=== PATIENT | male | born 1945 | race Caucasian/White ===

== ENCOUNTER 2020-07-15 09:54 | Outpatient (REF) | payer OTHER, MEDICARE, SELFPAY ==
[2020-07-15 11:20] LABS: Anion Gap 14 (12-20); Blood Urea Nitrogen 50 mg/dL (9-16); Calcium 8.8 mg/dL (8.4-10.2); Carbon Dioxide 20 mmol/L (22-29); Chloride 110 mmol/L (96-108); Estimated Glomerular Filt Rate 18; Sodium 139 mmol/L (135-145)
== END 2020-07-15 09:55 | disposition home or self-care (01) ==
LOC: HO.10HDL 09:54
PROVIDERS: Visit Provider Internal Medicine Hypertension Specialist
DX: N18.9 Chronic kidney disease, unspecified (principal); D63.1 Anemia in chronic kidney disease
CPT/HCPCS: 36415; 80051; 82310; 82565; 84520

== ENCOUNTER 2020-08-11 10:26 | Outpatient (REF) | payer OTHER, MEDICARE, SELFPAY ==
[2020-08-11 14:11] LABS: Anion Gap 16 (12-20); Blood Urea Nitrogen 45 mg/dL (9-16); Chloride 110 mmol/L (96-108); Estimated Glomerular Filt Rate 18; Potassium 5.5 mmol/l (3.3-5.1); Sodium 141 mmol/L (135-145)
[2020-08-11 14:21] LABS: Carbon Dioxide 21 mmol/L (22-29)
[2020-08-11 14:30] LABS: Prostate Specific Antigen < 0.05 ng/mL (<0.05-4.0)
== END 2020-08-11 10:27 | disposition home or self-care (01) ==
LOC: HO.10HDL 10:26
PROVIDERS: Visit Provider Internal Medicine Hypertension Specialist
DX: I12.9 Hypertensive chronic kidney disease with stage 1 through stage 4 chronic kidney disease, or unspecified chronic kidney disease (principal); D63.1 Anemia in chronic kidney disease; N18.4 Chronic kidney disease, stage 4 (severe); C61 Malignant neoplasm of prostate
CPT/HCPCS: 80051; 82565; 84153; 84520

== ENCOUNTER 2020-08-14 13:27 | Outpatient (REF) | payer OTHER, MEDICARE, SELFPAY ==
[2020-08-14 14:33] LABS: MANUAL DIFF FLAG NO
[2020-08-14 14:39] LABS: Basophils Percent Auto 0.5 % (0-2); Eosinophils Absolute Auto 0.5 X10*3/uL (0.0-0.4); Eosinophils Percent Auto 6.6 % (0-4); Hematocrit 32.6 % (42-52); Hemoglobin 10.3 g/dl (14.0-18.0); Imm Gran Abs Auto 0.01 X10*3/uL (0.00-0.03); Imm Gran Pct Auto 0.1 % (0.0-0.4); Lymphocytes Absolute Auto 1.7 X10*3/uL (1.2-4.9); Lymphocytes Percent Auto 22.8 % (20-40); Mean Corpuscular HGB Conc 31.6 g/dl (31.0-36.0); Mean Corpuscular Hemoglobin 29.2 pg (27.0-33.0); Mean Corpuscular Volume 92.4 fL (80-98); Mean Platelet Volume 10.3 fL (9.4-12.4); Monocytes Absolute Auto 0.6 X10*3/uL (0.1-1.2); Monocytes Percent Auto 7.9 % (2-11); Neutrophils Absolute Auto 4.6 X10*3/uL (2.0-8.3); Neutrophils Percent Auto 62.1 % (45-73); Platelet Count 322 X10*3/uL (160-400); Red Blood Count 3.53 X10*6/uL (4.60-5.80); Red Cell Distribution Width 15.2 % (11.0-16.0); White Blood Count 7.4 X10*3/uL (4.8-10.8)
[2020-08-14 14:57] LABS: Albumin Level 3.9 g/dL (3.5-5.0); Anion Gap 16 (12-20); Blood Urea Nitrogen 51 mg/dL (9-16); Calcium 8.2 mg/dL (8.4-10.2); Carbon Dioxide 19 mmol/L (22-29); Chloride 109 mmol/L (96-108); Estimated Glomerular Filt Rate 17; Iron 62 mcg/dL (45-160); Percent Iron Saturation 22 % (15-50); Phosphorus 4.5 mg/dL (2.7-4.5); Potassium 5.2 mmol/l (3.3-5.1); Sodium 139 mmol/L (135-145); Total Iron Binding Capacity 280 mcg/dL (228-428); Unsaturated Iron Binding 218 ug/dL
[2020-08-14 15:17] LABS: Ferritin 53 ng/mL (20-250)
== END 2020-08-14 13:28 | disposition home or self-care (01) ==
LOC: HO.LAB 13:27
PROVIDERS: PCP Internal Medicine; Visit Provider Internal Medicine Hypertension Specialist
DX: N18.9 Chronic kidney disease, unspecified (principal); D63.1 Anemia in chronic kidney disease
CPT/HCPCS: 36415; 80051; 82040; 82310; 82565; 82728; 83540; 83735; 84100; 84520; 85025

== ENCOUNTER 2020-09-12 15:22 | Emergency (ER) | payer OTHER, SELFPAY ==
--- NOTE | 2020-09-12 | XR_ITS ---
EXAMINATION: XR SHOULDER, RIGHT CLINICAL INFORMATION: Fall. Pain. COMPARISON: None TECHNIQUE: Four views of the right shoulder. FINDINGS: There is a transverse fracture through the surgical neck of the humerus with anterior displacement of the distal fracture fragment. There is a comminuted fracture through the base of the greater tuberosity of the humeral head. Humeral head remains normally articulated with the glenoid. Acromioclavicular joint is maintained. XR/XR shoulder RT min 2V IMPRESSION: Comminuted fracture of the proximal humeral neck and head.
[2020-09-12 15:32] VITALS: BP 139/69; PULSE 90; RESP 18; TEMP 36.7; O2SAT 99; BMI 22.9
--- NOTE | 2020-09-12 16:50 | ED.UPPEXIN ---
HPI - Extremity Injury (Upper) General Chief Complaint: Fall Stated Complaint: FALL Time Seen by Provider: 09/12/20 16:49 Source: patient Mode of arrival: ambulatory Limitations: no limitations History of Present Illness HPI narrative: pleasant 75-year-old male who is very active and independent presents ambulatory via triage with complaint of right shoulder pain status post fall that occurred yesterday. States he stepped on a step stool to put a star on the [place] tree and lost his footing fell onto the right shoulder has been having pain in the shoulder since. He denies any other injury. Denies any head neck or torso injury/pain. Denies taking blood thinners. Denies any lower extremity pain. MD complaint: injury to: right and shoulder Onset (ago): day(s) Other injuries: none Handedness: right Place: home Relieving factors: cold therapy and immobilization Exacerbating factors: movement of extremity Context: fall Associated symptoms: denies other symptoms Related Data Home Medications Medication Instructions Recorded Confirmed insulin glargine 100 unit/mL (3 10 unit SUBCUT BEDTIME ml 09/02/20 mL) subcutaneous pen Previous Rx's Medication Instructions Recorded blood sugar diagnostic #100 ea 07/25/20 allopurinol 100 mg tablet 100 mg PO DAILY #90 tab 09/03/20 insulin glargine 100 unit/mL (3 10 unit SUBCUT BEDTIME #3 ml 09/03/20 mL) subcutaneous pen amlodipine 10 mg tablet 10 mg PO DAILY #90 tab 09/08/20 sitagliptin 100 mg tablet 100 mg PO DAILY #90 tab 09/08/20 oxycodone 2.5 mg PO BID PRN #14 tab 09/12/20 Allergies Allergy/AdvReac Type Severity Reaction Status Date / Time No Known Allergies Allergy Unverified 06/26/20 16:27 [No Known Allergies*] Pt states no known allergy Allergy Unknown Uncoded 02/21/20 00:00 Review of Systems Review of Systems: Constitutional: No Weight loss, No Fever, No Chills, No Night Sweats, No Fatigue, No Malaise ENT/Mouth: No Hearing loss, No Ear Pain, No Nasal Congestion, No Sinus Pain, No Hoarseness, No sore throat, No Rhinorrhea, No Swallowing Difficulty Eyes: No Eye Pain, No Swelling, No Redness, No Foreign Body, No Discharge, No Vision Changes Cardiovascular: No Chest Pain, No SOB, No Dyspnea on Exertion, No Orthopnea, No Edema, No Palpitations Respiratory: No Cough, No Sputum, No Wheezing, No Smoke Exposure, No Dyspnea Gastrointestinal: No Nausea, No Vomiting, No Diarrhea, No Constipation, No abdominal Pain, No Hematochezia, No Melena Genitourinary: no irregular bleeding, No Dysuria, No Urinary Frequency, No Hematuria, No Urinary Incontinence, No Urgency, No Flank Pain, No Urinary Flow Changes, No Hesitancy Musculoskeletal: As noted in HPI Skin: No Skin Lesions, No rash Neuro: No Weakness, No Numbness, No Paresthesias, No Loss of Consciousness, No Dizziness, No Headache Psych: No Social Issues Heme/Lymph: No Bruising, No Bleeding,No Lymphadenopathy Endocrine: No Polyuria, No Polydipsia, No Temperature Intolerance Yes all other systems are reviewed and are negative [facility] Past Medical History Medical History (Updated 09/12/20 @ 19:06 by Tera Smith NP) Diabetes Social History Social History Alcohol intake: never Smoking Status: Never smoker Use of substances other than those prescribed or required for medical reasons: No Advance Directives: No Advance Directives Information Provided: Yes Physical Exam Vital Signs: Vital Signs: Last Vital Signs Temp 97.7 F 09/12/20 18:00 Pulse 81 09/12/20 18:00 Resp 16 09/12/20 18:00 BP 131/70 09/12/20 18:00 Pulse Ox 96 09/12/20 18:00 Body Mass Index 22.9 Reviewed Const: General: cooperative and healthy appearing; No acute distress or intoxicated appearing Nutritional Appearance: average body habitus Orientation/consciousness: patient oriented x3 HENMT: Head: Yes normal to inspection Ears: hearing grossly normal bilaterally Eyes: General: appearance normal, both eyes and all related structures Visual Rudolph: normal visual rudolph by confrontation Neck: Neck: Yes normal visual inspection and No tender Thyroid: Thyroid normal Chest: Chest palpation & inspection: normal inspection of the chest Resp: Effort & Inspection: normal respiratory effort Cardio: Jugular venous distension: no JVD GI: Inspection: Yes normal to inspection Percussion: Yes normal to percussion Auscultation: normal bowel sounds : General: Yes no CVA tenderness Back/Spine/Pelvis: Back: no CVA tenderness Skin: General skin exam: no rashes or lesions noted Neuro: General: patient oriented x3 Extrem: General: Yes normal to inspection Shoulder/upper arm images: 1. with diffuse slight swelling and tender palpation. Has arm and semi flexed position. Distally neurovascularly intact. Able to move fully at the elbow without pain. Cap refill less than 2 seconds. MDM - Extremity Injury (Upper) MDM Narrative Medical decision making narrative: Case discussed with orthopedic on-call Soledad SPAULDING/ attending Carmen. Recommendation for arm sling and CT for procedural planning can be discharged home with pain management and outpatient follow-up for intervention. Patient comfortable given 5 mg oxycodone here states this helped significantly. He is requesting a script for home will advise him to take this very cautiously given that this can increase the sedative risk/ fall for further injury. he will take half a tablet for pain. Supplement for Tylenol. Shoulder mobilizer given. Will follow up with orthopedics on Tuesday. Imaging Data Right shoulder CT: Radiologist's impression: [place] [id number] CT Scan Report Signed Patient: Jorge Wilder JMR#: [id number] : 4Acct:[id number] Age/Sex: 75 / MADM Date: 09/12/20 Loc: HO.ED Attending Dr: Ordering Physician: Tera Smith NP Date of Service: 09/12/20 Procedure(s): CT shoulder RT wo con Accession Number(s): [id number] cc: Tera Smith NP~ EXAMINATION: CT SHOULDER WITHOUT CONTRAST, RIGHT CLINICAL INFORMATION: Fall. Humeral fracture. COMPARISON: Prior plain film exam of the right shoulder today TECHNIQUE: Axial images obtained through the shoulder. Coronal and sagittal reformatted images are performed at CT scanner This CT examination was performed using dose optimization techniques as appropriate, variously including the following: *Automated exposure control *Adjustment of mA and/or kV according to patient size (this includes techniques or standardized protocols for targeted exams where dose is matched to indication/reason for exam; i.e. extremities or head) *Use of iterative reconstruction technique DLP: 300 mGy-cm FINDINGS: There is a comminuted fracture of the proximal humerus. Fracture extends to the surgical neck and through the humerus to the base of the greater and lesser tuberosities. The articular surface of the humerus remains intact. There is normal articulation between the humerus and the glenoid. No fracture of the scapula or of the distal clavicle. CT/CT shoulder RT wo con IMPRESSION: Comminuted fracture of the proximal right humerus. Dictated By:HARSH WASSERMAN MD Signed By:<Electronically signed by HARSH WASSERMAN MD in OV>09/12/20 1825 DD/ 1717 TD/TT: Malware Analyst: SUKUMAR Discharge Plan Discharge Clinical Impression: Closed fracture of shoulder Qualifiers: Encounter type: initial encounter Laterality: right Qualified Code(s): S42.91XA - Fracture of right shoulder girdle, part unspecified, initial encounter for closed fracture Patient Disposition: Home, Self-Care Instructions: Arm Fracture in Adults (ED), Shoulder Immobilizer (ED) Prescriptions: New oxycodone 5 mg tablet 2.5 mg PO BID PRN (Reason: pain) Qty: 14 RF: 0 No Action (DME) FreeStyle Test Strip See Rx Instructions .ROUTE .MEDSUPPLY Qty: 100 RF: 1 insulin glargine 100 unit/mL (3 mL) insulin pen 10 unit subcut BEDTIME RF: 0 insulin glargine [Lantus Solostar U-100 Insulin] 100 unit/mL (3 mL) insulin pen 10 unit subcut BEDTIME Qty: 3 RF: 2 allopurinol 100 mg tablet 100 mg PO DAILY Qty: 90 RF: 1 sitagliptin [Januvia] 100 mg tablet 100 mg PO DAILY Qty: 90 RF: 1 amlodipine 10 mg tablet 10 mg PO DAILY Qty: 90 RF: 1 Referrals: Luiz Morales MD [Physician] - 3 days Interventions: ED Discharge Assessment Last Done: 09/12/20 19:39 Discharge Date/Time: 09/12/20 19:40
--- NOTE | 2020-09-12 17:17 | CT_ITS ---
EXAMINATION: CT SHOULDER WITHOUT CONTRAST, RIGHT CLINICAL INFORMATION: Fall. Humeral fracture. COMPARISON: Prior plain film exam of the right shoulder today TECHNIQUE: Axial images obtained through the shoulder. Coronal and sagittal reformatted images are performed at CT scanner This CT examination was performed using dose optimization techniques as appropriate, variously including the following: *Automated exposure control *Adjustment of mA and/or kV according to patient size (this includes techniques or standardized protocols for targeted exams where dose is matched to indication/reason for exam; i.e. extremities or head) *Use of iterative reconstruction technique DLP: 300 mGy-cm FINDINGS: There is a comminuted fracture of the proximal humerus. Fracture extends to the surgical neck and through the humerus to the base of the greater and lesser tuberosities. The articular surface of the humerus remains intact. There is normal articulation between the humerus and the glenoid. No fracture of the scapula or of the distal clavicle. CT/CT shoulder RT wo con IMPRESSION: Comminuted fracture of the proximal right humerus.
[2020-09-12] MEDS: oxyCODONE HCl Immed Release 5 MG TABLET PO (17:56)
[2020-09-12 18:00] VITALS: BP 131/70; PULSE 81; RESP 16; TEMP 36.5; O2SAT 96
== END 2020-09-12 19:40 | disposition home or self-care (01) ==
PROVIDERS: Emergency Provider Emergency Medicine; PCP Internal Medicine
DX: S42.91XA Fracture of right shoulder girdle, part unspecified, initial encounter for closed fracture (principal); M25.511 Pain in right shoulder; W01.0XXA Fall on same level from slipping, tripping and stumbling without subsequent striking against object, initial encounter; Y93.9 Activity, unspecified; Y92.009 Unspecified place in unspecified non-institutional (private) residence as the place of occurrence of the external cause; Y99.9 Unspecified external cause status; Z79.899 Other long term (current) drug therapy
CPT/HCPCS: 73030; 73200; 99284

== ENCOUNTER → 2020-09-16 12:06 | Outpatient (BNVA) | payer OTHER, SELFPAY | PROVIDERS: PCP Internal Medicine; Visit Provider Physician Assistant | DX: Z76.89 Persons encountering health services in other specified circumstances (principal) ==

== ENCOUNTER → 2020-09-30 10:14 | Outpatient (BNVA) | payer OTHER, SELFPAY | PROVIDERS: PCP Internal Medicine; Referring Provider Internal Medicine; Visit Provider Urology | DX: Z76.89 Persons encountering health services in other specified circumstances (principal) ==

== ENCOUNTER 2020-10-16 08:14 | Outpatient (REF) | payer OTHER, SELFPAY ==
--- NOTE | 2020-10-16 13:23 | XR_ITS ---
EXAMINATION: XR SHOULDER, RIGHT CLINICAL INFORMATION: Fracture of upper and off right humerus. COMPARISON: Radiographs of the right shoulder done on 09/12/2020. TECHNIQUE: Two views of the right shoulder. FINDINGS: Comminuted fracture is noted within the proximal right humerus. The glenoid humeral alignment is intact. No significant callus formation since the prior study dated 09/12/2020. The acromioclavicular alignment is intact. Small subacromial spur is present. XR/XR shoulder RT min 2V IMPRESSION: 1. Comminuted of right proximal humeral fracture showing no significant callus formation since the prior study dated 09/12/2020. 2. No new abnormalities.
== END 2020-10-16 08:15 | disposition home or self-care (01) ==
LOC: HO.HOSX 08:14
PROVIDERS: Visit Provider Physician Assistant
DX: S42.201D Unspecified fracture of upper end of right humerus, subsequent encounter for fracture with routine healing (principal)
CPT/HCPCS: 73030

== ENCOUNTER 2020-10-23 11:34 | Outpatient (REF) | payer OTHER, SELFPAY ==
[2020-10-23 13:40] LABS: MANUAL DIFF FLAG NO
[2020-10-23 13:47] LABS: Basophils Percent Auto 0.4 % (0-2); Eosinophils Absolute Auto 0.7 X10*3/uL (0.0-0.4); Eosinophils Percent Auto 9.5 % (0-4); Imm Gran Abs Auto 0.02 X10*3/uL (0.00-0.03); Imm Gran Pct Auto 0.3 % (0.0-0.4); Lymphocytes Absolute Auto 1.5 X10*3/uL (1.2-4.9); Lymphocytes Percent Auto 21.9 % (20-40); Mean Corpuscular Hemoglobin 29.5 pg (27.0-33.0); Mean Corpuscular Volume 92.3 fL (80-98); Mean Platelet Volume 10.3 fL (9.4-12.4); Monocytes Absolute Auto 0.6 X10*3/uL (0.1-1.2); Monocytes Percent Auto 9.2 % (2-11); Neutrophils Absolute Auto 4.1 X10*3/uL (2.0-8.3); Neutrophils Percent Auto 58.7 % (45-73); Platelet Count 262 X10*3/uL (160-400); Red Blood Count 2.71 X10*6/uL (4.60-5.80); Red Cell Distribution Width 15.3 % (11.0-16.0)
[2020-10-23 14:15] LABS: Anion Gap 15 (12-20); Blood Urea Nitrogen 38 mg/dL (9-16); Carbon Dioxide 21 mmol/L (22-29); Chloride 109 mmol/L (96-108); Estimated Glomerular Filt Rate 18; Iron 41 mcg/dL (45-160); Percent Iron Saturation 16 % (15-50); Potassium 4.9 mmol/l (3.3-5.1); Sodium 140 mmol/L (135-145); Total Iron Binding Capacity 256 mcg/dL (228-428); Unsaturated Iron Binding 215 ug/dL; Uric Acid 5.8 mg/dL (3.4-7.0)
[2020-10-23 15:33] LABS: Prostate Specific Antigen < 0.05 ng/mL (<0.05-4.0)
== END 2020-10-23 11:35 | disposition home or self-care (01) ==
LOC: HO.10HDL 11:34
PROVIDERS: Visit Provider Urology
DX: I12.9 Hypertensive chronic kidney disease with stage 1 through stage 4 chronic kidney disease, or unspecified chronic kidney disease (principal); N18.9 Chronic kidney disease, unspecified; D63.1 Anemia in chronic kidney disease; C61 Malignant neoplasm of prostate; Z12.5 Encounter for screening for malignant neoplasm of prostate
CPT/HCPCS: 36415; 80051; 82565; 83540; 84153; 84520; 84550; 85025

== ENCOUNTER 2020-11-24 12:05 | Outpatient (REF) | payer OTHER, SELFPAY ==
[2020-11-24 12:33] LABS: MANUAL DIFF FLAG NO
[2020-11-24 12:36] LABS: Basophils Absolute Auto 0.1 X10*3/uL (0.0-0.2); Basophils Percent Auto 0.7 % (0-2); Eosinophils Absolute Auto 0.6 X10*3/uL (0.0-0.4); Eosinophils Percent Auto 7.9 % (0-4); Hematocrit 30.7 % (42-52); Hemoglobin 9.6 g/dl (14.0-18.0); Imm Gran Abs Auto 0.02 X10*3/uL (0.00-0.03); Imm Gran Pct Auto 0.3 % (0.0-0.4); Lymphocytes Absolute Auto 1.5 X10*3/uL (1.2-4.9); Lymphocytes Percent Auto 20.6 % (20-40); Mean Corpuscular HGB Conc 31.3 g/dl (31.0-36.0); Mean Corpuscular Hemoglobin 29.9 pg (27.0-33.0); Mean Corpuscular Volume 95.6 fL (80-98); Mean Platelet Volume 9.8 fL (9.4-12.4); Monocytes Absolute Auto 0.5 X10*3/uL (0.1-1.2); Monocytes Percent Auto 7.5 % (2-11); Neutrophils Absolute Auto 4.6 X10*3/uL (2.0-8.3); Platelet Count 306 X10*3/uL (160-400); Red Blood Count 3.21 X10*6/uL (4.60-5.80); Red Cell Distribution Width 16.3 % (11.0-16.0); White Blood Count 7.2 X10*3/uL (4.8-10.8)
[2020-11-24 13:20] LABS: Anion Gap 13 (12-20); Blood Urea Nitrogen 35 mg/dL (9-16); Calcium 8.8 mg/dL (8.4-10.2); Carbon Dioxide 24 mmol/L (22-29); Chloride 110 mmol/L (96-108); Estimated Glomerular Filt Rate 18; Iron 45 mcg/dL (45-160); Percent Iron Saturation 16 % (15-50); Potassium 4.9 mmol/L (3.3-5.1); Sodium 142 mmol/L (135-145); Total Iron Binding Capacity 280 mcg/dL (228-428); Unsaturated Iron Binding 235 ug/dL
== END 2020-11-24 12:06 | disposition home or self-care (01) ==
LOC: HO.LAB 12:05
PROVIDERS: PCP Internal Medicine; Visit Provider Internal Medicine Hypertension Specialist
DX: Z13.89 Encounter for screening for other disorder (principal)
CPT/HCPCS: 36415; 80051; 82310; 82565; 83540; 84520; 85025

== ENCOUNTER 2020-11-27 12:26 | Outpatient (REF) | payer OTHER, SELFPAY ==
--- NOTE | ~2020-11-27 | XR_ITS ---
EXAMINATION: XR SHOULDER, RIGHT CLINICAL INFORMATION: Comminuted fracture proximal right humerus. Follow-up. COMPARISON: Radiographs right shoulder 10/16/2020, 09/12/2020 TECHNIQUE: Right shoulder is imaged in 2 views. FINDINGS: Comminuted fracture right humeral head and neck is stable in alignment from prior study. The fracture lines are still visible although slightly less distinct. There is no destructive process. The acromioclavicular alignment is normal. XR/XR shoulder RT min 2V IMPRESSION: No change in alignment comminuted fracture right humeral head and neck.
== END 2020-11-27 12:27 | disposition home or self-care (01) ==
LOC: HO.HOSX 12:26
PROVIDERS: Visit Provider Physician Assistant
DX: S42.201D Unspecified fracture of upper end of right humerus, subsequent encounter for fracture with routine healing (principal); X58.XXXD Exposure to other specified factors, subsequent encounter; E11.9 Type 2 diabetes mellitus without complications; E78.5 Hyperlipidemia, unspecified; C61 Malignant neoplasm of prostate
CPT/HCPCS: 73030

== ENCOUNTER 2020-12-18 11:39 | Outpatient (REF) | payer OTHER, SELFPAY ==
[2020-12-18 14:24] LABS: Anion Gap 11 (12-20); Blood Urea Nitrogen 47 mg/dL (9-16); Calcium 8.6 mg/dL (8.4-10.2); Carbon Dioxide 24 mmol/L (22-29); Chloride 109 mmol/L (96-108); Estimated Glomerular Filt Rate 18; Potassium 5.2 mmol/L (3.3-5.1); Sodium 139 mmol/L (135-145)
[2020-12-18 14:47] LABS: Prostate Specific Antigen < 0.05 ng/mL (<0.05-4.0)
== END 2020-12-18 11:40 | disposition home or self-care (01) ==
LOC: HO.10HDL 11:39
PROVIDERS: Absent Provider Internal Medicine Hypertension Specialist; Visit Provider Urology
DX: C61 Malignant neoplasm of prostate (principal)
CPT/HCPCS: 36415; 80051; 82310; 82565; 84153; 84520

== ENCOUNTER → 2020-12-30 13:12 | Outpatient (BNVA) | payer OTHER, SELFPAY | PROVIDERS: PCP Internal Medicine; Visit Provider Urology | DX: C61 Malignant neoplasm of prostate (principal); M85.80 Other specified disorders of bone density and structure, unspecified site; E11.9 Type 2 diabetes mellitus without complications; I10 Essential (primary) hypertension; Z79.899 Other long term (current) drug therapy | CPT/HCPCS: 96372; J9217 ==

== ENCOUNTER 2021-01-08 09:21 | Outpatient (REF) | payer OTHER, SELFPAY ==
--- NOTE | ~2021-01-08 | XR_ITS ---
EXAMINATION: XR SHOULDER, RIGHT CLINICAL INFORMATION: Fracture of the upper humerus COMPARISON: 11/27/2020 TECHNIQUE: Two views of the right shoulder. FINDINGS: Redemonstration of the right humeral neck fracture. Alignment is unchanged from prior. Callus formation is seen, increased from the prior study. The fracture line remains evident. The glenohumeral joint remains aligned. The acromioclavicular joint is intact with subacromial spurring noted. The visualized lung is clear. The visualized ribs are intact. XR/XR shoulder RT min 2V IMPRESSION: Unchanged alignment of the right humeral neck fracture with continued healing.
== END 2021-01-08 09:22 | disposition home or self-care (01) ==
LOC: HO.HOSX 09:21
PROVIDERS: Visit Provider Physician Assistant
DX: S42.201D Unspecified fracture of upper end of right humerus, subsequent encounter for fracture with routine healing (principal); X58.XXXD Exposure to other specified factors, subsequent encounter
CPT/HCPCS: 73030

== ENCOUNTER 2021-01-08 11:58 | Outpatient (REF) | payer OTHER, SELFPAY ==
[2021-01-08 13:26] LABS: Hematocrit 30.4 % (42-52); Hemoglobin 9.6 g/dl (14.0-18.0); Mean Corpuscular HGB Conc 31.6 g/dl (31.0-36.0); Mean Corpuscular Hemoglobin 29.1 pg (27.0-33.0); Mean Corpuscular Volume 92.1 fL (80-98); Platelet Count 276 X10*3/uL (160-400); Red Cell Distribution Width 14.6 % (11.0-16.0); White Blood Count 9.5 X10*3/uL (4.8-10.8)
[2021-01-08 13:50] LABS: Anion Gap 14 (12-20); Blood Urea Nitrogen 47 mg/dL (9-16); Calcium 8.9 mg/dL (8.4-10.2); Carbon Dioxide 22 mmol/L (22-29); Chloride 109 mmol/L (96-108); Estimated Glomerular Filt Rate 16; Potassium 5.3 mmol/L (3.3-5.1); Sodium 140 mmol/L (135-145)
== END 2021-01-08 11:59 | disposition home or self-care (01) ==
LOC: HO.LAB 11:58
PROVIDERS: PCP Internal Medicine; Visit Provider Internal Medicine Hypertension Specialist
DX: S42.201D Unspecified fracture of upper end of right humerus, subsequent encounter for fracture with routine healing (principal); N18.4 Chronic kidney disease, stage 4 (severe)
CPT/HCPCS: 36415; 80051; 82310; 82565; 84520; 85027

== ENCOUNTER 2021-01-27 11:37 | Outpatient (REF) | payer OTHER, SELFPAY ==
[2021-01-27 13:50] LABS: MANUAL DIFF FLAG NO
[2021-01-27 13:56] LABS: Basophils Percent Auto 0.6 % (0-2); Eosinophils Absolute Auto 0.5 X10*3/uL (0.0-0.4); Eosinophils Percent Auto 7.4 % (0-4); Hematocrit 31.3 % (42-52); Hemoglobin 9.8 g/dl (14.0-18.0); Imm Gran Abs Auto 0.02 X10*3/uL (0.00-0.03); Imm Gran Pct Auto 0.3 % (0.0-0.4); Lymphocytes Absolute Auto 1.3 X10*3/uL (1.2-4.9); Lymphocytes Percent Auto 19.5 % (20-40); Mean Corpuscular HGB Conc 31.3 g/dl (31.0-36.0); Mean Corpuscular Hemoglobin 29.3 pg (27.0-33.0); Mean Corpuscular Volume 93.7 fL (80-98); Mean Platelet Volume 10.2 fL (9.4-12.4); Monocytes Absolute Auto 0.5 X10*3/uL (0.1-1.2); Monocytes Percent Auto 7.6 % (2-11); Neutrophils Absolute Auto 4.2 X10*3/uL (2.0-8.3); Neutrophils Percent Auto 64.6 % (45-73); Platelet Count 278 X10*3/uL (160-400); Red Blood Count 3.34 X10*6/uL (4.60-5.80); Red Cell Distribution Width 15.9 % (11.0-16.0); White Blood Count 6.5 X10*3/uL (4.8-10.8)
[2021-01-27 14:30] LABS: Anion Gap 14 (12-20); Blood Urea Nitrogen 51 mg/dL (9-16); Calcium 8.6 mg/dL (8.4-10.2); Carbon Dioxide 23 mmol/L (22-29); Chloride 108 mmol/L (96-108); Estimated Glomerular Filt Rate 15; Iron 66 mcg/dL (45-160); Percent Iron Saturation 30 % (15-50); Potassium 4.8 mmol/L (3.3-5.1); Sodium 140 mmol/L (135-145); Total Iron Binding Capacity 219 mcg/dL (228-428); Unsaturated Iron Binding 153 ug/dL
[2021-01-27 14:41] LABS: Ferritin 244 ng/mL (20-250)
[2021-01-28 12:56] LABS: Calcium (PTHI) 8.9 mg/dL (8.6-10.3); PTHI 86 pg/mL (14-64)
== END 2021-01-27 11:38 | disposition home or self-care (01) ==
LOC: HO.10HDL 11:37
PROVIDERS: Visit Provider Internal Medicine Hypertension Specialist
DX: N18.5 Chronic kidney disease, stage 5 (principal); D63.1 Anemia in chronic kidney disease
CPT/HCPCS: 36415; 80051; 82310; 82565; 82728; 83540; 83970; 84520; 85025; 88184; 88185

== ENCOUNTER 2021-03-17 11:49 | Outpatient (REF) | payer OTHER, SELFPAY ==
[2021-03-17 12:33] LABS: MANUAL DIFF FLAG NO
[2021-03-17 12:38] LABS: Basophils Percent Auto 0.5 % (0-2); Eosinophils Absolute Auto 0.2 X10*3/uL (0.0-0.4); Eosinophils Percent Auto 3.2 % (0-4); Hematocrit 25.7 % (42-52); Hemoglobin 8.4 g/dl (14.0-18.0); Imm Gran Abs Auto 0.02 X10*3/uL (0.00-0.03); Imm Gran Pct Auto 0.3 % (0.0-0.4); Lymphocytes Absolute Auto 1.2 X10*3/uL (1.2-4.9); Mean Corpuscular HGB Conc 32.7 g/dl (31.0-36.0); Mean Corpuscular Hemoglobin 30.3 pg (27.0-33.0); Mean Corpuscular Volume 92.8 fL (80-98); Mean Platelet Volume 10.2 fL (9.4-12.4); Monocytes Absolute Auto 0.6 X10*3/uL (0.1-1.2); Monocytes Percent Auto 8.7 % (2-11); Neutrophils Absolute Auto 4.4 X10*3/uL (2.0-8.3); Neutrophils Percent Auto 68.3 % (45-73); Platelet Count 239 X10*3/uL (160-400); Red Blood Count 2.77 X10*6/uL (4.60-5.80); Red Cell Distribution Width 15.4 % (11.0-16.0); White Blood Count 6.5 X10*3/uL (4.8-10.8)
[2021-03-17 13:13] LABS: Anion Gap 14 (12-20); Blood Urea Nitrogen 54 mg/dL (9-16); Calcium 9.3 mg/dL (8.4-10.2); Carbon Dioxide 21 mmol/L (22-29); Chloride 111 mmol/L (96-108); Estimated Glomerular Filt Rate 13; Iron 49 mcg/dL (45-160); Percent Iron Saturation 23 % (15-50); Potassium 4.5 mmol/L (3.3-5.1); Sodium 141 mmol/L (135-145); Total Iron Binding Capacity 209 mcg/dL (228-428); Unsaturated Iron Binding 160 ug/dL
[2021-03-17 13:17] LABS: Prostate Specific Antigen < 0.05 ng/mL (<0.05-4.0)
[2021-03-17 13:26] LABS: Ferritin 472 ng/mL (20-250)
[2021-03-21 12:31] LABS: Testosterone, Total 4 ng/dL (250-1100)
== END 2021-03-17 11:50 | disposition home or self-care (01) ==
LOC: HO.LAB 11:49
PROVIDERS: Urology; PCP Internal Medicine; Visit Provider Internal Medicine Hypertension Specialist
DX: D50.8 Other iron deficiency anemias (principal); N18.5 Chronic kidney disease, stage 5; D63.1 Anemia in chronic kidney disease; C61 Malignant neoplasm of prostate; N40.1 Benign prostatic hyperplasia with lower urinary tract symptoms; N13.8 Other obstructive and reflux uropathy; Z12.5 Encounter for screening for malignant neoplasm of prostate
CPT/HCPCS: 36415; 80051; 82310; 82565; 82728; 83540; 84153; 84403; 84520; 85025

== ENCOUNTER → 2021-03-31 11:05 | Outpatient (BNVA) | payer OTHER, MEDICARE, SELFPAY | PROVIDERS: PCP Internal Medicine; Visit Provider Urology ==

== ENCOUNTER → 2021-04-02 12:40 | Outpatient (BNVA) | payer OTHER, MEDICARE, SELFPAY | PROVIDERS: Visit Provider Physician Assistant ==

== ENCOUNTER → 2021-04-15 14:09 | Outpatient (BNVA) | payer OTHER, MEDICARE, SELFPAY | PROVIDERS: PCP Internal Medicine; Referring Provider Internal Medicine; Visit Provider Internal Medicine | DX: E11.22 Type 2 diabetes mellitus with diabetic chronic kidney disease (principal); I12.9 Hypertensive chronic kidney disease with stage 1 through stage 4 chronic kidney disease, or unspecified chronic kidney disease; N18.5 Chronic kidney disease, stage 5; E78.5 Hyperlipidemia, unspecified; R94.39 Abnormal result of other cardiovascular function study | CPT/HCPCS: 93005 ==

== ENCOUNTER 2021-06-30 13:15 | Outpatient (REF) | payer OTHER, MEDICARE, SELFPAY ==
--- NOTE | ~2021-06-30 | MM_ITS ---
EXAMINATION: BONE DENSITOMETRY CLINICAL INDICATION: Other specified disorders of bone density and structure. COMPARISON: This is the patient's baseline examination. TECHNIQUE: Using a [employer] DXA System (software version: 13.1) manufactured by [employer], dual-energy x-ray absorptiometry was performed of the lumbar spine and left hip. The images are of good technical quality. Summary results are attached. FINDINGS: AP SPINE L1-L4 (excluding L3): The data of L1-L4 has been changed to exclude the L3 vertebral body, because degenerative sclerosis at this level may cause overestimation of lumbar spine density. BMD 1.121 g/cm2, Z-score 0.1, T-score -0.7, normal. LEFT FEMUR, NECK: BMD 0.635 g/cm2, Z-score -1.8, T-score -3.3, osteoporosis. LEFT FEMUR, TOTAL: BMD 1.220 g/cm2, Z-score 1.9, T-score 0.8, normal. IDENTIFIED RISK FACTORS: Kidney disease, history of fracture (adult). HISTORY OF FRACTURE: Humerus/shoulder. MEDICATIONS: Vitamin D. MM/XR DEXA axial skeleton IMPRESSION: 1. DIAGNOSIS: Severe osteoporosis based on the lowest T-score value of -3.3 in the femoral neck and fracture history applying World Health Organization criteria. 2. 10-YEAR FRACTURE RISK PREDICTION, FRAX: Major osteoporotic fracture (clinical spine, forearm, hip or shoulder) 20.9%. Hip fracture 10.2%. 3. Treatment Recommendations: NOF guidelines recommend consideration for treatment in postmenopausal women and men age 50 and older presenting with the following: -A hip or vertebral (clinical or morphometric) fracture. -T-score less than or equal to -2.5 at the femoral neck or spine after appropriate evaluation to exclude secondary causes. -Low bone mass at the hip or spine and a 10-year fracture probability by FRAX of greater than or equal to 3% for hip fracture or greater than or equal to 20% for major osteoporotic fracture based on the [place] adapted WHO algorithm. 4. Other Recommendations: All treatment decisions require clinical judgment and consideration of individual patient factors, including patient preferences, comorbidities, previous drug use, risk factors not captured in the FRAX model (e.g. frailty, falls, vitamin D deficiency, increased bone turnover, interval significant decline in bone density) and possible under or overestimation of fracture risk by FRAX. Additional medical evaluation for secondary cause of low bone mineral density may be appropriate. FUTURE SCAN RECOMMENDATION: People with diagnosed cases of osteoporosis or at high risk for fracture should have regular bone mineral density tests. For patients eligible for Medicare, routine testing is allowed once every 2 years. The testing frequency can be increased to one year for patients who have rapidly progressing disease, those who are receiving or discontinuing medical therapy to restore bone mass, or have additional risk factors.
== END 2021-06-30 13:16 | disposition home or self-care (01) ==
LOC: HO.MAMMO 13:15
PROVIDERS: Visit Provider Urology
DX: Z13.820 Encounter for screening for osteoporosis (principal); M85.80 Other specified disorders of bone density and structure, unspecified site; M81.0 Age-related osteoporosis without current pathological fracture; N18.9 Chronic kidney disease, unspecified; Z87.81 Personal history of (healed) traumatic fracture; Z79.899 Other long term (current) drug therapy
CPT/HCPCS: 77080

== ENCOUNTER 2021-07-02 13:41 | Outpatient (REF) | payer OTHER, MEDICARE, SELFPAY ==
--- NOTE | ~2021-07-02 | XR_ITS ---
EXAMINATION: XR SHOULDER, RIGHT CLINICAL INFORMATION: Pain right shoulder COMPARISON: Right shoulder radiograph from 01/08/2021 TECHNIQUE: Two views of the right shoulder. FINDINGS: Redemonstration of a chronic fracture involving the right humeral neck with post fracture deformity. No acute visible fracture or dislocation. Joint spaces and alignment are otherwise maintained. Soft tissues are unremarkable. Visualized portions of the right chest are unremarkable. XR/XR shoulder RT min 2V IMPRESSION: 1. Redemonstration of a chronic fracture involving the right humeral neck with post fracture deformity. 2. No acute visible fracture or dislocation.
== END 2021-07-02 13:42 | disposition home or self-care (01) ==
LOC: HO.HOSX 13:41
PROVIDERS: Visit Provider Physician Assistant
DX: S42.401D Unspecified fracture of lower end of right humerus, subsequent encounter for fracture with routine healing (principal)
CPT/HCPCS: 73030

== ENCOUNTER 2021-07-07 12:00 | Outpatient (RCR) | payer OTHER, SELFPAY ==
--- NOTE | 2020-09-23 13:28 | MHC.PT.EP ---
[facility] [place] Office [place] Office [place] Office [address] Geraldine Sheth [address] [phone] F: [phone] F: [phone] F: [phone] F: [phone] Physical Therapy Plan of Care Date of Evaluation: 09/23/20 Date of Surgery: N/A Diagnosis: fracture of humerus Assessment: pt presents to PT 11 days post-fx. He has poor tolerance of passive ROM and requires assistance from his for all tasks. He does present w/ significant swelling and bruising of R UE and it is unclear if this is improving or worsening since initial injury. pt presents to physical therapy with pain, decreased range of motion, decreased strength, impaired functional mobility, impaired postural awareness, and gait deviations. pt is a fair candidate for skilled PT due to age, potential remediation of impairments, typical disease/condition progression and prognosis, comorbidities, and motivation. pt would benefit from tailored strengthening and stretching exercise program, functional training, postural re-training, neuromuscular re-education, modalities as needed for pain, and equipment safety demonstration. Frequency and Duration: The patient will be seen 2x/wk for 4 wks Short Term Goals: pt will be min A w/ HEP to promote supervised and assisted maintenance of his post-fracture status. pt's will don/doff sling I to assist pt in maintaining protected R UE status to promote bony healing. Reporting Process Consultant Goals: pt will improve R shoulder flexion PROM to 90 deg to progress protocol. pt will improve R shoulder ER PROM to neutral to progress protocol. Treatment Plan: Modalities to reduce pain, spasms and effusion. Manual therapy to restore motion and function. Therapeutic exercise to improve strength and flexibility. Neuromuscular re-education for posture and balance. Therapeutic activities to return to functional activities of daily living. Electronically signed by: Vickie Knott PT, DPT Please sign and return to therapist. Thank you for your referral.
--- NOTE | 2021-07-07 14:05 | MHC.PT.DC ---
[facility] [place] Office [place] Office [place] Office [address] Geraldine Sheth [address] [phone] F: [phone] F: [phone] F: [phone] F: [phone] Physical Therapy Discharge Report Diagnosis: fracture of humerus Date of Surgery: N/A Date of Evaluation: 09/23/20 Date of Discharge: 07/07/21 Treatments to Date: 63 Cancellations to Date: 13 No Shows to Date: 0 Discharge Status: Improved Function Independent with HEP Discharge Summary: The patient is independent with his home exercise program. He has been consistently reporting 1-2/10 soreness prior to his sessions. He has not made any further progress regarding his strength or range of motion. He had a follow up with the orthopedic last week where his xrays demonstrated good bony healing. He is discharged from this physical therapy plan of care to his home exercise program. Electronically signed by: Vickie Knott PT, DPT Please sign and return to therapist. Thank you for your referral.
== END 2021-07-07 14:05 | disposition home or self-care (01) ==
LOC: HO.PT 12:00
PROVIDERS: Visit Provider Physician Assistant
DX: S42.201D Unspecified fracture of upper end of right humerus, subsequent encounter for fracture with routine healing (principal)
CPT/HCPCS: 97110; 97116; 97140; 97150; 97162; J9217

== ENCOUNTER 2021-07-15 11:07 | Outpatient (REF) | payer OTHER, MEDICARE, SELFPAY ==
[2021-07-15 14:35] LABS: Prostate Specific Antigen < 0.05 ng/mL (<0.05-4.0)
[2021-07-20 11:07] LABS: Testosterone, Total 4 ng/dL (250-1100)
== END 2021-07-15 11:08 | disposition home or self-care (01) ==
LOC: HO.10HDL 11:07
PROVIDERS: Visit Provider Urology
DX: Z12.5 Encounter for screening for malignant neoplasm of prostate (principal); C61 Malignant neoplasm of prostate
CPT/HCPCS: 36415; 84153; 84403

== ENCOUNTER → 2021-07-30 10:42 | Outpatient (BNVA) | payer OTHER, MEDICARE, SELFPAY | PROVIDERS: Visit Provider Urology ==

== ENCOUNTER 2021-10-13 11:36 | Outpatient (REF) | payer OTHER, SELFPAY ==
[2021-10-13 13:57] LABS: Anion Gap 16 (12-20); Blood Urea Nitrogen 56 mg/dL (9-16); Calcium 9.7 mg/dL (8.4-10.2); Carbon Dioxide 19 mmol/L (22-29); Chloride 114 mmol/L (96-108); Estimated Glomerular Filt Rate 13; Sodium 144 mmol/L (135-145)
== END 2021-10-13 11:37 | disposition home or self-care (01) ==
LOC: HO.10HDL 11:36
PROVIDERS: Visit Provider Internal Medicine Hypertension Specialist
DX: I12.0 Hypertensive chronic kidney disease with stage 5 chronic kidney disease or end stage renal disease (principal); N18.4 Chronic kidney disease, stage 4 (severe); D63.1 Anemia in chronic kidney disease; D50.8 Other iron deficiency anemias
CPT/HCPCS: 36415; 80051; 82310; 82565; 84520

== ENCOUNTER 2021-11-10 11:11 | Outpatient (REF) | payer OTHER, SELFPAY ==
[2021-11-10 14:54] LABS: Prostate Specific Antigen < 0.05 ng/mL (<0.05-4.0)
[2021-11-14 08:22] LABS: Testosterone, Total 42 ng/dL (250-1100)
== END 2021-11-10 11:12 | disposition home or self-care (01) ==
LOC: HO.10HDL 11:11
PROVIDERS: Visit Provider Urology
DX: Z12.5 Encounter for screening for malignant neoplasm of prostate (principal); C61 Malignant neoplasm of prostate
CPT/HCPCS: 36415; 84153; 84403

== ENCOUNTER → 2021-12-01 12:51 | Outpatient (BNVA) | payer OTHER, SELFPAY | PROVIDERS: PCP Internal Medicine; Visit Provider Urology | DX: N40.1 Benign prostatic hyperplasia with lower urinary tract symptoms (principal); M81.8 Other osteoporosis without current pathological fracture; C61 Malignant neoplasm of prostate; T38.7X5A Adverse effect of androgens and anabolic congeners, initial encounter | CPT/HCPCS: 96372; J0897 ==

== ENCOUNTER → 2022-03-25 10:23 | Outpatient (REF) | payer OTHER, SELFPAY ==
--- NOTE | 2022-03-25 10:26 | CA_ITS ---
Transthoracic Echocardiogram Patient (Last, First, Middle): Jorge Wilder J Gender: Male Date of : 1945 Age: 76 Procedure Date: 03/25/2022 Procedure Type: Transthoracic Echocardiogram Location: OP Height: 170.18 cm Weight: 72.58 kg BSA: 1.84 m2 Heart Rate: 71 bpm BP: 136 / 74 mmHg District Recruiter: SB Referring MD: Vasquez Chang MD Primer Charging Tool Setter: Huey Llanes MD Symptoms: R94.39 - Abnormal result of other cardiovascular function... Study Quality: Adequate ECG Rhythm: Sinus Conclusions: - 1. Normal LV systolic function with LVEF of 55-60% with pseudonormal filling pattern 2. Mildly dilated left atrium 3. Normal cardiac valvular Doppler 4. Normal RV systolic pressure 5. No pericardial effusion Findings Left Ventricle Normal left ventricular size, thickness, and systolic function. The visually estimated ejection fraction is between 55-60%. Spectral Doppler is indicative of a pseudonormal filling pattern. Peak GLS is -16.6%, mildly reduced. Right Ventricle Normal right ventricular cavity size and systolic function. Atria The left atrium is mildly dilated. Interatrial shunt cannot be excluded. The right atrium is normal in size. Aortic Valve Normal aortic valve structure and function. There is no aortic valve stenosis. There is no aortic valve regurgitation. Mitral Valve Normal mitral valve structure and function. There is trace mitral valve regurgitation. There is no mitral valve stenosis. Pulmonic Valve The pulmonic valve is likely normal. There is trace pulmonic valve regurgitation. Tricuspid Valve Normal tricuspid valve structure. There is trace tricuspid valve regurgitation. The right ventricular systolic pressure is normal. The right ventricular systolic pressure is 32 mmHg. Normal right atrial pressure. There is no evidence of pulmonary hypertension. Great Vessels All visible segments of the aorta are normal in size. The pulmonary artery was not well visualized. Venous The inferior vena cava is normal in size and collapses greater than 50% with inspiration. Pericardium/Pleural There is no evidence of pericardial effusion. Measurements 2D Linear Measurements IVSd: 1.18 0.6-0.9/0.6-1.0 cm LVIDd: 5.50 3.9-5.3/4.2-5.9 cm LVIDd Index: 2.99 2.4-3.2/2.2-3.1 cm/m2 LVIDs: 3.78 2.0-3.6 cm LVPWd: 0.92 0.7-1.1 cm LA Diam: 4.20 2.7-3.8/3.0-4.0 cm LAIDs Index: 2.28 1.5-2.3 cm/m2 LV Mass: 283.14 67-162/88-224 g LV Mass Index: 153.88 43-95/49-115 g/m2 LVOT Diam: 2.40 3.0+(-)1.3 cm 2D Systolic Function EF 4C: 57.50 >55% EF 2C: 42.20 >55% Mitral Valve MV Pk E: 0.85 MV PK A: 0.69 MV Decel Time: 199.00 E/A: 1.20 E'Lateral: 5.87 E'Medial: 5.44 E/E' Med: 15.50 E/E' Lat: 14.40 PHT: 58.00 MVA PHT: 3.79 Decel [place]: 4.25 Aortic Valve AoV Pk Jl: 2.16 AoV Mn Jl: 1.50 AoV VTI: 0.49 AoV Pk Grad: 19.00 Aov Mn Grad: 10.00 MARY BETH Cont.VTI: 2.21 LVOT LVOT Pk Jl: 0.99 LVOT Mn Jl: 0.70 LVOT VTI: 0.24 LVOT Pk Grad: 4.00 LVOT Mn Grad: 2.00 LVOT Diam: 2.40 LVOT Area: 4.52 Diastolic Function MV Pk E: 0.85 MV Pk A: 0.69 E/A: 1.20 E'Medial: 5.44 E/E' Med: 15.50 E' Laterial: 5.87 E/E' Lat: 14.40 Right Ventricle TAPSE (mm): 26.20 TVS' Jl: 14.30 Tricuspid Valve TR Pk Jl: 2.69 TR Pk Grad: 29.00 RA Press: 3.00 RVSP: 32.00 Great Vessels Aorta Sinus of Valsalva: 2.93 2.0-3.5 cm Ao Asc: 3.20 2.1-3.4 cm Pulmonary Veins Pulm Vein S/D 1.10 Pulmonary Valve PV Pk Jl: 1.30 Peak PV Grad: 7.00 Updated in Other Vendor System with Status of Final Huey Llanes MD electronically signed on 03/25/2022 11:57:09 AM with status of Final
== END ==
LOC: HO.CARD 10:23
PROVIDERS: Visit Provider Internal Medicine
DX: R94.39 Abnormal result of other cardiovascular function study (principal)
CPT/HCPCS: 93306; 93356

== ENCOUNTER 2022-04-14 10:47 | Outpatient (REF) | payer OTHER, SELFPAY ==
[2022-04-14 11:55] LABS: Hematocrit 27.9 % (42.0-52.0); Hemoglobin 9.1 g/dl (14.0-18.0); Mean Corpuscular HGB Conc 32.6 g/dl (31.0-36.0); Mean Corpuscular Hemoglobin 29.6 pg (27.0-33.0); Mean Corpuscular Volume 90.9 fL (80.0-98.0); Mean Platelet Volume 10.7 fL (9.4-12.4); Platelet Count 246 X10*3/uL (160-400); Red Blood Count 3.07 X10*6/uL (4.60-5.80); Red Cell Distribution Width 15.3 % (11.0-16.0); White Blood Count 8.7 X10*3/uL (4.8-10.8)
[2022-04-14 12:05] LABS: Estimated Average Glucose 180 mg/dL; Hemoglobin A1c % 7.9 %
[2022-04-14 12:37] LABS: Thyroid Stimulating Hormone 3.39 uIU/mL (0.32-4.0)
[2022-04-14 13:42] LABS: Alanine Aminotransferase 10 U/L (0-40); Albumin Level 4.2 g/dL (3.5-5.0); Alkaline Phosphatase 82 U/L (39-117); Anion Gap 14 (12-20); Aspartate Amino Transferase 11 U/L (5-37); Bilirubin Direct 0.2 mg/dL (0.0-0.5); Bilirubin Total 0.5 mg/dL (0.0-1.0); Blood Urea Nitrogen 49 mg/dL (9-16); Calcium 9.5 mg/dL (8.4-10.2); Carbon Dioxide 20 mmol/L (22-29); Chloride 112 mmol/L (96-108); Estimated Glomerular Filt Rate 14; Glucose Random 220 mg/dL (60-115); Potassium 5.2 mmol/L (3.3-5.1); Sodium 141 mmol/L (135-145); Total Protein 7.2 g/dL (6.5-8.0)
== END 2022-04-14 10:48 | disposition home or self-care (01) ==
LOC: HO.LAB 10:47
PROVIDERS: PCP Internal Medicine; Visit Provider Internal Medicine
DX: I10 Essential (primary) hypertension (principal); E11.8 Type 2 diabetes mellitus with unspecified complications
CPT/HCPCS: 36415; 80048; 80076; 83036; 84443; 85027

== ENCOUNTER 2022-05-25 10:21 | Outpatient (REF) | payer OTHER, SELFPAY ==
[2022-05-25 13:57] LABS: Prostate Specific Antigen 0.41 ng/mL (<0.05-4.0)
[2022-05-30 10:17] LABS: Testosterone, Total 56 ng/dL (250-1100)
== END 2022-05-25 10:22 | disposition home or self-care (01) ==
LOC: HO.10HDL 10:21
PROVIDERS: Visit Provider Urology
DX: C61 Malignant neoplasm of prostate (principal); E29.1 Testicular hypofunction; Z12.5 Encounter for screening for malignant neoplasm of prostate
CPT/HCPCS: 36415; 84153; 84403

== ENCOUNTER → 2022-06-15 10:54 | Outpatient (BNVA) | payer OTHER, SELFPAY | PROVIDERS: PCP Internal Medicine; Visit Provider Urology | DX: E29.1 Testicular hypofunction (principal); C61 Malignant neoplasm of prostate; M81.8 Other osteoporosis without current pathological fracture; T38.7X5A Adverse effect of androgens and anabolic congeners, initial encounter | CPT/HCPCS: 96372; J0897 ==

== ENCOUNTER 2022-07-12 11:19 | Outpatient (REF) | payer OTHER, SELFPAY ==
[2022-07-12 13:46] LABS: Hematocrit 23.6 % (42.0-52.0); Hemoglobin 7.8 g/dl (14.0-18.0); Mean Corpuscular HGB Conc 33.1 g/dl (31.0-36.0); Mean Corpuscular Hemoglobin 31.2 pg (27.0-33.0); Mean Corpuscular Volume 94.4 fL (80.0-98.0); Mean Platelet Volume 10.5 fL (9.4-12.4); Platelet Count 250 X10*3/uL (160-400); Red Cell Distribution Width 14.6 % (11.0-16.0); White Blood Count 7.9 X10*3/uL (4.8-10.8)
[2022-07-12 14:08] LABS: Iron 60 mcg/dL (45-160); Percent Iron Saturation 25 % (15-50); Total Iron Binding Capacity 244 mcg/dL (228-428); Unsaturated Iron Binding 184 ug/dL
[2022-07-12 14:28] LABS: Ferritin 297 ng/mL (20-250)
== END 2022-07-12 11:20 | disposition home or self-care (01) ==
LOC: HO.10HDL 11:19
PROVIDERS: Visit Provider Internal Medicine Hypertension Specialist
DX: N18.5 Chronic kidney disease, stage 5 (principal); D63.1 Anemia in chronic kidney disease
CPT/HCPCS: 36415; 82728; 83540; 85027

== ENCOUNTER 2022-08-03 11:25 | Outpatient (REF) | payer OTHER, SELFPAY ==
[2022-08-03 13:52] LABS: Hematocrit 24.1 % (42.0-52.0); Hemoglobin 7.8 g/dl (14.0-18.0); Mean Corpuscular HGB Conc 32.4 g/dl (31.0-36.0); Mean Corpuscular Hemoglobin 30.6 pg (27.0-33.0); Mean Corpuscular Volume 94.5 fL (80.0-98.0); Mean Platelet Volume 10.7 fL (9.4-12.4); Platelet Count 237 X10*3/uL (160-400); Red Blood Count 2.55 X10*6/uL (4.60-5.80); Red Cell Distribution Width 14.1 % (11.0-16.0)
[2022-08-03 14:07] LABS: Anion Gap 17 (12-20); Blood Urea Nitrogen 45 mg/dL (9-16); Calcium 8.4 mg/dL (8.4-10.2); Carbon Dioxide 19 mmol/L (22-29); Chloride 113 mmol/L (96-108); Estimated Glomerular Filt Rate 12; Glucose Random 185 mg/dL (60-115); Iron 54 mcg/dL (45-160); Percent Iron Saturation 23 % (15-50); Potassium 5.1 mmol/L (3.3-5.1); Sodium 144 mmol/L (135-145); Total Iron Binding Capacity 230 mcg/dL (228-428); Unsaturated Iron Binding 176 ug/dL
== END 2022-08-03 11:26 | disposition home or self-care (01) ==
LOC: HO.10HDL 11:25
PROVIDERS: Visit Provider Internal Medicine Hypertension Specialist
DX: N18.5 Chronic kidney disease, stage 5 (principal)
CPT/HCPCS: 36415; 80048; 83540; 85027

== ENCOUNTER 2022-10-20 11:29 | Outpatient (REF) | payer OTHER, SELFPAY ==
[2022-10-20 13:36] LABS: MANUAL DIFF FLAG NO
[2022-10-20 13:49] LABS: Basophils Absolute Auto 0.1 X10*3/uL (0.0-0.2); Basophils Percent Auto 0.6 % (0-2); Eosinophils Absolute Auto 0.5 X10*3/uL (0.0-0.4); Eosinophils Percent Auto 6.6 % (0-4); Hematocrit 32.1 % (42.0-52.0); Hemoglobin 10.3 g/dl (14.0-18.0); Imm Gran Abs Auto 0.03 X10*3/uL (0.00-0.03); Imm Gran Pct Auto 0.4 % (0.0-0.4); Lymphocytes Absolute Auto 1.7 X10*3/uL (1.2-4.9); Lymphocytes Percent Auto 22.1 % (20-40); Mean Corpuscular HGB Conc 32.1 g/dl (31.0-36.0); Mean Corpuscular Hemoglobin 29.7 pg (27.0-33.0); Mean Corpuscular Volume 92.5 fL (80.0-98.0); Mean Platelet Volume 10.8 fL (9.4-12.4); Monocytes Absolute Auto 0.6 X10*3/uL (0.1-1.2); Monocytes Percent Auto 8.2 % (2-11); Neutrophils Absolute Auto 4.9 x10*3/uL (2.0-8.3); Neutrophils Percent Auto 62.1 % (45-73); Platelet Count 278 X10*3/uL (160-400); Red Blood Count 3.47 X10*6/uL (4.60-5.80); Red Cell Distribution Width 14.7 % (11.0-16.0); White Blood Count 7.8 X10*3/uL (4.8-10.8)
[2022-10-20 14:39] LABS: Anion Gap 15 (12-20); Blood Urea Nitrogen 62 mg/dL (9-16); Calcium 9.4 mg/dL (8.4-10.2); Carbon Dioxide 22 mmol/L (22-29); Chloride 110 mmol/L (96-108); Estimated Glomerular Filt Rate 11; Glucose Random 125 mg/dL (60-115); Potassium 4.6 mmol/L (3.3-5.1); Sodium 142 mmol/L (135-145)
== END 2022-10-20 11:30 | disposition home or self-care (01) ==
LOC: HO.10HDL 11:29
PROVIDERS: Visit Provider Internal Medicine Hypertension Specialist
DX: N18.5 Chronic kidney disease, stage 5 (principal)
CPT/HCPCS: 36415; 80048; 85025

== ENCOUNTER 2022-11-15 10:18 | Outpatient (REF) | payer OTHER, SELFPAY ==
[2022-11-15 12:05] LABS: Alanine Aminotransferase 10 U/L (0-40); Albumin Level 4.1 g/dL (3.5-5.0); Alkaline Phosphatase 83 U/L (39-117); Aspartate Amino Transferase 13 U/L (5-37); Bilirubin Direct 0.2 mg/dL (0.0-0.5); Bilirubin Total 0.6 mg/dL (0.0-1.0)
[2022-11-15 12:27] LABS: Prostate Specific Antigen 1.37 ng/mL (<0.05-4.0); Thyroid Stimulating Hormone 5.21 uIU/mL (0.32-4.0)
[2022-11-21 12:39] LABS: Testosterone, Total 88 ng/dL (250-1100)
== END 2022-11-15 10:19 | disposition home or self-care (01) ==
LOC: HO.LAB 10:18
PROVIDERS: Absent Provider Internal Medicine; PCP Internal Medicine; Visit Provider Urology
DX: Z12.5 Encounter for screening for malignant neoplasm of prostate (principal); C61 Malignant neoplasm of prostate; E29.1 Testicular hypofunction; E11.8 Type 2 diabetes mellitus with unspecified complications
CPT/HCPCS: 36415; 80076; 84153; 84403; 84443

== ENCOUNTER 2022-11-19 10:19 | Outpatient (REF) | payer OTHER, SELFPAY ==
[2022-11-19 14:38] LABS: Thyroid Stimulating Hormone 4.21 uIU/mL (0.32-4.0)
== END 2022-11-19 10:20 | disposition home or self-care (01) ==
LOC: HO.10HDL 10:19
PROVIDERS: Visit Provider Internal Medicine
DX: E03.9 Hypothyroidism, unspecified (principal)
CPT/HCPCS: 36415; 84443

== ENCOUNTER → 2022-12-15 13:54 | Outpatient (BNVA) | payer OTHER, SELFPAY | PROVIDERS: PCP Internal Medicine; Visit Provider Urology | DX: M81.8 Other osteoporosis without current pathological fracture (principal); C61 Malignant neoplasm of prostate; T38.7X5A Adverse effect of androgens and anabolic congeners, initial encounter | CPT/HCPCS: 96372; J0897 ==

== ENCOUNTER 2022-12-22 11:42 | Outpatient (REF) | payer OTHER, SELFPAY ==
[2022-12-22 13:32] LABS: MANUAL DIFF FLAG NO
[2022-12-22 13:47] LABS: Basophils Absolute Auto 0.1 X10*3/uL (0.0-0.2); Basophils Percent Auto 0.5 % (0-2); Eosinophils Absolute Auto 0.6 X10*3/uL (0.0-0.4); Eosinophils Percent Auto 6.1 % (0-4); Hematocrit 29.5 % (42.0-52.0); Hemoglobin 9.4 g/dl (14.0-18.0); Imm Gran Abs Auto 0.04 X10*3/uL (0.00-0.03); Imm Gran Pct Auto 0.4 % (0.0-0.4); Lymphocytes Absolute Auto 1.5 X10*3/uL (1.2-4.9); Mean Corpuscular HGB Conc 31.9 g/dl (31.0-36.0); Mean Corpuscular Hemoglobin 29.7 pg (27.0-33.0); Mean Corpuscular Volume 93.1 fL (80.0-98.0); Mean Platelet Volume 9.7 fL (9.4-12.4); Monocytes Absolute Auto 0.7 X10*3/uL (0.1-1.2); Monocytes Percent Auto 7.1 % (2-11); Neutrophils Absolute Auto 6.4 x10*3/uL (2.0-8.3); Neutrophils Percent Auto 69.9 % (45-73); Platelet Count 282 X10*3/uL (160-400); Red Blood Count 3.17 X10*6/uL (4.60-5.80); Red Cell Distribution Width 17.1 % (11.0-16.0); White Blood Count 9.2 X10*3/uL (4.8-10.8)
[2022-12-22 13:57] LABS: Anion Gap 15 (12-20); Blood Urea Nitrogen 42 mg/dL (9-16); Calcium 9.1 mg/dL (8.4-10.2); Carbon Dioxide 24 mmol/L (22-29); Chloride 109 mmol/L (96-108); Estimated Glomerular Filt Rate 11; Glucose Random 153 mg/dL (60-115); Potassium 5.1 mmol/L (3.3-5.1); Sodium 143 mmol/L (135-145)
== END 2022-12-22 11:43 | disposition home or self-care (01) ==
LOC: HO.10HDL 11:42
PROVIDERS: Visit Provider Internal Medicine Hypertension Specialist
DX: E11.22 Type 2 diabetes mellitus with diabetic chronic kidney disease (principal); N18.5 Chronic kidney disease, stage 5
CPT/HCPCS: 36415; 80048; 85025

== ENCOUNTER 2023-02-21 11:57 | Outpatient (REF) | payer OTHER, SELFPAY ==
[2023-02-21 13:37] LABS: MANUAL DIFF FLAG NO
[2023-02-21 13:41] LABS: Basophils Percent Auto 0.5 % (0-2); Eosinophils Absolute Auto 0.7 X10*3/uL (0.0-0.4); Eosinophils Percent Auto 9.3 % (0-4); Hematocrit 30.1 % (42.0-52.0); Hemoglobin 9.8 g/dl (14.0-18.0); Imm Gran Abs Auto 0.03 X10*3/uL (0.00-0.03); Imm Gran Pct Auto 0.4 % (0.0-0.4); Lymphocytes Absolute Auto 1.4 X10*3/uL (1.2-4.9); Lymphocytes Percent Auto 18.1 % (20-40); Mean Corpuscular HGB Conc 32.6 g/dl (31.0-36.0); Mean Corpuscular Hemoglobin 29.5 pg (27.0-33.0); Mean Corpuscular Volume 90.7 fL (80.0-98.0); Mean Platelet Volume 11.3 fL (9.4-12.4); Monocytes Absolute Auto 0.6 X10*3/uL (0.1-1.2); Monocytes Percent Auto 7.7 % (2-11); Platelet Count 258 X10*3/uL (160-400); Red Blood Count 3.32 X10*6/uL (4.60-5.80); Red Cell Distribution Width 14.5 % (11.0-16.0); White Blood Count 7.8 X10*3/uL (4.8-10.8)
[2023-02-21 13:59] LABS: Iron 77 mcg/dL (45-160); Percent Iron Saturation 41 % (15-50); Total Iron Binding Capacity 186 mcg/dL (228-428); Unsaturated Iron Binding 109 ug/dL
[2023-02-21 14:15] LABS: Ferritin 475 ng/mL (20-250)
== END 2023-02-21 11:58 | disposition home or self-care (01) ==
LOC: HO.10HDL 11:57
PROVIDERS: Visit Provider Internal Medicine Nephrology
DX: N18.5 Chronic kidney disease, stage 5 (principal); D63.1 Anemia in chronic kidney disease
CPT/HCPCS: 36415; 82728; 83540; 85025

== ENCOUNTER 2023-06-30 10:31 | Outpatient (AMB) | payer OTHER, SELFPAY ==
--- NOTE | 2023-06-30 10:34 | MHC.OFFVIS ---
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 Accompanied by: Self / Same As Patient Allergies No Known Allergies [No Known Allergies*] Allergy (Verified 06/30/23 10:36) Medication List - Last Reconciled 06/30/23 by Vasquez Chang MD allopurinol 100 mg PO DAILY amlodipine 10 mg PO DAILY betamethasone dipropionate 0.05% 1 appl topical BID PRN blood sugar diagnostic (FreeStyle Test strips) As directed twice a day blood-glucose meter As directed calcium citrate-vitamin D3 315 mg-5 mcg (200 unit) (Calcium Citrate + D) 2 tabs PO DAILY 90 days ferrous fumarate (Ferretts) 325 mg PO BID glipizide 5 mg PO BID insulin glargine (Lantus Solostar U-100 Insulin) 10 units (0.1 mL) subcut QPM lancets As directed levothyroxine (Synthroid) 25 mcg PO DAILY pen needle, diabetic As directed 1x daily pravastatin 20 mg PO DAILY sitagliptin phosphate (Januvia) 100 mg PO DAILY sodium bicarbonate 650 mg PO BID terazosin 5 mg PO BEDTIME 90 days trazodone 100 mg PO BEDTIME 30 days HPI HPI Comments History of Present Illness Details Jorge returns for follow-up regarding possible coronary artery disease. Multiple cardiovascular risk factors including diabetes, hypertension, dyslipidemia, chronic kidney disease. In the past, he was getting heartburn episodes and myocardial perfusion imaging had shown equivocal findings of mild ischemia at the anterior apex. However, due to significant renal dysfunction we did not pursue any invasive options. Since last seen, he states he actually doing quite good. No complaints like angina or shortness of breath or in fact anything cardiac sounding. He no longer has a heartburn issues either. COUNT INCLUDES THE [facility] Medical History Diabetes Edema of both feet Essential hypertension Gout Hyperlipidemia Other and unspecified hyperlipidemia Prostate cancer Surgical History History of hernia surgery Family History Mother No problems noted. Father No problems noted. Social History Alcohol intake: never Patient Tobacco Use Status: Never used Tobacco e-Cigarette/Vaping Use: Never Used Second Hand Smoke Exposure: No service: No Current occupational status: retired Current occupation: rt handed Cognitive needs: No Hearing needs: No Vision needs: No Review of Systems Const Denies weakness ENT Denies dizziness Card Denies chest pain, Denies chest pain with activity, Denies syncope, Denies rapid heart rate, Denies pedal edema, Denies edema, Denies leg edema, Denies lightheadedness, Denies palpitations, Denies dyspnea, Denies dyspnea on exertion and Denies orthopnea Resp Denies cough, Denies dyspnea and Denies dyspnea on exertion GI Denies hematochezia and Denies change in stool character Musc Denies abnormal gait, Denies muscle cramps, Denies muscle weakness, Denies numbness, Denies radiating pain into limb and Denies tingling Neuro Denies abnormal gait, Denies dizziness, Denies syncope, Denies numbness, Denies tingling and Denies weakness Endo Denies palpitations Physical Exam Vital Signs: Last Vital Signs Pulse 60 06/30/23 10:36 BP 140/52 H 06/30/23 10:36 BMI result Body Mass Index 24.0 Const General: comfortable and no acute distress Orientation/consciousness: patient oriented x3 HEENT Other: Unremarkable Head: Yes normal to inspection Neck Neck: Yes normal visual inspection Chest Chest palpation & inspection: normal inspection of the chest Resp Auscultation: clear to auscultation bilaterally Cardio Palpation: normal PMI Heart sounds: S1 normal heart sound present, S2 normal heart sound present, no gallops, Murmur heart sound present systolic II/ and at the right sternal border and no rubs GI Palpation (GI): Soft to palpation Back/Spine/Pelvis Other: unremarkable Skin General skin exam: no rashes or lesions noted Neuro General: patient oriented x3 Extrem General: Yes normal to inspection Psych Mental Status: mental status grossly normal Office Procedures EKG Details: EKG with sinus rhythm at 60/Min; no significant ST-T changes and otherwise unremarkable. [place]. [address]-[id number], Complete Assessment & Plan Assessment & Plan (1) Abnormal myocardial perfusion study: Code(s): R94.39 - Abnormal result of other cardiovascular function study (2) Type 2 diabetes mellitus with unspecified complications: Code(s): E11.8 - Type 2 diabetes mellitus with unspecified complications (3) Essential hypertension: Code(s): I10 - Essential (primary) hypertension (4) Other and unspecified hyperlipidemia: Code(s): E78.5 - Hyperlipidemia, unspecified (5) CKD (chronic kidney disease) stage 5, GFR less than 15 ml/min: Comment: Follow-up with the telehealth coordinator. Code(s): N18.5 - Chronic kidney disease, stage 5 Plan Cardiac studies reviewed. Echocardiogram from 2021 with normal LVEF, 55-60%; moderate diastolic dysfunction and reduced strain. No significant valvular issues. Myocardial perfusion imaging study 2019 with equivocal findings of mild ischemia at the anterior apex. Overall, numerous cardiovascular risk factors including diabetes, hypertension, dyslipidemia, CKD but no overt symptoms like angina. Inconclusive stress test as above. Recommend mainly aggressive risk factor modification only. With regard to diabetes, hemoglobin A1c is 6.9%. He is on insulin and Januvia. Borderline blood pressure today and he is on amlodipine. Remains on statins. His creatinine is quite high at 5 but stable. If able, take aspirin but he has had significant heartburn before. Discussed. Will follow in 1 year. In the interim, he will call with any concerns. Orders: Orders CA echo transthoracic complete 51 Weeks I25.10 - Atherosclerotic heart disease of [place] coronary artery without angina pectoris Coding Level of Care Code Est Pt Level 4 (78629) Diagnoses Abnormal myocardial perfusion study R94.39 Type 2 diabetes mellitus with unspecified complications E11.8 Essential hypertension I10 Other and unspecified hyperlipidemia E78.5 CKD (chronic kidney disease) stage 5, GFR less than 15 ml/min N18.5 CPT Codes EKG - CPT: 75601-[id number], Complete ([id number])
[2023-06-30 10:36] VITALS: BP 140/52; PULSE 60; BMI 24.0
== END 2023-06-30 10:57 | disposition home or self-care (01) ==
PROVIDERS: PCP Internal Medicine; Visit Provider Internal Medicine
DX: R94.39 Abnormal result of other cardiovascular function study (principal); E11.8 Type 2 diabetes mellitus with unspecified complications; I12.0 Hypertensive chronic kidney disease with stage 5 chronic kidney disease or end stage renal disease; E78.5 Hyperlipidemia, unspecified; N18.5 Chronic kidney disease, stage 5
CPT/HCPCS: 93010; 99214

== ENCOUNTER → 2023-06-30 10:31 | Outpatient (BNVA) | payer OTHER, SELFPAY | PROVIDERS: PCP Internal Medicine; Visit Provider Internal Medicine | DX: R94.39 Abnormal result of other cardiovascular function study (principal); I10 Essential (primary) hypertension | CPT/HCPCS: 93005 ==

== ENCOUNTER 2023-07-07 10:49 | Outpatient (REF) | payer OTHER, SELFPAY ==
--- NOTE | ~2023-07-07 | MM_ITS ---
EXAMINATION: BONE DENSITOMETRY CLINICAL INDICATION: Osteopenia. COMPARISON: Baseline BD dated 06/30/2021. TECHNIQUE: Using a SoloPower DXA System (software version: 13.1) manufactured by [employer], dual-energy x-ray absorptiometry was performed of the lumbar spine and left hip. The images are of good technical quality. Summary results are attached. FINDINGS: LEFT FEMUR, NECK: Current: BMD 0.639 g/cm2, Z-score -1.6, T-score -3.3, osteoporosis. Baseline: BMD 0.635 g/cm2. LEFT FEMUR, TOTAL: Current: BMD 1.284 g/cm2, Z-score 2.5, T-score 1.3, normal, 5.2% decrease from baseline (<5% change is not significant). Baseline: BMD 1.220 g/cm2. AP SPINE L1-L4 (excluding L3): The data of L1-L4 has been changed to exclude the L3 vertebral body, because significant degenerative change at this level may cause overestimation of lumbar spine density. Current: BMD 1.211 g/cm2, Z-score 0.9, T-score 0.0, normal, 8.0% increase from baseline (<5% change is not significant). Baseline: BMD 1.121 g/cm2. IDENTIFIED RISK FACTORS: Renal, history of fracture (adult). HISTORY OF FRACTURE: Shoulder. MEDICATIONS: None listed. MM/XR DEXA axial skeleton IMPRESSION: 1. DIAGNOSIS: Severe osteoporosis based on the lowest T-score value of -3.3 in the femoral neck and history of fracture of shoulder applying World Health Organization criteria. 2. 10-YEAR FRACTURE RISK PREDICTION, FRAX: According to the guidelines, FRAX calculation should only be performed on patients in the osteopenia bone density category. Therefore, FRAX was not performed on this patient. 3. Treatment Recommendations: NOF guidelines recommend consideration for treatment in postmenopausal women and men age 50 and older presenting with the following: -A hip or vertebral (clinical or morphometric) fracture. -T-score less than or equal to -2.5 at the femoral neck or spine after appropriate evaluation to exclude secondary causes. -Low bone mass at the hip or spine and a 10-year fracture probability by FRAX of greater than or equal to 3% for hip fracture or greater than or equal to 20% for major osteoporotic fracture based on the [place] adapted WHO algorithm. 4. Other Recommendations: All treatment decisions require clinical judgment and consideration of individual patient factors, including patient preferences, comorbidities, previous drug use, risk factors not captured in the FRAX model (e.g. frailty, falls, vitamin D deficiency, increased bone turnover, interval significant decline in bone density) and possible under or overestimation of fracture risk by FRAX. Additional medical evaluation for secondary cause of low bone mineral density may be appropriate. FUTURE SCAN RECOMMENDATION: People with diagnosed cases of osteoporosis or at high risk for fracture should have regular bone mineral density tests. For patients eligible for Medicare, routine testing is allowed once every 2 years. The testing frequency can be increased to one year for patients who have rapidly progressing disease, those who are receiving or discontinuing medical therapy to restore bone mass, or have additional risk factors.
== END 2023-07-07 10:50 | disposition home or self-care (01) ==
LOC: HO.MAMMO 10:49
PROVIDERS: PCP Internal Medicine; Visit Provider Urology
DX: Z13.820 Encounter for screening for osteoporosis (principal); M85.80 Other specified disorders of bone density and structure, unspecified site; M81.0 Age-related osteoporosis without current pathological fracture
CPT/HCPCS: 77080

== ENCOUNTER 2023-07-11 11:26 | Outpatient (REF) | payer OTHER, SELFPAY ==
[2023-07-11 13:33] LABS: MANUAL DIFF FLAG NO
[2023-07-11 13:41] LABS: Basophils Absolute Auto 0.1 X10*3/uL (0.0-0.2); Basophils Percent Auto 0.6 % (0-2); Eosinophils Absolute Auto 0.5 X10*3/uL (0.0-0.4); Eosinophils Percent Auto 6.3 % (0-4); Hematocrit 29.9 % (42.0-52.0); Hemoglobin 9.7 g/dl (14.0-18.0); Imm Gran Abs Auto 0.03 X10*3/uL (0.00-0.03); Imm Gran Pct Auto 0.4 % (0.0-0.4); Lymphocytes Absolute Auto 1.8 X10*3/uL (1.2-4.9); Lymphocytes Percent Auto 21.2 % (20-40); Mean Corpuscular HGB Conc 32.4 g/dl (31.0-36.0); Mean Corpuscular Hemoglobin 30.2 pg (27.0-33.0); Mean Corpuscular Volume 93.1 fL (80.0-98.0); Mean Platelet Volume 10.4 fL (9.4-12.4); Monocytes Absolute Auto 0.6 X10*3/uL (0.1-1.2); Monocytes Percent Auto 7.2 % (2-11); Neutrophils Absolute Auto 5.4 x10*3/uL (2.0-8.3); Neutrophils Percent Auto 64.3 % (45-73); Platelet Count 276 X10*3/uL (160-400); Red Blood Count 3.21 X10*6/uL (4.60-5.80); Red Cell Distribution Width 14.8 % (11.0-16.0); White Blood Count 8.3 X10*3/uL (4.8-10.8)
[2023-07-11 14:21] LABS: Prostate Specific Antigen 1.65 ng/mL (<0.05-4.0)
[2023-07-15 13:33] LABS: Testosterone, Total 84 ng/dL (250-1100)
== END 2023-07-11 11:27 | disposition home or self-care (01) ==
LOC: HO.10HDL 11:26
PROVIDERS: Absent Provider Internal Medicine Hypertension Specialist; Visit Provider Urology
DX: C61 Malignant neoplasm of prostate (principal); N18.5 Chronic kidney disease, stage 5; Z12.5 Encounter for screening for malignant neoplasm of prostate
CPT/HCPCS: 36415; 84153; 84403; 85025

== ENCOUNTER 2023-07-19 13:47 | Outpatient (AMB) | payer OTHER, SELFPAY ==
--- NOTE | 2023-07-19 13:48 | MHC.OFFVIS ---
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 Accompanied by: Self / Same As Patient Allergies No Known Allergies [No Known Allergies*] Allergy (Verified 07/19/23 14:13) Medication List - Last Reconciled 07/19/23 by Fuad Card MD allopurinol 100 mg PO DAILY amlodipine 10 mg PO DAILY betamethasone dipropionate 0.05% 1 appl topical BID PRN blood sugar diagnostic (FreeStyle Test strips) As directed twice a day blood-glucose meter As directed calcium citrate-vitamin D3 315 mg-5 mcg (200 unit) (Calcium Citrate + D) 2 tabs PO DAILY 90 days ferrous fumarate (Ferretts) 325 mg PO BID glipizide 5 mg PO BID insulin glargine (Lantus Solostar U-100 Insulin) 10 units (0.1 mL) subcut QPM lancets As directed levothyroxine (Synthroid) 25 mcg PO DAILY pen needle, diabetic As directed 1x daily pravastatin 20 mg PO DAILY sitagliptin phosphate (Januvia) 100 mg PO DAILY sodium bicarbonate 650 mg PO BID terazosin 5 mg PO BEDTIME 90 days trazodone 100 mg PO BEDTIME 30 days HPI HPI Comments History of Present Illness Details Jorge is a pleasant male. He is a patient of . 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 He seen for the following urologic conditions - prostate cancer - lower urinary tract symptoms - osteoporosis - secondary to long-term GnRH use 6m f/u Minimal change to lab work Prolia every 6 months recent diagnosis of Parkinson's Prostate cancer - initial therapy GnRH extended. Initial diagnosis with Dr. Chakraborty Initial therapy active surveillance Prior therapies - was on GnRH for extended period Laboratories - 03/30 PSA < 0.1, T 4, 07/30 <0.1, 12/01 <0.1 T 42, 05/31 0.4 T 56, 12/02 1.4 T 88, 08/01 1.6 84 Current therapy includes Prolia every 6 months with Citracal Associated conditions - diabetes Imaging - 06/30 DEXA scan with osteoporosis secondary to hormone usage - 07/02 DEXA severe osteoporosis secondary to hormone therapy Did have broken right arm 2020 Lower urinary tract symptoms Urinary urgency Urinary frequency Responds well to tamsulosin PFSH Medical History Diabetes Edema of both feet Essential hypertension Gout Hyperlipidemia Other and unspecified hyperlipidemia Prostate cancer Surgical History History of hernia surgery Family History Mother No problems noted. Father No problems noted. Social History Alcohol intake: never Patient Tobacco Use Status: Never used Tobacco e-Cigarette/Vaping Use: Never Used Second Hand Smoke Exposure: No service: No Current occupational status: retired Current occupation: rt handed Cognitive needs: No Hearing needs: No Vision needs: No Female Reproductive History Date of last Bone Density Screenin07/07/23 Review of Systems Const Denies chills and Denies fever(s) Card Reports no additional complaints and Denies syncope Resp Denies cough GI Denies abdominal pain and Denies heartburn Reports as per HPI and Denies change in libido Neuro Denies syncope Psych Denies change in libido Endo Denies change in libido Physical Exam Const General: cooperative, healthy appearing, comfortable and no acute distress Orientation/consciousness: patient oriented x3 HEENT Face and sinus: Yes normal facial exam Mouth: moist mucous membranes Neck Neck: Yes normal visual inspection, Yes full ROM and Yes trachea midline Chest Chest palpation & inspection: normal inspection of the chest Resp Effort & Inspection: normal respiratory effort, able to speak in complete sentences and no respiratory distress GI Inspection: Yes normal to inspection Back/Spine/Pelvis Cervical Spine: normal cervical lordosis Thoracic/Lumbar Spine: thoracic and lumbar spine normal to inspection Skin General skin exam: no rashes or lesions noted Neuro General: patient oriented x3, gait normal, tone normal and moves all extremities Extrem General: Yes normal to inspection and Yes capillary refill normal Office Procedures Post Void Residual Post Residual Void Post Void Residual (PVR): 10 [id number] Void Residual by ultrasound Results AMB Urinalysis, Automated UA Leukoctes 0 Trip/uL Last Edit by ARTIE Galloway on 07/19/23 14:12 UA Nitrite Negative Last Edit by ARTIE Galloway on 07/19/23 14:12 UA Urobilinogen 0.2 mg/dL Last Edit by Jeff Marquis Rafaela on 07/19/23 14:12 UA Protein 100 mg/dL Last Edit by Jeff Marquis, A on 07/19/23 14:12 UA pH 5.5 Last Edit by Jeff Marquis, [facility] on 07/19/23 14:12 UA Blood 25 Kem/uL Last Edit by Jeff Marquis A on 07/19/23 14:12 UA Specific Lutz 1.015 Last Edit by Jeff Marquis, [facility] on 07/19/23 14:12 UA Ketone Negative Last Edit by Jeff Marquis [facility] on 07/19/23 14:12 UA Bilirubin 0 mg/dL Last Edit by Jeff Marquis Rafaela on 07/19/23 14:12 UA Glucose 1000 mg/dL Last Edit by Jeff Lockhartlashae [facility] on 07/19/23 14:12 Assessment & Plan Assessment & Plan (1) Prostate cancer: Comment: Long-term GnRH therapy Code(s): C61 - Malignant neoplasm of prostate (2) Osteoporosis due to androgen therapy: Code(s): M81.8 - Other osteoporosis without current pathological fracture; T38.7X5A - Adverse effect of androgens and anabolic congeners, initial encounter Plan Prolia in now and six-month follow-up Prolia with lab Orders: Orders AMB Post Void Residual by ultrasound Today N39.8 - Other specified disorders of urinary system AMB Urinalysis Automated Today Z13.9 - Encounter for screening, unspecified Prostate Specific Antigen 6 Months C61 - Malignant neoplasm of prostate Testosterone, Total 6 Months C61 - Malignant neoplasm of prostate Patient Instructions: Imaging studies, laboratory and physical exam results were discussed and reviewed in detail. No major barriers to patient understanding were identified. An opportunity to ask questions regarding the treatment plan was provided. All questions were answered. The patient expressed understanding and agreement with the above treatment plan. The patient is aware they should contact our office by phone for worsening of their current condition or the appearance of new urologic symptoms. Compliance is encouraged with any medications and followup testing that is ordered. It is a privilege to participate in the urologic care of your patient. If you have any questions or concerns regarding treatment for the above conditions, or other urologic issues, please do not hesitate to contact me. The office telephone contact is [phone]. This note is constructed using voice recognition software. While every effort has been made to ensure accuracy hide washer errors may have been included. Yours sincerely, Dr Fuad Card MD, [facility] - Urology Providers of Expert, Compassionate Care for the Genitourinary System Coding Level of Care Code Est Pt Level 3 (02365) Diagnoses Prostate cancer C61 Osteoporosis due to androgen therapy M81.8; T38.7X5A CPT Codes Post Residual Void - PVR CPT Code: 79245-Voya Void Residual by ultrasound ([id number])
== END 2023-07-19 14:33 | disposition home or self-care (01) ==
PROVIDERS: PCP Internal Medicine; Visit Provider Urology
DX: C61 Malignant neoplasm of prostate (principal); M81.8 Other osteoporosis without current pathological fracture; T38.7X5A Adverse effect of androgens and anabolic congeners, initial encounter; Z13.9 Encounter for screening, unspecified
CPT/HCPCS: 99213

== ENCOUNTER → 2023-07-19 13:47 | Outpatient (BNVA) | payer OTHER, SELFPAY | PROVIDERS: Visit Provider Urology | DX: C61 Malignant neoplasm of prostate (principal); M81.8 Other osteoporosis without current pathological fracture; T38.7X5A Adverse effect of androgens and anabolic congeners, initial encounter; N39.8 Other specified disorders of urinary system | CPT/HCPCS: 51798; 81003 ==

== ENCOUNTER 2023-08-05 11:00 | Outpatient (AMB) | payer OTHER, SELFPAY ==
--- NOTE | 2023-08-05 11:12 | AM.OFFVISNUR ---
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
== END 2023-08-05 11:20 | disposition home or self-care (01) ==
PROVIDERS: PCP Internal Medicine; Visit Provider Urology
DX: M81.8 Other osteoporosis without current pathological fracture (principal); T38.7X5A Adverse effect of androgens and anabolic congeners, initial encounter

== ENCOUNTER → 2023-08-05 11:00 | Outpatient (BNVA) | payer OTHER, SELFPAY | PROVIDERS: PCP Internal Medicine; Visit Provider Urology | DX: M81.8 Other osteoporosis without current pathological fracture (principal); T38.7X5A Adverse effect of androgens and anabolic congeners, initial encounter | CPT/HCPCS: 96372; J0897 ==

== ENCOUNTER 2023-08-12 13:57 | Outpatient (AMB) | payer OTHER, SELFPAY ==
--- NOTE | 2023-08-12 14:02 | HO.NEPHOV ---
HPI HPI Comments History of Present Illness Details Elderly man with a history of longstanding diabetes mellitus hypertension with CKD. History of for further follow-up regarding CKD. Today has no new complaints. Overall is doing well from a renal standpoint [facility] Medical History Other and unspecified hyperlipidemia Essential hypertension Edema of both feet Prostate cancer Gout Hyperlipidemia Diabetes Surgical History History of hernia surgery Family History Mother No problems noted. Father No problems noted. Social History Alcohol intake: never Patient Tobacco Use Status: Never used Tobacco e-Cigarette/Vaping Use: Never Used Second Hand Smoke Exposure: No service: No Current occupational status: retired Current occupation: rt handed Cognitive needs: No Hearing needs: No Vision needs: No Vital Signs 08/12/23 14:03 Height 5 ft 7.5 in Weight 155 lb 6 oz BMI 24.0 BP 144/60 H Blood Pressure Location Lt brachial Position Sitting Pulse 97 Pulse Source Pulse Oximeter Oxygen Delivery Method Room Air Physical Exam Vital Signs: Last Vital Signs Pulse 97 08/12/23 14:03 BP 144/60 H 08/12/23 14:03 Oxygen Delivery Method Room Air 08/12/23 14:03 BMI result Body Mass Index 24.0 Const General: comfortable Nutritional Appearance: well nourished Orientation/consciousness: patient oriented x3 HEENT Head: No normal to inspection Mouth: moist mucous membranes Neck Neck: Yes supple and Yes no JVD Resp Auscultation: clear to auscultation bilaterally, no rales and rub present Cardio Jugular venous distension: no JVD Palpation: no palpable S3 and no palpable S4 Heart sounds: no rubs GI Palpation (GI): Soft to palpation and nontender Percussion: No Fluid wave present General: Yes no CVA tenderness Back/Spine/Pelvis Back: no CVA tenderness Skin General skin exam: no rashes or lesions noted Neuro General: patient oriented x3 Extrem General: Yes no pedal edema and No clubbing Results Reviewed Results Reviewed: 11 review Assessment & Plan Assessment & Plan (1) CKD (chronic kidney disease) stage 5, GFR less than 15 ml/min: Code(s): N18.5 - Chronic kidney disease, stage 5 (2) Essential hypertension: Code(s): I10 - Essential (primary) hypertension (3) Anemia due to chronic kidney disease: Code(s): N18.9 - Chronic kidney disease, unspecified; D63.1 - Anemia in chronic kidney disease Qualifiers: Chronic kidney disease stage: stage 5, not on chronic dialysis Qualified Code(s): N18.5 - Chronic kidney disease, stage 5; D63.1 - Anemia in chronic kidney disease Plan Advanced CKD approaching end stage renal disease. No signs or symptoms of uremia. Fluid status seems acceptable. No absolute indication for dialysis Hypertension Blood pressure is well controlled Stay on low-sodium diet. 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 Mild metabolic acidosis in the setting of advanced CKD. Since the bicarb is normal range I will hold off on sodium bicarbonate. Orders: Orders Complete Blood Count no Diff 08/12/23 N18.9 - Chronic kidney disease, unspecified, D63.1 - Anemia in chronic kidney disease, N18.5 - Chronic kidney disease, stage 5 Creatinine 08/12/23 N18.9 - Chronic kidney disease, unspecified, D63.1 - Anemia in chronic kidney disease, N18.5 - Chronic kidney disease, stage 5 Calcium 08/12/23 N18.9 - Chronic kidney disease, unspecified, D63.1 - Anemia in chronic kidney disease, N18.5 - Chronic kidney disease, stage 5 IRON PROFILE 08/12/23 N18.5 - Chronic kidney disease, stage 5, N18.9 - Chronic kidney disease, unspecified, D63.1 - Anemia in chronic kidney disease Electrolytes 08/12/23 N18.9 - Chronic kidney disease, unspecified, D63.1 - Anemia in chronic kidney disease, N18.5 - Chronic kidney disease, stage 5 Blood Urea Nitrogen 08/12/23 N18.9 - Chronic kidney disease, unspecified, D63.1 - Anemia in chronic kidney disease, N18.5 - Chronic kidney disease, stage 5 PTHI 08/12/23 N18.9 - Chronic kidney disease, unspecified, D63.1 - Anemia in chronic kidney disease, N18.5 - Chronic kidney disease, stage 5 Medications: New diclofenac sodium 1% (Arthritis Pain (diclofenac)) apply to single knee, ankle, foot; for foot includes sole/toes/top of foot 4 grams topical QID 100 grams 0RF sodium bicarbonate 650 mg PO DAILY PRN 30 tabs 0RF acidosis Coding Level of Care Code Est Pt Level 4 (21616) Diagnoses CKD (chronic kidney disease) stage 5, GFR less than 15 ml/min N18.5 Essential hypertension I10 Anemia due to stage 5 chronic kidney disease, not on chronic dialysis N18.5; D63.1 Chronic kidney disease stage: stage 5, not on chronic dialysis
[2023-08-12 14:03] VITALS: BP 144/60; PULSE 97; BMI 24.0
== END 2023-08-12 14:35 | disposition home or self-care (01) ==
LOC: HO.HKA 13:57
PROVIDERS: PCP Internal Medicine; Visit Provider Internal Medicine Hypertension Specialist
DX: N18.5 Chronic kidney disease, stage 5 (principal); I12.0 Hypertensive chronic kidney disease with stage 5 chronic kidney disease or end stage renal disease; D63.1 Anemia in chronic kidney disease
CPT/HCPCS: 99214

== ENCOUNTER 2023-08-12 13:57 | Outpatient (REF) | payer OTHER, SELFPAY ==
[2023-08-12 15:38] LABS: Hemoglobin 10.3 g/dl (14.0-18.0); Mean Corpuscular HGB Conc 33.2 g/dl (31.0-36.0); Mean Corpuscular Hemoglobin 30.7 pg (27.0-33.0); Mean Corpuscular Volume 92.3 fL (80.0-98.0); Mean Platelet Volume 10.3 fL (9.4-12.4); Platelet Count 263 X10*3/uL (160-400); Red Blood Count 3.36 X10*6/uL (4.60-5.80); Red Cell Distribution Width 16.3 % (11.0-16.0); White Blood Count 7.6 X10*3/uL (4.8-10.8)
[2023-08-12 16:21] LABS: Anion Gap 14 (12-20); Blood Urea Nitrogen 43 mg/dL (9-16); Calcium 8.1 mg/dL (8.4-10.2); Carbon Dioxide 20 mmol/L (22-29); Chloride 110 mmol/L (96-108); Iron 66 mcg/dL (45-160); Percent Iron Saturation 32 % (15-50); Potassium 4.8 mmol/L (3.3-5.1); Sodium 139 mmol/L (135-145); Total Iron Binding Capacity 205 mcg/dL (228-428); Unsaturated Iron Binding 139 ug/dL
[2023-08-12 18:13] LABS: Estimated Glomerular Filt Rate 14
[2023-08-15 12:52] LABS: PTHI 266 pg/mL (16-77)
== END 2023-08-12 13:58 | disposition home or self-care (01) ==
LOC: HO.LAB 13:57
PROVIDERS: PCP Internal Medicine; Visit Provider Internal Medicine Hypertension Specialist
DX: I12.0 Hypertensive chronic kidney disease with stage 5 chronic kidney disease or end stage renal disease (principal); N18.5 Chronic kidney disease, stage 5; D63.1 Anemia in chronic kidney disease
CPT/HCPCS: 36415; 80051; 82310; 82565; 83540; 83970; 84520; 85027

== ENCOUNTER 2023-08-22 11:11 | Outpatient (AMB) | payer OTHER, SELFPAY ==
[2023-08-22 11:12] VITALS: BP 150/80; PULSE 67; O2SAT 100; BMI 25.1
--- NOTE | 2023-08-22 11:12 | HO.NEPHOV ---
HPI HPI Comments History of Present Illness Details 78-year-old man history of CKD findings setting of longstanding hypertension diabetes mellitus. He is here for his Procrit injection. Today he has no new complaints. [facility] Medical History Other and unspecified hyperlipidemia Essential hypertension Edema of both feet Prostate cancer Gout Hyperlipidemia Diabetes Surgical History History of hernia surgery Family History Mother No problems noted. Father No problems noted. Social History Alcohol intake: never Patient Tobacco Use Status: Never used Tobacco e-Cigarette/Vaping Use: Never Used Second Hand Smoke Exposure: No service: No Current occupational status: retired Current occupation: rt handed Cognitive needs: No Hearing needs: No Vision needs: No Vital Signs 08/22/23 11:12 Height 5 ft 7 in Weight 160 lb 8 oz BMI 25.1 BP 150/80 H Blood Pressure Location Lt brachial Position Sitting Pulse 67 Pulse Oximetry (%) 100 Oxygen Delivery Method Room Air Physical Exam Vital Signs: Last Vital Signs Pulse 67 08/22/23 11:12 BP 150/80 H 08/22/23 11:12 Pulse Ox 100 08/22/23 11:12 Oxygen Delivery Method Room Air 08/22/23 11:12 BMI result Body Mass Index 25.1 Assessment & Plan Assessment & Plan (1) Anemia due to chronic kidney disease: Code(s): N18.9 - Chronic kidney disease, unspecified; D63.1 - Anemia in chronic kidney disease Qualifiers: Chronic kidney disease stage: stage 5, not on chronic dialysis Qualified Code(s): N18.5 - Chronic kidney disease, stage 5; D63.1 - Anemia in chronic kidney disease Plan: Anemia due to CKD. Hemoglobin is low. Administered the Retacrit 76530 units subcutaneously and tolerated well. (2) CKD (chronic kidney disease) stage 5, GFR less than 15 ml/min: Code(s): N18.5 - Chronic kidney disease, stage 5 Plan: CKD 5. No signs or symptoms of uremia. He is approaching end stage renal disease. No indication for dialysis yet (3) Essential hypertension: Code(s): I10 - Essential (primary) hypertension Plan: Hypertension blood pressure is suboptimal today. Blood pressure has been well controlled until recently. I asked him to recheck his blood pressure at home if start blood pressure stays above 140 mmHg I will readjust his medications. Stay on low-sodium diet (4) Metabolic acidosis: Code(s): E87.20 - Acidosis, unspecified Plan: Bicarbonate is decreased to 20 millimoles. Sodium bicarbonate 650 mg p.o. once a day as been prescribed Orders: Orders PTHI 8 Weeks D63.1 - Anemia in chronic kidney disease, N18.5 - Chronic kidney disease, stage 5, N18.9 - Chronic kidney disease, unspecified Complete Blood Count no Diff 8 Weeks D63.1 - Anemia in chronic kidney disease, N18.5 - Chronic kidney disease, stage 5, N18.9 - Chronic kidney disease, unspecified Electrolytes 8 Weeks D63.1 - Anemia in chronic kidney disease, N18.5 - Chronic kidney disease, stage 5, N18.9 - Chronic kidney disease, unspecified Blood Urea Nitrogen 8 Weeks D63.1 - Anemia in chronic kidney disease, N18.5 - Chronic kidney disease, stage 5, N18.9 - Chronic kidney disease, unspecified Creatinine 8 Weeks D63.1 - Anemia in chronic kidney disease, N18.5 - Chronic kidney disease, stage 5, N18.9 - Chronic kidney disease, unspecified Calcium 8 Weeks D63.1 - Anemia in chronic kidney disease, N18.5 - Chronic kidney disease, stage 5, N18.9 - Chronic kidney disease, unspecified Medications: Changed From sodium bicarbonate 650 mg PO BID To sodium bicarbonate 650 mg PO DAILY 90 tabs 3RF Coding Level of Care Code Est Pt Level 4 (82320) Diagnoses Anemia due to stage 5 chronic kidney disease, not on chronic dialysis N18.5; D63.1 Chronic kidney disease stage: stage 5, not on chronic dialysis CKD (chronic kidney disease) stage 5, GFR less than 15 ml/min N18.5 Essential hypertension I10 Metabolic acidosis E87.20
== END 2023-08-22 11:32 | disposition home or self-care (01) ==
PROVIDERS: PCP Internal Medicine; Visit Provider Internal Medicine Hypertension Specialist
DX: I12.0 Hypertensive chronic kidney disease with stage 5 chronic kidney disease or end stage renal disease (principal); N18.5 Chronic kidney disease, stage 5; D63.1 Anemia in chronic kidney disease; E87.20 Acidosis, unspecified
CPT/HCPCS: 99214

== ENCOUNTER → 2023-08-22 11:11 | Outpatient (BNVA) | payer OTHER, SELFPAY | PROVIDERS: PCP Internal Medicine; Visit Provider Internal Medicine Hypertension Specialist | DX: N18.5 Chronic kidney disease, stage 5 (principal); D63.1 Anemia in chronic kidney disease; E11.22 Type 2 diabetes mellitus with diabetic chronic kidney disease; I12.0 Hypertensive chronic kidney disease with stage 5 chronic kidney disease or end stage renal disease; E87.20 Acidosis, unspecified | CPT/HCPCS: 96372; Q5106 ==

== ENCOUNTER 2023-10-13 11:25 | Outpatient (REF) | payer OTHER, SELFPAY ==
[2023-10-13 14:07] LABS: Hematocrit 27.3 % (42.0-52.0); Hemoglobin 9.1 g/dl (14.0-18.0); Mean Corpuscular HGB Conc 33.3 g/dl (31.0-36.0); Mean Corpuscular Hemoglobin 29.3 pg (27.0-33.0); Mean Corpuscular Volume 87.8 fL (80.0-98.0); Mean Platelet Volume 10.3 fL (9.4-12.4); Platelet Count 296 X10*3/uL (160-400); Red Blood Count 3.11 X10*6/uL (4.60-5.80); Red Cell Distribution Width 14.9 % (11.0-16.0); White Blood Count 11.2 X10*3/uL (4.8-10.8)
== END 2023-10-13 11:26 | disposition home or self-care (01) ==
LOC: HO.10HDL 11:25
PROVIDERS: Visit Provider Internal Medicine Hypertension Specialist
DX: N18.5 Chronic kidney disease, stage 5 (principal); D63.1 Anemia in chronic kidney disease
CPT/HCPCS: 36415; 80051; 82310; 82565; 84520; 85027

== ENCOUNTER 2023-10-13 12:09 | Outpatient (AMB) | payer OTHER, SELFPAY ==
[2023-10-13 12:32] VITALS: BP 136/70; PULSE 62; O2SAT 98; BMI 24.2
--- NOTE | 2023-10-13 12:32 | MHC.PC.OV ---
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 Accompanied by: Self / Same As Patient Allergies No Known Allergies [No Known Allergies*] Allergy (Verified 10/13/23 12:32) Tobacco use date assessed: 10/13/23 Fall risk assessment: No Falls in past year Last assessed Fall Risk: 10/13/23 Dental Screening Dental Screen Date: 10/13/23 Did you have a dental visit in the last 12 months?: Yes Did you have a dental problem in the last 6 months where you did not have access to dental care?: No Was dental information given to patient?: Patient has dentist HPI follow up HPI Details Unfortunately, on his suffered from an intracerebral bleed and is under comfort measures at [facility]. Patient is dealing with the stress. He had a routine appointment today to discuss his baseline health. He is compliant with all medications. Continues to see the audiometric technician. Able to function and do activities of daily living. Able to drive. [facility] Medical History Other and unspecified hyperlipidemia Essential hypertension Edema of both feet Prostate cancer Gout Hyperlipidemia Diabetes Surgical History History of hernia surgery Family History Mother No problems noted. Father No problems noted. Social History Alcohol intake: never Patient Tobacco Use Status: Never used Tobacco e-Cigarette/Vaping Use: Never Used Second Hand Smoke Exposure: No service: No Current occupational status: retired Current occupation: rt handed Cognitive needs: No Hearing needs: No Vision needs: No Questionnaire PHQ-9 Over the last 2 weeks, how often have you been bothered by any of the following problems? 1. Little interest or pleasure in doing things: not at all 2. Feeling down, depressed, or hopeless: not at all 3. Trouble falling or staying asleep, or sleeping too much: not at all 4. Feeling tired or having little energy: not at all 5. Poor appetite or overeating: not at all 6. Feeling bad about yourself - or that you are a failure or have let yourself or your family down: not at all 7. Trouble concentrating on things, such as reading the newspaper or watching television: not at all 8. Moving or speaking so slowly that other people could have noticed. Or the opposite - being so fidgety or restless that you have been moving around a lot more than usual: not at all 9. Thoughts that you would be better off or of hurting yourself in some way: not at all Total score: 0 Depression Screening Interpretation: Negative Depression Screening Done: Yes Source: Developed by Drs. Jorge Correa, Dominique Johnson, Andre Torres and colleagues, with an educational john from [employer]. Thrive Questionnaire Date Thrive assessed: 10/13/23 I am a: Patient What is your living situation today?: I have a steady place to live Within the past 12 months, did the food you bought not last and you didn't have the money to get more?: Never true Within the past 12 months, did you worry whether your food would run out before you got money to buy more?: Never true Do you have trouble paying for medicines?: No Do you have trouble getting transportation to medical appointments?: No Do you have trouble paying your heating and electricity bill?: No Do you have trouble taking care of your child, family member or friend?: No Do you have trouble with day-to-day activities such as bathing, preparing meals, shopping, managing finances, etc.?: No Are you currently unemployed and looking for a job?: No Are you interested in more education?: No Please select the resources that you would like help with: None Currently or been in a relationship where the following occur: no concerns reported AUDIT C Alcohol Use Questionnaire (AUDIT-C) 1. How often do you have a drink containing alcohol?: Never Total Score: 0 ALISA-7 AMB Questionnaire ALISA-7 Date ALISA - 7 assessed: 10/13/23 Feeling nervous, anxious, or on edge: 0 = Not at all Not being able to stop or control worryin = Not at all Worrying too much about different things: 0 = Not at all Trouble relaxin = Not at all Being so restless that it is hard to sit still: 0 = Not at all Becoming easily annoyed or irritable: 0 = Not at all Feeling afraid as if something awful might happen: 0 = Not at all Total ALISA-7 score (0-4 normal; 5-9 mild; 10-14 moderate; 15-21 severe): 0 Source: Developed by Drs. Jorge Correa, Dominique Johnson, Andre Torres and colleagues, with an educational john from [employer]. Physical exam (Primary Care) Vital Signs: Last Vital Signs Pulse 62 10/13/23 12:32 BP 136/70 10/13/23 12:32 Pulse Ox 98 10/13/23 12:32 Oxygen Delivery Method Room Air 10/13/23 12:32 BMI result Body Mass Index 24.2 Tobacco/Smoking Status: Tobacco use Status Tobacco use date assessed 10/13/23 10/13/23 12:33 Patient Tobacco Use Status Never used Tobacco 10/13/23 12:33 e-Cigarette/Vaping Use Never Used 10/13/23 12:33 PHQ-9: PHQ-9 Score PHQ-9: Total score 0 10/13/23 12:33 Depression Screening Interpretation: Negative Thrive Assessment: Date of Thrive Assessment Date Thrive assessed 10/13/23 10/13/23 12:33 Currently or been in a relationship where the following occur: no concerns reported Const General: cooperative and healthy appearing Nutritional Appearance: well nourished Orientation/consciousness: patient oriented x3 Limitations: no limitations HENMT Head: Yes normal to inspection Eyes General: appearance normal, both eyes and all related structures Neck Neck: Yes normal visual inspection Chest Chest palpation & inspection: normal palpation of entire chest wall Resp Effort & Inspection: normal respiratory effort Neuro General: patient oriented x3 Assessment and Plan Assessment & Plan (1) CKD (chronic kidney disease) stage 5, GFR less than 15 ml/min: Code(s): N18.5 - Chronic kidney disease, stage 5 Plan: Condition is stable. Continue current medications. Coding Level of Care Code Est Pt Level 3 (57851) Diagnoses CKD (chronic kidney disease) stage 5, GFR less than 15 ml/min N18.5
== END 2023-10-13 12:58 | disposition home or self-care (01) ==
PROVIDERS: PCP Internal Medicine; Visit Provider Internal Medicine
DX: N18.5 Chronic kidney disease, stage 5 (principal)
CPT/HCPCS: 99213

== ENCOUNTER 2023-10-17 11:46 | Outpatient (AMB) | payer OTHER, SELFPAY ==
--- NOTE | 2023-10-17 11:46 | HO.NEPHOV ---
[facility] Medical History Other and unspecified hyperlipidemia Essential hypertension Edema of both feet Prostate cancer Gout Hyperlipidemia Diabetes Surgical History History of hernia surgery Family History Mother No problems noted. Father No problems noted. Social History Alcohol intake: never Patient Tobacco Use Status: Never used Tobacco e-Cigarette/Vaping Use: Never Used Second Hand Smoke Exposure: No service: No Current occupational status: retired Current occupation: rt handed Cognitive needs: No Hearing needs: No Vision needs: No Vital Signs 10/17/23 11:47 Height 5 ft 7 in Weight 156 lb 3 oz BMI 24.5 BP 154/52 H Blood Pressure Location Rt brachial Position Sitting Pulse 71 Pulse Source Pulse Oximeter Pulse Oximetry (%) 99 Oxygen Delivery Method Room Air Physical Exam Vital Signs: Last Vital Signs Pulse 71 10/17/23 11:47 BP 154/52 H 10/17/23 11:47 Pulse Ox 99 10/17/23 11:47 Oxygen Delivery Method Room Air 10/17/23 11:47 BMI result Body Mass Index 24.5 Assessment & Plan Assessment & Plan (1) Anemia due to chronic kidney disease: Code(s): N18.9 - Chronic kidney disease, unspecified; D63.1 - Anemia in chronic kidney disease Qualifiers: Chronic kidney disease stage: stage 5, not on chronic dialysis Qualified Code(s): N18.5 - Chronic kidney disease, stage 5; D63.1 - Anemia in chronic kidney disease Plan: Anemia due to CKD. Hemoglobin is low. Administered the Retacrit 25101 units subcutaneously and tolerated well. (2) CKD (chronic kidney disease) stage 5, GFR less than 15 ml/min: Code(s): N18.5 - Chronic kidney disease, stage 5 Plan: CKD 5. No signs or symptoms of uremia. He is approaching end stage renal disease. No indication for dialysis yet (3) Essential hypertension: Code(s): I10 - Essential (primary) hypertension Plan: Hypertension blood pressure is suboptimal today. Blood pressure has been well controlled until recently. I asked him to recheck his blood pressure at home if start blood pressure stays above 140 mmHg I will readjust his medications. Stay on low-sodium diet (4) Metabolic acidosis: Code(s): E87.20 - Acidosis, unspecified Plan: Bicarbonate is decreased to 20 millimoles. Sodium bicarbonate 650 mg p.o. once a day as been prescribed Orders: Orders AMB Epoetin Injection Patient Supplied (NC) 10/17/23 D63.1 - Anemia in chronic kidney disease, N18.9 - Chronic kidney disease, unspecified Medications: New epoetin kelley 10,000 units subcut ONCE 1 mL 0RF D63.1 - Anemia in chronic kidney disease, N18.9 - Chronic kidney disease, unspecified Coding Level of Care Code Est Pt Level 4 (29267) Diagnoses Anemia due to stage 5 chronic kidney disease, not on chronic dialysis N18.5; D63.1 Chronic kidney disease stage: stage 5, not on chronic dialysis CKD (chronic kidney disease) stage 5, GFR less than 15 ml/min N18.5 Essential hypertension I10 Metabolic acidosis E87.20 Results Reviewed Nephrology Results: Hgb 9.1 g/dl (14.0-18.0) L 10/13/23 WBC 11.2 X10*3/uL (4.8-10.8) H 10/13/23 Plt Count 296 X10*3/uL (160-400) 10/13/23 Sodium 139 mmol/L (135-145) 10/13/23 Potassium 4.3 mmol/L (3.3-5.1) 10/13/23 Chloride 108 mmol/L (96-108) 10/13/23 Carbon Dioxide 21 mmol/L (22-29) L 10/13/23 BUN 51 mg/dL (9-16) H 10/13/23 Creatinine 4.55 mg/dL (0.5-1.4) H* 10/13/23 Calcium 9.3 mg/dL (8.4-10.2) 10/13/23 PTH Intact 266 pg/mL (16-77) H 08/12/23
--- NOTE | 2023-10-17 11:46 | HO.NEPHOV ---
HPI HPI Comments History of Present Illness Details 78-year-old man history of CKD findings setting of longstanding hypertension diabetes mellitus. He is here for his Procrit injection. Today he has no new complaints. His had a stroke and currently at [facility] Medical History Other and unspecified hyperlipidemia Essential hypertension Edema of both feet Prostate cancer Gout Hyperlipidemia Diabetes Surgical History History of hernia surgery Family History Mother No problems noted. Father No problems noted. Social History Alcohol intake: never Patient Tobacco Use Status: Never used Tobacco e-Cigarette/Vaping Use: Never Used Second Hand Smoke Exposure: No service: No Current occupational status: retired Current occupation: rt handed Cognitive needs: No Hearing needs: No Vision needs: No Vital Signs 10/17/23 11:47 Height 5 ft 7 in Weight 156 lb 3 oz BMI 24.5 BP 154/52 H Blood Pressure Location Rt brachial Position Sitting Pulse 71 Pulse Source Pulse Oximeter Pulse Oximetry (%) 99 Oxygen Delivery Method Room Air Physical Exam Vital Signs: Last Vital Signs Pulse 71 10/17/23 11:47 BP 154/52 H 10/17/23 11:47 Pulse Ox 99 10/17/23 11:47 Oxygen Delivery Method Room Air 10/17/23 11:47 BMI result Body Mass Index 24.5 Const General: comfortable Nutritional Appearance: well nourished Orientation/consciousness: patient oriented x3 HEENT Head: No normal to inspection Mouth: moist mucous membranes Neck Neck: Yes supple and Yes no JVD Resp Auscultation: clear to auscultation bilaterally, no rales and rub present Cardio Jugular venous distension: no JVD Palpation: no palpable S3 and no palpable S4 Heart sounds: no rubs GI Palpation (GI): Soft to palpation and nontender Percussion: No Fluid wave present General: Yes no CVA tenderness Back/Spine/Pelvis Back: no CVA tenderness Skin General skin exam: no rashes or lesions noted Neuro General: patient oriented x3 Extrem General: Yes no pedal edema and No clubbing Assessment & Plan Assessment & Plan (1) Anemia due to chronic kidney disease: Code(s): N18.9 - Chronic kidney disease, unspecified; D63.1 - Anemia in chronic kidney disease Qualifiers: Chronic kidney disease stage: stage 5, not on chronic dialysis Qualified Code(s): N18.5 - Chronic kidney disease, stage 5; D63.1 - Anemia in chronic kidney disease Plan: Anemia due to CKD. Hemoglobin is low. Administered the Retacrit 98383 units subcutaneously and tolerated well. (2) CKD (chronic kidney disease) stage 5, GFR less than 15 ml/min: Code(s): N18.5 - Chronic kidney disease, stage 5 Plan: CKD 5. No signs or symptoms of uremia. He is approaching end stage renal disease. No indication for dialysis yet (3) Essential hypertension: Code(s): I10 - Essential (primary) hypertension Plan: Hypertension blood pressure is suboptimal today. Blood pressure has been well controlled until recently. I asked him to recheck his blood pressure at home if start blood pressure stays above 140 mmHg I will readjust his medications. Stay on low-sodium diet (4) Metabolic acidosis: Code(s): E87.20 - Acidosis, unspecified Plan: Bicarbonate is decreased to 20 millimoles. Sodium bicarbonate 650 mg p.o. once a day as been prescribed Orders: Orders AMB Epoetin Injection Patient Supplied (NC) Today D63.1 - Anemia in chronic kidney disease, N18.9 - Chronic kidney disease, unspecified Medications: New epoetin kelley 10,000 units subcut ONCE 1 mL 0RF D63.1 - Anemia in chronic kidney disease, N18.9 - Chronic kidney disease, unspecified Coding Level of Care Code Est Pt Level 4 (82302) Diagnoses Anemia due to stage 5 chronic kidney disease, not on chronic dialysis N18.5; D63.1 Chronic kidney disease stage: stage 5, not on chronic dialysis CKD (chronic kidney disease) stage 5, GFR less than 15 ml/min N18.5 Essential hypertension I10 Metabolic acidosis E87.20 Results Reviewed Nephrology Results: Hgb 9.1 g/dl (14.0-18.0) L 10/13/23 WBC 11.2 X10*3/uL (4.8-10.8) H 10/13/23 Plt Count 296 X10*3/uL (160-400) 10/13/23 Sodium 139 mmol/L (135-145) 10/13/23 Potassium 4.3 mmol/L (3.3-5.1) 10/13/23 Chloride 108 mmol/L (96-108) 10/13/23 Carbon Dioxide 21 mmol/L (22-29) L 10/13/23 BUN 51 mg/dL (9-16) H 10/13/23 Creatinine 4.55 mg/dL (0.5-1.4) H* 10/13/23 Calcium 9.3 mg/dL (8.4-10.2) 10/13/23 PTH Intact 266 pg/mL (16-77) H 08/12/23
[2023-10-17 11:47] VITALS: BP 154/52; PULSE 71; O2SAT 99; BMI 24.5
== END 2023-10-17 12:12 | disposition home or self-care (01) ==
PROVIDERS: PCP Internal Medicine; Visit Provider Internal Medicine Hypertension Specialist
DX: N18.5 Chronic kidney disease, stage 5 (principal); D63.1 Anemia in chronic kidney disease; I12.0 Hypertensive chronic kidney disease with stage 5 chronic kidney disease or end stage renal disease; E87.20 Acidosis, unspecified
CPT/HCPCS: 99214

== ENCOUNTER → 2023-10-17 11:46 | Outpatient (BNVA) | payer OTHER, SELFPAY | PROVIDERS: PCP Internal Medicine; Visit Provider Internal Medicine Hypertension Specialist | DX: I12.0 Hypertensive chronic kidney disease with stage 5 chronic kidney disease or end stage renal disease (principal); E11.22 Type 2 diabetes mellitus with diabetic chronic kidney disease; N18.5 Chronic kidney disease, stage 5; D63.1 Anemia in chronic kidney disease; E87.20 Acidosis, unspecified | CPT/HCPCS: 96372; Q5106 ==

== ENCOUNTER 2023-12-12 12:30 | Outpatient (REF) | payer OTHER, SELFPAY ==
[2023-12-13 05:38] LABS: Parathyroid Hormone Intact 21.7 pg/mL (8.7-77.1)
== END 2023-12-12 12:31 | disposition home or self-care (01) ==
LOC: HO.10HDL 12:30
PROVIDERS: Visit Provider Internal Medicine Hypertension Specialist
DX: N18.9 Chronic kidney disease, unspecified (principal); D63.1 Anemia in chronic kidney disease
CPT/HCPCS: 36415; 83970

== ENCOUNTER 2023-12-15 13:25 | Outpatient (REF) | payer OTHER, SELFPAY ==
[2023-12-15 14:50] LABS: Hematocrit 27.8 % (42.0-52.0); Hemoglobin 9.2 g/dl (14.0-18.0); Mean Corpuscular HGB Conc 33.1 g/dl (31.0-36.0); Mean Corpuscular Hemoglobin 29.1 pg (27.0-33.0); Mean Platelet Volume 10.4 fL (9.4-12.4); Platelet Count 291 X10*3/uL (160-400); Red Blood Count 3.16 X10*6/uL (4.60-5.80); Red Cell Distribution Width 14.5 % (11.0-16.0); White Blood Count 9.7 X10*3/uL (4.8-10.8)
[2023-12-15 16:01] LABS: Anion Gap 11 (12-20); Blood Urea Nitrogen 44 mg/dL (9-16); Calcium 10.9 mg/dL (8.4-10.2); Carbon Dioxide 27 mmol/L (22-29); Chloride 101 mmol/L (96-108); Estimated Glomerular Filt Rate 12; Glucose Random 493 mg/dL (60-115); Iron 24 mcg/dL (45-160); Percent Iron Saturation 13 % (15-50); Potassium 4.3 mmol/L (3.3-5.1); Sodium 135 mmol/L (135-145); Total Iron Binding Capacity 181 mcg/dL (228-428); Unsaturated Iron Binding 157 ug/dL
== END 2023-12-15 13:26 | disposition home or self-care (01) ==
LOC: HO.LAB 13:25
PROVIDERS: PCP Internal Medicine; Visit Provider Internal Medicine Hypertension Specialist
DX: N18.5 Chronic kidney disease, stage 5 (principal); D63.1 Anemia in chronic kidney disease
CPT/HCPCS: 36415; 80048; 83540; 83970; 85027

== ENCOUNTER 2023-12-15 13:25 | Outpatient (AMB) | payer OTHER, SELFPAY ==
[2023-12-15 13:28] VITALS: BP 138/58; PULSE 71; O2SAT 97; BMI 22.3
--- NOTE | 2023-12-15 13:28 | HO.NEPHOV ---
HPI HPI Comments History of Present Illness Details 78-year-old man history of CKD findings setting of longstanding hypertension diabetes mellitus. in Oct 2023 Did not have lab work No specific complaints besides fatigue Says he feels good Lost about 8 lbs [facility] Medical History Other and unspecified hyperlipidemia Essential hypertension Edema of both feet Prostate cancer Gout Hyperlipidemia Diabetes Surgical History History of hernia surgery Family History Mother No problems noted. Father No problems noted. Social History Alcohol intake: never Patient Tobacco Use Status: Never used Tobacco e-Cigarette/Vaping Use: Never Used Second Hand Smoke Exposure: No service: No Current occupational status: retired Current occupation: rt handed Cognitive needs: No Hearing needs: No Vision needs: No Vital Signs 12/15/23 13:28 Height 5 ft 7 in Weight 142 lb 6 oz BMI 22.3 BP 138/58 L Blood Pressure Location Lt brachial Position Sitting Pulse 71 Pulse Source Pulse Oximeter Pulse Oximetry (%) 97 Oxygen Delivery Method Room Air Physical Exam Vital Signs: Last Vital Signs Pulse 71 12/15/23 13:28 BP 138/58 L 12/15/23 13:28 Pulse Ox 97 12/15/23 13:28 Oxygen Delivery Method Room Air 12/15/23 13:28 BMI result Body Mass Index 22.3 Const General: comfortable Nutritional Appearance: well nourished Orientation/consciousness: patient oriented x3 HEENT Head: No normal to inspection Mouth: moist mucous membranes Neck Neck: Yes supple and Yes no JVD Resp Auscultation: clear to auscultation bilaterally, no rales and rub present Cardio Jugular venous distension: no JVD Palpation: no palpable S3 and no palpable S4 Heart sounds: no rubs GI Palpation (GI): Soft to palpation and nontender Percussion: No Fluid wave present General: Yes no CVA tenderness Back/Spine/Pelvis Back: no CVA tenderness Skin General skin exam: no rashes or lesions noted Neuro General: patient oriented x3 Extrem General: Yes no pedal edema and No clubbing Assessment & Plan Assessment & Plan (1) Anemia due to chronic kidney disease: Code(s): N18.9 - Chronic kidney disease, unspecified; D63.1 - Anemia in chronic kidney disease Qualifiers: Chronic kidney disease stage: stage 5, not on chronic dialysis Qualified Code(s): N18.5 - Chronic kidney disease, stage 5; D63.1 - Anemia in chronic kidney disease Plan: Anemia due to CKD. Hemoglobin is low. Needs Retacrit Will obtain PA and restart (2) CKD (chronic kidney disease) stage 5, GFR less than 15 ml/min: Code(s): N18.5 - Chronic kidney disease, stage 5 Plan: CKD 5. No signs or symptoms of uremia. He is approaching end stage renal disease. No indication for dialysis yet (3) Essential hypertension: Code(s): I10 - Essential (primary) hypertension Plan: Hypertension blood pressure is acceptable Stay on low-sodium diet (4) Metabolic acidosis: Code(s): E87.20 - Acidosis, unspecified Plan: Bicarbonate is decreased to 20 millimoles. Sodium bicarbonate 650 mg p.o. once a day as been prescribed Orders: Orders IRON PROFILE Today D63.1 - Anemia in chronic kidney disease, N18.5 - Chronic kidney disease, stage 5, N18.9 - Chronic kidney disease, unspecified Complete Blood Count no Diff Today D63.1 - Anemia in chronic kidney disease, N18.5 - Chronic kidney disease, stage 5, N18.9 - Chronic kidney disease, unspecified Parathyroid Hormone Intact Today D63.1 - Anemia in chronic kidney disease, N18.5 - Chronic kidney disease, stage 5, N18.9 - Chronic kidney disease, unspecified Basic Metabolic Panel Today D63.1 - Anemia in chronic kidney disease, N18.5 - Chronic kidney disease, stage 5, N18.9 - Chronic kidney disease, unspecified Coding Level of Care Code Est Pt Level 4 (80849) Diagnoses Anemia due to stage 5 chronic kidney disease, not on chronic dialysis N18.5; D63.1 Chronic kidney disease stage: stage 5, not on chronic dialysis CKD (chronic kidney disease) stage 5, GFR less than 15 ml/min N18.5 Essential hypertension I10 Metabolic acidosis E87.20 Results Reviewed Nephrology Results: Hgb 9.1 g/dl (14.0-18.0) L 10/13/23 WBC 11.2 X10*3/uL (4.8-10.8) H 10/13/23 Plt Count 296 X10*3/uL (160-400) 10/13/23 Sodium 139 mmol/L (135-145) 10/13/23 Potassium 4.3 mmol/L (3.3-5.1) 10/13/23 Chloride 108 mmol/L (96-108) 10/13/23 Carbon Dioxide 21 mmol/L (22-29) L 10/13/23 BUN 51 mg/dL (9-16) H 10/13/23 Creatinine 4.55 mg/dL (0.5-1.4) H* 10/13/23 Calcium 9.3 mg/dL (8.4-10.2) 10/13/23 PTH Intact 21.7 pg/mL (8.7-77.1) 12/12/23
== END 2023-12-15 13:43 | disposition home or self-care (01) ==
PROVIDERS: PCP Internal Medicine; Visit Provider Internal Medicine Hypertension Specialist
DX: N18.5 Chronic kidney disease, stage 5 (principal); D63.1 Anemia in chronic kidney disease; I12.0 Hypertensive chronic kidney disease with stage 5 chronic kidney disease or end stage renal disease; E87.20 Acidosis, unspecified
CPT/HCPCS: 99214

== ENCOUNTER 2024-01-16 12:18 | Outpatient (REF) | payer OTHER, SELFPAY ==
[2024-01-16 13:51] LABS: Prostate Specific Antigen 3.16 ng/mL (<0.05-4.0)
[2024-01-16 14:07] LABS: Parathyroid Hormone Intact 84.2 pg/mL (8.7-77.1)
[2024-01-20 15:13] LABS: Testosterone, Total 134 ng/dL (250-1100)
== END 2024-01-16 12:19 | disposition home or self-care (01) ==
LOC: HO.10HDL 12:18
PROVIDERS: Internal Medicine Hypertension Specialist; Visit Provider Urology
DX: Z12.5 Encounter for screening for malignant neoplasm of prostate (principal); C61 Malignant neoplasm of prostate
CPT/HCPCS: 36415; 83970; 84153; 84403

== ENCOUNTER 2024-01-19 13:44 | Outpatient (AMB) | payer OTHER, SELFPAY ==
--- NOTE | 2024-01-19 13:30 | HO.NEPHOV ---
HPI HPI Comments History of Present Illness Details 78-year-old man history of CKD findings setting of longstanding hypertension diabetes mellitus. in Oct 2023 No specific complaints besides fatigue Overal doing OK No issues PFSH Medical History Other and unspecified hyperlipidemia Essential hypertension Edema of both feet Prostate cancer Gout Hyperlipidemia Diabetes Surgical History History of hernia surgery Family History Mother No problems noted. Father No problems noted. Social History Housing: House Alcohol intake: never Patient Tobacco Use Status: Never used Tobacco e-Cigarette/Vaping Use: Never Used Second Hand Smoke Exposure: No service: No Current occupational status: retired Current occupation: rt handed Cognitive needs: No Hearing needs: No Vision needs: No Vital Signs 01/19/24 13:45 Height 5 ft 7 in Weight 149 lb BMI 23.3 BP 140/46 H Blood Pressure Location Lt brachial Position Sitting Pulse 66 Pulse Source Pulse Oximeter Pulse Oximetry (%) 98 Oxygen Delivery Method Room Air Physical Exam Const General: comfortable Nutritional Appearance: well nourished Orientation/consciousness: patient oriented x3 HEENT Head: No normal to inspection Mouth: moist mucous membranes Neck Neck: Yes supple and Yes no JVD Resp Auscultation: clear to auscultation bilaterally, no rales and rub present Cardio Jugular venous distension: no JVD Palpation: no palpable S3 and no palpable S4 Heart sounds: no rubs GI Palpation (GI): Soft to palpation and nontender Percussion: No Fluid wave present General: Yes no CVA tenderness Back/Spine/Pelvis Back: no CVA tenderness Skin General skin exam: no rashes or lesions noted Neuro General: patient oriented x3 Extrem General: Yes no pedal edema and No clubbing Assessment & Plan Assessment & Plan (1) Anemia due to chronic kidney disease: Code(s): N18.9 - Chronic kidney disease, unspecified; D63.1 - Anemia in chronic kidney disease Qualifiers: Chronic kidney disease stage: stage 5, not on chronic dialysis Qualified Code(s): N18.5 - Chronic kidney disease, stage 5; D63.1 - Anemia in chronic kidney disease Plan: Anemia due to CKD. Hemoglobin is low. Administered Retacrit 94903 units subcutaneously left arm no immediate complications (2) CKD (chronic kidney disease) stage 5, GFR less than 15 ml/min: Code(s): N18.5 - Chronic kidney disease, stage 5 Plan: CKD 5. No signs or symptoms of uremia. He is approaching end stage renal disease. No indication for dialysis yet (3) Essential hypertension: Code(s): I10 - Essential (primary) hypertension Plan: Hypertension blood pressure is acceptable Stay on low-sodium diet (4) Metabolic acidosis: Code(s): E87.20 - Acidosis, unspecified Plan: Sodium bicarbonate 650 mg p.o. once a day as been prescribed Plan Mild hypercalcemia Decrease calcium supplementation to 1 tablet today insert of 2 Of note blood sugar seems suboptimal recent blood sugar was 460 with a A1c of 11.5% I have discussed importance of tight control blood sugar to slow the progression of renal disease. Coding Level of Care Code Est Pt Level 4 (51693) Diagnoses Anemia due to stage 5 chronic kidney disease, not on chronic dialysis N18.5; D63.1 Chronic kidney disease stage: stage 5, not on chronic dialysis CKD (chronic kidney disease) stage 5, GFR less than 15 ml/min N18.5 Essential hypertension I10 Metabolic acidosis E87.20 Results Reviewed Nephrology Results: Hgb 9.2 g/dl (14.0-18.0) L 12/15/23 WBC 9.7 X10*3/uL (4.8-10.8) 12/15/23 Plt Count 291 X10*3/uL (160-400) 12/15/23 Sodium 135 mmol/L (135-145) 12/15/23 Potassium 4.3 mmol/L (3.3-5.1) 12/15/23 Chloride 101 mmol/L (96-108) 12/15/23 Carbon Dioxide 27 mmol/L (22-29) 12/15/23 BUN 44 mg/dL (9-16) H 12/15/23 Creatinine 4.64 mg/dL (0.5-1.4) H* 12/15/23 Calcium 10.9 mg/dL (8.4-10.2) H 12/15/23 PTH Intact 84.2 pg/mL (8.7-77.1) H 01/16/24
[2024-01-19 13:45] VITALS: BP 140/46; PULSE 66; O2SAT 98; BMI 23.3
== END 2024-01-19 14:00 | disposition home or self-care (01) ==
LOC: HO.HKA 13:44
PROVIDERS: PCP Internal Medicine; Visit Provider Internal Medicine Hypertension Specialist
DX: N18.5 Chronic kidney disease, stage 5 (principal); D63.1 Anemia in chronic kidney disease; I12.0 Hypertensive chronic kidney disease with stage 5 chronic kidney disease or end stage renal disease; E87.20 Acidosis, unspecified
CPT/HCPCS: 99214

== ENCOUNTER → 2024-01-19 13:44 | Outpatient (BNVA) | payer OTHER, SELFPAY | PROVIDERS: PCP Internal Medicine; Visit Provider Internal Medicine Hypertension Specialist | DX: I12.0 Hypertensive chronic kidney disease with stage 5 chronic kidney disease or end stage renal disease (principal); E11.22 Type 2 diabetes mellitus with diabetic chronic kidney disease; N18.5 Chronic kidney disease, stage 5; D63.1 Anemia in chronic kidney disease; E87.20 Acidosis, unspecified | CPT/HCPCS: 99212; Q5106 ==

== ENCOUNTER 2024-02-01 10:57 | Outpatient (AMB) | payer OTHER, SELFPAY ==
--- NOTE | 2024-02-01 11:02 | A.OFFVIS_ITS ---
Intake Visit Reasons: 6M LABS/Prolia(set) Intake Note: Patient is Present for Follow Up Urology Medication: Terazosin, Prolia Antibiotic Allergies: None Blood Thinners:None Allergies No Known Allergies [No Known Allergies*] Allergy (Verified 01/19/24 13:47) HPI Comments Details: Jorge is a pleasant male. He is a patient of . 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 Initial diagnosis with Dr. Chakraborty Initial therapy active surveillance Prior therapies - was on GnRH for extended period Laboratories - 03/30 PSA < 0.1, T 4, 07/30 <0.1, 12/01 <0.1 T 42, 05/31 0.4 T 56, 12/02 1.4 T 88, 08/01 1.6 84, 01/31 3.2 134 Current therapy includes Prolia every 6 months with Citracal Associated conditions - diabetes Imaging - 06/30 DEXA scan with osteoporosis secondary to hormone usage - 07/02 DEXA severe osteoporosis secondary to hormone therapy Did have broken right arm 2020 Lower urinary tract symptoms Urinary urgency Urinary frequency Responds well to tamsulosin PFSH Medical History Other and unspecified hyperlipidemia Essential hypertension Edema of both feet Prostate cancer Gout Hyperlipidemia Diabetes Surgical History History of hernia surgery Family History Mother No problems noted. Father No problems noted. Social History Housing: House Alcohol intake: never Patient Tobacco Use Status: Never used Tobacco e-Cigarette/Vaping Use: Never Used Second Hand Smoke Exposure: No service: No Current occupational status: retired Current occupation: rt handed Cognitive needs: No Hearing needs: No Vision needs: No Review of Systems Const Denies chills and Denies fever(s) Card Reports no additional complaints and Denies syncope Resp Denies cough GI Denies abdominal pain and Denies heartburn Reports as per HPI and Denies change in libido Neuro Denies syncope Psych Denies change in libido Endo Denies change in libido Physical Exam Const General: cooperative, healthy appearing, comfortable and no acute distress Orientation/consciousness: patient oriented x3 HEENT Face and sinus: Yes normal facial exam Mouth: moist mucous membranes Neck Neck: Yes normal visual inspection, Yes full ROM and Yes trachea midline Chest Chest palpation & inspection: normal inspection of the chest Resp Effort & Inspection: normal respiratory effort, able to speak in complete sentences and no respiratory distress GI Inspection: Yes normal to inspection Back/Spine/Pelvis Cervical Spine: normal cervical lordosis Thoracic/Lumbar Spine: thoracic and lumbar spine normal to inspection Skin General skin exam: no rashes or lesions noted Neuro General: patient oriented x3, gait normal, tone normal and moves all extremities Extrem General: Yes normal to inspection and Yes capillary refill normal Office Meds Prolia 60 mg/mL subcutaneous syringe Performing Provider: Fuad Card MD 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 60 mg subcut right arm 1 mL [id number] 12/07/25 21754-127-22 [facility]GEN Assessment & Plan Assessment & Plan (1) Osteoporosis due to androgen therapy: Code(s): M81.8 - Other osteoporosis without current pathological fracture; T38.7X5A - Adverse effect of androgens and anabolic congeners, initial encounter Category: Medical (2) Prostate cancer: Comment: Long-term GnRH therapy Code(s): C61 - Malignant neoplasm of prostate Category: Medical Plan Polaris injection today Six-month follow-up lab work and polaris Orders: Orders AMB Denosumab Injection Practice Supplied Today M81.8 - Other osteoporosis without current pathological fracture, M85.80 - Other specified disorders of bone density and structure, unspecified site, T38.7X5A - Adverse effect of androgens and anabolic congeners, initial encounter Prostate Specific Antigen 6 Months C61 - Malignant neoplasm of prostate Testosterone, Total 6 Months C61 - Malignant neoplasm of prostate Patient Instructions: Imaging studies, laboratory and physical exam results were discussed and reviewed in detail. No major barriers to patient understanding were identified. An opportunity to ask questions regarding the treatment plan was provided. All questions were answered. The patient expressed understanding and agreement with the above treatment plan. The patient is aware they should contact our office by phone for worsening of their current condition or the appearance of new urologic symptoms. Compliance is encouraged with any medications and followup testing that is ordered. It is a privilege to participate in the urologic care of your patient. If you have any questions or concerns regarding treatment for the above conditions, or other urologic issues, please do not hesitate to contact me. The office telephone contact is [phone]. This note is constructed using voice recognition software. While every effort has been made to ensure accuracy plastics spreading machine operator errors may have been included. Yours sincerely, Dr Fuad Card MD, [facility] - Urology Providers of Expert, Compassionate Care for the Genitourinary System Coding Level of Care Code Est Pt Level 3 (31508) Diagnoses Osteoporosis due to androgen therapy M81.8; T38.7X5A Prostate cancer C61
== END 2024-02-01 12:01 | disposition home or self-care (01) ==
PROVIDERS: PCP Internal Medicine; Visit Provider Urology
DX: M81.8 Other osteoporosis without current pathological fracture (principal); T38.7X5A Adverse effect of androgens and anabolic congeners, initial encounter; M85.80 Other specified disorders of bone density and structure, unspecified site; C61 Malignant neoplasm of prostate
CPT/HCPCS: 99213

== ENCOUNTER → 2024-02-01 10:57 | Outpatient (BNVA) | payer OTHER, SELFPAY | PROVIDERS: PCP Internal Medicine; Visit Provider Urology | DX: C61 Malignant neoplasm of prostate (principal); M81.8 Other osteoporosis without current pathological fracture; T38.7X5A Adverse effect of androgens and anabolic congeners, initial encounter | CPT/HCPCS: 96372; J0897 ==

== ENCOUNTER 2024-02-10 11:41 | Outpatient (REF) | payer OTHER, SELFPAY ==
[2024-02-10 13:08] LABS: Hematocrit 25.7 % (42.0-52.0); Hemoglobin 8.4 g/dl (14.0-18.0); Mean Corpuscular HGB Conc 32.7 g/dl (31.0-36.0); Mean Corpuscular Hemoglobin 30.4 pg (27.0-33.0); Mean Corpuscular Volume 93.1 fL (80.0-98.0); Mean Platelet Volume 10.2 fL (9.4-12.4); Platelet Count 242 X10*3/uL (160-400); Red Blood Count 2.76 X10*6/uL (4.60-5.80); Red Cell Distribution Width 15.4 % (11.0-16.0); White Blood Count 7.5 X10*3/uL (4.8-10.8)
[2024-02-10 13:31] LABS: Iron 36 mcg/dL (45-160); Percent Iron Saturation 19 % (15-50); Total Iron Binding Capacity 186 mcg/dL (228-428); Unsaturated Iron Binding 150 ug/dL
== END 2024-02-10 11:42 | disposition home or self-care (01) ==
LOC: HO.10HDL 11:41
PROVIDERS: Visit Provider Internal Medicine Hypertension Specialist
DX: N18.5 Chronic kidney disease, stage 5 (principal); D63.1 Anemia in chronic kidney disease
CPT/HCPCS: 36415; 83540; 85027

== ENCOUNTER 2024-02-21 09:57 | Emergency (ER) | payer OTHER, SELFPAY ==
[2024-02-21] VITALS (9 sets, daily range): BP systolic 130–137; BP diastolic 59–65; PULSE 68–92; RESP 21–34; TEMP 36.4–37.6; O2SAT 84–97; BMI 27.1
--- NOTE | 2024-02-21 | ECG_ITS ---
Test Reason : cp Blood Pressure : / mmHG Vent. Rate : 095 BPM Atrial Rate : 095 BPM P-R Int : 160 ms QRS Dur : 090 ms QT Int : 350 ms P-R-T Axes : 055 053 200 degrees QTc Int : 439 ms Normal sinus rhythm Possible Anterior infarct , age undetermined ST & T wave abnormality, consider lateral ischemia Abnormal ECG No previous ECGs available Referred By: Generic ED Physician Electronically Signed By:SLICK ORDONEZ MD
--- NOTE | ~2024-02-21 | XR_ITS ---
EXAMINATION: XR CHEST CLINICAL INFORMATION: Dyspnea with left-sided pain COMPARISON: Chest radiograph 06/20/2015 -report only Right shoulder 07/02/2021 TECHNIQUE: Frontal view of the chest was obtained. FINDINGS: Heart size upper limits of normal. There is pulmonary vascular congestion with bronchial thickening and increased interstitial markings and some airspace disease. Trace left pleural effusion may be present. There is an old healed fracture of the right humeral head. XR/XR chest 1V IMPRESSION: Findings most consistent with CHF.
--- NOTE | 2024-02-21 07:00 | CA_ITS ---
Transthoracic Echocardiogram Patient (Last, First, Middle): Jorge Wilder J Gender: Male Date of : 1945 Age: 78 Procedure Date: 02/21/2024 Procedure Type: Transthoracic Echocardiogram Location: ER Height: 162.56 cm Weight: 71.22 kg BSA: 1.76 m2 Heart Rate: bpm BP: 122 / 59 mmHg Admissions Officer: Referring MD: Huey Llanes MD Hvac Installer: Huey Llanes MD Symptoms: Acute pulmonary edema Study Quality: Adequate w Contrast ECG Rhythm: Sinus Conclusions: - 1. Mildly dilated left ventricle with severe LV systolic dysfunction with LVEF of 20-25% with regional wall motion abnormality which could represent LAD territory wall motion abnormality worse is stress-induced cardiomyopathy with pseudonormal filling pattern 2. Mildly dilated left atrium 3. Cardiac valvular Dopplers within normal limits 4. Normal measured RV systolic pressure with mildly elevated right atrial pressures 5. No gross pericardial effusion Findings Procedure Information Contrast agent, definity, is being given per protocol without apparent complications. Left Ventricle Mildly increased left ventricular cavity size. There is normal left ventricular wall thickness. The left ventricular systolic function is severely decreased. The visually estimated ejection fraction is between 20 25%. Spectral Doppler is indicative of a pseudonormal filling pattern. E/E prime ratio is between 8 and 15 consistent with indeterminate filling pressures. Wall Motion Rest Echo Findings The basal anterior, mid anterior, basal inferoseptal, mid anterolateral, and basal anteroseptal segments are hypokinetic. The apex, apical anterior, apical lateral, apical septum, mid inferoseptal, and mid anteroseptal segments are akinetic. All other scored wall segments showed normal motion. Right Ventricle Normal right ventricular cavity size and systolic function. Atria The left atrium is mildly dilated. There is no evidence of interatrial shunt by color Doppler and contrast. The right atrium is normal in size. Aortic Valve There is mild calcification of the aortic valve. There is no aortic valve stenosis. There is no aortic valve regurgitation. Mitral Valve There is mild anterior and posterior mitral leaflet thickening. There is mild mitral valve regurgitation. There is no mitral valve stenosis. Pulmonic Valve The pulmonic valve was not well visualized. Tricuspid Valve Likely normal tricuspid valve structure and function. There is mild tricuspid valve regurgitation. Normal right atrial pressure. There is no evidence of pulmonary hypertension. Great Vessels The aorta was not well visualized. The pulmonary artery was not well visualized. Venous The inferior vena cava is mildly dilated and collapses less than 50% with inspiration. Pericardium/Pleural There is no evidence of pericardial effusion. Prior Study Comparison Significant changes compared to prior study dated: 03/25/2022. LV systolic function has significantly reduced with new regional wall motion abnormalities Measurements 2D Linear Measurements IVSd: 0.79 0.6-0.9/0.6-1.0 cm LVIDd: 6.26 3.9-5.3/4.2-5.9 cm LVIDd Index: 3.56 2.4-3.2/2.2-3.1 cm/m2 LVIDs: 5.12 2.0-3.6 cm LVPWd: 1.14 0.7-1.1 cm Ao Root: 2.60 2.1-3.5 cm LA Diam: 3.90 2.7-3.8/3.0-4.0 cm LAIDs Index: 2.22 1.5-2.3 cm/m2 LV Mass: 316.83 67-162/88-224 g LV Mass Index: 180.02 43-95/49-115 g/m2 LVOT Diam: 1.90 3.0+(-)1.3 cm 2D Systolic Function EF 4C: 22.30 >55% EF 2C: 27.10 >55% EF BiP: 22.20 >55% Mitral Valve MV Pk E: 0.91 MV PK A: 0.50 MV Decel Time: 162.00 E/A: 1.80 E'Lateral: 9.25 E'Medial: 6.42 E/E' Med: 14.10 E/E' Lat: 9.80 PHT: 47.00 MVA PHT: 4.68 Decel Scott: 5.60 Aortic Valve AoV Pk Jl: 1.92 AoV Mn Jl: 1.35 AoV VTI: 0.47 AoV Pk Grad: 15.00 Aov Mn Grad: 8.00 MARY BETH Cont.VTI: 1.13 LVOT LVOT Pk Jl: 0.80 LVOT Mn Jl: 0.52 LVOT VTI: 0.19 LVOT Pk Grad: 3.00 LVOT Mn Grad: 1.00 LVOT Diam: 1.90 LVOT Area: 2.84 Diastolic Function MV Pk E: 0.91 MV Pk A: 0.50 E/A: 1.80 E'Medial: 6.42 E/E' Med: 14.10 E' Laterial: 9.25 E/E' Lat: 9.80 Right Ventricle TAPSE (mm): 22.00 TVS' Jl: 16.00 Tricuspid Valve TR Pk Jl: 2.55 TR Pk Grad: 26.00 RA Press: 8.00 RVSP: 34.00 Great Vessels Aorta Ao Root-2D: 2.60 2.0-3.7 cm Updated in Other Vendor System with Status of Final Huey Llanes MD electronically signed on 02/21/2024 2:26:14 PM with status of Final
--- NOTE | 2024-02-21 10:14 | ED_ITS ---
HPI - Chest Pain General Chief Complaint: Chest Pain Stated Complaint: Chest Pain Time Seen by Provider: 02/21/24 10:14 History of Present Illness HPI narrative: The patient is a 78-year-old male who says he has not felt well since yesterday afternoon at around 16:00. At that time he was putting out the trash and became fatigued and short of breath. Apparently the shortness of breath persisted throughout the night. He also had diarrhea. This morning his family felt that he was obviously short of breath and brought him to the hospital. EN route to the hospital he started complaining of some left sided pectoral discomfort. No fever, sweats, chills. He has never had shortness of breath or chest discomfort like this before. Related Data Home Medications ?Medication ?Instructions ?Recorded ?Confirmed lancets 28 gauge #100 ea 09/30/20 07/19/23 blood-glucose meter #1 ea 11/17/20 07/19/23 ferrous fumarate 325 mg (106 mg 325 mg PO BID 12/15/22 07/19/23 iron) tablet (Alexandra) Previous Rx's ?Medication ?Instructions ?Recorded blood sugar diagnostic (FreeStyle #100 ea 07/25/20 Test strips) betamethasone dipropionate 0.05 % 1 appl topical BID PRN skin 11/17/20 topical cream irritation #15 grams trazodone 100 mg tablet 100 mg PO BEDTIME sleep 30 days 01/06/21 #30 tabs calcium citrate 315 mg-vitamin D3 2 tab PO DAILY 90 days #180 tabs 07/30/21 5 mcg (200 unit) tablet (Calcium Citrate + D) diclofenac sodium 1 % topical gel 4 g topical QID #100 grams 08/12/23 (Arthritis Pain (diclofenac)) sodium bicarbonate 650 mg tablet 650 mg PO DAILY #90 tabs 08/22/23 terazosin 5 mg capsule 5 mg PO BEDTIME 90 days #90 caps 09/08/23 amlodipine 10 mg tablet 10 mg PO DAILY #90 tabs 09/09/23 pen needle, diabetic 29 gauge x #100 ea 09/09/2310/11 pravastatin 20 mg tablet 20 mg PO DAILY #90 tabs 09/09/23 levothyroxine 25 mcg tablet 25 mcg PO DAILY #90 tabs 11/24/23 (Synthroid) sodium bicarbonate 650 mg tablet 650 mg PO DAILY #30 tabs 12/08/23 insulin glargine 100 unit/mL (3 15 unit (0.15 mL) subcut QPM 90 12/26/23 mL) subcutaneous pen (Lantus days #13.5 mL Solostar U-100 Insulin) mupirocin 2 % topical ointment 1 appl topical BID #15 grams 12/26/23 allopurinol 100 mg tablet 100 mg PO DAILY #90 tabs 01/16/24 sitagliptin phosphate 100 mg 100 mg PO DAILY #90 tabs 01/24/24 tablet (Januvia) Allergies Allergy/AdvReac Type Severity Reaction Status Date / Time No Known Allergies Allergy Verified 02/21/24 10:14 [No Known Allergies*] Review of Systems 2 Review of Systems: Yes all other systems are reviewed and are negative [facility] Past Medical History Medical History Other and unspecified hyperlipidemia Essential hypertension Edema of both feet Prostate cancer Gout Hyperlipidemia Diabetes Surgical History History of hernia surgery Family History Family History Mother No problems noted. Father No problems noted. Social History Social History Housing: House Alcohol intake: never Patient Tobacco Use Status: Never used Tobacco Smoked in Last 30 Days: No e-Cigarette/Vaping Use: Never Used Second Hand Smoke Exposure: No Use of substances other than those prescribed or required for medical reasons: No Advance Directives: No Advance Directives Information Provided: Yes Do you have a plan to hurt others: No Plan service: No Current occupational status: retired Current occupation: rt handed Cognitive needs: No Hearing needs: No Vision needs: No Physical Exam 2 Vital Signs: Vital Signs: Last Vital Signs Temp 97.6 F 02/21/24 10:08 Pulse 76 02/21/24 11:28 Resp 26 H 02/21/24 11:28 BP 135/63 02/21/24 11:28 Pulse Ox 96 02/21/24 11:28 O2 Del Method Ambu-Bag 02/21/24 11:28 FiO2 50 02/21/24 11:28 BMI result Body Mass Index 27.1 Const: Other: The patient is a 78-year-old male who was awake and alert and looked short of breath with increased work of breathing. HEENT: Other: Face is symmetrical. Mucous membranes moist. Eyes: Other: Pupils are round equal, conjunctivae clear Neck: Other: Suggestion of possible elevated JVD Resp: Other: The patient was tachypneic. There was increased work of breathing. There were crackles throughout. Cardio: Rate: regular rate Rhythm: regular rhythm Heart sounds: S1 normal heart sound present and S2 normal heart sound present GI: Other: Abdomen is soft and nontender Skin: Other: The skin was pale and dry. The skin of the lower legs was edematous. Neuro: Other: The patient is awake and alert. Mental status was clear. Face was symmetrical. Moving extremities symmetrically. Extrem: Other: One to 2+ pitting edema of the lower legs Medications Administered Generic Name Dose Route Start Last Admin Trade Name Freq PRN Reason Stop Dose Admin Heparin Sodium/Sodium Chloride 25,000 unit in 250 mls @ 0 mls/hr 02/21/24 12:00 02/21/24 12:56 Heparin Sodium,Porcine/1/2ns IVCONT 12 units/kg/hr .Q0M CHERYL 8.59 mls/hr Administration Protocol Per Protocol Nitroglycerin 0.4 mg 02/21/24 10:22 02/21/24 10:30 Nitroglycerin 0.4 Mg Tab.Subl SUBLINGUAL 0.4 mg Q5MX3 PRN Administration Chest Pain Discontinued Medications Generic Name Dose Route Start Last Admin Trade Name Freq PRN Reason Stop Dose Admin Aspirin 324 mg 02/21/24 10:30 02/21/24 10:35 Aspirin 81 Mg Tab.Chew PO 02/21/24 10:31 324 mg ONCE ONE Administration Furosemide 80 mg 02/21/24 11:54 02/21/24 12:22 Furosemide 100 Mg/10 Ml Vial IVPUSH 02/21/24 11:55 80 mg ONCE ONE Administration Protocol Heparin Sodium (Porcine) 4,000 unit 02/21/24 11:55 02/21/24 12:52 Heparin Sodium,Porcine 5,000 Unit/Ml Vial IVPUSH 02/21/24 11:56 4,000 unit ONCE ONE Administration Nitroglycerin 1 inch 02/21/24 10:45 05/14/24 10:51 Nitroglycerin 2 % Oint 1 Gm Packet TRANSDERMA 02/21/24 10:46 1 inch ONCE ONE Administration Medical Decision Making Medical Decision Making [facility] Narrative: The patient is a 78-year-old male with a history of chronic kidney disease and type 2 diabetes who presents with shortness of breath that started at 4PM yesterday afternoon. He was apparently short of breath throughout the night and still this morning. His family ultimately decided he would come to the hospital. He developed some left-sided chest pain in route to the hospital. Here he looked unwell with increased work of breathing. His EKG shows a new elevation of the ST segments in the anterior leads but without significant reciprocal changes. My overall impression was that this was probably not a true acute STEMI. He was given nitroglycerin. He was given oxygen and ultimately placed on BiPAP. He was given nitro glycerin paste and aspirin. Labs were done that show an elevated troponin. The patient's creatinine is 5 which is close to his baseline. His BNP is also elevated. Chest x-ray shows CHF. I consulted Dr. Llanes of Cardiology who came to see the patient and also recommended furosemide. The patient was given 80 mg of IV furosemide. A bedside echo was done that shows a wall motion abnormality in the region of the LAD. With this information Dr. Llanes recommended transfer to [facility]. The patient has been accepted in transfer. I have also ordered 80 mg of atorvastatin. The patient's chest pain resolved during his treatment in the emergency room. The accepting physician at [facility]'s Dr. Curran. Lab Data 02/21/24 12:35 02/21/24 10:28 Labs: Lab Results 02/21/24 02/21/24 02/21/24 Range/Units 03:00 10:27 10:28 WBC 17.3 H (4.8-10.8) X10*3/uL RBC 2.94 L (4.60-5.80) X10*6/uL Hgb 9.1 L (14.0-18.0) g/dl Hct 27.9 L (42.0-52.0) % MCV 94.9 (80.0-98.0) fL MCH 31.0 (27.0-33.0) pg MCHC 32.6 (31.0-36.0) g/dl RDW 15.4 (11.0-16.0) % Plt Count 282 (160-400) X10*3/uL MPV 10.4 (9.4-12.4) fL Immature Gran % (Auto) 0.6 H (0.0-0.4) % Neut % (Auto) 92.0 H (45-73) % Lymph % (Auto) 3.7 L (20-40) % [place] % (Auto) 3.3 (2-11) % Eos % (Auto) 0.1 (0-4) % Baso % (Auto) 0.3 (0-2) % Lymph # (Auto) 0.6 L (1.2-4.9) X10*3/uL [place] # (Auto) 0.6 (0.1-1.2) X10*3/uL Eos # (Auto) 0.0 (0.0-0.4) X10*3/uL Baso # (Auto) 0.1 (0.0-0.2) X10*3/uL Abs Immat Gran (auto) 0.10 H (0.00-0.03) X10*3/uL Absolute Neuts (auto) 15.9 H (2.0-8.3) x10*3/uL Absolute Nucleated RBC 0.000 (0.0-0.012) X10*3/uL Nucleated RBC % (auto) 0.0 (0.0-0.2) /100WBC Smear Tech's Comments VERIFIED PT 13.9 H (11.1-13.3) SEC INR 1.1 (0.9-1.1) APTT 24.9 L (26.0-36.8) SEC aPTT Heparin Protocol (53-77.9) SEC VBG pH (7.32-7.43) VBG pCO2 mmHg VBG pO2 mmHg VBG HCO3 (22-26) mmol/L VBG O2 Saturation % VBG Base Excess mmol/L Sodium 138 (135-145) mmol/L Potassium 5.7 H D (3.3-5.1) mmol/L Chloride 110 H (96-108) mmol/L Carbon Dioxide 12 L (22-29) mmol/L Anion Gap 22 H (12-20) BUN 57 H (9-16) mg/dL Creatinine 5.07 H* (0.5-1.4) mg/dL Estim Creat Clear Calc 10.7 Estimated GFR 11 Random Glucose 466 H* (60-115) mg/dL Calcium 7.7 L D (8.4-10.2) mg/dL Magnesium 2.1 (1.6-2.6) mg/dL Total Bilirubin 0.6 (0.0-1.0) mg/dL Direct Bilirubin 0.2 (0.0-0.5) mg/dL AST 19 (5-37) U/L ALT 11 (0-40) U/L Alkaline Phosphatase 73 (39-117) U/L Troponin I High Sens 1165.9 H* (<3.5-35.0) ng/L C-Reactive Protein 8.04 H (< or = 0.50) mg/dL B-Natriuretic Peptide 1546 H (<100) pg/mL Total Protein 7.5 (6.5-8.0) g/dL Albumin 3.7 (3.5-5.0) g/dL Procalcitonin 0.19 ng/mL Stool H. pylori Ag Cancelled Influenza Type A (PCR) NEGATIVE (Negative) Influenza Type B (PCR) NEGATIVE (Negative) RSV RNA Qual (PCR) NEGATIVE (Negative) SARS-CoV-2 RNA (RT-PCR) NEGATIVE (Negative) 02/21/24 02/21/24 Range/Units 10:30 12:35 WBC 14.1 H (4.8-10.8) X10*3/uL RBC 2.76 L (4.60-5.80) X10*6/uL Hgb 8.5 L (14.0-18.0) g/dl Hct 25.7 L (42.0-52.0) % MCV 93.1 (80.0-98.0) fL MCH 30.8 (27.0-33.0) pg MCHC 33.1 (31.0-36.0) g/dl RDW 15.3 (11.0-16.0) % Plt Count 263 (160-400) X10*3/uL MPV 10.6 (9.4-12.4) fL Immature Gran % (Auto) (0.0-0.4) % Neut % (Auto) (45-73) % Lymph % (Auto) (20-40) % [place] % (Auto) (2-11) % Eos % (Auto) (0-4) % Baso % (Auto) (0-2) % Lymph # (Auto) (1.2-4.9) X10*3/uL [place] # (Auto) (0.1-1.2) X10*3/uL Eos # (Auto) (0.0-0.4) X10*3/uL Baso # (Auto) (0.0-0.2) X10*3/uL Abs Immat Gran (auto) (0.00-0.03) X10*3/uL Absolute Neuts (auto) (2.0-8.3) x10*3/uL Absolute Nucleated RBC 0.000 (0.0-0.012) X10*3/uL Nucleated RBC % (auto) 0.0 (0.0-0.2) /100WBC Smear Tech's Comments PT 13.5 H (11.1-13.3) SEC INR 1.1 (0.9-1.1) APTT (26.0-36.8) SEC aPTT Heparin Protocol 27.3 L (53-77.9) SEC VBG pH 7.31 L (7.32-7.43) VBG pCO2 27 mmHg VBG pO2 67 mmHg VBG HCO3 13 L (22-26) mmol/L VBG O2 Saturation 93.0 % VBG Base Excess -11.0 mmol/L Sodium (135-145) mmol/L Potassium (3.3-5.1) mmol/L Chloride (96-108) mmol/L Carbon Dioxide (22-29) mmol/L Anion Gap (12-20) BUN (9-16) mg/dL Creatinine (0.5-1.4) mg/dL Estim Creat Clear Calc Estimated GFR Random Glucose (60-115) mg/dL Calcium (8.4-10.2) mg/dL Magnesium (1.6-2.6) mg/dL Total Bilirubin (0.0-1.0) mg/dL Direct Bilirubin (0.0-0.5) mg/dL AST (5-37) U/L ALT (0-40) U/L Alkaline Phosphatase (39-117) U/L Troponin I High Sens (<3.5-35.0) ng/L C-Reactive Protein (< or = 0.50) mg/dL B-Natriuretic Peptide (<100) pg/mL Total Protein (6.5-8.0) g/dL Albumin (3.5-5.0) g/dL Procalcitonin ng/mL Stool H. pylori Ag Influenza Type A (PCR) (Negative) Influenza Type B (PCR) (Negative) RSV RNA Qual (PCR) (Negative) SARS-CoV-2 RNA (RT-PCR) (Negative) Independent Interpretation I performed an independent interpretation of an: EKG Interpretation: EKG at 09:57 shows normal sinus rhythm at 95 beats per minute. There is mild ST segment elevation V1 through V3 that is new from previous EKGs. No significant reciprocal changes. Critical Care Time Critical Care Time Critical Care Time: Yes Total Critical Care Time: 70 Attestation: The patient was critically ill with a high probability of imminent or life- threatening deterioration. ?I spent greater than 30 minutes of discontinuous time evaluating the patient, delivering critical care at the bedside, discussing evaluating data with consultants. ?Critical care time does not include time spent performing separately billable procedures or teaching. ?Time spent performing critical care with 70 minutes. Discharge Plan Discharge Clinical Impression: Acute congestive heart failure, Respiratory failure with hypoxia, Acute coronary syndrome Patient Disposition: [facility] Transfer Details: [facility] Prescriptions: No Action (DME) FreeStyle Test Strip See Rx Instructions .ROUTE .MEDSUPPLY Qty: 100 1RF Rx Instructions: As directed twice a day trazodone 100 mg tablet 100 mg PO BEDTIME 30 Days Qty: 30 0RF terazosin 5 mg capsule 5 mg PO BEDTIME 90 Days Qty: 90 1RF pravastatin 20 mg tablet 20 mg PO DAILY Qty: 90 1RF (DME) pen needle, diabetic 29 gauge x 1/2 needle See Rx Instructions subcut DAILY Qty: 100 1RF Rx Instructions: As directed 1x daily amlodipine 10 mg tablet 10 mg PO DAILY Qty: 90 1RF levothyroxine [Synthroid] 25 mcg tablet 25 mcg PO DAILY Qty: 90 0RF sodium bicarbonate 650 mg tablet 650 mg PO DAILY Qty: 30 3RF allopurinol 100 mg tablet 100 mg PO DAILY Qty: 90 1RF Rx Instructions: please schedule a visit for refills Januvia 100 mg tablet 100 mg PO DAILY Qty: 90 1RF (DME) blood-glucose meter Kit See Rx Instructions .ROUTE BID Qty: 1 Rx Instructions: As directed betamethasone dipropionate 0.05 % cream 1 appl topical BID PRN (Reason: skin irritation) Qty: 15 0RF mupirocin 2 % ointment 1 appl topical BID Qty: 15 0RF insulin glargine [Lantus Solostar U-100 Insulin] 100 unit/mL (3 mL) insulin pen 15 unit subcut QPM 90 Days Qty: 13.5 3RF (DME) lancets 28 gauge misc See Rx Instructions topical BID Qty: 100 Rx Instructions: As directed calcium citrate-vitamin D3 [Calcium Citrate + D] 315 mg-5 mcg (200 unit) tablet 2 tab PO DAILY 90 Days Qty: 180 1RF Ferretts 325 mg (106 mg iron) tablet 325 mg PO BID epoetin kelley 10,000 unit/mL solution 10,000 unit subcut ONCE Qty: 1 0RF diclofenac sodium [Arthritis Pain (diclofenac)] 1 % gel 4 g topical QID Qty: 100 0RF Rx Instructions: apply to single knee, ankle, foot; for foot includes sole/toes/top of foot sodium bicarbonate 650 mg tablet 650 mg PO DAILY Qty: 90 3RF Print Language: Cymraes
--- NOTE | 2024-02-21 10:14 | ECG_ITS ---
Test Reason : chest pain Blood Pressure : / mmHG Vent. Rate : 074 BPM Atrial Rate : 074 BPM P-R Int : 152 ms QRS Dur : 086 ms QT Int : 420 ms P-R-T Axes : 064 047 110 degrees QTc Int : 466 ms Normal sinus rhythm Cannot rule out Anterior infarct (cited on or before 21-FEB-2024) Abnormal ECG When compared with ECG of 21-FEB-2024 09:57, Nonspecific T wave abnormality no longer evident in Inferior leads Referred By: Gopi Hood Electronically Signed By:SLICK ORDONEZ MD
[2024-02-21] MEDS: Nitroglycerin 0.4 MG TAB.SUBL SUBLINGUAL (10:30)
[2024-02-21 10:34] LABS: Basophils Absolute Auto 0.1 X10*3/uL (0.0-0.2); Basophils Percent Auto 0.3 % (0-2); Eosinophils Percent Auto 0.1 % (0-4); Hematocrit 27.9 % (42.0-52.0); Hemoglobin 9.1 g/dl (14.0-18.0); Imm Gran Pct Auto 0.6 % (0.0-0.4); Lymphocytes Absolute Auto 0.6 X10*3/uL (1.2-4.9); Lymphocytes Percent Auto 3.7 % (20-40); MANUAL DIFF FLAG SCAN; Mean Corpuscular HGB Conc 32.6 g/dl (31.0-36.0); Mean Corpuscular Volume 94.9 fL (80.0-98.0); Mean Platelet Volume 10.4 fL (9.4-12.4); Monocytes Absolute Auto 0.6 X10*3/uL (0.1-1.2); Monocytes Percent Auto 3.3 % (2-11); Neutrophils Absolute Auto 15.9 x10*3/uL (2.0-8.3); Platelet Count 282 X10*3/uL (160-400); Red Blood Count 2.94 X10*6/uL (4.60-5.80); Red Cell Distribution Width 15.4 % (11.0-16.0); SCAN SMEAR FLAG 1; White Blood Count 17.3 X10*3/uL (4.8-10.8)
[2024-02-21] MEDS: Aspirin 81 MG TAB.CHEW 324 MG PO (10:35)
[2024-02-21 10:36] LABS: Venous Blood Gas Refer to POC result
[2024-02-21 10:37] LABS: VBG HCO3 13 mmol/L (22-26); VBG pCO2 27 mmHg; VBG pH 7.31 (7.32-7.43); VBG pO2 67 mmHg
[2024-02-21 10:40] LABS: INTERNATIONAL NORM RATIO 1.1 (0.9-1.1); Prothrombin Time 13.9 SEC (11.1-13.3)
--- NOTE | 2024-02-21 10:44 | PC.RT ---
RT called to bedside for pt in visible respiratory distress. Pt noted to have pitting edema bilateral on legs. Pt lungs coarse crackles bilateral. RT placed pt on V60 bipap 18/10 50%, pt haris well.
[2024-02-21 10:51] LABS: SLIDE REVIEW VERIFIED
[2024-02-21] MEDS: Nitroglycerin 2 % Oint 1 GM Packet 1 INCH TRANSDERMA (10:51)
[2024-02-21 11:07] LABS: B Type Natriuretic Peptide 1546 pg/mL (<100)
[2024-02-21 11:15] LABS: Troponin-I High Sensitivity 1165.9 ng/L (<3.5-35.0)
[2024-02-21 11:15] LABS: Alanine Aminotransferase 11 U/L (0-40); Albumin Level 3.7 g/dL (3.5-5.0); Alkaline Phosphatase 73 U/L (39-117); Anion Gap 22 (12-20); Aspartate Amino Transferase 19 U/L (5-37); Bilirubin Direct 0.2 mg/dL (0.0-0.5); Bilirubin Total 0.6 mg/dL (0.0-1.0); Blood Urea Nitrogen 57 mg/dL (9-16); C Reactive Protein 8.04 mg/dL (< or = 0.50); Calcium 7.7 mg/dL (8.4-10.2); Carbon Dioxide 12 mmol/L (22-29); Chloride 110 mmol/L (96-108); Creatinine Clr Calc Pharmacy 10.7; Estimated Glomerular Filt Rate 11; Glucose Random 466 mg/dL (60-115); Magnesium 2.1 mg/dL (1.6-2.6); Potassium 5.7 mmol/L (3.3-5.1); Sodium 138 mmol/L (135-145); Total Protein 7.5 g/dL (6.5-8.0)
[2024-02-21 11:16] LABS: Influenza A PCR NEGATIVE (Negative); Influenza B PCR NEGATIVE (Negative); Resp Syncy Virus RNA Qual PCR NEGATIVE (Negative); SARS COV2 PCR INHOUSE NEGATIVE (Negative)
--- NOTE | 2024-02-21 12:10 | PM.CNCAR ---
History of Present Illness History of Present Illness Date of Service: 02/21/24 Requesting physician: Gopi Hood Consult reason: congestive heart failure Chief complaint: Acute CHF Narrative: I was consulted to see Jorge in cardiology consultation due to sudden-onset shortness of breath started yesterday. This consult was requested urgently to be seen at bedside. Patient was seen at bedside with his 2 sons and his sister. Patient is currently on BiPAP but able to provide accurate history. Patient follows with Dr. Chang for abnormal myocardial perfusion imaging manage conservatively due to his advanced kidney disease. Patient is currently not on dialysis. Has no invasive procedures performed but has longstanding history of diabetes, hyperlipidemia and hypertension being managed medically. Unusually good state of health able to do his day-to-day activities without any symptoms. Yesterday he was putting his garbage out and was trying to get something out of the garbage can and repeatedly bending over to get something and making an effort and his son was present with him started noticing that he was getting more and more short of breath. He then decided to stay at home continue to remains significantly short of breath overnight and was not able to lay flat and this morning decided come to the emergency room. While coming to the emergency room with left-sided chest pressure/tightness. When he came to the hospital was noted to be in acute respiratory distress with chest x-ray finding consistent with congestive heart failure and was started on BiPAP. Also started on nitro paste which is not been initiated as yet. As mentioned chest x-ray consistent with pulmonary edema. EKG suggestive of new ST T wave changes in the lateral leads suggestive of ischemia. Troponins elevated at 1100. BNP is elevated above 1000 as well. Patient says since the BiPAP therapy his breathing is improved. He has not having any chest tightness Review of Systems Constitutional: Constitutional: Reports no additional constitutional complaints Eyes: Eyes: Reports no additional eye complaints Cardiovascular: Cardiovascular: Reports chest pain at rest, Denies syncope, Denies rapid heart rate, Denies leg edema, Denies lightheadedness, Denies palpitations, Reports dyspnea, Reports dyspnea on exertion and Reports orthopnea Respiratory: Respiratory: Reports dyspnea and Reports dyspnea on exertion Gastrointestinal: Gastrointestinal: Reports no additional gastrointestinal complaints Genitourinary: Genitourinary: Reports no additional male genitourinary complaints Musculoskeletal: Musculoskeletal: Reports no additional musculoskeletal complaints Neurologic: Reports system reviewed and no additional complaints, except as documented and Denies syncope Psychiatric: Psychiatric: Reports no additional psychiatric complaints Endocrine: Endocrine: Reports no additional endocrine complaints and Denies palpitations PMFSH Past Medical History Medical History Other and unspecified hyperlipidemia Essential hypertension Edema of both feet Prostate cancer Gout Hyperlipidemia Diabetes Family History Family History Mother No problems noted. Father No problems noted. Surgical History Surgical History History of hernia surgery Social History Social History Housing: House Alcohol intake: never Patient Tobacco Use Status: Never used Tobacco Smoked in Last 30 Days: No e-Cigarette/Vaping Use: Never Used Second Hand Smoke Exposure: No Use of substances other than those prescribed or required for medical reasons: No Advance Directives: No Advance Directives Information Provided: Yes Do you have a plan to hurt others: No Plan service: No Current occupational status: retired Current occupation: rt handed Cognitive needs: No Hearing needs: No Vision needs: No Meds Allergies Allergy/AdvReac Type Severity Reaction Status Date / Time No Known Allergies Allergy Verified 02/21/24 10:14 [No Known Allergies*] Active Medications: Current Medications Heparin Sodium (Porcine) (Heparin Sodium,Porcine 5,000 Unit/Ml Vial) 2,900 unit 40 unit/kg (2900 unit) IVPUSH PROTOCOL BOLUS PRN; Protocol PRN Reason: 40 unit/kg - Heparin Protocol Heparin Sodium (Porcine) (Heparin Sodium,Porcine 5,000 Unit/Ml Vial) 4,000 unit IVPUSH ONCE ONE Stop: 02/21/24 11:56 Heparin Sodium (Porcine) (Heparin Sodium,Porcine 5,000 Unit/Ml Vial) 5,700 unit 80 unit/kg (5700 unit) IVPUSH PROTOCOL BOLUS PRN; Protocol PRN Reason: 80 unit/kg - Heparin Protocol Heparin Sodium/Sodium Chloride (Heparin Sodium,Porcine/1/2ns) 25,000 unit in 250 mls @ 0 mls/hr IVCONT .Q0M CHERYL; Protocol Nitroglycerin (Nitroglycerin 0.4 Mg Tab.Subl) 0.4 mg SUBLINGUAL Q5MX3 PRN PRN Reason: Chest Pain Last Admin: 02/21/24 10:30 Dose: 0.4 mg Home Medications ?Medication ?Instructions ?Recorded ?Confirmed ?Last Taken ?Type lancets 28 gauge #100 ea 09/30/20 07/19/23 Unknown History blood-glucose meter #1 ea 11/17/20 07/19/23 Unknown History ferrous fumarate 325 mg (106 mg 325 mg PO BID 12/15/22 07/19/23 Unknown History iron) tablet (Alexandra) Physical Exam Vital Signs: Vital Signs: Last Vital Signs Temp 97.6 F 02/21/24 10:08 Pulse 76 02/21/24 11:28 Resp 26 H 02/21/24 11:28 BP 135/63 02/21/24 11:28 Pulse Ox 96 02/21/24 11:28 O2 Del Method Ambu-Bag 02/21/24 11:28 FiO2 50 02/21/24 11:28 BMI result Body Mass Index 27.1 Const: General: cooperative, alert, awake, in distress mild and respiratory and other (On BiPAP) Nutritional Appearance: average body habitus Orientation/consciousness: patient oriented x3 HEENT: Head: Yes normocephalic and Yes atraumatic Neck: Neck: Yes trachea midline, Yes supple and Yes no JVD Resp: Effort & Inspection: respiratory distress (Mild) Auscultation: crackles bilateral Cardio: Rate: regular rate Rhythm: regular rhythm Heart sounds: S1 normal heart sound present, S2 normal heart sound present, no click, no gallops, no murmurs, no rubs and Other heart sounds present (S4 present) GI: Auscultation: normal bowel sounds Skin: General skin exam: no rashes or lesions noted Neuro: General: patient oriented x3 and no focal motor deficits Extrem: General: Yes no clubbing, cyanosis or edema Objective Labs and Meds 02/21/24 10:27 02/21/24 10:28 Lab results: Laboratory Results - last 24 hr 02/21/24 02/21/24 02/21/24 10:27 10:28 10:30 WBC 17.3 H RBC 2.94 L Hgb 9.1 L Hct 27.9 L MCV 94.9 MCH 31.0 MCHC 32.6 RDW 15.4 Plt Count 282 MPV 10.4 Immature Gran % (Auto) 0.6 H Neut % (Auto) 92.0 H Lymph % (Auto) 3.7 L [place] % (Auto) 3.3 Eos % (Auto) 0.1 Baso % (Auto) 0.3 Lymph # (Auto) 0.6 L [place] # (Auto) 0.6 Eos # (Auto) 0.0 Baso # (Auto) 0.1 Abs Immat Gran (auto) 0.10 H Absolute Neuts (auto) 15.9 H Absolute Nucleated RBC 0.000 Nucleated RBC % (auto) 0.0 Smear Tech's Comments VERIFIED PT 13.9 H INR 1.1 VBG pH 7.31 L VBG pCO2 27 VBG pO2 67 VBG HCO3 13 L VBG O2 Saturation 93.0 VBG Base Excess -11.0 Sodium 138 Potassium 5.7 H D Chloride 110 H Carbon Dioxide 12 L Anion Gap 22 H BUN 57 H Creatinine 5.07 H* Estim Creat Clear Calc 10.7 Estimated GFR 11 Random Glucose 466 H* Calcium 7.7 L D Magnesium 2.1 Total Bilirubin 0.6 Direct Bilirubin 0.2 AST 19 ALT 11 Alkaline Phosphatase 73 Troponin I High Sens 1165.9 H* C-Reactive Protein 8.04 H B-Natriuretic Peptide 1546 H Total Protein 7.5 Albumin 3.7 Influenza Type A (PCR) NEGATIVE Influenza Type B (PCR) NEGATIVE RSV RNA Qual (PCR) NEGATIVE SARS-CoV-2 RNA (RT-PCR) NEGATIVE EKG shows normal sinus rhythm with diffuse anterolateral and lateral ST sagging suggestive of ischemia Imaging Radiologist's impression: Impressions Chest X-Ray 02/21/24 10:31 IMPRESSION: Findings most consistent with CHF. Assessment and Plan (1) Acute pulmonary edema: Status: Acute Patient present with findings consistent acute pulmonary edema most likely due to acute ischemia which is at high likelihood. He has stable creatinine at this point time. Clinically improved with BiPAP but requires further treatment. Agree with nitropaste. Will also give him Lasix 80 mg IV push an hour and start him on a drip at 5 mg an hour. Strict intake and output chart needs to be pursued. Continue supportive care. If diuresis and improves can come up BiPAP and on oxygen replacement therapy. Echocardiogram will be performed as soon as possible. Start IV heparin given his elevated troponin high likelihood of underlying acute coronary syndrome causing his acute pulmonary edema. Aspirin high-intensity statin therapy to be prescribed. Hold off on beta-blockers for now given his acute congestive heart failure. Will most likely require cardiac catheterization. Case was discussed with the ED team as well as nephrology will see the patient later. Greater than 40 minutes of time was spent in coordinating his care. Procedures Date of Service Date of Service: 02/21/24
[2024-02-21 12:11] LABS: Procalcitonin 0.19 ng/mL
[2024-02-21] MEDS: Furosemide 100 MG/10 ML VIAL 80 MG IVPUSH (12:22)
[2024-02-21 12:29] LABS: Partial Thromboplastin Time 24.9 SEC (26.0-36.8)
[2024-02-21 12:51] LABS: Hematocrit 25.7 % (42.0-52.0); Hemoglobin 8.5 g/dl (14.0-18.0); Mean Corpuscular HGB Conc 33.1 g/dl (31.0-36.0); Mean Corpuscular Hemoglobin 30.8 pg (27.0-33.0); Mean Corpuscular Volume 93.1 fL (80.0-98.0); Mean Platelet Volume 10.6 fL (9.4-12.4); Platelet Count 263 X10*3/uL (160-400); Red Blood Count 2.76 X10*6/uL (4.60-5.80); Red Cell Distribution Width 15.3 % (11.0-16.0); White Blood Count 14.1 X10*3/uL (4.8-10.8)
[2024-02-21] MEDS: Heparin Sodium,Porcine 5,000 UNIT/ML VIAL 4000 UNIT IVPUSH (12:52)
[2024-02-21] MEDS: Heparin Sodium,Porcine/1/2NS 25,000 UNIT/250 ML IV.SOLN 8.59 UNIT IVCONT (12:56)
[2024-02-21 13:00] LABS: INTERNATIONAL NORM RATIO 1.1 (0.9-1.1); Prothrombin Time 13.5 SEC (11.1-13.3)
[2024-02-21 13:03] LABS: PTT Heparin Drip 27.3 SEC (53-77.9)
--- NOTE | 2024-02-21 14:14 | MHC.EDTECH ---
@14:09 CALL RECEIVED FROM [facility]/JILL Aleman/ ROOM ASSIGNMENT MASS [employer] 3 ROOM 14 RN TO RN: [phone] ACCEPTING MD: DR TONG
--- NOTE | 2024-02-21 14:26 | PC.NURSE ---
patient taken off of bipap, placed on 6L NC, satting 92%, able to speak in clear full sentences. patient is alert and oriented x3. awaiting tx to [facility]
--- NOTE | 2024-02-21 14:42 | P.CONNP_ITS ---
History of Present Illness Reason for Consult Consult date: 02/21/24 Reason for consult: CKD 5 Chief Complaint Chief complaint: Acute CHF History of Present Illness Narrative: Jorge is well known to me. He has a 78-year-old man with a history of CKD 5 in the setting of longstanding diabetes mellitus. His baseline serum creatinine is around 4.5-5 mg/dL and this has been stable for the last 2 years. He has been receiving Epogen injections for anemia. Prior to admission he started developing chest pain and subsequently had shortness of breath. In the ER was found to have pulmonary edema. He has been evaluated Cardiology Currently on BiPAP. He has received 1 dose of Lasix. This consult has been requested for management of renal failure and mild hyperkalemia. Review of Systems Constitutional: Denies fever(s) and Denies weight loss Respiratory: Denies cough and Denies hemoptysis Gastrointestinal: Denies abdominal pain, Denies diarrhea and Denies nausea Musculoskeletal: Denies back pain Denies focal weakness PMFSH Past Medical History Medical History Other and unspecified hyperlipidemia Essential hypertension Edema of both feet Prostate cancer Gout Hyperlipidemia Diabetes Family History Family History Mother No problems noted. Father No problems noted. Surgical History Surgical History History of hernia surgery Social History Social History Housing: House Alcohol intake: never Patient Tobacco Use Status: Never used Tobacco Smoked in Last 30 Days: No e-Cigarette/Vaping Use: Never Used Second Hand Smoke Exposure: No Use of substances other than those prescribed or required for medical reasons: No Advance Directives: No Advance Directives Information Provided: Yes Do you have a plan to hurt others: No Plan service: No Current occupational status: retired Current occupation: rt handed Cognitive needs: No Hearing needs: No Vision needs: No Meds Allergies Allergy/AdvReac Type Severity Reaction Status Date / Time No Known Allergies Allergy Verified 02/21/24 10:14 [No Known Allergies*] Active Medications: Current Medications Heparin Sodium (Porcine) (Heparin Sodium,Porcine 5,000 Unit/Ml Vial) 2,900 unit 40 unit/kg (2900 unit) IVPUSH PROTOCOL BOLUS PRN; Protocol PRN Reason: 40 unit/kg - Heparin Protocol Heparin Sodium (Porcine) (Heparin Sodium,Porcine 5,000 Unit/Ml Vial) 5,700 unit 80 unit/kg (5700 unit) IVPUSH PROTOCOL BOLUS PRN; Protocol PRN Reason: 80 unit/kg - Heparin Protocol Heparin Sodium/Sodium Chloride (Heparin Sodium,Porcine/1/2ns) 25,000 unit in 250 mls @ 0 mls/hr IVCONT .Q0M CHERYL; Protocol Last Admin: 02/21/24 12:56 Dose: 12 units/kg/hr, 8.59 mls/hr Nitroglycerin (Nitroglycerin 0.4 Mg Tab.Subl) 0.4 mg SUBLINGUAL Q5MX3 PRN PRN Reason: Chest Pain Last Admin: 02/21/24 10:30 Dose: 0.4 mg Home Medications ?Medication ?Instructions ?Recorded ?Confirmed ?Last Taken ?Type lancets 28 gauge #100 ea 09/30/20 07/19/23 Unknown History blood-glucose meter #1 ea 11/17/20 07/19/23 Unknown History ferrous fumarate 325 mg (106 mg 325 mg PO BID 12/15/22 07/19/23 Unknown History iron) tablet (Ferretts) Physical Exam Vital Signs: Last Vital Signs Temp 98.0 F 02/21/24 14:29 Pulse 74 02/21/24 14:29 Resp 25 H 02/21/24 14:29 BP 130/64 02/21/24 14:29 Pulse Ox 93 02/21/24 14:29 O2 Del Method Nasal Cannula 02/21/24 14:29 O2 Flow Rate 6 02/21/24 14:29 FiO2 50 02/21/24 11:28 BMI result Body Mass Index 27.1 Awake. Comfortable. Neck is supple. Mucosa moist. Lungs bilateral scattered rhonchi. Heart S1-S2 heard no gallop. Abdomen soft. Extremities no edema. No involuntary movements. No myoclonus. Results Lab Results 02/21/24 12:35 02/21/24 10:28 Lab results: Chemistry 02/21/24 10:28 Sodium 138 Potassium 5.7 H D Carbon Dioxide 12 L BUN 57 H Creatinine 5.07 H* Calcium 7.7 L D Hematology 02/21/24 02/21/24 10:27 12:35 WBC 17.3 H 14.1 H Hgb 9.1 L 8.5 L Plt Count 282 263 Assessment and Plan (1) Acute coronary syndrome: Status: Acute (2) Metabolic acidosis: Status: Acute (3) Anemia due to chronic kidney disease: Qualifiers: Chronic kidney disease stage: stage 5, not on chronic dialysis Q ualified Code(s): N18.5 - Chronic kidney disease, stage 5; D63.1 - Anemia in chronic kidney disease Status: Acute (4) CKD (chronic kidney disease) stage 5, GFR less than 15 ml/min: Status: Acute Plan Jorge a CKD 5 due to underlying diabetic nephropathy. Renal function is close to baseline No signs or symptoms of uremia. He has coronary disease with coronary ischemia and pulmonary edema. Metabolic acidos is Hyperkalemia. Recommendations IV Lasix Keep output more than intake. Lokelma to correct hyperkalemia. Add oral sodium bicarbonate to correct acidosis. At the present time there is no absolute indication for dialysis. However he is at high risk for requiring renal replacement therapy in the next 24-48 hours. He is also to high risk for contrast induced nephropathy however the benefits outweigh the risks if we needs coronary angiogram, we should proceed with the same accepting the risks We will follow along with the team. Procedures Date of Service Date of Service: 02/21/24
--- NOTE | 2024-02-21 14:47 | PM.EVENT ---
Event Note Date of Service: 02/21/24 Event Note: Reviewed the echocardiogram shows severely reduced LV ejection fraction with wall motion abnormality consistent with most likely ischemic cardiomyopathy. Has not diuresed much. Continues to be on BiPAP. No ICU bed available. Discussed with Dr. Hood to transferred to [facility]. Patient has been accepted by CCU team at [facility]. Continue Lasix drip. Continue nitrates. Continue IV heparin. Patient will most likely require cardiac catheterization. Overall prognosis remains guarded. Time Spent With Patient Time: Total time managing care of this patient today ____ minutes.
[2024-02-21] MEDS: Atorvastatin Calcium 80 MG TABLET PO (15:39)
--- NOTE | 2024-02-21 16:15 | PC.NURSE ---
patient has [place] cath in place, total output 300 ml or urine
--- NOTE | 2024-02-21 16:18 | PC.NURSE ---
patient placed back on bipap setting 18/10 at 50%
--- NOTE | 2024-02-21 18:46 | PC.NURSE ---
patient tx to [facility] with amr
== END 2024-02-21 18:46 | disposition short-term general hospital (02) ==
PROVIDERS: Emergency Provider Emergency Medicine; PCP Internal Medicine
DX: E11.22 Type 2 diabetes mellitus with diabetic chronic kidney disease (principal); I13.2 Hypertensive heart and chronic kidney disease with heart failure and with stage 5 chronic kidney disease, or end stage renal disease; N18.5 Chronic kidney disease, stage 5; I50.9 Heart failure, unspecified; D63.1 Anemia in chronic kidney disease; J96.91 Respiratory failure, unspecified with hypoxia; R00.0 Tachycardia, unspecified; R06.02 Shortness of breath; R60.0 Localized edema; C61 Malignant neoplasm of prostate; Z79.4 Long term (current) use of insulin; Z79.899 Other long term (current) drug therapy; Z79.02 Long term (current) use of antithrombotics/antiplatelets; Z03.818 Encounter for observation for suspected exposure to other biological agents ruled out
CPT/HCPCS: 0241U; 36415; 71045; 80048; 80076; 82803; 83735; 83880; 84145; 84484; 85025; 85027; 85610; 85730; 86140; 93005; 93306; 96374; 96375; 99285; J1644; J1940; Q9957

== ENCOUNTER → 2024-02-21 11:34 | Outpatient (BNV) | payer OTHER, SELFPAY | PROVIDERS: Emergency Provider Emergency Medicine; PCP Internal Medicine; Visit Provider Internal Medicine Hypertension Specialist | DX: N18.5 Chronic kidney disease, stage 5 (principal); I24.9 Acute ischemic heart disease, unspecified; E87.20 Acidosis, unspecified; D63.1 Anemia in chronic kidney disease | CPT/HCPCS: 99222 ==

== ENCOUNTER → 2024-02-21 11:34 | Outpatient (BNV) | payer OTHER, SELFPAY | PROVIDERS: Emergency Provider Emergency Medicine; PCP Internal Medicine; Visit Provider Internal Medicine Cardiovascular Disease | DX: J81.0 Acute pulmonary edema (principal) | CPT/HCPCS: 93010; 93306; 99223; 99499 ==

== ENCOUNTER 2024-03-13 11:50 | Outpatient (REF) | payer OTHER, SELFPAY ==
[2024-03-13 13:14] LABS: MANUAL DIFF FLAG NO
[2024-03-13 13:39] LABS: Basophils Absolute Auto 0.1 X10*3/uL (0.0-0.2); Basophils Percent Auto 0.8 % (0-2); Eosinophils Absolute Auto 0.7 X10*3/uL (0.0-0.4); Eosinophils Percent Auto 8.3 % (0-4); Hemoglobin 8.4 g/dl (14.0-18.0); Imm Gran Abs Auto 0.04 X10*3/uL (0.00-0.03); Imm Gran Pct Auto 0.5 % (0.0-0.4); Lymphocytes Absolute Auto 1.4 X10*3/uL (1.2-4.9); Lymphocytes Percent Auto 16.8 % (20-40); Mean Corpuscular HGB Conc 32.3 g/dl (31.0-36.0); Mean Corpuscular Hemoglobin 30.4 pg (27.0-33.0); Mean Corpuscular Volume 94.2 fL (80.0-98.0); Mean Platelet Volume 10.5 fL (9.4-12.4); Monocytes Absolute Auto 0.6 X10*3/uL (0.1-1.2); Monocytes Percent Auto 6.5 % (2-11); Neutrophils Absolute Auto 5.7 x10*3/uL (2.0-8.3); Neutrophils Percent Auto 67.1 % (45-73); Platelet Count 287 X10*3/uL (160-400); Red Blood Count 2.76 X10*6/uL (4.60-5.80); Red Cell Distribution Width 14.2 % (11.0-16.0); White Blood Count 8.4 X10*3/uL (4.8-10.8)
[2024-03-13 14:03] LABS: Alanine Aminotransferase 13 U/L (0-40); Albumin Level 3.5 g/dL (3.5-5.0); Alkaline Phosphatase 64 U/L (39-117); Anion Gap 16 (12-20); Aspartate Amino Transferase 11 U/L (5-37); Bilirubin Total 0.3 mg/dL (0.0-1.0); Blood Urea Nitrogen 59 mg/dL (9-16); Calcium 9.8 mg/dL (8.4-10.2); Carbon Dioxide 16 mmol/L (22-29); Chloride 114 mmol/L (96-108); Glucose Random 272 mg/dL (60-115); Iron 29 mcg/dL (45-160); Percent Iron Saturation 17 % (15-50); Potassium 5.8 mmol/L (3.3-5.1); Sodium 140 mmol/L (135-145); Total Iron Binding Capacity 175 mcg/dL (228-428); Total Protein 7.1 g/dL (6.5-8.0); Unsaturated Iron Binding 146 ug/dL
[2024-03-13 14:39] LABS: Estimated Glomerular Filt Rate 10
== END 2024-03-13 11:51 | disposition home or self-care (01) ==
LOC: HO.10HDL 11:50
PROVIDERS: Visit Provider Internal Medicine Hypertension Specialist
DX: N18.30 Chronic kidney disease, stage 3 unspecified (principal); N18.5 Chronic kidney disease, stage 5; N18.9 Chronic kidney disease, unspecified
CPT/HCPCS: 36415; 80053; 83540; 85025

== ENCOUNTER 2024-03-15 11:09 | Outpatient (AMB) | payer OTHER, SELFPAY ==
[2024-03-15 11:11] VITALS: BP 142/58; PULSE 72; O2SAT 97; BMI 22.6
--- NOTE | 2024-03-15 11:11 | HO.NEPHOV ---
Vital Signs 03/15/24 11:11 03/15/24 11:25 Height 5 ft 7 in Weight 144 lb BMI 22.6 BP 142/58 H 134/60 Blood Pressure Location Lt brachial Lt brachial Position Sitting Sitting Pulse 72 Pulse Source Pulse Oximeter Pulse Oximetry (%) 97 Oxygen Delivery Method Room Air Intake Visit [place] [facility] [place] Inspecting Machine Adjuster Required: No Accompanied by: Self / Same As Patient Allergies No Known Allergies [No Known Allergies*] Allergy (Verified 03/15/24 11:14) Medication List - Last Reconciled 03/15/24 by Nikolai Barros MD allopurinol 100 mg PO DAILY aspirin 81 mg PO DAILY atorvastatin 80 mg PO DAILY betamethasone dipropionate 0.05% 1 appl topical BID PRN blood sugar diagnostic (FreeStyle Test strips) As directed twice a day blood-glucose meter As directed calcium citrate-vitamin D3 315 mg-5 mcg (200 unit) (Calcium Citrate + D) 2 tabs PO DAILY carvedilol 6.25 mg PO BID clopidogrel 75 mg PO DAILY diclofenac sodium 1% (Arthritis Pain (diclofenac)) 4 grams topical QID ferrous fumarate (Ferretts) 325 mg PO BID insulin glargine (Lantus Solostar U-100 Insulin) 15 units (0.15 mL) subcut QPM 90 days lancets As directed levothyroxine (Synthroid) 25 mcg PO DAILY mupirocin 2% 1 appl topical BID pen needle, diabetic As directed 1x daily sitagliptin phosphate (Januvia) 100 mg PO DAILY sodium bicarbonate 650 mg PO DAILY sodium zirconium cyclosilicate (Lokelma) 5 grams PO .3 x week spironolactone 25 mg PO DAILY terazosin 5 mg PO BEDTIME 90 days HPI Comments Details: Elderly man with a history of longstanding diabetes mellitus hypertension with CKD. 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 Serum creatinine is between 4 and 5.0 mg/dL. Recently was hospitalized at [facility] of for acute pulmonary edema and acute [place]. He was conservatively managed. History of for further follow-up regarding CKD. He has been receiving Epogen injections for the anemia. [facility] Medical History Other and unspecified hyperlipidemia Essential hypertension Edema of both feet Prostate cancer Gout Hyperlipidemia Diabetes Surgical History History of hernia surgery Family History Mother No problems noted. Father No problems noted. Social History Housing: House Alcohol intake: never Patient Tobacco Use Status: Never used Tobacco e-Cigarette/Vaping Use: Never Used Second Hand Smoke Exposure: No service: No Current occupational status: retired Current occupation: rt handed Cognitive needs: No Hearing needs: No Vision needs: No Physical Exam Vital Signs: Last Vital Signs Pulse 72 03/15/24 11:11 BP 134/60 03/15/24 11:25 Pulse Ox 97 03/15/24 11:11 Oxygen Delivery Method Room Air 03/15/24 11:11 BMI result Body Mass Index 22.6 Last Vital Signs Temp 98.0 F 02/21/24 14:29 Pulse 74 02/21/24 14:29 Resp 25 H 02/21/24 14:29 BP 130/64 02/21/24 14:29 Pulse Ox 93 02/21/24 14:29 O2 Del Method Nasal Cannula 02/21/24 14:29 O2 Flow Rate 6 02/21/24 14:29 FiO2 50 02/21/24 11:28 BMI result Body Mass Index 27.1 Awake. Comfortable. Neck is supple. Mucosa moist. Lungs bilateral scattered rhonchi. Heart S1-S2 heard no gallop. Abdomen soft. Extremities no edema. No involuntary movements. No myoclonus. Results Reviewed Nephrology Results: Hgb 8.4 g/dl (14.0-18.0) L 03/13/24 WBC 8.4 X10*3/uL (4.8-10.8) 03/13/24 Plt Count 287 X10*3/uL (160-400) 03/13/24 Sodium 140 mmol/L (135-145) 03/13/24 Potassium 5.8 mmol/L (3.3-5.1) H 03/13/24 Chloride 114 mmol/L (96-108) H 03/13/24 Carbon Dioxide 16 mmol/L (22-29) L 03/13/24 BUN 59 mg/dL (9-16) H 03/13/24 Creatinine 5.36 mg/dL (0.5-1.4) H* 03/13/24 Calcium 9.8 mg/dL (8.4-10.2) 03/13/24 PTH Intact 84.2 pg/mL (8.7-77.1) H 01/16/24 Assessment & Plan Assessment & Plan (1) CKD (chronic kidney disease) stage 5, GFR less than 15 ml/min: Code(s): N18.5 - Chronic kidney disease, stage 5 Category: Medical Plan: CKD 5. No signs or symptoms of uremia. He is approaching end stage renal disease. No indication for dialysis yet I will refer him for CCPD (2) Anemia due to chronic kidney disease: Code(s): N18.9 - Chronic kidney disease, unspecified; D63.1 - Anemia in chronic kidney disease Category: Medical Qualifiers: Chronic kidney disease stage: stage 5, not on chronic dialysis Qualified Code(s): N18.5 - Chronic kidney disease, stage 5; D63.1 - Anemia in chronic kidney disease Plan: Anemia due to CKD. Hemoglobin is low. He is due to receive Epogen however insurance has denied. His iron levels were low. I will arrange for Venofer 200 mg IV once a week x2 and then reapply for approval. (3) Essential hypertension: Code(s): I10 - Essential (primary) hypertension Category: Medical Plan: Hypertension blood pressure is acceptable Stay on low-sodium diet (4) Metabolic acidosis: Code(s): E87.20 - Acidosis, unspecified Category: Medical Plan: Sodium bicarbonate 650 mg p.o. Increase to twice a day (5) Type 2 diabetes mellitus with unspecified complications: Code(s): E11.8 - Type 2 diabetes mellitus with unspecified complications Category: Medical Plan: Goal is to maintain A1c less than 7%. Unable to add SGLT2 inhibitors like Jardiance due to hyperkalemia. (6) Hyperkalemia: Code(s): E87.5 - Hyperkalemia Category: Medical Plan: Primarily due to the use of spironolactone in setting of advanced kidney disease. I will add Lokelma 5 g p.o. 3 times a week Encouraged him to stay on low-potassium diet. The potassium stays persistently elevated we might have to discontinue spironolactone. Plan Of note blood sugar seems suboptimal recent blood sugar was 460 with a A1c of 11.5% I have discussed importance of tight control blood sugar to slow the progression of renal disease. Orders: Orders Basic Metabolic Panel 2 Weeks Nikolai Barros MD D63.1 - Anemia in chronic kidney disease, N18.5 - Chronic kidney disease, stage 5 Complete Blood Count no Diff 2 Weeks Nikolai Barros MD D63.1 - Anemia in chronic kidney disease, N18.5 - Chronic kidney disease, stage 5 Referrals Infusion Center Notification Nikolai Barros MD D63.1 - Anemia in chronic kidney disease, N18.5 - Chronic kidney disease, stage 5 Medications: New sodium zirconium cyclosilicate (Lokelma) 5 grams PO .3 x week 11 ea 2RF Nikolai Barros MD Changed From sodium bicarbonate 650 mg PO DAILY 30 tabs 3RF To sodium bicarbonate 650 mg PO BID 60 tabs 3RF Nikolai Barros MD From calcium citrate-vitamin D3 315 mg-5 mcg (200 unit) (Calcium Citrate + D) 2 tabs PO DAILY 90 days 180 tabs 1RF M85.80 - Other specified disorders of bone density and structure, unspecified site To calcium citrate-vitamin D3 315 mg-5 mcg (200 unit) (Calcium Citrate + D) Every Tuesday & Tuesday 2 tabs PO DAILY M85.80 - Other specified disorders of bone density and structure, unspecified site Fuad Card MD Coding Level of Care Code Est Pt Level 5 (93753) Diagnoses CKD (chronic kidney disease) stage 5, GFR less than 15 ml/min N18.5 Anemia due to stage 5 chronic kidney disease, not on chronic dialysis N18.5; D63.1 Chronic kidney disease stage: stage 5, not on chronic dialysis Essential hypertension I10 Metabolic acidosis E87.20 Type 2 diabetes mellitus with unspecified complications E11.8 Hyperkalemia E87.5
[2024-03-15 11:25] VITALS: BP 134/60
== END 2024-03-15 11:42 | disposition home or self-care (01) ==
PROVIDERS: PCP Internal Medicine; Visit Provider Internal Medicine Hypertension Specialist
DX: I12.0 Hypertensive chronic kidney disease with stage 5 chronic kidney disease or end stage renal disease (principal); E11.22 Type 2 diabetes mellitus with diabetic chronic kidney disease; N18.5 Chronic kidney disease, stage 5; D63.1 Anemia in chronic kidney disease; E87.21 Acute metabolic acidosis; E87.5 Hyperkalemia
CPT/HCPCS: 99214

== ENCOUNTER → 2024-03-15 11:09 | Outpatient (BNVA) | payer OTHER, SELFPAY | PROVIDERS: PCP Internal Medicine; Visit Provider Internal Medicine Hypertension Specialist ==

== ENCOUNTER 2024-04-02 11:05 | Outpatient (REF) | payer OTHER, SELFPAY ==
[2024-04-02 13:29] LABS: Hematocrit 25.7 % (42.0-52.0); Hemoglobin 8.4 g/dl (14.0-18.0); Mean Corpuscular HGB Conc 32.7 g/dl (31.0-36.0); Mean Corpuscular Hemoglobin 30.4 pg (27.0-33.0); Mean Corpuscular Volume 93.1 fL (80.0-98.0); Mean Platelet Volume 10.8 fL (9.4-12.4); Platelet Count 215 X10*3/uL (160-400); Red Blood Count 2.76 X10*6/uL (4.60-5.80); Red Cell Distribution Width 14.6 % (11.0-16.0); White Blood Count 8.4 X10*3/uL (4.8-10.8)
[2024-04-02 14:28] LABS: Anion Gap 15 (12-20); Blood Urea Nitrogen 67 mg/dL (9-16); Calcium 9.9 mg/dL (8.4-10.2); Carbon Dioxide 21 mmol/L (22-29); Chloride 108 mmol/L (96-108); Estimated Glomerular Filt Rate 9; Glucose Random 306 mg/dL (60-115); Potassium 5.2 mmol/L (3.3-5.1); Sodium 139 mmol/L (135-145)
== END 2024-04-02 11:06 | disposition home or self-care (01) ==
LOC: HO.10HDL 11:05
PROVIDERS: Visit Provider Internal Medicine Hypertension Specialist
DX: N18.5 Chronic kidney disease, stage 5 (principal); D63.1 Anemia in chronic kidney disease
CPT/HCPCS: 36415; 80048; 85027

== ENCOUNTER 2024-04-05 10:53 | Outpatient (AMB) | payer OTHER, SELFPAY ==
[2024-04-05 10:55] VITALS: BP 144/58; PULSE 78; O2SAT 98; BMI 22.4
--- NOTE | 2024-04-05 10:55 | HO.NEPHOV_ITS ---
Vital Signs 04/05/24 10:55 Height 5 ft 7 in Weight 143 lb BMI 22.4 BP 144/58 H Blood Pressure Location Lt brachial Position Sitting Pulse 78 Pulse Source Pulse Oximeter Pulse Oximetry (%) 98 Oxygen Delivery Method Room Air Intake Visit Reasons: Anemia due to ckd/ 3 weeks fu/LVM Global Chief Experience Officer Required: No Accompanied by: Self / Same As Patient Allergies No Known Allergies [No Known Allergies*] Allergy (Verified 04/05/24 10:57) Medication List - Last Reconciled 04/05/24 by Nikolai Barros MD allopurinol 100 mg PO DAILY aspirin 81 mg PO DAILY atorvastatin 80 mg PO DAILY betamethasone dipropionate 0.05% 1 appl topical BID PRN blood sugar diagnostic (FreeStyle Test strips) As directed twice a day blood-glucose meter As directed calcium citrate-vitamin D3 315 mg-5 mcg (200 unit) (Calcium Citrate + D) 2 tabs PO DAILY carvedilol 6.25 mg PO BID clopidogrel 75 mg PO DAILY diclofenac sodium 1% (Arthritis Pain (diclofenac)) 4 grams topical QID ferrous fumarate (Ferretts) 325 mg PO BID insulin glargine (Lantus Solostar U-100 Insulin) 15 units (0.15 mL) subcut QPM 90 days lancets As directed levothyroxine (Synthroid) 25 mcg PO DAILY mupirocin 2% 1 appl topical BID pen needle, diabetic As directed 1x daily sitagliptin phosphate (Januvia) 100 mg PO DAILY sodium bicarbonate 650 mg PO BID sodium polystyrene sulfonate 15 grams PO .3x week spironolactone 25 mg PO DAILY terazosin 5 mg PO BEDTIME 90 days HPI Comments Details: Elderly man with a history of longstanding diabetes mellitus hypertension with CKD. 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 Serum creatinine is between 4 and 5.0 mg/dL. Recently was hospitalized at [facility] for acute pulmonary edema and acute NH. He was conservatively managed. History of for further follow-up regarding CKD. He has been receiving Epogen injections for the anemia. 04/05/2024. Overall he is feeling better. No specific complaints today. Lokelma has been denied by his insurance. [facility] Medical History Other and unspecified hyperlipidemia Essential hypertension Edema of both feet Prostate cancer Gout Hyperlipidemia Diabetes Surgical History History of hernia surgery Family History Mother No problems noted. Father No problems noted. Social History Housing: House Alcohol intake: never Patient Tobacco Use Status: Never used Tobacco e-Cigarette/Vaping Use: Never Used Second Hand Smoke Exposure: No service: No Current occupational status: retired Current occupation: rt handed Cognitive needs: No Hearing needs: No Vision needs: No Physical Exam Vital Signs: Last Vital Signs Pulse 78 04/05/24 10:55 BP 144/58 H 04/05/24 10:55 Pulse Ox 98 04/05/24 10:55 Oxygen Delivery Method Room Air 04/05/24 10:55 BMI result Body Mass Index 22.4 Const General: comfortable; No acute distress Orientation/consciousness: patient oriented x3 Eyes General: appearance normal, both eyes and all related structures Visual Carias: normal visual carias by confrontation Neck Neck: Yes supple and Yes no JVD Resp Effort & Inspection: normal respiratory effort and respiratory effort not decreased Auscultation: rhonchi Cardio Palpation: no palpable S3 and no palpable S4 Heart sounds: no rubs GI Inspection: Yes normal to inspection Palpation (GI): Soft to palpation Percussion: Yes normal to percussion Auscultation: normal bowel sounds General: Yes no CVA tenderness Back/Spine/Pelvis Back: no CVA tenderness Skin General skin exam: no petechiae and no purpura Neuro General: patient oriented x3 and no focal motor deficits Extrem General: No clubbing and No edema Office Meds epoetin [id number] 20,000 unit/mL injection solution Performing Provider: Nikolai Barros MD [facility] Administered by: Nikolai Barros MD on 04/05/24 11:11 Dose Route Admin Location Dispensed Lot Number Expiration Date [facility] [place] Synthetic Cloth Binding Cutter 20,000 unit subcut LEft arm 1 mL [id number] 09/09/25 [employer]fizer Results Reviewed Nephrology Results: Hgb 8.4 g/dl (14.0-18.0) L 04/02/24 WBC 8.4 X10*3/uL (4.8-10.8) 04/02/24 Plt Count 215 X10*3/uL (160-400) 04/02/24 Sodium 139 mmol/L (135-145) 04/02/24 Potassium 5.2 mmol/L (3.3-5.1) H 04/02/24 Chloride 108 mmol/L (96-108) 04/02/24 Carbon Dioxide 21 mmol/L (22-29) L 04/02/24 BUN 67 mg/dL (9-16) H 04/02/24 Creatinine 6.04 mg/dL (0.5-1.4) H* 04/02/24 Calcium 9.9 mg/dL (8.4-10.2) 04/02/24 PTH Intact 84.2 pg/mL (8.7-77.1) H 01/16/24 Assessment & Plan Assessment & Plan (1) CKD (chronic kidney disease) stage 5, GFR less than 15 ml/min: Code(s): N18.5 - Chronic kidney disease, stage 5 Category: Medical Plan: CKD 5. No signs or symptoms of uremia. He is approaching end stage renal disease. No indication for dialysis yet I referred him for CCPD (2) Anemia due to chronic kidney disease: Code(s): N18.9 - Chronic kidney disease, unspecified; D63.1 - Anemia in chronic kidney disease Category: Medical Qualifiers: Chronic kidney disease stage: stage 5, not on chronic dialysis Qualified Code(s): N18.5 - Chronic kidney disease, stage 5; D63.1 - Anemia in chronic kidney disease Plan: Anemia due to CKD. Hemoglobin is low. His iron levels were low. Waiting for Venofer 200 mg IV once a week x2 Administer Retacrit 22586 units subcutaneously tolerated (3) Essential hypertension: Code(s): I10 - Essential (primary) hypertension Category: Medical Plan: Hypertension blood pressure is acceptable Stay on low-sodium diet (4) Metabolic acidosis: Code(s): E87.20 - Acidosis, unspecified Category: Medical Plan: Sodium bicarbonate 650 mg p.o. twice a day (5) Type 2 diabetes mellitus with unspecified complications: Code(s): E11.8 - Type 2 diabetes mellitus with unspecified complications Category: Medical Plan: Goal is to maintain A1c less than 7%. Unable to add SGLT2 inhibitors like Jardiance due to hyperkalemia. (6) Hyperkalemia: Code(s): E87.5 - Hyperkalemia Category: Medical Plan: Primarily due to the use of spironolactone in setting of advanced kidney disease. Yuliya was denied I prescribed Kayexalate. Encouraged him to stay on low-potassium diet. The potassium stays persistently elevated we might have to discontinue spironolactone. Plan Of note blood sugar seems suboptimal recent blood sugar was 460 with a A1c of 11.5% I have discussed importance of tight control blood sugar to slow the progression of renal disease. Orders: Orders Basic Metabolic Panel 3 Weeks D63.1 - Anemia in chronic kidney disease, N18.5 - Chronic kidney disease, stage 5 Complete Blood Count Auto Diff Today N18.5 - Chronic kidney disease, stage 5 AMB Epoetin Injection Practice Supplied Today D63.1 - Anemia in chronic kidney disease, N18.5 - Chronic kidney disease, stage 5 Parathyroid Hormone Intact 3 Weeks D63.1 - Anemia in chronic kidney disease, N18.5 - Chronic kidney disease, stage 5 Complete Blood Count Auto Diff 3 Weeks D63.1 - Anemia in chronic kidney disease, N18.5 - Chronic kidney disease, stage 5 Ferritin Today N18.5 - Chronic kidney disease, stage 5 IRON PROFILE Today N18.5 - Chronic kidney disease, stage 5 Coding Level of Care Code Est Pt Level 5 (09970) Diagnoses CKD (chronic kidney disease) stage 5, GFR less than 15 ml/min N18.5 Anemia due to stage 5 chronic kidney disease, not on chronic dialysis N18.5; D63.1 Chronic kidney disease stage: stage 5, not on chronic dialysis Essential hypertension I10 Metabolic acidosis E87.20 Type 2 diabetes mellitus with unspecified complications E11.8 Hyperkalemia E87.5
== END 2024-04-05 11:19 | disposition home or self-care (01) ==
LOC: HO.HKA 10:53
PROVIDERS: PCP Internal Medicine; Visit Provider Internal Medicine Hypertension Specialist
DX: N18.5 Chronic kidney disease, stage 5 (principal); I12.0 Hypertensive chronic kidney disease with stage 5 chronic kidney disease or end stage renal disease; E87.20 Acidosis, unspecified; E11.8 Type 2 diabetes mellitus with unspecified complications; D63.1 Anemia in chronic kidney disease; E87.5 Hyperkalemia
CPT/HCPCS: 99214

== ENCOUNTER → 2024-04-05 10:53 | Outpatient (BNVA) | payer OTHER, MEDICARE, SELFPAY | PROVIDERS: PCP Internal Medicine; Visit Provider Internal Medicine Hypertension Specialist | DX: I12.0 Hypertensive chronic kidney disease with stage 5 chronic kidney disease or end stage renal disease (principal); E11.22 Type 2 diabetes mellitus with diabetic chronic kidney disease; N18.5 Chronic kidney disease, stage 5; D63.1 Anemia in chronic kidney disease; E87.20 Acidosis, unspecified; E87.5 Hyperkalemia | CPT/HCPCS: 96372; Q5106 ==

== ENCOUNTER 2024-04-19 11:41 | Outpatient (REF) | payer OTHER, SELFPAY ==
[2024-04-19 13:05] LABS: MANUAL DIFF FLAG NO
[2024-04-19 13:23] LABS: Basophils Absolute Auto 0.1 X10*3/uL (0.0-0.2); Basophils Percent Auto 0.7 % (0-2); Eosinophils Absolute Auto 0.4 X10*3/uL (0.0-0.4); Eosinophils Percent Auto 5.5 % (0-4); Hematocrit 29.2 % (42.0-52.0); Hemoglobin 9.5 g/dl (14.0-18.0); Imm Gran Abs Auto 0.02 X10*3/uL (0.00-0.03); Imm Gran Pct Auto 0.3 % (0.0-0.4); Lymphocytes Absolute Auto 1.3 X10*3/uL (1.2-4.9); Lymphocytes Percent Auto 19.2 % (20-40); Mean Corpuscular HGB Conc 32.5 g/dl (31.0-36.0); Mean Corpuscular Hemoglobin 30.4 pg (27.0-33.0); Mean Corpuscular Volume 93.6 fL (80.0-98.0); Mean Platelet Volume 10.6 fL (9.4-12.4); Monocytes Absolute Auto 0.6 X10*3/uL (0.1-1.2); Monocytes Percent Auto 9.5 % (2-11); Neutrophils Absolute Auto 4.4 x10*3/uL (2.0-8.3); Neutrophils Percent Auto 64.8 % (45-73); Platelet Count 238 X10*3/uL (160-400); Red Blood Count 3.12 X10*6/uL (4.60-5.80); Red Cell Distribution Width 16.1 % (11.0-16.0); White Blood Count 6.8 X10*3/uL (4.8-10.8)
[2024-04-19 13:55] LABS: Anion Gap 13 (12-20); Blood Urea Nitrogen 62 mg/dL (9-16); Calcium 10.8 mg/dL (8.4-10.2); Carbon Dioxide 22 mmol/L (22-29); Chloride 110 mmol/L (96-108); Glucose Random 231 mg/dL (60-115); Iron 34 mcg/dL (45-160); Percent Iron Saturation 19 % (15-50); Potassium 4.2 mmol/L (3.3-5.1); Sodium 141 mmol/L (135-145); Total Iron Binding Capacity 176 mcg/dL (228-428); Unsaturated Iron Binding 142 ug/dL
[2024-04-19 13:59] LABS: Ferritin 252 ng/mL (20-250)
[2024-04-19 14:27] LABS: Estimated Glomerular Filt Rate 8
[2024-04-19 14:34] LABS: Parathyroid Hormone Intact 14.8 pg/mL (8.7-77.1)
== END 2024-04-19 11:42 | disposition home or self-care (01) ==
LOC: HO.10HDL 11:41
PROVIDERS: Visit Provider Internal Medicine Hypertension Specialist
DX: N18.5 Chronic kidney disease, stage 5 (principal); D63.1 Anemia in chronic kidney disease
CPT/HCPCS: 36415; 80048; 82728; 83540; 83970; 85025

== ENCOUNTER 2024-04-30 11:41 | Outpatient (REF) | payer OTHER, SELFPAY ==
[2024-04-30 13:05] LABS: MANUAL DIFF FLAG NO
[2024-04-30 13:20] LABS: Basophils Absolute Auto 0.1 X10*3/uL (0.0-0.2); Basophils Percent Auto 0.5 % (0-2); Eosinophils Absolute Auto 0.4 X10*3/uL (0.0-0.4); Eosinophils Percent Auto 4.3 % (0-4); Hematocrit 28.3 % (42.0-52.0); Hemoglobin 9.1 g/dl (14.0-18.0); Imm Gran Abs Auto 0.03 X10*3/uL (0.00-0.03); Imm Gran Pct Auto 0.3 % (0.0-0.4); Lymphocytes Absolute Auto 1.6 X10*3/uL (1.2-4.9); Lymphocytes Percent Auto 16.7 % (20-40); Mean Corpuscular HGB Conc 32.2 g/dl (31.0-36.0); Mean Corpuscular Hemoglobin 30.4 pg (27.0-33.0); Mean Corpuscular Volume 94.6 fL (80.0-98.0); Mean Platelet Volume 10.2 fL (9.4-12.4); Monocytes Absolute Auto 0.8 X10*3/uL (0.1-1.2); Monocytes Percent Auto 8.9 % (2-11); Neutrophils Absolute Auto 6.5 x10*3/uL (2.0-8.3); Neutrophils Percent Auto 69.3 % (45-73); Platelet Count 289 X10*3/uL (160-400); Red Blood Count 2.99 X10*6/uL (4.60-5.80); Red Cell Distribution Width 15.8 % (11.0-16.0); White Blood Count 9.4 X10*3/uL (4.8-10.8)
== END 2024-04-30 11:42 | disposition home or self-care (01) ==
LOC: HO.10HDL 11:41
PROVIDERS: Visit Provider Internal Medicine Hypertension Specialist
DX: N18.5 Chronic kidney disease, stage 5 (principal)
CPT/HCPCS: 36415; 85025

== ENCOUNTER 2024-05-03 10:59 | Outpatient (AMB) | payer OTHER, SELFPAY ==
[2024-05-03 11:04] VITALS: BP 146/50; PULSE 74; O2SAT 98; BMI 22.1
--- NOTE | 2024-05-03 11:04 | HO.NEPHOV_ITS ---
Vital Signs 05/03/24 11:04 Height 5 ft 7 in Weight 141 lb BMI 22.1 BP 146/50 H Blood Pressure Location Rt brachial Position Sitting Pulse 74 Pulse Source Pulse Oximeter Pulse Oximetry (%) 98 Oxygen Delivery Method Room Air Intake Visit Reasons: Anemia due to ckd/ LVM Speech Language Pathologist Required: No Accompanied by: Self / Same As Patient Allergies No Known Allergies [No Known Allergies*] Allergy (Verified 05/03/24 14:12) HPI Comments Details: Elderly man with a history of longstanding diabetes mellitus hypertension with CKD. 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 Serum creatinine is between 4 and 5.0 mg/dL. Recently was hospitalized at [facility] for acute pulmonary edema and acute [place]. He was conservatively managed. History of for further follow-up regarding CKD. He has been receiving Epogen injections for the anemia. 04/05/2024. Overall he is feeling better. No specific complaints today. Lokelma has been denied by his insurance. 05/03/2024 No shortness of breath. No nausea or vomiting. He took Kayexalate and had upset stomach therefore he stopped taking it. [facility] Medical History (Updated 05/03/24 @ 14:14 by Diaz Akers MD) CKD (chronic kidney disease) stage 5, GFR less than 15 ml/min Other and unspecified hyperlipidemia Essential hypertension Edema of both feet Prostate cancer Gout Hyperlipidemia Diabetes Surgical History History of hernia surgery Family History Mother No problems noted. Father No problems noted. Social History Housing: House Alcohol intake: never Patient Tobacco Use Status: Never used Tobacco e-Cigarette/Vaping Use: Never Used Second Hand Smoke Exposure: No service: No Current occupational status: retired Current occupation: rt handed Cognitive needs: No Hearing needs: No Vision needs: Yes (Glasses) Physical Exam Vital Signs: Last Vital Signs Pulse 74 05/03/24 11:04 BP 146/50 H 05/03/24 11:04 Pulse Ox 98 05/03/24 11:04 Oxygen Delivery Method Room Air 05/03/24 11:04 BMI result Body Mass Index 22.1 Const General: comfortable; No acute distress Orientation/consciousness: patient oriented x3 Eyes General: appearance normal, both eyes and all related structures Visual Carias: normal visual carias by confrontation Neck Neck: Yes supple and Yes no JVD Resp Effort & Inspection: normal respiratory effort and respiratory effort not decreased Auscultation: rhonchi Cardio Palpation: no palpable S3 and no palpable S4 Heart sounds: no rubs GI Inspection: Yes normal to inspection Palpation (GI): Soft to palpation Percussion: Yes normal to percussion Auscultation: normal bowel sounds General: Yes no CVA tenderness Back/Spine/Pelvis Back: no CVA tenderness Skin General skin exam: no petechiae and no purpura Neuro General: patient oriented x3 and no focal motor deficits Extrem General: No clubbing and No edema Results AMB Hemoglobin A1c AMB Hemoglobin A1c 7.6 % Last Edit by ARTIE Alford on 05/03/24 13:53 Results Reviewed Nephrology Results: Hgb 9.3 g/dl (14.0-18.0) L 06/04/24 WBC 8.9 X10*3/uL (4.8-10.8) 06/04/24 Plt Count 275 X10*3/uL (160-400) 06/04/24 Sodium 140 mmol/L (135-145) 06/04/24 Potassium 5.3 mmol/L (3.3-5.1) H 06/04/24 Chloride 114 mmol/L (96-108) H 06/04/24 Carbon Dioxide 18 mmol/L (22-29) L 06/04/24 BUN 55 mg/dL (9-16) H 06/04/24 Creatinine 5.33 mg/dL (0.5-1.4) H* 06/04/24 Calcium 9.3 mg/dL (8.4-10.2) 06/04/24 PTH Intact 164.8 pg/mL (8.7-77.1) H 06/04/24 Assessment & Plan Assessment & Plan (1) CKD (chronic kidney disease) stage 5, GFR less than 15 ml/min: Code(s): N18.5 - Chronic kidney disease, stage 5 Category: Medical Plan: CKD 5. No signs or symptoms of uremia. He is approaching end stage renal disease. No indication for dialysis YET I referred him for CCPD Encouraged him to keep the appointment with dialysis educated Referred to Dr. Chester for insertion of Tenckhoff catheter (2) Anemia due to chronic kidney disease: Code(s): N18.9 - Chronic kidney disease, unspecified; D63.1 - Anemia in chronic kidney disease Category: Medical Qualifiers: Chronic kidney disease stage: stage 5, not on chronic dialysis Qualified Code(s): N18.5 - Chronic kidney disease, stage 5; D63.1 - Anemia in chronic kidney disease Plan: Anemia due to CKD. Hemoglobin is low. His iron levels were low. Administer Retacrit 68050 units subcutaneously tolerated (3) Essential hypertension: Code(s): I10 - Essential (primary) hypertension Category: Medical Plan: Hypertension blood pressure is acceptable Stay on low-sodium diet (4) Metabolic acidosis: Code(s): E87.20 - Acidosis, unspecified Category: Medical Plan: Sodium bicarbonate 650 mg p.o. twice a day (5) Type 2 diabetes mellitus with unspecified complications: Code(s): E11.8 - Type 2 diabetes mellitus with unspecified complications Category: Medical Plan: Goal is to maintain A1c less than 7%. Unable to add SGLT2 inhibitors like Jardiance due to hyperkalemia. (6) Hyperkalemia: Code(s): E87.5 - Hyperkalemia Category: Medical Plan: Primarily due to the use of spironolactone in setting of advanced kidney disease. Lokelma was denied I prescribed Kayexalate. Encouraged him to stay on low-potassium diet. The potassium stays persistently elevated we might have to discontinue spironolactone. Restart Kayexalate twice a week (7) Hyperparathyroidism: Code(s): E21.3 - Hyperparathyroidism, unspecified Category: Medical Plan: Ca is high Decrease Calcitriol to Once a week DC Calcium tabs Plan Of note blood sugar seems suboptimal recent blood sugar was 460 with a A1c of 11.5% I have discussed importance of tight control blood sugar to slow the progression of renal disease. Orders: Orders Complete Blood Count Auto Diff 3 Weeks N18.5 - Chronic kidney disease, stage 5 Basic Metabolic Panel 3 Weeks N18.5 - Chronic kidney disease, stage 5 Parathyroid Hormone Intact 3 Weeks N18.5 - Chronic kidney disease, stage 5 Referrals Interventional Radiology Referral N18.5 - Chronic kidney disease, stage 5 Coding Level of Care Code Est Pt Level 4 (51051) Diagnoses CKD (chronic kidney disease) stage 5, GFR less than 15 ml/min N18.5 Anemia due to stage 5 chronic kidney disease, not on chronic dialysis N18.5; D63.1 Chronic kidney disease stage: stage 5, not on chronic dialysis Essential hypertension I10 Metabolic acidosis E87.20 Type 2 diabetes mellitus with unspecified complications E11.8 Hyperkalemia E87.5 Hyperparathyroidism E21.3
== END 2024-05-03 11:35 | disposition home or self-care (01) ==
PROVIDERS: PCP Internal Medicine; Visit Provider Internal Medicine Hypertension Specialist
DX: N18.5 Chronic kidney disease, stage 5 (principal); D63.1 Anemia in chronic kidney disease; I12.0 Hypertensive chronic kidney disease with stage 5 chronic kidney disease or end stage renal disease; E87.20 Acidosis, unspecified; E11.8 Type 2 diabetes mellitus with unspecified complications; E87.5 Hyperkalemia; E21.3 Hyperparathyroidism, unspecified
CPT/HCPCS: 99214

== ENCOUNTER → 2024-05-03 10:59 | Outpatient (BNVA) | payer OTHER, SELFPAY | PROVIDERS: PCP Internal Medicine; Visit Provider Internal Medicine Hypertension Specialist | DX: I12.0 Hypertensive chronic kidney disease with stage 5 chronic kidney disease or end stage renal disease (principal); E11.22 Type 2 diabetes mellitus with diabetic chronic kidney disease; N18.5 Chronic kidney disease, stage 5; D63.1 Anemia in chronic kidney disease; E87.20 Acidosis, unspecified; E87.5 Hyperkalemia; E21.3 Hyperparathyroidism, unspecified | CPT/HCPCS: 96372; Q5106 ==

== ENCOUNTER 2024-05-03 13:27 | Outpatient (AMB) | payer OTHER, SELFPAY ==
--- NOTE | 2024-05-03 13:28 | MHC.PC.OV ---
Vital Signs 05/03/24 13:41 Height 5 ft 7 in Weight 141 lb 6 oz BMI 22.1 BP 140/60 H Blood Pressure Location Lt brachial Position Sitting Pulse 52 Pulse Source Pulse Oximeter Pulse Oximetry (%) 98 Oxygen Delivery Method Room Air Intake Visit Reasons: Annual Exam Intake Note: Patient is here today for a physical. Pipe Bender Required: No Printed Circuit Boards Beveler: Not Required per policy Accompanied by: Self / Same As Patient Allergies No Known Allergies [No Known Allergies*] Allergy (Verified 05/03/24 14:12) Medication List - Last Reconciled 05/03/24 by Diaz Akers MD allopurinol 100 mg PO DAILY aspirin 81 mg PO DAILY atorvastatin 80 mg PO DAILY betamethasone dipropionate 0.05% 1 appl topical BID PRN blood sugar diagnostic (FreeStyle Test strips) As directed twice a day blood-glucose meter As directed calcitriol 0.25 mcg PO .1xw carvedilol 6.25 mg PO BID clopidogrel 75 mg PO DAILY diclofenac sodium 1% (Arthritis Pain (diclofenac)) 4 grams topical QID ferrous fumarate (Ferretts) 325 mg PO BID insulin glargine (Lantus Solostar U-100 Insulin) 15 units (0.15 mL) subcut QPM 90 days lancets As directed levothyroxine (Synthroid) 25 mcg PO DAILY mupirocin 2% 1 appl topical BID pen needle, diabetic As directed 1x daily sitagliptin phosphate (Januvia) 100 mg PO DAILY sodium bicarbonate 650 mg PO BID spironolactone 25 mg PO DAILY terazosin 5 mg PO BEDTIME 90 days Tobacco use date assessed: 05/03/24 Fall risk assessment: No Falls in past year Last assessed Fall Risk: 05/03/24 Dental Screening Dental Screen Date: 12/26/23 HPI Annual Exam HPI Details 79-year-old male presents to the office requesting an annual physical. In addition, patient is complaining of hoarseness in the throat. His voice has changed in the last 2 months. No difficulty swallowing. [facility] Medical History (Updated 05/03/24 @ 14:14 by Diaz Akers MD) CKD (chronic kidney disease) stage 5, GFR less than 15 ml/min Other and unspecified hyperlipidemia Essential hypertension Edema of both feet Prostate cancer Gout Hyperlipidemia Diabetes Surgical History History of hernia surgery Family History Mother No problems noted. Father No problems noted. Social History Housing: House Alcohol intake: never Patient Tobacco Use Status: Never used Tobacco e-Cigarette/Vaping Use: Never Used Second Hand Smoke Exposure: No service: No Current occupational status: retired Current occupation: rt handed Cognitive needs: No Hearing needs: No Vision needs: Yes (Glasses) Questionnaire Thrive Questionnaire Date Thrive assessed: 10/13/23 ALISA-7 AMB Questionnaire ALISA-7 Date ALISA - 7 assessed: 10/13/23 Source: Developed by Drs. Jorge Correa, Dominique Johnson, Andre Torres and colleagues, with an educational john from [place] Physical exam (Primary Care) Vital Signs: Last Vital Signs Pulse 52 05/03/24 13:41 BP 140/60 H 05/03/24 13:41 Pulse Ox 98 05/03/24 13:41 Oxygen Delivery Method Room Air 05/03/24 13:41 BMI result Body Mass Index 22.1 Tobacco/Smoking Status: Tobacco use Status Tobacco use date assessed 05/03/24 05/03/24 13:52 Patient Tobacco Use Status Never used Tobacco 05/03/24 13:29 e-Cigarette/Vaping Use Never Used 05/03/24 13:29 Thrive Assessment: Date of Thrive Assessment Date Thrive assessed 10/13/23 05/03/24 13:29 Const General: cooperative and healthy appearing Nutritional Appearance: well nourished Orientation/consciousness: patient oriented x3 Limitations: no limitations HENMT Head: Yes normal to inspection Eyes General: appearance normal, both eyes and all related structures Neck Neck: Yes normal visual inspection Chest Chest palpation & inspection: normal palpation of entire chest wall Resp Effort & Inspection: normal respiratory effort Neuro General: patient oriented x3 Results AMB Hemoglobin A1c AMB Hemoglobin A1c 7.6 % Last Edit by ARTIE Alford on 05/03/24 13:53 Results Reviewed Results Reviewed: Laboratory Last Values Hgb A1c (Clinic) 7.6 % (4.0-6.0) H 05/03/24 13:40 Assessment and Plan Assessment & Plan (1) CKD (chronic kidney disease) stage 5, GFR less than 15 ml/min: Code(s): N18.5 - Chronic kidney disease, stage 5 Plan: Nephrology note reviewed. Patient is getting ready for dialysis. Will undergo an AV stent placement (2) Acquired hypothyroidism: Code(s): E03.9 - Hypothyroidism, unspecified Plan: Continue current medications (3) Anemia due to chronic kidney disease: Code(s): N18.9 - Chronic kidney disease, unspecified; D63.1 - Anemia in chronic kidney disease Qualifiers: Chronic kidney disease stage: stage 5, not on chronic dialysis Qualified Code(s): N18.5 - Chronic kidney disease, stage 5; D63.1 - Anemia in chronic kidney disease Plan: Continue current medications. (4) Type 2 diabetes mellitus with unspecified complications: Code(s): E11.8 - Type 2 diabetes mellitus with unspecified complications Plan: A1c is elevated. However moderate control of sugar is being planned. (5) Essential hypertension: Code(s): I10 - Essential (primary) hypertension (6) Laryngitis: Code(s): J04.0 - Acute laryngitis Plan: An ENT referral for a possible laryngoscopy has been scheduled. (7) Annual physical exam: Code(s): Z00.00 - Encounter for general adult medical examination without abnormal findings Orders: Orders AMB Hemoglobin A1c Today E11.8 - Type 2 diabetes mellitus with unspecified complications Medications: Refilled sitagliptin phosphate (Januvia) 100 mg PO DAILY 90 tabs 1RF levothyroxine (Synthroid) 25 mcg PO DAILY 90 tabs 0RF insulin glargine (Lantus Solostar U-100 Insulin) 15 units (0.15 mL) subcut QPM 13.5 mL 3RF 90 days Coding Level of Care Code Est Pt Level 4 (53852) Est Pt Prev Care >65y(07400) Diagnoses CKD (chronic kidney disease) stage 5, GFR less than 15 ml/min N18.5 Acquired hypothyroidism E03.9 Anemia due to stage 5 chronic kidney disease, not on chronic dialysis N18.5; D63.1 Chronic kidney disease stage: stage 5, not on chronic dialysis Type 2 diabetes mellitus with unspecified complications E11.8 Essential hypertension I10 Laryngitis J04.0 Annual physical exam Z00.00
[2024-05-03 13:41] VITALS: BP 140/60; PULSE 52; O2SAT 98; BMI 22.1
== END 2024-05-03 14:11 | disposition home or self-care (01) ==
PROVIDERS: PCP Internal Medicine; Visit Provider Internal Medicine
DX: Z00.00 Encounter for general adult medical examination without abnormal findings (principal); I12.0 Hypertensive chronic kidney disease with stage 5 chronic kidney disease or end stage renal disease; N18.5 Chronic kidney disease, stage 5; E11.22 Type 2 diabetes mellitus with diabetic chronic kidney disease; E03.9 Hypothyroidism, unspecified; D63.1 Anemia in chronic kidney disease; J04.0 Acute laryngitis
CPT/HCPCS: 83036; 99397

== ENCOUNTER 2024-06-04 12:00 | Outpatient (REF) | payer OTHER, SELFPAY ==
[2024-06-04 13:06] LABS: MANUAL DIFF FLAG NO
[2024-06-04 13:24] LABS: Basophils Absolute Auto 0.1 X10*3/uL (0.0-0.2); Basophils Percent Auto 0.8 % (0-2); Eosinophils Absolute Auto 0.7 X10*3/uL (0.0-0.4); Eosinophils Percent Auto 7.3 % (0-4); Hematocrit 29.2 % (42.0-52.0); Hemoglobin 9.3 g/dl (14.0-18.0); Imm Gran Abs Auto 0.04 X10*3/uL (0.00-0.03); Imm Gran Pct Auto 0.5 % (0.0-0.4); Lymphocytes Absolute Auto 1.6 X10*3/uL (1.2-4.9); Lymphocytes Percent Auto 18.2 % (20-40); Mean Corpuscular HGB Conc 31.8 g/dl (31.0-36.0); Mean Corpuscular Hemoglobin 30.4 pg (27.0-33.0); Mean Corpuscular Volume 95.4 fL (80.0-98.0); Mean Platelet Volume 10.7 fL (9.4-12.4); Monocytes Absolute Auto 0.6 X10*3/uL (0.1-1.2); Monocytes Percent Auto 7.2 % (2-11); Neutrophils Absolute Auto 5.9 x10*3/uL (2.0-8.3); Platelet Count 275 X10*3/uL (160-400); Red Blood Count 3.06 X10*6/uL (4.60-5.80); Red Cell Distribution Width 15.9 % (11.0-16.0); White Blood Count 8.9 X10*3/uL (4.8-10.8)
[2024-06-04 13:41] LABS: Anion Gap 13 (12-20); Blood Urea Nitrogen 55 mg/dL (9-16); Calcium 9.3 mg/dL (8.4-10.2); Carbon Dioxide 18 mmol/L (22-29); Chloride 114 mmol/L (96-108); Estimated Glomerular Filt Rate 10; Glucose Random 217 mg/dL (60-115); Potassium 5.3 mmol/L (3.3-5.1); Sodium 140 mmol/L (135-145)
[2024-06-04 13:53] LABS: Parathyroid Hormone Intact 164.8 pg/mL (8.7-77.1)
== END 2024-06-04 12:01 | disposition home or self-care (01) ==
LOC: HO.10HDL 12:00
PROVIDERS: Visit Provider Internal Medicine Hypertension Specialist
DX: N18.5 Chronic kidney disease, stage 5 (principal)
CPT/HCPCS: 36415; 80048; 83970; 85025

== ENCOUNTER 2024-06-08 10:19 | Outpatient (AMB) | payer OTHER, SELFPAY ==
[2024-06-08 10:18] VITALS: BP 160/74; PULSE 73; BMI 22.1
--- NOTE | 2024-06-08 10:18 | HO.NEPHOV_ITS ---
Vital Signs 06/08/24 10:18 Height 5 ft 7 in Weight 141 lb BMI 22.1 BP 160/74 H Blood Pressure Location Lt brachial Position Sitting Pulse 73 Intake Visit Reasons: Anemia due to ckd/ LVM Intake Note: Follow-up anemia due to CKD feeling good [employer] Vulcanizer Required: No Allergies No Known Allergies [No Known Allergies*] Allergy (Verified 05/03/24 14:12) Medication List - Last Reconciled 06/08/24 by Nikolai Barros MD allopurinol 100 mg PO DAILY aspirin 81 mg PO DAILY atorvastatin 80 mg PO DAILY betamethasone dipropionate 0.05% 1 appl topical BID PRN blood sugar diagnostic (FreeStyle Test strips) As directed twice a day blood-glucose meter As directed calcitriol 0.25 mcg PO .1xw carvedilol 6.25 mg PO BID clopidogrel 75 mg PO DAILY diclofenac sodium 1% (Arthritis Pain (diclofenac)) 4 grams topical QID ferrous fumarate (Ferretts) 325 mg PO BID insulin glargine (Lantus Solostar U-100 Insulin) 15 units (0.15 mL) subcut QPM 90 days lancets As directed levothyroxine (Synthroid) 25 mcg PO DAILY mupirocin 2% 1 appl topical BID pen needle, diabetic As directed 1x daily sitagliptin phosphate (Januvia) 100 mg PO DAILY sodium bicarbonate 650 mg PO BID spironolactone 25 mg PO DAILY terazosin 5 mg PO BEDTIME 90 days HPI Comments Details: Elderly man with a history of longstanding diabetes mellitus hypertension with CKD. 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 Serum creatinine is between 4 and 5.0 mg/dL. Recently was hospitalized at [facility] for acute pulmonary edema and acute [place]. He was conservatively managed. History of for further follow-up regarding CKD. He has been receiving Epogen injections for the anemia. 04/05/2024. Overall he is feeling better. No specific complaints today. Lokelma has been denied by his insurance. 05/03/2024 No shortness of breath. No nausea or vomiting. He took Kayexalate and had upset stomach therefore he stopped taking it. [facility] Medical History (Updated 05/03/24 @ 14:14 by Diaz Akers MD) CKD (chronic kidney disease) stage 5, GFR less than 15 ml/min Other and unspecified hyperlipidemia Essential hypertension Edema of both feet Prostate cancer Gout Hyperlipidemia Diabetes Surgical History History of hernia surgery Family History Mother No problems noted. Father No problems noted. Social History Housing: House Alcohol intake: never Patient Tobacco Use Status: Never used Tobacco e-Cigarette/Vaping Use: Never Used Second Hand Smoke Exposure: No service: No Current occupational status: retired Current occupation: rt handed Cognitive needs: No Hearing needs: No Vision needs: Yes (Glasses) Physical Exam Vital Signs: Last Vital Signs Pulse 73 06/08/24 10:18 BP 160/74 H 06/08/24 10:18 BMI result Body Mass Index 22.1 Office Meds epoetin [id number] 20,000 unit/mL injection solution Performing Provider: Nikolai Barros MD Performing Location: [facility] [place] [place] [facility] Administered by: Nikolai Barros MD on 06/08/24 10:34 Dose Route Admin Location Dispensed Lot Number Expiration Date [facility] Residential Program Coordinator 20,000 unit subcut right arm-sq 1 mL [id number] 05/10/26 6515-4123-12 [employer] Results Reviewed Nephrology Results: Hgb 9.3 g/dl (14.0-18.0) L 06/04/24 WBC 8.9 X10*3/uL (4.8-10.8) 06/04/24 Plt Count 275 X10*3/uL (160-400) 06/04/24 Sodium 140 mmol/L (135-145) 06/04/24 Potassium 5.3 mmol/L (3.3-5.1) H 06/04/24 Chloride 114 mmol/L (96-108) H 06/04/24 Carbon Dioxide 18 mmol/L (22-29) L 06/04/24 BUN 55 mg/dL (9-16) H 06/04/24 Creatinine 5.33 mg/dL (0.5-1.4) H* 06/04/24 Calcium 9.3 mg/dL (8.4-10.2) 06/04/24 PTH Intact 164.8 pg/mL (8.7-77.1) H 06/04/24 Assessment & Plan Assessment & Plan (1) CKD (chronic kidney disease) stage 5, GFR less than 15 ml/min: Code(s): N18.5 - Chronic kidney disease, stage 5 Category: Medical Plan: CKD 5. No signs or symptoms of uremia. He is approaching end stage renal disease. No indication for dialysis YET Seen by dialysis educator for CCPD Seen by Dr. Chester for insertion of Tenckhoff catheter (2) Anemia due to chronic kidney disease: Code(s): N18.9 - Chronic kidney disease, unspecified; D63.1 - Anemia in chronic kidney disease Category: Medical Qualifiers: Chronic kidney disease stage: stage 5, not on chronic dialysis Qualified Code(s): N18.5 - Chronic kidney disease, stage 5; D63.1 - Anemia in chronic kidney disease Plan: Anemia due to CKD. Hemoglobin is low. His iron levels were low. Administered Retacrit 60730 units subcutaneously tolerated (3) Essential hypertension: Code(s): I10 - Essential (primary) hypertension Category: Medical Plan: Hypertension blood pressure is acceptable Stay on low-sodium diet (4) Metabolic acidosis: Code(s): E87.20 - Acidosis, unspecified Category: Medical Plan: Sodium bicarbonate 650 mg p.o. twice a day (5) Type 2 diabetes mellitus with unspecified complications: Code(s): E11.8 - Type 2 diabetes mellitus with unspecified complications Category: Medical Plan: Goal is to maintain A1c less than 7%. Unable to add SGLT2 inhibitors like Jardiance due to hyperkalemia. (6) Hyperkalemia: Code(s): E87.5 - Hyperkalemia Category: Medical Plan: Primarily due to the use of spironolactone in setting of advanced kidney disease. Yuliya was denied I prescribed Kayexalate. Encouraged him to stay on low-potassium diet. The potassium stays persistently elevated we might have to discontinue spironolactone. Kayexalate twice a week (7) Hyperparathyroidism: Code(s): E21.3 - Hyperparathyroidism, unspecified Category: Medical Plan: Ca is high Decrease Calcitriol to Once a week DC Calcium tabs Plan Of note blood sugar seems suboptimal recent blood sugar was 460 with a A1c of 11.5% I have discussed importance of tight control blood sugar to slow the progression of renal disease. Orders: Orders Complete Blood Count Auto Diff 4 Weeks D63.1 - Anemia in chronic kidney disease, E87.20 - Acidosis, unspecified, N18.5 - Chronic kidney disease, stage 5 AMB Epoetin Injection Practice Supplied Today N40.1 - Benign prostatic hyperplasia with lower urinary tract symptoms Basic Metabolic Panel 4 Weeks D63.1 - Anemia in chronic kidney disease, E87.20 - Acidosis, unspecified, N18.5 - Chronic kidney disease, stage 5 Coding Level of Care Code Est Pt Level 4 (82189) Diagnoses CKD (chronic kidney disease) stage 5, GFR less than 15 ml/min N18.5 Anemia due to stage 5 chronic kidney disease, not on chronic dialysis N18.5; D63.1 Chronic kidney disease stage: stage 5, not on chronic dialysis Essential hypertension I10 Metabolic acidosis E87.20 Type 2 diabetes mellitus with unspecified complications E11.8 Hyperkalemia E87.5 Hyperparathyroidism E21.3
== END 2024-06-08 10:38 | disposition home or self-care (01) ==
PROVIDERS: PCP Internal Medicine; Visit Provider Internal Medicine Hypertension Specialist
DX: N18.5 Chronic kidney disease, stage 5 (principal); D63.1 Anemia in chronic kidney disease; I12.0 Hypertensive chronic kidney disease with stage 5 chronic kidney disease or end stage renal disease; E87.20 Acidosis, unspecified; E11.8 Type 2 diabetes mellitus with unspecified complications; E87.5 Hyperkalemia; E21.3 Hyperparathyroidism, unspecified; N40.1 Benign prostatic hyperplasia with lower urinary tract symptoms
CPT/HCPCS: 99214

== ENCOUNTER → 2024-06-08 10:19 | Outpatient (BNVA) | payer OTHER, SELFPAY | PROVIDERS: PCP Internal Medicine; Visit Provider Internal Medicine Hypertension Specialist | DX: I12.0 Hypertensive chronic kidney disease with stage 5 chronic kidney disease or end stage renal disease (principal); E11.22 Type 2 diabetes mellitus with diabetic chronic kidney disease; N18.5 Chronic kidney disease, stage 5; D63.1 Anemia in chronic kidney disease; E87.20 Acidosis, unspecified; E87.5 Hyperkalemia; E21.3 Hyperparathyroidism, unspecified | CPT/HCPCS: 96372; Q5106 ==

== ENCOUNTER 2024-06-28 09:49 | Outpatient (AMB) | payer OTHER, SELFPAY ==
[2024-06-28 09:53] VITALS: BP 160/62; PULSE 67; BMI 22.4
--- NOTE | 2024-06-28 09:53 | MHC.OFFVIS ---
Vital Signs 06/28/24 09:53 Height 5 ft 7 in Weight 143 lb 1.28 oz BMI 22.4 BP 160/62 H Blood Pressure Location Lt brachial Position Sitting Pulse 67 Pulse Source Pulse Oximeter Intake Visit Reasons: 1 yr f/up s/p echo Picture Frames Inspector Required: No Accompanied by: Self / Same As Patient Allergies No Known Allergies [No Known Allergies*] Allergy (Verified 05/03/24 14:12) Medication List - Last Reconciled 06/28/24 by Vasquez Chang MD allopurinol 100 mg PO DAILY aspirin 81 mg PO DAILY atorvastatin 80 mg PO DAILY betamethasone dipropionate 0.05% 1 appl topical BID PRN blood sugar diagnostic (FreeStyle Test strips) As directed twice a day blood-glucose meter As directed calcitriol 0.25 mcg PO .1xw carvedilol 6.25 mg PO BID clopidogrel 75 mg PO DAILY diclofenac sodium 1% (Arthritis Pain (diclofenac)) 4 grams topical QID ferrous fumarate (Ferretts) 325 mg PO BID insulin glargine (Lantus Solostar U-100 Insulin) 15 units (0.15 mL) subcut QPM 90 days lancets As directed levothyroxine (Synthroid) 25 mcg PO DAILY mupirocin 2% 1 appl topical BID pen needle, diabetic As directed 1x daily sitagliptin phosphate (Januvia) 100 mg PO DAILY sodium bicarbonate 650 mg PO BID spironolactone 25 mg PO DAILY terazosin 5 mg PO BEDTIME 90 days HPI Comments Details: Jorge returns for follow-up regarding coronary artery disease. Multiple cardiovascular risk factors including diabetes, hypertension, dyslipidemia, chronic kidney disease. In the past, he was followed for suspected CAD but not aggressively pursued because of chronic kidney disease. There was a recent admission with acute pulmonary edema. At that time, thought to be ischemic in etiology and then sent to [facility]. However, because of advanced renal disease, he did not get catheterization. It was felt that catheterization will put him on dialysis. He underwent noninvasive workup only and then discharged on optimal therapy. Currently, he states he feels fine. Absolutely no cardiac symptoms. [facility] Medical History (Updated 06/28/24 @ 11:41 by Vasquez Chang MD) Atherosclerotic cardiovascular disease CKD (chronic kidney disease) stage 5, GFR less than 15 ml/min Other and unspecified hyperlipidemia Essential hypertension Edema of both feet Prostate cancer Gout Hyperlipidemia Diabetes Surgical History History of hernia surgery Family History Mother No problems noted. Father No problems noted. Social History Housing: House Alcohol intake: never Patient Tobacco Use Status: Never used Tobacco e-Cigarette/Vaping Use: Never Used Second Hand Smoke Exposure: No service: No Current occupational status: retired Current occupation: rt handed Cognitive needs: No Hearing needs: No Vision needs: Yes (Glasses) Review of Systems Const Denies chills, Denies fatigue, Denies fever(s), Denies frequent falls, Denies weakness, Denies weight gain and Denies weight loss ENT Denies dizziness Card Denies chest pain, Denies leg edema, Denies lightheadedness, Denies palpitations, Denies dyspnea and Denies dyspnea on exertion Resp Denies cough, Denies dyspnea and Denies dyspnea on exertion GI Denies hematochezia Musc Denies abnormal gait, Denies muscle weakness, Denies numbness, Denies radiating pain into limb and Denies tingling Neuro Denies abnormal gait, Denies dizziness, Denies frequent falls, Denies numbness, Denies tingling and Denies weakness Endo Denies fatigue and Denies palpitations Physical Exam Vital Signs: Last Vital Signs Pulse 67 06/28/24 09:53 BP 160/62 H 06/28/24 09:53 BMI result Body Mass Index 22.4 Const General: comfortable and no acute distress Orientation/consciousness: patient oriented x3 HEENT Other: Unremarkable Head: Yes normal to inspection Neck Neck: Yes normal visual inspection Chest Chest palpation & inspection: normal inspection of the chest Resp Auscultation: clear to auscultation bilaterally Cardio Palpation: normal PMI Heart sounds: S1 normal heart sound present, S2 normal heart sound present, no gallops, no murmurs and no rubs GI Palpation (GI): Soft to palpation Back/Spine/Pelvis Other: unremarkable Skin General skin exam: no rashes or lesions noted Neuro General: patient oriented x3 Extrem General: Yes normal to inspection Psych Mental Status: mental status grossly normal Assessment & Plan Assessment & Plan (1) Atherosclerotic cardiovascular disease: Code(s): I25.10 - Atherosclerotic heart disease of [place] coronary artery without angina pectoris Category: Medical Plan: Echocardiogram-LVEF 20-25% with wall motion abnormalities from underlying coronary disease. Myocardial perfusion imaging study from [facility]-February 2025-large partially reversible anteroseptal/apical defect consistent with infarction with jaret-infarct ischemia. Reversible defect of inferior wall/inferior septum consistent with ischemia. Because of high risk of dialysis, cardiac catheterization not pursued. Clinically, he has got no angina at this time. Continue aspirin/Plavix. Continue beta-blockers and statins. Lipids from [facility]-LDL 47 mg/dL. Triglycerides 74 mg/dL. We can consider cardiac catheterization after he actually starts hemodialysis or if any decompensation in the interim. (2) Chronic combined systolic and diastolic CHF (congestive heart failure): Code(s): I50.42 - Chronic combined systolic (congestive) and diastolic (congestive) heart failure Category: Medical Plan: Not listed to be on regular diuretics. Clinically, he seems euvolemic. (3) Essential hypertension: Code(s): I10 - Essential (primary) hypertension Category: Medical Plan: Blood pressure is high. Start amlodipine. (4) Type 2 diabetes mellitus with unspecified complications: Code(s): E11.8 - Type 2 diabetes mellitus with unspecified complications Category: Medical Plan: Hemoglobin A1c is 7.6%. Prior to that, 11.8%. Less than optimal control. On insulin and Januvia. (5) CKD (chronic kidney disease) stage 5, GFR less than 15 ml/min: Code(s): N18.5 - Chronic kidney disease, stage 5 Category: Medical Plan: Close follow-up with Nephrology. May be nearing dialysis. Plan Total time spent including review of [facility] records, counseling, documentation, coordination of care-50 minutes. Medications: New atorvastatin 80 mg PO DAILY 90 tabs 3RF amlodipine 5 mg PO DAILY 90 tabs 3RF Changed From clopidogrel 75 mg PO DAILY To clopidogrel 75 mg PO DAILY 90 tabs 3RF 90 days Coding Level of Care Code Est Pt Level 5 (14222) Diagnoses Atherosclerotic cardiovascular disease I25.10 Chronic combined systolic and diastolic CHF (congestive heart failure) I50.42 Essential hypertension I10 Type 2 diabetes mellitus with unspecified complications E11.8 CKD (chronic kidney disease) stage 5, GFR less than 15 ml/min N18.5
== END 2024-06-28 10:19 | disposition home or self-care (01) ==
PROVIDERS: PCP Internal Medicine; Visit Provider Internal Medicine
DX: I25.10 Atherosclerotic heart disease of native coronary artery without angina pectoris (principal); I50.42 Chronic combined systolic (congestive) and diastolic (congestive) heart failure; I12.0 Hypertensive chronic kidney disease with stage 5 chronic kidney disease or end stage renal disease; E11.8 Type 2 diabetes mellitus with unspecified complications; N18.5 Chronic kidney disease, stage 5
CPT/HCPCS: 99215

== ENCOUNTER → 2024-06-28 09:49 | Outpatient (BNVA) | payer OTHER, SELFPAY | PROVIDERS: PCP Internal Medicine; Visit Provider Internal Medicine ==

== ENCOUNTER 2024-07-02 10:54 | Outpatient (REF) | payer OTHER, SELFPAY ==
[2024-07-02 13:14] LABS: MANUAL DIFF FLAG NO
[2024-07-02 13:18] LABS: Basophils Absolute Auto 0.1 X10*3/uL (0.0-0.2); Basophils Percent Auto 0.7 % (0-2); Eosinophils Absolute Auto 0.4 X10*3/uL (0.0-0.4); Eosinophils Percent Auto 6.3 % (0-4); Hematocrit 29.4 % (42.0-52.0); Hemoglobin 9.2 g/dl (14.0-18.0); Imm Gran Abs Auto 0.01 X10*3/uL (0.00-0.03); Imm Gran Pct Auto 0.1 % (0.0-0.4); Lymphocytes Absolute Auto 1.4 X10*3/uL (1.2-4.9); Lymphocytes Percent Auto 20.2 % (20-40); Mean Corpuscular HGB Conc 31.3 g/dl (31.0-36.0); Mean Corpuscular Hemoglobin 30.2 pg (27.0-33.0); Mean Corpuscular Volume 96.4 fL (80.0-98.0); Mean Platelet Volume 11.1 fL (9.4-12.4); Monocytes Absolute Auto 0.6 X10*3/uL (0.1-1.2); Monocytes Percent Auto 8.1 % (2-11); Neutrophils Absolute Auto 4.5 x10*3/uL (2.0-8.3); Neutrophils Percent Auto 64.6 % (45-73); Platelet Count 218 X10*3/uL (160-400); Red Blood Count 3.05 X10*6/uL (4.60-5.80); Red Cell Distribution Width 15.9 % (11.0-16.0); White Blood Count 6.9 X10*3/uL (4.8-10.8)
[2024-07-02 13:56] LABS: Ferritin 378 ng/mL (20-250)
[2024-07-02 14:04] LABS: Anion Gap 15 (12-20); Blood Urea Nitrogen 55 mg/dL (9-16); Calcium 9.6 mg/dL (8.4-10.2); Carbon Dioxide 19 mmol/L (22-29); Chloride 111 mmol/L (96-108); Iron 69 mcg/dL (45-160); Percent Iron Saturation 35 % (15-50); Potassium 5.6 mmol/L (3.3-5.1); Sodium 139 mmol/L (135-145); Total Iron Binding Capacity 196 mcg/dL (228-428); Unsaturated Iron Binding 127 ug/dL
[2024-07-02 14:12] LABS: Estimated Glomerular Filt Rate 10; Glucose Random 373 mg/dL (60-115)
== END 2024-07-02 10:55 | disposition home or self-care (01) ==
LOC: HO.10HDL 10:54
PROVIDERS: Visit Provider Internal Medicine Hypertension Specialist
DX: N18.5 Chronic kidney disease, stage 5 (principal); D63.1 Anemia in chronic kidney disease; E87.20 Acidosis, unspecified
CPT/HCPCS: 36415; 80048; 82728; 83540; 85025

== ENCOUNTER 2024-07-05 11:10 | Outpatient (AMB) | payer OTHER, SELFPAY ==
[2024-07-05 11:19] VITALS: BP 150/52; PULSE 71; O2SAT 99; BMI 22.6
--- NOTE | 2024-07-05 11:19 | HO.NEPHOV_ITS ---
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 Serum creatinine is between 4 and 5.0 mg/dL. Recently was hospitalized at [facility] [place] of for acute pulmonary edema and acute PR. He was conservatively managed. History of for further follow-up regarding CKD. He has been receiving Epogen injections for the anemia. 04/05/2024. Overall he is feeling better. No specific complaints today. Lokelma has been denied by his insurance. 05/03/2024 No shortness of breath. No nausea or vomiting. He took Kayexalate and had upset stomach therefore he stopped taking it. [facility] Medical History (Updated 06/28/24 @ 11:41 by Vasquez Chang MD) Atherosclerotic cardiovascular disease CKD (chronic kidney disease) stage 5, GFR less than 15 ml/min Other and unspecified hyperlipidemia Essential hypertension Edema of both feet Prostate cancer Gout Hyperlipidemia Diabetes Surgical History History of hernia surgery Family History Mother No problems noted. Father No problems noted. Social History Housing: House Alcohol intake: never Patient Tobacco Use Status: Never used Tobacco e-Cigarette/Vaping Use: Never Used Second Hand Smoke Exposure: No service: No Current occupational status: retired Current occupation: rt handed Cognitive needs: No Hearing needs: No Vision needs: Yes (Glasses) Physical Exam Vital Signs: Last Vital Signs Pulse 71 07/05/24 11:19 BP 150/52 H 07/05/24 11:19 Pulse Ox 99 07/05/24 11:19 Oxygen Delivery Method Room Air 07/05/24 11:19 BMI result Body Mass Index 22.6 Office Meds epoetin kelley-epbx 20,000 unit/mL injection solution Performing Provider: Nikolai Barros MD Performing Location[facility] [place] Administered by: Nikolai Barros MD on 07/05/24 11:39 Dose Route Admin Location Dispensed Lot Number Expiration Date [facility] Compressed Yeast Supervisor 20,000 unit subcut left arm 1 mL [id number] 09/09/25 4735-2131-45 [employer] Results Reviewed Nephrology Results: Hgb 9.2 g/dl (14.0-18.0) L 07/02/24 WBC 6.9 X10*3/uL (4.8-10.8) 07/02/24 Plt Count 218 X10*3/uL (160-400) 07/02/24 Sodium 139 mmol/L (135-145) 07/02/24 Potassium 5.6 mmol/L (3.3-5.1) H 07/02/24 Chloride 111 mmol/L (96-108) H 07/02/24 Carbon Dioxide 19 mmol/L (22-29) L 07/02/24 BUN 55 mg/dL (9-16) H 07/02/24 Creatinine 5.43 mg/dL (0.5-1.4) H* 07/02/24 Calcium 9.6 mg/dL (8.4-10.2) 07/02/24 PTH Intact 164.8 pg/mL (8.7-77.1) H 06/04/24 Assessment & Plan Assessment & Plan (1) CKD (chronic kidney disease) stage 5, GFR less than 15 ml/min: Code(s): N18.5 - Chronic kidney disease, stage 5 Category: Medical Plan: CKD 5. No signs or symptoms of uremia. He is approaching end stage renal disease. No indication for dialysis YET Seen by dialysis educator for [facility] Seen by Dr. Chester for insertion of Tenckhoff catheter (2) Anemia due to chronic kidney disease: Code(s): N18.9 - Chronic kidney disease, unspecified; D63.1 - Anemia in chronic kidney disease Category: Medical Qualifiers: Chronic kidney disease stage: stage 5, not on chronic dialysis Qualified Code(s): N18.5 - Chronic kidney disease, stage 5; D63.1 - Anemia in chronic kidney disease Plan: Anemia due to CKD. Hemoglobin is low. His iron levels acceptable Administered Retacrit 21754 units subcutaneously tolerated (3) Essential hypertension: Code(s): I10 - Essential (primary) hypertension Category: Medical Plan: Hypertension blood pressure is acceptable Stay on low-sodium diet (4) Metabolic acidosis: Code(s): E87.20 - Acidosis, unspecified Category: Medical Plan: Sodium bicarbonate 650 mg p.o. twice a day (5) Type 2 diabetes mellitus with unspecified complications: Code(s): E11.8 - Type 2 diabetes mellitus with unspecified complications Category: Medical Plan: Goal is to maintain A1c less than 7%. Unable to add SGLT2 inhibitors like Jardiance due to hyperkalemia. (6) Hyperkalemia: Code(s): E87.5 - Hyperkalemia Category: Medical Plan: Primarily due to the use of spironolactone in setting of advanced kidney disease. Lokelma was denied I prescribed Kayexalate. Encouraged him to stay on low-potassium diet. The potassium stays persistently elevated we might have to discontinue spironolactone. Kayexalate twice a week (7) Hyperparathyroidism: Code(s): E21.3 - Hyperparathyroidism, unspecified Category: Medical Plan: Ca is high Decrease Calcitriol to Once a week DC Calcium tabs Plan Of note blood sugar seems suboptimal recent blood sugar was 460 with a A1c of 11.5% I have discussed importance of tight control blood sugar to slow the progression of renal disease. Orders: Orders AMB Epoetin Injection Practice Supplied 07/05/24 N40.1 - Benign prostatic hyperplasia with lower urinary tract symptoms Coding Level of Care Code Est Pt Level 4 (69056) Diagnoses CKD (chronic kidney disease) stage 5, GFR less than 15 ml/min N18.5 Anemia due to stage 5 chronic kidney disease, not on chronic dialysis N18.5; D63.1 Chronic kidney disease stage: stage 5, not on chronic dialysis Essential hypertension I10 Metabolic acidosis E87.20 Type 2 diabetes mellitus with unspecified complications E11.8 Hyperkalemia E87.5 Hyperparathyroidism E21.3
== END 2024-07-05 12:11 | disposition home or self-care (01) ==
PROVIDERS: PCP Internal Medicine; Visit Provider Internal Medicine Hypertension Specialist
DX: I12.0 Hypertensive chronic kidney disease with stage 5 chronic kidney disease or end stage renal disease (principal); E11.22 Type 2 diabetes mellitus with diabetic chronic kidney disease; N18.5 Chronic kidney disease, stage 5; D63.1 Anemia in chronic kidney disease; E21.3 Hyperparathyroidism, unspecified; E87.20 Acidosis, unspecified; E87.5 Hyperkalemia
CPT/HCPCS: 99214

== ENCOUNTER → 2024-07-05 11:10 | Outpatient (BNVA) | payer OTHER, SELFPAY | PROVIDERS: PCP Internal Medicine; Visit Provider Internal Medicine Hypertension Specialist | DX: I12.0 Hypertensive chronic kidney disease with stage 5 chronic kidney disease or end stage renal disease (principal); E11.22 Type 2 diabetes mellitus with diabetic chronic kidney disease; N18.5 Chronic kidney disease, stage 5; D63.1 Anemia in chronic kidney disease; E87.20 Acidosis, unspecified; E87.5 Hyperkalemia; E21.3 Hyperparathyroidism, unspecified | CPT/HCPCS: 96372; Q5106 ==

== ENCOUNTER 2024-07-24 11:46 | Outpatient (REF) | payer OTHER, SELFPAY ==
[2024-07-24 14:13] LABS: Parathyroid Hormone Intact 56.8 pg/mL (8.7-77.1)
== END 2024-07-24 11:47 | disposition home or self-care (01) ==
LOC: HO.10HDL 11:46
PROVIDERS: Visit Provider Internal Medicine Hypertension Specialist
DX: N18.5 Chronic kidney disease, stage 5 (principal); D63.1 Anemia in chronic kidney disease
CPT/HCPCS: 36415; 83970

== ENCOUNTER 2024-07-30 10:19 | Outpatient (AMB) | payer OTHER, SELFPAY ==
--- NOTE | 2024-07-30 09:36 | HO.NEPHOV_ITS ---
Vital Signs 07/30/24 10:30 Height 5 ft 7 in Weight 145 lb BMI 22.7 BP 124/50 L Blood Pressure Location Rt brachial Position Sitting Pulse 69 Pulse Source Pulse Oximeter Pulse Oximetry (%) 99 Oxygen Delivery Method Room Air Intake Visit Reasons: Retacrit 3 weeks follow up/LVM Account Engineer Required: No Accompanied by: Self / Same As Patient Allergies No Known Allergies [No Known Allergies*] Allergy (Verified 07/30/24 10:33) Medication List - Last Reconciled 07/30/24 by Jeni Fitzgerald, DNP, LOG CUT OFF SAWYER-BC allopurinol 100 mg PO DAILY amlodipine 5 mg PO DAILY aspirin 81 mg PO DAILY atorvastatin 80 mg PO DAILY betamethasone dipropionate 0.05% 1 appl topical BID PRN blood sugar diagnostic (FreeStyle Test strips) As directed twice a day blood-glucose meter As directed calcitriol 0.25 mcg PO .1xw carvedilol 6.25 mg PO BID 90 days clopidogrel 75 mg PO DAILY 90 days diclofenac sodium 1% (Arthritis Pain (diclofenac)) 4 grams topical QID ferrous fumarate (Ferretts) 325 mg PO BID insulin glargine (Lantus Solostar U-100 Insulin) 15 units (0.15 mL) subcut QPM 90 days lancets As directed levothyroxine (Synthroid) 25 mcg PO DAILY mupirocin 2% 1 appl topical BID pen needle, diabetic As directed 1x daily sitagliptin phosphate (Januvia) 100 mg PO DAILY sodium bicarbonate 650 mg PO BID sodium polystyrene sulfonate 15 grams PO .2w spironolactone 25 mg PO DAILY terazosin 5 mg PO BEDTIME 90 days HPI Comments Details: Elderly man with a history of longstanding diabetes mellitus hypertension with CKD. 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 Serum creatinine is between 4 and 5.43 mg/dL. states he is doing well today denies nausea, vomiting, muscle cramps, tremors, pruritus , chest pain/palpitations has been seen by dialysis educator for [facility] anemia- He has been receiving Epogen injections; last H&H 9.2 & 29.4 on 07/02/24 hyperkalemia- lokelma not covered by insurance. He is taking kayexalate, though states he only took 1 dose last week (prescribed twice weekly). Does not like the taste. He is eating a low potassium diet. hypertension- 25mg spironolactone PO daily, amlodipine 5mg daily, carvedilol 6.25mg PO daily, terazosin 5mg PO daily metabolic acidosis - he is taking sodium bicarbonate 650mg PO BID [facility] Medical History (Updated 06/28/24 @ 11:41 by Vasquez Chang MD) Atherosclerotic cardiovascular disease CKD (chronic kidney disease) stage 5, GFR less than 15 ml/min Other and unspecified hyperlipidemia Essential hypertension Edema of both feet Prostate cancer Gout Hyperlipidemia Diabetes Surgical History History of hernia surgery Family History Mother No problems noted. Father No problems noted. Social History Housing: House Alcohol intake: never Patient Tobacco Use Status: Never used Tobacco e-Cigarette/Vaping Use: Never Used Second Hand Smoke Exposure: No service: No Current occupational status: retired Current occupation: rt handed Cognitive needs: No Hearing needs: No Vision needs: Yes (Glasses) Review of Systems Const Denies anorexia, Denies fever(s) and Denies weakness ENT Denies dizziness Card Denies no additional complaints and Denies dyspnea Resp Reports no additional complaints and Denies dyspnea GI Denies melena, Denies diarrhea, Denies nausea and Denies vomiting Denies hematuria Musc Denies muscle cramps Skin/Breast Denies rash Neuro Denies dizziness, Denies focal weakness, Denies tremor(s) and Denies weakness Physical Exam Vital Signs: Last Vital Signs Pulse 69 07/30/24 10:30 BP 124/50 L 07/30/24 10:30 Pulse Ox 99 07/30/24 10:30 Oxygen Delivery Method Room Air 07/30/24 10:30 BMI result Body Mass Index 22.7 Const General: comfortable and no acute distress Orientation/consciousness: oriented to person, oriented to place and oriented to time Neck Neck: Yes no JVD Resp Effort & Inspection: able to speak in complete sentences Auscultation: clear to auscultation bilaterally Cardio Jugular venous distension: no JVD Rate: regular rate Rhythm: regular rhythm Heart sounds: S1 normal heart sound present and S2 normal heart sound present GI Palpation (GI): Soft to palpation Rectal Exam - Male: No tenderness General: Yes no CVA tenderness Back/Spine/Pelvis Back: no CVA tenderness Skin Rashes: no rashes Neuro General: oriented to person, oriented to place and oriented to time Extrem General: Yes normal to inspection, No edema and No pedal edema Office Meds epoetin kelley 20,000 unit/mL injection solution Performing Provider: Jeni Fitzgerald DNP, FNP-BC Performing Location[facility] Administered by: Jeni Fitzgerald DNP, FNP-BC on 07/30/24 10:52 Dose Route Admin Location Dispensed Lot Number Expiration Date [facility] Computer Security Manager 20,000 unit subcut Left arm 1 mL [id number] 02/07/26 2717-4911-28 [employer] Results Reviewed Nephrology Results: Hgb 9.2 g/dl (14.0-18.0) L 07/02/24 WBC 6.9 X10*3/uL (4.8-10.8) 07/02/24 Plt Count 218 X10*3/uL (160-400) 07/02/24 Sodium 139 mmol/L (135-145) 07/02/24 Potassium 5.6 mmol/L (3.3-5.1) H 07/02/24 Chloride 111 mmol/L (96-108) H 07/02/24 Carbon Dioxide 19 mmol/L (22-29) L 07/02/24 BUN 55 mg/dL (9-16) H 07/02/24 Creatinine 5.43 mg/dL (0.5-1.4) H* 07/02/24 Calcium 9.6 mg/dL (8.4-10.2) 07/02/24 PTH Intact 56.8 pg/mL (8.7-77.1) 07/24/24 Assessment & Plan Assessment & Plan (1) CKD (chronic kidney disease) stage 5, GFR less than 15 ml/min: Code(s): N18.5 - Chronic kidney disease, stage 5 Category: Medical Plan: No signs or symptoms of uremia today He is approaching ESRD. No indication for dialysis yet. seen by dialysis educator for [facility] seen by Dr Chester for insertion of Tenckhoff catheter (2) Essential hypertension: Code(s): I10 - Essential (primary) hypertension Category: Medical Plan: Blood pressure is well-controlled today continue current medication regimen continue low-sodium diet, regular exercise and maintain a healthy body weight (3) Anemia due to chronic kidney disease: Code(s): N18.9 - Chronic kidney disease, unspecified; D63.1 - Anemia in chronic kidney disease Category: Medical Qualifiers: Chronic kidney disease stage: stage 5, not on chronic dialysis Qualified Code(s): N18.5 - Chronic kidney disease, stage 5; D63.1 - Anemia in chronic kidney disease Plan: Anemia 2/2 CKD. Hemoglobin is low. Iron levels acceptable administered retacrit 20,000 units subcutaneously and toelrated well today (4) Metabolic acidosis: Code(s): E87.20 - Acidosis, unspecified Category: Medical Plan: Continue sodium bicarbonate 650mg PO BID (5) Hyperkalemia: Code(s): E87.5 - Hyperkalemia Category: Medical Plan: primarily due to the use of spironolactone in setting of advanced kidney disease lokelma denied by insurance; advised should take kayexalate twice weekly as prescribed encouraged to continue low-potassium diet Orders: Orders Complete Blood Count Auto Diff Today D63.1 - Anemia in chronic kidney disease, E87.5 - Hyperkalemia, N18.5 - Chronic kidney disease, stage 5 AMB Epoetin Injection Practice Supplied Today D63.1 - Anemia in chronic kidney disease, N18.5 - Chronic kidney disease, stage 5 Basic Metabolic Panel Today D63.1 - Anemia in chronic kidney disease, E87.5 - Hyperkalemia, N18.30 - Chronic kidney disease, stage 3 unspecified, N18.5 - Chronic kidney disease, stage 5 Coding Level of Care Code Est Pt Level 4 (58821) Diagnoses CKD (chronic kidney disease) stage 5, GFR less than 15 ml/min N18.5 Essential hypertension I10 Anemia due to stage 5 chronic kidney disease, not on chronic dialysis N18.5; D63.1 Chronic kidney disease stage: stage 5, not on chronic dialysis Metabolic acidosis E87.20 Hyperkalemia E87.5
[2024-07-30 10:30] VITALS: BP 124/50; PULSE 69; O2SAT 99; BMI 22.7
== END 2024-07-30 10:46 | disposition home or self-care (01) ==
PROVIDERS: PCP Internal Medicine; Visit Provider Nurse Practitioner Family
DX: E11.22 Type 2 diabetes mellitus with diabetic chronic kidney disease (principal); I12.0 Hypertensive chronic kidney disease with stage 5 chronic kidney disease or end stage renal disease; N18.5 Chronic kidney disease, stage 5; D63.1 Anemia in chronic kidney disease; E87.20 Acidosis, unspecified; E87.5 Hyperkalemia
CPT/HCPCS: 99214

== ENCOUNTER → 2024-07-30 10:19 | Outpatient (BNVA) | payer OTHER, SELFPAY | PROVIDERS: PCP Internal Medicine; Visit Provider Nurse Practitioner Family | DX: I12.0 Hypertensive chronic kidney disease with stage 5 chronic kidney disease or end stage renal disease (principal); N18.5 Chronic kidney disease, stage 5; D63.1 Anemia in chronic kidney disease; E87.20 Acidosis, unspecified; E87.5 Hyperkalemia | CPT/HCPCS: 96372; J0885 ==

== ENCOUNTER 2024-07-30 10:54 | Outpatient (REF) | payer OTHER, SELFPAY ==
[2024-07-30 13:23] LABS: MANUAL DIFF FLAG NO
[2024-07-30 13:35] LABS: Basophils Absolute Auto 0.1 X10*3/uL (0.0-0.2); Basophils Percent Auto 0.8 % (0-2); Eosinophils Absolute Auto 0.5 X10*3/uL (0.0-0.4); Eosinophils Percent Auto 5.6 % (0-4); Hematocrit 30.9 % (42.0-52.0); Imm Gran Abs Auto 0.03 X10*3/uL (0.00-0.03); Imm Gran Pct Auto 0.3 % (0.0-0.4); Lymphocytes Absolute Auto 1.5 X10*3/uL (1.2-4.9); Lymphocytes Percent Auto 16.9 % (20-40); Mean Corpuscular HGB Conc 32.4 g/dl (31.0-36.0); Mean Corpuscular Hemoglobin 30.9 pg (27.0-33.0); Mean Corpuscular Volume 95.4 fL (80.0-98.0); Mean Platelet Volume 10.6 fL (9.4-12.4); Monocytes Absolute Auto 0.6 X10*3/uL (0.1-1.2); Monocytes Percent Auto 7.3 % (2-11); Neutrophils Absolute Auto 6.1 x10*3/uL (2.0-8.3); Neutrophils Percent Auto 69.1 % (45-73); Platelet Count 243 X10*3/uL (160-400); Red Blood Count 3.24 X10*6/uL (4.60-5.80); Red Cell Distribution Width 15.2 % (11.0-16.0); White Blood Count 8.8 X10*3/uL (4.8-10.8)
[2024-07-30 14:43] LABS: Anion Gap 14 (12-20); Blood Urea Nitrogen 64 mg/dL (9-16); Calcium 9.4 mg/dL (8.4-10.2); Carbon Dioxide 21 mmol/L (22-29); Chloride 111 mmol/L (96-108); Glucose Random 268 mg/dL (60-115); Potassium 4.9 mmol/L (3.3-5.1); Sodium 141 mmol/L (135-145)
[2024-07-30 15:20] LABS: Estimated Glomerular Filt Rate 9
[2024-07-30 15:31] LABS: Prostate Specific Antigen 1.32 ng/mL (<0.05-4.0)
[2024-08-03 16:04] LABS: Testosterone, Total 74 ng/dL (250-1100)
== END 2024-07-30 10:55 | disposition home or self-care (01) ==
LOC: HO.10HDL 10:54
PROVIDERS: Nurse Practitioner Family; Visit Provider Urology
DX: Z12.5 Encounter for screening for malignant neoplasm of prostate (principal); C61 Malignant neoplasm of prostate; E87.5 Hyperkalemia; N18.5 Chronic kidney disease, stage 5; D63.1 Anemia in chronic kidney disease
CPT/HCPCS: 36415; 80048; 84153; 84403; 85025

== ENCOUNTER 2024-08-07 10:22 | Outpatient (AMB) | payer OTHER, SELFPAY ==
--- NOTE | 2024-08-07 10:33 | MHC.OFFVIS ---
Intake Visit Reasons: Prolia/6m/labs(set)PA Set Intake Note: Patient is Present for Follow Up Prolia Injection/PSA/Testo follow up Urology Medication: Terazosin Antibiotic Allergies:None Blood Thinners: Plavix(Clopidogrel), Aspirin Recent LABS: 07/30/24 PSA: 132 TESTOSTERONE: 74 Patient reports he had a heart attack in February this year Quality Control Expert Required: No Accompanied by: Self / Same As Patient Allergies No Known Allergies [No Known Allergies*] Allergy (Verified 08/07/24 10:47) HPI Comments Details: Jorge is a pleasant male. He is a patient of . 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 Initial diagnosis with Dr. Chakraborty Initial therapy active surveillance Prior therapies - was on GnRH for extended period Laboratories - 03/30 PSA < 0.1, T 4, 07/30 <0.1, 12/01 <0.1 T 42, 05/31 0.4 T 56, 12/02 1.4 T 88, 08/01 1.6 84, 01/31 3.2 134, 08/02 1.3 74 Current therapy includes Prolia every 6 months with Citracal Associated conditions - diabetes Imaging - 06/30 DEXA scan with osteoporosis secondary to hormone usage - 07/02 DEXA severe osteoporosis secondary to hormone therapy Did have broken right arm 2020 Lower urinary tract symptoms Urinary urgency Urinary frequency Responds well to tamsulosin [facility] Medical History (Updated 08/07/24 @ 10:51 by ARTIE Lance) Heart attack Atherosclerotic cardiovascular disease CKD (chronic kidney disease) stage 5, GFR less than 15 ml/min Other and unspecified hyperlipidemia Essential hypertension Edema of both feet Prostate cancer Gout Hyperlipidemia Diabetes Surgical History History of hernia surgery Family History Mother No problems noted. Father No problems noted. Social History (Reviewed 08/07/24 @ 10:48 by OG Lance Housing: House Alcohol intake: never Patient Tobacco Use Status: Never used Tobacco e-Cigarette/Vaping Use: Never Used Second Hand Smoke Exposure: No service: No Current occupational status: retired Current occupation: rt handed Cognitive needs: No Hearing needs: No Vision needs: Yes (Glasses) Review of Systems Const Denies chills and Denies fever(s) Card Reports no additional complaints and Denies syncope Resp Denies cough GI Denies abdominal pain and Denies heartburn Reports as per HPI and Denies change in libido Neuro Denies syncope Psych Denies change in libido Endo Denies change in libido Physical Exam Const General: cooperative, healthy appearing, comfortable and no acute distress Orientation/consciousness: patient oriented x3 HEENT Face and sinus: Yes normal facial exam Mouth: moist mucous membranes Neck Neck: Yes normal visual inspection, Yes full ROM and Yes trachea midline Chest Chest palpation & inspection: normal inspection of the chest Resp Effort & Inspection: normal respiratory effort, able to speak in complete sentences and no respiratory distress GI Inspection: Yes normal to inspection Back/Spine/Pelvis Cervical Spine: normal cervical lordosis Thoracic/Lumbar Spine: thoracic and lumbar spine normal to inspection Skin General skin exam: no rashes or lesions noted Neuro General: patient oriented x3, gait normal, tone normal and moves all extremities Extrem General: Yes normal to inspection and Yes capillary refill normal Office Meds Prolia 60 mg/mL subcutaneous syringe Performing Provider: Fuad Card MD Performing Location: [facility] [place] [facility] Administered by: Marcellus Méndez RN on 08/07/24 11:07 Dose Route Admin Location Dispensed Lot Number Expiration Date [facility] Central M[employer] Specialist 60 mg subcut left upper arm 1 mL [id number] 08/09/26 08684-416-83 AMGEN Comments: patient consented for prolia injection and tolerated well. Assessment & Plan Assessment & Plan (1) Osteoporosis due to androgen therapy: Code(s): M81.8 - Other osteoporosis without current pathological fracture; T38.7X5A - Adverse effect of androgens and anabolic congeners, initial encounter Category: Medical Plan Six-month follow-up Orders: Orders AMB Denosumab Injection Practice Supplied Today M81.8 - Other osteoporosis without current pathological fracture, T38.7X5A - Adverse effect of androgens and anabolic congeners, initial encounter Prostate Specific Antigen 6 Months C61 - Malignant neoplasm of prostate Testosterone, Total 6 Months C61 - Malignant neoplasm of prostate Patient Instructions: Imaging studies, laboratory and physical exam results were discussed and reviewed in detail. No major barriers to patient understanding were identified. An opportunity to ask questions regarding the treatment plan was provided. All questions were answered. The patient expressed understanding and agreement with the above treatment plan. The patient is aware they should contact our office by phone for worsening of their current condition or the appearance of new urologic symptoms. Compliance is encouraged with any medications and followup testing that is ordered. It is a privilege to participate in the urologic care of your patient. If you have any questions or concerns regarding treatment for the above conditions, or other urologic issues, please do not hesitate to contact me. The office telephone contact is [phone]. This note is constructed using voice recognition software. While every effort has been made to ensure accuracy advertising rep errors may have been included. Yours sincerely, Dr Fuad Card MD, [facility] - Urology Providers of Expert, Compassionate Care for the Genitourinary System Coding Level of Care Code Est Pt Level 3 (91469) Diagnoses Osteoporosis due to androgen therapy M81.8; T38.7X5A
== END 2024-08-07 11:27 | disposition home or self-care (01) ==
LOC: HO.HUSH 10:23
PROVIDERS: PCP Internal Medicine; Visit Provider Urology
DX: M81.8 Other osteoporosis without current pathological fracture (principal); T38.7X5A Adverse effect of androgens and anabolic congeners, initial encounter
CPT/HCPCS: 99213

== ENCOUNTER → 2024-08-07 10:22 | Outpatient (BNVA) | payer OTHER, SELFPAY | PROVIDERS: PCP Internal Medicine; Visit Provider Urology | DX: M81.8 Other osteoporosis without current pathological fracture (principal); T38.7X5A Adverse effect of androgens and anabolic congeners, initial encounter; C61 Malignant neoplasm of prostate | CPT/HCPCS: 96372; J0897 ==

== ENCOUNTER 2024-08-28 11:54 | Outpatient (REF) | payer OTHER, SELFPAY ==
[2024-08-28 14:26] LABS: Parathyroid Hormone Intact 629.5 pg/mL (8.7-77.1)
== END 2024-08-28 11:55 | disposition home or self-care (01) ==
LOC: HO.10HDL 11:54
PROVIDERS: Visit Provider Internal Medicine Hypertension Specialist
DX: N18.5 Chronic kidney disease, stage 5 (principal); D63.1 Anemia in chronic kidney disease
CPT/HCPCS: 36415; 83970

== ENCOUNTER 2024-09-03 11:46 | Outpatient (AMB) | payer OTHER, SELFPAY ==
[2024-09-03 11:53] VITALS: BP 160/52; PULSE 77; O2SAT 98; BMI 23.8
--- NOTE | 2024-09-03 11:53 | HO.NEPHOV ---
Vital Signs 09/03/24 11:53 Height 5 ft 7 in Weight 152 lb BMI 23.8 BP 160/52 H Blood Pressure Location Rt brachial Position Sitting Pulse 77 Pulse Source Pulse Oximeter Pulse Oximetry (%) 98 Oxygen Delivery Method Room Air Intake Visit Reasons: Hypertension Environmental Systems Coordinator Required: No Accompanied by: Self / Same As Patient Allergies No Known Allergies [No Known Allergies*] Allergy (Verified 09/03/24 11:55) Medication List - Last Reconciled 09/03/24 by Nikolai Barros MD allopurinol 100 mg PO DAILY amlodipine 5 mg PO DAILY aspirin 81 mg PO DAILY atorvastatin 80 mg PO DAILY betamethasone dipropionate 0.05% 1 appl topical BID PRN blood sugar diagnostic (FreeStyle Test strips) As directed twice a day blood-glucose meter As directed calcitriol 0.25 mcg PO .1xw carvedilol 6.25 mg PO BID 90 days clopidogrel 75 mg PO DAILY 90 days diclofenac sodium 1% (Arthritis Pain (diclofenac)) 4 grams topical QID ferrous fumarate (Ferretts) 325 mg PO BID insulin glargine (Lantus Solostar U-100 Insulin) 15 units (0.15 mL) subcut QPM 90 days lancets As directed levothyroxine (Synthroid) 25 mcg PO DAILY mupirocin 2% 1 appl topical BID pen needle, diabetic As directed 1x daily sitagliptin phosphate (Januvia) 100 mg PO DAILY sodium bicarbonate 650 mg PO BID sodium polystyrene sulfonate 15 grams PO .2w spironolactone 25 mg PO DAILY terazosin 5 mg PO BEDTIME 90 days HPI Comments Details: Elderly man with a history of longstanding diabetes mellitus hypertension with CKD. 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 Serum creatinine is between 4 and 5.0 mg/dL. Recently was hospitalized at [facility] for acute pulmonary edema and acute [place]. He was conservatively managed. History of for further follow-up regarding CKD. He has been receiving Epogen injections for the anemia. 04/05/2024. Overall he is feeling better. No specific complaints today. Lokelma has been denied by his insurance. 05/03/2024 No shortness of breath. No nausea or vomiting. He took Kayexalate and had upset stomach therefore he stopped taking it. [facility] Medical History (Updated 08/07/24 @ 10:51 by ARTIE Lance) Heart attack Atherosclerotic cardiovascular disease CKD (chronic kidney disease) stage 5, GFR less than 15 ml/min Other and unspecified hyperlipidemia Essential hypertension Edema of both feet Prostate cancer Gout Hyperlipidemia Diabetes Surgical History History of hernia surgery Family History Mother No problems noted. Father No problems noted. Social History Housing: House Alcohol intake: never Patient Tobacco Use Status: Never used Tobacco e-Cigarette/Vaping Use: Never Used Second Hand Smoke Exposure: No service: No Current occupational status: retired Current occupation: rt handed Cognitive needs: No Hearing needs: No Vision needs: Yes (Glasses) Physical Exam Vital Signs: Last Vital Signs Pulse 77 09/03/24 11:53 BP 160/52 H 09/03/24 11:53 Pulse Ox 98 09/03/24 11:53 Oxygen Delivery Method Room Air 09/03/24 11:53 BMI result Body Mass Index 23.8 Office Meds epoetin kelley-epbx 20,000 unit/mL injection solution Performing Provider: Nikolai Barros MD [place] [facility] [place] [facility] Administered by: Nikolai Barros MD on 09/03/24 12:06 Dose Route Admin Location Dispensed Lot Number Expiration Date [facility] Real Estate Appraiser Supervisor 20,000 unit subcut right arm 1 mL [id number] 03/09/26 6189-9552-53 [employer] Results Reviewed Nephrology Results: Hgb 10.0 g/dl (14.0-18.0) L 07/30/24 WBC 8.8 X10*3/uL (4.8-10.8) 07/30/24 Plt Count 243 X10*3/uL (160-400) 07/30/24 Sodium 141 mmol/L (135-145) 07/30/24 Potassium 4.9 mmol/L (3.3-5.1) 07/30/24 Chloride 111 mmol/L (96-108) H 07/30/24 Carbon Dioxide 21 mmol/L (22-29) L 07/30/24 BUN 64 mg/dL (9-16) H 07/30/24 Creatinine 5.87 mg/dL (0.5-1.4) H* 07/30/24 Calcium 9.4 mg/dL (8.4-10.2) 07/30/24 PTH Intact 629.5 pg/mL (8.7-77.1) H 08/28/24 Assessment & Plan Assessment & Plan (1) CKD (chronic kidney disease) stage 5, GFR less than 15 ml/min: Code(s): N18.5 - Chronic kidney disease, stage 5 Category: Medical Plan: CKD 5. No signs or symptoms of uremia. He is approaching end stage renal disease. No indication for dialysis YET Seen by dialysis educator for [facility] Seen by Dr. Chester for insertion of Tenckhoff catheter (2) Anemia due to chronic kidney disease: Code(s): N18.9 - Chronic kidney disease, unspecified; D63.1 - Anemia in chronic kidney disease Category: Medical Qualifiers: Chronic kidney disease stage: stage 5, not on chronic dialysis Qualified Code(s): N18.5 - Chronic kidney disease, stage 5; D63.1 - Anemia in chronic kidney disease Plan: Anemia due to CKD. Hemoglobin is low. His iron levels acceptable Administered Retacrit 78355 units subcutaneously tolerated (3) Essential hypertension: Code(s): I10 - Essential (primary) hypertension Category: Medical Plan: Hypertension blood pressure is acceptable Stay on low-sodium diet (4) Metabolic acidosis: Code(s): E87.20 - Acidosis, unspecified Category: Medical Plan: Sodium bicarbonate 650 mg p.o. twice a day (5) Type 2 diabetes mellitus with unspecified complications: Code(s): E11.8 - Type 2 diabetes mellitus with unspecified complications Category: Medical Plan: Goal is to maintain A1c less than 7%. Unable to add SGLT2 inhibitors like Jardiance due to hyperkalemia. (6) Hyperkalemia: Code(s): E87.5 - Hyperkalemia Category: Medical Plan: Primarily due to the use of spironolactone in setting of advanced kidney disease. Yuliya was denied I prescribed Kayexalate. Encouraged him to stay on low-potassium diet. The potassium stays persistently elevated we might have to discontinue spironolactone. Kayexalate twice a week (7) Hyperparathyroidism: Code(s): E21.3 - Hyperparathyroidism, unspecified Category: Medical Plan: Ca is high Decrease Calcitriol to Once a week DC Calcium tabs Plan Of note blood sugar seems suboptimal recent blood sugar was 460 with a A1c of 11.5% I have discussed importance of tight control blood sugar to slow the progression of renal disease. Orders: Orders Basic Metabolic Panel 4 Weeks N18.5 - Chronic kidney disease, stage 5 Parathyroid Hormone Intact 4 Weeks N18.5 - Chronic kidney disease, stage 5 AMB Epoetin Injection Practice Supplied Today N40.1 - Benign prostatic hyperplasia with lower urinary tract symptoms Complete Blood Count no Diff 4 Weeks N18.5 - Chronic kidney disease, stage 5 Coding Level of Care Code Est Pt Level 4 (57461) Diagnoses CKD (chronic kidney disease) stage 5, GFR less than 15 ml/min N18.5 Anemia due to stage 5 chronic kidney disease, not on chronic dialysis N18.5; D63.1 Chronic kidney disease stage: stage 5, not on chronic dialysis Essential hypertension I10 Metabolic acidosis E87.20 Type 2 diabetes mellitus with unspecified complications E11.8 Hyperkalemia E87.5 Hyperparathyroidism E21.3
== END 2024-09-03 12:12 | disposition home or self-care (01) ==
PROVIDERS: PCP Internal Medicine; Visit Provider Internal Medicine Hypertension Specialist
DX: I12.0 Hypertensive chronic kidney disease with stage 5 chronic kidney disease or end stage renal disease (principal); E11.22 Type 2 diabetes mellitus with diabetic chronic kidney disease; N18.5 Chronic kidney disease, stage 5; D63.1 Anemia in chronic kidney disease; E87.20 Acidosis, unspecified; E87.5 Hyperkalemia; E21.3 Hyperparathyroidism, unspecified; N40.1 Benign prostatic hyperplasia with lower urinary tract symptoms
CPT/HCPCS: 99214

== ENCOUNTER → 2024-09-03 11:46 | Outpatient (BNVA) | payer OTHER, SELFPAY | PROVIDERS: PCP Internal Medicine; Visit Provider Internal Medicine Hypertension Specialist | DX: I12.0 Hypertensive chronic kidney disease with stage 5 chronic kidney disease or end stage renal disease (principal); E11.22 Type 2 diabetes mellitus with diabetic chronic kidney disease; N18.5 Chronic kidney disease, stage 5; D63.1 Anemia in chronic kidney disease; E87.20 Acidosis, unspecified; E87.5 Hyperkalemia; E21.3 Hyperparathyroidism, unspecified | CPT/HCPCS: 96372; Q5106 ==

== ENCOUNTER 2024-09-25 12:14 | Outpatient (REF) | payer OTHER, SELFPAY ==
[2024-09-25 12:38] LABS: Hematocrit 28.1 % (42.0-52.0); Hemoglobin 8.7 g/dl (14.0-18.0); Mean Corpuscular Hemoglobin 30.5 pg (27.0-33.0); Mean Corpuscular Volume 98.6 fL (80.0-98.0); Mean Platelet Volume 9.9 fL (9.4-12.4); Platelet Count 224 X10*3/uL (160-400); Red Blood Count 2.85 X10*6/uL (4.60-5.80); Red Cell Distribution Width 16.8 % (11.0-16.0); White Blood Count 6.6 X10*3/uL (4.8-10.8)
[2024-09-25 13:08] LABS: Parathyroid Hormone Intact 677.8 pg/mL (8.7-77.1)
[2024-09-25 13:17] LABS: Anion Gap 14 (12-20); Blood Urea Nitrogen 51 mg/dL (9-16); Carbon Dioxide 15 mmol/L (22-29); Chloride 116 mmol/L (96-108); Estimated Glomerular Filt Rate 12; Potassium 6.2 mmol/L (3.3-5.1); Sodium 139 mmol/L (135-145)
[2024-09-25 13:18] LABS: Calcium 7.2 mg/dL (8.4-10.2); Glucose Random 258 mg/dL (60-115)
== END 2024-09-25 12:15 | disposition home or self-care (01) ==
LOC: HO.LAB 12:14
PROVIDERS: PCP Internal Medicine Hypertension Specialist; Visit Provider Internal Medicine Hypertension Specialist
DX: N18.5 Chronic kidney disease, stage 5 (principal)
CPT/HCPCS: 36415; 80048; 83970; 85027

== ENCOUNTER 2024-10-01 10:16 | Outpatient (AMB) | payer OTHER, SELFPAY ==
[2024-10-01 10:18] VITALS: BP 142/52; PULSE 77; O2SAT 96; BMI 24.1
--- NOTE | 2024-10-01 10:18 | HO.NEPHOV_ITS ---
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 Serum creatinine is between 4 and 5.0 mg/dL. Recently was hospitalized at [facility] for acute pulmonary edema and acute [place]. He was conservatively managed. History of for further follow-up regarding CKD. He has been receiving Epogen injections for the anemia. 04/05/2024. Overall he is feeling better. No specific complaints today. Lokelma has been denied by his insurance. 05/03/2024 No shortness of breath. No nausea or vomiting. He took Kayexalate and had upset stomach therefore he stopped taking it. 10/01/24 K was high since he missed kayexalate CAlled and asked to take daily Not taking calcitriol [facility] Medical History (Updated 08/07/24 @ 10:51 by ARTIE Lance) Heart attack Atherosclerotic cardiovascular disease CKD (chronic kidney disease) stage 5, GFR less than 15 ml/min Other and unspecified hyperlipidemia Essential hypertension Edema of both feet Prostate cancer Gout Hyperlipidemia Diabetes Surgical History History of hernia surgery Family History Mother No problems noted. Father No problems noted. Social History Housing: House Alcohol intake: never Patient Tobacco Use Status: Never used Tobacco e-Cigarette/Vaping Use: Never Used Second Hand Smoke Exposure: No service: No Current occupational status: retired Current occupation: rt handed Cognitive needs: No Hearing needs: No Vision needs: Yes (Glasses) Physical Exam Vital Signs: Last Vital Signs Pulse 77 10/01/24 10:18 BP 142/52 H 10/01/24 10:18 Pulse Ox 96 10/01/24 10:18 Oxygen Delivery Method Room Air 10/01/24 10:18 BMI result Body Mass Index 24.1 Comfortable Neck supple no JVD. Lungs entry equal no rales. Heart S1-S2 heard no gallop or rub. Abdomen soft nontender. Neuro alert awake oriented. No asterixis. Extremities no edema. Office Meds epoetin kelley-epbx 20,000 unit/mL injection solution Performing Provider: Nikolai Barros MD Performing Location: [facility] [place] [facility] Administered by: Nikolai Barros MD on 10/01/24 10:34 Dose Route Admin Location Dispensed Lot Number Expiration Date [facility] Nuclear Powerplant Mechanic Helper 20,000 unit subcut left arm 1 mL [id number] 03/09/26 3861-2740-74 [employer] Results Reviewed Nephrology Results: Hgb 8.7 g/dl (14.0-18.0) L 09/25/24 WBC 6.6 X10*3/uL (4.8-10.8) 09/25/24 Plt Count 224 X10*3/uL (160-400) 09/25/24 Sodium 139 mmol/L (135-145) 09/25/24 Potassium 6.2 mmol/L (3.3-5.1) H* 09/25/24 Chloride 116 mmol/L (96-108) H 09/25/24 Carbon Dioxide 15 mmol/L (22-29) L 09/25/24 BUN 51 mg/dL (9-16) H 09/25/24 Creatinine 4.80 mg/dL (0.5-1.4) H* 09/25/24 Calcium 7.2 mg/dL (8.4-10.2) L 09/25/24 PTH Intact 677.8 pg/mL (8.7-77.1) H 09/25/24 Assessment & Plan Assessment & Plan (1) CKD (chronic kidney disease) stage 5, GFR less than 15 ml/min: Code(s): N18.5 - Chronic kidney disease, stage 5 Category: Medical Plan: CKD 5. No signs or symptoms of uremia. He is approaching end stage renal disease. No indication for dialysis YET Seen by dialysis educator for [facility] Seen by Dr. Chester for insertion of Tenckhoff catheter (2) Anemia due to chronic kidney disease: Code(s): N18.9 - Chronic kidney disease, unspecified; D63.1 - Anemia in chronic kidney disease Category: Medical Qualifiers: Chronic kidney disease stage: stage 5, not on chronic dialysis Qualified Code(s): N18.5 - Chronic kidney disease, stage 5; D63.1 - Anemia in chronic kidney disease Plan: Anemia due to CKD. Hemoglobin is low. His iron levels acceptable Administered Retacrit 04271 units subcutaneously tolerated (3) Essential hypertension: Code(s): I10 - Essential (primary) hypertension Category: Medical Plan: Hypertension blood pressure is acceptable Stay on low-sodium diet (4) Metabolic acidosis: Code(s): E87.20 - Acidosis, unspecified Category: Medical Plan: Sodium bicarbonate 650 mg p.o. twice a day (5) Type 2 diabetes mellitus with unspecified complications: Code(s): E11.8 - Type 2 diabetes mellitus with unspecified complications Category: Medical Plan: Goal is to maintain A1c less than 7%. Unable to add SGLT2 inhibitors like Jardiance due to hyperkalemia. (6) Hyperkalemia: Code(s): E87.5 - Hyperkalemia Category: Medical Plan: Primarily due to the use of spironolactone in setting of advanced kidney disease. Lokelma was denied I prescribed Kayexalate. Encouraged him to stay on low-potassium diet. The potassium stays persistently elevated we might have to discontinue spironolactone. Kayexalate daily (7) Hyperparathyroidism: Code(s): E21.3 - Hyperparathyroidism, unspecified Category: Medical Plan: Keep Calcitriol daily DC Calcium tabs Watch Ca Plan Of note blood sugar seems suboptimal recent blood sugar was 460 with a A1c of 11.5% I have discussed importance of tight control blood sugar to slow the progression of renal disease. Orders: Orders IRON PROFILE Today D63.1 - Anemia in chronic kidney disease, N18.5 - Chronic kidney disease, stage 5 Potassium Today N18.5 - Chronic kidney disease, stage 5 Ferritin Today D63.1 - Anemia in chronic kidney disease, N18.5 - Chronic kidney disease, stage 5 Complete Blood Count no Diff Today D63.1 - Anemia in chronic kidney disease, N18.5 - Chronic kidney disease, stage 5 AMB Epoetin Injection Practice Supplied Today N40.1 - Benign prostatic hyperplasia with lower urinary tract symptoms Medications: Changed From calcitriol Every Tamie 0.25 mcg PO .1xw 90 caps 0RF To calcitriol Every Tamie 0.25 mcg PO DAILY 90 caps 0RF Coding Level of Care Code Est Pt Level 4 (80717) Diagnoses CKD (chronic kidney disease) stage 5, GFR less than 15 ml/min N18.5 Anemia due to stage 5 chronic kidney disease, not on chronic dialysis N18.5; D63.1 Chronic kidney disease stage: stage 5, not on chronic dialysis Essential hypertension I10 Metabolic acidosis E87.20 Type 2 diabetes mellitus with unspecified complications E11.8 Hyperkalemia E87.5 Hyperparathyroidism E21.3
== END 2024-10-01 10:36 | disposition home or self-care (01) ==
PROVIDERS: PCP Internal Medicine; Visit Provider Nurse Practitioner Family
DX: N40.1 Benign prostatic hyperplasia with lower urinary tract symptoms (principal)

== ENCOUNTER 2024-10-18 01:59 | Emergency (ER) | payer OTHER, SELFPAY ==
[2024-10-18] VITALS (10 sets, daily range): BP systolic 118–140; BP diastolic 48–63; PULSE 91–121; RESP 23–39; TEMP -17.7–36.6; O2SAT 87–95; BMI 24.1
--- NOTE | 2024-10-18 | ECG_ITS ---
Test Reason : DYSPNEA Blood Pressure : */* mmHG Vent. Rate : 93 BPM Atrial Rate : 93 BPM P-R Int : 170 ms QRS Dur : 90 ms QT Int : 388 ms P-R-T Axes : 55 56 202 degrees QTcB Int : 482 ms Normal sinus rhythm Cannot rule out Anterior infarct (cited on or before 21-Feb-2024) ST & T wave abnormality, consider lateral ischemia Abnormal ECG When compared with ECG of 21-Feb-2024 11:07, No significant changes seen Referred By: Generic ED Physician Electronically Signed By: KELI BAIRD
--- NOTE | ~2024-10-18 | XR_ITS ---
CLINICAL HISTORY: Dyspnea 1 view chest x-ray Comparison: CR/WI/SR - XR CHEST 1V - 02/21/24 10:25 EDT Findings: The heart is enlarged. Atherosclerotic vascular disease of aortic arch. Bilateral interstitial and especially perihilar airspace opacities. Blunting of right costophrenic angle. No significant pneumothorax. Osseous structures appear stable. IMPRESSION: 1. Findings suggestive of congestive heart failure with small right effusion. Superimposed pneumonia not excluded. This document has been electronically signed by: Rosina Rosenberg MD on 10/18/2024 03:23:06
[2024-10-18 02:34] LABS: MANUAL DIFF FLAG NO
[2024-10-18 02:35] LABS: Basophils Percent Auto 0.1 % (0-2); Hematocrit 29.2 % (42.0-52.0); Imm Gran Abs Auto 0.05 X10*3/uL (0.00-0.03); Imm Gran Pct Auto 0.5 % (0.0-0.4); Lymphocytes Absolute Auto 0.7 X10*3/uL (1.2-4.9); Lymphocytes Percent Auto 6.6 % (20-40); Mean Corpuscular HGB Conc 30.8 g/dl (31.0-36.0); Mean Corpuscular Hemoglobin 30.7 pg (27.0-33.0); Mean Corpuscular Volume 99.7 fL (80.0-98.0); Mean Platelet Volume 11.3 fL (9.4-12.4); Monocytes Absolute Auto 0.4 X10*3/uL (0.1-1.2); Monocytes Percent Auto 3.4 % (2-11); Neutrophils Absolute Auto 9.7 x10*3/uL (2.0-8.3); Neutrophils Percent Auto 89.4 % (45-73); Platelet Count 292 X10*3/uL (160-400); Red Blood Count 2.93 X10*6/uL (4.60-5.80); Red Cell Distribution Width 16.4 % (11.0-16.0); White Blood Count 10.9 X10*3/uL (4.8-10.8)
[2024-10-18 02:48] LABS: IDNOW Serial# 58CA691E; Strep A Nucleic Acid Negative (Negative)
[2024-10-18 02:50] LABS: Glucose, Whole Blood 594 mg/dL (60-115)
[2024-10-18 02:56] LABS: Lactic Acid 3.4 mmol/L (0.5-2.0)
--- NOTE | 2024-10-18 02:56 | ED.GENADULT ---
HPI - General Adult General Chief complaint: Dyspnea Stated complaint: SOB Time Seen by Provider: 10/18/24 02:53 Source: patient, family, EMS and old records reviewed Mode of arrival: EMS Limitations: no limitations History of Present Illness ED Provider: DR. Feliciano HPI narrative: 79-year-old male brought in by EMS for evaluation after having cough, difficulty breathing, and found to be hypoxic by EMS at 87 % room air, patient's symptoms started with sore throat the now he has been coughing with phlegm, positive subjective fever, patient also been having dyspnea on exertion, PND, no lower extremity swelling or edema. Related Data Home Medications ?Medication ?Instructions ?Recorded ?Confirmed lancets 28 gauge #100 ea 09/30/20 09/03/24 blood-glucose meter #1 ea 11/17/20 09/03/24 aspirin 81 mg tablet,delayed 81 mg PO DAILY 03/15/24 09/03/24 release spironolactone 25 mg tablet 25 mg PO DAILY 03/15/24 09/03/24 sodium polystyrene sulfonate 15 15 g PO .2w 07/05/24 09/03/24 gram oral powder packet Previous Rx's ?Medication ?Instructions ?Recorded blood sugar diagnostic (FreeStyle #100 ea 07/25/20 Test strips) betamethasone dipropionate 0.05 % 1 appl topical BID PRN skin 11/17/20 topical cream irritation #15 grams amlodipine 5 mg tablet 5 mg PO DAILY #90 tabs 06/28/24 atorvastatin 80 mg tablet 80 mg PO DAILY #90 tabs 06/28/24 clopidogrel 75 mg tablet 75 mg PO DAILY 90 days #90 tabs 06/28/24 carvedilol 6.25 mg tablet 6.25 mg PO BID 90 days #180 tabs 06/29/24 sodium bicarbonate 650 mg tablet 650 mg PO BID #60 tabs 07/18/24 allopurinol 100 mg tablet 100 mg PO DAILY #90 tabs 07/26/24 levothyroxine 25 mcg tablet 25 mcg PO DAILY #90 tabs 07/31/24 (Synthroid) diclofenac sodium 1 % topical gel 4 g topical QID #100 grams 08/05/24 (Arthritis Pain (diclofenac)) ferrous fumarate 325 mg (106 mg 325 mg PO BID #60 tabs 08/05/24 iron) tablet (Ferretts) insulin glargine 100 unit/mL (3 15 unit (0.15 mL) subcut QPM 90 08/05/24 mL) subcutaneous pen (Lantus days #13.5 mL Solostar U-100 Insulin) mupirocin 2 % topical ointment 1 appl topical BID #15 grams 08/05/24 pen needle, diabetic 29 gauge x #100 ea 08/05/24 1/2 sitagliptin phosphate 100 mg 100 mg PO DAILY #90 tabs 08/05/24 tablet (Januvia) terazosin 5 mg capsule 5 mg PO BEDTIME 90 days #90 caps 09/18/24 calcitriol 0.25 mcg capsule 0.25 mcg PO DAILY #90 caps 10/01/24 Allergies Allergy/AdvReac Type Severity Reaction Status Date / Time No Known Allergies Allergy Verified 10/18/24 02:07 [No Known Allergies*] Review of Systems Review of Systems: All other systems are reviewed and are negative Constitutional: Reports as per HPI and Reports no additional constitutional complaints Eyes: Reports as per HPI and Reports no additional eye complaints Reports system reviewed and no additional complaints, except as documented Cardiovascular: Reports as per HPI and Reports no additional cardiovascular complaints Respiratory: Reports as per HPI and Reports no additional respiratory complaints Gastrointestinal: Reports as per HPI and Reports no additional gastrointestinal complaints Genitourinary: Reports no additional female genitourinary complaints Musculoskeletal: Reports no additional musculoskeletal complaints Skin/Breast: Reports system reviewed and no additional complaints, except as docu Psychiatric: Reports no additional psychiatric complaints Endocrine: Reports no additional endocrine complaints Hematologic/Lymphatic: Reports no additional hematologic/lymphatic complaints Allergic/Immunologic: Reports no additional allergic/immunologic complaints Reports system reviewed and no additional complaints, except as documented and Reports Abnormal speech present FORMERLY [facility], [facility] Past Medical History Medical History Heart attack Atherosclerotic cardiovascular disease CKD (chronic kidney disease) stage 5, GFR less than 15 ml/min Other and unspecified hyperlipidemia Essential hypertension Edema of both feet Prostate cancer Gout Hyperlipidemia Diabetes Surgical History History of hernia surgery Family History Family History Mother No problems noted. Father No problems noted. Social History Social History Housing: House Alcohol intake: never Patient Tobacco Use Status: Never used Tobacco Smoked in Last 30 Days: No e-Cigarette/Vaping Use: Never Used Second Hand Smoke Exposure: No Use of substances other than those prescribed or required for medical reasons: No Advance Directives: No Advance Directives Information Provided: Yes service: No Current occupational status: retired Current occupation: rt handed Cognitive needs: No Hearing needs: No Vision needs: Yes (Glasses) Physical Exam ED Vital Signs: Vital Signs - 24 hr 10/18/24 02:06 10/18/24 02:28 10/18/24 03:24 Temperature 97.8 F Pulse Rate 96 92 Pulse Rate [Monitor] 94 Respiratory Rate 33 H 39 H 35 H Blood Pressure 137/63 129/58 L Pulse Oximetry 87 L 91 L Oxygen Delivery Method Room Air Nasal Cannula Oxygen Flow Rate 4 BMI result Body Mass Index 24.1 Vital signs have been reviewed and appear to be correct. Blood pressure elevated. Heart rate normal. Respiratory rate normal. Temperature normal. Hypoxic on room air. Appearance: Alert. Oriented X3. No acute distress. Head: Normal external exam. Normocephalic. Atraumatic. No Oneill signs noted. No raccoon eyes noted Eyes: PERRLA. EOMI. Conjunctiva and sclera normal. Eyelids normal. ENT: TM's Normal. Pharynx normal. Uvula midline. Moist mucous membranes. No trismus noted. No drooling noted. No muffled voice noted. Neck: Normal inspection. Neck supple. FROM. No adenopathy. Thyroid Normal. No meningeal signs. No neck mass noted. CVS: Normal heart rate and rhythm. Heart sound normal. No murmurs noted. Pulses normal throughout. Respiratory: No respiratory distress. Painless inspiration. Breath sounds normal. No wheezes/rales/rhonchi noted. Chest nontender. No accessory muscle usage noted or decreased air movement noted. Abdomen: Soft and nontender. Bowel sounds normal in all 4 quadrants. No distention noted. No organomegaly noted. No visible injury noted. Back: No CVA tenderness. Full range of motion noted. Skin: Skin warm and dry. Normal skin color. Normal skin turgor. No rashes/lesions/lacerations noted. Extremities: No lower extremity edema. Extremities exhibit normal range of motion. Extremities nontender. Neuro: Oriented X 3. Cranial nerve exam: II-XII are grossly intact No motor deficit. No sensory deficit. Reflexes normal. Course Reevaluation(s) Reevaluation #1: 79-year-old male brought in by ambulance for difficulty breathing and hypoxia. 1. Congestive heart failure with hypoxia. 2. DKA with low bicarb and acidosis will start the patient on insulin drip and gentle hydration with Lasix PRN. 3. Non STEMI will administer aspirin and heparin drip. 4. COVID-19 infection 5. No ICU bed is available in our hospital, No bed is available at [facility] either and the transfer was declined, patient will be transferred to [facility] accepted by Dr. Winter. Time: 03:32 Medications Administered Generic Name Dose Route Start Last Admin Trade Name Freq PRN Reason Stop Dose Admin Doxycycline Hyclate 100 mg/ 250 mls @ 166.67 mls/hr 10/18/24 02:56 10/18/24 03:15 Sodium Chloride IV 10/18/24 04:25 166.67 mls/hr ONCE ONE Administration Sodium Chloride 1,000 mls @ 250 mls/hr 10/18/24 02:56 10/18/24 03:22 Ns IV 10/18/24 06:55 250 mls/hr .Q4H ONE Administration Discontinued Medications Generic Name Dose Route Start Last Admin Trade Name Freq PRN Reason Stop Dose Admin Ceftriaxone Sodium 1 gm 10/18/24 02:56 10/18/24 03:09 Ceftriaxone Sodium 1 Gm Vial IVPUSH 10/18/24 02:57 1 gm ONCE ONE Administration Insulin Human Regular 5 unit 10/18/24 02:56 10/18/24 03:16 Insulin Regular, Human 100 Unit/Ml 10 Ml Vial IVPUSH 10/18/24 02:57 5 unit ONCE ONE Administration Medical Decision Making Differential Diagnosis Differential Diagnoses: The differential diagnosis associated with the presentation includes (Pneumonia, pneumothorax, pleural effusion, congestive heart failure, ACS, sepsis severe anemia, electrolyte derangement, DKA..) Admission/Observation Consideration of admission/observation: Escalation of care including admission/observation considered Lab Data MDM Lab Attestation statement: I reviewed the patient's lab results. 10/18/24 03:38 10/18/24 02:25 Labs: Lab Results 10/18/24 10/18/2425 Range/Units 02:25 02:27 02:44 WBC 10.9 H (4.8-10.8) X10*3/uL RBC 2.93 L (4.60-5.80) X10*6/uL Hgb 9.0 L (14.0-18.0) g/dl Hct 29.2 L (42.0-52.0) % MCV 99.7 H (80.0-98.0) fL MCH 30.7 (27.0-33.0) pg MCHC 30.8 L (31.0-36.0) g/dl RDW 16.4 H (11.0-16.0) % Plt Count 292 D (160-400) X10*3/uL MPV 11.3 (9.4-12.4) fL Immature Gran % (Auto) 0.5 H (0.0-0.4) % Neut % (Auto) 89.4 H (45-73) % Lymph % (Auto) 6.6 L (20-40) % [place] % (Auto) 3.4 (2-11) % Eos % (Auto) 0.0 (0-4) % Baso % (Auto) 0.1 (0-2) % Lymph # (Auto) 0.7 L (1.2-4.9) X10*3/uL [place] # (Auto) 0.4 (0.1-1.2) X10*3/uL Eos # (Auto) 0.0 (0.0-0.4) X10*3/uL Baso # (Auto) 0.0 (0.0-0.2) X10*3/uL Abs Immat Gran (auto) 0.05 H (0.00-0.03) X10*3/uL Absolute Neuts (auto) 9.7 H (2.0-8.3) x10*3/uL Absolute Nucleated RBC 0.000 (0.0-0.012) X10*3/uL Nucleated RBC % (auto) 0.0 (0.0-0.2) /100WBC VBG pH (7.32-7.43) VBG pCO2 mmHg VBG pO2 mmHg VBG HCO3 (22-26) mmol/L VBG O2 Saturation % VBG Base Excess mmol/L Sodium 138 (135-145) mmol/L Potassium 5.9 H (3.3-5.1) mmol/L Chloride 106 (96-108) mmol/L Carbon Dioxide 7 L* D (22-29) mmol/L Anion Gap 31 H (12-20) BUN 84 H (9-16) mg/dL Creatinine 5.89 H* (0.5-1.4) mg/dL Estim Creat Clear Calc 9.3 Estimated GFR 9 POC Glucose 594 H* (60-115) mg/dL Random Glucose 739 H* (60-115) mg/dL Lactic Acid 3.4 H* (0.5-2.0) mmol/L Calcium 7.1 L (8.4-10.2) mg/dL Total Bilirubin 0.7 (0.0-1.0) mg/dL AST 63 H (5-37) U/L ALT 37 (0-40) U/L Alkaline Phosphatase 86 (39-117) U/L Troponin I High Sens 8307.0 H* D (<3.5-35.0) ng/L B-Natriuretic Peptide 3735 H (<100) pg/mL Total Protein 7.6 (6.5-8.0) g/dL Albumin 4.1 (3.5-5.0) g/dL Beta-Hydroxybutyrate 5.88 H (0.02-0.27) mmol/L Influenza Type A (PCR) NEGATIVE (Negative) Influenza Type B (PCR) NEGATIVE (Negative) RSV RNA Qual (PCR) NEGATIVE (Negative) SARS-CoV-2 RNA (RT-PCR) POSITIVE A (Negative) S. pyogenes GrpA ROODLFO Negative (Negative) 10/18/24 10/18/24 Range/Units 02:58 03:38 WBC 10.6 (4.8-10.8) X10*3/uL RBC 2.72 L (4.60-5.80) X10*6/uL Hgb 8.4 L (14.0-18.0) g/dl Hct 27.1 L (42.0-52.0) % MCV 99.6 H (80.0-98.0) fL MCH 30.9 (27.0-33.0) pg MCHC 31.0 (31.0-36.0) g/dl RDW 16.4 H (11.0-16.0) % Plt Count 275 (160-400) X10*3/uL MPV 11.5 (9.4-12.4) fL Immature Gran % (Auto) (0.0-0.4) % Neut % (Auto) (45-73) % Lymph % (Auto) (20-40) % [place] % (Auto) (2-11) % Eos % (Auto) (0-4) % Baso % (Auto) (0-2) % Lymph # (Auto) (1.2-4.9) X10*3/uL [place] # (Auto) (0.1-1.2) X10*3/uL Eos # (Auto) (0.0-0.4) X10*3/uL Baso # (Auto) (0.0-0.2) X10*3/uL Abs Immat Gran (auto) (0.00-0.03) X10*3/uL Absolute Neuts (auto) (2.0-8.3) x10*3/uL Absolute Nucleated RBC 0.000 (0.0-0.012) X10*3/uL Nucleated RBC % (auto) 0.0 (0.0-0.2) /100WBC VBG pH 7.14 L* (7.32-7.43) VBG pCO2 20 mmHg VBG pO2 49 mmHg VBG HCO3 7 L (22-26) mmol/L VBG O2 Saturation 71.0 % VBG Base Excess -19.8 mmol/L Sodium (135-145) mmol/L Potassium (3.3-5.1) mmol/L Chloride (96-108) mmol/L Carbon Dioxide (22-29) mmol/L Anion Gap (12-20) BUN (9-16) mg/dL Creatinine (0.5-1.4) mg/dL Estim Creat Clear Calc Estimated GFR POC Glucose (60-115) mg/dL Random Glucose (60-115) mg/dL Lactic Acid (0.5-2.0) mmol/L Calcium (8.4-10.2) mg/dL Total Bilirubin (0.0-1.0) mg/dL AST (5-37) U/L ALT (0-40) U/L Alkaline Phosphatase (39-117) U/L Troponin I High Sens (<3.5-35.0) ng/L B-Natriuretic Peptide (<100) pg/mL Total Protein (6.5-8.0) g/dL Albumin (3.5-5.0) g/dL Beta-Hydroxybutyrate (0.02-0.27) mmol/L Influenza Type A (PCR) (Negative) Influenza Type B (PCR) (Negative) RSV RNA Qual (PCR) (Negative) SARS-CoV-2 RNA (RT-PCR) (Negative) S. pyogenes GrpA RODOLFO (Negative) Independent Interpretation I performed an independent interpretation of an: EKG (Normal sinus rhythm at 93 beats per minutes, normal intervals, diffuse T-wave inversion) and Plain X-Ray (Chest:1. Findings suggestive of congestive heart failure with small right effusion. Superimposed pneumonia not excluded.) Critical Care Time Critical Care Time Critical Care Time: Yes Total Critical Care Time: 60 Attestation: The patient was critically ill with a high probability of imminent or life-threatening deterioration. I spent greater than 30 minutes of discontinuous time evaluating the patient, delivering critical care at the bedside, discussing evaluating data with consultants. Critical care time does not include time spent performing separately billable procedures or teaching. Time spent performing critical care was 60 minutes. Discharge Plan Discharge Clinical Impression: DKA (diabetic ketoacidosis), Congestive heart failure, Non-ST elevated myocardial infarction (non-STEMI), COVID-19 virus infection Patient Disposition: [facility] Transfer Details: [facility] ED. Prescriptions: No Action (DME) FreeStyle Test Strip See Rx Instructions .ROUTE .MEDSUPPLY Qty: 100 1RF Rx Instructions: As directed twice a day carvedilol 6.25 mg tablet 6.25 mg PO BID 90 Days Qty: 180 3RF sodium bicarbonate 650 mg tablet 650 mg PO BID Qty: 60 2RF allopurinol 100 mg tablet 100 mg PO DAILY Qty: 90 1RF Rx Instructions: please schedule a visit for refills levothyroxine [Synthroid] 25 mcg tablet 25 mcg PO DAILY Qty: 90 0RF diclofenac sodium [Arthritis Pain (diclofenac)] 1 % gel 4 g topical QID Qty: 100 0RF Rx Instructions: apply to single knee, ankle, foot; for foot includes sole/toes/top of foot Ferretts 325 mg (106 mg iron) tablet 325 mg PO BID Qty: 60 3RF insulin glargine [Lantus Solostar U-100 Insulin] 100 unit/mL (3 mL) insulin pen 15 unit subcut QPM 90 Days Qty: 13.5 3RF mupirocin 2 % ointment 1 appl topical BID Qty: 15 0RF (DME) pen needle, diabetic 29 gauge x 1/2 needle See Rx Instructions subcut DAILY Qty: 100 1RF Rx Instructions: As directed 1x daily Januvia 100 mg tablet 100 mg PO DAILY Qty: 90 1RF terazosin 5 mg capsule 5 mg PO BEDTIME 90 Days Qty: 90 1RF (DME) blood-glucose meter Kit See Rx Instructions .ROUTE BID Qty: 1 Rx Instructions: As directed betamethasone dipropionate 0.05 % cream 1 appl topical BID PRN (Reason: skin irritation) Qty: 15 0RF (DME) lancets 28 gauge misc See Rx Instructions topical BID Qty: 100 Rx Instructions: As directed clopidogrel 75 mg tablet 75 mg PO DAILY 90 Days Qty: 90 3RF atorvastatin 80 mg tablet 80 mg PO DAILY Qty: 90 3RF amlodipine 5 mg tablet 5 mg PO DAILY Qty: 90 3RF epoetin kelley 10,000 unit/mL solution 20,000 unit subcut ONCE Qty: 2 0RF calcitriol 0.25 mcg capsule 0.25 mcg PO DAILY Qty: 90 0RF Rx Instructions: Every Tuesday aspirin 81 mg tablet,delayed release (DR/EC) 81 mg PO DAILY spironolactone 25 mg tablet 25 mg PO DAILY sodium polystyrene sulfonate 15 gram powder in packet 15 g PO .2w Print Language: Maori
[2024-10-18 02:57] LABS: B Type Natriuretic Peptide 3735 pg/mL (<100)
[2024-10-18 03:07] LABS: Alanine Aminotransferase 37 U/L (0-40); Albumin Level 4.1 g/dL (3.5-5.0); Alkaline Phosphatase 86 U/L (39-117); Anion Gap 31 (12-20); Aspartate Amino Transferase 63 U/L (5-37); Beta-Hydroxybutyrate 5.88 mmol/L (0.02-0.27); Bilirubin Total 0.7 mg/dL (0.0-1.0); Blood Urea Nitrogen 84 mg/dL (9-16); Calcium 7.1 mg/dL (8.4-10.2); Carbon Dioxide 7 mmol/L (22-29); Chloride 106 mmol/L (96-108); Creatinine Clr Calc Pharmacy 9.3; Estimated Glomerular Filt Rate 9; Glucose Random 739 mg/dL (60-115); Potassium 5.9 mmol/L (3.3-5.1); Sodium 138 mmol/L (135-145); Total Protein 7.6 g/dL (6.5-8.0)
[2024-10-18 03:08] LABS: Venous Blood Gas Refer to POC result
[2024-10-18] MEDS: cefTRIAXone sodium 1 GM VIAL IVPUSH (03:09)
[2024-10-18 03:12] LABS: Influenza A PCR NEGATIVE (Negative); Influenza B PCR NEGATIVE (Negative); Resp Syncy Virus RNA Qual PCR NEGATIVE (Negative); SARS COV2 PCR INHOUSE POSITIVE (Negative)
[2024-10-18] MEDS: Doxycycline Hyclate 100 MG in 0.9 % Sodium Chloride 250 ML 166.67 MG IV (03:15)
[2024-10-18] MEDS: Insulin Regular, Human 100 UNIT/ML 10 ML VIAL IVPUSH (03:16)
[2024-10-18 03:17] LABS: VBG Base Excess -19.8 mmol/L; VBG HCO3 7 mmol/L (22-26); VBG pCO2 20 mmHg; VBG pH 7.14 (7.32-7.43); VBG pO2 49 mmHg
--- NOTE | 2024-10-18 03:20 | PC.NURSE ---
critical labs report to KENDALL Walsh and Dr. Felton
[2024-10-18] MEDS: 0.9 % Sodium Chloride 1,000 ML 250 ML IV (03:22)
[2024-10-18 03:42] LABS: Hematocrit 27.1 % (42.0-52.0); Hemoglobin 8.4 g/dl (14.0-18.0); Mean Corpuscular Hemoglobin 30.9 pg (27.0-33.0); Mean Corpuscular Volume 99.6 fL (80.0-98.0); Mean Platelet Volume 11.5 fL (9.4-12.4); Platelet Count 275 X10*3/uL (160-400); Red Blood Count 2.72 X10*6/uL (4.60-5.80); Red Cell Distribution Width 16.4 % (11.0-16.0); White Blood Count 10.6 X10*3/uL (4.8-10.8)
[2024-10-18] MEDS: Furosemide 40 MG/4 ML VIAL IVPUSH (03:42)
[2024-10-18] MEDS: Heparin Sodium,Porcine 5,000 UNIT/ML VIAL 4000 UNIT IVPUSH (03:48)
[2024-10-18] MEDS: Aspirin Enteric Coated 81 MG TABLET.DR PO (03:49)
[2024-10-18 03:51] LABS: INTERNATIONAL NORM RATIO 1.1 (0.9-1.1); Prothrombin Time 13.2 SEC (10.9-12.4)
[2024-10-18 03:54] LABS: PTT Heparin Drip 27.1 SEC (53-77.9)
[2024-10-18 03:56] LABS: Glucose, Whole Blood 591 mg/dL (60-115)
[2024-10-18] MEDS: Insulin Regular/NS 100 UNIT/100 ML PLAST..BAG 8 UNIT IVCONT (03:59)
[2024-10-18] MEDS: 0.9 % Sodium Chloride 1,000 ML 999 ML IV (04:00)
[2024-10-18] MEDS: Heparin Sodium,Porcine/1/2NS 25,000 UNIT/250 ML IV.SOLN 8.36 UNIT IVCONT (04:01)
--- NOTE | 2024-10-18 04:30 | PC.NURSE ---
Delayed entry: PT arrived via ems from home c/c sore throat, chills, dry heaving, thirst and SOB that increased with exertion. PT states his symptoms started yesterday. PT denies CP, palpitations or lightheadedness ?No hx of asthma or copd, has a HX of diabetes, CHF and reports he had a mild heart attack in february. EMS found to be sat-ing on RA at 87% PT rec'd albuterol tx en route and oxygen improved to 92%. EMS POC 571 On exam in the ED, PT is a/ox4, neuros intact; skin pwd; audible crackles heard, oxygen saturation on room air 87%- improved to 93% on 5L NC, VS-? temp 97.8,? bp 137/63, hr 96bpm, rr 33; abdomen soft non tender- pt endorsing nausea and loose stools, denies difficulty urinating or hematuria or blood in stool, pt vomiting on exam dark green in color; no edema observed in bilateral legs.? 20g IV placed in bilateral forearms and right wrist. Full set of Labs and swabs obtained and sent down for resulting. EKG obtained and given to the provider for review, placed on continuous teletypesetter monitor. Fluids started at 250mls/hr d/t fluid overload concerns however at 0400 provider ordered to d/c infusion and start ordered 1L bolus infusion-which is still running at transport, ceftriaxone ordered at 0258 hung at 0309, doxycycline?ordered at 0256, hung at 0315 and is currently still running at time of transport. all other medications administered as per MAR Insulin and Heparin drip administration delayed d/t pharmacy verification process. KENDALL Jacinto spoke with? pharmacy to verify weight for heparin. Infusions now running- heparin at 12u/kg/hr as per protocol, and insulin drip at 8u/hr starting rates verified with supervisor propellant charge loadingRima.? Report and handoff provided to EMS for transport to [facility]. Report given to ED barking machine feeder at [facility].?
[2024-10-18 04:32] LABS: Reflex Lactate? Lactic Acid Added
== END 2024-10-18 04:45 | disposition short-term general hospital (02) ==
PROVIDERS: Emergency Provider Emergency Medicine
DX: U07.1 COVID-19 (principal); I21.4 Non-ST elevation (NSTEMI) myocardial infarction; E11.10 Type 2 diabetes mellitus with ketoacidosis without coma; E11.22 Type 2 diabetes mellitus with diabetic chronic kidney disease; I13.2 Hypertensive heart and chronic kidney disease with heart failure and with stage 5 chronic kidney disease, or end stage renal disease; N18.5 Chronic kidney disease, stage 5; I50.9 Heart failure, unspecified; R09.02 Hypoxemia; J02.9 Acute pharyngitis, unspecified; E78.5 Hyperlipidemia, unspecified; E21.3 Hyperparathyroidism, unspecified; C61 Malignant neoplasm of prostate; Z79.82 Long term (current) use of aspirin; Z79.02 Long term (current) use of antithrombotics/antiplatelets; Z79.899 Other long term (current) drug therapy; Z79.4 Long term (current) use of insulin
CPT/HCPCS: 0241U; 36415; 71045; 80053; 82010; 82803; 82947; 83605; 83880; 84484; 85025; 85027; 85610; 85730; 87040; 87651; 93005; 96361; 96374; 96375; 99285; J0696; J1644; J1940

== ENCOUNTER → 2024-10-18 02:13 | Outpatient (BNV) | payer OTHER, SELFPAY | PROVIDERS: Emergency Provider Emergency Medicine; Visit Provider Internal Medicine | DX: R06.02 Shortness of breath (principal); R94.31 Abnormal electrocardiogram [ECG] [EKG] | CPT/HCPCS: 93010 ==

== ENCOUNTER → 2024-10-18 02:33 | Outpatient (BNV) | payer OTHER, SELFPAY | PROVIDERS: Emergency Provider Emergency Medicine; Visit Provider Specialist | DX: R06.02 Shortness of breath (principal) | CPT/HCPCS: 71045 ==

== ENCOUNTER 2024-11-08 12:42 | Outpatient (AMB) | payer OTHER, SELFPAY ==
--- NOTE | 2024-11-08 12:51 | A.OFFPC_ITS ---
Vital Signs 11/08/24 12:54 Height 5 ft 7 in Weight 136 lb 6 oz BMI 21.4 BP 100/60 Blood Pressure Location Lt brachial Position Sitting Pulse 72 Pulse Source Pulse Oximeter Temp 97.3 F Temp Source Skin Pulse Oximetry (%) 98 Oxygen Delivery Method Room Air Intake Visit Reasons: [facility] 11/01 Intake Note: Patient is here for hospital discharge follow up. Patient was discharged from [facility] on 11/01/24. Radioactivity Technician Required: No Emergency Veterinarian: Present Accompanied by: Sister Allergies No Known Allergies [No Known Allergies*] Allergy (Verified 11/08/24 17:22) Medication List - Last Reconciled 11/08/24 by Zaida Adler PA-C alcohol swabs (BD Alcohol Swabs) pad topical DAILY aspirin 81 mg PO DAILY atorvastatin 80 mg PO DAILY betamethasone dipropionate 0.05% 1 appl topical BID PRN blood sugar diagnostic (FreeStyle Test strips) As directed twice a day blood-glucose meter As directed calcitriol 0.5 mcg PO DAILY calcium carbonate 500 mg PO DAILY diclofenac sodium 1% (Arthritis Pain (diclofenac)) 4 grams topical QID ferrous fumarate (Ferretts) 325 mg PO BID flash glucose scanning reader ([employer]Communication [employer] Wale 14 Day Barrow) As directed flash glucose sensor (FreeStyle Wale 14 Day Sensor kit) As directed hydralazine 25 mg PO 3XD insulin glargine (Lantus Solostar U-100 Insulin) 8 units (0.08 mL) subcut QPM 90 days insulin lispro (Humalog KwikPen (U-100) Insulin) 4 units subcut TID isosorbide dinitrate 10 mg PO 3XD lancets As directed levothyroxine (Synthroid) 25 mcg PO DAILY linagliptin (Tradjenta) 5 mg PO DAILY metoprolol succinate ER 75 mg PO DAILY mupirocin 2% 1 appl topical BID pen needle, diabetic As directed 1x daily sodium polystyrene sulfonate 15 grams PO .2w terazosin 5 mg PO BEDTIME 90 days Tobacco use date assessed: 11/08/24 Fall risk assessment: No Falls in past year Last assessed Fall Risk: 11/08/24 Dental Screening Dental Screen Date: 11/08/24 Did you have a dental visit in the last 12 months?: No Did you have a dental problem in the last 6 months where you did not have access to dental care?: No Was dental information given to patient?: Patient has dentist [facility] Medical History Heart attack Atherosclerotic cardiovascular disease CKD (chronic kidney disease) stage 5, GFR less than 15 ml/min Other and unspecified hyperlipidemia Essential hypertension Edema of both feet Prostate cancer Gout Hyperlipidemia Diabetes Surgical History History of hernia surgery Family History Mother No problems noted. Father No problems noted. Social History Housing: House Alcohol intake: never Patient Tobacco Use Status: Never used Tobacco e-Cigarette/Vaping Use: Never Used Second Hand Smoke Exposure: No service: No Current occupational status: retired Current occupation: rt handed Cognitive needs: No Hearing needs: No Vision needs: Yes (Glasses) Questionnaire PHQ-9 Over the last 2 weeks, how often have you been bothered by any of the following problems? 1. Little interest or pleasure in doing things: not at all 2. Feeling down, depressed, or hopeless: not at all 3. Trouble falling or staying asleep, or sleeping too much: not at all 4. Feeling tired or having little energy: not at all 5. Poor appetite or overeating: not at all 6. Feeling bad about yourself - or that you are a failure or have let yourself or your family down: not at all 7. Trouble concentrating on things, such as reading the newspaper or watching television: not at all 8. Moving or speaking so slowly that other people could have noticed. Or the opposite - being so fidgety or restless that you have been moving around a lot more than usual: not at all 9. Thoughts that you would be better off or of hurting yourself in some way: not at all Total score: 0 Depression Screening Interpretation: Negative Depression Screening Done: Yes Source: Developed by Drs. Jorge Correa, Dominique Johnson, Andre Torres and colleagues, with an educational john from [employer]. Thrive Questionnaire Date Thrive assessed: 11/08/24 I am a: Patient What is your living situation today?: I have a steady place to live Within the past 12 months, did the food you bought not last and you didn't have the money to get more?: Never true Within the past 12 months, did you worry whether your food would run out before you got money to buy more?: Never true Do you have trouble paying for medicines?: No Do you have trouble getting transportation to medical appointments?: No Do you have trouble paying your heating and electricity bill?: No Do you have trouble taking care of your child, family member or friend?: No Do you have trouble with day-to-day activities such as bathing, preparing meals, shopping, managing finances, etc.?: No Are you currently unemployed and looking for a job?: No Are you interested in more education?: No Please select the resources that you would like help with: None Currently or been in a relationship where the following occur: No concerns reported THRIVE Score: 0 AUDIT C Alcohol Use Questionnaire (AUDIT-C) 1. How often do you have a drink containing alcohol?: Never Total Score: 0 ALISA-7 AMB Questionnaire ALISA-7 Date ALISA - 7 assessed: 11/08/24 Feeling nervous, anxious, or on edge: 0 = Not at all Not being able to stop or control worryin = Not at all Worrying too much about different things: 0 = Not at all Trouble relaxin = Not at all Being so restless that it is hard to sit still: 0 = Not at all Becoming easily annoyed or irritable: 0 = Not at all Feeling afraid as if something awful might happen: 0 = Not at all Total ALISA-7 score (0-4 normal; 5-9 mild; 10-14 moderate; 15-21 severe): 0 Source: Developed by Drs. Jorge Correa, Dominique Johnson, Andre Torres and colleagues, with an educational john from [employer]. Physical exam (Primary Care) Vital Signs: Last Vital Signs Temp 97.3 F 11/08/24 12:54 Pulse 72 11/08/24 12:54 BP 100/60 11/08/24 12:54 Pulse Ox 98 11/08/24 12:54 Oxygen Delivery Method Room Air 11/08/24 12:54 Care Plan Goal for BP management: <130/80 at goal BMI result Body Mass Index 21.4 BMI Assessment/Plan discussion: Low BMI Low, Plan discussed: lifestyle, increase calorie intake and dietary Tobacco/Smoking Status: Tobacco use Status Tobacco use date assessed 11/08/24 11/08/24 13:06 Patient Tobacco Use Status Never used Tobacco 11/08/24 13:06 e-Cigarette/Vaping Use Never Used 11/08/24 13:06 PHQ-9: PHQ-9 Score PHQ-9: Total score 0 11/08/24 13:06 Depression Screening Interpretation: Negative Thrive Assessment: Date of Thrive Assessment Date Thrive assessed 11/08/24 11/08/24 13:06 Currently or been in a relationship where the following occur: No concerns re ported Coding Level of Care Code Est Pt Level 4 (19234) Complex EM visit Add On G2211 Diagnoses COVID-19 virus infection U07.1 Chronic combined systolic and diastolic CHF (congestive heart failure) I50.42 Atherosclerotic cardiovascular disease I25.10 Hyperparathyroidism E21.3 CKD (chronic kidney disease) stage 5, GFR less than 15 ml/min N18.5 Type 2 diabetes mellitus with unspecified complications E11.8 Prostate cancer C61 Assessment & Plan Assessment & Plan (1) COVID-19 virus infection: Code(s): U07.1 - COVID-19 Category: Medical Plan: Condition has improved. Will continue to monitor. (2) Chronic combined systolic and diastolic CHF (congestive heart failure): Code(s): I50.42 - Chronic combined systolic (congestive) and diastolic (congestive) heart failure Category: Medical Plan: Condition is chronic and stable will continue to monitor. (3) Atherosclerotic cardiovascular disease: Code(s): I25.10 - Atherosclerotic heart disease of [place] coronary artery without angina pectoris Category: Medical Plan: Condition is chronic and stable will continue to monitor. (4) Hyperparathyroidism: Code(s): E21.3 - Hyperparathyroidism, unspecified Category: Medical Plan: Condition is chronic and stable will continue to monitor. (5) CKD (chronic kidney disease) stage 5, GFR less than 15 ml/min: Code(s): N18.5 - Chronic kidney disease, stage 5 Category: Medical Plan: Patient is following up with nephrology today. Will repeat labs. Condition is chronic and stable will continue to monitor. (6) Type 2 diabetes mellitus with unspecified complications: Code(s): E11.8 - Type 2 diabetes mellitus with unspecified complications Category: Medical Plan: Patient is currently on glargine 8 units every morning and lispro 4 units 3 times a day. Condition is chronic and stable will continue to monitor. (7) Prostate cancer: Comment: Long-term GnRH therapy Code(s): C61 - Malignant neoplasm of prostate Category: Medical Plan: Condition is chronic and stable will continue to monitor. Plan Plan - Continue current insulin regimen including Glargine 8 units once daily and Humalog 4 units three times daily before meals. - Monitor blood glucose levels closely, especially upon waking, before meals, and at bedtime. - Discuss with senior solutions engineer about potential modifications necessary for gout management and overall medication safety concerning chronic kidney disease. - Consider post-discharge lab work to ensure stabilization of renal function and electrolyte levels, to be coordinated with nephrology care. Orders: Orders Complete Blood Count Auto Diff Today Z00.00 - Encounter for general adult medic al examination without abnormal findings Comprehensive Met. Panel Today Z00.00 - Encounter for general adult medical examination without abnormal findings Medications: New flash glucose scanning reader (FreeStyle Wale 14 Day Barrow) As directed 1 ea 0RF flash glucose sensor (FreeStyle Wale 14 Day Sensor kit) As directed 1 ea 0RF Changed From insulin glargine (Lantus Solostar U-100 Insulin) 15 units (0.15 mL) subcut QPM 13.5 mL 3RF 90 days To insulin glargine (Lantus Solostar U-100 Insulin) 8 units (0.08 mL) subcut QPM 7.2 mL 3RF 90 days Patient Instructions: Patient Instructions - Administer Humalog 4 units before meals three times a day. - Record blood sugar levels in the morning, before meals, and at bedtime. - If experiencing symptoms of gout, consult with your senior solutions engineer before taking any additional medication. - Schedule follow-up appointments and labs as discussed to ensure comprehensive management of diabetes and monitor kidney function. - Maintain a small nutritious meal or snack upon waking. - Avoid beverages and juices high in sugar to aid in blood glucose control. - Ensure continuous communication with the health team regarding any symptoms or concerns, particularly concerning kidney health or medication side effects. - Keep this documentation for reference and consistency in medication intake and follow-up procedures. Scribe Plan - Not visible on output: History of Present Illness The patient is an 79-year-old male presenting with a hospital discharge follow- up. The patient was hospitalized from October 18 due to symptoms including acute respiratory distress, which was determined to be secondary to COVID-19, leading to complications such as acute congestive heart failure, hypoxia, and a high blood sugar level associated with diabetic ketoacidosis. During his initial treatment at [facility], the patient was managed with oxygen therapy, insulin infusion, and medications like aspirin, heparin, and diuretics, although the initial plan to transfer to [facility] was revised due to lack of bed availability, necessitating transfer to [facility]. His care continued there. Adjustments were made to his diabetes management regimen, including the initiation of Humalog and altering the dosages of existing insulin therapies. The patient's condition stabilized, and medications previously withheld were recommended to be resumed, with adjustments as necessary for chronic kidney disease. The patient reports post-discharge blood glucose readings generally within or improving toward target range, with 185-250 mg/dL initially, later reducing to levels closer to 155-172 mg/dL. He now reports improved readings like 97 mg/dL in the morning. Social History - Resides with his son. 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 - Describes decreased level of regular physical activity due to recent illness. - Declines interest in further consultation with a machine stemmer citing existing dietary information. - Reports a general reduction in appetite and strength since recovery. Review of Systems - General: Reports decreased appetite and energy levels. - Endocrine: Reports recently improved blood sugar levels. - Respiratory: Denies current difficulties in breathing since discharge. Physical Exam Appearance: Alert. Oriented X3. No acute distress. Head: Normal external exam. Normocephalic. Atraumatic. Eyes: Pupils are equal, round, and reactive to light. Extraocular movements intact. Conjunctiva and sclera normal. Eyelids normal. Ears: External auditory canal normal. Tympanic membranes normal. Throat: Pharynx normal. Uvula midline. Moist mucous membranes. Neck: Normal inspection. Neck supple. Full range of motion. No adenopathy. Thyroid Normal. No meningeal signs. No neck mass noted. Cardiovascular: Normal heart rate and rhythm. Heart sound normal. No murmurs noted. Pulses normal throughout. Respiratory: No respiratory distress. Painless inspiration. Breath sounds normal. No wheezes/rales/rhonchi noted. Chest nontender. No accessory muscle usage noted or decreased air movement noted. Abdomen: Soft and nontender. Bowel sounds normal in all 4 quadrants. No distention noted. No organomegaly noted. No visible injury noted. Back: No costovertebral angle tenderness. Full range of motion noted. Skin: Skin warm and dry. Normal skin color. Normal skin turgor. No rashes/lesions/lacerations noted. Extremities: No lower extremity edema. Extremities exhibit normal range of motion. Extremities nontender. Neuro: Oriented X 3. No motor deficit. No sensory deficit. Reflexes normal. Results - Labs: Hemoglobin A1c was 8.7% on October 19, 2024. Plan - Continue current insulin regimen including Glargine 8 units once daily and Humalog 4 units three times daily before meals. - Monitor blood glucose levels closely, especially upon waking, before meals, and at bedtime. - Discuss with senior solutions engineer about potential modifications necessary for gout management and overall medication safety concerning chronic kidney disease. - Consider post-discharge lab work to ensure stabilization of renal function and electrolyte levels, to be coordinated with nephrology care. Patient was informed and verbally consented to the use of an ambient scribe for clinic note documentation during this visit. Discussion Notes During our conversation, I emphasized the need to maintain the adjusted insulin regimen due to ongoing hyperglycemia. I explained that persistent high glucose levels necessitate continued insulin therapy, with adjustments made for timing and dosing to achieve better glycemic control. We agreed to continue close glucose monitoring and adjust lifestyle to support these interventions. Emphasis was placed on not delaying insulin administration upon waking to avoid morning hyperglycemia. We also discussed his current medications, which he is to continue, while excluding certain discontinued drugs due to potential renal impact. We agreed to consider periodic reassessment to evaluate the effectiveness of the current glucose control strategies. Patient Instructions - Administer Humalog 4 units before meals three times a day. - Record blood sugar levels in the morning, before meals, and at bedtime. - If experiencing symptoms of gout, consult with your senior solutions engineer before taking any additional medication. - Schedule follow-up appointments and labs as discussed to ensure comprehensive management of diabetes and monitor kidney function. - Maintain a small nutritious meal or snack upon waking. - Avoid beverages and juices high in sugar to aid in blood glucose control. - Ensure continuous communication with the health team regarding any symptoms or concerns, particularly concerning kidney health or medication side effects. - Keep this documentation for reference and consistency in medication intake and follow-up procedures.
[2024-11-08 12:54] VITALS: BP 100/60; PULSE 72; TEMP 36.3; O2SAT 98; BMI 21.4
--- OUTSIDE RECORDS SUMMARY | 2024-11-08 16:32 | XMS_ITS | Encounter Summary ---
Author Organization [facility] Address [address] [place] [address] Care Team Providers Care Mortgage Processor Name Role Phone Diaz Akers MD Primary Care Provider Soledad vailable Encounter Details Date Type Department Care Team (Late st Contact Info) Description 10/19/2024 Scanned Document CARDIOLOGY [address] [place] [id number] Sejal Blair [address] [address] Social History Tobacco Use Types Packs/Day Years Used Date Smoking Tobacco: Never Assessed [facility] Utilities Answer Date Recorded In the past 12 months has [employer] electric, gas, oil, or water company threatened to shut off services in your home? No 10/20/2024 AUDIT-C Answer Date Recorded Q1: How often do you have a drink containing alcohol? Never 10/20/2024 Q2: How many drinks containi ng alcohol do you have on a typical day when you are drinking? Patient does not drink Q3: How often do you have si x or more drinks on one occasion? Never 10/20/2024 Hunger Vital Sign Answer Date Recorded Within the past 12 months, y ou worried that your food would run out before you got the money to buy more. Never true 10/20/19 25 Within the past 12 months, t he food you bought just didn't last and you didn't have money to get more. Never true 10/20/2024 PRAPARE - Transportation Answer Date Re corded In the past 12 months, has l ack of transportation kept you from medical appointments or from getting medications? No 10/10 In the past 12 months, has l ack of transportation kept you from meetings, work, or from getting things needed for daily living? No 10/20/2024 Housing Stability Vital Sign Answer Dane e Recorded In the last 12 months, was t here a time when you were not able to pay the mortgage or rent on time? No 10/20/2024 In the past 12 months, how m any times have you moved where you were living? 1 10/20/2024 At any time in the past 12 m [facility], were you homeless or living in a [facility] (including now)? No 10/20/2024 Sex and Gender Information Value Date Recorded Sex Assigned at Male 10/18/2024 5:34 AM EST Gender Identity Male 10/18/2024 5:34 AM EST Sexual Orientation Heterosexual (straight) 10/18 5:34 AM EST documented as of this encounter Plan of Treatment Not on file documented as of this encounter Visit Diagnoses Not on filedocumented in this encounter Additional Health Concerns Infection Onset Date Last Indicated Resolved Time COVID-19 Comment:Strict isolation for COVID-19 is required. ??Note: Day of symptom onset/test is considered day 0. Isolation can be discontinued as follows: Asymptomatic: ??10 days from initial positive Symptomatic: at least 10 days from symptom onset or diagnostic test (whichever comes first) and at least 24 hours fever free without fever reducing medications Immunocompromised: minimum of??20 days. Consider consulting Infectious Disease 10/19/2024 10/19/2024 10/31/2024 3:[address] documented as of this encounter Care Teams Mortgage Processor Relationship Specialty Start Date End Date Diaz Akers MD PCP - General Internal Medicine 10/20/24 documented as of this encounter
--- OUTSIDE RECORDS SUMMARY | 2024-11-08 16:32 | XMS_ITS ---
Author Name [facility] Organization Unknown Results Test Name/Text Value Interpretation Date Range Source POC Glucose 189mg/dL Above high normal [id number] 65 - 99 [facility] POC Glucose 111mg/dL Above high normal 038835715034 65 - 99 H[facility]CT Chloride SerPl-sCnc 104mmol/L Normal [id number] 98 - 107 H[facility]CT Glucose SerPl-mCnc 92mg/dL Normal 279361034536 65 - 99 HHCCT GFR/BSA.pred SerPlBld QRP-XJJ-LmNPfr 13 Below low normal 645287167961 59 - HHCCT Creat SerPl-mCnc 4.5mg/dL Above high normal 577575822948 0. 5 - 1.3 HHCCT BUN/Creat SerPl 9Ratio Below low normal 939292556318 10 - 25 HHCCT Anion Gap Bld-sCnc 14 Normal 015735413113 7 - 17 HHCCT Calcium SerPl-mCnc 9.3mg/dL Normal 004365027418 8.7 - 10 .5 HHCCT CO2 SerPl-sCnc 22mmol/L Normal 460612419465 22 - 33 HH CCT BUN SerPl-mCnc 41mg/dL Above high normal 462970994912 8 - 21 HHCCT Sodium SerPl-sCnc 140mmol/L Normal [id number] 136 - 145 HHCCT Potassium SerPl-sCnc 4.8mmol/L Normal 765630972443 3.4 - 5.3 HHCCT Phosphate SerPl-mCnc 4.7mg/dL Above high normal 703727206365 2.7 - 4.5 HHCCT Magnesium SerPl-mCnc 1.6mg/dL Normal 451458065461 1.6 - 2.7 HHCCT MCH RBC Qn Auto 30.7pg Normal 824228768157 27 - 31 H HCCT PMV Bld Auto 11.4fL Normal [id number] 7.5 - 12.[address] RDW RBC Auto-Rto 16.2% Above high normal 951560047825 11.5 - 14.5 HHCCT Hct VFr Bld Auto 29.7% Below low normal 123255166011 39 - 54 H[facility]CT Platelet num Bld Auto 261Thou/uL Normal [id number] 150 - 450 HHCCT MCHC RBC Auto-mCnc 31g/dL Normal [id number] 30 - 36 HHCCT MCV RBC Auto 99fL Normal [id number] 80 - 100 HHCC T WBC num Bld Auto 9.1Thou/uL Normal [id number] 4 - 11 HHCCT RBC num Bld Auto 3Mil/uL Below low normal [id number] 4.5 - 6.2 HHCCT Hgb Bld-mCnc 9.2g/dL Below low normal 756106893886 13 - 17 .7 HHCCT POC Glucose 122mg/dL Above high normal 385022813319 65 - 99 HHCCT POC Glucose 128mg/dL Above high normal 005240659748 65 - 99 HHCCT POC Glucose 74mg/dL Normal [id number] 65 - 99 HHCCT LMWH PPP Msw-aCnc 0.36IU/mL Normal 927170937353 HHCCT POC Glucose 92mg/dL Normal [id number] 65 - 99 HHCCT Anticoagulant IV HEPARIN, UNFRACTIONATED Normal 794728457620 HHCCT TSH SerPl DL<=0.005 mIU/L-aCnc 2.06mIU/L Normal 805090303046 0.27 - 4.2 HHCCT Troponin T SerPl-mCnc 396ng/L Critically high 967178741405 - 23 HHCCT Delta Normal 529902452437 - 3 HHCCT Magnesium SerPl-mCnc 1.7mg/dL Normal [id number] 1.6 - 2.7 HHCCT Chloride SerPl-sCnc 104mmol/L Normal 856489094411 98 - 107 HHCCT Glucose SerPl-mCnc 82mg/dL Normal [id number] 65 - 99 HHCCT GFR/BSA.pred SerPlBld DKL-TCU-VqMPfh 12 Below low normal 758122020992 59 - HHCCT Creat SerPl-mCnc 4.6mg/dL Above high normal 647362533294 0. 5 - 1.3 HHCCT BUN/Creat SerPl 9Ratio Below low normal 227553092598 10 - 25 HHCCT Anion Gap Bld-sCnc 16 Normal 579689223905 7 - 17 HHCCT Calcium SerPl-mCnc 8.8mg/dL Normal 062538426737 8.7 - 10 .5 HHCCT CO2 SerPl-sCnc 24mmol/L Normal [id number] 22 - 33 HH CCT BUN SerPl-mCnc 40mg/dL Above high normal 818199544307 8 - 21 HHCCT Sodium SerPl-sCnc 144mmol/L Normal [id number] 136 - 145 HHCCT Potassium SerPl-sCnc 4.7mmol/L Normal 391693713477 3.4 - 5.3 HHCCT Phosphate SerPl-mCnc 4.7mg/dL Above high normal 413149620403 2.7 - 4.5 HHCCT POC Glucose 84mg/dL Normal [id number] 65 - 99 HHCCT MCH RBC Qn Auto 30.7pg Normal [id number] 27 - 31 H HCCT PMV Bld Auto 11.3fL Normal [id number] 7.5 - 12.[address] RDW RBC Auto-Rto 16.5% Above high normal 885997993320 11.5 - 14.5 HHCCT Hct VFr Bld Auto 31.4% Below low normal 521974055852 39 - 54 HHCCT Platelet num Bld Auto 289Thou/uL Normal [id number] 150 - 450 HHCCT MCHC RBC Auto-mCnc 30.6g/dL Normal [id number] 30 - 36 HHCCT MCV RBC Auto 100fL Normal [id number] 80 - 100 HHCC T WBC num Bld Auto 8.9Thou/uL Normal [id number] 4 - 11 HHCCT RBC num Bld Auto 3.13Mil/uL Below low normal 466315109320 4. 5 - 6.2 HHCCT Hgb Bld-mCnc 9.6g/dL Below low normal [id number] 13 - 17 .7 HHCCT LMWH PPP Msw-aCnc 0.54IU/mL Normal 784657950464 HHCCT POC Glucose 88mg/dL Normal [id number] 65 - 99 HHCCT Anticoagulant IV HEPARIN, UNFRACTIONATED Normal 325254325575 HHCCT POC Glucose 147mg/dL Above high normal [id number] 65 - 99 HHCCT POC Glucose 124mg/dL Above high normal 427083986735 65 - 99 HHCCT POC Glucose 99mg/dL Normal [id number] 65 - 99 HHCCT POC Glucose 99mg/dL Normal 543638930703 65 - 99 HHCCT Chloride SerPl-sCnc 101mmol/L Normal [id number] 98 - 107 HHCCT Glucose SerPl-mCnc 80mg/dL Normal [id number] 65 - 99 HHCCT GFR/BSA.pred SerPlBld MVZ-PAG-PmMQlb 13 Below low normal 757865605771 59 - HHCCT Creat SerPl-mCnc 4.3mg/dL Above high normal [id number] 0. 5 - 1.3 HHCCT BUN/Creat SerPl 9Ratio Below low normal [id number] 10 - 25 HHCCT Anion Gap Bld-sCnc 14 Normal [id number] 7 - 17 HHCCT Calcium SerPl-mCnc 9.2mg/dL Normal 858735388909 8.7 - 10 .5 HHCCT CO2 SerPl-sCnc 27mmol/L Normal [id number] 22 - 33 HH CCT BUN SerPl-mCnc 40mg/dL Above high normal 243511503005 8 - 21 HHCCT Sodium SerPl-sCnc 142mmol/L Normal [id number] 136 - 145 HHCCT Potassium SerPl-sCnc 4.5mmol/L Normal [id number] 3.4 - 5.3 HHCCT Magnesium SerPl-mCnc 1.7mg/dL Normal [id number] 1.6 - 2.7 HHCCT Phosphate SerPl-mCnc 5.1mg/dL Above high normal [id number] 2.7 - 4.5 HHCCT POC Glucose 95mg/dL Normal [id number] 65 - 99 HHCCT MCH RBC Qn Auto 31.1pg Above high normal 615664636962 27 - 31 HHCCT PMV Bld Auto 11.1fL Normal [id number] 7.5 - 12.[address] RDW RBC Auto-Rto 16.8% Above high normal 130883187613 11.5 - 14.5 HHCCT Hct VFr Bld Auto 30.3% Below low normal [id number] 39 - 54 HHCCT Platelet num Bld Auto 304Thou/uL Normal [id number] 150 - 450 HHCCT MCHC RBC Auto-mCnc 30.7g/dL Normal [id number] 30 - 36 HHCCT MCV RBC Auto 101fL Above high normal 375992535718 80 - 1 00 HHCCT WBC num Bld Auto 9.3Thou/uL Normal [id number] 4 - 11 HHCCT RBC num Bld Auto 2.99Mil/uL Below low normal [id number] 4. 5 - 6.2 HHCCT Hgb Bld-mCnc 9.3g/dL Below low normal [id number] 13 - 17 .7 HHCCT LMWH PPP Msw-aCnc 0.5IU/mL Normal 711603930631 HHCCT POC Glucose 90mg/dL Normal 568645351565 65 - 99 HHCCT POC Glucose 74mg/dL Normal [id number] 65 - 99 HHCCT Anticoagulant IV HEPARIN, UNFRACTIONATED Normal 229580008828 HHCCT POC Glucose 138mg/dL Above high normal [id number] 65 - 99 HHCCT POC Glucose 187mg/dL Above high normal 085306209294 65 - 99 HHCCT POC Glucose 162mg/dL Above high normal 042694827083 65 - 99 HHCCT pro BNP, N-terminal 65815mw/mL Above high normal 777066239553 - 450 HHCCT Phosphate SerPl-mCnc 4.9mg/dL Above high normal 584836738175 2.7 - 4.5 HHCCT Chloride SerPl-sCnc 103mmol/L Normal [id number] 98 - 107 HHCCT Glucose SerPl-mCnc 91mg/dL Normal [id number] 65 - 99 HHCCT GFR/BSA.pred SerPlBld CTY-YJP-PsKSex 13 Below low normal [id number] 59 - HHCCT Creat SerPl-mCnc 4.3mg/dL Above high normal [id number] 0. 5 - 1.3 HHCCT BUN/Creat SerPl 10Ratio Normal [id number] 10 - 25 H HCCT Anion Gap Bld-sCnc 13 Normal [id number] 7 - 17 HHCCT Calcium SerPl-mCnc 8.8mg/dL Normal 886973240112 8.7 - 10 .5 HHCCT CO2 SerPl-sCnc 26mmol/L Normal [id number] 22 - 33 HH CCT BUN SerPl-mCnc 44mg/dL Above high normal 869084958477 8 - 21 HHCCT Sodium SerPl-sCnc 142mmol/L Normal [id number] 136 - 145 HHCCT Potassium SerPl-sCnc 4mmol/L Normal [id number] 3.4 - 5.3 HHCCT Magnesium SerPl-mCnc 1.7mg/dL Normal [id number] 1.6 - 2.7 HHCCT LMWH PPP Msw-aCnc 0.41IU/mL Normal [id number] HHCCT MCH RBC Qn Auto 29.8pg Normal [id number] 27 - 31 H HCCT PMV Bld Auto 10.9fL Normal [id number] 7.5 - 12.[address] RDW RBC Auto-Rto 17.2% Above high normal [id number] 11.5 - 14.5 HHCCT Hct VFr Bld Auto 29.6% Below low normal [id number] 39 - 54 HHCCT Platelet num Bld Auto 300Thou/uL Normal [id number] 150 - 450 HHCCT MCHC RBC Auto-mCnc 29.4g/dL Below low normal 176339734723 3 0 - 36 HHCCT MCV RBC Auto 101fL Above high normal [id number] 80 - 1 00 HHCCT WBC num Bld Auto 8.5Thou/uL Normal [id number] 4 - 11 HHCCT RBC num Bld Auto 2.92Mil/uL Below low normal [id number] 4. 5 - 6.2 HHCCT Hgb Bld-mCnc 8.7g/dL Below low normal 871570157177 13 - 17 .7 HHCCT POC Glucose 107mg/dL Above high normal 532808757432 65 - 99 HHCCT POC Glucose 99mg/dL Normal 368063055178 - HHCCT Anticoagulant IV HEPARIN, UNFRACTIONATED Normal [id number] HHCCT POC Glucose 219mg/dL Above high normal 615459181250 - HHCCT POC Glucose 170mg/dL Above high normal [id number] - HHCCT Chloride SerPl-sCnc 105mmol/L Normal [id number] 98 - 107 HHCCT Glucose SerPl-mCnc 208mg/dL Above high normal 387858222966 - HHCCT GFR/BSA.pred SerPlBld UCQ-TVX-EiYEvd 13 Below low normal [id number] 59 - HHCCT Creat SerPl-mCnc 4.3mg/dL Above high normal [id number] 0. 5 - 1.3 HHCCT BUN/Creat SerPl 11Ratio Normal [id number] 10 - 25 H HCCT Anion Gap Bld-sCnc 13 Normal [id number] 7 - 17 HHCCT Calcium SerPl-mCnc 8.9mg/dL Normal [id number] 8.7 - 10 .5 HHCCT CO2 SerPl-sCnc 25mmol/L Normal [id number] 22 - 33 HH CCT BUN SerPl-mCnc 48mg/dL Above high normal [id number] 8 - 21 HHCCT Sodium SerPl-sCnc 143mmol/L Normal [id number] 136 - 145 HHCCT Potassium SerPl-sCnc 4.7mmol/L Normal [id number] 3.4 - 5.3 HHCCT Phosphate SerPl-mCnc 5.2mg/dL Above high normal [id number] 2.7 - 4.5 HHCCT Magnesium SerPl-mCnc 1.8mg/dL Normal [id number] 1.6 - 2.7 HHCCT POC Glucose 232mg/dL Above high normal 063274935276 HHCCT POC Glucose 111mg/dL Above high normal 422015464312 - HHCCT Magnesium SerPl-mCnc 1.8mg/dL Normal [id number] 1.6 - 2.7 HHCCT Chloride SerPl-sCnc 105mmol/L Normal [id number] 98 - 107 HHCCT Glucose SerPl-mCnc 84mg/dL Normal [id number] 65 - 99 HHCCT GFR/BSA.pred SerPlBld BRZ-ASE-AbTXkz 13 Below low normal [id number] 59 - HHCCT Creat SerPl-mCnc 4.4mg/dL Above high normal [id number] 0. 5 - 1.3 HHCCT BUN/Creat SerPl 11Ratio Normal [id number] 10 - 25 H HCCT Anion Gap Bld-sCnc 12 Normal [id number] 7 - 17 HHCCT Calcium SerPl-mCnc 8.6mg/dL Below low normal [id number] 8 .7 - 10.5 HHCCT CO2 SerPl-sCnc 25mmol/L Normal [id number] 22 - 33 HH CCT BUN SerPl-mCnc 50mg/dL Above high normal 913540528589 8 - 21 HHCCT Sodium SerPl-sCnc 142mmol/L Normal [id number] 136 - 145 HHCCT Potassium SerPl-sCnc 3.9mmol/L Normal [id number] 3.4 - 5.3 HHCCT Phosphate SerPl-mCnc 4.6mg/dL Above high normal [id number] 2.7 - 4.5 HHCCT LMWH PPP Msw-aCnc 0.39IU/mL Normal 100216670340 HHCCT MCH RBC Qn Auto 30.5pg Normal [id number] 27 - 31 H HCCT PMV Bld Auto 11.3fL Normal [id number] 7.5 - 12.[address] RDW RBC Auto-Rto 17.2% Above high normal [id number] 11.5 - 14.5 HHCCT Hct VFr Bld Auto 29.1% Below low normal [id number] 39 - 54 HHCCT Platelet num Bld Auto 326Thou/uL Normal [id number] 150 - 450 HHCCT MCHC RBC Auto-mCnc 29.9g/dL Below low normal [id number] 3 0 - 36 HHCCT MCV RBC Auto 102fL Above high normal [id number] 80 - 1 00 HHCCT WBC num Bld Auto 9.2Thou/uL Normal [id number] 4 - 11 HHCCT RBC num Bld Auto 2.85Mil/uL Below low normal [id number] 4. 5 - 6.2 HHCCT Hgb Bld-mCnc 8.7g/dL Below low normal 890939906631 13 - 17 .7 HHCCT POC Glucose 109mg/dL Above high normal [id number] - HHCCT POC Glucose 129mg/dL Above high normal 260202258207 - HHCCT Anticoagulant IV HEPARIN, UNFRACTIONATED Normal 550003207821 HHCCT POC Glucose 203mg/dL Above high normal 204319232330 - HHCCT POC Glucose 224mg/dL Above high normal 500757173916 - HHCCT Chloride SerPl-sCnc 105mmol/L Normal [id number] 98 - 107 HHCCT Glucose SerPl-mCnc 179mg/dL Above high normal 550432446025 - HHCCT GFR/BSA.pred SerPlBld RFX-ZAT-OsUJts 14 Below low normal 484407298776 59 - HHCCT Creat SerPl-mCnc 4.2mg/dL Above high normal [id number] 0. 5 - 1.3 HHCCT BUN/Creat SerPl 13Ratio Normal [id number] 10 - 25 H HCCT Anion Gap Bld-sCnc 13 Normal [id number] 7 - 17 HHCCT Calcium SerPl-mCnc 8.6mg/dL Below low normal 571916704273 8 .7 - 10.5 HHCCT CO2 SerPl-sCnc 25mmol/L Normal [id number] 22 - 33 HH CCT BUN SerPl-mCnc 53mg/dL Above high normal 148062674932 8 - 21 HHCCT Sodium SerPl-sCnc 143mmol/L Normal [id number] 136 - 145 HHCCT Potassium SerPl-sCnc 5.2mmol/L Normal [id number] 3.4 - 5.3 HHCCT POC Glucose 186mg/dL Above high normal 150229041610 - 99 HHCCT POC Glucose 165mg/dL Above high normal 026253253805 65 - 99 HHCCT Chloride SerPl-sCnc 107mmol/L Normal [id number] 98 - 107 HHCCT Glucose SerPl-mCnc 63mg/dL Below low normal 607144514484 6 5 - 99 HHCCT GFR/BSA.pred SerPlBld IRF-RLP-YnEOrz 13 Below low normal 520204703235 59 - HHCCT Creat SerPl-mCnc 4.3mg/dL Above high normal [id number] 0. 5 - 1.3 HHCCT BUN/Creat SerPl 14Ratio Normal [id number] 10 - 25 H HCCT Anion Gap Bld-sCnc 15 Normal [id number] 7 - 17 HHCCT Calcium SerPl-mCnc 8.4mg/dL Below low normal 741448612465 8 .7 - 10.5 HHCCT CO2 SerPl-sCnc 24mmol/L Normal [id number] 22 - 33 HH CCT BUN SerPl-mCnc 59mg/dL Above high normal 736332163485 8 - 21 HHCCT Sodium SerPl-sCnc 146mmol/L Above high normal 776479931752 1 36 - 145 HHCCT Potassium SerPl-sCnc 3.7mmol/L Normal 760958722163 3.4 - 5.3 HHCCT Magnesium SerPl-mCnc 1.8mg/dL Normal [id number] 1.6 - 2.7 HHCCT Phosphate SerPl-mCnc 4.6mg/dL Above high normal 358185256436 2.7 - 4.5 HHCCT LMWH PPP Msw-aCnc 0.39IU/mL Normal 217206094942 HHCCT MCH RBC Qn Auto 30.5pg Normal [id number] 27 - 31 H HCCT PMV Bld Auto 11.6fL Normal [id number] 7.5 - 12.[address] RDW RBC Auto-Rto 16.9% Above high normal [id number] 11.5 - 14.5 HHCCT Hct VFr Bld Auto 29.8% Below low normal 297044304413 39 - 54 HHCCT Platelet num Bld Auto 321Thou/uL Normal [id number] 150 - 450 HHCCT MCHC RBC Auto-mCnc 30.2g/dL Normal [id number] 30 - 36 HHCCT MCV RBC Auto 101fL Above high normal 925816402298 80 - 1 00 HHCCT WBC num Bld Auto 9.2Thou/uL Normal [id number] 4 - 11 HHCCT RBC num Bld Auto 2.95Mil/uL Below low normal 401441584999 4. 5 - 6.2 HHCCT Hgb Bld-mCnc 9g/dL Below low normal 524941754891 13 - 17 .7 HHCCT POC Glucose 90mg/dL Normal 457971363031 65 - 99 HHCCT POC Glucose 155mg/dL Above high normal 582734286877 65 - 99 HHCCT POC Glucose 74mg/dL Normal [id number] - 99 HHCCT Anticoagulant IV HEPARIN, UNFRACTIONATED Normal [id number] HHCCT POC Glucose 120mg/dL Above high normal [id number] - 99 HHCCT POC Glucose 119mg/dL Above high normal [id number] - 99 HHCCT POC Glucose 96mg/dL Normal [id number] 65 - 99 HHCCT Troponin T SerPl-mCnc 2071ng/L Critically high 162569519137 - 23 HHCCT Delta 532 Above high normal 772162590963 - 3 HHCCT POC Glucose 90mg/dL Normal [id number] 65 - 99 HHCCT Magnesium SerPl-mCnc 1.9mg/dL Normal 924966842161 1.6 - 2.7 HHCCT Chloride SerPl-sCnc 107mmol/L Normal [id number] 98 - 107 HHCCT Glucose SerPl-mCnc 79mg/dL Normal [id number] 65 - 99 HHCCT GFR/BSA.pred SerPlBld YYA-TAC-ZtRLhx 14 Below low normal 495438739703 59 - HHCCT Creat SerPl-mCnc 4mg/dL Above high normal 526339690461 0. 5 - 1.3 HHCCT BUN/Creat SerPl 15Ratio Normal [id number] 10 - 25 H HCCT Anion Gap Bld-sCnc 15 Normal [id number] 7 - 17 HHCCT Calcium SerPl-mCnc 7.9mg/dL Below low normal 230354394160 8 .7 - 10.5 HHCCT CO2 SerPl-sCnc 23mmol/L Normal [id number] 22 - 33 HH CCT BUN SerPl-mCnc 61mg/dL Above high normal 194361921291 8 - 21 HHCCT Sodium SerPl-sCnc 145mmol/L Normal [id number] 136 - 145 HHCCT Potassium SerPl-sCnc 4.2mmol/L Normal [id number] 3.4 - 5.3 HHCCT Phosphate SerPl-mCnc 4.2mg/dL Normal [id number] 2.7 - 4.5 HHCCT LMWH PPP Msw-aCnc 0.49IU/mL Normal 135100438265 HHCCT MCH RBC Qn Auto 30.9pg Normal [id number] 27 - 31 H HCCT PMV Bld Auto 11.6fL Normal [id number] 7.5 - 12.[address] RDW RBC Auto-Rto 16.8% Above high normal [id number] 11.5 - 14.5 HHCCT Hct VFr Bld Auto 27.9% Below low normal 865242341561 39 - 54 HHCCT Platelet num Bld Auto 328Thou/uL Normal [id number] 150 - 450 HHCCT MCHC RBC Auto-mCnc 30.8g/dL Normal [id number] 30 - 36 HHCCT MCV RBC Auto 100fL Normal [id number] 80 - 100 HHCC T WBC num Bld Auto 9.7Thou/uL Normal [id number] 4 - 11 HHCCT RBC num Bld Auto 2.78Mil/uL Below low normal 953753024251 4. 5 - 6.2 HHCCT Hgb Bld-mCnc 8.6g/dL Below low normal 163865531380 13 - 17 .7 HHCCT POC Glucose 100mg/dL Above high normal 135860633543 65 - 99 HHCCT Anticoagulant IV HEPARIN, UNFRACTIONATED Normal 507489900922 HHCCT LMWH PPP Msw-aCnc 0.44IU/mL Normal 747422576546 HHCCT POC Glucose 125mg/dL Above high normal 767670376669 65 - 99 HHCCT POC Glucose 222mg/dL Above high normal 431623469719 65 - 99 HHCCT Anticoagulant IV HEPARIN, UNFRACTIONATED Normal 592961457943 HHCCT Troponin T SerPl-mCnc 2468ng/L Critically high 041182889759 - 23 HHCCT Delta 135 Above high normal 715864870593 - 3 HHCCT LMWH PPP Msw-aCnc 0.57IU/mL Normal 349420254845 HHCCT POC Glucose 135mg/dL Above high normal 674956224537 65 - 99 HHCCT Troponin T SerPl-mCnc 2413ng/L Critically high 202891162158 - 23 HHCCT Delta 190 Above high normal 344048379345 - 3 HHCCT Anticoagulant IV HEPARIN, UNFRACTIONATED Normal 810691462919 HHCCT LMWH PPP Msw-aCnc 0.47IU/mL Normal [id number] HHCCT Troponin T SerPl-mCnc 2394ng/L Critically high 437714208112 - HHCCT Delta 209 Above high normal 220514085592 - 3 HHCCT POC Glucose 166mg/dL Above high normal 616833858283 65 - HHCCT Troponin T SerPl-mCnc 2514ng/L Critically high 039935378000 - HHCCT Delta 89 Above high normal 780749073819 - 3 HHCCT Phosphate SerPl-mCnc 3.8mg/dL Normal [id number] 2.7 - 4.5 HHCCT Troponin T SerPl-mCnc 2603ng/L Critically high 336653029101 - 23 HHCCT Delta Normal 041271733757 - 3 HHCCT CK SerPl-cCnc 76U/L Normal [id number] 24 - [address] Chloride SerPl-sCnc 104mmol/L Normal [id number] 98 - 107 HHCCT Glucose SerPl-mCnc 123mg/dL Above high normal 960114935658 65 - 99 HHCCT GFR/BSA.pred SerPlBld FBC-JLX-BtZCvu 15 Below low normal 960827439728 59 - HHCCT Creat SerPl-mCnc 3.9mg/dL Above high normal [id number] 0. 5 - 1.3 HHCCT BUN/Creat SerPl 16Ratio Normal [id number] 10 - 25 H HCCT Anion Gap Bld-sCnc 16 Normal [id number] 7 - 17 HHCCT Calcium SerPl-mCnc 7.8mg/dL Below low normal 844153534118 8 .7 - 10.5 HHCCT CO2 SerPl-sCnc 21mmol/L Below low normal 558354545398 22 - 33 HHCCT BUN SerPl-mCnc 64mg/dL Above high normal 972651191424 8 - 21 HHCCT Sodium SerPl-sCnc 141mmol/L Normal 631655041654 136 - 145 HHCCT Potassium SerPl-sCnc 4.6mmol/L Normal 209145603663 3.4 - 5.3 HHCCT Magnesium SerPl-mCnc 2mg/dL Normal 096835651236 1.6 - 2.7 HHCCT MCH RBC Qn Auto 30.6pg Normal [id number] 27 - 31 H HCCT PMV Bld Auto 11.3fL Normal [id number] 7.5 - 12.[address] RDW RBC Auto-Rto 16.7% Above high normal 547070842457 11.5 - 14.5 HHCCT Hct VFr Bld Auto 29.9% Below low normal 871863512646 39 - 54 HHCCT Platelet num Bld Auto 361Thou/uL Normal [id number] 150 - 450 HHCCT MCHC RBC Auto-mCnc 30.8g/dL Normal [id number] 30 - 36 HHCCT MCV RBC Auto 99fL Normal [id number] 80 - 100 HHCC T WBC num Bld Auto 12.5Thou/uL Above high normal 909124227464 4 - 11 HHCCT RBC num Bld Auto 3.01Mil/uL Below low normal 509096645696 4. 5 - 6.2 HHCCT Hgb Bld-mCnc 9.2g/dL Below low normal 193642840100 13 - 17 .7 HHCCT POC Glucose 129mg/dL Above high normal 981818806973 65 - 99 HHCCT Anticoagulant IV HEPARIN, UNFRACTIONATED Normal 414461354119 HHCCT LMWH PPP Msw-aCnc 0.51IU/mL Normal 797866761411 HHCCT POC Glucose 115mg/dL Above high normal 330117660406 65 - 99 HHCCT POC Glucose 125mg/dL Above high normal 518365756414 65 - 99 HHCCT Anticoagulant IV HEPARIN, UNFRACTIONATED Normal 517361767769 HHCCT LMWH PPP Msw-aCnc 0.58IU/mL Normal 215498251429 HHCCT POC Glucose 211mg/dL Above high normal 444411999897 HHCCT Anticoagulant IV HEPARIN, UNFRACTIONATED Normal [id number] HHCCT LMWH PPP Msw-aCnc 0.56IU/mL Normal 614402712388 HHCCT POC Glucose 152mg/dL Above high normal 363924330235 HHCCT Anticoagulant IV HEPARIN, UNFRACTIONATED Normal 848608758299 HHCCT POC Glucose 158mg/dL Above high normal 139702286267 HHCCT B-OH-Butyr SerPl-sCnc 2.36mmol/L Above high normal 630505311192 - 0.28 HHCCT POC Glucose 159mg/dL Above high normal 334450901830 HHCCT Chloride SerPl-sCnc 105mmol/L Normal 388651420898 98 - 107 HHCCT Glucose SerPl-mCnc 149mg/dL Above high normal 844706997001 HHCCT GFR/BSA.pred SerPlBld MWF-KPQ-ZoWPqo 14 Below low normal 372114527226 59 - HHCCT Creat SerPl-mCnc 4mg/dL Above high normal 919810482151 0. 5 - 1.3 HHCCT BUN/Creat SerPl 17Ratio Normal [id number] 10 - 25 H HCCT Anion Gap Bld-sCnc 19 Above high normal 597537429399 7 - 17 HHCCT Calcium SerPl-mCnc 7.8mg/dL Below low normal 493877585321 8 .7 - 10.5 HHCCT CO2 SerPl-sCnc 19mmol/L Below low normal 262226250615 22 - 33 HHCCT BUN SerPl-mCnc 68mg/dL Above high normal 055122415662 8 - 21 HHCCT Sodium SerPl-sCnc 143mmol/L Normal [id number] 136 - 145 HHCCT Potassium SerPl-sCnc 4.9mmol/L Normal [id number] 3.4 - 5.3 HHCCT Magnesium SerPl-mCnc 1.8mg/dL Normal [id number] 1.6 - 2.7 HHCCT Phosphate SerPl-mCnc 4.5mg/dL Normal [id number] 2.7 - 4.5 [facility] LMWH PPP Msw-aCnc 0.17IU/mL Normal [id number] [facility] MCH RBC Qn Auto 30.4pg Normal [id number] 27 - 31 [facility] PMV Bld Auto 11.3fL Normal [id number] 7.5 - 12.[address] RDW RBC Auto-Rto 16.8% Above high normal [id number] 11.5 - 14.5 [facility] Hct VFr Bld Auto 30.1% Below low normal [id number] 39 - 54 [facility] Platelet num Bld Auto 360Thou/uL Normal [id number] 150 - 450 [facility] MCHC RBC Auto-mCnc 30.9g/dL Normal [id number] 30 - 36 [facility] MCV RBC Auto 98fL Normal [id number] 80 - 100 [facility] T WBC num Bld Auto 12.4Thou/uL Above high normal [id number] 4 - 11 [facility] RBC num Bld Auto 3.06Mil/uL Below low normal [id number] 4. 5 - 6.2 [facility] Hgb Bld-mCnc 9.3g/dL Below low normal [id number] 13 - 17 .7 [facility] POC Glucose 155mg/dL Above high normal [id number] 65 - 99 [facility] Phosphate SerPl-mCnc 3.8mg/dL Normal [id number] 2.7 - 4.5 [facility] Chloride SerPl-sCnc 107mmol/L Normal [id number] 98 - 107 [facility] Glucose SerPl-mCnc 128mg/dL Above high normal [id number] 65 - 99 [facility] GFR/BSA.pred SerPlBld VXB-LUV-PqKDmz 15 Below low normal [id number] 59 - [facility] Creat SerPl-mCnc 3.8mg/dL Above high normal [id number] 0. 5 - 1.3 [facility] BUN/Creat SerPl 18Ratio Normal [id number] 10 - 25 [facility] Anion Gap Bld-sCnc 18 Above high normal [id number] 7 - 17 [facility] Calcium SerPl-mCnc 7.4mg/dL Below low normal [id number] 8 .7 - 10.5 [facility] CO2 SerPl-sCnc 18mmol/L Below low normal [id number] 22 - 33 [facility] BUN SerPl-mCnc 67mg/dL Above high normal [id number] 8 - 21 [facility] Sodium SerPl-sCnc 143mmol/L Normal [id number] 136 - 145 [facility] Potassium SerPl-sCnc 4.4mmol/L Normal [id number] 3.4 - 5.3 [facility] Magnesium SerPl-mCnc 1.8mg/dL Normal [id number] 1.6 - 2.7 [facility] LMWH PPP Msw-aCnc 0.34IU/mL Normal [id number] [facility] Anticoagulant IV HEPARIN, UNFRACTIONATED Normal [id number] [facility] POC Glucose 155mg/dL Above high normal [id number] 65 - 99 [facility] Magnesium SerPl-mCnc 1.8mg/dL Normal [id number] 1.6 - 2.7 [facility] Phosphate SerPl-mCnc 3.9mg/dL Normal [id number] 2.7 - 4.5 [facility] Chloride SerPl-sCnc 109mmol/L Above high normal [id number] 98 - 107 [facility] Glucose SerPl-mCnc 173mg/dL Above high normal [id number] 65 - 99 [facility] GFR/BSA.pred SerPlBld YLR-UXD-IzUTae 14 Below low normal [id number] 59 - [facility] Creat SerPl-mCnc 4.1mg/dL Above high normal [id number] 0. 5 - 1.3 [facility] BUN/Creat SerPl 17Ratio Normal [id number] 10 - 25 [facility] Anion Gap Bld-sCnc 15 Normal [id number] 7 - 17 [facility] Calcium SerPl-mCnc 7mg/dL Below low normal [id number] 8 .7 - 10.5 [facility] CO2 SerPl-sCnc 21mmol/L Below low normal [id number] 22 - 33 [facility] BUN SerPl-mCnc 71mg/dL Above high normal [id number] 8 - 21 [facility] Sodium SerPl-sCnc 145mmol/L Normal [id number] 136 - 145 [facility] Potassium SerPl-sCnc 5mmol/L Normal [id number] 3.4 - 5.3 [facility] POC Glucose 168mg/dL Above high normal [id number] 65 - 99 [facility] Anticoagulant IV HEPARIN, UNFRACTIONATED Normal [id number] [facility] LMWH PPP Msw-aCnc 0.42IU/mL Normal [id number] [facility] POC Glucose 158mg/dL Above high normal [id number] 65 - 99 [facility] PTH-Intact SerPl-mCnc 579pg/mL Above high normal [id number] 15 - 65 [facility] Ca-I SerPl-mCnc 0.88mmol/L Below low normal [id number] 1 .17 - 1.33 [facility] Calcium SerPl-mCnc 7.4mg/dL Below low normal [id number] 8 .7 - 10.5 [facility] Albumin SerPl-mCnc 3.5g/dL Normal [id number] 3.4 - 4. 8 [facility] Anticoagulant IV HEPARIN, UNFRACTIONATED Normal [id number] [facility] POC Glucose 82mg/dL Normal [id number] 65 - 99 [facility] Magnesium SerPl-mCnc 1.8mg/dL Normal [id number] 1.6 - 2.7 [facility] Chloride SerPl-sCnc 110mmol/L Above high normal [id number] 98 - 107 [facility] Glucose SerPl-mCnc 66mg/dL Normal 754553930548 65 - 99 [facility]CT GFR/BSA.pred SerPlBld SJS-CSR-BwOVgo 14 Below low normal 023385510524 59 - HHCCT Creat SerPl-mCnc 4.1mg/dL Above high normal 567313942598 0. 5 - 1.3 H[facility]CT BUN/Creat SerPl 18Ratio Normal [id number] 10 - 25 H HCCT Anion Gap Bld-sCnc 19 Above high normal 431877978956 7 - 17 [facility]CT Calcium SerPl-mCnc 7.3mg/dL Below low normal [id number] 8 .7 - 10.5 H[facility]CT CO2 SerPl-sCnc 18mmol/L Below low normal 176278159841 22 - 33 [facility]CT BUN SerPl-mCnc 74mg/dL Above high normal 350497584055 8 - 21 H[facility]CT Sodium SerPl-sCnc 147mmol/L Above high normal 991886338797 1 36 - 145 H[facility]CT Potassium SerPl-sCnc 4mmol/L Normal [id number] 3.4 - 5.3 HHCCT HDLc SerPl 3.7Ratio Normal 038958115340 0 - 5 HHCCT LDLc SerPl Calc-mCnc 52mg/dL Normal 329915497951 - 130 H[facility]CT HDLc SerPl-mCnc 30mg/dL Below low normal 889972836838 39 - HHCCT Trigl SerPl-mCnc 141mg/dL Normal 798157851347 - 150 H[facility]CT Cholest SerPl-mCnc 110mg/dL Normal [id number] - 200 [facility]CT Phosphate SerPl-mCnc 3.9mg/dL Normal [id number] 2.7 - 4.5 H[facility]CT MCH RBC Qn Auto 30.3pg Normal [id number] 27 - 31 H HCCT PMV Bld Auto 11.6fL Normal [id number] 7.5 - 12.[address] RDW RBC Auto-Rto 16.4% Above high normal [id number] 11.5 - 14.5 H[facility]CT Hct VFr Bld Auto 30.5% Below low normal 203811631036 39 - 54 [facility] Platelet num Bld Auto 374Thou/uL Normal [id number] 150 - 450 H[facility]CT MCHC RBC Auto-mCnc 31.5g/dL Normal [id number] 30 - 36 H[facility]CT MCV RBC Auto 96fL Normal [id number] 80 - 100 HH[facility] T WBC num Bld Auto 11.2Thou/uL Above high normal 024189749491 4 - 11 HHCCT RBC num Bld Auto 3.17Mil/uL Below low normal [id number] 4. 5 - 6.2 HHCCT Hgb Bld-mCnc 9.6g/dL Below low normal [id number] 13 - 17 .7 HHCCT LMWH PPP Msw-aCnc 0.54IU/mL Normal 628975053879 HHCCT POC Glucose 83mg/dL Normal 778716006257 - HHCCT Anticoagulant IV HEPARIN, UNFRACTIONATED Normal 099753973622 HHCCT POC Glucose 145mg/dL Above high normal 759393685852 HHCCT POC Glucose 165mg/dL Above high normal [id number] HHCCT POC Glucose 154mg/dL Above high normal 816567433541 HHCCT POC Glucose 139mg/dL Above high normal 232194872575 HHCCT Magnesium SerPl-mCnc 1.7mg/dL Normal 088380572821 1.6 - 2.7 HHCCT Chloride SerPl-sCnc 110mmol/L Above high normal 687072832046 98 - 107 [facility]CT Glucose SerPl-mCnc 124mg/dL Above high normal 936450354364 HHCCT GFR/BSA.pred SerPlBld MAR-TUC-MqHWcl 13 Below low normal [id number] 59 - HHCCT Creat SerPl-mCnc 4.3mg/dL Above high normal 738042545511 0. 5 - 1.3 HHCCT BUN/Creat SerPl 19Ratio Normal [id number] 10 - 25 H HCCT Anion Gap Bld-sCnc 18 Above high normal 148936074848 7 - 17 H[facility]CT Calcium SerPl-mCnc 7.1mg/dL Below low normal 051736148495 8 .7 - 10.5 HHCCT CO2 SerPl-sCnc 17mmol/L Below low normal 482285295147 22 - 33 HHCCT BUN SerPl-mCnc 82mg/dL Above high normal 351485061955 8 - 21 HHCCT Sodium SerPl-sCnc 145mmol/L Normal 502092435071 136 - 145 H[facility]CT Potassium SerPl-sCnc 4.4mmol/L Normal [id number] 3.4 - 5.3 HHCCT MCH RBC Qn Auto 30pg Normal [id number] 27 - 31 H HCCT PMV Bld Auto 11.3fL Normal [id number] 7.5 - 12.[address] RDW RBC Auto-Rto 16.2% Above high normal [id number] 11.5 - 14.5 HHCCT Hct VFr Bld Auto 30.3% Below low normal 424178094582 39 - 54 [facility]CT Platelet num Bld Auto 337Thou/uL Normal [id number] 150 - 450 HHCCT MCHC RBC Auto-mCnc 31g/dL Normal [id number] 30 - 36 HHCCT MCV RBC Auto 97fL Normal [id number] 80 - 100 [facility] T WBC num Bld Auto 10.7Thou/uL Normal [id number] 4 - 11 HHCCT RBC num Bld Auto 3.13Mil/uL Below low normal 090819288881 4. 5 - 6.2 HHCCT Hgb Bld-mCnc 9.4g/dL Below low normal 719920132078 13 - 17 .7 [facility] LMWH PPP Msw-aCnc 0.37IU/mL Normal 954713781766 CCT POC Glucose 122mg/dL Above high normal [id number] 65 - 99 CCT Anticoagulant IV HEPARIN, UNFRACTIONATED Normal 700365053976 CCT POC Glucose 190mg/dL Above high normal 590519407721 65 - 99 H[facility]CT POC Glucose 140mg/dL Above high normal 886790942266 65 - 99 CCT POC Glucose 270mg/dL Above high normal 326925020349 65 - 99 HHCCT POC Glucose 242mg/dL Above high normal 861820915431 65 - 99 HHCCT LMWH PPP Msw-aCnc 0.42IU/mL Normal 488265282979 CCT POC Glucose 219mg/dL Above high normal 789772727104 65 - 99 CCT POC Glucose 181mg/dL Above high normal 036734106824 65 - 99 HHCCT Chloride SerPl-sCnc 109mmol/L Above high normal 785393836902 98 - 107 CCT Glucose SerPl-mCnc 193mg/dL Above high normal 248104496676 65 - 99 CCT GFR/BSA.pred SerPlBld CYD-OWD-KuFTmn 13 Below low normal [id number] 59 - HHCCT Creat SerPl-mCnc 4.3mg/dL Above high normal [id number] 0. 5 - 1.3 CCT BUN/Creat SerPl 19Ratio Normal [id number] 10 - 25 H HCCT Anion Gap Bld-sCnc 16 Normal [id number] 7 - 17 HHCCT Calcium SerPl-mCnc 7.1mg/dL Below low normal [id number] 8 .7 - 10.5 HHCCT CO2 SerPl-sCnc 15mmol/L Below low normal [id number] 22 - 33 HHCCT BUN SerPl-mCnc 83mg/dL Above high normal 922308012021 8 - 21 HHCCT Sodium SerPl-sCnc 140mmol/L Normal [id number] 136 - 145 HHCCT Potassium SerPl-sCnc 4.5mmol/L Normal [id number] 3.4 - 5.3 HHCCT Anticoagulant IV HEPARIN, UNFRACTIONATED Normal 655543673446 HHCCT LMWH PPP Msw-aCnc 0.35IU/mL Normal [id number] HHCCT MCH RBC Qn Auto 30pg Normal [id number] 27 - 31 H HCCT PMV Bld Auto 11fL Normal [id number] 7.5 - 12.[address] RDW RBC Auto-Rto 16.3% Above high normal [id number] 11.5 - 14.5 HHCCT Hct VFr Bld Auto 28.9% Below low normal 222995670936 39 - 54 H[facility]CT Platelet num Bld Auto 299Thou/uL Normal [id number] 150 - 450 HHCCT MCHC RBC Auto-mCnc 30.8g/dL Normal [id number] 30 - 36 HHCCT MCV RBC Auto 97fL Normal [id number] 80 - 100 [facility] T WBC num Bld Auto 10.8Thou/uL Normal [id number] 4 - 11 HHCCT RBC num Bld Auto 2.97Mil/uL Below low normal 644053899435 4. 5 - 6.2 HHCCT Hgb Bld-mCnc 8.9g/dL Below low normal 709942384132 13 - 17 .7 HHCCT POC Glucose 198mg/dL Above high normal 813405701240 65 - 99 HHCCT Anticoagulant IV HEPARIN, UNFRACTIONATED Normal 942308542555 HHCCT LMWH PPP Msw-aCnc 0.29IU/mL Normal 801095362450 HHCCT POC Glucose 218mg/dL Above high normal 587566358755 HHCCT Anticoagulant IV HEPARIN, UNFRACTIONATED Normal 293008156832 HHCCT POC Glucose 175mg/dL Above high normal 434420012633 HHCCT POC Glucose 222mg/dL Above high normal 867591590945 HHCCT POC Glucose 210mg/dL Above high normal 876658611928 HHCCT pO2 BldV 49mmHG Normal 096766592215 0 - 60 HHCCT pH BldV 7.29 Below low normal 551067068979 7.33 - 7.43 HHCCT pCO2 BldV 39mmHG Normal 662425837135 35 - 50 HHCCT CO2 BldV-sCnc 20mmol/L Below low normal 193402878321 23 - 2 9 HHCCT Base deficit BldA-sCnc 7.2mmol/L Normal 255088267562 HHCCT Respiratory Information NASAL 4 L/MIN Normal 625867534792 HHCCT POC Glucose 187mg/dL Above high normal 165091329044 HHCCT Lactate SerPl-sCnc 0.8mmol/L Normal [id number] 0.5 - 1. 9 HHCCT POC Glucose 156mg/dL Above high normal 972889295115 HHCCT POC Glucose 148mg/dL Above high normal 210184126812 HHCCT POC Glucose 132mg/dL Above high normal 647698379981 HHCCT POC Glucose 219mg/dL Above high normal 746560519660 HHCCT Chloride SerPl-sCnc 106mmol/L Normal [id number] 98 - 107 HHCCT Glucose SerPl-mCnc 183mg/dL Above high normal 168804582220 HHCCT GFR/BSA.pred SerPlBld MOU-JKR-NuPCow 12 Below low normal [id number] 59 - HHCCT Creat SerPl-mCnc 4.7mg/dL Above high normal [id number] 0. 5 - 1.3 HHCCT BUN/Creat SerPl 18Ratio Normal [id number] 10 - 25 H HCCT Anion Gap Bld-sCnc 20 Above high normal 157545600245 7 - 17 HHCCT Calcium SerPl-mCnc 7.2mg/dL Below low normal [id number] 8 .7 - 10.5 HHCCT CO2 SerPl-sCnc 14mmol/L Below low normal 243594604101 22 - 33 HHCCT BUN SerPl-mCnc 86mg/dL Above high normal 497851427162 8 - 21 HHCCT Sodium SerPl-sCnc 140mmol/L Normal [id number] 136 - 145 HHCCT Potassium SerPl-sCnc 4.4mmol/L Normal [id number] 3.4 - 5.3 HHCCT Phosphate SerPl-mCnc 4.4mg/dL Normal [id number] 2.7 - 4.5 HHCCT Magnesium SerPl-mCnc 1.6mg/dL Normal [id number] 1.6 - 2.7 HHCCT LMWH PPP Msw-aCnc 0.45IU/mL Normal [id number] HHCCT Imm Granulocytes/leuk NFr Bld Auto 0.6% Normal 990225894045 HHCCT Lymphocytes/leuk NFr Bld Auto 11.6% Normal [id number] HHCCT PMV Bld Auto 11.3fL Normal [id number] 7.5 - 12.[address] Monocytes num Bld Auto 0.77Thou/uL Normal 598410250363 0.2 - 1.5 HHCCT Hct VFr Bld Auto 28.6% Below low normal [id number] 39 - 54 HHCCT Neutrophils num Bld Auto 9.25Thou/uL Above high normal 831213534655 2 - 7.5 HHCCT Neutrophils/leuk NFr Bld Auto 80.7% Normal 255414548562 HHCCT Basophils/leuk NFr Bld Auto 0.2% Normal [id number] HHCCT Basophils num Bld Auto 0.02Thou/uL Normal [id number] 0 - 0.2 HHCCT Monocytes/leuk NFr Bld Auto 6.7% Normal [id number] HHCCT Eosinophil num Bld Auto 0.02Thou/uL Normal [id number] 0 - 0.7 HHCCT MCH RBC Qn Auto 30.4pg Normal [id number] 27 - 31 H HCCT Eosinophil/leuk NFr Bld Auto 0.2% Normal [id number] HHCCT Imm Granulocytes num Bld Auto 0.07Thou/uL Normal [id number] 0 - 0.1 HHCCT RDW RBC Auto-Rto 16.5% Above high normal 606591064107 11.5 - 14.5 HHCCT Platelet num Bld Auto 271Thou/uL Normal [id number] 150 - 450 HHCCT MCHC RBC Auto-mCnc 31.1g/dL Normal [id number] 30 - 36 HHCCT MCV RBC Auto 98fL Normal [id number] 80 - 100 [facility] T WBC num Bld Auto 11.5Thou/uL Above high normal [id number] 4 - 11 HHCCT RBC num Bld Auto 2.93Mil/uL Below low normal [id number] 4. 5 - 6.2 HHCCT Hgb Bld-mCnc 8.9g/dL Below low normal 249464295800 13 - 17 .7 HHCCT Lymphocytes num Bld Auto 1.33Thou/uL Below low normal [id number] 1.5 - 4.5 HHCCT Anticoagulant IV HEPARIN, UNFRACTIONATED Normal [id number] HHCCT POC Glucose 165mg/dL Above high normal 418657366427 65 - 99 HHCCT POC Glucose 114mg/dL Above high normal 329168106052 65 - 99 HHCCT Chloride SerPl-sCnc 109mmol/L Above high normal [id number] 98 - 107 HHCCT Glucose SerPl-mCnc 126mg/dL Above high normal 437615359397 65 - 99 HHCCT GFR/BSA.pred SerPlBld TLG-VSH-MlLCch 12 Below low normal 941281673744 59 - HHCCT Creat SerPl-mCnc 4.6mg/dL Above high normal [id number] 0. 5 - 1.3 HHCCT BUN/Creat SerPl 18Ratio Normal [id number] 10 - 25 H HCCT Anion Gap Bld-sCnc 19 Above high normal 147243416324 7 - 17 HHCCT Calcium SerPl-mCnc 7mg/dL Below low normal 103403512969 8 .7 - 10.5 HHCCT CO2 SerPl-sCnc 15mmol/L Below low normal [id number] 22 - 33 HHCCT BUN SerPl-mCnc 81mg/dL Above high normal 889672794994 8 - 21 HHCCT Sodium SerPl-sCnc 143mmol/L Normal 254508931057 136 - 145 HHCCT Potassium SerPl-sCnc 4.4mmol/L Normal [id number] 3.4 - 5.3 HHCCT POC Glucose 159mg/dL Above high normal [id number] 65 - 99 HHCCT B-OH-Butyr SerPl-sCnc 0.26mmol/L Normal [id number] - 0.28 HHCCT LMWH PPP Msw-aCnc 0.52IU/mL Normal 440811261119 HHCCT Troponin T SerPl-mCnc 4276ng/L Critically high 168512394520 - 23 HHCCT Delta 2446 Above high normal 168523845691 - 3 HHCCT Hct VFr Bld Auto 32.3% Below low normal 516517518836 39 - 54 HHCCT Hgb Bld-mCnc 9.9g/dL Below low normal 941811985540 13 - 17 .7 HHCCT pO2 BldV 30mmHG Normal [id number] 0 - 60 HHCCT pH BldV 7.32 Below low normal 999217388669 7.33 - 7.43 HHCCT pCO2 BldV 31mmHG Below low normal 591223743697 35 - 50 HHCCT CO2 BldV-sCnc 17mmol/L Below low normal 711333728562 23 - 2 9 HHCCT Base deficit BldA-sCnc 9mmol/L Normal 359765911365 HHCCT Anticoagulant IV HEPARIN, UNFRACTIONATED Normal [id number] HHCCT Respiratory Information VM 50% Normal 008249771493 HHCCT POC Glucose 133mg/dL Above high normal 717988466265 65 - 99 HHCCT Chloride SerPl-sCnc 110mmol/L Above high normal 119268545704 98 - 107 HHCCT Glucose SerPl-mCnc 128mg/dL Above high normal [id number] 65 - 99 HHCCT GFR/BSA.pred SerPlBld NGC-PSL-JrQDll 12 Below low normal 552989697479 59 - HHCCT Creat SerPl-mCnc 4.8mg/dL Above high normal [id number] 0. 5 - 1.3 HHCCT BUN/Creat SerPl 18Ratio Normal [id number] 10 - 25 H HCCT Anion Gap Bld-sCnc 18 Above high normal 041932298244 7 - 17 HHCCT Calcium SerPl-mCnc 7mg/dL Below low normal 075424273420 8 .7 - 10.5 HHCCT CO2 SerPl-sCnc 14mmol/L Below low normal 000147245534 22 - 33 HHCCT BUN SerPl-mCnc 84mg/dL Above high normal 646591512863 8 - 21 HHCCT Sodium SerPl-sCnc 142mmol/L Normal [id number] 136 - 145 HHCCT Potassium SerPl-sCnc 4.3mmol/L Normal [id number] 3.4 - 5.3 HHCCT Est. average glucose Bld gHb Est-mCnc 203mg/dL Normal [id number] HHCCT Hgb A1c MFr Bld 8.7% Above high normal 031627199885 - 5 .7 HHCCT POC Glucose 145mg/dL Above high normal 548634484221 65 - 99 HHCCT pO2 BldV 53mmHG Normal 374244501362 0 - 60 HHCCT pH BldV 7.32 Below low normal 871567596563 7.33 - 7.43 HHCCT pCO2 BldV 33mmHG Below low normal 061164058034 35 - 50 HHCCT CO2 BldV-sCnc 18mmol/L Below low normal 691480549043 23 - 2 9 HHCCT Base deficit BldA-sCnc 8.3mmol/L Normal [id number] HHCCT Respiratory Information VM 50% Normal 375017644120 HHCCT POC Glucose 131mg/dL Above high normal 839330228591 65 - 99 HHCCT POC Glucose 146mg/dL Above high normal [id number] 65 - 99 HHCCT Chloride SerPl-sCnc 109mmol/L Above high normal [id number] 98 - 107 HHCCT Glucose SerPl-mCnc 110mg/dL Above high normal 780783710436 65 - 99 HHCCT GFR/BSA.pred SerPlBld FEG-DLH-ZaWMph 12 Below low normal 685637945721 59 - HHCCT Creat SerPl-mCnc 4.8mg/dL Above high normal 821141376662 0. 5 - 1.3 HHCCT BUN/Creat SerPl 18Ratio Normal [id number] 10 - 25 H HCCT Anion Gap Bld-sCnc 18 Above high normal 734501291737 7 - 17 HHCCT Calcium SerPl-mCnc 7.2mg/dL Below low normal 219359102802 8 .7 - 10.5 HHCCT CO2 SerPl-sCnc 14mmol/L Below low normal 364366213139 22 - 33 HHCCT BUN SerPl-mCnc 84mg/dL Above high normal 225212853465 8 - 21 HHCCT Sodium SerPl-sCnc 141mmol/L Normal [id number] 136 - 145 HHCCT Potassium SerPl-sCnc 4.6mmol/L Normal 842354255788 3.4 - 5.3 HHCCT LMWH PPP Msw-aCnc 0.36IU/mL Normal 687865379225 HHCCT POC Glucose 118mg/dL Above high normal 621905387536 65 - 99 HHCCT Anticoagulant HEPARIN, LOW MOLECULAR WEIGHT Normal [id number] HHCCT Troponin T SerPl-mCnc 4239ng/L Critically high 282165184157 - 23 HHCCT Delta 2409 Above high normal 871336759125 - 3 HHCCT POC Glucose 148mg/dL Above high normal 583615687104 65 - 99 HHCCT POC Glucose 169mg/dL Above high normal [id number] 65 - 99 HHCCT Chloride SerPl-sCnc 109mmol/L Above high normal [id number] 98 - 107 HHCCT Glucose SerPl-mCnc 143mg/dL Above high normal 203842999098 65 - 99 HHCCT GFR/BSA.pred SerPlBld AXQ-MIN-ZcCNzi 11 Below low normal 185051151415 59 - HHCCT Creat SerPl-mCnc 5mg/dL Above high normal 540192644200 0. 5 - 1.3 HHCCT BUN/Creat SerPl 17Ratio Normal [id number] 10 - 25 H HCCT Anion Gap Bld-sCnc 19 Above high normal 554463541984 7 - 17 HHCCT Calcium SerPl-mCnc 6.8mg/dL Critically low 697591307439 8.7 - 10.5 HHCCT CO2 SerPl-sCnc 14mmol/L Below low normal 845966293281 22 - 33 HHCCT BUN SerPl-mCnc 84mg/dL Above high normal 884617392927 8 - 21 HHCCT Sodium SerPl-sCnc 142mmol/L Normal 533481411109 136 - 145 HHCCT Potassium SerPl-sCnc 4.3mmol/L Normal [id number] 3.4 - 5.3 HHCCT POC Glucose 154mg/dL Above high normal [id number] 65 - 99 HHCCT POC Glucose 192mg/dL Above high normal 933591773701 65 - 99 HHCCT Troponin T SerPl-mCnc 4171ng/L Critically high 988440547837 - 23 HHCCT Delta 2341 Above high normal 757151305100 - 3 HHCCT Magnesium SerPl-mCnc 1.7mg/dL Normal [id number] 1.6 - 2.7 HHCCT Phosphate SerPl-mCnc 4.2mg/dL Normal [id number] 2.7 - 4.5 HHCCT MCH RBC Qn Auto 30.6pg Normal [id number] 27 - 31 H HCCT PMV Bld Auto 11.5fL Normal [id number] 7.5 - 12.[address] RDW RBC Auto-Rto 16.2% Above high normal 619469254985 11.5 - 14.5 HHCCT Hct VFr Bld Auto 27% Below low normal 945673382576 39 - 54 HHCCT Platelet num Bld Auto 263Thou/uL Normal [id number] 150 - 450 HHCCT MCHC RBC Auto-mCnc 31.5g/dL Normal 155655765793 30 - 36 HHCCT MCV RBC Auto 97fL Normal 904653926362 80 - 100 [facility] T WBC num Bld Auto 15.9Thou/uL Above high normal 126396316239 4 - 11 HHCCT RBC num Bld Auto 2.78Mil/uL Below low normal 509982411621 4. 5 - 6.2 HHCCT Hgb Bld-mCnc 8.5g/dL Below low normal [id number] 13 - 17 .7 HHCCT LMWH PPP Msw-aCnc 0.25IU/mL Normal 770305570050 HHCCT Anticoagulant HEPARIN, LOW MOLECULAR WEIGHT Normal 543646794805 HHCCT POC Glucose 160mg/dL Above high normal 025134691683 65 - 99 HHCCT Chloride SerPl-sCnc 110mmol/L Above high normal 547742260301 98 - 107 HHCCT Glucose SerPl-mCnc 103mg/dL Above high normal 651521132695 65 - 99 HHCCT GFR/BSA.pred SerPlBld VLH-PFT-KhWEvz 11 Below low normal 461563355373 59 - HHCCT Creat SerPl-mCnc 5mg/dL Above high normal 463659921102 0. 5 - 1.3 HHCCT BUN/Creat SerPl 18Ratio Normal [id number] 10 - 25 H HCCT Anion Gap Bld-sCnc 20 Above high normal 731341625193 7 - 17 HHCCT Calcium SerPl-mCnc 7mg/dL Below low normal 157167536578 8 .7 - 10.5 HHCCT CO2 SerPl-sCnc 13mmol/L Below low normal 947654224076 22 - 33 HHCCT BUN SerPl-mCnc 88mg/dL Above high normal 741046397908 8 - 21 HHCCT Sodium SerPl-sCnc 143mmol/L Normal [id number] 136 - 145 HHCCT Potassium SerPl-sCnc 4.4mmol/L Normal [id number] 3.4 - 5.3 HHCCT POC Glucose 106mg/dL Above high normal 100067174743 65 - 99 HHCCT pO2 BldV 185mmHG Above high normal 114213278930 0 - 60 HHCCT pH BldV 7.35 Normal 804167406458 7.33 - 7.43 HHCCT pCO2 BldV 27mmHG Below low normal 371572013450 35 - 50 HHCCT CO2 BldV-sCnc 15mmol/L Below low normal 759616472902 23 - 2 9 HHCCT Base deficit BldA-sCnc 9.7mmol/L Normal 210224024826 HHCCT POC Glucose 117mg/dL Above high normal 524318412418 65 - 99 HHCCT Chloride SerPl-sCnc 111mmol/L Above high normal 338428279042 98 - 107 HHCCT Glucose SerPl-mCnc 113mg/dL Above high normal 483924712191 65 - 99 HHCCT GFR/BSA.pred SerPlBld ILA-FXH-UaSIgb 11 Below low normal 820922241232 59 - HHCCT Creat SerPl-mCnc 5.2mg/dL Above high normal 115370821718 0. 5 - 1.3 HHCCT BUN/Creat SerPl 18Ratio Normal [id number] 10 - 25 H HCCT Anion Gap Bld-sCnc 20 Above high normal 077792188207 7 - 17 HHCCT Calcium SerPl-mCnc 7.3mg/dL Below low normal 101119653377 8 .7 - 10.5 HHCCT CO2 SerPl-sCnc 14mmol/L Below low normal 374492471006 22 - 33 HHCCT BUN SerPl-mCnc 91mg/dL Above high normal 193699607728 8 - 21 HHCCT Sodium SerPl-sCnc 145mmol/L Normal [id number] 136 - 145 HHCCT Potassium SerPl-sCnc 4.2mmol/L Normal 753842835012 3.4 - 5.3 HHCCT Lactate SerPl-sCnc 1.2mmol/L Normal 367395048351 0.5 - 1. 9 HHCCT POC Glucose 123mg/dL Above high normal 714346912939 65 - 99 [facility] POC Glucose 155mg/dL Above high normal 109019887775 65 - 99 [facility] Monocytes/leuk NFr Fld 21% Normal 338940696229 [facility] Histiocytes/leuk NFr Fld 46% Normal 607925477404 [facility] Mesothl Cell/leuk NFr Fld Manual 3% Normal 936050303285 [facility] Appearance Fld Normal 732306525741 [facility] Color Fld Normal 501054393072 [facility] Cell Fract Fld-Imp Normal 297701961892 [facility] Neutrophil, Fluid 3% Normal 770119415912 [facility] Lymphocyte, Fluid 27% Normal 522043178806 [facility] RBC num Fld Auto 10944/CUMM Normal 712006851713 [facility] Nuc cell num Fld Auto 435/CUMM Normal 468810308233 [facility] Monocytes/leuk NFr Fld 15% Normal 841058371276 [facility] Histiocytes/leuk NFr Fld 27% Normal 361351603407 [facility] Basophils/leuk NFr Fld Manual 1% Normal 497023700277 [facility] Appearance Fld Normal 293645951860 HH CCT Color Fld Normal 088892928479 [facility] Cell Fract Fld-Imp Normal 095380368160 [facility] Neutrophil, Fluid 0% Normal 242228367758 [facility] Lymphocyte, Fluid 57% Normal 691242599492 [facility] RBC num Fld Auto 38794/CUMM Normal 223661859964 [facility] Nuc cell num Fld Auto 721/CUMM Normal 140250680472 [facility] POC Glucose 168mg/dL Above high normal 935928681959 65 - 99 HHCCT Chloride SerPl-sCnc 110mmol/L Above high normal 444561648101 98 - 107 HHCCT Glucose SerPl-mCnc 154mg/dL Above high normal 341737789383 65 - 99 HHCCT GFR/BSA.pred SerPlBld ARP-CNB-QkQQrp 11 Below low normal 233824990582 59 - HHCCT Creat SerPl-mCnc 5.1mg/dL Above high normal [id number] 0. 5 - 1.3 HHCCT BUN/Creat SerPl 17Ratio Normal [id number] 10 - 25 H HCCT Anion Gap Bld-sCnc 20 Above high normal 532117229062 7 - 17 HHCCT Calcium SerPl-mCnc 7mg/dL Below low normal 967378179030 8 .7 - 10.5 HHCCT CO2 SerPl-sCnc 14mmol/L Below low normal 951113181263 22 - 33 HHCCT BUN SerPl-mCnc 87mg/dL Above high normal 003467687680 8 - 21 HHCCT Sodium SerPl-sCnc 144mmol/L Normal 175270451530 136 - 145 HHCCT Potassium SerPl-sCnc 4.7mmol/L Normal 425929924822 3.4 - 5.3 HHCCT Prot Fld-mCnc 2.2g/dL Normal [id number] [facility] CT LDH Fld L to P-cCnc 143U/L Normal 327310406864 HHCCT Glucose Fld-mCnc 146mg/dL Normal 313893605875 HHCCT pO2 BldV 182mmHG Above high normal 199580118257 0 - 60 HHCCT pH BldV 7.31 Below low normal 353751704755 7.33 - 7.43 HHCCT pCO2 BldV 32mmHG Below low normal 259767999355 35 - 50 HHCCT CO2 BldV-sCnc 16mmol/L Below low normal 134012405559 23 - 2 9 HHCCT Base deficit BldA-sCnc 9.7mmol/L Normal 054121491344 HHCCT Prot Fld-mCnc 2.2g/dL Normal [id number] [facility] pH Fld 7.33 Normal [id number] [facility] Glucose Fld-mCnc 151mg/dL Normal [id number] [facility] POC Glucose 166mg/dL Above high normal [id number] 65 - 99 [facility] pH Fld 7.34 Normal [id number] [facility] Fluid Source RIGHT PLEURAL EFFUSION Normal [id number] [facility] Fluid Source RIGHT PLEURAL EFFUSION Normal [id number] [facility] Fluid Source RIGHT PLEURAL EFFUSION Normal [id number] [facility] Chloride SerPl-sCnc 110mmol/L Above high normal [id number] 98 - 107 [facility] Glucose SerPl-mCnc 112mg/dL Above high normal 626068254035 65 - 99 [facility] GFR/BSA.pred SerPlBld [id number] 11 Below low normal 117888794115 59 - HHCCT Creat SerPl-mCnc 5.2mg/dL Above high normal 283630261328 0. 5 - 1.3 [facility] BUN/Creat SerPl 16Ratio Normal [id number] 10 - 25 H [facility] Anion Gap Bld-sCnc 20 Above high normal 080073811131 7 - 17 [facility] Calcium SerPl-mCnc 7.1mg/dL Below low normal [id number] 8 .7 - 10.5 [facility] CO2 SerPl-sCnc 15mmol/L Below low normal 407405252878 22 - 33 [facility] BUN SerPl-mCnc 85mg/dL Above high normal 702836610439 8 - 21 [facility] Sodium SerPl-sCnc 145mmol/L Normal 111565158888 136 - 145 [facility]CT Potassium SerPl-sCnc 4.4mmol/L Normal 633549184240 3.4 - 5.3 [facility] B-OH-Butyr SerPl-sCnc 0.45mmol/L Above high normal 280906573315 - 0.28 [facility]CT LMWH PPP Msw-aCnc 0.23IU/mL Normal 379064328983 [facility] POC Glucose 167mg/dL Above high normal 783253067975 65 - 99 [facility] POC Glucose 119mg/dL Above high normal [id number] 65 - H[facility] Fluid Source PLEURAL Normal [id number] [facility] T Fluid Source PLEURAL Normal [id number] [facility] T Fluid Source PLEURAL Normal [id number] [facility] T Fluid Source PLEURAL Normal [id number] [facility] T pO2 BldV 131mmHG Above high normal 487568681165 0 - 60 [facility] pH BldV 7.32 Below low normal 862941550971 7.33 - 7.43 [facility] pCO2 BldV 31mmHG Below low normal 569121636475 35 - 50 [facility] CO2 BldV-sCnc 17mmol/L Below low normal 127568410300 23 - 2 9 [facility] Base deficit BldA-sCnc 9.2mmol/L Normal 032043351402 [facility] Respiratory Information VM 50% Normal 543063801730 [facility] Respiratory Information VM 50% Normal 384111689920 H[facility] POC Glucose 106mg/dL Above high normal 427945818152 - 99 H[facility]CT Respiratory Information NASAL 6 L/MIN Normal 052838975566 [facility]CT POC Glucose 105mg/dL Above high normal 256437924552 65 - 99 [facility] POC Glucose 92mg/dL Normal 65 - 99 H[facility]CT POC Glucose 102mg/dL Above high normal 870316238655 65 - 99 H[facility]CT POC Glucose 160mg/dL Above high normal 121560215071 65 - 99 H[facility]CT Chloride SerPl-sCnc 111mmol/L Above high normal 939487385158 98 - 107 [facility]CT Glucose SerPl-mCnc 212mg/dL Above high normal 627801163914 65 - 99 H[facility]CT GFR/BSA.pred SerPlBld [id number] 11 Below low normal 816454860963 59 - HHCCT Creat SerPl-mCnc 5mg/dL Above high normal [id number] 0. 5 - 1.3 H[facility] BUN/Creat SerPl 17Ratio Normal [id number] 10 - 25 H HCCT Anion Gap Bld-sCnc 20 Above high normal 084462314993 7 - 17 [facility]CT Calcium SerPl-mCnc 7.1mg/dL Below low normal 983823989446 8 .7 - 10.5 [facility] CO2 SerPl-sCnc 14mmol/L Below low normal 176453213203 22 - 33 [facility]CT BUN SerPl-mCnc 84mg/dL Above high normal 951945650817 8 - 21 HHCCT Sodium SerPl-sCnc 145mmol/L Normal [id number] 136 - 145 [facility] Potassium SerPl-sCnc 4.2mmol/L Normal [id number] 3.4 - 5.3 [facility] POC Glucose 215mg/dL Above high normal 275543856262 65 - 99 [facility] Anticoagulant IV HEPARIN, UNFRACTIONATED Normal [id number] H[facility]CT LMWH PPP Msw-aCnc 0.47IU/mL Normal 927095453241 [facility] Chloride SerPl-sCnc 108mmol/L Above high normal 326414747727 98 - 107 [facility] Glucose SerPl-mCnc 304mg/dL Above high normal 594918935015 65 - 99 [facility] GFR/BSA.pred SerPlBld HST-DTD-SnAHae 11 Below low normal 123213137940 59 - HHCCT Creat SerPl-mCnc 5mg/dL Above high normal 886337489252 0. 5 - 1.3 [facility] BUN/Creat SerPl 17Ratio Normal [id number] 10 - 25 H [facility] Anion Gap Bld-sCnc 21 Above high normal 202320532818 7 - 17 [facility] Calcium SerPl-mCnc 7.2mg/dL Below low normal 664716740728 8 .7 - 10.5 [facility]CT CO2 SerPl-sCnc 13mmol/L Below low normal 668336171010 22 - 33 [facility] BUN SerPl-mCnc 87mg/dL Above high normal 354950430595 8 - 21 [facility] Sodium SerPl-sCnc 142mmol/L Normal 709270846782 136 - 145 [facility] Potassium SerPl-sCnc 4.3mmol/L Normal 602117642987 3.4 - 5.3 [facility] POC Glucose 289mg/dL Above high normal 426366964412 65 - 99 [facility] POC Glucose 324mg/dL Above high normal 409770603308 65 - 99 [facility] POC Glucose 443mg/dL Above high normal 873584636623 65 - 99 [facility]CT Chloride SerPl-sCnc 106mmol/L Normal 782826808301 98 - 107 [facility] Glucose SerPl-mCnc 476mg/dL Critically high 703097207400 65 - 99 [facility] GFR/BSA.pred SerPlBld XED-QIS-BnRKwm 11 Below low normal 048620662240 59 - HHCCT Creat SerPl-mCnc 5mg/dL Above high normal 057879250113 0. 5 - 1.3 [facility] BUN/Creat SerPl 17Ratio Normal 931914856139 10 - 25 H [facility] Anion Gap Bld-sCnc 21 Above high normal 538814409861 7 - 17 [facility]CT Calcium SerPl-mCnc 6.6mg/dL Critically low 135055170392 8.7 - 10.5 [facility]CT CO2 SerPl-sCnc 12mmol/L Critically low 526275634357 22 - 33 [facility]CT BUN SerPl-mCnc 84mg/dL Above high normal 497109047895 8 - 21 [facility]CT Sodium SerPl-sCnc 139mmol/L Normal 265582173080 136 - 145 [facility] Potassium SerPl-sCnc 4.5mmol/L Normal 473542982896 3.4 - 5.3 [facility]CT Troponin T SerPl-mCnc 2403ng/L Critically high 717235123533 - 23 [facility] Delta 573 Above high normal 650893092205 - 3 [facility] POC Glucose 461mg/dL Above high normal 157013869627 65 - 99 H[facility]CT pro BNP, N-terminal 43688ns/mL Above high normal 597980333902 - 450 [facility] Osmolality SerPl 359mOsm/Kg Above high normal 771319408328 2 85 - 295 [facility] Magnesium SerPl-mCnc 1.7mg/dL Normal 704265082946 1.6 - 2.7 [facility]CT B-OH-Butyr SerPl-sCnc 3.63mmol/L Above high normal 431421275570 - 0.28 [facility]CT Chloride SerPl-sCnc 104mmol/L Normal 949219986602 98 - 107 [facility] Glucose SerPl-mCnc 569mg/dL Critically high 787267942214 65 - 99 [facility]CT GFR/BSA.pred SerPlBld BEA-SZI-PjZOrl 11 Below low normal 289525906307 59 - HHCCT Creat SerPl-mCnc 4.9mg/dL Above high normal 943526508832 0. 5 - 1.3 [facility]CT BUN/Creat SerPl 17Ratio Normal 718565810253 10 - 25 H [facility] Anion Gap Bld-sCnc 28 Above high normal 787923281410 7 - 17 [facility]CT Calcium SerPl-mCnc 6.6mg/dL Critically low 246622504587 8.7 - 10.5 [facility]CT CO2 SerPl-sCnc 8mmol/L Critically low 564013733502 22 - 33 [facility]CT BUN SerPl-mCnc 83mg/dL Above high normal 813929034448 8 - 21 [facility]CT Sodium SerPl-sCnc 140mmol/L Normal [id number] 136 - 145 [facility] Potassium SerPl-sCnc 4.9mmol/L Normal 564567838740 3.4 - 5.3 [facility]CT Troponin T SerPl-mCnc 1830ng/L Critically high 995138708018 - 23 [facility] Delta Normal 623235110935 - 3 [facility] POC Glucose 500mg/dL Above high normal 399381104930 65 - 99 H[facility]CT aPTT PPP 68seconds Above high normal 943224522526 25 - 36 [facility] INR PPP 1.2 Normal 645332731611 HHCCT Prothrombin time 13.9seconds Above high normal 118386345522 10 - 13.5 [facility]CT LMWH PPP Msw-aCnc 0.72IU/mL Normal 053382376730 HHCCT pO2 BldV 78mmHG Above high normal 461730285969 0 - 60 [facility]CT pH BldV 7.18 Critically low 351057147764 7.33 - 7.43 HHCCT pCO2 BldV 27mmHG Below low normal 232895560402 35 - 50 [facility] CO2 BldV-sCnc 11mmol/L Below low normal 448676663007 23 - 2 9 [facility]CT Base deficit BldA-sCnc 17.1mmol/L Normal 494953376179 H[facility]CT Imm Granulocytes/leuk NFr Bld Auto 0.4% Normal 088818113859 H[facility]CT Lymphocytes/leuk NFr Bld Auto 9.2% Normal 386861718490 H[facility]CT PMV Bld Auto 11.3fL Normal 576778396859 7.5 - 12.[address] Monocytes num Bld Auto 0.49Thou/uL Normal 037683547942 0.2 - 1.5 H[facility]CT Hct VFr Bld Auto 27.7% Below low normal 969441068699 39 - 54 [facility] Neutrophils num Bld Auto 9.88Thou/uL Above high normal 166297330229 2 - 7.5 [facility] Neutrophils/leuk NFr Bld Auto 86% Normal 974701971899 H[facility]CT Basophils/leuk NFr Bld Auto 0.1% Normal 265106502336 H[facility]CT Basophils num Bld Auto 0.01Thou/uL Normal 795352770499 0 - 0.2 [facility]CT Monocytes/leuk NFr Bld Auto 4.3% Normal 847077236557 HHCCT Eosinophil num Bld Auto 0Thou/uL Normal 116239747906 0 - 0.7 H[facility]CT MCH RBC Qn Auto 31.3pg Above high normal 498525527069 27 - 31 [facility]CT Eosinophil/leuk NFr Bld Auto 0% Normal 614006731800 H[facility]CT Imm Granulocytes num Bld Auto 0.05Thou/uL Normal 557280232874 0 - 0.1 [facility]CT RDW RBC Auto-Rto 16.4% Above high normal 230079639763 11.5 - 14.5 [facility] Platelet num Bld Auto 265Thou/uL Normal 168379862190 150 - 450 [facility]CT MCHC RBC Auto-mCnc 30.7g/dL Normal 782630537808 30 - 36 H[facility]CT MCV RBC Auto 102fL Above high normal 525397452502 80 - 1 00 H[facility]CT WBC num Bld Auto 11.5Thou/uL Above high normal 412159661987 4 - 11 [facility] RBC num Bld Auto 2.72Mil/uL Below low normal 332953249241 4. 5 - 6.2 [facility]CT Hgb Bld-mCnc 8.5g/dL Below low normal 304534811587 13 - 17 .7 H[facility]CT Lymphocytes num Bld Auto 1.06Thou/uL Below low normal 301622865945 1.5 - 4.5 [facility]CT Anticoagulant IV HEPARIN, UNFRACTIONATED Normal 648046384115 HHCCT POC Glucose 500mg/dL Above high normal 119658576509 65 - 99 [facility]CT Anticoagulant IV HEPARIN, UNFRACTIONATED Normal 686206536652 HHCCT Anticoagulant IV HEPARIN, UNFRACTIONATED Normal 896260769624 H[facility]CT Anticoagulant IV HEPARIN, UNFRACTIONATED Normal 070133802517 H[facility]CT Respiratory Information NASAL 5 L/MIN Normal [id number] CCT
--- OUTSIDE RECORDS SUMMARY | 2024-11-08 16:34 | XMS_ITS | Encounter Summary ---
Author Organization [facility] Address [address] [place] [address] Care Team Providers Care Foundry Superintendant Name Role Phone Diaz Akers MD Primary Care Provider Soledad vailable Reason for Visit * Reason Comments Abnormal Test Result * Auth/Cert Specialty Diagnoses / Procedures Referred By Danielle rao Referred To Contact Diagnoses DKA (diabetic ketoacidosis) ([facility]) NSTEMI, DKA, Pneumonia Procedures OTHER ADMINISTRATIVE ADJUSTMENT (INSURANCE) Referral ID Status Reason Start Date Expiration Date Visits Re quested Visits Authorized [id number] 1 1 Encounter Details Date Type Department Care Team (Late st Contact Info) Description 10/31/2024 5:21 PM EST - 10/31/2024 6:26 PM EST Surgery [facility] Heart & Vascular [place] at [facility] - Cardiac Catheterization Laboratory [address] [place] [address] Calixto Ureña MD [address] [facility] [address] [place] [id number] CORONARY ANGIO W/LV Social History Tobacco Use Types Packs/Day Years Used Date Smoking Tobacco: Never Passive Smoke Exposure: Never Smokeless Tobacco: Never Tobacco Cessation:Counseling Given: Not Answered [facility] Utilities Answer Date Recorded In the past 12 months has [employer] electric, gas, oil, or water company threatened [...] any time in the past [address] [facility], were you homeless or living in a half-way (including now)? No 10/20/2024 Sex and Gender Information Value Date Recorded Sex Assigned at Male 10/18/2024 5:34 AM EST Gender Identity Male 10/18/2024 5:34 AM EST Sexual Orientation Heterosexual (straight) 10/18 5:34 AM EST documented as of this encounter Last Filed Vital Signs Vital Sign Reading Time Taken Comments Blood Pressure 129/62 10/31/2024 3:00 PM EST Pulse 61 10/31/2024 3:00 PM EST Temperature 36.7 ??C (98.1 ??F) 10/31/2024 3:00 PM ES T Respiratory Rate 20 10/31/2024 4:32 PM EST Oxygen Saturation 99% 10/31/2024 3:00 PM EST Inhaled Oxygen Concentration - - Weight 65.2 kg (143 lb 11.8 oz) 10/31/2024 5:21 AM EST Height 170.2 cm (5' 7 ) 10/28/2024 7:15 PM EST Body Mass Index 24.34 10/28/2024 7:15 PM EST documented in this encounter Discharge Summaries * Osmar Valdez MD - 11/01/2024 2:23 PM EST Images from the original note were not included. PATIENT DEMOGRAPHICS NEYMAR WILDER 1945 79 y.o. No Known Allergies Admission Date: 10/18/2024 Admitting Provider: Branden Boyd MD Discharge Provider: Osmar Valdez MD Discharge Date: 11/01/2024 Primary Care Physician at Discharge: Diaz Akers MD OUTPATIENT TEAM Patient Care Team: Diaz Akers MD as PCP - General (Internal Medicine) PRIMARY DISCHARGE DIAGNOSIS Primary Discharge Diagnosis Principal Problem: DKA (diabetic ketoacidosis) (HCC) (POA: Yes) Active Problems: NSTEMI (non-ST elevated myocardial infarction) (HCC) (POA: Unknown) COVID (POA: Yes) Heart failure with reduced ejection fraction (HCC) (POA: Unknown) Pulmonary edema with left heart failure (HCC) (POA: Unknown) Resolved Problems: DISCHARGE DISPOSITION Home With Health Care Services Code Status Procedures Full Code . MEDICATIONS AT TIME OF ADMISSION No current facility-administered medications on file prior to encounter. Current Outpatient Medications on File Prior to Encounter Medication Sig calcitRIOL (ROCALTROL) 0.25 MCG capsule Take 1 capsule (0.25 mcg total) by mouth once a week. Tuesdays allopurinol (ZYLOPRIM) 100 mg tablet Take 1 tablet (100 mg total) by mouth daily. amLODIPine (NORVASC) 5 MG tablet Take 1 tablet (5 mg total) by mouth daily. aspirin enteric coated (ECOTRIN LOW STRENGTH) 81 MG EC tablet Take 1 tablet (81 mg total) by mouth daily. carvedilol (COREG) 6.25 MG tablet Take 1 tablet (6.25 mg total) by mouth 2 (two) times a day with meals. clopidogrel (PLAVIX) 75 MG tablet Take 1 tablet (75 mg total) by mouth daily. levothyroxine (SYNTHROID, LEVOTHROID) 25 MCG tablet Take 1 tablet (25 mcg total) by mouth daily on an empty stomach. sitaGLIPtin (JANUVIA) 100 MG tablet Take 1 tablet (100 mg total) by mouth daily. sodium bicarbonate 650 MG tablet Take 1 tablet (650 mg total) by mouth 2 (two) times a day. spironolactone (ALDACTONE) 25 MG tablet Take 1 tablet (25 mg total) by mouth daily. terazosin (HYTRIN) 5 MG capsule Take 1 capsule (5 mg total) by mouth nightly. MEDICATIONS CHANGED Current Discharge Medication List CONTINUE these medications which have CHANGED Details calcitriol (ROCALTROL) 0.5 MCG capsule Take 1 capsule (0.5 mcg total) by mouth daily. Qty: 30 capsule, Refills: 0 Associated Diagnoses: Diabetic ketoacidosis without coma associated with type 2 diabetes mellitus (HCC) MEDICATIONS DISCONTINUED (OR A NEW SCRIPT WRITTEN) Current Discharge Medication List STOP taking these medications allopurinol (ZYLOPRIM) 100 mg tablet Comments: Reason for Stopping: amLODIPine (NORVASC) 5 MG tablet Comments: Reason for Stopping: carvedilol (COREG) 6.25 MG tablet Comments: Reason for Stopping: clopidogrel (PLAVIX) 75 MG tablet Comments: Reason for Stopping: sitaGLIPtin (JANUVIA) 100 MG tablet Comments: Reason for Stopping: sodium bicarbonate 650 MG tablet Comments: Reason for Stopping: spironolactone (ALDACTONE) 25 MG tablet Comments: Reason for Stopping: DISCHARGE MEDICATIONS Discharge Medications New Medications Sig Alcohol Swabs 70 % Pads Use as directed. Quantity: 100 Pad(s) atorvastatin 80 MG tablet Commonly known as: LIPITOR Start taking on: November 02, 2024 Take 1 tablet (80 mg total) by mouth daily. Quantity: 30 tablet * BD Pen Needle Debby U/F 32G X 4 MM Misc Generic drug: Insulin Pen Needle Use as directed Quantity: 100 pen needle * BD Pen Needle Debby U/F 32G X 4 MM Misc Generic drug: Insulin Pen Needle Use as directed Quantity: 100 pen needle calcium carbonate 500 MG chewable tablet Commonly known as: TUMS Start taking on: November 02, 2024 Chew 1 tablet (500 mg total) daily. Quantity: 30 tablet hydrALAZINE 25 MG tablet Commonly known as: APRESOLINE Take 1 tablet (25 mg total) by mouth every 8 (eight) hours around the clock. Quantity: 90 tablet insulin glargine 100 units/mL prefilled pen injection Commonly known as: LANtus/SEMGLEE SOLOSTAR Inject 8 Units under the skin daily. Quantity: 15 mL insulin lispro 100 UNIT/ML prefilled pen injection Commonly known as: HumaLOG KWIKPEN Inject 0-4 Units under the skin 3 (three) times a day before meals. Hold if not eating, Take 4 units with a full meal and 2 units if eating 50% of meal Quantity: 15 mL isosorbide dinitrate 10 MG tablet Commonly known as: ISORDIL Take 1 tablet (10 mg total) by mouth 3 (three) times a day in the morning, mid- day and early evening. Quantity: 90 tablet linagliptin 5 MG Tabs Commonly known as: TRADJENTA Start taking on: November 02, 2024 Take 1 tablet (5 mg total) by mouth daily. Quantity: 30 tablet metoPROLOL SUCCINATE 25 MG 24 hr tablet Commonly known as: TOPROL-XL Start taking on: November 02, 2024 Take 3 tablets (75 mg total) by mouth daily. Quantity: 90 tablet * There are duplicate medications prescribed to the patient Modified Medications Sig calcitriol 0.5 MCG capsule Commonly known as: ROCALTROL Start taking on: November 02, 2024 What changed: medication strength how much to take when to take this additional instructions Take 1 capsule (0.5 mcg total) by mouth daily. Quantity: 30 capsule Medications To Continue Sig aspirin enteric coated 81 MG EC tablet Commonly known as: ECOTRIN LOW STRENGTH Take 1 tablet (81 mg total) by mouth daily. levothyroxine 25 MCG tablet Commonly known as: SYNTHROID, LEVOTHROID Take 1 tablet (25 mcg total) by mouth daily on an empty stomach. terazosin 5 MG capsule Commonly known as: HYTRIN Take 1 capsule (5 mg total) by mouth nightly. Stopped Medications allopurinol 100 mg tablet Commonly known as: ZYLOPRIM amLODIPine 5 MG tablet Commonly known as: NORVASC carvedilol 6.25 MG tablet Commonly known as: COREG clopidogrel 75 MG tablet Commonly known as: PLAVIX sitaGLIPtin 100 MG tablet Commonly known as: JANUVIA sodium bicarbonate 650 MG tablet spironolactone 25 MG tablet Commonly known as: ALDACTONE DISCHARGE INSTRUCTIONS Diabetes Discharge Instructions: Blood Glucose Targets Order Comments: Test your blood glucose: Before meal and at bedtime (four times daily) and as needed for symptoms of low or high blood sugar Your HbA1c: Lab Results Component Value Date HGBA1C 8.7 (H) 10/19/2024 This measures the average blood sugar for the past 2-3 months. It is important to keep the HbA1c asclose to your target as possible to avoid complications. Some individuals may require a higher target for safety reasons. Target Blood Glucose Before Meals Less than 130 Target Blood Glucose After Meals Less than 180 Target HbA1C: less than 7 percent Increase activity as tolerated DISCHARGE DIET Diet Restricted Diet Diet Restrictions Diabetic Calorie/Carb Restriction Carb Counting 60g/meal 1600-1900kcal FOLLOW UP No future appointments. ACTIVE ISSUES FOR FOLLOW UP Please see discharge instructions and radiological and hematological tests below for follow up. 1) Follow up with cardiology 2) Follow up with endocrine INCIDENTAL FINDINGS Incidental hospital findings:DKA, NSTEMI PENDING TEST RESULTS Pending Labs Order Current Status Fungal Culture, Other Than Blood Preliminary result Mycobacteria Culture (includes acid fast smear) Preliminary result DISCHARGE DAY NOTE Patient was seen and examined by me on the date of discharge. Feeling well and not in any acute distress. Denies any chest pain or shortness of breath. General Appearance: Alert, Awake, not in acute distress. Cardiovascular: S1-S2 present, no murmurs present. Respiratory: Bilateral air entry present, no added sounds heard Gastrointestinal: soft, non-tender, non-distended, bowel sounds present. Extremities: negative edema I spoke with the patient regarding the discharge plan. The discharge plan was discussed with the case management and the nursing staff. Patient verbalzied understanding of the discharge and was agreeable for the discharge plan. Discharge Condition: stable Last Vitals: Pulse:67,Resp:18,BP:(!) 151/70,SpO2:97 %,Weight: 70.5 kg (155 lb 6.8 oz) Temp Last 24 hrs: Temp Min: 96.7 ??F (35.9 ??C) Max: 98.1 ??F (36.7 ??C) DETAILS OF HOSPITAL STAY History of Present Illness (from the H&P) Neymar Wilder 79 y.o. w/ PMHx of stage V CKD (has not been on hemodialysis follows with nephrology in [place]), insulin-dependent diabetes, hypertension presented from outside hospital and transferred to [facility] for concerns of NSTEMI and DKA. Patient initially presented to outside hospital with URI symptoms including cough, chills, and increased shortness of breath. Patientwas found to be hypoxic via EMS in the mid 80s and was placed on 5 L of nasal cannula with improvement which is a new oxygen requirement for the patient. Outside hospital x-ray showed opacities consistent with questionable pneumonia versus pulmonary edema, blood sugar was greater than 700, severe anion gap metabolic acidosis with pH of 7.1 consistent with diabetic ketoacidosis. Additionally patient was tested positive for COVID. EKG showed sinus rhythm with poor R wave progression and nonspecific T wave abnormalities. Outside hospital troponin was elevated at 1830 can be likely due to demand ischemia given DKA and signs of fluid overload from chest x-ray. Hospital Course Neymar Wilder presented to outside hospital with NSTEMI and DKA. Patient was found to be hypoxic. Additionally patient was tested positive for COVID on 10/19/2024. EKG showed sinus rhythm with poor R wave progression and nonspecific T wave abnormalities. Outside hospital troponin was elevated at 1830. On 10/18/2024, he was transferred to [facility] intensive care unit. He received treatment to DKA, acidosis and hyperglycemia improved on intravenous fluid and insulin therapy. Upon admission to [facility] NT-proBNP was found to have 70K and high- sensitivity troponin was 4000. Chest x-ray also showed pulmonary edema. He underwent bilateral thoracentesis on 10/29/2024.Nephrology and cardiology evaluated the patient. He was daily evaluated for need of diuretics and was receiving IV Lasix as indicated. Since he is euvolemic cardiology service does not recommend diuretics at the time of discharge. Patient had a stage V kidney disease, nephrology were following him during hospitalization. Creatinine remained stable during hospitalization. He was aware of his risk of developing contrast-induced nephropathy if it proceed with cardiac cath. Cardiology and interventional cardiology following the patient and coronary angiography was recommended. Patient underwent coronary angiography on 10/30 that showed moderate LAD disease and severe stenosis of nondominant right RCA. Medical management was recommended. He will be discharged on aspirin + statin for secondary prevention. Given his CKD he the GDMT for him would include Toprol-XL 75 mg daily, Isordil 10 mg 3 times daily and hydralazine 25 mg 3 times daily. He will require further titration of his medications through his primary wardsperson.. Endocrine service provided recommendations for insulin and he was switched from Januvia to Tradjenta at the time of discharge. Consults: Consults placed: Procedures Inpatient consult to cardiology ([facility] Cardiology) Inpatient consult to cardiology ([facility] Cardiology) Inpatient consult to Endocrinology Inpatient consult to Nutrition Services Procedures: Surgical/Procedural Cases on this Admission Case IDs Date Procedure Surgeon Location Status [id number] 10/31/24 CORONARY ANGIO W/LV Calixto Ureña MD [employer]ACHINE OPERATOR Comp Diagnostic Studies: XR Chest 1 view-Portable Result Date: 10/19/2024 EXAMINATION: XR CHEST CLINICAL INFORMATION: hypoxic sob eval for pulm edema COMPARISON: Chest radiograph 10/18/2024 at 5:27 AM TECHNIQUE: Frontal views of the chest were obtained. FINDINGS: Lungs are slightly hypoexpanded. Interval worsening of patchy bilateral opacities with central and basilar predominance. Trace bilateral pleural effusions. No pneumothorax. The cardiomediastinal silhouette is unchanged from prior. No acute osseous abnormality. 1. Interval worsening of now moderate pulmonary edema. Superimposed infectious/inflammatory processcannot be entirely excluded. 2. Trace bilateral pleural effusions unchanged. Interpreted by: Mitchell Ascencio DO Technical Operations Vice President I personally reviewed the images and the resident's preliminary report and AGREE with the report as it is now presented ([email or web address]). XR Chest 1 view-Portable Result Date: 10/19/2024 EXAMINATION: XR CHEST CLINICAL INFORMATION: Post thoracentesis. COMPARISON: XR Chest 10/18/2024 TECHNIQUE: Frontal views of the chest was obtained. FINDINGS: Heart is mildly enlarged. Diffuse pulmonary edema is slightly improved compared to the prior exam. Left pleural effusion is improved. Improved pulmonary edema and left pleural effusion. US Guided Bedside Thoracentesis-Bilateral Result Date: 10/19/2024 PROCEDURE: Ultrasound-guided thoracentesis INDICATION: Bilateral pleural effusion. SPECIMEN: Specimen collected as requested. Sample left with bedside RN. ACCESS: 6 [place] J[employer] closed needle/catheter system REQUESTING PRACTITIONER: Cheryl Blue MD CLINICIAN(S): CHELLY Gaitan CONSENT: Informed consent was obtained from the patient prior to the procedure. During this process, the procedure and potential alternatives were explained along with the intended outcome and benefits.The risks of the procedure, including the possibility of an unsuccessful procedure as well as the risk of not doing the procedure were discussed. the patient was given the opportunity to ask any quest ions regarding the procedure and appeared competent to make medical decisions. A signed consent form which documents this discussion was placed in the medical record. A timeout procedure was performed. HISTORY: Neymar Wilder is a 79 y.o. old male with a suspected bilateral pleural effusion. The patient was referred for an ultrasound-guided thoracentesis. MEDICATIONS: 10ml 1% lidocaine. TECHNIQUE/FINDINGS: Appropriate pre-procedure medical history and imaging studies were reviewed. The ultrasound machine was brought to the patients bedside. Ultrasound images of the right thorax were obtained to localize a moderate pleural effusion. Images were permanently saved to the record. An area of the patient's back was prepped and draped in the standard sterile fashion. 10 mL of 1% lidocaine was used to obtain local anesthesia of the skin and deeper tissues. A standard small bore needle was introduced to sample fluid and demonstrated a safe access route. There was no evidence of traversingadjacent organs or vascular structures. A 6 [place] [employer] closed needle/catheter system was utilized for access. 850 mL of clear devorah fluid was aspirated before drainage ceased. The catheter was removed and a sterile dressing applied. Ultrasound images of the left thorax were obtained to localize a moderate pleural effusion. Images were permanently saved to the record. An area of the patient's back was prepped and draped in the standard sterile fashion. 10 mL of 1% lidocaine was used to obtain local anesthesia of the skin and deeper tissues. A standard small bore needle was introduced to sample fluid and demonstrated a safe access route. There was no evidence of traversing adjacent organs or vascular structures. A 6 [place] [employer] closed needle/catheter system was utilized for access. 550 mL of clear devorah fluid was aspirated before drainage ceased. The catheter was removed and a sterile dressing applied. The patient tolerated the procedure well without evidence of complications. Successful bilateral ultrasound-guided diagnostic and therapeutic thoracentesis yielding 850 mL of clear devorah fluid from the right and 550 mL of clear devorah fluid from the left. This procedure was performed and dictated by CHELLY Gaitan Echocardiogram (TTE) Comprehensive (Contrast PRN) Result Date: 10/18/2024 The left ventricle is severely dilated. There is eccentric hypertrophy. Left ventricular systolic function is severely decreased. The quantitative EF by 2D Poole biplane is 28%. The anterior and anteroseptal garcia are akinetic. The apex is dyskinetic. There is evidence of diastolic dysfunction, with elevated left atrial filling pressure. The left atrial cavity is severely dilated. The right ventricle is normal in size. Right ventricular systolic function is normal. The estimated right ventricular systolic pressure is 52 mmHg. There is moderate functional mitral regurgitation. There is mild tricuspid regurgitation. There is a large left pleural effusion. There is no previous study for tal rison in our system. Dr. Pushpa Gallegos was notified by CME text at 12:36 PM. XR Chest 1 view-Portable Result Date: 10/18/2024 EXAMINATION: XR CHEST CLINICAL INFORMATION: SOB COMPARISON: None TECHNIQUE: Frontal view of the chest FINDINGS: The lungs are well-expanded. Central vascular and coarse interstitial prominence. Hazy right basilar and dense retrocardiac opacities. Small left and suspected small right layering pleural effusions. Thickening of the minor fissure. Gabriele B-lines. No pneumothorax. The cardiomediastinalsilhouette is similar to prior. No acute osseous abnormalities. 1. Findings as above most consistent with pulmonary edema and left greater than right small bilateral pleural effusions. Please note, an underlying infectious/inflammatory process cannot be excluded.2. Hazy right basilar and dense retrocardiac opacities may represent layering effusion and/or atelectasis, respectively. Interpreted by: Prem Coffman MD Technical Operations Vice President I personally reviewed the images and the resident's preliminary report and AGREE with the report as it is now presented (RADPAL1). Echocardiogram The left ventricle is severely dilated. There is eccentric hypertrophy. Left ventricular systolic function is severely decreased. The quantitative EF by 2D Poole biplane is 28%. The anterior and anteroseptal garcia are akinetic. The apex is dyskinetic. There is evidence of diastolic dysfunction, with elevated left atrial filling pressure. The left atrial cavity is severely dilated. The right ventricle is normal in size. Right ventricular systolic function is normal. The estimatedright ventricular systolic pressure is 52 mmHg. There is moderate functional mitral regurgitation. There is mild tricuspid regurgitation. There is a large left pleural effusion. There is no previous study for comparison in our system. Dr. Pushpa Gallegos was notified by [employer] at 12:36 PM. Results from last 7 days Lab Units 11/01/24 0620 10/31/24 0716 10/30/24 0709 WHITE BLOOD CELL COUNT Thou/uL 9.1 8.9 9.3 HEMOGLOBIN g/dL 9.2* 9.6* 9.3* HEMATOCRIT % 29.7* 31.4* 30.3* PLATELET COUNT Thou/uL 261 289 304 Results from last 7 days Lab Units 11/01/24 1204 11/01/24 0821 11/01/24 0620 10/31/24 0813 10/31/24 0716 10/30/24 0843 10/30/24 0709 SODIUM mmol/L -- -- 140 -- 144 -- 142 POTASSIUM mmol/L -- -- 4.8 -- 4.7 -- 4.5 CHLORIDE mmol/L -- -- 104 -- 104 -- 101 CO2 mmol/L -- -- 22 -- 24 -- 27 BUN mg/dL -- -- 41* -- 40* -- 40* CREATININE mg/dL -- -- 4.5* -- 4.6* -- 4.3* CALCIUM mg/dL -- -- 9.3 -- 8.8 -- 9.2 GLUCOSE mg/dL -- -- 92 -- 82 -- 80 GLUCOSE, POC mg/dL 189* 111* -- < > -- < > -- EGFR -- -- 13* -- 12* -- 13* < > = values in this interval not displayed. No results found for: ALT , AST , GGT , ALKPHOS , BILITOT Lab Results Component Value Date PROBNP 47,866 (H) 10/29/2024 Blood Cultures: Lab Results Component Value Date SOURCE RIGHT PLEURAL EFFUSION 10/18/2024 SOURCE RIGHT PLEURAL EFFUSION 10/18/2024 SOURCE RIGHT PLEURAL EFFUSION 10/18/2024 SREQ 10/18/2024 Limited quantity of fluid received, results may be impacted. CULTURE No aerobes and anaerobes isolated after 7 days 10/18/2024 CULTURE 10/18/2024 No fungi isolated. Culture will be held for two weeks. CULTURE 10/18/2024 No acid fast bacilli isolated to date. Culture will be held for a total of 6 weeks. Urine Cultures: No results found for: CRYSUA , HYALNCSTUA , UROBILINOGEN , BILIUA , BLOODUA , CLARITYUA , COLORUA , UACOMMENT , GLUCU , KETONESUA , LEUKOCYTESUA , NITRITEUA , PHUA , PROTEINUA , RBCUA , SPECIMEN , SPECGRAVUA , SQEPIUA , WBCUA C. Difficile: No results found for: CDIFFTOX , NAP1 TIME SPENT FOR DISCHARGE Total time spent for discharge 56 minutes Time was spent in educating the patient, making a comprehensive discharge plan and discussion with the staff regarding the discharge plan, medication reconciliation and discharge summary. Osmar Valdez MD 11/01/2024 2:24 PM documented in this encounter Discharge Instructions * Discharge Instr - Other Orders* Day Casarez APRN - 11/01/2024 9:35 AM EST Diabetes Discharge Instructions: Oral Agents: Continue Tradjenta 5 mg daily Stop Januvia Insulin: Take Lantus SoloStar Pen 8 units daily Humalog KwikPen 0-4 units 3 times a day with meals Hold if not eating or not eating carbohydrates Take 4 units with a full meal Glucose Monitoring: Check blood sugar before meals and at bedtime. Target BG in AM 80-130 mg/dL and PM 90-150 mg/dL. Notify provider if BG < 70 mg/dL or > 250 mg/dL. Target Hgb A1c < 7%. Consistent Carb diet, 60 gm/ meal. Follow up: Follow up with Diaz Akers MD (PCP) in 1-2 weeks. * Attachments The following attachments cannot be sent through Care Everywhere. * Angiogram Care After ([place]) documented in this encounter Medications at Time of Discharge Medication Sig Dispensed Refills Start Date End Date Alcohol Swabs 70 % PadsIndications:Diabe tic ketoacidosis without coma associated with type 2 diabetes mellitus (HCC) Use as directed. 100 Pad(s) 11/01/2024 12/02/2024 aspirin enteric coated (ECOTRIN LOW STRENGTH) 81 MG EC tablet Take 1 tablet (81 mg total) by mouth daily. atorvastatin (LIPITOR) 80 MG tabletIndications:NST BETO (non-ST elevated myocardial infarction) (HCC) Take 1 tablet (80 mg total) by mouth daily. 30 tablet 11/02/2024 12/02/2024 BD Pen Needle Debby U/F 32G X 4 MM MiscIndications:Diabe tic ketoacidosis without coma associated with type 2 diabetes mellitus (HCC) Use as directed 100 pen needle 11/01/2024 12/02/2024 BD Pen Needle Debby U/F 32G X 4 MM MiscIndications:Diabe tic ketoacidosis without coma associated with type 2 diabetes mellitus (HCC) Use as directed 100 pen needle 11/01/2024 12/02/2024 calcitriol (ROCALTROL) 0.5 MCG capsuleIndications:Di abetic ketoacidosis without coma associated with type 2 diabetes mellitus (HCC) Take 1 capsule (0.5 mcg total) by mouth daily. 30 capsule 11/02/2024 12/02/2024 calcium carbonate (TUMS) 500 MG chewable tabletIndications:NST BETO (non-ST elevated myocardial infarction) (HCC) Chew 1 tablet (500 mg total) daily. 30 tablet 11/02/2024 12/02/2024 hydrALAZINE (APRESOLINE) 25 MG tabletIndications:NST BETO (non-ST elevated myocardial infarction) (HCC) Take 1 tablet (25 mg total) by mouth every 8 (eight) hours around the clock. 90 tablet 11/01/2024 12/01/2024 insulin glargine (LANtus/SEMGLEE SOLOSTAR) 100 units/mL prefilled pen injectionIndications: Diabetic ketoacidosis without coma associated with type 2 diabetes mellitus (HCC) Inject 8 Units under the skin daily. 15 mL 11/01/2024 insulin lispro (HumaLOG KWIKPEN) 100 UNIT/ML prefilled pen injectionIndications: Diabetic ketoacidosis without coma associated with type 2 diabetes mellitus (HCC) Inject 0-4 Units under the skin 3 (three) times a day before meals. Hold if not eating, Take 4 units with a full meal and 2 units if eating 50% of meal 15 mL 11/01/2024 isosorbide dinitrate (ISORDIL) 10 MG tabletIndications:NST BETO (non-ST elevated myocardial infarction) (HCC) Take 1 tablet (10 mg total) by mouth 3 (three) times a day in the morning, mid-day and early evening. 90 tablet 11/01/2024 12/01/2024 levothyroxine (SYNTHROID, LEVOTHROID) 25 MCG tablet Take 1 tablet (25 mcg total) by mouth daily on an empty stomach. linagliptin (TRADJENTA) 5 MG TabIndications:Diabet ic ketoacidosis without coma associated with type 2 diabetes mellitus (HCC) Take 1 tablet (5 mg total) by mouth daily. 30 tablet 11/02/2024 12/02/2024 metoPROLOL SUCCINATE (TOPROL-XL) 25 MG 24 hr tabletIndications:NST BETO (non-ST elevated myocardial infarction) (HCC) Take 3 tablets (75 mg total) by mouth daily. 90 tablet 11/02/2024 12/02/2024 terazosin (HYTRIN) 5 MG capsule Take 1 capsule (5 mg total) by mouth nightly. documented as of this encounter Progress Notes * Diandra Low RN - 11/01/2024 2:24 PM EST 11/01/24 1400 Plan Plan Home routine Patient/Family in Agreement with Plan yes Final Discharge Disposition Code 01 - home or self-care Final Case Management Care Plan Note Summary: Per provider, patient is medically ready to transition home. Confirmed that patient is able to obtain medications/food/necessities post discharge. Pt declined home care. Final Destination: Home routine Plan for home support/Caregiver/responsible person: Son Follow-up provider appointment: Per AVS Equipment Ordered and Given at Discharge: None Final Discharge Transportation: Son * Day Casarez APRN - 11/01/2024 9:27 AM EST Endocrinology Progress Note [employer] Endocrinology - Medicine Today's Date: 11/01/2024 Admit Date: 10/18/2024 5:10 AM Consult requested by: Osmar Valdez MD Principal Problem: DKA (diabetic ketoacidosis) (HCC) (POA: Yes) Active Problems: NSTEMI (non-ST elevated myocardial infarction) (HCC) (POA: Unknown) COVID (POA: Yes) Heart failure with reduced ejection fraction (HCC) (POA: Unknown) Pulmonary edema with left heart failure (HCC) (POA: Unknown) Resolved Problems: Assessment & Plan Neymar Wilder is a 79 y.o. male with T2DM, A1c 8.7% (10/29/2023), CKD 5, HTN, hypothyroidism,presented to outside hospital with PNA and concerns for NSTEMI, DKA on 10/18, patient was started on insulin drip, DKA resolved and was transitioned off the insulin drip on 10/19. BG's running tight overnight he is getting a reduced dose of basal insulin today T2DM controlled on DDP4i, basal and bolus insulin Discharge recommendations (for primary team): Oral Agents Continue Tradjenta 5 mg daily Stop Januvia Long Acting Insulin/Basal Insulin: Lantus SoloStar Pen inject 8 units under the skin daily Rapid Acting Insulin/Meal Bolus: Humalog KwikPen inject 0-4 units under the skin, 3 times a day with meals Hold if not eating Take 4 units with a full meal Blood Glucose Monitoring: Check Blood Glucose 4 times a day, before meals and at bedtime. Follow Up: Follow up with Diaz Akers MD (PCP) in 1-2 weeks. RX for Discharge: *Lantus SoloStar Pen (U100) (the following are interchangable*)- order B-D Debby 4 mm [place] (15 mL). Humalog KwikPen (U100) (the following are interchangable) - order B-D Debby 4 mm [place] (15 mL). * Lantus Solostar, Basaglar KwikPen, Levemir FlexTouch Pen, Tresiba FlexTouch Humalog Kwik Pen, NovoLog FlexPens, Fiasp FlexTouch Pen, Apidra Solostar Pen Patient instructions to be copied into free-text discharge section: Diabetes Discharge Instructions: Oral Agents: Continue Tradjenta 5 mg daily Stop Januvia Insulin: Take Lantus SoloStar Pen 8 units daily Humalog KwikPen 0-4 units 3 times a day with meals Hold if not eating or not eating carbohydrates Take 4 units with a full meal Glucose Monitoring: Check blood sugar before meals and at bedtime. Target BG in AM 80-130 mg/dL and PM 90-150 mg/dL. Notify provider if BG < 70 mg/dL or > 250 mg/dL. Target Hgb A1c < 7%. Consistent Carb diet, 60 gm/ meal. Follow up: Follow up with Diaz Akers MD (PCP) in 1-2 weeks. Pertinent Glycemic Management Data: TDD: 19 units (10 basal, 9 bolus) of insulin previous 24 hours with the addition of DDP 4I BG Range: 74-1 47 Diet: Diet Cardiac; Carb Counting 60g/meal 8679-6270 kcal; 2 gm NA (Low Sodium); Low Fat (50gmfat, Low Chol, Low Sat Fat) Steroids: Infusions: History Diabetes History Pre-Admission Regimen: Lantus Solostar 10-14 units Januvia 100 mg daily Diabetes Management: Diaz Akers MD (PCP) Subjective Chief Complaint Diabetes Management Subjective: sitting up in chair, notified of discharge recommendations, patient agreeable. History Review of Systems Constitutional: Negative for appetite change. Gastrointestinal: Negative for nausea and vomiting. No Known Allergies Objective Inpatient Orders I & O's: Intake/Output Summary (Last 24 hours) at 11/01/2024 0990 Last data filed at 11/01/2024 0916 Gross per 24 hour Intake 871.95 ml Output 2505 ml Net -1633.05 ml Scheduled Meds: aspirin, 81 mg, Oral, Daily atorvastatin, 80 mg, Oral, Daily calcitRIOL, 0.5 mcg, Oral, Daily calcium carbonate, 500 mg, Oral, Daily chlorhexidine, 15 mL, Mouth/Throat, BID darbepoetin kelely (ARANESP) injection, 60 mcg, Subcutaneous, Weekly heparin (porcine), 5,000 Units, Subcutaneous, Q8H CHERYL insulin glargine, 8 Units, Subcutaneous, Daily insulin lispro, 1-4 Units, Subcutaneous, NIGHTLY & 2AM insulin lispro, 1-6 Units, Subcutaneous, TID with meals insulin lispro, 2-9 Units, Subcutaneous, TID with meals levothyroxine, 25 mcg, Oral, Daily 6AM linagliptin, 5 mg, Oral, Daily metoPROLOL SUCCINATE, 75 mg, Oral, Daily senna-docusate, 2 tablet, Oral, Nightly Physical Vitals: 10/31/24 2045 10/31/24 2300 11/01/24 0620 11/01/24 0731 BP: (!) 163/73 (!) 143/66 (!) 144/71 BP Location: Left arm Left arm Left arm Patient Position: Lying Lying Pulse: 78 70 67 Resp: 16 18 18 Temp: 97.9 ??F (36.6 ??C) 96.7 ??F (35.9 ??C) TempSrc: Tympanic Tympanic SpO2: 94% 95% 95% Weight: 70.5 kg (155 lb 6.8 oz) Height: Intake/Output Summary (Last 24 hours) at 11/01/2024 0927 Last data filed at 11/01/2024 0916 Gross per 24 hour Intake 871.95 ml Output 2505 ml Net -1633.05 ml Physical Exam Vitals reviewed. Cardiovascular: Rate and Rhythm: Normal rate. Pulmonary: Effort: Pulmonary effort is normal. Skin: General: Skin is warm and dry. Neurological: Mental Status: He is alert. Labs Lab Results Component Value Date HGBA1C 8.7 (H) 10/19/2024 Recent Labs 10/31/24 1204 10/31/24 1645 10/31/24 2120 11/01/24 0158 11/01/24 0620 GLUC 92 74 128* 122* 92 Lab Results Component Value Date ANIONGAP 14 11/01/2024 ANIONGAP 16 10/31/2024 ANIONGAP 14 10/30/2024 Lab Results Component Value Date NA 140 11/01/2024 K 4.8 11/01/2024 CL 104 11/01/2024 CO2 22 11/01/2024 BUN 41 (H) 11/01/2024 CREAT 4.5 (H) 11/01/2024 GLUC 92 11/01/2024 GLUC 122 (H) 11/01/2024 Lab Results Component Value Date HGBA1C 8.7 (H) 10/19/2024 Greater than 35 min spent. During the day of the visit, time was spent on the following: Chart review in preparation for the visit, reviewing day/overnight events, glucose and MAR and labsdata, ordering diabetes medication, insulin and labs, and documenting in the patient record, managing hyperglycemia, preventing hypoglycemia. 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 Time spent communicating with other health child care leader including the RN Signed Day Casarez Endocrinology - Medicine 11/01/2024 9:27 AM * Michael Chandler, PT - 11/01/2024 8:01 AM EST Physical Therapy Progress Note Precautions/Restrictions: fall, other (see comments) (skin) Assessment Summary: Pt received in bed, on RA, alert and agreeable to PT. Seen for follow- up. He demonstrated good progress towards functional goals - during today's session he was able to perform bed mobility,transfers and was able to ambulate without physical assistance, use of an AD or LOB. He reported being very active at baseline and denied the need for continued skilled PT. I anticipate with increased ambulation he will return to PLOF. Pt reported his son is supportive and will assist if needed upon discharge. PT will sign off at this time as he is not presenting with deficits which warrant continued skilled PT. Progress Towards Goals: progress toward functional goals as expected Outcome Measures: The Activity Measure for Post-Acute Care (AM-PAC) Basic Mobility Inpatient Short Form (6-clicks) yoletet standardized measure used to quantify functional deficits in mobility. The total score of the measure ranges from 6-24. A higher score indicates a higher level of independence with functional mobility. Current [facility] Basic Mobility Score: 23 Rehab Plan of Care PT will sign off at this time as pt is mobilizing without assistance and is not presenting with deficits which warrant continued skilled PT. PT Recommendations for Staff: Ambulate SBA at least 3x/day PT Frequency during Hospitalization: 2-3 times/wk Plan of Care Reviewed With: patient Objective Data/Intervention Bed Mobility Assessment/Intervention: (I) supine <> sit Transfers Assessment/Intervention: Supervision for STS without use of an AD Gait/Stair Assessment/Intervention: Pt ambulated 200ft without use of an AD with SBA. Pt is currently ambulating with a reciprocal gait, initially slow however with increased time/distance he demonstrated improvements in gait speed. Activity Tolerance/Endurance Assessment/Intervention: Good tolerance for PT; denied pain, dizziness, SOB. Education: POC, gait Subjective I just need some more time walking and I'll be back to normal Flowsheet Data 11/01/24 0801 Physical Therapy Time and Intention PT Follow-Up Visit follow up treatment Mode of Treatment physical therapy Patient Effort excellent Symptoms Noted During/After Treatment none General Information Patient Profile Reviewed yes Patient/Family/Caregiver Comments/Observations I just need some more time walking and I'll be backto normal General Observations of Patient Pt received in bed, on RA, alert and agreeable to PT Existing Precautions/Restrictions fall;other (see comments) (skin) Pain Additional Documentation Pain Scale: Numbers Pre/Post-Treatment (Group) Pain Scale: Numbers Pre/Post-Treatment Pre/Posttreatment Pain Comment denied pain Coping Observed Emotional State calm;cooperative Verbalized Emotional State acceptance Plan of Care Review Plan of Care Reviewed With patient Safety Safety WDL WDL Safety Factors wheels locked;ID band on;call light in reach;bed in low position All Alarms alarm(s) activated and audible Enhanced Safety Measures bed alarm set Progressive Mobility Progressive Mobility Level Achieved Ambulation [facility] Basic Mobility Turning from your back to your side while in a flat bed without using bedrails? 4 Moving from lying on your back to sitting on the side of a flat bed without using bedrails? 4 Moving to and from a bed to a chair (including wheelchair)? 4 Standing up from a chair using your arms? 4 To walk in a hospital room? 4 Climbing 3-5 steps with a railing? 3 [facility] Basic Mobility Score 23 Therapy Assessment/Plan (PT) Functional Level at Time of Evaluation (PT) 5 - amb Criteria for Skilled Interventions Met (PT) yes Therapy Frequency (PT) 2-3 times/wk PT Recommendations for Staff Ambulate SBA at least 3x/day Progress Summary (PT) Progress Toward Functional Goals (PT) progress toward functional goals as expected Therapy Plan Review/Discharge Plan (PT) Therapy Plan Review (PT) care plan/treatment goals reviewed Transfer Goal 1 (PT) Progress/Outcome (Transfer Goal 1, PT) goal met Gait Training Goal 1 (PT) Progress/Outcome (Gait Training Goal 1, PT) good progress toward goal Stairs Goal 1 (PT) Progress/Outcome (Stairs Goal 1, PT) good progress toward goal Sign: Michael Díaz, PT * Veronica Hamm PA-C - 11/01/2024 7:34 AM EST Date 11/01/2024 Assessment & Plan 79y/o male PMHx DM, HTN, CKD V (bCR~5 from 05/2023) d/t HTN + DM ([place] Dr in [place]), admit as xfer [facility]H with dyspnea (COVID+) and DKA. ?NSTEMI. TTE 10/18/24 - EF 28% - new. S/p LHC/RHC on 10/31/24 - Moderate LAD disease, Severe stenosis of nondominant right coronary artery, normal LVEDP, medically manage. 30 ml contrast used. Assessment CKD 5 NSTEMI Anemia of CKD Hypocalcemia COVID + Plan Continue to trend renal function daily. Remains stable. Continue tums 500mg daily for hx hypocalcemia Hx secondary hyperparathyroidism - continue calcitriol 0.5 mcg daily Subjective HPI Patient states that he feels great tolerated cardiac cath well. Offering no complaints Review of Systems Respiratory: negative Cardiovascular: negative Gastrointestinal: negative Neurological: negative Remainder ROS were negative except as mentioned above in HPI. Objective Medications Medication/MAR Report: Medications Scheduled Medication Ordered Dose/Rate, Route, Frequency Last Action aspirin chewable tablet 81 mg 81 mg, PO, Daily Given, 81 mg at 10/31 913 atorvastatin (LIPITOR) tablet 80 mg 80 mg, PO, Daily Given, 80 mg at 10/31 913 calcitriol (ROCALTROL) capsule 0.5 mcg 0.5 mcg, PO, Daily Given, 0.5 mcg at 10/31 913 calcium carbonate (TUMS) chewable tablet 500 mg 500 mg, PO, Daily Given, 500 mg at 10/31 919 chlorhexidine (PERIDEX) 0.12 % oral solution 15 mL 15 mL, MT, BID Given, 15 mL at 10/31 2030 darbepoetin kelley (ARANESP) injection 60 mcg 60 mcg, SC, Weekly Given, 60 mcg at 10/30 953 insulin glargine (LANtus/SEMGLEE) 100 units/mL injection 8 Units 8 Units, SC, Daily Ordered insulin lispro (HumaLOG/ADMELOG) 100 units/mL injection 1-4 Units 1-4 Units, SC, NIGHTLY & 2AM Given, 1 Units at 10/28 2137 insulin lispro (HumaLOG/ADMELOG) 100 units/mL injection 1-6 Units 1-6 Units, SC, TID with meals Given, 2 Units at 10/29 1745 insulin lispro (HumaLOG/ADMELOG) 100 units/mL injection 2-9 Units 2-9 Units, SC, TID with meals Given, 9 Units at 10/30 1829 levothyroxine (SYNTHROID, LEVOTHROID) tablet 25 mcg 25 mcg, PO, Daily 6AM Given, 25 mcg at 11/01 613 linagliptin (TRADJENTA) tablet 5 mg 5 mg, PO, Daily Given, 5 mg at 10/31 913 metoPROLOL SUCCINATE (TOPROL-XL) 24 hr tablet 75 mg 75 mg, PO, Daily Given, 75 mg at 10/31 913 senna-docusate (SENNA-S) 8.6-50 MG tablet 2 tablet 2 tablet, PO, Nightly Given, 2 tablet at 10/27 2025 PRN Medication Ordered Dose/Rate, Route, Frequency Last Action bisacodyl (DULCOLAX) suppository 10 mg 10 mg, RE, Daily PRN Ordered dextrose 50 % solution 12.5 g (Or Linked Group #1) 12.5 g, IV, Q15 Min PRN Given, 12.5 g at 10/27 105 dextrose 50 % solution 25 g (Or Linked Group #1) 25 g, IV, Q15 Min PRN See Alternative, 10/27 105 glucagon (GLUCAGEN) injection 1 mg (Or Linked Group #1) 1 mg, IM, Daily PRN See Alternative, 10/27 105 glucose (GLUTOSE 15) 40 % oral gel 37.5 g (Or Linked Group #1) 1 Tube, PO, Q15 Min PRN See Alternative, 10/27 105 glucose (GLUTOSE 15) 40 % oral gel 75 g (Or Linked Group #1) 2 Tube, PO, Q15 Min PRN See Alternative, 10/27 105 lactulose (ENULOSE) 10 gm/15 mL solution 20 g 30 mL, PO, Q4H PRN Ordered naloxone (NARCAN) 0.4 mg/mL injection 0.4 mg 0.4 mg, IV, Q5 Min PRN Ordered Allergy No Known Allergies Physical Exam Vitals: 10/31/24 2045 10/31/24 2300 11/01/24 0620 11/01/24 0731 BP: (!) 163/73 (!) 143/66 (!) 144/71 BP Location: Left arm Left arm Left arm Patient Position: Lying Lying Pulse: 78 70 67 Resp: 16 18 Temp: 97.9 ??F (36.6 ??C) 96.7 ??F (35.9 ??C) TempSrc: Tympanic Tympanic SpO2: 94% 95% 95% Weight: 70.5 kg (155 lb 6.8 oz) Height: Intake/Output Summary (Last 24 hours) at 11/01/2024 0734 Last data filed at 11/01/2024 0601 Gross per 24 hour Intake 521.95 ml Output 2505 ml Net -1983.05 ml General appearance: Comfortable appearing, ambulating around the room Lungs: On room air. Breath sounds throughout Heart: Regular rate and rhythm Abdomen: soft, non-tender, BS normal Edema: None Skin: Skin color, texture normal Relevant data reviewed Notable labs are: Recent Labs 10/30/24 0709 10/31/24 0716 NA 142 144 K 4.5 4.7 CL 101 104 CO2 27 24 BUN 40* 40* CREAT 4.3* 4.6* CALCIUM 9.2 8.8 MG 1.7 1.7 PHOS 5.1* 4.7* Recent Labs 10/30/24 0709 10/31/24 0716 11/01/24 0620 WBC 9.3 8.9 9.1 HGB 9.3* 9.6* 9.2* HCT 30.3* 31.4* 29.7* PLT 304 289 261 I have reviewed the laboratory data within the past 24 hours Sign: Veronica Hamm PA-C 11/01/2024 7:34 AM Associated attestation - Garth Perez DO - 11/01/2024 12:58 PM EST ATTESTATION: I personally attended the patient and performed the substantive portion of the medical decision making. I decided on and finalized the complete management plan for the total number and complexity of problems addressed at the encounter. I take responsibility for that plan with its inherent risk of complications and/or morbidity or mortality of patient management. Stable renal function post cath. Medical management moving forward. Continue Tums for low calcium level. Calcitriol daily. Needs to continue follow-up with banking specialist on d/c. Sign: Garth Perez DO 11/01/2024 12:58 PM * Ysabel Jnoes PA-C - 11/01/2024 7:25 AM EST Images from the original note were not included. 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 He was initially admitted to the MICU on insulin drip. Troponin found to be elevated [id number], EKG noted to be sinus with poor R wave progression and nonspecific ST changes. He was initiated on a heparin drip for NSTEMI. Course further complicated by acute HFrEF LVEF 28%, COVID, and ALISA on CKD. [facility] with moderate proximal and mid LAD calcified focal stenosis, severe stenosis of nondominant RCA, recommended for medical management. Plan [facility] 10/31: moderate proximal and mid LAD calcified focal stenosis, severe stenosis of nondominant RCA; medically manage CAD in light of moderate LAD disease and CKD stage IV; LVEDP 1mmHg NSTEMI NSVT HsT peak 4239 Estimated LDL 52 -NSVT on 10/29 -continue ASA 81mg daily, atorvastatin 80mg daily, Toprol 75mg daily -continuous telemetry -discussed risk factor modification -cardiac rehab referral outpatient Acute HFrEF (LVEF 28%), AHA/ACC Stage C, NYHA Class III Moderate MR HTN proBNP >70k 10/18 -Appears euvolemic. Warm and dry -Unclear trend in weight; documented 2.5L UOP/24hr -JVP normal -GDMT HFrEF: -BB: Toprol 75 mg daily - ACEI/ARB/ARNI: Defer to nephrology - MRA: Contraindicated given renal dysfunction - SGT2i: Deferred to nephrology given renal dysfunction -given hypertensive with SBP 140s-160s, recommend starting hydralazine 25mg TID and isordil 10mg TID -Euvolemic at this time, continue to monitor off diuretics -will require repeat echo in 3 months to reevaluate LVEF and determine need for referral for consideration of primary prevention ICD -Strict I+O's and daily standing weights -Keep K>4, Mag >2 T2DM A1c 8.7% -Would benefit from improved glycemic control to minimize cardiovascular risk Case was discussed with cardiology attending Dr. Valentino who is in agreement with plan of care as above. [facility] Cardiology will continue to follow. Subjective Denies chest pain, shortness of breath, palpitations, abdominal pain or nausea. Feeling better and looking forward to getting out of the hospital. Objective Telemetry Reviewed: Sinus rhythm 60s-80s bpm with occasional PVCs Last Vitals Pulse:70,Resp:18,BP:(!) 143/66,SpO2:95 %,Weight:70.5 kg (155 lb 6.8 oz) Temp Last 24 hrs: Temp Min: 97.3 ??F (36.3 ??C) Max: 98.2 ??F (36.8 ??C) Intake/Output Summary (Last 24 hours) at 11/01/2024 0725 Last data filed at 11/01/2024 0601 Gross per 24 hour Intake 521.95 ml Output 2505 ml Net -1983.05 ml Physical Exam General: Elderly male laying in hospital bed in no acute distress HEENT: Anicteric. On room air Neck: JVP normal. Chest: Diminished bilateral bases Cardiac: Regular rate and rhythm, S1 and S2, no rubs/gallops; 2/6 murmur Abdomen: Soft, non-tender to palpation, non-distended Extremities: Warm. Well-perfused. No edema. Vascular: 2+ bilateral radial pulses; R radial cath site C/D/I with no ecchymosis or hematoma Skin: Warm and dry. Neurologic: Alert and oriented. Grossly nonfocal. Medications Medications Scheduled Medication Ordered Dose/Rate, Route, Frequency Last Action aspirin chewable tablet 81 mg 81 mg, PO, Daily Given, 81 mg at 10/31 913 atorvastatin (LIPITOR) tablet 80 mg 80 mg, PO, Daily Given, 80 mg at 10/31 913 calcitriol (ROCALTROL) capsule 0.5 mcg 0.5 mcg, PO, Daily Given, 0.5 mcg at 10/31 913 calcium carbonate (TUMS) chewable tablet 500 mg 500 mg, PO, Daily Given, 500 mg at 10/31 919 chlorhexidine (PERIDEX) 0.12 % oral solution 15 mL 15 mL, MT, BID Given, 15 mL at 10/31 2030 darbepoetin kelley (ARANESP) injection 60 mcg 60 mcg, SC, Weekly Given, 60 mcg at 10/30 09 insulin glargine (LANtus/SEMGLEE) 100 units/mL injection 8 Units 8 Units, SC, Daily Ordered insulin lispro (HumaLOG/ADMELOG) 100 units/mL injection 1-4 Units 1-4 Units, SC, NIGHTLY & 2AM Given, 1 Units at 10/28 2137 insulin lispro (HumaLOG/ADMELOG) 100 units/mL injection 1-6 Units 1-6 Units, SC, TID with meals Given, 2 Units at 10/29 1745 insulin lispro (HumaLOG/ADMELOG) 100 units/mL injection 2-9 Units 2-9 Units, SC, TID with meals Given, 9 Units at 10/30 1829 levothyroxine (SYNTHROID, LEVOTHROID) tablet 25 mcg 25 mcg, PO, Daily 6AM Given, 25 mcg at 11/01 06 linagliptin (TRADJENTA) tablet 5 mg 5 mg, PO, Daily Given, 5 mg at 10/31 913 metoPROLOL SUCCINATE (TOPROL-XL) 24 hr tablet 75 mg 75 mg, PO, Daily Given, 75 mg at 10/31 913 senna-docusate (SENNA-S) 8.6-50 MG tablet 2 tablet 2 tablet, PO, Nightly Given, 2 tablet at 10/27 2025 PRN Medication Ordered Dose/Rate, Route, Frequency Last Action bisacodyl (DULCOLAX) suppository 10 mg 10 mg, RE, Daily PRN Ordered dextrose 50 % solution 12.5 g (Or Linked Group #1) 12.5 g, IV, Q15 Min PRN Given, 12.5 g at 10/27 105 dextrose 50 % solution 25 g (Or Linked Group #1) 25 g, IV, Q15 Min PRN See Alternative, 10/27 105 glucagon (GLUCAGEN) injection 1 mg (Or Linked Group #1) 1 mg, IM, Daily PRN See Alternative, 10/27 105 glucose (GLUTOSE 15) 40 % oral gel 37.5 g (Or Linked Group #1) 1 Tube, PO, Q15 Min PRN See Alternative, 10/27 105 glucose (GLUTOSE 15) 40 % oral gel 75 g (Or Linked Group #1) 2 Tube, PO, Q15 Min PRN See Alternative, 10/27 105 lactulose (ENULOSE) 10 gm/15 mL solution 20 g 30 mL, PO, Q4H PRN Ordered naloxone (NARCAN) 0.4 mg/mL injection 0.4 mg 0.4 mg, IV, Q5 Min PRN Ordered Relevant data reviewed Results from last 7 days Lab Units 11/01/24 0158 10/31/24 2120 10/31/24 1645 10/31/24 0813 10/31/24 0716 10/30/24 0843 10/30/24 0709 10/29/24 0751 10/29/24 0720 SODIUM mmol/L -- -- -- -- 144 -- 142 -- 142 POTASSIUM mmol/L -- -- -- -- 4.7 -- 4.5 -- 4.0 CHLORIDE mmol/L -- -- -- -- 104 -- 101 -- 103 CO2 mmol/L -- -- -- -- 24 -- 27 -- 26 BUN mg/dL -- -- -- -- 40* -- 40* -- 44* CREATININE mg/dL -- -- -- -- 4.6* -- 4.3* -- 4.3* CALCIUM mg/dL -- -- -- -- 8.8 -- 9.2 -- 8.8 GLUCOSE mg/dL -- -- -- -- 82 -- 80 -- 91 GLUCOSE, POC mg/dL 122* 128* 74 < > -- < > -- < > -- EGFR -- -- -- -- 12* -- 13* -- 13* < > = values in this interval not displayed. Lab Results Component Value Date MG 1.7 10/31/2024 Results from last 7 days Lab Units 11/01/24 0620 10/31/24 0716 10/30/24 0709 WHITE BLOOD CELL COUNT Thou/uL 9.1 8.9 9.3 HEMOGLOBIN g/dL 9.2* 9.6* 9.3* HEMATOCRIT % 29.7* 31.4* 30.3* PLATELET COUNT Thou/uL 261 289 304 Lab Results Component Value Date HSTNT 396 (HH) 10/31/2024 HSTNT 2,071 (HH) 10/26/2024 HSTNT 2,468 (HH) 10/25/2024 Lab Results Component Value Date PROBNP 47,866 (H) 10/29/2024 Lab Results Component Value Date HGBA1C 8.7 (H) 10/19/2024 Imaging Studies All appropriate imaging studies within the past 24 hours reviewed Sign Ysabel Jones PA-C 11/01/2024 7:25 AM * Amita Burr RN - 10/31/2024 8:26 PM EST Pt transported to [facility] on monitor. 0 KENDALL Richardson and this RN agree RRA TR band with 4cc air in place C/D/I. No hematoma. Pulses present. * Osmar Valdez MD - 10/31/2024 4:57 PM EST HOSPITAL MEDICINE PROGRESS NOTE Assessment & Plan Principal Problem: DKA (diabetic ketoacidosis) (HCC) (POA: Yes) Active Problems: NSTEMI (non-ST elevated myocardial infarction) (HCC) (POA: Unknown) COVID (POA: Yes) Heart failure with reduced ejection fraction (HCC) (POA: Unknown) Pulmonary edema with left heart failure (HCC) (POA: Unknown) Resolved Problems: Brief Summary Neymar Wilder is an 79-year-old male with past medical history of CHFrEF, hypertension, CKD 5, diabetes and hypothyroidism who presented to outside hospital with URI symptoms and his hospital course was complicated with DKA, NSTEMI and hypoxemic respiratory failure for which he was transferred to for further management. Assessment and Plan 1) NSTEMI Acute CHFrEF B/L Pleural effusions Concern for CHF exacerbation at the time of admission. Echocardiogram showed EF of 28%. Chest x-rayshowed evidence of bilateral pulmonary edema for which a bilateral thoracentesis was performed. - Appreciate evaluation by cardiology and interventional cardiology teams. - Continue secondary prevention with aspirin and statin - Heparin drip for NSTEMI. Pending coronary angiogram - GDMT with Toprol-XL 75 mg daily. Further medications limited due to CKD 2) DKA DMII Appreciate close follow-up by endocrine service. Blood glucose levels are well- controlled now - Currently on Lantus 8 units daily along with insulin sliding scale - Continue Tradjenta 3) CKD V Nephrogenic anemia Hypocalcemia Appreciate evaluation by nephrology service. Renal functions are stable Continue Tums Continue calcitriol Continue Aranesp 4) Acute hypoxemic respiratory failure COVID Has been 10 days since he tested positive for COVID. Can discontinue precautions. 5) Hypothyroidism Continue levothyroxine Diet: Cardiac DVT ppx: Heparin Code: Full Quality Metrics DVT PROPHYLAXIS Risk Assessment Scores and Dates: VTE Time Out IMPROVE SCORE: 2 (10/18/2024 10:24 AM) Interpretation - High Risk Chemical Prophylaxis heparin (porcine) IV infusion 25,000 units in 500 mL 0.45% NaCl (premix) Intravenous Continuous heparin (porcine) 1000 unit/mL injection 2,100 Units Intravenous Every 6 hours PRN Mechanical Prophylaxis SCDs are ordered - Bilateral (Knee High) Antibiotic Stewardship (Disclaimer : absence of data in section implies that patient is not on any antibiotics). ANTIBIOTIC TIME OUT na Expected Date of Discharge 11/01/2024 Subjective Chief complaint Chief Complaint Patient presents with Abnormal Test Result Patient is being seen for acute medical problems and follow-up for chronic medical issues as mentioned in the assessment and plan above. Patient was seen and examined at bedside. Appears quite comfortable and not in any acute distress. Denies any chest pain or shortness of breath. Overnight Events/Patient Discussion: None Objective Vitals: 10/30/24 0840 10/30/24 0950 10/30/24 1626 10/30/241951 BP: (!) 146/68 (!) 153/67 (!) 159/71 (!) 104/58 Pulse: 66 69 72 73 Resp: 18 (!) 22 20 Temp: 97.9 ??F (36.6 ??C) 96.8 ??F (36 ??C) 99.1 ??F (37.3 ??C) SpO2: 93% 97% 94% 10/31/24 0817 10/31/24 0914 10/31/24 1207 10/31/24 1500 BP: (!) 145/73 (!) 152/86 138/64 129/62 Pulse: 67 74 68 61 Resp: 20 20 20 Temp: 98.2 ??F (36.8 ??C) 98.1 ??F (36.7 ??C) SpO2: 97% 100% 99% Physical Exam Vitals reviewed. Constitutional: General: He is not in acute distress. HENT: Mouth/Throat: Mouth: Mucous membranes are moist. Eyes: Conjunctiva/sclera: Conjunctivae normal. Cardiovascular: Rate and Rhythm: Normal rate and regular rhythm. Heart sounds: No murmur heard. Pulmonary: Effort: Pulmonary effort is normal. No respiratory distress. Breath sounds: Normal breath sounds. No wheezing. Abdominal: General: Bowel sounds are normal. There is no distension. Palpations: Abdomen is soft. Tenderness: There is no abdominal tenderness. Musculoskeletal: Right lower leg: No edema. Left lower leg: No edema. Skin: General: Skin is warm and dry. Neurological: Mental Status: He is alert. Mental status is at baseline. Psychiatric: Mood and Affect: Mood normal. Behavior: Behavior normal. Relevant data reviewed Results from last 7 days Lab Units 10/31/24 0716 WHITE BLOOD CELL COUNT Thou/uL 8.9 HEMOGLOBIN g/dL 9.6* HEMATOCRIT % 31.4* PLATELET COUNT Thou/uL 289 Results from last 7 days Lab Units 10/31/24 1645 10/31/24 0813 10/31/24 0716 SODIUM mmol/L -- -- 144 POTASSIUM mmol/L -- -- 4.7 CHLORIDE mmol/L -- -- 104 CO2 mmol/L -- -- 24 BUN mg/dL -- -- 40* CREATININE mg/dL -- -- 4.6* EGFR -- -- 12* GLUCOSE mg/dL -- -- 82 GLUCOSE, POC mg/dL 74 < > -- CALCIUM mg/dL -- -- 8.8 < > = values in this interval not displayed. Sign Osmar Valdez MD 10/31/2024 4:57 PM * Abbey Burr RN - 10/31/2024 4:29 PM EST Certified Diabetes Care & Orchestra Teacher Note: Patient meets criteria for evaluation due to the following: New to bolus insulin, Uncontrolled diabetes DM management Tangela Reed PA-C at this time Assessment, DME & Transition of Care Assessment T2DM uncontrolled. Patient developed malaise, dyspnea, cough over 2-3 days, presented to OSH, foundto be COVID positive. His BHB was 5.88 and he was treated for DKA and sent to . Met with patient and his son at bedside. Patient states he has been taking his basal/lantus insulinat night not during the day. Since the rapid acting will be added to his amount of carbs he is eating at a fixed dose at meal, this CDCES requested to Tangela Reed PA-C to change basal insulin from days back to nights. He will most likely get confused with taking two different types of insulin at the same time for breakfast. Please see below for education given to patient today. Home DM meds include: Lantus SoloStar 10-14 units - patient reports he takes what is written on the pen, unable to clarify exact dose, recorded as 15 units daily in chart Januvia 100 mg daily. POCT Glucose Monitoring: AC, HS and 2 AM Self Monitoring BG for home: AC and HS 1. Equipment: Has METER, at home with test strips and lancets. He thinks he was testing once daily and at times would not test. He was encouraged to test 4 times a day at home, before meals and at bedtime as we add rapid acting insulin to his diabetes management schedule. He agrees. CGM discussed with patient. He only has a flip phone. If he is still here on Tuesday this [facility] can give him a reader with a CGM to try. If not, he knows he can follow up with his PCP to obtain a prescription for a reader and a sensor. Both dexcom G7 and freestyle kash 3 discussed with both patient and his son. 2. Education: Nutrition consult for carbohydrate education Reviewed diabetes specific meal plan including identification of carbohydrates, reading food labels, using the plate method for meal planning, snacking, importance of limiting/eliminating beverages with sugar from diet unless treating low BG. Given [facility] Diabetes Tool Kit, Thriving with diabetes. Sections of importance in the booklet highlighted and reviewed with pt. 3. Survival Skills Needed & Taught: Insulin Pen Reinforcement: Pt. was able to verbally explain to this CDCES how he would place and prime needle, dial up dose and inject into his skin. Injection site selection and rotation reviewed with patient. He did not want to demonstrate on a practice insulin pen. How and when to take diabetes medication: Review of Lantus and attempt to switch back to nightly. He is requesting this. Bolus/rapid acting insulin with meals discussed in detail. He knows he will only take the amount ordered by the provider if he is eating a meal with carbs. He also knows to take the rapid acting insulin when he starts to eat and no more than 20 minutes after he finishing eating. He is aware he will be stopping his Januvia and adding Tradjenta for his by mouth diabetes medication. Tradjenta reviewed with patient. BG target and when/who to call after discharge. Fasting/premeal 80-130 mg/dL, <180mg/dL 2 hours post prandial and 90-150mg/dL at bedtime taught to pt. Pt. aware to notify provider with BG greater than 250 mg/dL twice in a row and/or BG consistently below target range for further guidance. Hypoglycemia/Hyperglycemia. Treatment for hypo/hyperglycemia reviewed including need for 15g of sugar (4 oz juice, 4 oz regular soda or 4 glucose tabs) to treat BG <70 mg/dL. Sick day management Symptoms of and DKA prevention All above areas highlighted in diabetes booklet. 4. Needs for discharge (DME & Transition of Care): Follow up appointment with Diaz Akers MD (PCP) in 1-2 weeks. Rx for BD DEBBY pen needles RX for Rapid Acting Insulin Pens: (Humalog, Admelog, Novolog, Fiasp, Apidra): Dosing per diabetes provider Current Diet: Diet NPO; Meds, Sips of clears Current A1C: Lab Results Component Value Date HGBA1C 8.7 (H) 10/19/2024 POCT Glucose: Recent Labs 10/30/24 1400 10/30/24 1624 10/30/24 2103 10/31/24 0218 10/31/24 0716 10/31/24 0813 10/31/24 1204 GLUC 99 124* 147* 88 82 84 92 Signed: Abbey RODNEY, RN, [facility] 10/31/24 8PM * Garth Perez DO - 10/31/2024 9:51 AM EST Date 10/31/2024 Assessment & Plan 79y/o male PMHx DM, HTN, CKD V (bCR~5 from 05/2023) d/t HTN + DM (neph Dr in [place]), admit as xfer fromOSH with dyspnea (COVID+) and DKA. ?NSTEMI. TTE 10/18/24 - EF 28% - new. Assessment CKD 5 NSTEMI Anemia of CKD Hypocalcemia COVID + Plan Renal fcn essentially unchanged RADHA risk no different Continue tums 500mg daily for hx hypocalcemia Hx secondary hyperparathyroidism - continue calcitriol 0.5 mcg daily Hopefully LHC can get done soon Subjective HPI LHC deferred yesterday Neymar remains on heparin infusion and COVID isolation Review of Systems Respiratory: negative Cardiovascular: negative Gastrointestinal: negative Neurological: negative Remainder ROS were negative except as mentioned above in HPI. Objective Medications Medication/MAR Report: Medications Scheduled Medication Ordered Dose/Rate, Route, Frequency Last Action aspirin chewable tablet 81 mg 81 mg, PO, Daily Given, 81 mg at 10/31 913 atorvastatin (LIPITOR) tablet 80 mg 80 mg, PO, Daily Given, 80 mg at 10/31 913 calcitriol (ROCALTROL) capsule 0.5 mcg 0.5 mcg, PO, Daily Given, 0.5 mcg at 10/31 913 calcium carbonate (TUMS) chewable tablet 500 mg 500 mg, PO, Daily Given, 500 mg at 10/31 919 chlorhexidine (PERIDEX) 0.12 % oral solution 15 mL 15 mL, MT, BID Given, 15 mL at 10/31 912 darbepoetin kelley (ARANESP) injection 60 mcg 60 mcg, SC, Weekly Given, 60 mcg at 10/30 953 insulin glargine (LANtus/SEMGLEE) 100 units/mL injection 8 Units 8 Units, SC, Daily Given, 8 Units at 10/31 919 insulin lispro (HumaLOG/ADMELOG) 100 units/mL injection 1-4 Units 1-4 Units, SC, NIGHTLY & 2AM Given, 1 Units at 10/28 2137 insulin lispro (HumaLOG/ADMELOG) 100 units/mL injection 1-6 Units 1-6 Units, SC, TID with meals Given, 2 Units at 10/29 1745 insulin lispro (HumaLOG/ADMELOG) 100 units/mL injection 2-9 Units 2-9 Units, SC, TID with meals Given, 9 Units at 10/30 183 levothyroxine (SYNTHROID, LEVOTHROID) tablet 25 mcg 25 mcg, PO, Daily 6AM Given, 25 mcg at 10/31 0541 linagliptin (TRADJENTA) tablet 5 mg 5 mg, PO, Daily Given, 5 mg at 10/31 913 metoPROLOL SUCCINATE (TOPROL-XL) 24 hr tablet 75 mg 75 mg, PO, Daily Given, 75 mg at 10/31 913 senna-docusate (SENNA-S) 8.6-50 MG tablet 2 tablet 2 tablet, PO, Nightly Given, 2 tablet at 10/27 2025 Continuous Medication Ordered Dose/Rate, Route, Frequency Last Action sodium chloride 0.9% (NS) infusion 50 mL/hr, IV, Continuous New Bag, 50 mL/hr at 10/31 909 heparin (porcine) IV infusion 25,000 units in 500 mL 0.45% NaCl (premix) 12 Units/kg/hr, IV, Continuous Rate Change - High Risk Medication, 14 Units/kg/hr at 10/31 916 PRN Medication Ordered Dose/Rate, Route, Frequency Last Action bisacodyl (DULCOLAX) suppository 10 mg 10 mg, RE, Daily PRN Ordered dextrose 50 % solution 12.5 g (Or Linked Group #1) 12.5 g, IV, Q15 Min PRN Given, 12.5 g at 10/27 105 dextrose 50 % solution 25 g (Or Linked Group #1) 25 g, IV, Q15 Min PRN See Alternative, 10/27 105 glucagon (GLUCAGEN) injection 1 mg (Or Linked Group #1) 1 mg, IM, Daily PRN See Alternative, 10/27 105 glucose (GLUTOSE 15) 40 % oral gel 37.5 g (Or Linked Group #1) 1 Tube, PO, Q15 Min PRN See Alternative, 10/27 105 glucose (GLUTOSE 15) 40 % oral gel 75 g (Or Linked Group #1) 2 Tube, PO, Q15 Min PRN See Alternative, 10/27 105 heparin (porcine) 1000 unit/mL injection 2,100 Units 30 Units/kg, IV, Q6H PRN Ordered lactulose (ENULOSE) 10 gm/15 mL solution 20 g 30 mL, PO, Q4H PRN Ordered naloxone (NARCAN) 0.4 mg/mL injection 0.4 mg 0.4 mg, IV, Q5 Min PRN Ordered Allergy No Known Allergies Physical Exam Vitals: 10/30/24 1952 10/31/24 0521 10/31/2481610/31/2414 BP: (!) 104/58 (!) 145/73 (!) 152/86 BP Location: Left arm Left arm Patient Position: Lying Lying Pulse: 73 67 74 Resp: 20 20 Temp: 99.1 ??F (37.3 ??C) 98.2 ??F (36.8 ??C) TempSrc: Tympanic Tympanic SpO2: 94% 97% Weight: 143 lb 11.8 oz (65.2 kg) Height: Intake/Output Summary (Last 24 hours) at 10/31/2024 0951 Last data filed at 10/31/2024 0600 Gross per 24 hour Intake 268.04 ml Output 600 ml Net -331.96 ml General appearance: Comfortable appearing Lungs: CTA bilaterally anteriorly Heart: RRR, S1, S2 normal Abdomen: soft, non-tender, BS normal Edema: None Skin: Skin color, texture normal Relevant data reviewed Notable labs are: Recent Labs 10/28/24 1538 10/29/24 0720 10/30/24 0709 10/31/24 0716 NA 143 142 142 144 K 4.7 4.0 4.5 4.7 CL 105 103 101 104 CO2 25 26 27 24 BUN 48* 44* 40* 40* CREAT 4.3* 4.3* 4.3* 4.6* CALCIUM 8.9 8.8 9.2 8.8 MG 1.8 1.7 1.7 1.7 PHOS 5.2* 4.9* 5.1* 4.7* Recent Labs 10/29/24 0720 10/30/24 0709 10/31/24 0716 WBC 8.5 9.3 8.9 HGB 8.7* 9.3* 9.6* HCT 29.6* 30.3* 31.4* PLT 300 304 289 I have reviewed the laboratory data within the past 24 hours Sign: Garth Perez DO 10/31/2024 9:51 AM * Tangela Reed PA-C - 10/31/2024 9:15 AM EST Endocrinology Progress Note PA - Endocrinology - Medicine Today's Date: 10/31/2024 Admit Date: 10/18/2024 5:10 AM Consult requested by: Osmar Valdez MD Principal Problem: DKA (diabetic ketoacidosis) (HCC) (POA: Yes) Active Problems: NSTEMI (non-ST elevated myocardial infarction) (HCC) (POA: Unknown) COVID (POA: Yes) Heart failure with reduced ejection fraction (HCC) (POA: Unknown) Pulmonary edema with left heart failure (HCC) (POA: Unknown) Resolved Problems: Assessment & Plan Assessment: Neymar Wilder is a 79 y.o. male with T2DM (8.7%-10/19/2023), CKD5, HTN, who presented to OSH with cough, chills, dyspnea, found to have PNA, transferred to with concerns of NSTEMI, DKA. Endocrinology consulted for diabetes BG running tight overnight, basal reduced. Will start moving basal to nighttime per patient preference, dose adjusted to 12 PM for tomorrow. Hospital Plan Decrease to Lantus Insulin 8 units daily. Continue Meal Carb Humalog Insulin Scale: 2-9 units, 3 times a day with meals. See scale below. ICR 1: 7. Continue Meal Correction Humalog Insulin Scale: 1-6 units, 3 times a day with meals. See scale below. ISF 1: 40 > 140. Continue Nightly/0200 Correction Humalog Insulin Scale: 1-4 units. See scale below. ISF 1: 50 > 200. Continue linagliptin 5 mg daily. Glucose checks AC/HS & 0200. Notify endocrine team in the daytime or primary team overnight if BG <70 or >350 mg/dL. Hypoglycemia protocol in place. Please endocrinology team updated on discharge planning including date, disposition. Discharge Planning: Pending needs - patient on basal only at home, would prefer to coordinate similar regimen for discharge. Noted to be on Januvia - would prefer to switch to Tradjenta given renal function. Previous 24 Hours TDD: 19 units (Glargine 10, lispro 9). BG Range: 82-147. Diet: Diet NPO; Meds, Sips of clears Steroids: None. Drips: None. History Diabetes History Diabetes Management: Diaz Akers MD (appears to be PCP). Pre-Admission Regimen: Lantus SoloStar 10-14 units - patient reports he takes what is written on the pen, unable to clarify exact dose, recorded as 15 units daily in chart Januvia 100 mg daily History of Present Illness Patient developed malaise, dyspnea, cough over 2-3 days, presented to OSH, found to be COVID positive Reports that he was not eating very much during this time, as he did not feel good At OSH, BHB elevated to 5.88 Hospital Course 10/18: On presentation, serum glucose 569, bicarb 8, BHB 3.63, AG 28, serum osmolality 359, started on insulin drip 10/19: Endo consulted Subjective Chief Complaint Diabetes Management Subjective Undergoing diabetes education when seen. History Review of Systems Unable to perform ROS: Other Objective Inpatient Orders aspirin, 81 mg, Oral, Daily atorvastatin, 80 mg, Oral, Daily calcitRIOL, 0.5 mcg, Oral, Daily calcium carbonate, 500 mg, Oral, Daily chlorhexidine, 15 mL, Mouth/Throat, BID darbepoetin kelley (ARANESP) injection, 60 mcg, Subcutaneous, Weekly insulin glargine, 10 Units, Subcutaneous, Daily insulin lispro, 1-4 Units, Subcutaneous, NIGHTLY & 2AM insulin lispro, 1-6 Units, Subcutaneous, TID with meals insulin lispro, 2-9 Units, Subcutaneous, TID with meals levothyroxine, 25 mcg, Oral, Daily 6AM linagliptin, 5 mg, Oral, Daily metoPROLOL SUCCINATE, 75 mg, Oral, Daily senna-docusate, 2 tablet, Oral, Nightly No Known Allergies Scales Carb Scale Pre-meal Correction Nighttime Correction (Nightly and 2 AM) MEAL BOLUS ICR: 1: 7g Notify Endo AP if BG <100 prior to giving insulin given age Document Carb Count in MAR Comment Section Hold if NPO or if eats < 14 grams of carbs Give 2 units if eats/drinks 14-20 grams of carbs Give 3 units if eats/drinks 21-27 grams of carbs Give 4 units if eats/drinks 28-34 grams of carbs Give 5 units if eats/drinks 35-41 grams of carbs Give 6 units if eats/drinks 42-48 grams of carbs Give 7 units if eats/drinks 49-55 grams of carbs Give 8 units if eats/drinks 56-62 grams of carbs Give 9 units if eats/drinks 63-69 grams of carbs DO NOT HOLD IF NPO Notify provider if Blood Glucose LESS than 70 For BG 141-180 administer 1 unit For BG 181-220 administer 2 units For BG 221-260 administer 3 units For BG 261-300 administer 4 units For BG 301-340 administer 5 units For BG MORE than 340, administer 6 units AND notify provider DO NOT HOLD IF NPO Notify provider if Blood Glucose LESS than 70 For BG 201-250 administer 1 unit For BG 251-300 administer 2 units For BG 301-350 administer 3 units For BG MORE than 350, administer 4 units AND notify provider Physical Vitals: 10/30/24 1626 10/30/24 1952 10/31/24 0521 10/31/24 0817 BP: (!) 159/71 (!) 104/58 (!) 145/73 BP Location: Left arm Left arm Left arm Patient Position: Lying Lying Lying Pulse: 72 73 67 Resp: (!) Temp: 96.8 ??F (36 ??C) 99.1 ??F (37.3 ??C) 98.2 ??F (36.8 ??C) TempSrc: Tympanic Tympanic Tympanic SpO2: 97% 94% 97% Weight: 65.2 kg (143 lb 11.8 oz) Height: Intake/Output Summary (Last 24 hours) at 10/31/2024 0915 Last data filed at 10/31/2024 0600 Gross per 24 hour Intake 278.04 ml Output 600 ml Net -321.96 ml Physical Exam Vitals reviewed. Constitutional: General: He is not in acute distress. HENT: Head: Normocephalic and atraumatic. Mouth/Throat: Mouth: Mucous membranes are moist. Eyes: General: No scleral icterus. Conjunctiva/sclera: Conjunctivae normal. Pulmonary: Effort: Pulmonary effort is normal. Neurological: Mental Status: He is alert and oriented to person, place, and time. Labs Lab Results Component Value Date HGBA1C 8.7 (H) 10/19/2024 Recent Labs 10/30/24 1624 10/30/24 2103 10/31/24 0218 10/31/24 0716 10/31/24 0813 GLUC 124* 147* 88 82 84 Lab Results Component Value Date ANIONGAP 16 10/31/2024 ANIONGAP 14 10/30/2024 ANIONGAP 13 10/29/2024 During the day of the visit, 43 minutes spent was spent on the following: Examining the patient Chart review in preparation for the visit Documenting in the patient record Reviewing Labs & Radiology Signed Tangela Reed PA-C Endocrinology - Medicine 10/31/2024 3:17 PM * Ysabel Jones PA-C - 10/31/2024 8:05 AM EST Images from the original note were not included. 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 He was initially admitted to the MICU on insulin drip. Troponin found to be elevated 4836-9894, EKG noted to be sinus with poor R wave progression and nonspecific ST changes. He was initiated on a heparin drip forNSTEMI. Course further complicated by acute HFrEF LVEF 28%, COVID, and ALISA on CKD. Awaiting [facility] today. Plan NSTEMI NSVT HTN HsT peak 4239 Estimated LDL 52 -plan for LHC today, NPO pre-procedure -NSVT on 10/29 -heparin gtt pre-procedure -continue ASA 81mg daily, atorvastatin 80mg daily, Toprol 75mg daily -continuous telemetry Acute HFrEF (LVEF 28%), AHA/ACC Stage C, NYHA Class III Moderate MR proBNP >70k 10/18 -Appears euvolemic. Warm and dry -Weight: 143lbs today from 148lbs on admit -I+Os: Unclear given lack of documentation available to review -JVP normal -GDMT HFrEF: -BB: Toprol 75 mg daily - ACEI/ARB/ARNI: Defer to nephrology - MRA: Contraindicated given renal dysfunction - SGT2i: Deferred to nephrology given renal dysfunction -Hold further diuretics at this time awaiting C -Strict I+O's and daily standing weights -Keep K>4, Mag >2 T2DM A1c 8.7% -Would benefit from improved glycemic control to minimize cardiovascular risk Case was discussed with cardiology attending Dr. Valentino who is in agreement with plan of care as above. [facility] Cardiology will continue to follow. Subjective Denies chest pain, shortness of breath, palpitations, or orthopnea. Feels good today. Is eager to get cath procedure. Objective Telemetry Reviewed: Sinus rhythm 60s-70s bpm with PACs and PVCs Last Vitals Pulse:73,Resp:20,BP:(!) 104/58,SpO2:94 %,Weight:65.2 kg (143 lb 11.8 oz) Temp Last 24 hrs: Temp Min: 96.8 ??F (36 ??C) Max: 99.1 ??F (37.3 ??C) Intake/Output Summary (Last 24 hours) at 10/31/2024 0805 Last data filed at 10/31/2024 0600 Gross per 24 hour Intake 278.04 ml Output 600 ml Net -321.96 ml Physical Exam General: Elderly male laying in hospital bed in no acute distress HEENT: Anicteric. Nasal cannula present Neck: JVP normal. Chest: Absent lung sounds right base and severely diminished lung sounds left base with crackles Cardiac: Regular rate and rhythm, S1 and S2, no rubs/gallops; 2/6 murmur Abdomen: Soft, non-tender to palpation, non-distended Extremities: Warm. Well-perfused. No edema. Vascular: 2+ bilateral radial pulses Skin: Warm and dry. Neurologic: Alert and oriented. Grossly nonfocal. Medications Medications Scheduled Medication Ordered Dose/Rate, Route, Frequency Last Action aspirin chewable tablet 81 mg 81 mg, PO, Daily Given, 81 mg at 10/30 951 atorvastatin (LIPITOR) tablet 80 mg 80 mg, PO, Daily Given, 80 mg at 10/30 950 calcitriol (ROCALTROL) capsule 0.5 mcg 0.5 mcg, PO, Daily Given, 0.5 mcg at 10/30 948 calcium carbonate (TUMS) chewable tablet 500 mg 500 mg, PO, Daily Ordered chlorhexidine (PERIDEX) 0.12 % oral solution 15 mL 15 mL, MT, BID Given, 15 mL at 10/30 2156 darbepoetin kelley (ARANESP) injection 60 mcg 60 mcg, SC, Weekly Given, 60 mcg at 10/30 953 insulin glargine (LANtus/SEMGLEE) 100 units/mL injection 10 Units 10 Units, SC, Daily Given, 10 Units at 01/21 0954 insulin lispro (HumaLOG/ADMELOG) 100 units/mL injection 1-4 Units 1-4 Units, SC, NIGHTLY & 2AM Given, 1 Units at 10/28 2137 insulin lispro (HumaLOG/ADMELOG) 100 units/mL injection 1-6 Units 1-6 Units, SC, TID with meals Given, 2 Units at 10/29 1745 insulin lispro (HumaLOG/ADMELOG) 100 units/mL injection 2-9 Units 2-9 Units, SC, TID with meals Given, 9 Units at 10/30 1830 levothyroxine (SYNTHROID, LEVOTHROID) tablet 25 mcg 25 mcg, PO, Daily 6AM Given, 25 mcg at 10/31 0541 linagliptin (TRADJENTA) tablet 5 mg 5 mg, PO, Daily Given, 5 mg at 10/30 0949 metoPROLOL SUCCINATE (TOPROL-XL) 24 hr tablet 75 mg 75 mg, PO, Daily Given, 75 mg at 10/30 0950 senna-docusate (SENNA-S) 8.6-50 MG tablet 2 tablet 2 tablet, PO, Nightly Given, 2 tablet at 10/27 2025 Continuous Medication Ordered Dose/Rate, Route, Frequency Last Action sodium chloride 0.9% (NS) infusion 50 mL/hr, IV, Continuous Ordered heparin (porcine) IV infusion 25,000 units in 500 mL 0.45% NaCl (premix) 12 Units/kg/hr, IV, Continuous Rate/Dose Verify, 15 Units/kg/hr at 10/31 0600 PRN Medication Ordered Dose/Rate, Route, Frequency Last Action bisacodyl (DULCOLAX) suppository 10 mg 10 mg, RE, Daily PRN Ordered dextrose 50 % solution 12.5 g (Or Linked Group #1) 12.5 g, IV, Q15 Min PRN Given, 12.5 g at 10/27 105 dextrose 50 % solution 25 g (Or Linked Group #1) 25 g, IV, Q15 Min PRN See Alternative, 10/27 105 glucagon (GLUCAGEN) injection 1 mg (Or Linked Group #1) 1 mg, IM, Daily PRN See Alternative, 10/27 105 glucose (GLUTOSE 15) 40 % oral gel 37.5 g (Or Linked Group #1) 1 Tube, PO, Q15 Min PRN See Alternative, 10/27 105 glucose (GLUTOSE 15) 40 % oral gel 75 g (Or Linked Group #1) 2 Tube, PO, Q15 Min PRN See Alternative, 10/27 105 heparin (porcine) 1000 unit/mL injection 2,100 Units 30 Units/kg, IV, Q6H PRN Ordered lactulose (ENULOSE) 10 gm/15 mL solution 20 g 30 mL, PO, Q4H PRN Ordered naloxone (NARCAN) 0.4 mg/mL injection 0.4 mg 0.4 mg, IV, Q5 Min PRN Ordered Relevant data reviewed Results from last 7 days Lab Units 10/31/24 0218 10/30/24 2103 10/30/24 1624 10/30/24 0843 10/30/24 0709 10/29/24 0751 10/29/24 0720 10/28/24 1659 10/28/24 1538 SODIUM mmol/L -- -- -- -- 142 -- 142 -- 143 POTASSIUM mmol/L -- -- -- -- 4.5 -- 4.0 -- 4.7 CHLORIDE mmol/L -- -- -- -- 101 -- 103 -- 105 CO2 mmol/L -- -- -- -- 27 -- 26 -- 25 BUN mg/dL -- -- -- -- 40* -- 44* -- 48* CREATININE mg/dL -- -- -- -- 4.3* -- 4.3* -- 4.3* CALCIUM mg/dL -- -- -- -- 9.2 -- 8.8 -- 8.9 GLUCOSE mg/dL -- -- -- -- 80 -- 91 -- 208* GLUCOSE, POC mg/dL 88 147* 124* < > -- < > -- < > -- EGFR -- -- -- -- 13* -- 13* -- 13* < > = values in this interval not displayed. Lab Results Component Value Date MG 1.7 10/30/2024 Results from last 7 days Lab Units 10/30/24 0709 10/29/24 0720 10/28/24 0700 WHITE BLOOD CELL COUNT Thou/uL 9.3 8.5 9.2 HEMOGLOBIN g/dL 9.3* 8.7* 8.7* HEMATOCRIT % 30.3* 29.6* 29.1* PLATELET COUNT Thou/uL 304 300 326 Lab Results Component Value Date HSTNT 2,071 () 10/26/2024 HSTNT 2,468 (HH) 10/25/2024 HSTNT 2,413 (HH) 10/25/2024 Lab Results Component Value Date PROBNP 47,866 (H) 10/29/2024 Lab Results Component Value Date HGBA1C 8.7 (H) 10/19/2024 Imaging Studies All appropriate imaging studies within the past 24 hours reviewed (actual images) Sign Ysabel Jones PA-C 10/31/2024 8:05 AM * Thomas Medrano MD - 10/30/2024 9:43 AM EST [facility] Medicine Progress note Assessment & Plan NSTEMI Acute on chronic HFrEF, EF 28% Moderate MR Acute hypoxemic respiratory failure, in setting of ADHF Primary hypertension -Transferred from outside hospital due to DKA and NSTEMI. On admission: High- sensitivity troponin 4100, NT proBNP 70K > 47k. CXR with pulmonary edema -S/p bilateral thoracentesis 10/29/2024 -TTE showed EF of 28% on 10/18/2024. -daily evaluation for diuretics need -Continue aspirin 81 mg, atorvastatin 80 mg. On heparin gtt. -Continue metoprolol succinate 75 mg daily -Strict I's and O's, daily weight, low-sodium diet, monitor vitals, telemonitoring. -Cardiology following: Planning for left heart angiography. Patient is at risk of RADHA Stage V CKD CKD anemia -HGB stable 9.3 (HGB ~9 in 2022) -On darbepoetin injection weekly and calcitriol 0.5 mcg daily. Sodium citrate- citric acid twice daily -Nephrology following -Monitor urine output, renal function, and electrolyte Type 2 diabetes mellitus -On linagliptin 5 mg daily -Lantus daily, lispro with meals, correctional lispro for blood glucose higher than 140. -Monitor glucose Hypothyroidism -Continue levothyroxine 25 mcg daily COVID infection -COVID-positive on 10/19, on airborne precaution aspirin, 81 mg, Daily atorvastatin, 80 mg, Daily calcitRIOL, 0.5 mcg, Daily calcium carbonate, 500 mg, BID chlorhexidine, 15 mL, BID darbepoetin kelley (ARANESP) injection, 60 mcg, Weekly insulin glargine, 10 Units, Daily insulin lispro, 1-4 Units, NIGHTLY & 2AM insulin lispro, 1-6 Units, TID with meals insulin lispro, 2-9 Units, TID with meals levothyroxine, 25 mcg, Daily 6AM linagliptin, 5 mg, Daily metoPROLOL SUCCINATE, 75 mg, Daily senna-docusate, 2 tablet, Nightly sodium citrate-citric acid, 30 mL, BID PC B&D bisacodyl, 10 mg, Daily PRN glucose, 1 Tube, Q15 Min PRN Or glucose, 2 Tube, Q15 Min PRN Or dextrose, 12.5 g, Q15 Min PRN Or dextrose, 25 g, Q15 Min PRN Or glucagon, 1 mg, Daily PRN heparin (porcine), 30 Units/kg, Q6H PRN lactulose, 30 mL, Q4H PRN naloxone, 0.4 mg, Q5 Min PRN heparin (porcine) IV infusion - low dose protocol, 12 Units/kg/hr (Order- Specific), Last Rate: 15 Units/kg/hr (10/29/24 1114) Quality Metrics DVT PROPHYLAXIS Risk Assessment Scores and Dates: VTE Time Out IMPROVE SCORE: 2 (10/18/2024 10:24 AM) Interpretation - High Risk Chemical Prophylaxis heparin (porcine) IV infusion 25,000 units in 500 mL 0.45% NaCl (premix) Intravenous Continuous heparin (porcine) 1000 unit/mL injection 2,100 Units Intravenous Every 6 hours PRN Mechanical Prophylaxis SCDs are ordered - Bilateral (Knee High) Patient declined SCD use, Please review Expected Date of Discharge 10/31/2024 Subjective Neymar Wilder feels better. No CP or SOB. No dizziness or nausea. Objective Vitals: 10/29/24 0412 10/29/24 0745 10/29/24 1100 10/29/24 1550 BP: (!) 144/65 136/64 (!) 140/67 138/63 Pulse: 61 62 65 60 Resp: 18 18 20 Temp: 96.7 ??F (35.9 ??C) 96.7 ??F (35.9 ??C) 96.6 ??F (35.9 ??C) SpO2: 95% 97% 99% 10/29/24 2047 10/30/24 0017 10/30/24 0408 10/30/24 0840 BP: 134/59 (!) 144/69 (!) 148/72 (!) 146/68 Pulse: 64 65 62 66 Resp: (!) 17 17 18 Temp: 97.6 ??F (36.4 ??C) 97.2 ??F (36.2 ??C) 97.9 ??F (36.6 ??C) 97.9 ??F (36.6 ??C) SpO2: 95% 96% 95% 93% Physical Exam Constitutional: General: He is not in acute distress. Eyes: General: No scleral icterus. Cardiovascular: Heart sounds: No murmur heard. Pulmonary: Effort: No respiratory distress. Breath sounds: No wheezing or rales. Abdominal: General: There is no distension. Tenderness: There is no abdominal tenderness. Musculoskeletal: General: No swelling. Cervical back: Normal range of motion. Skin: General: Skin is dry. Neurological: Mental Status: He is alert and oriented to person, place, and time. Motor: No weakness. Psychiatric: Mood and Affect: Mood normal. Relevant data reviewed Results from last 7 days Lab Units 10/30/24 0709 WHITE BLOOD CELL COUNT Thou/uL 9.3 HEMOGLOBIN g/dL 9.3* HEMATOCRIT % 30.3* PLATELET COUNT Thou/uL 304 Results from last 7 days Lab Units 10/30/24 0843 10/30/24 0709 SODIUM mmol/L -- 142 POTASSIUM mmol/L -- 4.5 CHLORIDE mmol/L -- 101 CO2 mmol/L -- 27 BUN mg/dL -- 40* CREATININE mg/dL -- 4.3* EGFR -- 13* GLUCOSE mg/dL -- 80 GLUCOSE, POC mg/dL 95 -- CALCIUM mg/dL -- 9.2 Current Outpatient Medications Medication Instructions allopurinol (ZYLOPRIM) 100 mg, Oral, Daily amLODIPine (NORVASC) 5 mg, Oral, Daily aspirin enteric coated (ECOTRIN LOW STRENGTH) 81 mg, Oral, Daily calcitRIOL (ROCALTROL) 0.25 mcg, Oral, Weekly, Tuesdays carvedilol (COREG) 6.25 mg, Oral, 2 times daily with meals clopidogrel (PLAVIX) 75 mg, Oral, Daily levothyroxine (SYNTHROID, LEVOTHROID) 25 mcg, Oral, Daily sitaGLIPtin (JANUVIA) 100 mg, Oral, Daily sodium bicarbonate 650 mg, Oral, 2 times daily spironolactone (ALDACTONE) 25 mg, Oral, Daily terazosin (HYTRIN) 5 mg, Oral, Nightly Sign Thomas Medrano MD 10/30/2024 9:43 AM * Garth Perez DO - 10/30/2024 9:25 AM EST Date 10/30/2024 Assessment & Plan 79y/o male PMHx DM, HTN, CKD V (bCR~5 from 05/2023) d/t HTN + DM (neph Dr in [place]), admit as xfer fromOSH with dyspnea (COVID+) and DKA. ?NSTEMI. TTE 10/18/24 - EF 28% - new. Assessment CKD 5 NSTEMI Anemia of CKD Hypocalcemia COVID + Plan Neymar's renal fcn has been stable with unremarkable serum electrolytes RADHA risk have been reviewed previously Recommend follow renal function closely post cath Pericath IV hydration protocol recommended Will d/c bicitra, CO2 rising above goal - done CA improved again - will decrease to 500mg daily - done Hx secondary hyperparathyroidism - continue calcitriol 0.5 mcg daily Subjective HPI Neymar continues with O2 NC support He denies dyspnea symptoms Review of Systems Respiratory: negative Cardiovascular: negative Gastrointestinal: negative Neurological: negative Remainder ROS were negative except as mentioned above in HPI. Objective Medications Medication/MAR Report: Medications Scheduled Medication Ordered Dose/Rate, Route, Frequency Last Action aspirin chewable tablet 81 mg 81 mg, PO, Daily Given, 81 mg at 10/29 1101 atorvastatin (LIPITOR) tablet 80 mg 80 mg, PO, Daily Given, 80 mg at 10/29 1101 calcitriol (ROCALTROL) capsule 0.5 mcg 0.5 mcg, PO, Daily Given, 0.5 mcg at 10/29 1101 calcium carbonate (TUMS) chewable tablet 500 mg 500 mg, PO, BID Given, 500 mg at 10/29 2155 chlorhexidine (PERIDEX) 0.12 % oral solution 15 mL 15 mL, MT, BID Given, 15 mL at 10/29 2157 darbepoetin kelley (ARANESP) injection 60 mcg 60 mcg, SC, Weekly Given, 60 mcg at 10/23 1436 insulin glargine (LANtus/SEMGLEE) 100 units/mL injection 10 Units 10 Units, SC, Daily Ordered insulin lispro (HumaLOG/ADMELOG) 100 units/mL injection 1-4 Units 1-4 Units, SC, NIGHTLY & 2AM Given, 1 Units at 10/28 2137 insulin lispro (HumaLOG/ADMELOG) 100 units/mL injection 1-6 Units 1-6 Units, SC, TID with meals Given, 2 Units at 10/29 1745 insulin lispro (HumaLOG/ADMELOG) 100 units/mL injection 2-9 Units 2-9 Units, SC, TID with meals Given, 8 Units at 10/29 1907 levothyroxine (SYNTHROID, LEVOTHROID) tablet 25 mcg 25 mcg, PO, Daily 6AM Given, 25 mcg at 10/30 0648 linagliptin (TRADJENTA) tablet 5 mg 5 mg, PO, Daily Given, 5 mg at 10/29 111 metoPROLOL SUCCINATE (TOPROL-XL) 24 hr tablet 75 mg 75 mg, PO, Daily Given, 75 mg at 10/29 110 senna-docusate (SENNA-S) 8.6-50 MG tablet 2 tablet 2 tablet, PO, Nightly Given, 2 tablet at 10/27 2025 sodium citrate-citric acid (BICITRA) 500-334 mg/5 mL solution 30 mL 30 mL, PO, BID PC B&D Given, 30 mL at 10/29 174 Continuous Medication Ordered Dose/Rate, Route, Frequency Last Action heparin (porcine) IV infusion 25,000 units in 500 mL 0.45% NaCl (premix) 12 Units/kg/hr, IV, Continuous New Bag, 15 Units/kg/hr at 10/29 1114 PRN Medication Ordered Dose/Rate, Route, Frequency Last Action bisacodyl (DULCOLAX) suppository 10 mg 10 mg, RE, Daily PRN Ordered dextrose 50 % solution 12.5 g (Or Linked Group #1) 12.5 g, IV, Q15 Min PRN Given, 12.5 g at 10/27 105 dextrose 50 % solution 25 g (Or Linked Group #1) 25 g, IV, Q15 Min PRN See Alternative, 10/27 105 glucagon (GLUCAGEN) injection 1 mg (Or Linked Group #1) 1 mg, IM, Daily PRN See Alternative, 10/27 105 glucose (GLUTOSE 15) 40 % oral gel 37.5 g (Or Linked Group #1) 1 Tube, PO, Q15 Min PRN See Alternative, 10/27 105 glucose (GLUTOSE 15) 40 % oral gel 75 g (Or Linked Group #1) 2 Tube, PO, Q15 Min PRN See Alternative, 10/27 105 heparin (porcine) 1000 unit/mL injection 2,100 Units 30 Units/kg, IV, Q6H PRN Ordered lactulose (ENULOSE) 10 gm/15 mL solution 20 g 30 mL, PO, Q4H PRN Ordered naloxone (NARCAN) 0.4 mg/mL injection 0.4 mg 0.4 mg, IV, Q5 Min PRN Ordered Allergy No Known Allergies Physical Exam Vitals: 10/29/24 2047 10/30/24 0017 10/30/24 0408 10/30/24 0500 BP: 134/59 (!) 144/69 (!) 148/72 BP Location: Left arm Left arm Left arm Patient Position: Lying Lying Lying Pulse: 64 65 62 Resp: (!) 22 17 17 Temp: 97.6 ??F (36.4 ??C) 97.2 ??F (36.2 ??C) 97.9 ??F (36.6 ??C) TempSrc: Tympanic Tympanic Tympanic SpO2: 95% 96% 95% Weight: 143 lb 8.3 oz (65.1 kg) Height: Intake/Output Summary (Last 24 hours) at 10/30/2024 0925 Last data filed at 10/30/2024 0500 Gross per 24 hour Intake 271.04 ml Output 2300 ml Net -2028.96 ml General appearance: Comfortable appearing Lungs: CTA bilaterally anteriorly Heart: RRR, S1, S2 normal Abdomen: soft, non-tender, BS normal Edema: None Skin: Skin color, texture normal Relevant data reviewed Notable labs are: Recent Labs 10/28/24 0700 10/28/24 1538 10/29/24 0720 10/30/24 0709 NA 142 143 142 142 K 3.9 4.7 4.0 4.5 CL 105 105 103 101 CO2 25 25 26 27 BUN 50* 48* 44* 40* CREAT 4.4* 4.3* 4.3* 4.3* CALCIUM 8.6* 8.9 8.8 9.2 MG 1.8 1.8 1.7 1.7 PHOS 4.6* 5.2* 4.9* 5.1* Recent Labs 10/28/24 0700 10/29/24 0720 10/30/24 0709 WBC 9.2 8.5 9.3 HGB 8.7* 8.7* 9.3* HCT 29.1* 29.6* 30.3* PLT 326 300 304 I have reviewed the laboratory data within the past 24 hours Sign: Garth Perez DO 10/30/2024 9:25 AM * Tangela Reed PA-C - 10/30/2024 9:04 AM EST Endocrinology Progress Note PA - Endocrinology - Medicine Today's Date: 10/30/2024 Admit Date: 10/18/2024 5:10 AM Consult requested by: Thomas Medrano MD Principal Problem: DKA (diabetic ketoacidosis) (HCC) (POA: Yes) Active Problems: NSTEMI (non-ST elevated myocardial infarction) (HCC) (POA: Unknown) COVID (POA: Yes) Heart failure with reduced ejection fraction (HCC) (POA: Unknown) Pulmonary edema with left heart failure (HCC) (POA: Unknown) Resolved Problems: Assessment & Plan Assessment: Neymar Wilder is a 79 y.o. male with T2DM (8.7%-10/19/2023), CKD5, HTN, who presented to OSH with cough, chills, dyspnea, found to have PNA, transferred to with concerns of NSTEMI, DKA. Endocrinology consulted for diabetes BG remains within goal, patient to continue on current regimen - may consider holding carb scale based on trends, but patient likely to need bolus insulin for discharge. Hospital Plan Decrease to Lantus Insulin 10 units daily. Continue Meal Carb Humalog Insulin Scale: 2-9 units, 3 times a day with meals. See scale below. ICR 1: 7. Continue Meal Correction Humalog Insulin Scale: 1-6 units, 3 times a day with meals. See scale below. ISF 1: 40 > 140. Continue Nightly/0200 Correction Humalog Insulin Scale: 1-4 units. See scale below. ISF 1: 50 > 200. Continue linagliptin 5 mg daily. Glucose checks AC/HS & 0200. Notify endocrine team in the daytime or primary team overnight if BG <70 or >350 mg/dL. Hypoglycemia protocol in place. Please endocrinology team updated on discharge planning including date, disposition. Discharge Planning: Pending needs - patient on basal only at home, would prefer to coordinate similar regimen for discharge. Noted to be on Januvia - would prefer to switch to Tradjenta given renal function. Previous 24 Hours TDD: 27 units (Glargine 12, lispro 15). BG Range: 74-187. Diet: Diet NPO; Meds, Sips of clears Steroids: None. Drips: None. History Diabetes History Diabetes Management: Diaz Akers MD (appears to be PCP). Pre-Admission Regimen: Lantus SoloStar 10-14 units - patient reports he takes what is written on the pen, unable to clarify exact dose, recorded as 15 units daily in chart Januvia 100 mg daily History of Present Illness Patient developed malaise, dyspnea, cough over 2-3 days, presented to OSH, found to be COVID positive Reports that he was not eating very much during this time, as he did not feel good At OSH, BHB elevated to 5.88 Hospital Course 10/18: On presentation, serum glucose 569, bicarb 8, BHB 3.63, AG 28, serum osmolality 359, started on insulin drip 10/19: Endo consulted Subjective Chief Complaint Diabetes Management Subjective Patient undergoing care when seen. History Review of Systems Unable to perform ROS: Other Objective Inpatient Orders aspirin, 81 mg, Oral, Daily atorvastatin, 80 mg, Oral, Daily calcitRIOL, 0.5 mcg, Oral, Daily calcium carbonate, 500 mg, Oral, BID chlorhexidine, 15 mL, Mouth/Throat, BID darbepoetin kelley (ARANESP) injection, 60 mcg, Subcutaneous, Weekly insulin glargine, 10 Units, Subcutaneous, Daily insulin lispro, 1-4 Units, Subcutaneous, NIGHTLY & 2AM insulin lispro, 1-6 Units, Subcutaneous, TID with meals insulin lispro, 2-9 Units, Subcutaneous, TID with meals levothyroxine, 25 mcg, Oral, Daily 6AM linagliptin, 5 mg, Oral, Daily metoPROLOL SUCCINATE, 75 mg, Oral, Daily senna-docusate, 2 tablet, Oral, Nightly sodium citrate-citric acid, 30 mL, Oral, BID PC B&D No Known Allergies Scales Carb Scale Pre-meal Correction Nighttime Correction (Nightly and 2 AM) MEAL BOLUS ICR: 1: 7g Notify Endo AP if BG <100 prior to giving insulin given age Document Carb Count in MAR Comment Section Hold if NPO or if eats < 14 grams of carbs Give 2 units if eats/drinks 14-20 grams of carbs Give 3 units if eats/drinks 21-27 grams of carbs Give 4 units if eats/drinks 28-34 grams of carbs Give 5 units if eats/drinks 35-41 grams of carbs Give 6 units if eats/drinks 42-48 grams of carbs Give 7 units if eats/drinks 49-55 grams of carbs Give 8 units if eats/drinks 56-62 grams of carbs Give 9 units if eats/drinks 63-69 grams of carbs DO NOT HOLD IF NPO Notify provider if Blood Glucose LESS than 70 For BG 141-180 administer 1 unit For BG 181-220 administer 2 units For BG 221-260 administer 3 units For BG 261-300 administer 4 units For BG 301-340 administer 5 units For BG MORE than 340, administer 6 units AND notify provider DO NOT HOLD IF NPO Notify provider if Blood Glucose LESS than 70 For BG 201-250 administer 1 unit For BG 251-300 administer 2 units For BG 301-350 administer 3 units For BG MORE than 350, administer 4 units AND notify provider Physical Vitals: 10/29/24 2047 10/30/24 0017 10/30/24 0408 10/30/24 0500 BP: 134/59 (!) 144/69 (!) 148/72 BP Location: Left arm Left arm Left arm Patient Position: Lying Lying Lying Pulse: 64 65 62 Resp: (!) 22 17 17 Temp: 97.6 ??F (36.4 ??C) 97.2 ??F (36.2 ??C) 97.9 ??F (36.6 ??C) TempSrc: Tympanic Tympanic Tympanic SpO2: 95% 96% 95% Weight: 65.1 kg (143 lb 8.3 oz) Height: Intake/Output Summary (Last 24 hours) at 10/30/2024 0904 Last data filed at 10/30/2024 0500 Gross per 24 hour Intake 271.04 ml Output 2300 ml Net -2028.96 ml Physical Exam Vitals reviewed. Constitutional: General: He is not in acute distress. HENT: Head: Normocephalic and atraumatic. Mouth/Throat: Mouth: Mucous membranes are moist. Eyes: General: No scleral icterus. Conjunctiva/sclera: Conjunctivae normal. Pulmonary: Effort: Pulmonary effort is normal. Neurological: Mental Status: He is alert and oriented to person, place, and time. Labs Lab Results Component Value Date HGBA1C 8.7 (H) 10/19/2024 Recent Labs 10/29/24 2116 10/30/24 0216 10/30/24 0647 10/30/24 0709 10/30/24 0843 GLUC 138* 74 90 80 95 Lab Results Component Value Date ANIONGAP 14 10/30/2024 ANIONGAP 13 10/29/2024 ANIONGAP 13 10/28/2024 During the day of the visit, 40 minutes spent was spent on the following: Examining the patient Chart review in preparation for the visit Documenting in the patient record Reviewing Labs & Radiology Signed Tangela Reed PA-C Endocrinology - Medicine 10/30/2024 4:43 PM * Macy Macias PA-C - 10/30/2024 7:14 AM EST Images from the original note were not included. 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 Initially in ICU on insulin drip. Troponin elevated 1830->4171, EKG showed sinus rhythm with poor R wave progression and nonspecific T wave abnormalities. Patient ruled in for NSTEMI and was started on a heparin drip and found to have a newly reduced EF of 28%. Patient tested positive for COVID. He was also noted to have worsening ALISA with increased creatinine 5.2. For ischemic workup this admission. Assessment Acute hypoxic respiratory failure secondary to COVID infection NSTEMI Acute HFrEF (LVEF 28%) NSVT Moderate MR Bilateral pleural effusions s/p bilateral thoracentesis 10/18 Hypertension ALIAS on CKD stage V; baseline creatine 4.8-5.2 DKA resolved Severe metabolic acidosis with elevated anion gap Hyperglycemia Plan NSTEMI NSVT HTN - Plan for LHC on 10/30 or 10/31 -Troponin elevated 1830->4171, EKG showed sinus rhythm with poor R wave progression and nonspecific T wave abnormalities - NSVT on 10/29, no antiarrhytmics at this time. Pacer pads on. No further episodes on telemetry. - Aggressively replace electrolytes to maintain K>4, Mg>2 - Given findings of reduced LVEF 28% on echo cannot rule out ischemic event, recommend ischemic workup this admission. - Continue heparin gtt. - Continue ASA 81 mg daily, atorvastatin 80 mg daily, metoprolol succinate 75 mg daily - Continue telemetry monitoring Acute HFrEF (LVEF 28%) NYHA class III, AHA stage C Moderate MR - TTE 10/18: LV severely dilated, eccentric hypertrophy. LVSF is severely decreased, EF 28%. Anteriorand anterior septal garcia are akinetic. The apex is dyskinetic. Evidence of diastolic dysfunction. Left atrial cavity severely dilated. RVSF is normal. Moderate functional mitral regurgitation, mild t ricuspid regurgitation. Large left pleural effusion - proBNP: >70,000 (10/18) - I&Os: -2,029 mL over past 24 hrs; -9,654 mL cumulative - GDMT for reduced EF -BB: metoprolol succinate 75 mg daily, recommend increasing to 100 mg daily given NSVT -YULY/ARB/ARNI: Not initiated due to CKD stage V -MRA: On hold for ALISA -SGLT2i: Consider post cath, will discuss with endocrine - Diuretics: IV Lasix 40 mg PRN, can skip today - Strict I&Os, daily weights Primary Business Process Modeler: [facility] Cardiology will continue to follow. Case discussed with [facility] attending Dr. Valentino Subjective Pt reports he is feeling ok today Patient denies chest pain, shortness of breath, dizziness, lightheadedness, nausea, vomiting, palpitations Objective Telemetry Reviewed: NSR 70's w/ PACs Last Vitals Pulse:62,Resp:17,BP:(!) 148/72,SpO2:95 %,Weight:65.1 kg (143 lb 8.3 oz) Temp Last 24 hrs: Temp Min: 96.6 ??F (35.9 ??C) Max: 97.9 ??F (36.6 ??C) Intake/Output Summary (Last 24 hours) at 10/30/2024 0714 Last data filed at 10/30/2024 0500 Gross per 24 hour Intake 23 ml Output 2300 ml Net -2277 ml Physical Exam GENERAL: No acute distress. HEENT: Anicteric. No pallor. Moist oral membranes. NECK: Supple. No carotid bruits. JVP normal. CHEST: Nontender. Clear to auscultation bilaterally. CARDIAC: Regular rate and rhythm. Nondisplaced PMI. ABDOMEN: Soft. Nontender. Normal bowel sounds. EXTREMITIES: Warm. Well-perfused. No edema. VASCULAR: + distal pulses SKIN: Warm and dry. No rashes. NEUROLOGIC: Alert. Grossly nonfocal. Medications Medications Scheduled Medication Ordered Dose/Rate, Route, Frequency Last Action aspirin chewable tablet 81 mg 81 mg, PO, Daily Given, 81 mg at 10/29 1101 atorvastatin (LIPITOR) tablet 80 mg 80 mg, PO, Daily Given, 80 mg at 10/29 1101 calcitriol (ROCALTROL) capsule 0.5 mcg 0.5 mcg, PO, Daily Given, 0.5 mcg at 10/29 1101 calcium carbonate (TUMS) chewable tablet 500 mg 500 mg, PO, BID Given, 500 mg at 10/29 2155 chlorhexidine (PERIDEX) 0.12 % oral solution 15 mL 15 mL, MT, BID Given, 15 mL at 10/29 2157 darbepoetin kelley (ARANESP) injection 60 mcg 60 mcg, SC, Weekly Given, 60 mcg at 10/23 143 insulin glargine (LANtus/SEMGLEE) 100 units/mL injection 10 Units 10 Units, SC, Daily Ordered insulin lispro (HumaLOG/ADMELOG) 100 units/mL injection 1-4 Units 1-4 Units, SC, NIGHTLY & 2AM Given, 1 Units at 10/28 2137 insulin lispro (HumaLOG/ADMELOG) 100 units/mL injection 1-6 Units 1-6 Units, SC, TID with meals Given, 2 Units at 10/29 1745 insulin lispro (HumaLOG/ADMELOG) 100 units/mL injection 2-9 Units 2-9 Units, SC, TID with meals Given, 8 Units at 10/29 1907 levothyroxine (SYNTHROID, LEVOTHROID) tablet 25 mcg 25 mcg, PO, Daily 6AM Given, 25 mcg at 10/30 0648 linagliptin (TRADJENTA) tablet 5 mg 5 mg, PO, Daily Given, 5 mg at 10/29 1113 metoPROLOL SUCCINATE (TOPROL-XL) 24 hr tablet 75 mg 75 mg, PO, Daily Given, 75 mg at 10/29 1101 senna-docusate (SENNA-S) 8.6-50 MG tablet 2 tablet 2 tablet, PO, Nightly Given, 2 tablet at 10/27 2025 sodium citrate-citric acid (BICITRA) 500-334 mg/5 mL solution 30 mL 30 mL, PO, BID PC B&D Given, 30 mL at 10/29 1745 Continuous Medication Ordered Dose/Rate, Route, Frequency Last Action heparin (porcine) IV infusion 25,000 units in 500 mL 0.45% NaCl (premix) 12 Units/kg/hr, IV, Continuous New Bag, 15 Units/kg/hr at 10/29 1114 PRN Medication Ordered Dose/Rate, Route, Frequency Last Action bisacodyl (DULCOLAX) suppository 10 mg 10 mg, RE, Daily PRN Ordered dextrose 50 % solution 12.5 g (Or Linked Group #1) 12.5 g, IV, Q15 Min PRN Given, 12.5 g at 10/276 dextrose 50 % solution 25 g (Or Linked Group #1) 25 g, IV, Q15 Min PRN See Alternative, 10/27 105 glucagon (GLUCAGEN) injection 1 mg (Or Linked Group #1) 1 mg, IM, Daily PRN See Alternative, 10/27 105 glucose (GLUTOSE 15) 40 % oral gel 37.5 g (Or Linked Group #1) 1 Tube, PO, Q15 Min PRN See Alternative, 10/27 105 glucose (GLUTOSE 15) 40 % oral gel 75 g (Or Linked Group #1) 2 Tube, PO, Q15 Min PRN See Alternative, 10/27 105 heparin (porcine) 1000 unit/mL injection 2,100 Units 30 Units/kg, IV, Q6H PRN Ordered lactulose (ENULOSE) 10 gm/15 mL solution 20 g 30 mL, PO, Q4H PRN Ordered naloxone (NARCAN) 0.4 mg/mL injection 0.4 mg 0.4 mg, IV, Q5 Min PRN Ordered Relevant data reviewed Results from last 7 days Lab Units 10/30/24 0647 10/30/24 0216 10/29/24 2116 10/29/24 0751 10/29/24 0720 10/28/24 1659 10/28/24 1538 10/28/24 0828 10/28/24 0700 10/23/24 1259 10/23/24 1031 SODIUM mmol/L -- -- -- -- 142 -- 143 -- 142 < > -- POTASSIUM mmol/L -- -- -- -- 4.0 -- 4.7 -- 3.9 < > -- CHLORIDE mmol/L -- -- -- -- 103 -- 105 -- 105 < > -- CO2 mmol/L -- -- -- -- 26 -- 25 -- 25 < > -- BUN mg/dL -- -- -- -- 44* -- 48* -- 50* < > -- CREATININE mg/dL -- -- -- -- 4.3* -- 4.3* -- 4.4* < > -- CALCIUM mg/dL -- -- -- -- 8.8 -- 8.9 -- 8.6* < > 7.4* GLUCOSE mg/dL -- -- -- -- 91 -- 208* -- 84 < > -- GLUCOSE, POC mg/dL 90 74 138* < > -- < > -- < > -- < > -- EGFR -- -- -- -- 13* -- 13* -- 13* < > -- ALBUMIN g/dL -- -- -- -- -- -- -- -- -- -- 3.5 < > = values in this interval not displayed. Lab Results Component Value Date MG 1.7 10/29/2024 Results from last 7 days Lab Units 10/29/24 0720 10/28/24 0700 10/27/24 0729 WHITE BLOOD CELL COUNT Thou/uL 8.5 9.2 9.2 HEMOGLOBIN g/dL 8.7* 8.7* 9.0* HEMATOCRIT % 29.6* 29.1* 29.8* PLATELET COUNT Thou/uL 300 326 321 Lab Results Component Value Date HSTNT 2,071 () 10/26/2024 HSTNT 2,468 (HH) 10/25/2024 HSTNT 2,413 () 10/25/2024 Lab Results Component Value Date PROBNP 47,866 (H) 10/29/2024 Lab Results Component Value Date HGBA1C 8.7 (H) 10/19/2024 Imaging Studies All appropriate imaging studies within the past 24 hours reviewed (actual images) Sign Macy Macias PA-C 10/30/2024 7:14 AM * Garth Perez DO - 10/29/2024 8:42 AM EST Date 10/29/2024 Assessment & Plan 79y/o male PMHx DM, HTN, CKD V (bCR~5 from 05/2023) d/t HTN + DM (neph Dr in [place]), admit as xfer fromOSH with dyspnea (COVID+) and DKA. ?NSTEMI. TTE 10/18/24 - EF 28% - new. Assessment CKD 5 NSTEMI Anemia of CKD Hypocalcemia COVID + Plan Neymar's Cr has ranged ~ 4-4.4mg/dL over past week. Essentially no change in GFR RADHA risk remains unchanged Continue Aranesp 60 mcg weekly for anemia of CKD CO2 stable - can decrease Bicitra to once daily dosing - done CA improved -continue calcium carbonate 500mg BID Hx secondary hyperparathyroidism - continue calcitriol 0.5 mcg daily [facility] timing - TBD Subjective HPI Continues with O2 oxy mask overnight-weaned to NC this AM Heparin drip ongoing No dyspnea symptoms He remains patient despite multiple days of delay for [facility] Review of Systems Respiratory: negative Cardiovascular: negative Gastrointestinal: negative Neurological: negative Remainder ROS were negative except as mentioned above in HPI. Objective Medications Medication/MAR Report: Medications Scheduled Medication Ordered Dose/Rate, Route, Frequency Last Action aspirin chewable tablet 81 mg 81 mg, PO, Daily Given, 81 mg at 10/28 835 atorvastatin (LIPITOR) tablet 80 mg 80 mg, PO, Daily Given, 80 mg at 10/28 835 calcitriol (ROCALTROL) capsule 0.5 mcg 0.5 mcg, PO, Daily Given, 0.5 mcg at 10/28 834 calcium carbonate (TUMS) chewable tablet 500 mg 500 mg, PO, BID Given, 500 mg at 10/28 2118 chlorhexidine (PERIDEX) 0.12 % oral solution 15 mL 15 mL, MT, BID Given, 15 mL at 10/28 2118 darbepoetin kelley (ARANESP) injection 60 mcg 60 mcg, SC, Weekly Given, 60 mcg at 10/23 1436 insulin glargine (LANtus/SEMGLEE) 100 units/mL injection 12 Units 12 Units, SC, Daily Ordered insulin lispro (HumaLOG/ADMELOG) 100 units/mL injection 1-4 Units 1-4 Units, SC, NIGHTLY & 2AM Given, 1 Units at 10/28 2137 insulin lispro (HumaLOG/ADMELOG) 100 units/mL injection 1-6 Units 1-6 Units, SC, TID with meals Given, 1 Units at 10/28 1710 insulin lispro (HumaLOG/ADMELOG) 100 units/mL injection 2-9 Units 2-9 Units, SC, TID with meals Ordered levothyroxine (SYNTHROID, LEVOTHROID) tablet 25 mcg 25 mcg, PO, Daily 6AM Given, 25 mcg at 10/29 06 linagliptin (TRADJENTA) tablet 5 mg 5 mg, PO, Daily Given, 5 mg at 10/28 0835 metoPROLOL SUCCINATE (TOPROL-XL) 24 hr tablet 75 mg 75 mg, PO, Daily Given, 75 mg at 10/28 0836 senna-docusate (SENNA-S) 8.6-50 MG tablet 2 tablet 2 tablet, PO, Nightly Given, 2 tablet at 10/27 2025 sodium citrate-citric acid (BICITRA) 500-334 mg/5 mL solution 30 mL 30 mL, PO, BID PC B&D Given, 30 mL at 10/28 1710 Continuous Medication Ordered Dose/Rate, Route, Frequency Last Action heparin (porcine) IV infusion 25,000 units in 500 mL 0.45% NaCl (premix) 12 Units/kg/hr, IV, Continuous New Bag, 15 Units/kg/hr at 10/28 0933 PRN Medication Ordered Dose/Rate, Route, Frequency Last Action bisacodyl (DULCOLAX) suppository 10 mg 10 mg, RE, Daily PRN Ordered dextrose 50 % solution 12.5 g (Or Linked Group #1) 12.5 g, IV, Q15 Min PRN Given, 12.5 g at 10/27 105 dextrose 50 % solution 25 g (Or Linked Group #1) 25 g, IV, Q15 Min PRN See Alternative, 10/27 105 glucagon (GLUCAGEN) injection 1 mg (Or Linked Group #1) 1 mg, IM, Daily PRN See Alternative, 10/27 105 glucose (GLUTOSE 15) 40 % oral gel 37.5 g (Or Linked Group #1) 1 Tube, PO, Q15 Min PRN See Alternative, 10/27 105 glucose (GLUTOSE 15) 40 % oral gel 75 g (Or Linked Group #1) 2 Tube, PO, Q15 Min PRN See Alternative, 10/27 105 heparin (porcine) 1000 unit/mL injection 2,100 Units 30 Units/kg, IV, Q6H PRN Ordered lactulose (ENULOSE) 10 gm/15 mL solution 20 g 30 mL, PO, Q4H PRN Ordered naloxone (NARCAN) 0.4 mg/mL injection 0.4 mg 0.4 mg, IV, Q5 Min PRN Ordered Allergy No Known Allergies Physical Exam Vitals: 10/28/24 2358 10/29/24 0412 10/29/24 0633 10/29/24 0745 BP: 132/64 (!) 144/65 136/64 BP Location: Left arm Right arm Right arm Patient Position: Lying Lying Lying Pulse: 63 61 62 Resp: Temp: 97.2 ??F (36.2 ??C) 96.7 ??F (35.9 ??C) 96.7 ??F (35.9 ??C) TempSrc: Tympanic Tympanic Tympanic SpO2: 94% 95% 97% Weight: 143 lb 11.8 oz (65.2 kg) Height: Intake/Output Summary (Last 24 hours) at 10/29/2024 0844 Last data filed at 10/29/2024 0633 Gross per 24 hour Intake 280 ml Output 700 ml Net -420 ml General appearance: Comfortable appearing Lungs: CTA bilaterally anteriorly Heart: RRR, S1, S2 normal Abdomen: soft, non-tender, BS normal Edema: None Skin: Skin color, texture normal Relevant data reviewed Notable labs are: Recent Labs 10/27/24 0729 10/27/24 1526 10/28/24 0700 10/28/24 1538 10/29/24 0720 NA 146* 143 142 143 142 K 3.7 5.2 3.9 4.7 4.0 CL 107 105 105 105 103 CO2 24 25 25 25 26 BUN 59* 53* 50* 48* 44* CREAT 4.3* 4.2* 4.4* 4.3* 4.3* CALCIUM 8.4* 8.6* 8.6* 8.9 8.8 MG 1.8 -- 1.8 1.8 1.7 PHOS 4.6* -- 4.6* 5.2* 4.9* Recent Labs 10/27/24 0729 10/28/24 0700 10/29/24 0720 WBC 9.2 9.2 8.5 HGB 9.0* 8.7* 8.7* HCT 29.8* 29.1* 29.6* PLT 321 326 300 I have reviewed the laboratory data within the past 24 hours Sign: Garth Perez DO 10/29/2024 8:44 AM * Lucinda Whyte PA-C - 10/29/2024 8:32 AM EST Endocrinology Progress Note Endocrinology - Medicine Today's Date: 10/29/2024 Admit Date: 10/18/2024 5:10 AM Consult requested by: Thomas Medrano MD Principal Problem: DKA (diabetic ketoacidosis) (HCC) (POA: Yes) Active Problems: NSTEMI (non-ST elevated myocardial infarction) (HCC) (POA: Unknown) COVID (POA: Yes) Heart failure with reduced ejection fraction (HCC) (POA: Unknown) Pulmonary edema with left heart failure (HCC) (POA: Unknown) Resolved Problems: Assessment & Plan Assessment: Neymar Wilder is a 79 y.o. male with T2DM (A1c 8.7% on 10/29/24), CKD 5, hypertension, who presented from OSH with pneumonia, concern for NSTMI and DKA requiring insulin drip (transition 10/19). Hospital course complicated by stress hyperglycemia. Endocrinology consulted for glycemic management. BG over goal during the day, corrected overnight. Fasting glucose tight, basal insulin already reduced for today. Additionally, patient was having hyperglycemic excursions following meal, meal bolus already increased. Will continue current regimen with these adjustments and monitor for trends. Of note, breakfast insulin given late therefore requested correction insulin be held with lunch to avoidinsulin stacking. Patient NPO at midnight therefore will decrease basal dose for tomorrow morning. Hospital Plan Continue Tradjenta 5 mg daily Hold if NPO, give when diet resumed Continue Lantus Insulin 12 units daily. Decrease to 10 units for tomorrow morning given NPO status Continue Meal Carb Humalog Insulin Scale: 2-9 units, 3 times a day with meals. ICR 1:7g Continue Meal Correction Humalog Insulin Scale: 1-6 units, 3 times a day with meals. ISF 1:40 > 140 Continue Nightly/0200 Correction Humalog Insulin Scale: 1-4 units. ISF 1:50 > 200 Glucose checks AC/HS & 0200. Notify endocrine team in the daytime or primary team overnight if BG <70 or >350 mg/dL. Hypoglycemia protocol in place. Please endocrinology team updated on discharge planning including date, disposition. Discharge Planning: Basal + tradjenta. Anticipate patient will also need meal bolus, will need education with CDCES Previous 24 Hours TDD: 32 (basal 14, bolus 18) BG Range: 91-232. Fasting glucose Diet: Diet Diabetic/ Calorie Controlled; Carb Counting 60g/meal [id number] kcal History Diabetes History Pre-Admission Regimen: Lantus Solostar 10-14 units Januvia 100 mg daily Diabetes Management: Diaz Akers MD (PCP) Subjective Chief Complaint Diabetes Management Subjective Patient resting in bed, son at bedside. Questions related to nutrition, communicated with primary team patient would like to see nutrition. Discussed adjustments to insulin regimen. History Review of Systems Gastrointestinal: Negative for abdominal pain, nausea and vomiting. No Known Allergies Objective Carb Scale Pre-meal Correction Nighttime Correction Hold if NPO or if eats < 14 grams of carbs Give 2 units if eats/drinks 14-20 grams of carbs Give 3 units if eats/drinks 21-27 grams of carbs Give 4 units if eats/drinks 28-34 grams of carbs Give 5 units if eats/drinks 35-41 grams of carbs Give 6 units if eats/drinks 42-48 grams of carbs Give 7 units if eats/drinks 49-55 grams of carbs Give 8 units if eats/drinks 56-62 grams of carbs Give 9 units if eats/drinks 63-69 grams of carbs DO NOT HOLD IF NPO Notify provider if Blood Glucose LESS than 70 For BG 141-180 administer 1 unit For BG 181-220 administer 2 units For BG 221-260 administer 3 units For BG 261-300 administer 4 units For BG 301-340 administer 5 units For BG MORE than 340, administer 6 units AND notify provider DO NOT HOLD IF NPO Notify primary team overnight if Blood Glucose <70 or >350 mg/dL. For BG 201-250 administer 1 unit For BG 251-300 administer 2 units For BG 301-350 administer 3 units For BG MORE than 350, administer 4 units Inpatient Orders aspirin, 81 mg, Oral, Daily atorvastatin, 80 mg, Oral, Daily calcitRIOL, 0.5 mcg, Oral, Daily calcium carbonate, 500 mg, Oral, BID chlorhexidine, 15 mL, Mouth/Throat, BID darbepoetin kelley (ARANESP) injection, 60 mcg, Subcutaneous, Weekly insulin glargine, 12 Units, Subcutaneous, Daily insulin lispro, 1-4 Units, Subcutaneous, NIGHTLY & 2AM insulin lispro, 1-6 Units, Subcutaneous, TID with meals insulin lispro, 2-9 Units, Subcutaneous, TID with meals levothyroxine, 25 mcg, Oral, Daily 6AM linagliptin, 5 mg, Oral, Daily metoPROLOL SUCCINATE, 75 mg, Oral, Daily senna-docusate, 2 tablet, Oral, Nightly sodium citrate-citric acid, 30 mL, Oral, BID PC B&D Physical Vitals: 10/28/24 2358 10/29/24 0412 10/29/24 0633 10/29/24 0745 BP: 132/64 (!) 144/65 136/64 BP Location: Left arm Right arm Right arm Patient Position: Lying Lying Lying Pulse: 63 61 62 Resp: 16 18 18 Temp: 97.2 ??F (36.2 ??C) 96.7 ??F (35.9 ??C) 96.7 ??F (35.9 ??C) TempSrc: Tympanic Tympanic Tympanic SpO2: 94% 95% 97% Weight: 65.2 kg (143 lb 11.8 oz) Height: Intake/Output Summary (Last 24 hours) at 10/29/2024 0833 Last data filed at 10/29/2024 0633 Gross per 24 hour Intake 280 ml Output 700 ml Net -420 ml Physical Exam Vitals reviewed. Constitutional: General: He is not in acute distress. Appearance: He is not ill-appearing. HENT: Head: Normocephalic and atraumatic. Eyes: Extraocular Movements: Extraocular movements intact. Cardiovascular: Rate and Rhythm: Normal rate. Pulmonary: Effort: Pulmonary effort is normal. No respiratory distress. Neurological: Mental Status: He is alert and oriented to person, place, and time. Labs Lab Results Component Value Date HGBA1C 8.7 (H) 10/19/2024 Recent Labs 10/28/24 1538 10/28/24 1659 10/28/24 2130 10/29/24 0207 10/29/24 0751 GLUC 208* 170* 219* 99 107* Lab Results Component Value Date ANIONGAP 13 10/28/2024 ANIONGAP 12 10/28/2024 ANIONGAP 13 10/27/2024 During the day of the visit, 40 minutes spent was spent on the following: Examining the patient Chart review in preparation for the visit Documenting in the patient record Speaking with a accounting policy consultant Reviewing Labs & Radiology Signed Lucinda Whyte Endocrinology - Medicine 10/29/2024 8:33 AM * Macy Macias PA-C - 10/29/2024 7:45 AM EST Images from the original note were not included. 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 Initially in ICU on insulin drip. Troponin elevated 1830->4171, EKG showed sinus rhythm with poor R wave progression and nonspecific T wave abnormalities. Patient ruled in for NSTEMI and was started on a heparin drip and found to have a newly reduced EF of 28%. Patient tested positive for COVID. He was also noted to have worsening ALISA with increased creatinine 5.2. For ischemic workup this admission. Assessment Acute hypoxic respiratory failure secondary to COVID infection NSTEMI Acute HFrEF (LVEF 28%) NSVT Moderate MR Bilateral pleural effusions s/p bilateral thoracentesis 10/18 Hypertension ALISA on CKD stage V; baseline creatine 4.8-5.2 DKA resolved Severe metabolic acidosis with elevated anion gap Hyperglycemia Plan NSTEMI NSVT HTN - Plan for [facility] on 10/30 -Troponin elevated 1830->4171, EKG showed sinus rhythm with poor R wave progression and nonspecific T wave abnormalities - NSVT on 10/29, no antiarrhytmics at this time. Pacer pads on. No further episodes on telemetry. - Aggressively replace electrolytes to maintain K>4, Mg>2 - Given findings of reduced LVEF 28% on echo cannot rule out ischemic event, recommend ischemic workup this admission. - Continue heparin gtt. - Continue ASA 81 mg daily, atorvastatin 80 mg daily, metoprolol succinate 75 mg daily - Continue telemetry monitoring Acute HFrEF (LVEF 28%) NYHA class III, AHA stage C Moderate MR - TTE 10/18: LV severely dilated, eccentric hypertrophy. LVSF is severely decreased, EF 28%. Anteriorand anterior septal garcia are akinetic. The apex is dyskinetic. Evidence of diastolic dysfunction. Left atrial cavity severely dilated. RVSF is normal. Moderate functional mitral regurgitation, mild t ricuspid regurgitation. Large left pleural effusion - proBNP: >70,000 (10/18) - I&Os: -400 mL over past 24 hrs; -7,625 mL cumulative - GDMT for reduced EF -BB: metoprolol succinate 75 mg daily, recommend increasing to 100 mg daily given NSVT -YULY/ARB/ARNI: Not initiated due to CKD stage V -MRA: On hold for ALISA -SGLT2i: Consider post cath, will discuss with endocrine - Diuretics: IV Lasix 40 mg PRN, can skip today - Strict I&Os, daily weights Primary Business Process Modeler: [facility] Cardiology will continue to follow. Case discussed with [facility] attending Dr. Contreras Subjective Pt reports that he feels well Patient denies chest pain, shortness of breath, dizziness, lightheadedness, nausea, vomiting, palpitations Objective Telemetry Reviewed: NSR 78 Last Vitals Pulse:61,Resp:18,BP:(!) 144/65,SpO2:95 %,Weight:65.2 kg (143 lb 11.8 oz) Temp Last 24 hrs: Temp Min: 96.7 ??F (35.9 ??C) Max: 98.2 ??F (36.8 ??C) Intake/Output Summary (Last 24 hours) at 10/29/2024 0730 Last data filed at 10/29/2024 0633 Gross per 24 hour Intake 280 ml Output 700 ml Net -420 ml Physical Exam GENERAL: No acute distress. HEENT: Anicteric. No pallor. Moist oral membranes. NECK: Supple. No carotid bruits. JVP normal. CHEST: Nontender. Clear to auscultation bilaterally. CARDIAC: Regular rate and rhythm. Nondisplaced PMI. ABDOMEN: Soft. Nontender. Normal bowel sounds. EXTREMITIES: Warm. Well-perfused. No edema. VASCULAR: + distal pulses SKIN: Warm and dry. No rashes. NEUROLOGIC: Alert. Grossly nonfocal. Medications Medications Scheduled Medication Ordered Dose/Rate, Route, Frequency Last Action aspirin chewable tablet 81 mg 81 mg, PO, Daily Given, 81 mg at 10/28 835 atorvastatin (LIPITOR) tablet 80 mg 80 mg, PO, Daily Given, 80 mg at 10/28 835 calcitriol (ROCALTROL) capsule 0.5 mcg 0.5 mcg, PO, Daily Given, 0.5 mcg at 10/28 834 calcium carbonate (TUMS) chewable tablet 500 mg 500 mg, PO, BID Given, 500 mg at 10/28 2118 chlorhexidine (PERIDEX) 0.12 % oral solution 15 mL 15 mL, MT, BID Given, 15 mL at 10/28 2118 darbepoetin kelley (ARANESP) injection 60 mcg 60 mcg, SC, Weekly Given, 60 mcg at 10/23 1436 insulin glargine (LANtus/SEMGLEE) 100 units/mL injection 12 Units 12 Units, SC, Daily Ordered insulin lispro (HumaLOG/ADMELOG) 100 units/mL injection 1-4 Units 1-4 Units, SC, NIGHTLY & 2AM Given, 1 Units at 10/28 2137 insulin lispro (HumaLOG/ADMELOG) 100 units/mL injection 1-6 Units 1-6 Units, SC, TID with meals Given, 1 Units at 10/28 1710 insulin lispro (HumaLOG/ADMELOG) 100 units/mL injection 2-9 Units 2-9 Units, SC, TID with meals Ordered levothyroxine (SYNTHROID, LEVOTHROID) tablet 25 mcg 25 mcg, PO, Daily 6AM Given, 25 mcg at 10/29 619 linagliptin (TRADJENTA) tablet 5 mg 5 mg, PO, Daily Given, 5 mg at 10/28 834 metoPROLOL SUCCINATE (TOPROL-XL) 24 hr tablet 75 mg 75 mg, PO, Daily Given, 75 mg at 10/28 835 senna-docusate (SENNA-S) 8.6-50 MG tablet 2 tablet 2 tablet, PO, Nightly Given, 2 tablet at 10/27 2025 sodium citrate-citric acid (BICITRA) 500-334 mg/5 mL solution 30 mL 30 mL, PO, BID PC B&D Given, 30 mL at 10/28 1709 Continuous Medication Ordered Dose/Rate, Route, Frequency Last Action heparin (porcine) IV infusion 25,000 units in 500 mL 0.45% NaCl (premix) 12 Units/kg/hr, IV, Continuous New Bag, 15 Units/kg/hr at 10/28 0933 PRN Medication Ordered Dose/Rate, Route, Frequency Last Action bisacodyl (DULCOLAX) suppository 10 mg 10 mg, RE, Daily PRN Ordered dextrose 50 % solution 12.5 g (Or Linked Group #1) 12.5 g, IV, Q15 Min PRN Given, 12.5 g at 10/27 105 dextrose 50 % solution 25 g (Or Linked Group #1) 25 g, IV, Q15 Min PRN See Alternative, 10/27 105 glucagon (GLUCAGEN) injection 1 mg (Or Linked Group #1) 1 mg, IM, Daily PRN See Alternative, 10/27 105 glucose (GLUTOSE 15) 40 % oral gel 37.5 g (Or Linked Group #1) 1 Tube, PO, Q15 Min PRN See Alternative, 10/27 105 glucose (GLUTOSE 15) 40 % oral gel 75 g (Or Linked Group #1) 2 Tube, PO, Q15 Min PRN See Alternative, 10/27 105 heparin (porcine) 1000 unit/mL injection 2,100 Units 30 Units/kg, IV, Q6H PRN Ordered lactulose (ENULOSE) 10 gm/15 mL solution 20 g 30 mL, PO, Q4H PRN Ordered naloxone (NARCAN) 0.4 mg/mL injection 0.4 mg 0.4 mg, IV, Q5 Min PRN Ordered Relevant data reviewed Results from last 7 days Lab Units 10/29/24 0207 10/28/24 2130 10/28/24 1659 10/28/24 1538 10/28/24 0828 10/28/24 0700 10/27/24 1620 10/27/24 1526 10/23/24 1259 10/23/24 1031 SODIUM mmol/L -- -- -- 143 -- 142 -- 143 < > -- POTASSIUM mmol/L -- -- -- 4.7 -- 3.9 -- 5.2 < > -- CHLORIDE mmol/L -- -- -- 105 -- 105 -- 105 < > -- CO2 mmol/L -- -- -- 25 -- 25 -- 25 < > -- BUN mg/dL -- -- -- 48* -- 50* -- 53* < > -- CREATININE mg/dL -- -- -- 4.3* -- 4.4* -- 4.2* < > -- CALCIUM mg/dL -- -- -- 8.9 -- 8.6* -- 8.6* < > 7.4* GLUCOSE mg/dL -- -- -- 208* -- 84 -- 179* < > -- GLUCOSE, POC mg/dL 99 219* 170* -- < > -- < > -- < > -- EGFR -- -- -- 13* -- 13* -- 14* < > -- ALBUMIN g/dL -- -- -- -- -- -- -- -- -- 3.5 < > = values in this interval not displayed. Lab Results Component Value Date MG 1.8 10/28/2024 Results from last 7 days Lab Units 10/28/24 0700 10/27/24 0729 10/26/24 0618 WHITE BLOOD CELL COUNT Thou/uL 9.2 9.2 9.7 HEMOGLOBIN g/dL 8.7* 9.0* 8.6* HEMATOCRIT % 29.1* 29.8* 27.9* PLATELET COUNT Thou/uL 326 321 328 Lab Results Component Value Date HSTNT 2,071 () 10/26/2024 HSTNT 2,468 (HH) 10/25/2024 HSTNT 2,413 () 10/25/2024 Lab Results Component Value Date PROBNP >70,000 (H) 10/18/2024 Lab Results Component Value Date HGBA1C 8.7 (H) 10/19/2024 Imaging Studies All appropriate imaging studies within the past 24 hours reviewed (actual images) Sign Macy Macias PA-C 10/29/2024 7:45 AM * Thomas Medrano MD - 10/29/2024 7:31 AM EST Hospital Medicine Progress note Assessment & Plan NSTEMI Acute on chronic HFrEF, EF 28% Moderate MR Acute hypoxemic respiratory failure, in setting of ADHF Primary hypertension -Transferred from outside hospital due to DKA and NSTEMI. On admission: High- sensitivity troponin 4100, NT proBNP 70K > 47k. CXR with pulmonary edema -S/p bilateral thoracentesis 10/29/2024 -TTE showed EF of 20% on 10/18/2024. -Has been receiving Lasix 40 mg IV daily, daily evaluation for diuretics need -Continue aspirin 81 mg, atorvastatin 80 mg. On heparin gtt. -Continue metoprolol succinate 75 mg daily -Strict I's and O's, daily weight, low-sodium diet, monitor vitals, telemonitoring. -Cardiology following: Planning for left heart angiography, timing, 10/30? Patient is at risk of RADHA Stage V CKD CKD anemia -On darbepoetin injection weekly and calcitriol 0.5 mcg daily. Sodium citrate- citric acid twice daily -Nephrology following -Monitor urine output, renal function, and electrolyte Type 2 diabetes mellitus -On linagliptin 5 mg daily -Lantus daily, lispro with meals, correctional lispro for blood glucose higher than 140. -Monitor glucose Hypothyroidism -Continue levothyroxine 25 mcg daily COVID infection -COVID-positive on 10/19, on airborne precaution aspirin, 81 mg, Daily atorvastatin, 80 mg, Daily calcitRIOL, 0.5 mcg, Daily calcium carbonate, 500 mg, BID chlorhexidine, 15 mL, BID darbepoetin kelley (ARANESP) injection, 60 mcg, Weekly insulin glargine, 12 Units, Daily insulin lispro, 1-4 Units, NIGHTLY & 2AM insulin lispro, 1-6 Units, TID with meals insulin lispro, 2-9 Units, TID with meals levothyroxine, 25 mcg, Daily 6AM linagliptin, 5 mg, Daily metoPROLOL SUCCINATE, 75 mg, Daily senna-docusate, 2 tablet, Nightly sodium citrate-citric acid, 30 mL, BID PC B&D bisacodyl, 10 mg, Daily PRN glucose, 1 Tube, Q15 Min PRN Or glucose, 2 Tube, Q15 Min PRN Or dextrose, 12.5 g, Q15 Min PRN Or dextrose, 25 g, Q15 Min PRN Or glucagon, 1 mg, Daily PRN heparin (porcine), 30 Units/kg, Q6H PRN lactulose, 30 mL, Q4H PRN naloxone, 0.4 mg, Q5 Min PRN heparin (porcine) IV infusion - low dose protocol, 12 Units/kg/hr (Order- Specific), Last Rate: 15 Units/kg/hr (10/28/24 0933) Quality Metrics DVT PROPHYLAXIS Risk Assessment Scores and Dates: VTE Time Out IMPROVE SCORE: 2 (10/18/2024 10:24 AM) Interpretation - High Risk Chemical Prophylaxis heparin (porcine) IV infusion 25,000 units in 500 mL 0.45% NaCl (premix) Intravenous Continuous heparin (porcine) 1000 unit/mL injection 2,100 Units Intravenous Every 6 hours PRN Mechanical Prophylaxis SCDs are ordered - Bilateral (Knee High) Expected Date of Discharge 11/02/2024 Subjective Neymar Wilder feels better. No CP or SOB. No dizziness or nausea. Objective Vitals: 10/28/24 0418 10/28/24 0829 10/28/24 1213 10/28/24 1529 BP: (!) 145/66 (!) 147/65 135/60 (!) 144/67 Pulse: 63 62 69 67 Resp: 18 18 16 18 Temp: 98.2 ??F (36.8 ??C) 97.4 ??F (36.3 ??C) 98.1 ??F (36.7 ??C) 98.2 ??F (36.8 ??C) SpO2: 97% 95% 97% 100% 10/28/24 1712 10/28/24 1915 10/28/24 2358 10/29/24 0412 BP: (!) 147/73 130/74 132/64 (!) 144/65 Pulse: 65 63 63 61 Resp: (!) 16 18 Temp: 97.8 ??F (36.6 ??C) 97.2 ??F (36.2 ??C) 96.7 ??F (35.9 ??C) SpO2: 99% 94% 95% Physical Exam Constitutional: General: He is not in acute distress. Eyes: General: No scleral icterus. Cardiovascular: Heart sounds: No murmur heard. Pulmonary: Effort: No respiratory distress. Breath sounds: No wheezing or rales. Abdominal: General: There is no distension. Tenderness: There is no abdominal tenderness. Musculoskeletal: General: No swelling. Cervical back: Normal range of motion. Skin: General: Skin is dry. Neurological: Mental Status: He is alert and oriented to person, place, and time. Motor: No weakness. Psychiatric: Mood and Affect: Mood normal. Relevant data reviewed Results from last 7 days Lab Units 10/28/24 0700 WHITE BLOOD CELL COUNT Thou/uL 9.2 HEMOGLOBIN g/dL 8.7* HEMATOCRIT % 29.1* PLATELET COUNT Thou/uL 326 Results from last 7 days Lab Units 10/29/24 0207 10/28/24 1659 10/28/24 1538 SODIUM mmol/L -- -- 143 POTASSIUM mmol/L -- -- 4.7 CHLORIDE mmol/L -- -- 105 CO2 mmol/L -- -- 25 BUN mg/dL -- -- 48* CREATININE mg/dL -- -- 4.3* EGFR -- -- 13* GLUCOSE mg/dL -- -- 208* GLUCOSE, POC mg/dL 99 < > -- CALCIUM mg/dL -- -- 8.9 < > = values in this interval not displayed. Current Outpatient Medications Medication Instructions allopurinol (ZYLOPRIM) 100 mg, Oral, Daily amLODIPine (NORVASC) 5 mg, Oral, Daily aspirin enteric coated (ECOTRIN LOW STRENGTH) 81 mg, Oral, Daily calcitRIOL (ROCALTROL) 0.25 mcg, Oral, Weekly, Tuesdays carvedilol (COREG) 6.25 mg, Oral, 2 times daily with meals clopidogrel (PLAVIX) 75 mg, Oral, Daily levothyroxine (SYNTHROID, LEVOTHROID) 25 mcg, Oral, Daily sitaGLIPtin (JANUVIA) 100 mg, Oral, Daily sodium bicarbonate 650 mg, Oral, 2 times daily spironolactone (ALDACTONE) 25 mg, Oral, Daily terazosin (HYTRIN) 5 mg, Oral, Nightly Sign Thomas Medrano MD 10/29/2024 7:31 AM * Garth Perez DO - 10/28/2024 11:02 AM EST Date 10/28/2024 Assessment & Plan 79y/o male PMHx DM, HTN, CKD V (bCR~5 from 05/2023) d/t HTN + DM (neph Dr in [place]), admit as xfer [facility]H with dyspnea (COVID+) and DKA. ?NSTEMI. TTE 10/18/24 - EF 28% - new. Assessment CKD 5 NSTEMI Anemia of CKD Hypocalcemia COVID + Plan No change to GFR RADHA risk remains unchanged [facility] timing - TBD Lytes reviewed - K, CO2, PO4 remain acceptable Continue Aranesp 60 mcg weekly for anemia of CKD No change to Bicitra Rx for Hx acidosis For Hx secondary hyperparathyroidism, continue calcitriol 0.5 mcg daily along with Tums 500 mg twice daily Subjective HPI Heparin drip ongoing Placed back on 2 L oxy mask with hypoxia noted but no dyspnea He has no dyspnea sxs Review of Systems Respiratory: negative Cardiovascular: negative Gastrointestinal: negative Neurological: negative Remainder ROS were negative except as mentioned above in HPI. Objective Medications Medication/MAR Report: Medications Scheduled Medication Ordered Dose/Rate, Route, Frequency Last Action aspirin chewable tablet 81 mg 81 mg, PO, Daily Given, 81 mg at 10/28 835 atorvastatin (LIPITOR) tablet 80 mg 80 mg, PO, Daily Given, 80 mg at 10/28 835 calcitRIOL (ROCALTROL) capsule 0.5 mcg 0.5 mcg, PO, Daily Given, 0.5 mcg at 10/28 834 calcium carbonate (TUMS) chewable tablet 500 mg 500 mg, PO, BID Given, 500 mg at 10/28 835 chlorhexidine (PERIDEX) 0.12 % oral solution 15 mL 15 mL, MT, BID Given, 15 mL at 10/28 834 darbepoetin kelley (ARANESP) injection 60 mcg 60 mcg, SC, Weekly Given, 60 mcg at 10/23 1436 insulin glargine (LANtus/SEMGLEE) 100 units/mL injection 14 Units 14 Units, SC, Daily Given, 14 Units at 10/28 835 insulin lispro (HumaLOG/ADMELOG) 100 units/mL injection 1-4 Units 1-4 Units, SC, NIGHTLY & 2AM Given, 1 Units at 10/27 2025 insulin lispro (HumaLOG/ADMELOG) 100 units/mL injection 1-6 Units 1-6 Units, SC, TID with meals Given, 3 Units at 01/18 1710 insulin lispro (HumaLOG/ADMELOG) 100 units/mL injection 1-8 Units 1-8 Units, SC, TID with meals Given, 4 Units at 10/28 1016 levothyroxine (SYNTHROID, LEVOTHROID) tablet 25 mcg 25 mcg, PO, Daily 6AM Given, 25 mcg at 10/28 0514 linagliptin (TRADJENTA) tablet 5 mg 5 mg, PO, Daily Given, 5 mg at 10/28 0735 metoPROLOL SUCCINATE (TOPROL-XL) 24 hr tablet 75 mg 75 mg, PO, Daily Given, 75 mg at 10/28 835 senna-docusate (SENNA-S) 8.6-50 MG tablet 2 tablet 2 tablet, PO, Nightly Given, 2 tablet at 10/27 2025 sodium citrate-citric acid (BICITRA) 500-334 mg/5 mL solution 30 mL 30 mL, PO, BID PC B&D Given, 30 mL at 10/28 0735 Continuous Medication Ordered Dose/Rate, Route, Frequency Last Action heparin (porcine) IV infusion 25,000 units in 500 mL 0.45% NaCl (premix) 12 Units/kg/hr, IV, Continuous New Bag, 15 Units/kg/hr at 10/28 0933 PRN Medication Ordered Dose/Rate, Route, Frequency Last Action bisacodyl (DULCOLAX) suppository 10 mg 10 mg, RE, Daily PRN Ordered dextrose 50 % solution 12.5 g (Or Linked Group #1) 12.5 g, IV, Q15 Min PRN Given, 12.5 g at 10/27 105 dextrose 50 % solution 25 g (Or Linked Group #1) 25 g, IV, Q15 Min PRN See Alternative, 10/27 105 glucagon (GLUCAGEN) injection 1 mg (Or Linked Group #1) 1 mg, IM, Daily PRN See Alternative, 10/27 105 glucose (GLUTOSE 15) 40 % oral gel 37.5 g (Or Linked Group #1) 1 Tube, PO, Q15 Min PRN See Alternative, 10/27 105 glucose (GLUTOSE 15) 40 % oral gel 75 g (Or Linked Group #1) 2 Tube, PO, Q15 Min PRN See Alternative, 10/27 105 heparin (porcine) 1000 unit/mL injection 2,100 Units 30 Units/kg, IV, Q6H PRN Ordered lactulose (ENULOSE) 10 gm/15 mL solution 20 g 30 mL, PO, Q4H PRN Ordered naloxone (NARCAN) 0.4 mg/mL injection 0.4 mg 0.4 mg, IV, Q5 Min PRN Ordered Allergy No Known Allergies Physical Exam Vitals: 10/28/24 0023 10/28/24 0418 10/28/24 0600 10/28/24 0829 BP: (!) 121/58 (!) 145/66 (!) 147/65 BP Location: Right arm Right arm Right arm Patient Position: Lying Lying Lying Pulse: 63 63 62 Resp: 18 18 Temp: 97.4 ??F (36.3 ??C) 98.2 ??F (36.8 ??C) 97.4 ??F (36.3 ??C) TempSrc: Tympanic Tympanic SpO2: 97% 97% 95% Weight: 154 lb 12.2 oz (70.2 kg) Height: Intake/Output Summary (Last 24 hours) at 10/28/2024 1102 Last data filed at 10/28/2024 0725 Gross per 24 hour Intake 60 ml Output 750 ml Net -690 ml General appearance: Comfortable appearing HEENT: (+) FM O2 Lungs: CTA bilaterally anteriorly Heart: RRR, S1, S2 normal Abdomen: soft, non-tender, BS normal Edema: None Skin: Skin color, texture normal Neurologic: Grossly normal, no asterixis Relevant data reviewed Notable labs are: Recent Labs 10/26/24 0618 10/27/24 0729 10/27/24 1526 10/28/24 0700 NA 145 146* 143 142 K 4.2 3.7 5.2 3.9 CL 107 107 105 105 CO2 23 24 25 25 BUN 61* 59* 53* 50* CREAT 4.0* 4.3* 4.2* 4.4* CALCIUM 7.9* 8.4* 8.6* 8.6* MG 1.9 1.8 -- 1.8 PHOS 4.2 4.6* -- 4.6* Recent Labs 10/26/24 0618 10/27/24 0729 10/28/24 0700 WBC 9.7 9.2 9.2 HGB 8.6* 9.0* 8.7* HCT 27.9* 29.8* 29.1* PLT 328 321 326 I have reviewed the laboratory data within the past 24 hours Sign: Garth Perez DO 10/28/2024 11:02 AM * Day Enzo Casarez APRN - 10/28/2024 9:31 AM EST Endocrinology Progress Note [employer] Endocrinology - Medicine Today's Date: 10/28/2024 Admit Date: 10/18/2024 5:10 AM Consult requested by: Madhav Ryan MD Principal Problem: DKA (diabetic ketoacidosis) (HCC) (POA: Yes) Active Problems: NSTEMI (non-ST elevated myocardial infarction) (HCC) (POA: Unknown) COVID (POA: Yes) Heart failure with reduced ejection fraction (HCC) (POA: Unknown) Pulmonary edema with left heart failure (HCC) (POA: Unknown) Resolved Problems: Assessment & Plan Neymar Wilder is a 79 y.o. male with T2DM, A1c 8.7% (10/29/2023), CKD 5, HTN, presented to outside hospital with PNA and concerns for NSTEMI, DKA on 10/18 likely d/t basal insulin omission , patient was started on insulin drip, DKA resolved and was transitioned off the insulin drip on 10/19, hospital course c/b COViD-19 infection,acute decompensated HFrEF, pulm edema (s/p thoracentesis 10/19) ALISA on CKD, and hyperglycemia. T2DM with hyperglycemia and mild hypoglycemia (resolved) Mild hypoglycemia BG 63 and serum glucose, patient symptomatic much POC BG POC BG 165 one hour later (07: 2901/18). BG's overnight tight but without hypoglycemia. Will lighten her basal insulin for tomorrow. Continues to have mild postprandial BG excursions. Tradjenta reaching steady state today, will holdoff on increasing meal bolus. Addendum: Having post prandial BG excursions Increase Humalog 2-9 units ICR: 1: 7g w/meals Hospital Plan Antihyperglycemic Agent: Tradjenta 5 mg p.o. daily in a.m. (Hold if NPO, give when diet resumed) Basal Insulin: Lantus Insulin 14->12 units Daily (Do not hold basal for NPO status, at risk for DKA, if NPO dose may need to be reduced, notify provider. ) start 10/29. . Meal Carb Scale: Humalog Insulin 1-8 units, 3 times a day with meals. ICR: 1: 9g Meal Correction Scale: Humalog Insulin: 1-6 units, 3 times a day with meals. ISF: 1: 40 > 140 mg/dL Nightly/0200 Correction Humalog Insulin Scale: 1-4 units. ISF: 1: 50 > 200 mg/dL Glucose Monitoring AC/HS & 0200. Notify endocrine team in the daytime or primary team overnight if BG <70 or >350 mg/dL. Hypoglycemia protocol in place. Please reach out to endocrinology team at least one day prior to discharge for discharge recommendations, include where the patient is going (home versus, STR or IRU). Discharge Planning: Plan Reach out to Endocrine for Discharge Recommendations with notice in advance of day of discharge and disposition (SNF vs home) Stop januvia given creat, can continue Tradjenta in it's place. Patient will likely need bolus insulin for discharge and education on use of fast acting insulin. Pertinent Glycemic Management Data: TDD: 27 units (14 basal, 13 bolus) of insulin previous 24 hours. BG Range: 90 mg/dL to 224 mg/dL. Fasting BG 84 mg/dL. Diet: Diet Diabetic/ Calorie Controlled; Carb Counting 60g/meal 5067-1785 kcal Steroids: None Infusions: heparin (porcine) IV infusion - low dose protocol, 12 Units/kg/hr (Order- Specific), Last Rate: 15 Units/kg/hr (10/27/24 1018) History Diabetes History Pre-Admission Regimen: Lantus Solostar 10-14 units Januvia 100 mg daily Diabetes Management: Diaz Akers MD (PCP) Hospital Course Cath postponed until Tuesday Subjective Chief Complaint Diabetes Management Subjective: Patient sitting up in chair, reports he is trying to eat healthy, currently having lunch at 2:30 PM History Review of Systems Constitutional: Negative for appetite change. Gastrointestinal: Negative for nausea and vomiting. No Known Allergies Objective Carb Scale Carb Scale Correction Scale HS/2a Correction Scale MEAL BOLUS ICR: 1: 7g Notify Endo AP if BG <100 prior to giving insulin given age Document Carb Count in MAR Comment Section Hold if NPO or if eats < 14 grams of carbs Give 2 units if eats/drinks 14-20 grams of carbs Give 3 units if eats/drinks 21-27 grams of carbs Give 4 units if eats/drinks 28-34 grams of carbs Give 5 units if eats/drinks 35-41 grams of carbs Give 6 units if eats/drinks 42-48 grams of carbs Give 7 units if eats/drinks 49-55 grams of carbs Give 8 units if eats/drinks 56-62 grams of carbs Give 9 units if eats/drinks 63-69 grams of carbs DO NOT HOLD IF NPO Notify provider if Blood Glucose LESS than 70 For BG 141-180 administer 1 unit For BG 181-220 administer 2 units For BG 221-260 administer 3 units For BG 261-300 administer 4 units For BG 301-340 administer 5 units For BG MORE than 340, administer 6 units AND notify provider DO NOT HOLD IF NPO Notify primary team overnight if Blood Glucose <70 or >350 mg/dL. For BG 201-250 administer 1 unit For BG 251-300 administer 2 units For BG 301-350 administer 3 units For BG MORE than 350, administer 4 units Inpatient Orders I & O's: Intake/Output Summary (Last 24 hours) at 10/28/2024 0932 Last data filed at 10/28/2024 0725 Gross per 24 hour Intake 60 ml Output 750 ml Net -690 ml Scheduled Meds: aspirin, 81 mg, Oral, Daily atorvastatin, 80 mg, Oral, Daily calcitRIOL, 0.5 mcg, Oral, Daily calcium carbonate, 500 mg, Oral, BID chlorhexidine, 15 mL, Mouth/Throat, BID darbepoetin kelley (ARANESP) injection, 60 mcg, Subcutaneous, Weekly insulin glargine, 14 Units, Subcutaneous, Daily insulin lispro, 1-4 Units, Subcutaneous, NIGHTLY & 2AM insulin lispro, 1-6 Units, Subcutaneous, TID with meals insulin lispro, 1-8 Units, Subcutaneous, TID with meals levothyroxine, 25 mcg, Oral, Daily 6AM linagliptin, 5 mg, Oral, Daily metoPROLOL SUCCINATE, 75 mg, Oral, Daily senna-docusate, 2 tablet, Oral, Nightly sodium citrate-citric acid, 30 mL, Oral, BID PC B&D Physical Vitals: 10/28/24 0023 10/28/24 0418 10/28/24 0600 10/28/24 0829 BP: (!) 121/58 (!) 145/66 (!) 147/65 BP Location: Right arm Right arm Right arm Patient Position: Lying Lying Lying Pulse: 63 63 62 Resp: Temp: 97.4 ??F (36.3 ??C) 98.2 ??F (36.8 ??C) 97.4 ??F (36.3 ??C) TempSrc: Tympanic Tympanic SpO2: 97% 97% 95% Weight: 70.2 kg (154 lb 12.2 oz) Height: Intake/Output Summary (Last 24 hours) at 10/28/2024 0932 Last data filed at 10/28/2024 0725 Gross per 24 hour Intake 60 ml Output 750 ml Net -690 ml Physical Exam Vitals reviewed. Cardiovascular: Rate and Rhythm: Normal rate. Pulmonary: Effort: Pulmonary effort is normal. Skin: General: Skin is warm and dry. Neurological: Mental Status: He is alert. Labs Lab Results Component Value Date HGBA1C 8.7 (H) 10/19/2024 Recent Labs 10/27/24 2006 10/28/24 0029 10/28/24 0420 10/28/24 0700 10/28/24 0828 GLUC 203* 129* 109* 84 111* Lab Results Component Value Date ANIONGAP 12 10/28/2024 ANIONGAP 13 10/27/2024 ANIONGAP 15 10/27/2024 Lab Results Component Value Date NA 142 10/28/2024 K 3.9 10/28/2024 CL 105 10/28/2024 CO2 25 10/28/2024 BUN 50 (H) 10/28/2024 CREAT 4.4 (H) 10/28/2024 GLUC 111 (H) 10/28/2024 GLUC 84 10/28/2024 Lab Results Component Value Date HGBA1C 8.7 (H) 10/19/2024 During the day of the visit, 50 minutes spent was spent on the following: and discontinuous time): Reviewing chart, Daytime /overnight events, glucose and MAR data, reviewing labs, ordering medication/insulin, documenting in the patient's record, coordination of care with the primary team and bedside RN. Patient is at risk for hypoglycemia being treated with insulin (high risk medication). Signed Day Casarez Endocrinology - Medicine 10/28/2024 9:32 AM * Kavya Burgess MD - 10/28/2024 8:25 AM EST Hospital Medicine Progress Note LOS: 10 CODE:: Code Status Procedures Full Code Principal Problem: DKA (diabetic ketoacidosis) (HCC) (POA: Yes) Active Problems: NSTEMI (non-ST elevated myocardial infarction) (HCC) (POA: Unknown) COVID (POA: Yes) Heart failure with reduced ejection fraction (HCC) (POA: Unknown) Pulmonary edema with left heart failure (HCC) (POA: Unknown) Resolved Problems: Assessment & Plan Neymar Wilder is a 79 y.o. male with PMHx of insulin-dependent T2DM, HFrEF, CKD, HTN, who presented with to outside hospital with URI symptoms, transferred to [facility] for management of DKA and ICU, stable for downgrade to stepdown level care on 10/20/2024. Hospital course complicatedby NSTEMI on heparin drip, acute hypoxic respiratory failure. #NSTEMI #Acute decompensated HFrEF (LVEF 28%) #Pulmonary edmea and effusion s/p thoracentesis (10/19/24) #Moderate functional MR #HTN Patient presented with a proBNP of 70,000, and up trending troponins. EKG showed sinus rhythm with poor R wave progression and nonspecific T wave abnormalities. Troponin elevated at 1830 -> 4171, concerning for NSTEMI. He was transferred to for further evaluation and management. TTE on 10/18/2024 showed severely decreased LV systolic function with newly reduced LVEF of 28%. Cardiology was consulted. Chest x-ray worsening pulmonary edema. Bilateral thoracentesis were performed 10/19. Patient continues to await heart catheterization. - Cardiology following, appreciate recommendations - Spot dose Lasix today 40 mg IV - Strict I's and O's - Continue heparin drip per ACS protocol - Continue aspirin 81 mg daily - Continue atorvastatin 80 mg daily - metoprolol succinate to 75 mg daily - Continue telemetry -- lab clerk most likely be on Monday 10/30, please make n.p.o. the night prior #Diabetic ketoacidosis, resolved #Type 2 diabetes, insulin-dependent Patient presents from outside hospital due to URI symptoms and found to be in DKA with presenting lab values of 7.13, pCO2 of 25 and serum bicarb of 8. Patient was placed on DKA Glucomander protocol,however he had difficulties with his gap closing. Endocrinology was consulted, patient's beta hydroxybutyrate normalized with stable VBG of well-controlled blood glucose for which he was deemed stable to transfer to subcutaneous insulin. The patient has been n.p.o. at midnight for various nights and back to diet pending [employer] for several days with concern that he may open up his anion gap. We will continue working with endocrinology closely to monitor his blood glucose levels and adjust his i nsulin accordingly -Tradjenta 5 mg daily, please hold if NPO and given diet resumed - Lantus 14 units daily - Insulin sliding scale - Add D5 fluids at low rate if patient is n.p.o. for extended period of times - Glucose checks before meals and at bedtime - Endocrine following, follow recommendations Discharge planning: please reach out to Endocrine- please give advanced notice doses/format depending on disposition ( SNF vs home) #COVID-positive Patient initially came in COVID-positive. Chest x-ray was obtained to evaluate for pulmonary edema,there might be concerns for a consolidation in the right lower lobe. However the patient is asymptomatic, afebrile, white blood cell count 9.2 today. Will continue to monitor for symptoms and treat as necessary. Asymptomatic. - Monitor fever and WBC curve - Airborne precautions 10/19 #ALISA on stage CKD #Anion gap metabolic acidosis secondary to DKA Patient is at around baseline BUN and creatinine. Today BUN 50, Cr 4.4. Nephrology was consulted given the patient is CKD stage V and will need eventual cardiac cath. Per nephrology he currently doesnot need dialysis. --Follow up nephrology recommendations - Stopped sodium bicarbonate tablets - Sodium citrate 30 mL 3 times daily - Darbepoetin alpha 60 mcg weekly - BMP daily - Strict I's and O's - Avoid nephrotoxic agents #Anemia -Darbepoetin 60 mcg subcutaneous weekly, last dose 10/23 #Hypocalcemia -Calcitriol 0.5 mcg daily - Calcium carbonate 500 mg twice daily - Followed-up PTH (579) #Hypothyroidism - Continue home Synthroid 25 mcg daily VTE Time Out IMPROVE SCORE: 2 (10/18/2024 10:24 AM) Interpretation - High Risk Chemical Prophylaxis heparin (porcine) IV infusion 25,000 units in 500 mL 0.45% NaCl (premix) Intravenous Continuous heparin (porcine) 1000 unit/mL injection 2,100 Units Intravenous Every 6 hours PRN Mechanical Prophylaxis SCDs are ordered - Bilateral (Knee High)Mechanical VTE prophylaxis NOT ordered. Click here to orderif appropriate Mechanical Prophylaxis Contraindication: None - I will order SCDs Patient declined SCD use, Please review Diet: cardiac Tele: yes Lines: PIV GI ppx: no DVT ppx: on therapeutic heparin Dispo: floors Expected Discharge Date: 11/02/2024 Subjective Overnight: Patient did not go to [employer] yesterday, stable overnight no acute events Today: Patient seen and examined at this morning. He is on supplemental oxygen. He states he is feeling well and awaits [employer]. I communicated that the cath is again delayed and most likely will happen early next week. Will continue to optimize the patient. Objective Last Vitals Pulse:62,Resp:18,BP:(!) 147/65,SpO2:95 %,Weight:70.2 kg (154 lb 12.2 oz) Temp Last 24 hrs: Temp Min: 97.4 ??F (36.3 ??C) Max: 98.5 ??F (36.9 ??C) Last temp: 97.4 ??F (36.3 ??C) Intake/Output Summary (Last 24 hours) at 10/28/2024 1050 Last data filed at 10/28/2024 0725 Gross per 24 hour Intake 60 ml Output 750 ml Net -690 ml Physical Exam Vitals reviewed. Constitutional: General: He is not in acute distress. Appearance: Normal appearance. He is not ill-appearing. HENT: Mouth/Throat: Mouth: Mucous membranes are moist. Pharynx: Oropharynx is clear. Eyes: Conjunctiva/sclera: Conjunctivae normal. Cardiovascular: Rate and Rhythm: Normal rate and regular rhythm. Pulses: Normal pulses. Heart sounds: Normal heart sounds. No murmur heard. No friction rub. No gallop. Pulmonary: Effort: Pulmonary effort is normal. No respiratory distress. Breath sounds: Normal breath sounds. No stridor. No wheezing, rhonchi or rales. Comments: No obvious crackles on exam Abdominal: General: Abdomen is flat. Bowel sounds are normal. There is no distension. Palpations: Abdomen is soft. There is no mass. Tenderness: There is no abdominal tenderness. Musculoskeletal: Right lower leg: No edema. Left lower leg: No edema. Skin: General: Skin is warm and dry. Coloration: Skin is not jaundiced or pale. Neurological: Mental Status: He is alert and oriented to person, place, and time. Relevant data reviewed Labs, Notes, Meds, and Radiology Notable labs are: White Blood Cell Count Date Value Ref Range Status 10/28/2024 9.2 4.0 - 11.0 Thou/uL Final Hemoglobin Date Value Ref Range Status 10/28/2024 8.7 (L) 13.0 - 17.7 g/dL Final Hematocrit Date Value Ref Range Status 10/28/2024 29.1 (L) 39.0 - 54.0 % Final Platelet Count Date Value Ref Range Status 10/28/2024 326 150 - 450 Thou/uL Final Lab Results Component Value Date NA 142 10/28/2024 K 3.9 10/28/2024 CL 105 10/28/2024 CO2 25 10/28/2024 BUN 50 (H) 10/28/2024 CREAT 4.4 (H) 10/28/2024 GLUC 111 (H) 10/28/2024 GLUC 84 10/28/2024 Lab Results Component Value Date CALCIUM 8.6 (L) 10/28/2024 MG 1.8 10/28/2024 PHOS 4.6 (H) 10/28/2024 Lab Results Component Value Date ALBUMIN 3.5 10/23/2024 Imaging Studies CXR Report reviewed and Image reviewed Hospital Course Neymar Baum Stephanieomar is a 79 y.o. male with PMHx of insulin-dependent diabetes, HFrEF, stage V CKD, hypertension who was admitted ICU level care due to DKA as well as an NSTEMI on a heparin drip. Hospital course complicated by AHRF likely 2/2 HF exacerbation less likely from COVID pneumonia given congestion on CXR and significant improvement in oxygen requirements following thoracentesis and diuresis. Patient is s/p bilateral thoracentesis on 10/19/24. He was transitioned off insulin drip to subcutaneous insulin and diabetic diet on 10/19/24. Although anion gap is elevated, it does not correlatewith persistently normal BHB levels or normal lactate; this was dicussed with endocrine and patientis no longer in DKA given normal BHB and stable VBG and well controlled BG levels. Otherwise, patient was noted to have an NSTEMI for which he remains on a heparin drip per cardiology recs. On medical floors, patient continues on heparin drip pending further workup per cardiology. Remains asymptomatic from his COVID infection. Repeat BMPs with normal gap. 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 Patient requires intermittent doses of IV Lasix for pulmonary edema and work of breathing. Kavya Burgess MD. PGY-2 Internal Medicine [place] Text Preferred Associated attestation - Madhav Ryan MD - 10/28/2024 12:58 PM EST Teaching Attending Inpatient Attestation: I have personally interviewed and examined the patient and reviewed Dr. Burgess's note. I agree with the history, exam, assessment and plan as detailed in the Resident/Fellow's note with the following additions/exceptions/observations. Seen and examined patient on 10/28/2024. Awaiting cath. No complaints. Sugars stable. ALISA on CKD andAGMA stable. Trend reviewed. Patient verbalized understanding of plan and risks. Sign: Madhav Ryan MD 10/28/2024 12:56 PM * Donavon Rodgers MD - 10/27/2024 12:11 PM EST Hospital Medicine Progress Note LOS: 9 CODE:: Code Status Procedures Full Code Principal Problem: DKA (diabetic ketoacidosis) (HCC) (POA: Yes) Active Problems: NSTEMI (non-ST elevated myocardial infarction) (HCC) (POA: Unknown) COVID (POA: Yes) Heart failure with reduced ejection fraction (HCC) (POA: Unknown) Pulmonary edema with left heart failure (HCC) (POA: Unknown) Resolved Problems: Assessment & Plan Neymar Wilder is a 79 y.o. male with PMHx of insulin-dependent T2DM, HFrEF, CKD, HTN, who presented with to outside hospital with URI symptoms, transferred to [facility] for management of DKA and ICU, stable for downgrade to stepdown level care on 10/20/2024. Hospital course complicatedby NSTEMI on heparin drip, acute hypoxic respiratory failure. #NSTEMI #Acute decompensated HFrEF (LVEF 28%) #Pulmonary edmea and effusion s/p thoracentesis (10/19/24) #Moderate functional MR #HTN Patient presented with a proBNP of 70,000, and up trending troponins. EKG showed sinus rhythm with poor R wave progression and nonspecific T wave abnormalities. Troponin elevated at 1830 -> 4171, concerning for NSTEMI. He was transferred to for further evaluation and management. TTE on 10/18/2024 showed severely decreased LV systolic function with newly reduced LVEF of 28%. Cardiology was consulted. Chest x-ray worsening pulmonary edema. Bilateral thoracentesis were performed 10/19. Patient continues to await heart catheterization. - Cardiology following, appreciate recommendations - Spot dose Lasix today 40 mg IV - Strict I's and O's - Continue heparin drip per ACS protocol - Continue aspirin 81 mg daily - Continue atorvastatin 80 mg daily - metoprolol succinate to 75 mg daily - Continue telemetry -- lab clerk most likely be on Monday 10/30, please make n.p.o. the night prior #Diabetic ketoacidosis, resolved #Type 2 diabetes, insulin-dependent Patient presents from outside hospital due to URI symptoms and found to be in DKA with presenting lab values of 7.13, pCO2 of 25 and serum bicarb of 8. Patient was placed on DKA Glucomander protocol,however he had difficulties with his gap closing. Endocrinology was consulted, patient's beta hydroxybutyrate normalized with stable VBG of well-controlled blood glucose for which he was deemed stable to transfer to subcutaneous insulin. The patient has been n.p.o. at midnight pending [employer] for several days resuming a diet in the evening and there is concern that he may open up his anion gap. We will continue working with endocrinology closely to monitor his blood glucose levels and adjust his insulin accordingly -Tradjenta 5 mg daily, please hold if NPO and given diet resumed - Lantus 16 units daily - Insulin sliding scale - Add D5 fluids at low rate if patient is n.p.o. for extended period of times - Glucose checks before meals and at bedtime - Endocrine following, follow recommendations Discharge planning: please reach out to Endocrine- please give advanced notice doses/format depending on disposition ( SNF vs home) #COVID-positive Patient initially came in COVID-positive. Chest x-ray was obtained to evaluate for pulmonary edema,there might be concerns for a consolidation in the right lower lobe. However the patient is asymptomatic, afebrile, white blood cell count 9.7 today. Will continue to monitor for symptoms and treat as necessary. Asymptomatic. - Monitor fever and WBC curve - Airborne precautions 10/19 #ALISA on stage CKD #Anion gap metabolic acidosis secondary to DKA Patient is at his baseline BUN and creatinine 80/4.8. Nephrology was consulted given the patient isCKD stage V and will need eventual cardiac cath. Per nephrology he currently does not need dialysis. --Follow up nephrology recommendations - Stop sodium bicarbonate tablets - Sodium citrate 30 mL 3 times daily - Darbepoetin alpha 60 mcg weekly - BMP daily - Strict I's and O's - Avoid nephrotoxic agents #Anemia -Darbepoetin 60 mcg subcutaneous weekly, last dose 10/23 #Hypocalcemia worsening now down to 7.1. -Calcitriol 0.5 mcg daily - Calcium carbonate 500 mg twice daily - Follow-up PTH #Hypothyroidism - Continue home Synthroid 25 mcg daily VTE Time Out IMPROVE SCORE: 2 (10/18/2024 10:24 AM) Interpretation - High Risk Chemical Prophylaxis heparin (porcine) IV infusion 25,000 units in 500 mL 0.45% NaCl (premix) Intravenous Continuous heparin (porcine) 1000 unit/mL injection 2,100 Units Intravenous Every 6 hours PRN Mechanical Prophylaxis SCDs are ordered - Bilateral (Knee High)Mechanical VTE prophylaxis NOT ordered. Click here to orderif appropriate Mechanical Prophylaxis Contraindication: None - I will order SCDs Patient declined SCD use, Please review Diet: cardiac Tele: yes Lines: PIV GI ppx: no DVT ppx: on therapeutic heparin Dispo: floors Expected Discharge Date: 10/30/2024 Subjective Overnight: Patient did not go to [employer] yesterday, stable overnight no acute events Today: Patient seen and examined at this morning. He is on supplemental oxygen. He states he is feeling well and awaits [employer]. I communicated that the cath is again delayed and most likely will happen early next week, the patient expressed disappointment but understood has been patient with our team. Will continue to optimize the patient. Objective Last Vitals Pulse:69,Resp:18,BP:(!) 121/55,SpO2:98 %,Weight:66.3 kg (146 lb 2.6 oz) Temp Last 24 hrs: Temp Min: 97.4 ??F (36.3 ??C) Max: 98.6 ??F (37 ??C) Last temp: 98.5 ??F (36.9 ??C) (Tympanic) Intake/Output Summary (Last 24 hours) at 10/27/2024 1211 Last data filed at 10/27/2024 0749 Gross per 24 hour Intake 60 ml Output 450 ml Net -390 ml Physical Exam Vitals reviewed. Constitutional: General: He is not in acute distress. Appearance: Normal appearance. He is not ill-appearing. HENT: Mouth/Throat: Mouth: Mucous membranes are moist. Pharynx: Oropharynx is clear. Eyes: Conjunctiva/sclera: Conjunctivae normal. Cardiovascular: Rate and Rhythm: Normal rate and regular rhythm. Pulses: Normal pulses. Heart sounds: Normal heart sounds. No murmur heard. No friction rub. No gallop. Pulmonary: Effort: Pulmonary effort is normal. No respiratory distress. Breath sounds: Normal breath sounds. No stridor. No wheezing, rhonchi or rales. Comments: No obvious crackles on exam Abdominal: General: Abdomen is flat. Bowel sounds are normal. There is no distension. Palpations: Abdomen is soft. There is no mass. Tenderness: There is no abdominal tenderness. Musculoskeletal: Right lower leg: No edema. Left lower leg: No edema. Skin: General: Skin is warm and dry. Coloration: Skin is not jaundiced or pale. Neurological: Mental Status: He is alert and oriented to person, place, and time. Relevant data reviewed Labs, Notes, Meds, and Radiology Notable labs are: White Blood Cell Count Date Value Ref Range Status 10/27/2024 9.2 4.0 - 11.0 Thou/uL Final Hemoglobin Date Value Ref Range Status 10/27/2024 9.0 (L) 13.0 - 17.7 g/dL Final Hematocrit Date Value Ref Range Status 10/27/2024 29.8 (L) 39.0 - 54.0 % Final Platelet Count Date Value Ref Range Status 10/27/2024 321 150 - 450 Thou/uL Final Lab Results Component Value Date NA 146 (H) 10/27/2024 K 3.7 10/27/2024 CL 107 10/27/2024 CO2 24 10/27/2024 BUN 59 (H) 10/27/2024 CREAT 4.3 (H) 10/27/2024 GLUC 165 (H) 10/27/2024 GLUC 63 (L) 10/27/2024 Lab Results Component Value Date CALCIUM 8.4 (L) 10/27/2024 MG 1.8 10/27/2024 PHOS 4.6 (H) 10/27/2024 Lab Results Component Value Date ALBUMIN 3.5 10/23/2024 Imaging Studies CXR Report reviewed and Image reviewed Hospital Course Neymar Wilder is a 79 y.o. male with PMHx of insulin-dependent diabetes, HFrEF, stage V CKD, hypertension who was admitted ICU level care due to DKA as well as an NSTEMI on a heparin drip. Hospital course complicated by AHRF likely 2/2 HF exacerbation less likely from COVID pneumonia given congestion on CXR and significant improvement in oxygen requirements following thoracentesis and diuresis. Patient is s/p bilateral thoracentesis on 10/19/24. He was transitioned off insulin drip to subcutaneous insulin and diabetic diet on 10/19/24. Although anion gap is elevated, it does not correlatewith persistently normal BHB levels or normal lactate; this was dicussed with endocrine and patientis no longer in DKA given normal BHB and stable VBG and well controlled BG levels. Otherwise, patient was noted to have an NSTEMI for which he remains on a heparin drip per cardiology recs. On medical floors, patient continues on heparin drip pending further workup per cardiology. Remainsasymptomatic from his COVID infection. Repeat BMPs with normal gap. 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 Patient requires intermittent doses of IV Lasix for pulmonary edema and work of breathing. Donavon Rodgers MD PGY-1 Internal Medicine [place] Text Preferred Associated attestation - Madhav Ryan MD - 10/27/2024 12:59 PM EST Teaching Attending Inpatient Attestation: I have personally interviewed and examined the patient and reviewed Dr. Rodgers's note. I agree withthe history, exam, assessment and plan as detailed in the Resident/Fellow's note with the followingadditions/exceptions/observations. Seen and examined patient on 10/27/2024. Patient verbalized understanding of plan and risks. No plans for cath today. Creat 4.3, Patient updated. Tolerating po. Sign: Madhav Ryan MD 10/27/2024 12:58 PM * Garth Perez DO - 10/27/2024 11:12 AM EST Date 10/27/2024 Assessment & Plan 79y/o male PMHx DM, HTN, CKD V (bCR~5 from 05/2023) d/t HTN + DM (neph Dr in [place]), [facility] with dyspnea (COVID+) and DKA. ?NSTEMI. TTE 10/18/24 - EF 28% - new. Assessment CKD 5 NSTEMI Anemia of CKD Hypocalcemia COVID + Plan Renal function remains unchanged, CKD 5 category His RADHA risk remains unchanged Tentative plans for cardiac cath early next week-Monday 10/30 I am told Agree with weaning O2 today K, CO2, PO4 are acceptable Continue Aranesp 60 mcg weekly for anemia of CKD No change to Bicitra Rx for Hx acidosis For Hx secondary hyperparathyroidism, continue calcitriol 0.5 mcg daily along with Tums 500 mg twice daily Subjective HPI Heparin drip ongoing overnight N.p.o. today possible cardiac cath O2 4 L oxy mask ongoing Review of Systems Respiratory: negative Cardiovascular: negative Gastrointestinal: negative Neurological: negative Remainder ROS were negative except as mentioned above in HPI. Objective Medications Medication/MAR Report: Medications Scheduled Medication Ordered Dose/Rate, Route, Frequency Last Action aspirin chewable tablet 81 mg 81 mg, PO, Daily Given, 81 mg at 01/18 0924 atorvastatin (LIPITOR) tablet 80 mg 80 mg, PO, Daily Given, 80 mg at 10/27 923 calcitRIOL (ROCALTROL) capsule 0.5 mcg 0.5 mcg, PO, Daily Given, 0.5 mcg at 10/27 923 calcium carbonate (TUMS) chewable tablet 500 mg 500 mg, PO, BID Given, 500 mg at 10/27 923 chlorhexidine (PERIDEX) 0.12 % oral solution 15 mL 15 mL, MT, BID Given, 15 mL at 10/27 922 darbepoetin kelley (ARANESP) injection 60 mcg 60 mcg, SC, Weekly Given, 60 mcg at 10/23 1436 insulin glargine (LANtus/SEMGLEE) 100 units/mL injection 14 Units 14 Units, SC, Daily Given, 14 Units at 10/27 923 insulin lispro (HumaLOG/ADMELOG) 100 units/mL injection 1-4 Units 1-4 Units, SC, NIGHTLY & 2AM Ordered insulin lispro (HumaLOG/ADMELOG) 100 units/mL injection 1-6 Units 1-6 Units, SC, TID with meals Given, 1 Units at 10/27 923 insulin lispro (HumaLOG/ADMELOG) 100 units/mL injection 1-8 Units 1-8 Units, SC, TID with meals Given, 6 Units at 10/26 1821 levothyroxine (SYNTHROID, LEVOTHROID) tablet 25 mcg 25 mcg, PO, Daily 6AM Given, 25 mcg at 10/27 534 linagliptin (TRADJENTA) tablet 5 mg 5 mg, PO, Daily Given, 5 mg at 10/27 923 metoPROLOL SUCCINATE (TOPROL-XL) 24 hr tablet 75 mg 75 mg, PO, Daily Given, 75 mg at 10/27 923 senna-docusate (SENNA-S) 8.6-50 MG tablet 2 tablet 2 tablet, PO, Nightly Given, 2 tablet at 10/26 2032 sodium citrate-citric acid (BICITRA) 500-334 mg/5 mL solution 30 mL 30 mL, PO, BID PC B&D Given, 30 mL at 10/27 922 Continuous Medication Ordered Dose/Rate, Route, Frequency Last Action heparin (porcine) IV infusion 25,000 units in 500 mL 0.45% NaCl (premix) 12 Units/kg/hr, IV, Continuous New Bag, 15 Units/kg/hr at 10/27 1018 PRN Medication Ordered Dose/Rate, Route, Frequency Last Action bisacodyl (DULCOLAX) suppository 10 mg 10 mg, RE, Daily PRN Ordered dextrose 50 % solution 12.5 g (Or Linked Group #1) 12.5 g, IV, Q15 Min PRN Given, 12.5 g at 10/27 010 dextrose 50 % solution 25 g (Or Linked Group #1) 25 g, IV, Q15 Min PRN See Alternative, 10/27 105 glucagon (GLUCAGEN) injection 1 mg (Or Linked Group #1) 1 mg, IM, Daily PRN See Alternative, 10/27 105 glucose (GLUTOSE 15) 40 % oral gel 37.5 g (Or Linked Group #1) 1 Tube, PO, Q15 Min PRN See Alternative, 10/27 105 glucose (GLUTOSE 15) 40 % oral gel 75 g (Or Linked Group #1) 2 Tube, PO, Q15 Min PRN See Alternative, 10/27 010 heparin (porcine) 1000 unit/mL injection 2,100 Units 30 Units/kg, IV, Q6H PRN Ordered lactulose (ENULOSE) 10 gm/15 mL solution 20 g 30 mL, PO, Q4H PRN Ordered naloxone (NARCAN) 0.4 mg/mL injection 0.4 mg 0.4 mg, IV, Q5 Min PRN Ordered Allergy No Known Allergies Physical Exam Vitals: 10/27/24 0000 10/27/24 0400 10/27/24 0600 10/27/24 0747 BP: 125/75 132/63 (!) 143/65 BP Location: Right arm Right arm Right arm Patient Position: Lying Lying Lying Pulse: 94 66 63 Resp: 18 16 Temp: 97.4 ??F (36.3 ??C) 97.7 ??F (36.5 ??C) 97.8 ??F (36.6 ??C) TempSrc: Tympanic Tympanic Tympanic SpO2: 99% 96% 96% Weight: 146 lb 2.6 oz (66.3 kg) Height: Intake/Output Summary (Last 24 hours) at 10/27/2024 1112 Last data filed at 10/27/2024 0749 Gross per 24 hour Intake 60 ml Output 450 ml Net -390 ml General appearance: Comfortable appearing Lungs: CTA bilaterally anteriorly Heart: RRR, S1, S2 normal Abdomen: soft, non-tender, BS normal Edema: None Skin: Skin color, texture normal Neurologic: Grossly normal, no asterixis Relevant data reviewed Notable labs are: Recent Labs 10/25/24 0827 10/26/24 0618 10/27/24 0729 NA 141 145 146* K 4.6 4.2 3.7 CL 104 107 107 CO2 21* 23 24 BUN 64* 61* 59* CREAT 3.9* 4.0* 4.3* CALCIUM 7.8* 7.9* 8.4* MG 2.0 1.9 1.8 PHOS 3.8 4.2 4.6* Recent Labs 10/25/24 0827 10/26/24 0618 10/27/24 0729 WBC 12.5* 9.7 9.2 HGB 9.2* 8.6* 9.0* HCT 29.9* 27.9* 29.8* PLT 361 328 321 I have reviewed the laboratory data within the past 24 hours Sign: Garth Perez DO 10/27/2024 11:12 AM * Day Casarez APRN - 10/27/2024 9:07 AM EST Endocrinology Progress Note [employer] Endocrinology - Medicine Today's Date: 10/27/2024 Admit Date: 10/18/2024 5:10 AM Consult requested by: Madhav Ryan MD Principal Problem: DKA (diabetic ketoacidosis) (HCC) (POA: Yes) Active Problems: NSTEMI (non-ST elevated myocardial infarction) (HCC) (POA: Unknown) COVID (POA: Yes) Heart failure with reduced ejection fraction (HCC) (POA: Unknown) Pulmonary edema with left heart failure (HCC) (POA: Unknown) Resolved Problems: Assessment & Plan Neymar Wilder is a 79 y.o. male with T2DM, A1c 8.7% (10/29/2023), CKD 5, HTN, presented to outside hospital with PNA and concerns for NSTEMI, DKA on 10/18, patient was started on insulin drip, DKA resolved and was transitioned off the insulin drip on 10/19. T2DM with hyperglycemia and mild hypoglycemia (resolved) Currently on low dose dextrose (Na+146), BG within range for most of the day yesterday while NPO. BG drop to 74 at 12 AM while NPO, received D5W 12.5g. Repeat BG 155 mg/dL. 4 AM BG 90, serum BG 63, POC BG 165 at 08:58. Continue DDP4i to assist with controlling post prandial BG excursions. Per team, cath postponed until next week. Hospital Plan Tradjenta 5 mg p.o. daily in a.m. (Hold if NPO, give when diet resumed) Basal Insulin: Lantus Insulin 16->14 units now and daily . Meal Carb Scale: Humalog Insulin 1-8 units, 3 times a day with meals. ICR: 1: 9g Meal Correction Scale: Humalog Insulin: 1-6 units, 3 times a day with meals. ISF: 1: 40 > 140 mg/dL Nightly/0200 Correction Humalog Insulin Scale: 1-4 units at 2100 & 0200.. ISF: 1: 50 > 200 mg/dL Glucose Monitoring AC/HS & 0200. Notify endocrine team in the daytime or primary team overnight if BG <70 or >350 mg/dL. Hypoglycemia protocol in place. Please reach out to endocrinology team at least one day prior to discharge for discharge recommendations, include where the patient is going (home versus, STR or IRU). Discharge Planning: Plan Reach out to Endocrine for Discharge Recommendations. Pertinent Glycemic Management Data: TDD: 22 units (16 basal, 6 bolus) of insulin previous 24 hours. BG Range: 100 mg/dL - 120 mg/dL. 8 AM BG 165 mg/dL. Diet: Diet NPO; Meds Diet Diabetic/ Calorie Controlled; Carb Counting 60g/meal [id number] kcal Steroids: none Infusions: dextrose, 25 mL/hr, Last Rate: 25 mL/hr (10/27/24 0042) heparin (porcine) IV infusion - low dose protocol, 12 Units/kg/hr (Order- Specific), Last Rate: 15 Units/kg/hr (10/26/24 1047) History Diabetes History Pre-Admission Regimen: Lantus Solostar 10-14 units Januvia 100 mg daily Diabetes Management: Diaz Akers MD (PCP) Subjective Chief Complaint Diabetes Management Subjective: snacking in between meal, urgently needed BR, staff informed. History Review of Systems Constitutional: Negative for appetite change. Gastrointestinal: Negative for nausea and vomiting. No Known Allergies Objective Carb Scale Correction Scale HS/2a Correction Scale Please document the amount of carbs consumed in the comments section when insulin is given. MEAL BOLUS, hold if NPO or if eats < 10 grams of carbs Give 1 unit if eats/drinks 10-17 grams of carbs Give 2 units if eats/drinks 18-26 grams of carbs Give 3 units if eats/drinks 27-35 grams of carbs Give 4 units if eats/drinks 36-44 grams of carbs Give 5 units if eats/drinks 45-53 grams of carbs Give 6 units if eats/drinks 54-62 grams of carbs Give 7 units if eats/drinks 63-71 grams of carbs Give 8 units if eats/drinks at least 72 grams of carbs DO NOT HOLD IF NPO Notify provider if Blood Glucose LESS than 70 For BG 141-180 administer 1 unit For BG 181-220 administer 2 units For BG 221-260 administer 3 units For BG 261-300 administer 4 units For BG 301-340 administer 5 units For BG MORE than 340, administer 6 units AND notify provider DO NOT HOLD IF NPO Notify primary team overnight if Blood Glucose <70 or >350 mg/dL. For BG 201-250 administer 1 unit For BG 251-300 administer 2 units For BG 301-350 administer 3 units For BG MORE than 350, administer 4 units Inpatient Orders I & O's: Intake/Output Summary (Last 24 hours) at 10/27/2024 0907 Last data filed at 10/27/2024 0600 Gross per 24 hour Intake 40 ml Output 450 ml Net -410 ml Scheduled Meds: aspirin, 81 mg, Oral, Daily atorvastatin, 80 mg, Oral, Daily calcitRIOL, 0.5 mcg, Oral, Daily calcium carbonate, 500 mg, Oral, BID chlorhexidine, 15 mL, Mouth/Throat, BID darbepoetin kelley (ARANESP) injection, 60 mcg, Subcutaneous, Weekly insulin glargine, 14 Units, Subcutaneous, Daily insulin lispro, 1-4 Units, Subcutaneous, NIGHTLY & 2AM insulin lispro, 1-6 Units, Subcutaneous, TID with meals insulin lispro, 1-8 Units, Subcutaneous, TID with meals levothyroxine, 25 mcg, Oral, Daily 6AM linagliptin, 5 mg, Oral, Daily metoPROLOL SUCCINATE, 75 mg, Oral, Daily senna-docusate, 2 tablet, Oral, Nightly sodium citrate-citric acid, 30 mL, Oral, BID PC B&D Physical Vitals: 10/27/24 0000 10/27/24 0400 10/27/24 0600 10/27/24 0747 BP: 125/75 132/63 (!) 143/65 BP Location: Right arm Right arm Right arm Patient Position: Lying Lying Lying Pulse: 94 66 63 Resp: Temp: 97.4 ??F (36.3 ??C) 97.7 ??F (36.5 ??C) 97.8 ??F (36.6 ??C) TempSrc: Tympanic Tympanic Tympanic SpO2: 99% 96% 96% Weight: 66.3 kg (146 lb 2.6 oz) Height: Intake/Output Summary (Last 24 hours) at 10/27/2024 0907 Last data filed at 10/27/2024 0600 Gross per 24 hour Intake 40 ml Output 450 ml Net -410 ml Physical Exam Vitals reviewed. Cardiovascular: Rate and Rhythm: Normal rate. Pulmonary: Effort: Pulmonary effort is normal. Skin: General: Skin is warm and dry. Neurological: Mental Status: He is alert. Labs Lab Results Component Value Date HGBA1C 8.7 (H) 10/19/2024 Recent Labs 10/27/24 0029 10/27/24 0120 10/27/24 0402 10/27/24 0729 10/27/24 0858 GLUC 74 155* 90 63* 165* Lab Results Component Value Date ANIONGAP 15 10/27/2024 ANIONGAP 15 10/26/2024 ANIONGAP 16 10/25/2024 Lab Results Component Value Date NA 143 10/27/2024 K 5.2 10/27/2024 CL 105 10/27/2024 CO2 25 10/27/2024 BUN 53 (H) 10/27/2024 CREAT 4.2 (H) 10/27/2024 GLUC 224 (H) 10/27/2024 GLUC 179 (H) 10/27/2024 Lab Results Component Value Date HGBA1C 8.7 (H) 10/19/2024 During the day of the visit, 40 minutes spent was spent on the following: and discontinuous time): Reviewing chart, Daytime /overnight events, glucose and MAR data, reviewing labs, ordering medication/insulin, documenting in the patient's record, coordination of care with the primary team and bedside RN. Patient is at risk for hypoglycemia being treated with insulin (high risk medication). Signed Day Casarez Endocrinology - Medicine 10/27/2024 9:07 AM * Bryant Gracia PA-C - 10/27/2024 7:51 AM EST Images from the original note were not included. 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 Presented on 10/18/2024 for URI sx (resolved)--> found to be in DKA.Initially in ICU, on insulin drip; hospital course was complicated NSTEMI for which he was started on heparin drip, also found to have new HFrEF, EF 28%. Pt tested COVID positive but asymptomatic, notherapies were pursued. Furthermore patient was also noted to have worsening ALISA however creatinineincreased to 5.2 was noted to have anion gap metabolic acidosis from DKA nephrology was following. Plan to do ischemic workup this admission. Assessment Acute hypoxic respiratory failure in the setting of COVID infection pulmonary congestion NSTEMI Acute on chronic decompensated HFrEF with EF of 28% Moderate functional MR Pulmonary edema with effusion status postthoracentesis ( 10/19/24) Type 2 diabetes diabetic ketoacidosis insulin-dependent ALISA on CKD stage V creatinine baseline 4.8-5.2 Anion gap metabolic acidosis secondary to DKA and CKD COVID-positive Hypothyroidism Patient noted to have NSVT TTE 10/18/24 LV severely dilated. Eccentric hypertrophy. Left LV systolic function severely decreased. The quantitative EF by 2D Poole biplane is 28% with anterior and anteroseptal wall are akinetic.. The apex is dyskinetic. There is evidence of diastolic dysfunction with elevated left atrial filling pressure. The left atrial cavity severely dilated. RV function is normal. RV systolic function isnormal. ERVSP 52mmHg. Moderate functional MR. There is mild TR. there is a large left pleural effusion Plan Acute decompensated HFrEF (LVEF 28%), NYHA class III, AHA stage C Moderate functional MR Bilateral pleural effusions, s/p bilateral thoracentesis 10/18 Acute on chronic decompensated HFpEF likely secondary to valvular heart disease Acute on chronic HFrEF, LVEF28% NYHA ClassII/III, Stage C Clinically appears mildly trace edema do not appreciate JVD monitor seem euvolemic TTE --LV severely dilated. Severely decreased LVEF RSVF normal, RV systolic pressure 52 moderate functional MR. 24 hr Net- 390mL, Wt 66.3Kg ( 146 IB ) Since admission net- 6102mL, Wt 68.9kg ( 152IB ) Diuresis chest x-ray concern of fluid overload, bilateral opacities noted with pleural effusion patient warm and wet however patient noted to have worsening ALISA defer to nephrology if they are inagreement with IV Lasix can spot place consider 40 mg IV daily as needed recommend goal diuresis 2 to 3 L daily Defer Lasix to nephrology given worsening ALISA. ??GDMT: BB: continue Toprol XL 75 mg daily MRA: On hold Aldactone 25 mg p.o. given worsening ALISA SGLT2 inhibitor :On hold until post cath YULY/ARB/ARNI : Given worsening ALISA on hold until post and given worsening ALISA Daily weights/ Daily renal panel Recommend optimizing electrolytes keep K >or =4.0 and Mg >or=2.0 Strict I's and O's, daily weight. Aggressive risk factor modification and lifestyle changes are encouraged, including optimization ofblood pressure and blood glucose levels, regular aerobic activity, weight loss, heart healthy diet and smoking cessation NSTEMI, NORRIS 34 NSTEMI seem to be multifactor type 1 vs type 2 NSVT Currently patient chest pain-free HsT: 1,830 -> 4,276 currently downtrending to 2413 EKG demonstrates NSR with T wave inversion in V4 through V5 through V6 TTE from 2021 demonstrated LVEF of 55-60%. Given new finding of reduced LVEF 28% on echocardiogram,recommend ischemic workup once metabolic derangements are resolved, consult IC and plan for cath tomorrow spoke with nephrology who is in agreement appreciate input Lázaro Score with 100cc of contrast: 57.3% risk of any post-PCI RADHA; 12.6% post- PCI requiring HD. Troponin elevation can be demand ischemia due to viral pneumonia / Covid and DKA. Cannot rule out IA, COVID myocarditis, or stress induced cardiomyopathy at this point. NSTEMI likely type II demand however unable to rule out type I hence awaiting cardiac Medication regimen Consulted IC appreciate input Plan for possible ischemic workup on Tuesday plan for n.p.o. at midnight on Tuesday night on 10/29---Patient will remain n.p.o.on Tuesday at midnight for hopefully for RHC and C spoke with nephrology who is in agreement to have the patient proceed with cath in a.m. given no availability today Continue heparin gtt per ACS protocol Continue ASA 81 mg daily Continue atorvastatin 80 mg daily Continue Toprol-XL 75 mg p.o. daily Continuous telemetry monitoring Patient will need a private room post cath High risk for SENIOR SECURITY ENGINEER remains unchanged Recommend avoiding albuterol transition to Xopenex to avoid tachycardia tachycardia mediated arrhythmia. ALISA on CKD Creatinine peak of 5.2, down to 4.0 Today creatinine 4.2 Nephrology following appreciate recommendations No indication for HD at this time Daily BMPs Appreciate input from nephrology to proceed with cath Appreciate input from IC team. Using Lázaro Score Risk of any post PCI RADHA 57.3%; risk of post PCI RADHA requiring dialysis 12.6% discussed the risk with patient patient in agreement to proceed with cardiac cath. For details refer to nephrology. HTN HLD Continue with atorvastatin 80 mg p.o.daily Continue with Toprol-XL 75 mg p.o. daily Recommend outpatient follow-up with cardio 2/3 @ 2:30 Dr. Mario Alberto Alvarez [facility] cardiology will continue to follow. Case discussed with attending, Dr. Contreras Plan was communicated to primary team /and the [facility] 3 team IMPROVE SCORE: . Stepdown / ICU / CCU Stay: 1-->Stepdown / ICU / CCU stay Age > 60 yrs: 1--> Age > 60 years IMPROVE SCORE: 2 DVT PPX: Heparin drip CODE STATUS:full code HCP/Decision maker: Patient Telemetry:Yes This note was prepared using voice recognition software and direct typing. Please excuse inadvertent tank wagon driver or typing errors, or uncorrected word substitutions. Although every attempt has beenmade by the provider to proofread this document, occasional misspellings and typographical errors may still be present DVT PROPHYLAXIS Risk Assessment Scores and Dates: VTE Time Out IMPROVE SCORE: 2 (10/18/2024 10:24 AM) Interpretation - High Risk Chemical Prophylaxis heparin (porcine) IV infusion 25,000 units in 500 mL 0.45% NaCl (premix) Intravenous Continuous heparin (porcine) 1000 unit/mL injection 2,100 Units Intravenous Every 6 hours PRN Mechanical Prophylaxis SCDs are ordered - Bilateral (Knee High) Patient declined SCD use, Please review Review of system Review of Systems Subjective Denies any chest pain, pleuritic chest pain or palpitation orthopnea Provided focused cardiology update to patient all questions and concerns were addressed Objective Telemetry Reviewed: Noted to be sinus rhythm with heart rate 74 Had 1 episode of sinus tachycardia earlier in the day likely thought to be secondary to hypokalemiaelectrolyte abnormality Last Vitals Pulse:63,Resp:16,BP:(!) 143/65,SpO2:96 %,Weight:66.3 kg (146 lb 2.6 oz) Temp Last 24 hrs: Temp Min: 97.1 ??F (36.2 ??C) Max: 98.6 ??F (37 ??C) Intake/Output Summary (Last 24 hours) at 10/27/2024 0752 Last data filed at 10/27/2024 0600 Gross per 24 hour Intake 60 ml Output 450 ml Net -390 ml Physical Exam GENERAL: The patient appears laying in bed comfortably, in no acute cardio- pulmonary distress. Patient is afebrile. AAOx3 GENERAL: No acute distress. HEENT: Anicteric. No pallor. Moist oral membranes. NECK: Supple. No carotid bruits. JVP normal. CHEST: Nontender. Clear to auscultation bilaterally. CARDIAC: Regular rate and rhythm. Nondisplaced PMI. ABDOMEN: Soft. Nontender. Normal bowel sounds. EXTREMITIES: Warm. Well-perfused. No edema. VASCULAR: + distal pulses SKIN: Warm and dry. No rashes. NEUROLOGIC: Alert. Grossly nonfocal. Imaging Studies CXR Report reviewed Echocardiogram Report reviewed Angiogram Report reviewed Imaging Studies All appropriate imaging studies within the past 24 hours reviewed (actual images) Results for orders placed during the hospital encounter of 10/18/24 Echocardiogram (TTE) Comprehensive (Contrast PRN) Interpretation Summary The left ventricle is severely dilated. There is eccentric hypertrophy. Left ventricular systolic function is severely decreased. The quantitative EF by 2D Poole biplane is 28%. The anterior and anteroseptal garcia are akinetic. The apex is dyskinetic. There is evidence of diastolic dysfunction, with elevated left atrial filling pressure. The left atrial cavity is severely dilated. The right ventricle is normal in size. Right ventricular systolic function is normal. The estimatedright ventricular systolic pressure is 52 mmHg. There is moderate functional mitral regurgitation. There is mild tricuspid regurgitation. There is a large left pleural effusion. There is no previous study for comparison in our system. Dr. Pushpa Gallegos was notified by [place] text at 12:36 PM. Imaging Studies XR Chest 1 view-Portable Result Date: 10/19/2024 EXAMINATION: XR CHEST CLINICAL INFORMATION: hypoxic sob eval for pulm edema COMPARISON: Chest radiograph 10/18/2024 at 5:27 AM TECHNIQUE: Frontal views of the chest were obtained. FINDINGS: Lungs are slightly hypoexpanded. Interval worsening of patchy bilateral opacities with central and basilar predominance. Trace bilateral pleural effusions. No pneumothorax. The cardiomediastinal silhouette is unchanged from prior. No acute osseous abnormality. 1. Interval worsening of now moderate pulmonary edema. Superimposed infectious/inflammatory processcannot be entirely excluded. 2. Trace bilateral pleural effusions unchanged. Interpreted by: Mitchell Ascencio DO Technical Operations Vice President I personally reviewed the images and the resident's preliminary report and AGREE with the report as it is now presented (RADPAL1). XR Chest 1 view-Portable Result Date: 10/19/2024 EXAMINATION: XR CHEST CLINICAL INFORMATION: Post thoracentesis. COMPARISON: XR Chest 10/18/2024 TECHNIQUE: Frontal views of the chest was obtained. FINDINGS: Heart is mildly enlarged. Diffuse pulmonary edema is slightly improved compared to the prior exam. Left pleural effusion is improved. Improved pulmonary edema and left pleural effusion. US Guided Bedside Thoracentesis-Bilateral Result Date: 10/19/2024 PROCEDURE: Ultrasound-guided thoracentesis INDICATION: Bilateral pleural effusion. SPECIMEN: Specimen collected as requested. Sample left with bedside RN. ACCESS: 6 [place] Plch-V-[id number] closed needle/catheter system REQUESTING PRACTITIONER: Cheryl Blue MD CLINICIAN(S): CHELLY Gaitan CONSENT: Informed consent was obtained from the patient prior to the procedure. During this process, the procedure and potential alternatives were explained along with the intended outcome and benefits.The risks of the procedure, including the possibility of an unsuccessful procedure as well as the risk of not doing the procedure were discussed. the patient was given the opportunity to ask any quest ions regarding the procedure and appeared competent to make medical decisions. A signed consent form which documents this discussion was placed in the medical record. A timeout procedure was performed. HISTORY: Neymar Wilder is a 79 y.o. old male with a suspected bilateral pleural effusion. The patient was referred for an ultrasound-guided thoracentesis. MEDICATIONS: 10ml 1% lidocaine. TECHNIQUE/FINDINGS: Appropriate pre-procedure medical history and imaging studies were reviewed. The ultrasound machine was brought to the patients bedside. Ultrasound images of the right thorax were obtained to localize a moderate pleural effusion. Images were permanently saved to the record. An area of the patient's back was prepped and draped in the standard sterile fashion. 10 mL of 1% lidocaine was used to obtain local anesthesia of the skin and deeper tissues. A standard small bore needle was introduced to sample fluid and demonstrated a safe access route. There was no evidence of traversingadjacent organs or vascular structures. A 6 [place] Mnut-R-Tvbhdmag closed needle/catheter system was utilized for access. 850 mL of clear devorah fluid was aspirated before drainage ceased. The catheter was removed and a sterile dressing applied. Ultrasound images of the left thorax were obtained to localize a moderate pleural effusion. Images were permanently saved to the record. An area of the patient's back was prepped and draped in the standard sterile fashion. 10 mL of 1% lidocaine was used to obtain local anesthesia of the skin and deeper tissues. A standard small bore needle was introduced to sample fluid and demonstrated a safe access route. There was no evidence of traversing adjacent organs or vascular structures. A 6 [place] Cgkn-P-Eijfkqje closed needle/catheter system was utilized for access. 550 mL of clear devorah fluid was aspirated before drainage ceased. The catheter was removed and a sterile dressing applied. The patient tolerated the procedure well without evidence of complications. Successful bilateral ultrasound-guided diagnostic and therapeutic thoracentesis yielding 850 mL of clear devorah fluid from the right and 550 mL of clear devorah fluid from the left. This procedure was performed and dictated by CHELLY Gaitan Echocardiogram (TTE) Comprehensive (Contrast PRN) Result Date: 10/18/2024 The left ventricle is severely dilated. There is eccentric hypertrophy. Left ventricular systolic function is severely decreased. The quantitative EF by 2D Poole biplane is 28%. The anterior and anteroseptal garcia are akinetic. The apex is dyskinetic. There is evidence of diastolic dysfunction, with elevated left atrial filling pressure. The left atrial cavity is severely dilated. The right ventricle is normal in size. Right ventricular systolic function is normal. The estimated right ventricular systolic pressure is 52 mmHg. There is moderate functional mitral regurgitation. There is mild tricuspid regurgitation. There is a large left pleural effusion. There is no previous study for tal rison in our system. Dr. Pushpa Gallegos was notified by [place] text at 12:36 PM. XR Chest 1 view-Portable Result Date: 10/18/2024 EXAMINATION: XR CHEST CLINICAL INFORMATION: SOB COMPARISON: None TECHNIQUE: Frontal view of the chest FINDINGS: The lungs are well-expanded. Central vascular and coarse interstitial prominence. Hazy right basilar and dense retrocardiac opacities. Small left and suspected small right layering pleural effusions. Thickening of the minor fissure. Gabriele B-lines. No pneumothorax. The cardiomediastinalsilhouette is similar to prior. No acute osseous abnormalities. 1. Findings as above most consistent with pulmonary edema and left greater than right small bilateral pleural effusions. Please note, an underlying infectious/inflammatory process cannot be excluded.2. Hazy right basilar and dense retrocardiac opacities may represent layering effusion and/or atelectasis, respectively. Interpreted by: Prem Coffman MD Technical Operations Vice President I personally reviewed the images and the resident's preliminary report and AGREE with the report as it is now presented (RADPAL1). Recent Results (from the past 8760 hour(s)) ECG 12 lead (STAT) Collection Time: 10/27/24 7:41 AM Result Value Status Ventricular rate 60 Preliminary Atrial rate 60 Preliminary P-R interval 150 Preliminary QRS duration 84 Preliminary Q-T interval 488 Preliminary QTC calculation (Bazett) 488 Preliminary P axis 45 Preliminary R axis 13 Preliminary T axis 199 Preliminary Narrative Normal sinus rhythm Septal infarct , age undetermined ST & T wave abnormality, consider anterolateral ischemia Abnormal ECG When compared with ECG of 25-Oct-2024 10:44, Questionable change in QRS axis T wave inversion more evident in Anterior leads @[email or web address]@ Medications Medications Scheduled Medication Ordered Dose/Rate, Route, Frequency Last Action aspirin chewable tablet 81 mg 81 mg, PO, Daily Given, 81 mg at 10/26 940 atorvastatin (LIPITOR) tablet 80 mg 80 mg, PO, Daily Given, 80 mg at 10/26 940 calcitRIOL (ROCALTROL) capsule 0.5 mcg 0.5 mcg, PO, Daily Given, 0.5 mcg at 10/26 939 calcium carbonate (TUMS) chewable tablet 500 mg 500 mg, PO, BID Given, 500 mg at 10/26 2032 chlorhexidine (PERIDEX) 0.12 % oral solution 15 mL 15 mL, MT, BID Given, 15 mL at 10/26 2032 darbepoetin kelley (ARANESP) injection 60 mcg 60 mcg, SC, Weekly Given, 60 mcg at 10/23 143 insulin glargine (LANtus/SEMGLEE) 100 units/mL injection 16 Units 16 Units, SC, Daily Ordered insulin lispro (HumaLOG/ADMELOG) 100 units/mL injection 1-4 Units 1-4 Units, SC, NIGHTLY & 2AM Ordered insulin lispro (HumaLOG/ADMELOG) 100 units/mL injection 1-6 Units 1-6 Units, SC, TID with meals Given, 1 Units at 10/24 1133 insulin lispro (HumaLOG/ADMELOG) 100 units/mL injection 1-8 Units 1-8 Units, SC, TID with meals Given, 6 Units at 10/26 182 levothyroxine (SYNTHROID, LEVOTHROID) tablet 25 mcg 25 mcg, PO, Daily 6AM Given, 25 mcg at 10/27 0535 linagliptin (TRADJENTA) tablet 5 mg 5 mg, PO, Daily Given, 5 mg at 10/26 104 metoPROLOL SUCCINATE (TOPROL-XL) 24 hr tablet 75 mg 75 mg, PO, Daily Given, 75 mg at 10/26 09 senna-docusate (SENNA-S) 8.6-50 MG tablet 2 tablet 2 tablet, PO, Nightly Given, 2 tablet at 10/26 2032 sodium citrate-citric acid (BICITRA) 500-334 mg/5 mL solution 30 mL 30 mL, PO, BID PC B&D Given, 30 mL at 10/26 1820 Continuous Medication Ordered Dose/Rate, Route, Frequency Last Action dextrose 5 % (D5W) infusion 25 mL/hr, IV, Continuous New Bag, 25 mL/hr at 10/27 0042 heparin (porcine) IV infusion 25,000 units in 500 mL 0.45% NaCl (premix) 12 Units/kg/hr, IV, Continuous New Bag, 15 Units/kg/hr at 10/26 1047 PRN Medication Ordered Dose/Rate, Route, Frequency Last Action bisacodyl (DULCOLAX) suppository 10 mg 10 mg, RE, Daily PRN Ordered dextrose 50 % solution 12.5 g (Or Linked Group #1) 12.5 g, IV, Q15 Min PRN Given, 12.5 g at 10/27 010 dextrose 50 % solution 25 g (Or Linked Group #1) 25 g, IV, Q15 Min PRN See Alternative, 10/27 010 glucagon (GLUCAGEN) injection 1 mg (Or Linked Group #1) 1 mg, IM, Daily PRN See Alternative, 10/27 105 glucose (GLUTOSE 15) 40 % oral gel 37.5 g (Or Linked Group #1) 1 Tube, PO, Q15 Min PRN See Alternative, 10/27 010 glucose (GLUTOSE 15) 40 % oral gel 75 g (Or Linked Group #1) 2 Tube, PO, Q15 Min PRN See Alternative, 10/27 010 heparin (porcine) 1000 unit/mL injection 2,100 Units 30 Units/kg, IV, Q6H PRN Ordered lactulose (ENULOSE) 10 gm/15 mL solution 20 g 30 mL, PO, Q4H PRN Ordered naloxone (NARCAN) 0.4 mg/mL injection 0.4 mg 0.4 mg, IV, Q5 Min PRN Ordered Relevant data reviewed Results from last 7 days Lab Units 10/27/24 0402 10/27/24 0120 10/27/24 0029 10/26/24 0848 10/26/24 0618 10/25/24 0920 10/25/24 0827 10/24/24 0839 10/24/24 0711 10/23/24 1259 10/23/24 1031 SODIUM mmol/L -- -- -- -- 145 -- 141 -- 143 < > -- POTASSIUM mmol/L -- -- -- -- 4.2 -- 4.6 -- 4.9 < > -- CHLORIDE mmol/L -- -- -- -- 107 -- 104 -- 105 < > -- CO2 mmol/L -- -- -- -- 23 -- 21* -- 19* < > -- BUN mg/dL -- -- -- -- 61* -- 64* -- 68* < > -- CREATININE mg/dL -- -- -- -- 4.0* -- 3.9* -- 4.0* < > -- CALCIUM mg/dL -- -- -- -- 7.9* -- 7.8* -- 7.8* < > 7.4* GLUCOSE mg/dL -- -- -- -- 79 -- 123* -- 149* < > -- GLUCOSE, POC mg/dL 90 155* 74 < > -- < > -- < > -- < > -- EGFR -- -- -- -- 14* -- 15* -- 14* < > -- ALBUMIN g/dL -- -- -- -- -- -- -- -- -- -- 3.5 < > = values in this interval not displayed. Lab Results Component Value Date MG 1.9 10/26/2024 Results from last 7 days Lab Units 10/26/24 0618 10/25/24 0827 10/24/24 0711 WHITE BLOOD CELL COUNT Thou/uL 9.7 12.5* 12.4* HEMOGLOBIN g/dL 8.6* 9.2* 9.3* HEMATOCRIT % 27.9* 29.9* 30.1* PLATELET COUNT Thou/uL 328 361 360 Lab Results Component Value Date HSTNT 2,071 () 10/26/2024 HSTNT 2,468 () 10/25/2024 HSTNT 2,413 () 10/25/2024 Lab Results Component Value Date PROBNP >70,000 (H) 10/18/2024 Lab Results Component Value Date HGBA1C 8.7 (H) 10/19/2024 Lab Results Component Value Date HGBA1C 8.7 (H) 10/19/2024 .. Lab Results Component Value Date CHOL 110 10/23/2024 Lab Results Component Value Date HDL 30 (L) 10/23/2024 No results found for: LDLCALC Lab Results Component Value Date TRIG 141 10/23/2024 No results found for: CHOLHDL .. Lab Results Component Value Date CKTOTAL 76 10/25/2024 Sign Bryant Gracia PA-C, 10/27/2024 7:52 AM * Bryant Gracia PA-C - 10/26/2024 5:17 PM EST Images from the original note were not included. 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 Presented on 10/18/2024 for URI sx (resolved)--> found to be in DKA.Initially in ICU, on insulin drip; hospital course was complicated NSTEMI for which he was started on heparin drip, also found to have new HFrEF, EF 28%. Pt tested COVID positive but asymptomatic, notherapies were pursued. Furthermore patient was also noted to have worsening ALISA however creatinineincreased to 5.2 was noted to have anion gap metabolic acidosis from DKA nephrology was following. Plan to do ischemic workup this admission. Assessment Acute hypoxic respiratory failure in the setting of COVID infection pulmonary congestion NSTEMI Acute on chronic decompensated HFrEF with EF of 28% Moderate functional MR Pulmonary edema with effusion status postthoracentesis ( 10/19/24) Type 2 diabetes diabetic ketoacidosis insulin-dependent ALISA on CKD stage V creatinine baseline 4.8-5.2 Anion gap metabolic acidosis secondary to DKA and CKD COVID-positive Hypothyroidism Patient noted to have NSVT TTE 10/18/24 LV severely dilated. Eccentric hypertrophy. Left LV systolic function severely decreased. The quantitative EF by 2D Poole biplane is 28% with anterior and anteroseptal wall are akinetic.. The apex is dyskinetic. There is evidence of diastolic dysfunction with elevated left atrial filling pressure. The left atrial cavity severely dilated. RV function is normal. RV systolic function isnormal. ERVSP 52mmHg. Moderate functional MR. There is mild TR. there is a large left pleural effusion Plan Acute decompensated HFrEF (LVEF 28%), NYHA class III, AHA stage C Moderate functional MR Bilateral pleural effusions, s/p bilateral thoracentesis 10/18 Acute on chronic decompensated HFpEF likely secondary to valvular heart disease Acute on chronic HFrEF, LVEF28% NYHA ClassII/III, Stage C Clinically appears mildly trace edema do not appreciate JVD monitor seem euvolemic TTE --LV severely dilated. Severely decreased LVEF RSVF normal, RV systolic pressure 52 moderate functional MR. 24 hr Net- 730mL, Wt 65.4Kg ( 144 IB ) Since admission net- 5415.2mL, Wt 68.9kg ( 152IB ) Diuresis chest x-ray concern of fluid overload, bilateral opacities noted with pleural effusion patient warm and wet however patient noted to have worsening ALISA defer to nephrology if they are inagreement with IV Lasix can spot place consider 40 mg IV daily as needed recommend goal diuresis 2 to 3 L daily Defer Lasix to nephrology given worsening ALISA. ??GDMT: BB: continue Toprol XL 75 mg daily MRA: On hold Aldactone 25 mg p.o. given worsening ALISA SGLT2 inhibitor :On hold until post cath YULY/ARB/ARNI : Given worsening ALISA on hold until post and given worsening ALISA Daily weights/ Daily renal panel Recommend optimizing electrolytes keep K >or =4.0 and Mg >or=2.0 Strict I's and O's, daily weight. Aggressive risk factor modification and lifestyle changes are encouraged, including optimization ofblood pressure and blood glucose levels, regular aerobic activity, weight loss, heart healthy diet and smoking cessation NSTEMI, NORRIS 34 NSTEMI seem to be multifactor type 1 vs type 2 NSVT Currently patient chest pain-free HsT: 1,830 -> 4,276 currently downtrending to 2413 EKG demonstrates NSR with T wave inversion in V4 through V5 through V6 TTE from 2021 demonstrated LVEF of 55-60%. Given new finding of reduced LVEF 28% on echocardiogram,recommend ischemic workup once metabolic derangements are resolved, consult IC and plan for cath tomorrow spoke with nephrology who is in agreement appreciate input Lázaro Score with 100cc of contrast: 57.3% risk of any post-PCI RADHA; 12.6% post- PCI requiring HD. Troponin elevation can be demand ischemia due to viral pneumonia / Covid and DKA. Cannot rule out IA, COVID myocarditis, or stress induced cardiomyopathy at this point. NSTEMI likely type II demand however unable to rule out type I hence awaiting cardiac Medication regimen Consulted IC appreciate input Patient will remain n.p.o. at midnight for hopefully for C and [facility] spoke with nephrology Dr. Perez who is in agreement to have the patient proceed with cath in a.m. given no availability today Continue heparin gtt per ACS protocol Continue ASA 81 mg daily Continue atorvastatin 80 mg daily Continue Toprol-XL 75 mg p.o. daily Continuous telemetry monitoring Patient will need a private room post cath High risk for SENIOR SECURITY ENGINEER remains unchanged ALISA on CKD Creatinine peak of 5.2, down to 4.0 Today creatinine 3.9 Nephrology following appreciate recommendations No indication for HD at this time Daily BMPs Appreciate input from nephrology to proceed with cath Appreciate input from IC team. Using Lázaro Score Risk of any post PCI RADHA 57.3%; risk of post PCI RADHA requiring dialysis 12.6% discussed the risk with patient patient in agreement to proceed with cardiac cath. For details refer to nephrology. HTN HLD Continue with atorvastatin 80 mg p.o.daily Continue with Toprol-XL 75 mg p.o. daily Recommend outpatient follow-up with cardio 2/3 @ 2:30 Dr. Mario Alberto Alvarez [facility] cardiology will continue to follow. Case discussed with attending, Dr. Contreras Plan was communicated to primary team dr Neymar Mcfarland /and the [facility] 3 team IMPROVE SCORE: Stepdown / ICU / CCU Stay: 1-->Stepdown / ICU / CCU stay Age > 60 yrs: 1--> Age > 60 years IMPROVE SCORE: 2 DVT PPX: SC Heparin CODE STATUS:full code HCP/Decision maker: Patient Telemetry:Yes This note was prepared using voice recognition software and direct typing. Please excuse inadvertent tank wagon driver or typing errors, or uncorrected word substitutions. Although every attempt has beenmade by the provider to proofread this document, occasional misspellings and typographical errors may still be present DVT PROPHYLAXIS Risk Assessment Scores and Dates: VTE Time Out IMPROVE SCORE: 2 (10/18/2024 10:24 AM) Interpretation - High Risk Chemical Prophylaxis heparin (porcine) IV infusion 25,000 units in 500 mL 0.45% NaCl (premix) Intravenous Continuous heparin (porcine) 1000 unit/mL injection 2,100 Units Intravenous Every 6 hours PRN Mechanical Prophylaxis SCDs are ordered - Bilateral (Knee High) Patient declined SCD use, Please review Subjective Patient denies any chest pain, pleuritic chest pain or palpitation orthopnea Provided focused cardiology update to patient all questions and concerns were addressed Objective Telemetry Reviewed: Normal sinus rhythm heart rate of 74 noted to have PVCs Last Vitals Pulse:69,Resp:16,BP:(!) 174/71 (rn notified (Sarah)),SpO2:98 %,Weight:65.4 kg (144 lb 2.9 oz) Temp Last 24 hrs: Temp Min: 96.8 ??F (36 ??C) Max: 98 ??F (36.7 ??C) Intake/Output Summary (Last 24 hours) at 10/26/2024 1718 Last data filed at 10/26/2024 0900 Gross per 24 hour Intake 20 ml Output 750 ml Net -730 ml Physical Exam GENERAL: The patient appears laying in bed comfortably, in no acute cardio- pulmonary distress. Patient is afebrile. AAOx3 GENERAL: No acute distress. HEENT: Anicteric. No pallor. Moist oral membranes. NECK: Supple. No carotid bruits. JVP normal. CHEST: Nontender. Clear to auscultation bilaterally. CARDIAC: Regular rate and rhythm. Nondisplaced PMI. ABDOMEN: Soft. Nontender. Normal bowel sounds. EXTREMITIES: Warm. Well-perfused. No edema. VASCULAR: + distal pulses SKIN: Warm and dry. No rashes. NEUROLOGIC: Alert. Grossly nonfocal. Physical Exam Imaging Studies CXR Report reviewed Echocardiogram Report reviewed Angiogram Report reviewed Imaging Studies All appropriate imaging studies within the past 24 hours reviewed (actual images) Results for orders placed during the hospital encounter of 10/18/24 Echocardiogram (TTE) Comprehensive (Contrast PRN) Interpretation Summary The left ventricle is severely dilated. There is eccentric hypertrophy. Left ventricular systolic function is severely decreased. The quantitative EF by 2D Poole biplane is 28%. The anterior and anteroseptal garcia are akinetic. The apex is dyskinetic. There is evidence of diastolic dysfunction, with elevated left atrial filling pressure. The left atrial cavity is severely dilated. The right ventricle is normal in size. Right ventricular systolic function is normal. The estimatedright ventricular systolic pressure is 52 mmHg. There is moderate functional mitral regurgitation. There is mild tricuspid regurgitation. There is a large left pleural effusion. There is no previous study for comparison in our system. Dr. Pushpa Gallegos was notified by [place] text at 12:36 PM. Imaging Studies XR Chest 1 view-Portable Result Date: 10/19/2024 EXAMINATION: XR CHEST CLINICAL INFORMATION: hypoxic sob eval for pulm edema COMPARISON: Chest radiograph 10/18/2024 at 5:27 AM TECHNIQUE: Frontal views of the chest were obtained. FINDINGS: Lungs are slightly hypoexpanded. Interval worsening of patchy bilateral opacities with central and basilar predominance. Trace bilateral pleural effusions. No pneumothorax. The cardiomediastinal silhouette is unchanged from prior. No acute osseous abnormality. 1. Interval worsening of now moderate pulmonary edema. Superimposed infectious/inflammatory processcannot be entirely excluded. 2. Trace bilateral pleural effusions unchanged. Interpreted by: Mitchell Ascencio DO Technical Operations Vice President I personally reviewed the images and the resident's preliminary report and AGREE with the report as it is now presented ([email or web address]). XR Chest 1 view-Portable Result Date: 10/19/2024 EXAMINATION: XR CHEST CLINICAL INFORMATION: Post thoracentesis. COMPARISON: XR Chest 10/18/2024 TECHNIQUE: Frontal views of the chest was obtained. FINDINGS: Heart is mildly enlarged. Diffuse pulmonary edema is slightly improved compared to the prior exam. Left pleural effusion is improved. Improved pulmonary edema and left pleural effusion. US Guided Bedside Thoracentesis-Bilateral Result Date: 10/19/2024 PROCEDURE: Ultrasound-guided thoracentesis INDICATION: Bilateral pleural effusion. SPECIMEN: Specimen collected as requested. Sample left with bedside RN. ACCESS: 6 [place] Hnek-E-Pyfrtqcg closed needle/catheter system REQUESTING PRACTITIONER: Cheryl Blue MD CLINICIAN(S): CHELLY Gaitan CONSENT: Informed consent was obtained from the patient prior to the procedure. During this process, the procedure and potential alternatives were explained along with the intended outcome and benefits.The risks of the procedure, including the possibility of an unsuccessful procedure as well as the risk of not doing the procedure were discussed. the patient was given the opportunity to ask any quest ions regarding the procedure and appeared competent to make medical decisions. A signed consent form which documents this discussion was placed in the medical record. A timeout procedure was performed. HISTORY: Neymar Wilder is a 79 y.o. old male with a suspected bilateral pleural effusion. The patient was referred for an ultrasound-guided thoracentesis. MEDICATIONS: 10ml 1% lidocaine. TECHNIQUE/FINDINGS: Appropriate pre-procedure medical history and imaging studies were reviewed. The ultrasound machine was brought to the patients bedside. Ultrasound images of the right thorax were obtained to localize a moderate pleural effusion. Images were permanently saved to the record. An area of the patient's back was prepped and draped in the standard sterile fashion. 10 mL of 1% lidocaine was used to obtain local anesthesia of the skin and deeper tissues. A standard small bore needle was introduced to sample fluid and demonstrated a safe access route. There was no evidence of traversingadjacent organs or vascular structures. A 6 [place] Ucmu-B-Vmlcxqpn closed needle/catheter system was utilized for access. 850 mL of clear devorah fluid was aspirated before drainage ceased. The catheter was removed and a sterile dressing applied. Ultrasound images of the left thorax were obtained to localize a moderate pleural effusion. Images were permanently saved to the record. An area of the patient's back was prepped and draped in the standard sterile fashion. 10 mL of 1% lidocaine was used to obtain local anesthesia of the skin and deeper tissues. A standard small bore needle was introduced to sample fluid and demonstrated a safe access route. There was no evidence of traversing adjacent organs or vascular structures. A 6 [place] Qiso-W-Klmvspwr closed needle/catheter system was utilized for access. 550 mL of clear devorah fluid was aspirated before drainage ceased. The catheter was removed and a sterile dressing applied. The patient tolerated the procedure well without evidence of complications. Successful bilateral ultrasound-guided diagnostic and therapeutic thoracentesis yielding 850 mL of clear devorah fluid from the right and 550 mL of clear devorah fluid from the left. This procedure was performed and dictated by CHELLY Gaitan Echocardiogram (TTE) Comprehensive (Contrast PRN) Result Date: 10/18/2024 The left ventricle is severely dilated. There is eccentric hypertrophy. Left ventricular systolic function is severely decreased. The quantitative EF by 2D Poole biplane is 28%. The anterior and anteroseptal garcia are akinetic. The apex is dyskinetic. There is evidence of diastolic dysfunction, with elevated left atrial filling pressure. The left atrial cavity is severely dilated. The right ventricle is normal in size. Right ventricular systolic function is normal. The estimated right ventricular systolic pressure is 52 mmHg. There is moderate functional mitral regurgitation. There is mild tricuspid regurgitation. There is a large left pleural effusion. There is no previous study for tal rison in our system. Dr. Pushpa Gallegos was notified by [place] text at 12:36 PM. XR Chest 1 view-Portable Result Date: 10/18/2024 EXAMINATION: XR CHEST CLINICAL INFORMATION: SOB COMPARISON: None TECHNIQUE: Frontal view of the chest FINDINGS: The lungs are well-expanded. Central vascular and coarse interstitial prominence. Hazy right basilar and dense retrocardiac opacities. Small left and suspected small right layering pleural effusions. Thickening of the minor fissure. Gabriele B-lines. No pneumothorax. The cardiomediastinalsilhouette is similar to prior. No acute osseous abnormalities. 1. Findings as above most consistent with pulmonary edema and left greater than right small bilateral pleural effusions. Please note, an underlying infectious/inflammatory process cannot be excluded.2. Hazy right basilar and dense retrocardiac opacities may represent layering effusion and/or atelectasis, respectively. Interpreted by: Prem Coffman MD Technical Operations Vice President I personally reviewed the images and the resident's preliminary report and AGREE with the report as it is now presented ([email or web address]). Recent Results (from the past 8760 hour(s)) ECG 12 lead Collection Time: 10/25/24 10:44 AM Result Value Status Ventricular rate 76 Final Atrial rate 76 Final P-R interval 152 Final QRS duration 82 Final Q-T interval 450 Final QTC calculation (Bazett) 506 Final P axis 67 Final R axis 69 Final T axis 237 Final Narrative Normal sinus rhythm ST & T wave abnormality, consider lateral ischemia Prolonged QT Abnormal ECG When compared with ECG of 23-Oct-2024 17:43, Nonspecific T wave abnormality, worse in Inferior leads T wave inversion less evident in Lateral leads Confirmed by DO Ladd Kyla ([id number]) on 10/25/2024 8:09:06 PM Medications Medications Scheduled Medication Ordered Dose/Rate, Route, Frequency Last Action aspirin chewable tablet 81 mg 81 mg, PO, Daily Given, 81 mg at 10/26 940 atorvastatin (LIPITOR) tablet 80 mg 80 mg, PO, Daily Given, 80 mg at 10/26 940 calcitRIOL (ROCALTROL) capsule 0.5 mcg 0.5 mcg, PO, Daily Given, 0.5 mcg at 10/26 939 calcium carbonate (TUMS) chewable tablet 500 mg 500 mg, PO, BID Given, 500 mg at 10/26 940 chlorhexidine (PERIDEX) 0.12 % oral solution 15 mL 15 mL, MT, BID Given, 15 mL at 10/26 939 darbepoetin kelley (ARANESP) injection 60 mcg 60 mcg, SC, Weekly Given, 60 mcg at 10/23 143 insulin glargine (LANtus/SEMGLEE) 100 units/mL injection 16 Units 16 Units, SC, Daily Ordered insulin lispro (HumaLOG/ADMELOG) 100 units/mL injection 1-4 Units 1-4 Units, SC, NIGHTLY & 2AM Ordered insulin lispro (HumaLOG/ADMELOG) 100 units/mL injection 1-6 Units 1-6 Units, SC, TID with meals Given, 1 Units at 10/24 1133 insulin lispro (HumaLOG/ADMELOG) 100 units/mL injection 1-8 Units 1-8 Units, SC, TID with meals Given, 5 Units at 10/25 181 levothyroxine (SYNTHROID, LEVOTHROID) tablet 25 mcg 25 mcg, PO, Daily 6AM Given, 25 mcg at 10/26 0528 linagliptin (TRADJENTA) tablet 5 mg 5 mg, PO, Daily Given, 5 mg at 10/26 1041 metoPROLOL SUCCINATE (TOPROL-XL) 24 hr tablet 75 mg 75 mg, PO, Daily Given, 75 mg at 10/26 940 senna-docusate (SENNA-S) 8.6-50 MG tablet 2 tablet 2 tablet, PO, Nightly Given, 2 tablet at 10/19 2007 sodium citrate-citric acid (BICITRA) 500-334 mg/5 mL solution 30 mL 30 mL, PO, BID PC B&D Given, 30 mL at 10/26 0940 Continuous Medication Ordered Dose/Rate, Route, Frequency Last Action heparin (porcine) IV infusion 25,000 units in 500 mL 0.45% NaCl (premix) 12 Units/kg/hr, IV, Continuous New Bag, 15 Units/kg/hr at 10/26 1047 PRN Medication Ordered Dose/Rate, Route, Frequency Last Action bisacodyl (DULCOLAX) suppository 10 mg 10 mg, RE, Daily PRN Ordered dextrose 50 % solution 12.5 g (Or Linked Group #1) 12.5 g, IV, Q15 Min PRN Ordered dextrose 50 % solution 25 g (Or Linked Group #1) 25 g, IV, Q15 Min PRN Ordered glucagon (GLUCAGEN) injection 1 mg (Or Linked Group #1) 1 mg, IM, Daily PRN Ordered glucose (GLUTOSE 15) 40 % oral gel 37.5 g (Or Linked Group #1) 1 Tube, PO, Q15 Min PRN Ordered glucose (GLUTOSE 15) 40 % oral gel 75 g (Or Linked Group #1) 2 Tube, PO, Q15 Min PRN Ordered heparin (porcine) 1000 unit/mL injection 2,100 Units 30 Units/kg, IV, Q6H PRN Ordered lactulose (ENULOSE) 10 gm/15 mL solution 20 g 30 mL, PO, Q4H PRN Ordered naloxone (NARCAN) 0.4 mg/mL injection 0.4 mg 0.4 mg, IV, Q5 Min PRN Ordered Relevant data reviewed Results from last 7 days Lab Units 10/26/24 1158 10/26/24 0848 10/26/24 0618 10/25/24 0920 10/25/24 0827 10/24/24 0839 10/24/24 0711 10/23/24 1259 10/23/24 1031 SODIUM mmol/L -- -- 145 -- 141 -- 143 < > -- POTASSIUM mmol/L -- -- 4.2 -- 4.6 -- 4.9 < > -- CHLORIDE mmol/L -- -- 107 -- 104 -- 105 < > -- CO2 mmol/L -- -- 23 -- 21* -- 19* < > -- BUN mg/dL -- -- 61* -- 64* -- 68* < > -- CREATININE mg/dL -- -- 4.0* -- 3.9* -- 4.0* < > -- CALCIUM mg/dL -- -- 7.9* -- 7.8* -- 7.8* < > 7.4* GLUCOSE mg/dL -- -- 79 -- 123* -- 149* < > -- GLUCOSE, POC mg/dL 96 90 -- < > -- < > -- < > -- EGFR -- -- 14* -- 15* -- 14* < > -- ALBUMIN g/dL -- -- -- -- -- -- -- -- 3.5 < > = values in this interval not displayed. Lab Results Component Value Date MG 1.9 10/26/2024 Results from last 7 days Lab Units 10/26/24 0618 10/25/24 0827 10/24/24 0711 10/21/24 0309 10/19/24 2359 WHITE BLOOD CELL COUNT Thou/uL 9.7 12.5* 12.4* < > 11.5* HEMOGLOBIN g/dL 8.6* 9.2* 9.3* < > 8.9* HEMATOCRIT % 27.9* 29.9* 30.1* < > 28.6* PLATELET COUNT Thou/uL 328 361 360 < > 271 NEUTROS PCT % -- -- -- -- 80.7 LYMPHS PCT % -- -- -- -- 11.6 MONOS PCT % -- -- -- -- 6.7 EOS PCT % -- -- -- -- 0.2 BASOS PCT % -- -- -- -- 0.2 < > = values in this interval not displayed. Lab Results Component Value Date HSTNT 2,071 () 10/26/2024 HSTNT 2,468 () 10/25/2024 HSTNT 2,413 () 10/25/2024 Lab Results Component Value Date PROBNP >70,000 (H) 10/18/2024 Lab Results Component Value Date HGBA1C 8.7 (H) 10/19/2024 Lab Results Component Value Date HGBA1C 8.7 (H) 10/19/2024 .. Lab Results Component Value Date CHOL 110 10/23/2024 Lab Results Component Value Date HDL 30 (L) 10/23/2024 No results found for: LDLCALC Lab Results Component Value Date TRIG 141 10/23/2024 No results found for: CHOLHDL .. Lab Results Component Value Date CKTOTAL 76 10/25/2024 Sign Bryant Gracia PA-C, 10/26/2024 5:18 PM * Shae Chopra, PT - 10/26/2024 11:10 AM EST Physical Therapy Progress Note Precautions/Restrictions: fall, other (see comments) (skin, isolation: strict) Assessment Summary: Patient continues to demonstrate impairments in strength, balance, and activity tolerance.Patient demonstrates good progress toward goals; able to perform short-distance ambulation. Patientrequired use of RW during this PT session, though trialed ambulation without use of RW. Progress Towards Goals: progress toward functional goals is good Outcome Measures: The Activity Measure for Post-Acute Care (AM-PAC) Basic Mobility Inpatient Short Form (6-clicks) yolette standardized measure used to quantify functional deficits in mobility. The total score of the measure ranges from 6-24. A higher score indicates a higher level of independence with functional mobility. Current [facility] Basic Mobility Score: 20 Rehab Plan of Care PT will continue to follow while patient remains in-house. Patient's continued progress toward PLOFwill be dependent upon frequent mobilization. Nursing staff should focus on ambulating at least 3x/day. The goal of continued PT services is to progress ambulation and continue to trial ambulation without AD use. Patient most limited from mobility progression at this time by limited space within room 2/2 strict isolation precautions. PT will follow up in 2-3 days or as able. If transitioning to home, patient will require home PT, hands-on assistance for safety with ambulation, and RW use. PT Recommendations for Staff: Ambulate with Ax1 and RW PT Frequency during Hospitalization: 2-3 times/wk Plan of Care Reviewed With: patient Objective Data/Intervention Bed Mobility Assessment/Intervention: performed supine <> sit independently Transfers Assessment/Intervention: performed sit <> stand transfers with SBAx1 with supervision, no AD use Gait/Stair Assessment/Intervention: performed ~15 feet of ambulation with SBAx1 with supervision, no AD use; narrow VICENTE with decreased step/stride length and decreased faustino; anticipate that patient's gait speed will improve with use of AD Therapeutic Exercise: BLE seated AROM therex 10x: ankle pumps, LAQs, marching Neuromuscular Re-Education Assessment/Intervention: good sitting balance, fair+ standing balance Activity Tolerance/Endurance Assessment/Intervention: Good for session - on 4L O2 via oxymask Education: importance of continued mobility, rehab plan of care, transition of care planning Subjective Doing well, I'm patient. Flowsheet Data 10/26/24 1110 Physical Therapy Time and Intention PT Follow-Up Visit follow up treatment Mode of Treatment individual therapy;physical therapy Patient Effort good Symptoms Noted During/After Treatment fatigue General Information Patient/Family/Caregiver Comments/Observations Doing well, I'm patient. General Observations of Patient Patient received in supine with HOB elevated, agreeable to PT treatment. Pain Additional Documentation Pain Scale: Numbers Pre/Post-Treatment (Group) Pain Scale: Numbers Pre/Post-Treatment Pre/Posttreatment Pain Comment Patient denies pain Health Promotion Additional Documentation Coping (Group);Plan of Care Review (Group) Coping Trust Relationship/Rapport care explained Observed Emotional State calm;cooperative Verbalized Emotional State acceptance Family/Support Persons patient Involvement in Care participating in care Plan of Care Review Plan of Care Reviewed With patient Safety Safety WDL WDL All Alarms alarm(s) activated and audible Enhanced Safety Measures bed alarm set Progressive Mobility Progressive Mobility Level Achieved Ambulation Ambulation Distance (Feet) 15 [facility] Basic Mobility Turning from your back to your side while in a flat bed without using bedrails? 4 Moving from lying on your back to sitting on the side of a flat bed without using bedrails? 4 Moving to and from a bed to a chair (including wheelchair)? 3 Standing up from a chair using your arms? 3 To walk in a hospital room? 3 Climbing 3-5 steps with a railing? 3 [facility] Basic Mobility Score 20 Therapy Assessment/Plan (PT) Therapy Frequency (PT) 2-3 times/wk PT Recommendations for Staff Ambulate with Ax1 and RW Progress Summary (PT) Progress Toward Functional Goals (PT) progress toward functional goals is good Therapy Plan Review/Discharge Plan (PT) Therapy Plan Review (PT) evaluation/treatment results reviewed;care plan/treatment goals reviewed;risks/benefits reviewed;current/potential barriers reviewed;participants voiced agreement with care plan;participants included;patient Sign: Shae Chopra PT * Garth PerezDO - 10/26/2024 9:57 AM EST Date 10/26/2024 Assessment & Plan 79y/o male PMHx DM, HTN, CKD V (bCR~5 from 05/2023) d/t HTN + DM ([place] in [place]), [facility] with dyspnea (COVID+) and DKA. ?NSTEMI. TTE 10/18/24 - EF 28% - new. Assessment CKD 5 NSTEMI Anemia of CKD Hypocalcemia COVID + Plan Renal function remains significantly abnormal but overall unchanged RADHA risks have been reviewed previously-plan for cardiac cath today Continue Aranesp 60 mcg subcu weekly for anemia Continue calcitriol 0.5 mcg daily and oral calcium 500 mg twice daily for hypocalcemia and secondary hyperparathyroidism. His risk of [employer] ENG[employer] remains unchanged Subjective HPI Vipul remains with FM O2 support Occasional cough He has been OOB without limitation Review of Systems Respiratory: negative Cardiovascular: negative Gastrointestinal: negative Neurological: negative Remainder ROS were negative except as mentioned above in HPI. Objective Medications Medication/MAR Report: Medications Scheduled Medication Ordered Dose/Rate, Route, Frequency Last Action aspirin chewable tablet 81 mg 81 mg, PO, Daily Given, 81 mg at 10/26 940 atorvastatin (LIPITOR) tablet 80 mg 80 mg, PO, Daily Given, 80 mg at 10/26 940 calcitRIOL (ROCALTROL) capsule 0.5 mcg 0.5 mcg, PO, Daily Given, 0.5 mcg at 10/26 939 calcium carbonate (TUMS) chewable tablet 500 mg 500 mg, PO, BID Given, 500 mg at 10/26 940 chlorhexidine (PERIDEX) 0.12 % oral solution 15 mL 15 mL, MT, BID Given, 15 mL at 10/26 939 darbepoetin kelley (ARANESP) injection 60 mcg 60 mcg, SC, Weekly Given, 60 mcg at 10/23 143 insulin glargine (LANtus/SEMGLEE) 100 units/mL injection 18 Units 18 Units, SC, Daily Ordered insulin lispro (HumaLOG/ADMELOG) 100 units/mL injection 1-4 Units 1-4 Units, SC, NIGHTLY & 2AM Ordered insulin lispro (HumaLOG/ADMELOG) 100 units/mL injection 1-6 Units 1-6 Units, SC, TID with meals Given, 1 Units at 10/24 1133 insulin lispro (HumaLOG/ADMELOG) 100 units/mL injection 1-8 Units 1-8 Units, SC, TID with meals Given, 5 Units at 10/25 1810 levothyroxine (SYNTHROID, LEVOTHROID) tablet 25 mcg 25 mcg, PO, Daily 6AM Given, 25 mcg at 10/26 0528 linagliptin (TRADJENTA) tablet 5 mg 5 mg, PO, Daily Ordered metoPROLOL SUCCINATE (TOPROL-XL) 24 hr tablet 75 mg 75 mg, PO, Daily Given, 75 mg at 10/26 940 senna-docusate (SENNA-S) 8.6-50 MG tablet 2 tablet 2 tablet, PO, Nightly Given, 2 tablet at 10/19 2007 sodium citrate-citric acid (BICITRA) 500-334 mg/5 mL solution 30 mL 30 mL, PO, BID PC B&D Given, 30 mL at 10/26 0940 Continuous Medication Ordered Dose/Rate, Route, Frequency Last Action heparin (porcine) IV infusion 25,000 units in 500 mL 0.45% NaCl (premix) 12 Units/kg/hr, IV, Continuous Rate Change - High Risk Medication, 15 Units/kg/hr at 10/25 1806 PRN Medication Ordered Dose/Rate, Route, Frequency Last Action bisacodyl (DULCOLAX) suppository 10 mg 10 mg, RE, Daily PRN Ordered dextrose 50 % solution 12.5 g (Or Linked Group #1) 12.5 g, IV, Q15 Min PRN Ordered dextrose 50 % solution 25 g (Or Linked Group #1) 25 g, IV, Q15 Min PRN Ordered glucagon (GLUCAGEN) injection 1 mg (Or Linked Group #1) 1 mg, IM, Daily PRN Ordered glucose (GLUTOSE 15) 40 % oral gel 37.5 g (Or Linked Group #1) 1 Tube, PO, Q15 Min PRN Ordered glucose (GLUTOSE 15) 40 % oral gel 75 g (Or Linked Group #1) 2 Tube, PO, Q15 Min PRN Ordered heparin (porcine) 1000 unit/mL injection 2,100 Units 30 Units/kg, IV, Q6H PRN Ordered lactulose (ENULOSE) 10 gm/15 mL solution 20 g 30 mL, PO, Q4H PRN Ordered naloxone (NARCAN) 0.4 mg/mL injection 0.4 mg 0.4 mg, IV, Q5 Min PRN Ordered Allergy No Known Allergies Physical Exam Vitals: 10/26/24 0356 10/26/24 0500 10/26/24 0801 10/26/24 0940 BP: 136/63 (!) 142/66 (!) 146/74 BP Location: Right arm Right arm Patient Position: Lying Lying Pulse: 65 68 72 Resp: 18 18 Temp: 97.4 ??F (36.3 ??C) 98 ??F (36.7 ??C) TempSrc: Tympanic Tympanic SpO2: 96% 93% Weight: 144 lb 2.9 oz (65.4 kg) Height: Intake/Output Summary (Last 24 hours) at 10/26/2024 0957 Last data filed at 10/25/2024 1800 Gross per 24 hour Intake -- Output 750 ml Net -750 ml General appearance: Comfortable appearing Lungs: CTA bilaterally anteriorly Heart: RRR, S1, S2 normal, no murmur Abdomen: soft, non-tender, BS normal Extremities: no ulcers, or gangrene Edema: None Skin: Skin color, texture normal Neurologic: Grossly normal, no asterixis Joints: No sign of joint inflammation Relevant data reviewed Notable labs are: Recent Labs 10/24/24 0301 10/24/24 0711 10/25/24 0827 10/26/24 0618 NA 143 143 141 145 K 4.4 4.9 4.6 4.2 CL 107 105 104 107 CO2 18* 19* 21* 23 BUN 67* 68* 64* 61* CREAT 3.8* 4.0* 3.9* 4.0* CALCIUM 7.4* 7.8* 7.8* 7.9* MG 1.8 1.8 2.0 1.9 PHOS 3.8 4.5 3.8 4.2 Recent Labs 10/24/24 0711 10/25/24 0827 10/26/24 0618 WBC 12.4* 12.5* 9.7 HGB 9.3* 9.2* 8.6* HCT 30.1* 29.9* 27.9* PLT 360 361 328 I have reviewed the laboratory data within the past 24 hours Sign: Garth Perez DO 10/26/2024 9:57 AM * Day Casarez APRN - 10/26/2024 9:39 AM EST Endocrinology Progress Note [employer] Endocrinology - Medicine Today's Date: 10/26/2024 Admit Date: 10/18/2024 5:10 AM Consult requested by: Neymar Mcfarland MD Principal Problem: DKA (diabetic ketoacidosis) (HCC) (POA: Yes) Active Problems: NSTEMI (non-ST elevated myocardial infarction) (HCC) (POA: Unknown) COVID (POA: Yes) Heart failure with reduced ejection fraction (HCC) (POA: Unknown) Pulmonary edema with left heart failure (HCC) (POA: Unknown) Resolved Problems: Assessment & Plan Neymar Wilder is a 79 y.o. male with T 2 DM, A1c 8.7% (10/29/2023), CKD 5, HTN, presented to outside hospital with PNA and concerns for NSTEMI, DKA on 10/18, patient was started on insulin drip, DKA resolved and was transitioned off the insulin drip on 10/19. T 2 DM with hyperglycemia BG's variable, significant postprandial BG excursion after dinner. Given creat (4.0) will add Tradjenta in place of home Januvia. Notified by team patient will be going to the [employer]. Currently n.p.o. Addendum: Notified by team, cath cancelled. Hospital Plan Tradjenta 5 mg p.o. daily in a.m. (Hold if NPO, give when diet resumed) basal Insulin: Lantus Insulin 16 units Daily . Meal Carb Scale: Humalog Insulin 1-8 units, 3 times a day with meals. ICR: 1: 9g Meal Correction Scale: Humalog Insulin: 1-6 units, 3 times a day with meals. ISF: 1: 40 > 140 mg/dL Nightly/0200 Correction Humalog Insulin Scale: 1-4 units. ISF: 1: 50 > 200 mg/dL Glucose Monitoring AC/HS & 0200. Notify endocrine team in the daytime or primary team overnight if BG <70 or >350 mg/dL. Hypoglycemia protocol in place. Please reach out to endocrinology team at least one day prior to discharge for discharge recommendations, include where the patient is going (home versus, STR or IRU). Discharge Planning: Plan Reach out to Endocrine for Discharge Recommendations. Pertinent Glycemic Management Data: TDD: 22 (16 basal, 6 bolus) of insulin previous 24 hours BG Range: 123 mg/dL to 2 2 2 mg/dL Diet: Diet NPO; Meds Steroids: Infusions: heparin (porcine) IV infusion - low dose protocol, 12 Units/kg/hr (Order- Specific), Last Rate: 15 Units/kg/hr (10/25/241806) History Diabetes History Pre-Admission Regimen: Lantus Solostar 10-14 units Januvia 100 mg daily Diabetes Management: Diaz Akers MD (PCP) Hospital Course Subjective Chief Complaint Diabetes Management Subjective: napping History Review of Systems Unable to perform ROS: Other No Known Allergies Objective Carb Scale for Correction Scale Please document the amount of carbs consumed in the comments section when insulin is given. MEAL BOLUS, hold if NPO or if eats < 10 grams of carbs Give 1 unit if eats/drinks 10-17 grams of carbs Give 2 units if eats/drinks 18-26 grams of carbs Give 3 units if eats/drinks 27-35 grams of carbs Give 4 units if eats/drinks 36-44 grams of carbs Give 5 units if eats/drinks 45-53 grams of carbs Give 6 units if eats/drinks 54-62 grams of carbs Give 7 units if eats/drinks 63-71 grams of carbs Give 8 units if eats/drinks at least 72 grams of carbs DO NOT HOLD IF NPO Notify provider if Blood Glucose LESS than 70 For BG 141-180 administer 1 unit For BG 181-220 administer 2 units For BG 221-260 administer 3 units For BG 261-300 administer 4 units For BG 301-340 administer 5 units For BG MORE than 340, administer 6 units AND notify provider Carb Scale HS/2a Correction Scale DO NOT HOLD IF NPO Notify primary team overnight if Blood Glucose <70 or >350 mg/dL. For BG 201-250 administer 1 unit For BG 251-300 administer 2 units For BG 301-350 administer 3 units For BG MORE than 350, administer 4 units Inpatient Orders I & O's: Intake/Output Summary (Last 24 hours) at 10/26/2024 0940 Last data filed at 10/25/2024 1800 Gross per 24 hour Intake -- Output 750 ml Net -750 ml Scheduled Meds: aspirin, 81 mg, Oral, Daily atorvastatin, 80 mg, Oral, Daily calcitRIOL, 0.5 mcg, Oral, Daily calcium carbonate, 500 mg, Oral, BID chlorhexidine, 15 mL, Mouth/Throat, BID darbepoetin kelley (ARANESP) injection, 60 mcg, Subcutaneous, Weekly insulin glargine, 16 Units, Subcutaneous, Daily insulin lispro, 1-4 Units, Subcutaneous, 3 times per day insulin lispro, 1-6 Units, Subcutaneous, TID with meals insulin lispro, 1-8 Units, Subcutaneous, TID with meals levothyroxine, 25 mcg, Oral, Daily 6AM metoPROLOL SUCCINATE, 75 mg, Oral, Daily senna-docusate, 2 tablet, Oral, Nightly sodium citrate-citric acid, 30 mL, Oral, BID PC B&D Physical Vitals: 10/25/24 2348 10/26/24 0356 10/26/24 0500 10/26/24 0801 BP: 136/63 136/63 (!) 142/66 BP Location: Right arm Right arm Right arm Patient Position: Lying Lying Lying Pulse: 65 65 68 Resp: 18 18 18 Temp: 96.8 ??F (36 ??C) 97.4 ??F (36.3 ??C) 98 ??F (36.7 ??C) TempSrc: Tympanic Tympanic Tympanic SpO2: 96% 96% 93% Weight: 65.4 kg (144 lb 2.9 oz) Height: Intake/Output Summary (Last 24 hours) at 10/26/2024 0940 Last data filed at 10/25/2024 1800 Gross per 24 hour Intake -- Output 750 ml Net -750 ml Physical Exam Vitals reviewed. Cardiovascular: Rate and Rhythm: Normal rate. Pulmonary: Effort: Pulmonary effort is normal. Labs Lab Results Component Value Date HGBA1C 8.7 (H) 10/19/2024 Recent Labs 10/25/24 2020 10/25/24 2349 10/26/24 0358 10/26/24 0618 10/26/24 0848 GLUC 222* 125* 100* 79 90 Lab Results Component Value Date ANIONGAP 15 10/26/2024 ANIONGAP 16 10/25/2024 ANIONGAP 19 (H) 10/24/2024 Lab Results Component Value Date NA 145 10/26/2024 K 4.2 10/26/2024 CL 107 10/26/2024 CO2 23 10/26/2024 BUN 61 (H) 10/26/2024 CREAT 4.0 (H) 10/26/2024 GLUC 90 10/26/2024 GLUC 79 10/26/2024 Lab Results Component Value Date HGBA1C 8.7 (H) 10/19/2024 During the day of the visit, 35 minutes spent was spent on the following: and discontinuous time): Reviewing chart, Daytime /overnight events, glucose and MAR data, reviewing labs, ordering medication/insulin, documenting in the patient's record, coordination of care with the primary team and bedside RN. Patient is at risk for hypoglycemia being treated with insulin (high risk medication). Signed [facility] 10/26/2024 9:40 AM * Donavon Rodgers MD - 10/26/2024 6:59 AM EST Hospital Medicine Progress Note LOS: 8 CODE:: Code Status Procedures Full Code Principal Problem: DKA (diabetic ketoacidosis) (HCC) (POA: Yes) Active Problems: NSTEMI (non-ST elevated myocardial infarction) (HCC) (POA: Unknown) COVID (POA: Yes) Heart failure with reduced ejection fraction (HCC) (POA: Unknown) Pulmonary edema with left heart failure (HCC) (POA: Unknown) Resolved Problems: Assessment & Plan Neymar Wilder is a 79 y.o. male with PMHx of insulin-dependent T2DM, HFrEF, CKD, HTN, who presented with to outside hospital with URI symptoms, transferred to [facility] for management of DKA and ICU, stable for downgrade to stepdown level care on 10/20/2024. Hospital course complicatedby NSTEMI on heparin drip, acute hypoxic respiratory failure. #NSTEMI #Acute decompensated HFrEF (LVEF 28%) #Pulmonary edmea and effusion s/p thoracentesis (10/19/24) #Moderate functional MR #HTN Patient presented with a proBNP of 70,000, and up trending troponins. EKG showed sinus rhythm with poor R wave progression and nonspecific T wave abnormalities. Troponin elevated at 1830 -> 4171, concerning for NSTEMI. He was transferred to for further evaluation and management. TTE on 10/18/2024 showed severely decreased LV systolic function with newly reduced LVEF of 28%. Cardiology was consulted. Chest x-ray worsening pulmonary edema. Bilateral thoracentesis were performed 10/19. Patient continues to await heart catheterization. - Cardiology following, appreciate recommendations - Spot dose Lasix today 40 mg IV - Strict I's and O's - Continue heparin drip per ACS protocol - Continue aspirin 81 mg daily - Continue atorvastatin 80 mg daily - Increase metoprolol succinate to 75 mg daily - Continue telemetry -- Potential cath later today, will remain n.p.o. #Diabetic ketoacidosis, resolved #Type 2 diabetes, insulin-dependent Patient presents from outside hospital due to URI symptoms and found to be in DKA with presenting lab values of 7.13, pCO2 of 25 and serum bicarb of 8. Patient was placed on DKA Glucomander protocol,however he had difficulties with his gap closing. Endocrinology was consulted, patient's beta hydroxybutyrate normalized with stable VBG of well-controlled blood glucose for which he was deemed stable to transfer to subcutaneous insulin. The patient has been n.p.o. at midnight pending [employer] for several days resuming a diet in the evening and there is concern that he may open up his anion gap. He will continue working with endocrinology closely to monitor his blood glucose levels and adjust his insulin accordingly - Lantus 16 units daily - Insulin sliding scale - Add D5 fluids at low rate if patient is n.p.o. for extended period of times - Glucose checks before meals and at bedtime - Endocrine following, follow recommendations Discharge planning: please reach out to Endocrine- please give advanced notice doses/format depending on disposition ( SNF vs home) #COVID-positive Patient initially came in COVID-positive. Chest x-ray was obtained to evaluate for pulmonary edema,there might be concerns for a consolidation in the right lower lobe. However the patient is asymptomatic, afebrile, white blood cell count 9.7 today. Will continue to monitor for symptoms and treat as necessary. Asymptomatic. - Monitor fever and WBC curve - Airborne precautions 10/19 #ALISA on stage CKD #Anion gap metabolic acidosis secondary to DKA Patient is at his baseline BUN and creatinine 80/4.8. Nephrology was consulted given the patient isCKD stage V and will need eventual cardiac cath. Per nephrology he currently does not need dialysis. --Follow up nephrology recommendations - Stop sodium bicarbonate tablets - Sodium citrate 30 mL 3 times daily - Darbepoetin alpha 60 mcg weekly - BMP daily - Strict I's and O's - Avoid nephrotoxic agents #Anemia -Darbepoetin 60 mcg subcutaneous weekly #Hypocalcemia worsening now down to 7.1. -Calcitriol 0.5 mcg daily - Calcium carbonate 500 mg twice daily - Follow-up PTH #Hypothyroidism - Continue home Synthroid 25 mcg daily VTE Time Out IMPROVE SCORE: 2 (10/18/2024 10:24 AM) Interpretation - High Risk Chemical Prophylaxis heparin (porcine) IV infusion 25,000 units in 500 mL 0.45% NaCl (premix) Intravenous Continuous heparin (porcine) 1000 unit/mL injection 2,100 Units Intravenous Every 6 hours PRN Mechanical Prophylaxis SCDs are ordered - Bilateral (Knee High)Mechanical VTE prophylaxis NOT ordered. Click here to orderif appropriate Mechanical Prophylaxis Contraindication: None - I will order SCDs Diet: cardiac Tele: yes Lines: PIV GI ppx: no DVT ppx: on therapeutic heparin Dispo: floors Expected Discharge Date: 10/26/2024 Subjective Overnight: Patient did not go to [employer] yesterday, stable overnight no acute events Today: Patient seen and examined at this morning. He is on supplemental oxygen. He states he is feeling well and awaits [employer]. Patient continues to be very positive and awaits his procedure. Objective Last Vitals Pulse:65,Resp:18,BP:136/63,SpO2:96 %,Weight:65.4 kg (144 lb 2.9 oz) Temp Last 24 hrs: Temp Min: 96.8 ??F (36 ??C) Max: 98.8 ??F (37.1 ??C) Last temp: 97.4 ??F (36.3 ??C) (Tympanic) Intake/Output Summary (Last 24 hours) at 10/26/2024 0659 Last data filed at 10/25/2024 1800 Gross per 24 hour Intake 20 ml Output 750 ml Net -730 ml Physical Exam Vitals reviewed. Constitutional: General: He is not in acute distress. Appearance: Normal appearance. He is not ill-appearing. HENT: Mouth/Throat: Mouth: Mucous membranes are moist. Pharynx: Oropharynx is clear. Eyes: Conjunctiva/sclera: Conjunctivae normal. Cardiovascular: Rate and Rhythm: Normal rate and regular rhythm. Pulses: Normal pulses. Heart sounds: Normal heart sounds. No murmur heard. No friction rub. No gallop. Pulmonary: Effort: Pulmonary effort is normal. No respiratory distress. Breath sounds: Normal breath sounds. No stridor. No wheezing, rhonchi or rales. Comments: No obvious crackles on exam Abdominal: General: Abdomen is flat. Bowel sounds are normal. There is no distension. Palpations: Abdomen is soft. There is no mass. Tenderness: There is no abdominal tenderness. Musculoskeletal: Right lower leg: No edema. Left lower leg: No edema. Skin: General: Skin is warm and dry. Coloration: Skin is not jaundiced or pale. Neurological: Mental Status: He is alert and oriented to person, place, and time. Relevant data reviewed Labs, Notes, Meds, and Radiology Notable labs are: White Blood Cell Count Date Value Ref Range Status 10/25/2024 12.5 (H) 4.0 - 11.0 Thou/uL Final Hemoglobin Date Value Ref Range Status 10/25/2024 9.2 (L) 13.0 - 17.7 g/dL Final Hematocrit Date Value Ref Range Status 10/25/2024 29.9 (L) 39.0 - 54.0 % Final Platelet Count Date Value Ref Range Status 10/25/2024 361 150 - 450 Thou/uL Final Lab Results Component Value Date NA 141 10/25/2024 K 4.6 10/25/2024 CL 104 10/25/2024 CO2 21 (L) 10/25/2024 BUN 64 (H) 10/25/2024 CREAT 3.9 (H) 10/25/2024 GLUC 100 (H) 10/26/2024 GLUC 123 (H) 10/25/2024 Lab Results Component Value Date CALCIUM 7.8 (L) 10/25/2024 MG 2.0 10/25/2024 PHOS 3.8 10/25/2024 Lab Results Component Value Date ALBUMIN 3.5 10/23/2024 Imaging Studies CXR Report reviewed and Image reviewed Hospital Course Neymar Wilder is a 79 y.o. male with PMHx of insulin-dependent diabetes, HFrEF, stage V CKD, hypertension who was admitted ICU level care due to DKA as well as an NSTEMI on a heparin drip. Hospital course complicated by AHRF likely 2/2 HF exacerbation less likely from COVID pneumonia given congestion on CXR and significant improvement in oxygen requirements following thoracentesis and diuresis. Patient is s/p bilateral thoracentesis on 10/19/24. He was transitioned off insulin drip to subcutaneous insulin and diabetic diet on 10/19/24. Although anion gap is elevated, it does not correlatewith persistently normal BHB levels or normal lactate; this was dicussed with endocrine and patientis no longer in DKA given normal BHB and stable VBG and well controlled BG levels. Otherwise, patient was noted to have an NSTEMI for which he remains on a heparin drip per cardiology recs. On medical floors, patient continues on heparin drip pending further workup per cardiology. Remainsasymptomatic from his COVID infection. Repeat BMPs with normal gap. 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 Patient requires intermittent doses of IV Lasix for pulmonary edema and work of breathing. Donavon Rodgers MD PGY-1 Internal Medicine [place] Text Preferred Associated attestation - Neymar Mcfarland MD - 10/27/2024 10:39 AM EST Teaching Attending Inpatient Attestation: I have personally interviewed and examined the patient and reviewed Dr. Rodgers's note. I agree withthe history, exam, assessment and plan as detailed in the Resident/Fellow's note with the followingadditions/exceptions/observations. Labs/Radiologic Studies were reviewed. BUN 61 Creatinine 4.1 High-sensitivity troponin continue to downtrend 2070 Overnight uneventful patient remains on 4 L supplemental oxygen delivered by oxy mask, continues onheparin infusion. He remains n.p.o. for the potential of left and right heart catheterization today26 October 2024. Agree with the assessment and plan no changes. Problem List Patient seen on 10/26/2024 Sign: Neymar Mcfarland MD 10/27/2024 10:34 AM * PRASANNA Holbrook 10/25/2024 5:55 PM EST Images from the original note were not included. 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 Presented on 10/18/2024 for URI sx (resolved)--> found to be in DKA.Initially in ICU, on insulin drip; hospital course was complicated NSTEMI for which he was started on heparin drip, also found to have new HFrEF, EF 28%. Pt tested COVID positive but asymptomatic, notherapies were pursued. Furthermore patient was also noted to have worsening ALISA however creatinineincreased to 5.2 was noted to have anion gap metabolic acidosis from DKA nephrology was following. Plan to do ischemic workup this admission. Assessment Acute hypoxic respiratory failure in the setting of COVID infection pulmonary congestion NSTEMI Acute on chronic decompensated HFrEF with EF of 28% Moderate functional MR Pulmonary edema with effusion status postthoracentesis ( 10/19/24) Type 2 diabetes diabetic ketoacidosis insulin-dependent ALISA on CKD stage V creatinine baseline 4.8-5.2 Anion gap metabolic acidosis secondary to DKA and CKD COVID-positive Hypothyroidism Patient noted to have NSVT TTE 10/18/24 LV severely dilated. Eccentric hypertrophy. Left LV systolic function severely decreased. The quantitative EF by 2D Poole biplane is 28% with anterior and anteroseptal wall are akinetic.. The apex is dyskinetic. There is evidence of diastolic dysfunction with elevated left atrial filling pressure. The left atrial cavity severely dilated. RV function is normal. RV systolic function is normal. ERVSP 52mmHg. Moderate functional MR. There is mild TR. there is a large left pleural effusion Plan Acute decompensated HFrEF (LVEF 28%), NYHA class III, AHA stage C Moderate functional MR Bilateral pleural effusions, s/p bilateral thoracentesis 10/18 Acute on chronic decompensated HFpEF likely secondary to valvular heart disease Acute on chronic HFrEF, LVEF28% NYHA ClassII/III, Stage C Clinically appears mildly trace edema do not appreciate JVD monitor seem euvolemic TTE --LV severely dilated. Severely decreased LVEF RSVF normal, RV systolic pressure 52 moderate functional MR. 24 hr Net- 620mL, Wt 65.8Kg ( 145 IB ) Since admission net- 5415.2mL, Wt 68.9kg ( 152IB ) Diuresis chest x-ray concern of fluid overload, bilateral opacities noted with pleural effusion patient warm and wet however patient noted to have worsening ALISA defer to nephrology if they are inagreement with IV Lasix can spot place consider 40 mg IV daily as needed recommend goal diuresis 2 to 3 L daily Defer Lasix to nephrology given worsening ALISA. ??GDMT: BB: continue Toprol XL 75 mg daily MRA: On hold Aldactone 25 mg p.o. given worsening ALISA SGLT2 inhibitor :On hold until post cath YULY/ARB/ARNI : Given worsening ALISA on hold until post and given worsening ALISA Daily weights/ Daily renal panel Recommend optimizing electrolytes keep K >or =4.0 and Mg >or=2.0 Strict I's and O's, daily weight. Aggressive risk factor modification and lifestyle changes are encouraged, including optimization ofblood pressure and blood glucose levels, regular aerobic activity, weight loss, heart healthy diet and smoking cessation Per my discussion with cath patient plan for cath tomorrow patient is standard risks that he could potentially going to dialysis cath plan for diagnostic in a.m. Patient will need to be n.p.o. admitted NSTEMI, NORRIS 34 NSTEMI seem to be multifactor type 1 vs type 2 NSVT Currently patient chest pain-free HsT: 1,830 -> 4,276 currently downtrending to 2413 EKG demonstrates NSR with T wave inversion in V4 through V5 through V6 TTE from 2021 demonstrated LVEF of 55-60%. Given new finding of reduced LVEF 28% on echocardiogram,recommend ischemic workup once metabolic derangements are resolved, consult IC and plan for cath tomorrow spoke with nephrology who is in agreement appreciate input Lázaro Score with 100cc of contrast: 57.3% risk of any post-PCI RADHA; 12.6% post- PCI requiring HD. Troponin elevation can be demand ischemia due to viral pneumonia / Covid and DKA. Cannot rule out IA, COVID myocarditis, or stress induced cardiomyopathy at this point. NSTEMI likely type II demand however unable to rule out type I hence awaiting cardiac Medication regimen Consulted IC appreciate input Patient will remain n.p.o. for RHC and LHC spoke with nephrology Dr. Kent who is in agreement to have the patient proceed with cath in a.m. given no availability today Continue heparin gtt per ACS protocol Continue ASA 81 mg daily Continue atorvastatin 80 mg daily Continue Toprol-XL 75 mg p.o. daily Continuous telemetry monitoring Patient will need a private room post cath Using Lázaro Score Risk of any post PCI RADHA 57.3%; risk of post PCI RADHA requiring dialysis 12.6% discussed the risk with patient patient in agreement to proceed with cardiac cath. For details refer to nephrology. ALISA on CKD Creatinine peak of 5.2, down to 4.0 Today creatinine 3.9 Nephrology following appreciate recommendations No indication for HD at this time Daily BMPs Appreciate input from nephrology to proceed with cath Appreciate input from IC team. Using Lázaro Score Risk of any post PCI RADHA 57.3%; risk of post PCI RADHA requiring dialysis 12.6% discussed the risk with patient patient in agreement to proceed with cardiac cath. For details refer to nephrology. HTN HLD Continue with atorvastatin 80 mg p.o.daily Continue with Toprol-XL 75 mg p.o. daily Recommend outpatient follow-up with cardio 2/3 @ 2:30 Dr. Mario Alberto Alvarez [facility] cardiology will continue to follow. Case discussed with attending, Dr. Contreras Plan was communicated to primary team dr Neymar Mcfarland /and the [facility] 3 team IMPROVE SCORE: Stepdown / ICU / CCU Stay: 1-->Stepdown / ICU / CCU stay Age > 60 yrs: 1--> Age > 60 years IMPROVE SCORE: 2 DVT PPX: Heparin drip CODE STATUS:full code HCP/Decision maker: Patient Telemetry:Yes This note was prepared using voice recognition software and direct typing. Please excuse inadvertent tank wagon driver or typing errors, or uncorrected word substitutions. Although every attempt has beenmade by the provider to proofread this document, occasional misspellings and typographical errors may still be present DVT PROPHYLAXIS Risk Assessment Scores and Dates: VTE Time Out IMPROVE SCORE: 2 (10/18/2024 10:24 AM) Interpretation - High Risk Chemical Prophylaxis heparin (porcine) IV infusion 25,000 units in 500 mL 0.45% NaCl (premix) Intravenous Continuous heparin (porcine) 1000 unit/mL injection 2,100 Units Intravenous Every 6 hours PRN Mechanical Prophylaxis SCDs are ordered - Bilateral (Knee High) Subjective Denies any chest pain, pleuritic chest pain or palpitation Provided focused cardiology update to patient all questions and concerns were addressed Objective Telemetry Reviewed: NST with hr 77 Last Vitals Pulse:93,Resp:18,BP:(!) 141/67,SpO2:97 %,Weight:65.8 kg (145 lb 1 oz) Temp Last 24 hrs: Temp Min: 96.9 ??F (36.1 ??C) Max: 98.8 ??F (37.1 ??C) Intake/Output Summary (Last 24 hours) at 10/25/2024 1756 Last data filed at 10/25/2024 0718 Gross per 24 hour Intake 20 ml Output 750 ml Net -730 ml Physical Exam GENERAL: The patient appears laying in bed comfortably, in no acute cardio- pulmonary distress. Patient is afebrile. AAOx3 GENERAL: No acute distress. HEENT: Anicteric. No pallor. Moist oral membranes. NECK: Supple. No carotid bruits. JVP normal. CHEST: Nontender. Clear to auscultation bilaterally. CARDIAC: Regular rate and rhythm. Noted to have 2 out of 6 murmur appreciated Erb's nondisplaced PMI. ABDOMEN: Soft. Nontender. Normal bowel sounds. EXTREMITIES: Warm. Well-perfused. No edema. VASCULAR: + distal pulses SKIN: Warm and dry. No rashes. NEUROLOGIC: Alert. Grossly nonfocal. Physical Exam Imaging Studies CXR Report reviewed Echocardiogram Report reviewed Angiogram Report reviewed Imaging Studies All appropriate imaging studies within the past 24 hours reviewed (actual images) Results for orders placed during the hospital encounter of 10/18/24 Echocardiogram (TTE) Comprehensive (Contrast PRN) Interpretation Summary The left ventricle is severely dilated. There is eccentric hypertrophy. Left ventricular systolic function is severely decreased. The quantitative EF by 2D Poole biplane is 28%. The anterior and anteroseptal garcia are akinetic. The apex is dyskinetic. There is evidence of diastolic dysfunction, with elevated left atrial filling pressure. The left atrial cavity is severely dilated. The right ventricle is normal in size. Right ventricular systolic function is normal. The estimatedright ventricular systolic pressure is 52 mmHg. There is moderate functional mitral regurgitation. There is mild tricuspid regurgitation. There is a large left pleural effusion. There is no previous study for comparison in our system. Dr. Pushpa Gallegos was notified by [place] text at 12:36 PM. Imaging Studies XR Chest 1 view-Portable Result Date: 10/19/2024 EXAMINATION: XR CHEST CLINICAL INFORMATION: hypoxic sob eval for pulm edema COMPARISON: Chest radiograph 10/18/2024 at 5:27 AM TECHNIQUE: Frontal views of the chest were obtained. FINDINGS: Lungs are slightly hypoexpanded. Interval worsening of patchy bilateral opacities with central and basilar predominance. Trace bilateral pleural effusions. No pneumothorax. The cardiomediastinal silhouette is unchanged from prior. No acute osseous abnormality. 1. Interval worsening of now moderate pulmonary edema. Superimposed infectious/inflammatory processcannot be entirely excluded. 2. Trace bilateral pleural effusions unchanged. Interpreted by: Mitchell Ascencio DO Technical Operations Vice President I personally reviewed the images and the resident's preliminary report and AGREE with the report as it is now presented ([email or web address]). XR Chest 1 view-Portable Result Date: 10/19/2024 EXAMINATION: XR CHEST CLINICAL INFORMATION: Post thoracentesis. COMPARISON: XR Chest 10/18/2024 TECHNIQUE: Frontal views of the chest was obtained. FINDINGS: Heart is mildly enlarged. Diffuse pulmonary edema is slightly improved compared to the prior exam. Left pleural effusion is improved. Improved pulmonary edema and left pleural effusion. US Guided Bedside Thoracentesis-Bilateral Result Date: 10/19/2024 PROCEDURE: Ultrasound-guided thoracentesis INDICATION: Bilateral pleural effusion. SPECIMEN: Specimen collected as requested. Sample left with bedside RN. ACCESS: 6 [place] Dznc-B-Twrzfini closed needle/catheter system REQUESTING PRACTITIONER: Cheryl Blue MD CLINICIAN(S): CHELLY Gaitan CONSENT: Informed consent was obtained from the patient prior to the procedure. During this process, the procedure and potential alternatives were explained along with the intended outcome and benefits.The risks of the procedure, including the possibility of an unsuccessful procedure as well as the risk of not doing the procedure were discussed. the patient was given the opportunity to ask any quest ions regarding the procedure and appeared competent to make medical decisions. A signed consent form which documents this discussion was placed in the medical record. A timeout procedure was performed. HISTORY: Neymar Wilder is a 79 y.o. old male with a suspected bilateral pleural effusion. The patient was referred for an ultrasound-guided thoracentesis. MEDICATIONS: 10ml 1% lidocaine. TECHNIQUE/FINDINGS: Appropriate pre-procedure medical history and imaging studies were reviewed. The ultrasound machine was brought to the patients bedside. Ultrasound images of the right thorax were obtained to localize a moderate pleural effusion. Images were permanently saved to the record. An area of the patient's back was prepped and draped in the standard sterile fashion. 10 mL of 1% lidocaine was used to obtain local anesthesia of the skin and deeper tissues. A standard small bore needle was introduced to sample fluid and demonstrated a safe access route. There was no evidence of traversingadjacent organs or vascular structures. A 6 [place] Typs-A-Gkrljklt closed needle/catheter system was utilized for access. 850 mL of clear devorah fluid was aspirated before drainage ceased. The catheter was removed and a sterile dressing applied. Ultrasound images of the left thorax were obtained to localize a moderate pleural effusion. Images were permanently saved to the record. An area of the patient's back was prepped and draped in the standard sterile fashion. 10 mL of 1% lidocaine was used to obtain local anesthesia of the skin and deeper tissues. A standard small bore needle was introduced to sample fluid and demonstrated a safe access route. There was no evidence of traversing adjacent organs or vascular structures. A 6 [place] Euyz-K-Tfigkefp closed needle/catheter system was utilized for access. 550 mL of clear devorah fluid was aspirated before drainage ceased. The catheter was removed and a sterile dressing applied. The patient tolerated the procedure well without evidence of complications. Successful bilateral ultrasound-guided diagnostic and therapeutic thoracentesis yielding 850 mL of clear devorah fluid from the right and 550 mL of clear devorah fluid from the left. This procedure was performed and dictated by CHELLY Gaitan Echocardiogram (TTE) Comprehensive (Contrast PRN) Result Date: 10/18/2024 The left ventricle is severely dilated. There is eccentric hypertrophy. Left ventricular systolic function is severely decreased. The quantitative EF by 2D Poole biplane is 28%. The anterior and anteroseptal garcia are akinetic. The apex is dyskinetic. There is evidence of diastolic dysfunction, with elevated left atrial filling pressure. The left atrial cavity is severely dilated. The right ventricle is normal in size. Right ventricular systolic function is normal. The estimated right ventricular systolic pressure is 52 mmHg. There is moderate functional mitral regurgitation. There is mildtricuspid regurgitation. There is a large left pleural effusion. There is no previous study for marylu schuler in our system. Dr. Pushpa Gallegos was notified by [place] text at 12:36 PM. XR Chest 1 view-Portable Result Date: 10/18/2024 EXAMINATION: XR CHEST CLINICAL INFORMATION: SOB COMPARISON: None TECHNIQUE: Frontal view of the chest FINDINGS: The lungs are well-expanded. Central vascular and coarse interstitial prominence. Hazy right basilar and dense retrocardiac opacities. Small left and suspected small right layering pleural effusions. Thickening of the minor fissure. Gabriele B-lines. No pneumothorax. The cardiomediastinalsilhouette is similar to prior. No acute osseous abnormalities. 1. Findings as above most consistent with pulmonary edema and left greater than right small bilateral pleural effusions. Please note, an underlying infectious/inflammatory process cannot be excluded.2. Hazy right basilar and dense retrocardiac opacities may represent layering effusion and/or atelectasis, respectively. Interpreted by: Prem Coffman MD Technical Operations Vice President I personally reviewed the images and the resident's preliminary report and AGREE with the report as it is now presented ([email or web address]). Recent Results (from the past 8760 hour(s)) ECG 12 lead Collection Time: 10/25/24 10:44 AM Result Value Status Ventricular rate 76 Preliminary Atrial rate 76 Preliminary P-R interval 152 Preliminary QRS duration 82 Preliminary Q-T interval 450 Preliminary QTC calculation (Bazett) 506 Preliminary P axis 67 Preliminary R axis 69 Preliminary T axis 237 Preliminary Narrative Normal sinus rhythm ST & T wave abnormality, consider lateral ischemia Prolonged QT Abnormal ECG When compared with ECG of 23-Oct-2024 17:43, Nonspecific T wave abnormality, worse in Inferior leads T wave inversion less evident in Lateral leads Medications Medications Scheduled Medication Ordered Dose/Rate, Route, Frequency Last Action aspirin chewable tablet 81 mg 81 mg, PO, Daily Given, 81 mg at 10/25 955 atorvastatin (LIPITOR) tablet 80 mg 80 mg, PO, Daily Given, 80 mg at 10/25 955 calcitRIOL (ROCALTROL) capsule 0.5 mcg 0.5 mcg, PO, Daily Given, 0.5 mcg at 10/25 955 calcium carbonate (TUMS) chewable tablet 500 mg 500 mg, PO, BID Given, 500 mg at 10/25 954 chlorhexidine (PERIDEX) 0.12 % oral solution 15 mL 15 mL, MT, BID Given, 15 mL at 10/25 956 darbepoetin kelley (ARANESP) injection 60 mcg 60 mcg, SC, Weekly Given, 60 mcg at 10/23 143 insulin glargine (LANtus/SEMGLEE) 100 units/mL injection 16 Units 16 Units, SC, Daily Given, 16 Units at 10/25 1313 insulin lispro (HumaLOG/ADMELOG) 100 units/mL injection 1-4 Units 1-4 Units, SC, User Specified Given, 1 Units at 10/24 2055 insulin lispro (HumaLOG/ADMELOG) 100 units/mL injection 1-6 Units 1-6 Units, SC, TID with meals Given, 1 Units at 10/24 1133 insulin lispro (HumaLOG/ADMELOG) 100 units/mL injection 1-8 Units 1-8 Units, SC, TID with meals Given, 4 Units at 10/24 1624 levothyroxine (SYNTHROID, LEVOTHROID) tablet 25 mcg 25 mcg, PO, Daily 6AM Given, 25 mcg at 10/25 0559 metoPROLOL SUCCINATE (TOPROL-XL) 24 hr tablet 75 mg 75 mg, PO, Daily Given, 75 mg at 10/25 955 senna-docusate (SENNA-S) 8.6-50 MG tablet 2 tablet 2 tablet, PO, Nightly Given, 2 tablet at 10/19 2007 sodium citrate-citric acid (BICITRA) 500-334 mg/5 mL solution 30 mL 30 mL, PO, BID PC B&D Ordered Continuous Medication Ordered Dose/Rate, Route, Frequency Last Action heparin (porcine) IV infusion 25,000 units in 500 mL 0.45% NaCl (premix) 12 Units/kg/hr, IV, Continuous New Bag, 16 Units/kg/hr at 10/25 0954 PRN Medication Ordered Dose/Rate, Route, Frequency Last Action bisacodyl (DULCOLAX) suppository 10 mg 10 mg, RE, Daily PRN Ordered dextrose 50 % solution 12.5 g (Or Linked Group #1) 12.5 g, IV, Q15 Min PRN Ordered dextrose 50 % solution 25 g (Or Linked Group #1) 25 g, IV, Q15 Min PRN Ordered glucagon (GLUCAGEN) injection 1 mg (Or Linked Group #1) 1 mg, IM, Daily PRN Ordered glucose (GLUTOSE 15) 40 % oral gel 37.5 g (Or Linked Group #1) 1 Tube, PO, Q15 Min PRN Ordered glucose (GLUTOSE 15) 40 % oral gel 75 g (Or Linked Group #1) 2 Tube, PO, Q15 Min PRN Ordered heparin (porcine) 1000 unit/mL injection 2,100 Units 30 Units/kg, IV, Q6H PRN Ordered lactulose (ENULOSE) 10 gm/15 mL solution 20 g 30 mL, PO, Q4H PRN Ordered naloxone (NARCAN) 0.4 mg/mL injection 0.4 mg 0.4 mg, IV, Q5 Min PRN Ordered Relevant data reviewed Results from last 7 days Lab Units 10/25/24 1739 10/25/24 1233 10/25/24 0920 10/25/24 0827 10/24/24 0839 10/24/24 0711 10/24/24 0301 10/23/24 1259 10/23/24 1031 SODIUM mmol/L -- -- -- 141 -- 143 143 < > -- POTASSIUM mmol/L -- -- -- 4.6 -- 4.9 4.4 < > -- CHLORIDE mmol/L -- -- -- 104 -- 105 107 < > -- CO2 mmol/L -- -- -- 21* -- 19* 18* < > -- BUN mg/dL -- -- -- 64* -- 68* 67* < > -- CREATININE mg/dL -- -- -- 3.9* -- 4.0* 3.8* < > -- CALCIUM mg/dL -- -- -- 7.8* -- 7.8* 7.4* < > 7.4* GLUCOSE mg/dL -- -- -- 123* -- 149* 128* < > -- GLUCOSE, POC mg/dL 135* 166* 129* -- < > -- -- < > -- EGFR -- -- -- 15* -- 14* 15* < > -- ALBUMIN g/dL -- -- -- -- -- -- -- -- 3.5 < > = values in this interval not displayed. Lab Results Component Value Date MG 2.0 10/25/2024 Results from last 7 days Lab Units 10/25/24 0827 10/24/24 0711 10/23/24 0605 10/21/24 0309 10/19/24 2359 WHITE BLOOD CELL COUNT Thou/uL 12.5* 12.4* 11.2* < > 11.5* HEMOGLOBIN g/dL 9.2* 9.3* 9.6* < > 8.9* HEMATOCRIT % 29.9* 30.1* 30.5* < > 28.6* PLATELET COUNT Thou/uL 361 360 374 < > 271 NEUTROS PCT % -- -- -- -- 80.7 LYMPHS PCT % -- -- -- -- 11.6 MONOS PCT % -- -- -- -- 6.7 EOS PCT % -- -- -- -- 0.2 BASOS PCT % -- -- -- -- 0.2 < > = values in this interval not displayed. Lab Results Component Value Date HSTNT 2,413 () 10/25/2024 HSTNT 2,394 () 10/25/2024 HSTNT 2,514 () 10/25/2024 Lab Results Component Value Date PROBNP >70,000 (H) 10/18/2024 Lab Results Component Value Date HGBA1C 8.7 (H) 10/19/2024 Lab Results Component Value Date HGBA1C 8.7 (H) 10/19/2024 .. Lab Results Component Value Date CHOL 110 10/23/2024 Lab Results Component Value Date HDL 30 (L) 10/23/2024 No results found for: LDLCALC Lab Results Component Value Date TRIG 141 10/23/2024 No results found for: CHOLHDL .. Lab Results Component Value Date CKTOTAL 76 10/25/2024 Sign Bryant Gracia PA-C, 10/25/2024 5:56 PM * Marty Kent MD - 10/25/2024 10:00 AM EST Nephrology Progress Note PMHx of DM, HTN, CKD V (Bl creatinine 4.8-5.2 from May 2023 and March 2023) due to hypertensive and diabetic kidney disease (he follows with banking specialist in [place]), who presented intially to OSH with URI symptoms and increasing SOB. CXR demonsrated opacities peum[place] versus pulmonary edema. Blood sugar found to be greater than 700 with severe anion gap metabolic acidosis with pH of 7.1, consistent with diabetic ketoacidosis. Beta hydroxybutyrate found to be 3.63 on admission. Additionally patient was tested positive for COVID with concern for NSTEMI. TTE on 10/18/2024 showed severely decreased LVSF with newly reduced LVEF of 28%. 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 Still has mild beta-hydroxybutyrate level from yesterday Slowly improving Will continue sodium citrate 30 mL TID 3.)Anemia - darbe 60mcg subcutaneous weekly 4) hypocalcemia - calcitriol 0.5 a day and oral calcium 500 BID . 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 He feels very confident about his function even though he understands thereis risk here. He has been stable for so long with such reduced renal function that I do not think he really has been truly prepped for the meaning for dialysis in the long-term. We will endeavor to do this while he is here if we need to proceed. Dialysis modality education given on October 23 by our nurse navigator Subjective Respiratory: No SOB Cough, PND No Dizziness Cardiovascular: no chest pain , palpitations Gastrointestinal:no abdominal pain Genitourinary: no urinary pain, urine blood, hard to urinate Chart notes reviewed Objective Medications and therapies reviewed Physical Exam Vitals: 10/25/24 0400 10/25/24 0600 10/25/24 0718 10/25/24 0900 BP: (!) 145/70 (!) 158/67 BP Location: Right arm Right arm Patient Position: Lying Lying Pulse: 77 72 Resp: 16 18 Temp: 96.9 ??F (36.1 ??C) 97.1 ??F (36.2 ??C) TempSrc: Tympanic Tympanic SpO2: (!) 91% 94% 97% Weight: 65.8 kg (145 lb 1 oz) Height: Intake/Output Summary (Last 24 hours) at 10/25/2024 1000 Last data filed at 10/25/2024 0718 Gross per 24 hour Intake 130 ml Output 750 ml Net -620 ml General appearance: appears in NAD Lungs: breathing easily without rales or wheezes heard Heart: regular rate and rhythm, S1, S2 normal, 2/6 murmur, and no rub Extremities: no ulcers, or gangrene. Edema: none Neurologic: Grossly normal, no myoclonus, or tremor Relevant data reviewed Notable labs are: Lab Results Component Value Date/Time NA 143 10/24/2024 07:11 AM K 4.9 10/24/2024 07:11 AM CL 105 10/24/2024 07:11 AM CO2 19 (L) 10/24/2024 07:11 AM BUN 68 (H) 10/24/2024 07:11 AM CREAT 4.0 (H) 10/24/2024 07:11 AM GLUC 129 (H) 10/25/2024 09:20 AM GLUC 149 (H) 10/24/2024 07:11 AM Lab Results Component Value Date/Time WBC 12.5 (H) 10/25/2024 08:27 AM HGB 9.2 (L) 10/25/2024 08:27 AM HCT 29.9 (L) 10/25/2024 08:27 AM PLT 361 10/25/2024 08:27 AM Lab Results Component Value Date/Time CALCIUM 7.8 (L) 10/24/2024 07:11 AM MG 1.8 10/24/2024 07:11 AM PHOS 4.5 10/24/2024 07:11 AM Lab Results Component Value Date ALBUMIN 3.5 10/23/2024 No results found for: COLORUA , CLARITYUA , SPECGRAVUA , PHUA , PROTEINUA , GLUCUA , KETONESUA , BLOODUA , NITRITEUA , LEUKOCYTESUA , BILIUA , UROBILINOGEN Signed Marty Kent MD 10/25/2024 * Tangela Reed PA-C - 10/25/2024 8:03 AM EST Endocrinology Progress Note PA - Endocrinology - Medicine Today's Date: 10/25/2024 Admit Date: 10/18/2024 5:10 AM Consult requested by: Neymar Mcfarland MD Principal Problem: DKA (diabetic ketoacidosis) (HCC) (POA: Yes) Active Problems: NSTEMI (non-ST elevated myocardial infarction) (HCC) (POA: Unknown) COVID (POA: Yes) Heart failure with reduced ejection fraction (HCC) (POA: Unknown) Pulmonary edema with left heart failure (HCC) (POA: Unknown) Resolved Problems: Assessment & Plan Assessment: Neymar Wilder is a 79 y.o. male with T2DM (8.7%-10/19/2023), CKD5, HTN, who presented to OSH with cough, chills, dyspnea, found to have PNA, transferred to with concerns of NSTEMI, DKA. Endocrinology consulted for diabetes BG largely within goal, may require increase to carb scale. Basal reduced given that BG was tighterwhile NPO. If patient remains NPO by this evening, recommend low rate of dextrose-containing IVF. Hospital Plan Decrease to Lantus Insulin 16 units daily. Continue Meal Carb Humalog Insulin Scale: 1-8 units, 3 times a day with meals. See scale below. ICR 1: 9. Continue Meal Correction Humalog Insulin Scale: 1-6 units, 3 times a day with meals. See scale below. ISF 1: 40 > 140. Continue Nightly/0200 Correction Humalog Insulin Scale: 1-4 units. See scale below. ISF 1: 50 > 200. Glucose checks AC/HS & 0200. Notify endocrine team in the daytime or primary team overnight if BG <70 or >350 mg/dL. Hypoglycemia protocol in place. Please endocrinology team updated on discharge planning including date, disposition. Discharge Planning: Pending needs - patient on basal only at home, would prefer to coordinate similar regimen for discharge. Noted to be on Januvia - would prefer to switch to Tradjenta given renal function. Previous 24 Hours TDD: 25 units (Glargine 18, lispro 7). BG Range: 125-211. Diet: Diet NPO; Meds Steroids: None. Drips: None. History Diabetes History Diabetes Management: Diaz Akers MD (appears to be PCP). Pre-Admission Regimen: Lantus SoloStar 10-14 units - patient reports he takes what is written on the pen, unable to clarify exact dose, recorded as 15 units daily in chart Januvia 100 mg daily History of Present Illness Patient developed malaise, dyspnea, cough over 2-3 days, presented to OSH, found to be COVID positive Reports that he was not eating very much during this time, as he did not feel good At OSH, BHB elevated to 5.88 Hospital Course 10/18: On presentation, serum glucose 569, bicarb 8, BHB 3.63, AG 28, serum osmolality 359, started on insulin drip 10/19: Endo consulted Subjective Chief Complaint Diabetes Management Subjective Patient reports feeling okay, awaiting procedure. History Review of Systems Constitutional: Negative for activity change and appetite change. Objective Inpatient Orders aspirin, 81 mg, Oral, Daily atorvastatin, 80 mg, Oral, Daily calcitRIOL, 0.5 mcg, Oral, Daily calcium carbonate, 500 mg, Oral, BID chlorhexidine, 15 mL, Mouth/Throat, BID darbepoetin kelley (ARANESP) injection, 60 mcg, Subcutaneous, Weekly [Provider Held] insulin glargine, 18 Units, Subcutaneous, Daily insulin lispro, 1-4 Units, Subcutaneous, 3 times per day insulin lispro, 1-6 Units, Subcutaneous, TID with meals insulin lispro, 1-8 Units, Subcutaneous, TID with meals levothyroxine, 25 mcg, Oral, Daily 6AM metoPROLOL SUCCINATE, 75 mg, Oral, Daily senna-docusate, 2 tablet, Oral, Nightly sodium citrate-citric acid, 30 mL, Oral, TID No Known Allergies Scales Carb Scale Pre-meal Correction Nighttime Correction (Nightly and 2 AM) Please document the amount of carbs consumed in the comments section when insulin is given. MEAL BOLUS, hold if NPO or if eats < 10 grams of carbs Give 1 unit if eats/drinks 10-17 grams of carbs Give 2 units if eats/drinks 18-26 grams of carbs Give 3 units if eats/drinks 27-35 grams of carbs Give 4 units if eats/drinks 36-44 grams of carbs Give 5 units if eats/drinks 45-53 grams of carbs Give 6 units if eats/drinks 54-62 grams of carbs Give 7 units if eats/drinks 63-71 grams of carbs Give 8 units if eats/drinks at least 72 grams of carbs DO NOT HOLD IF NPO Notify provider if Blood Glucose LESS than 70 For BG 141-180 administer 1 unit For BG 181-220 administer 2 units For BG 221-260 administer 3 units For BG 261-300 administer 4 units For BG 301-340 administer 5 units For BG MORE than 340, administer 6 units AND notify provider DO NOT HOLD IF NPO Notify provider if Blood Glucose LESS than 70 For BG 201-250 administer 1 unit For BG 251-300 administer 2 units For BG 301-350 administer 3 units For BG MORE than 350, administer 4 units AND notify provider Physical Vitals: 10/25/24 0000 10/25/24 0400 10/25/24 0600 10/25/24 0718 BP: 130/64 (!) 145/70 BP Location: Right arm Right arm Patient Position: Lying Lying Pulse: 71 77 Resp: 16 16 Temp: 98.2 ??F (36.8 ??C) 96.9 ??F (36.1 ??C) TempSrc: Tympanic Tympanic SpO2: (!) 90% (!) 91% 94% Weight: 65.8 kg (145 lb 1 oz) Height: Intake/Output Summary (Last 24 hours) at 10/25/2024 0803 Last data filed at 10/25/2024 0718 Gross per 24 hour Intake 130 ml Output 750 ml Net -620 ml Physical Exam Vitals reviewed. Constitutional: General: He is not in acute distress. HENT: Head: Normocephalic and atraumatic. Mouth/Throat: Mouth: Mucous membranes are moist. Eyes: General: No scleral icterus. Conjunctiva/sclera: Conjunctivae normal. Pulmonary: Effort: Pulmonary effort is normal. Neurological: Mental Status: He is alert and oriented to person, place, and time. Labs Lab Results Component Value Date HGBA1C 8.7 (H) 10/19/2024 Recent Labs 10/24/24 1113 10/24/24 1607 10/24/243 10/25/24 0103 10/25/24 0515 GLUC 158* 152* 211* 125* 115* Lab Results Component Value Date ANIONGAP 19 (H) 10/24/2024 ANIONGAP 18 (H) 10/24/2024 ANIONGAP 15 10/23/2024 During the day of the visit, 45 minutes spent was spent on the following: Examining the patient Chart review in preparation for the visit Documenting in the patient record Reviewing Labs & Radiology Signed Tangela Reed PA-C Endocrinology - Medicine 10/25/2024 1:36 PM * Donavon Rodgers MD - 10/25/2024 6:02 AM EST Hospital Medicine Progress Note LOS: 7 CODE:: Code Status Procedures Full Code Principal Problem: DKA (diabetic ketoacidosis) (HCC) (POA: Yes) Active Problems: NSTEMI (non-ST elevated myocardial infarction) (HCC) (POA: Unknown) COVID (POA: Yes) Heart failure with reduced ejection fraction (HCC) (POA: Unknown) Pulmonary edema with left heart failure (HCC) (POA: Unknown) Resolved Problems: Assessment & Plan Neymar Wilder is a 79 y.o. male with PMHx of insulin-dependent T2DM, HFrEF, CKD, HTN, who presented with to outside hospital with URI symptoms, transferred to [facility] for management of DKA and ICU, stable for downgrade to stepdown level care on 10/20/2024. Hospital course complicatedby NSTEMI on heparin drip, acute hypoxic respiratory failure. #NSTEMI #Acute decompensated HFrEF (LVEF 28%) #Pulmonary edmea and effusion s/p thoracentesis (10/19/24) #Moderate functional MR #HTN Patient presented with a proBNP of 70,000, and up trending troponins. EKG showed sinus rhythm with poor R wave progression and nonspecific T wave abnormalities. Troponin elevated at 1830 -> 4171, concerning for NSTEMI. He was transferred to for further evaluation and management. TTE on 10/18/2024 showed severely decreased LV systolic function with newly reduced LVEF of 28%. Cardiology was consulted. Chest x-ray worsening pulmonary edema. Bilateral thoracentesis were performed 10/19. Patient continues to await heart catheterization. - Cardiology following, appreciate recommendations - Spot dose Lasix today 40 mg IV - Strict I's and O's - Continue heparin drip per ACS protocol - Continue aspirin 81 mg daily - Continue atorvastatin 80 mg daily - Increase metoprolol succinate to 75 mg daily - Continue telemetry -- Potential cath later today, will remain n.p.o. #Diabetic ketoacidosis, resolved #Type 2 diabetes, insulin-dependent Patient presents from outside hospital due to URI symptoms and found to be in DKA with presenting lab values of 7.13, pCO2 of 25 and serum bicarb of 8. Patient was placed on DKA Glucomander protocol,however he had difficulties with his gap closing. Endocrinology was consulted, patient's beta hydroxybutyrate normalized with stable VBG of well-controlled blood glucose for which he was deemed stable to transfer to subcutaneous insulin. The patient has been n.p.o. at midnight pending [employer] for several days resuming a diet in the evening and there is concern that he may open up his anion gap. He will continue working with endocrinology closely to monitor his blood glucose levels and adjust his insulin accordingly - Lantus 18 units daily - Insulin sliding scale - Add D5 fluids at low rate if patient is n.p.o. for extended period of times - Glucose checks before meals and at bedtime - Endocrine following, follow recommendations Discharge planning: please reach out to Endocrine- please give advanced notice doses/format depending on disposition ( SNF vs home) #COVID-positive Asymptomatic. - Monitor fever and WBC curve - Airborne precautions 10/19 #ALISA on stage CKD #Anion gap metabolic acidosis secondary to DKA Patient is at his baseline BUN and creatinine 80/4.8. Nephrology was consulted given the patient isCKD stage V and will need eventual cardiac cath. Per nephrology he currently does not need dialysis. --Follow up nephrology recommendations - Stop sodium bicarbonate tablets - Sodium citrate 30 mL 3 times daily - Darbepoetin alpha 60 mcg weekly - BMP daily - Strict I's and O's - Avoid nephrotoxic agents #Anemia -Darbepoetin 60 mcg subcutaneous weekly #Hypocalcemia worsening now down to 7.1. -Calcitriol 0.5 mcg daily - Calcium carbonate 500 mg twice daily - Follow-up PTH #Hypothyroidism - Continue home Synthroid 25 mcg daily VTE Time Out IMPROVE SCORE: 2 (10/18/2024 10:24 AM) Interpretation - High Risk Chemical Prophylaxis heparin (porcine) IV infusion 25,000 units in 500 mL 0.45% NaCl (premix) Intravenous Continuous heparin (porcine) 1000 unit/mL injection 2,100 Units Intravenous Every 6 hours PRN Mechanical Prophylaxis SCDs are ordered - Bilateral (Knee High)Mechanical VTE prophylaxis NOT ordered. Click here to orderif appropriate Mechanical Prophylaxis Contraindication: None - I will order SCDs Diet: cardiac Tele: yes Lines: PIV GI ppx: no DVT ppx: on therapeutic heparin Dispo: floors Expected Discharge Date: 10/26/2024 Subjective Overnight: Patient did not go to [employer] yesterday, stable overnight no acute events Today: Patient seen and examined at this morning. He is on supplemental oxygen. He states he is feeling well and awaits [employer]. Patient has been very patient and awaits [employer] Objective Last Vitals Pulse:77,Resp:16,BP:(!) 145/70,SpO2:(!) 91 %,Weight:65.9 kg (145 lb 4.5 oz) Temp Last 24 hrs: Temp Min: 96.9 ??F (36.1 ??C) Max: 98.2 ??F (36.8 ??C) Last temp: 96.9 ??F (36.1 ??C) (Tympanic) Intake/Output Summary (Last 24 hours) at 10/25/2024 0602 Last data filed at 10/24/2024 1800 Gross per 24 hour Intake 130 ml Output 750 ml Net -620 ml Physical Exam Vitals reviewed. Constitutional: General: He is not in acute distress. Appearance: Normal appearance. He is not ill-appearing. HENT: Mouth/Throat: Mouth: Mucous membranes are moist. Pharynx: Oropharynx is clear. Eyes: Conjunctiva/sclera: Conjunctivae normal. Cardiovascular: Rate and Rhythm: Normal rate and regular rhythm. Pulses: Normal pulses. Heart sounds: Normal heart sounds. No murmur heard. No friction rub. No gallop. Pulmonary: Effort: Pulmonary effort is normal. No respiratory distress. Breath sounds: Normal breath sounds. No stridor. No wheezing, rhonchi or rales. Comments: No obvious crackles on exam Abdominal: General: Abdomen is flat. Bowel sounds are normal. There is no distension. Palpations: Abdomen is soft. There is no mass. Tenderness: There is no abdominal tenderness. Musculoskeletal: Right lower leg: No edema. Left lower leg: No edema. Skin: General: Skin is warm and dry. Coloration: Skin is not jaundiced or pale. Neurological: Mental Status: He is alert and oriented to person, place, and time. Relevant data reviewed Labs, Notes, Meds, and Radiology Notable labs are: White Blood Cell Count Date Value Ref Range Status 10/24/2024 12.4 (H) 4.0 - 11.0 Thou/uL Final Hemoglobin Date Value Ref Range Status 10/24/2024 9.3 (L) 13.0 - 17.7 g/dL Final Hematocrit Date Value Ref Range Status 10/24/2024 30.1 (L) 39.0 - 54.0 % Final Platelet Count Date Value Ref Range Status 10/24/2024 360 150 - 450 Thou/uL Final Lab Results Component Value Date NA 143 10/24/2024 K 4.9 10/24/2024 CL 105 10/24/2024 CO2 19 (L) 10/24/2024 BUN 68 (H) 10/24/2024 CREAT 4.0 (H) 10/24/2024 GLUC 115 (H) 10/25/2024 GLUC 149 (H) 10/24/2024 Lab Results Component Value Date CALCIUM 7.8 (L) 10/24/2024 MG 1.8 10/24/2024 PHOS 4.5 10/24/2024 Lab Results Component Value Date ALBUMIN 3.5 10/23/2024 Imaging Studies CXR Report reviewed and Image reviewed Hospital Course Neymar Wilder is a 79 y.o. male with PMHx of insulin-dependent diabetes, HFrEF, stage V CKD, hypertension who was admitted ICU level care due to DKA as well as an NSTEMI on a heparin drip. Hospital course complicated by AHRF likely 2/2 HF exacerbation less likely from COVID pneumonia given congestion on CXR and significant improvement in oxygen requirements following thoracentesis and diuresis. Patient is s/p bilateral thoracentesis on 10/19/24. He was transitioned off insulin drip to subcutaneous insulin and diabetic diet on 10/19/24. Although anion gap is elevated, it does not correlatewith persistently normal BHB levels or normal lactate; this was dicussed with endocrine and patientis no longer in DKA given normal BHB and stable VBG and well controlled BG levels. Otherwise, patient was noted to have an NSTEMI for which he remains on a heparin drip per cardiology recs. On medical floors, patient continues on heparin drip pending further workup per cardiology. Remainsasymptomatic from his COVID infection. Repeat BMPs with normal gap. 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 Patient requires intermittent doses of IV Lasix for pulmonary edema and work of breathing. Donavon Rodgers MD PGY-1 Internal Medicine [place] Text Preferred Associated attestation - Neymar Mcfarland MD - 10/27/2024 10:53 AM EST Teaching Attending Inpatient Attestation: I have personally interviewed and examined the patient and reviewed Dr. Rodgers's note. I agree withthe history, exam, assessment and plan as detailed in the Resident/Fellow's note with the followingadditions/exceptions/observations. Labs/Radiologic Studies were reviewed. High-sensitivity troponins: 2603, 2514, 2394, 2413, 2468 Bicarb 21 BUN 64 Creatinine 3.9 Overnight uneventful. Unfortunately patient did not go for cardiac catheterization again. He will be made n.p.o. at midnight potential for catheterization on Tuesday, October 26, 2024. He appears comfortable in no acute respiratory distress. He remains on 4 L oxymask. He has an occasional cough but, denies chest pain, palpitations, diaphoresis, nausea or vomiting. Chest radiograph AP portable upright 45 degrees - my interpretation as follows. Lungs well-expanded small right pleural effusion, no focal consolidation, increased interstitial / airspace pulmonary edema. Breath sounds with inspiratory bilateral crackles. He will receive additional spot dose of 40 mg IV Lasix today, Continue current management As per resident note. Problem List Patient seen on 10/25/2024 Sign: Neymar Mcfarland MD 10/27/2024 10:40 AM * Mellissa Dumont APRN - 10/24/2024 8:41 AM EST Endocrinology Progress Note Endocrinology - Medicine Today's Date: 10/24/2024 Admit Date: 10/18/2024 5:10 AM Assessment & Plan Neymar Hernándezbenjyomar is a 79 y.o. male with T2DM, A1C 8.7% 10/19/23 DM2 PMH significant for HTN CKD HFrEF presented 10/18 for [place] symptoms but found to be in DKA -treated with insulin drip-resolved full course c/b NSTEMI also new HFrEF EF 20%, COVID-positive but asymptomatic, ALISA There are plans for ischemic workup This morning, was n.p.o. spoke to RN regarding concerns for hypoglycemia as he did not receive basal yesterday Added on BHB as there was a gap, given history of DKA BHB returned at 2.36 There were questions of sustained n.p.o, initially procedure canceled but update this afternoon patient will be n.p.o. Hospital Plan Recommend low-dose D5 containing fluids to prevent further ketosis at least 25 cc an hour, per teampreferring 50 cc/hr , agree with this , if has worse glycemic control can tighten correction insulin Addendum 4:52 PM D5 fluids being stopped concern for fluid overload patient has not gone to [employer] yet We will keep fingersticks every 4 hours overnight to monitor patient closer if fluids are off risk of hypoglycemia Fingerstick 152 advised RN to hold lispro correction as D5 fluids were just stopped at 4 PM Lantus (glargine): Received basal 18 which was reduced from [address] order on hold to reevaluatefor tomorrow, 10/25 will need some basal if continues to be NPO given DKA history Carb-based lispro scale : Place order on hold as he is n.p.o. Correction w/ meals lispro scale: Continue may consider fingersticks every 4 hours , will check feeding plan/timing of procedure Glucose checks AC/HS & 2 am Notify endocrine team daytime, primary team overnight for BG <70 or >300 mg/dL. Hypoglycemia protocol in place Discharge planning: please reach out to Endocrine- please give advanced notice doses/format depending on disposition ( SNF vs home) Assessment: cont'd, other pertinent glycemic considerations TDD: 10/23 TDD 7 BG Range: fasting 82 ( 82-168) Diet: Diet NPO; Meds Steroids: Infusions: heparin (porcine) IV infusion - low dose protocol, 12 Units/kg/hr (Order- Specific), Last Rate: 15 Units/kg/hr (10/24/24 4551) Discharge Planning: Depending on disposition, was on basal at home He was on Januvia 100 mg given renal function will need to decrease at least to 25 mg if this needsto be restarted History Diabetes History Diagnosed 10 years ago Diabetes Provider: ? PCP Dr. Diaz Akers, Pre-Admission Regimen: Lantus Solostar pen 10-14 units Januvia 100 mg SMBG unknown brand glucometer Hospital Course established with endocrine 10/19 DM2 CKD HTN presented from OSH with cough chills dyspnea found to have pneumonia transferred to 10/18 with concerns for NSTEMI/DKA Subjective Chief Complaint Diabetes Management ROS Unable to obtain patient on COVID precautions Objective Inpatient Orders No Known Allergies insulin glargine, 18 Units, Subcutaneous, Daily insulin lispro, 1-4 Units, Subcutaneous, NIGHTLY & 2AM 1:50> 200 insulin lispro, 1-6 Units, Subcutaneous, TID with meals 1:40 > 140 insulin lispro, 1-8 Units, Subcutaneous, TID with meals Mealtime insulin Premeal correction scale HS/2a correction scale Please document the amount of carbs consumed in the comments section when insulin is given. MEAL BOLUS, hold if NPO or if eats < 10 grams of carbs Give 1 unit if eats/drinks 10-17 grams of carbs Give 2 units if eats/drinks 18-26 grams of carbs Give 3 units if eats/drinks 27-35 grams of carbs Give 4 units if eats/drinks 36-44 grams of carbs Give 5 units if eats/drinks 45-53 grams of carbs Give 6 units if eats/drinks 54-62 grams of carbs Give 7 units if eats/drinks 63-71 grams of carbs Give 8 units if eats/drinks at least 72 grams of carbs DO NOT HOLD IF NPO Notify provider if Blood Glucose LESS than 70 For BG 141-180 administer 1 unit For BG 181-220 administer 2 units For BG 221-260 administer 3 units For BG 261-300 administer 4 units For BG 301-340 administer 5 units For BG MORE than 340, administer 6 units AND notify provider DO NOT HOLD IF NPO Notify provider if Blood Glucose LESS than 70 For BG 201-250 administer 1 unit For BG 251-300 administer 2 units For BG 301-350 administer 3 units For BG MORE than 350, administer 4 units AND notify provide MEDS: Meds scheduled PRN meds aspirin, 81 mg, Oral, Daily atorvastatin, 80 mg, Oral, Daily calcitRIOL, 0.5 mcg, Oral, Daily calcium carbonate, 500 mg, Oral, BID chlorhexidine, 15 mL, Mouth/Throat, BID darbepoetin kelley (ARANESP) injection, 60 mcg, Subcutaneous, Weekly insulin glargine, 18 Units, Subcutaneous, Daily insulin lispro, 1-4 Units, Subcutaneous, NIGHTLY & 2AM insulin lispro, 1-6 Units, Subcutaneous, TID with meals insulin lispro, 1-8 Units, Subcutaneous, TID with meals levothyroxine, 25 mcg, Oral, Daily 6AM metoPROLOL SUCCINATE, 50 mg, Oral, Daily senna-docusate, 2 tablet, Oral, Nightly sodium citrate-citric acid, 30 mL, Oral, TID Infusions heparin (porcine) IV infusion - low dose protocol, 12 Units/kg/hr (Order- Specific), Last Rate: 15 Units/kg/hr (10/24/24 0458) bisacodyl glucose OR glucose OR dextrose OR dextrose OR glucagon heparin (porcine) lactulose naloxone PHYSICAL EXAM: Vital signs: BP (!) 148/70 (BP Location: Right arm, Patient Position: Lying) Comment: rn notified Pulse 75 Temp 98 ??F (36.7 ??C) (Tympanic) Resp 16 Ht 1.702 m (5' 7 ) Wt 65.9 kg (145 lb 4.5 oz) SpO2 97% BMI 22.75 kg/m?? 65.9 kg (145 lb 4.5 oz) Body mass index is 22.75 kg/m??. Gen; pt in bed, RN at bedside Labs Glucose Data during admission: Recent Labs 10/23/24 1259 10/23/24 1802 10/23/24 1822 10/23/24 2102 10/24/24 0153 10/24/24 0301 10/24/24 0711 GLUC 158* 173* 168* 155* 155* 128* 149* Lab Results Component Value Date HGBA1C 8.7 (H) 10/19/2024 CALCIUM 7.8 (L) 10/24/2024 NA 143 10/24/2024 K 4.9 10/24/2024 CO2 19 (L) 10/24/2024 CL 105 10/24/2024 BUN 68 (H) 10/24/2024 CREAT 4.0 (H) 10/24/2024 Lab Results Component Value Date HGBA1C 8.7 (H) 10/19/2024 Signed Mellissa Dumont APRN BC-ADM 10/24/2024 11:58 AM 4:54 PM, I spent least 35 minutes in case chart review independent review glucose data multiple points of communication both with primary team and RN patient at risk for DKA and hypoglycemia see communication above Endocrinology - Medicine * Bryant Gracia PA-C - 10/24/2024 7:35 AM EST Images from the original note were not included. 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 Presented on 10/18/2024 for URI sx (resolved)--> found to be in DKA.Initially in ICU, on insulin drip; hospital course was complicated NSTEMI for which he was started on heparin drip, also found to have new HFrEF, EF 28%. Pt tested COVID positive but asymptomatic, notherapies were pursued. Furthermore patient was also noted to have worsening ALISA however creatinineincreased to 5.2 was noted to have anion gap metabolic acidosis from DKA nephrology was following. Plan to do ischemic workup this admission. Assessment Acute hypoxic respiratory failure in the setting of COVID infection pulmonary congestion NSTEMI Acute on chronic decompensated HFrEF with EF of 28% Moderate functional MR Pulmonary edema with effusion status postthoracentesis ( 10/19/24) Type 2 diabetes diabetic ketoacidosis insulin-dependent ALISA on CKD stage V creatinine baseline 4.8-5.2 Anion gap metabolic acidosis secondary to DKA and CKD COVID-positive Hypothyroidism Patient noted to have NSVT TTE 10/18/24 LV severely dilated. Eccentric hypertrophy. Left LV systolic function severely decreased. The quantitative EF by 2D Poole biplane is 28% with anterior and anteroseptal wall are akinetic.. The apex is dyskinetic. There is evidence of diastolic dysfunction with elevated left atrial filling pressure. The left atrial cavity severely dilated. RV function is normal. RV systolic function is normal. ERVSP 52mmHg. Moderate functional MR. There is mild TR. there is a large left pleural effusion Plan Acute decompensated HFrEF (LVEF 28%), NYHA class III, AHA stage C Moderate functional MR Bilateral pleural effusions, s/p bilateral thoracentesis 10/18 Acute on chronic decompensated HFpEF likely secondary to valvular heart disease Acute on chronic HFrEF, LVEF28% NYHA ClassII/III, Stage C Clinically appears mildly trace edema do not appreciate JVD monitor seem euvolemic TTE --LV severely dilated. Severely decreased LVEF RSVF normal, RV systolic pressure 52 moderate functional MR. 24 hr Net- 841 mL, Wt 65.9Kg ( 145 IB ) Since admission net-4685.2mL, Wt 68.9kg ( 152IB ) Diuresis chest x-ray concern of fluid overload, patient warm and wet however patient noted to have worsening ALISA defer to nephrology if they are in agreement with IV Lasix can consider 40 mg IV daily recommend goal diuresis 2 to 3 L daily Defer Lasix to nephrology given worsening ALISA. ??GDMT: BB: Increased Toprol XL 75 mg daily MRA: On hold Aldactone 25 mg p.o. given worsening ALISA SGLT2 inhibitor :On hold until post cath YULY/ARB/ARNI : Given worsening ALISA on hold until post and given worsening ALISA Daily weights/ Daily renal panel Recommend optimizing electrolytes keep K >or =4.0 and Mg >or=2.0 Strict I's and O's, daily weight. Aggressive risk factor modification and lifestyle changes are encouraged, including optimization ofblood pressure and blood glucose levels, regular aerobic activity, weight loss, heart healthy diet and smoking cessation NSTEMI, NORRIS 34 NSTEMI seem to be multifactor type 1 vs type 2 NSVT Currently patient chest pain-free HsT: 1,830 -> 4,276 EKG demonstrates NSR with poor R wave progression and nonspecific T wave abnormalities TTE from 2021 demonstrated LVEF of 55-60%. Given new finding of reduced LVEF 28% on echocardiogram,recommend ischemic workup once metabolic derangements are resolved, consult IC and plan for cath tomorrow spoke with nephrology who is in agreement appreciate input Lázaro Score with 100cc of contrast: 57.3% risk of any post-PCI RADHA; 12.6% post- PCI requiring HD. Troponin elevation can be demand ischemia due to viral pneumonia / Covid and DKA. Cannot rule out IA, COVID myocarditis, or stress induced cardiomyopathy at this point. Medication regimen Consulted IC appreciate input Patient will remain n.p.o. for RHC and LHC spoke with nephrology Dr. Kent who is in agreement to have the patient proceed with cath. Given arrhythmias on telemetry patient asymptomatic chest pain-free Continue heparin gtt per ACS protocol Continue ASA 81 mg daily Continue atorvastatin 80 mg daily Increase Toprol given concern of arrhythmia to 75 mg p.o. daily Continuous telemetry monitoring Using Lázaro Score Risk of any post PCI RADHA 57.3%; risk of post PCI RADHA requiring dialysis 12.6% discussed the risk with patient patient in agreement to proceed with cardiac cath. For details refer to nephrology. ALISA on CKD Creatinine peak of 5.2, down to 4.0 Nephrology following appreciate recommendations No indication for HD at this time Daily BMPs Appreciate input from nephrology to proceed with cath Appreciate input from IC team. Using Lázaro Score Risk of any post PCI RADHA 57.3%; risk of post PCI RADHA requiring dialysis 12.6% discussed the risk with patient patient in agreement to proceed with cardiac cath. For details refer to nephrology. HTN HLD Continue with atorvastatin 80 mg p.o.daily Increased with Toprol-XL 75 mg p.o. daily Will arrange for cardiology follow-up prior to discharge [facility] cardiology will continue to follow. Case discussed with attending, Dr. Contreras Plan was communicated to primary team dr Neymar Mcfarland /and the [place] [id number] team IMPROVE SCORE Stepdown / ICU / CCU Stay: 1-->Stepdown / ICU / CCU stay Age > 60 yrs: 1--> Age > 60 years IMPROVE SCORE: 2 DVT PPX: Heparin drip CODE STATUS:full code HCP/Decision maker: Patient Telemetry:Yes This note was prepared using voice recognition software and direct typing. Please excuse inadvertent tank wagon driver or typing errors, or uncorrected word substitutions. Although every attempt has beenmade by the provider to proofread this document, occasional misspellings and typographical errors may still be present DVT PROPHYLAXIS Risk Assessment Scores and Dates: VTE Time Out IMPROVE SCORE: 2 (10/18/2024 10:24 AM) Interpretation - High Risk Chemical Prophylaxis heparin (porcine) IV infusion 25,000 units in 500 mL 0.45% NaCl (premix) Intravenous Continuous heparin (porcine) 1000 unit/mL injection 2,100 Units Intravenous Every 6 hours PRN Mechanical Prophylaxis SCDs are ordered - Bilateral (Knee High) Subjective Currently patient denies any chest pain, pleuritic chest pain, palpitation orthopnea Provided focused cardiology update to patient all questions and concerns were addressed Objective Telemetry Reviewed: NSR with hr 72 Last Vitals Pulse:91,Resp:16,BP:(!) 151/71 (RN notified),SpO2:93 %,Weight:65.9 kg (145 lb 4.5 oz) Temp Last 24 hrs: Temp Min: 97.5 ??F (36.4 ??C) Max: 99.1 ??F (37.3 ??C) Intake/Output Summary (Last 24 hours) at 10/24/2024 0735 Last data filed at 10/24/2024 0600 Gross per 24 hour Intake 10 ml Output 851 ml Net -841 ml Physical Exam GENERAL: The patient appears laying in bed comfortably, in no acute cardio- pulmonary distress. Patient is afebrile. AAOx3 GENERAL: No acute distress. HEENT: Anicteric. No pallor. Moist oral membranes. NECK: Supple. No carotid bruits. JVP normal. CHEST: Nontender. Clear to auscultation bilaterally. CARDIAC: Regular rate and rhythm. Nondisplaced PMI. ABDOMEN: Soft. Nontender. Normal bowel sounds. EXTREMITIES: Warm. Well-perfused. Trace bilateral edema.. VASCULAR: + distal pulses SKIN: Warm and dry. No rashes. NEUROLOGIC: Alert. Grossly nonfocal. Physical Exam Imaging Studies CXR Report reviewed Echocardiogram Report reviewed Angiogram Report reviewed Imaging Studies All appropriate imaging studies within the past 24 hours reviewed (actual images) Results for orders placed during the hospital encounter of 10/18/24 Echocardiogram (TTE) Comprehensive (Contrast PRN) Interpretation Summary The left ventricle is severely dilated. There is eccentric hypertrophy. Left ventricular systolic function is severely decreased. The quantitative EF by 2D Poole biplane is 28%. The anterior and anteroseptal garcia are akinetic. The apex is dyskinetic. There is evidence of diastolic dysfunction, with elevated left atrial filling pressure. The left atrial cavity is severely dilated. The right ventricle is normal in size. Right ventricular systolic function is normal. The estimatedright ventricular systolic pressure is 52 mmHg. There is moderate functional mitral regurgitation. There is mild tricuspid regurgitation. There is a large left pleural effusion. There is no previous study for comparison in our system. Dr. Pushpa Gallegos was notified by [place] text at 12:36 PM. Imaging Studies XR Chest 1 view-Portable Result Date: 10/19/2024 EXAMINATION: XR CHEST CLINICAL INFORMATION: hypoxic sob eval for pulm edema COMPARISON: Chest radiograph 10/18/2024 at 5:27 AM TECHNIQUE: Frontal views of the chest were obtained. FINDINGS: Lungs are slightly hypoexpanded. Interval worsening of patchy bilateral opacities with central and basilar predominance. Trace bilateral pleural effusions. No pneumothorax. The cardiomediastinal silhouette is unchanged from prior. No acute osseous abnormality. 1. Interval worsening of now moderate pulmonary edema. Superimposed infectious/inflammatory processcannot be entirely excluded. 2. Trace bilateral pleural effusions unchanged. Interpreted by: Mitchell Ascencio DO Technical Operations Vice President I personally reviewed the images and the resident's preliminary report and AGREE with the report as it is now presented ([id number]). XR Chest 1 view-Portable Result Date: 10/19/2024 EXAMINATION: XR CHEST CLINICAL INFORMATION: Post thoracentesis. COMPARISON: XR Chest 10/18/2024 TECHNIQUE: Frontal views of the chest was obtained. FINDINGS: Heart is mildly enlarged. Diffuse pulmonary edema is slightly improved compared to the prior exam. Left pleural effusion is improved. Improved pulmonary edema and left pleural effusion. US Guided Bedside Thoracentesis-Bilateral Result Date: 10/19/2024 PROCEDURE: Ultrasound-guided thoracentesis INDICATION: Bilateral pleural effusion. SPECIMEN: Specimen collected as requested. Sample left with bedside RN. ACCESS: 6 [place] [id number] closed needle/catheter system REQUESTING PRACTITIONER: Cheryl Bule MD CLINICIAN(S): CHELLY Gaitan CONSENT: Informed consent was obtained from the patient prior to the procedure. During this process, the procedure and potential alternatives were explained along with the intended outcome and benefits.The risks of the procedure, including the possibility of an unsuccessful procedure as well as the risk of not doing the procedure were discussed. the patient was given the opportunity to ask any quest ions regarding the procedure and appeared competent to make medical decisions. A signed consent form which documents this discussion was placed in the medical record. A timeout procedure was performed. HISTORY: Neymar Wilder is a 79 y.o. old male with a suspected bilateral pleural effusion. The patient was referred for an ultrasound-guided thoracentesis. MEDICATIONS: 10ml 1% lidocaine. TECHNIQUE/FINDINGS: Appropriate pre-procedure medical history and imaging studies were reviewed. The ultrasound machine was brought to the patients bedside. Ultrasound images of the right thorax were obtained to localize a moderate pleural effusion. Images were permanently saved to the record. An area of the patient's back was prepped and draped in the standard sterile fashion. 10 mL of 1% lidocaine was used to obtain local anesthesia of the skin and deeper tissues. A standard small bore needle was introduced to sample fluid and demonstrated a safe access route. There was no evidence of traversingadjacent organs or vascular structures. A 6 [place] Qwbb-G-Yuybptdb closed needle/catheter system was utilized for access. 850 mL of clear devorah fluid was aspirated before drainage ceased. The catheter was removed and a sterile dressing applied. Ultrasound images of the left thorax were obtained to localize a moderate pleural effusion. Images were permanently saved to the record. An area of the patient's back was prepped and draped in the standard sterile fashion. 10 mL of 1% lidocaine was used to obtain local anesthesia of the skin and deeper tissues. A standard small bore needle was introduced to sample fluid and demonstrated a safe access route. There was no evidence of traversing adjacent organs or vascular structures. A 6 [place] Lwme-F-Mlhdjfir closed needle/catheter system was utilized for access. 550 mL of clear devorah fluid was aspirated before drainage ceased. The catheter was removed and a sterile dressing applied. The patient tolerated the procedure well without evidence of complications. Successful bilateral ultrasound-guided diagnostic and therapeutic thoracentesis yielding 850 mL of clear devorah fluid from the right and 550 mL of clear devorah fluid from the left. This procedure was performed and dictated by CHELLY Gaitan Echocardiogram (TTE) Comprehensive (Contrast PRN) Result Date: 10/18/2024 The left ventricle is severely dilated. There is eccentric hypertrophy. Left ventricular systolic function is severely decreased. The quantitative EF by 2D Poole biplane is 28%. The anterior and anteroseptal garcia are akinetic. The apex is dyskinetic. There is evidence of diastolic dysfunction, with elevated left atrial filling pressure. The left atrial cavity is severely dilated. The right ventricle is normal in size. Right ventricular systolic function is normal. The estimated right ventricular systolic pressure is 52 mmHg. There is moderate functional mitral regurgitation. There is mild tricuspid regurgitation. There is a large left pleural effusion. There is no previous study for tal rison in our system. Dr. Pushpa Gallegos was notified by [place] text at 12:36 PM. XR Chest 1 view-Portable Result Date: 10/18/2024 EXAMINATION: XR CHEST CLINICAL INFORMATION: SOB COMPARISON: None TECHNIQUE: Frontal view of the chest FINDINGS: The lungs are well-expanded. Central vascular and coarse interstitial prominence. Hazy right basilar and dense retrocardiac opacities. Small left and suspected small right layering pleural effusions. Thickening of the minor fissure. Gabriele B-lines. No pneumothorax. The cardiomediastinalsilhouette is similar to prior. No acute osseous abnormalities. 1. Findings as above most consistent with pulmonary edema and left greater than right small bilateral pleural effusions. Please note, an underlying infectious/inflammatory process cannot be excluded.2. Hazy right basilar and dense retrocardiac opacities may represent layering effusion and/or atelectasis, respectively. Interpreted by: Prem Coffman MD Technical Operations Vice President I personally reviewed the images and the resident's preliminary report and AGREE with the report as it is now presented ([id number]). Recent Results (from the past 8760 hour(s)) ECG 12 lead (STAT) Collection Time: 10/23/24 5:43 PM Result Value Status Ventricular rate 73 Preliminary Atrial rate 73 Preliminary P-R interval 148 Preliminary QRS duration 80 Preliminary Q-T interval 460 Preliminary QTC calculation (Bazett) 507 Preliminary P axis 54 Preliminary R axis 66 Preliminary T axis 152 Preliminary Narrative Normal sinus rhythm ST & T wave abnormality, consider lateral ischemia Prolonged QT Abnormal ECG When compared with ECG of 21-Oct-2024 21:45, Criteria for Septal infarct are no longer Present Nonspecific T wave abnormality, improved in Inferior leads T wave inversion more evident in Anterior leads Medications Medications Scheduled Medication Ordered Dose/Rate, Route, Frequency Last Action aspirin chewable tablet 81 mg 81 mg, PO, Daily Given, 81 mg at 10/23 850 atorvastatin (LIPITOR) tablet 80 mg 80 mg, PO, Daily Given, 80 mg at 10/23 850 calcitRIOL (ROCALTROL) capsule 0.5 mcg 0.5 mcg, PO, Daily Given, 0.5 mcg at 10/23 1008 calcium carbonate (TUMS) chewable tablet 500 mg 500 mg, PO, BID Given, 500 mg at 10/23 2120 chlorhexidine (PERIDEX) 0.12 % oral solution 15 mL 15 mL, MT, BID Given, 15 mL at 10/23 850 darbepoetin kelley (ARANESP) injection 60 mcg 60 mcg, SC, Weekly Given, 60 mcg at 10/23 1437 insulin glargine (LANtus/SEMGLEE) 100 units/mL injection 18 Units 18 Units, SC, Daily Ordered insulin lispro (HumaLOG/ADMELOG) 100 units/mL injection 1-4 Units 1-4 Units, SC, NIGHTLY & 2AM Given, 1 Units at 10/20 2047 insulin lispro (HumaLOG/ADMELOG) 100 units/mL injection 1-6 Units 1-6 Units, SC, TID with meals Given, 1 Units at 10/23 1833 insulin lispro (HumaLOG/ADMELOG) 100 units/mL injection 1-8 Units 1-8 Units, SC, TID with meals Given, 3 Units at 10/23 1832 levothyroxine (SYNTHROID, LEVOTHROID) tablet 25 mcg 25 mcg, PO, Daily 6AM Given, 25 mcg at 10/23 447 metoPROLOL SUCCINATE (TOPROL-XL) 24 hr tablet 50 mg 50 mg, PO, Daily Given, 50 mg at 10/23 850 senna-docusate (SENNA-S) 8.6-50 MG tablet 2 tablet 2 tablet, PO, Nightly Given, 2 tablet at 10/19 2007 sodium citrate-citric acid (BICITRA) 500-334 mg/5 mL solution 30 mL 30 mL, PO, TID Given, 30 mL at 10/23 2120 Continuous Medication Ordered Dose/Rate, Route, Frequency Last Action heparin (porcine) IV infusion 25,000 units in 500 mL 0.45% NaCl (premix) 12 Units/kg/hr, IV, Continuous Restarted - High Risk Medication, 15 Units/kg/hr at 10/248 PRN Medication Ordered Dose/Rate, Route, Frequency Last Action bisacodyl (DULCOLAX) suppository 10 mg 10 mg, RE, Daily PRN Ordered dextrose 50 % solution 12.5 g (Or Linked Group #1) 12.5 g, IV, Q15 Min PRN Ordered dextrose 50 % solution 25 g (Or Linked Group #1) 25 g, IV, Q15 Min PRN Ordered glucagon (GLUCAGEN) injection 1 mg (Or Linked Group #1) 1 mg, IM, Daily PRN Ordered glucose (GLUTOSE 15) 40 % oral gel 37.5 g (Or Linked Group #1) 1 Tube, PO, Q15 Min PRN Ordered glucose (GLUTOSE 15) 40 % oral gel 75 g (Or Linked Group #1) 2 Tube, PO, Q15 Min PRN Ordered heparin (porcine) 1000 unit/mL injection 2,100 Units 30 Units/kg, IV, Q6H PRN Ordered lactulose (ENULOSE) 10 gm/15 mL solution 20 g 30 mL, PO, Q4H PRN Ordered naloxone (NARCAN) 0.4 mg/mL injection 0.4 mg 0.4 mg, IV, Q5 Min PRN Ordered Relevant data reviewed Results from last 7 days Lab Units 10/24/24 0301 10/24/24 0153 10/23/24 2102 10/23/24 1822 10/23/24 1802 10/23/24 1259 10/23/24 1031 10/23/24 0836 10/23/24 0605 SODIUM mmol/L 143 -- -- -- 145 -- -- -- 147* POTASSIUM mmol/L 4.4 -- -- -- 5.0 -- -- -- 4.0 CHLORIDE mmol/L 107 -- -- -- 109* -- -- -- 110* CO2 mmol/L 18* -- -- -- 21* -- -- -- 18* BUN mg/dL 67* -- -- -- 71* -- -- -- 74* CREATININE mg/dL 3.8* -- -- -- 4.1* -- -- -- 4.1* CALCIUM mg/dL 7.4* -- -- -- 7.0* -- 7.4* -- 7.3* GLUCOSE mg/dL 128* -- -- -- 173* -- -- -- 66 GLUCOSE, POC mg/dL -- 155* 155* < > -- < > -- < > -- EGFR 15* -- -- -- 14* -- -- -- 14* ALBUMIN g/dL -- -- -- -- -- -- 3.5 -- -- < > = values in this interval not displayed. Lab Results Component Value Date MG 1.8 10/24/2024 Results from last 7 days Lab Units 10/23/24 0605 10/22/24 0812 10/21/24 0309 10/19/24 2359 10/19/24 0120 10/18/24 0516 WHITE BLOOD CELL COUNT Thou/uL 11.2* 10.7 10.8 11.5* < > 11.5* HEMOGLOBIN g/dL 9.6* 9.4* 8.9* 8.9* < > 8.5* HEMATOCRIT % 30.5* 30.3* 28.9* 28.6* < > 27.7* PLATELET COUNT Thou/uL 374 337 299 271 < > 265 NEUTROS PCT % -- -- -- 80.7 -- 86.0 LYMPHS PCT % -- -- -- 11.6 -- 9.2 MONOS PCT % -- -- -- 6.7 -- 4.3 EOS PCT % -- -- -- 0.2 -- 0.0 BASOS PCT % -- -- -- 0.2 -- 0.1 < > = values in this interval not displayed. Lab Results Component Value Date HSTNT 4,276 () 10/19/2024 HSTNT 4,239 () 10/19/2024 HSTNT 4,171 () 10/19/2024 Lab Results Component Value Date PROBNP >70,000 (H) 10/18/2024 Lab Results Component Value Date HGBA1C 8.7 (H) 10/19/2024 Lab Results Component Value Date HGBA1C 8.7 (H) 10/19/2024 .. Lab Results Component Value Date CHOL 110 10/23/2024 Lab Results Component Value Date HDL 30 (L) 10/23/2024 No results found for: LDLCALC Lab Results Component Value Date TRIG 141 10/23/2024 No results found for: CHOLHDL ..No results found for: CKTOTAL , CKMB , CKMBINDEX Sign Bryant Gracia PA-C, 10/24/2024 7:35 AM * Donavon Rodgers MD - 10/24/2024 6:32 AM EST Hospital Medicine Progress Note LOS: 6 CODE:: Code Status Procedures Full Code Principal Problem: DKA (diabetic ketoacidosis) (HCC) (POA: Yes) Active Problems: NSTEMI (non-ST elevated myocardial infarction) (HCC) (POA: Unknown) COVID (POA: Yes) Heart failure with reduced ejection fraction (HCC) (POA: Unknown) Pulmonary edema with left heart failure (HCC) (POA: Unknown) Resolved Problems: Assessment & Plan Neymar Wilder is a 79 y.o. male with PMHx of insulin-dependent T2DM, HFrEF, CKD, HTN, who presented with to outside hospital with URI symptoms, transferred to [facility] for management of DKA and ICU, stable for downgrade to stepdown level care on 10/20/2024. Hospital course complicatedby NSTEMI on heparin drip, acute hypoxic respiratory failure. #NSTEMI #Acute decompensated HFrEF (LVEF 28%) #Pulmonary edmea and effusion s/p thoracentesis (10/19/24) #Moderate functional MR #HTN Patient presented with a proBNP of 70,000, and up trending troponins. EKG showed sinus rhythm with poor R wave progression and nonspecific T wave abnormalities. Troponin elevated at 1830 -> 4171, concerning for NSTEMI. He was transferred to for further evaluation and management. TTE on 10/18/2024 showed severely decreased LV systolic function with newly reduced LVEF of 28%. Cardiology was consulted. Chest x-ray worsening pulmonary edema. Bilateral thoracentesis were performed 10/19. - Cardiology following, appreciate recommendations - Follow-up pleural effusion cultures - Spot dose Lasix as needed - Strict I's and O's - Continue heparin drip per ACS protocol - Continue aspirin 81 mg daily - Continue atorvastatin 80 mg daily - Increase metoprolol succinate to 75 mg daily - Continue telemetry -- Patient is pending right and left heart cath. We received notification today that the patient will be taken to the [employer] and will remain n.p.o. until the procedure is over. The patient had increasing oxygen requirements overnight and repeat chest x-ray showed pulmonary edema. We discussed these findings with the [employer] as they would like to give gentle hydration to protect the patient's po radha functioning kidneys. He will also be given 40 mg of Lasix to help with his respiratory status and pulmonary edema. - Lasix 40 mg now at -IV hydration with D5NS #Diabetic ketoacidosis, resolved #Type 2 diabetes, insulin-dependent Patient presents from outside hospital due to URI symptoms and found to be in DKA with presenting lab values of 7.13, pCO2 of 25 and serum bicarb of 8. Patient was placed on DKA Glucomander protocol,however he had difficulties with his gap closing. Endocrinology was consulted, patient's beta hydroxybutyrate normalized with stable VBG of well-controlled blood glucose for which he was deemed stable to transfer to subcutaneous insulin. The patient has been n.p.o. pending [employer] and there is concern that he may open up his anion gap. We will continue to cover him with insulin and add D5 to hishydration -Add D5NS 50ml/hr - Lantus 18 units daily - Insulin sliding scale - Glucose checks before meals and at bedtime - Endocrine following, follow recommendations #COVID-positive Asymptomatic. - Monitor fever and WBC curve - Airborne precautions 10/19 #ALISA on stage CKD #Anion gap metabolic acidosis secondary to DKA Patient is at his baseline BUN and creatinine 80/4.8. Nephrology was consulted given the patient isCKD stage V and will need eventual cardiac cath. Per nephrology he currently does not need dialysis. --Follow up nephrology recommendations - Stop sodium bicarbonate tablets - Sodium citrate 30 mL 3 times daily - Darbepoetin alpha 60 mcg weekly - BMP daily - Strict I's and O's - Avoid nephrotoxic agents #Anemia -Darbepoetin 60 mcg subcutaneous weekly #Hypocalcemia worsening now down to 7.1. -Calcitriol 0.5 mcg daily - Calcium carbonate 500 mg twice daily - Follow-up PTH #Hypothyroidism - Continue home Synthroid 25 mcg daily VTE Time Out IMPROVE SCORE: 2 (10/18/2024 10:24 AM) Interpretation - High Risk Chemical Prophylaxis heparin (porcine) IV infusion 25,000 units in 500 mL 0.45% NaCl (premix) Intravenous Continuous heparin (porcine) 1000 unit/mL injection 2,100 Units Intravenous Every 6 hours PRN Mechanical Prophylaxis SCDs are ordered - Bilateral (Knee High)Mechanical VTE prophylaxis NOT ordered. Click here to orderif appropriate Mechanical Prophylaxis Contraindication: None - I will order SCDs Diet: cardiac Tele: yes Lines: PIV GI ppx: no DVT ppx: on therapeutic heparin Dispo: floors Expected Discharge Date: 10/26/2024 Subjective Overnight: Patient had questionable V. tach yesterday afternoon that was reported late. Electrolytes were repleted. Patient had increasing oxygen requirements overnight. Chest x-ray this morning revealed worsening pulmonary edema. Today: Patient seen and examined at this morning. He is now on supplemental oxygen. He states that he does feel more confused this morning I just need to wake up. Otherwise no complaints, no chest pain. Repeat chest x-ray with worsening pulmonary edema Objective Last Vitals Pulse:91,Resp:16,BP:(!) 151/71 (RN notified),SpO2:93 %,Weight:65.9 kg (145 lb 4.5 oz) Temp Last 24 hrs: Temp Min: 97.5 ??F (36.4 ??C) Max: 99.1 ??F (37.3 ??C) Last temp: 98.1 ??F (36.7 ??C) (Tympanic) Intake/Output Summary (Last 24 hours) at 10/24/2024 0632 Last data filed at 10/23/2024 1701 Gross per 24 hour Intake 10 ml Output 351 ml Net -341 ml Physical Exam Vitals reviewed. Constitutional: General: He is not in acute distress. Appearance: Normal appearance. He is not ill-appearing. HENT: Mouth/Throat: Mouth: Mucous membranes are moist. Pharynx: Oropharynx is clear. Eyes: Conjunctiva/sclera: Conjunctivae normal. Cardiovascular: Rate and Rhythm: Normal rate and regular rhythm. Pulses: Normal pulses. Heart sounds: Normal heart sounds. No murmur heard. No friction rub. No gallop. Pulmonary: Effort: Pulmonary effort is normal. No respiratory distress. Breath sounds: Normal breath sounds. No stridor. No wheezing, rhonchi or rales. Comments: No obvious crackles on exam Abdominal: General: Abdomen is flat. Bowel sounds are normal. There is no distension. Palpations: Abdomen is soft. There is no mass. Tenderness: There is no abdominal tenderness. Musculoskeletal: Right lower leg: No edema. Left lower leg: No edema. Skin: General: Skin is warm and dry. Coloration: Skin is not jaundiced or pale. Neurological: Mental Status: He is alert and oriented to person, place, and time. Relevant data reviewed Labs, Notes, Meds, and Radiology Notable labs are: White Blood Cell Count Date Value Ref Range Status 10/23/2024 11.2 (H) 4.0 - 11.0 Thou/uL Final Hemoglobin Date Value Ref Range Status 10/23/2024 9.6 (L) 13.0 - 17.7 g/dL Final Hematocrit Date Value Ref Range Status 10/23/2024 30.5 (L) 39.0 - 54.0 % Final Platelet Count Date Value Ref Range Status 10/23/2024 374 150 - 450 Thou/uL Final Lab Results Component Value Date NA 143 10/24/2024 K 4.4 10/24/2024 CL 107 10/24/2024 CO2 18 (L) 10/24/2024 BUN 67 (H) 10/24/2024 CREAT 3.8 (H) 10/24/2024 GLUC 128 (H) 10/24/2024 GLUC 155 (H) 10/24/2024 Lab Results Component Value Date CALCIUM 7.4 (L) 10/24/2024 MG 1.8 10/24/2024 PHOS 3.8 10/24/2024 Lab Results Component Value Date ALBUMIN 3.5 10/23/2024 Imaging Studies CXR Report reviewed and Image reviewed Hospital Course Neymar Wilder is a 79 y.o. male with PMHx of insulin-dependent diabetes, HFrEF, stage V CKD, hypertension who was admitted ICU level care due to DKA as well as an NSTEMI on a heparin drip. Hospital course complicated by AHRF likely 2/2 HF exacerbation less likely from COVID pneumonia given congestion on CXR and significant improvement in oxygen requirements following thoracentesis and diuresis. Patient is s/p bilateral thoracentesis on 10/19/24. He was transitioned off insulin drip to subcutaneous insulin and diabetic diet on 10/19/24. Although anion gap is elevated, it does not correlatewith persistently normal BHB levels or normal lactate; this was dicussed with endocrine and patientis no longer in DKA given normal BHB and stable VBG and well controlled BG levels. Otherwise, patient was noted to have an NSTEMI for which he remains on a heparin drip per cardiology recs. On medical floors, patient continues on heparin drip pending further workup per cardiology. Remainsasymptomatic from his COVID infection. Repeat BMPs with normal gap. 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 Donavon Rodgers MD PGY-1 Internal Medicine [place] Text Preferred Associated attestation - Neymar Mcfarland MD - 10/24/2024 4:23 PM EST Images from the original note were not included. Teaching Attending Inpatient Attestation: I have personally interviewed and examined the patient and reviewed Dr. Casillas 's note. I agree with the history, exam, assessment and plan as detailed in the Resident/Fellow's note with the following additions/exceptions/observations. Labs/Radiologic Studies were reviewed. WBC 12.4 Bicarb 19 Anion gap 19 BUN 68 Creatinine 4.0 Beta hydroxybutyrate elevated at 2.36 Glucose 128- 173 milligrams per deciliter 10/24/2024 Patient is awake alert oriented person place time situation. On heparin infusion. Overnight nursingreports desaturation into the low 80s requiring 3 L supplemental oxygen by oxime mask with SpO2 improving into the 90s. He has been n.p.o. since midnight and is awaiting right and left heart catheterization today. Chest radiograph shows lungs mildly hypoexpanded. Patchy bilateral opacities with central prominence. Trace pleural effusions bilaterally. Findings consistent with pulmonary edema. Cardiomediastinal silhouette enlarged. Agree with IV Lasix 40 mg today follow-up urine output goal net -2 liters daily. Strict I's and O's Gentle IV hydration D5 normal saline in preparation for right and left heart catheterization this afternoon to help lower the chance of contrast-induced nephropathy. Continue sodium citrate 30 mL 3 times daily. Agree with increase of Toprol-XL to 75 mg daily, Aldactone, SGL T2 inhibitor, YULY or ARB Arni on hold. No changes to calcitriol 0.5 mcg daily calcium carbonate 500 mg twice daily. Continue Synthroid forhypothyroidism 25 mcg daily. Continue airborne precautions COVID-positive. Postcardiac cath patient will transition to cardiac floor. Problem List Patient seen on 10/24/2024 Sign: Neymar Mcfarland MD 10/24/2024 4:04 PM * Marty Kent MD - 10/23/2024 2:02 PM EST Nephrology Progress Note Neymar Wilder Date 10/22/2024 Assessment & Plan PMHx of DM, HTN, CKD V (Bl creatinine 4.8-5.2 from May 2023 and March 2023) due to hypertensive and diabetic kidney disease (he follows with banking specialist in [place]), who presented intially to OSH with URI symptoms and increasing SOB. CXR demonsrated opacities peumonia versus pulmonary edema. Blood sugar found to be greater than 700 with severe anion gap metabolic acidosis with pH of 7.1, consistent with diabetic ketoacidosis. Beta hydroxybutyrate found to be 3.63 on admission. Additionally patient was tested positive for COVID with concern for NSTEMI. TTE on 10/18/2024 showed severely decreased LVSF with newly reduced LVEF of 28%. 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 Slowly improving Will continue sodium citrate 30 mL TID another day 3.)Anemia - darbe 60mcg subcutaneous weekly 4) hypocalcemia - calcitriol 0.5 a day and oral calcium 500 BID . 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 He feels very confident about his function even though he understands thereis risk here. He has been stable for so long with such reduced renal function that I do not think he really has been truly prepped for the meaning for dialysis in the long-term. We will endeavor to do this while he is here if we need to proceed. MOdality eduication given yesterdauy Notable Events/ HPI: Feels pretty well. No dizziness fatigue. Denies any chest pain. Eating OK No shortness of breath. Objective Allergy Allergies No Known Allergies Physical Exam Vitals Vitals: 10/21/24202810/21/24 2148 10/21/24 2347 10/22/24 0320 BP: (!) 140/67 (!) 152/65 (!) 152/67 (!) 161/74 BP Location: Right arm Right arm Right arm Patient Position: Lying Lying Lying Pulse: 77 79 79 Resp: 18 18 18 Temp: 99.3 ??F (37.4 ??C) 97.7 ??F (36.5 ??C) 96.7 ??F (35.9 ??C) TempSrc: Tympanic Tympanic Tympanic SpO2: 94% 95% 95% Weight: Height: Weight trend: Wt Readings from Last 3 Encounters: 10/21/24 69.5 kg (153 lb 3.5 oz) Intake/Output Summary (Last 24 hours) at 10/22/2024 0743 Last data filed at 10/22/2024 0700 Gross per 24 hour Intake 60 ml Output 1200 ml Net -1140 ml Appears in NAD Eyes anicteric , EOMI grossly intact Lungs breathing easily with no rales or wheezes noted Edema: none in legs Extr. No lesions NO myoclonus, no tremor Alert and crisp Relevant data reviewed Notable labs are: Latest Reference Range & Units 10/23/24 10:31 Calcium 8.7 - 10.5 mg/dL 7.4 (L) Calcium, Ionized 1.17 - 1.33 mmol/L 0.88 (L) Albumin 3.4 - 4.8 g/dL 3.5 PTH, Intact 15 - 65 pg/mL 579 (H) (L): Data is abnormally low (H): Data is abnormally high Lab Results Component Value Date PROBNP >70,000 (H) 10/18/2024 No results found for: ALBUMIN No results found for: TACROLIMUS No results found for: [id number] , TOTVOL , CRCLR , PERIOD No results found for: IRON , TIBC , IRONSAT , UIBC No results found for: BILITOT , AST , CK , CKMB Medications Medication/MAR Report: Medications Scheduled Medication Ordered Dose/Rate, Route, Frequency Last Action aspirin chewable tablet 81 mg 81 mg, PO, Daily Given, 81 mg at 10/21 0850 atorvastatin (LIPITOR) tablet 80 mg 80 mg, PO, Daily Given, 80 mg at 10/21 0850 chlorhexidine (PERIDEX) 0.12 % oral solution 15 mL 15 mL, MT, BID Given, 15 mL at 10/21 0850 insulin glargine (LANtus/SEMGLEE) 100 units/mL injection 20 Units 20 Units, SC, Daily Ordered insulin lispro (HumaLOG/ADMELOG) 100 units/mL injection 1-4 Units 1-4 Units, SC, NIGHTLY & 2AM Given, 1 Units at 10/208 insulin lispro (HumaLOG/ADMELOG) 100 units/mL injection 1-6 Units 1-6 Units, SC, TID with meals Given, 4 Units at 10/21 1358 insulin lispro (HumaLOG/ADMELOG) 100 units/mL injection 1-8 Units 1-8 Units, SC, TID with meals Given, 6 Units at 10/21 1859 levothyroxine (SYNTHROID, LEVOTHROID) tablet 25 mcg 25 mcg, PO, Daily 6AM Given, 25 mcg at 10/22 0533 metoPROLOL SUCCINATE (TOPROL-XL) 24 hr tablet 50 mg 50 mg, PO, Daily Given, 50 mg at 10/21 0850 senna-docusate (SENNA-S) 8.6-50 MG tablet 2 tablet 2 tablet, PO, Nightly Given, 2 tablet at 10/19 2007 sodium bicarbonate tablet 650 mg 650 mg, PO, BID Given, 650 mg at 10/21 2104 Sincerely, Marty Kent MD, [employer] Chronic Kidney Disease [facility] Attending Metal Roofing Mechanic, Partner, [facility] Continuous Medication Ordered Dose/Rate, Route, Frequency Last Action heparin (porcine) IV infusion 25,000 units in 500 mL 0.45% NaCl (premix) 12 Units/kg/hr, IV, Continuous New Bag, 16 Units/kg/hr at 10/21 1554 PRN Medication Ordered Dose/Rate, Route, Frequency Last Action bisacodyl (DULCOLAX) suppository 10 mg 10 mg, RE, Daily PRN Ordered dextrose 50 % solution 12.5 g (Or Linked Group #1) 12.5 g, IV, Q15 Min PRN Ordered dextrose 50 % solution 25 g (Or Linked Group #1) 25 g, IV, Q15 Min PRN Ordered glucagon (GLUCAGEN) injection 1 mg (Or Linked Group #1) 1 mg, IM, Daily PRN Ordered glucose (GLUTOSE 15) 40 % oral gel 37.5 g (Or Linked Group #1) 1 Tube, PO, Q15 Min PRN Ordered glucose (GLUTOSE 15) 40 % oral gel 75 g (Or Linked Group #1) 2 Tube, PO, Q15 Min PRN Ordered heparin (porcine) 1000 unit/mL injection 2,100 Units 30 Units/kg, IV, Q6H PRN Ordered lactulose (ENULOSE) 10 gm/15 mL solution 20 g 30 mL, PO, Q4H PRN Ordered naloxone (NARCAN) 0.4 mg/mL injection 0.4 mg 0.4 mg, IV, Q5 Min PRN Ordered Signed, Marty Kent MD * Bryant Gracia PA-C - 10/23/2024 9:00 AM EST Images from the original note were not included. 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 Presented on 10/18/2024 for URI sx (resolved)--> found to be in DKA.Initially in ICU, on insulin drip; hospital course was complicated NSTEMI for which he was started on heparin drip, also found to have new HFrEF, EF 28%. Pt tested COVID positive but asymptomatic, notherapies were pursued. Furthermore patient was also noted to have worsening ALISA however creatinineincreased to 5.2 was noted to have anion gap metabolic acidosis from DKA nephrology was following. Plan to do ischemic workup this admission. Assessment Acute hypoxic respiratory failure in the setting of COVID infection pulmonary congestion NSTEMI Acute on chronic decompensated HFrEF with EF of 28% Moderate functional MR Pulmonary edema with effusion status postthoracentesis ( 10/19/24) Type 2 diabetes diabetic ketoacidosis insulin-dependent ALISA on CKD stage V creatinine baseline 4.8-5.2 Anion gap metabolic acidosis secondary to DKA and CKD COVID-positive Hypothyroidism Patient noted to have NSVT TTE 10/18/24 LV severely dilated. Eccentric hypertrophy. Left LV systolic function severely decreased. The quantitative EF by 2D Poole biplane is 28% with anterior and anteroseptal wall are akinetic.. The apex is dyskinetic. There is evidence of diastolic dysfunction with elevated left atrial filling pressure. The left atrial cavity severely dilated. RV function is normal. RV systolic function isnormal. ERVSP 52mmHg. Moderate functional MR. There is mild TR. there is a large left pleural effusion Plan Acute decompensated HFrEF (LVEF 28%), NYHA class III, AHA stage C Moderate functional MR Bilateral pleural effusions, s/p bilateral thoracentesis 10/18 Acute on chronic decompensated HFpEF likely secondary to valvular heart disease Acute on chronic HFrEF, LVEF28% NYHA ClassII/III, Stage C Clinically appears mildly trace edema do not appreciate JVD monitor seem euvolemic TTE --LV severely dilated. Severely decreased LVEF RSVF normal, RV systolic pressure 52 moderate functional MR. 24 hr Net- 270 mL, Wt significant on his vacation since manage will do something to 68.5 yeah exactly suicidal get the garbageKg ( 151IB ) Since admission net-4314.2mL, Wt 68.9kg ( 152IB ) Diuresis on exam patient seem euvolemic we will hold off on Lasix intravascular concern fluid depleted ??GDMT: BB: Continue Toprol XL 50 mg daily MRA: On hold Aldactone 25 mg p.o. given worsening ALISA SGLT2 inhibitor :?? On hold until post cath YULY/ARB/ARNI : Given worsening ALISA on hold until post and given worsening ALISA Daily weights/ Daily renal panel Recommend optimizing electrolytes keep K >or =4.0 and Mg >or=2.0 Strict I's and O's, daily weight. Aggressive risk factor modification and lifestyle changes are encouraged, including optimization ofblood pressure and blood glucose levels, regular aerobic activity, weight loss, heart healthy diet and smoking cessation NSTEMI, NORRIS 34 NSTEMI seem to be multifactor type 1 vs type 2 NSVT Currently patient chest pain-free HsT: 1,830 -> 4,276 EKG demonstrates NSR with poor R wave progression and nonspecific T wave abnormalities TTE from 2021 demonstrated LVEF of 55-60%. Given new finding of reduced LVEF 28% on echocardiogram,recommend ischemic workup once metabolic derangements are resolved, consult IC and plan for cath tomorrow spoke with nephrology who is in agreement appreciate input Lázaro Score with 100cc of contrast: 57.3% risk of any post-PCI RADHA; 12.6% post- PCI requiring HD. Troponin elevation can be demand ischemia due to viral pneumonia / Covid and DKA. Cannot rule out IA, COVID myocarditis, or stress induced cardiomyopathy at this point. Medication regimen Plan for further ischemic workup once patient is medically stable, unless he develops chest pain, ventricular arrhythmias, or cardiogenic shock I have notified ICU team to evaluate the pt Given arrhythmias on telemetry patient asymptomatic chest pain-free however for now we will check CHEM 10 panel and ECG Patient will need RHC and LHC this admission currently awaiting for creatinine to improve somewhat follow-up nephrology recommendation Continue heparin gtt per ACS protocol Continue ASA 81 mg daily Continue atorvastatin 80 mg daily Continuous telemetry monitoring ALISA on CKD Creatinine peak of 5.2, down to 4.1 Nephrology following appreciate recommendations No indication for HD at this time Daily BMPs Appreciate input from nephrology to proceed with cath Still waiting on IC for evaluation HTN HLD Continue with atorvastatin 80 mg p.o.daily Continue with Toprol-XL 50 mg p.o. daily Will arrange for cardiology follow-up prior to discharge [facility] cardiology will continue to follow. Case discussed with attending, Dr. Contreras Plan was communicated to primary team dr Neymar Mcfarland /and the [facility] 3 team IMPROVE SCORE: Stepdown / ICU / CCU Stay: 1-->Stepdown / ICU / CCU stay Age > 60 yrs: 1--> Age > 60 years IMPROVE SCORE: 2 DVT PPX: Heparin drip CODE STATUS:full code HCP/Decision maker: Patient Telemetry:Yes This note was prepared using voice recognition software and direct typing. Please excuse inadvertent tank wagon driver or typing errors, or uncorrected word substitutions. Although every attempt has beenmade by the provider to proofread this document, occasional misspellings and typographical errors may still be present DVT PROPHYLAXIS Risk Assessment Scores and Dates: VTE Time Out IMPROVE SCORE: 2 (10/18/2024 10:24 AM) Interpretation - High Risk Chemical Prophylaxis heparin (porcine) IV infusion 25,000 units in 500 mL 0.45% NaCl (premix) Intravenous Continuous heparin (porcine) 1000 unit/mL injection 2,100 Units Intravenous Every 6 hours PRN Mechanical Prophylaxis SCDs are ordered - Bilateral (Knee High) Review of system Review of Systems Constitutional: Negative for activity change, appetite change, chills, diaphoresis, fatigue and fever. HENT: Negative for congestion, ear discharge, nosebleeds, rhinorrhea, sinus pressure, sinus pain, sneezing, sore throat and trouble swallowing. Eyes: Negative for pain, discharge, itching and visual disturbance. Respiratory: Negative for cough, choking, chest tightness, shortness of breath and wheezing. Cardiovascular: Negative for chest pain, palpitations and leg swelling. Gastrointestinal: Negative for abdominal distention, abdominal pain, blood in stool, constipation, diarrhea, nausea and vomiting. Endocrine: Negative for cold intolerance and heat intolerance. Genitourinary: Negative for difficulty urinating, dysuria, frequency, hematuria and urgency. Musculoskeletal: Negative for arthralgias, back pain, gait problem, joint swelling and myalgias. Skin: Negative for color change, pallor, rash and wound. Allergic/Immunologic: Negative for immunocompromised state. Neurological: Negative for dizziness, tremors, syncope, weakness, light- headedness, numbness and headaches. Hematological: Negative for adenopathy. Does not bruise/bleed easily. Psychiatric/Behavioral: Negative for agitation, confusion, self-injury and sleep disturbance. The patient is not nervous/anxious and is not hyperactive. Subjective Denies any chest pain, pleuritic chest pain, palpitation orthopnea Provided focused cardiology update to patient all questions and concerns were addressed Objective Telemetry Reviewed: Last Vitals Pulse:79,Resp:18,BP:(!) 140/67,SpO2:93 %,Weight:68.5 kg (151 lb 0.2 oz) Temp Last 24 hrs: Temp Min: 97.3 ??F (36.3 ??C) Max: 98.4 ??F (36.9 ??C) Intake/Output Summary (Last 24 hours) at 10/23/2024 1630 Last data filed at 10/23/2024 1500 Gross per 24 hour Intake 20 ml Output 650 ml Net -630 ml Physical Exam GENERAL: The patient appears laying in bed comfortably, in no acute cardio- pulmonary distress. Patient is afebrile. AAOx3 GENERAL: No acute distress. HEENT: Anicteric. No pallor. Moist oral membranes. NECK: Supple. No carotid bruits. JVP normal. CHEST: Nontender. Clear to auscultation bilaterally. CARDIAC: Regular rate and rhythm. Nondisplaced PMI. ABDOMEN: Soft. Nontender. Normal bowel sounds. EXTREMITIES: Warm. Well-perfused. No edema. VASCULAR: + distal pulses SKIN: Warm and dry. No rashes. NEUROLOGIC: Alert. Grossly nonfocal. Imaging Studies CXR Report reviewed Echocardiogram Report reviewed Angiogram Report reviewed Imaging Studies All appropriate imaging studies within the past 24 hours reviewed (actual images) Results for orders placed during the hospital encounter of 10/18/24 Echocardiogram (TTE) Comprehensive (Contrast PRN) Interpretation Summary The left ventricle is severely dilated. There is eccentric hypertrophy. Left ventricular systolic function is severely decreased. The quantitative EF by 2D Poole biplane is 28%. The anterior and anteroseptal garcia are akinetic. The apex is dyskinetic. There is evidence of diastolic dysfunction, with elevated left atrial filling pressure. The left atrial cavity is severely dilated. The right ventricle is normal in size. Right ventricular systolic function is normal. The estimatedright ventricular systolic pressure is 52 mmHg. There is moderate functional mitral regurgitation. There is mild tricuspid regurgitation. There is a large left pleural effusion. There is no previous study for comparison in our system. Dr. Pushpa Gallegos was notified by [place] text at 12:36 PM. Imaging Studies XR Chest 1 view-Portable Result Date: 10/19/2024 EXAMINATION: XR CHEST CLINICAL INFORMATION: hypoxic sob eval for pulm edema COMPARISON: Chest radiograph 10/18/2024 at 5:27 AM TECHNIQUE: Frontal views of the chest were obtained. FINDINGS: Lungs are slightly hypoexpanded. Interval worsening of patchy bilateral opacities with central and basilar predominance. Trace bilateral pleural effusions. No pneumothorax. The cardiomediastinal silhouette is unchanged from prior. No acute osseous abnormality. 1. Interval worsening of now moderate pulmonary edema. Superimposed infectious/inflammatory processcannot be entirely excluded. 2. Trace bilateral pleural effusions unchanged. Interpreted by: Mitchell Ascencio DO Technical Operations Vice President I personally reviewed the images and the resident's preliminary report and AGREE with the report as it is now presented (RADPAL1). XR Chest 1 view-Portable Result Date: 10/19/2024 EXAMINATION: XR CHEST CLINICAL INFORMATION: Post thoracentesis. COMPARISON: XR Chest 10/18/2024 TECHNIQUE: Frontal views of the chest was obtained. FINDINGS: Heart is mildly enlarged. Diffuse pulmonary edema is slightly improved compared to the prior exam. Left pleural effusion is improved. Improved pulmonary edema and left pleural effusion. US Guided Bedside Thoracentesis-Bilateral Result Date: 10/19/2024 PROCEDURE: Ultrasound-guided thoracentesis INDICATION: Bilateral pleural effusion. SPECIMEN: Specimen collected as requested. Sample left with bedside RN. ACCESS: 6 [place] Mebf-J-Aeduyjth closed needle/catheter system REQUESTING PRACTITIONER: Cheryl Blue MD CLINICIAN(S): CHELLY Gaitan CONSENT: Informed consent was obtained from the patient prior to the procedure. During this process, the procedure and potential alternatives were explained along with the intended outcome and benefits.The risks of the procedure, including the possibility of an unsuccessful procedure as well as the risk of not doing the procedure were discussed. the patient was given the opportunity to ask any quest ions regarding the procedure and appeared competent to make medical decisions. A signed consent form which documents this discussion was placed in the medical record. A timeout procedure was performed. HISTORY: Neymar Wilder is a 79 y.o. old male with a suspected bilateral pleural effusion. The patient was referred for an ultrasound-guided thoracentesis. MEDICATIONS: 10ml 1% lidocaine. TECHNIQUE/FINDINGS: Appropriate pre-procedure medical history and imaging studies were reviewed. The ultrasound machine was brought to the patients bedside. Ultrasound images of the right thorax were obtained to localize a moderate pleural effusion. Images were permanently saved to the record. An area of the patient's back was prepped and draped in the standard sterile fashion. 10 mL of 1% lidocaine was used to obtain local anesthesia of the skin and deeper tissues. A standard small bore needle was introduced to sample fluid and demonstrated a safe access route. There was no evidence of traversingadjacent organs or vascular structures. A 6 [place] Aerz-M-Bcxwsmiq closed needle/catheter system was utilized for access. 850 mL of clear devorah fluid was aspirated before drainage ceased. The catheter was removed and a sterile dressing applied. Ultrasound images of the left thorax were obtained to localize a moderate pleural effusion. Images were permanently saved to the record. An area of the patient's back was prepped and draped in the standard sterile fashion. 10 mL of 1% lidocaine was used to obtain local anesthesia of the skin and deeper tissues. A standard small bore needle was introduced to sample fluid and demonstrated a safe access route. There was no evidence of traversing adjacent organs or vascular structures. A 6 [place] Gilc-A-Thxknnsn closed needle/catheter system was utilized for access. 550 mL of clear devorah fluid was aspirated before drainage ceased. The catheter was removed and a sterile dressing applied. The patient tolerated the procedure well without evidence of complications. Successful bilateral ultrasound-guided diagnostic and therapeutic thoracentesis yielding 850 mL of clear devorah fluid from the right and 550 mL of clear devorah fluid from the left. This procedure was performed and dictated by CHELLY Gaitan Echocardiogram (TTE) Comprehensive (Contrast PRN) Result Date: 10/18/2024 The left ventricle is severely dilated. There is eccentric hypertrophy. Left ventricular systolic function is severely decreased. The quantitative EF by 2D Poole biplane is 28%. The anterior and anteroseptal garcia are akinetic. The apex is dyskinetic. There is evidence of diastolic dysfunction, with elevated left atrial filling pressure. The left atrial cavity is severely dilated. The right ventricle is normal in size. Right ventricular systolic function is normal. The estimated right ventricular systolic pressure is 52 mmHg. There is moderate functional mitral regurgitation. There is mild tricuspid regurgitation. There is a large left pleural effusion. There is no previous study for tal rison in our system. Dr. Pushpa Gallegos was notified by [place] text at 12:36 PM. XR Chest 1 view-Portable Result Date: 10/18/2024 EXAMINATION: XR CHEST CLINICAL INFORMATION: SOB COMPARISON: None TECHNIQUE: Frontal view of the chest FINDINGS: The lungs are well-expanded. Central vascular and coarse interstitial prominence. Hazy right basilar and dense retrocardiac opacities. Small left and suspected small right layering pleural effusions. Thickening of the minor fissure. Gabriele B-lines. No pneumothorax. The cardiomediastinalsilhouette is similar to prior. No acute osseous abnormalities. 1. Findings as above most consistent with pulmonary edema and left greater than right small bilateral pleural effusions. Please note, an underlying infectious/inflammatory process cannot be excluded.2. Hazy right basilar and dense retrocardiac opacities may represent layering effusion and/or atelectasis, respectively. Interpreted by: Prem Coffman MD Technical Operations Vice President I personally reviewed the images and the resident's preliminary report and AGREE with the report as it is now presented (RADPAL1). Recent Results (from the past 8760 hour(s)) ECG 12 lead Collection Time: 10/21/24 9:45 PM Result Value Status Ventricular rate 80 Final Atrial rate 80 Final P-R interval 146 Final QRS duration 86 Final Q-T interval 438 Final QTC calculation (Bazett) 506 Final P axis 52 Final R axis 59 Final T axis 229 Final Narrative Normal sinus rhythm Septal infarct , age undetermined ST & T wave abnormality, consider lateral ischemia Prolonged QT Abnormal ECG When compared with ECG of 19-Oct-2024 00:02, Septal infarct is now Present T wave inversion less evident in Anterior leads QT has lengthened Confirmed by MD Alex, [facility] ([id number]) on 10/22/2024 7:57:16 AM Medications Medications Scheduled Medication Ordered Dose/Rate, Route, Frequency Last Action aspirin chewable tablet 81 mg 81 mg, PO, Daily Given, 81 mg at 10/23 850 atorvastatin (LIPITOR) tablet 80 mg 80 mg, PO, Daily Given, 80 mg at 10/23 850 calcitRIOL (ROCALTROL) capsule 0.5 mcg 0.5 mcg, PO, Daily Given, 0.5 mcg at 10/23 1008 calcium carbonate (TUMS) chewable tablet 500 mg 500 mg, PO, BID Ordered chlorhexidine (PERIDEX) 0.12 % oral solution 15 mL 15 mL, MT, BID Given, 15 mL at 10/23 08 darbepoetin kelley (ARANESP) injection 60 mcg 60 mcg, SC, Weekly Given, 60 mcg at 10/23 143 insulin glargine (LANtus/SEMGLEE) 100 units/mL injection 18 Units 18 Units, SC, Daily Ordered insulin lispro (HumaLOG/ADMELOG) 100 units/mL injection 1-4 Units 1-4 Units, SC, NIGHTLY & 2AM Given, 1 Units at 10/20 2047 insulin lispro (HumaLOG/ADMELOG) 100 units/mL injection 1-6 Units 1-6 Units, SC, TID with meals Given, 1 Units at 10/23 1422 insulin lispro (HumaLOG/ADMELOG) 100 units/mL injection 1-8 Units 1-8 Units, SC, TID with meals Given, 2 Units at 10/23 1422 levothyroxine (SYNTHROID, LEVOTHROID) tablet 25 mcg 25 mcg, PO, Daily 6AM Given, 25 mcg at 10/23 0448 metoPROLOL SUCCINATE (TOPROL-XL) 24 hr tablet 50 mg 50 mg, PO, Daily Given, 50 mg at 10/23 0851 senna-docusate (SENNA-S) 8.6-50 MG tablet 2 tablet 2 tablet, PO, Nightly Given, 2 tablet at 10/19 2007 sodium citrate-citric acid (BICITRA) 500-334 mg/5 mL solution 30 mL 30 mL, PO, TID Given, 30 mL at 10/23 1423 Continuous Medication Ordered Dose/Rate, Route, Frequency Last Action heparin (porcine) IV infusion 25,000 units in 500 mL 0.45% NaCl (premix) 12 Units/kg/hr, IV, Continuous Rate Change - High Risk Medication, 15 Units/kg/hr at 10/23 1044 PRN Medication Ordered Dose/Rate, Route, Frequency Last Action bisacodyl (DULCOLAX) suppository 10 mg 10 mg, RE, Daily PRN Ordered dextrose 50 % solution 12.5 g (Or Linked Group #1) 12.5 g, IV, Q15 Min PRN Ordered dextrose 50 % solution 25 g (Or Linked Group #1) 25 g, IV, Q15 Min PRN Ordered glucagon (GLUCAGEN) injection 1 mg (Or Linked Group #1) 1 mg, IM, Daily PRN Ordered glucose (GLUTOSE 15) 40 % oral gel 37.5 g (Or Linked Group #1) 1 Tube, PO, Q15 Min PRN Ordered glucose (GLUTOSE 15) 40 % oral gel 75 g (Or Linked Group #1) 2 Tube, PO, Q15 Min PRN Ordered heparin (porcine) 1000 unit/mL injection 2,100 Units 30 Units/kg, IV, Q6H PRN Ordered lactulose (ENULOSE) 10 gm/15 mL solution 20 g 30 mL, PO, Q4H PRN Ordered naloxone (NARCAN) 0.4 mg/mL injection 0.4 mg 0.4 mg, IV, Q5 Min PRN Ordered Relevant data reviewed Results from last 7 days Lab Units 10/23/24 1259 10/23/24 1031 10/23/24 0836 10/23/24 0605 10/22/24 0910 10/22/24 0812 10/21/24 0803 10/21/24 0309 SODIUM mmol/L -- -- -- 147* -- 145 -- 140 POTASSIUM mmol/L -- -- -- 4.0 -- 4.4 -- 4.5 CHLORIDE mmol/L -- -- -- 110* -- 110* -- 109* CO2 mmol/L -- -- -- 18* -- 17* -- 15* BUN mg/dL -- -- -- 74* -- 82* -- 83* CREATININE mg/dL -- -- -- 4.1* -- 4.3* -- 4.3* CALCIUM mg/dL -- 7.4* -- 7.3* -- 7.1* -- 7.1* GLUCOSE mg/dL -- -- -- 66 -- 124* -- 193* GLUCOSE, POC mg/dL 158* -- 82 -- < > -- < > -- EGFR -- -- -- 14* -- 13* -- 13* ALBUMIN g/dL -- 3.5 -- -- -- -- -- -- < > = values in this interval not displayed. Lab Results Component Value Date MG 1.8 10/23/2024 Results from last 7 days Lab Units 10/23/24 0605 10/22/24 0812 10/21/24 0309 10/19/24 2359 10/19/24 0120 10/18/24 0516 WHITE BLOOD CELL COUNT Thou/uL 11.2* 10.7 10.8 11.5* < > 11.5* HEMOGLOBIN g/dL 9.6* 9.4* 8.9* 8.9* < > 8.5* HEMATOCRIT % 30.5* 30.3* 28.9* 28.6* < > 27.7* PLATELET COUNT Thou/uL 374 337 299 271 < > 265 NEUTROS PCT % -- -- -- 80.7 -- 86.0 LYMPHS PCT % -- -- -- 11.6 -- 9.2 MONOS PCT % -- -- -- 6.7 -- 4.3 EOS PCT % -- -- -- 0.2 -- 0.0 BASOS PCT % -- -- -- 0.2 -- 0.1 < > = values in this interval not displayed. Lab Results Component Value Date HSTNT 4,276 () 10/19/2024 HSTNT 4,239 () 10/19/2024 HSTNT 4,171 () 10/19/2024 Lab Results Component Value Date PROBNP >70,000 (H) 10/18/2024 Lab Results Component Value Date HGBA1C 8.7 (H) 10/19/2024 Lab Results Component Value Date HGBA1C 8.7 (H) 10/19/2024 .. Lab Results Component Value Date CHOL 110 10/23/2024 Lab Results Component Value Date HDL 30 (L) 10/23/2024 No results found for: LDLCALC Lab Results Component Value Date TRIG 141 10/23/2024 No results found for: CHOLHDL ..No results found for: CKTOTAL , CKMB , CKMBINDEX Sign Bryant Gracia PA-C, 10/23/2024 4:30 PM * Tangela Reed PA-C - 10/23/2024 8:45 AM EST Endocrinology Progress Note [facility] - Endocrinology - Medicine Today's Date: 10/23/2024 Admit Date: 10/18/2024 5:10 AM Consult requested by: Neymar Mcfarland MD Principal Problem: DKA (diabetic ketoacidosis) (HCC) (POA: Yes) Active Problems: NSTEMI (non-ST elevated myocardial infarction) (HCC) (POA: Unknown) COVID (POA: Yes) Heart failure with reduced ejection fraction (HCC) (POA: Unknown) Pulmonary edema with left heart failure (HCC) (POA: Unknown) Resolved Problems: Assessment & Plan Assessment: Neymar Wilder is a 79 y.o. male with T2DM (8.7%-10/19/2023), CKD5, HTN, who presented to OSH with cough, chills, dyspnea, found to have PNA, transferred to with concerns of NSTEMI, DKA. Endocrinology consulted for diabetes Hypoglycemic on serum glucose this morning, NPO, basal decreased as below. Hospital Plan Decrease to Lantus Insulin 18 units daily. Continue Meal Carb Humalog Insulin Scale: 1-8 units, 3 times a day with meals. See scale below. ICR 1: 9. Continue Meal Correction Humalog Insulin Scale: 1-6 units, 3 times a day with meals. See scale below. ISF 1: 40 > 140. Continue Nightly/0200 Correction Humalog Insulin Scale: 1-4 units. See scale below. ISF 1: 50 > 200. Glucose checks AC/HS & 0200. Notify endocrine team in the daytime or primary team overnight if BG <70 or >350 mg/dL. Hypoglycemia protocol in place. Please endocrinology team updated on discharge planning including date, disposition. Discharge Planning: Pending needs - patient on basal only at home, would prefer to coordinate similar regimen for discharge. Noted to be on Januvia - would prefer to switch to Tradjenta given renal function. Previous 24 Hours TDD: 31 units (Glargine 20, lispro 11). BG Range: 66-165. Diet: Diet NPO; Meds Steroids: None. Drips: None. History Diabetes History Diabetes Management: Diaz Akers MD (appears to be PCP). Pre-Admission Regimen: Lantus SoloStar 10-14 units - patient reports he takes what is written on the pen, unable to clarify exact dose, recorded as 15 units daily in chart Januvia 100 mg daily History of Present Illness Patient developed malaise, dyspnea, cough over 2-3 days, presented to OSH, found to be COVID positive Reports that he was not eating very much during this time, as he did not feel good At OSH, BHB elevated to 5.88 Hospital Course 10/18: On presentation, serum glucose 569, bicarb 8, BHB 3.63, AG 28, serum osmolality 359, started on insulin drip 10/19: Endo consulted Subjective Chief Complaint Diabetes Management Subjective Patient reports feeling well, has been eating well overall. History Review of Systems Constitutional: Negative for activity change and appetite change. Objective Inpatient Orders aspirin, 81 mg, Oral, Daily atorvastatin, 80 mg, Oral, Daily chlorhexidine, 15 mL, Mouth/Throat, BID insulin glargine, 18 Units, Subcutaneous, Daily insulin lispro, 1-4 Units, Subcutaneous, NIGHTLY & 2AM insulin lispro, 1-6 Units, Subcutaneous, TID with meals insulin lispro, 1-8 Units, Subcutaneous, TID with meals levothyroxine, 25 mcg, Oral, Daily 6AM metoPROLOL SUCCINATE, 50 mg, Oral, Daily senna-docusate, 2 tablet, Oral, Nightly sodium citrate-citric acid, 30 mL, Oral, TID No Known Allergies Scales Carb Scale Pre-meal Correction Nighttime Correction (Nightly and 2 AM) Please document the amount of carbs consumed in the comments section when insulin is given. MEAL BOLUS, hold if NPO or if eats < 10 grams of carbs Give 1 unit if eats/drinks 10-17 grams of carbs Give 2 units if eats/drinks 18-26 grams of carbs Give 3 units if eats/drinks 27-35 grams of carbs Give 4 units if eats/drinks 36-44 grams of carbs Give 5 units if eats/drinks 45-53 grams of carbs Give 6 units if eats/drinks 54-62 grams of carbs Give 7 units if eats/drinks 63-71 grams of carbs Give 8 units if eats/drinks at least 72 grams of carbs DO NOT HOLD IF NPO Notify provider if Blood Glucose LESS than 70 For BG 141-180 administer 1 unit For BG 181-220 administer 2 units For BG 221-260 administer 3 units For BG 261-300 administer 4 units For BG 301-340 administer 5 units For BG MORE than 340, administer 6 units AND notify provider DO NOT HOLD IF NPO Notify provider if Blood Glucose LESS than 70 For BG 201-250 administer 1 unit For BG 251-300 administer 2 units For BG 301-350 administer 3 units For BG MORE than 350, administer 4 units AND notify provider Physical Vitals: 10/23/24 0051 10/23/24 0400 10/23/24 0600 10/23/24 0742 BP: (!) 154/72 (!) 141/67 (!) 147/73 BP Location: Right arm Right arm Right arm Patient Position: Lying Lying Lying Pulse: 75 75 74 Resp: 18 18 18 Temp: 97.7 ??F (36.5 ??C) 97.3 ??F (36.3 ??C) 97.5 ??F (36.4 ??C) TempSrc: Tympanic Tympanic Tympanic SpO2: 97% (!) 90% 92% Weight: 68.5 kg (151 lb 0.2 oz) Height: Intake/Output Summary (Last 24 hours) at 10/23/2024 0845 Last data filed at 10/23/2024 0753 Gross per 24 hour Intake 40 ml Output 300 ml Net -260 ml Physical Exam Vitals reviewed. Constitutional: General: He is not in acute distress. HENT: Head: Normocephalic and atraumatic. Mouth/Throat: Mouth: Mucous membranes are moist. Eyes: General: No scleral icterus. Conjunctiva/sclera: Conjunctivae normal. Pulmonary: Effort: Pulmonary effort is normal. Neurological: Mental Status: He is alert and oriented to person, place, and time. Labs Lab Results Component Value Date HGBA1C 8.7 (H) 10/19/2024 Recent Labs 10/22/24 1812 10/22/24 2040 10/23/24 0159 10/23/24 0605 10/23/24 0836 GLUC 165* 145* 83 66 82 Lab Results Component Value Date ANIONGAP 19 (H) 10/23/2024 ANIONGAP 18 (H) 10/22/2024 ANIONGAP 16 10/21/2024 During the day of the visit, 42 minutes spent was spent on the following: Examining the patient Chart review in preparation for the visit Documenting in the patient record Reviewing Labs & Radiology Signed Tangela Reed PA-C Endocrinology - Medicine 10/23/2024 3:46 PM * Donavon Rodgers MD - 10/23/2024 6:11 AM EST Hospital Medicine Progress Note LOS: 5 CODE:: Code Status Procedures Full Code Principal Problem: DKA (diabetic ketoacidosis) (HCC) (POA: Yes) Active Problems: NSTEMI (non-ST elevated myocardial infarction) (HCC) (POA: Unknown) COVID (POA: Yes) Heart failure with reduced ejection fraction (HCC) (POA: Unknown) Pulmonary edema with left heart failure (HCC) (POA: Unknown) Resolved Problems: Assessment & Plan Neymar Wilder is a 79 y.o. male with PMHx of insulin-dependent T2DM, HFrEF, CKD, HTN, who presented with to outside hospital with URI symptoms, transferred to [facility] for management of DKA and ICU, stable for downgrade to stepdown level care on 10/20/2024. Hospital course complicatedby NSTEMI on heparin drip, acute hypoxic respiratory failure. #NSTEMI #Acute decompensated HFrEF (LVEF 28%) #Pulmonary edmea and effusion s/p thoracentesis (10/19/24) #Moderate functional MR #HTN Patient presented with a proBNP of 70,000, and up trending troponins. EKG showed sinus rhythm with poor R wave progression and nonspecific T wave abnormalities. Troponin elevated at 1830 -> 4171, concerning for NSTEMI. He was transferred to for further evaluation and management. TTE on 10/18/2024 showed severely decreased LV systolic function with newly reduced LVEF of 28%. Cardiology was consulted. Chest x-ray worsening pulmonary edema. Bilateral thoracentesis were performed 10/19. - Cardiology following, appreciate recommendations - Follow-up pleural effusion cultures - Spot dose Lasix as needed - Strict I's and O's - Continue heparin drip per ACS protocol - Continue aspirin 81 mg daily - Continue atorvastatin 80 mg daily - Continue metoprolol succinate 50 mg daily - Continue telemetry -- Patient is pending right and left heart cath. However not able to perform procedure today due toavailability. Cardiology believes they will be able to take him on 10/24. However we will make him n.p.o. today at midnight in case he is can be added on tomorrow. GDMT: BB: Continue Toprol XL 50 mg daily MRA: On hold Aldactone 25 mg p.o. given worsening ALISA SGLT2 inhibitor :?? On hold until post cath YULY/ARB/ARNI : Given worsening ALISA on hold until post and given worsening ALISA Daily weights/ Daily renal panel Recommend optimizing electrolytes keep K >or =4.0 and Mg >or=2.0 Strict I's and O's, daily weight. Aggressive risk factor modification and lifestyle changes are encouraged, including optimization ofblood pressure and blood glucose levels, regular aerobic activity, weight loss, heart healthy diet and smoking cessation #Diabetic ketoacidosis, resolved #Type 2 diabetes, insulin-dependent Patient presents from outside hospital due to URI symptoms and found to be in DKA with presenting lab values of 7.13, pCO2 of 25 and serum bicarb of 8. Patient was placed on DKA Glucomander protocol,however he had difficulties with his gap closing. Endocrinology was consulted, patient's beta hydroxybutyrate normalized with stable VBG of well-controlled blood glucose for which he was deemed stable to transfer to subcutaneous insulin. - Lantus 20 units daily - Insulin sliding scale - Glucose checks before meals and at bedtime - Endocrine following, follow recommendations #COVID-positive Asymptomatic. - Monitor fever and WBC curve - Airborne precautions 10/19 #ALISA on stage CKD #Anion gap metabolic acidosis secondary to DKA Patient is at his baseline BUN and creatinine 80/4.8. Nephrology was consulted given the patient isCKD stage V and will need eventual cardiac cath. Per nephrology he currently does not need dialysis. --Follow up nephrology recommendations - Stop sodium bicarbonate tablets - Sodium citrate 30 mL 3 times daily - Darbepoetin alpha 60 mcg weekly - BMP daily - Strict I's and O's - Avoid nephrotoxic agents #Anemia -Darbepoetin 60 mcg subcutaneous weekly #Hypocalcemia worsening now down to 7.1. -Calcitriol 0.5 mcg daily - Calcium carbonate 500 mg twice daily - Follow-up PTH #Hypothyroidism - Continue home Synthroid 25 mcg daily VTE Time Out IMPROVE SCORE: 2 (10/18/2024 10:24 AM) Interpretation - High Risk Chemical Prophylaxis heparin (porcine) IV infusion 25,000 units in 500 mL 0.45% NaCl (premix) Intravenous Continuous heparin (porcine) 1000 unit/mL injection 2,100 Units Intravenous Every 6 hours PRN Mechanical Prophylaxis SCDs are ordered - Bilateral (Knee High)Mechanical VTE prophylaxis NOT ordered. Click here to orderif appropriate Mechanical Prophylaxis Contraindication: None - I will order SCDs Diet: cardiac Tele: yes Lines: PIV GI ppx: no DVT ppx: on therapeutic heparin Dispo: floors Expected Discharge Date: 10/25/2024 Subjective Overnight: No acute overnight events. Patient remains on heparin drip and made NPO at midnight for planned LHC/RHC today Today: Patient seen and examined at this morning. On room air. Denies any chest pain or shortness of breath. He states he is doing well and awaits the cath. Objective Last Vitals Pulse:75,Resp:18,BP:(!) 141/67 (rn notified),SpO2:(!) 90 %,Weight:69.5 kg (153 lb 3.5 oz) Temp Last 24 hrs: Temp Min: 97.3 ??F (36.3 ??C) Max: 98.2 ??F (36.8 ??C) Last temp: 97.3 ??F (36.3 ??C) (Tympanic) Intake/Output Summary (Last 24 hours) at 10/23/2024 0611 Last data filed at 10/23/2024 0051 Gross per 24 hour Intake 30 ml Output 900 ml Net -870 ml Physical Exam Vitals reviewed. Constitutional: General: He is not in acute distress. Appearance: Normal appearance. He is not ill-appearing. HENT: Mouth/Throat: Mouth: Mucous membranes are moist. Pharynx: Oropharynx is clear. Eyes: Conjunctiva/sclera: Conjunctivae normal. Cardiovascular: Rate and Rhythm: Normal rate and regular rhythm. Pulses: Normal pulses. Heart sounds: Normal heart sounds. No murmur heard. No friction rub. No gallop. Pulmonary: Effort: Pulmonary effort is normal. No respiratory distress. Breath sounds: Normal breath sounds. No stridor. No wheezing, rhonchi or rales. Abdominal: General: Abdomen is flat. Bowel sounds are normal. There is no distension. Palpations: Abdomen is soft. There is no mass. Tenderness: There is no abdominal tenderness. Musculoskeletal: Right lower leg: No edema. Left lower leg: No edema. Skin: General: Skin is warm and dry. Coloration: Skin is not jaundiced or pale. Neurological: Mental Status: He is alert and oriented to person, place, and time. Relevant data reviewed Labs, Notes, Meds, and Radiology Notable labs are: White Blood Cell Count Date Value Ref Range Status 10/22/2024 10.7 4.0 - 11.0 Thou/uL Final Hemoglobin Date Value Ref Range Status 10/22/2024 9.4 (L) 13.0 - 17.7 g/dL Final Hematocrit Date Value Ref Range Status 10/22/2024 30.3 (L) 39.0 - 54.0 % Final Platelet Count Date Value Ref Range Status 10/22/2024 337 150 - 450 Thou/uL Final Lab Results Component Value Date NA 145 10/22/2024 K 4.4 10/22/2024 CL 110 (H) 10/22/2024 CO2 17 (L) 10/22/2024 BUN 82 (H) 10/22/2024 CREAT 4.3 (H) 10/22/2024 GLUC 83 10/23/2024 GLUC 124 (H) 10/22/2024 Lab Results Component Value Date CALCIUM 7.1 (L) 10/22/2024 MG 1.7 10/22/2024 PHOS 4.4 10/19/2024 No results found for: AST , ALT , ALKPHOS , BILITOT , BILIDIR , ALBUMIN , PROT Imaging Studies CXR Report reviewed and Image reviewed Hospital Course Neymar Wilder is a 79 y.o. male with PMHx of insulin-dependent diabetes, HFrEF, stage V CKD, hypertension who was admitted ICU level care due to DKA as well as an NSTEMI on a heparin drip. Hospital course complicated by AHRF likely 2/2 HF exacerbation less likely from COVID pneumonia given congestion on CXR and significant improvement in oxygen requirements following thoracentesis and diuresis. Patient is s/p bilateral thoracentesis on 10/19/24. He was transitioned off insulin drip to subcutaneous insulin and diabetic diet on 10/19/24. Although anion gap is elevated, it does not correlatewith persistently normal BHB levels or normal lactate; this was dicussed with endocrine and patientis no longer in DKA given normal BHB and stable VBG and well controlled BG levels. Otherwise, patient was noted to have an NSTEMI for which he remains on a heparin drip per cardiology recs. On medical floors, patient continues on heparin drip pending further workup per cardiology. Remainsasymptomatic from his COVID infection. Repeat BMPs with normal gap. 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 Donavon Rodgers MD PGY-1 Internal Medicine [place] Text Preferred Associated attestation - Neymar Mcfarland MD - 10/23/2024 10:23 PM EST Teaching Attending Inpatient Attestation: I have personally interviewed and examined the patient and reviewed Dr. Rodgers's note. I agree withthe history, exam, assessment and plan as detailed in the Resident/Fellow's note with the followingadditions/exceptions/observations. Labs/Radiologic Studies were reviewed. Overnight uneventful. He is awake alert oriented x 4 forgetful at times. he has no complaints of chest pain palpitations shortness of breath nausea vomiting or diaphoresis. Lantus has been decreased to 18 units daily plus his meal carb Humalog insulin. On sodium citrate 30 mL 3 times daily for an additional day. On Calcitrol 0.5 mg a day plus oral calcium 500 mg twice daily. PTH was greater than 500. Secondaryhyperparathyroidism. Problem List Patient seen on 10/23/2024 Sign: Neymar Mcfarland MD 10/23/2024 10:18 PM * Marty Kent MD - 10/22/2024 12:31 PM EST Nephrology Progress Note Neymar Wilder Date 10/22/2024 Assessment & Plan PMHx of DM, HTN, CKD V (Bl creatinine 4.8-5.2 from May 2023 and March 2023) due to hypertensive and diabetic kidney disease (he follows with Dr Henrik Bird in [place]), who presented intially to OSH with URI symptoms and increasing SOB. CXR demonsrated opacities peumonia versus pulmonary edema. Blood sugar found to be greater than 700 with severe anion gap metabolic acidosis with pH of 7.1, consistent with diabetic ketoacidosis. Beta hydroxybutyrate found to be 3.63 on admission. Additionally patient was tested positive for COVID with concern for NSTEMI. TTE on 10/18/2024 showed severelydecreased LVSF with newly reduced LVEF of 28%. 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 Lázaro Score with 100cc of contrast: 57.3% risk of any post-PCI RADHA; 12.6% post- PCI requiring HD. I have explained to him again that there is some risk here that the test could damage or shut down his kidneys requiring dialysis treatment both in the short- term and long-term. I told him that his options are limited if that happens He understands this risk but given the potential for devastating heart disease that could be lethalthere is a with risk benefit to consider here 2.) small increased anion gap metabolic acidosis Due to DKA on admission. Not unstable not worsening Plan: Will continue sodium citrate 30 mL TID. 3.)Anemia - darbe 60mcg subcutaneous weekly 4) hypocalcemia -worsening now down to 7.1. I do not have an albumin to compare and it adjust begincalcitriol 0.5 a day and oral calcium 500 BID This is seen commonly in renal disease. Lets check PTH as well I think that he has had chronic kidney disease or quite a long time and has follow-up with a banking specialist in [place]. He feels very confident about his function even though he understands thereis risk here. He has been stable for so long with such reduced renal function that I do not think he really has been truly prepped for the meaning for dialysis in the long-term. We will endeavor to do this while he is here if we need to proceed. Notable Events/ HPI: Feels pretty well. No dizziness fatigue. Denies any chest pain. No shortness of breath. Objective Allergy Allergies No Known Allergies Physical Exam Vitals Vitals: 10/21/24202810/21/24 2148 10/21/24 2347 10/22/24 0320 BP: (!) 140/67 (!) 152/65 (!) 152/67 (!) 161/74 BP Location: Right arm Right arm Right arm Patient Position: Lying Lying Lying Pulse: 77 79 79 Resp: 18 18 18 Temp: 99.3 ??F (37.4 ??C) 97.7 ??F (36.5 ??C) 96.7 ??F (35.9 ??C) TempSrc: Tympanic Tympanic Tympanic SpO2: 94% 95% 95% Weight: Height: Weight trend: Wt Readings from Last 3 Encounters: 10/21/24 69.5 kg (153 lb 3.5 oz) Intake/Output Summary (Last 24 hours) at 10/22/2024 0743 Last data filed at 10/22/2024 0700 Gross per 24 hour Intake 60 ml Output 1200 ml Net -1140 ml Appears in NAD Eyes anicteric , EOMI grossly intact Lungs breathing easily with no rales or wheezes noted RRR Edema: none in legs Extr. No lesions NO myoclonus, no tremor Relevant data reviewed Notable labs are: Recent Labs 10/19/24 1134 10/19/24 1547 10/19/24 2359 10/21/24 0309 NA 142 143 140 140 K 4.3 4.4 4.4 4.5 CO2 14* 15* 14* 15* ANIONGAP 18* 19* 20* 16 CL 110* 109* 106 109* BUN 84* 81* 86* 83* CREAT 4.8* 4.6* 4.7* 4.3* EGFR 12* 12* 12* 13* CALCIUM 7.0* 7.0* 7.2* 7.1* MG -- -- 1.6 -- PHOS -- -- 4.4 -- Recent Labs 10/19/24 1425 10/19/24 2359 10/21/24 0309 WBC -- 11.5* 10.8 HGB 9.9* 8.9* 8.9* HCT 32.3* 28.6* 28.9* PLT -- 271 299 Lab Results Component Value Date PROBNP >70,000 (H) 10/18/2024 No results found for: ALBUMIN No results found for: TACROLIMUS No results found for: [id number] , TOTVOL , CRCLR , PERIOD No results found for: IRON , TIBC , IRONSAT , UIBC No results found for: BILITOT , AST , CK , CKMB Medications Medication/MAR Report: Medications Scheduled Medication Ordered Dose/Rate, Route, Frequency Last Action aspirin chewable tablet 81 mg 81 mg, PO, Daily Given, 81 mg at 10/21 0850 atorvastatin (LIPITOR) tablet 80 mg 80 mg, PO, Daily Given, 80 mg at 10/21 0850 chlorhexidine (PERIDEX) 0.12 % oral solution 15 mL 15 mL, MT, BID Given, 15 mL at 10/21 0850 insulin glargine (LANtus/SEMGLEE) 100 units/mL injection 20 Units 20 Units, SC, Daily Ordered insulin lispro (HumaLOG/ADMELOG) 100 units/mL injection 1-4 Units 1-4 Units, SC, NIGHTLY & 2AM Given, 1 Units at 10/20 2047 insulin lispro (HumaLOG/ADMELOG) 100 units/mL injection 1-6 Units 1-6 Units, SC, TID with meals Given, 4 Units at 10/21 1358 insulin lispro (HumaLOG/ADMELOG) 100 units/mL injection 1-8 Units 1-8 Units, SC, TID with meals Given, 6 Units at 10/21 1859 levothyroxine (SYNTHROID, LEVOTHROID) tablet 25 mcg 25 mcg, PO, Daily 6AM Given, 25 mcg at 10/22 0533 metoPROLOL SUCCINATE (TOPROL-XL) 24 hr tablet 50 mg 50 mg, PO, Daily Given, 50 mg at 10/21 0850 senna-docusate (SENNA-S) 8.6-50 MG tablet 2 tablet 2 tablet, PO, Nightly Given, 2 tablet at 10/19 2007 sodium bicarbonate tablet 650 mg 650 mg, PO, BID Given, 650 mg at 10/21 2105 Sincerely, Marty Kent MD, [employer] Chronic Kidney Disease [facility] Attending Metal Roofing Mechanic, Partner, [facility] Continuous Medication Ordered Dose/Rate, Route, Frequency Last Action heparin (porcine) IV infusion 25,000 units in 500 mL 0.45% NaCl (premix) 12 Units/kg/hr, IV, Continuous New Bag, 16 Units/kg/hr at 10/21 1554 PRN Medication Ordered Dose/Rate, Route, Frequency Last Action bisacodyl (DULCOLAX) suppository 10 mg 10 mg, RE, Daily PRN Ordered dextrose 50 % solution 12.5 g (Or Linked Group #1) 12.5 g, IV, Q15 Min PRN Ordered dextrose 50 % solution 25 g (Or Linked Group #1) 25 g, IV, Q15 Min PRN Ordered glucagon (GLUCAGEN) injection 1 mg (Or Linked Group #1) 1 mg, IM, Daily PRN Ordered glucose (GLUTOSE 15) 40 % oral gel 37.5 g (Or Linked Group #1) 1 Tube, PO, Q15 Min PRN Ordered glucose (GLUTOSE 15) 40 % oral gel 75 g (Or Linked Group #1) 2 Tube, PO, Q15 Min PRN Ordered heparin (porcine) 1000 unit/mL injection 2,100 Units 30 Units/kg, IV, Q6H PRN Ordered lactulose (ENULOSE) 10 gm/15 mL solution 20 g 30 mL, PO, Q4H PRN Ordered naloxone (NARCAN) 0.4 mg/mL injection 0.4 mg 0.4 mg, IV, Q5 Min PRN Ordered * Bryant Gracia PA-C - 10/22/2024 10:41 AM EST Images from the original note were not included. 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 Presented on 10/18/2024 for URI sx (resolved)--> found to be in DKA.Initially in ICU, on insulin drip; hospital course was complicated NSTEMI for which he was started on heparin drip, also found to have new HFrEF, EF 28%. Pt tested COVID positive but asymptomatic, notherapies were pursued. Furthermore patient was also noted to have worsening ALISA however creatinineincreased to 5.2 was noted to have anion gap metabolic acidosis from DKA nephrology was following. Plan to do ischemic workup this admission. Assessment Acute hypoxic respiratory failure in the setting of COVID infection pulmonary congestion NSTEMI Acute on chronic decompensated HFrEF with EF of 28% Moderate functional MR Pulmonary edema with effusion status postthoracentesis ( 10/19/24) Type 2 diabetes diabetic ketoacidosis insulin-dependent ALISA on CKD stage V creatinine baseline 4.8-5.2 Anion gap metabolic acidosis secondary to DKA and CKD COVID-positive Hypothyroidism TTE 10/18/24 LV severely dilated. Eccentric hypertrophy. Left LV systolic function severely decreased. The quantitative EF by 2D Poole biplane is 28% with anterior and anteroseptal wall are akinetic.. The apex is dyskinetic. There is evidence of diastolic dysfunction with elevated left atrial filling pressure. The left atrial cavity severely dilated. RV function is normal. RV systolic function isnormal. ERVSP 52mmHg. Moderate functional MR. There is mild TR. there is a large left pleural effusion Plan Acute decompensated HFrEF (LVEF 28%), NYHA class III, AHA stage C Moderate functional MR Bilateral pleural effusions, s/p bilateral thoracentesis 10/18 Acute on chronic decompensated HFpEF likely secondary to valvular heart disease Acute on chronic HFrEF, LVEF28% NYHA ClassII/III, Stage C Clinically appears mildly trace edema do not appreciate JVD monitor seem euvolemic TTE LV severely dilated. Severely decreased LVEF RSVF normal, RV systolic pressure 52 moderate functional MR. ProBNP 70.000 24 hr Net-1140 mL, Wt pending Since admission net-4384.2 mL, Wt 68.9kg ( 152IB ) Diuresis can consider spot Lasix 20 as needed however currently seems euvolemic ??GDMT: BB: Continue Toprol XL 50 mg daily MRA: On hold Aldactone 25 mg p.o. given worsening ALISA SGLT2 inhibitor :?? On hold until post cath YULY/ARB/ARNI : Given worsening ALISA on hold until post and given worsening ALISA Daily weights/ Daily renal panel Recommend optimizing electrolytes keep K >or =4.0 and Mg >or=2.0 Strict I's and O's, daily weight. Aggressive risk factor modification and lifestyle changes are encouraged, including optimization ofblood pressure and blood glucose levels, regular aerobic activity, weight loss, heart healthy diet and smoking cessation NSTEMI, NORRIS 34 NSTEMI seem to be multifactor type 1 vs type 2 Currently patient chest pain-free HsT: 1,830 -> 4,276 EKG demonstrates NSR with poor R wave progression and nonspecific T wave abnormalities TTE from 2021 demonstrated LVEF of 55-60%. Given new finding of reduced LVEF 28% on echocardiogram,recommend ischemic workup once metabolic derangements are resolved, consult IC and plan for cath tomorrow spoke with nephrology who is in agreement appreciate input Lázaro Score with 100cc of contrast: 57.3% risk of any post-PCI RADHA; 12.6% post- PCI requiring HD. Troponin elevation can be demand ischemia due to viral pneumonia / Covid and DKA. Cannot rule out IA, COVID myocarditis, or stress induced cardiomyopathy at this point. Medication regimen Plan for further ischemic workup once patient is medically stable, unless he develops chest pain, ventricular arrhythmias, or cardiogenic shock Continue heparin gtt per ACS protocol Continue ASA 81 mg daily Continue atorvastatin 80 mg daily Continuous telemetry monitoring ALISA on CKD Creatinine peak of 5.2, down to 4.3 Nephrology following appreciate recommendations No indication for HD at this time Daily BMPs Appreciate input from nephrology to proceed with cath HTN HLD Continue with atorvastatin 80 mg p.o.daily Continue with Toprol-XL 50 mg p.o. daily Will arrange for cardiology follow-up prior to discharge [facility] cardiology will continue to follow. Case discussed with attending, Dr. Contreras Plan was communicated to primary team dr Neymar Mcfarland /Donavon Rodgers IMPROVE SCORE: Stepdown / ICU / CCU Stay: 1-->Stepdown / ICU / CCU stay Age > 60 yrs: 1--> Age > 60 years IMPROVE SCORE: 2 DVT PPX: Heparin drip CODE STATUS:full code HCP/Decision maker: Patient Telemetry:Yes This note was prepared using voice recognition software and direct typing. Please excuse inadvertent tank wagon driver or typing errors, or uncorrected word substitutions. Although every attempt has beenmade by the provider to proofread this document, occasional misspellings and typographical errors may still be present DVT PROPHYLAXIS Risk Assessment Scores and Dates: VTE Time Out IMPROVE SCORE: 2 (10/18/2024 10:24 AM) Interpretation - High Risk Chemical Prophylaxis heparin (porcine) IV infusion 25,000 units in 500 mL 0.45% NaCl (premix) Intravenous Continuous heparin (porcine) 1000 unit/mL injection 2,100 Units Intravenous Every 6 hours PRN Mechanical Prophylaxis SCDs are ordered - Bilateral (Knee High) Subjective Denies any chest pain, pleuritic chest pain, palpitation orthopnea Provided focused cardiology update to patient all questions and concerns were addressed Objective Telemetry Reviewed: NSR with hr 84 noted to have PVCs Last Vitals Pulse:78,Resp:18,BP:137/75,SpO2:95 %,Weight:69.5 kg (153 lb 3.5 oz) Temp Last 24 hrs: Temp Min: 96.7 ??F (35.9 ??C) Max: 99.3 ??F (37.4 ??C) Intake/Output Summary (Last 24 hours) at 10/22/2024 1041 Last data filed at 10/22/2024 0945 Gross per 24 hour Intake 50 ml Output 1200 ml Net -1150 ml Physical Exam GENERAL: The patient appears laying in bed comfortably, in no acute cardio- pulmonary distress. Patient is afebrile. AAOx3 GENERAL: No acute distress. HEENT: Anicteric. No pallor. Moist oral membranes. NECK: Supple. No carotid bruits. JVP normal. CHEST: Nontender. Clear to auscultation bilaterally. CARDIAC: Regular rate and rhythm. Nondisplaced PMI. ABDOMEN: Soft. Nontender. Normal bowel sounds. EXTREMITIES: Warm. Well-perfused. No edema. VASCULAR: + distal pulses SKIN: Warm and dry. No rashes. NEUROLOGIC: Alert. Grossly nonfocal. Physical Exam Imaging Studies CXR Report reviewed Echocardiogram Report reviewed Imaging Studies All appropriate imaging studies within the past 24 hours reviewed (actual images) Results for orders placed during the hospital encounter of 10/18/24 Echocardiogram (TTE) Comprehensive (Contrast PRN) Interpretation Summary The left ventricle is severely dilated. There is eccentric hypertrophy. Left ventricular systolic function is severely decreased. The quantitative EF by 2D Poole biplane is 28%. The anterior and anteroseptal garcia are akinetic. The apex is dyskinetic. There is evidence of diastolic dysfunction, with elevated left atrial filling pressure. The left atrial cavity is severely dilated. The right ventricle is normal in size. Right ventricular systolic function is normal. The estimatedright ventricular systolic pressure is 52 mmHg. There is moderate functional mitral regurgitation. There is mild tricuspid regurgitation. There is a large left pleural effusion. There is no previous study for comparison in our system. Dr. Pushpa Gallegos was notified by [place] text at 12:36 PM. Imaging Studies XR Chest 1 view-Portable Result Date: 10/19/2024 EXAMINATION: XR CHEST CLINICAL INFORMATION: hypoxic sob eval for pulm edema COMPARISON: Chest radiograph 10/18/2024 at 5:27 AM TECHNIQUE: Frontal views of the chest were obtained. FINDINGS: Lungs are slightly hypoexpanded. Interval worsening of patchy bilateral opacities with central and basilar predominance. Trace bilateral pleural effusions. No pneumothorax. The cardiomediastinal silhouette is unchanged from prior. No acute osseous abnormality. 1. Interval worsening of now moderate pulmonary edema. Superimposed infectious/inflammatory processcannot be entirely excluded. 2. Trace bilateral pleural effusions unchanged. Interpreted by: Mitchell Ascencio DO Technical Operations Vice President I personally reviewed the images and the resident's preliminary report and AGREE with the report as it is now presented ([email or web address]). XR Chest 1 view-Portable Result Date: 10/19/2024 EXAMINATION: XR CHEST CLINICAL INFORMATION: Post thoracentesis. COMPARISON: XR Chest 10/18/2024 TECHNIQUE: Frontal views of the chest was obtained. FINDINGS: Heart is mildly enlarged. Diffuse pulmonary edema is slightly improved compared to the prior exam. Left pleural effusion is improved. Improved pulmonary edema and left pleural effusion. US Guided Bedside Thoracentesis-Bilateral Result Date: 10/19/2024 PROCEDURE: Ultrasound-guided thoracentesis INDICATION: Bilateral pleural effusion. SPECIMEN: Specimen collected as requested. Sample left with bedside RN. ACCESS: 6 [place] Oxre-R-Nzcprrkx closed needle/catheter system REQUESTING PRACTITIONER: Cheryl Blue MD CLINICIAN(S): CHELLY Gaitan CONSENT: Informed consent was obtained from the patient prior to the procedure. During this process, the procedure and potential alternatives were explained along with the intended outcome and benefits.The risks of the procedure, including the possibility of an unsuccessful procedure as well as the risk of not doing the procedure were discussed. the patient was given the opportunity to ask any quest ions regarding the procedure and appeared competent to make medical decisions. A signed consent form which documents this discussion was placed in the medical record. A timeout procedure was performed. HISTORY: Neymar Wilder is a 79 y.o. old male with a suspected bilateral pleural effusion. The patient was referred for an ultrasound-guided thoracentesis. MEDICATIONS: 10ml 1% lidocaine. TECHNIQUE/FINDINGS: Appropriate pre-procedure medical history and imaging studies were reviewed. The ultrasound machine was brought to the patients bedside. Ultrasound images of the right thorax were obtained to localize a moderate pleural effusion. Images were permanently saved to the record. An area of the patient's back was prepped and draped in the standard sterile fashion. 10 mL of 1% lidocaine was used to obtain local anesthesia of the skin and deeper tissues. A standard small bore needle was introduced to sample fluid and demonstrated a safe access route. There was no evidence of traversingadjacent organs or vascular structures. A 6 [place] Inyb-Y-Ajoponep closed needle/catheter system was utilized for access. 850 mL of clear devorah fluid was aspirated before drainage ceased. The catheter was removed and a sterile dressing applied. Ultrasound images of the left thorax were obtained to localize a moderate pleural effusion. Images were permanently saved to the record. An area of the patient's back was prepped and draped in the standard sterile fashion. 10 mL of 1% lidocaine was used to obtain local anesthesia of the skin and deeper tissues. A standard small bore needle was introduced to sample fluid and demonstrated a safe access route. There was no evidence of traversing adjacent organs or vascular structures. A 6 [place] Twhd-U-Buvgwuzs closed needle/catheter system was utilized for access. 550 mL of clear devorah fluid was aspirated before drainage ceased. The catheter was removed and a sterile dressing applied. The patient tolerated the procedure well without evidence of complications. Successful bilateral ultrasound-guided diagnostic and therapeutic thoracentesis yielding 850 mL of clear devorah fluid from the right and 550 mL of clear devorah fluid from the left. This procedure was performed and dictated by CHELLY Gaitan Echocardiogram (TTE) Comprehensive (Contrast PRN) Result Date: 10/18/2024 The left ventricle is severely dilated. There is eccentric hypertrophy. Left ventricular systolic function is severely decreased. The quantitative EF by 2D Poole biplane is 28%. The anterior and anteroseptal garcia are akinetic. The apex is dyskinetic. There is evidence of diastolic dysfunction, with elevated left atrial filling pressure. The left atrial cavity is severely dilated. The right ventricle is normal in size. Right ventricular systolic function is normal. The estimated right ventricular systolic pressure is 52 mmHg. There is moderate functional mitral regurgitation. There is mild tricuspid regurgitation. There is a large left pleural effusion. There is no previous study for tal rison in our system. Dr. Pushpa Gallegos was notified by [place] text at 12:36 PM. XR Chest 1 view-Portable Result Date: 10/18/2024 EXAMINATION: XR CHEST CLINICAL INFORMATION: SOB COMPARISON: None TECHNIQUE: Frontal view of the chest FINDINGS: The lungs are well-expanded. Central vascular and coarse interstitial prominence. Hazy right basilar and dense retrocardiac opacities. Small left and suspected small right layering pleural effusions. Thickening of the minor fissure. Gabriele B-lines. No pneumothorax. The cardiomediastinalsilhouette is similar to prior. No acute osseous abnormalities. 1. Findings as above most consistent with pulmonary edema and left greater than right small bilateral pleural effusions. Please note, an underlying infectious/inflammatory process cannot be excluded.2. Hazy right basilar and dense retrocardiac opacities may represent layering effusion and/or atelectasis, respectively. Interpreted by: Prem Coffman MD Technical Operations Vice President I personally reviewed the images and the resident's preliminary report and AGREE with the report as it is now presented ([email or web address]). Recent Results (from the past 8760 hour(s)) ECG 12 lead Collection Time: 10/21/24 9:45 PM Result Value Status Ventricular rate 80 Final Atrial rate 80 Final P-R interval 146 Final QRS duration 86 Final Q-T interval 438 Final QTC calculation (Bazett) 506 Final P axis 52 Final R axis 59 Final T axis 229 Final Narrative Normal sinus rhythm Septal infarct , age undetermined ST & T wave abnormality, consider lateral ischemia Prolonged QT Abnormal ECG When compared with ECG of 19-Oct-2024 00:02, Septal infarct is now Present T wave inversion less evident in Anterior leads QT has lengthened Confirmed by MD Alex, [facility] ([id number]) on 10/22/2024 7:57:16 AM Medications Medications Scheduled Medication Ordered Dose/Rate, Route, Frequency Last Action aspirin chewable tablet 81 mg 81 mg, PO, Daily Given, 81 mg at 10/22 945 atorvastatin (LIPITOR) tablet 80 mg 80 mg, PO, Daily Given, 80 mg at 10/22 945 chlorhexidine (PERIDEX) 0.12 % oral solution 15 mL 15 mL, MT, BID Given, 15 mL at 10/22 943 insulin glargine (LANtus/SEMGLEE) 100 units/mL injection 20 Units 20 Units, SC, Daily Given, 20 Units at 10/22 943 insulin lispro (HumaLOG/ADMELOG) 100 units/mL injection 1-4 Units 1-4 Units, SC, NIGHTLY & 2AM Given, 1 Units at 10/20 2047 insulin lispro (HumaLOG/ADMELOG) 100 units/mL injection 1-6 Units 1-6 Units, SC, TID with meals Given, 4 Units at 10/21 1357 insulin lispro (HumaLOG/ADMELOG) 100 units/mL injection 1-8 Units 1-8 Units, SC, TID with meals Given, 5 Units at 10/22 944 levothyroxine (SYNTHROID, LEVOTHROID) tablet 25 mcg 25 mcg, PO, Daily 6AM Given, 25 mcg at 10/22 532 metoPROLOL SUCCINATE (TOPROL-XL) 24 hr tablet 50 mg 50 mg, PO, Daily Given, 50 mg at 10/22 945 senna-docusate (SENNA-S) 8.6-50 MG tablet 2 tablet 2 tablet, PO, Nightly Given, 2 tablet at 10/19 2007 sodium citrate-citric acid (BICITRA) 500-334 mg/5 mL solution 30 mL 30 mL, PO, TID Ordered Continuous Medication Ordered Dose/Rate, Route, Frequency Last Action heparin (porcine) IV infusion 25,000 units in 500 mL 0.45% NaCl (premix) 12 Units/kg/hr, IV, Continuous New Bag, 16 Units/kg/hr at 10/21 1554 PRN Medication Ordered Dose/Rate, Route, Frequency Last Action bisacodyl (DULCOLAX) suppository 10 mg 10 mg, RE, Daily PRN Ordered dextrose 50 % solution 12.5 g (Or Linked Group #1) 12.5 g, IV, Q15 Min PRN Ordered dextrose 50 % solution 25 g (Or Linked Group #1) 25 g, IV, Q15 Min PRN Ordered glucagon (GLUCAGEN) injection 1 mg (Or Linked Group #1) 1 mg, IM, Daily PRN Ordered glucose (GLUTOSE 15) 40 % oral gel 37.5 g (Or Linked Group #1) 1 Tube, PO, Q15 Min PRN Ordered glucose (GLUTOSE 15) 40 % oral gel 75 g (Or Linked Group #1) 2 Tube, PO, Q15 Min PRN Ordered heparin (porcine) 1000 unit/mL injection 2,100 Units 30 Units/kg, IV, Q6H PRN Ordered lactulose (ENULOSE) 10 gm/15 mL solution 20 g 30 mL, PO, Q4H PRN Ordered naloxone (NARCAN) 0.4 mg/mL injection 0.4 mg 0.4 mg, IV, Q5 Min PRN Ordered Relevant data reviewed Results from last 7 days Lab Units 10/22/24 0910 10/22/24 0812 10/22/24 0123 10/21/24 0803 10/21/24 0309 10/20/24 0215 10/19/24 1579 SODIUM mmol/L -- 145 -- -- 140 -- 140 POTASSIUM mmol/L -- 4.4 -- -- 4.5 -- 4.4 CHLORIDE mmol/L -- 110* -- -- 109* -- 106 CO2 mmol/L -- 17* -- -- 15* -- 14* BUN mg/dL -- 82* -- -- 83* -- 86* CREATININE mg/dL -- 4.3* -- -- 4.3* -- 4.7* CALCIUM mg/dL -- 7.1* -- -- 7.1* -- 7.2* GLUCOSE mg/dL -- 124* -- -- 193* -- 183* GLUCOSE, POC mg/dL 139* -- 122* < > -- < > -- EGFR -- 13* -- -- 13* -- 12* < > = values in this interval not displayed. Lab Results Component Value Date MG 1.7 10/22/2024 Results from last 7 days Lab Units 10/22/24 0812 10/21/24 0309 10/19/24 2359 10/19/24 0120 10/18/24 0516 WHITE BLOOD CELL COUNT Thou/uL 10.7 10.8 11.5* < > 11.5* HEMOGLOBIN g/dL 9.4* 8.9* 8.9* < > 8.5* HEMATOCRIT % 30.3* 28.9* 28.6* < > 27.7* PLATELET COUNT Thou/uL 337 299 271 < > 265 NEUTROS PCT % -- -- 80.7 -- 86.0 LYMPHS PCT % -- -- 11.6 -- 9.2 MONOS PCT % -- -- 6.7 -- 4.3 EOS PCT % -- -- 0.2 -- 0.0 BASOS PCT % -- -- 0.2 -- 0.1 < > = values in this interval not displayed. Lab Results Component Value Date HSTNT 4,276 () 10/19/2024 HSTNT 4,239 () 10/19/2024 HSTNT 4,171 () 10/19/2024 Lab Results Component Value Date PROBNP >70,000 (H) 10/18/2024 Lab Results Component Value Date HGBA1C 8.7 (H) 10/19/2024 Lab Results Component Value Date HGBA1C 8.7 (H) 10/19/2024 ..No results found for: CHOL No results found for: HDL No results found for: LDLCALC No results found for: TRIG No results found for: CHOLHDL ..No results found for: CKTOTAL , CKMB , CKMBINDEX Sign Bryant Gracia PA-C, 10/22/2024 10:41 AM * Donavon Rodgers MD - 10/22/2024 8:58 AM EST Hospital Medicine Progress Note LOS: 4 CODE:: Code Status Procedures Full Code Principal Problem: DKA (diabetic ketoacidosis) (HCC) (POA: Yes) Resolved Problems: Assessment & Plan Neymar Wilder is a 79 y.o. male with PMHx of insulin-dependent T2DM, HFrEF, CKD, HTN, who presented with to outside hospital with URI symptoms, transferred to [facility] for management of DKA and ICU, stable for downgrade to stepdown level care on 10/20/2024. Hospital course complicatedby NSTEMI on heparin drip, acute hypoxic respiratory failure. #NSTEMI #Acute decompensated HFrEF (LVEF 28%) #Pulmonary edmea and effusion s/p thoracentesis (10/19/24) #Moderate functional MR #HTN Patient presented with a proBNP of 70,000, and up trending troponins. EKG showed sinus rhythm with poor R wave progression and nonspecific T wave abnormalities. Troponin elevated at 1830 -> 4171, concerning for NSTEMI. He was transferred to for further evaluation and management. TTE on 10/18/2024 showed severely decreased LV systolic function with newly reduced LVEF of 28%. Cardiology was consulted. Chest x-ray worsening pulmonary edema. Bilateral thoracentesis were performed 10/19. 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 Patient was placed on DKA Glucomander protocol,however he had difficulties with his gap closing. Endocrinology was consulted, patient's beta hydroxybutyrate normalized with stable VBG of well-controlled blood glucose for which he was deemed stable to transfer to subcutaneous insulin. - Lantus units daily - Insulin sliding scale - Glucose checks before meals and at bedtime - Endocrine following, follow recommendations #COVID-positive Asymptomatic. - Monitor fever and WBC curve - Airborne precautions 10/19 #ALISA on stage CKD #Anion gap metabolic acidosis secondary to DKA Patient is at his baseline BUN and creatinine 80/4.8. Nephrology was consulted given the patient isCKD stage V and will need eventual cardiac cath. Per nephrology he currently does not need dialysis. - Sodium bicarbonate tablets 650 mg twice daily, increase as per nephrology, can consider once Bicarb is around --Follow up nephrology recommendations - BMP daily - Strict I's and O's - Avoid nephrotoxic agents #Hypothyroidism - Continue home Synthroid 25 mcg daily VTE Time Out IMPROVE SCORE: 2 (10/18/2024 10:24 AM) Interpretation - High Risk Chemical Prophylaxis heparin (porcine) IV infusion 25,000 units in 500 mL 0.45% NaCl (premix) Intravenous Continuous heparin (porcine) 1000 unit/mL injection 2,100 Units Intravenous Every 6 hours PRN Mechanical Prophylaxis SCDs are ordered - Bilateral (Knee High)Mechanical VTE prophylaxis NOT ordered. Click here to orderif appropriate Mechanical Prophylaxis Contraindication: None - I will order SCDs Diet: cardiac Tele: yes Lines: PIV GI ppx: no DVT ppx: on therapeutic heparin Dispo: floors Expected Discharge Date: 10/23/2024 Subjective Overnight: Increasing shortness of breath and crackles on exam. No chest pain. IV Lasix 20 mg givento good effect. Today: Patient seen and examined at this morning. On room air. Denies any chest pain or shortness of breath. Objective Last Vitals Pulse:74,Resp:18,BP:132/63,SpO2:95 %,Weight:69.5 kg (153 lb 3.5 oz) Temp Last 24 hrs: Temp Min: 96.7 ??F (35.9 ??C) Max: 99.3 ??F (37.4 ??C) Last temp: 98.2 ??F (36.8 ??C) (Tympanic) Intake/Output Summary (Last 24 hours) at 10/22/2024 0858 Last data filed at 10/22/2024 0700 Gross per 24 hour Intake 40 ml Output 1200 ml Net -1160 ml Physical Exam Vitals reviewed. Constitutional: General: He is not in acute distress. Appearance: Normal appearance. He is not ill-appearing. HENT: Mouth/Throat: Mouth: Mucous membranes are moist. Pharynx: Oropharynx is clear. Eyes: Conjunctiva/sclera: Conjunctivae normal. Cardiovascular: Rate and Rhythm: Normal rate and regular rhythm. Pulses: Normal pulses. Heart sounds: Normal heart sounds. No murmur heard. No friction rub. No gallop. Pulmonary: Effort: Pulmonary effort is normal. No respiratory distress. Breath sounds: Normal breath sounds. No stridor. No wheezing, rhonchi or rales. Abdominal: General: Abdomen is flat. Bowel sounds are normal. There is no distension. Palpations: Abdomen is soft. There is no mass. Tenderness: There is no abdominal tenderness. Musculoskeletal: Right lower leg: No edema. Left lower leg: No edema. Skin: General: Skin is warm and dry. Coloration: Skin is not jaundiced or pale. Neurological: Mental Status: He is alert and oriented to person, place, and time. Relevant data reviewed Labs, Notes, Meds, and Radiology Notable labs are: White Blood Cell Count Date Value Ref Range Status 10/22/2024 10.7 4.0 - 11.0 Thou/uL Final Hemoglobin Date Value Ref Range Status 10/22/2024 9.4 (L) 13.0 - 17.7 g/dL Final Hematocrit Date Value Ref Range Status 10/22/2024 30.3 (L) 39.0 - 54.0 % Final Platelet Count Date Value Ref Range Status 10/22/2024 337 150 - 450 Thou/uL Final Lab Results Component Value Date NA 145 10/22/2024 K 4.4 10/22/2024 CL 110 (H) 10/22/2024 CO2 17 (L) 10/22/2024 BUN 82 (H) 10/22/2024 CREAT 4.3 (H) 10/22/2024 GLUC 124 (H) 10/22/2024 Lab Results Component Value Date CALCIUM 7.1 (L) 10/22/2024 MG 1.7 10/22/2024 PHOS 4.4 10/19/2024 No results found for: AST , ALT , ALKPHOS , BILITOT , BILIDIR , ALBUMIN , PROT Imaging Studies CXR Report reviewed and Image reviewed Hospital Course Neymar Baum Edgaralana is a 79 y.o. male with PMHx of insulin-dependent diabetes, HFrEF, stage V CKD, hypertension who was admitted ICU level care due to DKA as well as an NSTEMI on a heparin drip. Hospital course complicated by AHRF likely 2/2 HF exacerbation less likely from COVID pneumonia given congestion on CXR and significant improvement in oxygen requirements following thoracentesis and diuresis. Patient is s/p bilateral thoracentesis on 10/19/24. He was transitioned off insulin drip to subcutaneous insulin and diabetic diet on 10/19/24. Although anion gap is elevated, it does not correlatewith persistently normal BHB levels or normal lactate; this was dicussed with endocrine and patientis no longer in DKA given normal BHB and stable VBG and well controlled BG levels. Otherwise, patient was noted to have an NSTEMI for which he remains on a heparin drip per cardiology recs. On medical floors, patient continues on heparin drip pending further workup per cardiology. Remainsasymptomatic from his COVID infection. Repeat BMPs with normal gap. 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 Donavon Rodgers MD PGY-1 Internal Medicine [place] Text Preferred Associated attestation - Neymar Mcfarland MD - 10/22/2024 2:45 PM EST Teaching Attending Inpatient Attestation: I have personally interviewed and examined the patient and reviewed Dr. Rodgers's note. I agree withthe history, exam, assessment and plan as detailed in the Resident/Fellow's note with the followingadditions/exceptions/observations. Labs/Radiologic Studies were reviewed. Serum bicarb 17 Anion gap 18 up from 16 yesterday. Creatinine 4.3 Calcium 7.1-no albumin for correction Mr. Wilder appeared comfortable this afternoon and was in no respiratory distress. He is awake alert oriented to person place, knew the date and day but admitted to reading it from the wall calendar. No shortness of breath, chest pain, chest pressure, palpitations nausea or vomiting. He is hungry and eating lunch at the time. Creatinine is 4.3 with a baseline variable between 4.8 and 5.2. Anion gap 18 up from 16 yesterday. He is on sodium citrate 30 mL 3 times daily as recommended by nephrology. He is on Calcitrol 0.5 mg daily along with oral calcium supplementation 500 mg twice daily with a PTH level pending He will be n.p.o. after midnight for both right and left heart cardiac catheterization to occur tomorrow October 23. He is on Lantus 20 units subcu daily plus meal carbohydrate Humalog correction scale per endocrinology. Problem List Patient seen on 10/22/2024 Sign: Neymar Mcfarland MD 10/22/2024 2:30 PM * Tangela Reed PA-C - 10/22/2024 8:44 AM EST Endocrinology Progress Note PA - Endocrinology - Medicine Today's Date: 10/22/2024 Admit Date: 10/18/2024 5:10 AM Consult requested by: Neymar Mcfarland MD Principal Problem: DKA (diabetic ketoacidosis) (HCC) (POA: Yes) Resolved Problems: Assessment & Plan Assessment: Neymar Wilder is a 79 y.o. male with T2DM (8.7%-10/19/2023), CKD5, HTN, who presented to OSH with cough, chills, dyspnea, found to have PNA, transferred to with concerns of NSTEMI, DKA. Endocrinology consulted for diabetes Fasting BG within goal overnight, will continue current basal dose. Patient planned for L/RHC tomorrow, will adjust regimen for NPO status. Hospital Plan Continue Lantus Insulin 20 units daily. Continue Meal Carb Humalog Insulin Scale: 1-8 units, 3 times a day with meals. See scale below. ICR 1: 9. Continue Meal Correction Humalog Insulin Scale: 1-6 units, 3 times a day with meals. See scale below. ISF 1: 40 > 140. Continue Nightly/0200 Correction Humalog Insulin Scale: 1-4 units. See scale below. ISF 1: 50 > 200. Glucose checks AC/HS & 0200. Notify endocrine team in the daytime or primary team overnight if BG <70 or >350 mg/dL. Hypoglycemia protocol in place. Please endocrinology team updated on discharge planning including date, disposition. Discharge Planning: Pending needs - patient on basal only at home, would prefer to coordinate similar regimen for discharge. Noted to be on Januvia - would prefer to switch to Tradjenta given renal function. Previous 24 Hours TDD: 45 units (Glargine 20, lispro 25). BG Range: 140-270. Diet: Diet Diabetic/ Calorie Controlled; Carb Counting 60g/meal 8045-5051 kcal Steroids: None. Drips: None. History Diabetes History Diabetes Management: Diaz Akers MD (appears to be PCP). Pre-Admission Regimen: Lantus SoloStar 10-14 units - patient reports he takes what is written on the pen, unable to clarify exact dose, recorded as 15 units daily in chart Januvia 100 mg daily History of Present Illness Patient developed malaise, dyspnea, cough over 2-3 days, presented to OSH, found to be COVID positive Reports that he was not eating very much during this time, as he did not feel good At OSH, BHB elevated to 5.88 Hospital Course 10/18: On presentation, serum glucose 569, bicarb 8, BHB 3.63, AG 28, serum osmolality 359, started on insulin drip 10/19: Endo consulted Subjective Chief Complaint Diabetes Management Subjective Patient visiting with provider when seen. History Review of Systems Unable to perform ROS: Other Objective Inpatient Orders aspirin, 81 mg, Oral, Daily atorvastatin, 80 mg, Oral, Daily chlorhexidine, 15 mL, Mouth/Throat, BID insulin glargine, 20 Units, Subcutaneous, Daily insulin lispro, 1-4 Units, Subcutaneous, NIGHTLY & 2AM insulin lispro, 1-6 Units, Subcutaneous, TID with meals insulin lispro, 1-8 Units, Subcutaneous, TID with meals levothyroxine, 25 mcg, Oral, Daily 6AM metoPROLOL SUCCINATE, 50 mg, Oral, Daily senna-docusate, 2 tablet, Oral, Nightly sodium bicarbonate, 650 mg, Oral, BID No Known Allergies Scales Carb Scale Pre-meal Correction Nighttime Correction (Nightly and 2 AM) Please document the amount of carbs consumed in the comments section when insulin is given. MEAL BOLUS, hold if NPO or if eats < 10 grams of carbs Give 1 unit if eats/drinks 10-17 grams of carbs Give 2 units if eats/drinks 18-26 grams of carbs Give 3 units if eats/drinks 27-35 grams of carbs Give 4 units if eats/drinks 36-44 grams of carbs Give 5 units if eats/drinks 45-53 grams of carbs Give 6 units if eats/drinks 54-62 grams of carbs Give 7 units if eats/drinks 63-71 grams of carbs Give 8 units if eats/drinks at least 72 grams of carbs DO NOT HOLD IF NPO Notify provider if Blood Glucose LESS than 70 For BG 141-180 administer 1 unit For BG 181-220 administer 2 units For BG 221-260 administer 3 units For BG 261-300 administer 4 units For BG 301-340 administer 5 units For BG MORE than 340, administer 6 units AND notify provider DO NOT HOLD IF NPO Notify provider if Blood Glucose LESS than 70 For BG 201-250 administer 1 unit For BG 251-300 administer 2 units For BG 301-350 administer 3 units For BG MORE than 350, administer 4 units AND notify provider Physical Vitals: 10/21/24 2148 10/21/24 2347 10/22/24 0320 10/22/24 0800 BP: (!) 152/65 (!) 152/67 (!) 161/74 132/63 BP Location: Right arm Right arm Right arm Patient Position: Lying Lying Lying Pulse: 79 79 74 Resp: 18 18 18 Temp: 97.7 ??F (36.5 ??C) 96.7 ??F (35.9 ??C) 98.2 ??F (36.8 ??C) TempSrc: Tympanic Tympanic Tympanic SpO2: 95% 95% 95% Weight: Height: Intake/Output Summary (Last 24 hours) at 10/22/2024 0844 Last data filed at 10/22/2024 0700 Gross per 24 hour Intake 60 ml Output 1200 ml Net -1140 ml Physical Exam Vitals reviewed. Constitutional: General: He is not in acute distress. HENT: Head: Normocephalic and atraumatic. Mouth/Throat: Mouth: Mucous membranes are moist. Eyes: General: No scleral icterus. Conjunctiva/sclera: Conjunctivae normal. Pulmonary: Effort: Pulmonary effort is normal. Neurological: Mental Status: He is alert. Labs Lab Results Component Value Date HGBA1C 8.7 (H) 10/19/2024 Recent Labs 10/21/24 1224 10/21/24 1338 10/21/24 1823 10/21/24 2104 10/22/24 0123 GLUC 242* 270* 140* 190* 122* Lab Results Component Value Date ANIONGAP 16 10/21/2024 ANIONGAP 20 (H) 10/19/2024 ANIONGAP 19 (H) 10/19/2024 During the day of the visit, 39 minutes spent was spent on the following: Examining the patient Chart review in preparation for the visit Documenting in the patient record Reviewing Labs & Radiology Signed Tangela Reed PA-C Endocrinology - Medicine 10/22/2024 2:24 PM * Tangela Reed PA-C - 10/21/2024 8:45 AM EST Endocrinology Progress Note CHELLY Ponce Endocrinology - Medicine Today's Date: 10/21/2024 Admit Date: 10/18/2024 5:10 AM Consult requested by: Adilia Woo MD Principal Problem: DKA (diabetic ketoacidosis) (HCC) (POA: Yes) Resolved Problems: Assessment & Plan Assessment: Neymar Wilder is a 79 y.o. male with T2DM (8.7%-10/19/2023), CKD5, HTN, who presented to OSH with cough, chills, dyspnea, found to have PNA, transferred to with concerns of NSTEMI, DKA. Endocrinology consulted for diabetes BG above goal overnight and this morning, basal increased. BG confounded by delay in meal times - patient tends to eat later than standard hospital meal times, but fingersticks continue to be taken at the same time. If patient is eating later, next meal should be delayed so that there is at least 3hours between PO intake and fingerstick, to avoid treating postprandial BG and insulin stacking. Hospital Plan Increase to Lantus Insulin 20 units daily. Continue Meal Carb Humalog Insulin Scale: 1-8 units, 3 times a day with meals. See scale below. ICR 1: 9. Continue Meal Correction Humalog Insulin Scale: 1-6 units, 3 times a day with meals. See scale below. ISF 1: 40 > 140. Continue Nightly/0200 Correction Humalog Insulin Scale: 1-4 units. See scale below. ISF 1: 50 > 200. Glucose checks AC/HS & 0200. Notify endocrine team in the daytime or primary team overnight if BG <70 or >350 mg/dL. Hypoglycemia protocol in place. Please endocrinology team updated on discharge planning including date, disposition. Discharge Planning: Pending needs - patient on basal only at home, would prefer to coordinate similar regimen for discharge. Noted to be on Januvia - would prefer to switch to Tradjenta given renal function. Previous 24 Hours TDD: 32 units (Glargine 18, lispro 14). BG Range: 114-219. Diet: Diet Diabetic/ Calorie Controlled; Carb Counting 60g/meal 6497-0527 kcal Steroids: None. Drips: None. History Diabetes History Diabetes Management: Diaz Akers MD (appears to be PCP). Pre-Admission Regimen: Lantus SoloStar 10-14 units - patient reports he takes what is written on the pen, unable to clarify exact dose, recorded as 15 units daily in chart Januvia 100 mg daily History of Present Illness Patient developed malaise, dyspnea, cough over 2-3 days, presented to OSH, found to be COVID positive Reports that he was not eating very much during this time, as he did not feel good At OSH, BHB elevated to 5.88 Hospital Course 10/18: On presentation, serum glucose 569, bicarb 8, BHB 3.63, AG 28, serum osmolality 359, started on insulin drip 10/19: Endo consulted Subjective Chief Complaint Diabetes Management Subjective Patient visiting with family when seen. History Review of Systems Unable to perform ROS: Other Objective Inpatient Orders aspirin, 81 mg, Oral, Daily atorvastatin, 80 mg, Oral, Daily chlorhexidine, 15 mL, Mouth/Throat, BID insulin glargine, 20 Units, Subcutaneous, Daily insulin lispro, 1-4 Units, Subcutaneous, NIGHTLY & 2AM insulin lispro, 1-6 Units, Subcutaneous, TID with meals insulin lispro, 1-8 Units, Subcutaneous, TID with meals levothyroxine, 25 mcg, Oral, Daily 6AM metoPROLOL SUCCINATE, 50 mg, Oral, Daily senna-docusate, 2 tablet, Oral, Nightly sodium bicarbonate, 650 mg, Oral, BID No Known Allergies Scales Carb Scale Pre-meal Correction Nighttime Correction (Nightly and 2 AM) Please document the amount of carbs consumed in the comments section when insulin is given. MEAL BOLUS, hold if NPO or if eats < 10 grams of carbs Give 1 unit if eats/drinks 10-17 grams of carbs Give 2 units if eats/drinks 18-26 grams of carbs Give 3 units if eats/drinks 27-35 grams of carbs Give 4 units if eats/drinks 36-44 grams of carbs Give 5 units if eats/drinks 45-53 grams of carbs Give 6 units if eats/drinks 54-62 grams of carbs Give 7 units if eats/drinks 63-71 grams of carbs Give 8 units if eats/drinks at least 72 grams of carbs DO NOT HOLD IF NPO Notify provider if Blood Glucose LESS than 70 For BG 141-180 administer 1 unit For BG 181-220 administer 2 units For BG 221-260 administer 3 units For BG 261-300 administer 4 units For BG 301-340 administer 5 units For BG MORE than 340, administer 6 units AND notify provider DO NOT HOLD IF NPO Notify provider if Blood Glucose LESS than 70 For BG 201-250 administer 1 unit For BG 251-300 administer 2 units For BG 301-350 administer 3 units For BG MORE than 350, administer 4 units AND notify provider Physical Vitals: 10/20/24 1600 10/20/24 2338 10/21/24 0407 10/21/24 0554 BP: 134/66 133/63 BP Location: Right arm Right arm Patient Position: Lying Lying Pulse: 77 75 Resp: 20 18 18 Temp: 99.1 ??F (37.3 ??C) 98.1 ??F (36.7 ??C) 97.4 ??F (36.3 ??C) TempSrc: Tympanic Tympanic Tympanic SpO2: 93% 93% 92% Weight: 67.8 kg (149 lb 7.6 oz) 69.5 kg (153 lb 3.5 oz) Height: 1.702 m (5' 7 ) Intake/Output Summary (Last 24 hours) at 10/21/2024 0845 Last data filed at 10/21/2024 0554 Gross per 24 hour Intake 185.03 ml Output 1200 ml Net -1014.97 ml Physical Exam Vitals reviewed. Constitutional: General: He is not in acute distress. HENT: Head: Normocephalic and atraumatic. Mouth/Throat: Mouth: Mucous membranes are moist. Eyes: General: No scleral icterus. Conjunctiva/sclera: Conjunctivae normal. Pulmonary: Effort: Pulmonary effort is normal. Neurological: Mental Status: He is alert. Labs Lab Results Component Value Date HGBA1C 8.7 (H) 10/19/2024 Recent Labs 10/20/24 2047 10/21/24 0223 10/21/24 0309 10/21/24 0803 10/21/24 0835 GLUC 218* 198* 193* 181* 219* Lab Results Component Value Date ANIONGAP 16 10/21/2024 ANIONGAP 20 (H) 10/19/2024 ANIONGAP 19 (H) 10/19/2024 During the day of the visit, 44 minutes spent was spent on the following: Examining the patient Chart review in preparation for the visit Documenting in the patient record Reviewing Labs & Radiology Signed Tangela Reed PA-C Endocrinology - Medicine 10/21/2024 12:46 PM * Antonio Hameed MD - 10/21/2024 6:41 AM EST Hospital Medicine Progress Note LOS: 3 CODE:: Code Status Procedures Full Code Principal Problem: DKA (diabetic ketoacidosis) (HCC) (POA: Yes) Resolved Problems: Assessment & Plan Neymar Wilder is a 79 y.o. male with PMHx of insulin-dependent T2DM, HFrEF, CKD, HTN, who presented with to outside hospital with URI symptoms, transferred to [facility] for management of DKA and ICU, stable for downgrade to stepdown level care on 10/20/2024. Hospital course complicatedby NSTEMI on heparin drip, acute hypoxic respiratory failure. #NSTEMI #Acute decompensated HFrEF (LVEF 28%) #Pulmonary edmea and effusion s/p thoracentesis (10/19/24) #Moderate functional MR #HTN Patient presented with a proBNP of 70,000, and up trending troponins. EKG showed sinus rhythm with poor R wave progression and nonspecific T wave abnormalities. Troponin elevated at 1830 -> 4171, concerning for NSTEMI. He was transferred to for further evaluation and management. TTE on 10/18/2024 showed severely decreased LV systolic function with newly reduced LVEF of 28%. Cardiology was consulted. Chest x-ray worsening pulmonary edema. Bilateral thoracentesis were performed 10/19. - Cardiology following, appreciate recommendations - Follow-up pleural effusion cultures - Spot dose Lasix - Strict I's and O's - Further cardiac ischemic workup by cardiology once medically stable - Continue heparin drip per ACS protocol - Continue aspirin 81 mg daily - Continue atorvastatin 80 mg daily - Continue metoprolol succinate 50 mg daily - Continue telemetry #Diabetic ketoacidosis, resolved #Type 2 diabetes, insulin-dependent Patient presents from outside hospital due to URI symptoms and found to be in DKA with presenting lab values of 7.13, pCO2 of 25 and serum bicarb of 8. Patient was placed on DKA Glucomander protocol,however he had difficulties with his gap closing. Endocrinology was consulted, patient's beta hydroxybutyrate normalized with stable VBG of well-controlled blood glucose for which he was deemed stable to transfer to subcutaneous insulin. - Lantus 18 units daily - Insulin sliding scale - Glucose checks before meals and at bedtime - Endocrine following, follow recommendations #COVID-positive Asymptomatic. - Monitor fever and WBC curve - Airborne precautions 10/19 #ALISA on stage CKD #Anion gap metabolic acidosis secondary to DKA Patient is at his baseline BUN and creatinine 80/4.8. Nephrology was consulted given the patient isCKD stage V and will need eventual cardiac cath. Per nephrology he currently does not need dialysis. - Sodium bicarbonate tablets 650 mg twice daily, increase as per nephrology - BMP daily - Strict I's and O's - Avoid nephrotoxic agents #Hypothyroidism - Continue home Synthroid 25 mcg daily VTE Time Out IMPROVE SCORE: 2 (10/18/2024 10:24 AM) Interpretation - High Risk Chemical Prophylaxis heparin (porcine) IV infusion 25,000 units in 500 mL 0.45% NaCl (premix) Intravenous Continuous heparin (porcine) 1000 unit/mL injection 2,100 Units Intravenous Every 6 hours PRN Mechanical Prophylaxis Mechanical VTE prophylaxis NOT ordered. Click here to order if appropriate Mechanical Prophylaxis Contraindication: None - I will order SCDs Diet: cardiac Tele: yes Lines: PIV GI ppx: no DVT ppx: on therapeutic heparin Dispo: floors Expected Discharge Date: 10/23/2024 Subjective Overnight: No acute events overnight Today: Patient seen and examined at this morning. On room air. Denies any chest pain or shortness of breath. Objective Last Vitals Pulse:77,Resp:18,BP:(!) 146/67 (Rn aware),SpO2:92 %,Weight:69.5 kg (153 lb 3.5 oz) Temp Last 24 hrs: Temp Min: 97.3 ??F (36.3 ??C) Max: 99.1 ??F (37.3 ??C) Last temp: 97.3 ??F (36.3 ??C) (Tympanic) Intake/Output Summary (Last 24 hours) at 10/21/2024 1039 Last data filed at 10/21/2024 0850 Gross per 24 hour Intake 166.45 ml Output 1200 ml Net -1033.55 ml Physical Exam Vitals reviewed. Constitutional: General: He is not in acute distress. Appearance: Normal appearance. He is not ill-appearing. HENT: Mouth/Throat: Mouth: Mucous membranes are moist. Pharynx: Oropharynx is clear. Eyes: Conjunctiva/sclera: Conjunctivae normal. Cardiovascular: Rate and Rhythm: Normal rate and regular rhythm. Pulses: Normal pulses. Heart sounds: Normal heart sounds. No murmur heard. No friction rub. No gallop. Pulmonary: Effort: Pulmonary effort is normal. No respiratory distress. Breath sounds: Normal breath sounds. No stridor. No wheezing, rhonchi or rales. Abdominal: General: Abdomen is flat. Bowel sounds are normal. There is no distension. Palpations: Abdomen is soft. There is no mass. Tenderness: There is no abdominal tenderness. Musculoskeletal: Right lower leg: No edema. Left lower leg: No edema. Skin: General: Skin is warm and dry. Coloration: Skin is not jaundiced or pale. Neurological: Mental Status: He is alert and oriented to person, place, and time. Relevant data reviewed Labs, Notes, Meds, and Radiology Notable labs are: White Blood Cell Count Date Value Ref Range Status 10/21/2024 10.8 4.0 - 11.0 Thou/uL Final Hemoglobin Date Value Ref Range Status 10/21/2024 8.9 (L) 13.0 - 17.7 g/dL Final Hematocrit Date Value Ref Range Status 10/21/2024 28.9 (L) 39.0 - 54.0 % Final Platelet Count Date Value Ref Range Status 10/21/2024 299 150 - 450 Thou/uL Final Lab Results Component Value Date NA 140 10/21/2024 K 4.5 10/21/2024 CL 109 (H) 10/21/2024 CO2 15 (L) 10/21/2024 BUN 83 (H) 10/21/2024 CREAT 4.3 (H) 10/21/2024 GLUC 219 (H) 10/21/2024 GLUC 193 (H) 10/21/2024 Lab Results Component Value Date CALCIUM 7.1 (L) 10/21/2024 MG 1.6 10/19/2024 PHOS 4.4 10/19/2024 No results found for: AST , ALT , ALKPHOS , BILITOT , BILIDIR , ALBUMIN , PROT Imaging Studies CXR Report reviewed and Image reviewed Hospital Course Neymar Wilder is a 79 y.o. male with PMHx of insulin-dependent diabetes, HFrEF, stage V CKD, hypertension who was admitted ICU level care due to DKA as well as an NSTEMI on a heparin drip. Hospital course complicated by AHRF likely 2/2 HF exacerbation less likely from COVID pneumonia given congestion on CXR and significant improvement in oxygen requirements following thoracentesis and diuresis. Patient is s/p bilateral thoracentesis on 10/19/24. He was transitioned off insulin drip to subcutaneous insulin and diabetic diet on 10/19/24. Although anion gap is elevated, it does not correlatewith persistently normal BHB levels or normal lactate; this was dicussed with endocrine and patientis no longer in DKA given normal BHB and stable VBG and well controlled BG levels. Otherwise, patient was noted to have an NSTEMI for which he remains on a heparin drip per cardiology recs. On medical floors, patient continues on heparin drip pending further workup per cardiology. Remainsasymptomatic from his COVID infection. Repeat BMPs with normal gap. Antonio Hameed PGY1, Internal Medicine Available on [place] Text 10/21/2024 10:39 AM Associated attestation - Adilia Woo MD - 10/21/2024 12:24 PM EST Medicine Pt seen and examined by me, plan of care discussed with PGY 1 Dr Hameed. I agree with the above assessment/plan, with the following highlights/addendums: Briefly, 79 yo male PMH sig for DM2 on insulin, CKD 4-5 not on HD, HTN, here w URI sx (resolved)--> found to be in DKA. Initially in ICU, on insulin drip; hospital course c/b NSTEMI for which he was started on heparin drip, also found to have new HFrEF, EF 28%. Pt tested COVID positive but asymptomatic, no therapies were pursued. This AM, feeling better. Transitioned off insulin drip to subcutaneous insulin overnight, BS 198-219. No chest pain or dyspnea. On exam 92 on 2L 146/67 84 Pt alert,oriented x 3, in NAD. Lungs clear, no increased WOB, no LE edema. Heart sounds RRR, +systolic M. Labs/studies reviewed, WBC 10.8 Hb 8.9 plt 299 BUN/Cr 83/4.3 (baseline as per Care Everywhere 4-5) bicarb 15 K 4.5 AG 16 (20) BHB 0.26 trop 4276 <-- 4239 EKG 10/19 rev/int by me, SR echo 10/18 w EF 28 +DD RV function WNL RVSP 52 mod MR, TR. Pleural fluid likely transudate. Plan- DKA- resolved, AG closed, BS slightly elevated. Appreciate endocrine input in titration of insulin. ?COVID infection predisposed to DKA and NSTEMI/new HFrEF. Remains stable off therapies and asymptomatic. Given new HFrEF will need ischemic evaluation likely during hospital stay, cardiology following. Remains on hep gtt for type 1 vs 2 NSTEMI (likely demand in setting of known CKD); has been on for > 48h, will d/w cardiology whether can stop. On asa, statin, BB. Cannot give YULY/ARB/ARNI, aldactone, SGLT-2 given CKD4. On bicarb supplementation for acidosis. Dispo pending resolution of above; possibly in next 48-72h. IV hep for ppx. PT/OT evals. Rest as per above. Adilia Woo MD (Nina) MPH Chief, Department of Medicine [phone] * Linda Rivera PA-C - 10/21/2024 6:28 AM EST Images from the original note were not included. [facility] Cardiology Transfer Service Progress Note Chief Complaint: NSTEMI/ Acute HFrEF Assessment & Plan 79 year old male patient with a PMHx of CKD stage V (not on HD), HTN, and diabetes who intially presented to OSH with URI symptoms and increasing SOB. Patient was found to be hypoxic with sats in themid 80s and was placed on 5 L NC. CXR demonstrated opacities consistent with pneumonia versus pulmonary edea. Blood sugar was found to be greater than 700 with severe anion gap metabolic acidosis with pH of 7.1, consistent with diabetic ketoacidosis. Additionally patient was tested positive for COVID. EKG showed sinus rhythm with poor R wave progression and nonspecific T wave abnormalities. Troponin elevated at 1830 -> 4171, ruling patient in for NSTEMI. He was transferred to for further e valuation and management. TTE on 10/18/2024 showed severely decreased LVSF with newly reduced LVEF of28%. Assessment NSTEMI Acute decompensated HFrEF (LVEF 28%) Moderate functional MR Bilateral pleural effusions, s/p bilateral thoracentesis 10/18 HTN Acute hypoxic respiratory failure, in the setting of COVID infection and pulmonary congestion- improved ALISA on CKD stage V Diabetic ketoacidosis- resolved Severe metabolic acidosis with elevated anion gap Hyperglycemia- improved Plan NSTEMI, type 1 vs type 2 -HsT: 1,830 -> 4,276 -Patient remains asymptomatic from a cardiac standpoint -EKG demonstrates NSR with poor R wave progression and nonspecific T wave abnormalities -TTE from 2021 demonstrated LVEF of 55-60%. Given new finding of reduced LVEF 28% on echocardiogram, recommend ischemic workup once metabolic derangements are resolved, consult IC and plan for cath tomorrow 10/22 -Troponin elevation can be demand ischemia due to viral pneumonia and DKA. Cannot rule out IA, COVID myocarditis, or stress induced cardiomyopathy at this point. Plan for further ischemic workup oncepatient is medically stable, unless he develops chest pain, ventricular arrhythmias, or cardiogenicshock -Continue heparin gtt per ACS protocol -Continue ASA 81 mg daily -Continue atorvastatin 80 mg daily -Continuous telemetry monitoring -Keep K>4, Mg >2 Acute decompensated HFrEF (LVEF 28%), NYHA class III, AHA stage C Moderate functional MR Bilateral pleural effusions, s/p bilateral thoracentesis 10/18 HTN -TTE 10/18/2024: LV severely dilated, LVSF severely decreased, LVEF 28%. RVSF normal, RV systolic pressure 52 mmHg. Moderate functional MR. Large left pleural effusion. See full report below -I/Os: (-) 1 L/ 24 hours. (-) 2.5 L cumulatively -proBNP 10/18/2024: >70,000 -Diuresis: Euvolemic on exam. Plan to monitor off diuresis. Can spot dose as needed -GDMT: -BB: Continue Toprol XL 50 mg daily -MRA: On home spironolactone 25 mg daily. Continue to hold given ALISA on CKD -SGLT2i: Defer given history of DKA -YULY/ARB/ARNI: Hold given ALISA on CKD stage V -Strict I/Os, daily standing weights ALISA on CKD -Creatinine peak of 5.2, down to 4.3 (10/21) -Nephrology following appreciate recommendations -No indication for HD at this time -Daily BMPs Patient will need an outpatient cardiology follow up prior to discharge. [facility] cardiology will continue to follow. Case discussed with attending, Dr. Valentino Subjective Patient seen and examined at bedside. Feeling much better overall. Did report poor sleep overnight.Denies chest pain, SOB, palpitations, nausea, vomiting, abdominal pain, headaches, or lightheadedness. Objective Telemetry Reviewed: 8 beat run of NSVT, NSR rates in the 70s Last Vitals Pulse:75,Resp:18,BP:133/63,SpO2:92 %,Weight:69.5 kg (153 lb 3.5 oz) Temp Last 24 hrs: Temp Min: 97.4 ??F (36.3 ??C) Max: 99.1 ??F (37.3 ??C) Intake/Output Summary (Last 24 hours) at 10/21/2024627 Last data filed at 10/21/2024 0554 Gross per 24 hour Intake 223.61 ml Output 1200 ml Net -976.39 ml Physical Exam GENERAL: No acute distress. Frail. HEENT: Anicteric. No pallor. Moist oral membranes. NECK: Supple. No carotid bruits. JVP normal. CHEST: Nontender. Clear to auscultation bilaterally. CARDIAC: Regular rate and rhythm. Nondisplaced PMI. ABDOMEN: Soft. Nontender. Normal bowel sounds. EXTREMITIES: Warm. Well-perfused. No edema. VASCULAR: + distal pulses SKIN: Warm and dry. No rashes. NEUROLOGIC: Alert. Grossly nonfocal. Medications Medications Scheduled Medication Ordered Dose/Rate, Route, Frequency Last Action aspirin chewable tablet 81 mg 81 mg, PO, Daily Given, 81 mg at 10/20 900 atorvastatin (LIPITOR) tablet 80 mg 80 mg, PO, Daily Given, 80 mg at 10/20 900 chlorhexidine (PERIDEX) 0.12 % oral solution 15 mL 15 mL, MT, BID Given, 15 mL at 10/20 2049 insulin glargine (LANtus/SEMGLEE) 100 units/mL injection 18 Units 18 Units, SC, Daily Ordered insulin lispro (HumaLOG/ADMELOG) 100 units/mL injection 1-4 Units 1-4 Units, SC, NIGHTLY & 2AM Given, 1 Units at 10/20 2047 insulin lispro (HumaLOG/ADMELOG) 100 units/mL injection 1-6 Units 1-6 Units, SC, TID with meals Given, 1 Units at 10/20 1900 insulin lispro (HumaLOG/ADMELOG) 100 units/mL injection 1-8 Units 1-8 Units, SC, TID with meals Given, 1 Units at 10/20 1900 levothyroxine (SYNTHROID, LEVOTHROID) tablet 25 mcg 25 mcg, PO, Daily 6AM Given, 25 mcg at 10/21 0536 metoPROLOL SUCCINATE (TOPROL-XL) 24 hr tablet 50 mg 50 mg, PO, Daily Given, 50 mg at 10/20 1554 senna-docusate (SENNA-S) 8.6-50 MG tablet 2 tablet 2 tablet, PO, Nightly Given, 2 tablet at 10/19 2007 sodium bicarbonate tablet 650 mg 650 mg, PO, BID Given, 650 mg at 10/20 2049 Continuous Medication Ordered Dose/Rate, Route, Frequency Last Action heparin (porcine) IV infusion 25,000 units in 500 mL 0.45% NaCl (premix) 12 Units/kg/hr, IV, Continuous Rate Change - High Risk Medication, 16 Units/kg/hr at 10/20 2109 PRN Medication Ordered Dose/Rate, Route, Frequency Last Action bisacodyl (DULCOLAX) suppository 10 mg 10 mg, RE, Daily PRN Ordered dextrose 50 % solution 12.5 g (Or Linked Group #1) 12.5 g, IV, Q15 Min PRN Ordered dextrose 50 % solution 25 g (Or Linked Group #1) 25 g, IV, Q15 Min PRN Ordered glucagon (GLUCAGEN) injection 1 mg (Or Linked Group #1) 1 mg, IM, Daily PRN Ordered glucose (GLUTOSE 15) 40 % oral gel 37.5 g (Or Linked Group #1) 1 Tube, PO, Q15 Min PRN Ordered glucose (GLUTOSE 15) 40 % oral gel 75 g (Or Linked Group #1) 2 Tube, PO, Q15 Min PRN Ordered heparin (porcine) 1000 unit/mL injection 2,100 Units 30 Units/kg, IV, Q6H PRN Ordered lactulose (ENULOSE) 10 gm/15 mL solution 20 g 30 mL, PO, Q4H PRN Ordered naloxone (NARCAN) 0.4 mg/mL injection 0.4 mg 0.4 mg, IV, Q5 Min PRN Ordered Relevant data reviewed Lab Results Component Value Date WBC 10.8 10/21/2024 HGB 8.9 (L) 10/21/2024 HCT 28.9 (L) 10/21/2024 MCV 97 10/21/2024 PLT 299 10/21/2024 Lab Results Component Value Date GLUC 193 (H) 10/21/2024 CALCIUM 7.1 (L) 10/21/2024 NA 140 10/21/2024 K 4.5 10/21/2024 CO2 15 (L) 10/21/2024 CL 109 (H) 10/21/2024 BUN 83 (H) 10/21/2024 CREAT 4.3 (H) 10/21/2024 Lab Results Component Value Date MG 1.6 10/19/2024 Lab Results Component Value Date HSTNT 4,276 (HH) 10/19/2024 HSTNT 4,239 (HH) 10/19/2024 HSTNT 4,171 (HH) 10/19/2024 Lab Results Component Value Date PROBNP >70,000 (H) 10/18/2024 Lab Results Component Value Date HGBA1C 8.7 (H) 10/19/2024 Imaging Studies All appropriate imaging studies within the past 24 hours reviewed (actual images) Echocardiogram 10/18/2024: -The left ventricle is severely dilated. There is eccentric hypertrophy. Left ventricular systolic function is severely decreased. The quantitative EF by 2D Poole biplane is 28%. The anterior and anteroseptal garcia are akinetic. The apex is dyskinetic. There is evidence of diastolic dysfunction, with elevated left atrial filling pressure. The left atrial cavity is severely dilated. -The right ventricle is normal in size. Right ventricular systolic function is normal. The estimated right ventricular systolic pressure is 52 mmHg. -There is moderate functional mitral regurgitation. There is mild tricuspid regurgitation. -There is a large left pleural effusion. -There is no previous study for comparison in our system. EKG 10/19/2024: Sign Linda Rivera PA-C 10/21/2024 6:28 AM * Jose Barakat RN - 10/20/2024 5:05 PM EST 10/20/24 1702 General Information Admission Type inpatient Arrived From Hospital General Information Comments [facility] Initial Information How to be Addressed Vipul Source of Information patient;family;health record Stated Reason for Admission Covid, Heart, High Sugar Levels Patient Aware of Diagnosis yes Limitations on Visitors/Phone Calls none Temporary Family Living Arrangements (While Hospitalized) none needed Adaptive Services not applicable Does the Patient Have a CT DNR [place] Bracelet or State DNR Form? no Clinical Trial not applicable Designated Caregiver for Discharge Coordination Do You Have a Designated Caregiver for Discharge? 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 Caregiver Notification Attempt Comment Met at bedside and telephoned. Living Environment People in Home child(trini), adult Current Living Arrangements home Primary Care Provided by self Provides Primary Care For no one Family Caregiver if Needed child(trini), adult Quality of Family Relationships helpful;supportive;involved Able to Return to Prior Arrangements yes Relationship/Environment Primary Source of Support/Comfort child(trini) Primary Roles/Responsibilities retired Resource/Environmental Concerns Resource/Environmental Concerns home accessibility Home Accessibility Concerns stairs to enter home Disability/Function Hearing Difficulty or Deaf no Wear Glasses or Blind yes Vision Management Readers Concentrating, Remembering or Making Decisions Difficulty no Difficulty Communicating no Difficulty Eating/Swallowing no Walking or Climbing Stairs Difficulty no Dressing/Bathing Difficulty no Doing Errands Independently Difficulty (such as shopping) no Equipment Currently Used at Home none Functional Status Usual Activity Tolerance good Functional Status, IADL Medications independent Meal Preparation independent Housekeeping independent Laundry independent Shopping independent Housing Stability In the last 12 months, was there a time when you were not able to pay the mortgage or rent on time?N In the past 12 months, how many times have you moved where you were living? 1 At any time in the past 12 months, were you homeless or living in a half-way (including now)? N Food Insecurity Within the past 12 months, you worried that your food would run out before you got the money to buymore. Never true Within the past 12 months, the food you bought just didn't last and you didn't have money to get more. Never true Transportation Needs In the past 12 months, has lack of transportation kept you from medical appointments or from getting medications? no In the past 12 months, has lack of transportation kept you from meetings, work, or from getting things needed for daily living? No Utilities In the past 12 months has the electric, gas, oil, or water company threatened to shut off services in your home? No Interpersonal Safety Within the last year, have you been humiliated or emotionally abused in other ways by anyone? No Within the last year, have you been kicked, hit, slapped, or otherwise physically hurt by anyone? No Discharge Needs Assessment Concerns to be Addressed denies needs/concerns at this time Patient/Family Anticipates Transition to home with family Patient/Family Anticipated Services at Transition none Transportation Anticipated family or friend will provide Anticipated Changes Related to Illness none Plan Plan Home Routine Patient/Family in Agreement with Plan yes * Irma Tilley MD - 10/20/2024 10:23 AM EST Images from the original note were not included. Division of Pulmonary, Critical Care, and Sleep Medicine [address] [place] [address], [address] [address] Critical Care Progress Note Assessment & Plan Neymar Wilder is a 79 y.o. male who is critically ill/injured and/or remains at high risk nallely threatening complications requiring critical care management given the following acute conditions and comorbid processes: Active Problems: Diabetic ketoacidosis NSTEMI Acute pulmonary edema Small bilateral pleural effusion Metabolic acidosis Comorbid Conditions: CKD stage V Total LOS: 2 days Plan by system Neuro: CAM: CAM-ICU Delirium Present: Negative Rea Agitation Sedation Scale (RASS) / Modified RASS: 0-->alert and calm BILLY Resp: Bilateral pleural effusion S/p thoracentecis Acute pulm edema Continue furosemide CV: NSTEMI On IV Heparin Acute on chronic systolic HF Continue diuresis Keep 1-2L net negative in 24 hours Continue ASA, Statin >Echo: 10/18/23 The left ventricle is severely dilated. There is eccentric hypertrophy. Left ventricular systolic function is severely decreased. The quantitative EF by 2D Poole biplane is 28%. The anterior and anteroseptal garcia are akinetic. The apex is dyskinetic. There is evidence of diastolic dysfunction, with elevated left atrial filling pressure. The left atrial cavity is severely dilated. The right ventricle is normal in size. Right ventricular systolic function is normal. The estimatedright ventricular systolic pressure is 52 mmHg. There is moderate functional mitral regurgitation. There is mild tricuspid regurgitation. There is a large left pleural effusion. There is no previous study for comparison in our system. Dr. Pushpa Gallegos was notified by [place] text at 12:36 PM. GI: >Nutrition: Diet/Nutrition Received: consistent carb/diabetic diet Diet Diabetic/ Calorie Controlled; Carb Counting 60g/meal 5302-9803 kcal Renal: CKD 5, stable Monitor >Intake & Output Intake/Output Summary (Last 24 hours) at 10/20/2024 1023 Last data filed at 10/20/2024 1000 Gross per 24 hour Intake 961.68 ml Output 2040 ml Net -1078.32 ml Endo: Diabetic ketoacidosis Glucomander protocol Endocrine consult Hypothyroidism On Levothyroxine Heme/Onc: Hgb stable ID: Leucocytosis COVID 19 infection >Antibiotics: Drips: dextrose 5 % and sodium chloride 0.45 % with KCl 20 mEq/L, 50 mL/hr, Last Rate: Stopped (10/19/24 1841) heparin (porcine) IV infusion - low dose protocol, 12 Units/kg/hr (Order- Specific), Last Rate: 14 Units/kg/hr (10/20/24 1000) Lines: Peripheral IV - Single Lumen (Adult) 10/18/24 0522 median vein (underside of arm), right 20 gauge (Active) Number of days: 2 Peripheral IV - Single Lumen (Adult) 10/18/24 0523 median vein (underside of arm), left 20 gauge (Active) Number of days: 2 Evaluation for Central line access removal was discussed today on rounds. If central line was no longer needed, then it would be removed. Indication for keeping central line: Restraints: Mobility: Mcgee: Evaluation for removal of Mcgee was discussed today on rounds. If no longer indicated, then it would be removed. Indication for keeping Mcgee: No mcgee GI Prophylaxis (if needed): NA DVT Prophylaxis: SCD Use: Device is properly applied and functional, Heparin gtt CODE STATUS: full DISPOSITION: MICU I provided 35 minutes of Critical Care time evaluating, providing care and managing this criticallyill/injured patient. I affirm that this patient is critically ill and at high risk for sudden, fatal deterioration due to one or more of the above active issues. I managed/supervised life- or organ-supporting interventions that require frequent physician assessment and reassessment. Critical care time was spent, but not limited to, the review of laboratory test results, medications, relevant radiology and discussing this critically ill patient's care with other medical staff in the unit or at the nursing station onthe floor where the patient is located. My full attention was given to the management of this patient and I was immediately available during this same time. This time did not include any separate billable procedures. Subjective/Overnight No acute events overnight Off insulin drip Objective SpO2:97 %,O2 Device: nasal cannula, Flow (L/min) (Oxygen Therapy): 2, Temp Last 24 hrs: Temp Min: 96.6 ??F (35.9 ??C) Max: 98.2 ??F (36.8 ??C) WBC Trend White Blood Cell Count Date Value Ref Range Status 10/19/2024 11.5 (H) 4.0 - 11.0 Thou/uL Final 10/19/2024 15.9 (H) 4.0 - 11.0 Thou/uL Final 10/18/2024 11.5 (H) 4.0 - 11.0 Thou/uL Final Last Vitals: Pulse:85, Resp:20, BP:BP Min: 117/56 Max: 137/60 MAP: Physical Exam: General: Intubated stated age and cooperative HEENT: supple without LAD Lungs: clear to auscultation bilaterally Chest wall: no tenderness Heart: regular rate and rhythm, S1, S2 normal, no murmur, click, rub or gallop Abdomen: soft, non-tender; bowel sounds normal; no masses, no organomegaly Extremities: atraumatic, no cyanosis or edema Neuro: non focal Skin: Warm, no rash Intake & Output: I/O last 3 completed shifts: In: [I.V.:1928.; IV Piggyback:100] Out: 3615 [Urine:3615] Intake/Output Summary (Last 24 hours) at 10/20/2024 1023 Last data filed at 10/20/2024 1000 Gross per 24 hour Intake 961.68 ml Output 2040 ml Net -1078.32 ml Procedures: Medications: Medication/MAR Report: Medications Scheduled Medication Ordered Dose/Rate, Route, Frequency Last Action aspirin chewable tablet 81 mg 81 mg, PO, Daily Given, 81 mg at 10/20 900 atorvastatin (LIPITOR) tablet 80 mg 80 mg, PO, Daily Given, 80 mg at 10/20 900 chlorhexidine (PERIDEX) 0.12 % oral solution 15 mL 15 mL, MT, BID Given, 15 mL at 10/20 900 insulin glargine (LANtus/SEMGLEE) 100 units/mL injection 18 Units 18 Units, SC, Daily Given, 18 Units at 10/19 1634 insulin lispro (HumaLOG/ADMELOG) 100 units/mL injection 1-4 Units 1-4 Units, SC, NIGHTLY & 2AM Given, 1 Units at 10/20 0219 insulin lispro (HumaLOG/ADMELOG) 100 units/mL injection 1-6 Units 1-6 Units, SC, TID with meals Given, 1 Units at 10/20 0847 insulin lispro (HumaLOG/ADMELOG) 100 units/mL injection 1-8 Units 1-8 Units, SC, TID with meals Ordered levothyroxine (SYNTHROID, LEVOTHROID) tablet 25 mcg 25 mcg, PO, Daily 6AM Given, 25 mcg at 10/20 0543 senna-docusate (SENNA-S) 8.6-50 MG tablet 2 tablet 2 tablet, PO, Nightly Given, 2 tablet at 10/19 2007 sodium bicarbonate tablet 650 mg 650 mg, PO, BID Given, 650 mg at 10/20 0902 Continuous Medication Ordered Dose/Rate, Route, Frequency Last Action dextrose 5 % and sodium chloride 0.45 % with KCl 20 mEq/L infusion (D5-1/2NS-KCL20) (premix) 50 mL/hr, IV, Continuous Stopped, 10/19 1841 heparin (porcine) IV infusion 25,000 units in 500 mL 0.45% NaCl (premix) 12 Units/kg/hr, IV, Continuous Rate/Dose Verify, 14 Units/kg/hr at 10/20 1000 PRN Medication Ordered Dose/Rate, Route, Frequency Last Action bisacodyl (DULCOLAX) suppository 10 mg 10 mg, RE, Daily PRN Ordered dextrose 50 % solution 12.5 g (Or Linked Group #1) 12.5 g, IV, Q15 Min PRN Ordered dextrose 50 % solution 25 g (Or Linked Group #1) 25 g, IV, Q15 Min PRN Ordered glucagon (GLUCAGEN) injection 1 mg (Or Linked Group #1) 1 mg, IM, Daily PRN Ordered glucose (GLUTOSE 15) 40 % oral gel 37.5 g (Or Linked Group #1) 1 Tube, PO, Q15 Min PRN Ordered glucose (GLUTOSE 15) 40 % oral gel 75 g (Or Linked Group #1) 2 Tube, PO, Q15 Min PRN Ordered heparin (porcine) 1000 unit/mL injection 2,100 Units 30 Units/kg, IV, Q6H PRN Ordered lactulose (ENULOSE) 10 gm/15 mL solution 20 g 30 mL, PO, Q4H PRN Ordered naloxone (NARCAN) 0.4 mg/mL injection 0.4 mg 0.4 mg, IV, Q5 Min PRN Ordered Relevant data reviewed: Hemoglobin, Hematocrit and Platelets Recent Labs 10/18/24 0516 10/19/24 0120 10/19/24 1425 10/19/24 2359 HGB 8.5* 8.5* 9.9* 8.9* HCT 27.7* 27.0* 32.3* 28.6* PLT 265 263 -- 271 Electrolytes and Lactate Recent Labs 10/18/24 2213 10/18/24 2215 10/19/24 0744 10/19/24 1134 10/19/24 1547 10/19/24 2359 NA -- < > 141 142 143 140 K -- < > 4.6 4.3 4.4 4.4 CL -- < > 109* 110* 109* 106 CO2 -- < > 14* 14* 15* 14* ANIONGAP -- < > 18* 18* 19* 20* BUN -- < > 84* 84* 81* 86* CREAT -- < > 4.8* 4.8* 4.6* 4.7* LACTIC 1.2 -- -- -- -- -- < > = values in this interval not displayed. Hepatic Testing No results for input(s): AST , ALT , ALKPHOS , BILITOT , BILIDIR , ALBUMIN , PROT in the last 72 hours. Coagulation Studies Recent Labs 10/18/24 0516 PTT 68* LABPROT 13.9* INR 1.2 ABG Trends No results for input(s): PHA , PCO2 , PO2 , HCO3 in the last 72 hours. Recent Cultures: Culture Date Value Ref Range Status 10/18/2024 No aerobes and anaerobes isolated after <24 hours Preliminary 10/18/2024 Preliminary No fungi isolated. Culture will be held for two weeks. 10/18/2024 PENDING Preliminary 10/18/2024 No aerobes and anaerobes isolated after <24 hours Preliminary Imaging Studies: Appropriate radiology imaging was reviewed (actual images) and compared to prior where applicable. Specific /additional concerns as highlighted below if appropriate. This report was generated using [employer] Speaking dictation software. Although every attempt has been made by the provider to proofread this document, occasional misspellings and typographical errors may still be present. Sign: Irma Tilley MD 10/20/2024 10:23 AM * Tangela Reed PA-C - 10/20/2024 8:19 AM EST Endocrinology Progress Note PA - Endocrinology - Medicine Today's Date: 10/20/2024 Admit Date: 10/18/2024 5:10 AM Consult requested by: Kristopher Hickey MD Principal Problem: DKA (diabetic ketoacidosis) (HCC) (POA: Yes) Resolved Problems: Assessment & Plan Assessment: Neymar Wilder is a 79 y.o. male with T2DM (8.7%-10/19/2023), CKD5, HTN, who presented to OSH with cough, chills, dyspnea, found to have PNA, transferred to with concerns of NSTEMI, DKA. Endocrinology consulted for diabetes BHB returned at 0.26, transitioned off insulin drip the day prior, BG elevated after dinner, carb scale increased for this morning. Fasting BG within goal, to continue basal dose. Patient given breakfast coverage at 1043, fingerstick checked at 1143, patient given correction forthis BG at 1230. Risk of hypoglycemia with treating postprandial BG, lispro would not have had peakeffect by an hour - would advise delaying meal next time to avoid treating postprandial fingersticks and insulin stacking. Hospital Plan Continue Lantus Insulin 18 units daily. Increase to Meal Carb Humalog Insulin Scale: 1-8 units, 3 times a day with meals. See scale below. ICR 1: 9. Continue Meal Correction Humalog Insulin Scale: 1-6 units, 3 times a day with meals. See scale below. ISF 1: 40 > 140. Continue Nightly/0200 Correction Humalog Insulin Scale: 1-4 units. See scale below. ISF 1: 50 > 200. Glucose checks AC/HS & 0200. Notify endocrine team in the daytime or primary team overnight if BG <70 or >350 mg/dL. Hypoglycemia protocol in place. Please endocrinology team updated on discharge planning including date, disposition. Discharge Planning: Pending needs - patient on basal only at home, would prefer to coordinate similar regimen for discharge. Noted to be on Januvia - would prefer to switch to Tradjenta given renal function. Previous 24 Hours TDD: (Glargine 18, lispro 4, drip 19.6). BG Range: 114-219. Diet: Diet Diabetic/ Calorie Controlled; Carb Counting 60g/meal 3119-4376 kcal Steroids: None. Drips: None. History Diabetes History Diabetes Management: Diaz Akers MD (appears to be PCP). Pre-Admission Regimen: Lantus SoloStar 10-14 units - patient reports he takes what is written on the pen, unable to clarify exact dose, recorded as 15 units daily in chart Januvia 100 mg daily History of Present Illness Patient developed malaise, dyspnea, cough over 2-3 days, presented to OSH, found to be COVID positive Reports that he was not eating very much during this time, as he did not feel good At OSH, BHB elevated to 5.88 Hospital Course 10/18: On presentation, serum glucose 569, bicarb 8, BHB 3.63, AG 28, serum osmolality 359, started on insulin drip 10/19: Endo consulted Subjective Chief Complaint Diabetes Management Subjective Patient seen at doorway given active COVID infection. History Review of Systems Constitutional: Negative for activity change and appetite change. Objective Inpatient Orders aspirin, 81 mg, Oral, Daily atorvastatin, 80 mg, Oral, Daily chlorhexidine, 15 mL, Mouth/Throat, BID insulin glargine, 18 Units, Subcutaneous, Daily insulin lispro, 1-4 Units, Subcutaneous, NIGHTLY & 2AM insulin lispro, 1-6 Units, Subcutaneous, TID with meals insulin lispro, 1-8 Units, Subcutaneous, TID with meals levothyroxine, 25 mcg, Oral, Daily 6AM senna-docusate, 2 tablet, Oral, Nightly sodium bicarbonate, 650 mg, Oral, BID No Known Allergies Scales Carb Scale Pre-meal Correction Nighttime Correction (Nightly and 2 AM) Please document the amount of carbs consumed in the comments section when insulin is given. MEAL BOLUS, hold if NPO or if eats < 10 grams of carbs Give 1 unit if eats/drinks 10-17 grams of carbs Give 2 units if eats/drinks 18-26 grams of carbs Give 3 units if eats/drinks 27-35 grams of carbs Give 4 units if eats/drinks 36-44 grams of carbs Give 5 units if eats/drinks 45-53 grams of carbs Give 6 units if eats/drinks 54-62 grams of carbs Give 7 units if eats/drinks 63-71 grams of carbs Give 8 units if eats/drinks at least 72 grams of carbs DO NOT HOLD IF NPO Notify provider if Blood Glucose LESS than 70 For BG 141-180 administer 1 unit For BG 181-220 administer 2 units For BG 221-260 administer 3 units For BG 261-300 administer 4 units For BG 301-340 administer 5 units For BG MORE than 340, administer 6 units AND notify provider DO NOT HOLD IF NPO Notify provider if Blood Glucose LESS than 70 For BG 201-250 administer 1 unit For BG 251-300 administer 2 units For BG 301-350 administer 3 units For BG MORE than 350, administer 4 units AND notify provider Physical Vitals: 10/20/24 0300 10/20/24 0400 10/20/24 0500 10/20/24 0600 BP: 120/60 118/69 136/68 (!) 128/58 BP Location: Left arm Patient Position: Lying Pulse: 79 80 81 69 Resp: 19 17 18 19 Temp: 97.8 ??F (36.6 ??C) TempSrc: Tympanic SpO2: 97% 97% 95% 97% Weight: Height: Intake/Output Summary (Last 24 hours) at 10/20/2024 0819 Last data filed at 10/20/2024 0600 Gross per 24 hour Intake 1025.93 ml Output 2040 ml Net -1014.07 ml Physical Exam Vitals reviewed. Constitutional: General: He is not in acute distress. HENT: Head: Normocephalic and atraumatic. Mouth/Throat: Mouth: Mucous membranes are moist. Eyes: General: No scleral icterus. Conjunctiva/sclera: Conjunctivae normal. Pulmonary: Effort: Pulmonary effort is normal. Neurological: Mental Status: He is alert. Labs Lab Results Component Value Date HGBA1C 8.7 (H) 10/19/2024 Recent Labs 10/19/24199910/19/24 2359 10/20/24 0215 10/20/24 0543 10/20/24 0748 GLUC 132* 183* 219* 148* 156* Lab Results Component Value Date ANIONGAP 20 (H) 10/19/2024 ANIONGAP 19 (H) 10/19/2024 ANIONGAP 18 (H) 10/19/2024 During the day of the visit, 41 minutes spent was spent on the following: Examining the patient Chart review in preparation for the visit Documenting in the patient record Reviewing Labs & Radiology Signed Tangela Reed PA-C Endocrinology - Medicine 10/20/2024 1:49 PM * Lesly Luke MD - 10/20/2024 7:48 AM EST Images from the original note were not included. [facility] CRITICAL CARE RESIDENT PROGRESS NOTE LOS: 2 CODE:: Code Status Procedures Full Code Subjective Hospital Course: This is a 79 yo male with PMHx of stage V CKD (has not been on hemodialysis follows with nephrologyin [place]), insulin-dependent diabetes, hypertension, HFrEF with acute decompensation admitted to ICU for DKA on Glucomander and NSTEMI on heparin drip. Hospital course complicated by AHRF like ly 2/2 HF exacerbation less likely from COVID pneumonia given congestion on CXR and significant improvement in oxygen requirements following thoracentesis and diuresis. Patient is s/p bilateral thoracentesis on 10/19/24. He was transitioned off insulin drip to subcutaneous insulin and diabetic diet on 10/19/24. Although anion gap is elevated, it does not correlate with persistently normal BHB levels or normal lactate; this was dicussed with endocrine and patient is no longer in DKA given normal BHB and stable VBG and well controlled BG levels. Otherwise, patient was noted to have an NSTEMI for which he remains on a heparin drip per cardiology recs. Things to follow up: [ ] endocrine recs [ ] Patient remains on COVID precautions since 10/19/24 [ ] consider repeat diuresis with IV lasix 40 on 10/21 given HD and kidney function stable to help wean oxygen [ ] thoracentesis cultures [ ] cardiology recs regarding heparin drip duration for NSTEMI [ ] daily BMP to monitor AG for now Last 24hrs: No acute events overnight. Oxygen weaned down to 2 L nasal cannula from 6 L. Patient remains on heparin drip. He was transitioned off insulin drip to subcu insulin, BG remains well controlled. LOS: 2 days Assessment and Plan Problem List Principal Problem: DKA (diabetic ketoacidosis) ([facility]) (POA: Yes) Resolved Problems: Assessment Neymar Baum Meño 79 y.o. w/ PMHx of stage V CKD (has not been on hemodialysis follows with nephrology in [place]), insulin-dependent diabetes, hypertension admitted to ICU for DKA on Glucomander and NSTEMI on heparin drip. Patient is covid positive. Plan by system NEUROLOGY: No active issues. Behavioral/Sedation scales CAM-ICU Delirium Present: Negative Rea Agitation Sedation Scale (RASS) / Modified RASS: 0-->alert and calm RESPIRATORY Pulmonary Edema Patient presents with a proBNP of 70,000, chest x-ray worse ending pulmonary edema. Given 80 mg of Lasix yesterday. Bilateral thoracentesis were performed yesterday - Follow-up pleural effusion cultures -On nasal cannula wean as tolerated for goal saturation > 92% CARDIOVASCULAR NSTEMI Acute decompensated HFrEF (LVEF 28%) Moderate functional MR HTN Patient presented with a proBNP of 70,000, and up trending troponins now at 4.2K. EKG showed sinus rhythm with poor R wave progression and nonspecific T wave abnormalities. Troponin elevated at 1830 -> 4171, ruling patient in for NSTEMI. He was transferred to for further evaluation and management. TTE on 10/18/2024 showed severely decreased LVSF with newly reduced LVEF of 28%. -Further cardiac ischemic workup by cardiology once medically stable - Continue heparin drip per ACS protocol - Continue aspirin 81 mg daily - Continue atorvastatin 80 mg daily - Continue telemetry GASTROENTEROLOGY BILLY - continue on diabetic diet Nutrition Diet/Nutrition Received: NPO Diet Diabetic/ Calorie Controlled; Carb Counting 60g/meal [id number] kcal NEPHROLOGY ALISA on stage III CKD DKA, resolved Elevated anion gap without acidosis Patient is at his baseline BUN and creatinine 80/4.8. Nephrology was consulted given the patient isCKD stage V and will need eventual cardiac cath. Per nephrology he currently does not need dialysis. Per enocrinology, BHB is normal on repeat checks with well controlled BG and elevated AG is not correlative therefore DKA is resolved. Lactate normal, unclear etiology of elevated AG. - Sodium bicarbonate tablets 650 mg twice daily, increase as per nephrology - daily BMP Intake & Output Intake/Output Summary (Last 24 hours) at 10/20/2024 0748 Last data filed at 10/20/2024 0600 Gross per 24 hour Intake 1107.4 ml Output 2040 ml Net -932.6 ml ENDOCRINOLOGY Diabetic ketoacidosis, resolved Type 2 diabetes, insulin-dependent Patient presents from outside hospital due to URI symptoms and found to be in DKA with presenting lab values of 7.13, pCO2 of 25 and serum bicarb of 8. Patient was placed on DKA Glucomander protocol and transitioned to subcutaneous with diet on 10/19/24. Although anion gap is elevated, it does not correlate with persistently normal BHB levels or normal lactate; this was dicussed with endocrine andpatient is no longer in DKA given normal BHB and stable VBG and well controlled BG levels. - Endocrine following, follow recommendations - SSI per endocrine - lantus 18U daily HEMATOLOGY/ ONCOLOGY BILLY Heparin drip for NSTEMI INFECTIOUS DISEASE COVID-positive, asymptomatic -No acute interventions, monitor fever and WBC curves Antibiotics Pt seen and discussed w/ Dr Kristopher Hickey MD ICU Check-list Code: Code Status Procedures Full Code Drips: dextrose 5 % and sodium chloride 0.45 % with KCl 20 mEq/L, 50 mL/hr, Last Rate: Stopped (10/19/24 1841) heparin (porcine) IV infusion - low dose protocol, 12 Units/kg/hr (Order- Specific), Last Rate: 14 Units/kg/hr (10/20/24 0600) Lines: Peripheral IV - Single Lumen (Adult) 10/18/24 0522 median vein (underside of arm), right 20 gauge (Active) Number of days: 2 Peripheral IV - Single Lumen (Adult) 10/18/24 0523 median vein (underside of arm), left 20 gauge (Active) Number of days: 2 Enteric Access and Mcgee: External Catheter 10/19/24 1330 other (see comments) (Active) Number of days: 1 Mcgee: no GI ppx: no DVT PPx: therapeutic heparin drip for NSTEMI IMPROVE SCORE: Stepdown / ICU / CCU Stay: 1-->Stepdown / ICU / CCU stay Age > 60 yrs: 1--> Age > 60 years IMPROVE SCORE: 2 Mobility: ,PT/OT: Yes Dispo: floors with tele Family update: Son Khalif was updated by me. Objective Last Vitals Pulse:69,Resp:19,BP:(!) 128/58,SpO2:97 %,Weight:67.5 kg (148 lb 13 oz) Temp Last 24 hrs: Temp Min: 96.4 ??F (35.8 ??C) Max: 98.2 ??F (36.8 ??C) Last temp: 97.8 ??F (36.6 ??C) (Tympanic) Intake/Output Summary (Last 24 hours) at 10/20/2024 0748 Last data filed at 10/20/2024 0600 Gross per 24 hour Intake 1107.4 ml Output 2040 ml Net -932.6 ml Physical Exam Constitutional: General: He is not in acute distress. Appearance: Normal appearance. He is not ill-appearing. HENT: Head: Normocephalic and atraumatic. Mouth/Throat: Mouth: Mucous membranes are moist. Pharynx: Oropharynx is clear. Eyes: Extraocular Movements: Extraocular movements intact. Cardiovascular: Rate and Rhythm: Normal rate and regular rhythm. Pulses: Normal pulses. Heart sounds: No murmur heard. Pulmonary: Effort: Pulmonary effort is normal. No respiratory distress. Breath sounds: No stridor. Rales present. No wheezing or rhonchi. Abdominal: General: Bowel sounds are normal. Palpations: Abdomen is soft. Tenderness: There is no abdominal tenderness. There is no guarding or rebound. Musculoskeletal: Right lower leg: No edema. Left lower leg: No edema. Skin: General: Skin is warm and dry. Capillary Refill: Capillary refill takes less than 2 seconds. Neurological: General: No focal deficit present. Mental Status: He is alert and oriented to person, place, and time. Psychiatric: Thought Content: Thought content normal. LABS: Results from last 7 days Lab Units 10/19/24 2359 10/19/24 1425 10/19/24 0120 10/18/24 0516 WHITE BLOOD CELL COUNT Thou/uL 11.5* -- 15.9* 11.5* HEMOGLOBIN g/dL 8.9* 9.9* 8.5* 8.5* HEMATOCRIT % 28.6* 32.3* 27.0* 27.7* PLATELET COUNT Thou/uL 271 -- 263 265 NEUTROS PCT % 80.7 -- -- 86.0 LYMPHS PCT % 11.6 -- -- 9.2 MONOS PCT % 6.7 -- -- 4.3 EOS PCT % 0.2 -- -- 0.0 BASOS PCT % 0.2 -- -- 0.1 Recent Labs 10/18/24 0516 PTT 68* LABPROT 13.9* INR 1.2 Recent Labs 10/18/24 2213 10/18/24 2215 10/19/24 0415 10/19/24 0744 10/19/24 1134 10/19/24 1547 10/19/24 2359 NA -- < > 142 141 142 143 140 K -- < > 4.3 4.6 4.3 4.4 4.4 CL -- < > 109* 109* 110* 109* 106 CO2 -- < > 14* 14* 14* 15* 14* ANIONGAP -- < > 19* 18* 18* 19* 20* BUN -- < > 84* 84* 84* 81* 86* CREAT -- < > 5.0* 4.8* 4.8* 4.6* 4.7* LACTIC 1.2 -- -- -- -- -- -- < > = values in this interval not displayed. No results for input(s): AST , ALT , ALKPHOS , BILITOT , BILIDIR , ALBUMIN , PROT in the last 72 hours. No results for input(s): PHA , PCO2 , PO2 , HCO3 in the last 72 hours. Recent Cultures: Culture Date Value Ref Range Status 10/18/2024 No aerobes and anaerobes isolated after <24 hours Preliminary 10/18/2024 Preliminary No fungi isolated. Culture will be held for two weeks. 10/18/2024 PENDING Preliminary IMAGING: No results found. Discussed with Dr. Tilley. Sign Lesly Luke MD Available on [place] Text 10/20/2024 7:48 AM * Linda Rivera PA-C - 10/20/2024 6:40 AM EST Images from the original note were not included. [facility] Cardiology Transfer Service Progress Note Chief Complaint: NSTEMI/ Acute HFrEF Assessment & Plan 79 year old male patient with a PMHx of CKD stage V (not on HD), HTN, and diabetes who intially presented to OSH with URI symptoms and increasing SOB. Patient was found to be hypoxic with sats in themid 80s and was placed on 5 L NC. CXR demonstrated opacities consistent with pneumonia versus pulmonary edea. Blood sugar was found to be greater than 700 with severe anion gap metabolic acidosis with pH of 7.1, consistent with diabetic ketoacidosis. Additionally patient was tested positive for COVID. EKG showed sinus rhythm with poor R wave progression and nonspecific T wave abnormalities. Troponin elevated at 1830 -> 4171, ruling patient in for NSTEMI. He was transferred to for further e valuation and management. TTE on 10/18/2024 showed severely decreased LVSF with newly reduced LVEF of28%. Assessment NSTEMI Acute decompensated HFrEF (LVEF 28%) Moderate functional MR Bilateral pleural effusions, s/p bilateral thoracentesis 10/18 HTN Acute hypoxic respiratory failure, in the setting of COVID infection and pulmonary congestion ALISA on CKD stage V Diabetic ketoacidosis- improving Severe metabolic acidosis with elevated anion gap- improving Hyperglycemia- improved Plan NSTEMI, type 1 vs type 2 -HsT: 1,830 -> 4,276 -Patient remains asymptomatic from a cardiac standpoint -EKG demonstrates NSR with poor R wave progression and nonspecific T wave abnormalities -TTE from 2021 demonstrated LVEF of 55-60%. Given new finding of reduced LVEF 28% on echocardiogram, recommend ischemic workup on this admission -Troponin elevation can be demand ischemia due to viral pneumonia and DKA. Cannot rule out IA, COVID myocarditis, or stress induced cardiomyopathy at this point. Plan for further ischemic workup oncepatient is medically stable, unless he develops chest pain, ventricular arrhythmias, or cardiogenicshock -Continue heparin gtt per ACS protocol -Continue ASA 81 mg daily -Continue atorvastatin 80 mg daily -Continuous telemetry monitoring -Keep K>4, Mg >2 Acute decompensated HFrEF (LVEF 28%), NYHA class III, AHA stage C Moderate functional MR Bilateral pleural effusions, s/p bilateral thoracentesis 10/18 HTN -TTE 10/18/2024: LV severely dilated, LVSF severely decreased, LVEF 28%. RVSF normal, RV systolic pressure 52 mmHg. Moderate functional MR. Large left pleural effusion. See full report below -I/Os: (-) 932 mL/ 24 hours. (-) 1.5 L cumulatively -proBNP 10/18/2024: >70,000 -Diuresis: Continue spot dose diuresis with IV Lasix 80 mg, goal net negative 1- 2 L/ 24 hours -GDMT: -BB: Start Toprol XL 50 mg daily to optimize GDMT -MRA: On home spironolactone 25 mg daily. Continue to hold given ALISA on CKD -SGLT2i: Defer given history of DKA -YULY/ARB/ARNI: Hold given ALISA on CKD stage V -Strict I/Os, daily standing weights ALISA on CKD -Baseline Cr appears to be around 5.0 -Nephrology following appreciate recommendations -No indication for HD at this time -Daily BMPs Patient will need an outpatient cardiology follow up prior to discharge. [facility] cardiology will continue to follow. Case discussed with attending, Dr. Valentino Subjective Patient seen and examined at bedside. Offers no new complaints. Denies chest pain, SOB, palpitations, nausea, vomiting, abdominal pain, headaches, or lightheadedness. Objective Telemetry Reviewed: NSR rates in the 70s Last Vitals Pulse:69,Resp:19,BP:(!) 128/58,SpO2:97 %,Weight:67.5 kg (148 lb 13 oz) Temp Last 24 hrs: Temp Min: 96.4 ??F (35.8 ??C) Max: 98.2 ??F (36.8 ??C) Intake/Output Summary (Last 24 hours) at 10/20/2024 0641 Last data filed at 10/20/2024 0600 Gross per 24 hour Intake 1179.14 ml Output 2040 ml Net -860.86 ml Physical Exam GENERAL: No acute distress. HEENT: Anicteric. No pallor. Moist oral membranes. NECK: Supple. No carotid bruits. JVP normal. CHEST: Nontender. Clear to auscultation bilaterally. On 2 L NC. CARDIAC: Regular rate and rhythm. Nondisplaced PMI. ABDOMEN: Soft. Nontender. Normal bowel sounds. EXTREMITIES: Warm. Well-perfused. No edema. VASCULAR: + distal pulses SKIN: Warm and dry. No rashes. NEUROLOGIC: Alert. Grossly nonfocal. Medications Medications Scheduled Medication Ordered Dose/Rate, Route, Frequency Last Action aspirin chewable tablet 81 mg 81 mg, PO, Daily Given, 81 mg at 10/19 0756 atorvastatin (LIPITOR) tablet 80 mg 80 mg, PO, Daily Given, 80 mg at 10/19 0756 chlorhexidine (PERIDEX) 0.12 % oral solution 15 mL 15 mL, MT, BID Given, 15 mL at 10/19 0800 insulin glargine (LANtus/SEMGLEE) 100 units/mL injection 18 Units 18 Units, SC, Daily Given, 18 Units at 10/19 1634 insulin lispro (HumaLOG/ADMELOG) 100 units/mL injection 1-4 Units 1-4 Units, SC, NIGHTLY & 2AM Given, 1 Units at 10/20 0219 insulin lispro (HumaLOG/ADMELOG) 100 units/mL injection 1-6 Units 1-6 Units, SC, TID with meals Given, 3 Units at 10/19 1840 insulin lispro (HumaLOG/ADMELOG) 100 units/mL injection 1-6 Units 1-6 Units, SC, TID with meals Ordered levothyroxine (SYNTHROID, LEVOTHROID) tablet 25 mcg 25 mcg, PO, Daily 6AM Given, 25 mcg at 10/20 0543 senna-docusate (SENNA-S) 8.6-50 MG tablet 2 tablet 2 tablet, PO, Nightly Given, 2 tablet at 10/19 2007 sodium bicarbonate tablet 650 mg 650 mg, PO, BID Given, 650 mg at 10/19 2007 Continuous Medication Ordered Dose/Rate, Route, Frequency Last Action dextrose 5 % and sodium chloride 0.45 % with KCl 20 mEq/L infusion (D5-1/2NS-KCL20) (premix) 50 mL/hr, IV, Continuous Stopped, 10/19 1840 heparin (porcine) IV infusion 25,000 units in 500 mL 0.45% NaCl (premix) 12 Units/kg/hr, IV, Continuous Rate/Dose Verify, 14 Units/kg/hr at 10/20 06 PRN Medication Ordered Dose/Rate, Route, Frequency Last Action bisacodyl (DULCOLAX) suppository 10 mg 10 mg, RE, Daily PRN Ordered dextrose 50 % solution 12.5 g (Or Linked Group #1) 12.5 g, IV, Q15 Min PRN Ordered dextrose 50 % solution 25 g (Or Linked Group #1) 25 g, IV, Q15 Min PRN Ordered glucagon (GLUCAGEN) injection 1 mg (Or Linked Group #1) 1 mg, IM, Daily PRN Ordered glucose (GLUTOSE 15) 40 % oral gel 37.5 g (Or Linked Group #1) 1 Tube, PO, Q15 Min PRN Ordered glucose (GLUTOSE 15) 40 % oral gel 75 g (Or Linked Group #1) 2 Tube, PO, Q15 Min PRN Ordered heparin (porcine) 1000 unit/mL injection 2,100 Units 30 Units/kg, IV, Q6H PRN Ordered lactulose (ENULOSE) 10 gm/15 mL solution 20 g 30 mL, PO, Q4H PRN Ordered naloxone (NARCAN) 0.4 mg/mL injection 0.4 mg 0.4 mg, IV, Q5 Min PRN Ordered Relevant data reviewed Lab Results Component Value Date WBC 11.5 (H) 10/19/2024 HGB 8.9 (L) 10/19/2024 HCT 28.6 (L) 10/19/2024 MCV 98 10/19/2024 PLT 271 10/19/2024 Lab Results Component Value Date GLUC 210 (H) 10/20/2024 CALCIUM 7.2 (L) 10/19/2024 NA 140 10/19/2024 K 4.4 10/19/2024 CO2 14 (L) 10/19/2024 CL 106 10/19/2024 BUN 86 (H) 10/19/2024 CREAT 4.7 (H) 10/19/2024 Lab Results Component Value Date MG 1.6 10/19/2024 Lab Results Component Value Date HSTNT 4,276 (HH) 10/19/2024 HSTNT 4,239 (HH) 10/19/2024 HSTNT 4,171 (HH) 10/19/2024 Lab Results Component Value Date PROBNP >70,000 (H) 10/18/2024 Lab Results Component Value Date HGBA1C 8.7 (H) 10/19/2024 Imaging Studies All appropriate imaging studies within the past 24 hours reviewed (actual images) Echocardiogram 10/18/2024: -The left ventricle is severely dilated. There is eccentric hypertrophy. Left ventricular systolic function is severely decreased. The quantitative EF by 2D Poole biplane is 28%. The anterior and anteroseptal garcia are akinetic. The apex is dyskinetic. There is evidence of diastolic dysfunction, with elevated left atrial filling pressure. The left atrial cavity is severely dilated. -The right ventricle is normal in size. Right ventricular systolic function is normal. The estimated right ventricular systolic pressure is 52 mmHg. -There is moderate functional mitral regurgitation. There is mild tricuspid regurgitation. -There is a large left pleural effusion. -There is no previous study for comparison in our system. EKG 10/19/2024: Sign Linda Rivera PA-C 10/20/2024 6:41 AM * Donavon Rodgers MD - 10/19/2024 2:13 PM EST Images from the original note were not included. CRITICAL CARE PROGRESS NOTE LOS: 1 CODE:: Code Status Procedures Full Code Assessment and Plan Assessment: Neymar Wilder 79 y.o. w/ PMHx of stage V CKD (has not been on hemodialysis follows with nephrology in [place]), insulin-dependent diabetes, hypertension admitted to ICU for DKA on Glucomander and NSTEMI on heparin drip. Patient is covid positive. Plan by system: NEUROLOGY: No active issues. RESPIRATORY Pulmonary Edema Patient presents with a proBNP of 70,000, chest x-ray worse ending pulmonary edema. Given 80 mg of Lasix yesterday. Bilateral thoracentesis were performed yesterday - Follow-up pleural effusion cultures - Repeat IV 80 mg of Lasix today -On nasal cannula wean as tolerated CARDIOVASCULAR NSTEMI Acute decompensated HFrEF (LVEF 28%) Moderate functional MR HTN Patient presented with a proBNP of 70,000, and up trending troponins now at 4.2K. EKG showed sinus rhythm with poor R wave progression and nonspecific T wave abnormalities. Troponin elevated at 1830 -> 4171, ruling patient in for NSTEMI. He was transferred to for further evaluation and management. TTE on 10/18/2024 showed severely decreased LVSF with newly reduced LVEF of 28%. -Further cardiac ischemic workup by cardiology once medically stable - Continue heparin drip per ACS protocol - Continue aspirin 81 mg daily - Continue atorvastatin 80 mg daily - Continue telemetry GASTROENTEROLOGY No active issues. -N.p.o., resume diet when patient is able to transition off insulin drip NEPHROLOGY ALISA on stage III CKD Anion gap metabolic acidosis secondary to DKA Patient is at his baseline BUN and creatinine 80/4.8. Nephrology was consulted given the patient isCKD stage V and will need eventual cardiac cath. Per nephrology he currently does not need dialysis. Will continue trending lab work daily - Sodium bicarbonate tablets 650 mg twice daily, increase as per nephrology - BMP per Glucomander protocol ENDOCRINOLOGY Diabetic ketoacidosis Type 2 diabetes, insulin-dependent Patient presents from outside hospital due to URI symptoms and found to be in DKA with presenting lab values of 7.13, pCO2 of 25 and serum bicarb of 8. Patient was placed on DKA Glucomander protocol,however he has not had his gap closed and bicarbonate remains low. Current anion gap is 18 with bicarbonate of 14. Patient's beta hydroxybutyrate is 0.45. - Continue Glucomander DKA insulin drip - Glucomander protocol - Endocrine following, follow recommendations HEMATOLOGY/ ONCOLOGY BILLY Heparin drip for NSTEMI INFECTIOUS DISEASE COVID-positive -No acute interventions, monitor fever and WBC curves Pt seen and discussed w/ MD Donavon Amos MD PGY-1 Internal Medicine [place] Text Preferred ICU Check-list Code: Code Status Procedures Full Code Drips: dextrose 5 % and sodium chloride 0.45 % with KCl 20 mEq/L, 50 mL/hr, Last Rate: 50 mL/hr (10/19/24 1300) dextrose 5 % and sodium chloride 0.9 %, 10 mL/hr, Last Rate: Stopped (10/18/24 1553) heparin (porcine) IV infusion - low dose protocol, 12 Units/kg/hr (Order- Specific), Last Rate: 14 Units/kg/hr (10/19/24 1300) insulin regular (HumuLIN-R) IV infusion - Glucommander, 0-100 Units/hr, Last Rate: 1.5 Units/hr (10/19/24 1353) Lines: Peripheral IV - Single Lumen (Adult) 10/18/24 0522 median vein (underside of arm), right 20 gauge (Active) Number of days: 1 Peripheral IV - Single Lumen (Adult) 10/18/24 0523 median vein (underside of arm), left 20 gauge (Active) Number of days: 1 Enteric Access and Mcgee: Restraints: Mcgee: Evaluation for removal of Mcgee was discussed today on rounds. If no longer indicated, then it would be removed. Indication for keeping Mcgee: No mcgee DVT PPx: Heparin drip GI ppx: Not indicated Dispo: Admitted to MICU Subjective Overnight events: Patient was admitted yesterday, placed on heparin drip for NSTEMI. On DKA protocol. Morning evaluation: Patient was seen at bedside and he states he is feeling better. No acute complaints. Objective Last Vitals Temp: 96.8 ??F (36 ??C) (Tympanic) Pulse:76,Resp:17,BP:135/63,SpO2:96 %,Weight:67.5 kg (148 lb 13 oz) Physical Exam Constitutional: General: He is not in acute distress. Appearance: He is normal weight. He is not toxic-appearing. HENT: Head: Normocephalic. Eyes: Extraocular Movements: Extraocular movements intact. Pupils: Pupils are equal, round, and reactive to light. Cardiovascular: Rate and Rhythm: Regular rhythm. Tachycardia present. Heart sounds: No murmur heard. No gallop. Pulmonary: Effort: Pulmonary effort is normal. No respiratory distress. Breath sounds: No wheezing. Abdominal: General: Abdomen is flat. Bowel sounds are normal. Palpations: Abdomen is soft. Musculoskeletal: Right lower leg: No edema. Left lower leg: No edema. Skin: Capillary Refill: Capillary refill takes less than 2 seconds. Neurological: General: No focal deficit present. Mental Status: He is alert and oriented to person, place, and time. Psychiatric: Mood and Affect: Mood normal. Behavior: Behavior normal. Thought Content: Thought content normal. Judgment: Judgment normal. Intake/Output Summary (Last 24 hours) at 10/19/2024 1413 Last data filed at 10/19/2024 1300 Gross per 24 hour Intake 1662.33 ml Output 1900 ml Net -237.67 ml LABS: Results from last 7 days Lab Units 10/19/24 0120 10/18/24 0516 WHITE BLOOD CELL COUNT Thou/uL 15.9* 11.5* HEMOGLOBIN g/dL 8.5* 8.5* HEMATOCRIT % 27.0* 27.7* PLATELET COUNT Thou/uL 263 265 NEUTROS PCT % -- 86.0 LYMPHS PCT % -- 9.2 MONOS PCT % -- 4.3 EOS PCT % -- 0.0 BASOS PCT % -- 0.1 Recent Labs 10/18/24 0516 PTT 68* LABPROT 13.9* INR 1.2 Recent Labs 10/18/24 2213 10/18/24 2215 10/18/24 2311 10/19/24 0415 10/19/24 0744 10/19/24 1134 NA -- 145 143 142 141 142 K -- 4.2 4.4 4.3 4.6 4.3 CL -- 111* 110* 109* 109* 110* CO2 -- 14* 13* 14* 14* 14* ANIONGAP -- 20* 20* 19* 18* 18* BUN -- 91* 88* 84* 84* 84* CREAT -- 5.2* 5.0* 5.0* 4.8* 4.8* LACTIC 1.2 -- -- -- -- -- No results for input(s): AST , ALT , ALKPHOS , BILITOT , BILIDIR , ALBUMIN , PROT in the last 72 hours. No results for input(s): PHA , PCO2 , PO2 , HCO3 in the last 72 hours. Recent Cultures: Culture Date Value Ref Range Status 10/18/2024 No aerobes and anaerobes isolated after <24 hours Preliminary 10/18/2024 Preliminary No fungi isolated. Culture will be held for two weeks. 10/18/2024 PENDING Preliminary IMAGING: XR Chest 1 view-Portable Result Date: 10/19/2024 EXAMINATION: XR CHEST CLINICAL INFORMATION: Post thoracentesis. COMPARISON: XR Chest 10/18/2024 TECHNIQUE: Frontal views of the chest was obtained. FINDINGS: Heart is mildly enlarged. Diffuse pulmonary edema is slightly improved compared to the prior exam. Left pleural effusion is improved. Improved pulmonary edema and left pleural effusion. US Guided Bedside Thoracentesis-Bilateral Result Date: 10/19/2024 PROCEDURE: Ultrasound-guided thoracentesis INDICATION: Bilateral pleural effusion. SPECIMEN: Specimen collected as requested. Sample left with bedside RN. ACCESS: 6 [place] [id number]-[id number] closed needle/catheter system REQUESTING PRACTITIONER: Cheryl Blue MD CLINICIAN(S): CHELLY Gaitan CONSENT: Informed consent was obtained from the patient prior to the procedure. During this process, the procedure and potential alternatives were explained along with the intended outcome and benefits.The risks of the procedure, including the possibility of an unsuccessful procedure as well as the risk of not doing the procedure were discussed. the patient was given the opportunity to ask any quest ions regarding the procedure and appeared competent to make medical decisions. A signed consent form which documents this discussion was placed in the medical record. A timeout procedure was performed. HISTORY: Neymar Wilder is a 79 y.o. old male with a suspected bilateral pleural effusion. The patient was referred for an ultrasound-guided thoracentesis. MEDICATIONS: 10ml 1% lidocaine. TECHNIQUE/FINDINGS: Appropriate pre-procedure medical history and imaging studies were reviewed. The ultrasound machine was brought to the patients bedside. Ultrasound images of the right thorax were obtained to localize a moderate pleural effusion. Images were permanently saved to the record. An area of the patient's back was prepped and draped in the standard sterile fashion. 10 mL of 1% lidocaine was used to obtain local anesthesia of the skin and deeper tissues. A standard small bore needle was introduced to sample fluid and demonstrated a safe access route. There was no evidence of traversingadjacent organs or vascular structures. A 6 [place] Hlzm-T-Hhtgdwup closed needle/catheter system was utilized for access. 850 mL of clear devorah fluid was aspirated before drainage ceased. The catheter was removed and a sterile dressing applied. Ultrasound images of the left thorax were obtained to localize a moderate pleural effusion. Images were permanently saved to the record. An area of the patient's back was prepped and draped in the standard sterile fashion. 10 mL of 1% lidocaine was used to obtain local anesthesia of the skin and deeper tissues. A standard small bore needle was introduced to sample fluid and demonstrated a safe access route. There was no evidence of traversing adjacent organs or vascular structures. A 6 [place] Npgz-H-Ttrfzbwf closed needle/catheter system was utilized for access. 550 mL of clear devorah fluid was aspirated before drainage ceased. The catheter was removed and a sterile dressing applied. The patient tolerated the procedure well without evidence of complications. Successful bilateral ultrasound-guided diagnostic and therapeutic thoracentesis yielding 850 mL of clear devorah fluid from the right and 550 mL of clear devorah fluid from the left. This procedure was performed and dictated by CHELLY Gaitan XR Chest 1 view-Portable Result Date: 10/18/2024 EXAMINATION: XR CHEST CLINICAL INFORMATION: hypoxic sob eval for pulm edema COMPARISON: Chest radiograph 10/18/2024 at 5:27 AM TECHNIQUE: Frontal views of the chest were obtained. FINDINGS: Lungs are slightly hypoexpanded. Interval worsening of patchy bilateral opacities with central and basilar predominance. Trace bilateral pleural effusions. No pneumothorax. The cardiomediastinal silhouette is unchanged from prior. No acute osseous abnormality. 1. Interval worsening of now moderate pulmonary edema. 2. Trace bilateral pleural effusions unchanged. Interpreted by: Mitchell Ascencio DO Technical Operations Vice President DIET/NUTRITION: Diet/Nutrition Received: NPO Diet NPO; Meds Behavioral/Sedation scales: CAM-ICU Delirium Present: Negative Rea Agitation Sedation Scale (RASS) / Modified RASS: 0-->alert and calm Ventilator settings: Associated attestation - Kristopher Hickey MD - 10/19/2024 11:18 PM EST [facility] Attestation note: Kristopher Hickey MD Critical care medicine attestation: I have personally examined the patient, reviewed labs, radiologic findings and medications. I agreewith Dr. Rodgers' note. Plan was discussed on rounds. Please see my note from the same date. Kristopher Hickey MD 10/19/2024 11:18 PM * Kristopher Hickey MD - 10/19/2024 9:55 AM EST Images from the original note were not included. Division of Pulmonary, Critical Care, and Sleep Medicine [address] [facility], [address], [place] [address] Critical Care Progress Note Assessment & Plan Neymar Wilder is a 79 y.o. male who is critically ill/injured and/or remains at high risk nallely threatening complications requiring critical care management given the following acute conditions and comorbid processes: Active Problems: Diabetic ketoacidosis NSTEMI Acute pulmonary edema Small bilateral pleural effusion Metabolic acidosis Comorbid Conditions: CKD stage V Total LOS: 1 days Plan by system Neuro: CAM: CAM-ICU Delirium Present: Negative Rea Agitation Sedation Scale (RASS) / Modified RASS: 0-->alert and calm BILLY Resp: Bilateral pleural effusion S/p thoracentecis Acute pulm edema Continue furosemide CV: NSTEMI On IV Heparin Acute on chronic systolic HF Continue diuresis Keep 1-2L net negative in 24 hours Continue ASA, Statin >Echo: 10/18/23 The left ventricle is severely dilated. There is eccentric hypertrophy. Left ventricular systolic function is severely decreased. The quantitative EF by 2D Poole biplane is 28%. The anterior and anteroseptal garcia are akinetic. The apex is dyskinetic. There is evidence of diastolic dysfunction, with elevated left atrial filling pressure. The left atrial cavity is severely dilated. The right ventricle is normal in size. Right ventricular systolic function is normal. The estimatedright ventricular systolic pressure is 52 mmHg. There is moderate functional mitral regurgitation. There is mild tricuspid regurgitation. There is a large left pleural effusion. There is no previous study for comparison in our system. Dr. Pushpa Gallegos was notified by [place] text at 12:36 PM. GI: >Nutrition: Diet/Nutrition Received: NPO Diet NPO; Meds Renal: CKD 5, stable Monitor >Intake & Output Intake/Output Summary (Last 24 hours) at 10/19/2024 0956 Last data filed at 10/19/2024 0900 Gross per 24 hour Intake 1396.76 ml Output 1900 ml Net -503.24 ml Endo: Diabetic ketoacidosis Glucomander protocol Endocrine consult Hypothyroidism On Levothyroxine Heme/Onc: Hgb stable ID: Leucocytosis COVID 19 infection >Antibiotics: Drips: dextrose 5 % and sodium chloride 0.45 % with KCl 20 mEq/L, 50 mL/hr, Last Rate: 50 mL/hr (10/19/24 09) dextrose 5 % and sodium chloride 0.9 %, 10 mL/hr, Last Rate: Stopped (10/18/24 1553) heparin (porcine) IV infusion - low dose protocol, 12 Units/kg/hr (Order- Specific), Last Rate: 14 Units/kg/hr (10/19/24899) insulin regular (HumuLIN-R) IV infusion - Glucommander, 0-100 Units/hr, Last Rate: 1.7 Units/hr (10/19/24 0908) Lines: Peripheral IV - Single Lumen (Adult) 10/18/24 0522 median vein (underside of arm), right 20 gauge (Active) Number of days: 1 Peripheral IV - Single Lumen (Adult) 10/18/24 0523 median vein (underside of arm), left 20 gauge (Active) Number of days: 1 Evaluation for Central line access removal was discussed today on rounds. If central line was no longer needed, then it would be removed. Indication for keeping central line: Restraints: Mobility: Mcgee: Evaluation for removal of Mcgee was discussed today on rounds. If no longer indicated, then it would be removed. Indication for keeping Mcgee: No mcgee GI Prophylaxis (if needed): NA DVT Prophylaxis: SCD Use: Device is properly applied and functional, Heparin gtt CODE STATUS: full DISPOSITION: MICU I provided 35 minutes of Critical Care time evaluating, providing care and managing this criticallyill/injured patient. I affirm that this patient is critically ill and at high risk for sudden, fatal deterioration due to one or more of the above active issues. I managed/supervised life- or organ-supporting interventions that require frequent physician assessment and reassessment. Critical care time was spent, but not limited to, the review of laboratory test results, medications, relevant radiology and discussing this critically ill patient's care with other medical staff in the unit or at the nursing station onthe floor where the patient is located. My full attention was given to the management of this patient and I was immediately available during this same time. This time did not include any separate billable procedures. Subjective/Overnight Admitted to the ICU Objective SpO2:99 %,O2 Device: high flow nasal cannula, Flow (L/min) (Oxygen Therapy): 40, Oxygen Concentration (%): (S) 60 (inc back. pt desatting) Temp Last 24 hrs: Temp Min: 96.4 ??F (35.8 ??C) Max: 99.4 ??F (37.4 ??C) WBC Trend White Blood Cell Count Date Value Ref Range Status 10/19/2024 15.9 (H) 4.0 - 11.0 Thou/uL Final 10/18/2024 11.5 (H) 4.0 - 11.0 Thou/uL Final Last Vitals: Pulse:78, Resp:20, BP:BP Min: 128/67 Max: 148/71 MAP: Physical Exam: General: Intubated stated age and cooperative HEENT: supple without LAD Lungs: clear to auscultation bilaterally Chest wall: no tenderness Heart: regular rate and rhythm, S1, S2 normal, no murmur, click, rub or gallop Abdomen: soft, non-tender; bowel sounds normal; no masses, no organomegaly Extremities: atraumatic, no cyanosis or edema Neuro: non focal Skin: Warm, no rash Intake & Output: I/O last 3 completed shifts: In: 1244.8 [I.V.:1141.8; IV Piggyback:103] Out: 1900 [Urine:1900] Intake/Output Summary (Last 24 hours) at 10/19/2024 0956 Last data filed at 10/19/2024 0900 Gross per 24 hour Intake 1396.76 ml Output 1900 ml Net -503.24 ml Procedures: Medications: Medication/MAR Report: Medications Scheduled Medication Ordered Dose/Rate, Route, Frequency Last Action aspirin chewable tablet 81 mg 81 mg, PO, Daily Given, 81 mg at 10/19 0756 atorvastatin (LIPITOR) tablet 80 mg 80 mg, PO, Daily Given, 80 mg at 10/19 0756 chlorhexidine (PERIDEX) 0.12 % oral solution 15 mL 15 mL, MT, BID Given, 15 mL at 10/19 0800 senna-docusate (SENNA-S) 8.6-50 MG tablet 2 tablet 2 tablet, PO, Nightly Given, 2 tablet at 10/18 1916 Continuous Medication Ordered Dose/Rate, Route, Frequency Last Action dextrose 5 % and sodium chloride 0.45 % with KCl 20 mEq/L infusion (D5-1/2NS-KCL20) (premix) 50 mL/hr, IV, Continuous Rate/Dose Verify, 50 mL/hr at 10/19 899 heparin (porcine) IV infusion 25,000 units in 500 mL 0.45% NaCl (premix) 12 Units/kg/hr, IV, Continuous Rate/Dose Verify, 14 Units/kg/hr at 10/19 899 insulin regular (HumuLIN-R) IV infusion 100 units in 100 mL NS STOCK - Glucommander 0-100 Units/hr, IV, Continuous Rate/Dose Change, 1.7 Units/hr at 10/19 907 PRN Medication Ordered Dose/Rate, Route, Frequency Last Action bisacodyl (DULCOLAX) suppository 10 mg 10 mg, RE, Daily PRN Ordered dextrose 5 % and sodium chloride 0.9 % (D5NS) infusion 10 mL/hr, IV, Continuous PRN Stopped, 10/18 155 dextrose 50 % solution 5-25 g (Or Linked Group #1) 5-25 g, IV, Q15 Min PRN Ordered glucagon (GLUCAGEN) injection 1 mg (Or Linked Group #1) 1 mg, IM, Daily PRN Ordered glucose (GLUTOSE 15) 40 % oral gel 0-75 g (Or Linked Group #1) 0-2 Tube, PO, Q15 Min PRN Ordered heparin (porcine) 1000 unit/mL injection 2,100 Units 30 Units/kg, IV, Q6H PRN Ordered lactulose (ENULOSE) 10 gm/15 mL solution 20 g 30 mL, PO, Q4H PRN Ordered naloxone (NARCAN) 0.4 mg/mL injection 0.4 mg 0.4 mg, IV, Q5 Min PRN Ordered Relevant data reviewed: Hemoglobin, Hematocrit and Platelets Recent Labs 10/18/24 0516 10/19/24 0120 HGB 8.5* 8.5* HCT 27.7* 27.0* PLT 265 263 Electrolytes and Lactate Recent Labs 10/18/24 2213 10/18/24 2215 10/18/24 2311 10/19/24 0415 10/19/24 0744 NA -- 145 143 142 141 K -- 4.2 4.4 4.3 4.6 CL -- 111* 110* 109* 109* CO2 -- 14* 13* 14* 14* ANIONGAP -- 20* 20* 19* 18* BUN -- 91* 88* 84* 84* CREAT -- 5.2* 5.0* 5.0* 4.8* LACTIC 1.2 -- -- -- -- Hepatic Testing No results for input(s): AST , ALT , ALKPHOS , BILITOT , BILIDIR , ALBUMIN , PROT in the last 72 hours. Coagulation Studies Recent Labs 10/18/24 0516 PTT 68* LABPROT 13.9* INR 1.2 ABG Trends No results for input(s): PHA , PCO2 , PO2 , HCO3 in the last 72 hours. Recent Cultures: Culture Date Value Ref Range Status 10/18/2024 No aerobes and anaerobes isolated after <24 hours Preliminary 10/18/2024 Preliminary No fungi isolated. Culture will be held for two weeks. 10/18/2024 No aerobes and anaerobes isolated after <24 hours Preliminary Imaging Studies: Appropriate radiology imaging was reviewed (actual images) and compared to prior where applicable. Specific /additional concerns as highlighted below if appropriate. This report was generated using [employer] dictation software. Although every attempt has been made by the provider to proofread this document, occasional misspellings and typographical errors may still be present. Sign: Kristopher Hickey MD 10/19/2024 9:56 AM * Linda Rivera PA-C - 10/19/2024 6:33 AM EST Images from the original note were not included. [facility] Cardiology Transfer Service Progress Note Chief Complaint: NSTEMI Assessment & Plan 79 year old male patient with a PMHx of CKD stage V (not on HD), HTN, and diabetes who intially presented to OSH with URI symptoms and increasing SOB. Patient was found to be hypoxic with sats in themid 80s and was placed on 5 L NC. CXR demonstrated opacities consistent with pneumonia versus pulmonary edea. Blood sugar was found to be greater than 700 with severe anion gap metabolic acidosis with pH of 7.1, consistent with diabetic ketoacidosis. Additionally patient was tested positive for COVID. EKG showed sinus rhythm with poor R wave progression and nonspecific T wave abnormalities. Troponin elevated at 1830 -> 4171, ruling patient in for NSTEMI. He was transferred to for further e valuation and management. TTE on 10/18/2024 showed severely decreased LVSF with newly reduced LVEF of28%. Assessment NSTEMI Acute decompensated HFrEF (LVEF 28%) Moderate functional MR Bilateral pleural effusions, s/p bilateral thoracentesis 10/18 HTN Acute hypoxic respiratory failure, in the setting of COVID infection and pulmonary congestion ALISA on CKD stage V Diabetic ketoacidosis Severe metabolic acidosis with elevated anion gap Hyperglycemia Plan NSTEMI, type 1 vs type 2 -HsT: 1,830 -> 4,171 -Patient remains asymptomatic from a cardiac standpoint -EKG demonstrates NSR with poor R wave progression and nonspecific T wave abnormalities -Given finding of reduced LVEF on echocardiogram, will need to obtain previous records to see if this finding is new. See echo report below -Troponin elevation can be demand ischemia due to viral pneumonia and DKA. Cannot rule out IA, COVID myocarditis, or stress induced cardiomyopathy at this point. Plan for further ischemic workup oncepatient is medically stable, unless he develops chest pain, ventricular arrhythmias, or cardiogenicshock -Continue heparin gtt per ACS protocol -Continue ASA 81 mg daily -Continue atorvastatin 80 mg daily -Continuous telemetry monitoring -Keep K>4, Mg >2 Acute decompensated HFrEF (LVEF 28%), NYHA class III, AHA stage C Moderate functional MR Bilateral pleural effusions, s/p bilateral thoracentesis 10/18 HTN -TTE 10/18/2024: LV severely dilated, LVSF severely decreased, LVEF 28%. RVSF normal, RV systolic pressure 52 mmHg. Moderate functional MR. Large left pleural effusion. See full report below -I/Os: (-) 700 mL/ 24 hours -Diuresis: Continue IV Lasix 40 mg daily, goal net negative 1-2 L/ 24 hours -GDMT: -BB: On home carvedilol 6.25 mg BID. Consider resuming once more medically stable -MRA: On home spironolactone 25 mg daily. Continue to hold given ALISA on CKD -SGLT2i: Hold given current DKA -YULY/ARB/ARNI: Hold given ALISA on CKD -Strict I/Os, daily standing weights SVT -Tele with brief runs of NSVT, PVCs -Patient remains asymptomatic -Will plan to resume beta irena when patient is more medically stable -Continuous telemetry monitoring -Keep K>4, Mg >2 Diabetic ketoacidosis Severe metabolic acidosis with elevated anion gap Hyperglycemia -Patient currently on an insulin drip -Continue management as per primary team Patient will need an outpatient cardiology follow up prior to discharge. [facility] cardiology will continue to follow. Case discussed with attending, Dr. Valentino. Subjective Patient seen and examined at bedside. Offers no new complaints. Reports feeling well overall. Denies chest pain, SOB, palpitations, nausea, vomiting, abdominal pain, headaches or lightheadedness. Objective Telemetry Reviewed: NSR rates in the 70s-80s, brief runs of NSVT Last Vitals Pulse:85,Resp:20,BP:(!) 142/71,SpO2:(!) 91 %,Weight:67.5 kg (148 lb 13 oz) Temp Last 24 hrs: Temp Min: 97.2 ??F (36.2 ??C) Max: 99.4 ??F (37.4 ??C) Intake/Output Summary (Last 24 hours) at 10/19/2024 0633 Last data filed at 10/19/2024 0600 Gross per 24 hour Intake 1173.06 ml Output 1900 ml Net -726.94 ml Physical Exam GENERAL: No acute distress. HEENT: Anicteric. No pallor. Moist oral membranes. NECK: Supple. No carotid bruits. JVP normal. CHEST: Nontender. Clear to auscultation bilaterally. On 6 L NC. CARDIAC: Regular rate and rhythm. Nondisplaced PMI. ABDOMEN: Soft. Nontender. Normal bowel sounds. EXTREMITIES: Warm. Well-perfused. No edema. VASCULAR: + distal pulses SKIN: Warm and dry. No rashes. NEUROLOGIC: Alert. Grossly nonfocal. Medications Medications Scheduled Medication Ordered Dose/Rate, Route, Frequency Last Action aspirin chewable tablet 81 mg 81 mg, PO, Daily Ordered atorvastatin (LIPITOR) tablet 80 mg 80 mg, PO, Daily Given, 80 mg at 10/18 1915 chlorhexidine (PERIDEX) 0.12 % oral solution 15 mL 15 mL, MT, BID Given, 15 mL at 10/18 2013 senna-docusate (SENNA-S) 8.6-50 MG tablet 2 tablet 2 tablet, PO, Nightly Given, 2 tablet at 10/18 1915 Continuous Medication Ordered Dose/Rate, Route, Frequency Last Action dextrose 5 % and sodium chloride 0.45 % with KCl 20 mEq/L infusion (D5-1/2NS-KCL20) (premix) 50 mL/hr, IV, Continuous Rate/Dose Verify, 50 mL/hr at 10/19 599 heparin (porcine) IV infusion 25,000 units in 500 mL 0.45% NaCl (premix) 12 Units/kg/hr, IV, Continuous Rate/Dose Verify, 14 Units/kg/hr at 10/19 599 insulin regular (HumuLIN-R) IV infusion 100 units in 100 mL NS STOCK - Glucommander 0-100 Units/hr, IV, Continuous Rate/Dose Verify, 2.7 Units/hr at 10/19 599 PRN Medication Ordered Dose/Rate, Route, Frequency Last Action bisacodyl (DULCOLAX) suppository 10 mg 10 mg, RE, Daily PRN Ordered dextrose 5 % and sodium chloride 0.9 % (D5NS) infusion 10 mL/hr, IV, Continuous PRN Stopped, 10/18 1552 dextrose 50 % solution 5-25 g (Or Linked Group #1) 5-25 g, IV, Q15 Min PRN Ordered glucagon (GLUCAGEN) injection 1 mg (Or Linked Group #1) 1 mg, IM, Daily PRN Ordered glucose (GLUTOSE 15) 40 % oral gel 0-75 g (Or Linked Group #1) 0-2 Tube, PO, Q15 Min PRN Ordered heparin (porcine) 1000 unit/mL injection 2,100 Units 30 Units/kg, IV, Q6H PRN Ordered lactulose (ENULOSE) 10 gm/15 mL solution 20 g 30 mL, PO, Q4H PRN Ordered naloxone (NARCAN) 0.4 mg/mL injection 0.4 mg 0.4 mg, IV, Q5 Min PRN Ordered Relevant data reviewed Lab Results Component Value Date WBC 15.9 (H) 10/19/2024 HGB 8.5 (L) 10/19/2024 HCT 27.0 (L) 10/19/2024 MCV 97 10/19/2024 PLT 263 10/19/2024 Lab Results Component Value Date GLUC 133 (H) 10/19/2024 CALCIUM 7.0 (L) 10/19/2024 NA 142 10/19/2024 K 4.3 10/19/2024 CO2 14 (L) 10/19/2024 CL 110 (H) 10/19/2024 BUN 84 (H) 10/19/2024 CREAT 4.8 (H) 10/19/2024 Lab Results Component Value Date MG 1.7 10/19/2024 Lab Results Component Value Date HSTNT 4,171 (HH) 10/19/2024 HSTNT 2,403 (HH) 10/18/2024 HSTNT 1,830 (HH) 10/18/2024 Lab Results Component Value Date PROBNP >70,000 (H) 10/18/2024 Imaging Studies All appropriate imaging studies within the past 24 hours reviewed (actual images) Echocardiogram 10/18/2024: -The left ventricle is severely dilated. There is eccentric hypertrophy. Left ventricular systolic function is severely decreased. The quantitative EF by 2D Poole biplane is 28%. The anterior and anteroseptal garcia are akinetic. The apex is dyskinetic. There is evidence of diastolic dysfunction, with elevated left atrial filling pressure. The left atrial cavity is severely dilated. -The right ventricle is normal in size. Right ventricular systolic function is normal. The estimated right ventricular systolic pressure is 52 mmHg. -There is moderate functional mitral regurgitation. There is mild tricuspid regurgitation. -There is a large left pleural effusion. -There is no previous study for comparison in our system. EKG 10/19/2024: Sign Linda Rivera PA-C 10/19/2024 6:33 AM * Pushpa Gallegos MD - 10/18/2024 7:53 AM EST Images from the original note were not included. Division of Pulmonary, Critical Care, and Sleep Medicine [address] [facility], [address], [place] [address] Critical Care Progress Note Assessment & Plan Neymar Wilder is a 79 y.o. male who is critically ill/injured and/or remains at high risk nallely threatening complications requiring critical care management given the following acute conditions and comorbid processes: Active Problems: DKA NSTEMI Metabolic acidosis Acute hypoxemic respiratory failure Pulmonary edema Hypocalcemia Comorbid Conditions: CKD Stage V Diabetes CHF Total LOS: 0 days Plan by system Neuro: Mentating appropriately Resp: Pulmonary edema - Wean supplemental O2 as tolerated - Will need lasix once out of DKA phase CV: NSTEMI --> ProBNP 70,000 on admission - Continue heparin drip - Cardiology consult - Formal TTE >Echo: The left ventricle is severely dilated. There is eccentric hypertrophy. Left ventricular systolic function is severely decreased. The quantitative EF by 2D Poole biplane is 28%. The anterior and anteroseptal garcia are akinetic. The apex is dyskinetic. There is evidence of diastolic dysfunction, with elevated left atrial filling pressure. The left atrial cavity is severely dilated. The right ventricle is normal in size. Right ventricular systolic function is normal. The estimatedright ventricular systolic pressure is 52 mmHg. There is moderate functional mitral regurgitation. There is mild tricuspid regurgitation. There is a large left pleural effusion. There is no previous study for comparison in our system. GI: - Diet once transitioned off drip >Nutrition: Diet NPO Renal: Creatinine appears at baseline compared to 07/2023 notes There were discussions of HD with his banking specialist Dr. Pelon Smith Electrolyte monitoring Avoid nephrotoxins, monitor urine output Get nephrology on board given likely need for cardiac cath >Intake & Output No intake or output data in the 24 hours ending 10/18/24 4044 Endo: Glucommander protocol Gentle IV fluids given concern for volume overload Heme/Onc: On heparin drip for NSTEMI ID: No signs or symptoms of infection Monitor off antibiotics >Antibiotics: Drips: dextrose 5 % and sodium chloride 0.9 %, 10 mL/hr heparin (porcine) IV infusion - low dose protocol, 12 Units/kg/hr (Order- Specific), Last Rate: 12 Units/kg/hr (10/18/24 0557) insulin regular (HumuLIN-R) IV infusion - Glucommander, 0-100 Units/hr, Last Rate: 10 Units/hr (10/18/24 0759) Lines: Peripheral IV - Single Lumen (Adult) 10/18/24 0522 median vein (underside of arm), right 20 gauge (Active) Number of days: 0 Peripheral IV - Single Lumen (Adult) 10/18/24 0522 median vein (underside of arm), right 20 gauge (Active) Number of days: 0 Peripheral IV - Single Lumen (Adult) 10/18/24 0523 median vein (underside of arm), left 20 gauge (Active) Number of days: 0 Evaluation for Central line access removal was discussed today on rounds. If central line was no longer needed, then it would be removed. Indication for keeping central line: Restraints: Mobility: Mcgee: Evaluation for removal of Mcgee was discussed today on rounds. If no longer indicated, then it would be removed. Indication for keeping Mcgee: GI Prophylaxis (if needed): N/A DVT Prophylaxis: , Heparin drip CODE STATUS: Full DISPOSITION: ICU I provided 35 minutes of Critical Care time evaluating, providing care and managing this criticallyill/injured patient. I affirm that this patient is critically ill and at high risk for sudden, fatal deterioration due to one or more of the above active issues. I managed/supervised life- or organ-supporting interventions that require frequent physician assessment and reassessment. Critical care time was spent, but not limited to, the review of laboratory test results, medications, relevant radiology and discussing this critically ill patient's care with other medical staff in the unit or at the nursing station ont floor where the patient is located. My full attention was given to the management of this patient and I was immediately available during this same time. This time did not include any separate billable procedures. Subjective/Overnight Admitted with above findings Objective SpO2:92 %,O2 Device: nasal cannula, Flow (L/min) (Oxygen Therapy): 5, Temp Last 24 hrs: Temp Min: 97.5 ??F (36.4 ??C) Max: 97.5 ??F (36.4 ??C) WBC Trend White Blood Cell Count Date Value Ref Range Status 10/18/2024 11.5 (H) 4.0 - 11.0 Thou/uL Final Last Vitals: Pulse:89, Resp:18, BP:BP Min: 117/59 Max: 130/68 MAP: Physical Exam: General: alert, appears stated age and cooperative HEENT: supple without LAD Lungs: clear to auscultation bilaterally Chest wall: no tenderness Heart: regular rate and rhythm, S1, S2 normal, no murmur, click, rub or gallop Abdomen: soft, non-tender; bowel sounds normal; no masses, no organomegaly Extremities: atraumatic, no cyanosis or edema Neuro: non focal Skin: Warm, no rash Intake & Output: No intake/output data recorded. No intake or output data in the 24 hours ending 10/18/24 0754 Procedures: Medications: Medication/MAR Report: Medications Scheduled Medication Ordered Dose/Rate, Route, Frequency Last Action calcium gluconate IVPB 2 g in 100 mL NS PREMIX 2 g, IV, Once New Bag, 2 g at 10/18 720 chlorhexidine (PERIDEX) 0.12 % oral solution 15 mL 15 mL, MT, BID Given, 15 mL at 10/18 07 senna-docusate (SENNA-S) 8.6-50 MG tablet 2 tablet 2 tablet, PO, Nightly Ordered Continuous Medication Ordered Dose/Rate, Route, Frequency Last Action heparin (porcine) IV infusion 25,000 units in 500 mL 0.45% NaCl (premix) 12 Units/kg/hr, IV, Continuous New Bag, 12 Units/kg/hr at 10/18 0523 insulin regular (HumuLIN-R) IV infusion 100 units in 100 mL NS STOCK - Glucommander 0-100 Units/hr, IV, Continuous Rate/Dose Change, 10 Units/hr at 10/18 0734 PRN Medication Ordered Dose/Rate, Route, Frequency Last Action bisacodyl (DULCOLAX) suppository 10 mg 10 mg, RE, Daily PRN Ordered dextrose 5 % and sodium chloride 0.9 % (D5NS) infusion 10 mL/hr, IV, Continuous PRN Ordered dextrose 50 % solution 5-25 g (Or Linked Group #1) 5-25 g, IV, Q15 Min PRN Ordered glucagon (GLUCAGEN) injection 1 mg (Or Linked Group #1) 1 mg, IM, Daily PRN Ordered glucose (GLUTOSE 15) 40 % oral gel 0-75 g (Or Linked Group #1) 0-2 Tube, PO, Q15 Min PRN Ordered heparin (porcine) 1000 unit/mL injection 2,100 Units 30 Units/kg, IV, Q6H PRN Ordered lactulose (ENULOSE) 10 gm/15 mL solution 20 g 30 mL, PO, Q4H PRN Ordered naloxone (NARCAN) 0.4 mg/mL injection 0.4 mg 0.4 mg, IV, Q5 Min PRN Ordered Relevant data reviewed: Hemoglobin, Hematocrit and Platelets Recent Labs 10/18/24 0516 HGB 8.5* HCT 27.7* PLT 265 Electrolytes and Lactate Recent Labs 10/18/24 0516 NA 140 K 4.9 CL 104 CO2 8* ANIONGAP 28* BUN 83* CREAT 4.9* Hepatic Testing No results for input(s): AST , ALT , ALKPHOS , BILITOT , BILIDIR , ALBUMIN , PROT in the last 72 hours. Coagulation Studies Recent Labs 10/18/24 0516 PTT 68* LABPROT 13.9* INR 1.2 ABG Trends No results for input(s): PHA , PCO2 , PO2 , HCO3 in the last 72 hours. Recent Cultures: No results found for: CULTURE Imaging Studies: Appropriate radiology imaging was reviewed (actual images) and compared to prior where applicable. Specific /additional concerns as highlighted below if appropriate. This report was generated using [employer] Speaking dictation software. Although every attempt has been made by the provider to proofread this document, occasional misspellings and typographical errors may still be present. Sign: Pushpa Gallegos MD 10/18/2024 7:54 AM documented in this encounter H&P Notes * Cheryl Blue MD - 10/18/2024 8:33 AM EST Images from the original note were not included. [facility] MICU H&P LOS: 0 CODE: Code Status Procedures Full Code Assessment and Plan Problem List Principal Problem: DKA (diabetic ketoacidosis) (HCC) (POA: Yes) Resolved Problems: Assessment Neymar Wilder 79 y.o. w/ PMHx of stage V CKD (has not been on hemodialysis follows with nephrology in [place]), insulin-dependent diabetes, hypertension admitted to ICU for DKA on Glucomander and NSTEMI on heparin drip. Initial ED significant labs: -Serum BG of 569 -BUN/creatinine ratio of 83/4.9 (patient has a history of stage IV CKD, appears at his baseline) -Calcium 6.6 -Anion gap of 28 secondary to DKA, serum bicarb 8 -High sensitive troponin of 1830 -Leukocytosis of 11.5 -H/H of 8.5/27.7 (patient has a history of CKD and anemia of chronic disease) -VBG with pH of 7.8, pCO2 of 25, serum bicarb was 8 consistent with anion gap metabolic acidosis secondary to DKA -Osmolality of 359, beta hydroxybutyrate of 3.63 -proBNP of 70,000 ED imaging: -Chest x-ray showing worsening moderate pulmonary edema with trace bilateral pleural effusions ED interventions: -Glucomander for DKA Consults: -Cardiology for NSTEMI -Nephrology for history of stage V CKD (with prior discussions with patient's banking specialist regarding possible initiation of HD) Plan by system NEUROLOGY: BILLY Behavioral/Sedation scales CAM-ICU Delirium Present: Negative RESPIRATORY Pulmonary edema Admission proBNP of 70,000 Chest x-ray concerning for worsening moderate pulmonary edema with trace bilateral pleural effusions -Follow-up cytology send studies from bilateral thoracentesis performed by procedure team -Diuresis with 40 of IV Lasix -Patient initially on 4 L nasal cannula and was hypoxic in the low 90s requiring oxime mask howeverdespite OxyMask patient was persistently hypoxic in the mid 80s required high flow nasal cannula currently at FiO2 of 100 and flow of 40. -Wean high flow as tolerated -Follow-up VBG CARDIOVASCULAR NSTEMI Admission proBNP of 70,000 The left ventricle is severely dilated. There is eccentric hypertrophy. Left ventricular systolic function is severely decreased. The quantitative EF by 2D Poole biplane is 28%. The anterior and anteroseptal garcia are akinetic. The apex is dyskinetic. There is evidence of diastolic dysfunction, with elevated left atrial filling pressure. The left atrial cavity is severely dilated. The right ventricle is normal in size. Right ventricular systolic function is normal. The estimatedright ventricular systolic pressure is 52 mmHg. There is moderate functional mitral regurgitation. There is mild tricuspid regurgitation. There is a large left pleural effusion. There is no previous study for comparison in our system. -Patient obtained TTE results noted above -Cards evaluated patient recommending continuation with heparin drip, aspirin, atorvastatin 80 mg, and plan for ischemic evaluation when medically stable GASTROENTEROLOGY N.p.o. except meds once patient is able to be transitioned off insulin drip, can resume diet and bridge insulin drip to subcu insulin Nutrition Diet/Nutrition Received: NPO Diet NPO; Meds NEPHROLOGY History of stage V CKD (there were discussions with patient's prior banking specialist Dr. Pelon Smith regarding HD) Initial BUN/creatinine of 83/4.9 (seems at patient's baseline) Metabolic acidosis secondary to DKA -Monitor electrolytes -Monitor I's and O's -Avoid nephrotoxic agents -Follow-up nephrology recommendations given likely need of cardiac catheterization after DKA resolves -Trend BMP every 2 hours Intake & Output Intake/Output Summary (Last 24 hours) at 10/18/2024 1702 Last data filed at 10/18/2024 1214 Gross per 24 hour Intake 18 ml Output -- Net 18 ml ENDOCRINOLOGY DKA -Insulin drip with Glucomander protocol -Gentle fluid resuscitation given concerning signs of volume overload with proBNP of 70,000 and chest x-ray showing pulmonary edema -Patient is to remain n.p.o. until anion gap closes x 2 HEMATOLOGY/ ONCOLOGY Continue with heparin drip for NSTEMI INFECTIOUS DISEASE BILLY -No significant leukocytosis on initial labs Monitor for signs or symptoms of infection -Monitor WBCs and fever curve Antibiotics None Recent Cultures:No results found for: CULTURE ICU Check-list Code: Code Status Procedures Full Code Drips: dextrose, 10 mL/hr, Last Rate: 10 mL/hr (10/18/241552) dextrose 5 % and sodium chloride 0.9 %, 10 mL/hr, Last Rate: Stopped (10/18/241552) [Provider Held] heparin (porcine) IV infusion - low dose protocol, 12 Units/kg/hr (Order-Specific),Last Rate: Stopped (10/18/241551) insulin regular (HumuLIN-R) IV infusion - Glucommander, 0-100 Units/hr, Last Rate: 0.7 Units/hr (10/18/241551) Lines: Peripheral IV - Single Lumen (Adult) 10/18/24521 median vein (underside of arm), right 20 gauge (Active) Number of days: 0 Peripheral IV - Single Lumen (Adult) 10/18/24521 median vein (underside of arm), right 20 gauge (Active) Number of days: 0 Peripheral IV - Single Lumen (Adult) 10/18/24 0523 median vein (underside of arm), left 20 gauge (Active) Number of days: 0 Enteric Access and Mcgee: N/A Restraints: N/A GI ppx: Not indicated DVT ppx: Heparin drip for NSTEMI Mobility: Out of bed as tolerated Dispo: MICU Pt seen and discussed w/ Dr Pushpa Gallegos MD Subjective Chief Complaint Patient complains of: Chills, cough, shortness of breath, chest pain History of Present Illness Neymar Baum Meño 79 y.o. w/ PMHx of stage V CKD (has not been on hemodialysis follows with nephrology in [place]), insulin-dependent diabetes, hypertension presented from outside hospital and transferred to [facility] for concerns of NSTEMI and DKA. Patient initially presented to outside hospital with URI symptoms including cough, chills, and increased shortness of breath. Patientwas found to be hypoxic via EMS in the mid 80s and was placed on 5 L of nasal cannula with improvement which is a new oxygen requirement for the patient. Outside hospital x-ray showed opacities consistent with questionable pneumonia versus pulmonary edema, blood sugar was greater than 700, severe anion gap metabolic acidosis with pH of 7.1 consistent with diabetic ketoacidosis. Additionally patient was tested positive for COVID. EKG showed sinus rhythm with poor R wave progression and nonspecific T wave abnormalities. Outside hospital troponin was elevated at 1830 can be likely due to demand ischemia given DKA and signs of fluid overload from chest x-ray. Review of Systems Review of Systems Constitutional: Positive for chills. Respiratory: Positive for cough and shortness of breath. Cardiovascular: Positive for chest pain. Negative for palpitations. Gastrointestinal: Negative for abdominal pain, blood in stool, constipation, diarrhea, nausea and vomiting. Genitourinary: Negative for dysuria, flank pain, frequency and hematuria. Musculoskeletal: Negative for back pain and neck pain. Neurological: Negative for dizziness, weakness, light-headedness, numbness and headaches. Past History No past medical history on file. No past surgical history on file. No family history on file. Social History Tobacco Use Smoking status: Not on file Smokeless tobacco: Not on file Substance Use Topics Alcohol use: Not on file Allergies No Known Allergies Current Medications Current Facility-Administered Medications Medication Dose Route Frequency Provider Last Rate Last Admin dextrose 5 % (D5W) infusion 10 mL/hr Intravenous Continuous Cheryl Blue MD 10 mL/hr at 10/18/24 1553 10 mL/hr at 10/18/24 1553 aspirin chewable tablet 81 mg 81 mg Oral Daily Cheryl Blue MD atorvastatin (LIPITOR) tablet 80 mg 80 mg Oral Daily Cheryl Blue MD bisacodyl (DULCOLAX) suppository 10 mg 10 mg Rectal Daily PRN Nilda Dalton MD chlorhexidine (PERIDEX) 0.12 % oral solution 15 mL 15 mL Mouth/Throat BID Nilda Dalton MD 15 mL at 10/18/24 0733 dextrose 5 % and sodium chloride 0.9 % (D5NS) infusion 10 mL/hr Intravenous Continuous PRN Fuad Winter MD Stopped at 10/18/24 1553 glucose (GLUTOSE 15) 40 % oral gel 0-75 g 0-2 Tube Oral Q15 Min PRN Fuad Winter MD Or dextrose 50 % solution 5-25 g 5-25 g Intravenous Q15 Min PRN Fuad Winter MD Or glucagon (GLUCAGEN) injection 1 mg 1 mg Intramuscular Daily PRN Fuad Winter MD heparin (porcine) 1000 unit/mL injection 2,100 Units 30 Units/kg Intravenous Q6H PRN Fuad Winter MD [Provider Held] heparin (porcine) IV infusion 25,000 units in 500 mL 0.45% NaCl (premix) 12 Units/kg/hr (Order-Specific) Intravenous Continuous Fuad Winter MD Held at 10/18/24 155 insulin regular (HumuLIN-R) IV infusion 100 units in 100 mL NS STOCK - Glucommander 0-100 Units/hr Intravenous Continuous Fuad Winter MD 0.7 mL/hr at 10/18/24 1552 0.7 Units/hr at 10/18/24 155 lactulose (ENULOSE) 10 gm/15 mL solution 20 g 30 mL Oral Q4H PRN Nilda Dalton MD naloxone (NARCAN) 0.4 mg/mL injection 0.4 mg 0.4 mg Intravenous Q5 Min PRN Nilda Dalton MD senna-docusate (SENNA-S) 8.6-50 MG tablet 2 tablet 2 tablet Oral Nightly Nilda Dalton MD No current outpatient medications on file. Objective Last Vitals Pulse:86,Resp:20,BP:138/69,SpO2:92 %,Weight:68.9 kg (152 lb) Temp Last 24 hrs: Temp Min: 97.2 ??F (36.2 ??C) Max: 97.5 ??F (36.4 ??C) Last temp: 97.2 ??F (36.2 ??C) (Tympanic) Intake/Output Summary (Last 24 hours) at 10/18/2024 1702 Last data filed at 10/18/2024 1214 Gross per 24 hour Intake 18 ml Output -- Net 18 ml Physical Exam Vitals and nursing note reviewed. Constitutional: General: He is not in acute distress. Appearance: Normal appearance. He is not ill-appearing, toxic-appearing or diaphoretic. HENT: Head: Normocephalic and atraumatic. Right Ear: External ear normal. Left Ear: External ear normal. Nose: Nose normal. Mouth/Throat: Mouth: Mucous membranes are moist. Eyes: Conjunctiva/sclera: Conjunctivae normal. Cardiovascular: Rate and Rhythm: Normal rate and regular rhythm. Pulses: Normal pulses. Heart sounds: Normal heart sounds. No murmur heard. No friction rub. No gallop. Pulmonary: Effort: Pulmonary effort is normal. No respiratory distress. Breath sounds: Normal breath sounds. No stridor. No wheezing, rhonchi or rales. Comments: Patient on 5 L nasal cannula which is new oxygen requirement satting at 90 to 91% with a good waveform, no signs respiratory distress, speaking full clear sentences, lungs are clear to auscultation bilaterally Chest: Chest wall: No tenderness. Abdominal: General: There is no distension. Palpations: Abdomen is soft. Tenderness: There is no abdominal tenderness. There is no guarding or rebound. Musculoskeletal: General: No tenderness. Normal range of motion. Cervical back: Normal range of motion and neck supple. Right lower leg: No edema. Left lower leg: No edema. Comments: Patient appears euvolemic on exam Skin: General: Skin is warm and dry. Capillary Refill: Capillary refill takes less than 2 seconds. Coloration: Skin is not jaundiced or pale. Neurological: General: No focal deficit present. Mental Status: He is alert and oriented to person, place, and time. Psychiatric: Mood and Affect: Mood normal. Behavior: Behavior normal. LABS: Results from last 7 days Lab Units 10/18/24 0516 WHITE BLOOD CELL COUNT Thou/uL 11.5* HEMOGLOBIN g/dL 8.5* HEMATOCRIT % 27.7* PLATELET COUNT Thou/uL 265 NEUTROS PCT % 86.0 LYMPHS PCT % 9.2 MONOS PCT % 4.3 EOS PCT % 0.0 BASOS PCT % 0.1 Recent Labs 10/18/24 0516 PTT 68* LABPROT 13.9* INR 1.2 Recent Labs 10/18/24 0516 10/18/24 0725 10/18/24 0957 10/18/24 1125 NA 140 139 142 145 K 4.9 4.5 4.3 4.2 CL 104 106 108* 111* CO2 8* 12* 13* 14* ANIONGAP 28* 21* 21* 20* BUN 83* 84* 87* 84* CREAT 4.9* 5.0* 5.0* 5.0* No results for input(s): AST , ALT , ALKPHOS , BILITOT , BILIDIR , ALBUMIN , PROT in the last 72 hours. No results for input(s): PHA , PCO2 , PO2 , HCO3 in the last 72 hours. IMAGING: XR Chest 1 view-Portable Result Date: 10/18/2024 EXAMINATION: XR CHEST CLINICAL INFORMATION: SOB COMPARISON: None TECHNIQUE: Frontal view of the chest FINDINGS: The lungs are well-expanded. Central vascular and coarse interstitial prominence. Hazy right basilar and dense retrocardiac opacities. Small left and suspected small right layering pleural effusions. Thickening of the minor fissure. Gabriele B-lines. No pneumothorax. The cardiomediastinalsilhouette is similar to prior. No acute osseous abnormalities. 1. Findings as above most consistent with pulmonary edema and left greater than right small bilateral pleural effusions. Please note, an underlying infectious/inflammatory process cannot be excluded.2. Hazy right basilar and dense retrocardiac opacities may represent layering effusion and/or atelectasis, respectively. Interpreted by: Prem Coffman MD Technical Operations Vice President I personally reviewed the images and the resident's preliminary report and AGREE with the report as it is now presented ([id number]). Cheryl Blue DO Emergency Medicine PGY-2 Available on [employer] 10/18/24 8:33 AM documented in this encounter Procedure Notes * Karen Angelo PA-C - 10/18/2024 6:01 PM EST Inpatient Procedure Team Brief Procedure Note: Patient name: Neymar Wilder Pt Date of procedure: 10/18/2024 Procedure(s): Bilateral thoracentesis Indications: Bilateral pleural effusion Linux Admin Engineer: None Anesthesia: None Fluid: 850ml of clear devorah fluid from the right and 550mL of clear devorah fluid from the left Labs: Specimen was labeled and handed off to bedside RN. The chain of possession log was signed. Estimated Blood Loss: Minimal Complications: None Heparin gtt can be resumed 2hr post procedure Karen Angelo PA-C 10/18/2024 6:01 PM documented in this encounter Consult Notes * Imelda Hsu RD - 10/31/2024 4:18 PM ESTAssociated Order(s): IP CONSULT TO NUTRITION SERVICES [facility] Nutrition Note Visit Type: initial assessment Reason for Dietitian Visit: consult, at nutrition risk. Reason for Admission: DKA (diabetic ketoacidosis) (HCC) Pertinent Medical History: HF, NSTEMI, HTN, CKD stage V Nutrition Diagnosis: Intake: Inadequate oral intake related to acute illness as evidenced by PO intake 25-75% of meals, average 63% x 4 days Diagnosis Status: (new). Interventions/Recommendations: Food & Nutrient Delivery: 1. When medically appropriate, resume diet: - carb counting 60 g/meal, 2 gm Na, 2 gm K. Add 800-1000 mg phos restriction if phos continues to trend up 2. Trial vanilla Nepro BID 3. Encourage and monitor PO intake of meals 4. Monitor blood glucose, adjust insulin coverage PRN 5. Monitor electrolytes closely 6. Weekly weights, monitor for trend 7. Monitor labs, medications, skin integrity, and clinical course Nutrition Education/Counseling: Learner: patient Readiness: acceptance Method: Handout Explanation Topics: Carbohydrate Awareness/ Counting Increased Protein Increased Calories, Oral Nutrition Supplement Use Response: verbalizes understanding Comprehension: Good Coordination of Nutrition Care: None at this time. Nutrition Plan for Discharge/Transfer: Continue to follow diabetic and renal diet restrictions. Oral nutrition supplements PRN. Nutrition Assessment: Consult to nutrition as pt with DM, initial assessment. Pt to ED from OSH for evaluation of URI symptoms, found to be COVID positive as well as concern for DKA and NSTEMI. Pt was initially admitted to ICU, transferred to [facility] on 10/20, now on floor level of care. Awaiting cardiac cath. Upon RD visit today, pt able to report typical diet and nutrition history as below. Per documentation, pt has consumed an average of 63% of meals. Pt is agreeable to try nutrition supplements. In setting of CKD stage V, RD to order Nepro BID - this is our most electrolyte restricted oral nutrition supplement. Provided pt with carbohydrate counting education along with handouts from the Nutrition Care Manual, pt appreciative. Noted pt with elevated phos per labs. If phos continues to trend up, may consider adding 800-1000 mg phos restriction to diet order. See detailed interventions above. Will continue to follow. Typical Food & Fluid Intake: Pt reports typically following a regular diet at home, watches sugar sometimes Factors Affecting Nutritional Intake: appetite, restricted diet Food Related Allergies: NKFA Cultural/Ethnic Preferences: None noted/reported. Food Insecurity Concerns: Never true Weight: Weights (last 14 days) Date/Time Weight Scale 10/31/24 0521 65.2 kg (143 lb 11.8 oz) bed 10/30/24 0500 65.1 kg (143 lb 8.3 oz) bed 10/29/24 0633 65.2 kg (143 lb 11.8 oz) bed 10/28/24 1915 63.1 kg (139 lb 1.8 oz) standing 10/28/24 0600 70.2 kg (154 lb 12.2 oz) bed 10/27/24 0600 66.3 kg (146 lb 2.6 oz) bed 10/26/24 0500 65.4 kg (144 lb 2.9 oz) bed 10/25/24 0600 65.8 kg (145 lb 1 oz) bed 10/24/24 0600 65.9 kg (145 lb 4.5 oz) -- 10/23/24 0600 68.5 kg (151 lb 0.2 oz) bed 10/21/24 0554 69.5 kg (153 lb 3.5 oz) bed 10/20/24 1600 67.8 kg (149 lb 7.6 oz) bed 10/19/24 0000 67.5 kg (148 lb 13 oz) bed 10/18/24 05:17:16 68.9 kg (152 lb) -- Net IO Since Admission: -10,204.16 mL [10/31/24 1620] Wt Readings from Last 10 Encounters: 10/31/24 65.2 kg (143 lb 11.8 oz) Nutrition Physical Findings: Physical Appearance: on oxygen therapy (nasal cannula) Muscle Wasting: Mild Depletion: none observed Moderate Depletion: none observed Severe Depletion: none observed Adipose Wasting: Mild Depletion: none observed Moderate Depletion: none observed Severe Depletion: none observed Gastrointestinal: (last BM 10/30) Skin: (WNL) Wound Documentation Reviewed: yes Labs: BUN 40, Cr 4.6, POC glucose 84-147 x 24 hrs, A1c 8.7, GFR 12, phos 4.7 Diagnostics: reviewed Medications: Lipitor, Rocaltrol, Tums, Aranesp, insulin, Synthroid, Tradjenta, senna Estimated Daily Energy and Protein Needs: Energy Needs: 1578 - 1893 Kcals/day (25 - 30 Kcals/kg) based on 63.1 kg (139 lb 1.8 oz) Protein Needs: 63 - 76 gm, (1.0 - 1.2g/kg) based on 63.1 kg (139 lb 1.8 oz) Fluids: 1600ml based on BENCH SHEAR OPERATOR Method (or per MD/team) Estimated/Assessed Carbohydrates Needs: 60 g/meal Current Diet: Diet NPO; Meds, Sips of clears Intake Compared to Estimated Needs: Energy Intake: not meeting needs (PO intake 25-75% of meals, average 63%) x 4 (10/22-10/26) days Protein Intake: not meeting needs (PO intake 25-75% of meals, average 63%) x 4 (10/22-10/26) days Fluid Intake: not meeting needs (278 mL x 24 hrs per I&O's) Educational Needs Assessment: Assessed patient's learning needs. Barriers to Education: None noted at this time. Monitoring & Evaluation: Goals to be Achieved by Next Assessment: PO intake >75% of meals Acceptance of supplement Meet estimated nutrition needs Monitoring/Evaluation: RD/DTR will monitor and evaluate nutrition plan of care and provide additional interventions and recommendations based on nutrition/clinical status. Sign: Imelda Hsu RD 10/31/2024 4:18 PM * Jonna Donis PA-C - 10/23/2024 5:16 PM ESTAssociated Order(s): IP CONSULT TO INTERVENTIONAL CARDIOLOGY Images from the original note were not included. Interventional Cardiology / Cardiac Catheterization Consult Date of Consult: 10/23/2024 Patient's Primary Care Provider: Diaz Akers MD Physician Requesting Consult: Neymar Mcfarland MD Reason for Consultation: Myocardial Infarction Name: Neymar Wilder Age: 79 y.o. Sex: male Race and Ethnicity Race White or Ethnic Group Not or Principal Problem: DKA (diabetic ketoacidosis) (HCC) (POA: Yes) Active Problems: NSTEMI (non-ST elevated myocardial infarction) (HCC) (POA: Unknown) COVID (POA: Yes) Heart failure with reduced ejection fraction (HCC) (POA: Unknown) Pulmonary edema with left heart failure (HCC) (POA: Unknown) Resolved Problems: Assessment & Plan Assessment 1. 79 y.o. male with CAD, s/p IA 02/2024, transferred from [facility] with NSTEMI. 2. HFrEF with newly reduced EF of of 28% reduced from 55-60% in 2021 on TTE 3. CKD stage V, Cr 4.3 today, baseline 4.8-5.2, currently stable 4. DKA improving 5. COVID on precautions 6. Chronic Anemia, H/H today 9.6/30.5 7. HTN 8. Moderate MR 9. Hypocalcemia/secondary hyperparathyroidism I have personally reviewed with the patient and family the medical history, labs, previous testing and testing results consisting of echocardiogram 10/18/2024, EKG 10/21/2024. Adjusted CathPCI bleeding event risk: 7.5% Estimated Creatinine Clearance: 13.4 mL/min (A) (by C-G formula based on SCr of 4.1 mg/dL (H)). Risk of any post PCI RADHA 57.3%; risk of post PCI RADHA requiring dialysis 12.6% Maximum Predicted Contrast :49 ml Plan The plan is to proceed with further evaluation with a LHC and cardiac angiogram . The reason for the procedure, the alternatives (medical therapy, other non- invasive imaging tests) to the procedure and the risks were discussed. The details of the procedure were discussed, benefits and risks explained include approximately a 1% risk of major complications including , heart attack, stroke, andbleeding/blood transfusion, vascular complications/perforation, loss of limb, need for emergency bypass or vascular surgery, allergic reactions, adverse reaction to contrast or sedation, emergency defibrillation, endotracheal intubation, renal insufficiency or failure, small risk of temporary or permanent hemodialysis, etc. In the setting of a PCI, the need for prolonged dual antiplatelet therapywith heightened risk of bleeding and needing to defer elective surgery was all discussed with the patient. All questions answered, the patient wishes to proceed. Consent to be completed by physician performing procedure. Subjective Chief Complaint SOB History of Present Illness 79 y.o. male with CAD, s/p IA 02/2024, HFrEF , CKD stage V, Cr baseline 4.3, currently stable, DKA improving, COVID currently on precautions, Chronic Anemia, H/H, today 9.6/30.5, HTN, Moderate MR, Hypocalcemia/secondary hyperparathyroidism was transferred from outside hospital for DKA, COVID/pneumonia, NSTEMI with a HS trop >4000 and acute pulmonary edema, HFrEF with newly reduced EF of of 28% reduced from 55-60% in 2021 on TTE.He underwent thoracentesis on 10/19/2024 due to bilateral effusions. He presented with fatigue, cough, fever, chills and SOB. He was transferred to our ICU due to unav ailability at closer hospital. Since admission he has resolved ALISA, with a creatinine maintain at or better than his baseline, today at 4.1. His baseline runs 4.8-5.2, and has been evaluated by nephrology who reviewed risks or RADHA with patient and he understands and is willing to proceed with cardiac cath. The patient reports a mild heart attack in February 2024 which he developed SOB after bending over. No intervention was done due to the patient's renal function and he was discharged on medical management. Currently he feels improved since admission. Past History No past medical history on file. No past surgical history on file. No family history on file. Social History Tobacco Use Smoking status: Never Passive exposure: Never Smokeless tobacco: Never Substance Use Topics Alcohol use: Not on file Review of Systems Review of Systems Constitutional: Positive for appetite change, chills, diaphoresis, fatigue and fever. HENT: Negative. Respiratory: Positive for cough and shortness of breath. Cardiovascular: Negative. Gastrointestinal: Negative. Genitourinary: Negative. Musculoskeletal: Negative. Skin: Negative. Allergic/Immunologic: Negative. Neurological: Negative. Hematological: Negative. Psychiatric/Behavioral: Negative. Objective Medications Prior to Admission Medications: Medications Prior to Admission Medication Sig Dispense Refill Last Dose calcitRIOL (ROCALTROL) 0.25 MCG capsule Take 1 capsule (0.25 mcg total) by mouth once a week. Tuesdays allopurinol (ZYLOPRIM) 100 mg tablet Take 1 tablet (100 mg total) by mouth daily. amLODIPine (NORVASC) 5 MG tablet Take 1 tablet (5 mg total) by mouth daily. aspirin enteric coated (ECOTRIN LOW STRENGTH) 81 MG EC tablet Take 1 tablet (81 mg total) by mouth daily. carvedilol (COREG) 6.25 MG tablet Take 1 tablet (6.25 mg total) by mouth 2 (two) times a day with meals. clopidogrel (PLAVIX) 75 MG tablet Take 1 tablet (75 mg total) by mouth daily. levothyroxine (SYNTHROID, LEVOTHROID) 25 MCG tablet Take 1 tablet (25 mcg total) by mouth daily on an empty stomach. sitaGLIPtin (JANUVIA) 100 MG tablet Take 1 tablet (100 mg total) by mouth daily. sodium bicarbonate 650 MG tablet Take 1 tablet (650 mg total) by mouth 2 (two) times a day. spironolactone (ALDACTONE) 25 MG tablet Take 1 tablet (25 mg total) by mouth daily. terazosin (HYTRIN) 5 MG capsule Take 1 capsule (5 mg total) by mouth nightly. Medication/MAR Report: Medications Scheduled Medication Ordered Dose/Rate, Route, Frequency Last Action aspirin chewable tablet 81 mg 81 mg, PO, Daily Given, 81 mg at 10/23 850 atorvastatin (LIPITOR) tablet 80 mg 80 mg, PO, Daily Given, 80 mg at 10/23 850 calcitRIOL (ROCALTROL) capsule 0.5 mcg 0.5 mcg, PO, Daily Given, 0.5 mcg at 10/23 1007 calcium carbonate (TUMS) chewable tablet 500 mg 500 mg, PO, BID Ordered chlorhexidine (PERIDEX) 0.12 % oral solution 15 mL 15 mL, MT, BID Given, 15 mL at 10/23 850 darbepoetin kelley (ARANESP) injection 60 mcg 60 mcg, SC, Weekly Given, 60 mcg at 10/23 1436 insulin glargine (LANtus/SEMGLEE) 100 units/mL injection 18 Units 18 Units, SC, Daily Ordered insulin lispro (HumaLOG/ADMELOG) 100 units/mL injection 1-4 Units 1-4 Units, SC, NIGHTLY & 2AM Given, 1 Units at 10/20 2047 insulin lispro (HumaLOG/ADMELOG) 100 units/mL injection 1-6 Units 1-6 Units, SC, TID with meals Given, 1 Units at 10/23 1422 insulin lispro (HumaLOG/ADMELOG) 100 units/mL injection 1-8 Units 1-8 Units, SC, TID with meals Given, 2 Units at 10/23 1422 levothyroxine (SYNTHROID, LEVOTHROID) tablet 25 mcg 25 mcg, PO, Daily 6AM Given, 25 mcg at 10/23 447 metoPROLOL SUCCINATE (TOPROL-XL) 24 hr tablet 50 mg 50 mg, PO, Daily Given, 50 mg at 10/23 850 senna-docusate (SENNA-S) 8.6-50 MG tablet 2 tablet 2 tablet, PO, Nightly Given, 2 tablet at 10/19 2007 sodium citrate-citric acid (BICITRA) 500-334 mg/5 mL solution 30 mL 30 mL, PO, TID Given, 30 mL at 10/23 1422 Continuous Medication Ordered Dose/Rate, Route, Frequency Last Action heparin (porcine) IV infusion 25,000 units in 500 mL 0.45% NaCl (premix) 12 Units/kg/hr, IV, Continuous Rate Change - High Risk Medication, 15 Units/kg/hr at 10/23 104 PRN Medication Ordered Dose/Rate, Route, Frequency Last Action bisacodyl (DULCOLAX) suppository 10 mg 10 mg, RE, Daily PRN Ordered dextrose 50 % solution 12.5 g (Or Linked Group #1) 12.5 g, IV, Q15 Min PRN Ordered dextrose 50 % solution 25 g (Or Linked Group #1) 25 g, IV, Q15 Min PRN Ordered glucagon (GLUCAGEN) injection 1 mg (Or Linked Group #1) 1 mg, IM, Daily PRN Ordered glucose (GLUTOSE 15) 40 % oral gel 37.5 g (Or Linked Group #1) 1 Tube, PO, Q15 Min PRN Ordered glucose (GLUTOSE 15) 40 % oral gel 75 g (Or Linked Group #1) 2 Tube, PO, Q15 Min PRN Ordered heparin (porcine) 1000 unit/mL injection 2,100 Units 30 Units/kg, IV, Q6H PRN Ordered lactulose (ENULOSE) 10 gm/15 mL solution 20 g 30 mL, PO, Q4H PRN Ordered naloxone (NARCAN) 0.4 mg/mL injection 0.4 mg 0.4 mg, IV, Q5 Min PRN Ordered Current Outpatient Medications Medication Instructions allopurinol (ZYLOPRIM) 100 mg, Oral, Daily amLODIPine (NORVASC) 5 mg, Oral, Daily aspirin enteric coated (ECOTRIN LOW STRENGTH) 81 mg, Oral, Daily calcitRIOL (ROCALTROL) 0.25 mcg, Oral, Weekly, Tuesdays carvedilol (COREG) 6.25 mg, Oral, 2 times daily with meals clopidogrel (PLAVIX) 75 mg, Oral, Daily levothyroxine (SYNTHROID, LEVOTHROID) 25 mcg, Oral, Daily sitaGLIPtin (JANUVIA) 100 mg, Oral, Daily sodium bicarbonate 650 mg, Oral, 2 times daily spironolactone (ALDACTONE) 25 mg, Oral, Daily terazosin (HYTRIN) 5 mg, Oral, Nightly No Known Allergies Physical Exam Vitals: 10/23/24 0600 10/23/24 0742 10/23/24 1237 10/23/24 1713 BP: (!) 147/73 (!) 140/67 139/63 BP Location: Right arm Right arm Right arm Patient Position: Lying Lying Lying Pulse: 74 79 67 Resp: 18 18 16 Temp: 97.5 ??F (36.4 ??C) 98.4 ??F (36.9 ??C) 98 ??F (36.7 ??C) TempSrc: Tympanic Tympanic Tympanic SpO2: 92% 93% 93% Weight: 68.5 kg (151 lb 0.2 oz) Height: Intake/Output Summary (Last 24 hours) at 10/23/2024 1716 Last data filed at 10/23/2024 1500 Gross per 24 hour Intake 20 ml Output 650 ml Net -630 ml Physical Exam Vitals reviewed. Constitutional: General: He is not in acute distress. Appearance: He is normal weight. He is not ill-appearing. HENT: Head: Normocephalic and atraumatic. Mouth/Throat: Mouth: Mucous membranes are dry. Pharynx: Oropharynx is clear. No posterior oropharyngeal erythema. Eyes: General: No scleral icterus. Extraocular Movements: Extraocular movements intact. Pupils: Pupils are equal, round, and reactive to light. Cardiovascular: Rate and Rhythm: Normal rate and regular rhythm. Pulses: Normal pulses. Heart sounds: Normal heart sounds. Pulmonary: Effort: Pulmonary effort is normal. Breath sounds: Normal breath sounds. Abdominal: Palpations: Abdomen is soft. There is no mass. Tenderness: There is no abdominal tenderness. There is no right CVA tenderness or left CVA tenderness. Musculoskeletal: General: No swelling or tenderness. Cervical back: Neck supple. No tenderness. Right lower leg: No edema. Left lower leg: No edema. Lymphadenopathy: Cervical: No cervical adenopathy. Skin: General: Skin is warm and dry. Capillary Refill: Capillary refill takes less than 2 seconds. Neurological: General: No focal deficit present. Mental Status: He is alert and oriented to person, place, and time. Psychiatric: Mood and Affect: Mood normal. Behavior: Behavior normal. Thought Content: Thought content normal. Judgment: Judgment normal. Mallampati Score: IV (only hard palate visible) ASA PHYSICAL STATUS CLASSIFICATION SYSTEM ASA 3 - Patient with moderate systemic disease with functional limitations Relevant data reviewed: Labs, Notes, Meds EK10/21/2024 Labs: High sensitivity troponin: 4276 ProBnP: 70, 000 Notable labs are: Lab Results Component Value Date WBC 11.2 (H) 10/23/2024 HGB 9.6 (L) 10/23/2024 HCT 30.5 (L) 10/23/2024 PLT 374 10/23/2024 Lab Results Component Value Date NA 147 (H) 10/23/2024 K 4.0 10/23/2024 CL 110 (H) 10/23/2024 CO2 18 (L) 10/23/2024 BUN 74 (H) 10/23/2024 CREAT 4.1 (H) 10/23/2024 GLUC 158 (H) 10/23/2024 GLUC 66 10/23/2024 Lab Results Component Value Date CALCIUM 7.4 (L) 10/23/2024 MG 1.8 10/23/2024 PHOS 3.9 10/23/2024 Lab Results Component Value Date HGBA1C 8.7 (H) 10/19/2024 Imaging Studies: ECHO: -The left ventricle is severely dilated. There is eccentric hypertrophy. Left ventricular systolic function is severely decreased. The quantitative EF by 2D Poole biplane is 28%. The anterior and anteroseptal garcia are akinetic. The apex is dyskinetic. There is evidence of diastolic dysfunction, with elevated left atrial filling pressure. The left atrial cavity is severely dilated. -The right ventricle is normal in size. Right ventricular systolic function is normal. The estimated right ventricular systolic pressure is 52 mmHg. -There is moderate functional mitral regurgitation. There is mild tricuspid regurgitation. -There is a large left pleural effusion. -There is no previous study for comparison in our system Time spent at the bedside reviewing previous records, performing H&P, physical assessment, and educated on cardiac [employer] procedure was approximately 60 minutes The following information is collected for participation in the [employer] CATH/PCI Registry (ACCNCDR) and is used for submission of data and may not be entirely consistent with the clinical evaluation. ACC-NCDR CathPCI V5 Collection Form History and Risk Factors Hypertension: Yes Diabetes mellitus: Yes Hx of CAD: No Prior IA: Yes Date of most recent IA: 02/08/2024 Prior CABG: No Prior PCI: No Currently on dialysis: No Cerebrovascular disease: No Peripheral arterial disease: No Chronic lung disease: No Tobacco use: Never Clinical frailty score: Vulnerable Pre-Procedure Information Prior heart failure: No Electrocardiac assessment method: ECG The assessment result was abnormal. 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 PCI Procedure Staged PCI: No Pre-Procedure Mediations Aspirin: Yes YULY Inhibitor: No Angiotensin II receptor irena: No Beta irena: Yes Calcium channel blocking agent: Yes Long acting nitrate: No Non-statin: No Ranolazine: No Statin: No Sacubitril and valsartan: No Antiarrhythmic agent other: No Kexin type 9 inhibitor: No Sign: Jonna Donis PA-C 10/23/2024 5:16 PM Associated attestation - Calixto Ureña MD - 10/31/2024 5:57 PM EST I have interviewed and examined the patient. I have reviewed the workup and note. I agree with thisassessment and recommendations. Patient is a 79-year-old male with past medical Struve coronary artery disease status post IA in February 2024, heart failure with reduced EF, CKD stage V with baseline creatinine of 4.3 DKA who presentedwith a sore throat and URI subsequently was found to have COVID-19 illness he also has history of chronic anemia, hypertension, moderate mitral regurgitation, hypocalcemia, secondary hyperparathyroidism was transferred from outside hospital in light of DKA and COVID-19 pneumonia was also found to have NSTEMI with high sensitive troponin more than 4000 and acute pulmonary edema patient was found to have newly reduced ejection fraction from baseline of 55 to 60% in 2021 to 28% now patient also und erwent bilateral thoracocentesis now presents for cardiac catheterization in light of new drop in ejection fraction and elevated troponin. Mallampati Score: III (soft and hard palate and base of uvula visible) ASA PHYSICAL STATUS CLASSIFICATION SYSTEM ASA 3 - Patient with moderate systemic disease with functional limitations IMPRESSION: Acute coronary syndrome DKA Pneumonia CKD stage V Chronic anemia Hyperparathyroidism RECOMMENDATIONS: I will proceed with left heart cardiac catheterization with coronary angiogram +/- PCI Risks, benefits and alternatives to LHC, coronary angiogram +/- PCI were discussed with the patient. Risks including but not limited to IA, stroke, emergency bypass surgery, bleeding or vascular complications, adverse reaction to contrast or sedation, emergency defibrillation, endotracheal intubation, need for prolonged dual antiplatelet therapy with heightened risk of bleeding and needing to defer elective surgery was discussed with the patient. The benefit of obtaining diagnostic and prognostic information and performing revascularization of appropriate anatomy was discussed with the patient. The alternative of not proceeding with cathete rization and medical therapy alone or additional noninvasive testing was discussed with the patient. He voiced understanding and wishes to proceed. * Veronica Hamm PA-C - 10/19/2024 9:23 AM EST Nephrology Consult Note Neymar Wilder Date of Consult: 10/19/2024 Patient's Primary Care Physician: No primary care provider on file. Physician Requesting Consult: Pushpa Gallegos MD Reason for Consultation: Chronic kidney disease stage V Impression Neymar Wilder is a 79 y.o. male with PMHx including CKD V (BlCr 5.0, 11/03), DM II, HTN who was transferred from [facility] to on 10/18/24 with concern for NSTEMI and DKA. Nephrology was consulted given the eventual need for cardiac cath. Lázaro Score: 22 points - 57.3% risk of any post-PCI RADHA; 12.6% post-PCI requiring HD Recommendations - No acute indication for dialysis - Discussed the risks/ benefits of contrast load with patient and son at bedside. All questions answered at this time. - Continue to trend labwork daily - Would recommend beginning sodium bicarbonate tablets 650 mg BID with plans to increase Thank you for the opportunity to take part in this patient's care. Chief complaint CKD V History of Present Illness Neymar Wilder is a 79 y.o. male w/ PMHx of stage V CKD (has not been on hemodialysis follows with nephrology in [place]), insulin-dependent diabetes, hypertension presented from outside hospital and transferred to [facility] for concerns of NSTEMI and DKA. Patient initially presented to outside hospital with URI symptoms including cough, chills, and increased shortness of breath. Patient was found to be hypoxic via EMS in the mid 80s and was placed on 5 L of nasal cannula with improvement which is a new oxygen requirement for the patient. Outside hospital x-ray showed opacities consistent with questionable pneumonia versus pulmonary edema, blood sugar was greater than 700, severe anion gap metabolic acidosis with pH of 7.1 consistent with diabetic ketoacidosis. Additionally patient was tested positive for COVID. EKG showed sinus rhythm with poor R wave progression andnonspecific T wave abnormalities. Outside hospital troponin was elevated at 1830 can be likely due to demand ischemia given DKA and signs of fluid overload from chest x-ray. Review of Systems Constitutional: no fatigue, generalized weakness Eyes no vision loss or change Ears, nose, mouth, throat, and face: no hearing change, mouth lesions or orbital swelling Respiratory: No SOB Cough, PND Cardiovascular: no chest pain , palpiations Gastrointestinal:no diarrhea Genitourinary: no urinary pain, urine blood, hard to urinate Behavioral/Psych: no sadness, not feeling like themselves Endocrine: no severe thirst or sweating Hematologic/lymphatic: negative, swollen glands Musculoskeletal: denies joint pain,back pain Neurological: negative, loss of focal strength, tremor, or loss of sensation Remainder of ROS negative but for that detailed above. Past Medical History No past medical history on file. Past Surgical History No past surgical history on file. Family History No family history on file. Social History Medications Current Medications: aspirin, 81 mg, Oral, Daily atorvastatin, 80 mg, Oral, Daily chlorhexidine, 15 mL, Mouth/Throat, BID senna-docusate, 2 tablet, Oral, Nightly Continuous Infusions: dextrose 5 % and sodium chloride 0.45 % with KCl 20 mEq/L, 50 mL/hr, Last Rate: 50 mL/hr (10/19/24 0700) dextrose 5 % and sodium chloride 0.9 %, 10 mL/hr, Last Rate: Stopped (10/18/24 1553) heparin (porcine) IV infusion - low dose protocol, 12 Units/kg/hr (Order- Specific), Last Rate: 14 Units/kg/hr (10/19/24 0700) insulin regular (HumuLIN-R) IV infusion - Glucommander, 0-100 Units/hr, Last Rate: 1.7 Units/hr (10/19/24 0908) PRN Medications: bisacodyl dextrose 5 % and sodium chloride 0.9 % glucose OR dextrose OR glucagon heparin (porcine) lactulose naloxone Medications were reviewed. Allergies No Known Allergies Intake/Output I/O last 3 completed shifts: In: 1244.8 [I.V.:1141.8; IV Piggyback:103] Out: 1900 [Urine:1900] Vital Signs Temp: [97.2 ??F (36.2 ??C)-99.4 ??F (37.4 ??C)] 99 ??F (37.2 ??C) Pulse: [75-98] 81 Resp: [20-33] 20 BP: (128-150)/(61-77) 143/65 Weight trend: Wt Readings from Last 3 Encounters: 10/19/24 67.5 kg (148 lb 13 oz) Physical Exam General appearance: Comfortable appearing, sitting upright in bed, in NAD Head: Normocephalic, without obvious abnormality Eyes: EOM's intact Neck: supple, symmetrical, trachea midline Lungs: On HFNC. Coarse throughout Heart: RRR Abdomen: soft, non-tender; bowel sounds normal; no masses, no organomegaly Extremities: no ulcers, or gangrene. Edema: None Skin: No rash, texture normal. Lymph nodes: Cervical, supraclavicular, nodes normal. Neurologic: Grossly normal, no asterixis. Psych: AAO x 3, Judgement and insight intact Joints: No sign of joint inflammation. Laboratory Values I have reviewed the laboratory data within the past 24 hours. Recent Labs 10/18/24 0516 10/18/24 0725 10/18/24 2215 10/18/24 2311 10/19/24 0120 10/19/24 0415 10/19/24 0744 NA 140 < > 145 143 -- 142 141 K 4.9 < > 4.2 4.4 -- 4.3 4.6 CO2 8* < > 14* 13* -- 14* 14* CL 104 < > 111* 110* -- 109* 109* BUN 83* < > 91* 88* -- 84* 84* CREAT 4.9* < > 5.2* 5.0* -- 5.0* 4.8* EGFR 11* < > 11* 11* -- 11* 12* CALCIUM 6.6* < > 7.3* 7.0* -- 6.8* 7.2* MG 1.7 -- -- -- 1.7 -- -- PHOS -- -- -- -- 4.2 -- -- < > = values in this interval not displayed. Recent Labs 10/18/24 0516 10/19/24 0120 WBC 11.5* 15.9* HGB 8.5* 8.5* HCT 27.7* 27.0* PLT 265 263 Lab Results Component Value Date PROBNP >70,000 (H) 10/18/2024 No results found for: ALBUMIN No results found for: TACROLIMUS No results found for: [id number] , TOTVOL , CRCLR , PERIOD No results found for: IRON , TIBC , IRONSAT , UIBC No results found for: BILITOT , AST , CK , CKMB Imaging I have reviewed the radiology imaging/reports within the past 24 hours. Sign: Veronica Hamm PA-C 10/19/2024 9:23 AM Associated attestation - Donte, Marty Syed MD - 10/19/2024 3:26 PM EST I personally performed the major and caruso aspects of the medical decision-making. I decided upon andfinalized the complete management plan for the total number and complexity of problems addressed atthe encounter. I take full responsibility for that plan with its inherent risk of complications and/or morbidity or mortality of patient management. I appreciate and accept the thoughtfully curated history and information collection by CHELLY Rodrigues I agree with the assessment and recommendations as written. Signed, Marty Kent MD, [employer], CKD, [facility] Chief of Nephrology, [facility] [place] * Tangela Reed PA-C - 10/19/2024 9:09 AM ESTAssociated Order(s): IP CONSULT TO ENDOCRINOLOGY Endocrinology Consult Note CHELLY Ponce Endocrinology - Medicine Date of Consult: 10/19/2024 Patient's Primary Care Physician: No primary care provider on file. Physician Requesting Consult: Reason for Consultation: Diabetes Management Admit Date: 10/18/2024 5:10 AM Principal Problem: DKA (diabetic ketoacidosis) (HCC) (POA: Yes) Resolved Problems: Addendum Pended orders for transition off insulin drip if add-on BHB returns less than 0.6, regimen as below. Would recommend that patient is kept within access to an insulin drip at least until bedtime FS, to ensure that BG remains stable. Start Lantus Insulin 18 units daily. Continue insulin drip for 2 hours after Lantus administration. Start Meal Carb Humalog Insulin Scale: 1-6 units, 3 times a day with meals. See scale below. Start Meal Correction Humalog Insulin Scale: 1-6 units, 3 times a day with meals. See scale below. Start Nightly/0200 Correction Humalog Insulin Scale: 1-4 units. See scale below. Glucose checks AC/HS & 0200. Notify endocrine team in the daytime or primary team overnight if BG <70 or >350 mg/dL. Hypoglycemia protocol in place. Carb Scale Pre-meal Correction Nighttime Correction (Nightly and 2 AM) Please document the amount of carbs consumed in the comments section when insulin is given. MEAL BOLUS , hold if NPO or if eats < 15 grams of carbs Give 1 unit if eats/drinks 15-23 grams of carbs Give 2 units if eats/drinks 24-35 grams of carbs Give 3 units if eats/drinks 36-47 grams of carbs Give 4 units if eats/drinks 48-59 grams of carbs Give 5 units if eats/drinks 60-71 grams of carbs Give 6 units if eats/drinks at least 72 grams of carbs DO NOT HOLD IF NPO. Call provider if FS <70 or >350 mg/dL For BG 141-180 administer only 1 unit For BG 181-220 administer only 2 units For BG 221-260 administer only 3 units For BG 261-300 administer only 4 units For BG 301-340 administer only 5 units For BG MORE than 340, administer only 6 units and contact provider DO NOT HOLD IF NPO Notify primary team overnight if Blood Glucose <70 or >350 mg/dL. For BG 201-250 administer 1 unit For BG 251-300 administer 2 units For BG 301-350 administer 3 units For BG MORE than 350, administer 4 units and notify primary team Tangela Reed PA-C 10/19/2024 3:42 PM Assessment & Plan Assessment: Neymar Baum Stephanieomar is a 79 y.o. male with T2DM (8.7%-10/19/2023), CKD5, HTN, who presented to OSH with cough, chills, dyspnea, found to have PNA, transferred to with concerns of NSTEMI, DKA. Endocrinology consulted for diabetes. DKA likely secondary to stress hyperglycemia in the setting of URI, combined with starvation ketosis from eating poorly d/t illness. AG continues to be open, sent repeat BHB to assess for ketosis prior to transition. Insulin drip rates average 1.5 units/h while on D5. If ketosis resolves, can consider transition off drip today. Hospital Plan Continue insulin drip. Glucose checks as per Glucommander. Notify endocrine team in the daytime or primary team overnight if BG <70 or >350 mg/dL. Hypoglycemia protocol in place. Please endocrinology team updated on discharge planning including date, disposition. Discharge Planning: Pending needs - patient on basal only at home, would prefer to coordinate similar regimen for discharge. Noted to be on Januvia - would prefer to switch to Tradjenta given renal function. Previous 24 Hours TDD: 95 units on insulin drip. BG Range: 92-569. Diet: Diet NPO; Meds Steroids: None. Drips: Insulin, D5. History Diabetes History Type 2 DM: Diagnosed >10 years prior on a routine test BG usually normal, sometimes high - reports he does not check fingersticks regularly, uses a glucometer but unsure of brand Usual Diabetes Regimen: Lantus SoloStar 10-14 units - patient reports he takes what is written on the pen, unable to clarify exact dose, recorded as 15 units daily in chart Januvia 100 mg daily Diabetes Management: Diaz Akers MD (appears to be PCP). Hospitalizations: None. Complications: Positive for nephropathy. Negative for neuropathy, retinopathy, CAD, PAD, and gastroparesis. History of Present Illness Patient developed malaise, dyspnea, cough over 2-3 days, presented to OSH, found to be COVID positive Reports that he was not eating very much during this time, as he did not feel good At OSH, BHB elevated to 5.88 Hospital Course 10/18: On presentation, serum glucose 569, bicarb 8, BHB 3.63, AG 28, serum osmolality 359, started on insulin drip 1/10: Endo consulted Subjective Chief Complaint Diabetes Management Subjective: [facility]/t active COVID infection, interviewed over phone. Reports feeling well, feels better than before. Reports that he was not paying much attention to diabetes, and feels motivated to engage in diabetes care again. History Review of Systems Constitutional: Negative for activity change and appetite change. Respiratory: Positive for cough. Gastrointestinal: Negative for abdominal pain and nausea. No past medical history on file. No past surgical history on file. No family history on file. No Known Allergies Objective Inpatient Orders aspirin, 81 mg, Oral, Daily atorvastatin, 80 mg, Oral, Daily chlorhexidine, 15 mL, Mouth/Throat, BID senna-docusate, 2 tablet, Oral, Nightly Physical Exam Vitals: 10/19/24 0527 10/19/24 0600 10/19/24 0640 10/19/24 0700 BP: 137/67 (!) 142/71 (!) 143/65 (!) 143/65 BP Location: Patient Position: Pulse: 93 85 82 81 Resp: (!) 27 20 (!) 25 20 Temp: TempSrc: SpO2: 96% (!) 91% 96% 98% Weight: Height: Intake/Output Summary (Last 24 hours) at 10/19/2024 0909 Last data filed at 10/19/2024 0700 Gross per 24 hour Intake 1244.8 ml Output 1900 ml Net -655.2 ml Physical Exam Vitals reviewed. Constitutional: General: He is not in acute distress. HENT: Head: Normocephalic and atraumatic. Mouth/Throat: Mouth: Mucous membranes are moist. Eyes: General: No scleral icterus. Conjunctiva/sclera: Conjunctivae normal. Pulmonary: Effort: Pulmonary effort is normal. Neurological: Mental Status: He is alert and oriented to person, place, and time. Labs Lab Results Component Value Date HGBA1C 8.7 (H) 10/19/2024 Recent Labs 10/19/24 0525 10/19/24 0638 10/19/24 0744 10/19/24 0758 10/19/24 0908 GLUC 169* 148* 110* 118* 146* Lab Results Component Value Date ANIONGAP 18 (H) 10/19/2024 ANIONGAP 19 (H) 10/19/2024 ANIONGAP 20 (H) 10/18/2024 Lab Results Component Value Date WBC 15.9 (H) 10/19/2024 HGB 8.5 (L) 10/19/2024 HCT 27.0 (L) 10/19/2024 PLT 263 10/19/2024 Lab Results Component Value Date NA 141 10/19/2024 K 4.6 10/19/2024 CL 109 (H) 10/19/2024 CO2 14 (L) 10/19/2024 BUN 84 (H) 10/19/2024 CREAT 4.8 (H) 10/19/2024 GLUC 146 (H) 10/19/2024 GLUC 110 (H) 10/19/2024 Lab Results Component Value Date CREAT 4.8 (H) 10/19/2024 During the day of the visit, 82 minutes spent was spent on the following: Examining the patient Chart review in preparation for the visit Documenting in the patient record Reviewing Labs & Radiology Signed Tangela Reed PA-C Endocrinology - Medicine 10/19/2024 2:48 PM * Cecilia Puckett MD - 10/18/2024 8:32 AM ESTAssociated Order(s): IP CONSULT TO CARDIOLOGY Images from the original note were not included. [facility] CARDIOLOGY TRANSFER SERVICE Date of Consult: 10/18/2024 Patient's Primary Care Physician: No primary care provider on file. Physician Requesting Consult: Pushpa Gallegos MD Primary Business Process Modeler: - Reason for Consultation: Shortness of Breath Admit Date: 10/18/2024 5:10 AM Assessment & Plan Assessment Acute hypoxic respiratory failure -multifactorial in the setting of COVID infection and pulmonary congestion COVID-19 positive test (U07.1, COVID-19) with Acute Pneumonia (J12.89, Other viral pneumonia) NSTEMI - Type 1 vs Type 2 ALISA on CKD Diabetes ketoacidosis Severe metabolic acidosis with elevated anion gap Hyperglycemia Anemia -elevated MCV This is a 79-year-old patient with history of CKD, diabetes, hypertension who presented to the hospital with upper respiratory symptoms for 2 days that progressed to increasing shortness of breath. Patient was found to be hypoxic by EMS. Chest x-ray showed opacities consistent with pneumonia versuspulmonary edema. Labs showed blood sugar greater than 700, severe metabolic acidosis (pH 7.1) with elevated anion gap consistent with diabetes ketoacidosis. I was informed patient tested positive forCOVID -result not in the chart. EKG showed sinus rhythm with poor R wave progression and nonspecific T wave abnormalities. Troponins were elevated at 1830. Patient denies any cardiac symptoms. Troponin elevation can be demand ischemia due to viral pneumonia and diabetes ketoacidosis however given risk factors I cannot rule out type I myocardial infarction. At this point I would continue with DKA treatment, heparin drip, aspirin and statin. Plan for ischemic evaluation when medically stable, unless he develops untreatable chest pain, ventricular arrhythmias or cardiogenic shock. Plan Continue aspirin, atorvastatin 80 mg, and heparin drip. Obtain echocardiogram. Plan for ischemic evaluation when medically stable Rest of the care per primary (MICU). Thank you for consult. We will follow with you. Cecilia Valentino MD Subjective Chief Complaint Shortness of Breath History of Present Illness Mr Wilder is a 79year-old gentleman with a past medical history of CKD stage V, hypertension, diabetes who presented to the hospital for increasing shortness of breath. Patient reports that for the last 3 days he is having sore throat, productive cough, chills, fatigue and increasing shortness of breath. He denies any chest pain, lightheadedness, dizziness, palpitations. As the shortness of breath progressed, he decided to come to the ER for further evaluation. Patient states that he had an episode of shortness of breath and chest pain in February 2024, he was told he had a myocardial infarction but the decision was made to treat medically due to kidney function. He was symptoms free since then. Ems and found to be satting 80% on RA, placed on 5L NC with good improvement. At osh chest xray positive for bilateral pna. Blood sugar found to be greater than 700 and noted to be in DKA, insulin gtt started and continued on arrival. Patient tested positive for COVID. Troponins were found to be elevated and cardiology was called for further evaluation Review of Systems 10 point review of systems otherwise negative in detail Objective No past medical history on file. No past surgical history on file. No family history on file. Medications Prior to Admission Medications: (Not in a hospital admission) Current Medications / MAR: Medications Scheduled Medication Ordered Dose/Rate, Route, Frequency Last Action chlorhexidine (PERIDEX) 0.12 % oral solution 15 mL 15 mL, MT, BID Given, 15 mL at 10/18 732 senna-docusate (SENNA-S) 8.6-50 MG tablet 2 tablet 2 tablet, PO, Nightly Ordered Continuous Medication Ordered Dose/Rate, Route, Frequency Last Action heparin (porcine) IV infusion 25,000 units in 500 mL 0.45% NaCl (premix) 12 Units/kg/hr, IV, Continuous New Bag, 12 Units/kg/hr at 10/18 522 insulin regular (HumuLIN-R) IV infusion 100 units in 100 mL NS STOCK - Glucommander 0-100 Units/hr, IV, Continuous Rate/Dose Change, 10 Units/hr at 10/18 733 PRN Medication Ordered Dose/Rate, Route, Frequency Last Action bisacodyl (DULCOLAX) suppository 10 mg 10 mg, RE, Daily PRN Ordered dextrose 5 % and sodium chloride 0.9 % (D5NS) infusion 10 mL/hr, IV, Continuous PRN Ordered dextrose 50 % solution 5-25 g (Or Linked Group #1) 5-25 g, IV, Q15 Min PRN Ordered glucagon (GLUCAGEN) injection 1 mg (Or Linked Group #1) 1 mg, IM, Daily PRN Ordered glucose (GLUTOSE 15) 40 % oral gel 0-75 g (Or Linked Group #1) 0-2 Tube, PO, Q15 Min PRN Ordered heparin (porcine) 1000 unit/mL injection 2,100 Units 30 Units/kg, IV, Q6H PRN Ordered lactulose (ENULOSE) 10 gm/15 mL solution 20 g 30 mL, PO, Q4H PRN Ordered naloxone (NARCAN) 0.4 mg/mL injection 0.4 mg 0.4 mg, IV, Q5 Min PRN Ordered No Known Allergies Physical Exam Vitals: 10/18/24 0557 10/18/24 0631 10/18/24 0659 10/18/24 0734 BP: 120/60 124/60 117/59 BP Location: Right arm Patient Position: Lying Pulse: 85 84 89 Resp: 18 Temp: TempSrc: SpO2: 92% 93% 93% 92% Weight: No intake or output data in the 24 hours ending 10/18/24 0832 GENERAL: No acute distress. On 6L NC HENT: Anicteric. PERRLA. Moist oral membranes. NECK: No carotid bruits. JVP normal CHEST: Nontender. Diffuse crackles CARDIAC: Regular rate and rhythm. Nondisplaced PMI. ABDOMEN: Bowel sounds normal. Soft. Nontender. Nondistended. VASCULAR: + DP pulses. EXTREMITIES: Warm, well-perfused. No edema. SKIN: No rashes NEURO: Alert. Grossly nonfocal. Relevant data reviewed: Results from last 7 days Lab Units 10/18/24 0731 10/18/24 0725 10/18/24 0628 10/18/24 0524 10/18/24 0516 SODIUM mmol/L -- 139 -- -- 140 POTASSIUM mmol/L -- 4.5 -- -- 4.9 CHLORIDE mmol/L -- 106 -- -- 104 CO2 mmol/L -- 12* -- -- 8* BUN mg/dL -- 84* -- -- 83* CREATININE mg/dL -- 5.0* -- -- 4.9* CALCIUM mg/dL -- 6.6* -- -- 6.6* GLUCOSE mg/dL -- 476* -- -- 569* GLUCOSE, POC mg/dL 461* -- >500* < > -- EGFR -- 11* -- -- 11* < > = values in this interval not displayed. Lab Results Component Value Date MG 1.7 10/18/2024 Results from last 7 days Lab Units 10/18/24 0516 WHITE BLOOD CELL COUNT Thou/uL 11.5* HEMOGLOBIN g/dL 8.5* HEMATOCRIT % 27.7* PLATELET COUNT Thou/uL 265 NEUTROS PCT % 86.0 LYMPHS PCT % 9.2 MONOS PCT % 4.3 EOS PCT % 0.0 BASOS PCT % 0.1 Lab Results Component Value Date HSTNT 2,403 () 10/18/2024 HSTNT 1,830 () 10/18/2024 Lab Results Component Value Date PROBNP >70,000 (H) 10/18/2024 ECG: Sinus rhythm Poor R wave progression in the precordial leads. T wave inversions V5 and V6. Nondiagnostic ST segment elevation in V1-V3. Imaging Studies: Chest x-ray on October 18, 2024 1. Findings as above most consistent with pulmonary edema and left greater than right small bilateral pleural effusions. Please note, an underlying infectious/inflammatory process cannot be excluded. 2. Hazy right basilar and dense retrocardiac opacities may represent layering effusion and/or atelectasis, respectively. Sign: Cecilia Pcukett MD 10/18/2024 8:32 AM documented in this encounter ED Notes * Nesha Jacobsen RN - 10/18/2024 11:19 PM EST Report given to Tim ARGUETA on B7I plan to transport patient on monitor with RN Nesha Jacobsen RN 10/18/24 3566 * Kristian Angeles RN - 10/18/2024 12:07 PM EST Report given to KENDALL Jeffries and care transferred at this time. Kristian Angeles RN 10/18/24 1208 * Kristian Angeles RN - 10/18/2024 11:08 AM EST Xa therapeutic at this time. Heparin gtt continued at same rate Kristian Angeles RN 10/18/24 1109 * Kristian Angeles RN - 10/18/2024 11:08 AM EST Echo at bedside Kristian Angeles RN 10/18/24 1108 * Kristian Angeles RN - 10/18/2024 7:40 AM EST Patient A&ox4 well appearing at this time. Answering all questions appropriately. Denies chest pain or SOB. Patient with a frequent congested cough. No N/V/D at this time. No headaches or dizziness. Family at bedside. Not in any acute distress. Plan for admission to MICU Kristian Angeles RN 10/18/24 0800 * Kristian Angeles RN - 10/18/2024 7:15 AM EST I have acknowledged/accepted the hand off of care for this patient from KENDALL Soto. We have verified the telemetry order, leads are on the patient, alarms on, and a Junctional rhythm. Kristian Angeles RN 10/18/24 0801 * Fuad Winter MD - 10/18/2024 6:27 AM EST History Chief Complaint Patient presents with Abnormal Test Result I personally saw the patient and performed a substantive portion of the visit including all aspectsof the medical decision-making. I reviewed the AP's or resident's findings, supervised the management of the patient, made/approved the management plan and take responsibility for the patient management. Further, I agree with the controlled substance prescriptions(s) and/or order(s) as written by the AP, if any. My note reflects my personal findings on my history and exam. HPI: I reviewed any nurses notes, vital signs, home medication list, other history or pertinent diagnostic tests available EMS written documentation was not available at the time of the patient encounter History provided by: The patient, the EMS personnel and medical records Chief Complaint: Weakness/fatigue Duration: Called EMS yesterday evening Context: NSTEMI, DKA, ?Pneumonia vs CHF at OSH Severity: Moderate Timing: Constant Associated symptoms and Additional history: 79-year-old male history of diabetes presents in transfer from [place] with the patient was found to be in DKA and have an NSTEMI as well as question of pneumonia versus CHF. Patient called EMS for generalized weakness and fatigue. Denies chest pain, shortness of breath, fevers. The history is provided by the patient, the EMS personnel and medical records. Abnormal Test Result Associated symptoms include fatigue and weakness. No past medical history on file. No past surgical history on file. No family history on file. Review of Systems Constitutional: Positive for fatigue. Neurological: Positive for weakness. Physical Exam BP 130/68 (BP Location: Right arm, Patient Position: Lying) Pulse 92 Temp 97.5 ??F (36.4 ??C) (Oral) Resp 18 Wt 68.9 kg (152 lb) SpO2 92% Physical Exam Vitals and nursing note reviewed. Constitutional: Appearance: He is not diaphoretic. HENT: Head: Normocephalic and atraumatic. Eyes: General: Right eye: No discharge. Left eye: No discharge. Conjunctiva/sclera: Conjunctivae normal. Cardiovascular: Rate and Rhythm: Normal rate and regular rhythm. Pulses: Normal pulses. Pulmonary: Effort: No respiratory distress. Breath sounds: Rales present. No wheezing or rhonchi. Abdominal: Tenderness: There is no abdominal tenderness. There is no guarding or rebound. Musculoskeletal: General: No deformity. Right lower leg: Edema present. Left lower leg: Edema present. Skin: General: Skin is warm and dry. Capillary Refill: Capillary refill takes less than 2 seconds. Findings: No rash. Neurological: Mental Status: He is alert and oriented to person, place, and time. GCS: GCS eye subscore is 4. GCS verbal subscore is 5. GCS motor subscore is 6. ED Course Final diagnoses: NSTEMI (non-ST elevated myocardial infarction) (HCC) MDM: Number and Complexity of Problems Addressed MDM Detail: Patient presents in transfer from outside hospital after he was found to have DKA as well as an NSTEMI. Initially presented there for weakness and fatigue. EKG on my independent interpretation shows anterolateral T wave inversions with inferior flattening, sinus rhythm. Chest x-ray on my independent interpretation shows pulmonary edema which is consistent with his exam. Will hold off IV fluids despite his elevated sugars consistent with DKA. He is on Glucomander protocol for insulin, but due to my concerns about fluid overload will be gentle in the fluids. Will continue heparin for his NSTEMI with troponin of over 1800. Also considering myocarditis given the lack of chest pain, but will need to be evaluated by cardiology as an inpatient. MICU consulted for admission. Co-Morbidities Present Affecting Care During Encounter: Diabetes Amount and Complexity of Data Records reviewed from external provider, facility, or healthcare organization: [facility] ED note History obtained from other source -see HPI for details: Medical Records and EMS Independent Interpretation of Diagnostic study by ED clinician: Radiology and EKG Testing or Treatment considered but not performed: No abdominal pain or tenderness to suggest need for CT. Discussion with Other Healthcare Provider: MICU Prescription Medication Management: Administration of Prescription Strength Medication Risk of Complications and/or Morbidity or Mortality of Patient Management Critical Care Critical Care: Critical Care: The patient was critically ill with a high probability of imminent orlife threatening deterioration. I spent greater than 30 minutes of discontinuous time evaluating the patient,delivering critical care at the bedside, discussing and evaluating pertinent data with housestaff or consultants. Critical care time does not include time spent performing separately billable procedures or teaching. Total time spent performing critical care was 35 minutes. XR Chest 1 view-Portable (Results Pending) Fuad Winter MD 10/18/24 0645 * Joelle Fermin DO - 10/18/2024 6:02 AM EST History Chief Complaint Patient presents with Abnormal Test Result HPI 79 yo male hx of CKD, dm, chf, transferred here for DKA w/ CHF exacerbation and covid. New o2 requirement of 5L NC. Patient reports over the past 2-3 days he has been feeling unwell. He reports some shortness of breath, cough, and fatigue. Has also had some nausea. He went to OSH and was found to have DKA and fluid overload, as well as positive covid test. Patient's troponin was also found to be uptrending and he was started on heparin for concerns of NSTEMI. Patient denies any chest pain. Additional HPI No past medical history on file. No past surgical history on file. No family history on file. Review of Systems Constitutional: Positive for activity change and fatigue. Negative for chills and fever. HENT: Positive for congestion. Negative for dental problem. Respiratory: Positive for cough and shortness of breath. Cardiovascular: Negative for chest pain. Gastrointestinal: Positive for nausea. Negative for abdominal pain and vomiting. Skin: Negative for color change. Psychiatric/Behavioral: Negative for confusion. Physical Exam BP 130/68 (BP Location: Right arm, Patient Position: Lying) Pulse 92 Temp 97.5 ??F (36.4 ??C) (Oral) Resp 18 Wt 68.9 kg (152 lb) SpO2 92% Physical Exam Constitutional: Appearance: He is normal weight. HENT: Head: Normocephalic and atraumatic. Right Ear: External ear normal. Left Ear: External ear normal. Nose: Nose normal. Mouth/Throat: Mouth: Mucous membranes are moist. Pharynx: Oropharynx is clear. Eyes: General: No scleral icterus. Conjunctiva/sclera: Conjunctivae normal. Cardiovascular: Rate and Rhythm: Normal rate and regular rhythm. Heart sounds: Normal heart sounds. No murmur heard. No friction rub. No gallop. Pulmonary: Rales bilaterally, intermittent rhonchi and coughing Abdominal: General: Abdomen is flat. There is no distension. Palpations: Abdomen is soft. Tenderness: There is no abdominal tenderness. Musculoskeletal: Cervical back: Neck supple. Trace edema bilaterally Skin: General: Skin is warm and dry. Neurological: Mental Status: He is alert and oriented to person, place, and time. ED Course Final diagnoses: None MDM 79 yo male hx of CKD, dm, chf, transferred here for DKA w/ CHF exacerbation and covid. New o2 requirement of 5L NC. Hasn't been feeling well for 2-3 days with cough, nausea, malaise. Went to OSH and was found to be in DKA started insuling drip and fluids, uptrending troponin started on heparin gtt for NSTEMI (no chest pain), and signs of fluid overload on xr (got lasix). He is here now on 5L NC, ph 7.18, glucose >500. His bmp isnt back yet, but beta hydroxy at OSH was >5 and bicarb was 7. Will get all the labwork from osh scanned in. He is alert and mentating fine. Differential includes: +covid positive and DKA, also evidence of fluid overload with bilateral rales. Seems to be mentating fine so less concern for HHS. His kidney function is baseline poor, will need gentle fluid and monitor for worsening sob. Also nstemi vs CHF exacerbation vs myocarditis. He does have some t-wave inversions in lateral leads, no st elevation. I have no prior EKG for comparison. I suspect he needs anecho. Will also need cards evaluation. His electrolytes will need monitoring, his calcium is low, ordered 2g calcium gluconate. Consults: micu, cards Tx: insulin, heparin gtt, calcium 6:48 AM Messaged cardiology. Trop 1830 I independently reviewed patient's EKG, rate of 89, he does have T wave inversions in the lateral leads on his EKG, no prior for comparison. I also messaged MICU for admission. I independently reviewed patient's chest x-ray, reveals bilateral hazy opacities, bilateral pleuraleffusion with left greater than right. I independently reviewed patient's lab work, as a mild leukocytosis of 11.5. Macrocytic anemia. Chemistry panel reveals anion gap acidosis, hypocalcemia. High-sensitivity troponins elevated, BNP is greater than 70,000. He is acidotic with a pH of 7.18. XR Chest 1 view-Portable (Results Pending) Joelle Fermin DO Resident 10/18/24 1014 Associated attestation - Fuad Wintre MD - 10/22/2024 12:29 PM EST I personally saw the patient and performed a substantive portion of the visit including all aspectsof the medical decision-making. I reviewed the AP's or resident's findings, supervised the management of the patient, made/approved the management plan and take responsibility for the patient management. Further, I agree with the controlled substance prescriptions(s) and/or order(s) as written by the AP, if any. My note reflects my personal findings on my history and exam. * Adriel Funez RN - 10/18/2024 5:30 AM EST Per MD Winter, hold on IVF for DKA due to fluid overload. Adriel Funez RN 10/18/24 8661 * Adriel Funez RN - 10/18/2024 5:24 AM EST Bg >500 Adriel Funez RN 10/18/24 0524 * Franky Davis RN - 10/18/2024 5:12 AM EST Pt to hhed from osh for further eval of URI symptoms. Pt called ems and found to be satting 80% on RA, placed on 5L NC with good improvement. At osh chest xray positive for bilateral pna. Blood sugarfound to be greater than 700 and noted to be in DKA, insulin gtt started and continued on arrival. Troponin 8,300 and started on heparin gtt 12units/kg. Pt endorsing mild sob and generalized weakness. Respirations even and unlabored, appears to be in nad. [id number] Franky Davis RN 10/18/24 0519 documented in this encounter Miscellaneous Notes * Provider CDI Queries - Osmar Valdez MD - 11/01/2024 4:42 PM EST Images from the original note were not included. Provider Documentation Clarification There is conflict in the medical record regarding the type of NSTEMI. Are you able to provide additional specificity for documented diagnosis of NSTEMI? Clinical Findings: ED Patient's troponin was also found to be uptrending and he was started on heparin for concerns of NSTEMI. Patient denies any chest pain. 10/18 NSTEMI. ProBNP 70,000 on admission 10/19 NSTEMI, type 1 vs type 2 10/20 . Troponin elevated at 1830 -> 4171, ruling patient in for NSTEMI 10/26 NSTEMI likely type II demand however unable to rule out type I hence awaiting cardiac 11/01 [facility] 10/31: moderate proximal and mid LAD calcified focal stenosis, severe stenosis of nondominant RCA; medically manage CAD in light of moderate LAD disease and CKD stage IV; LVEDP 1mmHg Discharge summary NSTEMI. Outside hospital troponin was elevated at 1830 can be likely due to demand ischemia given DKA and signs of fluid overload from chest x-ray. Please document on query form within 24 hours. Please continue to document your clinical opinion inthe progress notes and summarize at discharge summary. Based on your medical judgment which if any of the following diagnosis is appropriate for your patient. [Please use F2 to respond] Please confirm type of NSTEMI below: NSTEMI type 1 NSTEMI type 2 due to demand NSTEMI type 2 due to demand This documentation will become a permanent part of the patient's legal medical record. Vickie Norris RN, CDS [phone] * Case Coordination-Payor Communication - Meme Jones - 11/01/2024 4:42 PM EST Patient Discharged on 11/01/2024 * Plan of Care - Tena Meza RN - 11/01/2024 2:51 PM EST Pt A&Ox4. D/C instructions explained. Pt & family verbalized understanding. Pt belongings accounted for. Peripheral IV removed. Pt ambulated down to [place]arcia with family. Tena Meza 11/01/2024 2:51 PM * Plan of Care - Diandra Low RN - 11/01/2024 2:19 PM EST error * Case Coordination-Payor Communication - Candice Causey RN - 11/01/2024 9:08 AM EST Continued Stay Review Date: 10/31/2024 Clinical Update: [facility] today, remains NPO Neymar remains on heparin infusion and COVID isolation INTERNAL MED PLAN: 1) NSTEMI Acute CHFrEF B/L Pleural effusions - Appreciate evaluation by cardiology and interventional cardiology teams. - Continue secondary prevention with aspirin and statin - Heparin drip for NSTEMI. Pending coronary angiogram - GDMT with Toprol-XL 75 mg daily. Further medications limited due to CKD 2) DKA DMII Appreciate close follow-up by endocrine service. Blood glucose levels are well- controlled now - Currently on Lantus 8 units daily along with insulin sliding scale - Continue Tradjenta 3) CKD V Nephrogenic anemia Hypocalcemia Appreciate evaluation by nephrology service. Renal functions are stable Continue Tums Continue calcitriol Continue Aranesp 4) Acute hypoxemic respiratory failure COVID Has been 10 days since he tested positive for COVID. Can discontinue precautions. 5) Hypothyroidism Continue levothyroxine NEPHROLOGY PLAN: Renal fcn essentially unchanged RADHA risk no different Continue tums 500mg daily for hx hypocalcemia Hx secondary hyperparathyroidism - continue calcitriol 0.5 mcg daily CARDIOLOGY PLAN: NSTEMI NSVT HTN HsT peak 4239 Estimated LDL 52 -plan for LHC today, NPO pre-procedure -NSVT on 10/29 -heparin gtt pre-procedure -continue ASA 81mg daily, atorvastatin 80mg daily, Toprol 75mg daily -continuous telemetry Acute HFrEF (LVEF 28%), AHA/ACC Stage C, NYHA Class III Moderate MR proBNP >70k 10/18 -Appears euvolemic. Warm and dry -Weight: 143lbs today from 148lbs on admit -I+Os: Unclear given lack of documentation available to review -JVP normal -GDMT HFrEF: -BB: Toprol 75 mg daily - ACEI/ARB/ARNI: Defer to nephrology - MRA: Contraindicated given renal dysfunction - SGT2i: Deferred to nephrology given renal dysfunction -Hold further diuretics at this time awaiting C -Strict I+O's and daily standing weights -Keep K>4, Mag >2 T2DM A1c 8.7% -Would benefit from improved glycemic control to minimize cardiovascular risk ENDOCRINOLOGY PLAN: Decrease to Lantus Insulin 8 units daily. Continue Meal Carb Humalog Insulin Scale: 2-9 units, 3 times a day with meals. See scale below. ICR 1: 7. Continue Meal Correction Humalog Insulin Scale: 1-6 units, 3 times a day with meals. See scale below. ISF 1: 40 > 140. Continue Nightly/0200 Correction Humalog Insulin Scale: 1-4 units. See scale below. ISF 1: 50 > 200. Continue linagliptin 5 mg daily. Glucose checks AC/HS & 0200. Notify endocrine team in the daytime or primary team overnight if BG <70 or >350 mg/dL. Hypoglycemia protocol in place. Vitals: 10/31/24 2300 97.9 (36.6) 70 18 143/66 Abnormal 95 room air (none) 10/31/245 -- 78 16 163/73 Abnormal 94 room air (none) 10/31/242029 -- 78 16 157/94 Abnormal 94 room air (none) 10/31/242019 -- -- -- -- -- room air (none) 10/31/242017 97.3 (36.3) 64 20 164/72 Abnormal 96 room air (none) 10/31/24 1930 -- 73 20 139/65 96 room air (none) 10/31/24 1915 -- 75 20 147/70 Abnormal 95 room air (none) 10/31/24 1900 -- 77 20 149/68 Abnormal 93 room air (none) 10/31/24 1845 -- 77 20 145/69 Abnormal 92 room air (none) 10/31/24 1834 -- 76 15 126/65 96 -- 10/31/24 1632 -- -- 20 -- -- nasal cannula 10/31/24 1500 98.1 (36.7) 61 20 129/62 99 nasal cannula 10/31/24 1207 -- 68 20 138/64 100 nasal cannula 10/31/24 0914 -- 74 -- 152/86 Abnormal -- -- 10/31/24 0817 98.2 (36.8) 67 20 145/73 Abnormal 97 nasal cannula 10/30/24 1952 99.1 (37.3) 73 20 104/58 Abnormal 94 nasal cannula 10/30/24 1626 96.8 (36) 72 22 Abnormal 159/71 Abnormal 97 nasal cannula Meds/Treatments: ASA PO, Lipitor 80mg PO, Rocaltrol PO, Lantus 8U subcutaneous, ToprolXl 75mg PO, NS 195.6 ml/hr IV,Heparin IV Cont Labs/Diagnostics: H/H: 9.6/ 31.2 BUN: 40 CR: 4.6 GFR: 12 PHOS: 4.7 TROP T: 396 CARDIAC CATH: CONCLUSIONS/RECOMMENDATIONS Moderate proximal and mid LAD calcified focal stenosis. Normal LVEDP Severe stenosis of nondominant right coronary artery. Medically manage coronary artery disease in light of moderate LAD disease and CKD stage IV Bed Type: Telemetry D/C Plan: ongoing care Sign Candice Causey RN 11/01/2024 9:08 AM * Plan of Care - Edilson Yao RN - 11/01/2024 5:08 AM EST Problem: Adult Inpatient Plan of Care Goal: Plan of Care Review Outcome: Progressing Flowsheets (Taken 11/01/2024 0507) Outcome Evaluation: Pt offers no complaints at this time. Denies CP or SOB. Medicated per DEC. Pt arrived to the unit at 2000 from [facility]. Upon assessment pt is Aox4, NSR on monitor and on RA. RRA CDI. TR Band off at 2014. No significant events overnight. Safety maintained and call dotson within reach. Plan for possible discharge today. Edilson Yao 11/01/2024 5:08 AM * Plan of Care - Oksana Zhang RN - 10/31/2024 6:38 PM EST Plan of Care Reviewed With: patient Progress: no change Outcome Evaluation: Pt. Alert and oriented x4. On 2L NC satting in the high 90s. NSR on the monitor. No c/o of pain or discomfort. Got pre cath fluids. Heparin gtt infusing. Sent to [facility] for LHC.Strict isolation d/c. Oksana Zhang 10/31/2024 6:38 PM * Plan of Care - Torie Kwan RN - 10/30/2024 7:44 PM EST Plan of Care Reviewed With: patient Progress: improving Outcome Evaluation: Pt is A&Ox4. denies pain and SOB. medicated per DEC. Heparin continues per DEC. Strict isolation maintained. safety maintained throughout shift. Plan is for cath tomorrow Torie Kwan 10/30/2024 7:44 PM * Hospital Course - Thomas Medrano MD - 10/30/2024 6:41 PM EST Neymar Wilder presented to outside hospital with NSTEMI and DKA. Patient was found to be hypoxic. Additionally patient was tested positive for COVID on 10/19/2024. EKG showed sinus rhythm with poor R wave progression and nonspecific T wave abnormalities. Outside hospital troponin was elevated at 1830. On 10/18/2024, he was transferred to [facility] intensive care unit. He received treatment to DKA, acidosis and hyperglycemia improved on intravenous fluid and insulin therapy. Upon admission to [facility] NT-proBNP was found to have 70K and high- sensitivity troponin was 4000. Chest x-ray also showed pulmonary edema. He underwent bilateral thoracentesis on 10/29/2024.Nephrology and cardiology are following him. He was daily evaluated for need of diuretics and was receiving IV Lasix as indicated. Patient had a stage V kidney disease, nephrology were following him during hospitalization. Creatinine continues stable during hospitalization. He was aware of his risk of developing contrast-inducednephropathy if it proceed with cardiac cath. Cardiology and interventional cardiology following the patient and coronary angiography was recommended. Patient underwent coronary angiography on * Plan of Care - Diandra Low RN - 10/30/2024 2:59 PM EST Case Management Care Plan Note Summary: Per clinical progression rounds with the bedside RN and provider, and ongoing continuing care assessment, patient is not yet clinically stable for transition. Plan is for [facility] today. At this time transition plan remains for patient to be discharged when medically stable. CC will continue tofollow for readiness to transition. Recommendation: Anticipate transition home when medically stable. * Plan of Care - Ольга Nugent RN - 10/30/2024 7:07 AM EST Progress: improving Outcome Evaluation: Aox4, no complaints of SOB or chest pain.On 2L NC. Heparin gtt infusing. StrictIsolations maintained. 2 am BG was 74, repeat BG was 90. NPO since midnight for cath. Ольга Nugent 10/30/2024 7:07 AM * Plan of Care - Torie Kwan RN - 10/29/2024 7:45 PM EST Plan of Care Reviewed With: patient Progress: improving Outcome Evaluation: Pt is A&Ox4. Denies pain and SOB. Medicated per DEC. Safety maintained throughout shift. Contact precautions maintained. Plan is NPO at midnight for cath tomorrow Torie Kwan 10/29/2024 7:45 PM * Plan of Care - Martha Rene RN - 10/29/2024 5:37 AM EST Problem: Adult Inpatient Plan of Care Goal: Plan of Care Review Outcome: Progressing Problem: Fall Injury Risk Goal: Absence of Fall and Fall-Related Injury Outcome: Progressing Problem: Skin Injury Risk Increased Goal: Skin Health and Integrity Outcome: Progressing Problem: Heart Failure Goal: Stable Heart Rate and Rhythm Outcome: Progressing Denies any pain or SOB at this time. Resting quietly. SR on monitor. VS taken and recorded. Remainson oxymask with O2 @ 2L, sats 92-95%. Encouraged deep breathing and coughing exercises. Continued on strict isolation and heparin drip per protocol with XA daily. Repositioned as needed. Incontinencecare done. Placed fall alarm. Placed call dotson within reach. Bed fall alarm activated. Needs attended.Plan of acre continued. Martha Rene 10/29/2024 5:37 AM * Plan of Care - Zaria Leyva RN - 10/28/2024 6:30 PM EST Plan of Care Reviewed With: patient Progress: no change Outcome Evaluation: Pt had 21 beats of Vtach today, pt asymptomatic. Providers notified. Pacer padsat bedside per order. Pt remains on 2L Oxymask, O2 sats stable. 1x dose IV lasix given today per order. Pt transferring to [facility], Report given to RN. Zaria Leyva 10/28/2024 6:30 PM * Plan of Care - Anny Joyce PA-C - 10/28/2024 3:36 PM EST Images from the original note were not included. [facility] Cardiology Transfer Service Plan of Care Note Pt noted to have ~20 beats of Vtach on monitor. Reportedly asymptomatic and hemodynamically stable during episode. Recommendations: -Aggressive electrolyte replacement with 2g IV Mag and 20 mg PO K+ -Lopressor 25 mg PO x1 with plan to increase Toprol-XL 100 mg daily tomorrow -No antiarrhythmic at this time -Pacer pads on -Tentatively planned for [facility] Tuesday, if VT persists contact [facility] [employer] [facility] sooner for consideration of more urgent catheterization -Continue to monitor on telemetry Plan discussed with cardiology attending, Dr. Contreras who is in agreement with plan of care as above. Sign Anny Joyce PA-C 10/28/2024 3:36 PM * Plan of Care - Kavya Burgess MD - 10/28/2024 10:52 AM EST Attempted to call son Prem on phone, no answer, voicemail left. Spoke to Khalif on phone, updated that patient is still awaiting catheterization procedure pending availability for OR. All questions were answered. Kavya Burgess MD Internal Medicine PGY2 Available via [employer] 10/28/24 10:54 AM * Plan of Care - Rin Anderson RN - 10/28/2024 6:10 AM EST Progress: no change Outcome Evaluation: Pt remained on heparin gtt overnight. Next AntiXa to be drawn this morning. Pt was desating to 70s, nonsustained but placed on 2L Oxymask with improvement. No SOB reported. Plan for heart cath next week. Safety maintained. Rin Anderson 10/28/2024 6:10 AM * Plan of Care - Zaria Leyva RN - 10/27/2024 5:23 PM EST Plan of Care Reviewed With: patient Progress: no change Outcome Evaluation: Weaned to RA today, O2 sats stable. Continues on Heparin gtt. Up to chair today. Received PO mag and K replacement today. Plan for heart cath next week. Safety maintained. Zaria Leyva 10/27/2024 5:23 PM * Plan of Care - Donavon Rodgers MD - 10/27/2024 12:19 PM EST I called the patient's son with hospital update, let him know his father remained stable and we continue optimizing for [employer]. Catheter most likely happen early next week. He was appreciated update and I answered all his questions to the best my ability. Donavon Rodgers MD PGY-1 Internal Medicine [place] Text [employer] * Plan of Care - Rin Anderson RN - 10/27/2024 6:28 AM EST Progress: no change Outcome Evaluation: Pt remained on heparin gtt overnight. Next AntiXa to be drawn this morning. Pt has been NPO since midnight for possible procedure today. D5W running at 25mL/hr. Pt had low blood sugar overnight of 74, 12.5 mg PRN Dextrose given per MD request with improvement. Continues on 4L Oxymask. Safety maintained. Rin Anderson 10/27/2024 6:28 AM * Plan of Care - Sarah Nielsen RN - 10/26/2024 6:54 PM EST Plan of Care Reviewed With: patient Outcome Evaluation: [id number]: Neymar was A&Ox4 and had no complaints of pain or SOB. Continuedon 4L oxymask. Heparin gtt continued at goal. Patient was not taken to OR for heart cath today. Diet resumed. Blood sugars monitored. Safety maintained. Sarah Nielsen 10/26/2024 6:54 PM * Plan of Care - Catalina Wisdom RN - 10/26/2024 4:10 PM EST Ongoing Case Management Care Plan Note Summary: pending cardiac cath Patient is from [place]. Recommendation: dispo plan home with HC services (if patient is agreeable) and family, when medically ready. Problem: Adult Inpatient Plan of Care Goal: Readiness for Transition of Care Outcome: Progressing Catalina Wisdom 10/26/2024 4:10 PM * Plan of Care - Donavon Rodgers MD - 10/26/2024 1:39 PM EST I called the patient's son Prem with hospital update. Let him know that we continue to wait cardiaccath as this is what the patient and family wants during this admission. What is reassuring is thathis glucose levels have been stable. We continue to work closely with endocrinology to make sure hedoes not return to DKA. He was appreciated of of the update and I answered all his questions to the best my ability. Donavon Rodgers MD PGY-1 Internal Medicine [place] Text Preferred * Plan of Care - Sirisha Adams RN - 10/26/2024 4:49 AM EST Progress: improving Outcome Evaluation: [id number]: Neymar remains alert and oriented *4. no shortness of breath. Continued on 4L oxymask, sating above goal. Continued on heparin drip. NPO since midnight for left and right heart cath today. slept between care. Sirisha Adams 10/26/2024 4:49 AM * Plan of Care - Olga Terrell RN - 10/25/2024 6:50 PM EST Plan of Care Reviewed With: patient Progress: improving Outcome Evaluation: 5745-1514. Pt alert and oriented *4. No reports of pain or shortness of breath.Continues on hep gtt. 40 mg of IV lasix given. Troponin elevated. MD Burgess notified. STAT EKG completed. Continues on tele and pulse ox. Vital signs stable. Pt NPO at midnight for possible left and right heart cath tomorrow. Safety measures maintained. Medicated per DEC. Olga Terrell 10/25/2024 6:50 PM * Plan of Care - Asha Collins MD - 10/25/2024 4:19 PM EST Patient set to go to [facility] tomorrow, has been made NPO at midnight. Called bed management to facilitate transfer of patient to [address] in a private room 2/2 COVID + status post cath * Plan of Care - Donavon Rodgers MD - 10/25/2024 12:49 PM EST I called the patient's son Prem with hospital update. I apologize for the delay in heart catheterization, and he was very understanding. I relayed that we continue waiting for the procedure, however his father remained stable. I answered all the questions to the best my ability and he was grateful for the update Donavon Rodgers MD PGY-1 Internal Medicine [place] Text Pref[employer] * Plan of Care - Catalina Wisdom RN - 10/25/2024 9:02 AM EST Ongoing Case Management Care Plan Note Summary: Per MD-plan for patient to go for cardiac cath Spoke with patient's son regarding PT's recommendations for home with HC. Patient lives with son. He reports patient has a walker and a cane at home if needed. CM will speak with patient if he is agreeable to home care services. Recommendation: dispo plan home with HC when medically ready Problem: Adult Inpatient Plan of Care Goal: Readiness for Transition of Care Outcome: Progressing Catalina Wisdom 10/25/2024 9:02 AM * Case Coordination-Payor Communication - Nathalia Liao RN - 10/25/2024 8:43 AM EST Continued Stay Review Date: 10/25/2024 Clinical Update: NPO for [facility] [employer] today. Spot dose Lasix. Continues on heparin gtt while awaiting [facility] [employer]. Plan: #NSTEMI #Acute decompensated HFrEF (LVEF 28%) #Pulmonary edmea and effusion s/p thoracentesis (10/19/24) #Moderate functional MR #HTN Chest x-ray worsening pulmonary edema. Bilateral thoracentesis were performed 10/19. Patient continues to await heart catheterization. - Cardiology following, appreciate recommendations - Spot dose Lasix today 40 mg IV - Strict I's and O's - Continue heparin drip per ACS protocol - Continue aspirin 81 mg daily - Continue atorvastatin 80 mg daily - Increase metoprolol succinate to 75 mg daily - Continue telemetry -- Potential cath later today, will remain n.p.o. #Diabetic ketoacidosis, resolved #Type 2 diabetes, insulin-dependent He will continue working with endocrinology closely to monitor his blood glucose levels and adjust his insulin accordingly - Lantus 18 units daily - Insulin sliding scale - Add D5 fluids at low rate if patient is n.p.o. for extended period of times - Glucose checks before meals and at bedtime - Endocrine following, follow recommendations Discharge planning: please reach out to Endocrine- please give advanced notice doses/format depending on disposition ( SNF vs home) #COVID-positive Asymptomatic. - Monitor fever and WBC curve - Airborne precautions 10/19 #ALISA on stage CKD #Anion gap metabolic acidosis secondary to DKA Patient is at his baseline BUN and creatinine 80/4.8. Nephrology was consulted given the patient isCKD stage V and will need eventual cardiac cath. Per nephrology he currently does not need dialysis. --Follow up nephrology recommendations - Stop sodium bicarbonate tablets - Sodium citrate 30 mL 3 times daily - Darbepoetin alpha 60 mcg weekly - BMP daily - Strict I's and O's - Avoid nephrotoxic agents #Anemia -Darbepoetin 60 mcg subcutaneous weekly #Hypocalcemia worsening now down to 7.1. - Calcitriol 0.5 mcg daily - Calcium carbonate 500 mg twice daily - Follow-up PTH #Hypothyroidism - Continue home Synthroid 25 mcg daily Assessment & Plan per Nephrology 1.) CKD V Bl creatinine had previously been 4.5 but has improved to 4.0 Seem to have optimized his renal function for catheterization today Lázaro Score slightly improving with falling creatinine still greater than 25% lab clerk providers are well aware of this condition He understands this risk but given the potential for devastating heart disease that could be lethalthere is a with risk benefit to consider here 2.) small increased anion gap metabolic acidosis Due to DKA on admission. Still has mild beta-hydroxybutyrate level from yesterday Slowly improving Will continue sodium citrate 30 mL TID 3.)Anemia - darbe 60mcg subcutaneous weekly 4) hypocalcemia - calcitriol 0.5 a day and oral calcium 500 BID . PTH > 500 -secondary hyperPTHism as well, continue current therapy Assessment & Plan per Endocrine Assessment: Neymar Wilder is a 79 y.o. male with T2DM (8.7%-10/19/2023), CKD5, HTN, who presented to OSH with cough, chills, dyspnea, found to have PNA, transferred to with concerns of NSTEMI, DKA. Endocrinology consulted for diabetes BG largely within goal, may require increase to carb scale. Basal reduced given that BG was tighterwhile NPO. If patient remains NPO by this evening, recommend low rate of dextrose-containing IVF. Hospital Plan Decrease to Lantus Insulin 16 units daily. Continue Meal Carb Humalog Insulin Scale: 1-8 units, 3 times a day with meals. See scale below. ICR 1: 9. Continue Meal Correction Humalog Insulin Scale: 1-6 units, 3 times a day with meals. See scale below. ISF 1: 40 > 140. Continue Nightly/0200 Correction Humalog Insulin Scale: 1-4 units. See scale below. ISF 1: 50 > 200. Glucose checks AC/HS & 0200. Notify endocrine team in the daytime or primary team overnight if BG <70 or >350 mg/dL. Hypoglycemia protocol in place. Please endocrinology team updated on discharge planning including date, disposition. Discharge Planning: Pending needs - patient on basal only at home, would prefer to coordinate similar regimen for discharge. Noted to be on Januvia - would prefer to switch to Tradjenta given renal function. Vitals: Vitals: 10/25/24 0718 BP: 145/70 Pulse: 77 Resp: 16 Temp: 96.9 SpO2: 94% Oxymask 3L Meds/Treatments: Scheduled Meds: aspirin, 81 mg, Oral, Daily atorvastatin, 80 mg, Oral, Daily calcitRIOL, 0.5 mcg, Oral, Daily calcium carbonate, 500 mg, Oral, BID chlorhexidine, 15 mL, Mouth/Throat, BID darbepoetin kelley (ARANESP) injection, 60 mcg, Subcutaneous, Weekly [Provider Held] insulin glargine, 18 Units, Subcutaneous, Daily insulin lispro, 1-4 Units, Subcutaneous, 3 times per day insulin lispro, 1-6 Units, Subcutaneous, TID with meals insulin lispro, 1-8 Units, Subcutaneous, TID with meals levothyroxine, 25 mcg, Oral, Daily 6AM metoPROLOL SUCCINATE, 75 mg, Oral, Daily senna-docusate, 2 tablet, Oral, Nightly sodium citrate-citric acid, 30 mL, Oral, TID Continuous Infusions: heparin (porcine) IV infusion - low dose protocol, 12 Units/kg/hr (Order- Specific), Last Rate: 16 Units/kg/hr (10/25/24 0616) PRN Meds: bisacodyl glucose OR glucose OR dextrose OR dextrose OR glucagon heparin (porcine) lactulose naloxone Labs/Diagnostics: 10/24/24 20:23 10/24/24 21:57 10/25/24 01:03 10/25/24 05:15 10/25/24 05:21 Anticoagulant IV HEPARIN Anti Xa 0.58 0.51 POC Glucose 211 (H) 125 (H) 115 (H) (H): Data is abnormally high Bed Type: Telemetry D/C Plan: ongoing * Plan of Care - Olga Terrell RN - 10/24/2024 7:27 PM EST Plan of Care Reviewed With: patient Progress: improving Outcome Evaluation: 3754-2876. Pt alert and oriented *4. No reports of pain or shortness of breath.Continues on hep gtt. Chest xray completed at bedsite. 40mg of IV lasix given. One time dose of 50 mg metropolol given. 1g of IV Mag repleted. Pt initiated on IVF for 6 hours per endocrine orders, and D/C per provider orders. Continues on tele and pulse ox. Vital signs stable. Plan for possible left and right heart cath tomorrow. NPO at midnight. Safety measures maintained. Medicated per DEC. Olga Terrell 10/24/2024 7:27 PM * Plan of Care - Kavya Burgess MD - 10/24/2024 5:41 PM EST Discussed with family members Prem and Khalif on phone separately that cardiology notified nurse thatpatient will not be going for cath today due to emergencies/availability in OR and that patient will be able to eat until 12 AM tonight. They would like to speak to Cards about this, will reach out to cards to see if they can directly speak to family. * Plan of Care - Donavon Rodgers MD - 10/24/2024 12:14 PM EST I called the patient's son Prem with hospital update. I let him know that the plan is for his father to go to the [employer] today. He had increasing oxygen requirements overnight and repeat chest x-ray revealed pulmonary edema. We need to balance diuresing the patient along with hydrating him to protect his kidneys. Prem understood the plan and will proceed with Lasix along with gentle hydration. He was grateful for the update and I answered all of his questions the best my ability. Donavon Rodgers MD PGY-1 Internal Medicine [place] Text Preferred * Plan of Care - Sirisha Adams RN - 10/24/2024 6:44 AM EST Outcome Evaluation: [id number]: Neymar is alert and oriented *4. Denies pain. Continued on heparin drip, anti xa therapeutic *2. Had 14 beats of Vtach, Dr. Kenyetta Gillis notified, stat labs collected. Calcium gluconate given. Desating on room air to the low 80s, placed on 3L oxymask, sating to the 90s. NPO since midnight, possible right and left heart cath today. Sirisha Adams 10/24/2024 6:44 AM * Plan of Care - Olga Terrell RN - 10/23/2024 6:57 PM EST [id number]. Pt alert and oriented *4. No reports of pain or shortness of breath. Continues on hep gtt. Change in morphology noted. Prolonged QTC of 0.53. EKG completed. Vital signs stable. Labs drawn.MD Qing Hester notified. Plan for possible left and right heart cath tomorrow. Safety measures maintained. Medicated per DEC. Olga Terrell 10/23/2024 6:57 PM * Plan of Care - Zaria Leyva RN - 10/23/2024 3:30 PM EST Plan of Care Reviewed With: patient Progress: no change Outcome Evaluation: 0342-1277: No acute changes. Heparin gtt adjusted per order parameters. Up to chair today. No c/o chest pain. Plan for possible left and right heart cath tomorrow. Zaria Leyva 10/23/2024 3:30 PM * Plan of Care - Glenny Pires RN - 10/23/2024 5:46 AM EST Plan of Care Reviewed With: patient Progress: no change Outcome Evaluation: Neymra had no acute changes. Alert and oriented x4, forgetful at times. Continues on heparin gtt. NPO at midnight for heart cath procedure today. Glenny Pires 10/23/2024 5:46 AM * Plan of Care - Sarah Nielsen RN - 10/22/2024 6:28 PM EST Plan of Care Reviewed With: patient Outcome Evaluation: [id number]: In the beginning of the shift Neymar was A&Ox4 and had no complaints of pain. Upon reassessment patient was found to have increased confusion disoriented to time and place. Neuros intact. aware and evaluated pt at bedside with no concerns for anything acute. Heparin gtt continued at goal. Plan for heart cath tomorrow. Per cards continue heparin gtt until surgery. NPO at midnight. Blood sugars monitored. Safety maintained. Sarah Nielsen 10/22/2024 6:28 PM * Plan of Care - Donavon Rodgers MD - 10/22/2024 2:14 PM EST I called the patient's son, Khalif, with hospital update. I let him know that his father will be getting a right and left heart cath tomorrow and will be transferred to cardiac floor after. He remainedstable. He was grateful for the update and answered all his questions the best my ability. Donavon Rodgers MD PGY-1 Internal Medicine [place] Text [employer] * Rehab Therapy Consults - Shae Chopra, PT - 10/22/2024 10:00 AM EST Physical Therapy Initial Evaluation Current Diagnosis and Pertinent Medical History: Neymar Wilder is a 79 y.o. male admitted with URI; course complicated by NSTEMI. Precautions/Restrictions: fall, other (see comments) (skin, isolation: strict) Previous Level Of Function/Home Environment Home Environment: Living Arrangements: home People In Home: child(trini), adult Prior Level Of Function: Household Mobility: independent Community Mobility: independent Equipment Used at Home: none PLOF: (I) for mobility, no AD use Assessment & Plan Assessment: Patient demonstrates impairments in overall functional mobility, including strength, balance, and activity tolerance. At the time of initial evaluation, patient able to perform transfers and pre-gait activities; see detailed objective data below. Patient is currently functioning below baseline, prior to admission was independent for ambulation without AD use. Anticipate that patient will be able to transition home with increased frequency of ambulation. If transitioning to home, patient will require use of RW, home PT, and family assistance for safety with ambulation. Rehab Plan of Care: PT will follow while patient remains in-house. Patient will benefit from mobilization via nursing staff, specifically for getting OOB to chair at least 3x/day, in order to preserve current level of function. Patient will require continued skilled inpatient PT to progress ambulation. Patient most limited from mobility progression at this time by Covid restrictions. PT will follow up in 2-3 days or as able. PT Recommendations for Staff: OOB to chair with Ax1 and RW PT Frequency during Hospitalization: 2-3 times/wk Plan of Care Reviewed With: patient Outcome Measures The Activity Measure for Post-Acute Care (AM-PAC) Basic Mobility Inpatient Short Form (6-clicks) yolette standardized measure used to quantify functional deficits in mobility. The total score of the measure ranges from 6-24. A higher score indicates a higher level of independence with functional mobility. Baseline [facility] Basic Mobility Score: 24 Current [facility] Basic Mobility Score: 20 Objective Data ROM: BLEs grossly WFL MMT: BLEs grossly at least 3+/5 via functional mobility Bed Mobility: performed supine <> sit independently Transfers: performed sit <> stand transfers x3 with SBAx1 with supervision, no AD use; patient performed pre-gait activities including 4-5 forward, backward, and lateral steps with SBAx1 with supervision, no AD use; steady, no LOB Balance: static sitting - good dynamic sitting - good static standing - good dynamic standing - fair Activity Tolerance: Good for eval. Patient performed all activity on RA. Education: Role of PT, purpose of evaluation and POC. Treatment: mobility as detailed above; bed mobility training, transfer training Subjective I'm excellent. Past Medical/Surgery History No past medical history on file. No past surgical history on file. Flowsheet Data 10/22/24 1000 Physical Therapy Time and Intention PT Visit Type initial evaluation Mode of Treatment individual therapy;physical therapy Patient Effort good Symptoms Noted During/After Treatment none General Information Patient Profile Reviewed yes Onset of Illness/Injury or Date of Surgery 10/18/24 Referring Physician Bruna Patient/Family/Caregiver Comments/Observations I'm excellent. General Observations of Patient Patient received in supine with HOB elevated, agreeable to PT evaluation. Pertinent History of Current Functional Problem Per chart: eNymar Hernándezozziekirk is a 79 y.o. male with PMHx of insulin-dependent T2DM, HFrEF, CKD, HTN, who presented with to outside hospital with URI symptoms, transferred to [facility] for management of DKA and ICU, stable for downgrade to stepdown level care on 10/20/2024. Hospital course complicated by NSTEMI on heparin drip, acute hypoxicrespiratory failure. Existing Precautions/Restrictions fall;other (see comments) (skin, isolation: strict) Previous Level of Function/Home Environm Bed Mobility, Premorbid Functional Level independent Transfers, Premorbid Functional Level independent Household Ambulation, Premorbid Functional Level independent Stairs, Premorbid Functional Level independent Community Ambulation, Premorbid Functional Level independent Previous Level of Function, Premorbid PLOF: (I) for mobility, no AD use Additional Documentation Home Use of Assistive/Adaptive Equipment (Group) Living Environment Current Living Arrangements home Home Accessibility stairs to enter home People in Home child(trini), adult Primary Care Provided by self Home Main Entrance Number of Stairs, Main Entrance two Home Use of Assistive/Adaptive Equipment Equipment Currently Used at Home none Equipment Brought to Hospital none Pain Additional Documentation Pain Scale: Numbers Pre/Post-Treatment (Group) Pain Scale: Numbers Pre/Post-Treatment Pretreatment Pain Rating 0/10 - no pain Pain Scale: Numbers, During Treatment 0/10 - no pain Posttreatment Pain Rating 0/10 - no pain Pre/Posttreatment Pain Comment Patient denies pain Health Promotion Additional Documentation Coping (Group);Plan of Care Review (Group) Coping Trust Relationship/Rapport care explained Observed Emotional State calm;cooperative Verbalized Emotional State acceptance Family/Support Persons patient Involvement in Care participating in care Plan of Care Review Plan of Care Reviewed With patient Safety Safety WDL WDL Enhanced Safety Measures bed alarm set Progressive Mobility Progressive Mobility Level Achieved Transferring to Chair [facility] Basic Mobility Turning from your back to your side while in a flat bed without using bedrails? 4 Moving from lying on your back to sitting on the side of a flat bed without using bedrails? 4 Moving to and from a bed to a chair (including wheelchair)? 3 Standing up from a chair using your arms? 3 To walk in a hospital room? 3 Climbing 3-5 steps with a railing? 3 [facility] Basic Mobility Score 20 Therapy Assessment/Plan (PT) Patient/Family Therapy Goals Statement (PT) to return home Functional Level at Time of Evaluation (PT) transferring to chair PT Diagnosis (PT) impaired functional mobility and activity tolerance Rehab Potential (PT) good Criteria for Skilled Interventions Met (PT) yes Therapy Frequency (PT) 2-3 times/wk PT Recommendations for Staff OOB to chair with Ax1 and RW Predicted Duration of Therapy Intervention (PT) LOS Planned Therapy Interventions (PT) balance training;gait training;home exercise program;patient/family education;strengthening;transfer training Problem List (PT) problems related to;balance;mobility;strength;pain PT Evaluation Complexity History, PT Evaluation Complexity 1-2 personal factors and/or comorbidities Examination of Body Systems (PT Eval Complexity) total of 3 or more elements Clinical Presentation (PT Evaluation Complexity) evolving Clinical Decision Making (PT Evaluation Complexity) moderate complexity Overall Complexity (PT Evaluation Complexity) moderate complexity Therapy Plan Review/Discharge Plan (PT) Therapy Plan Review (PT) evaluation/treatment results reviewed;care plan/treatment goals reviewed;risks/benefits reviewed;current/potential barriers reviewed;participants voiced agreement with care plan;participants included;patient Physical Therapy Goals Transfer Goal Selection (PT) transfer, PT goal 1 Gait Training Goal Selection (PT) gait training, PT goal 1 Stairs Goal Selection (PT) stairs, PT goal 1 Transfer Goal 1 (PT) [place] Level/Cues Needed (Transfer Goal 1, PT) modified independence Time Frame (Transfer Goal 1, PT) 2 weeks Activity/Assistive Device (Transfer Goal 1, PT) transfers, all;walker, rolling Gait Training Goal 1 (PT) Time Frame (Gait Training Goal 1, PT) 2 weeks [place] Level (Gait Training Goal 1, PT) modified independence Activity/Assistive Device (Gait Training Goal 1, PT) gait (walking locomotion);walker, rolling Distance (Gait Training Goal 1, PT) 300 feet Stairs Goal 1 (PT) [place] Level/Cues Needed (Stairs Goal 1, PT) supervision required Activity/Assistive Device (Stairs Goal 1, PT) stairs, all skills Number of Stairs (Stairs Goal 1, PT) 2 Time Frame (Stairs Goal 1, PT) 2 weeks Sign: Shae Chopra PT * Plan of Care - Glenny Pires RN - 10/22/2024 5:45 AM EST Plan of Care Reviewed With: patient Progress: no change Outcome Evaluation: Neymar was noted to have slight increased WOB, use of accessory muscles, and reporting mild SOB overnight. O2 sats stable on room air. MD notified. Spot dosed with 20 mg IV lasix with improvement. EKG completed per MD order. Pt woke up disoriented to location and forgetful this morning, requiring frequent reorientation. aware. Continues on heparin gtt. Glenny Pires 10/22/2024 5:45 AM * Plan of Care - Sarah Nielsen RN - 10/21/2024 6:31 PM EST Plan of Care Reviewed With: patient Outcome Evaluation: [id number]: Neymar was A&Ox4 and had no complaints of pain. AntiXa at goal x2. Heparin gtt continued at goal and daily draws ordered. Blood sugars monitored. Safety maintained. Sarah Nielsen 10/21/2024 6:31 PM * Plan of Care - Antonio Hameed MD - 10/21/2024 11:03 AM EST An attempt was made to contact patient's son to provide a medical update, the call was directed to voicemail and a HIPAA compliant message was left as he did not have personalized voicemail set up. Will attempt to reach again tomorrow. Antonio Hameed PGY1 - Internal medicine * Plan of Care - Glenny Pires RN - 10/21/2024 5:56 AM EST Plan of Care Reviewed With: patient Progress: no change Outcome Evaluation: Neymar had no acute changes. Heparin gtt continued, adjusted per protocol. Blood sugars stable. Glenny Pires 10/21/2024 5:56 AM * Plan of Care - Zaria Leyva RN - 10/20/2024 6:05 PM EST Plan of Care Reviewed With: patient Progress: no change Outcome Evaluation: Arrived from [facility] around 1600. Skin check complete with 2nd RN. Oriented to room. Remains on heparin gtt. Insulin given per order. Safety maintained. Zaria Leyva 10/20/2024 6:05 PM * Plan of Care - Jose Barakat RN - 10/20/2024 5:07 PM EST Initial Case Management Care Plan Note In the setting of Covid-19 pandemic, will minimize unnecessary contact with patient to lessen the risk of exposure and conserve PPE. Assessment completed via telephone with patient and with his sons (Khalif and Prem Wilder), medical record review and discussion with clinical team. Provided a CaseCoordination packet with contact information, CC pamphlet and Your Next Step: Care Outside the Hospital brochure to the bedside and given to the patient's sons. Summary: Neymar Wilder is an 79 years old male transferred from an Outside Hospital for CHF,DKA, NSTEMI, COVID. Medical history of Heart Attack, CKD Stage 5, HLD, HTN, Prostate Cancer, Gout, T2DM. He and his son, Prem Wilder, share a home (two level with stairs to enter). At baseline, Kaleb is independent with ADLs and IADLs, drives. Anticipated transition plan:Home Routine, with family support. Caregiver/responsible person supports:Self and Family PCP: Updated in [employer]. Added his preferred pharmacy as well. Anticipated transportation:Family Referrals made: None Barriers to discharge: Cardiology work up and clearance; O2; Hep drip, ID follow up. Problem: Adult Inpatient Plan of Care Goal: Readiness for Transition of Care Outcome: Progressing Jose Barakat 10/20/2024 5:07 PM * Plan of Care - Campbell Flores RN - 10/20/2024 3:31 PM EST Plan of Care Reviewed With: patient Progress: improving Outcome Evaluation: Neymar is alert and oriented x4, pleasant. Both adult sons supportive and at the bedside. No complaints of pain or shortness of breath. Transitioned from NC to RA. NSR on tele. Remains on heparin gtt. Hemodynamically stable. Urinating with male purewick. Tolerating diet well, onSQ insulin per endocrinology. LBM 10/19. Stable for tx to floor. Report given to Jw ARGUETA and care transferred without incident. Patient and family updated at the bedside. Campbell Flores 10/20/2024 3:31 PM * Plan of Care - Cierra Greenberg MD - 10/20/2024 1:32 PM EST ICU DOWNGRADE ACCEPT NOTE LOS: 2 CODE: FULL Hospital course: Neymar Wilder is a 79 y.o. male with PMHx of insulin-dependent diabetes, HFrEF, stage V CKD, hypertension who was admitted ICU level care due to DKA as well as an NSTEMI on a heparin drip. Hospital course complicated by AHRF likely 2/2 HF exacerbation less likely from COVID pneumonia given congestion on CXR and significant improvement in oxygen requirements following thoracentesis and diuresis. Patient is s/p bilateral thoracentesis on 10/19/24. He was transitioned off insulin drip to subcutaneous insulin and diabetic diet on 10/19/24. Although anion gap is elevated, it does not correlatewith persistently normal BHB levels or normal lactate; this was dicussed with endocrine and patientis no longer in DKA given normal BHB and stable VBG and well controlled BG levels. Otherwise, patient was noted to have an NSTEMI for which he remains on a heparin drip per cardiology recs. Assessment/Plan: Neymar Wilder is a 79 y.o. male with PMHx of insulin-dependent diabetes, HFrEF, stage V CKD, hypertension who was admitted ICU level care due to DKA as well as found to be COVID-positive and anNSTEMI on a heparin drip. Now transition to subcutaneous insulin and stable to transfer to floor level of care. NSTEMI Acute decompensated HFrEF (LVEF 28%) Moderate functional MR HTN Patient presented with a proBNP of 70,000, and up trending troponins. EKG showed sinus rhythm with poor R wave progression and nonspecific T wave abnormalities. Troponin elevated at 1830 -> 4171, ruling patient in for NSTEMI. He was transferred to for further evaluation and management. TTE on10/18/2024 showed severely decreased LVSF with newly reduced LVEF of 28%. Cardiology was consulted. Chest x-ray worse ending pulmonary edema. Bilateral thoracentesis were performed 10/19. - Follow-up pleural effusion cultures - Spot dose Lasix - Strict I's and O's - Further cardiac ischemic workup by cardiology once medically stable - Continue heparin drip per ACS protocol - Continue aspirin 81 mg daily - Continue atorvastatin 80 mg daily - Continue telemetry -Cardiology following, appreciate recommendations Diabetic ketoacidosis, resolved Type 2 diabetes, insulin-dependent Patient presents from outside hospital due to URI symptoms and found to be in DKA with presenting lab values of 7.13, pCO2 of 25 and serum bicarb of 8. Patient was placed on DKA Glucomander protocol,however he had difficulties with his gap closing. Endocrinology was consulted, patient's beta hydroxybutyrate normalized with stable VBG of well-controlled blood glucose for which he was deemed stable to transfer to subcutaneous insulin. - Lantus 18 units daily - Insulin sliding scale - Glucose checks before meals and at bedtime - Endocrine following, follow recommendations COVID-positive Asymptomatic. - Monitor fever and WBC curve - Airborne precautions 10/19 ALISA on stage III CKD Anion gap metabolic acidosis secondary to DKA Patient is at his baseline BUN and creatinine 80/4.8. Nephrology was consulted given the patient isCKD stage V and will need eventual cardiac cath. Per nephrology he currently does not need dialysis. - Sodium bicarbonate tablets 650 mg twice daily, increase as per nephrology - BMP daily - Strict I's and O's - Avoid nephrotoxic agents Hypothyroidism Home regimen includes Synthroid 25 mcg daily. - Continue Cierra Greenberg [facility] PGY-3 Internal Medicine [facility] Available on [employer] * Plan of Care - Donavon Rodgers MD - 10/19/2024 3:31 PM EST I updated the patient's sons at bedside. I let him know that we are managing his DKA with insulin drip protocol. However we reached out to endocrinology and we believe will be to transition him soon.We wait a few lab values and will transition him to subcutaneous insulin with overlap on insulin drip. We will start him on a diet as well pending these lab values. If he remains stable he will be [place] later tonight. Donavon Rodgers MD PGY-1 Internal Medicine [place] Text Preferred * Case Coordination-Payor Communication - Meme Jones - 10/19/2024 7:24 AM EST Per [facility] General Statutes Sec: [id number]: Notification of determination communicated within 2business days of receipt of all information necessary to complete the review. Please fax authorization determination to [phone] or call [phone] * Case Coordination-Payor Communication - Nathalia Liao RN - 10/19/2024 6:14 AM EST Type: (Inpt/Obs): Inpatient Date of Admission: 10/18/2024 Admitting Dx: DKA HPI: 79 y.o. w/ PMHx of stage V CKD (has not been on hemodialysis follows with nephrology in [place]), insulin-dependent diabetes, hypertension presented from outside hospital and transferred to [facility] for concerns of NSTEMI and DKA. Patient initially presented to outside hospital with URI symptoms including cough, chills, and increased shortness of breath. Patient was found to be hypoxic via EMS in the mid 80s and was placed on 5 L of nasal cannula with improvement which is a new oxygen requirement for the patient. Outside hospital x-ray showed opacities consistent with questionable pneumonia versus pulmonary edema, blood sugar was greater than 700, severe anion gap metabolic acidosis with pH of 7.1 consistent with diabetic ketoacidosis. Additionally patient was tested positive for COVID. EKG showed sinus rhythm with poor R wave progression and nonspecific T wave abnormalities. Outside hospital troponin was elevated at 1830 can be likely due to demand ischemia given DKA and signs of fluid overload from chest x-ray. Initial ED significant labs: -Serum BG of 569 -BUN/creatinine ratio of 83/4.9 (patient has a history of stage IV CKD, appears at his baseline) -Calcium 6.6 -Anion gap of 28 secondary to DKA, serum bicarb 8 -High sensitive troponin of 1830 -Leukocytosis of 11.5 -H/H of 8.5/27.7 (patient has a history of CKD and anemia of chronic disease) -VBG with pH of 7.8, pCO2 of 25, serum bicarb was 8 consistent with anion gap metabolic acidosis secondary to DKA -Osmolality of 359, beta hydroxybutyrate of 3.63 -proBNP of 70,000 ED imaging: -Chest x-ray showing worsening moderate pulmonary edema with trace bilateral pleural effusions ED interventions: -Glucomander for DKA Consults: -Cardiology for NSTEMI -Nephrology for history of stage V CKD (with prior discussions with patient's banking specialist regarding possible initiation of HD) Vitals: Pulse:86,Resp:20,BP:138/69,SpO2:92 %,Weight:68.9 kg (152 lb) Temp Last 24 hrs: Temp Min: 97.2 ??F (36.2 ??C) Max: 97.5 ??F (36.4 ??C) Last temp: 97.2 ??F (36.2 ??C) (Tympanic) Labs/Diagnostics: 10/18/24 05:16 10/18/24 07:25 10/18/24 09:57 10/18/24 11:25 10/18/24 17:04 10/18/24 19:14 10/18/24 22:15 10/18/24 23:11 White Blood Cell Count 11.5 (H) Red Blood Cell Count 2.72 (L) Hemoglobin 8.5 (L) Hematocrit 27.7 (L) MCV 102 (H) MCH 31.3 (H) MCHC 30.7 RDW 16.4 (H) Platelet Count 265 MPV 11.3 Neutrophils Auto 86.0 Abs Neutrophils Auto 9.88 (H) Immature Granulocytes 0.4 Abs Immature Granulocytes 0.05 Lymphocytes Auto 9.2 Abs Lymphocytes Auto 1.06 (L) Monocytes Auto 4.3 Abs Monocytes Auto 0.49 Eosinophils Auto 0.0 Abs Eosinophils Auto 0.00 Basophils Auto 0.1 Abs Basophils Auto 0.01 Sodium 140 139 142 145 145 144 145 143 Potassium 4.9 4.5 4.3 4.2 4.4 4.7 4.2 4.4 Chloride 104 106 108 (H) 111 (H) 110 (H) 110 (H) 111 (H) 110 (H) CO2, POC 8 (LL) 12 (LL) 13 (L) 14 (L) 15 (L) 14 (L) 14 (L) 13 (L) Anion Gap 28 (H) 21 (H) 21 (H) 20 (H) 20 (H) 20 (H) 20 (H) 20 (H) BUN 83 (H) 84 (H) 87 (H) 84 (H) 85 (H) 87 (H) 91 (H) 88 (H) Creatinine 4.9 (H) 5.0 (H) 5.0 (H) 5.0 (H) 5.2 (H) 5.1 (H) 5.2 (H) 5.0 (H) Bun / Creat Ratio 17 17 17 17 16 17 18 18 Glucose 569 (HH) 476 (HH) 304 (H) 212 (H) 112 (H) 154 (H) 113 (H) 103 (H) Calcium 6.6 (LL) 6.6 (LL) 7.2 (L) 7.1 (L) 7.1 (L) 7.0 (L) 7.3 (L) 7.0 (L) Magnesium 1.7 eGFR 11 (L) 11 (L) 11 (L) 11 (L) 11 (L) 11 (L) 11 (L) 11 (L) B-Hydroxybutyrate 3.63 (H) 0.45 (H) Lactic Acid 1.2 Osmolality, Serum/Plasma 359 (H) High Sensitivity Troponin T 1,830 (HH) 2,403 (HH) Delta (Change) 573 (H) proBNP, N-terminal >70,000 (H) Prothrombin Time 13.9 (H) INR 1.2 aPTT 68 (H) Anti Xa 0.72 0.47 0.23 Venous Blood PH 7.18 (LL) 7.32 (L) 7.31 (L) 7.35 Venous pCO2 27 (L) 31 (L) 32 (L) 27 (L) Venous pO2 78 (H) 131 (H) 182 (H) 185 (H) Base Deficiency 17.1 9.2 9.7 9.7 Venous Total CO2 11 (L) 17 (L) 16 (L) 15 (L) Respiratory Info NASAL 5 L/MIN NASAL 6 L/MIN VM 50% VM 50% (LL): Data is critically low (HH): Data is critically high (H): Data is abnormally high (L): Data is abnormally low Orders/Treatment Plan: NEUROLOGY: BILLY Behavioral/Sedation scales CAM-ICU Delirium Present: Negative RESPIRATORY Pulmonary edema Admission proBNP of 70,000 Chest x-ray concerning for worsening moderate pulmonary edema with trace bilateral pleural effusions -Follow-up cytology send studies from bilateral thoracentesis performed by procedure team -Diuresis with 40 of IV Lasix -Patient initially on 4 L nasal cannula and was hypoxic in the low 90s requiring oxime mask howeverdespite OxyMask patient was persistently hypoxic in the mid 80s required high flow nasal cannula currently at FiO2 of 100 and flow of 40. -Wean high flow as tolerated -Follow-up VBG CARDIOVASCULAR NSTEMI Admission proBNP of 70,000 The left ventricle is severely dilated. There is eccentric hypertrophy. Left ventricular systolic function is severely decreased. The quantitative EF by 2D Poole biplane is 28%. The anterior and anteroseptal garcia are akinetic. The apex is dyskinetic. There is evidence of diastolic dysfunction, with elevated left atrial filling pressure. The left atrial cavity is severely dilated. The right ventricle is normal in size. Right ventricular systolic function is normal. The estimatedright ventricular systolic pressure is 52 mmHg. There is moderate functional mitral regurgitation. There is mild tricuspid regurgitation. There is a large left pleural effusion. There is no previous study for comparison in our system. -Patient obtained TTE results noted above -Cards evaluated patient recommending continuation with heparin drip, aspirin, atorvastatin 80 mg, and plan for ischemic evaluation when medically stable GASTROENTEROLOGY N.p.o. except meds once patient is able to be transitioned off insulin drip, can resume diet and bridge insulin drip to subcu insulin Nutrition Diet/Nutrition Received: NPO Diet NPO; Meds NEPHROLOGY History of stage V CKD (there were discussions with patient's prior banking specialist Dr. Pelon Smith regarding HD) Initial BUN/creatinine of 83/4.9 (seems at patient's baseline) Metabolic acidosis secondary to DKA -Monitor electrolytes -Monitor I's and O's -Avoid nephrotoxic agents -Follow-up nephrology recommendations given likely need of cardiac catheterization after DKA resolves -Trend BMP every 2 hours Intake & Output Intake/Output Summary (Last 24 hours) at 10/18/2024 1702 Last data filed at 10/18/2024 1214 Gross per 24 hour Intake 18 ml Output -- Net 18 ml ENDOCRINOLOGY DKA -Insulin drip with Glucomander protocol -Gentle fluid resuscitation given concerning signs of volume overload with proBNP of 70,000 and chest x-ray showing pulmonary edema -Patient is to remain n.p.o. until anion gap closes x 2 HEMATOLOGY/ ONCOLOGY Continue with heparin drip for NSTEMI INFECTIOUS DISEASE BILLY -No significant leukocytosis on initial labs Monitor for signs or symptoms of infection -Monitor WBCs and fever curve Medications: calcium gluc 2 gm IV x1, Lasix 40 mg IV x1 and 80 mg IV x1, heparin gtt, D5 50 ml/hr, insulin gtt Bed Type: ICU documented in this encounter Plan of Treatment Pending Results Name Type Priority Associated Diagnoses Date /Time Mycobacteria Culture (includes acid fast smear) Microbiology Routine 10/18/2024 5:55 PM EST Scheduled Orders Name Type Priority Associated Diagnoses Orde r Schedule ECG 12 lead (STAT) ECG STAT Once f or 1 Occurrences starting 10/25/2024 until 10/25/2024 documented as of this encounter Procedures Procedure Name Priority Date/Time Associated Diagnosis Comments POCT GLUCOSE, FINGERSTICK Routine 11/01/2024 12:04 PM EST POCT GLUCOSE, FINGERSTICK Routine 11/01/2024 8:21 AM EST COMPLETE BLOOD COUNT, WITHOUT DIFFERENTIAL Routine 11/01/2024 6:20 AM EST PHOSPHORUS Routine 11/01/2024 6:20 AM EST MAGNESIUM Routine 11/01/2024 6:20 AM EST BASIC METABOLIC PANEL Routine 11/01/2024 6:20 AM EST POCT GLUCOSE, FINGERSTICK Routine 11/01/2024 1:58 AM EST POCT GLUCOSE, FINGERSTICK Routine 10/31/2024 9:20 PM EST CARDIAC CATHETERIZATION Routine 10/31/19 6:34 PM EST POCT GLUCOSE, FINGERSTICK Routine 10/31/2024 4:45 PM EST HEPARIN ASSAY (ANTI-XA) Routine 10/31/19 3:28 PM EST POCT GLUCOSE, FINGERSTICK Routine 10/31/2024 12:04 PM EST POCT GLUCOSE, FINGERSTICK Routine 10/31/2024 8:13 AM EST HIGH SENSITIVITY TROPONIN T Routine 10/31/2024 7:16 AM EST HEPARIN ASSAY (ANTI-XA) Routine 10/31/19 7:16 AM EST COMPLETE BLOOD COUNT, WITHOUT DIFFERENTIAL Routine 10/31/2024 7:16 AM EST TSH, HIGHLY SENSITIVE Routine 10/31/2024 7:16 AM EST PHOSPHORUS Routine 10/31/2024 7:16 AM EST MAGNESIUM Routine 10/31/2024 7:16 AM EST BASIC METABOLIC PANEL Routine 10/31/2024 7:16 AM EST POCT GLUCOSE, FINGERSTICK Routine 10/31/2024 2:18 AM EST POCT GLUCOSE, FINGERSTICK Routine 10/30/2024 9:03 PM EST POCT GLUCOSE, FINGERSTICK Routine 10/30/2024 4:24 PM EST POCT GLUCOSE, FINGERSTICK Routine 10/30/2024 2:00 PM EST POCT GLUCOSE, FINGERSTICK Routine 10/30/2024 12:35 PM EST POCT GLUCOSE, FINGERSTICK Routine 10/30/2024 8:43 AM EST HEPARIN ASSAY (ANTI-XA) Routine 10/30/19 7:09 AM EST COMPLETE BLOOD COUNT, WITHOUT DIFFERENTIAL Routine 10/30/2024 7:09 AM EST PHOSPHORUS Routine 10/30/2024 7:09 AM EST MAGNESIUM Routine 10/30/2024 7:09 AM EST BASIC METABOLIC PANEL Routine 10/30/2024 7:09 AM EST POCT GLUCOSE, FINGERSTICK Routine 10/30/2024 6:47 AM EST POCT GLUCOSE, FINGERSTICK Routine 10/30/2024 2:16 AM EST POCT GLUCOSE, FINGERSTICK Routine 10/29/2024 9:16 PM EST POCT GLUCOSE, FINGERSTICK Routine 10/29/2024 4:32 PM EST POCT GLUCOSE, FINGERSTICK Routine 10/29/2024 12:54 PM EST POCT GLUCOSE, FINGERSTICK Routine 10/29/2024 7:51 AM EST PROBNP, N-TERMINAL Routine 10/29/2024 7: 20 AM EST HEPARIN ASSAY (ANTI-XA) Routine 10/29/19 7:20 AM EST COMPLETE BLOOD COUNT, WITHOUT DIFFERENTIAL Routine 10/29/2024 7:20 AM EST PHOSPHORUS Routine 10/29/2024 7:20 AM EST MAGNESIUM Routine 10/29/2024 7:20 AM EST BASIC METABOLIC PANEL Routine 10/29/2024 7:20 AM EST POCT GLUCOSE, FINGERSTICK Routine 10/29/2024 2:07 AM EST POCT GLUCOSE, FINGERSTICK Routine 10/28/2024 9:30 PM EST POCT GLUCOSE, FINGERSTICK Routine 10/28/2024 4:59 PM EST PHOSPHORUS Routine 10/28/2024 3:38 PM EST MAGNESIUM Routine 10/28/2024 3:38 PM EST BASIC METABOLIC PANEL Routine 10/28/2024 3:38 PM EST POCT GLUCOSE, FINGERSTICK Routine 10/28/2024 12:32 PM EST POCT GLUCOSE, FINGERSTICK Routine 10/28/2024 8:28 AM EST HEPARIN ASSAY (ANTI-XA) Routine 10/28/19 7:00 AM EST COMPLETE BLOOD COUNT, WITHOUT DIFFERENTIAL Routine 10/28/2024 7:00 AM EST PHOSPHORUS Routine 10/28/2024 7:00 AM EST MAGNESIUM Routine 10/28/2024 7:00 AM EST BASIC METABOLIC PANEL Routine 10/28/2024 7:00 AM EST POCT GLUCOSE, FINGERSTICK Routine 10/28/2024 4:20 AM EST POCT GLUCOSE, FINGERSTICK Routine 10/28/2024 12:29 AM EST POCT GLUCOSE, FINGERSTICK Routine 10/27/2024 8:06 PM EST POCT GLUCOSE, FINGERSTICK Routine 10/27/2024 4:20 PM EST BASIC METABOLIC PANEL Routine 10/27/2024 3:26 PM EST POCT GLUCOSE, FINGERSTICK Routine 10/27/2024 1:13 PM EST POCT GLUCOSE, FINGERSTICK Routine 10/27/2024 8:58 AM EST ECG 12-LEAD STAT 10/27/2024 7:41 AM EST HEPARIN ASSAY (ANTI-XA) Routine 10/27/19 7:29 AM EST COMPLETE BLOOD COUNT, WITHOUT DIFFERENTIAL Routine 10/27/2024 7:29 AM EST PHOSPHORUS Routine 10/27/2024 7:29 AM EST MAGNESIUM Routine 10/27/2024 7:29 AM EST BASIC METABOLIC PANEL Routine 10/27/2024 7:29 AM EST POCT GLUCOSE, FINGERSTICK Routine 10/27/2024 4:02 AM EST POCT GLUCOSE, FINGERSTICK Routine 10/27/2024 1:20 AM EST POCT GLUCOSE, FINGERSTICK Routine 10/27/2024 12:29 AM EST POCT GLUCOSE, FINGERSTICK Routine 10/26/2024 8:11 PM EST POCT GLUCOSE, FINGERSTICK Routine 10/26/2024 6:09 PM EST POCT GLUCOSE, FINGERSTICK Routine 10/26/2024 11:58 AM EST HIGH SENSITIVITY TROPONIN T CARD 10/26/2024 10:49 AM EST POCT GLUCOSE, FINGERSTICK Routine 10/26/2024 8:48 AM EST HEPARIN ASSAY (ANTI-XA) Routine 10/26/19 6:18 AM EST COMPLETE BLOOD COUNT, WITHOUT DIFFERENTIAL Routine 10/26/2024 6:18 AM EST PHOSPHORUS Routine 10/26/2024 6:18 AM EST MAGNESIUM Routine 10/26/2024 6:18 AM EST BASIC METABOLIC PANEL Routine 10/26/2024 6:18 AM EST POCT GLUCOSE, FINGERSTICK Routine 10/26/2024 3:58 AM EST POCT GLUCOSE, FINGERSTICK Routine 10/25/2024 11:49 PM EST HEPARIN ASSAY (ANTI-XA) Routine 10/25/19 11:35 PM EST POCT GLUCOSE, FINGERSTICK Routine 10/25/2024 8:20 PM EST POCT GLUCOSE, FINGERSTICK Routine 10/25/2024 5:39 PM EST HIGH SENSITIVITY TROPONIN T CARD 10/25/2024 5:03 PM EST HEPARIN ASSAY (ANTI-XA) Routine 10/25/19 5:03 PM EST HIGH SENSITIVITY TROPONIN T CARD 10/25/2024 3:38 PM EST HIGH SENSITIVITY TROPONIN T Routine 10/25/2024 12:47 PM EST HEPARIN ASSAY (ANTI-XA) Routine 10/25/19 12:47 PM EST POCT GLUCOSE, FINGERSTICK Routine 10/25/2024 12:33 PM EST XR CHEST 1 VIEW-PORTABLE STAT 10/25/2024 11:48 AM EST ECG 12-LEAD Routine 10/25/2024 10:44 AM EST HIGH SENSITIVITY TROPONIN T Routine 10/25/2024 10:25 AM EST POCT GLUCOSE, FINGERSTICK Routine 10/25/2024 9:20 AM EST HIGH SENSITIVITY TROPONIN T Routine 10/25/2024 8:27 AM EST COMPLETE BLOOD COUNT, WITHOUT DIFFERENTIAL Routine 10/25/2024 8:27 AM EST PHOSPHORUS Routine 10/25/2024 8:27 AM EST MAGNESIUM Routine 10/25/2024 8:27 AM EST CREATINE KINASE (CK) Routine 10/25/2024 8:27 AM EST BASIC METABOLIC PANEL Routine 10/25/2024 8:27 AM EST HEPARIN ASSAY (ANTI-XA) Routine 10/25/19 5:21 AM EST POCT GLUCOSE, FINGERSTICK Routine 10/25/2024 5:15 AM EST POCT GLUCOSE, FINGERSTICK Routine 10/25/2024 1:03 AM EST HEPARIN ASSAY (ANTI-XA) Routine 10/24/19 9:57 PM EST POCT GLUCOSE, FINGERSTICK Routine 10/24/2024 8:23 PM EST HEPARIN ASSAY (ANTI-XA) Routine 10/24/19 4:14 PM EST POCT GLUCOSE, FINGERSTICK Routine 10/24/2024 4:07 PM EST POCT GLUCOSE, FINGERSTICK Routine 10/24/2024 11:13 AM EST XR CHEST 1 VIEW-PORTABLE Routine 10/24/2024 10:12 AM EST POCT GLUCOSE, FINGERSTICK Routine 10/24/2024 8:39 AM EST B-HYDROXYBUTYRATE Routine 10/24/2024 7:1 1 AM EST HEPARIN ASSAY (ANTI-XA) Routine 10/24/19 7:11 AM EST COMPLETE BLOOD COUNT, WITHOUT DIFFERENTIAL Routine 10/24/2024 7:11 AM EST PHOSPHORUS Routine 10/24/2024 7:11 AM EST MAGNESIUM Routine 10/24/2024 7:11 AM EST BASIC METABOLIC PANEL Routine 10/24/2024 7:11 AM EST PHOSPHORUS Routine 10/24/2024 3:01 AM EST MAGNESIUM Routine 10/24/2024 3:01 AM EST BASIC METABOLIC PANEL Routine 10/24/2024 3:01 AM EST POCT GLUCOSE, FINGERSTICK Routine 10/24/2024 1:53 AM EST HEPARIN ASSAY (ANTI-XA) Routine 10/23/19 10:13 PM EST POCT GLUCOSE, FINGERSTICK Routine 10/23/2024 9:02 PM EST POCT GLUCOSE, FINGERSTICK Routine 10/23/2024 6:22 PM EST PHOSPHORUS Routine 10/23/2024 6:02 PM EST MAGNESIUM Routine 10/23/2024 6:02 PM EST BASIC METABOLIC PANEL Routine 10/23/2024 6:02 PM EST ECG 12-LEAD STAT 10/23/2024 5:43 PM EST HEPARIN ASSAY (ANTI-XA) Routine 10/23/19 3:53 PM EST POCT GLUCOSE, FINGERSTICK Routine 10/23/2024 12:59 PM EST PTH, INTACT Routine 10/23/2024 10:31 AM EST CALCIUM, IONIZED Routine 10/23/2024 10:3 1 AM EST CALCIUM, TOTAL Routine 10/23/2024 10:31 AM EST ALBUMIN Routine 10/23/2024 10:31 AM EST POCT GLUCOSE, FINGERSTICK Routine 10/23/2024 8:36 AM EST HEPARIN ASSAY (ANTI-XA) Routine 10/23/19 6:05 AM EST COMPLETE BLOOD COUNT, WITHOUT DIFFERENTIAL Routine 10/23/2024 6:05 AM EST PHOSPHORUS Routine 10/23/2024 6:05 AM EST MAGNESIUM Routine 10/23/2024 6:05 AM EST LIPID PANEL Routine 10/23/2024 6:05 AM EST BASIC METABOLIC PANEL Routine 10/23/2024 6:05 AM EST POCT GLUCOSE, FINGERSTICK Routine 10/23/2024 1:59 AM EST POCT GLUCOSE, FINGERSTICK Routine 10/22/2024 8:40 PM EST POCT GLUCOSE, FINGERSTICK Routine 10/22/2024 6:12 PM EST POCT GLUCOSE, FINGERSTICK Routine 10/22/2024 1:10 PM EST POCT GLUCOSE, FINGERSTICK Routine 10/22/2024 9:10 AM EST HEPARIN ASSAY (ANTI-XA) Routine 10/22/19 8:12 AM EST COMPLETE BLOOD COUNT, WITHOUT DIFFERENTIAL Routine 10/22/2024 8:12 AM EST MAGNESIUM Routine 10/22/2024 8:12 AM EST BASIC METABOLIC PANEL Routine 10/22/2024 8:12 AM EST POCT GLUCOSE, FINGERSTICK Routine 10/22/2024 1:23 AM EST ECG 12-LEAD Routine 10/21/2024 9:45 PM EST POCT GLUCOSE, FINGERSTICK Routine 10/21/2024 9:04 PM EST POCT GLUCOSE, FINGERSTICK Routine 10/21/2024 6:23 PM EST POCT GLUCOSE, FINGERSTICK Routine 10/21/2024 1:38 PM EST POCT GLUCOSE, FINGERSTICK Routine 10/21/2024 12:24 PM EST HEPARIN ASSAY (ANTI-XA) Routine 10/21/19 9:11 AM EST POCT GLUCOSE, FINGERSTICK Routine 10/21/2024 8:35 AM EST POCT GLUCOSE, FINGERSTICK Routine 10/21/2024 8:03 AM EST HEPARIN ASSAY (ANTI-XA) Routine 10/21/19 3:09 AM EST COMPLETE BLOOD COUNT, WITHOUT DIFFERENTIAL Routine 10/21/2024 3:09 AM EST BASIC METABOLIC PANEL Routine 10/21/2024 3:09 AM EST POCT GLUCOSE, FINGERSTICK Routine 10/21/2024 2:23 AM EST POCT GLUCOSE, FINGERSTICK Routine 10/20/2024 8:47 PM EST HEPARIN ASSAY (ANTI-XA) Routine 10/20/19 8:34 PM EST POCT GLUCOSE, FINGERSTICK Routine 10/20/2024 5:51 PM EST POCT GLUCOSE, FINGERSTICK Routine 10/20/2024 3:47 PM EST POCT GLUCOSE, FINGERSTICK Routine 10/20/2024 11:43 AM EST BLOOD GAS, VENOUS Routine 10/20/2024 10: 39 AM EST POCT GLUCOSE, FINGERSTICK Routine 10/20/2024 10:37 AM EST LACTIC ACID, PLASMA Routine 10/20/2024 1 0:00 AM EST POCT GLUCOSE, FINGERSTICK Routine 10/20/2024 7:48 AM EST POCT GLUCOSE, FINGERSTICK Routine 10/20/2024 5:43 AM EST POCT GLUCOSE, FINGERSTICK Routine 10/20/2024 2:15 AM EST COMPLETE BLOOD COUNT, WITH DIFFERENTIAL STAT 10/19/2024 11:59 PM EST HEPARIN ASSAY (ANTI-XA) Routine 10/19/19 11:59 PM EST PHOSPHORUS Routine 10/19/2024 11:59 PM EST MAGNESIUM Routine 10/19/2024 11:59 PM EST BASIC METABOLIC PANEL Routine 10/19/2024 11:59 PM EST POCT GLUCOSE, FINGERSTICK Routine 10/19/2024 8:00 PM EST POCT GLUCOSE, FINGERSTICK Routine 10/19/2024 6:53 PM EST POCT GLUCOSE, FINGERSTICK Routine 10/19/2024 5:42 PM EST POCT GLUCOSE, FINGERSTICK Routine 10/19/2024 4:33 PM EST BASIC METABOLIC PANEL Routine 10/19/2024 3:47 PM EST HEMOGLOBIN AND HEMATOCRIT Routine 10/19/2024 2:25 PM EST HEPARIN ASSAY (ANTI-XA) Routine 10/19/19 2:25 PM EST BLOOD GAS, VENOUS Routine 10/19/2024 2:2 5 PM EST POCT GLUCOSE, FINGERSTICK Routine 10/19/2024 1:52 PM EST POCT GLUCOSE, FINGERSTICK Routine 10/19/2024 11:40 AM EST HIGH SENSITIVITY TROPONIN T Routine 10/19/2024 11:34 AM EST B-HYDROXYBUTYRATE Routine 10/19/2024 11: 34 AM EST BASIC METABOLIC PANEL Routine 10/19/2024 11:34 AM EST BLOOD GAS, VENOUS Routine 10/19/2024 10: 36 AM EST POCT GLUCOSE, FINGERSTICK Routine 10/19/2024 10:34 AM EST POCT GLUCOSE, FINGERSTICK Routine 10/19/2024 9:08 AM EST POCT GLUCOSE, FINGERSTICK Routine 10/19/2024 7:58 AM EST HEPARIN ASSAY (ANTI-XA) Routine 10/19/19 7:44 AM EST BASIC METABOLIC PANEL Routine 10/19/2024 7:44 AM EST POCT GLUCOSE, FINGERSTICK Routine 10/19/2024 6:38 AM EST POCT GLUCOSE, FINGERSTICK Routine 10/19/2024 5:25 AM EST HIGH SENSITIVITY TROPONIN T CARD 10/19/2024 5:15 AM EST BASIC METABOLIC PANEL Routine 10/19/2024 4:15 AM EST POCT GLUCOSE, FINGERSTICK Routine 10/19/2024 4:14 AM EST POCT GLUCOSE, FINGERSTICK Routine 10/19/2024 2:45 AM EST HEPARIN ASSAY (ANTI-XA) Routine 10/19/19 1:54 AM EST POCT GLUCOSE, FINGERSTICK Routine 10/19/2024 1:35 AM EST HIGH SENSITIVITY TROPONIN T CARD 10/19/2024 1:20 AM EST HEMOGLOBIN A1C WITH ESTIMATED AVERAGE GLUCOSE Routine 10/19/2024 1:20 AM EST COMPLETE BLOOD COUNT, WITHOUT DIFFERENTIAL Routine 10/19/2024 1:20 AM EST PHOSPHORUS Routine 10/19/2024 1:20 AM EST MAGNESIUM Routine 10/19/2024 1:20 AM EST POCT GLUCOSE, FINGERSTICK Routine 10/19/2024 12:16 AM EST ECG 12-LEAD Routine 10/19/2024 12:02 AM EST POCT GLUCOSE, FINGERSTICK Routine 10/18/2024 11:22 PM EST BLOOD GAS, VENOUS STAT 10/18/2024 11: 11 PM EST BASIC METABOLIC PANEL Routine 10/18/2024 11:11 PM EST BASIC METABOLIC PANEL Routine 10/18/2024 10:15 PM EST LACTIC ACID, PLASMA Routine 10/18/2024 1 0:13 PM EST POCT GLUCOSE, FINGERSTICK Routine 10/18/2024 10:06 PM EST XR CHEST 1 VIEW-PORTABLE Routine 10/18/2024 9:36 PM EST POCT GLUCOSE, FINGERSTICK Routine 10/18/2024 9:12 PM EST POCT GLUCOSE, FINGERSTICK Routine 10/18/2024 8:16 PM EST BLOOD GAS, VENOUS STAT 10/18/2024 7:1 4 PM EST BASIC METABOLIC PANEL STAT 10/18/2024 7:14 PM EST POCT GLUCOSE, FINGERSTICK Routine 10/18/2024 7:13 PM EST US GUIDED BEDSIDE THORACENTESIS-BILATERAL Routine 10/18/2024 6:10 PM EST POCT GLUCOSE, FINGERSTICK Routine 10/18/2024 6:07 PM EST BODY FLUID CULTURE (AEROBIC, ANAEROBIC AND GRAM STAIN) Routine 10/18/2024 5:55 PM EST MYCOBACTERIA CULTURE (INCLUDES ACID FAST SMEAR) Routine 10/18/2024 5:55 PM EST FUNGAL CULTURE, OTHER THAN BLOOD Routine 10/18/2024 5:55 PM EST CELL COUNT REFLEX DIFFERENTIAL, BODY FLUID Routine 10/18/2024 5:50 PM EST PROTEIN, BODY FLUID Routine 10/18/2024 5 :50 PM EST GLUCOSE, BODY FLUID Routine 10/18/2024 5 :50 PM EST PH, BODY FLUID Routine 10/18/2024 5:50 PM EST BODY FLUID CULTURE (AEROBIC, ANAEROBIC AND GRAM STAIN) STAT 10/18/2024 5:40 PM EST CELL COUNT REFLEX DIFFERENTIAL, BODY FLUID STAT 10/18/2024 5:39 PM EST PROTEIN, BODY FLUID STAT 10/18/2024 5 :39 PM EST LACTATE DEHYDROGENASE (LDH), BODY FLUID STAT 10/18/2024 5:39 PM EST GLUCOSE, BODY FLUID STAT 10/18/2024 5 :39 PM EST PH, BODY FLUID STAT 10/18/2024 5:39 PM EST B-HYDROXYBUTYRATE Routine 10/18/2024 5:0 4 PM EST HEPARIN ASSAY (ANTI-XA) STAT 10/18/19 5:04 PM EST POCT GLUCOSE, FINGERSTICK Routine 10/18/2024 5:04 PM EST BLOOD GAS, VENOUS STAT 10/18/2024 5:0 4 PM EST BASIC METABOLIC PANEL STAT 10/18/2024 5:04 PM EST XR CHEST 1 VIEW-PORTABLE STAT 10/18/2024 4:14 PM EST POCT GLUCOSE, FINGERSTICK Routine 10/18/2024 3:51 PM EST POCT GLUCOSE, FINGERSTICK Routine 10/18/2024 2:44 PM EST POCT GLUCOSE, FINGERSTICK Routine 10/18/2024 1:44 PM EST POCT GLUCOSE, FINGERSTICK Routine 10/18/2024 1:24 PM EST POCT GLUCOSE, FINGERSTICK Routine 10/18/2024 12:19 PM EST ECHOCARDIOGRAM (TTE) COMPREHENSIVE (CONTRAST PRN) Routine 10/18/2024 12:14 PM EST BASIC METABOLIC PANEL STAT 10/18/2024 11:25 AM EST POCT GLUCOSE, FINGERSTICK Routine 10/18/2024 11:19 AM EST POCT GLUCOSE, FINGERSTICK Routine 10/18/2024 10:16 AM EST HEPARIN ASSAY (ANTI-XA) STAT 10/18/19 9:57 AM EST BASIC METABOLIC PANEL STAT 10/18/2024 9:57 AM EST POCT GLUCOSE, FINGERSTICK Routine 10/18/2024 9:39 AM EST POCT GLUCOSE, FINGERSTICK Routine 10/18/2024 8:34 AM EST POCT GLUCOSE, FINGERSTICK Routine 10/18/2024 7:31 AM EST HIGH SENSITIVITY TROPONIN T CARD 10/18/2024 7:25 AM EST BASIC METABOLIC PANEL Routine 10/18/2024 7:25 AM EST POCT GLUCOSE, FINGERSTICK Routine 10/18/2024 6:28 AM EST XR CHEST 1 VIEW-PORTABLE STAT 10/18/2024 5:37 AM EST ECG 12-LEAD STAT 10/18/2024 5:28 AM EST POCT GLUCOSE, FINGERSTICK Routine 10/18/2024 5:24 AM EST HIGH SENSITIVITY TROPONIN T CARD 10/18/2024 5:16 AM EST B-HYDROXYBUTYRATE STAT 10/18/2024 5:1 6 AM EST PROBNP, N-TERMINAL STAT 10/18/2024 5: 16 AM EST COMPLETE BLOOD COUNT, WITH DIFFERENTIAL STAT 10/18/2024 5:16 AM EST PARTIAL THROMBOPLASTIN TIME (PTT) STAT 10/18/2024 5:16 AM EST PROTIME-INR STAT 10/18/2024 5:16 AM EST HEPARIN ASSAY (ANTI-XA) STAT 10/18/19 25 5:16 AM EST OSMOLALITY STAT 10/18/2024 5:16 AM EST MAGNESIUM STAT 10/18/2024 5:16 AM EST BLOOD GAS, VENOUS STAT 10/18/2024 5:1 6 AM EST BASIC METABOLIC PANEL STAT 10/18/2024 5:16 AM EST documented in this encounter Results * (ABNORMAL) POCT Glucose, Fingerstick (11/01/2024 12:04 PM EST) POC Glucose 189(H) 65 - 99 mg/dL 11/01/2024 12:05 PM EST Blood specimen / Unknown 11/01/2024 12:04 PM EST 11/01/2024 12:05 PM EST Fuad Winter MD POINT OF CARE TEST ORDERABLES Performing Organization Address [facility] Phone Number HOSPITAL LAB See Below * (ABNORMAL) POCT Glucose, Fingerstick (11/01/2024 8:21 AM EST) POC Glucose 111(H) 65 - 99 mg/dL 11/01/2024 11:56 AM EST Blood specimen / Unknown 11/01/2024 8:21 AM EST 11/01/2024 11:56 AM EST Fuad Winter MD POINT OF CARE TEST ORDERABLES Performing Organization Address [facility] Number [facility] LAB See Below * (ABNORMAL) Phosphorus (Early AM) (11/01/2024 6:20 AM EST) Phosphorus 4.7(H) 2.7 - 4.5 mg/dL 11/01/2024 7:58 AM EST [facility] Blood (Plasma/Serum) 11/01/2024 6:20 AM EST 11/01/2024 6:57 AM EST Jonna Donis PA-C LAB BLOOD ORDERABL ES Performing Organization Address [facility] Number [address] [address], [address] [address] * MAGNESIUM (11/01/2024 6:20 AM EST) Magnesium 1.6 1.6 - 2.7 mg/dL 11/01/2024 7:58 AM EST [facility] Blood (Plasma/Serum) 11/01/2024 6:20 AM EST 11/01/2024 6:57 AM EST Jonna Donis PA-C LAB BLOOD ORDERABL ES Performing Organization Address [facility] [place] [address], [place] [address] * (ABNORMAL) COMPLETE BLOOD COUNT, WITHOUT DIFFERENTIAL (11/01/2024 6:20 AM EST) [facility] White Blood Cell Count 9.1 4.0 - 11.0 Thou/uL 11/01/2024 7:10 AM [facility] Platelet Count 261 150 - 450 Thou/uL 11/01/2024 7:10 AM [facility] Hemoglobin 9.2(L) 13.0 - 17.7 g/dL 11/01/2024 7:10 AM [facility] Hematocrit 29.7(L) 39.0 - 54.0 % 11/01/2024 7:10 AM [facility] Red Blood Cell Count 3.00(L) 4.50 - 6.20 Mil/uL 11/01/2024 7:10 AM [facility] MCV 99 80 - 100 fL 11/01/2024 7:10 AM [facility] MCH 30.7 27.0 - 31.0 pg 11/01/2024 7:10 AM [facility] MCHC 31.0 30.0 - 36.0 g/dL 11/01/2024 7:10 AM [facility] RDW 16.2(H) 11.5 - 14.5 % 11/01/2024 7:10 AM [facility] MPV 11.4 7.5 - 12.5 fL 11/01/2024 7:10 AM [facility] Blood Blood specimen / Unknown 11/01/2024 6:20 AM EST 11/01/2024 6:57 AM EST Jonna Donis PA-C [place] [address], [place] [address] * (ABNORMAL) BASIC METABOLIC PANEL (11/01/2024 6:20 AM EST) [facility] Glucose 92 65 - 99 mg/dL 11/01/2024 7:58 AM [facility] Comment:Fasting: <100 mg/dL, Non-Fasting: <200 mg/dL (ADA 2004) Blood Urea Nitrogen (BUN) 41(H) 8 - 21 mg/dL 11/01/2024 7:58 AM [facility] Creatinine 4.5(H) 0.5 - 1.3 mg/dL 11/01/2024 7:58 AM [facility] eGFR 13(L) >59 11/01/2024 7:58 AM [facility] Comment:CKD-EPI (2020) in mL /min/1.73 sq meters. Sodium 140 136 - 145 mmol/L 11/01/2024 7:58 AM [facility] Potassium 4.8 3.4 - 5.3 mmol/L 11/01/2024 7:58 AM [facility] Chloride 104 98 - 107 mmol/L 11/01/2024 7:58 AM [facility] CO2 22 22 - 33 mmol/L 11/01/2024 7:58 AM [facility] Anion Gap 14 7 - 17 11/01/2024 7:58 AM [facility] Calcium 9.3 8.7 - 10.5 mg/dL 11/01/2024 7:58 AM [facility] BUN/Creatinine Ratio 9(L) 10.0 - 25.0 Ratio 11/01/2024 7:58 AM [facility] Blood (Plasma/Serum) 11/01/2024 6:20 AM EST 11/01/2024 6:57 AM EST Jonna Donis PA-C [place] [address], [place] [address] * (ABNORMAL) POCT Glucose, Fingerstick (11/01/2024 1:58 AM EST) POC Glucose 122(H) 65 - 99 mg/dL 11/01/2024 1:59 AM EST Blood specimen / Unknown 11/01/2024 1:58 AM EST 11/01/2024 1:59 AM EST Fuad Winter MD POINT OF CARE TEST ORDERABLES HOSPITAL LAB See Below * (ABNORMAL) POCT Glucose, Fingerstick (10/31/2024 9:20 PM EST) POC Glucose 128(H) 65 - 99 mg/dL 10/31/2024 9:25 PM EST Blood specimen / Unknown 10/31/2024 9:20 PM EST 10/31/2024 9:25 PM EST Fuad Winter MD POINT OF CARE TEST ORDERABLES HOSPITAL LAB See Below * CC CORONARY ANGIO W/LV (10/31/2024 6:34 PM EST) Anatomical Region Laterality Modality Radiographic Ekily ging Narrative 10/31/2024 6:57 PM EST Table formatting from the original result was not included. Images from the original result were not included. [facility] [place] at [facility] - Cardiac Catheterization Laboratory PATIENT DEMOGRAPHIC INFORMATION Name: Neymar Wilder : 1945 79 y.o. Sex: male Gender: male Procedure Date: 10/31/2024 PROCEDURE DETAILS Artificial Flowers Starcher: Calixto Ureña MD Fellow: None Linux Admin Engineer(s): none Indications for Procedure: ACS, drop in EF Referring Physician: Neymar Mcfarland Referring Business Process Modeler: PCP: Diaz Akers MD Procedure(s): Procedures: ??* CORONARY ANGIO W/LV CONCLUSIONS/RECOMMENDATIONS Moderate proximal and mid LAD calcified focal stenosis. Normal LVEDP Severe stenosis of nondominant right coronary artery. Medically manage coronary artery disease in light of moderate LAD disease and CKD stage IV IV hydration as per protocol. Return to medical floor PROCEDURE FINDINGS Findings ?? Diagnostic ??Dominance: Right Left Main 0% Left main coronary is a large-caliber vessel, arises from left coronary cusp, it gives rise to left circumflex coronary artery and left anterior descending artery. ??It is free of angiographically significant coronary artery disease. Left Anterior Descending Proximal 50%, Mid 50%, Distal 0% Left descending artery is a large-caliber vessel, arises from left main coronary, it gives rise to first diagonal branch which is moderate caliber vessel followed by 2 small caliber diagonal branches both of which have ostial 70% stenosis. ??Proximal LAD has focal 50% stenosis and mid LAD after the origin of second diagonal branch has focal calcified 50% stenosis. ??There is NORRIS-3 flow in the LAD. Left Circumflex Proximal 30%, Mid 0%, Distal 10% Left circumflex coronary artery is a large-caliber vessel, it is a dominant vessel, it gives rise from left main coronary artery, it gives rise to moderate caliber first obtuse marginal branch that has ostial 60% stenosis followed by small caliber second obtuse marginal branch and then continues to give rise to posterolateral posterior descending branches. ?? Left circumflex system is free of angiographically significant coronary artery disease. Right Coronary Artery Proximal 80% focal, mid 80% focal. Right coronary artery is a small caliber nondominant vessel, it has proximal mid focal severe stenosis with NORRIS-3 flow. Pressures LV 110 mmHg/0 mmHg 1 mmHg AO 112 mmHg/44 mmHg 70 mmHg CLINICAL HISTORY Patient is a 79-year-old male with past medical Struve coronary artery disease status post IA in February 2024, heart failure with reduced EF, CKD stage V with baseline creatinine of 4.3 DKA who presented with a sore throat and URI subsequently was found to have COVID-19 illness he also has history of chronic anemia, hypertension, moderate mitral regurgitation, hypocalcemia, secondary hyperparathyroidism was transferred from outside hospital in light of DKA and COVID-19 pneumonia was also found to have NSTEMI with high sensitive troponin more than 4000 and acute pulmonary edema patient was found to have newly reduced ejection fraction from baseline of 55 to 60% in 2021 to 28% now patient also underwent bilateral thoracocentesis now presents for cardiac catheterization in light of new drop in ejection fraction and elevated troponin. PROCEDURE Access Site: Right radial artery Sheath Size: 6F Catheters used: JR4, JL3.5 Comments: N/A Hemostasis Method: Compressive band Complications: None Anesthesia: The procedure was performed under moderate conscious sedation by an independent trained observer (RN) and supervised by the under signed attending MD. See meds list. Sedation Time: Contrast Used: Med Administrations and Associated Flowsheet Values (last 24 hours) ?? Date/Time Action Medication Dose 10/31/24 1831 Given iohexol (OMNIPAQUE) 350 mg/mL injection 30 mL Estimated Blood Loss: 5 mL ?? Verbal Orders and Supervisory Attestation: As the attending physician, I verify I was present throughout the entire procedure and provided physician orders as documented in the specialty electronic documentation system. Furthermore I directly supervised all non physicians providers who assisted me during the procedure and I accept delegation of supervisory responsibility for all post procedure patient care activity related to this patient that I request from a [facility] PA/AMUSEMENT PARK WORKER/fellow/staff member. Calixto Ureña MD [facility] [place] 10/31/2024 ??6:57 PM Coronary Findings Diagnostic Dominance: Right Left Main: 0% Left main coronary is a large-caliber vessel, arises from left coronary cusp, it gives rise to left circumflex coronary artery and left anterior descending artery. It is free of angiographically significant coronary artery disease. Left Anterior Descending: Proximal 50%, Mid 50%, Distal 0% Left descending artery is a large-caliber vessel, arises from left main coronary, it gives rise to first diagonal branch which is moderate caliber vessel followed by 2 small caliber diagonal branches both of which have ostial 70% stenosis. Proximal LAD has focal 50% stenosis and mid LAD after the origin of second diagonal branch has focal calcified 50% stenosis. There is NORRIS-3 flow in the LAD. Left Circumflex: Proximal 30%, Mid 0%, Distal 10% Left circumflex coronary artery is a large-caliber vessel, it is a dominant vessel, it gives rise from left main coronary artery, it gives rise to moderate caliber first obtuse marginal branch that has ostial 60% stenosis followed by small caliber second obtuse marginal branch and then continues to give rise to posterolateral posterior descending branches. Left circumflex system is free of angiographically significant coronary artery disease. Right Coronary Artery: Proximal 80% focal, mid 80% focal. Right coronary artery is a small caliber nondominant vessel, it has proximal mid focal severe stenosis with NORRIS-3 flow. Intervention No interventions have been documented. Cardiac Protocol CAD and heart failure Calixto Ureña MD CV CARDIAC CATH ARIEL BRADY * POCT Glucose, Fingerstick (10/31/2024 4:45 PM EST) [facility] POC Glucose 74 65 - 99 mg/dL 10/31/2024 4:46 PM EST Blood specimen / Unknown 10/31/2024 4:45 PM EST 10/31/2024 4:46 PM EST Fuad Winter MD POINT OF CARE TEST ORDERABLES HOSPITAL LAB See Below * Heparin Assay (Anti Xa) (10/31/2024 3:28 PM EST) [facility] Anti Xa 0.36 IU/mL 10/31/2024 4:07 PM EST [facility] Comment: (NOTE) Heparin Thromboembolic/Standard/Full Dose Protocol: Therapeutic Range: ? Age 18+: ? 0.30 - 0.70 IU/mL ? Age 0 - 17: ?? 0.35 - 0.70 IU/mL ? Heparin Cardiac/Low Dose Protocol: ? Therapeutic Range: ? 0.30 - 0.50 IU/mL ? Low Molecular Weight Heparin: ? Therapeutic Range: ? Age 18+: ? 0.50 - 1.50 IU/mL ? Age 0 - 17: ?? 0.50 - 1.00 ??IU/mL ? Anticoagulant IV HEPARIN, UNFRACTIONATED 10/31/2024 9:19 AM EST Blood Plasma specimen / Unknown 10/31/2024 3:28 PM EST 10/31/2024 3:37 PM EST Osmar Valdez MD LAB BLOOD ORDERABLES Performing Organization Address [facility] [place] [address], [place] [address] * POCT Glucose, Fingerstick (10/31/2024 12:04 PM EST) POC Glucose 92 65 - 99 mg/dL 10/31/2024 12:21 PM EST Blood specimen / Unknown 10/31/2024 12:04 PM EST 10/31/2024 12:21 PM EST Fuad Winter MD POINT OF CARE TEST ORDERABLES Performing Organization Address [facility] Phone Number [facility] LAB See Below * POCT Glucose, Fingerstick (10/31/2024 8:13 AM EST) POC Glucose 84 65 - 99 mg/dL 10/31/2024 8:15 AM EST Blood specimen / Unknown 10/31/2024 8:13 AM EST 10/31/2024 8:15 AM EST Fuad Winter MD POINT OF CARE TEST ORDERABLES Performing Organization Address [facility] Phone Number [facility] LAB See Below * (ABNORMAL) High Sensitivity Troponin T (10/31/2024 7:16 AM EST) [facility] High Sensitivity Troponin T 396(HH) <23 ng/L 10/31/2024 9:15 AM [facility] Delta (Change) NO PREVIOUS RESULT <3 10/31/2024 9:15 AM EST [facility] Plasma/Serum 10/31/2024 7:16 AM EST 10/31/2024 7:47 AM EST Madhav Ryan MD LAB BLOOD ORDERABLES Performing Organization Address [facility] [place] [address], [place] [address] * TSH, HIGHLY SENSITIVE (10/31/2024 7:16 AM EST) [facility] TSH, Highly Sensitive 2.06 0.27 - 4.20 mIU/L 10/31/2024 9:15 AM EST [facility] Plasma/Serum 10/31/2024 7:16 AM EST 10/31/2024 7:47 AM EST Madhav Ryan MD LAB BLOOD ORDERABLES Performing Organization Address City/[facility] Co de Phone Number [facility] [address] [place] [address], [place] [address] * Heparin Assay (Anti Xa) (10/31/2024 7:16 AM EST) [facility] Anti Xa 0.54 IU/mL 10/31/2024 8:07 AM [facility] Comment: (NOTE) Heparin Thromboembolic/Standard/Full Dose Protocol: Therapeutic Range: ? Age 18+: ? 0.30 - 0.70 IU/mL ? Age 0 - 17: ?? 0.35 - 0.70 IU/mL ? Heparin Cardiac/Low Dose Protocol: ? Therapeutic Range: ? 0.30 - 0.50 IU/mL ? Low Molecular Weight Heparin: ? Therapeutic Range: ? Age 18+: ? 0.50 - 1.50 IU/mL ? Age 0 - 17: ?? 0.50 - 1.00 ??IU/mL ? Anticoagulant IV HEPARIN, UNFRACTIONATED 10/30/2024 11:00 PM EST Blood Plasma specimen / Unknown 10/31/2024 7:16 AM EST 10/31/2024 7:47 AM EST Neymar Mcfarland MD LAB BLOOD ORDERAB LES Performing Organization Address [facility]/State/[facility] [place] [address], [facility] [address] [place] [address] * (ABNORMAL) Phosphorus (Early AM) (10/31/2024 7:16 AM EST) Phosphorus 4.7(H) 2.7 - 4.5 mg/dL 10/31/2024 8:55 AM [facility] Blood (Plasma/Serum) 10/31/2024 7:16 AM EST 10/31/2024 7:47 AM EST Jonna Giraldo OrangeSlyce PA-C LAB BLOOD ORDERABL ES Performing Organization Address [facility] [place] [address], [place] [address] * MAGNESIUM (10/31/2024 7:16 AM EST) Pathologist [facility] [place] Magnesium 1.7 1.6 - 2.7 mg/dL 10/31/2024 8:55 AM [facility] Blood (Plasma/Serum) 10/31/2024 7:16 AM EST 10/31/2024 7:47 AM EST Jonna L OrangeSlyce PA-C LAB BLOOD ORDERABL ES Performing Organization Address [facility] [place] [address], [place] [address] * (ABNORMAL) COMPLETE BLOOD COUNT, WITHOUT DIFFERENTIAL (10/31/2024 7:16 AM EST) Pathologist [facility] [place] White Blood Cell Count 8.9 4.0 - 11.0 Thou/uL 10/31/2024 8:14 AM [facility] Platelet Count 289 150 - 450 Thou/uL 10/31/2024 8:14 AM [facility] Hemoglobin 9.6(L) 13.0 - 17.7 g/dL 10/31/2024 8:14 AM [facility] Hematocrit 31.4(L) 39.0 - 54.0 % 10/31/2024 8:14 AM [facility] Red Blood Cell Count 3.13(L) 4.50 - 6.20 Mil/uL 10/31/2024 8:14 AM [facility] MCV 100 80 - 100 fL 10/31/2024 8:14 AM [facility] MCH 30.7 27.0 - 31.0 pg 10/31/2024 8:14 AM [facility] MCHC 30.6 30.0 - 36.0 g/dL 10/31/2024 8:14 AM [facility] RDW 16.5(H) 11.5 - 14.5 % 10/31/2024 8:14 AM [facility] MPV 11.3 7.5 - 12.5 fL 10/31/2024 8:14 AM [facility] Blood Blood specimen / Unknown 10/31/2024 7:16 AM EST 10/31/2024 7:47 AM EST Jonna Donis PA-C [place] [address], [place] [address] * (ABNORMAL) BASIC METABOLIC PANEL (10/31/2024 7:16 AM EST) Glucose 82 65 - 99 mg/dL 10/31/2024 8:55 AM [facility] Comment:Fasting: <100 mg/dL, Non-Fasting: <200 mg/dL (ADA 2005) Blood Urea Nitrogen (BUN) 40(H) 8 - 21 mg/dL 10/31/2024 8:55 AM [facility] Creatinine 4.6(H) 0.5 - 1.3 mg/dL 10/31/2024 8:55 AM [facility] eGFR 12(L) >59 10/31/2024 8:55 AM [facility] Comment:CKD-EPI (2020) in mL /min/1.73 sq meters. Sodium 144 136 - 145 mmol/L 10/31/2024 8:55 AM [facility] Potassium 4.7 3.4 - 5.3 mmol/L 10/31/2024 8:55 AM [facility] Chloride 104 98 - 107 mmol/L 10/31/2024 8:55 AM [facility] CO2 24 22 - 33 mmol/L 10/31/2024 8:55 AM [facility] Anion Gap 16 7 - 17 10/31/2024 8:55 AM EST [facility] Calcium 8.8 8.7 - 10.5 mg/dL 10/31/2024 8:55 AM EST [facility] BUN/Creatinine Ratio 9(L) 10.0 - 25.0 Ratio 10/31/2024 8:55 AM EST [facility] Blood (Plasma/Serum) 10/31/2024 7:16 AM EST 10/31/2024 7:47 AM EST Jonna Donis PA-C LAB BLOOD ORDERABL ES Performing Organization Address [facility] [place] [address], [address] [address] * POCT Glucose, Fingerstick (10/31/2024 2:18 AM EST) POC Glucose 88 65 - 99 mg/dL 10/31/2024 2:20 AM EST Blood specimen / Unknown 10/31/2024 2:18 AM EST 10/31/2024 2:20 AM EST Fuad Winter MD POINT OF CARE TEST ORDERABLES Performing Organization Address City/[facility]/ZIP Co de Phone Number [facility] LAB See Below * (ABNORMAL) POCT Glucose, Fingerstick (10/30/2024 9:03 PM EST) POC Glucose 147(H) 65 - 99 mg/dL 10/30/2024 9:43 PM EST Blood specimen / Unknown 10/30/2024 9:03 PM EST 10/30/2024 9:43 PM EST Fuad Winter MD POINT OF CARE TEST ORDERABLES [facility] LAB See Below * (ABNORMAL) POCT Glucose, Fingerstick (10/30/2024 4:24 PM EST) POC Glucose 124(H) 65 - 99 mg/dL 10/30/2024 4:25 PM EST Blood specimen / Unknown 10/30/2024 4:24 PM EST 10/30/2024 4:25 PM EST Fuad Winter MD POINT OF CARE TEST ORDERABLES Performing Organization Address [facility] LAB See Below * POCT Glucose, Fingerstick (10/30/2024 2:00 PM EST) POC Glucose 99 65 - 99 mg/dL 10/30/2024 2:04 PM EST Blood specimen / Unknown 10/30/2024 2:00 PM EST 10/30/2024 2:04 PM EST Fuad Winter MD POINT OF CARE TEST ORDERABLES Performing Organization Address [facility] LAB See Below * POCT Glucose, Fingerstick (10/30/2024 12:35 PM EST) POC Glucose 99 65 - 99 mg/dL 10/30/2024 12:36 PM EST Blood specimen / Unknown 10/30/2024 12:35 PM EST 10/30/2024 12:36 PM EST Fuad Winter MD POINT OF CARE TEST ORDERABLES Performing Organization Address [facility] LAB See Below * POCT Glucose, Fingerstick (10/30/2024 8:43 AM EST) POC Glucose 95 65 - 99 mg/dL 10/30/2024 8:44 AM EST Blood specimen / Unknown 10/30/2024 8:43 AM EST 10/30/2024 8:44 AM EST Fuad Winter MD POINT OF CARE TEST ORDERABLES Performing Organization Address [facility] LAB See Below * Heparin Assay (Anti Xa) (10/30/2024 7:09 AM EST) Anti Xa 0.50 IU/mL 10/30/2024 8:13 AM EST [facility] Comment: (NOTE) Heparin Thromboembolic/Standard/Full Dose Protocol: Therapeutic Range: ? Age 18+: ? 0.30 - 0.70 IU/mL ? Age 0 - 17: ?? 0.35 - 0.70 IU/mL ? Heparin Cardiac/Low Dose Protocol: ? Therapeutic Range: ? 0.30 - 0.50 IU/mL ? Low Molecular Weight Heparin: ? Therapeutic Range: ? Age 18+: ? 0.50 - 1.50 IU/mL ? Age 0 - 17: ?? 0.50 - 1.00 ??IU/mL ? Anticoagulant IV HEPARIN, UNFRACTIONATED 10/29/2024 11:00 PM EST Blood Plasma specimen / Unknown 10/30/2024 7:09 AM EST 10/30/2024 7:54 AM EST Neymar Mcfarland MD LAB BLOOD ORDERAB LES Performing Organization Address [facility] [place] [address], [place] [address] * (ABNORMAL) Phosphorus (Early AM) (10/30/2024 7:09 AM EST) Phosphorus 5.1(H) 2.7 - 4.5 mg/dL 10/30/2024 8:47 AM EST [facility] Blood (Plasma/Serum) 10/30/2024 7:09 AM EST 10/30/2024 7:54 AM EST Jonna Donis PA-C LAB BLOOD ORDERABL ES Performing Organization Address [facility] [place] [address], [place] [address] * MAGNESIUM (10/30/2024 7:09 AM EST) Magnesium 1.7 1.6 - 2.7 mg/dL 10/30/2024 8:47 AM EST [facility] Blood (Plasma/Serum) 10/30/2024 7:09 AM EST 10/30/2024 7:54 AM EST Jonna Donis PA-C LAB BLOOD ORDERABL ES Performing Organization Address [facility] [place] [address], [place] [address] * (ABNORMAL) COMPLETE BLOOD COUNT, WITHOUT DIFFERENTIAL (10/30/2024 7:09 AM EST) White Blood Cell Count 9.3 4.0 - 11.0 Thou/uL 10/30/2024 8:20 AM EST [facility] Platelet Count 304 150 - 450 Thou/uL 10/30/2024 8:20 AM [facility] Hemoglobin 9.3(L) 13.0 - 17.7 g/dL 10/30/2024 8:20 AM [facility] Hematocrit 30.3(L) 39.0 - 54.0 % 10/30/2024 8:20 AM [facility] Red Blood Cell Count 2.99(L) 4.50 - 6.20 Mil/uL 10/30/2024 8:20 AM [facility] MCV 101(H) 80 - 100 fL 10/30/2024 8:20 AM [facility] MCH 31.1(H) 27.0 - 31.0 pg 10/30/2024 8:20 AM [facility] MCHC 30.7 30.0 - 36.0 g/dL 10/30/2024 8:20 AM [facility] RDW 16.8(H) 11.5 - 14.5 % 10/30/2024 8:20 AM [facility] MPV 11.1 7.5 - 12.5 fL 10/30/2024 8:20 AM [facility] Blood Blood specimen / Unknown 10/30/2024 7:09 AM EST 10/30/2024 7:54 AM EST Jonna Donis PA-C [place] [address], [place] [address] * (ABNORMAL) BASIC METABOLIC PANEL (10/30/2024 7:09 AM EST) Glucose 80 65 - 99 mg/dL 10/30/2024 8:47 AM [facility] Comment:Fasting: <100 mg/dL, Non-Fasting: <200 mg/dL (ADA 2005) Blood Urea Nitrogen (BUN) 40(H) 8 - 21 mg/dL 10/30/2024 8:47 AM [facility] Creatinine 4.3(H) 0.5 - 1.3 mg/dL 10/30/2024 8:47 AM [facility] eGFR 13(L) >59 10/30/2024 8:47 AM [facility] Comment:CKD-EPI (2020) in mL /min/1.73 sq meters. Sodium 142 136 - 145 mmol/L 10/30/2024 8:47 AM [facility] Potassium 4.5 3.4 - 5.3 mmol/L 10/30/2024 8:47 AM [facility] Chloride 101 98 - 107 mmol/L 10/30/2024 8:47 AM [facility] CO2 27 22 - 33 mmol/L 10/30/2024 8:47 AM [facility] Anion Gap 14 7 - 17 10/30/2024 8:47 AM [facility] Calcium 9.2 8.7 - 10.5 mg/dL 10/30/2024 8:47 AM [facility] BUN/Creatinine Ratio 9(L) 10.0 - 25.0 Ratio 10/30/2024 8:47 AM [facility] Blood (Plasma/Serum) 10/30/2024 7:09 AM EST 10/30/2024 7:54 AM EST Jonna Donis PA-C [place] [address], [place] [address] * POCT Glucose, Fingerstick (10/30/2024 6:47 AM EST) POC Glucose 90 65 - 99 mg/dL 10/30/2024 6:48 AM EST Blood specimen / Unknown 10/30/2024 6:47 AM EST 10/30/2024 6:48 AM EST Fuad Winter MD POINT OF CARE TEST ORDERABLES HOSPITAL LAB See Below * POCT Glucose, Fingerstick (10/30/2024 2:16 AM EST) POC Glucose 74 65 - 99 mg/dL 10/30/2024 2:17 AM EST Blood specimen / Unknown 10/30/2024 2:16 AM EST 10/30/2024 2:17 AM EST Fuad Winter MD POINT OF CARE TEST ORDERABLES Performing Organization Address [facility] LAB See Below * (ABNORMAL) POCT Glucose, Fingerstick (10/29/2024 9:16 PM EST) POC Glucose 138(H) 65 - 99 mg/dL 10/29/2024 9:16 PM EST Blood specimen / Unknown 10/29/2024 9:16 PM EST 10/29/2024 9:17 PM EST Fuad Winter MD POINT OF CARE TEST ORDERABLES Performing Organization Address [facility] LAB See Below * (ABNORMAL) POCT Glucose, Fingerstick (10/29/2024 4:32 PM EST) POC Glucose 187(H) 65 - 99 mg/dL 10/29/2024 4:33 PM EST Blood specimen / Unknown 10/29/2024 4:32 PM EST 10/29/2024 4:33 PM EST Fuad Winter MD POINT OF CARE TEST ORDERABLES Performing Organization Address [facility] LAB See Below * (ABNORMAL) POCT Glucose, Fingerstick (10/29/2024 12:54 PM EST) POC Glucose 162(H) 65 - 99 mg/dL 10/29/2024 12:55 PM EST Blood specimen / Unknown 10/29/2024 12:54 PM EST 10/29/2024 12:55 PM EST Fuad Winter MD POINT OF CARE TEST ORDERABLES Performing Organization Address [facility] LAB See Below * (ABNORMAL) POCT Glucose, Fingerstick (10/29/2024 7:51 AM EST) POC Glucose 107(H) 65 - 99 mg/dL 10/29/2024 7:53 AM EST Blood specimen / Unknown 10/29/2024 7:51 AM EST 10/29/2024 7:52 AM EST Fuad Winter MD POINT OF CARE TEST ORDERABLES Performing Organization Address [facility] Co de Phone Number HOSPITAL LAB See Below * (ABNORMAL) proBNP, N-terminal (10/29/2024 7:20 AM EST) Pathologist [facility] proBNP, N-terminal 47,866(H) <450 pg/mL 10/29/2024 12:12 PM EST [facility] Plasma specimen / Unknown 10/29/2024 7:20 AM EST 10/29/2024 8:04 AM EST Madhav Ryan MD LAB BLOOD ORDERABLES Performing Organization Address [facility] de Phone Number [facility] [address] [place] [address], [place] [address] * Heparin Assay (Anti Xa) (10/29/2024 7:20 AM EST) [facility] Anti Xa 0.41 IU/mL 10/29/2024 8:28 AM EST [facility] Comment: (NOTE) Heparin Thromboembolic/Standard/Full Dose Protocol: Therapeutic Range: ? Age 18+: ? 0.30 - 0.70 IU/mL ? Age 0 - 17: ?? 0.35 - 0.70 IU/mL ? Heparin Cardiac/Low Dose Protocol: ? Therapeutic Range: ? 0.30 - 0.50 IU/mL ? Low Molecular Weight Heparin: ? Therapeutic Range: ? Age 18+: ? 0.50 - 1.50 IU/mL ? Age 0 - 17: ?? 0.50 - 1.00 ??IU/mL ? Anticoagulant IV HEPARIN, UNFRACTIONATED 10/28/2024 11:00 PM EST Blood Plasma specimen / Unknown 10/29/2024 7:20 AM EST 10/29/2024 8:04 AM EST Neymar Mcfarland MD LAB BLOOD ORDERAB LES Performing Organization Address [facility] [place] [address], [place] [address] * (ABNORMAL) Phosphorus (Early AM) (10/29/2024 7:20 AM EST) Phosphorus 4.9(H) 2.7 - 4.5 mg/dL 10/29/2024 8:40 AM EST [facility] Blood (Plasma/Serum) 10/29/2024 7:20 AM EST 10/29/2024 8:04 AM EST Jonna Donis PA-C LAB BLOOD ORDERABL ES Performing Organization Address City/[facility]/[place] [address], [place] [address] * MAGNESIUM (10/29/2024 7:20 AM EST) Magnesium 1.7 1.6 - 2.7 mg/dL 10/29/2024 8:40 AM [facility] Blood (Plasma/Serum) 10/29/2024 7:20 AM EST 10/29/2024 8:04 AM EST Jonna Donis PA-C LAB BLOOD ORDERABL ES Performing Organization Address [facility] [place] [address], [place] [address] * (ABNORMAL) COMPLETE BLOOD COUNT, WITHOUT DIFFERENTIAL (10/29/2024 7:20 AM EST) White Blood Cell Count 8.5 4.0 - 11.0 Thou/uL 10/29/2024 8:23 AM [facility] Platelet Count 300 150 - 450 Thou/uL 10/29/2024 8:23 AM [facility] Hemoglobin 8.7(L) 13.0 - 17.7 g/dL 10/29/2024 8:23 AM [facility] Hematocrit 29.6(L) 39.0 - 54.0 % 10/29/2024 8:23 AM [facility] Red Blood Cell Count 2.92(L) 4.50 - 6.20 Mil/uL 10/29/2024 8:23 AM [facility] MCV 101(H) 80 - 100 fL 10/29/2024 8:23 AM [facility] MCH 29.8 27.0 - 31.0 pg 10/29/2024 8:23 AM [facility] MCHC 29.4(L) 30.0 - 36.0 g/dL 10/29/2024 8:23 AM [facility] RDW 17.2(H) 11.5 - 14.5 % 10/29/2024 8:23 AM [facility] MPV 10.9 7.5 - 12.5 fL 10/29/2024 8:23 AM [facility] Blood Blood specimen / Unknown 10/29/2024 7:20 AM EST 10/29/2024 8:04 AM EST Jonna Donis PA-C [place] [address], [place] [address] * (ABNORMAL) BASIC METABOLIC PANEL (10/29/2024 7:20 AM EST) Glucose 91 65 - 99 mg/dL 10/29/2024 8:40 AM [facility] Comment:Fasting: <100 mg/dL, Non-Fasting: <200 mg/dL (ADA 2005) Blood Urea Nitrogen (BUN) 44(H) 8 - 21 mg/dL 10/29/2024 8:40 AM [facility] Creatinine 4.3(H) 0.5 - 1.3 mg/dL 10/29/2024 8:40 AM [facility] eGFR 13(L) >59 10/29/2024 8:40 AM [facility] Comment:CKD-EPI (2020) in mL /min/1.73 sq meters. Sodium 142 136 - 145 mmol/L 10/29/2024 8:40 AM [facility] Potassium 4.0 3.4 - 5.3 mmol/L 10/29/2024 8:40 AM [facility] Chloride 103 98 - 107 mmol/L 10/29/2024 8:40 AM [facility] CO2 26 22 - 33 mmol/L 10/29/2024 8:40 AM [facility] Anion Gap 13 7 - 17 10/29/2024 8:40 AM [facility] Calcium 8.8 8.7 - 10.5 mg/dL 10/29/2024 8:40 AM [facility] BUN/Creatinine Ratio 10 10.0 - 25.0 Ratio 10/29/2024 8:40 AM [facility] Blood (Plasma/Serum) 10/29/2024 7:20 AM EST 10/29/2024 8:04 AM EST Jonna Donis PA-C LAB BLOOD ORDERABL ES [address] [address], [address] [address] * POCT Glucose, Fingerstick (10/29/2024 2:07 AM EST) POC Glucose 99 65 - 99 mg/dL 10/29/2024 2:07 AM EST Blood specimen / Unknown 10/29/2024 2:07 AM EST 10/29/2024 2:08 AM EST Fuad Winter MD POINT OF CARE TEST ORDERABLES Performing Organization Address [facility] Co de Phone Number [facility] LAB See Below * (ABNORMAL) POCT Glucose, Fingerstick (10/28/2024 9:30 PM EST) POC Glucose 219(H) 65 - 99 mg/dL 10/28/2024 9:31 PM EST Blood specimen / Unknown 10/28/2024 9:30 PM EST 10/28/2024 9:31 PM EST Fuad Winter MD POINT OF CARE TEST ORDERABLES HOSPITAL LAB See Below * (ABNORMAL) POCT Glucose, Fingerstick (10/28/2024 4:59 PM EST) POC Glucose 170(H) 65 - 99 mg/dL 10/28/2024 5:00 PM EST Blood specimen / Unknown 10/28/2024 4:59 PM EST 10/28/2024 5:00 PM EST Fuad Winter MD POINT OF CARE TEST ORDERABLES HOSPITAL LAB See Below * (ABNORMAL) Phosphorus (STAT) (10/28/2024 3:38 PM EST) Phosphorus 5.2(H) 2.7 - 4.5 mg/dL 10/28/2024 4:54 PM [facility] Blood (Plasma/Serum) 10/28/2024 3:38 PM EST 10/28/2024 4:29 PM EST Madhav Ryan MD [place] [address], [place] [address] * Magnesium (STAT) (10/28/2024 3:38 PM EST) Pathologist [facility] [place] Magnesium 1.8 1.6 - 2.7 mg/dL 10/28/2024 4:54 PM [facility] Blood (Plasma/Serum) 10/28/2024 3:38 PM EST 10/28/2024 4:29 PM EST Madhav Ryan MD LAB BLOOD ORDERABLES Performing Organization Address [facility] [place] [address], [place] [address] * (ABNORMAL) Basic Metabolic Panel (STAT) (10/28/2024 3:38 PM EST) Pathologist [facility] [place] Glucose 208(H) 65 - 99 mg/dL 10/28/2024 4:54 PM [facility] Comment:Fasting: <100 mg/dL, Non-Fasting: <200 mg/dL (ADA 2004) Blood Urea Nitrogen (BUN) 48(H) 8 - 21 mg/dL 10/28/2024 4:54 PM [facility] Creatinine 4.3(H) 0.5 - 1.3 mg/dL 10/28/2024 4:54 PM [facility] eGFR 13(L) >59 10/28/2024 4:54 PM [facility] Comment:CKD-EPI (2020) in mL /min/1.73 sq meters. Sodium 143 136 - 145 mmol/L 10/28/2024 4:54 PM [facility] Potassium 4.7 3.4 - 5.3 mmol/L 10/28/2024 4:54 PM [facility] Chloride 105 98 - 107 mmol/L 10/28/2024 4:54 PM [facility] CO2 25 22 - 33 mmol/L 10/28/2024 4:54 PM [facility] Anion Gap 13 7 - 17 10/28/2024 4:54 PM [facility] Calcium 8.9 8.7 - 10.5 mg/dL 10/28/2024 4:54 PM [facility] BUN/Creatinine Ratio 11 10.0 - 25.0 Ratio 10/28/2024 4:54 PM [facility] Blood (Plasma/Serum) 10/28/2024 3:38 PM EST 10/28/2024 4:29 PM EST Madhav Ryan MD [place] [address], [place] [address] * (ABNORMAL) POCT Glucose, Fingerstick (10/28/2024 12:32 PM EST) Pathologist [facility] [place] POC Glucose 232(H) 65 - 99 mg/dL 10/28/2024 12:36 PM EST Blood specimen / Unknown 10/28/2024 12:32 PM EST 10/28/2024 12:36 PM EST Fuad Winter MD POINT OF CARE TEST ORDERABLES HOSPITAL LAB See Below * (ABNORMAL) POCT Glucose, Fingerstick (10/28/2024 8:28 AM EST) Pathologist [facility] [place] POC Glucose 111(H) 65 - 99 mg/dL 10/28/2024 8:30 AM EST Blood specimen / Unknown 10/28/2024 8:28 AM EST 10/28/2024 8:29 AM EST Fuad Winter MD POINT OF CARE TEST ORDERABLES HOSPITAL LAB See Below * Heparin Assay (Anti Xa) (10/28/2024 7:00 AM EST) Anti Xa 0.39 IU/mL 10/28/2024 7:54 AM EST [facility] Comment: (NOTE) Heparin Thromboembolic/Standard/Full Dose Protocol: Therapeutic Range: ? Age 18+: ? 0.30 - 0.70 IU/mL ? Age 0 - 17: ?? 0.35 - 0.70 IU/mL ? Heparin Cardiac/Low Dose Protocol: ? Therapeutic Range: ? 0.30 - 0.50 IU/mL ? Low Molecular Weight Heparin: ? Therapeutic Range: ? Age 18+: ? 0.50 - 1.50 IU/mL ? Age 0 - 17: ?? 0.50 - 1.00 ??IU/mL ? Anticoagulant IV HEPARIN, UNFRACTIONATED 10/27/2024 11:00 PM EST Blood Plasma specimen / Unknown 10/28/2024 7:00 AM EST 10/28/2024 7:37 AM EST Neymar Mcfarland MD LAB BLOOD ORDERAB LES Performing Organization Address [facility] Co de Phone Number [address] [address], [place] [address] * (ABNORMAL) Phosphorus (Early AM) (10/28/2024 7:00 AM EST) Phosphorus 4.6(H) 2.7 - 4.5 mg/dL 10/28/2024 8:08 AM EST [facility] Blood (Plasma/Serum) 10/28/2024 7:00 AM EST 10/28/2024 7:37 AM EST Jonna Donis PA-C LAB BLOOD ORDERABL ES Performing Organization Address [facility] Co de Phone Number [address] [address], [address] [address] * MAGNESIUM (10/28/2024 7:00 AM EST) Magnesium 1.8 1.6 - 2.7 mg/dL 10/28/2024 8:08 AM EST [facility] Blood (Plasma/Serum) 10/28/2024 7:00 AM EST 10/28/2024 7:37 AM EST Jonna Donis PA-C LAB BLOOD ORDERABL ES Performing Organization Address [facility] Co de Phone Number [address] [address], [address] [address] * (ABNORMAL) COMPLETE BLOOD COUNT, WITHOUT DIFFERENTIAL (10/28/2024 7:00 AM EST) [facility] White Blood Cell Count 9.2 4.0 - 11.0 Thou/uL 10/28/2024 7:46 AM [facility] Platelet Count 326 150 - 450 Thou/uL 10/28/2024 7:46 AM [facility] Hemoglobin 8.7(L) 13.0 - 17.7 g/dL 10/28/2024 7:46 AM [facility] Hematocrit 29.1(L) 39.0 - 54.0 % 10/28/2024 7:46 AM [facility] Red Blood Cell Count 2.85(L) 4.50 - 6.20 Mil/uL 10/28/2024 7:46 AM [facility] MCV 102(H) 80 - 100 fL 10/28/2024 7:46 AM [facility] MCH 30.5 27.0 - 31.0 pg 10/28/2024 7:46 AM [facility] MCHC 29.9(L) 30.0 - 36.0 g/dL 10/28/2024 7:46 AM [facility] RDW 17.2(H) 11.5 - 14.5 % 10/28/2024 7:46 AM [facility] MPV 11.3 7.5 - 12.5 fL 10/28/2024 7:46 AM [facility] Blood Blood specimen / Unknown 10/28/2024 7:00 AM EST 10/28/2024 7:37 AM EST Jonna Donis PA-C LAB BLOOD ORDERABL ES [address] [address], [address] [address] * (ABNORMAL) BASIC METABOLIC PANEL (10/28/2024 7:00 AM EST) [facility] Glucose 84 65 - 99 mg/dL 10/28/2024 8:08 AM [facility] Comment:Fasting: <100 mg/dL, Non-Fasting: <200 mg/dL (ADA 2005) Blood Urea Nitrogen (BUN) 50(H) 8 - 21 mg/dL 10/28/2024 8:08 AM [facility] Creatinine 4.4(H) 0.5 - 1.3 mg/dL 10/28/2024 8:08 AM [facility] eGFR 13(L) >59 10/28/2024 8:08 AM [facility] Comment:CKD-EPI (2020) in mL /min/1.73 sq meters. Sodium 142 136 - 145 mmol/L 10/28/2024 8:08 AM [facility] Potassium 3.9 3.4 - 5.3 mmol/L 10/28/2024 8:08 AM [facility] Chloride 105 98 - 107 mmol/L 10/28/2024 8:08 AM [facility] CO2 25 22 - 33 mmol/L 10/28/2024 8:08 AM [facility] Anion Gap 12 7 - 17 10/28/2024 8:08 AM [facility] Calcium 8.6(L) 8.7 - 10.5 mg/dL 10/28/2024 8:08 AM [facility] BUN/Creatinine Ratio 11 10.0 - 25.0 Ratio 10/28/2024 8:08 AM [facility] Blood (Plasma/Serum) 10/28/2024 7:00 AM EST 10/28/2024 7:37 AM EST Jonna Donis PA-C LAB BLOOD ORDERABL ES Performing Organization Address City/[facility] [place] [address], [place] [address] * (ABNORMAL) POCT Glucose, Fingerstick (10/28/2024 4:20 AM EST) POC Glucose 109(H) 65 - 99 mg/dL 10/28/2024 4:21 AM EST Blood specimen / Unknown 10/28/2024 4:20 AM EST 10/28/2024 4:21 AM EST Fuad Winter MD POINT OF CARE TEST ORDERABLES Performing Organization Address City/State/[facility] Phone [facility] LAB See Below * (ABNORMAL) POCT Glucose, Fingerstick (10/28/2024 12:29 AM EST) POC Glucose 129(H) 65 - 99 mg/dL 10/28/2024 12:30 AM EST Blood specimen / Unknown 10/28/2024 12:29 AM EST 10/28/2024 12:30 AM EST Fuad Winter MD POINT OF CARE TEST ORDERABLES Performing Organization Address [facility] Phone Number [facility] LAB See Below * (ABNORMAL) POCT Glucose, Fingerstick (10/27/2024 8:06 PM EST) POC Glucose 203(H) 65 - 99 mg/dL 10/27/2024 8:10 PM EST Blood specimen / Unknown 10/27/2024 8:06 PM EST 10/27/2024 8:10 PM EST Fuad Winter MD POINT OF CARE TEST ORDERABLES Performing Organization Address [facility] Phone [facility] LAB See Below * (ABNORMAL) POCT Glucose, Fingerstick (10/27/2024 4:20 PM EST) POC Glucose 224(H) 65 - 99 mg/dL 10/27/2024 4:28 PM EST Blood specimen / Unknown 10/27/2024 4:20 PM EST 10/27/2024 4:28 PM EST Fuad Winter MD POINT OF CARE TEST ORDERABLES Performing Organization Address [facility] Phone Number [facility] LAB See Below * (ABNORMAL) Basic Metabolic Panel (Routine) (10/27/2024 3:26 PM EST) Glucose 179(H) 65 - 99 mg/dL 10/27/2024 4:11 PM EST [facility] Comment:Fasting: <100 mg/dL, Non-Fasting: <200 mg/dL (ADA 2005) Blood Urea Nitrogen (BUN) 53(H) 8 - 21 mg/dL 10/27/2024 4:11 PM [facility] Creatinine 4.2(H) 0.5 - 1.3 mg/dL 10/27/2024 4:11 PM [facility] eGFR 14(L) >59 10/27/2024 4:11 PM [facility] Comment:CKD-EPI (2020) in mL /min/1.73 sq meters. Sodium 143 136 - 145 mmol/L 10/27/2024 4:11 PM [facility] Potassium 5.2 3.4 - 5.3 mmol/L 10/27/2024 4:11 PM [facility] Chloride 105 98 - 107 mmol/L 10/27/2024 4:11 PM [facility] CO2 25 22 - 33 mmol/L 10/27/2024 4:11 PM [facility] Anion Gap 13 7 - 17 10/27/2024 4:11 PM [facility] Calcium 8.6(L) 8.7 - 10.5 mg/dL 10/27/2024 4:11 PM [facility] BUN/Creatinine Ratio 13 10.0 - 25.0 Ratio 10/27/2024 4:11 PM [facility] Blood (Plasma/Serum) 10/27/2024 3:26 PM EST 10/27/2024 3:45 PM EST Madhav Ryan MD [place] [address], [place] [address] * (ABNORMAL) POCT Glucose, Fingerstick (10/27/2024 1:13 PM EST) POC Glucose 186(H) 65 - 99 mg/dL 10/27/2024 1:13 PM EST Blood specimen / Unknown 10/27/2024 1:13 PM EST 10/27/2024 1:14 PM EST Fuad Winter MD POINT OF CARE TEST ORDERABLES HOSPITAL LAB See Below * (ABNORMAL) POCT Glucose, Fingerstick (10/27/2024 8:58 AM EST) POC Glucose 165(H) 65 - 99 mg/dL 10/27/2024 8:59 AM EST Blood specimen / Unknown 10/27/2024 8:58 AM EST 10/27/2024 8:59 AM EST Fuad Winter MD POINT OF CARE TEST ORDERABLES HOSPITAL LAB See Below * ECG 12 lead (STAT) (10/27/2024 7:41 AM EST) Pathologist [facility] Ventricular rate 60 BPM EKG [facility] Atrial rate 60 BPM EKG [facility] P-R interval 150 ms EKG [facility] QRS duration 84 ms EKG [facility] Q-T interval 488 ms EKG [facility] QTC calculation (Bazett) 488 ms EKG [facility] P axis 45 degrees EKG [facility] R axis 13 degrees EKG [facility] T axis 199 degrees EKG [facility] 10/27/2024 7:41 AM EST Narrative EKG [facility] - 10/27/2024 6:03 PM EST Normal sinus rhythm Septal infarct , age undetermined ST & T wave abnormality, consider anterolateral ischemia T wave abnormality, consider inferior ischemia Abnormal ECG When compared with ECG of 25-Oct-2024 10:44, Questionable change in QRS axis T wave inversion more evident in Anterior leads Confirmed by MD Hinojosa Mohammed ([id number]) on 10/27/2024 6:03:18 PM Procedure Note Nneka Hinojosa MD - 10/27/2024 Normal sinus rhythm Septal infarct , age undetermined ST & T wave abnormality, consider anterolateral ischemia T wave abnormality, consider inferior ischemia Abnormal ECG When compared with ECG of 25-Oct-2024 10:44, Questionable change in QRS axis T wave inversion more evident in Anterior leads Confirmed by MD Hinojosa Mohammed ([id number]) on 10/27/2024 6:03:18 PM Madhav Ryan MD ECG ORDERABLES EKG [facility] * Heparin Assay (Anti Xa) (10/27/2024 7:29 AM EST) Anti Xa 0.39 IU/mL 10/27/2024 8:42 AM EST [facility] Comment: (NOTE) Heparin Thromboembolic/Standard/Full Dose Protocol: Therapeutic Range: ? Age 18+: ? 0.30 - 0.70 IU/mL ? Age 0 - 17: ?? 0.35 - 0.70 IU/mL ? Heparin Cardiac/Low Dose Protocol: ? Therapeutic Range: ? 0.30 - 0.50 IU/mL ? Low Molecular Weight Heparin: ? Therapeutic Range: ? Age 18+: ? 0.50 - 1.50 IU/mL ? Age 0 - 17: ?? 0.50 - 1.00 ??IU/mL ? Anticoagulant IV HEPARIN, UNFRACTIONATED 10/26/2024 11:00 PM EST Blood Plasma specimen / Unknown 10/27/2024 7:29 AM EST 10/27/2024 8:24 AM EST Neymar Mcfarland MD LAB BLOOD ORDERAB LES Performing Organization Address [facility] [place] [address], [place] [address] * (ABNORMAL) Phosphorus (AM) (10/27/2024 7:29 AM EST) Phosphorus 4.6(H) 2.7 - 4.5 mg/dL 10/27/2024 8:48 AM EST [facility] Blood (Plasma/Serum) 10/27/2024 7:29 AM EST 10/27/2024 8:24 AM EST Neymar Mcfarland MD LAB BLOOD ORDERAB LES Performing Organization Address [facility] [place] [address], [place] [address] * Magnesium (AM) (10/27/2024 7:29 AM EST) Magnesium 1.8 1.6 - 2.7 mg/dL 10/27/2024 8:48 AM EST [facility] Blood (Plasma/Serum) 10/27/2024 7:29 AM EST 10/27/2024 8:24 AM EST Neymar Mcfarland MD LAB BLOOD ORDERAB LES Performing Organization Address [facility] [place] [address], [place] [address] * (ABNORMAL) Basic Metabolic Panel (AM) (10/27/2024 7:29 AM EST) Glucose 63(L) 65 - 99 mg/dL 10/27/2024 8:48 AM [facility] Comment:Fasting: <100 mg/dL, Non-Fasting: <200 mg/dL (ADA 2004) Blood Urea Nitrogen (BUN) 59(H) 8 - 21 mg/dL 10/27/2024 8:48 AM [facility] Creatinine 4.3(H) 0.5 - 1.3 mg/dL 10/27/2024 8:48 AM [facility] eGFR 13(L) >59 10/27/2024 8:48 AM [facility] Comment:CKD-EPI (2020) in mL /min/1.73 sq meters. Sodium 146(H) 136 - 145 mmol/L 10/27/2024 8:48 AM [facility] Potassium 3.7 3.4 - 5.3 mmol/L 10/27/2024 8:48 AM [facility] Chloride 107 98 - 107 mmol/L 10/27/2024 8:48 AM [facility] CO2 24 22 - 33 mmol/L 10/27/2024 8:48 AM [facility] Anion Gap 15 7 - 17 10/27/2024 8:48 AM [facility] Calcium 8.4(L) 8.7 - 10.5 mg/dL 10/27/2024 8:48 AM [facility] BUN/Creatinine Ratio 14 10.0 - 25.0 Ratio 10/27/2024 8:48 AM [facility] Blood (Plasma/Serum) 10/27/2024 7:29 AM EST 10/27/2024 8:24 AM EST Neymar Mcfarland MD LAB BLOOD ORDERAB LES [facility] [address] [place] [address], [place] [address] * (ABNORMAL) Complete Blood Count WITHOUT Differential - in AM (10/27/2024 7:29 AM EST) [facility] White Blood Cell Count 9.2 4.0 - 11.0 Thou/uL 10/27/2024 8:38 AM [facility] Platelet Count 321 150 - 450 Thou/uL 10/27/2024 8:38 AM [facility] Hemoglobin 9.0(L) 13.0 - 17.7 g/dL 10/27/2024 8:38 AM [facility] Hematocrit 29.8(L) 39.0 - 54.0 % 10/27/2024 8:38 AM [facility] Red Blood Cell Count 2.95(L) 4.50 - 6.20 Mil/uL 10/27/2024 8:38 AM [facility] MCV 101(H) 80 - 100 fL 10/27/2024 8:38 AM [facility] MCH 30.5 27.0 - 31.0 pg 10/27/2024 8:38 AM [facility] MCHC 30.2 30.0 - 36.0 g/dL 10/27/2024 8:38 AM [facility] RDW 16.9(H) 11.5 - 14.5 % 10/27/2024 8:38 AM [facility] MPV 11.6 7.5 - 12.5 fL 10/27/2024 8:38 AM [facility] Blood Blood specimen / Unknown 10/27/2024 7:29 AM EST 10/27/2024 8:24 AM EST Neymar Mcfarland MD [place] [address], [place] [address] * POCT Glucose, Fingerstick (10/27/2024 4:02 AM EST) [facility] POC Glucose 90 65 - 99 mg/dL 10/27/2024 4:03 AM EST Blood specimen / Unknown 10/27/2024 4:02 AM EST 10/27/2024 4:03 AM EST Fuad Winter MD POINT OF CARE TEST ORDERABLES Performing Organization Address [facility]/ZIP Co de Phone Number HOSPITAL LAB See Below * (ABNORMAL) POCT Glucose, Fingerstick (10/27/2024 1:20 AM EST) POC Glucose 155(H) 65 - 99 mg/dL 10/27/2024 1:25 AM EST Blood specimen / Unknown 10/27/2024 1:20 AM EST 10/27/2024 1:25 AM EST Fuad Winter MD POINT OF CARE TEST ORDERABLES Performing Organization Address [facility] de Phone Number HOSPITAL LAB See Below * POCT Glucose, Fingerstick (10/27/2024 12:29 AM EST) POC Glucose 74 65 - 99 mg/dL 10/27/2024 12:30 AM EST Blood specimen / Unknown 10/27/2024 12:29 AM EST 10/27/2024 12:30 AM EST Fuad Winter MD POINT OF CARE TEST ORDERABLES Performing Organization Address [facility] Phone Number HOSPITAL LAB See Below * (ABNORMAL) POCT Glucose, Fingerstick (10/26/2024 8:11 PM EST) POC Glucose 120(H) 65 - 99 mg/dL 10/26/2024 8:12 PM EST Blood specimen / Unknown 10/26/2024 8:11 PM EST 10/26/2024 8:12 PM EST Fuad Winter MD POINT OF CARE TEST ORDERABLES Performing Organization Address [facility] Co de Phone Number HOSPITAL LAB See Below * (ABNORMAL) POCT Glucose, Fingerstick (10/26/2024 6:09 PM EST) POC Glucose 119(H) 65 - 99 mg/dL 10/26/2024 6:10 PM EST Blood specimen / Unknown 10/26/2024 6:09 PM EST 10/26/2024 6:10 PM EST Fuad Winter MD POINT OF CARE TEST ORDERABLES HOSPITAL LAB See Below * POCT Glucose, Fingerstick (10/26/2024 11:58 AM EST) POC Glucose 96 65 - 99 mg/dL 10/26/2024 11:59 AM EST Blood specimen / Unknown 10/26/2024 11:58 AM EST 10/26/2024 11:59 AM EST Fuad Winter MD POINT OF CARE TEST ORDERABLES HOSPITAL LAB See Below * (ABNORMAL) High Sensitivity Troponin T (Once) (10/26/2024 10:49 AM EST) Pathologist [facility] High Sensitivity Troponin T 2,071(HH) <23 ng/L 10/26/2024 11:53 AM EST [facility] Comment:Recurring Critical R esult. Previously phoned. Delta (Change) 532(H) <3 10/26/2024 11:53 AM EST [facility] Comment:Decreased Blood (Plasma/Serum) 10/26/2024 10:49 AM EST 10/26/2024 11:11 AM EST Neymar Mcfarland MD LAB BLOOD ORDERAB LES Performing Organization Address City/[facility] [place] [address], [place] [address] * POCT Glucose, Fingerstick (10/26/2024 8:48 AM EST) POC Glucose 90 65 - 99 mg/dL 10/26/2024 8:49 AM EST Blood specimen / Unknown 10/26/2024 8:48 AM EST 10/26/2024 8:49 AM EST Fuad Winter MD POINT OF CARE TEST ORDERABLES HOSPITAL LAB See Below * Heparin Assay (Anti Xa) (10/26/2024 6:18 AM EST) Anti Xa 0.49 IU/mL 10/26/2024 7:38 AM EST [facility] Comment: (NOTE) Heparin Thromboembolic/Standard/Full Dose Protocol: Therapeutic Range: ? Age 18+: ? 0.30 - 0.70 IU/mL ? Age 0 - 17: ?? 0.35 - 0.70 IU/mL ? Heparin Cardiac/Low Dose Protocol: ? Therapeutic Range: ? 0.30 - 0.50 IU/mL ? Low Molecular Weight Heparin: ? Therapeutic Range: ? Age 18+: ? 0.50 - 1.50 IU/mL ? Age 0 - 17: ?? 0.50 - 1.00 ??IU/mL ? Anticoagulant IV HEPARIN, UNFRACTIONATED 10/26/2024 12:25 AM EST Blood Plasma specimen / Unknown 10/26/2024 6:18 AM EST 10/26/2024 7:22 AM EST Neymar Mcfarland MD LAB BLOOD ORDERAB LES Performing Organization Address City/[facility]/[place] [address], [place] [address] * Phosphorus (AM) (10/26/2024 6:18 AM EST) Phosphorus 4.2 2.7 - 4.5 mg/dL 10/26/2024 7:45 AM EST [facility] Blood (Plasma/Serum) 10/26/2024 6:18 AM EST 10/26/2024 7:22 AM EST Neymar Mcfarland MD LAB BLOOD ORDERAB LES Performing Organization Address [facility] [place] [address], [place] [address] * Magnesium (AM) (10/26/2024 6:18 AM EST) Magnesium 1.9 1.6 - 2.7 mg/dL 10/26/2024 7:45 AM EST [facility] Blood (Plasma/Serum) 10/26/2024 6:18 AM EST 10/26/2024 7:22 AM EST Neymar Mcfarland MD LAB BLOOD ORDERAB LES Performing Organization Address [facility] [place] [address], [place] [address] * (ABNORMAL) Basic Metabolic Panel (AM) (10/26/2024 6:18 AM EST) Glucose 79 65 - 99 mg/dL 10/26/2024 7:45 AM [facility] Comment:Fasting: <100 mg/dL, Non-Fasting: <200 mg/dL (ADA 2004) Blood Urea Nitrogen (BUN) 61(H) 8 - 21 mg/dL 10/26/2024 7:45 AM [facility] Creatinine 4.0(H) 0.5 - 1.3 mg/dL 10/26/2024 7:45 AM [facility] eGFR 14(L) >59 10/26/2024 7:45 AM [facility] Comment:CKD-EPI (2020) in mL /min/1.73 sq meters. Sodium 145 136 - 145 mmol/L 10/26/2024 7:45 AM [facility] Potassium 4.2 3.4 - 5.3 mmol/L 10/26/2024 7:45 AM [facility] Chloride 107 98 - 107 mmol/L 10/26/2024 7:45 AM [facility] CO2 23 22 - 33 mmol/L 10/26/2024 7:45 AM [facility] Anion Gap 15 7 - 17 10/26/2024 7:45 AM [facility] Calcium 7.9(L) 8.7 - 10.5 mg/dL 10/26/2024 7:45 AM [facility] BUN/Creatinine Ratio 15 10.0 - 25.0 Ratio 10/26/2024 7:45 AM [facility] Blood (Plasma/Serum) 10/26/2024 6:18 AM EST 10/26/2024 7:22 AM EST Neymar Mcfarland MD LAB BLOOD ORDERAB LES [address] [address], [address] [address] * (ABNORMAL) Complete Blood Count WITHOUT Differential - in AM (10/26/2024 6:18 AM EST) White Blood Cell Count 9.7 4.0 - 11.0 Thou/uL 10/26/2024 7:29 AM [facility] Platelet Count 328 150 - 450 Thou/uL 10/26/2024 7:29 AM [facility] Hemoglobin 8.6(L) 13.0 - 17.7 g/dL 10/26/2024 7:29 AM [facility] Hematocrit 27.9(L) 39.0 - 54.0 % 10/26/2024 7:29 AM [facility] Red Blood Cell Count 2.78(L) 4.50 - 6.20 Mil/uL 10/26/2024 7:29 AM [facility] MCV 100 80 - 100 fL 10/26/2024 7:29 AM [facility] MCH 30.9 27.0 - 31.0 pg 10/26/2024 7:29 AM [facility] MCHC 30.8 30.0 - 36.0 g/dL 10/26/2024 7:29 AM [facility] RDW 16.8(H) 11.5 - 14.5 % 10/26/2024 7:29 AM [facility] MPV 11.6 7.5 - 12.5 fL 10/26/2024 7:29 AM [facility] Blood Blood specimen / Unknown 10/26/2024 6:18 AM EST 10/26/2024 7:22 AM EST Neymar Mcfarland MD [place] [address], [place] [address] * (ABNORMAL) POCT Glucose, Fingerstick (10/26/2024 3:58 AM EST) POC Glucose 100(H) 65 - 99 mg/dL 10/26/2024 3:58 AM EST Blood specimen / Unknown 10/26/2024 3:58 AM EST 10/26/2024 3:59 AM EST Fuad Winter MD POINT OF CARE TEST ORDERABLES HOSPITAL LAB See Below * (ABNORMAL) POCT Glucose, Fingerstick (10/25/2024 11:49 PM EST) Pathologist [facility] [place] POC Glucose 125(H) 65 - 99 mg/dL 10/25/2024 11:50 PM EST Blood specimen / Unknown 10/25/2024 11:49 PM EST 10/25/2024 11:50 PM EST Fuad Winter MD POINT OF CARE TEST ORDERABLES HOSPITAL LAB See Below * Heparin Assay (Anti Xa) (10/25/2024 11:35 PM EST) [facility] Anti Xa 0.44 IU/mL 10/26/2024 12:23 AM EST [facility] Comment: (NOTE) Heparin Thromboembolic/Standard/Full Dose Protocol: Therapeutic Range: ? Age 18+: ? 0.30 - 0.70 IU/mL ? Age 0 - 17: ?? 0.35 - 0.70 IU/mL ? Heparin Cardiac/Low Dose Protocol: ? Therapeutic Range: ? 0.30 - 0.50 IU/mL ? Low Molecular Weight Heparin: ? Therapeutic Range: ? Age 18+: ? 0.50 - 1.50 IU/mL ? Age 0 - 17: ?? 0.50 - 1.00 ??IU/mL ? Anticoagulant IV HEPARIN, UNFRACTIONATED 10/25/2024 6:03 PM EST Blood Plasma specimen / Unknown 10/25/2024 11:35 PM EST 10/26/2024 12:02 AM EST Neymar Mcfarland MD LAB BLOOD ORDERAB LES Performing Organization Address [facility] [place] [address], [place] [address] * (ABNORMAL) POCT Glucose, Fingerstick (10/25/2024 8:20 PM EST) [facility] POC Glucose 222(H) 65 - 99 mg/dL 10/25/2024 8:21 PM EST Blood specimen / Unknown 10/25/2024 8:20 PM EST 10/25/2024 8:21 PM EST Fuad Winter MD POINT OF CARE TEST ORDERABLES Performing Organization Address City/[facility] Co de Phone Number HOSPITAL LAB See Below * (ABNORMAL) POCT Glucose, Fingerstick (10/25/2024 5:39 PM EST) Pathologist [facility] [place] POC Glucose 135(H) 65 - 99 mg/dL 10/25/2024 5:44 PM EST Blood specimen / Unknown 10/25/2024 5:39 PM EST 10/25/2024 5:44 PM EST Fuad Winter MD POINT OF CARE TEST ORDERABLES HOSPITAL LAB See Below * Heparin Assay (Anti Xa) (10/25/2024 5:03 PM EST) Anti Xa 0.57 IU/mL 10/25/2024 5:53 PM EST [facility] Comment: (NOTE) Heparin Thromboembolic/Standard/Full Dose Protocol: Therapeutic Range: ? Age 18+: ? 0.30 - 0.70 IU/mL ? Age 0 - 17: ?? 0.35 - 0.70 IU/mL ? Heparin Cardiac/Low Dose Protocol: ? Therapeutic Range: ? 0.30 - 0.50 IU/mL ? Low Molecular Weight Heparin: ? Therapeutic Range: ? Age 18+: ? 0.50 - 1.50 IU/mL ? Age 0 - 17: ?? 0.50 - 1.00 ??IU/mL ? Anticoagulant IV HEPARIN, UNFRACTIONATED 10/25/2024 3:44 PM EST Blood Plasma specimen / Unknown 10/25/2024 5:03 PM EST 10/25/2024 5:24 PM EST Neyamr Mcfarland MD LAB BLOOD ORDERAB LES Performing Organization Address [facility] [place] [address], [place] [address] * (ABNORMAL) High Sensitivity Troponin T (now and in 3 hours) (10/25/2024 5:03 PM EST) High Sensitivity Troponin T 2,468(HH) <23 ng/L 10/25/2024 6:02 PM [facility] Comment:Recurring Critical R esult. Previously phoned. Delta (Change) 135(H) <3 10/25/2024 6:02 PM [facility] Comment:Decreased Blood (Plasma/Serum) 10/25/2024 5:03 PM EST 10/25/2024 5:25 PM EST Neymar Mcfarland MD LAB BLOOD ORDERAB LES Performing Organization Address [facility] [place] [address], [place] [address] * (ABNORMAL) High Sensitivity Troponin T (now and in 3 hours) (10/25/2024 3:38 PM EST) High Sensitivity Troponin T 2,413(HH) <23 ng/L 10/25/2024 4:21 PM [facility] Comment:Recurring Critical R esult. Previously phoned. Delta (Change) 190(H) <3 10/25/2024 4:21 PM [facility] Comment:Decreased Blood (Plasma/Serum) 10/25/2024 3:38 PM EST 10/25/2024 3:48 PM EST Neymar Mcfarland MD LAB BLOOD ORDERAB LES Performing Organization Address [facility] [place] [address], [place] [address] * (ABNORMAL) High Sensitivity Troponin T (10/25/2024 12:47 PM EST) High Sensitivity Troponin T 2,394(HH) <23 ng/L 10/25/2024 2:04 PM [facility] Comment:Recurring Critical R esult. Previously phoned. Delta (Change) 209(H) <3 10/25/2024 2:04 PM [facility] Comment:Decreased Plasma/Serum 10/25/2024 12:4 7 PM EST 10/25/2024 1:34 PM EST Bryant Gracia PA-C LAB BLOOD ORDERABLES Performing Organization Address [facility] [place] [address], [place] [address] * Heparin Assay (Anti Xa) (10/25/2024 12:47 PM EST) Pathologist [facility] [place] Anti Xa 0.47 IU/mL 10/25/2024 2:06 PM [facility] Comment: (NOTE) Heparin Thromboembolic/Standard/Full Dose Protocol: Therapeutic Range: ? Age 18+: ? 0.30 - 0.70 IU/mL ? Age 0 - 17: ?? 0.35 - 0.70 IU/mL ? Heparin Cardiac/Low Dose Protocol: ? Therapeutic Range: ? 0.30 - 0.50 IU/mL ? Low Molecular Weight Heparin: ? Therapeutic Range: ? Age 18+: ? 0.50 - 1.50 IU/mL ? Age 0 - 17: ?? 0.50 - 1.00 ??IU/mL ? Anticoagulant IV HEPARIN, UNFRACTIONATED 10/25/2024 6:19 AM EST Blood Plasma specimen / Unknown 10/25/2024 12:47 PM EST 10/25/2024 1:34 PM EST Neymar Mcfarland MD LAB BLOOD ORDERAB LES Performing Organization Address [facility]/State/ZIP Co de Phone Number [address] [address], [address] [address] * (ABNORMAL) POCT Glucose, Fingerstick (10/25/2024 12:33 PM EST) POC Glucose 166(H) 65 - 99 mg/dL 10/25/2024 12:33 PM EST Blood specimen / Unknown 10/25/2024 12:33 PM EST 10/25/2024 12:34 PM EST Fuad Winter MD POINT OF CARE TEST ORDERABLES HOSPITAL LAB See Below * XR Chest 1 view-Portable (STAT) (10/25/2024 11:48 AM EST) Anatomical Region Laterality Modality Chest Computed Radiogr aphy 10/25/2024 11:2 5 AM EST Impressions 10/25/2024 1:04 PM EST No significant change in bilateral opacities and pleural effusions. Narrative 10/25/2024 1:04 PM EST CHEST X-RAY INDICATION: ??sob COMPARISON: 10/24/2024 TECHNIQUE: Single frontal film of the chest. FINDINGS: Devices: External chest leads are present. Cardiomediastinal: Cardiac silhouette size is stable. Lungs and pleura: No significant change in bilateral interstitial and airspace opacities. No significant change in bilateral pleural effusions. Bones: Stable. Miscellaneous: None. Procedure Note Bel Ayala MD - 10/25/2024 CHEST X-RAY INDICATION: sob COMPARISON: 10/24/2024 TECHNIQUE: Single frontal film of the chest. FINDINGS: Devices: External chest leads are present. Cardiomediastinal: Cardiac silhouette size is stable. Lungs and pleura: No significant change in bilateral interstitial and airspace opacities. No significant change in bilateral pleural effusions. Bones: Stable. Miscellaneous: None. IMPRESSION: No significant change in bilateral opacities and pleural effusions. Neymar Mcfarland MD IMG DIAGNOSTIC IM AGING ORDERABLES * ECG 12 lead (10/25/2024 10:44 AM EST) Ventricular rate 76 BPM EKG [facility] Atrial rate 76 BPM EKG [facility] P-R interval 152 ms EKG [facility] QRS duration 82 ms EKG [facility] Q-T interval 450 ms EKG [facility] QTC calculation (Bazett) 506 ms EKG [facility] P axis 67 degrees EKG [facility] R axis 69 degrees EKG [facility] T axis 237 degrees EKG [facility] 10/25/2024 10:4 4 AM EST Narrative EKG [facility] - 10/25/2024 8:09 PM EST Normal sinus rhythm ST & T wave abnormality, consider lateral ischemia Prolonged QT Abnormal ECG When compared with ECG of 23-Oct-2024 17:43, Nonspecific T wave abnormality, worse in Inferior leads T wave inversion less evident in Lateral leads Confirmed by DO Ladd Kyla ([id number]) on 10/25/2024 8:09:06 PM Procedure Note Jessica Ladd DO - 10/25/[address] & T wave abnormality, consider lateral ischemia Prolonged QT Abnormal ECG When compared with ECG of 23-Oct-2024 17:43, Nonspecific T wave abnormality, worse in Inferior leads T wave inversion less evident in Lateral leads Confirmed by DO Ladd Kyla ([id number]) on 10/25/2024 8:09:06 PM Fuad Winter MD ECG ORDERABLE S [facility] * (ABNORMAL) High Sensitivity Troponin T (10/25/2024 10:25 AM EST) High Sensitivity Troponin T 2,514(HH) <23 ng/L 10/25/2024 11:49 AM EST [facility] Comment:Recurring Critical R esult. Previously phoned. Delta (Change) 89(H) <3 10/25/2024 11:49 AM EST [facility] Comment:Decreased Plasma/Serum 10/25/2024 10:2 5 AM EST 10/25/2024 11:17 AM EST Bryant Gracia PA-C LAB BLOOD ORDERABLES [facility] [address] [place] [address], [address] [address] * (ABNORMAL) POCT Glucose, Fingerstick (10/25/2024 9:20 AM EST) [facility] POC Glucose 129(H) 65 - 99 mg/dL 10/25/2024 9:21 AM EST Blood specimen / Unknown 10/25/2024 9:20 AM EST 10/25/2024 9:21 AM EST Fuad Winter MD POINT OF CARE TEST ORDERABLES HOSPITAL LAB See Below * CREATINE KINASE (CK) (10/25/2024 8:27 AM EST) [facility] Creatine Kinase (CK) 76 24 - 204 U/L 10/25/2024 10:25 AM EST [facility] Plasma/Serum 10/25/2024 8:27 AM EST 10/25/2024 9:16 AM EST Neymar Mcfarland MD LAB BLOOD ORDERAB LES Performing Organization Address [facility] [place] [address], [place] [address] * (ABNORMAL) High Sensitivity Troponin T (10/25/2024 8:27 AM EST) [facility] High Sensitivity Troponin T 2,603(HH) <23 ng/L 10/25/2024 10:25 AM EST [facility] Delta (Change) NO PREVIOUS RESULT <3 10/25/2024 10:25 AM EST [facility] Plasma/Serum 10/25/2024 8:27 AM EST 10/25/2024 9:16 AM EST Neymar Mcfarland MD LAB BLOOD ORDERAB LES Performing Organization Address [facility] [place] [address], [place] [address] * Phosphorus (AM) (10/25/2024 8:27 AM EST) [facility] Phosphorus 3.8 2.7 - 4.5 mg/dL 10/25/2024 10:25 AM [facility] Blood (Plasma/Serum) 10/25/2024 8:27 AM EST 10/25/2024 9:16 AM EST Neymar Mcfarland MD LAB BLOOD ORDERAB LES Performing Organization Address City/[facility]/[place] [address], [place] [address] * Magnesium (AM) (10/25/2024 8:27 AM EST) Magnesium 2.0 1.6 - 2.7 mg/dL 10/25/2024 10:25 AM [facility] Blood (Plasma/Serum) 10/25/2024 8:27 AM EST 10/25/2024 9:16 AM EST Neymar Mcfarland MD LAB BLOOD ORDERAB LES Performing Organization Address [facility] [place] [address], [place] [address] * (ABNORMAL) Basic Metabolic Panel (AM) (10/25/2024 8:27 AM EST) Glucose 123(H) 65 - 99 mg/dL 10/25/2024 10:25 AM [facility] Comment:Fasting: <100 mg/dL, Non-Fasting: <200 mg/dL (ADA 2005) Blood Urea Nitrogen (BUN) 64(H) 8 - 21 mg/dL 10/25/2024 10:25 AM [facility] Creatinine 3.9(H) 0.5 - 1.3 mg/dL 10/25/2024 10:25 AM [facility] eGFR 15(L) >59 10/25/2024 10:25 AM [facility] Comment:CKD-EPI (2020) in mL /min/1.73 sq meters. Sodium 141 136 - 145 mmol/L 10/25/2024 10:25 AM [facility] Potassium 4.6 3.4 - 5.3 mmol/L 10/25/2024 10:25 AM [facility] Chloride 104 98 - 107 mmol/L 10/25/2024 10:25 AM [facility] CO2 21(L) 22 - 33 mmol/L 10/25/2024 10:25 AM [facility] Anion Gap 16 7 - 17 10/25/2024 10:25 AM [facility] Calcium 7.8(L) 8.7 - 10.5 mg/dL 10/25/2024 10:25 AM [facility] BUN/Creatinine Ratio 16 10.0 - 25.0 Ratio 10/25/2024 10:25 AM [facility] Blood (Plasma/Serum) 10/25/2024 8:27 AM EST 10/25/2024 9:16 AM EST Neymar Mcfarland MD LAB BLOOD ORDERAB LES Performing Organization Address City/State/[facility] [place] [address], [place] [address] * (ABNORMAL) Complete Blood Count WITHOUT Differential - in AM (10/25/2024 8:27 AM EST) White Blood Cell Count 12.5(H) 4.0 - 11.0 Thou/uL 10/25/2024 9:39 AM [facility] Platelet Count 361 150 - 450 Thou/uL 10/25/2024 9:39 AM [facility] Hemoglobin 9.2(L) 13.0 - 17.7 g/dL 10/25/2024 9:39 AM [facility] Hematocrit 29.9(L) 39.0 - 54.0 % 10/25/2024 9:39 AM [facility] Red Blood Cell Count 3.01(L) 4.50 - 6.20 Mil/uL 10/25/2024 9:39 AM [facility] MCV 99 80 - 100 fL 10/25/2024 9:39 AM [facility] MCH 30.6 27.0 - 31.0 pg 10/25/2024 9:39 AM [facility] MCHC 30.8 30.0 - 36.0 g/dL 10/25/2024 9:39 AM [facility] RDW 16.7(H) 11.5 - 14.5 % 10/25/2024 9:39 AM [facility] MPV 11.3 7.5 - 12.5 fL 10/25/2024 9:39 AM [facility] Blood Blood specimen / Unknown 10/25/2024 8:27 AM EST 10/25/2024 9:16 AM EST Neymar Mcfarland MD LAB BLOOD ORDERAB LES Performing Organization Address City/State/[facility] [place] [address], [place] [address] * Heparin Assay (Anti Xa) (10/25/2024 5:21 AM EST) Anti Xa 0.51 IU/mL 10/25/2024 5:55 AM [facility] Comment: (NOTE) Heparin Thromboembolic/Standard/Full Dose Protocol: Therapeutic Range: ? Age 18+: ? 0.30 - 0.70 IU/mL ? Age 0 - 17: ?? 0.35 - 0.70 IU/mL ? Heparin Cardiac/Low Dose Protocol: ? Therapeutic Range: ? 0.30 - 0.50 IU/mL ? Low Molecular Weight Heparin: ? Therapeutic Range: ? Age 18+: ? 0.50 - 1.50 IU/mL ? Age 0 - 17: ?? 0.50 - 1.00 ??IU/mL ? Anticoagulant IV HEPARIN, UNFRACTIONATED 10/24/2024 10:54 PM EST Blood Plasma specimen / Unknown 10/25/2024 5:21 AM EST 10/25/2024 5:40 AM EST Neymar Mcfarland MD LAB BLOOD ORDERAB LES Performing Organization Address [facility] [place] [address], [place] [address] * (ABNORMAL) POCT Glucose, Fingerstick (10/25/2024 5:15 AM EST) Pathologist [facility] POC Glucose 115(H) 65 - 99 mg/dL 10/25/2024 5:15 AM EST Blood specimen / Unknown 10/25/2024 5:15 AM EST 10/25/2024 5:16 AM EST Fuad Winter MD POINT OF CARE TEST ORDERABLES Performing Organization Address [facility] Co de Phone Number HOSPITAL LAB See Below * (ABNORMAL) POCT Glucose, Fingerstick (10/25/2024 1:03 AM EST) POC Glucose 125(H) 65 - 99 mg/dL 10/25/2024 1:03 AM EST Blood specimen / Unknown 10/25/2024 1:03 AM EST 10/25/2024 1:04 AM EST Fuad Winter MD POINT OF CARE TEST ORDERABLES HOSPITAL LAB See Below * Heparin Assay (Anti Xa) (10/24/2024 9:57 PM EST) Anti Xa 0.58 IU/mL 10/24/2024 10:50 PM EST [facility] Comment: (NOTE) Heparin Thromboembolic/Standard/Full Dose Protocol: Therapeutic Range: ? Age 18+: ? 0.30 - 0.70 IU/mL ? Age 0 - 17: ?? 0.35 - 0.70 IU/mL ? Heparin Cardiac/Low Dose Protocol: ? Therapeutic Range: ? 0.30 - 0.50 IU/mL ? Low Molecular Weight Heparin: ? Therapeutic Range: ? Age 18+: ? 0.50 - 1.50 IU/mL ? Age 0 - 17: ?? 0.50 - 1.00 ??IU/mL ? Anticoagulant IV HEPARIN, UNFRACTIONATED 10/24/2024 5:22 PM EST Blood Plasma specimen / Unknown 10/24/2024 9:57 PM EST 10/24/2024 10:35 PM EST Neymar Mcfarland MD LAB BLOOD ORDERAB LES Performing Organization Address [facility] [place] [address], [place] [address] * (ABNORMAL) POCT Glucose, Fingerstick (10/24/2024 8:23 PM EST) Pathologist [facility] POC Glucose 211(H) 65 - 99 mg/dL 10/24/2024 8:24 PM EST Blood specimen / Unknown 10/24/2024 8:23 PM EST 10/24/2024 8:24 PM EST Fuad Winter MD POINT OF CARE TEST ORDERABLES Performing Organization Address [facility] de Phone Number HOSPITAL LAB See Below * Heparin Assay (Anti Xa) (10/24/2024 4:14 PM EST) Pathologist [facility] Anti Xa 0.56 IU/mL 10/24/2024 5:08 PM EST [facility] Comment: (NOTE) Heparin Thromboembolic/Standard/Full Dose Protocol: Therapeutic Range: ? Age 18+: ? 0.30 - 0.70 IU/mL ? Age 0 - 17: ?? 0.35 - 0.70 IU/mL ? Heparin Cardiac/Low Dose Protocol: ? Therapeutic Range: ? 0.30 - 0.50 IU/mL ? Low Molecular Weight Heparin: ? Therapeutic Range: ? Age 18+: ? 0.50 - 1.50 IU/mL ? Age 0 - 17: ?? 0.50 - 1.00 ??IU/mL ? Anticoagulant IV HEPARIN, UNFRACTIONATED 10/24/2024 11:27 AM EST Blood Plasma specimen / Unknown 10/24/2024 4:14 PM EST 10/24/2024 4:45 PM EST Neymar Mcfarland MD LAB BLOOD ORDERAB LES Performing Organization Address [facility] Co de Phone Number [address] [address], [address] [address] * (ABNORMAL) POCT Glucose, Fingerstick (10/24/2024 4:07 PM EST) POC Glucose 152(H) 65 - 99 mg/dL 10/24/2024 4:09 PM EST Blood specimen / Unknown 10/24/2024 4:07 PM EST 10/24/2024 4:09 PM EST Fuad Winter MD POINT OF CARE TEST ORDERABLES Performing Organization Address [facility] Co de Phone Number [facility] LAB See Below * (ABNORMAL) POCT Glucose, Fingerstick (10/24/2024 11:13 AM EST) POC Glucose 158(H) 65 - 99 mg/dL 10/24/2024 11:14 AM EST Blood specimen / Unknown 10/24/2024 11:13 AM EST 10/24/2024 11:14 AM EST Fuad Winter MD POINT OF CARE TEST ORDERABLES Performing Organization Address [facility] Phone Number [facility] LAB See Below * XR Chest 1 view-Portable (10/24/2024 10:12 AM EST) Anatomical Region Laterality Modality Chest Computed Radiogr aphy 10/24/2024 9:29 AM EST Impressions 10/25/2024 2:01 PM EST Worsening CHF with associated alveolar pulmonary edema as above. Narrative 10/25/2024 2:01 PM EST EXAMINATION: XR CHEST CLINICAL INFORMATION: Concerns for pulm edema. COMPARISON: XR Chest 10/18/2024 TECHNIQUE: Semiupright 9:30 AM view of the chest was obtained. FINDINGS: Extensive alveolar pulmonary edema has mildly progressed bilaterally. Hazy densities at both bases suggests increasing small to moderate pleural effusions. No focal airspace disease. Chronic deformity right shoulder again noted. Heart size remains enlarged. Procedure Note Tal Devries MD - 10/25/2024 EXAMINATION: XR CHEST CLINICAL INFORMATION: Concerns for pulm edema. COMPARISON: XR Chest 10/18/2024 TECHNIQUE: Semiupright 9:30 AM view of the chest was obtained. FINDINGS: Extensive alveolar pulmonary edema has mildly progressed bilaterally. Hazy densities at both bases suggests increasing small to moderate pleural effusions. No focal airspace disease. Chronic deformity right shoulder again noted. Heart size remains enlarged. IMPRESSION: Worsening CHF with associated alveolar pulmonary edema as above. Neymar Mcfarland MD IMG DIAGNOSTIC IM AGING ORDERABLES * (ABNORMAL) POCT Glucose, Fingerstick (10/24/2024 8:39 AM EST) Pathologist [facility] [place] POC Glucose 159(H) 65 - 99 mg/dL 10/24/2024 9:03 AM EST Blood specimen / Unknown 10/24/2024 8:39 AM EST 10/24/2024 9:03 AM EST Fuad Winter MD POINT OF CARE TEST ORDERABLES Performing Organization Address City/[facility]/ZIP Co de Phone Number HOSPITAL LAB See Below * (ABNORMAL) B-Hydroxybutyrate (10/24/2024 7:11 AM EST) [facility] B-Hydroxybutyrate 2.36(H) <0.28 mmol/L 10/24/2024 10:30 AM EST [facility] Comment: In the presence of uncontrolled diabetes, serum beta-hydroxybutyrate levels greater than or equal to 3.80 mmol/L (patients age 16 and over) or greater than or equal to 3.00 mmol/L (patients under age 16) support a clinical diagnosis of Diabetic Ketoacidosis (DKA) - Ref: Diabetes Care 31: 643 (2007). Plasma/Serum 10/24/2024 7:11 AM EST 10/24/2024 7:48 AM EST Adilia Woo MD LAB BLOOD ORDERABLES Performing Organization Address [facility]/[place] [address], [place] [address] * Heparin Assay (Anti Xa) (10/24/2024 7:11 AM EST) Anti Xa 0.17 IU/mL 10/24/2024 8:02 AM EST [facility] Comment: (NOTE) Heparin Thromboembolic/Standard/Full Dose Protocol: Therapeutic Range: ? Age 18+: ? 0.30 - 0.70 IU/mL ? Age 0 - 17: ?? 0.35 - 0.70 IU/mL ? Heparin Cardiac/Low Dose Protocol: ? Therapeutic Range: ? 0.30 - 0.50 IU/mL ? Low Molecular Weight Heparin: ? Therapeutic Range: ? Age 18+: ? 0.50 - 1.50 IU/mL ? Age 0 - 17: ?? 0.50 - 1.00 ??IU/mL ? Anticoagulant IV HEPARIN, UNFRACTIONATED 10/23/2024 11:00 PM EST Blood Plasma specimen / Unknown 10/24/2024 7:11 AM EST 10/24/2024 7:48 AM EST Adilia Woo MD LAB BLOOD ORDERABLES Performing Organization Address [facility] [place] [address], [place] [address] * Phosphorus (AM) (10/24/2024 7:11 AM EST) Phosphorus 4.5 2.7 - 4.5 mg/dL 10/24/2024 8:15 AM EST [facility] Blood (Plasma/Serum) 10/24/2024 7:11 AM EST 10/24/2024 7:48 AM EST Neymar Mcfarlnad MD LAB BLOOD ORDERAB LES Performing Organization Address [facility] [place] [address], [place] [address] * Magnesium (AM) (10/24/2024 7:11 AM EST) Magnesium 1.8 1.6 - 2.7 mg/dL 10/24/2024 8:15 AM [facility] Blood (Plasma/Serum) 10/24/2024 7:11 AM EST 10/24/2024 7:48 AM EST Neymar Mcfarland MD LAB BLOOD ORDERAB LES Performing Organization Address City/[facility] [place] [address], [place] [address] * (ABNORMAL) Basic Metabolic Panel (AM) (10/24/2024 7:11 AM EST) Glucose 149(H) 65 - 99 mg/dL 10/24/2024 8:15 AM EST [facility] Comment:Fasting: <100 mg/dL, Non-Fasting: <200 mg/dL (ADA 2005) Blood Urea Nitrogen (BUN) 68(H) 8 - 21 mg/dL 10/24/2024 8:15 AM [facility] Creatinine 4.0(H) 0.5 - 1.3 mg/dL 10/24/2024 8:15 AM [facility] eGFR 14(L) >59 10/24/2024 8:15 AM [facility] Comment:CKD-EPI (2020) in mL /min/1.73 sq meters. Sodium 143 136 - 145 mmol/L 10/24/2024 8:15 AM [facility] Potassium 4.9 3.4 - 5.3 mmol/L 10/24/2024 8:15 AM [facility] Chloride 105 98 - 107 mmol/L 10/24/2024 8:15 AM [facility] CO2 19(L) 22 - 33 mmol/L 10/24/2024 8:15 AM [facility] Anion Gap 19(H) 7 - 17 10/24/2024 8:15 AM [facility] Calcium 7.8(L) 8.7 - 10.5 mg/dL 10/24/2024 8:15 AM [facility] BUN/Creatinine Ratio 17 10.0 - 25.0 Ratio 10/24/2024 8:15 AM [facility] Blood (Plasma/Serum) 10/24/2024 7:11 AM EST 10/24/2024 7:48 AM EST Neymar Mcfarland MD [place] [address], [place] [address] * (ABNORMAL) Complete Blood Count WITHOUT Differential - in AM (10/24/2024 7:11 AM EST) White Blood Cell Count 12.4(H) 4.0 - 11.0 Thou/uL 10/24/2024 7:58 AM [facility] Platelet Count 360 150 - 450 Thou/uL 10/24/2024 7:58 AM [facility] Hemoglobin 9.3(L) 13.0 - 17.7 g/dL 10/24/2024 7:58 AM [facility] Hematocrit 30.1(L) 39.0 - 54.0 % 10/24/2024 7:58 AM [facility] Red Blood Cell Count 3.06(L) 4.50 - 6.20 Mil/uL 10/24/2024 7:58 AM [facility] MCV 98 80 - 100 fL 10/24/2024 7:58 AM [facility] MCH 30.4 27.0 - 31.0 pg 10/24/2024 7:58 AM [facility] MCHC 30.9 30.0 - 36.0 g/dL 10/24/2024 7:58 AM [facility] RDW 16.8(H) 11.5 - 14.5 % 10/24/2024 7:58 AM [facility] MPV 11.3 7.5 - 12.5 fL 10/24/2024 7:58 AM [facility] Blood Blood specimen / Unknown 10/24/2024 7:11 AM EST 10/24/2024 7:48 AM EST Neymar Mcfarland MD LAB BLOOD ORDERAB LES Performing Organization Address City/[facility]/[place] [address], [place] [address] * Phosphorus (Early AM) (10/24/2024 3:01 AM EST) Phosphorus 3.8 2.7 - 4.5 mg/dL 10/24/2024 3:36 AM [facility] Blood (Plasma/Serum) 10/24/2024 3:01 AM EST 10/24/2024 3:12 AM EST Macy Adam [place] [address], [place] [address] * Magnesium (Routine) (10/24/2024 3:01 AM EST) Magnesium 1.8 1.6 - 2.7 mg/dL 10/24/2024 3:36 AM [facility] Blood (Plasma/Serum) 10/24/2024 3:01 AM EST 10/24/2024 3:12 AM EST Macy Adam [place] [address], [place] [address] * (ABNORMAL) Basic Metabolic Panel (Routine) (10/24/2024 3:01 AM EST) Glucose 128(H) 65 - 99 mg/dL 10/24/2024 3:36 AM [facility] Comment:Fasting: <100 mg/dL, Non-Fasting: <200 mg/dL (ADA 2005) Blood Urea Nitrogen (BUN) 67(H) 8 - 21 mg/dL 10/24/2024 3:36 AM [facility] Creatinine 3.8(H) 0.5 - 1.3 mg/dL 10/24/2024 3:36 AM [facility] eGFR 15(L) >59 10/24/2024 3:36 AM [facility] Comment:CKD-EPI (2020) in mL /min/1.73 sq meters. Sodium 143 136 - 145 mmol/L 10/24/2024 3:36 AM [facility] Potassium 4.4 3.4 - 5.3 mmol/L 10/24/2024 3:36 AM [facility] Chloride 107 98 - 107 mmol/L 10/24/2024 3:36 AM [facility] CO2 18(L) 22 - 33 mmol/L 10/24/2024 3:36 AM [facility] Anion Gap 18(H) 7 - 17 10/24/2024 3:36 AM [facility] Calcium 7.4(L) 8.7 - 10.5 mg/dL 10/24/2024 3:36 AM [facility] BUN/Creatinine Ratio 18 10.0 - 25.0 Ratio 10/24/2024 3:36 AM EST [facility] Blood (Plasma/Serum) 10/24/2024 3:01 AM EST 10/24/2024 3:12 AM EST Macy Adam DO LAB BLOOD ORDERABLE S Performing Organization Address [facility] Co de Phone Number [facility] [address] [place] [address], [address] [address] * (ABNORMAL) POCT Glucose, Fingerstick (10/24/2024 1:53 AM EST) POC Glucose 155(H) 65 - 99 mg/dL 10/24/2024 3:46 AM EST Blood specimen / Unknown 10/24/2024 1:53 AM EST 10/24/2024 3:46 AM EST Fuad Winter MD POINT OF CARE TEST ORDERABLES Performing Organization Address [facility] Co de Phone Number HOSPITAL LAB See Below * Heparin Assay (Anti Xa) (10/23/2024 10:13 PM EST) Anti Xa 0.34 IU/mL 10/23/2024 11:19 PM EST [facility] Comment: (NOTE) Heparin Thromboembolic/Standard/Full Dose Protocol: Therapeutic Range: ? Age 18+: ? 0.30 - 0.70 IU/mL ? Age 0 - 17: ?? 0.35 - 0.70 IU/mL ? Heparin Cardiac/Low Dose Protocol: ? Therapeutic Range: ? 0.30 - 0.50 IU/mL ? Low Molecular Weight Heparin: ? Therapeutic Range: ? Age 18+: ? 0.50 - 1.50 IU/mL ? Age 0 - 17: ?? 0.50 - 1.00 ??IU/mL ? Anticoagulant IV HEPARIN, UNFRACTIONATED 10/23/2024 5:41 PM EST Blood Plasma specimen / Unknown 10/23/2024 10:13 PM EST 10/23/2024 10:39 PM EST Neymar Mcfarland MD LAB BLOOD ORDERAB LES Performing Organization Address [facility] [place] [address], [place] [address] * (ABNORMAL) POCT Glucose, Fingerstick (10/23/2024 9:02 PM EST) POC Glucose 155(H) 65 - 99 mg/dL 10/23/2024 9:02 PM EST Blood specimen / Unknown 10/23/2024 9:02 PM EST 10/23/2024 9:03 PM EST Fuad Winter MD POINT OF CARE TEST ORDERABLES HOSPITAL LAB See Below * (ABNORMAL) POCT Glucose, Fingerstick (10/23/2024 6:22 PM EST) Pathologist [facility] POC Glucose 168(H) 65 - 99 mg/dL 10/23/2024 6:23 PM EST Blood specimen / Unknown 10/23/2024 6:22 PM EST 10/23/2024 6:23 PM EST Fuad Winter MD POINT OF CARE TEST ORDERABLES Performing Organization Address City/[facility]/ZIP Co de Phone Number HOSPITAL LAB See Below * Magnesium (STAT) (10/23/2024 6:02 PM EST) [facility] Magnesium 1.8 1.6 - 2.7 mg/dL 10/23/2024 7:21 PM EST [facility] Blood (Plasma/Serum) 10/23/2024 6:02 PM EST 10/23/2024 6:47 PM EST Adam Mullen MD LAB BLOOD ORDERABL ES Performing Organization Address [facility] [place] [address], [place] [address] * Phosphorus (STAT) (10/23/2024 6:02 PM EST) [facility] Phosphorus 3.9 2.7 - 4.5 mg/dL 10/23/2024 7:21 PM EST [facility] Blood (Plasma/Serum) 10/23/2024 6:02 PM EST 10/23/2024 6:47 PM EST Adam Mullen MD LAB BLOOD ORDERABL ES Performing Organization Address [facility] [place] [address], [place] [address] * (ABNORMAL) Basic Metabolic Panel (STAT) (10/23/2024 6:02 PM EST) Glucose 173(H) 65 - 99 mg/dL 10/23/2024 7:21 PM [facility] Comment:Fasting: <100 mg/dL, Non-Fasting: <200 mg/dL (ADA 2004) Blood Urea Nitrogen (BUN) 71(H) 8 - 21 mg/dL 10/23/2024 7:21 PM [facility] Creatinine 4.1(H) 0.5 - 1.3 mg/dL 10/23/2024 7:21 PM [facility] eGFR 14(L) >59 10/23/2024 7:21 PM [facility] Comment:CKD-EPI (2020) in mL /min/1.73 sq meters. Sodium 145 136 - 145 mmol/L 10/23/2024 7:21 PM [facility] Potassium 5.0 3.4 - 5.3 mmol/L 10/23/2024 7:21 PM [facility] Chloride 109(H) 98 - 107 mmol/L 10/23/2024 7:21 PM [facility] CO2 21(L) 22 - 33 mmol/L 10/23/2024 7:21 PM [facility] Anion Gap 15 7 - 17 10/23/2024 7:21 PM [facility] Calcium 7.0(L) 8.7 - 10.5 mg/dL 10/23/2024 7:21 PM [facility] BUN/Creatinine Ratio 17 10.0 - 25.0 Ratio 10/23/2024 7:21 PM [facility] Blood (Plasma/Serum) 10/23/2024 6:02 PM EST 10/23/2024 6:47 PM EST Adam Mullen MD [place] [address], [address] [address] * ECG 12 lead (STAT) (10/23/2024 5:43 PM EST) Ventricular rate 73 BPM EKG [facility] Atrial rate 73 BPM EKG [facility] P-R interval 148 ms EKG [facility] QRS duration 80 ms EKG [facility] Q-T interval 460 ms EKG [facility] QTC calculation (Bazett) 507 ms EKG [facility] P axis 54 degrees EKG [facility] R axis 66 degrees EKG [facility] T axis 152 degrees EKG [facility] 10/23/2024 5:43 PM EST Narrative EKG [facility] - 10/24/2024 7:46 AM EST Normal sinus rhythm Nonspecific T wave abnormality Prolonged QT Abnormal ECG Confirmed by MD Wade John ([id number]) on 10/24/2024 7:46:04 AM Procedure Note Raciel Wade MD - 10/24/2024 Normal sinus rhythm Nonspecific T wave abnormality Prolonged QT Abnormal ECG Confirmed by MD Wade John ([id number]) on 10/24/2024 7:46:04 AM Bryant Gracia PA-C ECG ORDERABLES [facility] * Heparin Assay (Anti Xa) (10/23/2024 3:53 PM EST) Anti Xa 0.42 IU/mL 10/23/2024 5:30 PM EST [facility] Comment: (NOTE) Heparin Thromboembolic/Standard/Full Dose Protocol: Therapeutic Range: ? Age 18+: ? 0.30 - 0.70 IU/mL ? Age 0 - 17: ?? 0.35 - 0.70 IU/mL ? Heparin Cardiac/Low Dose Protocol: ? Therapeutic Range: ? 0.30 - 0.50 IU/mL ? Low Molecular Weight Heparin: ? Therapeutic Range: ? Age 18+: ? 0.50 - 1.50 IU/mL ? Age 0 - 17: ?? 0.50 - 1.00 ??IU/mL ? Anticoagulant IV HEPARIN, UNFRACTIONATED 10/23/2024 10:47 AM EST Blood Plasma specimen / Unknown 10/23/2024 3:53 PM EST 10/23/2024 5:14 PM EST Neymar Mcfarland MD LAB BLOOD ORDERAB LES Performing Organization Address [facility] [place] [address], [place] [address] * (ABNORMAL) POCT Glucose, Fingerstick (10/23/2024 12:59 PM EST) POC Glucose 158(H) 65 - 99 mg/dL 10/23/2024 1:00 PM EST Blood specimen / Unknown 10/23/2024 12:59 PM EST 10/23/2024 1:00 PM EST Fuad Winter MD POINT OF CARE TEST ORDERABLES HOSPITAL LAB See Below * Albumin (10/23/2024 10:31 AM EST) Albumin 3.5 3.4 - 4.8 g/dL 10/23/2024 12:13 PM EST [facility] Blood (Plasma/Serum) 10/23/2024 10:31 AM EST 10/23/2024 11:36 AM EST Neymar Mcfarland MD LAB BLOOD ORDERAB LES Performing Organization Address [facility] [place] [address], [place] [address] * (ABNORMAL) Calcium, Ionized (10/23/2024 10:31 AM EST) Calcium, Ionized 0.88(L) 1.17 - 1.33 mmol/L 10/23/2024 12:16 PM [facility] Blood Blood specimen / Unknown 10/23/2024 10:31 AM EST 10/23/2024 11:36 AM EST Neymar Mcfarland MD LAB BLOOD ORDERAB LES Performing Organization Address [facility] [place] [address], [place] [address] * (ABNORMAL) Calcium, Total (10/23/2024 10:31 AM EST) Calcium 7.4(L) 8.7 - 10.5 mg/dL 10/23/2024 12:13 PM EST [facility] Blood (Plasma/Serum) 10/23/2024 10:31 AM EST 10/23/2024 11:36 AM EST Neymar Mcfarland MD LAB BLOOD ORDERAB LES Performing Organization Address City/[facility]/[place] [address], [address] [address] * (ABNORMAL) PTH, Intact (10/23/2024 10:31 AM EST) PTH, Intact 579(H) 15 - 65 pg/mL 10/23/2024 12:23 PM [facility] Blood (Plasma/Serum) 10/23/2024 10:31 AM EST 10/23/2024 11:36 AM EST Neymar Mcfarland MD LAB BLOOD ORDERAB LES [address] [address], [place] [address] * POCT Glucose, Fingerstick (10/23/2024 8:36 AM EST) POC Glucose 82 65 - 99 mg/dL 10/23/2024 8:37 AM EST Blood specimen / Unknown 10/23/2024 8:36 AM EST 10/23/2024 8:37 AM EST Fuad Winter MD POINT OF CARE TEST ORDERABLES HOSPITAL LAB See Below * (ABNORMAL) LIPID PANEL (10/23/2024 6:05 AM EST) Cholesterol, Total 110 <200 mg/dL 2024 8:30 AM [facility] Triglycerides 141 <150 mg/dL 10/23/2024 8:30 AM [facility] Cholesterol, HDL 30(L) >39 mg/dL 10/23/19 8:30 AM [facility] Estimated LDL 52 <130 mg/dL 10/23/2024 8:30 AM [facility] Comment: NCEP Guidelines: ?< 100 mg/dL ??Optimal 100 - 129 mg/dL ??Near Optimal/Above Optimal 130 - 159 mg/dL ??Borderline High 160 - 189 mg/dL ??High ??>/= 190 mg/dL ??Very High Cholesterol/HDL Ratio 3.7 0.0 - 5.0 Ratio 10/23/2024 8:30 AM [facility] Comment: Relative Risk ? Ratio - Male ? Ratio - Female ?0.5 ?3.4 ?3.3 ?1.0 ?5.0 ?4.4 ?2.0 ?9.6 ?7.1 ?3.0 ? 23.4 ? 11.0 Plasma/Serum 10/23/2024 6:05 AM EST 10/23/2024 7:46 AM EST Adilia Woo MD LAB BLOOD ORDERABLES Performing Organization Address City/State/[facility] [place] [address], [place] [address] * Heparin Assay (Anti Xa) (10/23/2024 6:05 AM EST) Anti Xa 0.54 IU/mL 10/23/2024 8:02 AM [facility] Comment: (NOTE) Heparin Thromboembolic/Standard/Full Dose Protocol: Therapeutic Range: ? Age 18+: ? 0.30 - 0.70 IU/mL ? Age 0 - 17: ?? 0.35 - 0.70 IU/mL ? Heparin Cardiac/Low Dose Protocol: ? Therapeutic Range: ? 0.30 - 0.50 IU/mL ? Low Molecular Weight Heparin: ? Therapeutic Range: ? Age 18+: ? 0.50 - 1.50 IU/mL ? Age 0 - 17: ?? 0.50 - 1.00 ??IU/mL ? Anticoagulant IV HEPARIN, UNFRACTIONATED 10/22/2024 11:00 PM EST Blood Plasma specimen / Unknown 10/23/2024 6:05 AM EST 10/23/2024 7:46 AM EST Adilia Woo MD LAB BLOOD ORDERABLES Performing Organization Address City/State/[facility] Co de Phone Number [facility] [address] [place] [address], [address] [address] * Phosphorus (AM) (10/23/2024 6:05 AM EST) Phosphorus 3.9 2.7 - 4.5 mg/dL 10/23/2024 8:30 AM [facility] Blood (Plasma/Serum) 10/23/2024 6:05 AM EST 10/23/2024 7:46 AM EST Neymar Mcfarland MD LAB BLOOD ORDERAB LES Performing Organization Address [facility] [place] [address], [place] [address] * Magnesium (AM) (10/23/2024 6:05 AM EST) Magnesium 1.8 1.6 - 2.7 mg/dL 10/23/2024 8:30 AM [facility] Blood (Plasma/Serum) 10/23/2024 6:05 AM EST 10/23/2024 7:46 AM EST Neymar Mcfarland MD LAB BLOOD ORDERAB LES Performing Organization Address [facility] [place] [address], [place] [address] * (ABNORMAL) Basic Metabolic Panel (AM) (10/23/2024 6:05 AM EST) Glucose 66 65 - 99 mg/dL 10/23/2024 8:30 AM [facility] Comment:Fasting: <100 mg/dL, Non-Fasting: <200 mg/dL (ADA 2005) Blood Urea Nitrogen (BUN) 74(H) 8 - 21 mg/dL 10/23/2024 8:30 AM [facility] Creatinine 4.1(H) 0.5 - 1.3 mg/dL 10/23/2024 8:30 AM [facility] eGFR 14(L) >59 10/23/2024 8:30 AM [facility] Comment:CKD-EPI (2020) in mL /min/1.73 sq meters. Sodium 147(H) 136 - 145 mmol/L 10/23/2024 8:30 AM [facility] Potassium 4.0 3.4 - 5.3 mmol/L 10/23/2024 8:30 AM [facility] Chloride 110(H) 98 - 107 mmol/L 10/23/2024 8:30 AM [facility] CO2 18(L) 22 - 33 mmol/L 10/23/2024 8:30 AM [facility] Anion Gap 19(H) 7 - 17 10/23/2024 8:30 AM [facility] Calcium 7.3(L) 8.7 - 10.5 mg/dL 10/23/2024 8:30 AM [facility] BUN/Creatinine Ratio 18 10.0 - 25.0 Ratio 10/23/2024 8:30 AM [facility] Blood (Plasma/Serum) 10/23/2024 6:05 AM EST 10/23/2024 7:46 AM EST Neymar Mcfarland MD LAB BLOOD ORDERAB LES Performing Organization Address City/State/[facility] [place] [address], [place] [address] * (ABNORMAL) Complete Blood Count WITHOUT Differential - in AM (10/23/2024 6:05 AM EST) White Blood Cell Count 11.2(H) 4.0 - 11.0 Thou/uL 10/23/2024 8:29 AM [facility] Platelet Count 374 150 - 450 Thou/uL 10/23/2024 8:29 AM [facility] Hemoglobin 9.6(L) 13.0 - 17.7 g/dL 10/23/2024 8:29 AM [facility] Hematocrit 30.5(L) 39.0 - 54.0 % 10/23/2024 8:29 AM [facility] Red Blood Cell Count 3.17(L) 4.50 - 6.20 Mil/uL 10/23/2024 8:29 AM [facility] MCV 96 80 - 100 fL 10/23/2024 8:29 AM [facility] MCH 30.3 27.0 - 31.0 pg 10/23/2024 8:29 AM [facility] MCHC 31.5 30.0 - 36.0 g/dL 10/23/2024 8:29 AM EST [facility] RDW 16.4(H) 11.5 - 14.5 % 10/23/2024 8:29 AM EST [facility] MPV 11.6 7.5 - 12.5 fL 10/23/2024 8:29 AM EST [facility] Blood Blood specimen / Unknown 10/23/2024 6:05 AM EST 10/23/2024 7:46 AM EST Neymar Mcfarland MD [place] [address], [place] [address] * POCT Glucose, Fingerstick (10/23/2024 1:59 AM EST) POC Glucose 83 65 - 99 mg/dL 10/23/2024 2:00 AM EST Blood specimen / Unknown 10/23/2024 1:59 AM EST 10/23/2024 2:00 AM EST Fuad Winter MD POINT OF CARE TEST ORDERABLES Performing Organization Address City/[facility]/ZIP Co de Phone Number [facility] LAB See Below * (ABNORMAL) POCT Glucose, Fingerstick (10/22/2024 8:40 PM EST) POC Glucose 145(H) 65 - 99 mg/dL 10/22/2024 8:53 PM EST Blood specimen / Unknown 10/22/2024 8:40 PM EST 10/22/2024 8:53 PM EST Fuad Winter MD POINT OF CARE TEST ORDERABLES HOSPITAL LAB See Below * (ABNORMAL) POCT Glucose, Fingerstick (10/22/2024 6:12 PM EST) POC Glucose 165(H) 65 - 99 mg/dL 10/22/2024 6:12 PM EST Blood specimen / Unknown 10/22/2024 6:12 PM EST 10/22/2024 6:13 PM EST Fuad Winter MD POINT OF CARE TEST ORDERABLES Performing Organization Address [facility] LAB See Below * (ABNORMAL) POCT Glucose, Fingerstick (10/22/2024 1:10 PM EST) POC Glucose 154(H) 65 - 99 mg/dL 10/22/2024 1:10 PM EST Blood specimen / Unknown 10/22/2024 1:10 PM EST 10/22/2024 1:11 PM EST Fuad Winter MD POINT OF CARE TEST ORDERABLES Performing Organization Address [facility] LAB See Below * (ABNORMAL) POCT Glucose, Fingerstick (10/22/2024 9:10 AM EST) POC Glucose 139(H) 65 - 99 mg/dL 10/22/2024 9:11 AM EST Blood specimen / Unknown 10/22/2024 9:10 AM EST 10/22/2024 9:11 AM EST Fuad Winter MD POINT OF CARE TEST ORDERABLES Performing Organization Address [facility] Number [facility] LAB See Below * Heparin Assay (Anti Xa) (10/22/2024 8:12 AM EST) Anti Xa 0.37 IU/mL 10/22/2024 8:35 AM EST [facility] Comment: (NOTE) Heparin Thromboembolic/Standard/Full Dose Protocol: Therapeutic Range: ? Age 18+: ? 0.30 - 0.70 IU/mL ? Age 0 - 17: ?? 0.35 - 0.70 IU/mL ? Heparin Cardiac/Low Dose Protocol: ? Therapeutic Range: ? 0.30 - 0.50 IU/mL ? Low Molecular Weight Heparin: ? Therapeutic Range: ? Age 18+: ? 0.50 - 1.50 IU/mL ? Age 0 - 17: ?? 0.50 - 1.00 ??IU/mL ? Anticoagulant IV HEPARIN, UNFRACTIONATED 10/21/2024 11:01 PM EST Blood Plasma specimen / Unknown 10/22/2024 8:12 AM EST 10/22/2024 8:18 AM EST Adilia Woo MD LAB BLOOD ORDERABLES [facility] [address] [place] [address], [facility] [address] [place] [address] * (ABNORMAL) Complete Blood Count WITHOUT Differential - in AM (10/22/2024 8:12 AM EST) White Blood Cell Count 10.7 4.0 - 11.0 Thou/uL 10/22/2024 8:44 AM [facility] Platelet Count 337 150 - 450 Thou/uL 10/22/2024 8:44 AM [facility] Hemoglobin 9.4(L) 13.0 - 17.7 g/dL 10/22/2024 8:44 AM [facility] Hematocrit 30.3(L) 39.0 - 54.0 % 10/22/2024 8:44 AM [facility] Red Blood Cell Count 3.13(L) 4.50 - 6.20 Mil/uL 10/22/2024 8:44 AM [facility] MCV 97 80 - 100 fL 10/22/2024 8:44 AM [facility] MCH 30.0 27.0 - 31.0 pg 10/22/2024 8:44 AM [facility] MCHC 31.0 30.0 - 36.0 g/dL 10/22/2024 8:44 AM [facility] RDW 16.2(H) 11.5 - 14.5 % 10/22/2024 8:44 AM [facility] MPV 11.3 7.5 - 12.5 fL 10/22/2024 8:44 AM [facility] Blood Blood specimen / Unknown 10/22/2024 8:12 AM EST 10/22/2024 8:18 AM EST Adilia Woo MD LAB BLOOD ORDERABLES Performing Organization Address [facility] [place] [address], [place] [address] * Magnesium (AM) (10/22/2024 8:12 AM EST) Magnesium 1.7 1.6 - 2.7 mg/dL 10/22/2024 8:54 AM [facility] Blood (Plasma/Serum) 10/22/2024 8:12 AM EST 10/22/2024 8:18 AM EST Adilia Woo MD [place] [address], [place] [address] * (ABNORMAL) Basic Metabolic Panel (AM) (10/22/2024 8:12 AM EST) Glucose 124(H) 65 - 99 mg/dL 10/22/2024 8:54 AM [facility] Comment:Fasting: <100 mg/dL, Non-Fasting: <200 mg/dL (ADA 2004) Blood Urea Nitrogen (BUN) 82(H) 8 - 21 mg/dL 10/22/2024 8:54 AM [facility] Creatinine 4.3(H) 0.5 - 1.3 mg/dL 10/22/2024 8:54 AM [facility] eGFR 13(L) >59 10/22/2024 8:54 AM [facility] Comment:CKD-EPI (2020) in mL /min/1.73 sq meters. Sodium 145 136 - 145 mmol/L 10/22/2024 8:54 AM [facility] Potassium 4.4 3.4 - 5.3 mmol/L 10/22/2024 8:54 AM [facility] Chloride 110(H) 98 - 107 mmol/L 10/22/2024 8:54 AM [facility] CO2 17(L) 22 - 33 mmol/L 10/22/2024 8:54 AM [facility] Anion Gap 18(H) 7 - 17 10/22/2024 8:54 AM [facility] Calcium 7.1(L) 8.7 - 10.5 mg/dL 10/22/2024 8:54 AM [facility] BUN/Creatinine Ratio 19 10.0 - 25.0 Ratio 10/22/2024 8:54 AM [facility] Blood (Plasma/Serum) 10/22/2024 8:12 AM EST 10/22/2024 8:18 AM EST Adilia Woo MD [place] [address], [address] [place] [address] * (ABNORMAL) POCT Glucose, Fingerstick (10/22/2024 1:23 AM EST) POC Glucose 122(H) 65 - 99 mg/dL 10/22/2024 1:28 AM EST Blood specimen / Unknown 10/22/2024 1:23 AM EST 10/22/2024 1:28 AM EST Fuad Winter MD POINT OF CARE TEST ORDERABLES HOSPITAL LAB See Below * ECG 12 lead (10/21/2024 9:45 PM EST) Ventricular rate 80 BPM EKG [facility] Atrial rate 80 BPM EKG [facility] P-R interval 146 ms EKG [facility] QRS duration 86 ms EKG [facility] Q-T interval 438 ms EKG [facility] QTC calculation (Bazett) 506 ms EKG [facility] P axis 52 degrees EKG [facility] R axis 59 degrees EKG [facility] T axis 229 degrees EKG [facility] 10/21/2024 9:45 PM EST Narrative EKG [facility] - 10/22/2024 7:57 AM EST Normal sinus rhythm Septal infarct , age undetermined ST & T wave abnormality, consider lateral ischemia Prolonged QT Abnormal ECG When compared with ECG of 19-Oct-2024 00:02, Septal infarct is now Present T wave inversion less evident in Anterior leads QT has lengthened Confirmed by MD Johnson Komsu ([id number]) on 10/22/2024 7:57:16 AM Procedure Note Woodrow Johnson MD - 10/22/2024 Normal sinus rhythm Septal infarct , age undetermined ST & T wave abnormality, consider lateral ischemia Prolonged QT Abnormal ECG When compared with ECG of 19-Oct-2024 00:02, Septal infarct is now Present T wave inversion less evident in Anterior leads QT has lengthened Confirmed by MD Johnson Komsu ([id number]) on 10/22/2024 7:57:16 AM Angelica Hanson MD ECG ORDERABLES Performing Organization Address City/[facility] de Phone Number [facility] * (ABNORMAL) POCT Glucose, Fingerstick (10/21/2024 9:04 PM EST) POC Glucose 190(H) 65 - 99 mg/dL 10/21/2024 9:09 PM EST Blood specimen / Unknown 10/21/2024 9:04 PM EST 10/21/2024 9:09 PM EST Fuad Winter MD POINT OF CARE TEST ORDERABLES Performing Organization Address [facility] Number [facility] LAB See Below * (ABNORMAL) POCT Glucose, Fingerstick (10/21/2024 6:23 PM EST) POC Glucose 140(H) 65 - 99 mg/dL 10/21/2024 6:24 PM EST Blood specimen / Unknown 10/21/2024 6:23 PM EST 10/21/2024 6:24 PM EST Fuad Winter MD POINT OF CARE TEST ORDERABLES Performing Organization Address [facility] Number [facility] LAB See Below * (ABNORMAL) POCT Glucose, Fingerstick (10/21/2024 1:38 PM EST) POC Glucose 270(H) 65 - 99 mg/dL 10/21/2024 1:39 PM EST Blood specimen / Unknown 10/21/2024 1:38 PM EST 10/21/2024 1:39 PM EST Fuad Winter MD POINT OF CARE TEST ORDERABLES Performing Organization Address [facility] Phone Number [facility] LAB See Below * (ABNORMAL) POCT Glucose, Fingerstick (10/21/2024 12:24 PM EST) POC Glucose 242(H) 65 - 99 mg/dL 10/21/2024 12:24 PM EST Blood specimen / Unknown 10/21/2024 12:24 PM EST 10/21/2024 12:25 PM EST Fuad Winter MD POINT OF CARE TEST ORDERABLES HOSPITAL LAB See Below * Heparin Assay (Anti Xa) (10/21/2024 9:11 AM EST) Anti Xa 0.42 IU/mL 10/21/2024 9:49 AM EST [facility] Comment: (NOTE) Heparin Thromboembolic/Standard/Full Dose Protocol: Therapeutic Range: ? Age 18+: ? 0.30 - 0.70 IU/mL ? Age 0 - 17: ?? 0.35 - 0.70 IU/mL ? Heparin Cardiac/Low Dose Protocol: ? Therapeutic Range: ? 0.30 - 0.50 IU/mL ? Low Molecular Weight Heparin: ? Therapeutic Range: ? Age 18+: ? 0.50 - 1.50 IU/mL ? Age 0 - 17: ?? 0.50 - 1.00 ??IU/mL ? Anticoagulant IV HEPARIN, UNFRACTIONATED 10/21/2024 3:34 AM EST Blood Plasma specimen / Unknown 10/21/2024 9:11 AM EST 10/21/2024 9:35 AM EST Jessica Strange MD LAB BLOOD ORDERABLES Performing Organization Address [facility] [address], [place] [address] * (ABNORMAL) POCT Glucose, Fingerstick (10/21/2024 8:35 AM EST) [facility] POC Glucose 219(H) 65 - 99 mg/dL 10/21/2024 8:36 AM EST Blood specimen / Unknown 10/21/2024 8:35 AM EST 10/21/2024 8:36 AM EST Fuad Winter MD POINT OF CARE TEST ORDERABLES Performing Organization Address [facility] Phone Number HOSPITAL LAB See Below * (ABNORMAL) POCT Glucose, Fingerstick (10/21/2024 8:03 AM EST) POC Glucose 181(H) 65 - 99 mg/dL 10/21/2024 8:04 AM EST Blood specimen / Unknown 10/21/2024 8:03 AM EST 10/21/2024 8:04 AM EST Fuad Winter MD POINT OF CARE TEST ORDERABLES Performing Organization Address [facility] Co de Phone Number HOSPITAL LAB See Below * (ABNORMAL) Basic Metabolic Panel (Routine) (10/21/2024 3:09 AM EST) Glucose 193(H) 65 - 99 mg/dL 10/21/2024 3:41 AM [facility] Comment:Fasting: <100 mg/dL, Non-Fasting: <200 mg/dL (ADA 2004) Blood Urea Nitrogen (BUN) 83(H) 8 - 21 mg/dL 10/21/2024 3:41 AM [facility] Creatinine 4.3(H) 0.5 - 1.3 mg/dL 10/21/2024 3:41 AM [facility] eGFR 13(L) >59 10/21/2024 3:41 AM [facility] Comment:CKD-EPI (2020) in mL /min/1.73 sq meters. Sodium 140 136 - 145 mmol/L 10/21/2024 3:41 AM [facility] Potassium 4.5 3.4 - 5.3 mmol/L 10/21/2024 3:41 AM [facility] Chloride 109(H) 98 - 107 mmol/L 10/21/2024 3:41 AM [facility] CO2 15(L) 22 - 33 mmol/L 10/21/2024 3:41 AM [facility] Anion Gap 16 7 - 17 10/21/2024 3:41 AM [facility] Calcium 7.1(L) 8.7 - 10.5 mg/dL 10/21/2024 3:41 AM [facility] BUN/Creatinine Ratio 19 10.0 - 25.0 Ratio 10/21/2024 3:41 AM [facility] Blood (Plasma/Serum) 10/21/2024 3:09 AM EST 10/21/2024 3:13 AM EST Magdaleno Crowder MD [place] [address], [place] [address] * (ABNORMAL) Complete Blood Count WITHOUT Differential - Early AM (10/21/2024 3:09 AM EST) White Blood Cell Count 10.8 4.0 - 11.0 Thou/uL 10/21/2024 3:18 AM [facility] Platelet Count 299 150 - 450 Thou/uL 10/21/2024 3:18 AM [facility] Hemoglobin 8.9(L) 13.0 - 17.7 g/dL 10/21/2024 3:18 AM [facility] Hematocrit 28.9(L) 39.0 - 54.0 % 10/21/2024 3:18 AM [facility] Red Blood Cell Count 2.97(L) 4.50 - 6.20 Mil/uL 10/21/2024 3:18 AM [facility] MCV 97 80 - 100 fL 10/21/2024 3:18 AM [facility] MCH 30.0 27.0 - 31.0 pg 10/21/2024 3:18 AM [facility] MCHC 30.8 30.0 - 36.0 g/dL 10/21/2024 3:18 AM [facility] RDW 16.3(H) 11.5 - 14.5 % 10/21/2024 3:18 AM [facility] MPV 11.0 7.5 - 12.5 fL 10/21/2024 3:18 AM [facility] Blood Blood specimen / Unknown 10/21/2024 3:09 AM EST 10/21/2024 3:13 AM EST Magdaleno Crowder MD LAB BLOOD ORDERABLES Performing Organization Address City/State/[facility] [place] [address], [place] [address] * Heparin Assay (Anti Xa) (10/21/2024 3:09 AM EST) Anti Xa 0.35 IU/mL 10/21/2024 3:31 AM [facility] Comment: (NOTE) Heparin Thromboembolic/Standard/Full Dose Protocol: Therapeutic Range: ? Age 18+: ? 0.30 - 0.70 IU/mL ? Age 0 - 17: ?? 0.35 - 0.70 IU/mL ? Heparin Cardiac/Low Dose Protocol: ? Therapeutic Range: ? 0.30 - 0.50 IU/mL ? Low Molecular Weight Heparin: ? Therapeutic Range: ? Age 18+: ? 0.50 - 1.50 IU/mL ? Age 0 - 17: ?? 0.50 - 1.00 ??IU/mL ? Anticoagulant IV HEPARIN, UNFRACTIONATED 10/20/2024 9:13 PM EST Blood Plasma specimen / Unknown 10/21/2024 3:09 AM EST 10/21/2024 3:13 AM EST Jessica Strange MD LAB BLOOD ORDERABLES Performing Organization Address [facility]/State/[place] [address], [facility] [address] [place] [address] * (ABNORMAL) POCT Glucose, Fingerstick (10/21/2024 2:23 AM EST) POC Glucose 198(H) 65 - 99 mg/dL 10/21/2024 2:23 AM EST Blood specimen / Unknown 10/21/2024 2:23 AM EST 10/21/2024 2:24 AM EST Fuad Winter MD POINT OF CARE TEST ORDERABLES Performing Organization Address [facility] Phone Number HOSPITAL LAB See Below * (ABNORMAL) POCT Glucose, Fingerstick (10/20/2024 8:47 PM EST) POC Glucose 218(H) 65 - 99 mg/dL 10/20/2024 8:50 PM EST Blood specimen / Unknown 10/20/2024 8:47 PM EST 10/20/2024 8:50 PM EST Fuad Winter MD POINT OF CARE TEST ORDERABLES Performing Organization Address [facility] Number [facility] LAB See Below * Heparin Assay (Anti Xa) (10/20/2024 8:34 PM EST) Pathologist [facility] [place] Anti Xa 0.29 IU/mL 10/20/2024 9:00 PM EST [facility] Comment: (NOTE) Heparin Thromboembolic/Standard/Full Dose Protocol: Therapeutic Range: ? Age 18+: ? 0.30 - 0.70 IU/mL ? Age 0 - 17: ?? 0.35 - 0.70 IU/mL ? Heparin Cardiac/Low Dose Protocol: ? Therapeutic Range: ? 0.30 - 0.50 IU/mL ? Low Molecular Weight Heparin: ? Therapeutic Range: ? Age 18+: ? 0.50 - 1.50 IU/mL ? Age 0 - 17: ?? 0.50 - 1.00 ??IU/mL ? Anticoagulant IV HEPARIN, UNFRACTIONATED 10/20/2024 7:50 PM EST Blood Plasma specimen / Unknown 10/20/2024 8:34 PM EST 10/20/2024 8:40 PM EST Jessica Strange MD LAB BLOOD ORDERABLES Performing Organization Address City/State/[facility] [place] [address], [place] [address] * (ABNORMAL) POCT Glucose, Fingerstick (10/20/2024 5:51 PM EST) POC Glucose 175(H) 65 - 99 mg/dL 10/20/2024 5:52 PM EST Blood specimen / Unknown 10/20/2024 5:51 PM EST 10/20/2024 5:52 PM EST Fuad Winter MD POINT OF CARE TEST ORDERABLES Performing Organization Address [facility] Phone [facility] LAB See Below * (ABNORMAL) POCT Glucose, Fingerstick (10/20/2024 3:47 PM EST) POC Glucose 222(H) 65 - 99 mg/dL 10/20/2024 3:52 PM EST Blood specimen / Unknown 10/20/2024 3:47 PM EST 10/20/2024 3:52 PM EST Fuad Winter MD POINT OF CARE TEST ORDERABLES Performing Organization Address [facility] Phone Number [facility] LAB See Below * (ABNORMAL) POCT Glucose, Fingerstick (10/20/2024 11:43 AM EST) POC Glucose 210(H) 65 - 99 mg/dL 10/20/2024 11:45 AM EST Blood specimen / Unknown 10/20/2024 11:43 AM EST 10/20/2024 11:44 AM EST Fuad Winter MD POINT OF CARE TEST ORDERABLES Performing Organization Address [facility] LAB See Below * (ABNORMAL) Blood Gas, Venous (10/20/2024 10:39 AM EST) Pathologist [facility] [place] Venous Blood PH 7.29(L) 7.33 - 7.43 10/20/2024 10:54 AM [facility] Venous pCO2 39 35 - 50 mmHG 10/20/2024 10:54 AM [facility] Venous pO2 49 0 - 60 mmHG 10/20/2024 10:54 AM [facility] Venous Total CO2 20(L) 23 - 29 mmol/L 10/20/2024 10:54 AM [facility] Respiratory Info NASAL 4 L/MIN 10/20/2024 10:39 AM EST Base Deficiency 7.2 mmol/L 10:54 AM [facility] Comment:Reference Range: Neg ative 2 to Positive 3 Blood Blood specimen / Unknown 10/20/2024 10:39 AM EST 10/20/2024 10:47 AM EST Kristopher Hickey MD LAB BLOOD ORDERAB LES Performing Organization Address [facility] [place] [address], [place] [address] * (ABNORMAL) POCT Glucose, Fingerstick (10/20/2024 10:37 AM EST) POC Glucose 187(H) 65 - 99 mg/dL 10/20/2024 10:37 AM EST Blood specimen / Unknown 10/20/2024 10:37 AM EST 10/20/2024 10:38 AM EST Fuad Winter MD POINT OF CARE TEST ORDERABLES Performing Organization Address [facility] Co de Phone Number HOSPITAL LAB See Below * Lactic Acid, Plasma (STAT) (10/20/2024 10:00 AM EST) Lactic Acid 0.8 0.5 - 1.9 mmol/L 10/20/2024 10:37 AM EST [facility] Blood Plasma specimen / Unknown 10/20/2024 10:00 AM EST 10/20/2024 10:07 AM EST Kristopher Hickey MD LAB BLOOD ORDERAB LES Performing Organization Address [facility] Co de Phone Number [address] [address], [address] [address] * (ABNORMAL) POCT Glucose, Fingerstick (10/20/2024 7:48 AM EST) POC Glucose 156(H) 65 - 99 mg/dL 10/20/2024 7:49 AM EST Blood specimen / Unknown 10/20/2024 7:48 AM EST 10/20/2024 7:49 AM EST Fuad Winter MD POINT OF CARE TEST ORDERABLES [facility] LAB See Below * (ABNORMAL) POCT Glucose, Fingerstick (10/20/2024 5:43 AM EST) POC Glucose 148(H) 65 - 99 mg/dL 10/20/2024 5:44 AM EST Blood specimen / Unknown 10/20/2024 5:43 AM EST 10/20/2024 5:44 AM EST Fuad Winter MD POINT OF CARE TEST ORDERABLES Performing Organization Address City/[facility] Co de Phone Number [facility] LAB See Below * (ABNORMAL) POCT Glucose, Fingerstick (10/20/2024 2:15 AM EST) POC Glucose 219(H) 65 - 99 mg/dL 10/20/2024 2:16 AM EST Blood specimen / Unknown 10/20/2024 2:15 AM EST 10/20/2024 2:16 AM EST Fuad Winter MD POINT OF CARE TEST ORDERABLES Performing Organization Address [facility] de Phone Number [facility] LAB See Below * Phosphorus (Routine) (10/19/2024 11:59 PM EST) Phosphorus 4.4 2.7 - 4.5 mg/dL 10/20/2024 1:00 AM EST [facility] Blood (Plasma/Serum) 10/19/2024 11:59 PM EST 10/20/2024 12:25 AM EST Kristopher Hickey MD LAB BLOOD ORDERAB LES Performing Organization Address [facility] [place] [address], [place] [address] * Magnesium (Routine) (10/19/2024 11:59 PM EST) Magnesium 1.6 1.6 - 2.7 mg/dL 10/20/2024 1:00 AM [facility] Blood (Plasma/Serum) 10/19/2024 11:59 PM EST 10/20/2024 12:25 AM EST Kristopher Hickey MD [place] [address], [address] [address] * (ABNORMAL) Complete Blood Count, with Differential (10/19/2024 11:59 PM EST) White Blood Cell Count 11.5(H) 4.0 - 11.0 Thou/uL 10/20/2024 12:32 AM [facility] Platelet Count 271 150 - 450 Thou/uL 10/20/2024 12:32 AM [facility] Hemoglobin 8.9(L) 13.0 - 17.7 g/dL 10/20/2024 12:32 AM [facility] Hematocrit 28.6(L) 39.0 - 54.0 % 10/20/2024 12:32 AM [facility] Red Blood Cell Count 2.93(L) 4.50 - 6.20 Mil/uL 10/20/2024 12:32 AM [facility] MCV 98 80 - 100 fL 10/20/2024 12:32 AM [facility] MCH 30.4 27.0 - 31.0 pg 10/20/2024 12:32 AM [facility] MCHC 31.1 30.0 - 36.0 g/dL 10/20/2024 12:32 AM [facility] RDW 16.5(H) 11.5 - 14.5 % 10/20/2024 12:32 AM [facility] MPV 11.3 7.5 - 12.5 fL 10/20/2024 12:32 AM [facility] Neutrophils Auto 80.7 % 10/20/19 12:32 AM [facility] Immature Granulocytes 0.6 % 10/20/2024 12:32 AM [facility] Lymphocytes Auto 11.6 % 10/20/19 12:32 AM [facility] Monocytes Auto 6.7 % 10/20/2024 12:32 AM [facility] Eosinophils Auto 0.2 % 10/20/19 12:32 AM [facility] Basophils Auto 0.2 % 10/20/2024 12:32 AM [facility] Abs Neutrophils Auto 9.25(H) 2.00 - 7.50 Thou/uL 10/20/2024 12:32 AM [facility] Abs Immature Granulocytes 0.07 0.00 - 0.10 Thou/uL 10/20/2024 12:32 AM [facility] Abs Lymphocytes Auto 1.33(L) 1.50 - 4.50 Thou/uL 10/20/2024 12:32 AM [facility] Abs Monocytes Auto 0.77 0.20 - 1.50 Thou/uL 10/20/2024 12:32 AM [facility] Abs Eosinophils Auto 0.02 0.00 - 0.70 Thou/uL 10/20/2024 12:32 AM [facility] Abs Basophils Auto 0.02 0.00 - 0.20 Thou/uL 10/20/2024 12:32 AM [facility] Blood Blood specimen / Unknown 10/19/2024 11:59 PM EST 10/20/2024 12:25 AM EST Fuad Winter MD [place] [address], [place] [address] * (ABNORMAL) Basic Metabolic Panel (Routine) (10/19/2024 11:59 PM EST) Glucose 183(H) 65 - 99 mg/dL 10/20/2024 1:00 AM [facility] Comment:Fasting: <100 mg/dL, Non-Fasting: <200 mg/dL (ADA 2005) Blood Urea Nitrogen (BUN) 86(H) 8 - 21 mg/dL 10/20/2024 1:00 AM [facility] Creatinine 4.7(H) 0.5 - 1.3 mg/dL 10/20/2024 1:00 AM [facility] eGFR 12(L) >59 10/20/2024 1:00 AM [facility] Comment:CKD-EPI (2020) in mL /min/1.73 sq meters. Sodium 140 136 - 145 mmol/L 10/20/2024 1:00 AM [facility] Potassium 4.4 3.4 - 5.3 mmol/L 10/20/2024 1:00 AM [facility] Chloride 106 98 - 107 mmol/L 10/20/2024 1:00 AM [facility] CO2 14(L) 22 - 33 mmol/L 10/20/2024 1:00 AM [facility] Anion Gap 20(H) 7 - 17 10/20/2024 1:00 AM [facility] Calcium 7.2(L) 8.7 - 10.5 mg/dL 10/20/2024 1:00 AM [facility] BUN/Creatinine Ratio 18 10.0 - 25.0 Ratio 10/20/2024 1:00 AM [facility] Blood (Plasma/Serum) 10/19/2024 11:59 PM EST 10/20/2024 12:25 AM EST Magdaleno Crowder MD [place] [address], [place] [address] * Heparin Assay (Anti Xa) (10/19/2024 11:59 PM EST) Anti Xa 0.45 IU/mL 10/20/2024 12:49 AM [facility] Comment: (NOTE) Heparin Thromboembolic/Standard/Full Dose Protocol: Therapeutic Range: ? Age 18+: ? 0.30 - 0.70 IU/mL ? Age 0 - 17: ?? 0.35 - 0.70 IU/mL ? Heparin Cardiac/Low Dose Protocol: ? Therapeutic Range: ? 0.30 - 0.50 IU/mL ? Low Molecular Weight Heparin: ? Therapeutic Range: ? Age 18+: ? 0.50 - 1.50 IU/mL ? Age 0 - 17: ?? 0.50 - 1.00 ??IU/mL ? Anticoagulant IV HEPARIN, UNFRACTIONATED 10/19/2024 11:59 PM EST Blood Plasma specimen / Unknown 10/19/2024 11:59 PM EST 10/20/2024 12:25 AM EST Kristopher Hickey MD LAB BLOOD ORDERAB LES Performing Organization Address City/State/[facility] [place] [address], [place] [address] * (ABNORMAL) POCT Glucose, Fingerstick (10/19/2024 8:00 PM EST) POC Glucose 132(H) 65 - 99 mg/dL 10/20/2024 2:16 AM EST Blood specimen / Unknown 10/19/2024 8:00 PM EST 10/20/2024 2:16 AM EST Fuad Winter MD POINT OF CARE TEST ORDERABLES Performing Organization Address [facility] LAB See Below * (ABNORMAL) POCT Glucose, Fingerstick (10/19/2024 6:53 PM EST) POC Glucose 165(H) 65 - 99 mg/dL 10/19/2024 6:54 PM EST Blood specimen / Unknown 10/19/2024 6:53 PM EST 10/19/2024 6:54 PM EST Fuad Winter MD POINT OF CARE TEST ORDERABLES Performing Organization Address [facility] LAB See Below * (ABNORMAL) POCT Glucose, Fingerstick (10/19/2024 5:42 PM EST) POC Glucose 114(H) 65 - 99 mg/dL 10/19/2024 5:43 PM EST Blood specimen / Unknown 10/19/2024 5:42 PM EST 10/19/2024 5:43 PM EST Fuad Winter MD POINT OF CARE TEST ORDERABLES Performing Organization Address [facility] LAB See Below * (ABNORMAL) POCT Glucose, Fingerstick (10/19/2024 4:33 PM EST) POC Glucose 159(H) 65 - 99 mg/dL 10/19/2024 4:34 PM EST Blood specimen / Unknown 10/19/2024 4:33 PM EST 10/19/2024 4:34 PM EST Fuad Winter MD POINT OF CARE TEST ORDERABLES Performing Organization Address [facility] LAB See Below * (ABNORMAL) Basic Metabolic Panel (10/19/2024 3:47 PM EST) Glucose 126(H) 65 - 99 mg/dL 10/19/2024 4:58 PM [facility] Comment:Fasting: <100 mg/dL, Non-Fasting: <200 mg/dL (ADA 2004) Blood Urea Nitrogen (BUN) 81(H) 8 - 21 mg/dL 10/19/2024 4:58 PM [facility] Creatinine 4.6(H) 0.5 - 1.3 mg/dL 10/19/2024 4:58 PM [facility] eGFR 12(L) >59 10/19/2024 4:58 PM [facility] Comment:CKD-EPI (2020) in mL /min/1.73 sq meters. Sodium 143 136 - 145 mmol/L 10/19/2024 4:58 PM [facility] Potassium 4.4 3.4 - 5.3 mmol/L 10/19/2024 4:58 PM [facility] Chloride 109(H) 98 - 107 mmol/L 10/19/2024 4:58 PM [facility] CO2 15(L) 22 - 33 mmol/L 10/19/2024 4:58 PM [facility] Anion Gap 19(H) 7 - 17 10/19/2024 4:58 PM [facility] Calcium 7.0(L) 8.7 - 10.5 mg/dL 10/19/2024 4:58 PM [facility] BUN/Creatinine Ratio 18 10.0 - 25.0 Ratio 10/19/2024 4:58 PM [facility] Blood (Plasma/Serum) 10/19/2024 3:47 PM EST 10/19/2024 4:16 PM EST Pushpa Gallegos MD [place] [address], [place] [address] * (ABNORMAL) Hemoglobin and Hematocrit (10/19/2024 2:25 PM EST) Hematocrit 32.3(L) 39.0 - 54.0 % 10/19/2024 3:39 PM [facility] Hemoglobin 9.9(L) 13.0 - 17.7 g/dL 10/19/2024 3:39 PM [facility] Blood Blood specimen / Unknown 10/19/2024 2:25 PM EST 10/19/2024 3:31 PM EST Kristopher Hickey MD LAB BLOOD ORDERAB LES Performing Organization Address [facility] Co de Phone Number [facility] [address] [place] [address], [facility] [address] [place] [address] * Heparin Assay (Anti Xa) (10/19/2024 2:25 PM EST) Anti Xa 0.52 IU/mL 10/19/2024 3:44 PM [facility] Comment: (NOTE) Heparin Thromboembolic/Standard/Full Dose Protocol: Therapeutic Range: ? Age 18+: ? 0.30 - 0.70 IU/mL ? Age 0 - 17: ?? 0.35 - 0.70 IU/mL ? Heparin Cardiac/Low Dose Protocol: ? Therapeutic Range: ? 0.30 - 0.50 IU/mL ? Low Molecular Weight Heparin: ? Therapeutic Range: ? Age 18+: ? 0.50 - 1.50 IU/mL ? Age 0 - 17: ?? 0.50 - 1.00 ??IU/mL ? Anticoagulant IV HEPARIN, UNFRACTIONATED 10/19/2024 2:25 PM EST Blood Plasma specimen / Unknown 10/19/2024 2:25 PM EST 10/19/2024 3:31 PM EST Kristopher Hickey MD LAB BLOOD ORDERAB LES Performing Organization Address City/State/[facility] [place] [address], [place] [address] * (ABNORMAL) Blood Gas, Venous (10/19/2024 2:25 PM EST) Venous Blood PH 7.32(L) 7.33 - 7.43 10/19/2024 3:10 PM [facility] Venous pCO2 31(L) 35 - 50 mmHG 10/19/2024 3:10 PM [facility] Venous pO2 <30 0 - 60 mmHG 10/19/2024 3:10 PM [facility] Venous Total CO2 17(L) 23 - 29 mmol/L 10/19/2024 3:10 PM [facility] Respiratory Info VM 50% 10/19/19 2:25 PM EST Base Deficiency 9.0 mmol/L 3:10 PM [facility] Comment:Reference Range: Neg ative 2 to Positive 3 Blood Blood specimen / Unknown 10/19/2024 2:25 PM EST 10/19/2024 2:56 PM EST Pushpa Gallegos MD LAB BLOOD ORDERABLES Performing Organization Address [facility] Co de Phone Number [address] [address], [address] [address] * (ABNORMAL) POCT Glucose, Fingerstick (10/19/2024 1:52 PM EST) POC Glucose 133(H) 65 - 99 mg/dL 10/19/2024 1:53 PM EST Blood specimen / Unknown 10/19/2024 1:52 PM EST 10/19/2024 1:53 PM EST Fuad Winter MD POINT OF CARE TEST ORDERABLES Performing Organization Address [facility] Co de Phone Number [facility] LAB See Below * (ABNORMAL) POCT Glucose, Fingerstick (10/19/2024 11:40 AM EST) POC Glucose 145(H) 65 - 99 mg/dL 10/19/2024 11:41 AM EST Blood specimen / Unknown 10/19/2024 11:40 AM EST 10/19/2024 11:41 AM EST Fuad Winter MD POINT OF CARE TEST ORDERABLES Performing Organization Address [facility] Co de Phone Number [facility] LAB See Below * B-Hydroxybutyrate (10/19/2024 11:34 AM EST) B-Hydroxybutyrate 0.26 <0.28 mmol/L 10/19/2024 4:15 PM EST [facility] Comment: In the presence of uncontrolled diabetes, serum beta-hydroxybutyrate levels greater than or equal to 3.80 mmol/L (patients age 16 and over) or greater than or equal to 3.00 mmol/L (patients under age 16) support a clinical diagnosis of Diabetic Ketoacidosis (DKA) - Ref: Diabetes Care 31: 643 (2007). Plasma/Serum 10/19/2024 11:3 4 AM EST 10/19/2024 11:54 AM EST Pushpa Gallegos MD LAB BLOOD ORDERABLES Performing Organization Address City/[facility]/[place] [address], [place] [address] * (ABNORMAL) High Sensitivity Troponin T (10/19/2024 11:34 AM EST) High Sensitivity Troponin T 4,276(HH) <23 ng/L 10/19/2024 3:44 PM [facility] Comment:Recurring Critical R esult. Previously phoned. Delta (Change) 2,446(H) <3 10/19/2024 3:44 PM [facility] Comment:Increased Plasma/Serum 10/19/2024 11:3 4 AM EST 10/19/2024 11:54 AM EST Pushpa Gallegos MD LAB BLOOD ORDERABLES Performing Organization Address City/[facility]/[place] [address], [place] [address] * (ABNORMAL) Basic Metabolic Panel (10/19/2024 11:34 AM EST) Pathologist [facility] Glucose 128(H) 65 - 99 mg/dL 10/19/2024 1:00 PM [facility] Comment:Fasting: <100 mg/dL, Non-Fasting: <200 mg/dL (ADA 2005) Blood Urea Nitrogen (BUN) 84(H) 8 - 21 mg/dL 10/19/2024 1:00 PM [facility] Creatinine 4.8(H) 0.5 - 1.3 mg/dL 10/19/2024 1:00 PM [facility] eGFR 12(L) >59 10/19/2024 1:00 PM [facility] Comment:CKD-EPI (2020) in mL /min/1.73 sq meters. Sodium 142 136 - 145 mmol/L 10/19/2024 1:00 PM [facility] Potassium 4.3 3.4 - 5.3 mmol/L 10/19/2024 1:00 PM [facility] Chloride 110(H) 98 - 107 mmol/L 10/19/2024 1:00 PM [facility] CO2 14(L) 22 - 33 mmol/L 10/19/2024 1:00 PM [facility] Anion Gap 18(H) 7 - 17 10/19/2024 1:00 PM [facility] Calcium 7.0(L) 8.7 - 10.5 mg/dL 10/19/2024 1:00 PM [facility] BUN/Creatinine Ratio 18 10.0 - 25.0 Ratio 10/19/2024 1:00 PM [facility] Blood (Plasma/Serum) 10/19/2024 11:34 AM EST 10/19/2024 11:54 AM EST Pushpa Gallegos MD LAB BLOOD ORDERABLES Performing Organization Address City/[facility]/[place] [address], [place] [address] * (ABNORMAL) Blood Gas, Venous (10/19/2024 10:36 AM EST) Venous Blood PH 7.32(L) 7.33 - 7.43 10/19/2024 10:59 AM [facility] Venous pCO2 33(L) 35 - 50 mmHG 10/19/2024 10:59 AM [facility] Venous pO2 53 0 - 60 mmHG 10/19/2024 10:59 AM [facility] Venous Total CO2 18(L) 23 - 29 mmol/L 10/19/2024 10:59 AM [facility] Respiratory Info VM 50% 10/19/19 25 10:36 AM EST Base Deficiency 8.3 mmol/L 10:59 AM [facility] Comment:Reference Range: Neg ative 2 to Positive 3 Blood Blood specimen / Unknown 10/19/2024 10:36 AM EST 10/19/2024 10:56 AM EST Pushpa Gallegos MD LAB BLOOD ORDERABLES Performing Organization Address City/[facility]/[place] [address], [facility] [address] [place] [address] * (ABNORMAL) POCT Glucose, Fingerstick (10/19/2024 10:34 AM EST) POC Glucose 131(H) 65 - 99 mg/dL 10/19/2024 10:34 AM EST Blood specimen / Unknown 10/19/2024 10:34 AM EST 10/19/2024 10:35 AM EST Fuad Winter MD POINT OF CARE TEST ORDERABLES Performing Organization Address [facility] Phone Number [facility] See Below * (ABNORMAL) POCT Glucose, Fingerstick (10/19/2024 9:08 AM EST) POC Glucose 146(H) 65 - 99 mg/dL 10/19/2024 9:08 AM EST Blood specimen / Unknown 10/19/2024 9:08 AM EST 10/19/2024 9:09 AM EST Fuad Winter MD POINT OF CARE TEST ORDERABLES Performing Organization Address [facility] LAB See Below * (ABNORMAL) POCT Glucose, Fingerstick (10/19/2024 7:58 AM EST) POC Glucose 118(H) 65 - 99 mg/dL 10/19/2024 8:00 AM EST Blood specimen / Unknown 10/19/2024 7:58 AM EST 10/19/2024 7:59 AM EST Fuad Winter MD POINT OF CARE TEST ORDERABLES Performing Organization Address [facility] Number [facility] See Below * Heparin Assay (Anti Xa) (10/19/2024 7:44 AM EST) Anti Xa 0.36 IU/mL 10/19/2024 8:39 AM EST [facility] Comment: (NOTE) Heparin Thromboembolic/Standard/Full Dose Protocol: Therapeutic Range: ? Age 18+: ? 0.30 - 0.70 IU/mL ? Age 0 - 17: ?? 0.35 - 0.70 IU/mL ? Heparin Cardiac/Low Dose Protocol: ? Therapeutic Range: ? 0.30 - 0.50 IU/mL ? Low Molecular Weight Heparin: ? Therapeutic Range: ? Age 18+: ? 0.50 - 1.50 IU/mL ? Age 0 - 17: ?? 0.50 - 1.00 ??IU/mL ? Anticoagulant HEPARIN, LOW MOLECULAR WEIGHT 10/19/2024 7:45 AM EST Blood Plasma specimen / Unknown 10/19/2024 7:44 AM EST 10/19/2024 8:19 AM EST Olurotimi O Adekolu MD LAB BLOOD ORDERAB LES Performing Organization Address City/[facility]/[place] [address], [place] [address] * (ABNORMAL) Basic Metabolic Panel (10/19/2024 7:44 AM EST) Glucose 110(H) 65 - 99 mg/dL 10/19/2024 8:53 AM [facility] Comment:Fasting: <100 mg/dL, Non-Fasting: <200 mg/dL (ADA 2004) Blood Urea Nitrogen (BUN) 84(H) 8 - 21 mg/dL 10/19/2024 8:53 AM [facility] Creatinine 4.8(H) 0.5 - 1.3 mg/dL 10/19/2024 8:53 AM [facility] eGFR 12(L) >59 10/19/2024 8:53 AM [facility] Comment:CKD-EPI (2020) in mL /min/1.73 sq meters. Sodium 141 136 - 145 mmol/L 10/19/2024 8:53 AM [facility] Potassium 4.6 3.4 - 5.3 mmol/L 10/19/2024 8:53 AM [facility] Chloride 109(H) 98 - 107 mmol/L 10/19/2024 8:53 AM [facility] CO2 14(L) 22 - 33 mmol/L 10/19/2024 8:53 AM [facility] Anion Gap 18(H) 7 - 17 10/19/2024 8:53 AM [facility] Calcium 7.2(L) 8.7 - 10.5 mg/dL 10/19/2024 8:53 AM [facility] BUN/Creatinine Ratio 18 10.0 - 25.0 Ratio 10/19/2024 8:53 AM [facility] Blood (Plasma/Serum) 10/19/2024 7:44 AM EST 10/19/2024 8:19 AM EST Pushpa Gallegos MD [place] [address], [facility] [address] [place] [address] * (ABNORMAL) POCT Glucose, Fingerstick (10/19/2024 6:38 AM EST) [facility] POC Glucose 148(H) 65 - 99 mg/dL 10/19/2024 6:39 AM EST Blood specimen / Unknown 10/19/2024 6:38 AM EST 10/19/2024 6:39 AM EST Fuad Winter MD POINT OF CARE TEST ORDERABLES Performing Organization Address [facility]/ZIP Co de Phone Number [facility] See Below * (ABNORMAL) POCT Glucose, Fingerstick (10/19/2024 5:25 AM EST) [facility] POC Glucose 169(H) 65 - 99 mg/dL 10/19/2024 5:29 AM EST Blood specimen / Unknown 10/19/2024 5:25 AM EST 10/19/2024 5:29 AM EST Fuad Winter MD POINT OF CARE TEST ORDERABLES Performing Organization Address [facility] Co pa Phone Number [facility] See Below * (ABNORMAL) High Sensitivity Troponin T (10/19/2024 5:15 AM EST) [facility] High Sensitivity Troponin T 4,239(HH) <23 ng/L 10/19/2024 7:11 AM [facility] Comment:Recurring Critical R esult. Previously phoned. Delta (Change) 2,409(H) <3 10/19/2024 7:11 AM [facility] Comment:Increased Blood (Plasma/Serum) 10/19/2024 5:15 AM EST 10/19/2024 6:04 AM EST Pushpa Gallegos MD LAB BLOOD ORDERABLES Performing Organization Address [facility] [place] [address], [place] [address] * (ABNORMAL) BASIC METABOLIC PANEL (10/19/2024 4:15 AM EST) Glucose 143(H) 65 - 99 mg/dL 10/19/2024 5:00 AM [facility] Comment:Fasting: <100 mg/dL, Non-Fasting: <200 mg/dL (ADA 2004) Blood Urea Nitrogen (BUN) 84(H) 8 - 21 mg/dL 10/19/2024 5:00 AM [facility] Creatinine 5.0(H) 0.5 - 1.3 mg/dL 10/19/2024 5:00 AM [facility] eGFR 11(L) >59 10/19/2024 5:00 AM [facility] Comment:CKD-EPI (2020) in mL /min/1.73 sq meters. Sodium 142 136 - 145 mmol/L 10/19/2024 5:00 AM [facility] Potassium 4.3 3.4 - 5.3 mmol/L 10/19/2024 5:00 AM [facility] Chloride 109(H) 98 - 107 mmol/L 10/19/2024 5:00 AM [facility] CO2 14(L) 22 - 33 mmol/L 10/19/2024 5:00 AM [facility] Anion Gap 19(H) 7 - 17 10/19/2024 5:00 AM [facility] Calcium 6.8(LL) 8.7 - 10.5 mg/dL 10/19/2024 5:00 AM [facility] BUN/Creatinine Ratio 17 10.0 - 25.0 Ratio 10/19/2024 5:00 AM [facility] Plasma/Serum 10/19/2024 4:15 AM EST 10/19/2024 4:25 AM EST Fuad Winter MD LAB BLOOD ORD ERABLES [facility] [address] [place] [address], [facility] [address] [place] [address] * (ABNORMAL) POCT Glucose, Fingerstick (10/19/2024 4:14 AM EST) POC Glucose 154(H) 65 - 99 mg/dL 10/19/2024 4:15 AM EST Blood specimen / Unknown 10/19/2024 4:14 AM EST 10/19/2024 4:15 AM EST Fuad Winter MD POINT OF CARE TEST ORDERABLES Performing Organization Address [facility] Phone Number HOSPITAL LAB See Below * (ABNORMAL) POCT Glucose, Fingerstick (10/19/2024 2:45 AM EST) Pathologist [facility] POC Glucose 192(H) 65 - 99 mg/dL 10/19/2024 2:46 AM EST Blood specimen / Unknown 10/19/2024 2:45 AM EST 10/19/2024 2:46 AM EST Fuad Winter MD POINT OF CARE TEST ORDERABLES Performing Organization Address [facility] Phone Number [facility] See Below * Heparin Assay (Anti Xa) (10/19/2024 1:54 AM EST) [facility] Anti Xa 0.25 IU/mL 10/19/2024 2:28 AM EST [facility] Comment: (NOTE) Heparin Thromboembolic/Standard/Full Dose Protocol: Therapeutic Range: ? Age 18+: ? 0.30 - 0.70 IU/mL ? Age 0 - 17: ?? 0.35 - 0.70 IU/mL ? Heparin Cardiac/Low Dose Protocol: ? Therapeutic Range: ? 0.30 - 0.50 IU/mL ? Low Molecular Weight Heparin: ? Therapeutic Range: ? Age 18+: ? 0.50 - 1.50 IU/mL ? Age 0 - 17: ?? 0.50 - 1.00 ??IU/mL ? Anticoagulant HEPARIN, LOW MOLECULAR WEIGHT 10/19/2024 1:55 AM EST Blood Plasma specimen / Unknown 10/19/2024 1:54 AM EST 10/19/2024 2:17 AM EST Kristopher Hickey MD LAB BLOOD ORDERAB LES Performing Organization Address [facility] [place] [address], [place] [address] * (ABNORMAL) POCT Glucose, Fingerstick (10/19/2024 1:35 AM EST) POC Glucose 160(H) 65 - 99 mg/dL 10/19/2024 1:36 AM EST Blood specimen / Unknown 10/19/2024 1:35 AM EST 10/19/2024 1:36 AM EST Fuad Winter MD POINT OF CARE TEST ORDERABLES Performing Organization Address City/[facility] Co de Phone Number HOSPITAL LAB See Below * (ABNORMAL) Hemoglobin A1C with Estimated Average Glucose (10/19/2024 1:20 AM EST) Hemoglobin A1C 8.7(H) <5.7 % 10/19/2024 12:02 PM [facility] Comment: A1c% ? Interpretation 5.7 - 6.0 ?Increase risk of diabetes 6.1 - 6.4 ?Higher risk of diabetes > or = 6.5 ?? Consistent with diabetes Diabetes Care, 33(Supp 1):S1-S61, 2010 Estimated Average Glucose 203 mg/dL 10/19/2024 12:02 PM [facility] Blood specimen / Unknown 10/19/2024 1:20 AM EST 10/19/2024 2:17 AM EST Pushpa Gallegos MD LAB BLOOD ORDERABLES Performing Organization Address [facility] [place] [address], [place] [address] * Phosphorus (Routine) (10/19/2024 1:20 AM EST) Phosphorus 4.2 2.7 - 4.5 mg/dL 10/19/2024 2:39 AM [facility] Blood (Plasma/Serum) 10/19/2024 1:20 AM EST 10/19/2024 2:17 AM EST Pushpa Gallegos MD LAB BLOOD ORDERABLES Performing Organization Address City/[facility]/[place] [address], [place] [address] * Magnesium (Routine) (10/19/2024 1:20 AM EST) Magnesium 1.7 1.6 - 2.7 mg/dL 10/19/2024 2:39 AM [facility] Blood (Plasma/Serum) 10/19/2024 1:20 AM EST 10/19/2024 2:17 AM EST Pushpa Gallegos MD LAB BLOOD ORDERABLES Performing Organization Address [facility] [place] [address], [place] [address] * (ABNORMAL) High Sensitivity Troponin T (Once) (10/19/2024 1:20 AM EST) [facility] High Sensitivity Troponin T 4,171(HH) <23 ng/L 10/19/2024 2:39 AM [facility] Comment:Recurring Critical R esult. Previously phoned. Delta (Change) 2,341(H) <3 10/19/2024 2:39 AM [facility] Comment:Increased Blood (Plasma/Serum) 10/19/2024 1:20 AM EST 10/19/2024 2:17 AM EST Pushpa Gallegos MD LAB BLOOD ORDERABLES Performing Organization Address [facility] [place] [address], [place] [address] * (ABNORMAL) Complete Blood Count, WITHOUT Differential (routine) (10/19/2024 1:20 AM EST) [facility] White Blood Cell Count 15.9(H) 4.0 - 11.0 Thou/uL 10/19/2024 2:31 AM [facility] Platelet Count 263 150 - 450 Thou/uL 10/19/2024 2:31 AM [facility] Hemoglobin 8.5(L) 13.0 - 17.7 g/dL 10/19/2024 2:31 AM [facility] Hematocrit 27.0(L) 39.0 - 54.0 % 10/19/2024 2:31 AM [facility] Red Blood Cell Count 2.78(L) 4.50 - 6.20 Mil/uL 10/19/2024 2:31 AM [facility] MCV 97 80 - 100 fL 10/19/2024 2:31 AM [facility] Comment:Significant change i n values noted, consider specimen integrity. If results are not expected, correlate clinically and re-collect sample if indicated. MCH 30.6 27.0 - 31.0 pg 10/19/2024 2:31 AM EST [facility] MCHC 31.5 30.0 - 36.0 g/dL 10/19/2024 2:31 AM EST [facility] RDW 16.2(H) 11.5 - 14.5 % 10/19/2024 2:31 AM EST [facility] MPV 11.5 7.5 - 12.5 fL 10/19/2024 2:31 AM EST [facility] Blood Blood specimen / Unknown 10/19/2024 1:20 AM EST 10/19/2024 2:17 AM EST Pushpa Gallegos MD [place] [address], [place] [address] * (ABNORMAL) POCT Glucose, Fingerstick (10/19/2024 12:16 AM EST) POC Glucose 106(H) 65 - 99 mg/dL 10/19/2024 12:17 AM EST Blood specimen / Unknown 10/19/2024 12:16 AM EST 10/19/2024 12:17 AM EST Fuad Winter MD POINT OF CARE TEST ORDERABLES HOSPITAL LAB See Below * ECG 12 lead (10/19/2024 12:02 AM EST) Systolic BP 128 mmHg EKG [facility] Diastolic BP 67 mmHg EKG [facility] Ventricular rate 86 BPM EKG [facility] Atrial rate 86 BPM EKG [facility] P-R interval 162 ms EKG [facility] QRS duration 78 ms EKG [facility] Q-T interval 372 ms EKG [facility] QTC calculation (Bazett) 445 ms EKG [facility] P axis 42 degrees EKG [facility] R axis 60 degrees EKG [facility] T axis 224 degrees EKG [facility] 10/19/2024 12:0 2 AM EST Narrative EKG [facility] - 10/19/2024 5:46 AM EST Normal sinus rhythm Early Transition Nonspecific ST and T wave abnormality Abnormal ECG Confirmed by MD Wade John ([id number]) on 10/19/2024 5:46:29 AM Procedure Note Raciel Wade MD - 10/19/2024 Normal sinus rhythm Early Transition Nonspecific ST and T wave abnormality Abnormal ECG Confirmed by MD Wade John ([id number]) on 10/19/2024 5:46:29 AM Fuad Winter MD ECG ORDERABLE S Performing Organization Address City/[facility]/ZIP Co de Phone Number [facility] * (ABNORMAL) POCT Glucose, Fingerstick (10/18/2024 11:22 PM EST) POC Glucose 117(H) 65 - 99 mg/dL 10/18/2024 11:23 PM EST Blood specimen / Unknown 10/18/2024 11:22 PM EST 10/18/2024 11:23 PM EST Fuad Winter MD POINT OF CARE TEST ORDERABLES Performing Organization Address City/[facility]/ZIP Co de Phone Number HOSPITAL LAB See Below * (ABNORMAL) BASIC METABOLIC PANEL (10/18/2024 11:11 PM EST) Glucose 103(H) 65 - 99 mg/dL 10/19/2024 12:51 AM [facility] Comment:Fasting: <100 mg/dL, Non-Fasting: <200 mg/dL (ADA 2005) Blood Urea Nitrogen (BUN) 88(H) 8 - 21 mg/dL 10/19/2024 12:51 AM [facility] Creatinine 5.0(H) 0.5 - 1.3 mg/dL 10/19/2024 12:51 AM [facility] eGFR 11(L) >59 10/19/2024 12:51 AM [facility] Comment:CKD-EPI (2020) in mL /min/1.73 sq meters. Sodium 143 136 - 145 mmol/L 10/19/2024 12:51 AM [facility] Potassium 4.4 3.4 - 5.3 mmol/L 10/19/2024 12:51 AM [facility] Chloride 110(H) 98 - 107 mmol/L 10/19/2024 12:51 AM [facility] CO2 13(L) 22 - 33 mmol/L 10/19/2024 12:51 AM [facility] Anion Gap 20(H) 7 - 17 10/19/2024 12:51 AM [facility] Calcium 7.0(L) 8.7 - 10.5 mg/dL 10/19/2024 12:51 AM [facility] BUN/Creatinine Ratio 18 10.0 - 25.0 Ratio 10/19/2024 12:51 AM [facility] Plasma/Serum 10/18/2024 11:1 1 PM EST 10/18/2024 11:48 PM EST Fuad Winter MD [place] [address], [place] [address] * (ABNORMAL) Blood Gas, Venous (10/18/2024 11:11 PM EST) Venous Blood PH 7.35 7.33 - 7.43 10/18/2024 11:50 PM [facility] Venous pCO2 27(L) 35 - 50 mmHG 10/18/2024 11:50 PM [facility] Venous pO2 185(H) 0 - 60 mmHG 10/18/2024 11:50 PM [facility] Venous Total CO2 15(L) 23 - 29 mmol/L 10/18/2024 11:50 PM [facility] Respiratory Info VM 50% 10/18/19 5:04 PM EST Base Deficiency 9.7 mmol/L 11:50 PM [facility] Comment:Reference Range: Neg ative 2 to Positive 3 Blood Blood specimen / Unknown 10/18/2024 11:11 PM EST 10/18/2024 11:45 PM EST Pushpa Gallegos MD [place] [address], [address] [address] * (ABNORMAL) BASIC METABOLIC PANEL (10/18/2024 10:15 PM EST) Glucose 113(H) 65 - 99 mg/dL 10/18/2024 10:59 PM [facility] Comment:Fasting: <100 mg/dL, Non-Fasting: <200 mg/dL (ADA 2004) Blood Urea Nitrogen (BUN) 91(H) 8 - 21 mg/dL 10/18/2024 10:59 PM [facility] Creatinine 5.2(H) 0.5 - 1.3 mg/dL 10/18/2024 10:59 PM [facility] eGFR 11(L) >59 10/18/2024 10:59 PM [facility] Comment:CKD-EPI (2020) in mL /min/1.73 sq meters. Sodium 145 136 - 145 mmol/L 10/18/2024 10:59 PM [facility] Potassium 4.2 3.4 - 5.3 mmol/L 10/18/2024 10:59 PM [facility] Chloride 111(H) 98 - 107 mmol/L 10/18/2024 10:59 PM [facility] CO2 14(L) 22 - 33 mmol/L 10/18/2024 10:59 PM [facility] Anion Gap 20(H) 7 - 17 10/18/2024 10:59 PM [facility] Calcium 7.3(L) 8.7 - 10.5 mg/dL 10/18/2024 10:59 PM [facility] BUN/Creatinine Ratio 18 10.0 - 25.0 Ratio 10/18/2024 10:59 PM [facility] Plasma/Serum 10/18/2024 10:1 5 PM EST 10/18/2024 10:21 PM EST Fuad Winter MD LAB BLOOD ORD ERABLES [address] [address], [place] [address] * Lactic Acid, Plasma (Routine) (10/18/2024 10:13 PM EST) Pathologist [facility] Lactic Acid 1.2 0.5 - 1.9 mmol/L 10/18/2024 10:56 PM EST [facility] Blood Plasma specimen / Unknown 10/18/2024 10:13 PM EST 10/18/2024 10:21 PM EST Pushpa Gallegos MD [place] [address], [place] [address] * (ABNORMAL) POCT Glucose, Fingerstick (10/18/2024 10:06 PM EST) Pathologist [facility] POC Glucose 123(H) 65 - 99 mg/dL 10/18/2024 10:06 PM EST Blood specimen / Unknown 10/18/2024 10:06 PM EST 10/18/2024 10:07 PM EST Fuad Winter MD POINT OF CARE TEST ORDERABLES HOSPITAL LAB See Below * XR Chest 1 view-Portable (10/18/2024 9:36 PM EST) Anatomical Region Laterality Modality Chest Computed Radiogr aphy 10/18/2024 9:25 PM EST Impressions 10/19/2024 12:31 PM EST Improved pulmonary edema and left pleural effusion. Narrative 10/19/2024 12:31 PM EST EXAMINATION: XR CHEST CLINICAL INFORMATION: Post thoracentesis. COMPARISON: XR Chest 10/18/2024 TECHNIQUE: Frontal views of the chest was obtained. FINDINGS: Heart is mildly enlarged. Diffuse pulmonary edema is slightly improved compared to the prior exam. Left pleural effusion is improved. Procedure Note Jair Marti MD - 10/19/2024 EXAMINATION: XR CHEST CLINICAL INFORMATION: Post thoracentesis. COMPARISON: XR Chest 10/18/2024 TECHNIQUE: Frontal views of the chest was obtained. FINDINGS: Heart is mildly enlarged. Diffuse pulmonary edema is slightly improved compared to the prior exam. Left pleural effusion is improved. IMPRESSION: Improved pulmonary edema and left pleural effusion. Pushpa Gallegos MD IMG DIAGNOSTIC IMAGI NG ORDERABLES * (ABNORMAL) POCT Glucose, Fingerstick (10/18/2024 9:12 PM EST) POC Glucose 155(H) 65 - 99 mg/dL 10/18/2024 9:13 PM EST Blood specimen / Unknown 10/18/2024 9:12 PM EST 10/18/2024 9:13 PM EST Fuad Winter MD POINT OF CARE TEST ORDERABLES Performing Organization Address [facility] Phone Number [facility] See Below * (ABNORMAL) POCT Glucose, Fingerstick (10/18/2024 8:16 PM EST) POC Glucose 168(H) 65 - 99 mg/dL 10/18/2024 8:17 PM EST Blood specimen / Unknown 10/18/2024 8:16 PM EST 10/18/2024 8:17 PM EST Fuad Winter MD POINT OF CARE TEST ORDERABLES Performing Organization Address [facility] Co pa Phone Number [facility] See Below * (ABNORMAL) Blood Gas, Venous (10/18/2024 7:14 PM EST) Venous Blood PH 7.31(L) 7.33 - 7.43 10/18/2024 7:25 PM EST [facility] Venous pCO2 32(L) 35 - 50 mmHG 10/18/2024 7:25 PM EST [facility] Venous pO2 182(H) 0 - 60 mmHG 10/18/2024 7:25 PM EST [facility] Venous Total CO2 16(L) 23 - 29 mmol/L 10/18/2024 7:25 PM EST [facility] Respiratory Info VM 50% 10/18/19 5:04 PM EST Base Deficiency 9.7 mmol/L 7:25 PM [facility] Comment:Reference Range: Neg ative 2 to Positive 3 Blood Blood specimen / Unknown 10/18/2024 7:14 PM EST 10/18/2024 7:21 PM EST Pushpa Gallegos MD [place] [address], [place] [address] * (ABNORMAL) Basic Metabolic Panel (10/18/2024 7:14 PM EST) Glucose 154(H) 65 - 99 mg/dL 10/18/2024 7:55 PM [facility] Comment:Fasting: <100 mg/dL, Non-Fasting: <200 mg/dL (ADA 2004) Blood Urea Nitrogen (BUN) 87(H) 8 - 21 mg/dL 10/18/2024 7:55 PM [facility] Creatinine 5.1(H) 0.5 - 1.3 mg/dL 10/18/2024 7:55 PM [facility] eGFR 11(L) >59 10/18/2024 7:55 PM [facility] Comment:CKD-EPI (2020) in mL /min/1.73 sq meters. Sodium 144 136 - 145 mmol/L 10/18/2024 7:55 PM [facility] Potassium 4.7 3.4 - 5.3 mmol/L 10/18/2024 7:55 PM [facility] Chloride 110(H) 98 - 107 mmol/L 10/18/2024 7:55 PM [facility] CO2 14(L) 22 - 33 mmol/L 10/18/2024 7:55 PM [facility] Anion Gap 20(H) 7 - 17 10/18/2024 7:55 PM [facility] Calcium 7.0(L) 8.7 - 10.5 mg/dL 10/18/2024 7:55 PM [facility] BUN/Creatinine Ratio 17 10.0 - 25.0 Ratio 10/18/2024 7:55 PM [facility] Blood (Plasma/Serum) 10/18/2024 7:14 PM EST 10/18/2024 7:22 PM EST Faud Winter MD LAB BLOOD ORD ERABLES [address] [address], [address] [address] * (ABNORMAL) POCT Glucose, Fingerstick (10/18/2024 7:13 PM EST) POC Glucose 166(H) 65 - 99 mg/dL 10/18/2024 7:15 PM EST Blood specimen / Unknown 10/18/2024 7:13 PM EST 10/18/2024 7:15 PM EST Fuad Winter MD POINT OF CARE TEST ORDERABLES Performing Organization Address [facility] Co de Phone Number HOSPITAL LAB See Below * US Guided Bedside Thoracentesis-Bilateral (10/18/2024 6:10 PM EST) Anatomical Region Laterality Modality Ultrasound Impressions 10/19/2024 8:19 AM EST Successful bilateral ultrasound-guided diagnostic and therapeutic thoracentesis yielding 850 mL of clear devorah fluid from the right and 550 mL of clear devorah fluid from the left. ?? This procedure was performed and dictated by CHELLY Gaitan Narrative 10/19/2024 8:19 AM EST PROCEDURE: Ultrasound-guided thoracentesis INDICATION: Bilateral pleural effusion. SPECIMEN: Specimen collected as requested. Sample left with bedside RN. ACCESS: 6 [place] [id number] closed needle/catheter system ?? REQUESTING PRACTITIONER: Cheryl Blue MD CLINICIAN(S): CHELLY Gaitan CONSENT: Informed consent was obtained from the patient prior to the procedure. During this process, the procedure and potential alternatives were explained along with the intended outcome and benefits. The risks of the procedure, including the possibility of an unsuccessful procedure as well as the risk of not doing the procedure were discussed. the patient was given the opportunity to ask any questions regarding the procedure and appeared competent to make medical decisions. A signed consent form which documents this discussion was placed in the medical record. A timeout procedure was performed. HISTORY: Neymar Wilder is a 79 y.o. old male with a suspected bilateral pleural effusion. The patient was referred for an ultrasound-guided thoracentesis. MEDICATIONS: 10ml 1% lidocaine. ?? TECHNIQUE/FINDINGS: Appropriate pre-procedure medical history and imaging studies were reviewed. The ultrasound machine was brought to the patients bedside. Ultrasound images of the right thorax were obtained to localize a moderate pleural effusion. Images were permanently saved to the record. An area of the patient's back was prepped and draped in the standard sterile fashion. 10 mL of 1% lidocaine was used to obtain local anesthesia of the skin and deeper tissues. A standard small bore needle was introduced to sample fluid and demonstrated a safe access route. There was no evidence of traversing adjacent organs or vascular structures. A 6 [place] Qthj-H-[id number] closed needle/catheter system was utilized for access. 850 mL of clear devorah fluid was aspirated before drainage ceased. The catheter was removed and a sterile dressing applied. Ultrasound images of the left thorax were obtained to localize a moderate pleural effusion. Images were permanently saved to the record. An area of the patient's back was prepped and draped in the standard sterile fashion. 10 mL of 1% lidocaine was used to obtain local anesthesia of the skin and deeper tissues. A standard small bore needle was introduced to sample fluid and demonstrated a safe access route. There was no evidence of traversing adjacent organs or vascular structures. A 6 [place] Sfrp-B-Mftguipr closed needle/catheter system was utilized for access. 550 mL of clear devorah fluid was aspirated before drainage ceased. The catheter was removed and a sterile dressing applied. The patient tolerated the procedure well without evidence of complications. ?? Pushpa Gallegos MD [facility] ORDERABLES * (ABNORMAL) POCT Glucose, Fingerstick (10/18/2024 6:07 PM EST) POC Glucose 167(H) 65 - 99 mg/dL 10/18/2024 6:07 PM EST Blood specimen / Unknown 10/18/2024 6:07 PM EST 10/18/2024 6:08 PM EST Fuad Winter MD POINT OF CARE TEST ORDERABLES HOSPITAL LAB See Below * Fungal Culture, Other Than Blood (10/18/2024 5:55 PM EST) Culture No fungus isolated 11/02/2024 8:34 AM EST [facility] 10/18/2024 5:55 PM EST 10/18/2024 7:54 PM EST Fuad Winter MD MICROBIOLOGY - GENERAL ORDERABLES Performing Organization Address City/[facility]/ZIP Co de Phone Number [facility] [address] * Body Fluid Culture (aerobic, anaerobic and Gram stain) (10/18/2024 5:55 PM EST) Gram stain suggestive of Few neutrophils Mononuclear cells No organisms seen 10/18/2024 9:52 PM EST [facility] Culture No aerobes and anaerobes isolated after 7 days 10/25/2024 3:19 PM [facility] 10/18/2024 5:55 PM EST 10/18/2024 7:53 PM EST Fuad Winter MD MICROBIOLOGY - GENERAL ORDERABLES Performing Organization Address City/[facility] Co de Phone Number [facility] [address] [place] [address], [address] [address] * Protein, Body Fluid (10/18/2024 5:50 PM EST) Source RIGHT PLEURAL EFFUSION 10/18/2024 6:49 PM EST [facility] Protein, Body Fluid 2.2 g/dL 10/18/2024 7:15 PM [facility] Comment:The reference interv al(s) and other method performance specifications are unavailable for this body fluid. Comparison of this result with the concentration in the blood, serum, or plasma is recommended. 10/18/2024 5:50 PM EST 10/18/2024 6:49 PM EST Fuad Winter MD BODY FLUIDS A ND STOOLS ORDERABLES Performing Organization Address [facility] [place] [address], [place] [address] * PH, BODY FLUID (10/18/2024 5:50 PM EST) Source RIGHT PLEURAL EFFUSION 10/18/2024 6:49 PM EST [facility] pH, Body Fluid 7.34 10/18/2024 7:14 PM EST [facility] 10/18/2024 5:50 PM EST 10/18/2024 6:49 PM EST Fuad Winter MD BODY FLUIDS A ND STOOLS ORDERABLES Performing Organization Address [facility] [place] [address], [place] [address] * Glucose, Body Fluid (10/18/2024 5:50 PM EST) Source RIGHT PLEURAL EFFUSION 10/18/2024 6:49 PM EST [facility] Glucose, Body Fluid 151 mg/dL 10/18/2024 7:15 PM EST [facility] Comment:The reference interv al(s) and other method performance specifications are unavailable for this body fluid. Comparison of this result with the concentration in the blood, serum, or plasma is recommended. 10/18/2024 5:50 PM EST 10/18/2024 6:49 PM EST Fuad Winter MD BODY FLUIDS A ND STOOLS ORDERABLES Performing Organization Address [facility] [place] [address], [place] [address] * Cell Count, Reflex Differential, Body Fluid (10/18/2024 5:50 PM EST) Appearance, Body Fluid Cloudy 10/18/2024 8:25 PM EST [facility] Color [place] 10/18/2024 8:25 PM [facility] Nucleated Cells, Fluid 435 /CUMM 10/18/2024 8:24 PM [facility] RBC, Fluid 11,000 /CUMM 10/18/2024 8:24 PM [facility] Neutrophil, Body Fluid 3 % 10/18/2024 8:25 PM [facility] Lymphoctye, Body Fluid 27 % 10/18/2024 8:25 PM [facility] Monocyte, Body Fluid 21 % 10/18/2024 8:25 PM [facility] Histiocyte, Body Fluid 46 % 10/18/2024 8:25 PM [facility] Mesothelial, Body Fluid 3 % 10/18/2024 8:25 PM [facility] Smear Comment, Body Fluid The reference interval and other method performance specifications are unavailable for this body fluid. Comparison of the result with concentration in the blood, serum, or plasma is recommended 10/18/2024 8:25 PM [facility] 10/18/2024 5:50 PM EST 10/18/2024 6:49 PM EST Fuad Winter MD BODY FLUIDS A ND STOOLS ORDERABLES Performing Organization Address City/State/[facility] [place] [address], [place] [address] * Culture - Pleural Fluid (aerobic, anaerobic and Gram stain) (10/18/2024 5:40 PM EST) Special Requests Limited quantity of fluid received, results may be impacted. 10/19/2024 9:03 AM [facility] Gram stain suggestive of Few neutrophils Mononuclear cells No organisms seen 10/18/2024 9:59 PM [facility] Culture No aerobes and anaerobes isolated after 7 days 10/25/2024 3:19 PM [facility] Microbiology Specimen from pleura obtained by thoracentesis / Unknown 10/18/2024 5:40 PM EST 10/18/2024 7:48 PM EST Pushpa Gallegos MD MICROBIOLOGY - GENER AL ORDERABLES [facility] [address] [place] [address], [place] [address] * Protein - Pleural Fluid (10/18/2024 5:39 PM EST) Source PLEURAL 10/18/2024 5:40 PM EST Protein, Body Fluid 2.2 g/dL 10/18/2024 7:27 PM EST [facility] Comment:The reference interv al(s) and other method performance specifications are unavailable for this body fluid. Comparison of this result with the concentration in the blood, serum, or plasma is recommended. Specimen from pleura obtained by thoracentesis / Unknown 10/18/2024 5:39 PM EST 10/18/2024 6:57 PM EST Pushpa Gallegos MD BODY FLUIDS AND STOO LS ORDERABLES Performing Organization Address [facility] [place] [address], [place] [address] * pH - Pleural Fluid (not avail at [facility]) (10/18/2024 5:39 PM EST) Source PLEURAL 10/18/2024 5:40 PM EST pH, Body Fluid 7.33 10/18/2024 7:15 PM EST [facility] Body Fluid Specimen from pleura obtained by thoracentesis / Unknown 10/18/2024 5:39 PM EST 10/18/2024 6:57 PM EST Pushpa Gallegos MD BODY FLUIDS AND STOO LS ORDERABLES Performing Organization Address [facility] [place] [address], [place] [address] * LDH - Pleural Fluid (10/18/2024 5:39 PM EST) Source PLEURAL 10/18/2024 5:40 PM EST Lactate Dehydrogenase, Body Fluid 143 U/L 10/18/2024 7:27 PM EST [facility] Comment:The reference interv al(s) and other method performance specifications are unavailable for this body fluid. Comparison of this result with the concentration in the blood, serum, or plasma is recommended. Body Fluid Specimen from pleura obtained by thoracentesis / Unknown 10/18/2024 5:39 PM EST 10/18/2024 6:57 PM EST Pushpa Gallegos MD BODY FLUIDS AND STOO LS ORDERABLES Performing Organization Address [facility] [place] [address], [place] [address] * Glucose - Pleural Fluid (10/18/2024 5:39 PM EST) Source PLEURAL 10/18/2024 5:40 PM EST Glucose, Body Fluid 146 mg/dL 10/18/2024 7:27 PM [facility] Comment:The reference interv al(s) and other method performance specifications are unavailable for this body fluid. Comparison of this result with the concentration in the blood, serum, or plasma is recommended. Specimen from pleura obtained by thoracentesis / Unknown 10/18/2024 5:39 PM EST 10/18/2024 6:57 PM EST Pushpa Gallegos MD BODY FLUIDS AND STOO LS ORDERABLES Performing Organization Address [facility] [place] [address], [place] [address] * Cell Count, Reflex Differential, Body Fluid (10/18/2024 5:39 PM EST) Appearance, Body Fluid Cloudy 10/18/2024 8:22 PM EST [facility] Color [place] 10/18/2024 8:22 PM [facility] Nucleated Cells, Fluid 721 /CUMM 10/18/2024 8:22 PM [facility] RBC, Fluid 10,000 /CUMM 10/18/2024 8:22 PM [facility] Neutrophil, Body Fluid 0 % 10/18/2024 8:22 PM EST [facility] Lymphoctye, Body Fluid 57 % 10/18/2024 8:22 PM [facility] Monocyte, Body Fluid 15 % 10/18/2024 8:22 PM [facility] Histiocyte, Body Fluid 27 % 10/18/2024 8:22 PM [facility] Basophil, Body Fluid 1 % 10/18/2024 8:22 PM [facility] Smear Comment, Body Fluid The reference interval and other method performance specifications are unavailable for this body fluid. Comparison of the result with concentration in the blood, serum, or plasma is recommended 10/18/2024 8:22 PM [facility] Specimen from pleura obtained by thoracentesis / Unknown 10/18/2024 5:39 PM EST 10/18/2024 6:57 PM EST Pushpa Gallegos MD BODY FLUIDS [place] [address], [place] [address] * (ABNORMAL) POCT Glucose, Fingerstick (10/18/2024 5:04 PM EST) POC Glucose 119(H) 65 - 99 mg/dL 10/18/2024 6:07 PM EST Blood specimen / Unknown 10/18/2024 5:04 PM EST 10/18/2024 6:07 PM EST Fuad Winter MD POINT OF CARE TEST ORDERABLES HOSPITAL LAB See Below * (ABNORMAL) B-Hydroxybutyrate (10/18/2024 5:04 PM EST) B-Hydroxybutyrate 0.45(H) <0.28 mmol/L 10/18/2024 6:44 PM [facility] Comment: In the presence of uncontrolled diabetes, serum beta-hydroxybutyrate levels greater than or equal to 3.80 mmol/L (patients age 16 and over) or greater than or equal to 3.00 mmol/L (patients under age 16) support a clinical diagnosis of Diabetic Ketoacidosis (DKA) - Ref: Diabetes Care 31: 643 (2007). Plasma/Serum 10/18/2024 5:04 PM EST 10/18/2024 6:04 PM EST Fuad Winter MD LAB BLOOD ORD ERABLES Performing Organization Address [facility] [place] [address], [place] [address] * (ABNORMAL) Blood Gas, Venous (10/18/2024 5:04 PM EST) Venous Blood PH 7.32(L) 7.33 - 7.43 10/18/2024 5:27 PM [facility] Venous pCO2 31(L) 35 - 50 mmHG 10/18/2024 5:27 PM [facility] Venous pO2 131(H) 0 - 60 mmHG 10/18/2024 5:27 PM [facility] Venous Total CO2 17(L) 23 - 29 mmol/L 10/18/2024 5:27 PM [facility] Respiratory Info NASAL 6 L/MIN 10/18/2024 3:04 PM EST Base Deficiency 9.2 mmol/L 5:27 PM [facility] Comment:Reference Range: Neg ative 2 to Positive 3 Blood Blood specimen / Unknown 10/18/2024 5:04 PM EST 10/18/2024 5:13 PM EST Pushpa Gallegos MD LAB BLOOD ORDERABLES Performing Organization Address [facility]/[place] [address], [place] [address] * Heparin Assay (Anti Xa) (10/18/2024 5:04 PM EST) Anti Xa 0.23 IU/mL 10/18/2024 6:17 PM [facility] Comment: (NOTE) Heparin Thromboembolic/Standard/Full Dose Protocol: Therapeutic Range: ? Age 18+: ? 0.30 - 0.70 IU/mL ? Age 0 - 17: ?? 0.35 - 0.70 IU/mL ? Heparin Cardiac/Low Dose Protocol: ? Therapeutic Range: ? 0.30 - 0.50 IU/mL ? Low Molecular Weight Heparin: ? Therapeutic Range: ? Age 18+: ? 0.50 - 1.50 IU/mL ? Age 0 - 17: ?? 0.50 - 1.00 ??IU/mL ? Anticoagulant IV HEPARIN, UNFRACTIONATED 10/18/2024 11:10 AM EST Blood Plasma specimen / Unknown 10/18/2024 5:04 PM EST 10/18/2024 6:04 PM EST Pushpa Haw MD LAB BLOOD ORDERABLES Performing Organization Address City/[facility]/[place] [address], [place] [address] * (ABNORMAL) Basic Metabolic Panel (10/18/2024 5:04 PM EST) Glucose 112(H) 65 - 99 mg/dL 10/18/2024 6:44 PM [facility] Comment:Fasting: <100 mg/dL, Non-Fasting: <200 mg/dL (ADA 2004) Blood Urea Nitrogen (BUN) 85(H) 8 - 21 mg/dL 10/18/2024 6:44 PM [facility] Creatinine 5.2(H) 0.5 - 1.3 mg/dL 10/18/2024 6:44 PM [facility] eGFR 11(L) >59 10/18/2024 6:44 PM [facility] Comment:CKD-EPI (2020) in mL /min/1.73 sq meters. Sodium 145 136 - 145 mmol/L 10/18/2024 6:44 PM [facility] Potassium 4.4 3.4 - 5.3 mmol/L 10/18/2024 6:44 PM [facility] Chloride 110(H) 98 - 107 mmol/L 10/18/2024 6:44 PM [facility] CO2 15(L) 22 - 33 mmol/L 10/18/2024 6:44 PM [facility] Anion Gap 20(H) 7 - 17 10/18/2024 6:44 PM [facility] Calcium 7.1(L) 8.7 - 10.5 mg/dL 10/18/2024 6:44 PM [facility] BUN/Creatinine Ratio 16 10.0 - 25.0 Ratio 10/18/2024 6:44 PM [facility] Blood (Plasma/Serum) 10/18/2024 5:04 PM EST 10/18/2024 6:04 PM EST Fuad Winter MD [place] [address], [facility] [address] [place] [address] * XR Chest 1 view-Portable (10/18/2024 4:14 PM EST) Anatomical Region Laterality Modality Chest Computed Radiogr aphy 10/18/2024 3:54 PM EST Impressions 10/19/2024 2:34 PM EST 1. ??Interval worsening of now moderate pulmonary edema. Superimposed infectious/inflammatory process cannot be entirely excluded. 2. ??Trace bilateral pleural effusions unchanged. Interpreted by: ??Mitchell Ascencio DO Technical Operations Vice President I personally reviewed the images and the resident's preliminary report and AGREE with the report as it is now presented ([email or web address]). Narrative 10/19/2024 2:34 PM EST EXAMINATION: XR CHEST CLINICAL INFORMATION: hypoxic sob eval for pulm edema COMPARISON: Chest radiograph 10/18/2024 at 5:27 AM TECHNIQUE: Frontal views of the chest were obtained. FINDINGS: Lungs are slightly hypoexpanded. Interval worsening of patchy bilateral opacities with central and basilar predominance. Trace bilateral pleural effusions. No pneumothorax. The cardiomediastinal silhouette is unchanged from prior. No acute osseous abnormality. Procedure Note Laura Villagomez MD - 10/19/2024 EXAMINATION: XR CHEST CLINICAL INFORMATION: hypoxic sob eval for pulm edema COMPARISON: Chest radiograph 10/18/2024 at 5:27 AM TECHNIQUE: Frontal views of the chest were obtained. FINDINGS: Lungs are slightly hypoexpanded. Interval worsening of patchy bilateral opacities with central and basilar predominance. Trace bilateral pleural effusions. No pneumothorax. The cardiomediastinal silhouette is unchanged from prior. No acute osseous abnormality. IMPRESSION: 1. Interval worsening of now moderate pulmonary edema. Superimposed infectious/inflammatory process cannot be entirely excluded. 2. Trace bilateral pleural effusions unchanged. Interpreted by: Mitchell Ascencio DO Technical Operations Vice President I personally reviewed the images and the resident's preliminary report and AGREE with the report as it is now presented ([email or web address]). Pushpa Gallegos MD IMG DIAGNOSTIC IMAGI NG ORDERABLES * (ABNORMAL) POCT Glucose, Fingerstick (10/18/2024 3:51 PM EST) POC Glucose 106(H) 65 - 99 mg/dL 10/18/2024 3:51 PM EST Blood specimen / Unknown 10/18/2024 3:51 PM EST 10/18/2024 3:52 PM EST Fuad Winter MD POINT OF CARE TEST ORDERABLES Performing Organization Address [facility] LAB See Below * (ABNORMAL) POCT Glucose, Fingerstick (10/18/2024 2:44 PM EST) POC Glucose 105(H) 65 - 99 mg/dL 10/18/2024 2:49 PM EST Blood specimen / Unknown 10/18/2024 2:44 PM EST 10/18/2024 2:48 PM EST Fuad Winter MD POINT OF CARE TEST ORDERABLES Performing Organization Address [facility] Number [facility] LAB See Below * POCT Glucose, Fingerstick (10/18/2024 1:44 PM EST) POC Glucose 92 65 - 99 mg/dL 10/18/2024 1:45 PM EST Blood specimen / Unknown 10/18/2024 1:44 PM EST 10/18/2024 1:45 PM EST Fuad Winter MD POINT OF CARE TEST ORDERABLES Performing Organization Address [facility] Number [facility] LAB See Below * (ABNORMAL) POCT Glucose, Fingerstick (10/18/2024 1:24 PM EST) POC Glucose 102(H) 65 - 99 mg/dL 10/18/2024 1:44 PM EST Blood specimen / Unknown 10/18/2024 1:24 PM EST 10/18/2024 1:44 PM EST Fuad Winter MD POINT OF CARE TEST ORDERABLES Performing Organization Address [facility]/ZIP Co de Phone Number HOSPITAL LAB See Below * (ABNORMAL) POCT Glucose, Fingerstick (10/18/2024 12:19 PM EST) Pathologist [facility] POC Glucose 160(H) 65 - 99 mg/dL 10/18/2024 12:19 PM EST Blood specimen / Unknown 10/18/2024 12:19 PM EST 10/18/2024 12:20 PM EST Fuad Winter MD POINT OF CARE TEST ORDERABLES HOSPITAL LAB See Below * ECHOCARDIOGRAM COMPREHENSIVE WITH CONTRAST (10/18/2024 12:14 PM EST) Pathologist [facility] IVS Mean (F:0.6-0.9, M:0.6-1.0) 1.0 cm IVS (F:0.6-0.9, M:0.6-1.0) 1.0 cm LVIDD Mean (F:3.8-5.2, M:4.2-5.8) 5.8 cm LVIDD (F:3.8-5.2, M:4.2-5.8) 5.8 cm LVIDS (F:2.2-3.5, M:2.5-4.0) 4.6 cm LVIDS (F:2.2-3.5, M:2.5-4.0) 4.6 cm LVOT diameter mean 2.1 cm LVOT diameter 2.1 cm PW Mean (F:0.6-0.9, M:0.6-1.0) 1.0 cm PW (F:0.6-0.9, M:0.6-1.0) 1.0 cm LV Diastolic Volume Mean 190.9 mL LV Diastolic Volume 191 mL LV Systolic Volume Mean 137.3 mL LV Systolic Volume 137 mL LVOT mn grad mean 1.5 mmHg LVOT mn grad 1.5 mmHg LVOT peak marlo mean 0.7 m/s LVOT peak marlo 0.7 m/s LVOT VTI MEAN 14.9 cm LVOT VTI 14.9 cm RV Free wall pk S' Mean 14.2 cm/s RV Free wall pk S' 14.2 cm/s LA volume Mean 93.2 mL LA volume 93.2 mL RA area Mean 17.4 cm2 RA area 17.4 cm2 RA 2D Volume 51.2 mL MR Int Pk Flow PISA Mean 47.8 mL/s MR Int Pk Flow PISA 47.8 mL/s MR PISA Radius Mean 0.4 cm MR PISA Radius 0.4 cm Vn Nyquist Mean 39.3 cm/s Vn Nyquist 39.3 cm/s MV Peak A-Wave Mean 27.0 cm/s MV Peak A-Wave 27.0 cm/s E wave decelartion time mean 157 ms E wave decelartion time 157 ms MV Peak E-Wave Mean 85.3 cm/s MV Peak E-Wave 85.3 cm/s MV E' Lateral Velocity Mean 5.98 cm/s MV E' Lateral Velocity 5.98 cm/s MV E' Septal Velocity Mean 5.76 cm/s MV E' Septal Velocity 5.76 cm/s Mr max marlo mean 4.6 m/s Mr max marlo 4.6 m/s Mitral Regurgitant Velocity Time Integral Mean 126.5 cm Mitral Regurgitant Velocity Time Integral 126.5 cm Tapse Mean 1.7 cm Tapse 1.7 cm TR Peak Marlo Mean 3.3 m/s TR Peak Marlo 3.3 m/s Ascending aorta mean 3.0 cm Ascending aorta 3.0 cm Sinuses of Valsalva Mean 3.0 cm Sinuses of [place]als[place] 3.0 cm Heart Rate 85 bpm BP Systolic 128 mmHg BP Diastolic 61 mmHg Height 68.00 inches Weight 152.00 lbs TR Peak Gradient 44 mmHg LV Mass Index (F:43-95, M:49-115) 128.2 g/m2 LA Volume Index (16-34) 51.2 mL/m2 LV Diastolic Volume Index (F:29-61, M:35-75) 105.0 mL/m2 LV Systolic Volume Index (F:8-24, M:11-31) 75.3 mL/m2 MR PISA EROA 0.1 cm2 E/E' ratio 14.26 LVOT stroke volume 52 mL LVOT area 3.5 cm2 E/A ratio 3.16 AV LVOT peak gradient 2.0 mmHg SVI 28 mL/m2 Ascending aorta Index 1.6 cm/m2 Sinuses of Valsalva Index 1.6 cm/m2 LV mass 233.1 g Poole BP EF (55-75) 28 % E/E' Average 14.5 E/E' Septal 14.8 E/E' Lateral 14.3 LVOT SI 28.36 mL/m2 LV RWT 0.34 Left Ventricular Cardiac Index 2.4 L/min/m2 Left Ventricular Cardiac Output 4.4 L/min BSA 1.82 m2 LA Volume Index 28.1 mL/m2 Est. RA pres 8 mmHg RVSP 52 mmHg PASP 51.6 mmHg Anatomical Region Laterality Modality Ultrasound Narrative 10/18/2024 12:37 PM EST ?The left ventricle is severely dilated. There is eccentric hypertrophy. Left ventricular systolic function is severely decreased. The quantitative EF by 2D Poole biplane is 28%. The anterior and anteroseptal garcia are akinetic. ??The apex is dyskinetic. There is evidence of diastolic dysfunction, ??with elevated left atrial filling pressure. The left atrial cavity is severely dilated. ?The right ventricle is normal in size. Right ventricular systolic function is normal. The estimated right ventricular systolic pressure is 52 mmHg. ?There is moderate functional mitral regurgitation. There is mild tricuspid regurgitation. ?There is a large left pleural effusion. ?There is no previous study for comparison in our system. ?Dr. Pushpa Gallegos was notified by [place] text at 12:36 PM. Technical Details Definity contrast was used during the study. Overall the study quality was adequate. Left Ventricle The left ventricle is severely dilated. There is eccentric hypertrophy. Left ventricular systolic function is severely decreased. The quantitative EF by 2D Poole biplane is 28%. The anterior and anteroseptal garcia are akinetic. The apex is dyskinetic. There is evidence of diastolic dysfunction, with elevated left atrial filling pressure. Right Ventricle The right ventricle is normal in size. Right ventricular systolic function is normal. Left Atrium The left atrial cavity is severely dilated. Right Atrium Right atrial size is normal. Based on IVC diameter and collapse, right atrial pressure is estimated to be moderately elevated (8 mmHg). Mitral Valve The mitral valve is structurally normal. There is moderate functional mitral regurgitation. Tricuspid Valve The tricuspid valve is structurally normal. There is mild tricuspid regurgitation. The estimated right ventricular systolic pressure is 52 mmHg. Aortic Valve The aortic valve is tricuspid. The aortic valve leaflets are mildly calcified. There is no aortic regurgitation or stenosis. Pulmonic Valve The pulmonic valve is structurally normal. There is trace pulmonic regurgitation. Ascending Aorta The aortic root and ascending aorta are normal in dimension. Pericardium There is a large left pleural effusion. There is no pericardial effusion. Prior Study There is no previous study for comparison in our system. Kristopher Hickey MD CV ECHO ORDERABLE S * (ABNORMAL) Basic Metabolic Panel (10/18/2024 11:25 AM EST) Glucose 212(H) 65 - 99 mg/dL 10/18/2024 12:14 PM [facility] Comment:Fasting: <100 mg/dL, Non-Fasting: <200 mg/dL (ADA 2004) Blood Urea Nitrogen (BUN) 84(H) 8 - 21 mg/dL 10/18/2024 12:14 PM [facility] Creatinine 5.0(H) 0.5 - 1.3 mg/dL 10/18/2024 12:14 PM [facility] eGFR 11(L) >59 10/18/2024 12:14 PM [facility] Comment:CKD-EPI (2020) in mL /min/1.73 sq meters. Sodium 145 136 - 145 mmol/L 10/18/2024 12:14 PM [facility] Potassium 4.2 3.4 - 5.3 mmol/L 10/18/2024 12:14 PM [facility] Chloride 111(H) 98 - 107 mmol/L 10/18/2024 12:14 PM [facility] CO2 14(L) 22 - 33 mmol/L 10/18/2024 12:14 PM [facility] Anion Gap 20(H) 7 - 17 10/18/2024 12:14 PM [facility] Calcium 7.1(L) 8.7 - 10.5 mg/dL 10/18/2024 12:14 PM [facility] BUN/Creatinine Ratio 17 10.0 - 25.0 Ratio 10/18/2024 12:14 PM [facility] Blood (Plasma/Serum) 10/18/2024 11:25 AM EST 10/18/2024 11:49 AM EST Fuad Winter MD LAB BLOOD ORD ERABLES Performing Organization Address [facility] Number [facility] [address] [place] [address], [facility] [address] [place] [address] * (ABNORMAL) POCT Glucose, Fingerstick (10/18/2024 11:19 AM EST) POC Glucose 215(H) 65 - 99 mg/dL 10/18/2024 11:22 AM EST Blood specimen / Unknown 10/18/2024 11:19 AM EST 10/18/2024 11:22 AM EST Fuad Winter MD POINT OF CARE TEST ORDERABLES Performing Organization Address [facility] Phone Number [facility] LAB See Below * (ABNORMAL) POCT Glucose, Fingerstick (10/18/2024 10:16 AM EST) POC Glucose 289(H) 65 - 99 mg/dL 10/18/2024 10:17 AM EST Blood specimen / Unknown 10/18/2024 10:16 AM EST 10/18/2024 10:17 AM EST Fuad Winter MD POINT OF CARE TEST ORDERABLES Performing Organization Address [facility] Phone Number [facility] See Below * Heparin Assay (Anti Xa) (10/18/2024 9:57 AM EST) Anti Xa 0.47 IU/mL 10/18/2024 10:37 AM EST [facility] Comment: (NOTE) Heparin Thromboembolic/Standard/Full Dose Protocol: Therapeutic Range: ? Age 18+: ? 0.30 - 0.70 IU/mL ? Age 0 - 17: ?? 0.35 - 0.70 IU/mL ? Heparin Cardiac/Low Dose Protocol: ? Therapeutic Range: ? 0.30 - 0.50 IU/mL ? Low Molecular Weight Heparin: ? Therapeutic Range: ? Age 18+: ? 0.50 - 1.50 IU/mL ? Age 0 - 17: ?? 0.50 - 1.00 ??IU/mL ? Anticoagulant IV HEPARIN, UNFRACTIONATED 10/18/2024 5:27 AM EST Blood Plasma specimen / Unknown 10/18/2024 9:57 AM EST 10/18/2024 10:10 AM EST Patt Sosa MD LAB BLOOD ORDERABLES Performing Organization Address [facility]/State/[facility] Co de Phone Number [facility] [address] [place] [address], [facility] [address] [place] [address] * (ABNORMAL) Basic Metabolic Panel (10/18/2024 9:57 AM EST) Glucose 304(H) 65 - 99 mg/dL 10/18/2024 10:35 AM [facility] Comment:Fasting: <100 mg/dL, Non-Fasting: <200 mg/dL (ADA 2004) Blood Urea Nitrogen (BUN) 87(H) 8 - 21 mg/dL 10/18/2024 10:35 AM [facility] Creatinine 5.0(H) 0.5 - 1.3 mg/dL 10/18/2024 10:35 AM [facility] eGFR 11(L) >59 10/18/2024 10:35 AM [facility] Comment:CKD-EPI (2020) in mL /min/1.73 sq meters. Sodium 142 136 - 145 mmol/L 10/18/2024 10:35 AM [facility] Potassium 4.3 3.4 - 5.3 mmol/L 10/18/2024 10:35 AM [facility] Chloride 108(H) 98 - 107 mmol/L 10/18/2024 10:35 AM [facility] CO2 13(L) 22 - 33 mmol/L 10/18/2024 10:35 AM [facility] Anion Gap 21(H) 7 - 17 10/18/2024 10:35 AM [facility] Calcium 7.2(L) 8.7 - 10.5 mg/dL 10/18/2024 10:35 AM [facility] BUN/Creatinine Ratio 17 10.0 - 25.0 Ratio 10/18/2024 10:35 AM [facility] Blood (Plasma/Serum) 10/18/2024 9:57 AM EST 10/18/2024 10:10 AM EST Fuad Winter MD [place] [address], [address] [address] * (ABNORMAL) POCT Glucose, Fingerstick (10/18/2024 9:39 AM EST) POC Glucose 324(H) 65 - 99 mg/dL 10/18/2024 9:40 AM EST Blood specimen / Unknown 10/18/2024 9:39 AM EST 10/18/2024 9:40 AM EST Fuad Winter MD POINT OF CARE TEST ORDERABLES Performing Organization Address [facility] LAB See Below * (ABNORMAL) POCT Glucose, Fingerstick (10/18/2024 8:34 AM EST) POC Glucose 443(H) 65 - 99 mg/dL 10/18/2024 8:35 AM EST Blood specimen / Unknown 10/18/2024 8:34 AM EST 10/18/2024 8:35 AM EST Fuad Winter MD POINT OF CARE TEST ORDERABLES Performing Organization Address [facility] LAB See Below * (ABNORMAL) POCT Glucose, Fingerstick (10/18/2024 7:31 AM EST) POC Glucose 461(H) 65 - 99 mg/dL 10/18/2024 7:33 AM EST Blood specimen / Unknown 10/18/2024 7:31 AM EST 10/18/2024 7:33 AM EST Fuad Winter MD POINT OF CARE TEST ORDERABLES Performing Organization Address [facility] LAB See Below * (ABNORMAL) BASIC METABOLIC PANEL (10/18/2024 7:25 AM EST) Glucose 476(HH) 65 - 99 mg/dL 10/18/2024 8:03 AM [facility] Comment:Fasting: <100 mg/dL, Non-Fasting: <200 mg/dL (ADA 2005) Blood Urea Nitrogen (BUN) 84(H) 8 - 21 mg/dL 10/18/2024 8:03 AM [facility] Creatinine 5.0(H) 0.5 - 1.3 mg/dL 10/18/2024 8:03 AM [facility] eGFR 11(L) >59 10/18/2024 8:03 AM [facility] Comment:CKD-EPI (2020) in mL /min/1.73 sq meters. Sodium 139 136 - 145 mmol/L 10/18/2024 8:03 AM [facility] Potassium 4.5 3.4 - 5.3 mmol/L 10/18/2024 8:03 AM [facility] Chloride 106 98 - 107 mmol/L 10/18/2024 8:03 AM [facility] CO2 12(LL) 22 - 33 mmol/L 10/18/2024 8:03 AM [facility] Anion Gap 21(H) 7 - 17 10/18/2024 8:03 AM [facility] Calcium 6.6(LL) 8.7 - 10.5 mg/dL 10/18/2024 8:03 AM [facility] BUN/Creatinine Ratio 17 10.0 - 25.0 Ratio 10/18/2024 8:03 AM [facility] Plasma/Serum 10/18/2024 7:25 AM EST 10/18/2024 7:33 AM EST Fuad Winter MD [place] [address], [place] [address] * (ABNORMAL) Troponin T, High Sensitivity - STAT and in 1 hour (10/18/2024 7:25 AM EST) High Sensitivity Troponin T 2,403(HH) <23 ng/L 10/18/2024 8:03 AM [facility] Comment:Recurring Critical R esult. Previously phoned. Delta (Change) 573(H) <3 10/18/2024 8:03 AM [facility] Comment:Increased Blood (Plasma/Serum) 10/18/2024 7:25 AM EST 10/18/2024 7:33 AM EST Fuad Winter MD [place] [address], [address] [place] [address] * (ABNORMAL) POCT Glucose, Fingerstick (10/18/2024 6:28 AM EST) POC Glucose >500(H) 65 - 99 mg/dL 10/18/2024 6:28 AM EST Blood specimen / Unknown 10/18/2024 6:28 AM EST 10/18/2024 6:29 AM EST Fuad Winter MD POINT OF CARE TEST ORDERABLES HOSPITAL LAB See Below * XR Chest 1 view-Portable (10/18/2024 5:37 AM EST) Anatomical Region Laterality Modality Chest Computed Radiogr aphy 10/18/2024 5:25 AM EST Impressions 10/18/2024 7:27 AM EST 1. ??Findings as above most consistent with pulmonary edema and left greater than right small bilateral pleural effusions. Please note, an underlying infectious/inflammatory process cannot be excluded. 2. ??Hazy right basilar and dense retrocardiac opacities may represent layering effusion and/or atelectasis, respectively. Interpreted by: ??Prem Coffman MD Technical Operations Vice President I personally reviewed the images and the resident's preliminary report and AGREE with the report as it is now presented ([email or web address]). Narrative 10/18/2024 7:27 AM EST EXAMINATION: XR CHEST CLINICAL INFORMATION: SOB COMPARISON: None TECHNIQUE: Frontal view of the chest FINDINGS: The lungs are well-expanded. Central vascular and coarse interstitial prominence. Hazy right basilar and dense retrocardiac opacities. Small left and suspected small right layering pleural effusions. Thickening of the minor fissure. Gabriele B-lines. No pneumothorax. The cardiomediastinal silhouette is similar to prior. No acute osseous abnormalities. Procedure Note Tal Devries MD - 10/18/2024 EXAMINATION: XR CHEST CLINICAL INFORMATION: SOB COMPARISON: None TECHNIQUE: Frontal view of the chest FINDINGS: The lungs are well-expanded. Central vascular and coarse interstitial prominence. Hazy right basilar and dense retrocardiac opacities. Small left and suspected small right layering pleural effusions. Thickening of the minor fissure. Gabriele B-lines. No pneumothorax. The cardiomediastinal silhouette is similar to prior. No acute osseous abnormalities. IMPRESSION: 1. Findings as above most consistent with pulmonary edema and left greater than right small bilateral pleural effusions. Please note, an underlying infectious/inflammatory process cannot be excluded. 2. Hazy right basilar and dense retrocardiac opacities may represent layering effusion and/or atelectasis, respectively. Interpreted by: Prem Coffman MD Technical Operations Vice President I personally reviewed the images and the resident's preliminary report and AGREE with the report as it is now presented ([email or web address]). Fuad Winter MD IMG DIAGNOSTI C IMAGING ORDERABLES * ECG 12 lead (10/18/2024 5:28 AM EST) Ventricular rate 89 BPM EKG [facility] QRS duration 88 ms EKG [facility] Q-T [facility] (Bazett) 446 ms EKG [facility] R axis 36 degrees EKG [facility] T axis 184 degrees EKG [facility] 10/18/2024 5:28 AM EST Narrative G [facility] - 10/18/2024 9:43 AM EST Normal sinus rhythm ST & T wave abnormality, consider lateral ischemia Abnormal ECG No previous ECGs available Confirmed by MD Ortiz Daniel ([id number]) on 10/18/2024 9:42:59 AM Procedure Note Alonso Ortiz MD - 10/18/[address] & T wave abnormality, consider lateral ischemia Abnormal ECG No previous ECGs available Confirmed by MD Ortiz Daniel ([id number]) on 10/18/2024 9:42:59 AM Fuad Winter MD [facility] * (ABNORMAL) POCT Glucose, Fingerstick (10/18/2024 5:24 AM EST) [facility] POC Glucose >500(H) 65 - 99 mg/dL 10/18/2024 5:25 AM EST Blood specimen / Unknown 10/18/2024 5:24 AM EST 10/18/2024 5:25 AM EST Fuad Winter MD POINT OF CARE TEST ORDERABLES HOSPITAL LAB See Below * Heparin Assay (Anti-Xa) (10/18/2024 5:16 AM EST) [facility] Anti Xa 0.72 IU/mL 10/18/2024 5:58 AM EST [facility] Comment: (NOTE) Heparin Thromboembolic/Standard/Full Dose Protocol: Therapeutic Range: ? Age 18+: ? 0.30 - 0.70 IU/mL ? Age 0 - 17: ?? 0.35 - 0.70 IU/mL ? Heparin Cardiac/Low Dose Protocol: ? Therapeutic Range: ? 0.30 - 0.50 IU/mL ? Low Molecular Weight Heparin: ? Therapeutic Range: ? Age 18+: ? 0.50 - 1.50 IU/mL ? Age 0 - 17: ?? 0.50 - 1.00 ??IU/mL ? Anticoagulant IV HEPARIN, UNFRACTIONATED 10/18/2024 5:18 AM EST Blood Plasma specimen / Unknown 10/18/2024 5:16 AM EST 10/18/2024 5:42 AM EST Fuad Winter MD LAB BLOOD ORD ERABLES Performing Organization Address City/[facility]/[place] [address], [place] [address] * (ABNORMAL) Partial Thromboplastin Time (PTT) (10/18/2024 5:16 AM EST) Anticoagulant IV HEPARIN, UNFRACTIONATED 10/18/2024 5:18 AM EST Partial Thromboplastin Time (PTT) 68(H) 25 - 36 seconds 10/18/2024 5:58 AM EST [facility] Blood Plasma specimen / Unknown 10/18/2024 5:16 AM EST 10/18/2024 5:42 AM EST Fuad Winter MD LAB BLOOD ORD ERABLES Performing Organization Address [facility]/[place] [address], [place] [address] * (ABNORMAL) Protime-INR (10/18/2024 5:16 AM EST) Anticoagulant IV HEPARIN, UNFRACTIONATED 10/18/2024 5:18 AM EST Prothrombin Time (PT) 13.9(H) 10.0 - 13.5 seconds 10/18/2024 5:58 AM [facility] INR 1.2 10/18/2024 5:58 AM [facility] Comment:INR Therapeutic Rang es: Standard dose anticoagulant 2.0 to 3.0, High dose anticoagulant 2.5-3.5. Blood Plasma specimen / Unknown 10/18/2024 5:16 AM EST 10/18/2024 5:42 AM EST Fuad Winter MD LAB BLOOD ORD ERABLES Performing Organization Address City/[facility] [place] [address], [place] [address] * (ABNORMAL) proBNP, N-terminal (BNP) (10/18/2024 5:16 AM EST) proBNP, N-terminal >70,000(H) <450 pg/mL 10/18/2024 7:21 AM [facility] Blood Plasma specimen / Unknown 10/18/2024 5:16 AM EST 10/18/2024 5:42 AM EST Fuad Winter MD LAB BLOOD ORD ERABLES Performing Organization Address [facility] [place] [address], [place] [address] * (ABNORMAL) B-Hydroxybutyrate (10/18/2024 5:16 AM EST) B-Hydroxybutyrate 3.63(H) <0.28 mmol/L 10/18/2024 6:38 AM [facility] Comment: In the presence of uncontrolled diabetes, serum beta-hydroxybutyrate levels greater than or equal to 3.80 mmol/L (patients age 16 and over) or greater than or equal to 3.00 mmol/L (patients under age 16) support a clinical diagnosis of Diabetic Ketoacidosis (DKA) - Ref: Diabetes Care 31: 643 (2007). Blood (Plasma/Serum) 10/18/2024 5:16 AM EST 10/18/2024 5:42 AM EST Fuad Winter MD LAB BLOOD ORD ERABLES Performing Organization Address [facility] [place] [address], [place] [address] * (ABNORMAL) Osmolality (10/18/2024 5:16 AM EST) Osmolality, Serum/Plasma 359(H) 285 - 295 mOsm/Kg 10/18/2024 6:43 AM [facility] Blood (Plasma/Serum) 10/18/2024 5:16 AM EST 10/18/2024 5:42 AM EST Fuad Winter MD LAB BLOOD ORD ERABLES Performing Organization Address [facility] [place] [address], [place] [address] * (ABNORMAL) Blood Gas, Venous (10/18/2024 5:16 AM EST) Venous Blood PH 7.18(LL) 7.33 - 7.43 10/18/2024 5:55 AM [facility] Comment:Test results repeate d. Venous pCO2 27(L) 35 - 50 mmHG 10/18/2024 5:55 AM [facility] Venous pO2 78(H) 0 - 60 mmHG 10/18/2024 5:55 AM [facility] Venous Total CO2 11(L) 23 - 29 mmol/L 10/18/2024 5:55 AM [facility] Respiratory Info NASAL 5 L/MIN 10/18/2024 5:17 AM EST Base Deficiency 17.1 mmol/L 5:55 AM [facility] Comment:Reference Range: Neg ative 2 to Positive 3 Blood Blood specimen / Unknown 10/18/2024 5:16 AM EST 10/18/2024 5:40 AM EST Fuad Winter MD LAB BLOOD ORD ERABLES Performing Organization Address City/[facility]/ZIP Co de Phone Number [place] [address] [place] [address], [facility] [address] [place] [address] * (ABNORMAL) Complete Blood Count, with Differential (10/18/2024 5:16 AM [facility]) White Blood Cell Count 11.5(H) 4.0 - 11.0 Thou/uL 10/18/2024 5:48 AM [facility] Platelet Count 265 150 - 450 Thou/uL 10/18/2024 5:48 AM [facility] Hemoglobin 8.5(L) 13.0 - 17.7 g/dL 10/18/2024 5:48 AM [facility] Hematocrit 27.7(L) 39.0 - 54.0 % 10/18/2024 5:48 AM [facility] Red Blood Cell Count 2.72(L) 4.50 - 6.20 Mil/uL 10/18/2024 5:48 AM [facility] MCV 102(H) 80 - 100 fL 10/18/2024 5:48 AM [facility] MCH 31.3(H) 27.0 - 31.0 pg 10/18/2024 5:48 AM [facility] MCHC 30.7 30.0 - 36.0 g/dL 10/18/2024 5:48 AM [facility] RDW 16.4(H) 11.5 - 14.5 % 10/18/2024 5:48 AM [facility] MPV 11.3 7.5 - 12.5 fL 10/18/2024 5:48 AM [facility] Neutrophils Auto 86.0 % 10/18/19 5:48 AM [facility] Immature Granulocytes 0.4 % 10/18/2024 5:48 AM [facility] Lymphocytes Auto 9.2 % 10/18/19 5:48 AM [facility] Monocytes Auto 4.3 % 10/18/2024 5:48 AM [facility] Eosinophils Auto 0.0 % 10/18/19 5:48 AM [facility] Basophils Auto 0.1 % 10/18/2024 5:48 AM [facility] Abs Neutrophils Auto 9.88(H) 2.00 - 7.50 Thou/uL 10/18/2024 5:48 AM [facility] Abs Immature Granulocytes 0.05 0.00 - 0.10 Thou/uL 10/18/2024 5:48 AM [facility] Abs Lymphocytes Auto 1.06(L) 1.50 - 4.50 Thou/uL 10/18/2024 5:48 AM [facility] Abs Monocytes Auto 0.49 0.20 - 1.50 Thou/uL 10/18/2024 5:48 AM [facility] Abs Eosinophils Auto 0.00 0.00 - 0.70 Thou/uL 10/18/2024 5:48 AM [facility] Abs Basophils Auto 0.01 0.00 - 0.20 Thou/uL 10/18/2024 5:48 AM [facility] Blood Blood specimen / Unknown 10/18/2024 5:16 AM EST 10/18/2024 5:42 AM EST Fuad Winter MD [place] [address], [place] [address] * (ABNORMAL) Troponin T, High Sensitivity - STAT and in 1 hour (10/18/2024 5:16 AM EST) [facility] High Sensitivity Troponin T 1,830(HH) <23 ng/L 10/18/2024 6:38 AM [facility] Delta (Change) NO PREVIOUS RESULT <3 10/18/2024 6:38 AM [facility] Blood (Plasma/Serum) 10/18/2024 5:16 AM EST 10/18/2024 5:42 AM EST Fuad Winter MD [place] [address], [place] [address] * Magnesium (10/18/2024 5:16 AM EST) [facility] Magnesium 1.7 1.6 - 2.7 mg/dL 10/18/2024 6:38 AM [facility] Blood (Plasma/Serum) 10/18/2024 5:16 AM EST 10/18/2024 5:42 AM EST Fuad Winter MD LAB BLOOD ORD ERABLES [address] [address], [address] [address] * (ABNORMAL) Basic Metabolic Panel (10/18/2024 5:16 AM EST) Glucose 569(HH) 65 - 99 mg/dL 10/18/2024 6:38 AM [facility] Comment:Fasting: <100 mg/dL, Non-Fasting: <200 mg/dL (ADA 2004) Blood Urea Nitrogen (BUN) 83(H) 8 - 21 mg/dL 10/18/2024 6:38 AM [facility] Creatinine 4.9(H) 0.5 - 1.3 mg/dL 10/18/2024 6:38 AM [facility] eGFR 11(L) >59 10/18/2024 6:38 AM [facility] Comment:CKD-EPI (2020) in mL /min/1.73 sq meters. Sodium 140 136 - 145 mmol/L 10/18/2024 6:38 AM [facility] Potassium 4.9 3.4 - 5.3 mmol/L 10/18/2024 6:38 AM [facility] Chloride 104 98 - 107 mmol/L 10/18/2024 6:38 AM [facility] CO2 8(LL) 22 - 33 mmol/L 10/18/2024 6:38 AM [facility] Anion Gap 28(H) 7 - 17 10/18/2024 6:38 AM [facility] Calcium 6.6(LL) 8.7 - 10.5 mg/dL 10/18/2024 6:38 AM [facility] BUN/Creatinine Ratio 17 10.0 - 25.0 Ratio 10/18/2024 6:38 AM [facility] Blood (Plasma/Serum) 10/18/2024 5:16 AM EST 10/18/2024 5:42 AM EST Fuad Winter MD LAB BLOOD ORD ERABLES [facility] [address] [place] [address], [facility] [address] [place] [address] documented in this encounter Visit Diagnoses Not on filedocumented in this encounter Admitting Diagnoses Diagnosis DKA (diabetic ketoacidosis) (HCC) 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, not stated as uncontrolled documented in this encounter Administered Medications Inactive Administered Medications - up to 1 most recent administrations Medication Order MAR Action Action Date Dose Rate Site sodium chloride 0.9 % (NS) bolus Continuous PRN, Starting on Tue10/31/24 at 1824, Intra-Procedure (Cath) New Bag 10/31/2024 6:24 PM EST 250 mL aspirin chewable tablet 81 mg 81 mg, Oral, Daily, First dose on Tue10/18/24 at 1657 Given 11/01/2024 8:24 AM EST 81 mg atorvastatin (LIPITOR) tablet 80 mg 80 mg, Oral, Daily, First dose on Tue10/18/24 at 1656 Given 11/01/2024 8:25 AM EST 80 mg bisacodyl (DULCOLAX) suppository 10 mg 10 mg, Rectal, Daily PRN, constipation, if no bowel movement by day 2, Starting on Tue10/18/24 at 0703 calcitriol (ROCALTROL) capsule 0.5 mcg 0.5 mcg, Oral, Daily, First dose on Tue10/23/24 at 1000, *DO NOT CHEW OR CRUSH* Given 11/01/2024 8:25 AM EST 0.5 mcg calcium carbonate (TUMS) chewable tablet 500 mg 500 mg, Oral, Daily, First dose (after last modification) on Tue10/31/24 at 0900 Given 11/01/2024 8:24 AM EST 500 mg chlorhexidine (PERIDEX) 0.12 % oral solution 15 mL 15 mL, Mouth/Throat, 2 times daily, First dose on Tue10/18/24 at 0900, Swab lips and mouth Given 10/31/2024 8:31 PM EST 15 mL darbepoetin kelley (ARANESP) injection 60 mcg 60 mcg, Subcutaneous, Weekly, First dose on Tue10/23/24 at 1200, Do not shake. Do not dilute or administer in conjunction with other drug solutions., Patient Has Documented Problem of ESRD (ICD-10: N18.6) and MAYUR is being used to treat symptoms of ESRD? No Given 10/30/2024 9:54 AM EST 60 mcg Abdominal Tissue dextrose 50 % solution 12.5 g 12.5 g, Intravenous, Every 15 min PRN, low blood sugar, between 50 and 69 mg/dL, Starting on Tue10/19/24 at 1616, For patient with IV access who is NPO or unable to swallow. See Hypoglycemia Management guideline. Given 10/27/2024 1:06 AM EST 12.5 g dextrose 50 % solution 25 g 25 g, Intravenous, Every 15 min PRN, low blood sugar, less than 50 mg/dL, Starting on Tue10/19/24 at 1616, For patient with IV access who is NPO or unable to swallow. See Hypoglycemia Management guideline. glucagon (GLUCAGEN) injection 1 mg 1 mg, Intramuscular, Daily PRN, low blood sugar, for Blood Glucose LESS than 70 mg/dL and NPO and no IV access, Starting on Tue10/19/24 at 1616, Glucagon may be repeated x 1 (for a total of 2 doses per hypoglycemic event) if patient remains hypoglycemic after first dose. Do not use with hepatic disease or alcohol intoxication. See Hypoglycemia Management guideline. Reconstitute vial with 1 mL sterile water for injection. glucose (GLUTOSE 15) 40 % oral gel 37.5 g 37.5 g (1 Tube), Oral, Every 15 min PRN, low blood sugar, between 50 and 69 mg/dL, Starting on Tue10/19/24 at 1616, Juice or soda is preferred for alert patients (4 oz juice or 6 oz soda). Use glucose gel for patients with fluid restriction. See Hypoglycemia Management guideline. Each 37.5 gram tube of glucose 40 % = 15 grams of glucose. glucose (GLUTOSE 15) 40 % oral gel 75 g 75 g (2 Tube), Oral, Every 15 min PRN, low blood sugar, less than 50 mg/dL, Starting on Tue10/19/24 at 1616, Juice or soda is preferred for alert patients (8 oz juice or 12 oz soda). Use glucose gel for patients with fluid restriction. See Hypoglycemia Management guideline. Each 37.5 gram tube of glucose 40 % = 15 grams of glucose. heparin (porcine) 1000 unit/mL injection As needed, Starting on Tue10/31/24 at 1820, Intra-Procedure (Cath) Given 10/31/2024 6:20 PM EST 5,000 Units Right Arm heparin (porcine) 5000 unit/mL injection 5,000 Units 5,000 Units, Subcutaneous, Every 8 hours scheduled, First dose on Tue11/01/24 at 0930, For subcutaneous use the injection sites should be rotated (usually left and right portions of the abdomen, above iliac crest). Given 11/01/2024 1:57 PM EST 5,000 Units Abdominal Tissue hydrALAZINE (APRESOLINE) tablet 25 mg 25 mg, Oral, Every 8 hours scheduled, First dose on Tue11/01/24 at 1400, Hold for SBP less than 100 mmHg. Notify provider if a dose is held. Given 11/01/2024 1:13 PM EST 25 mg insulin glargine (LANtus/SEMGLEE) 100 units/mL injection 8 Units 8 Units, Subcutaneous, Daily, First dose (after last modification) on Tue11/01/24 at 1200, Do not hold basal for NPO status, at risk for DKA, if NPO dose may need to be reduced, notify provider. Given 11/01/2024 12:07 PM EST 8 Units Left Arm insulin lispro (HumaLOG/ADMELOG) 100 units/mL injection 1-4 Units 1-4 Units, Subcutaneous, Nightly and 0200, First dose (after last modification) on Tue10/26/24 at 2100, DO NOT HOLD IF NPO Notify primary team overnight if Blood Glucose <70 or >350 mg/dL. For BG 201-250 administer 1 unit For BG 251-300 administer 2 units For BG 301-350 administer 3 units For BG MORE than 350, administer 4 units Given 10/28/2024 9:38 PM EST 1 Units Right Arm insulin lispro (HumaLOG/ADMELOG) 100 units/mL injection 1-6 Units 1-6 Units, Subcutaneous, 3 times daily with meals, First dose (after last reorder) on Tue10/20/24 at 1330, DO NOT HOLD IF NPO Notify provider if Blood Glucose LESS than 70 For BG 141-180 administer 1 unit For BG 181-220 administer 2 units For BG 221-260 administer 3 units For BG 261-300 administer 4 units For BG 301-340 administer 5 units For BG MORE than 340, administer 6 units AND notify provider Given 11/01/2024 12:08 PM EST 2 Units Left Arm insulin lispro (HumaLOG/ADMELOG) 100 units/mL injection 2-9 Units 2-9 Units, Subcutaneous, 3 times daily with meals, First dose (after last modification) on Tue10/29/24 at 0800, MEAL BOLUS ICR: 1: 7g Notify Endo AP if BG <100 prior to giving insulin given age Document Carb Count in MAR Comment Section Hold if NPO or if eats < 14 grams of carbs Give 2 units if eats/drinks 14-20 grams of carbs Give 3 units if eats/drinks 21-27 grams of carbs? Give 4 units if eats/drinks 28-34 grams of carbs Give 5 units if eats/drinks 35-41 grams of carbs Give 6 units if eats/drinks 42-48 grams of carbs Give 7 units if eats/drinks 49-55 grams of carbs Give 8 units if eats/drinks 56-62 grams of carbs Give 9 units if eats/drinks 63-69 grams of carbs Given 11/01/2024 2:00 PM EST 8 Units Left Arm iohexol (OMNIPAQUE) 350 mg/mL injection As needed, Starting on Tue10/31/24 at 1831, Intra-Procedure (Cath) Given 10/31/2024 6:31 PM EST 30 mL isosorbide dinitrate (ISORDIL) tablet 10 mg 10 mg, Oral, 3 times daily, First dose on Tue11/01/24 at 1300, Hold for SBP less than 90 mmHg. Notify provider if a dose is held. Given 11/01/2024 12:10 PM EST 10 mg lactulose (ENULOSE) 10 gm/15 mL solution 20 g 20 g (30 mL), Oral, Every 4 hours PRN, constipation, if no bowel movment by day 3, Starting on Tue10/18/24 at 0703, Administer until bowel movement levothyroxine (SYNTHROID, LEVOTHROID) tablet 25 mcg 25 mcg, Oral, Daily, First dose on Tue10/19/24 at 1030, Administer in the morning on an empty stomach, at least 30 minutes before food. Hold tube feedings 1 hour before and at least 1 hour after oral levothyroxine administration Tablets may be crushed and mixed in 5 to 10 mL of water. Given 11/01/2024 6:14 AM EST 25 mcg lidocaine (XYLOCAINE) 2 % injection As needed, Starting on Tue10/31/24 at 1818, Intra-Procedure (Cath) Given 10/31/2024 6:18 PM EST 5 mL Right Radial linagliptin (TRADJENTA) tablet 5 mg 5 mg, Oral, Daily, First dose on Tue10/26/24 at 1000, HOLD for NPO, Give once eating Given 11/01/2024 8:25 AM EST 5 mg metoPROLOL SUCCINATE (TOPROL-XL) 24 hr tablet 75 mg 75 mg, Oral, Daily, First dose (after last modification) on Tue10/25/24 at 0900, Hold for HR less than 45 bpm and/or SBP less than 90 mmHg. Notify provider if a dose is held. *DO NOT CHEW OR CRUSH* Given 11/01/2024 8:24 AM EST 75 mg naloxone (NARCAN) 0.4 mg/mL injection 0.4 mg 0.4 mg, Intravenous, Every 5 min PRN, opioid reversal, respiratory depression, Starting on Tue10/18/24 at 0703, Notify provider if administered nitroGLYCERCIN 100 mcg/mL injection As needed, Starting on Tue10/31/24 at 1820, Intra-Procedure (Cath) Given 10/31/2024 6:20 PM EST 100 mcg Right Arm senna-docusate (SENNA-S) 8.6-50 MG tablet 2 tablet 2 tablet, Oral, Nightly, First dose on Tue10/18/24 at 2100, Hold for diarrhea Given 10/27/2024 8:26 PM EST 2 tablets verapamil (ISOPTIN) injection As needed, Starting on Tue10/31/24 at 1820, Intra-Procedure (Cath) Given 10/31/2024 6:20 PM EST 5 mg Right Arm documented in this encounter Active and Recently Administered Medications Times are shown in EST. Scheduled Medication Order 10/30/2024 10/31/2024 11/01/2024 aspirin chewable tablet 81 mg 81 mg, Oral, Daily, First dose on Tue10/18/24 at 1657 0952 (Given - Provider: Torie Kwan RN) 0914 (Given - Provider: Oksana Zhang RN) 0824 (Given - Provider: Tena Meza, KENDALL) atorvastatin (LIPITOR) tablet 80 mg 80 mg, Oral, Daily, First dose on Tue10/18/24 at 1656 0951 (Given - Provider: Torie Kwan RN) 0914 (Given - Provider: Oksana Zhang RN) 0825 (Given - Provider: Tena Meza, KENDALL) calcitriol (ROCALTROL) capsule 0.5 mcg 0.5 mcg, Oral, Daily, First dose on Tue10/23/24 at 1000, *DO NOT CHEW OR CRUSH* 0949 (Given - Provider: Torie Kwan RN) 0914 (Given - Provider: Oksana Zhang RN) 0825 (Given - Provider: Tena Meza RN) calcium carbonate (TUMS) chewable tablet 500 mg 500 mg, Oral, Daily, First dose (after last modification) on Tue10/31/24 at 0900 0920 (Given - Provider: Oksana Zhang RN) 0824 (Given - Provider: Tena Meza RN) chlorhexidine (PERIDEX) 0.12 % oral solution 15 mL 15 mL, Mouth/Throat, 2 times daily, First dose on Tue10/18/24 at 0900, Swab lips and mouth 0951 (Given - Provider: Torie Kwan RN)2157 (Given - Provider: Ольга Nugent RN) 0913 (Given - Provider: Oksana Zhang, KENDALL)2030 (Given - Provider: Edilson Yao RN) 0826 (Not Given - Provider: Tena Meza RN - Reason: Dose held per order parameters) darbepoetin kelley (ARANESP) injection 60 mcg 60 mcg, Subcutaneous, Weekly, First dose on Tue10/23/24 at 1200, Do not shake. Do not dilute or administer in conjunction with other drug solutions., Patient Has Documented Problem of ESRD (ICD-10: N18.6) and MAYUR is being used to treat symptoms of ESRD? No 0954 (Given - Provider: Torie Kwan RN) heparin (porcine) 5000 unit/mL injection 5,000 Units 5,000 Units, Subcutaneous, Every 8 hours scheduled, First dose on Tue11/01/24 at 0930, For subcutaneous use the injection sites should be rotated (usually left and right portions of the abdomen, above iliac crest). 0914 (Given - Provider: Tena Meza, KENDALL)1357 (Given - Provider: Tena Meza, KENDALL) hydrALAZINE (APRESOLINE) tablet 25 mg 25 mg, Oral, Every 8 hours scheduled, First dose on Tue11/01/24 at 1400, Hold for SBP less than 100 mmHg. Notify provider if a dose is held. 1313 (Given - Provider: Tean Meza, KENDALL) insulin glargine (LANtus/SEMGLEE) 100 units/mL injection 10 Units (CANCELED) 10 Units, Subcutaneous, Daily, First dose (after last modification) on Tue10/30/24 at 0900, Do not hold basal for NPO status, at risk for DKA, if NPO dose may need to be reduced, notify provider. 0954 (Given - Provider: Torie Kwan RN) 0919 (Not Given - Provider: Oksana Zhang RN - Reason: See Provider Order - Comment: new order for lantus 8 units) insulin glargine (LANtus/SEMGLEE) 100 units/mL injection 8 Units (CANCELED) 8 Units, Subcutaneous, Daily, First dose (after last modification) on Tue10/31/24 at 0930, Do not hold basal for NPO status, at risk for DKA, if NPO dose may need to be reduced, notify provider. 0920 (Given - Provider: Oksana Zhang, KENDALL) insulin glargine (LANtus/SEMGLEE) 100 units/mL injection 8 Units 8 Units, Subcutaneous, Daily, First dose (after last modification) on Tue11/01/24 at 1200, Do not hold basal for NPO status, at risk for DKA, if NPO dose may need to be reduced, notify provider. 1207 (Given - Provider: Tena Mzea RN) insulin lispro (HumaLOG/ADMELOG) 100 units/mL injection 1-4 Units 1-4 Units, Subcutaneous, Nightly and 0200, First dose (after last modification) on Tue10/26/24 at 2100, DO NOT HOLD IF NPO Notify primary team overnight if Blood Glucose <70 or >350 mg/dL. For BG 201-250 administer 1 unit For BG 251-300 administer 2 units For BG 301-350 administer 3 units For BG MORE than 350, administer 4 units 0235 (Not Given - Provider: Ольга Nugent RN - Reason: Dose held per order parameters)2158 (Not Given - Provider: Ольга Nugent RN - Reason: Dose held per order parameters - Comment: BG 147) 0230 (Not Given - Provider: Ольга Nugent RN - Reason: Dose held per order parameters)212 (Not Given - Provider: Edilson Yao RN - Reason: Dose held per order parameters - Comment: 128 BG) 0211 (Not Given - Provider: Edilson Yao RN - Reason: Dose held per order parameters) insulin lispro (HumaLOG/ADMELOG) 100 units/mL injection 1-6 Units 1-6 Units, Subcutaneous, 3 times daily with meals, First dose (after last reorder) on Tue10/20/24 at 1330, DO NOT HOLD IF NPO Notify provider if Blood Glucose LESS than 70 For BG 141-180 administer 1 unit For BG 181-220 administer 2 units For BG 221-260 administer 3 units For BG 261-300 administer 4 units For BG 301-340 administer 5 units For BG MORE than 340, administer 6 units AND notify provider 0909 (Not Given - Provider: Torie Kwan RN - Reason: Dose held per order parameters)1254 (Not Given - Provider: Torie Kwan RN - Reason: Dose held per order parameters)1808 (Not Given - Provider: Torie Kwan RN - Reason: Dose held per order parameters) 0851 (Not Given - Provider: Oksana Zhang RN - Reason: Dose held per order parameters)1222 (Not Given - Provider: Oksana Zhang RN - Reason: Dose held per order parameters)1646 (Not Given - Provider: Oksana Zhang RN - Reason: Dose held per order parameters - Comment: sugar 74 at 1645 10/31/2024) 0826 (Not Given - Provider: Tena Meza RN - Reason: Dose held per order parameters - Comment: 111)1208 (Given - Provider: Tena Meza RN) insulin lispro (HumaLOG/ADMELOG) 100 units/mL injection 2-9 Units 2-9 Units, Subcutaneous, 3 times daily with meals, First dose (after last modification) on Tue10/29/24 at 0800, MEAL BOLUS ICR: 1: 7g Notify Endo AP if BG <100 prior to giving insulin given age Document Carb Count in MAR Comment Section Hold if NPO or if eats < 14 grams of carbs Give 2 units if eats/drinks 14-20 grams of carbs Give 3 units if eats/drinks 21-27 grams of carbs? Give 4 units if eats/drinks 28-34 grams of carbs Give 5 units if eats/drinks 35-41 grams of carbs Give 6 units if eats/drinks 42-48 grams of carbs Give 7 units if eats/drinks 49-55 grams of carbs Give 8 units if eats/drinks 56-62 grams of carbs Give 9 units if eats/drinks 63-69 grams of carbs 0910 (Not Given - Provider: Torie Kwan RN - Reason: NPO)1254 (Not Given - Provider: Torie Kwan RN - Reason: NPO)1830 (Given - Provider: Torie Kwan RN) 0911 (Not Given - Provider: Oksana Zhang RN - Reason: NPO)1223 (Hold - Provider: Oksana Zhang RN - Reason: NPO)1647 (Hold - Provider: Oksana Zhang RN - Reason: NPO) 0912 (Given - Provider: Tena Meza RN - Comment: 51 grams eaten)1400 (Given - Provider: Tena Meza RN - Comment: 60 grams) isosorbide dinitrate (ISORDIL) tablet 10 mg 10 mg, Oral, 3 times daily, First dose on Tue11/01/24 at 1300, Hold for SBP less than 90 mmHg. Notify provider if a dose is held. 1210 (Given - Provider: Tena Meza, KENDALL) levothyroxine (SYNTHROID, LEVOTHROID) tablet 25 mcg 25 mcg, Oral, Daily, First dose on Tue10/19/24 at 1030, Administer in the morning on an empty stomach, at least 30 minutes before food. Hold tube feedings 1 hour before and at least 1 hour after oral levothyroxine administration Tablets may be crushed and mixed in 5 to 10 mL of water. 0648 (Given - Provider: Ольга Nugent RN) 0541 (Given - Provider: Ольга Nugent RN) 0614 (Given - Provider: Edilson Yao, KENDALL) linagliptin (TRADJENTA) tablet 5 mg 5 mg, Oral, Daily, First dose on Tue10/26/24 at 1000, HOLD for NPO, Give once eating 0949 (Given - Provider: Torie Kwan RN) 0914 (Given - Provider: Oksana Zhang RN) 0825 (Given - Provider: Tena Meza, KENDALL) metoPROLOL SUCCINATE (TOPROL-XL) 24 hr tablet 75 mg 75 mg, Oral, Daily, First dose (after last modification) on Tue10/25/24 at 0900, Hold for HR less than 45 bpm and/or SBP less than 90 mmHg. Notify provider if a dose is held. *DO NOT CHEW OR CRUSH* 0950 (Given - Provider: Torie Kwan RN) 0914 (Given - Provider: Oksana Zhang, KENDALL) 0824 (Given - Provider: Tena Meza, KENDALL) senna-docusate (SENNA-S) 8.6-50 MG tablet 2 tablet 2 tablet, Oral, Nightly, First dose on Tue10/18/24 at 2100, Hold for diarrhea 2157 (Not Given - Provider: Ольга Nugent RN - Reason: Patient/family refused) 2030 (Not Given - Provider: Edilson Yao RN - Reason: Patient/family refused) Continuous Medication Order 10/30/2024 10/31/2024 11/01/2024 sodium chloride 0.9% (NS) infusion (CANCELED) 50 mL/hr, Intravenous, Continuous, Starting on Tue10/31/24 at 0800, For 6 hours, For prevention of ALISA due to contrast - pre-procedure 0900 (Canceled Entry - Provider: Oksana Zhang RN)0910 (New Bag - Provider: Oksana Zhang, KENDALL)1600 (Stopped - Provider: Oksana Zhang RN) sodium chloride 0.9% (NS) infusion () 3 mL/kg/hr ? 65.2 kg (195.6 mL/hr), Intravenous, Continuous, Starting on Tue10/31/24 at 1900, For 4 hours, Do not modify orders without contacting interventional cardiology attending and/or fellow. 1856 (New Bag - Provider: Amita Burr RN)2100 (Canceled Entry - Provider: Edilson Yao RN) 0211 (Stopped - Provider: Edilson Yao RN) heparin (porcine) IV infusion 25,000 units in 500 mL 0.45% NaCl (premix) (CANCELED) 16.536 mL/hr (12 Units/kg/hr ? 68.9 kg Order-specific weight), Intravenous, Continuous, Starting on Cathy 10/18/24 at 0518, HEPARIN CARDIAC/LOW DOSE PROTOCOL: Initial Infusion Dose: See dose above, MAX initial dose 1,000 units/hr (83 kg and above) Dose adjustment instructions: - Obtain a Heparin Anti-factor Xa (Anti-Xa) level 6 hours after start of infusion and 6 hours after every dose change. - Once patient is within therapeutic range for two consecutive Anti-Xa measurements, then obtain Anti-Xa daily with AM labs until infusion is discontinued. If a heparin infusion is interrupted for less than or equal to 90 minutes: ~ Restart heparin infusion at the most recent dose and draw Anti-Xa level in 6 hours. ~ No bolus required. Adjust per protocol. If a heparin infusion is interrupted for greater than 90 minutes or if heparin interruption for unknown time period: ~ Restart heparin infusion at most recent dose. ~ Draw stat Anti-Xa level (Do not adjust infusion dose based on this Anti-Xa result). ~ Notify provider for guidance regarding need for additional heparin bolus and to verify heparin infusion dose. ~ Draw Anti-Xa in 6 hours and proceed per protocol. - Document all pertinent communications with providers in the patient? s record. - Adjust infusion based on Anti-Xa result per Cardiac/Low Dose protocol table: Concentration = 50 units/mL, Indication for Anticoagulation: Acute IA 0739 (Handoff - Provider: Torie Kwan RN - Comment: 15units)1405 (New Bag - Provider: Torie Kwan RN - Comment: 15units)1920 (Handoff - Provider: Sunitha Castillo RN - Comment: 15 units) 0600 (Rate/Dose Verify - Provider: Ольга Nugent RN)0755 (Handoff - Provider: Oksana Zhang RN)0917 (Rate Change - High Risk Medication - Provider: Oksana Zhang, RN)1637 (New Bag - Provider: Oksana Zhang RN)1800 (Stopped - Provider: Amita Burr RN) PRN Medication Order 10/30/2024 10/31/2024 11/01/2024 sodium chloride 0.9 % (NS) bolus (COMPLETED) Continuous PRN, Starting on Tue10/31/24 at 1824, Intra-Procedure (Cath) 1824 (New Bag - Provider: Gloria Fenton RN) bisacodyl (DULCOLAX) suppository 10 mg 10 mg, Rectal, Daily PRN, constipation, if no bowel movement by day 2, Starting on Cathy 10/18/24 at 0703 dextrose 50 % solution 12.5 g(Linked Group 1) 12.5 g, Intravenous, Every 15 min PRN, low blood sugar, between 50 and 69 mg/dL, Starting on Tue10/19/24 at 1616, For patient with IV access who is NPO or unable to swallow. See Hypoglycemia Management guideline. dextrose 50 % solution 25 g(Linked Group 1) 25 g, Intravenous, Every 15 min PRN, low blood sugar, less than 50 mg/dL, Starting on Tue10/19/24 at 1616, For patient with IV access who is NPO or unable to swallow. See Hypoglycemia Management guideline. glucagon (GLUCAGEN) injection 1 mg(Linked Group 1) 1 mg, Intramuscular, Daily PRN, low blood sugar, for Blood Glucose LESS than 70 mg/dL and NPO and no IV access, Starting on Tue10/19/24 at 1616, Glucagon may be repeated x 1 (for a total of 2 doses per hypoglycemic event) if patient remains hypoglycemic after first dose. Do not use with hepatic disease or alcohol intoxication. See Hypoglycemia Management guideline. Reconstitute vial with 1 mL sterile water for injection. glucose (GLUTOSE 15) 40 % oral gel 37.5 g(Linked Group 1) 37.5 g (1 Tube), Oral, Every 15 min PRN, low blood sugar, between 50 and 69 mg/dL, Starting on Tue10/19/24 at 1616, Juice or soda is preferred for alert patients (4 oz juice or 6 oz soda). Use glucose gel for patients with fluid restriction. See Hypoglycemia Management guideline. Each 37.5 gram tube of glucose 40 % = 15 grams of glucose. glucose (GLUTOSE 15) 40 % oral gel 75 g(Linked Group 1) 75 g (2 Tube), Oral, Every 15 min PRN, low blood sugar, less than 50 mg/dL, Starting on Tue10/19/24 at 1616, Juice or soda is preferred for alert patients (8 oz juice or 12 oz soda). Use glucose gel for patients with fluid restriction. See Hypoglycemia Management guideline. Each 37.5 gram tube of glucose 40 % = 15 grams of glucose. heparin (porcine) 1000 unit/mL injection (CANCELED) As needed, Starting on Tue10/31/24 at 1820, Intra-Procedure (Cath) 1820 (Given - Provider: Calixto Ureña MD) iohexol (OMNIPAQUE) 350 mg/mL injection (CANCELED) As needed, Starting on Tue10/31/24 at 1831, Intra-Procedure (Cath) 1831 (Given - Provider: Calixto Ureña MD) lactulose (ENULOSE) 10 gm/15 mL solution 20 g 20 g (30 mL), Oral, Every 4 hours PRN, constipation, if no bowel movment by day 3, Starting on Cathy 10/18/24 at 0703, Administer until bowel movement 1425 (Not Given - Provider: Tena Meza RN - Reason: Dose held per order parameters) lidocaine (XYLOCAINE) 2 % injection (CANCELED) As needed, Starting on Tue10/31/24 at 1818, Intra-Procedure (Cath) 1818 (Given - Provider: Calixto Ureña MD) naloxone (NARCAN) 0.4 mg/mL injection 0.4 mg 0.4 mg, Intravenous, Every 5 min PRN, opioid reversal, respiratory depression, Starting on Cathy 10/18/24 at 0703, Notify provider if administered nitroGLYCERCIN 100 mcg/mL injection (CANCELED) As needed, Starting on Tue10/31/24 at 1820, Intra-Procedure (Cath) 1820 (Given - Provider: Calixto Ureña MD) verapamil (ISOPTIN) injection (CANCELED) As needed, Starting on Tue10/31/24 at 1820, Intra-Procedure (Cath) 1820 (Given - Provider: Calixto Ureña MD) Linked Groups Order Group 1: glucose (GLUTOSE 15) 40 % oral gel 37.5 gJump to med 37.5 g (1 Tube), Oral, Every 15 min PRN, low blood sugar, between 50 and 69 mg/dL, Starting on Tue10/19/24 at 1616, Juice or soda is preferred for alert patients (4 oz juice or 6 oz soda). Use glucose gel for patients with fluid restriction. See Hypoglycemia Management guideline. Each 37.5 gram tube of glucose 40 % = 15 grams of glucose. Or glucose (GLUTOSE 15) 40 % oral gel 75 gJump to med 75 g (2 Tube), Oral, Every 15 min PRN, low blood sugar, less than 50 mg/dL, Starting on Tue10/19/24 at 1616, Juice or soda is preferred for alert patients (8 oz juice or 12 oz soda). Use glucose gel for patients with fluid restriction. See Hypoglycemia Management guideline. Each 37.5 gram tube of glucose 40 % = 15 grams of glucose. Or dextrose 50 % solution 12.5 gJump to med 12.5 g, Intravenous, Every 15 min PRN, low blood sugar, between 50 and 69 mg/dL, Starting on Tue10/19/24 at 1616, For patient with IV access who is NPO or unable to swallow. See Hypoglycemia Management guideline. Or dextrose 50 % solution 25 gJump to med 25 g, Intravenous, Every 15 min PRN, low blood sugar, less than 50 mg/dL, Starting on Tue10/19/24 at 1616, For patient with IV access who is NPO or unable to swallow. See Hypoglycemia Management guideline. Or glucagon (GLUCAGEN) injection 1 mgJump to med 1 mg, Intramuscular, Daily PRN, low blood sugar, for Blood Glucose LESS than 70 mg/dL and NPO and no IV access, Starting on Tue10/19/24 at 1616, Glucagon may be repeated x 1 (for a total of 2 doses per hypoglycemic event) if patient remains hypoglycemic after first dose. Do not use with hepatic disease or alcohol intoxication. See Hypoglycemia Management guideline. Reconstitute vial with 1 mL sterile water for injection. documented in this encounter Additional Health Concerns Infection [...] documented as of this encounter Care Teams Foundry Superintendant Relationship Specialty Start Date End Date Diaz Akers MD PCP - General Internal Medicine 10/20/24 documented as of this encounter
--- OUTSIDE RECORDS SUMMARY | 2024-11-08 16:35 | XMS_ITS | Clinical Summary ---
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 Active aspirin enteric coated (ECOTRIN LOW STRENGTH) 81 MG EC tablet Take 1 tablet (81 mg total) by mouth daily. Active terazosin (HYTRIN) 5 MG capsule Take 1 capsule (5 mg total) by mouth nightly. Active calcitriol (ROCALTROL) 0.5 MCG capsuleIndications :Diabetic ketoacidosis without coma associated with type 2 diabetes mellitus (HCC) Take 1 capsule (0.5 mcg total) by mouth daily. 30 capsule 11/02/2024 5 Active atorvastatin (LIPITOR) 80 MG tabletIndications: NSTEMI (non-ST elevated myocardial infarction) (HCC) Take 1 tablet (80 mg total) by mouth daily. 30 tablet 11/02/2024 5 Active calcium carbonate (TUMS) 500 MG chewable tabletIndications: NSTEMI (non-ST elevated myocardial infarction) (HCC) Chew 1 tablet (500 mg total) daily. 30 tablet 11/02/2024 5 Active hydrALAZINE (APRESOLINE) 25 MG tabletIndications: NSTEMI (non-ST elevated myocardial infarction) (HCC) Take 1 tablet (25 mg total) by mouth every 8 (eight) hours around the clock. 90 tablet 11/01/2024 5 Active isosorbide dinitrate (ISORDIL) 10 MG tabletIndications: NSTEMI (non-ST elevated myocardial infarction) (HCC) Take 1 tablet (10 mg total) by mouth 3 (three) times a day in the morning, mid-day and early evening. 90 tablet 11/01/2024 5 Active linagliptin (TRADJENTA) 5 MG TabIndications:Katherine betic ketoacidosis without coma associated with type 2 diabetes mellitus (HCC) Take 1 tablet (5 mg total) by mouth daily. 30 tablet 11/02/2024 5 Active metoPROLOL SUCCINATE (TOPROL-XL) 25 MG 24 hr tabletIndications: NSTEMI (non-ST elevated myocardial infarction) (HCC) Take 3 tablets (75 mg total) by mouth daily. 90 tablet 11/02/2024 5 Active Alcohol Swabs 70 % PadsIndications:Di abetic ketoacidosis without coma associated with type 2 diabetes mellitus (HCC) Use as directed. 100 Pad(s) 11/01/2024 5 Active insulin glargine (LANtus/SEMGLEE SOLOSTAR) 100 units/mL prefilled pen injectionIndicatio ns:Diabetic ketoacidosis without coma associated with type 2 diabetes mellitus (HCC) Inject 8 Units under the skin daily. 15 mL 11/01/2024 Active BD Pen Needle Debby U/F 32G X 4 MM MiscIndications:Di abetic ketoacidosis without coma associated with type 2 diabetes mellitus (HCC) Use as directed 100 pen needle 11/01/2024 5 Active insulin lispro (HumaLOG KWIKPEN) 100 UNIT/ML prefilled pen injectionIndicatio ns:Diabetic ketoacidosis without coma associated with type 2 diabetes mellitus (HCC) Inject 0-4 Units under the skin 3 (three) times a day before meals. Hold if not eating, Take 4 units with a full meal and 2 units if eating 50% of meal 15 mL 11/01/2024 Active BD Pen Needle Debby U/F 32G X 4 MM MiscIndications:Di abetic ketoacidosis without coma associated with type 2 diabetes mellitus (HCC) Use as directed 100 pen needle 11/01/2024 Active amLODIPine (NORVASC) 5 MG tablet Take 1 tablet (5 mg total) by mouth daily. Discontinue d(Stop Taking at Discharge) carvedilol (COREG) 6.25 MG tablet Take 1 tablet (6.25 mg total) by mouth 2 (two) times a day with meals. Discontinue d(Stop Taking at Discharge) allopurinol (ZYLOPRIM) 100 mg tablet Take 1 tablet (100 mg total) by mouth daily. Discontinue d(Stop Taking at Discharge) clopidogrel (PLAVIX) 75 MG tablet Take 1 tablet (75 mg total) by mouth daily. Discontinue d(Stop Taking at Discharge) sodium bicarbonate 650 MG tablet Take 1 tablet (650 mg total) by mouth 2 (two) times a day. Discontinue d(Stop Taking at Discharge) spironolactone (ALDACTONE) 25 MG tablet Take 1 tablet (25 mg total) by mouth daily. Discontinue d(Stop Taking at Discharge) sitaGLIPtin (JANUVIA) 100 MG tablet Take 1 tablet (100 mg total) by mouth daily. Discontinue d(Stop Taking at Discharge) calcitRIOL (ROCALTROL) 0.25 MCG capsule Take 1 capsule (0.25 mcg total) by mouth once a week. Tuesdays10/01/2024 Discontinue d(Stop Taking at Discharge) Active Problems Problem Noted Date Diagnosed Date NSTEMI (non-ST elevated myocardial infarction) 0 10/22/2024 COVID 10/22/2024 Heart failure with reduced ejection fraction Pulmonary edema with left heart failure 10/22/19 DKA (diabetic ketoacidosis) 10/18/2024 Encounters Date Type Department Care Team Description 10/31/2024 5:21 PM EST - 10/31/2024 6:26 PM EST Surgery [facility] [place] [facility] - Cardiac Catheterization Laboratory [address] [place] [address] Calixto Ureña MD CORONARY ANGIO W/LV 10/19/2024 Scanned Document CARDIOLOGY IP [address] [place] [address] JordanSejal rodriguez Tonia 10/18/2024 5:10 AM EST - 11/01/2024 4:42 PM EST Hospital Encounter [facility] [address] [place] [address] Fuad Winter MD Perkins, MD El Ruiz, MD Ruperto Barrow, MD Jarek Sanchez, MD Alexandr Rojas, MD Chilo Ludwig, MD Vel Pat, MD Bruna Leija, Jorge Baum, MD Ryan, MD Mitchell Gates Moaz, MD Iftikhar, Osmar Jacques MD NSTEMI (non-ST elevated myocardial infarction) (HCC) (Primary Dx); Diabetic ketoacidosis without coma associated with type 2 diabetes mellitus (HCC) Discharge Disposition: Home with Health Care Services 10/18/2024 Travel from Last 3 Months Social History Tobacco Use Types Packs/Day Years Used Date Smoking Tobacco: Never Passive Smoke Exposure: Never Smokeless Tobacco: Never Tobacco Cessation:Counseling Given: Not Answered [facility] Utilities Answer Date Recorded In the past 12 months has e [employer], gas, oil, or water [employer] threatened to shut off services in your [...] any time in the past [address] [facility], were you homeless or living in a alf (including now)? No 10/20/2024 Sex and Gender Information Value Date Recorded Sex Assigned at Male 10/18/2024 5:34 AM EST Gender Identity Male 10/18/2024 5:34 AM EST Sexual Orientation Heterosexual (straight) 10/18 5:34 AM EST Last Filed Vital Signs Vital Sign Reading Time Taken Comments Blood Pressure 151/70 11/01/2024 1:58 PM EST Pulse 67 11/01/2024 7:31 AM EST Temperature 35.9 ??C (96.7 ??F) 11/01/2024 7:31 AM ES T Respiratory Rate 18 11/01/2024 7:31 AM EST Oxygen Saturation 97% 11/01/2024 8:00 AM EST Inhaled Oxygen Concentration - - Weight 70.5 kg (155 lb 6.8 oz) 11/01/2024 6:20 A M EST Height 170.2 cm (5' 7 ) 10/28/2024 7:15 PM EST Body Mass Index 24.34 10/28/2024 7:15 PM EST Plan of Treatment Health Maintenance Due Date Last Done Comments Foot Exam 1955 Ophthalmology Exam 1955 Physical 1962 DTaP/Tdap/Td Vaccines (1 - Tdap) 1963 Pneumococcal Vaccines 50+ (1 of 2 - PCV) 1963 Zoster (Shingles) Vaccine (1 of 2) 1994 RSV Vaccine 60 years and older and Patients (1 - 1-dose 75+ series) 2019 Influenza Vaccine 05/10/2024 COVID-19 Vaccine ( - season) 2024 07/04/2021, 12/12/2020, 11/21/2020 Hemoglobin A1C 01/17/2025 10/19/2024 Lipid Panel 10/23/2025 10/23/2024 Creatinine with GFR 11/01/2025 11/01/2024, 10/31/2024, 10/30/2024, Additional history exists Hepatitis B Vaccines Aged Out No long er eligible based on patient's age to complete this topic Procedures Procedure Name Priority Date/Time Associated Diagnosis Comments POCT GLUCOSE, FINGERSTICK Routine 11/01/2024 12:04 PM EST POCT GLUCOSE, FINGERSTICK Routine 11/01/2024 8:21 AM EST PHOSPHORUS Routine 11/01/2024 6:20 AM EST MAGNESIUM Routine 11/01/2024 6:20 AM EST COMPLETE BLOOD COUNT, WITHOUT DIFFERENTIAL Routine 11/01/2024 6:20 AM EST BASIC METABOLIC [...] TROPONIN T Routine 10/31/2024 7:16 AM EST TSH, HIGHLY SENSITIVE Routine 10/31/2024 7:16 AM EST HEPARIN ASSAY (ANTI-XA) Routine 10/31/19 7:16 AM EST PHOSPHORUS Routine 10/31/2024 7:16 AM EST MAGNESIUM Routine 10/31/2024 7:16 AM EST COMPLETE BLOOD COUNT, WITHOUT DIFFERENTIAL Routine 10/31/2024 7:16 AM EST BASIC METABOLIC [...] ASSAY (ANTI-XA) Routine 10/30/19 7:09 AM EST PHOSPHORUS Routine 10/30/2024 7:09 AM EST MAGNESIUM Routine 10/30/2024 7:09 AM EST COMPLETE BLOOD COUNT, WITHOUT DIFFERENTIAL Routine 10/30/2024 7:09 AM EST BASIC METABOLIC [...] ASSAY (ANTI-XA) Routine 10/29/19 7:20 AM EST PHOSPHORUS Routine 10/29/2024 7:20 AM EST MAGNESIUM Routine 10/29/2024 7:20 AM EST COMPLETE BLOOD COUNT, WITHOUT DIFFERENTIAL Routine 10/29/2024 7:20 AM EST BASIC METABOLIC [...] ASSAY (ANTI-XA) Routine 10/28/19 7:00 AM EST PHOSPHORUS Routine 10/28/2024 7:00 AM EST MAGNESIUM Routine 10/28/2024 7:00 AM EST COMPLETE BLOOD COUNT, WITHOUT DIFFERENTIAL Routine 10/28/2024 7:00 AM EST BASIC METABOLIC [...] ASSAY (ANTI-XA) Routine 10/27/19 7:29 AM EST PHOSPHORUS Routine 10/27/2024 7:29 AM EST MAGNESIUM Routine 10/27/2024 7:29 AM EST BASIC METABOLIC PANEL Routine 10/27/2024 7:29 AM EST COMPLETE BLOOD COUNT, WITHOUT DIFFERENTIAL Routine 10/27/2024 7:29 AM EST POCT GLUCOSE, [...] ASSAY (ANTI-XA) Routine 10/26/19 6:18 AM EST PHOSPHORUS Routine 10/26/2024 6:18 AM EST MAGNESIUM Routine 10/26/2024 6:18 AM EST BASIC METABOLIC PANEL Routine 10/26/2024 6:18 AM EST COMPLETE BLOOD COUNT, WITHOUT DIFFERENTIAL Routine 10/26/2024 6:18 AM EST POCT GLUCOSE, FINGERSTICK Routine 10/26/2024 3:58 AM EST POCT GLUCOSE, FINGERSTICK Routine 10/25/2024 11:49 PM EST HEPARIN ASSAY (ANTI-XA) Routine 10/25/19 11:35 PM EST POCT GLUCOSE, FINGERSTICK Routine 10/25/2024 8:20 PM EST POCT GLUCOSE, FINGERSTICK Routine 10/25/2024 5:39 PM EST HEPARIN ASSAY (ANTI-XA) Routine 10/25/19 5:03 PM EST HIGH SENSITIVITY TROPONIN T CARD 10/25/2024 5:03 PM EST HIGH SENSITIVITY TROPONIN T [...] GLUCOSE, FINGERSTICK Routine 10/25/2024 9:20 AM EST CREATINE KINASE (CK) Routine 10/25/2024 8:27 AM EST HIGH SENSITIVITY TROPONIN T Routine 10/25/2024 8:27 AM EST PHOSPHORUS Routine 10/25/2024 8:27 AM EST MAGNESIUM Routine 10/25/2024 8:27 AM EST BASIC METABOLIC PANEL Routine 10/25/2024 8:27 AM EST COMPLETE BLOOD COUNT, WITHOUT DIFFERENTIAL Routine 10/25/2024 8:27 AM EST HEPARIN ASSAY [...] B-HYDROXYBUTYRATE Routine 10/24/2024 7:1 1 AM EST PHOSPHORUS Routine 10/24/2024 7:11 AM EST MAGNESIUM Routine 10/24/2024 7:11 AM EST BASIC METABOLIC PANEL Routine 10/24/2024 7:11 AM EST COMPLETE BLOOD COUNT, WITHOUT DIFFERENTIAL Routine 10/24/2024 7:11 AM EST HEPARIN ASSAY (ANTI-XA) Routine 10/24/19 7:11 AM EST PHOSPHORUS Routine 10/24/2024 3:01 AM EST MAGNESIUM Routine 10/24/2024 3:01 AM EST BASIC METABOLIC PANEL Routine 10/24/2024 3:01 AM EST POCT GLUCOSE, FINGERSTICK Routine 10/24/2024 1:53 AM EST HEPARIN ASSAY (ANTI-XA) Routine 10/23/19 10:13 PM EST POCT GLUCOSE, FINGERSTICK Routine 10/23/2024 9:02 PM EST POCT GLUCOSE, FINGERSTICK Routine 10/23/2024 6:22 PM EST MAGNESIUM Routine 10/23/2024 6:02 PM EST PHOSPHORUS Routine 10/23/2024 6:02 PM EST BASIC METABOLIC PANEL Routine 10/23/2024 6:02 PM EST ECG 12-LEAD STAT 10/23/2024 5:43 PM EST HEPARIN ASSAY (ANTI-XA) Routine 10/23/19 3:53 PM EST POCT GLUCOSE, FINGERSTICK Routine 10/23/2024 12:59 PM EST ALBUMIN Routine 10/23/2024 10:31 AM EST CALCIUM, IONIZED Routine 10/23/2024 10:3 1 AM EST CALCIUM, TOTAL Routine 10/23/2024 10:31 AM EST PTH, INTACT Routine 10/23/2024 10:31 AM EST POCT GLUCOSE, FINGERSTICK Routine 10/23/2024 8:36 AM EST LIPID PANEL Routine 10/23/2024 6:05 AM EST PHOSPHORUS Routine 10/23/2024 6:05 AM EST MAGNESIUM Routine 10/23/2024 6:05 AM EST BASIC METABOLIC PANEL Routine 10/23/2024 6:05 AM EST COMPLETE BLOOD COUNT, WITHOUT DIFFERENTIAL Routine 10/23/2024 6:05 AM EST HEPARIN ASSAY (ANTI-XA) Routine 10/23/19 6:05 AM EST POCT GLUCOSE, FINGERSTICK Routine 10/23/2024 1:59 AM EST POCT GLUCOSE, FINGERSTICK Routine 10/22/2024 8:40 PM EST POCT GLUCOSE, FINGERSTICK Routine 10/22/2024 6:12 PM EST POCT GLUCOSE, FINGERSTICK Routine 10/22/2024 1:10 PM EST POCT GLUCOSE, FINGERSTICK Routine 10/22/2024 9:10 AM EST COMPLETE BLOOD COUNT, WITHOUT DIFFERENTIAL Routine 10/22/2024 8:12 AM EST MAGNESIUM Routine 10/22/2024 8:12 AM EST BASIC METABOLIC PANEL Routine 10/22/2024 8:12 AM EST HEPARIN ASSAY (ANTI-XA) Routine 10/22/19 8:12 AM EST POCT GLUCOSE, FINGERSTICK Routine [...] GLUCOSE, FINGERSTICK Routine 10/21/2024 8:03 AM EST BASIC METABOLIC PANEL Routine 10/21/2024 3:09 AM EST COMPLETE BLOOD COUNT, WITHOUT DIFFERENTIAL Routine 10/21/2024 3:09 AM EST HEPARIN ASSAY (ANTI-XA) Routine 10/21/19 3:09 AM EST POCT GLUCOSE, FINGERSTICK Routine [...] GLUCOSE, FINGERSTICK Routine 10/20/2024 2:15 AM EST PHOSPHORUS Routine 10/19/2024 11:59 PM EST MAGNESIUM Routine 10/19/2024 11:59 PM EST COMPLETE BLOOD COUNT, WITH DIFFERENTIAL STAT 10/19/2024 11:59 PM EST BASIC METABOLIC PANEL Routine 10/19/2024 11:59 PM EST HEPARIN ASSAY (ANTI-XA) Routine 10/19/19 11:59 PM EST POCT GLUCOSE, FINGERSTICK Routine [...] GLUCOSE, FINGERSTICK Routine 10/19/2024 11:40 AM EST B-HYDROXYBUTYRATE Routine 10/19/2024 11: 34 AM EST HIGH SENSITIVITY TROPONIN T Routine 10/19/2024 11:34 AM EST BASIC METABOLIC PANEL Routine 10/19/2024 [...] GLUCOSE, FINGERSTICK Routine 10/19/2024 1:35 AM EST HEMOGLOBIN A1C WITH ESTIMATED AVERAGE GLUCOSE Routine 10/19/2024 1:20 AM EST PHOSPHORUS Routine 10/19/2024 1:20 AM EST MAGNESIUM Routine 10/19/2024 1:20 AM EST HIGH SENSITIVITY TROPONIN T CARD 10/19/2024 1:20 AM EST COMPLETE BLOOD COUNT, WITHOUT DIFFERENTIAL Routine 10/19/2024 1:20 AM EST POCT GLUCOSE, FINGERSTICK Routine 10/19/2024 12:16 AM EST ECG 12-LEAD Routine 10/19/2024 12:02 AM EST POCT GLUCOSE, FINGERSTICK Routine 10/18/2024 11:22 PM EST BASIC METABOLIC PANEL Routine 10/18/2024 11:11 PM EST BLOOD GAS, VENOUS STAT 10/18/2024 [...] GLUCOSE, FINGERSTICK Routine 10/18/2024 6:07 PM EST MYCOBACTERIA CULTURE (INCLUDES ACID FAST SMEAR) Routine 10/18/2024 5:55 PM EST FUNGAL CULTURE, OTHER THAN BLOOD Routine 10/18/2024 5:55 PM EST BODY FLUID CULTURE (AEROBIC, ANAEROBIC AND GRAM STAIN) Routine 10/18/2024 5:55 PM EST PROTEIN, BODY FLUID Routine 10/18/2024 5 :50 PM EST PH, BODY FLUID Routine 10/18/2024 5:50 PM EST GLUCOSE, BODY FLUID Routine 10/18/2024 5 :50 PM EST CELL COUNT REFLEX DIFFERENTIAL, BODY FLUID Routine 10/18/2024 5:50 PM EST BODY FLUID CULTURE (AEROBIC, ANAEROBIC AND GRAM STAIN) STAT 10/18/2024 5:40 PM EST PROTEIN, BODY FLUID STAT 10/18/2024 5 :39 PM EST PH, BODY FLUID STAT 10/18/2024 5:39 PM EST LACTATE DEHYDROGENASE (LDH), BODY FLUID STAT 10/18/2024 5:39 PM EST GLUCOSE, BODY FLUID STAT 10/18/2024 5 :39 PM EST CELL COUNT REFLEX DIFFERENTIAL, BODY FLUID STAT 10/18/2024 5:39 PM EST POCT GLUCOSE, FINGERSTICK Routine 10/18/2024 5:04 PM EST B-HYDROXYBUTYRATE Routine 10/18/2024 5:0 4 PM EST BLOOD GAS, VENOUS STAT 10/18/2024 5:0 4 PM EST HEPARIN ASSAY (ANTI-XA) STAT 10/18/19 25 5:04 PM EST BASIC METABOLIC PANEL STAT 10/18/2024 [...] GLUCOSE, FINGERSTICK Routine 10/18/2024 7:31 AM EST BASIC METABOLIC PANEL Routine 10/18/2024 7:25 AM EST HIGH SENSITIVITY TROPONIN T CARD 10/18/2024 7:25 AM EST POCT GLUCOSE, FINGERSTICK Routine 10/18/2024 6:28 AM EST XR CHEST 1 VIEW-PORTABLE STAT 10/18/2024 5:37 AM EST ECG 12-LEAD STAT 10/18/2024 5:28 AM EST POCT GLUCOSE, FINGERSTICK Routine 10/18/2024 5:24 AM EST HEPARIN ASSAY (ANTI-XA) STAT 10/18/19 5:16 AM EST PARTIAL THROMBOPLASTIN TIME (PTT) STAT 10/18/2024 5:16 AM EST PROTIME-INR STAT 10/18/2024 5:16 AM EST PROBNP, N-TERMINAL STAT 10/18/2024 5: 16 AM EST B-HYDROXYBUTYRATE STAT 10/18/2024 5:1 6 AM EST OSMOLALITY STAT 10/18/2024 5:16 AM EST BLOOD GAS, VENOUS STAT 10/18/2024 5:1 6 AM EST COMPLETE BLOOD COUNT, WITH DIFFERENTIAL STAT 10/18/2024 5:16 AM EST HIGH SENSITIVITY TROPONIN T CARD 10/18/2024 5:16 AM EST MAGNESIUM STAT 10/18/2024 5:16 AM EST BASIC METABOLIC PANEL STAT 10/18/2024 5:16 AM EST from Last 3 Months Results * (ABNORMAL) POCT Glucose, Fingerstick (11/01/2024 12:04 PM EST) Only the most recent of109 resultswithin the time period is included. Pathologist [facility] POC Glucose 189(H) 65 - 99 mg/dL 11/01/2024 12:05 PM EST Blood specimen / Unknown 11/01/2024 12:04 PM EST 11/01/2024 12:05 PM EST Fuad Winter MD POINT OF CARE TEST ORDERABLES HOSPITAL LAB See Below * (ABNORMAL) COMPLETE BLOOD COUNT, WITHOUT DIFFERENTIAL (11/01/2024 6:20 AM EST) Only the most recent of13 resultswithin the time period is included. White Blood Cell Count 9.1 4.0 - 11.0 Thou/uL 11/01/2024 7:10 AM [facility] Platelet Count 261 150 - 450 Thou/uL 11/01/2024 7:10 AM [facility] Hemoglobin 9.2(L) 13.0 - 17.7 g/dL 11/01/2024 7:10 AM [facility] Hematocrit 29.7(L) 39.0 - 54.0 % 11/01/2024 7:10 AM [facility] Red Blood Cell Count 3.00(L) 4.50 - 6.20 Mil/uL 11/01/2024 7:10 AM [facility] MCV 99 80 - 100 fL 11/01/2024 7:10 AM [facility] MCH 30.7 27.0 - 31.0 pg 11/01/2024 7:10 AM [facility] MCHC 31.0 30.0 - 36.0 g/dL 11/01/2024 7:10 AM [facility] RDW 16.2(H) 11.5 - 14.5 % 11/01/2024 7:10 AM [facility] MPV 11.4 7.5 - 12.5 fL 11/01/2024 7:10 AM [facility] Blood Blood specimen / Unknown 11/01/2024 6:20 AM EST 11/01/2024 6:57 AM EST Jonna Donis PA-C [place] [address], [place] [address] * (ABNORMAL) Phosphorus (Early AM) (11/01/2024 6:20 AM EST) Only the most recent of15 resultswithin the time period is included. Phosphorus 4.7(H) 2.7 - 4.5 mg/dL 11/01/2024 7:58 AM [facility] Blood (Plasma/Serum) 11/01/2024 6:20 AM EST 11/01/2024 6:57 AM EST Jonna L Valley PA-C LAB BLOOD ORDERABL ES Performing Organization Address [facility] [place] [address], [place] [address] * MAGNESIUM (11/01/2024 6:20 AM EST) Only the most recent of17 resultswithin the time period is included. Magnesium 1.6 1.6 - 2.7 mg/dL 11/01/2024 7:58 AM [facility] Blood (Plasma/Serum) 11/01/2024 6:20 AM EST 11/01/2024 6:57 AM EST Jonna Giraldo TierPM PA-C LAB BLOOD ORDERABL ES Performing Organization Address [facility] [place] [address], [place] [address] * (ABNORMAL) BASIC METABOLIC PANEL (11/01/2024 6:20 AM EST) Only the most recent of29 resultswithin the time period is included. Glucose 92 65 - 99 mg/dL 11/01/2024 7:58 AM [facility] Comment:Fasting: <100 mg/dL, Non-Fasting: <200 mg/dL (ADA 2005) Blood Urea Nitrogen (BUN) 41(H) 8 - 21 mg/dL 11/01/2024 7:58 AM [facility] Creatinine 4.5(H) 0.5 - 1.3 mg/dL 11/01/2024 7:58 AM [facility] eGFR 13(L) >59 11/01/2024 7:58 AM [facility] Comment:CKD-EPI (2020) in mL /min/1.73 sq meters. Sodium 140 136 - 145 mmol/L 11/01/2024 7:58 AM [facility] Potassium 4.8 3.4 - 5.3 mmol/L 11/01/2024 7:58 AM [facility] Chloride 104 98 - 107 mmol/L 11/01/2024 7:58 AM [facility] CO2 22 22 - 33 mmol/L 11/01/2024 7:58 AM EST [facility] Anion Gap 14 7 - 17 11/01/2024 7:58 AM [facility] Calcium 9.3 8.7 - 10.5 mg/dL 11/01/2024 7:58 AM EST [facility] BUN/Creatinine Ratio 9(L) 10.0 - 25.0 Ratio 11/01/2024 7:58 AM EST [facility] Blood (Plasma/Serum) 11/01/2024 6:20 AM EST 11/01/2024 6:57 AM EST Jonna Donis PA-C [place] [address], [place] [address] * CC CORONARY ANGIO W/LV (10/31/2024 6:34 PM EST) Anatomical Region Laterality Modality Radiographic Keily ging Narrative 10/31/2024 6:57 PM EST Table formatting from the original result was not included. Images from the original result were not included. [facility] [place] [facility] - Cardiac Catheterization Laboratory PATIENT DEMOGRAPHIC INFORMATION Name: Jorge Wilder : 1945 79 y.o. 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 Calixto Ureña MD [facility] [place] 10/31/2024 ??6:57 PM Coronary Findings Diagnostic Dominance: [...] MD CV CARDIAC CATH ARIEL BRADY * Heparin Assay (Anti Xa) (10/31/2024 3:28 PM EST) Only the most recent of28 resultswithin the time period is included. Anti Xa 0.36 IU/mL 10/31/2024 4:07 PM EST [facility] Comment: (NOTE) Heparin Thromboembolic/Standard/Full Dose Protocol: [...] MD LAB BLOOD ORDERABLES Performing Organization Address [facility] [place] [address], [place] [address] * (ABNORMAL) High Sensitivity Troponin T (10/31/2024 7:16 AM EST) Only the most recent of12 resultswithin the time period is included. High Sensitivity Troponin T 396(HH) <23 ng/L 10/31/2024 9:15 AM EST [facility] Delta (Change) NO PREVIOUS RESULT <3 10/31/2024 9:15 AM EST [facility] Plasma/Serum 10/31/2024 7:16 AM EST 10/31/2024 7:47 AM EST Madhav Ryan MD LAB BLOOD ORDERABLES Performing Organization Address [facility] [place] [address], [place] [address] * TSH, HIGHLY SENSITIVE (10/31/2024 7:16 AM EST) TSH, Highly Sensitive 2.06 0.27 - 4.20 mIU/L 10/31/2024 9:15 AM EST [facility] Plasma/Serum 10/31/2024 7:16 AM EST 10/31/2024 7:47 AM EST Madhav Ryan MD LAB BLOOD ORDERABLES Performing Organization Address [facility] Co de Phone Number [place] [phone], [place] [address] * (ABNORMAL) proBNP, N-terminal (10/29/2024 7:20 AM EST) Only the most recent of2 resultswithin the time period is included. proBNP, N-terminal 47,866(H) <450 pg/mL 10/29/2024 12:12 PM EST [facility] Plasma specimen / Unknown 10/29/2024 7:20 AM EST 10/29/2024 8:04 AM EST Madhav Ryan MD [place] [address], [place] [address] * ECG 12 lead (STAT) (10/27/2024 7:41 AM EST) Only the most recent of6 resultswithin the time period is included. Ventricular rate 60 BPM EKG [facility] Atrial rate 60 BPM EKG [facility] P-R interval 150 ms EKG [facility] QRS duration 84 ms EKG [facility] Q-T interval 488 ms EKG [facility] QTC calculation (Bazett) 488 ms EKG [facility] P axis [address] [facility] R axis 13 degrees EKG [facility] T axis 199 degrees EKG [facility] 10/27/2024 7:41 AM EST Narrative EKG [facility] - 10/27/2024 6:03 PM EST Normal sinus rhythm Septal infarct , age undetermined ST & T wave abnormality, consider anterolateral ischemia T wave abnormality, consider inferior ischemia Abnormal ECG When compared with ECG of 25-Oct-2024 10:44, Questionable change in QRS axis T wave inversion more evident in Anterior leads Confirmed by MD Ashish, Tanya ([id number]) on 10/27/2024 6:03:18 PM Procedure Note Nneka Hinojosa MD - 10/27/2024 Normal sinus rhythm Septal infarct , age undetermined ST & T wave abnormality, consider anterolateral ischemia T wave abnormality, consider inferior ischemia Abnormal ECG When compared with ECG of 25-Oct-2024 10:44, Questionable change in QRS axis T wave inversion more evident in Anterior leads Confirmed by MD Ashish, [facility] ([id number]) on 10/27/2024 6:03:18 PM Madhav Ryan MD ECG ORDERABLES EKG [facility] * XR Chest 1 view-Portable (STAT) (10/25/2024 11:48 AM EST) Only the most recent of5 resultswithin the time period is included. Anatomical Region Laterality Modality Chest Computed Radiogr [...] change in bilateral opacities and pleural effusions. Jorge Mcfarland MD IMG DIAGNOSTIC IM AGING ORDERABLES * CREATINE KINASE (CK) (10/25/2024 8:27 AM EST) Creatine Kinase (CK) 76 24 - 204 U/L 10/25/2024 10:25 AM [facility] Plasma/Serum 10/25/2024 8:27 AM EST 10/25/2024 9:16 AM EST Jorge Mcfarland MD LAB BLOOD ORDERAB LES Performing Organization Address [facility] [place] [address], [address] [address] * (ABNORMAL) B-Hydroxybutyrate (10/24/2024 7:11 AM EST) Only the most recent of4 resultswithin the time period is included. B-Hydroxybutyrate 2.36(H) <0.28 mmol/L 10/24/2024 10:30 AM [facility] Comment: In the presence of uncontrolled diabetes, serum beta-hydroxybutyrate levels greater than or equal to 3.80 mmol/L (patients age 16 and over) or greater than or equal to 3.00 mmol/L (patients under age 16) support a clinical diagnosis of Diabetic Ketoacidosis (DKA) - Ref: Diabetes Care 31: 643 (2007). Plasma/Serum 10/24/2024 7:11 AM EST 10/24/2024 7:48 AM EST Adliia Woo MD LAB BLOOD ORDERABLES Performing Organization Address [facility] [place] [address], [address] [address] * (ABNORMAL) PTH, Intact (10/23/2024 10:31 AM EST) PTH, Intact 579(H) 15 - 65 pg/mL 10/23/2024 12:23 PM [facility] Blood (Plasma/Serum) 10/23/2024 10:31 AM EST 10/23/2024 11:36 AM EST Jorge Mcfarland MD LAB BLOOD ORDERAB LES Performing Organization Address [facility] [place] [address], [place] [address] * (ABNORMAL) Calcium, Ionized (10/23/2024 10:31 AM EST) Calcium, Ionized 0.88(L) 1.17 - 1.33 mmol/L 10/23/2024 12:16 PM EST [facility] Blood Blood specimen / Unknown 10/23/2024 10:31 AM EST 10/23/2024 11:36 AM EST Jorge Mcfarland MD LAB BLOOD ORDERAB LES Performing Organization Address [facility] [place] [address], [place] [address] * (ABNORMAL) Calcium, Total (10/23/2024 10:31 AM EST) Calcium 7.4(L) 8.7 - 10.5 mg/dL 10/23/2024 12:13 PM EST [facility] Blood (Plasma/Serum) 10/23/2024 10:31 AM EST 10/23/2024 11:36 AM EST Jorge Mcfarland MD LAB BLOOD ORDERAB LES Performing Organization Address City/[facility] [place] [address], [place] [address] * Albumin (10/23/2024 10:31 AM EST) Albumin 3.5 3.4 - 4.8 g/dL 10/23/2024 12:13 PM EST [facility] Blood (Plasma/Serum) 10/23/2024 10:31 AM EST 10/23/2024 11:36 AM EST Jorge Mcfarland MD LAB BLOOD ORDERAB LES Performing Organization Address City/[facility]/ZIP Co de Phone Number [facility] [address] [place] [address], [facility] [address] [place] [address] * (ABNORMAL) LIPID PANEL (10/23/2024 6:05 AM EST) Cholesterol, Total 110 <200 mg/dL 2024 8:30 AM [facility] Triglycerides 141 <150 mg/dL 10/23/2024 8:30 AM [facility] Cholesterol, HDL 30(L) >39 mg/dL 10/23/19 8:30 AM [facility] Estimated LDL 52 <130 mg/dL 10/23/2024 8:30 AM [facility] Comment: NCEP Guidelines: ?< 100 mg/dL ??Optimal 100 - 129 mg/dL ??Near Optimal/Above Optimal 130 - 159 mg/dL ??Borderline High 160 - 189 mg/dL ??High ??>/= 190 mg/dL ??Very High Cholesterol/HDL Ratio 3.7 0.0 - 5.0 Ratio 10/23/2024 8:30 AM [facility] Comment: Relative Risk ? Ratio - Male ? Ratio - Female ?0.5 ?3.4 ?3.3 ?1.0 ?5.0 ?4.4 ?2.0 ?9.6 ?7.1 ?3.0 ? 23.4 ? 11.0 Plasma/Serum 10/23/2024 6:05 AM EST 10/23/2024 7:46 AM EST Adilia Woo MD [place] [address], [place] [address] * (ABNORMAL) Blood Gas, Venous (10/20/2024 10:39 AM EST) Only the most recent of7 resultswithin the time period is included. Venous Blood PH 7.29(L) 7.33 - 7.43 10/20/2024 10:54 AM EST [facility] Venous pCO2 39 35 - 50 mmHG 10/20/2024 10:54 AM [facility] Venous pO2 49 0 - 60 mmHG 10/20/2024 10:54 AM [facility] Venous Total CO2 20(L) 23 - 29 mmol/L 10/20/2024 10:54 AM [facility] Respiratory Info NASAL 4 L/MIN 10/20/2024 10:39 AM EST Base Deficiency 7.2 mmol/L 10:54 AM [facility] Comment:Reference Range: Neg ative 2 to Positive 3 Blood Blood specimen / Unknown 10/20/2024 10:39 AM EST 10/20/2024 10:47 AM EST Kristopher Hickey MD LAB BLOOD ORDERAB LES Performing Organization Address [facility] [place] [address], [place] [address] * Lactic Acid, Plasma (STAT) (10/20/2024 10:00 AM EST) Only the most recent of2 resultswithin the time period is included. Lactic Acid 0.8 0.5 - 1.9 mmol/L 10/20/2024 10:37 AM EST [facility] Blood Plasma specimen / Unknown 10/20/2024 10:00 AM EST 10/20/2024 10:07 AM EST Kristopher Hickey MD LAB BLOOD ORDERAB LES Performing Organization Address City/[facility] [place] [address], [facility] [address] [place] [address] * (ABNORMAL) Complete Blood Count, with Differential (10/19/2024 11:59 PM EST) Only the most recent of2 resultswithin the time period is included. White Blood Cell Count 11.5(H) 4.0 - 11.0 Thou/uL 10/20/2024 12:32 AM [facility] Platelet Count 271 150 - 450 Thou/uL 10/20/2024 12:32 AM [facility] Hemoglobin 8.9(L) 13.0 - 17.7 g/dL 10/20/2024 12:32 [facility] Hematocrit 28.6(L) 39.0 - 54.0 % 10/20/2024 12:32 AM [facility] Red Blood Cell Count 2.93(L) 4.50 - 6.20 Mil/uL 10/20/2024 12:32 [facility] MCV 98 80 - 100 fL 10/20/2024 12:32 AM [facility] MCH 30.4 27.0 - 31.0 pg 10/20/2024 12:32 AM [facility] MCHC 31.1 30.0 - 36.0 g/dL 10/20/2024 12:32 AM [facility] RDW 16.5(H) 11.5 - 14.5 % 10/20/2024 12:32 [facility] MPV 11.3 7.5 - 12.5 fL 10/20/2024 12:32 AM [facility] Neutrophils Auto 80.7 % 10/20/19 25 12:32 AM [facility] Immature Granulocytes 0.6 % 10/20/2024 12:32 [facility] Lymphocytes Auto 11.6 % 10/20/19 12:32 [facility] Monocytes Auto 6.7 % 10/20/2024 12:32 [facility] Eosinophils Auto 0.2 % 10/20/19 12:32 [facility] Basophils Auto 0.2 % 10/20/2024 12:32 [facility] Abs Neutrophils Auto 9.25(H) 2.00 - 7.50 Thou/uL 10/20/2024 12:32 AM [facility] Abs Immature Granulocytes 0.07 0.00 - 0.10 Thou/uL 10/20/2024 12:32 AM [facility] Abs Lymphocytes Auto 1.33(L) 1.50 - 4.50 Thou/uL 10/20/2024 12:32 AM [facility] Abs Monocytes Auto 0.77 0.20 - 1.50 Thou/uL 10/20/2024 12:32 AM [facility] Abs Eosinophils Auto 0.02 0.00 - 0.70 Thou/uL 10/20/2024 12:32 AM [facility] Abs Basophils Auto 0.02 0.00 - 0.20 Thou/uL 10/20/2024 12:32 AM [facility] Blood Blood specimen / Unknown 10/19/2024 11:59 PM EST 10/20/2024 12:25 AM EST Fuad Winter MD LAB BLOOD ORD ERABLES Performing Organization Address City/[facility]/[place] [address], [place] [address] * (ABNORMAL) Hemoglobin and Hematocrit (10/19/2024 2:25 PM EST) [facility] Hematocrit 32.3(L) 39.0 - 54.0 % 10/19/2024 3:39 PM [facility] Hemoglobin 9.9(L) 13.0 - 17.7 g/dL 10/19/2024 3:39 PM [facility] Blood Blood specimen / Unknown 10/19/2024 2:25 PM EST 10/19/2024 3:31 PM EST Kristopher Hickey MD [place] [address], [place] [address] * (ABNORMAL) Hemoglobin A1C with Estimated Average Glucose (10/19/2024 1:20 AM EST) [facility] Hemoglobin A1C 8.7(H) <5.7 % 10/19/2024 12:02 PM EST [facility] Comment: A1c% ? Interpretation 5.7 - 6.0 ?Increase risk of diabetes 6.1 - 6.4 ?Higher risk of diabetes > or = 6.5 ?? Consistent with diabetes Diabetes Care, 33(Supp 1):S1-S61, 2009 Estimated Average Glucose 203 mg/dL 10/19/2024 12:02 PM EST [facility] Blood specimen / Unknown 10/19/2024 1:20 AM EST 10/19/2024 2:17 AM EST Pushpa Gallegos MD LAB BLOOD ORDERABLES Performing Organization Address City/State/[facility] [place] [address], [place] [address] * US Guided Bedside Thoracentesis-Bilateral (10/18/2024 6:10 [...] Sample left with bedside RN. ACCESS: 6 [place] Maty-G-Kjvgjnmo closed needle/catheter system ?? REQUESTING PRACTITIONER: Cheryl [...] record. A timeout procedure was performed. HISTORY: Jorge Wilder is a 79 y.o. old male [...] adjacent organs or vascular structures. A 6 [place] Wrgh-E-Htkazsex closed needle/catheter system was utilized for access. [...] adjacent organs or vascular structures. A 6 [place] Agki-I-Enhcwhuo closed needle/catheter system was utilized for access. 550 mL of clear devorah fluid was aspirated before drainage ceased. The catheter was removed and a sterile dressing applied. The patient tolerated the procedure well without evidence of complications. ?? Pushpa Gallegos MD [facility] ORDERABLES * Body Fluid Culture (aerobic, anaerobic and Gram stain) (10/18/2024 5:55 PM EST) Only the most recent of2 resultswithin the time period is included. Gram stain suggestive of Few neutrophils Mononuclear cells No organisms seen 10/18/2024 9:52 PM [facility] Culture No aerobes and anaerobes isolated after 7 days 10/25/2024 3:19 PM EST [facility] 10/18/2024 5:55 PM EST 10/18/2024 7:53 PM EST Fuad Winter MD MICROBIOLOGY - GENERAL ORDERABLES [facility] [address] [place] [address], [facility] [address] [place] [address] * Fungal Culture, Other Than Blood (10/18/2024 5:55 PM EST) Culture No fungus isolated 11/02/2024 8:34 AM EST [facility] 10/18/2024 5:55 PM EST 10/18/2024 7:54 PM EST Fuad Winter MD MICROBIOLOGY - GENERAL ORDERABLES Performing Organization Address City/[facility]/ZIP Co de Phone Number [facility] [address] [place] [address], * Cell Count, Reflex Differential, Body Fluid (10/18/2024 5:50 PM EST) Only the most recent of2 resultswithin the time period is included. Appearance, Body Fluid Cloudy 10/18/2024 8:25 PM EST [facility] Color [place] 10/18/2024 8:25 PM [facility] Nucleated Cells, Fluid 435 /CUMM 10/18/2024 8:24 PM [facility] RBC, Fluid 11,000 /CUMM 10/18/2024 8:24 PM [facility] Neutrophil, Body Fluid 3 % 10/18/2024 8:25 PM [facility] Lymphoctye, Body Fluid 27 % 10/18/2024 8:25 PM [facility] Monocyte, Body Fluid 21 % 10/18/2024 8:25 PM [facility] Histiocyte, Body Fluid 46 % 10/18/2024 8:25 PM [facility] Mesothelial, Body Fluid 3 % 10/18/2024 8:25 PM [facility] Smear Comment, Body Fluid The reference interval and other method performance specifications are unavailable for this body fluid. Comparison of the result with concentration in the blood, serum, or plasma is recommended 10/18/2024 8:25 PM EST [facility] 10/18/2024 5:50 PM EST 10/18/2024 6:49 PM EST Fuad Winter MD BODY FLUIDS A ND STOOLS ORDERABLES Performing Organization Address [facility] de Phone Number [address] [address], [place] [address] * Protein, Body Fluid (10/18/2024 5:50 PM EST) Only the most recent of2 resultswithin the time period is included. Source RIGHT PLEURAL EFFUSION 10/18/2024 6:49 PM EST [facility] Protein, Body Fluid 2.2 g/dL 10/18/2024 7:15 PM [facility] Comment:The reference interv al(s) and other method performance specifications are unavailable for this body fluid. Comparison of this result with the concentration in the blood, serum, or plasma is recommended. 10/18/2024 5:50 PM EST 10/18/2024 6:49 PM EST Fuad Winter MD BODY FLUIDS A ND STOOLS ORDERABLES Performing Organization Address [facility] Co de Phone Number [address] [address], [place] [address] * Glucose, Body Fluid (10/18/2024 5:50 PM EST) Only the most recent of2 resultswithin the time period is included. Source RIGHT PLEURAL EFFUSION 10/18/2024 6:49 PM EST [facility] Glucose, Body Fluid 151 mg/dL 10/18/2024 7:15 PM EST [facility] Comment:The reference interv al(s) and other method performance specifications are unavailable for this body fluid. Comparison of this result with the concentration in the blood, serum, or plasma is recommended. 10/18/2024 5:50 PM EST 10/18/2024 6:49 PM EST Fuad Winter MD BODY FLUIDS A ND STOOLS ORDERABLES Performing Organization Address [facility] [place] [address], [place] [address] * PH, BODY FLUID (10/18/2024 5:50 PM EST) Only the most recent of2 resultswithin the time period is included. Source RIGHT PLEURAL EFFUSION 10/18/2024 6:49 PM EST [facility] pH, Body Fluid 7.34 10/18/2024 7:14 PM EST [facility] 10/18/2024 5:50 PM EST 10/18/2024 6:49 PM EST Fuad Winter MD BODY FLUIDS A ND STOOLS ORDERABLES Performing Organization Address [facility] [place] [address], [place] [address] * LDH - Pleural Fluid (10/18/2024 5:39 PM EST) Source PLEURAL 10/18/2024 5:40 PM EST Lactate Dehydrogenase, Body Fluid 143 U/L 10/18/2024 7:27 PM EST [facility] Comment:The reference interv al(s) and other method performance specifications are unavailable for this body fluid. Comparison of this result with the concentration in the blood, serum, or plasma is recommended. Body Fluid Specimen from pleura obtained by thoracentesis / Unknown 10/18/2024 5:39 PM EST 10/18/2024 6:57 PM EST Pushpa Gallegos MD BODY FLUIDS AND STOO LS ORDERABLES Performing Organization Address [facility] [place] [address], [place] [address] * ECHOCARDIOGRAM COMPREHENSIVE WITH CONTRAST (10/18/2024 12:14 PM EST) IVS Mean (F:0.6-0.9, M:0.6-1.0) 1.0 cm IVS [...] LVOT mn grad 1.5 mmHg LVOT peak jl mean 0.7 m/s LVOT peak jl 0.7 m/s LVOT VTI MEAN 14.9 cm [...] E' Septal Velocity 5.76 cm/s Mr max jl mean 4.6 m/s Mr max jl 4.6 m/s Mitral Regurgitant Velocity Time Integral Mean 126.5 cm Mitral Regurgitant Velocity Time Integral 126.5 cm Tapse Mean 1.7 cm Tapse 1.7 cm TR Peak Jl Mean 3.3 m/s TR Peak Jl 3.3 m/s Ascending aorta mean 3.0 cm [...] system. ?Dr. Pushpa Gallegos was notified by [place] text at 12:36 PM. Technical Details Definity [...] MD CV ECHO ORDERABLE S * (ABNORMAL) Partial Thromboplastin Time (PTT) (10/18/2024 5:16 AM EST) Anticoagulant IV HEPARIN, UNFRACTIONATED 10/18/2024 5:18 AM EST Partial Thromboplastin Time (PTT) 68(H) 25 - 36 seconds 10/18/2024 5:58 AM EST [facility] Blood Plasma specimen / Unknown 10/18/2024 5:16 AM EST 10/18/2024 5:42 AM EST Fuad Winter MD LAB BLOOD ORD ERABLES Performing Organization Address [facility] [place] [address], [place] [address] * (ABNORMAL) Protime-INR (10/18/2024 5:16 AM EST) Anticoagulant IV HEPARIN, UNFRACTIONATED 10/18/2024 5:18 AM EST Prothrombin Time (PT) 13.9(H) 10.0 - 13.5 seconds 10/18/2024 5:58 AM EST [facility] INR 1.2 10/18/2024 5:58 AM EST [facility] Comment:INR Therapeutic Rang es: Standard dose anticoagulant 2.0 to 3.0, High dose anticoagulant 2.5-3.5. Blood Plasma specimen / Unknown 10/18/2024 5:16 AM EST 10/18/2024 5:42 AM EST Fuad Winter MD LAB BLOOD ORD ERABLES Performing Organization Address [facility] [place] [address], [place] [address] * (ABNORMAL) Osmolality (10/18/2024 5:16 AM EST) Osmolality, Serum/Plasma 359(H) 285 - 295 mOsm/Kg 10/18/2024 6:43 AM EST [facility] Blood (Plasma/Serum) 10/18/2024 5:16 AM EST 10/18/2024 5:42 AM EST Fuad Winter MD LAB BLOOD ORD ERABLES Performing Organization Address City/[facility]/[place] [address], [address] [place] [address] from Last 3 Months Advance Directives * Full Code (Latest Code Status on File) Date Activated Date Inactivated Comments 10/18/2024 7:04 AM Care Teams Soft [employer]oe [employer]cer Relationship Specialty Start Date End Date Diaz Akers MD PCP - General Internal Medicine 10/20/24
--- OUTSIDE RECORDS SUMMARY | 2024-11-08 16:35 | XMS_ITS | Encounter Summary ---
Author Organization [facility] Address [address] [place] [address] Care Team Providers Care Production Engineer Track Name Role Phone Diaz Akers MD Primary Care Provider Soledad vailable Reason for Visit * Reason Comments Abnormal Test Result * Auth/Cert Specialty Diagnoses / Procedures Referred By Danielle t Referred To Contact Diagnoses DKA (diabetic ketoacidosis) ([facility]) NSTEMI, DKA, Pneumonia Procedures OTHER ADMINISTRATIVE ADJUSTMENT (INSURANCE) Referral ID Status Reason Start Date Expiration Date Visits Re quested Visits Authorized [id number] 1 1 Encounter Details Date Type Department Care Team (Late st Contact Info) Description 10/18/2024 5:10 AM EST - 11/01/2024 4:42 PM [facility] Hospital Encounter [address] [phone] Fuad Winter MD [address] [place] [address] Branden Boyd MD [address] [id number] Pushpa Gallegos MD [address] [address] Kristopher Hickey MD [address] [place] [address] Irma Tilley MD [address] [phone] Jessica Strange MD [address] [place] [id number] Adilia Woo MD [address] [place] [phone] Magdaleno Crowder MD [address] [place] [phone] Neymar Mcfarland MD [address] [place] [id number] Madhav Ryan MD [address] [place] [phone] Thomas Medrano MD [address] [place] [id number] Osmar Valdez MD [address] [place] [phone] NSTEMI (non-ST elevated myocardial infarction) (HCC) (Primary Dx); Diabetic ketoacidosis without coma associated with type 2 diabetes mellitus (HCC) Discharge Disposition: Home with Health Care Services Social History Tobacco Use Types Packs/Day Years Used Date Smoking Tobacco: Never Passive Smoke Exposure: Never Smokeless Tobacco: Never Tobacco Cessation:Counseling Given: Not Answered [facility] Utilities Answer Date Recorded In the past 12 months has [employer], gas, oil, or water [employer] threatened to shut off services in your [...] in the past [address] [facility], were you homeless or living in a fdc (including now)? No 10/20/2024 Sex and Gender [...] been on hemodialysis follows with nephrology in [place]), insulin-dependent diabetes, hypertension presented from outside hospital and transferred to [facility] for concerns of NSTEMI and DKA. Patient [...] 1830. On 10/18/2024, he was transferred to [facility] intensive care unit. He received treatment to DKA, acidosis and hyperglycemia improved on intravenous fluid and insulin therapy. Upon admission to [facility] NT-proBNP was found to have 70K and [...] titration of his medications through his primary flame burner.. Endocrine service provided recommendations for insulin and he was switched from Januvia to Tradjenta at the time of discharge. Consults: Consults placed: Procedures Inpatient consult to cardiology ([facility] Cardiology) Inpatient consult to cardiology ([facility] Cardiology) Inpatient consult to Endocrinology Inpatient consult to Nutrition Services Procedures: Surgical/Procedural Cases on this Admission Case IDs Date Procedure Surgeon Location Status [id number] 10/31/24 CORONARY ANGIO W/LV Calixto Ureña MD NIPPING MACHINE OPERATOR Comp Diagnostic Studies: XR Chest [...] effusions unchanged. Interpreted by: Mitchell Ascencio DO Silver Service Waiter I personally reviewed the images and the [...] Sample left with bedside RN. ACCESS: 6 American Xpqz-H-Evalzkul closed needle/catheter system REQUESTING PRACTITIONER: Cheryl Blue [...] deeper tissues. A standard small bore needle wasintroduced to sample fluid and demonstrated a safe access route. There was no evidence of traversing adjacent organs or vascular structures. A 6 American Rjtm-G-Dzkazkbn closed needle/catheter system was utilized for access. 850 mL of clear devorah fluid was aspirated before drainage ceased. The catheter was removed and a sterile dressing applied. Ultrasound images of the left thorax were obtained tolocalize a moderate pleural effusion. Images were permanently saved to the record. An area of the patient's back was prepped and draped in the standard sterile fashion. 10 mL of 1% lidocaine was usedto obtain local anesthesia of the skin and deeper tissues. A standard small bore needle was introduced to sample fluid and demonstrated a safe access route. There was no evidence of traversing adjacent organs or vascular structures. A 6 American Kovo-V-Mywjvxfc closed needle/catheter system was utilized for access. [...] tal rison in our system. Dr. Pushpa Gallgeos was notified by [place] text at 12:36 PM. XR Chest 1 [...] atelectasis, respectively. Interpreted by: Prem Coffman MD Silver Service Waiter I personally reviewed the images and the [...] system. Dr. Pushpa Gallegos was notified by [facility] at 12:36 PM. Results from last 7 [...] through Care Everywhere. * Angiogram Care After (Malaysian) documented in this encounter Medications at Time [...] 11/01/2024 9:27 AM EST Endocrinology Progress Note BRIM POUNCER MACHINE OPERATOR Endocrinology - Medicine Today's Date: 11/01/2024 Admit [...] are interchangable*)- order B-D Debby 4 mm [place] (15 mL). Humalog KwikPen (U100) (the following are interchangable) - order B-D Debby 4 mm [place] (15 mL). * Lantus Solostar, Basaglar KwikPen, [...] 47 Diet: Diet Cardiac; Carb Counting 60g/meal 7887-6566 kcal; 2 gm NA (Low Sodium); Low [...] Intake/Output Summary (Last 24 hours) at 11/01/2024 0916 Last data filed at 11/01/2024 0916 Gross per 24 hour Intake 871.95 ml Output 2505 ml Net -1633.05 ml Scheduled Meds: aspirin, 81 mg, Oral, Daily atorvastatin, 80 mg, Oral, Daily calcitRIOL, 0.5 mcg, Oral, Daily calcium carbonate, 500 mg, Oral, Daily chlorhexidine, 15 mL, Mouth/Throat, BID darbepoetin kelley (ARANESP) injection, 60 mcg, Subcutaneous, Weekly heparin [...] intake - dietary recall from the pt and/watch assembly inspector, and NPO status. Time spent communicating with other health sub acute care nurse including the RN Signed Day Casarez Endocrinology [...] level of independence with functional mobility. Current [facility] Basic Mobility Score: 23 Rehab Plan of [...] Progressive Mobility Progressive Mobility Level Achieved Ambulation [facility] Basic Mobility Turning from your back to [...] Climbing 3-5 steps with a railing? 3 [facility] Basic Mobility Score 23 Therapy Assessment/Plan (PT) [...] d/t HTN + DM (neph Dr in [place]), admit as xfer fromOSH with dyspnea (COVID+) [...] Calcitriol daily. Needs to continue follow-up with papier mache molder on d/c. Sign: Garth Perez DO 11/01/2024 12:58 PM * Ysabel Jones PA-C - 11/01/2024 7:25 AM EST Images from the original note were not included. 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 He was initially admitted to the MICU on insulin drip. Troponin found to be elevated 8416-8150, EKG noted to be sinus with poor R wave progression and nonspecific ST changes. He was initiated on a heparin drip for NSTEMI. Course further complicated by acute HFrEF LVEF 28%, COVID, and ALISA on CKD. [facility] with moderate proximal and mid LAD calcified focal stenosis, severe stenosis of nondominant RCA, recommended for medical management. Plan [facility] 10/31: moderate proximal and mid LAD calcified [...] agreement with plan of care as above. [facility] Cardiology will continue to follow. Subjective Denies [...] 10/31/2024 8:26 PM EST Pt transported to [facility] [place] on monitor. 0 KENDALL Richardson and this [...] 4:29 PM EST Certified Diabetes Care & Residence Supervisor Note: Patient meets criteria for evaluation due [...] he is still here on Tuesday this [facility] can give him a reader with a [...] from diet unless treating low BG. Given [facility] Diabetes Tool Kit, Thriving with diabetes. Sections of importance in the booklet highlighted and reviewed with pt. 3. Survival Skills Needed & Taught: Insulin Pen Reinforcement: Pt. was able to verbally explain to this [facility] how he would place and prime needle, [...] Transition of Care): Follow up appointment with iDaz Akers MD (PCP) in 1-2 weeks. Rx [...] [phone] Signed: Abbey RODNEY, RN, [facility] 10/31/24 8PM * Garth Perez DO - 10/31/2024 9:51 AM EST Date 10/31/2024 Assessment & Plan 79y/o male PMHx DM, HTN, CKD V (bCR~5 from 05/2023) d/t HTN + DM (neph Dr in [place]), admit as xfer fromOSH with dyspnea (COVID+) [...] Physical Exam Vitals: 10/30/24 1952 10/31/24 0521 10/31/24 0817 10/31/24 0914 BP: (!) 104/58 (!) 145/73 (!) 152/86 [...] from the original note were not included. 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 He was initially admitted to the MICU on insulin drip. Troponin found to be elevated 6030-3200, EKG noted to be sinus with poor R wave progression and nonspecific ST changes. He was initiated on a heparin drip forNSTEMI. Course further complicated by acute HFrEF LVEF 28%, COVID, and ALISA on CKD. Awaiting [facility] today. Plan NSTEMI NSVT HTN HsT peak [...] agreement with plan of care as above. [facility] Cardiology will continue to follow. Subjective Denies [...] PO, Daily Given, 0.5 mcg at 10/30 09 calcium carbonate (TUMS) chewable tablet 500 mg 500 mg, PO, Daily Ordered chlorhexidine (PERIDEX) 0.12 % oral solution 15 mL 15 mL, MT, BID Given, 15 mL at 10/30 2156 darbepoetin kelley (ARANESP) injection 60 mcg 60 mcg, SC, Weekly Given, 60 mcg at 10/30 953 insulin glargine (LANtus/SEMGLEE) 100 units/mL injection 10 Units 10 Units, SC, Daily Given, 10 Units at 10/30 953 insulin lispro (HumaLOG/ADMELOG) 100 units/mL injection 1-4 [...] Medrano MD - 10/30/2024 9:43 AM EST [facility] Medicine Progress note Assessment & Plan [...] 25 mcg daily COVID infection -COVID-positive on 1/10, on airborne precaution aspirin, 81 mg, Daily [...] d/t HTN + DM (neph Dr in [place]), admit as xfer fromOSH with dyspnea (COVID+) [...] Lying Pulse: 64 65 62 Resp: (!) 17 Temp: 97.6 ??F (36.4 ??C) 97.2 ??F (36.2 ??C) 97.9 ??F (36.6 ??C) TempSrc: Tympanic Tympanic Tympanic SpO2: 95% 96% 95% Weight: 65.1 kg (143 lb 8.3 oz) Height: Intake/Output Summary (Last 24 hours) at 10/30/2024 0904 Last data filed at 10/30/2024 0500 Gross per 24 hour Intake 271.04 ml Output 2300 ml Net -8.96 ml Physical Exam Vitals reviewed. Constitutional: General: [...] from the original note were not included. [facility] Cardiology Transfer Service Progress Note Chief Complaint: [...] today - Strict I&Os, daily weights Primary Stage Driver: [facility] Cardiology will continue to follow. Case discussed with [facility] attending Dr. Valentino Subjective Pt reports he [...] d/t HTN + DM (neph Dr in [place]), admit as xfer fromOSH with dyspnea (COVID+) [...] hyperparathyroidism - continue calcitriol 0.[address] [facility] timing - TBD Subjective HPI Continues with O2 oxy mask overnight-weaned to NC this AM Heparin drip ongoing No dyspnea symptoms He remains patient despite multiple days of delay for [facility] Review of Systems Respiratory: negative Cardiovascular: negative [...] Lying Lying Pulse: 63 61 62 Resp: 18 Temp: 97.2 ??F (36.2 ??C) 96.7 [...] Diet Diabetic/ Calorie Controlled; Carb Counting 60g/meal 5880-1155 kcal History Diabetes History Pre-Admission Regimen: Lantus [...] in the patient record Speaking with a hr business partner consultant Reviewing Labs & Radiology Signed Lucinda Whyte Endocrinology - Medicine 10/29/2024 8:33 AM * Macy Macias PA-C - 10/29/2024 7:45 AM EST Images from the original note were not included. [facility] Cardiology Transfer Service Progress Note Chief Complaint: [...] Plan NSTEMI NSVT HTN - Plan for C on 10/30 -Troponin elevated 1830->4171, EKG showed [...] today - Strict I&Os, daily weights Primary Stage Driver: [facility] Cardiology will continue to follow. Case discussed with [facility] attending Dr. Contreras Subjective Pt reports that he feels well Patient denies chest pain, shortness of breath, dizziness, lightheadedness, nausea, vomiting, palpitations Objective Telemetry Reviewed: NSR 78 Last Vitals Pulse:61,Resp:18,BP:(!) 144/65,SpO2:95 %,Weight:65.2 kg (143 lb 11.8 oz) Temp Last 24 hrs: Temp Min: 96.7 ??F (35.9 ??C) Max: 98.2 ??F (36.8 ??C) Intake/Output Summary (Last 24 hours) at 10/29/2024 0737 Last data filed at 10/29/2024 0633 Gross [...] Pulse: 63 62 69 67 Resp: 18 16 18 Temp: 98.2 ??F (36.8 [...] d/t HTN + DM (neph Dr in [place]), admit as xfer fromOSH with dyspnea (COVID+) and DKA. ?NSTEMI. TTE 10/18/24 - EF 28% - new. Assessment CKD 5 NSTEMI Anemia of CKD Hypocalcemia COVID + Plan No change to GFR RADHA risk remains unchanged C timing - TBD Lytes reviewed - K, [...] PO, Daily Given, 75 mg at 10/28 0736 senna-docusate (SENNA-S) 8.6-50 MG tablet 2 tablet [...] 10/28/2024 9:31 AM EST Endocrinology Progress Note BRIM POUNCER MACHINE OPERATOR Endocrinology - Medicine Today's Date: 10/28/2024 Admit [...] Diet Diabetic/ Calorie Controlled; Carb Counting 60g/meal 3050-8934 kcal Steroids: None Infusions: heparin (porcine) IV [...] outside hospital with URI symptoms, transferred to [facility] for management of DKA and ICU, stable [...] 75 mg daily - Continue telemetry -- orthodontic laboratory technician most likely be on Monday 10/30, please [...] various nights and back to diet pending [employer] for several days with concern that he [...] Subjective Overnight: Patient did not go to [employer] yesterday, stable overnight no acute events Today: Patient seen and examined at this morning. He is on supplemental oxygen. He states he is feeling well and awaits [employer]. I communicated that the cath is again [...] Patient remains on heparin drip pending cardiac forestry laborer. Patient requires intermittent doses of IV Lasix for pulmonary edema and work of breathing. Kavya Burgess MD. PGY-2 Internal Medicine [place] Text Preferred Associated attestation - Madhav Ryan [...] outside hospital with URI symptoms, transferred to [facility] for management of DKA and ICU, stable [...] 75 mg daily - Continue telemetry -- orthodontic laboratory technician most likely be on Monday 10/30, please [...] patient has been n.p.o. at midnight pending [employer] for several days resuming a diet in [...] Subjective Overnight: Patient did not go to [employer] yesterday, stable overnight no acute events Today: Patient seen and examined at this morning. He is on supplemental oxygen. He states he is feeling well and awaits [employer]. I communicated that the cath is again [...] gap. 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 Patient requires intermittent doses of IV Lasix for pulmonary edema and work of breathing. Donavon Rodgers MD PGY-1 Internal Medicine [place] Text Preferred Associated attestation - Madhav Ryan [...] d/t HTN + DM (neph Dr in [place]), admit as xfer fromOSH with dyspnea (COVID+) [...] Lying Lying Pulse: 94 66 63 Resp: 16 Temp: 97.4 ??F (36.3 ??C) 97.7 [...] 10/27/2024 9:07 AM EST Endocrinology Progress Note BRIM POUNCER MACHINE OPERATOR Endocrinology - Medicine Today's Date: 10/27/2024 Admit [...] Diet Diabetic/ Calorie Controlled; Carb Counting 60g/meal 4876-6509 kcal Steroids: none Infusions: dextrose, 25 mL/hr, [...] / Covid and DKA. Cannot rule out [place], COVID myocarditis, or stress induced cardiomyopathy at [...] private room post cath High risk for SWITCHING CLERK remains unchanged Recommend avoiding albuterol transition to [...] 2/3 @ 2:30 [address] [facility] cardiology will continue to follow. Case discussed with attending, Dr. Contreras Plan was communicated to primary team /and the [place] 3 team IMPROVE SCORE: . Stepdown / ICU / CCU Stay: 1-->Stepdown / ICU / CCU stay Age > 60 yrs: 1--> Age > 60 years IMPROVE SCORE: 2 DVT PPX: Heparin drip CODE STATUS:full code HCP/Decision maker: Patient Telemetry:Yes This note was prepared using voice recognition software and direct typing. Please excuse inadvertent croze machine operator or typing errors, or uncorrected word substitutions. [...] system. Dr. Pushpa Gallegos was notified by [place] text at 12:36 PM. Imaging Studies XR [...] effusions unchanged. Interpreted by: Mitchell Ascencio DO Silver Service Waiter I personally reviewed the images and the [...] Sample left with bedside RN. ACCESS: 6 American Mvuk-K-Fhzlpzlp closed needle/catheter system REQUESTING PRACTITIONER: Cheryl Blue [...] traversingadjacent organs or vascular structures. A 6 American Jqyi-Q-Xkkorbyw closed needle/catheter system was utilized for access. [...] adjacent organs or vascular structures. A 6 American Dqdy-N-Valljiay closed needle/catheter system was utilized for access. [...] system. Dr. Pushpa Gallegos was notified by [place] text at 12:36 PM. XR Chest 1 [...] atelectasis, respectively. Interpreted by: Prem Coffman MD Silver Service Waiter I personally reviewed the images and the [...] / Covid and DKA. Cannot rule out [place], COVID myocarditis, or stress induced cardiomyopathy at this point. NSTEMI likely type II demand however unable to rule out type I hence awaiting cardiac Medication regimen Consulted IC appreciate input Patient will remain n.p.o. at midnight for hopefully for [facility] and [facility] spoke with nephrology Dr. Perez who is in agreement to have the patient proceed with cath in a.m. given no availability today Continue heparin gtt per ACS protocol Continue ASA 81 mg daily Continue atorvastatin 80 mg daily Continue Toprol-XL 75 mg p.o. daily Continuous telemetry monitoring Patient will need a private room post cath High risk for SWITCHING CLERK remains unchanged ALISA on CKD Creatinine peak [...] 2/3 @ 2:[address] [facility] cardiology will continue to follow. Case discussed with attending, Dr. Contreras Plan was communicated to primary team dr Neymar Mcfarland /and the [place] 3 team IMPROVE SCORE: Stepdown / ICU / CCU Stay: 1-->Stepdown / ICU / CCU stay Age > 60 yrs: 1--> Age > 60 years IMPROVE SCORE: 2 DVT PPX: SC Heparin CODE STATUS:full code HCP/Decision maker: Patient Telemetry:Yes This note was prepared using voice recognition software and direct typing. Please excuse inadvertent croze machine operator or typing errors, or uncorrected word substitutions. [...] system. Dr. Pushpa Gallegos was notified by [place] text at 12:36 PM. Imaging Studies XR [...] effusions unchanged. Interpreted by: Mitchell Ascencio DO Silver Service Waiter I personally reviewed the images and the [...] Sample left with bedside RN. ACCESS: 6 American Ciql-K-Rqueodxy closed needle/catheter system REQUESTING PRACTITIONER: Cheryl Blue [...] traversingadjacent organs or vascular structures. A 6 American Usoi-D-Micygjcs closed needle/catheter system was utilized for access. [...] adjacent organs or vascular structures. A 6 American Bdkw-O-Pqjlptcn closed needle/catheter system was utilized for access. [...] system. Dr. Pushpa Gallegos was notified by [place] text at 12:36 PM. XR Chest 1 [...] atelectasis, respectively. Interpreted by: Prem Coffman MD Silver Service Waiter I personally reviewed the images and the [...] Lateral leads Confirmed by DO Ladd Kyla ([id number]) on 10/25/2024 8:09:06 PM Medications Medications Scheduled [...] Bryant Gracia PA-C, 10/26/2024 5:18 PM * Shaematthew Perezard, PT - 10/26/2024 11:10 AM EST Physical [...] level of independence with functional mobility. Current [facility] Basic Mobility Score: 20 Rehab Plan of [...] Level Achieved Ambulation Ambulation Distance (Feet) 15 [facility] Basic Mobility Turning from your back to [...] Climbing 3-5 steps with a railing? 3 [facility] Basic Mobility Score 20 Therapy Assessment/Plan (PT) [...] d/t HTN + DM (neph Dr in [place]), admit as xfer fromOSH with dyspnea (COVID+) [...] hypocalcemia and secondary hyperparathyroidism. His risk of SWITCHING CLERK remains unchanged Subjective HPI Vipul remains with [...] High Risk Medication, 15 Units/kg/hr at 10/25 180 PRN Medication Ordered Dose/Rate, Route, Frequency Last [...] 10/26/2024 9:39 AM EST Endocrinology Progress Note BRIM POUNCER MACHINE OPERATOR Endocrinology - Medicine Today's Date: 10/26/2024 Admit [...] team patient will be going to the [employer]. Currently n.p.o. Addendum: Notified by team, cath [...] outside hospital with URI symptoms, transferred to [facility] for management of DKA and ICU, stable [...] patient has been n.p.o. at midnight pending [employer] for several days resuming a diet in [...] Subjective Overnight: Patient did not go to [employer] yesterday, stable overnight no acute events Today: Patient seen and examined at this morning. He is on supplemental oxygen. He states he is feeling well and awaits [employer]. Patient continues to be very positive and [...] gap. 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 Patient requires intermittent doses of IV Lasix for pulmonary edema and work of breathing. Donavon Rodgers MD PGY-1 Internal Medicine [place] Text Preferred Associated attestation - Neymar Mcfarland [...] / Covid and DKA. Cannot rule out [place], COVID myocarditis, or stress induced cardiomyopathy at [...] 2/3 @ 2:30 [address] [facility] cardiology will continue to follow. Case discussed with attending, Dr. Contreras Plan was communicated to primary team dr Neymar Mcfarland /and the [place] 3 team IMPROVE SCORE: Stepdown / ICU / CCU Stay: 1-->Stepdown / ICU / CCU stay Age > 60 yrs: 1--> Age > 60 years IMPROVE SCORE: 2 DVT PPX: Heparin drip CODE STATUS:full code HCP/Decision maker: Patient Telemetry:Yes This note was prepared using voice recognition software and direct typing. Please excuse inadvertent croze machine operator or typing errors, or uncorrected word substitutions. [...] system. Dr. Pushpa Gallegos was notified by [place] text at 12:36 PM. Imaging Studies XR [...] effusions unchanged. Interpreted by: Mitchell Ascencio DO Silver Service Waiter I personally reviewed the images and the [...] Sample left with bedside RN. ACCESS: 6 American Stif-C-Rlbgelmz closed needle/catheter system REQUESTING PRACTITIONER: Cheryl Blue [...] traversingadjacent organs or vascular structures. A 6 American Axnw-V-Evxlamou closed needle/catheter system was utilized for access. [...] adjacent organs or vascular structures. A 6 American Jhmu-P-Uhpqcbpe closed needle/catheter system was utilized for access. [...] system. Dr. Pushpa Gallegos was notified by [place] text at 12:36 PM. XR Chest 1 [...] atelectasis, respectively. Interpreted by: Prem Coffman MD Silver Service Waiter I personally reviewed the images and the [...] and diabetic kidney disease (he follows with papier mache molder in [place]), who presented intially to OSH with URI [...] with falling creatinine still greater than 25% labelling machine operator providers are well aware of this condition [...] long time and has follow-up with a papier mache molder in [place]. He feels very confident about his function [...] Resolved Problems: Assessment & Plan Assessment: Neymar Hernándezbenjyomar is a 79 y.o. male with T2DM [...] outside hospital with URI symptoms, transferred to [facility] for management of DKA and ICU, stable [...] patient has been n.p.o. at midnight pending [employer] [employer] for several days resuming a diet in [...] Subjective Overnight: Patient did not go to [facility] yesterday, stable overnight no acute events Today: Patient seen and examined at this morning. He is on supplemental oxygen. He states he is feeling well and awaits [facility]. Patient has been very patient and awaits [facility] Objective Last Vitals Pulse:77,Resp:16,BP:(!) 145/70,SpO2:(!) 91 %,Weight:65.9 [...] gap. 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 Patient requires intermittent doses of IV Lasix for pulmonary edema and work of breathing. Donavon Rodgers MD PGY-1 Internal Medicine [place] Text Preferred Associated attestation - Neymar Mcfarland [...] Mcfarland MD 10/27/2024 10:40 AM * Mellissa Dumont, LACHO - 10/24/2024 8:41 AM EST Endocrinology Progress Note Endocrinology - Medicine Today's Date: 10/24/2024 Admit Date: 10/18/2024 5:10 AM Assessment & Plan Neymar Hernándezozziekirk is a 79 y.o. male with T2DM, [...] fluid overload patient has not gone to [facility] yet We will keep fingersticks every 4 [...] (Order- Specific), Last Rate: 15 Units/kg/hr (10/24/24 8104) Discharge Planning: Depending on disposition, was on [...] / Covid and DKA. Cannot rule out [place], COVID myocarditis, or stress induced cardiomyopathy at [...] arrange for cardiology follow-up prior to discharge [facility] cardiology will continue to follow. Case discussed with attending, Dr. Contreras Plan was communicated to primary team dr Neymar Mcfarland /and the [place] 3 team IMPROVE SCORE Stepdown / ICU / CCU Stay: 1-->Stepdown / ICU / CCU stay Age > 60 yrs: 1--> Age > 60 years IMPROVE SCORE: 2 DVT PPX: Heparin drip CODE STATUS:full code HCP/Decision maker: Patient Telemetry:Yes This note was prepared using voice recognition software and direct typing. Please excuse inadvertent croze machine operator or typing errors, or uncorrected word substitutions. [...] system. Dr. Pushpa Gallegos was notified by [place] text at 12:36 PM. Imaging Studies XR [...] effusions unchanged. Interpreted by: Mitchell Ascencio DO Silver Service Waiter I personally reviewed the images and the [...] Sample left with bedside RN. ACCESS: 6 American Sxeb-V-Wfpencgk closed needle/catheter system REQUESTING PRACTITIONER: Cheryl Blue [...] traversingadjacent organs or vascular structures. A 6 American Ozbo-P-Aaryrqnq closed needle/catheter system was utilized for access. [...] adjacent organs or vascular structures. A 6 American Zndw-V-Izgdhyfc closed needle/catheter system was utilized for access. [...] system. Dr. Pushpa Gallegos was notified by [place] text at 12:36 PM. XR Chest 1 [...] atelectasis, respectively. Interpreted by: Prem Coffman MD Silver Service Waiter I personally reviewed the images and the [...] Date HSTNT 4,276 () 10/19/2024 HSTNT 4,239 (HH) 10/19/2024 HSTNT 4,171 () 10/19/2024 Lab Results [...] outside hospital with URI symptoms, transferred to [facility] for management of DKA and ICU, stable [...] the patient will be taken to the [facility] and will remain n.p.o. until the procedure is over. The patient had increasing oxygen requirements overnight and repeat chest x-ray showed pulmonary edema. We discussed these findings with the [facility] as they would like to give gentle hydration to protect the patient's p oorly functioning kidneys. He will also be given 40 mg of Lasix to help with his respiratory statusand pulmonary edema. - Lasix 40 mg now [...] insulin. The patient has been n.p.o. pending [facility] [employer] [facility] and there is concern that he may [...] gap. 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 Donavon Rodgers MD PGY-1 Internal Medicine [place] Text Preferred Associated attestation - Neymar Mcfarland [...] effusions bilaterally. Findings consistent with pulmonary edema. Cardiomediastinalsilhouette enlarged. Agree with IV Lasix 40 mg [...] and diabetic kidney disease (he follows with papier mache molder in [place]), who presented intially to OSH with URI [...] with slight improvement to 4.3 Plan for forestry laborer now pushed a day or two Lázaro Score slightly improving with falling creatinine labelling machine operator providers are well aware of this condition [...] long time and has follow-up with a papier mache molder in [place]. He feels very confident about his function [...] found for: TACROLIMUS No results found for: [id number] , TOTVOL , CRCLR , PERIOD No [...] 10/21 2104 Sincerely, Marty Kent MD, [employer] Chronic Kidney Disease [facility] Attending L D Rn, Partner, [facility] Continuous Medication Ordered Dose/Rate, [...] 10/19/24) Type 2 diabetes diabetic ketoacidosis insulin-dependent AILSA on CKD stage V creatinine baseline 4.8-5.2 [...] until post cath YULY/ARB/ARNI : Given worsening ALIAS on hold until post and given worsening [...] / Covid and DKA. Cannot rule out [place], COVID myocarditis, or stress induced cardiomyopathy at [...] arrange for cardiology follow-up prior to discharge [facility] cardiology will continue to follow. Case discussed with attending, Dr. Contreras Plan was communicated to primary team dr Neymar Mcfarland /and the [place] 3 team IMPROVE SCORE: Stepdown / ICU / CCU Stay: 1-->Stepdown / ICU / CCU stay Age > 60 yrs: 1--> Age > 60 years IMPROVE SCORE: 2 DVT PPX: Heparin drip CODE STATUS:full code HCP/Decision maker: Patient Telemetry:Yes This note was prepared using voice recognition software and direct typing. Please excuse inadvertent croze machine operator or typing errors, or uncorrected word substitutions. [...] system. Dr. Pushpa Gallegos was notified by [place] text at 12:36 PM. Imaging Studies XR [...] effusions unchanged. Interpreted by: Mitchell Ascencio DO Silver Service Waiter I personally reviewed the images and the [...] Sample left with bedside RN. ACCESS: 6 American Ybjb-S-Bvuybbzx closed needle/catheter system REQUESTING PRACTITIONER: Cheryl Blue [...] traversingadjacent organs or vascular structures. A 6 American Gpgv-S-Dwbpvhmg closed needle/catheter system was utilized for access. [...] adjacent organs or vascular structures. A 6 American Tcdo-H-Miwmexac closed needle/catheter system was utilized for access. [...] system. Dr. Pushpa Gallegos was notified by [place] text at 12:36 PM. XR Chest 1 [...] atelectasis, respectively. Interpreted by: Prem Coffman MD Silver Service Waiter I personally reviewed the images and the [...] QT has lengthened Confirmed by MD Alex, [facility] (42) on 10/22/2024 7:57:16 AM Medications Medications [...] outside hospital with URI symptoms, transferred to [facility] for management of DKA and ICU, stable [...] gap. 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 Donavon Rodgers MD PGY-1 Internal Medicine [place] Text Preferred Associated attestation - Neymar Mcfarland [...] (he follows with Dr Henrik Bird in [place]), who presented intially to OSH with URI [...] with slight improvement to 4.3 Plan for forestry laborer today. Lázaro Score with 100cc of [...] long time and has follow-up with a papier mache molder in [place]. He feels very confident about his function [...] found for: TACROLIMUS No results found for: [id number] , TOTVOL , CRCLR , PERIOD No [...] 10/21 2105 Sincerely, Marty Kent MD, [employer] Chronic Kidney Disease [facility] Attending L D Rn, Partner, [facility] Physicians Continuous Medication Ordered Dose/Rate, Route, [...] / Covid and DKA. Cannot rule out [place], COVID myocarditis, or stress induced cardiomyopathy at [...] arrange for cardiology follow-up prior to discharge [facility] cardiology will continue to follow. Case discussed [...] software and direct typing. Please excuse inadvertent croze machine operator or typing errors, or uncorrected word substitutions. [...] system. Dr. Pushpa Gallegos was notified by [place] text at 12:36 PM. Imaging Studies XR [...] effusions unchanged. Interpreted by: Mitchell Ascencio DO Silver Service Waiter I personally reviewed the images and the [...] Sample left with bedside RN. ACCESS: 6 American Wchv-R-Klleqckb closed needle/catheter system REQUESTING PRACTITIONER: Cheryl Blue [...] traversingadjacent organs or vascular structures. A 6 American Mlvi-V-Pvyotqxz closed needle/catheter system was utilized for access. [...] adjacent organs or vascular structures. A 6 American Qmga-M-Mzjgwqso closed needle/catheter system was utilized for access. [...] system. Dr. Pushpa Gallegos was notified by [place] text at 12:36 PM. XR Chest 1 [...] atelectasis, respectively. Interpreted by: Prem Coffman MD Silver Service Waiter I personally reviewed the images and the [...] QT has lengthened Confirmed by MD Alex, [facility] (42) on 10/22/2024 7:57:16 AM Medications Medications [...] 10/21/24 0803 10/21/24 0309 10/20/24 0215 10/19/24 7539 SODIUM mmol/L -- 145 -- -- 140 [...] outside hospital with URI symptoms, transferred to [facility] for management of DKA and ICU, stable [...] telemetry -- Cardiology will bring patient for forestry laborer tomorrow for RHC and LHC, NPO [...] gap. 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 Donavon Rodgers MD PGY-1 Internal Medicine [place] Text Preferred Associated attestation - Neymar Mcfarland [...] Diet Diabetic/ Calorie Controlled; Carb Counting 60g/meal 8862-2102 kcal Steroids: None. Drips: None. History Diabetes [...] Diet Diabetic/ Calorie Controlled; Carb Counting 60g/meal 7050-4822 kcal Steroids: None. Drips: None. History Diabetes [...] outside hospital with URI symptoms, transferred to [facility] for management of DKA and ICU, stable [...] Antonio Hameed PGY1, Internal Medicine Available on [place] Text 10/21/2024 10:39 AM Associated attestation - [...] MD (Nina) MPH Chief, Department of Medicine [phone] * Linda Rivera PA-C - 10/21/2024 6:28 AM EST Images from the original note were not included. [facility] Cardiology Transfer Service Progress Note Chief Complaint: [...] viral pneumonia and DKA. Cannot rule out [place], COVID myocarditis, or stress induced cardiomyopathy at [...] outpatient cardiology follow up prior to discharge. [facility] cardiology will continue to follow. Case discussed [...] inpatient Arrived From Hospital General Information Comments [facility] Initial Information How to be Addressed Vipul Source of Information patient;family;health record Stated Reason for Admission Covid, Heart, High Sugar Levels Patient Aware of Diagnosis yes Limitations on Visitors/Phone Calls none Temporary Family Living Arrangements (While Hospitalized) none needed Adaptive Services not applicable Does the Patient Have a CT DNR Per[place] Bracelet or State DNR Form? no Clinical Trial not applicable Designated Caregiver for Discharge Coordination Do You Have a Designated Caregiver for Discharge? yes Designated Caregiver's Name Prem Wilder Caregiver's Relationship to Patient childcare administrator's Caregiver's Address Same as the patient's address. [...] were you homeless or living in a fdc (including now)? N Food Insecurity Within the [...] of Pulmonary, Critical Care, and Sleep Medicine [address] [place] [address], [address], [place] [address] Critical Care Progress Note Assessment & Plan [...] system. Dr. Pushpa Gallegos was notified by [place] text at 12:36 PM. GI: >Nutrition: Diet/Nutrition Received: consistent carb/diabetic diet Diet Diabetic/ Calorie Controlled; Carb Counting 60g/meal 3600-1641 kcal Renal: CKD 5, stable Monitor >Intake [...] if appropriate. This report was generated using [employer] Speaking dictation software. Although every attempt has [...] Hickey MD Principal Problem: DKA (diabetic ketoacidosis) ([facility]) (POA: Yes) Resolved Problems: Assessment & Plan [...] Diet Diabetic/ Calorie Controlled; Carb Counting 60g/meal 7257-9048 kcal Steroids: None. Drips: None. History Diabetes [...] from the original note were not included. [facility] RESIDENT PROGRESS NOTE LOS: 2 CODE:: Code Status Procedures Full Code Subjective Hospital Course: This is a 79 yo male with PMHx of stage V CKD (has not been on hemodialysis follows with nephrologyin [place]), insulin-dependent diabetes, hypertension, HFrEF with acute decompensation [...] Problem List Principal Problem: DKA (diabetic ketoacidosis) ([facility]) (POA: Yes) Resolved Problems: Assessment Neymar Baum Meño 79 y.o. w/ PMHx of stage V CKD (has not been on hemodialysis follows with nephrology in [place]), insulin-dependent diabetes, hypertension admitted to ICU for [...] Diet Diabetic/ Calorie Controlled; Carb Counting 60g/meal 6364-5542 kcal NEPHROLOGY ALISA on stage III CKD [...] Tilley. Sign Lesly Luke MD Available on [place] Text 10/20/2024 7:48 AM * Linda Rivera PA-C - 10/20/2024 6:40 AM EST Images from the original note were not included. [facility] Cardiology Transfer Service Progress Note Chief Complaint: [...] viral pneumonia and DKA. Cannot rule out [place], COVID myocarditis, or stress induced cardiomyopathy at [...] outpatient cardiology follow up prior to discharge. [facility] cardiology will continue to follow. Case discussed [...] PO, Daily Given, 81 mg at 10/19 075 atorvastatin (LIPITOR) tablet 80 mg 80 mg, [...] Continuous Rate/Dose Verify, 14 Units/kg/hr at 10/20 0600 PRN Medication Ordered Dose/Rate, Route, Frequency [...] been on hemodialysis follows with nephrology in [place]), insulin-dependent diabetes, hypertension admitted to ICU for [...] MD Donavon Amos MD PGY-1 Internal Medicine [place] Text Preferred ICU Check-list Code: Code Status [...] Sample left with bedside RN. ACCESS: 6 American Jizr-I-Xjjlenaq closed needle/catheter system REQUESTING PRACTITIONER: Cheryl Blue [...] traversingadjacent organs or vascular structures. A 6 American Cfnj-E-Hvstjxff closed needle/catheter system was utilized for access. [...] adjacent organs or vascular structures. A 6 American Kzxr-N-Qdvmcbex closed needle/catheter system was utilized for access. [...] effusions unchanged. Interpreted by: Mitchell Ascencio DO Silver Service Waiter DIET/NUTRITION: Diet/Nutrition Received: NPO Diet NPO; Meds Behavioral/Sedation scales: CAM-ICU Delirium Present: Negative Rea Agitation Sedation Scale (RASS) / Modified RASS: 0-->alert and calm Ventilator settings: Associated attestation - Kristopher Hickey MD - 10/19/2024 11:[address] [facility] Attestation note: Kristopher Hickey MD [...] Pulmonary, Critical Care, and Sleep Medicine [address], [address], [place] [address] Critical Care Progress Note Assessment & Plan [...] system. Dr. Pushpa Gallegos was notified by [place] text at 12:36 PM. GI: >Nutrition: Diet/Nutrition [...] mEq/L, 50 mL/hr, Last Rate: 50 mL/hr (10/19/24899) dextrose 5 % and sodium chloride 0.9 %, 10 mL/hr, Last Rate: Stopped (10/18/24 1553) heparin (porcine) IV infusion - low dose protocol, 12 Units/kg/hr (Order- Specific), Last Rate: 14 Units/kg/hr (10/19/24899) insulin regular (HumuLIN-R) IV infusion - Glucommander, 0-100 Units/hr, Last Rate: 1.7 Units/hr (10/19/24 09) Lines: Peripheral IV - Single Lumen (Adult) [...] if appropriate. This report was generated using [employer] Speaking dictation software. Although every attempt has been made by the provider to proofread this document, occasional misspellings and typographical errors may still be present. Sign: Kristopher Hickey MD 10/19/2024 9:56 AM * Linda Rivera PA-C - 10/19/2024 6:33 AM EST Images from the original note were not included. [facility] Cardiology Transfer Service Progress Note Chief Complaint: [...] viral pneumonia and DKA. Cannot rule out [place], COVID myocarditis, or stress induced cardiomyopathy at [...] outpatient cardiology follow up prior to discharge. [facility] cardiology will continue to follow. Case discussed [...] Pulmonary, Critical Care, and Sleep Medicine [address], [address], [place] [address] Critical Care Progress Note Assessment & Plan [...] There were discussions of HD with his papier mache molder Dr. Pelon Smith Electrolyte monitoring Avoid nephrotoxins, monitor urine output Get nephrology on board given likely need for cardiac cath >Intake & Output No intake or output data in the 24 hours ending 10/18/24 3774 Endo: Glucommander protocol Gentle IV fluids given concern for volume overload Heme/Onc: On heparin drip for NSTEMI ID: No signs or symptoms of infection Monitor off antibiotics >Antibiotics: Drips: dextrose 5 % and sodium chloride 0.9 %, 10 mL/hr heparin (porcine) IV infusion - low dose protocol, 12 Units/kg/hr (Order- Specific), Last Rate: 12 Units/kg/hr (10/18/24 9324) insulin regular (HumuLIN-R) IV infusion - Glucommander, 0-100 Units/hr, Last Rate: 10 Units/hr (10/18/24 6500) Lines: Peripheral IV - Single Lumen (Adult) [...] Once New Bag, 2 g at 10/18 07 chlorhexidine (PERIDEX) 0.12 % oral solution 15 mL 15 mL, MT, BID Given, 15 mL at 10/18 0733 senna-docusate (SENNA-S) 8.6-50 MG tablet 2 tablet [...] if appropriate. This report was generated using [employer] Speaking dictation software. Although every attempt has been made by the provider to proofread this document, occasional misspellings and typographical errors may still be present. Sign: Pushpa Gallegos MD 10/18/2024 7:54 AM documented in this encounter H&P Notes * Cheryl Blue MD - 10/18/2024 8:33 AM EST Images from the original note were not included. [facility] MICU H&P LOS: 0 CODE: Code Status Procedures Full Code Assessment and Plan Problem List Principal Problem: DKA (diabetic ketoacidosis) (HCC) (POA: Yes) Resolved Problems: Assessment Neymar Wilder 79 y.o. w/ PMHx of stage V CKD (has not been on hemodialysis follows with nephrology in [place]), insulin-dependent diabetes, hypertension admitted to ICU for [...] V CKD (with prior discussions with patient's papier mache molder regarding possible initiation of HD) Plan by [...] CKD (there were discussions with patient's prior papier mache molder Dr. Pelon Smith regarding HD) Initial BUN/creatinine [...] chest pain History of Present Illness Neymar Wilder 79 y.o. w/ PMHx of stage V CKD (has not been on hemodialysis follows with nephrology in [place]), insulin-dependent diabetes, hypertension presented from outside hospital and transferred to [facility] for concerns of NSTEMI and DKA. Patient [...] Continuous PRN Fuad Winter MD Stopped at 10/18/241552 glucose (GLUTOSE 15) 40 % oral gel [...] Intravenous Continuous Fuad Winter MD Held at 10/18/241551 insulin regular (HumuLIN-R) IV infusion 100 units in 100 mL NS STOCK - Glucommander 0-100 Units/hr Intravenous Continuous Fuad Winter MD 0.7 mL/hr at 10/18/24 155 0.7 Units/hr at 10/18/24 155 lactulose (ENULOSE) 10 gm/15 mL solution 20 g 30 mL Oral Q4H PRN Nilda Dalton MD naloxone (NARCAN) 0.4 mg/mL injection 0.4 mg 0.4 mg Intravenous Q5 Min PRN Nilda Dalton MD senna-docusate (SENNA-S) 8.6-50 MG tablet 2 tablet 2 tablet Oral Nightly Madhumita Kolluri, MD No current outpatient medications on file. [...] atelectasis, respectively. Interpreted by: Prem Coffman MD Silver Service Waiter I personally reviewed the images and the [...] Procedure(s): Bilateral thoracentesis Indications: Bilateral pleural effusion Sod Stripper: None Anesthesia: None Fluid: 850ml of clear [...] ESTAssociated Order(s): IP CONSULT TO NUTRITION SERVICES [facility] Nutrition Note Visit Type: initial assessment Reason [...] was initially admitted to ICU, transferred to [place] on 10/20, now on floor level of [...] lb 1.8 oz) Fluids: 1600ml based on IMPREGNATING TANK OPERATOR Method (or per MD/team) Estimated/Assessed Carbohydrates [...] 1. 79 y.o. male with CAD, s/p IN 02/2024, transferred from [facility] with NSTEMI. 2. HFrEF with newly reduced [...] Illness 79 y.o. male with CAD, s/p IN 02/2024, HFrEF , CKD stage V, Cr [...] PO, Daily 6AM Given, 25 mcg at 10/238 metoPROLOL SUCCINATE (TOPROL-XL) 24 hr tablet 50 [...] H&P, physical assessment, and educated on cardiac [employer] procedure was approximately 60 minutes The following information is collected for participation in the [employer] CATH/PCI Registry (ACCNCDR) and is used for submission of data and may not be entirely consistent with the clinical evaluation. ACC-NCDR CathPCI V5 Collection Form History and Risk Factors Hypertension: Yes Diabetes mellitus: Yes Hx of CAD: No Prior IN: Yes Date of most recent IN: 02/08/2024 Prior CABG: No Prior PCI: No [...] assessed: No Indications and Presentation Indication(s) for forestry laborer visit: suspected CAD Chest pain symptom [...] medical Struve coronary artery disease status post IN in February 2024, heart failure with reduced [...] patient. Risks including but not limited to [place], stroke, emergency bypass surgery, bleeding or vascular [...] DM II, HTN who was transferred from [facility] to on 10/18/24 with concern for NSTEMI [...] been on hemodialysis follows with nephrology in [place]), insulin-dependent diabetes, hypertension presented from outside hospital and transferred to [facility] for concerns of NSTEMI and DKA. Patient [...] found for: TACROLIMUS No results found for: [id number] , TOTVOL , CRCLR , PERIOD No [...] as written. Signed, Marty Kent MD, [employer], CKD, [facility] Chief of Nephrology, [place] [place] * Tangela Reed PA-C - 10/19/2024 9:09 AM ESTAssociated Order(s): IP CONSULT TO ENDOCRINOLOGY Endocrinology Consult Note [facility] Endocrinology - Medicine Date of Consult: 10/19/2024 Patient's Primary Care Physician: No primary care provider on file. Physician Requesting Consult: Reason for Consultation: Diabetes Management Admit Date: 10/18/2024 5:10 AM Principal Problem: DKA (diabetic ketoacidosis) ([facility]) (POA: Yes) Resolved Problems: Addendum Pended orders [...] Complaint Diabetes Management Subjective: [facility], interviewed over [...] from the original note were not included. [facility] CARDIOLOGY TRANSFER SERVICE Date of Consult: 10/18/2024 Patient's Primary Care Physician: No primary care provider on file. Physician Requesting Consult: Pushpa Gallegos MD Primary Stage Driver: - Reason for Consultation: Shortness of Breath [...] layering effusion and/or atelectasis, respectively. Sign: Cecilia Puckett MD 10/18/2024 8:32 AM documented in this encounter ED Notes * Nesha Jacobsen RN - 10/18/2024 11:19 PM EST Report given to Tim ARGUETA on [facility] plan to transport patient on monitor with RN Nesha Jacobsen RN 10/18/24 9797 * Kristian Angeles RN - 10/18/2024 12:07 [...] history of diabetes presents in transfer from [facility] with the patient was found to be [...] from external provider, facility, or healthcare organization: [facility] ED note History obtained from other source [...] Resident 10/18/24 1014 Associated attestation - Fuad Winter MD - 10/22/2024 12:29 PM EST I [...] to fluid overload. Adriel Funez RN 10/18/24 6869 * Adriel Funez RN - 10/18/2024 5:24 [...] out type I hence awaiting cardiac 11/01 C 10/31: moderate proximal and mid LAD calcified [...] legal medical record. Vickie Norris RN, CDS [phone] * Case Coordination-Payor Communication - Meme Jones [...] Continued Stay Review Date: 10/31/2024 Clinical Update: [facility] today, remains NPO Neymar remains on heparin [...] 18 143/66 Abnormal 95 room air (none) 10/31/24 2045 -- 78 16 163/73 Abnormal 94 room [...] arrived to the unit at 2000 from forestry laborer. Upon assessment pt is Aox4, NSR [...] cath fluids. Heparin gtt infusing. Sent to forestry laborer for LHC.Strict isolation d/c. Oksana Zhang 10/31/2024 6:38 PM * Plan of Care - Torie Kwan RN - 10/30/2024 7:44 PM EST Plan of Care Reviewed With: patient Progress: improving Outcome Evaluation: Pt is A&Ox4. denies pain and SOB. medicated per MAR. Heparin continues per DEC. Strict isolation maintained. [...] 1830. On 10/18/2024, he was transferred to [facility] intensive care unit. He received treatment to DKA, acidosis and hyperglycemia improved on intravenous fluid and insulin therapy. Upon admission to [facility] NT-proBNP was found to have 70K and [...] clinically stable for transition. Plan is for [facility] today. At this time transition plan remains [...] given today per order. Pt transferring to 0, Report given to RN. Zaria Leyva 10/28/2024 6:30 PM * Plan of Care - Anny Joyce PA-C - 10/28/2024 3:36 PM EST Images from the original note were not included. [facility] Cardiology Transfer Service Plan of Care Note Pt noted to have ~20 beats of Vtach on monitor. Reportedly asymptomatic and hemodynamically stable during episode. Recommendations: -Aggressive electrolyte replacement with 2g IV Mag and 20 mg PO K+ -Lopressor 25 mg PO x1 with plan to increase Toprol-XL 100 mg daily tomorrow -No antiarrhythmic at this time -Pacer pads on -Tentatively planned for [facility] Tuesday, if VT persists contact forestry laborer sooner for consideration of more urgent [...] Burgess MD Internal Medicine PGY2 Available via [employer] 10/28/24 10:54 AM * Plan of Care [...] remained stable and we continue optimizing for [employer]. Catheter most likely happen early next week. He was appreciated update and I answered all his questions to the best my ability. Donavon Rodgers MD PGY-1 Internal Medicine [place] Text Preferred * Plan of Care - [...] of Care Reviewed With: patient Outcome Evaluation: [id number]: Neymar was A&Ox4 and had no complaints [...] Summary: pending cardiac cath Patient is from [place]. Recommendation: dispo plan home with HC services [...] ability. Donavon Rodgers MD PGY-1 Internal Medicine [place] Text Preferred * Plan of Care - Sirisha Adams RN - 10/26/2024 4:49 AM EST Progress: improving Outcome Evaluation: [id number]: Neymar remains alert and oriented *4. no shortness of breath. Continued on 4L oxymask, sating above goal. Continued on heparin drip. NPO since midnight for left and right heart cath today. slept between care. Sirisha dAams 10/26/2024 4:49 AM * Plan of Care - Olga Terrell RN - 10/25/2024 6:50 PM EST Plan of Care Reviewed With: patient Progress: improving Outcome Evaluation: [phone]. Pt alert and oriented *4. No reports [...] PM EST Patient set to go to forestry laborer tomorrow, has been made NPO at midnight. Called bed management to facilitate transfer of patient to [address] in a private room 2/2 COVID + status post cath * Plan of Care - Donavon Rodgers MD - 10/25/2024 12:49 PM EST I called the patient's son Prem with hospital update. I apologize for the delay in heart catheterization, and he was very understanding. I relayed that we continue waiting for the procedure, howeverhis father remained stable. I answered all the questions to the best my ability and he was gratefulfor the update Donavon Rodgers MD PGY-1 Internal Medicine [place] Text Preferred * Plan of Care - [...] Review Date: 10/25/2024 Clinical Update: NPO for forestry laborer today. Spot dose Lasix. Continues on heparin gtt while awaiting forestry laborer. 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 Pt alert and oriented *4. No reports [...] for his father to go to the [employer] today. He had increasing oxygen requirements overnight [...] ability. Donavon Rodgers MD PGY-1 Internal Medicine [place] Text Preferred * Plan of Care - Sirisha Adams RN - 10/24/2024 6:44 AM EST Outcome Evaluation: [id number]: Neymar is alert and oriented *4. Denies [...] Terrell RN - 10/23/2024 6:57 PM EST [phone]. Pt alert and oriented *4. No reports [...] With: patient Progress: no change Outcome Evaluation: [id number]: No acute changes. Heparin gtt adjusted per order parameters. Up to chair today. No c/o chest pain. Plan for possible left and right heart cath tomorrow. Zaria Leyva 10/23/2024 3:30 PM * Plan of Care - Glenny Pires RN - 10/23/2024 5:46 AM EST Plan of Care Reviewed With: patient Progress: no change Outcome Evaluation: Neymar had no acute changes. Alert and oriented x4, forgetful at times. Continues on heparin gtt. NPO at midnight for heart cath procedure today. Glenny Pires 10/23/2024 5:46 AM * Plan of Care - Sarah Nielsen RN - 10/22/2024 6:28 PM EST Plan of Care Reviewed With: patient Outcome Evaluation: [phone]: In the beginning of the shift Neymar [...] ability. Donavon Rodgers MD PGY-1 Internal Medicine [place] Text Preferred * Rehab Therapy Consults - [...] level of independence with functional mobility. Baseline [facility] Basic Mobility Score: 24 Current [facility] Basic Mobility Score: 20 Objective Data ROM: [...] History of Current Functional Problem Per chart: Neymar Hernándezozziekirk is a 79 y.o. male with PMHx of insulin-dependent T2DM, HFrEF, CKD, HTN, who presented with to outside hospital with URI symptoms, transferred to [facility] for management of DKA and ICU, stable [...] Progressive Mobility Level Achieved Transferring to Chair [facility] Basic Mobility Turning from your back to [...] Climbing 3-5 steps with a railing? 3 [facility] Basic Mobility Score 20 Therapy Assessment/Plan (PT) [...] PT goal 1 Transfer Goal 1 (PT) [place] Level/Cues Needed (Transfer Goal 1, PT) modified independence Time Frame (Transfer Goal 1, PT) 2 weeks Activity/Assistive Device (Transfer Goal 1, PT) transfers, all;walker, rolling Gait Training Goal 1 (PT) Time Frame (Gait Training Goal 1, PT) 2 weeks [place] Level (Gait Training Goal 1, PT) modified independence Activity/Assistive Device (Gait Training Goal 1, PT) gait (walking locomotion);walker, rolling Distance (Gait Training Goal 1, PT) 300 feet Stairs Goal 1 (PT) [place] Level/Cues Needed (Stairs Goal 1, PT) supervision [...] of Care Reviewed With: patient Outcome Evaluation: [id number]: Neymar was A&Ox4 and had no complaints [...] up. Will attempt to reach again tomorrow. nAtonio Hameed PGY1 - Internal medicine * Plan [...] Progress: no change Outcome Evaluation: Arrived from [facility] around 1600. Skin check complete with 2nd [...] person supports:Self and Family PCP: Updated in [employer]. Added his preferred pharmacy as well. Anticipated [...] Continue Cierra Greenberg MC PGY-3 Internal Medicine [facility] Available on [employer] * Plan of Care - Donavon Rodgers MD - 10/19/2024 3:31 PM EST I updated the patient's sons at bedside. I let him know that we are managing his DKA with insulin drip protocol. However we reached out to endocrinology and we believe will be to transition him soon. We wait a few lab values and will transition him to subcutaneous insulin with overlap on insulin drip. We will start him on a diet as well pending these lab values. If he remains stable he will be [place] later tonight. Donavon Rodgers MD PGY-1 Internal Medicine [place] Text Preferred * Case Coordination-Payor Communication - Meme Jones - 10/19/2024 7:24 AM EST Per [facility] General Statutes Sec: [id number]: Notification of determination communicated within 2business days of receipt of all information necessary to complete the review. Please fax authorization determination to [phone] or call [phone] * Case Coordination-Payor Communication - Nathalia Liao RN - 10/19/2024 6:14 AM EST Type: (Inpt/Obs): Inpatient Date of Admission: 10/18/2024 Admitting Dx: DKA HPI: 79 y.o. w/ PMHx of stage V CKD (has not been on hemodialysis follows with nephrology in [place]), insulin-dependent diabetes, hypertension presented from outside hospital and transferred to [facility] for concerns of NSTEMI and DKA. Patient [...] V CKD (with prior discussions with patient's papier mache molder regarding possible initiation of HD) Vitals: Pulse:86,Resp:20,BP:138/69,SpO2:92 [...] CKD (there were discussions with patient's prior papier mache molder Dr. Pelon Smith regarding HD) Initial BUN/creatinine [...] OF CARE TEST ORDERABLES Performing Organization Address [facility] Phone Number HOSPITAL LAB See Below * (ABNORMAL) POCT Glucose, Fingerstick (11/01/2024 8:21 AM EST) POC Glucose 111(H) 65 - 99 mg/dL 11/01/2024 11:56 AM EST Blood specimen / Unknown 11/01/2024 8:21 AM EST 11/01/2024 11:56 AM EST Fuad Winter MD POINT OF CARE TEST ORDERABLES Performing Organization Address [facility] Number [facility] LAB See Below * (ABNORMAL) Phosphorus (Early AM) (11/01/2024 6:20 AM EST) Phosphorus 4.7(H) 2.7 - 4.5 mg/dL 11/01/2024 7:58 AM EST [facility] Blood (Plasma/Serum) 11/01/2024 6:20 AM EST 11/01/2024 6:57 AM EST Jonna Donis PA-C LAB BLOOD ORDERABL ES Performing Organization Address [facility] [place] [address], [place] [address] * MAGNESIUM (11/01/2024 6:20 AM EST) Magnesium 1.6 1.6 - 2.7 mg/dL 11/01/2024 7:58 AM EST [facility] Blood (Plasma/Serum) 11/01/2024 6:20 AM EST 11/01/2024 6:57 AM EST Jonna Donis PA-C LAB BLOOD ORDERABL ES Performing Organization Address [facility] [place] [address], [place] [address] * (ABNORMAL) COMPLETE BLOOD COUNT, WITHOUT DIFFERENTIAL (11/01/2024 6:20 AM EST) [facility] [address] White Blood Cell Count 9.1 4.0 - 11.0 Thou/uL 11/01/2024 7:10 AM [facility] Platelet Count 261 150 - 450 Thou/uL 11/01/2024 7:10 AM [facility] Hemoglobin 9.2(L) 13.0 - 17.7 g/dL 11/01/2024 7:10 AM [facility] Hematocrit 29.7(L) 39.0 - 54.0 % 11/01/2024 7:10 AM [facility] Red Blood Cell Count 3.00(L) 4.50 - 6.20 Mil/uL 11/01/2024 7:10 AM [facility] MCV 99 80 - 100 fL 11/01/2024 7:10 AM [facility] MCH 30.7 27.0 - 31.0 pg 11/01/2024 7:10 AM [facility] MCHC 31.0 30.0 - 36.0 g/dL 11/01/2024 7:10 AM [facility] RDW 16.2(H) 11.5 - 14.5 % 11/01/2024 7:10 AM [facility] MPV 11.4 7.5 - 12.5 fL 11/01/2024 7:10 AM [facility] Blood Blood specimen / Unknown 11/01/2024 6:20 AM EST 11/01/2024 6:57 AM EST Jonna Donis PA-C [place] [address], [place] [address] * (ABNORMAL) BASIC METABOLIC PANEL (11/01/2024 6:20 AM EST) [facility] [address] Glucose 92 65 - 99 mg/dL 11/01/2024 7:58 AM [facility] Comment:Fasting: <100 mg/dL, Non-Fasting: <200 mg/dL (ADA 2004) Blood Urea Nitrogen (BUN) 41(H) 8 - 21 mg/dL 11/01/2024 7:58 AM [facility] Creatinine 4.5(H) 0.5 - 1.3 mg/dL 11/01/2024 7:58 AM [facility] eGFR 13(L) >59 11/01/2024 7:58 AM [facility] Comment:CKD-EPI (2020) in mL /min/1.73 sq meters. Sodium 140 136 - 145 mmol/L 11/01/2024 7:58 AM [facility] Potassium 4.8 3.4 - 5.3 mmol/L 11/01/2024 7:58 AM [facility] Chloride 104 98 - 107 mmol/L 11/01/2024 7:58 AM [facility] CO2 22 22 - 33 mmol/L 11/01/2024 7:58 AM [facility] Anion Gap 14 7 - 17 11/01/2024 7:58 AM [facility] Calcium 9.3 8.7 - 10.5 mg/dL 11/01/2024 7:58 AM [facility] BUN/Creatinine Ratio 9(L) 10.0 - 25.0 Ratio 11/01/2024 7:58 AM [facility] Blood (Plasma/Serum) 11/01/2024 6:20 AM EST 11/01/2024 6:57 AM EST Jonna Donis PA-C [place] [address], [place] [address] * (ABNORMAL) POCT Glucose, Fingerstick (11/01/2024 1:58 [...] from the original result were not included. [facility] at [facility] - Cardiac Catheterization Laboratory PATIENT DEMOGRAPHIC INFORMATION Name: Neymar Baum Meño : 1945 79 y.o. 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 Calixto Ureña MD [facility] Heart [facility]ascular [facility] 10/31/2024 ??6:57 PM Coronary Findings Diagnostic Dominance: [...] POCT Glucose, Fingerstick (10/31/2024 4:45 PM EST) [facility] [address] POC Glucose 74 65 - 99 mg/dL 10/31/2024 4:46 PM EST Blood specimen / Unknown 10/31/2024 4:45 PM EST 10/31/2024 4:46 PM EST Fuad Winter MD POINT OF CARE TEST ORDERABLES HOSPITAL LAB See Below * Heparin Assay (Anti Xa) (10/31/2024 3:28 PM EST) [facility] [address] Anti Xa 0.36 IU/mL 10/31/2024 4:07 PM [...] MD LAB BLOOD ORDERABLES Performing Organization Address [facility] [place] [address], [place] [address] * POCT Glucose, Fingerstick (10/31/2024 12:04 PM EST) POC Glucose 92 65 - 99 mg/dL 10/31/2024 12:21 PM EST Blood specimen / Unknown 10/31/2024 12:04 PM EST 10/31/2024 12:21 PM EST Fuad Winter MD POINT OF CARE TEST ORDERABLES Performing Organization Address [facility] Phone Number [facility] LAB See Below * POCT Glucose, Fingerstick (10/31/2024 8:13 AM EST) POC Glucose 84 65 - 99 mg/dL 10/31/2024 8:15 AM EST Blood specimen / Unknown 10/31/2024 8:13 AM EST 10/31/2024 8:15 AM EST Fuad Winter MD POINT OF CARE TEST ORDERABLES Performing Organization Address [facility] Phone Number HOSPITAL LAB See Below * (ABNORMAL) High Sensitivity Troponin T (10/31/2024 7:16 AM EST) [facility] [address] High Sensitivity Troponin T 396(HH) <23 ng/L 10/31/2024 9:15 AM EST [facility] Delta (Change) NO PREVIOUS RESULT <3 10/31/2024 9:15 AM EST [facility] Plasma/Serum 10/31/2024 7:16 AM EST 10/31/2024 7:47 AM EST Madhav Ryan MD LAB BLOOD ORDERABLES Performing Organization Address City/[facility]/[place] [address], [place] [address] * TSH, HIGHLY SENSITIVE (10/31/2024 7:16 AM EST) [facility] [address] TSH, Highly Sensitive 2.06 0.27 - 4.20 mIU/L 10/31/2024 9:15 AM EST [facility] Plasma/Serum 10/31/2024 7:16 AM EST 10/31/2024 7:47 AM EST Madhav Ryan MD LAB BLOOD ORDERABLES [facility] [address] [place] [address], [place] [address] * Heparin Assay (Anti Xa) (10/31/2024 7:16 AM EST) [facility] [address] Anti Xa 0.54 IU/mL 10/31/2024 8:07 AM [facility] Comment: (NOTE) Heparin Thromboembolic/Standard/Full Dose Protocol: [...] LAB BLOOD ORDERAB LES Performing Organization Address [facility] [place] [address], [facility] [address] [place] [address] * (ABNORMAL) Phosphorus (Early AM) (10/31/2024 7:16 AM EST) Phosphorus 4.7(H) 2.7 - 4.5 mg/dL 10/31/2024 8:55 AM EST [facility] Blood (Plasma/Serum) 10/31/2024 7:16 AM EST 10/31/2024 7:47 AM EST Jonna Donis PA-C LAB BLOOD ORDERABL ES Performing Organization Address City/[facility] [place] [address], [place] [address] * MAGNESIUM (10/31/2024 7:16 AM EST) Pathologist [facility] Magnesium 1.7 1.6 - 2.7 mg/dL 10/31/2024 8:55 AM [facility] Blood (Plasma/Serum) 10/31/2024 7:16 AM EST 10/31/2024 7:47 AM EST Jonna Giraldo [employer] PA-C LAB BLOOD ORDERABL ES Performing Organization Address [facility] [place] [address], [place] [address] * (ABNORMAL) COMPLETE BLOOD COUNT, WITHOUT DIFFERENTIAL (10/31/2024 7:16 AM EST) [facility] [address] White Blood Cell Count 8.9 4.0 - 11.0 Thou/uL 10/31/2024 8:14 AM [facility] Platelet Count 289 150 - 450 Thou/uL 10/31/2024 8:14 AM [facility] Hemoglobin 9.6(L) 13.0 - 17.7 g/dL 10/31/2024 8:14 AM [facility] Hematocrit 31.4(L) 39.0 - 54.0 % 10/31/2024 8:14 AM [facility] Red Blood Cell Count 3.13(L) 4.50 - 6.20 Mil/uL 10/31/2024 8:14 AM [facility] MCV 100 80 - 100 fL 10/31/2024 8:14 AM [facility] MCH 30.7 27.0 - 31.0 pg 10/31/2024 8:14 AM [facility] MCHC 30.6 30.0 - 36.0 g/dL 10/31/2024 8:14 AM [facility] RDW 16.5(H) 11.5 - 14.5 % 10/31/2024 8:14 AM [facility] MPV 11.3 7.5 - 12.5 fL 10/31/2024 8:14 AM [facility] Blood Blood specimen / Unknown 10/31/2024 7:16 AM EST 10/31/2024 7:47 AM EST Jonna Donis PA-C [place] [address], [place] [address] * (ABNORMAL) BASIC METABOLIC PANEL (10/31/2024 7:16 AM EST) Glucose 82 65 - 99 mg/dL 10/31/2024 8:55 AM [facility] Comment:Fasting: <100 mg/dL, Non-Fasting: <200 mg/dL (ADA 2005) Blood Urea Nitrogen (BUN) 40(H) 8 - 21 mg/dL 10/31/2024 8:55 AM [facility] Creatinine 4.6(H) 0.5 - 1.3 mg/dL 10/31/2024 8:55 AM [facility] eGFR 12(L) >59 10/31/2024 8:55 AM [facility] Comment:CKD-EPI (2020) in mL /min/1.73 sq meters. Sodium 144 136 - 145 mmol/L 10/31/2024 8:55 AM [facility] Potassium 4.7 3.4 - 5.3 mmol/L 10/31/2024 8:55 AM [facility] Chloride 104 98 - 107 mmol/L 10/31/2024 8:55 AM [facility] CO2 24 22 - 33 mmol/L 10/31/2024 8:55 AM [facility] Anion Gap 16 7 - 17 10/31/2024 8:55 AM [facility] Calcium 8.8 8.7 - 10.5 mg/dL 10/31/2024 8:55 AM [facility] BUN/Creatinine Ratio 9(L) 10.0 - 25.0 Ratio 10/31/2024 8:55 AM EST [facility] Blood (Plasma/Serum) 10/31/2024 7:16 AM EST 10/31/2024 7:47 AM EST Jonna Donis PA-C LAB BLOOD ORDERABL ES Performing Organization Address [facility]/[place] [address], [place] [address] * POCT Glucose, Fingerstick (10/31/2024 2:18 AM EST) POC Glucose 88 65 - 99 mg/dL 10/31/2024 2:20 AM EST Blood specimen / Unknown 10/31/2024 2:18 AM EST 10/31/2024 2:20 AM EST Fuad Winter MD POINT OF CARE TEST ORDERABLES Performing Organization Address City/[facility]/ZIP Co de Phone Number [facility] See Below * (ABNORMAL) POCT [...] OF CARE TEST ORDERABLES Performing Organization Address [facility] LAB See Below * POCT Glucose, Fingerstick (10/30/2024 2:00 PM EST) POC Glucose 99 65 - 99 mg/dL 10/30/2024 2:04 PM EST Blood specimen / Unknown 10/30/2024 2:00 PM EST 10/30/2024 2:04 PM EST Fuad Winter MD POINT OF CARE TEST ORDERABLES Performing Organization Address [facility] LAB See Below * POCT Glucose, Fingerstick (10/30/2024 12:35 PM EST) POC Glucose 99 65 - 99 mg/dL 10/30/2024 12:36 PM EST Blood specimen / Unknown 10/30/2024 12:35 PM EST 10/30/2024 12:36 PM EST Fuad Winter MD POINT OF CARE TEST ORDERABLES Performing Organization Address [facility] LAB See Below * POCT Glucose, Fingerstick (10/30/2024 8:43 AM EST) POC Glucose 95 65 - 99 mg/dL 10/30/2024 8:44 AM EST Blood specimen / Unknown 10/30/2024 8:43 AM EST 10/30/2024 8:44 AM EST Fuad Winter MD POINT OF CARE TEST ORDERABLES Performing Organization Address [facility] LAB See Below * Heparin Assay (Anti [...] LAB BLOOD ORDERAB LES Performing Organization Address [facility] [place] [address], [place] [address] * (ABNORMAL) Phosphorus (Early AM) (10/30/2024 7:09 AM EST) Phosphorus 5.1(H) 2.7 - 4.5 mg/dL 10/30/2024 8:47 AM EST [facility] Blood (Plasma/Serum) 10/30/2024 7:09 AM EST 10/30/2024 7:54 AM EST Jonna Donis PA-C LAB BLOOD ORDERABL ES Performing Organization Address [facility] [place] [address], [place] [address] * MAGNESIUM (10/30/2024 7:09 AM EST) Magnesium 1.7 1.6 - 2.7 mg/dL 10/30/2024 8:47 AM EST [facility] Blood (Plasma/Serum) 10/30/2024 7:09 AM EST 10/30/2024 7:54 AM EST Jonna Donis PA-C LAB BLOOD ORDERABL ES Performing Organization Address [facility] [place] [address], [place] [address] * (ABNORMAL) COMPLETE BLOOD COUNT, WITHOUT DIFFERENTIAL (10/30/2024 7:09 AM EST) White Blood Cell Count 9.3 4.0 - 11.0 Thou/uL 10/30/2024 8:20 AM EST [facility] Platelet Count 304 150 - 450 Thou/uL 10/30/2024 8:20 AM [facility] Hemoglobin 9.3(L) 13.0 - 17.7 g/dL 10/30/2024 8:20 AM [facility] Hematocrit 30.3(L) 39.0 - 54.0 % 10/30/2024 8:20 AM [facility] Red Blood Cell Count 2.99(L) 4.50 - 6.20 Mil/uL 10/30/2024 8:20 AM [facility] MCV 101(H) 80 - 100 fL 10/30/2024 8:20 AM [facility] MCH 31.1(H) 27.0 - 31.0 pg 10/30/2024 8:20 AM [facility] MCHC 30.7 30.0 - 36.0 g/dL 10/30/2024 8:20 AM [facility] RDW 16.8(H) 11.5 - 14.5 % 10/30/2024 8:20 AM [facility] MPV 11.1 7.5 - 12.5 fL 10/30/2024 8:20 AM [facility] Blood Blood specimen / Unknown 10/30/2024 7:09 AM EST 10/30/2024 7:54 AM EST Jonna Donis PA-C [place] [address], [place] [address] * (ABNORMAL) BASIC METABOLIC PANEL (10/30/2024 7:09 AM EST) Glucose 80 65 - 99 mg/dL 10/30/2024 8:47 AM [facility] Comment:Fasting: <100 mg/dL, Non-Fasting: <200 mg/dL (ADA 2005) Blood Urea Nitrogen (BUN) 40(H) 8 - 21 mg/dL 10/30/2024 8:47 AM [facility] Creatinine 4.3(H) 0.5 - 1.3 mg/dL 10/30/2024 8:47 AM [facility] eGFR 13(L) >59 10/30/2024 8:47 AM [facility] Comment:CKD-EPI (2020) in mL /min/1.73 sq meters. Sodium 142 136 - 145 mmol/L 10/30/2024 8:47 AM [facility] Potassium 4.5 3.4 - 5.3 mmol/L 10/30/2024 8:47 AM [facility] Chloride 101 98 - 107 mmol/L 10/30/2024 8:47 AM [facility] CO2 27 22 - 33 mmol/L 10/30/2024 8:47 AM [facility] Anion Gap 14 7 - 17 10/30/2024 8:47 AM [facility] Calcium 9.2 8.7 - 10.5 mg/dL 10/30/2024 8:47 AM [facility] BUN/Creatinine Ratio 9(L) 10.0 - 25.0 Ratio 10/30/2024 8:47 AM [facility] Blood (Plasma/Serum) 10/30/2024 7:09 AM EST 10/30/2024 7:54 AM EST Jonna Donis PA-C [place] [address], [place] [address] * POCT Glucose, Fingerstick (10/30/2024 6:47 AM [...] OF CARE TEST ORDERABLES Performing Organization Address [facility] LAB See Below * (ABNORMAL) POCT Glucose, Fingerstick (10/29/2024 9:16 PM EST) POC Glucose 138(H) 65 - 99 mg/dL 10/29/2024 9:16 PM EST Blood specimen / Unknown 10/29/2024 9:16 PM EST 10/29/2024 9:17 PM EST Fuad Winter MD POINT OF CARE TEST ORDERABLES Performing Organization Address [facility] LAB See Below * (ABNORMAL) POCT Glucose, Fingerstick (10/29/2024 4:32 PM EST) POC Glucose 187(H) 65 - 99 mg/dL 10/29/2024 4:33 PM EST Blood specimen / Unknown 10/29/2024 4:32 PM EST 10/29/2024 4:33 PM EST Fuad Winter MD POINT OF CARE TEST ORDERABLES Performing Organization Address [facility] LAB See Below * (ABNORMAL) POCT Glucose, Fingerstick (10/29/2024 12:54 PM EST) POC Glucose 162(H) 65 - 99 mg/dL 10/29/2024 12:55 PM EST Blood specimen / Unknown 10/29/2024 12:54 PM EST 10/29/2024 12:55 PM EST Fuad Winter MD POINT OF CARE TEST ORDERABLES Performing Organization Address [facility] LAB See Below * (ABNORMAL) POCT Glucose, Fingerstick (10/29/2024 7:51 AM EST) POC Glucose 107(H) 65 - 99 mg/dL 10/29/2024 7:53 AM EST Blood specimen / Unknown 10/29/2024 7:51 AM EST 10/29/2024 7:52 AM EST Fuad Winter MD POINT OF CARE TEST ORDERABLES Performing Organization Address [facility] de Phone Number HOSPITAL LAB See Below * (ABNORMAL) proBNP, N-terminal (10/29/2024 7:20 AM EST) Pathologist [facility] [place] proBNP, N-terminal 47,866(H) <450 pg/mL 10/29/2024 12:12 PM EST [facility] Plasma specimen / Unknown 10/29/2024 7:20 AM EST 10/29/2024 8:04 AM EST Madhav Ryan MD LAB BLOOD ORDERABLES Performing Organization Address [facility] Phone Number [facility] [address] [place] [address], [place] [address] * Heparin Assay (Anti Xa) (10/29/2024 7:20 AM EST) [facility] [address] Anti Xa 0.41 IU/mL 10/29/2024 8:28 AM [...] LAB BLOOD ORDERAB LES Performing Organization Address [facility]/State/[facility] [place] [address], [place] [address] * (ABNORMAL) Phosphorus (Early AM) (10/29/2024 7:20 AM EST) Phosphorus 4.9(H) 2.7 - 4.5 mg/dL 10/29/2024 8:40 AM EST [facility] Blood (Plasma/Serum) 10/29/2024 7:20 AM EST 10/29/2024 8:04 AM EST Jonna Donis PA-C LAB BLOOD ORDERABL ES Performing Organization Address City/[facility]/[place] [address], [place] [address] * MAGNESIUM (10/29/2024 7:20 AM EST) Magnesium 1.7 1.6 - 2.7 mg/dL 10/29/2024 8:40 AM [facility] Blood (Plasma/Serum) 10/29/2024 7:20 AM EST 10/29/2024 8:04 AM EST Jonna Donis PA-C LAB BLOOD ORDERABL ES Performing Organization Address [facility] [place] [address], [place] [address] * (ABNORMAL) COMPLETE BLOOD COUNT, WITHOUT DIFFERENTIAL (10/29/2024 7:20 AM EST) White Blood Cell Count 8.5 4.0 - 11.0 Thou/uL 10/29/2024 8:23 AM [facility] Platelet Count 300 150 - 450 Thou/uL 10/29/2024 8:23 AM [facility] Hemoglobin 8.7(L) 13.0 - 17.7 g/dL 10/29/2024 8:23 AM [facility] Hematocrit 29.6(L) 39.0 - 54.0 % 10/29/2024 8:23 AM [facility] Red Blood Cell Count 2.92(L) 4.50 - 6.20 Mil/uL 10/29/2024 8:23 AM [facility] MCV 101(H) 80 - 100 fL 10/29/2024 8:23 AM [facility] MCH 29.8 27.0 - 31.0 pg 10/29/2024 8:23 AM [facility] MCHC 29.4(L) 30.0 - 36.0 g/dL 10/29/2024 8:23 AM [facility] RDW 17.2(H) 11.5 - 14.5 % 10/29/2024 8:23 AM [facility] MPV 10.9 7.5 - 12.5 fL 10/29/2024 8:23 AM [facility] Blood Blood specimen / Unknown 10/29/2024 7:20 AM EST 10/29/2024 8:04 AM EST Jonna Donis PA-C [place] [address], [place] [address] * (ABNORMAL) BASIC METABOLIC PANEL (10/29/2024 7:20 AM EST) Glucose 91 65 - 99 mg/dL 10/29/2024 8:40 AM [facility] Comment:Fasting: <100 mg/dL, Non-Fasting: <200 mg/dL (ADA 2005) Blood Urea Nitrogen (BUN) 44(H) 8 - 21 mg/dL 10/29/2024 8:40 AM [facility] Creatinine 4.3(H) 0.5 - 1.3 mg/dL 10/29/2024 8:40 AM [facility] eGFR 13(L) >59 10/29/2024 8:40 AM [facility] Comment:CKD-EPI (2020) in mL /min/1.73 sq meters. Sodium 142 136 - 145 mmol/L 10/29/2024 8:40 AM [facility] Potassium 4.0 3.4 - 5.3 mmol/L 10/29/2024 8:40 AM [facility] Chloride 103 98 - 107 mmol/L 10/29/2024 8:40 AM [facility] CO2 26 22 - 33 mmol/L 10/29/2024 8:40 AM [facility] Anion Gap 13 7 - 17 10/29/2024 8:40 AM [facility] Calcium 8.8 8.7 - 10.5 mg/dL 10/29/2024 8:40 AM [facility] BUN/Creatinine Ratio 10 10.0 - 25.0 Ratio 10/29/2024 8:40 AM EST [facility] Blood (Plasma/Serum) 10/29/2024 7:20 AM EST 10/29/2024 8:04 AM EST Jonna Donis PA-C LAB BLOOD ORDERABL ES [address] [address], [address] [address] * POCT Glucose, Fingerstick (10/29/2024 2:07 AM EST) POC Glucose 99 65 - 99 mg/dL 10/29/2024 2:07 AM EST Blood specimen / Unknown 10/29/2024 2:07 AM EST 10/29/2024 2:08 AM EST Fuad Winter MD POINT OF CARE TEST ORDERABLES Performing Organization Address [facility] Co de Phone Number [facility] LAB See Below * (ABNORMAL) POCT Glucose, Fingerstick (10/28/2024 9:30 PM EST) POC Glucose 219(H) 65 - 99 mg/dL 10/28/2024 9:31 PM EST Blood specimen / Unknown 10/28/2024 9:30 PM EST 10/28/2024 9:31 PM EST Fuad Winter MD POINT OF CARE TEST ORDERABLES [facility] LAB See Below * (ABNORMAL) POCT [...] 2.7 - 4.5 mg/dL 10/28/2024 4:54 PM [facility] Blood (Plasma/Serum) 10/28/2024 3:38 PM EST 10/28/2024 4:29 PM EST Madhav Ryan MD [place] [address], [place] [address] * Magnesium (STAT) (10/28/2024 3:38 PM EST) Pathologist [facility] [place] Magnesium 1.8 1.6 - 2.7 mg/dL 10/28/2024 4:54 PM [facility] Blood (Plasma/Serum) 10/28/2024 3:38 PM EST 10/28/2024 4:29 PM EST Madhav Ryan MD [place] [address], [place] [address] * (ABNORMAL) Basic Metabolic Panel (STAT) (10/28/2024 3:38 PM EST) Pathologist [facility] [place] Glucose 208(H) 65 - 99 mg/dL 10/28/2024 4:54 PM [facility] Comment:Fasting: <100 mg/dL, Non-Fasting: <200 mg/dL (ADA 2004) Blood Urea Nitrogen (BUN) 48(H) 8 - 21 mg/dL 10/28/2024 4:54 PM [facility] Creatinine 4.3(H) 0.5 - 1.3 mg/dL 10/28/2024 4:54 PM [facility] eGFR 13(L) >59 10/28/2024 4:54 PM [facility] Comment:CKD-EPI (2020) in mL /min/1.73 sq meters. Sodium 143 136 - 145 mmol/L 10/28/2024 4:54 PM [facility] Potassium 4.7 3.4 - 5.3 mmol/L 10/28/2024 4:54 PM [facility] Chloride 105 98 - 107 mmol/L 10/28/2024 4:54 PM [facility] CO2 25 22 - 33 mmol/L 10/28/2024 4:54 PM [facility] Anion Gap 13 7 - 17 10/28/2024 4:54 PM [facility] Calcium 8.9 8.7 - 10.5 mg/dL 10/28/2024 4:54 PM [facility] BUN/Creatinine Ratio 11 10.0 - 25.0 Ratio 10/28/2024 4:54 PM [facility] Blood (Plasma/Serum) 10/28/2024 3:38 PM EST 10/28/2024 4:29 PM EST Madhav Ryan MD [place] [address], [place] [address] * (ABNORMAL) POCT Glucose, Fingerstick (10/28/2024 12:32 [...] LAB BLOOD ORDERAB LES Performing Organization Address [facility] [place] [address], [place] [address] * (ABNORMAL) Phosphorus (Early AM) (10/28/2024 7:00 AM EST) Phosphorus 4.6(H) 2.7 - 4.5 mg/dL 10/28/2024 8:08 AM EST [facility] Blood (Plasma/Serum) 10/28/2024 7:00 AM EST 10/28/2024 7:37 AM EST Jonna Donis PA-C LAB BLOOD ORDERABL ES Performing Organization Address [facility] Co de Phone Number [address] [address], [address] [address] * MAGNESIUM (10/28/2024 7:00 AM EST) Magnesium 1.8 1.6 - 2.7 mg/dL 10/28/2024 8:08 AM EST [facility] Blood (Plasma/Serum) 10/28/2024 7:00 AM EST 10/28/2024 7:37 AM EST Jonna Donis PA-C LAB BLOOD ORDERABL ES Performing Organization Address [facility] [place] [address], [address] [address] * (ABNORMAL) COMPLETE BLOOD COUNT, WITHOUT DIFFERENTIAL (10/28/2024 7:00 AM EST) [facility] [address] White Blood Cell Count 9.2 4.0 - 11.0 Thou/uL 10/28/2024 7:46 AM [facility] Platelet Count 326 150 - 450 Thou/uL 10/28/2024 7:46 AM [facility] Hemoglobin 8.7(L) 13.0 - 17.7 g/dL 10/28/2024 7:46 AM [facility] Hematocrit 29.1(L) 39.0 - 54.0 % 10/28/2024 7:46 AM [facility] Red Blood Cell Count 2.85(L) 4.50 - 6.20 Mil/uL 10/28/2024 7:46 AM [facility] MCV 102(H) 80 - 100 fL 10/28/2024 7:46 AM [facility] MCH 30.5 27.0 - 31.0 pg 10/28/2024 7:46 AM [facility] MCHC 29.9(L) 30.0 - 36.0 g/dL 10/28/2024 7:46 AM [facility] RDW 17.2(H) 11.5 - 14.5 % 10/28/2024 7:46 AM [facility] MPV 11.3 7.5 - 12.5 fL 10/28/2024 7:46 AM [facility] Blood Blood specimen / Unknown 10/28/2024 7:00 AM EST 10/28/2024 7:37 AM EST Jonna Donis PA-C LAB BLOOD ORDERABL ES [address] [address], [address] [address] * (ABNORMAL) BASIC METABOLIC PANEL (10/28/2024 7:00 AM EST) [facility] [address] Glucose 84 65 - 99 mg/dL 10/28/2024 8:08 AM [facility] Comment:Fasting: <100 mg/dL, Non-Fasting: <200 mg/dL (ADA 2005) Blood Urea Nitrogen (BUN) 50(H) 8 - 21 mg/dL 10/28/2024 8:08 AM [facility] Creatinine 4.4(H) 0.5 - 1.3 mg/dL 10/28/2024 8:08 AM [facility] eGFR 13(L) >59 10/28/2024 8:08 AM [facility] Comment:CKD-EPI (2020) in mL /min/1.73 sq meters. Sodium 142 136 - 145 mmol/L 10/28/2024 8:08 AM [facility] Potassium 3.9 3.4 - 5.3 mmol/L 10/28/2024 8:08 AM [facility] Chloride 105 98 - 107 mmol/L 10/28/2024 8:08 AM [facility] CO2 25 22 - 33 mmol/L 10/28/2024 8:08 AM [facility] Anion Gap 12 7 - 17 10/28/2024 8:08 AM [facility] Calcium 8.6(L) 8.7 - 10.5 mg/dL 10/28/2024 8:08 AM [facility] BUN/Creatinine Ratio 11 10.0 - 25.0 Ratio 10/28/2024 8:08 AM [facility] Blood (Plasma/Serum) 10/28/2024 7:00 AM EST 10/28/2024 7:37 AM EST Jonna Donis PA-C [place] [address], [place] [address] * (ABNORMAL) POCT Glucose, Fingerstick (10/28/2024 4:20 AM EST) POC Glucose 109(H) 65 - 99 mg/dL 10/28/2024 4:21 AM EST Blood specimen / Unknown 10/28/2024 4:20 AM EST 10/28/2024 4:21 AM EST Fuad Winter MD POINT OF CARE TEST ORDERABLES Performing Organization Address [facility] Phone [facility] LAB See Below * (ABNORMAL) POCT Glucose, Fingerstick (10/28/2024 12:29 AM EST) POC Glucose 129(H) 65 - 99 mg/dL 10/28/2024 12:30 AM EST Blood specimen / Unknown 10/28/2024 12:29 AM EST 10/28/2024 12:30 AM EST Fuad Winter MD POINT OF CARE TEST ORDERABLES Performing Organization Address [facility] Phone Number [facility] LAB See Below * (ABNORMAL) POCT Glucose, Fingerstick (10/27/2024 8:06 PM EST) POC Glucose 203(H) 65 - 99 mg/dL 10/27/2024 8:10 PM EST Blood specimen / Unknown 10/27/2024 8:06 PM EST 10/27/2024 8:10 PM EST Fuad Winter MD POINT OF CARE TEST ORDERABLES Performing Organization Address [facility] Phone [facility] LAB See Below * (ABNORMAL) POCT Glucose, Fingerstick (10/27/2024 4:20 PM EST) POC Glucose 224(H) 65 - 99 mg/dL 10/27/2024 4:28 PM EST Blood specimen / Unknown 10/27/2024 4:20 PM EST 10/27/2024 4:28 PM EST Fuad Winter MD POINT OF CARE TEST ORDERABLES Performing Organization Address [facility] Phone Number [facility] LAB See Below * (ABNORMAL) Basic Metabolic Panel (Routine) (10/27/2024 3:26 PM EST) Glucose 179(H) 65 - 99 mg/dL 10/27/2024 4:11 PM EST [facility] Comment:Fasting: <100 mg/dL, Non-Fasting: <200 mg/dL (ADA 2005) Blood Urea Nitrogen (BUN) 53(H) 8 - 21 mg/dL 10/27/2024 4:11 PM [facility] Creatinine 4.2(H) 0.5 - 1.3 mg/dL 10/27/2024 4:11 PM [facility] eGFR 14(L) >59 10/27/2024 4:11 PM [facility] Comment:CKD-EPI (2020) in mL /min/1.73 sq meters. Sodium 143 136 - 145 mmol/L 10/27/2024 4:11 PM [facility] Potassium 5.2 3.4 - 5.3 mmol/L 10/27/2024 4:11 PM [facility] Chloride 105 98 - 107 mmol/L 10/27/2024 4:11 PM [facility] CO2 25 22 - 33 mmol/L 10/27/2024 4:11 PM [facility] Anion Gap 13 7 - 17 10/27/2024 4:11 PM [facility] Calcium 8.6(L) 8.7 - 10.5 mg/dL 10/27/2024 4:11 PM [facility] BUN/Creatinine Ratio 13 10.0 - 25.0 Ratio 10/27/2024 4:11 PM [facility] Blood (Plasma/Serum) 10/27/2024 3:26 PM EST 10/27/2024 3:45 PM EST Madhav Ryan MD [place] [address], [place] [address] * (ABNORMAL) POCT Glucose, Fingerstick (10/27/2024 1:13 [...] 12 lead (STAT) (10/27/2024 7:41 AM EST) Ventricular rate 60 BPM EKG [facility] Atrial rate 60 BPM EKG [facility] P-R interval 150 ms EKG [facility] QRS duration 84 ms EKG [facility] Q-T interval 488 ms EKG [facility] QTC calculation (Bazett) 488 ms EKG [facility] P axis 45 degrees EKG [facility] R axis 13 degrees EKG [facility] T axis 199 degrees EKG [facility] 10/27/2024 7:41 AM EST Narrative EKG [...] LAB BLOOD ORDERAB LES Performing Organization Address [facility] [place] [address], [place] [address] * (ABNORMAL) Phosphorus (AM) (10/27/2024 7:29 AM EST) Phosphorus 4.6(H) 2.7 - 4.5 mg/dL 10/27/2024 8:48 AM EST [facility] Blood (Plasma/Serum) 10/27/2024 7:29 AM EST 10/27/2024 8:24 AM EST Neymar Mcfarland MD LAB BLOOD ORDERAB LES Performing Organization Address [facility] [place] [address], [address] [address] * Magnesium (AM) (10/27/2024 7:29 AM EST) Magnesium 1.8 1.6 - 2.7 mg/dL 10/27/2024 8:48 AM EST [facility] Blood (Plasma/Serum) 10/27/2024 7:29 AM EST 10/27/2024 8:24 AM EST Neymar Mcfarland MD LAB BLOOD ORDERAB LES Performing Organization Address [facility] [place] [address], [place] [address] * (ABNORMAL) Basic Metabolic Panel (AM) (10/27/2024 7:29 AM EST) Glucose 63(L) 65 - 99 mg/dL 10/27/2024 8:48 AM [facility] Comment:Fasting: <100 mg/dL, Non-Fasting: <200 mg/dL (ADA 2004) Blood Urea Nitrogen (BUN) 59(H) 8 - 21 mg/dL 10/27/2024 8:48 AM [facility] Creatinine 4.3(H) 0.5 - 1.3 mg/dL 10/27/2024 8:48 AM [facility] eGFR 13(L) >59 10/27/2024 8:48 AM [facility] Comment:CKD-EPI (2020) in mL /min/1.73 sq meters. Sodium 146(H) 136 - 145 mmol/L 10/27/2024 8:48 AM [facility] Potassium 3.7 3.4 - 5.3 mmol/L 10/27/2024 8:48 AM [facility] Chloride 107 98 - 107 mmol/L 10/27/2024 8:48 AM [facility] CO2 24 22 - 33 mmol/L 10/27/2024 8:48 AM [facility] Anion Gap 15 7 - 17 10/27/2024 8:48 AM [facility] Calcium 8.4(L) 8.7 - 10.5 mg/dL 10/27/2024 8:48 AM [facility] BUN/Creatinine Ratio 14 10.0 - 25.0 Ratio 10/27/2024 8:48 AM [facility] Blood (Plasma/Serum) 10/27/2024 7:29 AM EST 10/27/2024 8:24 AM EST Neymar Mcfarland MD [place] [address], [place] [address] * (ABNORMAL) Complete Blood Count WITHOUT Differential - in AM (10/27/2024 7:29 AM EST) [facility] [address] White Blood Cell Count 9.2 4.0 - 11.0 Thou/uL 10/27/2024 8:38 AM [facility] Platelet Count 321 150 - 450 Thou/uL 10/27/2024 8:38 AM [facility] Hemoglobin 9.0(L) 13.0 - 17.7 g/dL 10/27/2024 8:38 AM [facility] Hematocrit 29.8(L) 39.0 - 54.0 % 10/27/2024 8:38 AM [facility] Red Blood Cell Count 2.95(L) 4.50 - 6.20 Mil/uL 10/27/2024 8:38 AM [facility] MCV 101(H) 80 - 100 fL 10/27/2024 8:38 AM [facility] MCH 30.5 27.0 - 31.0 pg 10/27/2024 8:38 AM [facility] MCHC 30.2 30.0 - 36.0 g/dL 10/27/2024 8:38 AM [facility] RDW 16.9(H) 11.5 - 14.5 % 10/27/2024 8:38 AM [facility] MPV 11.6 7.5 - 12.5 fL 10/27/2024 8:38 AM [facility] Blood Blood specimen / Unknown 10/27/2024 7:29 AM EST 10/27/2024 8:24 AM EST Neymar Mcfarland MD LAB BLOOD ORDERAB LES [facility] Organization Address City/State/[facility] [place] [address], [place] [address] * POCT Glucose, Fingerstick (10/27/2024 4:02 AM EST) [facility] [address] POC Glucose 90 65 - 99 mg/dL 10/27/2024 4:03 AM EST Blood specimen / Unknown 10/27/2024 4:02 AM EST 10/27/2024 4:03 AM EST Fuad Winter MD POINT OF CARE TEST ORDERABLES Performing Organization Address [facility] Phone Number HOSPITAL LAB See Below * (ABNORMAL) POCT Glucose, Fingerstick (10/27/2024 1:20 AM EST) POC Glucose 155(H) 65 - 99 mg/dL 10/27/2024 1:25 AM EST Blood specimen / Unknown 10/27/2024 1:20 AM EST 10/27/2024 1:25 AM EST Fuad Winter MD POINT OF CARE TEST ORDERABLES Performing Organization Address [facility] Phone Number HOSPITAL LAB See Below * POCT Glucose, Fingerstick (10/27/2024 12:29 AM EST) POC Glucose 74 65 - 99 mg/dL 10/27/2024 12:30 AM EST Blood specimen / Unknown 10/27/2024 12:29 AM EST 10/27/2024 12:30 AM EST Fuad Winter MD POINT OF CARE TEST ORDERABLES Performing Organization Address [facility] Phone Number [facility] LAB See Below * (ABNORMAL) POCT Glucose, Fingerstick (10/26/2024 8:11 PM EST) POC Glucose 120(H) 65 - 99 mg/dL 10/26/2024 8:12 PM EST Blood specimen / Unknown 10/26/2024 8:11 PM EST 10/26/2024 8:12 PM EST Fuad Winter MD POINT OF CARE TEST ORDERABLES Performing Organization Address [facility] Co nm Phone Number HOSPITAL LAB See Below * [...] Troponin T (Once) (10/26/2024 10:49 AM EST) High Sensitivity Troponin T 2,071(HH) <23 ng/L 10/26/2024 11:53 AM EST [facility] Comment:Recurring Critical R esult. Previously phoned. Delta (Change) 532(H) <3 10/26/2024 11:53 AM EST [facility] Comment:Decreased Blood (Plasma/Serum) 10/26/2024 10:49 AM EST 10/26/2024 11:11 AM EST Neymar Mcfarland MD LAB BLOOD ORDERAB LES Performing Organization Address [facility] [place] [address], [place] [address] * POCT Glucose, Fingerstick (10/26/2024 8:48 AM EST) POC Glucose 90 65 - 99 mg/dL 10/26/2024 8:49 AM EST Blood specimen / Unknown 10/26/2024 8:48 AM EST 10/26/2024 8:49 AM EST Fuad Winter MD POINT OF CARE TEST ORDERABLES HOSPITAL LAB See Below * Heparin Assay (Anti Xa) (10/26/2024 6:18 AM EST) [facility] Signature Anti Xa 0.49 IU/mL 10/26/2024 7:38 AM [...] LAB BLOOD ORDERAB LES Performing Organization Address City/[facility] [place] [address], [place] [address] * Phosphorus (AM) (10/26/2024 6:18 AM EST) Phosphorus 4.2 2.7 - 4.5 mg/dL 10/26/2024 7:45 AM EST [facility] Blood (Plasma/Serum) 10/26/2024 6:18 AM EST 10/26/2024 7:22 AM EST Neymar Mcfarland MD LAB BLOOD ORDERAB LES Performing Organization Address [facility] [place] [address], [place] [address] * Magnesium (AM) (10/26/2024 6:18 AM EST) Magnesium 1.9 1.6 - 2.7 mg/dL 10/26/2024 7:45 AM EST [facility] Blood (Plasma/Serum) 10/26/2024 6:18 AM EST 10/26/2024 7:22 AM EST Neymar Mcfarland MD LAB BLOOD ORDERAB LES Performing Organization Address [facility] [place] [address], [place] [address] * (ABNORMAL) Basic Metabolic Panel (AM) (10/26/2024 6:18 AM EST) Glucose 79 65 - 99 mg/dL 10/26/2024 7:45 AM [facility] Comment:Fasting: <100 mg/dL, Non-Fasting: <200 mg/dL (ADA 2004) Blood Urea Nitrogen (BUN) 61(H) 8 - 21 mg/dL 10/26/2024 7:45 AM [facility] Creatinine 4.0(H) 0.5 - 1.3 mg/dL 10/26/2024 7:45 AM [facility] eGFR 14(L) >59 10/26/2024 7:45 AM [facility] Comment:CKD-EPI (2020) in mL /min/1.73 sq meters. Sodium 145 136 - 145 mmol/L 10/26/2024 7:45 AM [facility] Potassium 4.2 3.4 - 5.3 mmol/L 10/26/2024 7:45 AM [facility] Chloride 107 98 - 107 mmol/L 10/26/2024 7:45 [facility] CO2 23 22 - 33 mmol/L 10/26/2024 7:45 [facility] Anion Gap 15 7 - 17 10/26/2024 7:45 [facility] Calcium 7.9(L) 8.7 - 10.5 mg/dL 10/26/2024 7:45 [facility] BUN/Creatinine Ratio 15 10.0 - 25.0 Ratio 10/26/2024 7:45 [facility] Blood (Plasma/Serum) 10/26/2024 6:18 AM EST 10/26/2024 7:22 AM EST Neymar Mcfarland MD [place] [address], [address] [id number] * (ABNORMAL) Complete Blood Count WITHOUT Differential - in AM (10/26/2024 6:18 AM EST) White Blood Cell Count 9.7 4.0 - 11.0 Thou/uL 10/26/2024 7:29 [facility] Platelet Count 328 150 - 450 Thou/uL 10/26/2024 7:29 [facility] Hemoglobin 8.6(L) 13.0 - 17.7 g/dL 10/26/2024 7:29 [facility] Hematocrit 27.9(L) 39.0 - 54.0 % 10/26/2024 7:29 [facility] Red Blood Cell Count 2.78(L) 4.50 - 6.20 Mil/uL 10/26/2024 7:29 [facility] MCV 100 80 - 100 fL 10/26/2024 7:29 [facility] MCH 30.9 27.0 - 31.0 pg 10/26/2024 7:29 [facility] MCHC 30.8 30.0 - 36.0 g/dL 10/26/2024 7:29 [facility] RDW 16.8(H) 11.5 - 14.5 % 10/26/2024 7:29 [facility] MPV 11.6 7.5 - 12.5 fL 10/26/2024 7:29 [facility] Blood Blood specimen / Unknown 10/26/2024 6:18 AM EST 10/26/2024 7:22 AM EST Neymar Mcfarland MD [place] [address], [place] [address] * (ABNORMAL) POCT Glucose, Fingerstick (10/26/2024 3:58 [...] Assay (Anti Xa) (10/25/2024 11:35 PM EST) [facility] [address] Anti Xa 0.44 IU/mL 10/26/2024 12:23 AM [...] LAB BLOOD ORDERAB LES Performing Organization Address [facility] [place] [address], [place], [place] [address] * (ABNORMAL) POCT Glucose, Fingerstick (10/25/2024 8:20 PM EST) [facility] [address] POC Glucose 222(H) 65 - 99 mg/dL [...] 5:03 PM EST 10/25/2024 5:24 PM EST Neymar Mcfarland MD LAB BLOOD ORDERAB LES Performing Organization Address [facility] [place] [address], [place] [address] * (ABNORMAL) High Sensitivity Troponin T (now and in 3 hours) (10/25/2024 5:03 PM EST) High Sensitivity Troponin T 2,468(HH) <23 ng/L 10/25/2024 6:02 PM [facility] Comment:Recurring Critical R esult. Previously phoned. Delta (Change) 135(H) <3 10/25/2024 6:02 PM [facility] Comment:Decreased Blood (Plasma/Serum) 10/25/2024 5:03 PM EST 10/25/2024 5:25 PM EST Neymar Mcfarland MD LAB BLOOD ORDERAB LES Performing Organization Address [facility] [place] [address], [place] [address] * (ABNORMAL) High Sensitivity Troponin T (now and in 3 hours) (10/25/2024 3:38 PM EST) High Sensitivity Troponin T 2,413(HH) <23 ng/L 10/25/2024 4:21 PM [facility] Comment:Recurring Critical R esult. Previously phoned. Delta (Change) 190(H) <3 10/25/2024 4:21 PM [facility] Comment:Decreased Blood (Plasma/Serum) 10/25/2024 3:38 PM EST 10/25/2024 3:48 PM EST Neymar Mcfarland MD LAB BLOOD ORDERAB LES Performing Organization Address [facility] [place] [address], [place] [address] * (ABNORMAL) High Sensitivity Troponin T (10/25/2024 12:47 PM EST) High Sensitivity Troponin T 2,394(HH) <23 ng/L 10/25/2024 2:04 PM [facility] Comment:Recurring Critical R esult. Previously phoned. Delta (Change) 209(H) <3 10/25/2024 2:04 PM [facility] Comment:Decreased Plasma/Serum 10/25/2024 12:4 7 PM EST 10/25/2024 1:34 PM EST Bryant Gracia PA-C LAB BLOOD ORDERABLES Performing Organization Address [facility] [place] [address], [place] [address] * Heparin Assay (Anti Xa) (10/25/2024 12:47 PM EST) Anti Xa 0.47 IU/mL 10/25/2024 2:06 PM [facility] Comment: (NOTE) Heparin Thromboembolic/Standard/Full Dose Protocol: [...] LAB BLOOD ORDERAB LES Performing Organization Address City/State/[facility] [place] [address], [place] [address] * (ABNORMAL) POCT Glucose, Fingerstick (10/25/2024 12:33 [...] [facility] Atrial rate 76 BPM EKG [facility] P-R interval 152 ms EKG [facility] QRS duration 82 ms EKG [facility] Q-T interval 450 ms EKG [facility] QTC calculation (Bazett) 506 ms EKG [facility] P axis 67 degrees EKG [facility] R axis 69 degrees EKG [facility] T axis 237 degrees EKG [facility] 10/25/2024 10:4 4 AM EST Narrative EKG [facility] - 10/25/2024 8:09 PM EST Normal sinus rhythm ST & T wave abnormality, consider lateral ischemia Prolonged QT Abnormal ECG When compared with ECG of 23-Oct-2024 17:43, Nonspecific T wave abnormality, worse in Inferior leads T wave inversion less evident in Lateral leads Confirmed by DO Ladd Kyla ([id number]) on 10/25/2024 8:09:06 PM Procedure Note Jessica Ladd DO - 10/25/[address] & T wave abnormality, consider lateral ischemia Prolonged QT Abnormal ECG When compared with ECG of 23-Oct-2024 17:43, Nonspecific T wave abnormality, worse in Inferior leads T wave inversion less evident in Lateral leads Confirmed by DO Ladd Kyla ([id number]) on 10/25/2024 8:09:06 PM Fuad Winter MD ECG ORDERABLE [facility] * (ABNORMAL) High Sensitivity Troponin T (10/25/2024 10:25 AM EST) High Sensitivity Troponin T 2,514(HH) <23 ng/L 10/25/2024 11:49 AM EST [facility] Comment:Recurring Critical R esult. Previously phoned. Delta (Change) 89(H) <3 10/25/2024 11:49 AM EST [facility] Comment:Decreased Plasma/Serum 10/25/2024 10:2 5 AM EST 10/25/2024 11:17 AM EST Bryant Gracia PA-C LAB BLOOD ORDERABLES [facility] [address] [place] [address], [address] [address] * (ABNORMAL) POCT Glucose, Fingerstick (10/25/2024 9:20 AM EST) [facility] [address] POC Glucose 129(H) 65 - 99 mg/dL 10/25/2024 9:21 AM EST Blood specimen / Unknown 10/25/2024 9:20 AM EST 10/25/2024 9:21 AM EST Fuad Winter MD POINT OF CARE TEST ORDERABLES HOSPITAL LAB See Below * CREATINE KINASE (CK) (10/25/2024 8:27 AM EST) [facility] [address] Creatine Kinase (CK) 76 24 - 204 U/L 10/25/2024 10:25 AM EST [facility] Plasma/Serum 10/25/2024 8:27 AM EST 10/25/2024 9:16 AM EST Neymar Mcfarland MD LAB BLOOD ORDERAB LES Performing Organization Address [facility] [place] [address], [place] [address] * (ABNORMAL) High Sensitivity Troponin T (10/25/2024 8:27 AM EST) [facility] [address] High Sensitivity Troponin T 2,603(HH) <23 ng/L 10/25/2024 10:25 AM EST [facility] Delta (Change) NO PREVIOUS RESULT <3 10/25/2024 10:25 AM EST [facility] Plasma/Serum 10/25/2024 8:27 AM EST 10/25/2024 9:16 AM EST Neymar Mcfarland MD LAB BLOOD ORDERAB LES Performing Organization Address [facility] [place] [address], [place] [address] * Phosphorus (AM) (10/25/2024 8:27 AM EST) Phosphorus 3.8 2.7 - 4.5 mg/dL 10/25/2024 10:25 AM [facility] Blood (Plasma/Serum) 10/25/2024 8:27 AM EST 10/25/2024 9:16 AM EST Neymar Mcfarland MD LAB BLOOD ORDERAB LES Performing Organization Address City/[facility]/[place] [address], [place] [address] * Magnesium (AM) (10/25/2024 8:27 AM EST) Magnesium 2.0 1.6 - 2.7 mg/dL 10/25/2024 10:25 AM [facility] Blood (Plasma/Serum) 10/25/2024 8:27 AM EST 10/25/2024 9:16 AM EST Neymar Mcfarland MD LAB BLOOD ORDERAB LES Performing Organization Address City/[facility] [place] [address], [place] [address] * (ABNORMAL) Basic Metabolic Panel (AM) (10/25/2024 8:27 AM EST) Glucose 123(H) 65 - 99 mg/dL 10/25/2024 10:25 AM [facility] Comment:Fasting: <100 mg/dL, Non-Fasting: <200 mg/dL (ADA 2004) Blood Urea Nitrogen (BUN) 64(H) 8 - 21 mg/dL 10/25/2024 10:25 AM [facility] Creatinine 3.9(H) 0.5 - 1.3 mg/dL 10/25/2024 10:25 AM [facility] eGFR 15(L) >59 10/25/2024 10:25 AM [facility] Comment:CKD-EPI (2020) in mL /min/1.73 sq meters. Sodium 141 136 - 145 mmol/L 10/25/2024 10:25 AM [facility] Potassium 4.6 3.4 - 5.3 mmol/L 10/25/2024 10:25 AM [facility] Chloride 104 98 - 107 mmol/L 10/25/2024 10:25 AM [facility] CO2 21(L) 22 - 33 mmol/L 10/25/2024 10:25 AM [facility] Anion Gap 16 7 - 17 10/25/2024 10:25 AM [facility] Calcium 7.8(L) 8.7 - 10.5 mg/dL 10/25/2024 10:25 AM [facility] BUN/Creatinine Ratio 16 10.0 - 25.0 Ratio 10/25/2024 10:25 AM [facility] Blood (Plasma/Serum) 10/25/2024 8:27 AM EST 10/25/2024 9:16 AM EST Neymar Mcfarland MD LAB BLOOD ORDERAB LES Performing Organization Address City/State/[facility] [place] [address], [place] [address] * (ABNORMAL) Complete Blood Count WITHOUT Differential - in AM (10/25/2024 8:27 AM EST) White Blood Cell Count 12.5(H) 4.0 - 11.0 Thou/uL 10/25/2024 9:39 AM [facility] Platelet Count 361 150 - 450 Thou/uL 10/25/2024 9:39 AM [facility] Hemoglobin 9.2(L) 13.0 - 17.7 g/dL 10/25/2024 9:39 AM [facility] Hematocrit 29.9(L) 39.0 - 54.0 % 10/25/2024 9:39 AM [facility] Red Blood Cell Count 3.01(L) 4.50 - 6.20 Mil/uL 10/25/2024 9:39 AM [facility] MCV 99 80 - 100 fL 10/25/2024 9:39 AM [facility] MCH 30.6 27.0 - 31.0 pg 10/25/2024 9:39 AM [facility] MCHC 30.8 30.0 - 36.0 g/dL 10/25/2024 9:39 AM [facility] RDW 16.7(H) 11.5 - 14.5 % 10/25/2024 9:39 AM [facility] MPV 11.3 7.5 - 12.5 fL 10/25/2024 9:39 AM [facility] Blood Blood specimen / Unknown 10/25/2024 8:27 AM EST 10/25/2024 9:16 AM EST Neymar Mcfarland MD LAB BLOOD ORDERAB LES Performing Organization Address City/State/[facility] Co de Phone Number [facility] [address] [place] [address], [facility] [address] [place] [address] * Heparin Assay (Anti Xa) (10/25/2024 5:21 AM EST) Anti Xa 0.51 IU/mL 10/25/2024 5:55 AM [facility] Comment: (NOTE) Heparin Thromboembolic/Standard/Full Dose Protocol: [...] LAB BLOOD ORDERAB LES Performing Organization Address [facility] [place] [address], [place] [address] * (ABNORMAL) POCT Glucose, Fingerstick (10/25/2024 5:15 AM EST) [facility] [address] POC Glucose 115(H) 65 - 99 mg/dL 10/25/2024 5:15 AM EST Blood specimen / Unknown 10/25/2024 5:15 AM EST 10/25/2024 5:16 AM EST Fuad Winter MD POINT OF CARE TEST ORDERABLES Performing Organization Address [facility] Co de Phone Number HOSPITAL LAB See Below * (ABNORMAL) POCT Glucose, Fingerstick (10/25/2024 1:03 AM EST) Pathologist [facility] [place] POC Glucose 125(H) 65 - 99 mg/dL 10/25/2024 1:03 AM EST Blood specimen / Unknown 10/25/2024 1:03 AM EST 10/25/2024 1:04 AM EST Fuad Winter MD POINT OF CARE TEST ORDERABLES HOSPITAL LAB See Below * Heparin Assay (Anti Xa) (10/24/2024 9:57 PM EST) Pathologist [facility] [place] Anti Xa 0.58 IU/mL 10/24/2024 10:50 PM [...] LAB BLOOD ORDERAB LES Performing Organization Address [facility] [place] [address], [place] [address] * (ABNORMAL) POCT Glucose, Fingerstick (10/24/2024 8:23 PM EST) Pathologist [facility] [place] POC Glucose 211(H) 65 - 99 mg/dL 10/24/2024 8:24 PM EST Blood specimen / Unknown 10/24/2024 8:23 PM EST 10/24/2024 8:24 PM EST Fuad Winter MD POINT OF CARE TEST ORDERABLES Performing Organization Address [facility] de Phone Number HOSPITAL LAB See Below [...] LAB BLOOD ORDERAB LES Performing Organization Address [facility] Co de Phone Number [address] [address], [facility] [address] [place] [address] * (ABNORMAL) POCT Glucose, Fingerstick (10/24/2024 4:07 PM EST) POC Glucose 152(H) 65 - 99 mg/dL 10/24/2024 4:09 PM EST Blood specimen / Unknown 10/24/2024 4:07 PM EST 10/24/2024 4:09 PM EST Fuad Winter MD POINT OF CARE TEST ORDERABLES Performing Organization Address [facility] Co de Phone Number HOSPITAL LAB See Below * (ABNORMAL) POCT Glucose, Fingerstick (10/24/2024 11:13 AM EST) POC Glucose 158(H) 65 - 99 mg/dL 10/24/2024 11:14 AM EST Blood specimen / Unknown 10/24/2024 11:13 AM EST 10/24/2024 11:14 AM EST Fuad Winter MD POINT OF CARE TEST ORDERABLES Performing Organization Address [facility] Phone Number HOSPITAL LAB See Below * XR Chest [...] POCT Glucose, Fingerstick (10/24/2024 8:39 AM EST) POC Glucose 159(H) 65 - 99 mg/dL 10/24/2024 9:03 AM EST Blood specimen / Unknown 10/24/2024 8:39 AM EST 10/24/2024 9:03 AM EST Fuad Winter MD POINT OF CARE TEST ORDERABLES Performing Organization Address City/[facility]/ZIP Co de Phone Number HOSPITAL LAB See Below * (ABNORMAL) B-Hydroxybutyrate (10/24/2024 7:11 AM EST) Pathologist [facility] [place] B-Hydroxybutyrate 2.36(H) <0.28 mmol/L 10/24/2024 10:30 AM [...] MD LAB BLOOD ORDERABLES Performing Organization Address [facility]/[place] [address], [place] [address] * Heparin Assay (Anti Xa) (10/24/2024 7:11 AM EST) [facility] [address] Anti Xa 0.17 IU/mL 10/24/2024 8:02 AM [...] MD LAB BLOOD ORDERABLES Performing Organization Address [facility]/[place] [address], [place] [address] * Phosphorus (AM) (10/24/2024 7:11 AM EST) Phosphorus 4.5 2.7 - 4.5 mg/dL 10/24/2024 8:15 AM EST [facility] Blood (Plasma/Serum) 10/24/2024 7:11 AM EST 10/24/2024 7:48 AM EST Neymar Mcfarland MD LAB BLOOD ORDERAB LES Performing Organization Address [facility]/[place] [address], [place] [address] * Magnesium (AM) (10/24/2024 7:11 AM EST) Magnesium 1.8 1.6 - 2.7 mg/dL 10/24/2024 8:15 AM [facility] Blood (Plasma/Serum) 10/24/2024 7:11 AM EST 10/24/2024 7:48 AM EST Neymar Mcfarland MD LAB BLOOD ORDERAB LES Performing Organization Address City/[facility] [place] [address], [place] [address] * (ABNORMAL) Basic Metabolic Panel (AM) (10/24/2024 7:11 AM EST) Glucose 149(H) 65 - 99 mg/dL 10/24/2024 8:15 AM [facility] Comment:Fasting: <100 mg/dL, Non-Fasting: <200 mg/dL (ADA 2005) Blood Urea Nitrogen (BUN) 68(H) 8 - 21 mg/dL 10/24/2024 8:15 AM [facility] Creatinine 4.0(H) 0.5 - 1.3 mg/dL 10/24/2024 8:15 AM [facility] eGFR 14(L) >59 10/24/2024 8:15 AM [facility] Comment:CKD-EPI (2020) in mL /min/1.73 sq meters. Sodium 143 136 - 145 mmol/L 10/24/2024 8:15 AM [facility] Potassium 4.9 3.4 - 5.3 mmol/L 10/24/2024 8:15 AM [facility] Chloride 105 98 - 107 mmol/L 10/24/2024 8:15 AM [facility] CO2 19(L) 22 - 33 mmol/L 10/24/2024 8:15 AM [facility] Anion Gap 19(H) 7 - 17 10/24/2024 8:15 AM [facility] Calcium 7.8(L) 8.7 - 10.5 mg/dL 10/24/2024 8:15 AM [facility] BUN/Creatinine Ratio 17 10.0 - 25.0 Ratio 10/24/2024 8:15 AM [facility] Blood (Plasma/Serum) 10/24/2024 7:11 AM EST 10/24/2024 7:48 AM EST Neymar Mcfarland MD LAB BLOOD ORDERAB LES Performing Organization Address City/State/[facility] [place] [address], [place] [address] * (ABNORMAL) Complete Blood Count WITHOUT Differential - in AM (10/24/2024 7:11 AM EST) White Blood Cell Count 12.4(H) 4.0 - 11.0 Thou/uL 10/24/2024 7:58 AM [facility] Platelet Count 360 150 - 450 Thou/uL 10/24/2024 7:58 AM [facility] Hemoglobin 9.3(L) 13.0 - 17.7 g/dL 10/24/2024 7:58 AM [facility] Hematocrit 30.1(L) 39.0 - 54.0 % 10/24/2024 7:58 AM [facility] Red Blood Cell Count 3.06(L) 4.50 - 6.20 Mil/uL 10/24/2024 7:58 AM [facility] MCV 98 80 - 100 fL 10/24/2024 7:58 AM [facility] MCH 30.4 27.0 - 31.0 pg 10/24/2024 7:58 AM [facility] MCHC 30.9 30.0 - 36.0 g/dL 10/24/2024 7:58 AM [facility] RDW 16.8(H) 11.5 - 14.5 % 10/24/2024 7:58 AM [facility] MPV 11.3 7.5 - 12.5 fL 10/24/2024 7:58 AM [facility] Blood Blood specimen / Unknown 10/24/2024 7:11 AM EST 10/24/2024 7:48 AM EST Neymar Mcfarland MD LAB BLOOD ORDERAB LES Performing Organization Address City/[facility]/[place] [address], [place] [address] * Phosphorus (Early AM) (10/24/2024 3:01 AM EST) Phosphorus 3.8 2.7 - 4.5 mg/dL 10/24/2024 3:36 AM [facility] Blood (Plasma/Serum) 10/24/2024 3:01 AM EST 10/24/2024 3:12 AM EST Macy Adam DO LAB BLOOD ORDERABLE S Performing Organization Address City/[facility]/[place] [address], [place] [address] * Magnesium (Routine) (10/24/2024 3:01 AM EST) Magnesium 1.8 1.6 - 2.7 mg/dL 10/24/2024 3:36 AM [facility] Blood (Plasma/Serum) 10/24/2024 3:01 AM EST 10/24/2024 3:12 AM EST Macy Adam DO [place] [address], [place] [address] * (ABNORMAL) Basic Metabolic Panel (Routine) (10/24/2024 3:01 AM EST) Glucose 128(H) 65 - 99 mg/dL 10/24/2024 3:36 AM [facility] Comment:Fasting: <100 mg/dL, Non-Fasting: <200 mg/dL (ADA 2005) Blood Urea Nitrogen (BUN) 67(H) 8 - 21 mg/dL 10/24/2024 3:36 AM [facility] Creatinine 3.8(H) 0.5 - 1.3 mg/dL 10/24/2024 3:36 AM [facility] eGFR 15(L) >59 10/24/2024 3:36 AM [facility] Comment:CKD-EPI (2020) in mL /min/1.73 sq meters. Sodium 143 136 - 145 mmol/L 10/24/2024 3:36 AM [facility] Potassium 4.4 3.4 - 5.3 mmol/L 10/24/2024 3:36 AM [facility] Chloride 107 98 - 107 mmol/L 10/24/2024 3:36 AM [facility] CO2 18(L) 22 - 33 mmol/L 10/24/2024 3:36 AM [facility] Anion Gap 18(H) 7 - 17 10/24/2024 3:36 AM [facility] Calcium 7.4(L) 8.7 - 10.5 mg/dL 10/24/2024 3:36 AM [facility] BUN/Creatinine Ratio 18 10.0 - 25.0 Ratio 10/24/2024 3:36 AM EST [facility] Blood (Plasma/Serum) 10/24/2024 3:01 AM EST 10/24/2024 3:12 AM EST Macy Adam DO LAB BLOOD ORDERABLE S Performing Organization Address [facility] de Phone Number [facility] [address] [place] [address], [facility] [address] [place] [address] * (ABNORMAL) POCT Glucose, Fingerstick (10/24/2024 1:53 AM EST) POC Glucose 155(H) 65 - 99 mg/dL 10/24/2024 3:46 AM EST Blood specimen / Unknown 10/24/2024 1:53 AM EST 10/24/2024 3:46 AM EST Fuad Winter MD POINT OF CARE TEST ORDERABLES Performing Organization Address [facility] Co de Phone Number HOSPITAL LAB [...] LAB BLOOD ORDERAB LES Performing Organization Address [facility]/State/[facility] [place] [address], [place] [address] * (ABNORMAL) POCT Glucose, Fingerstick (10/23/2024 9:02 [...] OF CARE TEST ORDERABLES Performing Organization Address City/[facility]/ZIP Co de Phone Number HOSPITAL LAB See Below * Magnesium (STAT) (10/23/2024 6:02 PM EST) [facility] [address] Magnesium 1.8 1.6 - 2.7 mg/dL 10/23/2024 7:21 PM EST [facility] Blood (Plasma/Serum) 10/23/2024 6:02 PM EST 10/23/2024 6:47 PM EST Adam Mullen MD LAB BLOOD ORDERABL ES Performing Organization Address [facility] [place] [address], [place] [address] * Phosphorus (STAT) (10/23/2024 6:02 PM EST) [facility] [address] Phosphorus 3.9 2.7 - 4.5 mg/dL 10/23/2024 7:21 PM EST [facility] Blood (Plasma/Serum) 10/23/2024 6:02 PM EST 10/23/2024 6:47 PM EST Adam Mullen MD LAB BLOOD ORDERABL ES Performing Organization Address [facility] [place] [address], [place] [address] * (ABNORMAL) Basic Metabolic Panel (STAT) (10/23/2024 6:02 PM EST) Glucose 173(H) 65 - 99 mg/dL 10/23/2024 7:21 PM [facility] Comment:Fasting: <100 mg/dL, Non-Fasting: <200 mg/dL (ADA 2004) Blood Urea Nitrogen (BUN) 71(H) 8 - 21 mg/dL 10/23/2024 7:21 PM [facility] Creatinine 4.1(H) 0.5 - 1.3 mg/dL 10/23/2024 7:21 PM [facility] eGFR 14(L) >59 10/23/2024 7:21 PM [facility] Comment:CKD-EPI (2020) in mL /min/1.73 sq meters. Sodium 145 136 - 145 mmol/L 10/23/2024 7:21 PM [facility] Potassium 5.0 3.4 - 5.3 mmol/L 10/23/2024 7:21 PM [facility] Chloride 109(H) 98 - 107 mmol/L 10/23/2024 7:21 PM [facility] CO2 21(L) 22 - 33 mmol/L 10/23/2024 7:21 PM [facility] Anion Gap 15 7 - 17 10/23/2024 7:21 PM [facility] Calcium 7.0(L) 8.7 - 10.5 mg/dL 10/23/2024 7:21 PM [facility] BUN/Creatinine Ratio 17 10.0 - 25.0 Ratio 10/23/2024 7:21 PM [facility] Blood (Plasma/Serum) 10/23/2024 6:02 PM EST 10/23/2024 6:47 PM EST Adam Mullen MD [place] [address], [place] [address] * ECG 12 lead (STAT) (10/23/2024 5:43 PM EST) Ventricular rate 73 BPM EKG [facility] Atrial rate 73 BPM EKG [facility] P-R interval 148 ms EKG [facility] QRS duration 80 ms EKG [facility] Q-T interval 460 ms EKG [facility] QTC calculation (Bazett) 507 ms EKG [facility] P axis 54 degrees EKG [facility] R axis 66 degrees EKG [facility] T axis 152 degrees EKG [facility] 10/23/2024 5:43 PM EST Narrative EKG [facility] - 10/24/2024 7:46 AM EST Normal sinus rhythm Nonspecific T wave abnormality Prolonged QT Abnormal ECG Confirmed by MD Wade John ([id number]) on 10/24/2024 7:46:04 AM Procedure Note Raciel Wade MD - 10/24/2024 Normal sinus rhythm Nonspecific T wave abnormality Prolonged QT Abnormal ECG Confirmed by MD Wade John ([id number]) on 10/24/2024 7:46:04 AM Bryant Gracia PA-C ECG ORDERABLES [facility] * Heparin Assay (Anti Xa) (10/23/2024 [...] LAB BLOOD ORDERAB LES Performing Organization Address [facility]/State/[facility] [place] [address], [place] [address] * (ABNORMAL) POCT Glucose, Fingerstick (10/23/2024 12:59 PM EST) POC Glucose 158(H) 65 - 99 mg/dL 10/23/2024 1:00 PM EST Blood specimen / Unknown 10/23/2024 12:59 PM EST 10/23/2024 1:00 PM EST Fuad Winter MD POINT OF CARE TEST ORDERABLES HOSPITAL LAB See Below * Albumin (10/23/2024 10:31 AM EST) Albumin 3.5 3.4 - 4.8 g/dL 10/23/2024 12:13 PM [facility] Blood (Plasma/Serum) 10/23/2024 10:31 AM EST 10/23/2024 11:36 AM EST Neymar Mcfarland MD LAB BLOOD ORDERAB LES Performing Organization Address [facility] [place] [address], [place] [address] * (ABNORMAL) Calcium, Ionized (10/23/2024 10:31 AM EST) Calcium, Ionized 0.88(L) 1.17 - 1.33 mmol/L 10/23/2024 12:16 PM [facility] Blood Blood specimen / Unknown 10/23/2024 10:31 AM EST 10/23/2024 11:36 AM EST Neymar Mcfarland MD LAB BLOOD ORDERAB LES Performing Organization Address [facility] [place] [address], [place] [address] * (ABNORMAL) Calcium, Total (10/23/2024 10:31 AM EST) Calcium 7.4(L) 8.7 - 10.5 mg/dL 10/23/2024 12:13 PM [facility] Blood (Plasma/Serum) 10/23/2024 10:31 AM EST 10/23/2024 11:36 AM EST Neymar Mcfarland MD LAB BLOOD ORDERAB LES Performing Organization Address City/[facility]/[place] [address], [address] [address] * (ABNORMAL) PTH, Intact (10/23/2024 10:31 AM EST) PTH, Intact 579(H) 15 - 65 pg/mL 10/23/2024 12:23 PM EST [facility] Blood (Plasma/Serum) 10/23/2024 10:31 AM EST 10/23/2024 11:36 AM EST Neymar Mcfarland MD LAB BLOOD ORDERAB LES Performing Organization Address [facility]/[place] [address], [place] [address] * POCT Glucose, Fingerstick (10/23/2024 8:36 AM EST) Pathologist [facility] [place] POC Glucose 82 65 - 99 mg/dL 10/23/2024 8:37 AM EST Blood specimen / Unknown 10/23/2024 8:36 AM EST 10/23/2024 8:37 AM EST Fuad Winter MD POINT OF CARE TEST ORDERABLES HOSPITAL LAB See Below * (ABNORMAL) LIPID PANEL (10/23/2024 6:05 AM EST) Cholesterol, Total 110 <200 mg/dL 2024 8:30 AM [facility] Triglycerides 141 <150 mg/dL 10/23/2024 8:30 AM [facility] Cholesterol, HDL 30(L) >39 mg/dL 10/23/19 8:30 AM [facility] Estimated LDL 52 <130 mg/dL 10/23/2024 8:30 AM [facility] Comment: NCEP Guidelines: ?< 100 mg/dL ??Optimal 100 - 129 mg/dL ??Near Optimal/Above Optimal 130 - 159 mg/dL ??Borderline High 160 - 189 mg/dL ??High ??>/= 190 mg/dL ??Very High Cholesterol/HDL Ratio 3.7 0.0 - 5.0 Ratio 10/23/2024 8:30 AM [facility] Comment: Relative Risk ? Ratio - Male ? Ratio - Female ?0.5 ?3.4 ?3.3 ?1.0 ?5.0 ?4.4 ?2.0 ?9.6 ?7.1 ?3.0 ? 23.4 ? 11.0 Plasma/Serum 10/23/2024 6:05 AM EST 10/23/2024 7:46 AM EST Adilia Woo MD LAB BLOOD ORDERABLES Performing Organization Address City/State/[facility] [place] [address], [place] [address] * Heparin Assay (Anti Xa) (10/23/2024 6:05 AM EST) Anti Xa 0.54 IU/mL 10/23/2024 8:02 AM [facility] Comment: (NOTE) Heparin Thromboembolic/Standard/Full Dose Protocol: [...] MD LAB BLOOD ORDERABLES Performing Organization Address City/State/[facility] [place] [address], [place] [address] * Phosphorus (AM) (10/23/2024 6:05 AM EST) Phosphorus 3.9 2.7 - 4.5 mg/dL 10/23/2024 8:30 AM [facility] Blood (Plasma/Serum) 10/23/2024 6:05 AM EST 10/23/2024 7:46 AM EST Neymar Mcfarland MD LAB BLOOD ORDERAB LES Performing Organization Address [facility] [place] [address], [place] [address] * Magnesium (AM) (10/23/2024 6:05 AM EST) Magnesium 1.8 1.6 - 2.7 mg/dL 10/23/2024 8:30 AM [facility] Blood (Plasma/Serum) 10/23/2024 6:05 AM EST 10/23/2024 7:46 AM EST Neymar Mcfarland MD LAB BLOOD ORDERAB LES Performing Organization Address City/[facility] [place] [address], [place] [address] * (ABNORMAL) Basic Metabolic Panel (AM) (10/23/2024 6:05 AM EST) Glucose 66 65 - 99 mg/dL 10/23/2024 8:30 AM [facility] Comment:Fasting: <100 mg/dL, Non-Fasting: <200 mg/dL (ADA 2005) Blood Urea Nitrogen (BUN) 74(H) 8 - 21 mg/dL 10/23/2024 8:30 AM [facility] Creatinine 4.1(H) 0.5 - 1.3 mg/dL 10/23/2024 8:30 AM [facility] eGFR 14(L) >59 10/23/2024 8:30 AM [facility] Comment:CKD-EPI (2020) in mL /min/1.73 sq meters. Sodium 147(H) 136 - 145 mmol/L 10/23/2024 8:30 AM [facility] Potassium 4.0 3.4 - 5.3 mmol/L 10/23/2024 8:30 AM [facility] Chloride 110(H) 98 - 107 mmol/L 10/23/2024 8:30 AM [facility] CO2 18(L) 22 - 33 mmol/L 10/23/2024 8:30 AM [facility] Anion Gap 19(H) 7 - 17 10/23/2024 8:30 AM [facility] Calcium 7.3(L) 8.7 - 10.5 mg/dL 10/23/2024 8:30 AM [facility] BUN/Creatinine Ratio 18 10.0 - 25.0 Ratio 10/23/2024 8:30 AM [facility] Blood (Plasma/Serum) 10/23/2024 6:05 AM EST 10/23/2024 7:46 AM EST Neymar Mcfarland MD [place] [address], [place] [address] * (ABNORMAL) Complete Blood Count WITHOUT Differential - in AM (10/23/2024 6:05 AM EST) White Blood Cell Count 11.2(H) 4.0 - 11.0 Thou/uL 10/23/2024 8:29 AM [facility] Platelet Count 374 150 - 450 Thou/uL 10/23/2024 8:29 AM [facility] Hemoglobin 9.6(L) 13.0 - 17.7 g/dL 10/23/2024 8:29 AM [facility] Hematocrit 30.5(L) 39.0 - 54.0 % 10/23/2024 8:29 AM [facility] Red Blood Cell Count 3.17(L) 4.50 - 6.20 Mil/uL 10/23/2024 8:29 AM [facility] MCV 96 80 - 100 fL 10/23/2024 8:29 AM [facility] MCH 30.3 27.0 - 31.0 pg 10/23/2024 8:29 AM [facility] MCHC 31.5 30.0 - 36.0 g/dL 10/23/2024 8:29 AM EST [facility] RDW 16.4(H) 11.5 - 14.5 % 10/23/2024 8:29 AM EST [facility] MPV 11.6 7.5 - 12.5 fL 10/23/2024 8:29 AM EST [facility] Blood Blood specimen / Unknown 10/23/2024 6:05 AM EST 10/23/2024 7:46 AM EST Neymar Mcfarland MD LAB BLOOD ORDERAB LES Performing Organization Address City/[facility]/[place] [address], [place] [address] * POCT Glucose, Fingerstick (10/23/2024 1:59 AM EST) POC Glucose 83 65 - 99 mg/dL 10/23/2024 2:00 AM EST Blood specimen / Unknown 10/23/2024 1:59 AM EST 10/23/2024 2:00 AM EST Fuad Winter MD POINT OF CARE TEST ORDERABLES Performing Organization Address City/[facility] Co de Phone Number [facility] LAB See Below * (ABNORMAL) POCT Glucose, Fingerstick (10/22/2024 8:40 PM EST) POC Glucose 145(H) 65 - 99 mg/dL 10/22/2024 8:53 PM EST Blood specimen / Unknown 10/22/2024 8:40 PM EST 10/22/2024 8:53 PM EST Fuad Winter MD POINT OF CARE TEST ORDERABLES [facility] LAB See Below * (ABNORMAL) POCT Glucose, Fingerstick (10/22/2024 6:12 PM EST) POC Glucose 165(H) 65 - 99 mg/dL 10/22/2024 6:12 PM EST Blood specimen / Unknown 10/22/2024 6:12 PM EST 10/22/2024 6:13 PM EST Fuad Winter MD POINT OF CARE TEST ORDERABLES Performing Organization Address [facility] LAB See Below * (ABNORMAL) POCT Glucose, Fingerstick (10/22/2024 1:10 PM EST) POC Glucose 154(H) 65 - 99 mg/dL 10/22/2024 1:10 PM EST Blood specimen / Unknown 10/22/2024 1:10 PM EST 10/22/2024 1:11 PM EST Fuad Winter MD POINT OF CARE TEST ORDERABLES Performing Organization Address [facility] LAB See Below * (ABNORMAL) POCT Glucose, Fingerstick (10/22/2024 9:10 AM EST) POC Glucose 139(H) 65 - 99 mg/dL 10/22/2024 9:11 AM EST Blood specimen / Unknown 10/22/2024 9:10 AM EST 10/22/2024 9:11 AM EST Fuad Winter MD POINT OF CARE TEST ORDERABLES Performing Organization Address [facility] LAB See Below * Heparin Assay (Anti [...] LAB BLOOD ORDERABLES [facility] [address] [place] [address], [facility] [address] [place] [address] * (ABNORMAL) Complete Blood Count WITHOUT Differential - in AM (10/22/2024 8:12 AM EST) White Blood Cell Count 10.7 4.0 - 11.0 Thou/uL 10/22/2024 8:44 AM [facility] Platelet Count 337 150 - 450 Thou/uL 10/22/2024 8:44 AM [facility] Hemoglobin 9.4(L) 13.0 - 17.7 g/dL 10/22/2024 8:44 AM [facility] Hematocrit 30.3(L) 39.0 - 54.0 % 10/22/2024 8:44 AM [facility] Red Blood Cell Count 3.13(L) 4.50 - 6.20 Mil/uL 10/22/2024 8:44 AM [facility] MCV 97 80 - 100 fL 10/22/2024 8:44 AM [facility] MCH 30.0 27.0 - 31.0 pg 10/22/2024 8:44 AM [facility] MCHC 31.0 30.0 - 36.0 g/dL 10/22/2024 8:44 AM [facility] RDW 16.2(H) 11.5 - 14.5 % 10/22/2024 8:44 AM [facility] MPV 11.3 7.5 - 12.5 fL 10/22/2024 8:44 AM [facility] Blood Blood specimen / Unknown 10/22/2024 8:12 AM EST 10/22/2024 8:18 AM EST Adilia Woo MD LAB BLOOD ORDERABLES Performing Organization Address City/State/[facility] [place] [address], [place] [address] * Magnesium (AM) (10/22/2024 8:12 AM EST) Pathologist [facility] [place] Magnesium 1.7 1.6 - 2.7 mg/dL 10/22/2024 8:54 AM [facility] Blood (Plasma/Serum) 10/22/2024 8:12 AM EST 10/22/2024 8:18 AM EST Adilia Woo MD [place] [address], [place] [address] * (ABNORMAL) Basic Metabolic Panel (AM) (10/22/2024 8:12 AM EST) Glucose 124(H) 65 - 99 mg/dL 10/22/2024 8:54 AM [facility] Comment:Fasting: <100 mg/dL, Non-Fasting: <200 mg/dL (ADA 2004) Blood Urea Nitrogen (BUN) 82(H) 8 - 21 mg/dL 10/22/2024 8:54 AM [facility] Creatinine 4.3(H) 0.5 - 1.3 mg/dL 10/22/2024 8:54 AM [facility] eGFR 13(L) >59 10/22/2024 8:54 AM [facility] Comment:CKD-EPI (2020) in mL /min/1.73 sq meters. Sodium 145 136 - 145 mmol/L 10/22/2024 8:54 AM [facility] Potassium 4.4 3.4 - 5.3 mmol/L 10/22/2024 8:54 AM [facility] Chloride 110(H) 98 - 107 mmol/L 10/22/2024 8:54 AM [facility] CO2 17(L) 22 - 33 mmol/L 10/22/2024 8:54 AM [facility] Anion Gap 18(H) 7 - 17 10/22/2024 8:54 AM [facility] Calcium 7.1(L) 8.7 - 10.5 mg/dL 10/22/2024 8:54 AM [facility] BUN/Creatinine Ratio 19 10.0 - 25.0 Ratio 10/22/2024 8:54 AM [facility] Blood (Plasma/Serum) 10/22/2024 8:12 AM EST 10/22/2024 8:18 AM EST Adilia Woo MD [place] [address], [address] [facility] [place] [address] * (ABNORMAL) POCT Glucose, Fingerstick (10/22/2024 1:23 AM EST) POC Glucose 122(H) 65 - 99 mg/dL 10/22/2024 1:28 AM EST Blood specimen / Unknown 10/22/2024 1:23 AM EST 10/22/2024 1:28 AM EST Fuad Winter MD POINT OF CARE TEST ORDERABLES HOSPITAL LAB See Below * ECG 12 lead (10/21/2024 9:45 PM EST) [facility] [address] Ventricular rate 80 BPM EKG [facility] Atrial rate 80 BPM EKG [facility] P-R interval 146 [facility] duration 86 ms E[facility] Q-T interval 438 ms EKG [facility] QTC calculation (Bazett) 506 ms EKG [facility] P axis 52 degrees EKG [facility] R axis 59 degrees EKG [facility] T axis 229 degrees EKG [facility] 10/21/2024 9:45 PM EST Narrative EKG [...] Hanson MD ECG ORDERABLES Performing Organization Address City/[facility]/ZIP Co de Phone Number [facility] * (ABNORMAL) POCT Glucose, Fingerstick (10/21/2024 9:04 PM EST) POC Glucose 190(H) 65 - 99 mg/dL 10/21/2024 9:09 PM EST Blood specimen / Unknown 10/21/2024 9:04 PM EST 10/21/2024 9:09 PM EST Fuad Winter MD POINT OF CARE TEST ORDERABLES Performing Organization Address [facility] Number [facility] LAB See Below * (ABNORMAL) POCT Glucose, Fingerstick (10/21/2024 6:23 PM EST) POC Glucose 140(H) 65 - 99 mg/dL 10/21/2024 6:24 PM EST Blood specimen / Unknown 10/21/2024 6:23 PM EST 10/21/2024 6:24 PM EST Fuad Winter MD POINT OF CARE TEST ORDERABLES Performing Organization Address [facility] Number [facility] LAB See Below * (ABNORMAL) POCT Glucose, Fingerstick (10/21/2024 1:38 PM EST) POC Glucose 270(H) 65 - 99 mg/dL 10/21/2024 1:39 PM EST Blood specimen / Unknown 10/21/2024 1:38 PM EST 10/21/2024 1:39 PM EST Fuad Winter MD POINT OF CARE TEST ORDERABLES Performing Organization Address [facility] Number [facility] LAB See Below * (ABNORMAL) POCT [...] MD LAB BLOOD ORDERABLES Performing Organization Address [facility] [place] [address], [place] [address] * (ABNORMAL) POCT Glucose, Fingerstick (10/21/2024 8:35 AM EST) POC Glucose 219(H) 65 - 99 mg/dL 10/21/2024 8:36 AM EST Blood specimen / Unknown 10/21/2024 8:35 AM EST 10/21/2024 8:36 AM EST Fuad Winter MD POINT OF CARE TEST ORDERABLES Performing Organization Address [facility] Phone Number HOSPITAL LAB See Below * (ABNORMAL) POCT Glucose, Fingerstick (10/21/2024 8:03 AM EST) POC Glucose 181(H) 65 - 99 mg/dL 10/21/2024 8:04 AM EST Blood specimen / Unknown 10/21/2024 8:03 AM EST 10/21/2024 8:04 AM EST Fuad Winter MD POINT OF CARE TEST ORDERABLES Performing Organization Address [facility] de Phone Number HOSPITAL LAB See Below * (ABNORMAL) Basic Metabolic Panel (Routine) (10/21/2024 3:09 AM EST) Glucose 193(H) 65 - 99 mg/dL 10/21/2024 3:41 AM [facility] Comment:Fasting: <100 mg/dL, Non-Fasting: <200 mg/dL (ADA 2004) Blood Urea Nitrogen (BUN) 83(H) 8 - 21 mg/dL 10/21/2024 3:41 AM [facility] Creatinine 4.3(H) 0.5 - 1.3 mg/dL 10/21/2024 3:41 AM [facility] eGFR 13(L) >59 10/21/2024 3:41 AM [facility] Comment:CKD-EPI (2020) in mL /min/1.73 sq meters. Sodium 140 136 - 145 mmol/L 10/21/2024 3:41 AM [facility] Potassium 4.5 3.4 - 5.3 mmol/L 10/21/2024 3:41 AM [facility] Chloride 109(H) 98 - 107 mmol/L 10/21/2024 3:41 AM [facility] CO2 15(L) 22 - 33 mmol/L 10/21/2024 3:41 AM [facility] Anion Gap 16 7 - 17 10/21/2024 3:41 AM [facility] Calcium 7.1(L) 8.7 - 10.5 mg/dL 10/21/2024 3:41 AM [facility] BUN/Creatinine Ratio 19 10.0 - 25.0 Ratio 10/21/2024 3:41 AM [facility] Blood (Plasma/Serum) 10/21/2024 3:09 AM EST 10/21/2024 3:13 AM EST Magdaleno Crowder MD [place] [address], [address] [address] * (ABNORMAL) Complete Blood Count WITHOUT Differential - Early AM (10/21/2024 3:09 AM EST) White Blood Cell Count 10.8 4.0 - 11.0 Thou/uL 10/21/2024 3:18 AM [facility] Platelet Count 299 150 - 450 Thou/uL 10/21/2024 3:18 AM [facility] Hemoglobin 8.9(L) 13.0 - 17.7 g/dL 10/21/2024 3:18 AM [facility] Hematocrit 28.9(L) 39.0 - 54.0 % 10/21/2024 3:18 AM [facility] Red Blood Cell Count 2.97(L) 4.50 - 6.20 Mil/uL 10/21/2024 3:18 AM [facility] MCV 97 80 - 100 fL 10/21/2024 3:18 AM [facility] MCH 30.0 27.0 - 31.0 pg 10/21/2024 3:18 AM [facility] MCHC 30.8 30.0 - 36.0 g/dL 10/21/2024 3:18 AM [facility] RDW 16.3(H) 11.5 - 14.5 % 10/21/2024 3:18 AM [facility] MPV 11.0 7.5 - 12.5 fL 10/21/2024 3:18 AM [facility] Blood Blood specimen / Unknown 10/21/2024 3:09 AM EST 10/21/2024 3:13 AM EST Magdaleno Crowder MD LAB BLOOD ORDERABLES Performing Organization Address City/State/[facility] [place] [address], [place] [address] * Heparin Assay (Anti Xa) (10/21/2024 3:09 AM EST) Anti Xa 0.35 IU/mL 10/21/2024 3:31 AM [facility] Comment: (NOTE) Heparin Thromboembolic/Standard/Full Dose Protocol: [...] MD LAB BLOOD ORDERABLES Performing Organization Address [facility]/State/[facility] [place] [address], [facility] [address] [place] [address] * (ABNORMAL) POCT Glucose, Fingerstick (10/21/2024 2:23 AM EST) POC Glucose 198(H) 65 - 99 mg/dL 10/21/2024 2:23 AM EST Blood specimen / Unknown 10/21/2024 2:23 AM EST 10/21/2024 2:24 AM EST Fuad Winter MD POINT OF CARE TEST ORDERABLES Performing Organization Address [facility] Phone Number HOSPITAL LAB See Below * (ABNORMAL) POCT Glucose, Fingerstick (10/20/2024 8:47 PM EST) Pathologist [facility] [place] POC Glucose 218(H) 65 - 99 mg/dL 10/20/2024 8:50 PM EST Blood specimen / Unknown 10/20/2024 8:47 PM EST 10/20/2024 8:50 PM EST Fuad Winter MD POINT OF CARE TEST ORDERABLES Performing Organization Address [facility] Phone Number HOSPITAL LAB See Below [...] MD LAB BLOOD ORDERABLES Performing Organization Address City/State/[facility] [place] [address], [place] [address] * (ABNORMAL) POCT Glucose, Fingerstick (10/20/2024 5:51 PM EST) POC Glucose 175(H) 65 - 99 mg/dL 10/20/2024 5:52 PM EST Blood specimen / Unknown 10/20/2024 5:51 PM EST 10/20/2024 5:52 PM EST Fuad Winter MD POINT OF CARE TEST ORDERABLES Performing Organization Address [facility] de Phone Number [facility] See Below * (ABNORMAL) POCT Glucose, Fingerstick (10/20/2024 3:47 PM EST) POC Glucose 222(H) 65 - 99 mg/dL 10/20/2024 3:52 PM EST Blood specimen / Unknown 10/20/2024 3:47 PM EST 10/20/2024 3:52 PM EST Fuad Winter MD POINT OF CARE TEST ORDERABLES Performing Organization Address [facility] de Phone Number [facility] See Below * (ABNORMAL) POCT Glucose, Fingerstick (10/20/2024 11:43 AM EST) POC Glucose 210(H) 65 - 99 mg/dL 10/20/2024 11:45 AM EST Blood specimen / Unknown 10/20/2024 11:43 AM EST 10/20/2024 11:44 AM EST Fuad Winter MD POINT OF CARE TEST ORDERABLES Performing Organization Address [facility] Phone Number [facility] LAB See Below * (ABNORMAL) Blood Gas, Venous (10/20/2024 10:39 AM EST) Pathologist [facility] [place] Venous Blood PH 7.29(L) 7.33 - 7.43 10/20/2024 10:54 AM EST [facility] Venous pCO2 39 35 - 50 mmHG 10/20/2024 10:54 AM [facility] Venous pO2 49 0 - 60 mmHG 10/20/2024 10:54 AM EST [facility] Venous Total CO2 20(L) 23 - 29 mmol/L 10/20/2024 10:54 AM EST [facility] Respiratory Info NASAL 4 L/MIN 10/20/2024 10:39 AM EST Base Deficiency 7.2 mmol/L 10:54 AM [facility] Comment:Reference Range: Neg ative 2 to Positive 3 Blood Blood specimen / Unknown 10/20/2024 10:39 AM EST 10/20/2024 10:47 AM EST Kristopher Hickey MD LAB BLOOD ORDERAB LES Performing Organization Address [facility] Co de Phone Number [address] [address], [address] [address] * (ABNORMAL) POCT Glucose, Fingerstick (10/20/2024 10:37 AM EST) POC Glucose 187(H) 65 - 99 mg/dL 10/20/2024 10:37 AM EST Blood specimen / Unknown 10/20/2024 10:37 AM EST 10/20/2024 10:38 AM EST Fuad Winter MD POINT OF CARE TEST ORDERABLES Performing Organization Address City/[facility] Co de Phone Number HOSPITAL LAB See Below * Lactic Acid, Plasma (STAT) (10/20/2024 10:00 AM EST) Lactic Acid 0.8 0.5 - 1.9 mmol/L 10/20/2024 10:37 AM EST [facility] Blood Plasma specimen / Unknown 10/20/2024 10:00 AM EST 10/20/2024 10:07 AM EST Kristopher Hickey MD LAB BLOOD ORDERAB LES Performing Organization Address [facility] Co de Phone Number [address] [address], [address] [address] * (ABNORMAL) POCT Glucose, Fingerstick (10/20/2024 7:48 AM EST) POC Glucose 156(H) 65 - 99 mg/dL 10/20/2024 7:49 AM EST Blood specimen / Unknown 10/20/2024 7:48 AM EST 10/20/2024 7:49 AM EST Fuad Winter MD POINT OF CARE TEST ORDERABLES Performing Organization Address City/[facility]/ZIP Co de Phone Number [facility] See Below * (ABNORMAL) POCT Glucose, Fingerstick (10/20/2024 5:43 AM EST) POC Glucose 148(H) 65 - 99 mg/dL 10/20/2024 5:44 AM EST Blood specimen / Unknown 10/20/2024 5:43 AM EST 10/20/2024 5:44 AM EST Fuad Winter MD POINT OF CARE TEST ORDERABLES Performing Organization Address City/[facility]/ZIP Co de Phone Number [facility] See Below * (ABNORMAL) POCT Glucose, Fingerstick (10/20/2024 2:15 AM EST) Pathologist [facility] [place] POC Glucose 219(H) 65 - 99 mg/dL 10/20/2024 2:16 AM EST Blood specimen / Unknown 10/20/2024 2:15 AM EST 10/20/2024 2:16 AM EST Fuad Winter MD POINT OF CARE TEST ORDERABLES Performing Organization Address [facility] Co de Phone Number [facility] See Below * Phosphorus (Routine) (10/19/2024 11:59 PM EST) [facility] [address] Phosphorus 4.4 2.7 - 4.5 mg/dL 10/20/2024 1:00 AM [facility] Blood (Plasma/Serum) 10/19/2024 11:59 PM EST 10/20/2024 12:25 AM EST Kristopher Hickey MD LAB BLOOD ORDERAB LES Performing Organization Address [facility] [place] [address], [place] [address] * Magnesium (Routine) (10/19/2024 11:59 PM EST) Pathologist [facility] [place] Magnesium 1.6 1.6 - 2.7 mg/dL 10/20/2024 1:00 AM [facility] Blood (Plasma/Serum) 10/19/2024 11:59 PM EST 10/20/2024 12:25 AM EST Kristopher Hickey MD LAB BLOOD ORDERAB LES Performing Organization Address City/State/[facility] [place] [address], [address] [address] * (ABNORMAL) Complete Blood Count, with Differential (10/19/2024 11:59 PM EST) White Blood Cell Count 11.5(H) 4.0 - 11.0 Thou/uL 10/20/2024 12:32 AM [facility] Platelet Count 271 150 - 450 Thou/uL 10/20/2024 12:32 AM [facility] Hemoglobin 8.9(L) 13.0 - 17.7 g/dL 10/20/2024 12:32 AM [facility] Hematocrit 28.6(L) 39.0 - 54.0 % 10/20/2024 12:32 AM [facility] Red Blood Cell Count 2.93(L) 4.50 - 6.20 Mil/uL 10/20/2024 12:32 AM [facility] MCV 98 80 - 100 fL 10/20/2024 12:32 AM [facility] MCH 30.4 27.0 - 31.0 pg 10/20/2024 12:32 AM [facility] MCHC 31.1 30.0 - 36.0 g/dL 10/20/2024 12:32 AM [facility] RDW 16.5(H) 11.5 - 14.5 % 10/20/2024 12:32 AM [facility] MPV 11.3 7.5 - 12.5 fL 10/20/2024 12:32 AM [facility] Neutrophils Auto 80.7 % 10/20/19 12:32 AM [facility] Immature Granulocytes 0.6 % 10/20/2024 12:32 AM [facility] Lymphocytes Auto 11.6 % 10/20/19 12:32 AM [facility] Monocytes Auto 6.7 % 10/20/2024 12:32 AM [facility] Eosinophils Auto 0.2 % 10/20/19 12:32 AM [facility] Basophils Auto 0.2 % 10/20/2024 12:32 AM [facility] Abs Neutrophils Auto 9.25(H) 2.00 - 7.50 Thou/uL 10/20/2024 12:32 AM [facility] Abs Immature Granulocytes 0.07 0.00 - 0.10 Thou/uL 10/20/2024 12:32 AM [facility] Abs Lymphocytes Auto 1.33(L) 1.50 - 4.50 Thou/uL 10/20/2024 12:32 AM [facility] Abs Monocytes Auto 0.77 0.20 - 1.50 Thou/uL 10/20/2024 12:32 AM [facility] Abs Eosinophils Auto 0.02 0.00 - 0.70 Thou/uL 10/20/2024 12:32 AM [facility] Abs Basophils Auto 0.02 0.00 - 0.20 Thou/uL 10/20/2024 12:32 AM [facility] Blood Blood specimen / Unknown 10/19/2024 11:59 PM EST 10/20/2024 12:25 AM EST Fuad Winter MD [place] [address], [place] [address] * (ABNORMAL) Basic Metabolic Panel (Routine) (10/19/2024 11:59 PM EST) Glucose 183(H) 65 - 99 mg/dL 10/20/2024 1:00 AM [facility] Comment:Fasting: <100 mg/dL, Non-Fasting: <200 mg/dL (ADA 2005) Blood Urea Nitrogen (BUN) 86(H) 8 - 21 mg/dL 10/20/2024 1:00 AM [facility] Creatinine 4.7(H) 0.5 - 1.3 mg/dL 10/20/2024 1:00 AM [facility] eGFR 12(L) >59 10/20/2024 1:00 AM [facility] Comment:CKD-EPI (2020) in mL /min/1.73 sq meters. Sodium 140 136 - 145 mmol/L 10/20/2024 1:00 AM [facility] Potassium 4.4 3.4 - 5.3 mmol/L 10/20/2024 1:00 AM [facility] Chloride 106 98 - 107 mmol/L 10/20/2024 1:00 AM [facility] CO2 14(L) 22 - 33 mmol/L 10/20/2024 1:00 AM [facility] Anion Gap 20(H) 7 - 17 10/20/2024 1:00 AM [facility] Calcium 7.2(L) 8.7 - 10.5 mg/dL 10/20/2024 1:00 AM [facility] BUN/Creatinine Ratio 18 10.0 - 25.0 Ratio 10/20/2024 1:00 AM [facility] Blood (Plasma/Serum) 10/19/2024 11:59 PM EST 10/20/2024 12:25 AM EST Magdaleno Crowder MD [place] [address], [place] [address] * Heparin Assay (Anti Xa) (10/19/2024 11:59 PM EST) Anti Xa 0.45 IU/mL 10/20/2024 12:49 AM [facility] Comment: (NOTE) Heparin Thromboembolic/Standard/Full Dose Protocol: [...] LAB BLOOD ORDERAB LES Performing Organization Address City/State/[facility] Co de Phone Number [place], [place] [address], [place] [address] * (ABNORMAL) POCT Glucose, Fingerstick (10/19/2024 8:00 PM EST) POC Glucose 132(H) 65 - 99 mg/dL 10/20/2024 2:16 AM EST Blood specimen / Unknown 10/19/2024 8:00 PM EST 10/20/2024 2:16 AM EST Fuad Winter MD POINT OF CARE TEST ORDERABLES Performing Organization Address [facility] LAB See Below * (ABNORMAL) POCT Glucose, Fingerstick (10/19/2024 6:53 PM EST) POC Glucose 165(H) 65 - 99 mg/dL 10/19/2024 6:54 PM EST Blood specimen / Unknown 10/19/2024 6:53 PM EST 10/19/2024 6:54 PM EST Fuad Winter MD POINT OF CARE TEST ORDERABLES Performing Organization Address [facility] LAB See Below * (ABNORMAL) POCT Glucose, Fingerstick (10/19/2024 5:42 PM EST) POC Glucose 114(H) 65 - 99 mg/dL 10/19/2024 5:43 PM EST Blood specimen / Unknown 10/19/2024 5:42 PM EST 10/19/2024 5:43 PM EST Fuad Winter MD POINT OF CARE TEST ORDERABLES Performing Organization Address [facility] LAB See Below * (ABNORMAL) POCT Glucose, Fingerstick (10/19/2024 4:33 PM EST) POC Glucose 159(H) 65 - 99 mg/dL 10/19/2024 4:34 PM EST Blood specimen / Unknown 10/19/2024 4:33 PM EST 10/19/2024 4:34 PM EST Fuad Winter MD POINT OF CARE TEST ORDERABLES Performing Organization Address [facility] LAB See Below * (ABNORMAL) Basic Metabolic Panel (10/19/2024 3:47 PM EST) Glucose 126(H) 65 - 99 mg/dL 10/19/2024 4:58 PM [facility] Comment:Fasting: <100 mg/dL, Non-Fasting: <200 mg/dL (ADA 2004) Blood Urea Nitrogen (BUN) 81(H) 8 - 21 mg/dL 10/19/2024 4:58 PM [facility] Creatinine 4.6(H) 0.5 - 1.3 mg/dL 10/19/2024 4:58 PM [facility] eGFR 12(L) >59 10/19/2024 4:58 PM [facility] Comment:CKD-EPI (2020) in mL /min/1.73 sq meters. Sodium 143 136 - 145 mmol/L 10/19/2024 4:58 PM [facility] Potassium 4.4 3.4 - 5.3 mmol/L 10/19/2024 4:58 PM [facility] Chloride 109(H) 98 - 107 mmol/L 10/19/2024 4:58 PM [facility] CO2 15(L) 22 - 33 mmol/L 10/19/2024 4:58 PM [facility] Anion Gap 19(H) 7 - 17 10/19/2024 4:58 PM [facility] Calcium 7.0(L) 8.7 - 10.5 mg/dL 10/19/2024 4:58 PM [facility] BUN/Creatinine Ratio 18 10.0 - 25.0 Ratio 10/19/2024 4:58 PM [facility] Blood (Plasma/Serum) 10/19/2024 3:47 PM EST 10/19/2024 4:16 PM EST Pushpa Gallegos MD [place] [address], [place] [address] * (ABNORMAL) Hemoglobin and Hematocrit (10/19/2024 2:25 PM EST) Hematocrit 32.3(L) 39.0 - 54.0 % 10/19/2024 3:39 PM [facility] Hemoglobin 9.9(L) 13.0 - 17.7 g/dL 10/19/2024 3:39 PM EST [facility] Blood Blood specimen / Unknown 10/19/2024 2:25 PM EST 10/19/2024 3:31 PM EST Kristopher Hickey MD LAB BLOOD ORDERAB LES Performing Organization Address City/State/[facility] Co de Phone Number [facility] [address] [place] [address], [facility] [address] [place] [address] * Heparin Assay (Anti Xa) (10/19/2024 2:25 PM EST) Anti Xa 0.52 IU/mL 10/19/2024 3:44 PM [facility] Comment: (NOTE) Heparin Thromboembolic/Standard/Full Dose Protocol: [...] LAB BLOOD ORDERAB LES Performing Organization Address [facility]/State/[facility] [place] [address], [place] [address] * (ABNORMAL) Blood Gas, Venous (10/19/2024 2:25 PM EST) Venous Blood PH 7.32(L) 7.33 - 7.43 10/19/2024 3:10 PM [facility] Venous pCO2 31(L) 35 - 50 mmHG 10/19/2024 3:10 PM [facility] Venous pO2 <30 0 - 60 mmHG 10/19/2024 3:10 PM [facility] Venous Total CO2 17(L) 23 - 29 mmol/L 10/19/2024 3:10 PM [facility] Respiratory Info VM 50% 10/19/19 2:25 PM EST Base Deficiency 9.0 mmol/L 3:10 PM [facility] Comment:Reference Range: Neg ative 2 to Positive 3 Blood Blood specimen / Unknown 10/19/2024 2:25 PM EST 10/19/2024 2:56 PM EST Pushpa Gallegos MD LAB BLOOD ORDERABLES Performing Organization Address [facility] Co de Phone Number [address] [address], [address] [address] * (ABNORMAL) POCT Glucose, Fingerstick (10/19/2024 1:52 PM EST) POC Glucose 133(H) 65 - 99 mg/dL 10/19/2024 1:53 PM EST Blood specimen / Unknown 10/19/2024 1:52 PM EST 10/19/2024 1:53 PM EST Fuad Winter MD POINT OF CARE TEST ORDERABLES Performing Organization Address [facility] Co de Phone Number [facility] LAB See Below * (ABNORMAL) POCT Glucose, Fingerstick (10/19/2024 11:40 AM EST) POC Glucose 145(H) 65 - 99 mg/dL 10/19/2024 11:41 AM EST Blood specimen / Unknown 10/19/2024 11:40 AM EST 10/19/2024 11:41 AM EST Fuad Winter MD POINT OF CARE TEST ORDERABLES Performing Organization Address [facility] Co de Phone Number [facility] LAB See Below * B-Hydroxybutyrate (10/19/2024 11:34 [...] MD LAB BLOOD ORDERABLES Performing Organization Address City/[facility]/[place] [address], [place] [address] * (ABNORMAL) High Sensitivity Troponin T (10/19/2024 11:34 AM EST) Pathologist [facility] [place] High Sensitivity Troponin T 4,276(HH) <23 ng/L 10/19/2024 3:44 PM [facility] Comment:Recurring Critical R esult. Previously phoned. Delta (Change) 2,446(H) <3 10/19/2024 3:44 PM [facility] Comment:Increased Plasma/Serum 10/19/2024 11:3 4 AM EST 10/19/2024 11:54 AM EST Pushpa Gallegos MD LAB BLOOD ORDERABLES Performing Organization Address City/[facility] [place] [address], [place] [address] * (ABNORMAL) Basic Metabolic Panel (10/19/2024 11:34 AM EST) [facility] [address] Glucose 128(H) 65 - 99 mg/dL 10/19/2024 1:00 PM [facility] Comment:Fasting: <100 mg/dL, Non-Fasting: <200 mg/dL (ADA 2005) Blood Urea Nitrogen (BUN) 84(H) 8 - 21 mg/dL 10/19/2024 1:00 PM [facility] Creatinine 4.8(H) 0.5 - 1.3 mg/dL 10/19/2024 1:00 PM [facility] eGFR 12(L) >59 10/19/2024 1:00 PM [facility] Comment:CKD-EPI (2020) in mL /min/1.73 sq meters. Sodium 142 136 - 145 mmol/L 10/19/2024 1:00 PM [facility] Potassium 4.3 3.4 - 5.3 mmol/L 10/19/2024 1:00 PM [facility] Chloride 110(H) 98 - 107 mmol/L 10/19/2024 1:00 PM [facility] CO2 14(L) 22 - 33 mmol/L 10/19/2024 1:00 PM [facility] Anion Gap 18(H) 7 - 17 10/19/2024 1:00 PM [facility] Calcium 7.0(L) 8.7 - 10.5 mg/dL 10/19/2024 1:00 PM [facility] BUN/Creatinine Ratio 18 10.0 - 25.0 Ratio 10/19/2024 1:00 PM [facility] Blood (Plasma/Serum) 10/19/2024 11:34 AM EST 10/19/2024 11:54 AM EST Pushpa Gallegos MD LAB BLOOD ORDERABLES Performing Organization Address [facility]/[place] [address], [place] [address] * (ABNORMAL) Blood Gas, Venous (10/19/2024 10:36 AM EST) Venous Blood PH 7.32(L) 7.33 - 7.43 10/19/2024 10:59 AM [facility] Venous pCO2 33(L) 35 - 50 mmHG 10/19/2024 10:59 AM [facility] Venous pO2 53 0 - 60 mmHG 10/19/2024 10:59 AM [facility] Venous Total CO2 18(L) 23 - 29 mmol/L 10/19/2024 10:59 AM [facility] Respiratory Info VM 50% 10/19/19 25 10:36 AM EST Base Deficiency 8.3 mmol/L 10:59 AM [facility] Comment:Reference Range: Neg ative 2 to Positive 3 Blood Blood specimen / Unknown 10/19/2024 10:36 AM EST 10/19/2024 10:56 AM EST Pushpa Gallegos MD LAB BLOOD ORDERABLES Performing Organization Address City/[facility]/ZIP Co de Phone Number [address] [address], [address] [address] * (ABNORMAL) POCT Glucose, Fingerstick (10/19/2024 10:34 AM EST) POC Glucose 131(H) 65 - 99 mg/dL 10/19/2024 10:34 AM EST Blood specimen / Unknown 10/19/2024 10:34 AM EST 10/19/2024 10:35 AM EST Fuad Winter MD POINT OF CARE TEST ORDERABLES Performing Organization Address [facility] LAB See Below * (ABNORMAL) POCT Glucose, Fingerstick (10/19/2024 9:08 AM EST) POC Glucose 146(H) 65 - 99 mg/dL 10/19/2024 9:08 AM EST Blood specimen / Unknown 10/19/2024 9:08 AM EST 10/19/2024 9:09 AM EST Fuad Winter MD POINT OF CARE TEST ORDERABLES Performing Organization Address [facility] LAB See Below * (ABNORMAL) POCT Glucose, Fingerstick (10/19/2024 7:58 AM EST) POC Glucose 118(H) 65 - 99 mg/dL 10/19/2024 8:00 AM EST Blood specimen / Unknown 10/19/2024 7:58 AM EST 10/19/2024 7:59 AM EST Fuad Winter MD POINT OF CARE TEST ORDERABLES Performing Organization Address [facility] LAB See Below * Heparin Assay (Anti [...] 7:44 AM EST 10/19/2024 8:19 AM EST Kristopher Hickey MD LAB BLOOD ORDERAB LES Performing Organization Address [facility]/[place] [address], [address] [address] * (ABNORMAL) Basic Metabolic Panel (10/19/2024 7:44 AM EST) Glucose 110(H) 65 - 99 mg/dL 10/19/2024 8:53 AM [facility] Comment:Fasting: <100 mg/dL, Non-Fasting: <200 mg/dL (ADA 2004) Blood Urea Nitrogen (BUN) 84(H) 8 - 21 mg/dL 10/19/2024 8:53 AM [facility] Creatinine 4.8(H) 0.5 - 1.3 mg/dL 10/19/2024 8:53 AM [facility] eGFR 12(L) >59 10/19/2024 8:53 AM [facility] Comment:CKD-EPI (2020) in mL /min/1.73 sq meters. Sodium 141 136 - 145 mmol/L 10/19/2024 8:53 AM [facility] Potassium 4.6 3.4 - 5.3 mmol/L 10/19/2024 8:53 AM [facility] Chloride 109(H) 98 - 107 mmol/L 10/19/2024 8:53 AM [facility] CO2 14(L) 22 - 33 mmol/L 10/19/2024 8:53 AM [facility] Anion Gap 18(H) 7 - 17 10/19/2024 8:53 AM [facility] Calcium 7.2(L) 8.7 - 10.5 mg/dL 10/19/2024 8:53 AM [facility] BUN/Creatinine Ratio 18 10.0 - 25.0 Ratio 10/19/2024 8:53 AM [facility] Blood (Plasma/Serum) 10/19/2024 7:44 AM EST 10/19/2024 8:19 AM EST Pushpa Gallegos MD LAB BLOOD ORDERABLES [address] [place] [address], [address] [address] * (ABNORMAL) POCT Glucose, Fingerstick (10/19/2024 6:38 AM EST) [facility] [address] POC Glucose 148(H) 65 - 99 mg/dL 10/19/2024 6:39 AM EST Blood specimen / Unknown 10/19/2024 6:38 AM EST 10/19/2024 6:39 AM EST Fuad Winter MD POINT OF CARE TEST ORDERABLES Performing Organization Address [facility] Co de Phone Number [facility] LAB See Below * (ABNORMAL) POCT Glucose, Fingerstick (10/19/2024 5:25 AM EST) [facility] [address] POC Glucose 169(H) 65 - 99 mg/dL 10/19/2024 5:29 AM EST Blood specimen / Unknown 10/19/2024 5:25 AM EST 10/19/2024 5:29 AM EST Fuad Winter MD POINT OF CARE TEST ORDERABLES Performing Organization Address [facility] Phone Number [facility] LAB See Below * (ABNORMAL) High Sensitivity Troponin T (10/19/2024 5:15 AM EST) [facility] [address] High Sensitivity Troponin T 4,239(HH) <23 ng/L 10/19/2024 7:11 AM [facility] Comment:Recurring Critical R esult. Previously phoned. Delta (Change) 2,409(H) <3 10/19/2024 7:11 AM [facility] Comment:Increased Blood (Plasma/Serum) 10/19/2024 5:15 AM EST 10/19/2024 6:04 AM EST Pushpa Gallegos MD LAB BLOOD ORDERABLES Performing Organization Address [facility] [place] [address], [place] [address] * (ABNORMAL) BASIC METABOLIC PANEL (10/19/2024 4:15 AM EST) Glucose 143(H) 65 - 99 mg/dL 10/19/2024 5:00 AM [facility] Comment:Fasting: <100 mg/dL, Non-Fasting: <200 mg/dL (ADA 2004) Blood Urea Nitrogen (BUN) 84(H) 8 - 21 mg/dL 10/19/2024 5:00 AM [facility] Creatinine 5.0(H) 0.5 - 1.3 mg/dL 10/19/2024 5:00 AM [facility] eGFR 11(L) >59 10/19/2024 5:00 AM [facility] Comment:CKD-EPI (2020) in mL /min/1.73 sq meters. Sodium 142 136 - 145 mmol/L 10/19/2024 5:00 AM [facility] Potassium 4.3 3.4 - 5.3 mmol/L 10/19/2024 5:00 AM [facility] Chloride 109(H) 98 - 107 mmol/L 10/19/2024 5:00 AM [facility] CO2 14(L) 22 - 33 mmol/L 10/19/2024 5:00 AM [facility] Anion Gap 19(H) 7 - 17 10/19/2024 5:00 AM [facility] Calcium 6.8(LL) 8.7 - 10.5 mg/dL 10/19/2024 5:00 AM [facility] BUN/Creatinine Ratio 17 10.0 - 25.0 Ratio 10/19/2024 5:00 AM [facility] Plasma/Serum 10/19/2024 4:15 AM EST 10/19/2024 4:25 AM EST Fuad Winter MD LAB BLOOD ORD ERABLES [facility] [address] [place] [address], [address] [address] * (ABNORMAL) POCT Glucose, Fingerstick (10/19/2024 4:14 AM EST) POC Glucose 154(H) 65 - 99 mg/dL 10/19/2024 4:15 AM EST Blood specimen / Unknown 10/19/2024 4:14 AM EST 10/19/2024 4:15 AM EST Fuad Winter MD POINT OF CARE TEST ORDERABLES Performing Organization Address [facility] Co nm Phone Number HOSPITAL LAB See Below * (ABNORMAL) POCT Glucose, Fingerstick (10/19/2024 2:45 AM EST) POC Glucose 192(H) 65 - 99 mg/dL 10/19/2024 2:46 AM EST Blood specimen / Unknown 10/19/2024 2:45 AM EST 10/19/2024 2:46 AM EST Fuad Winter MD POINT OF CARE TEST ORDERABLES Performing Organization Address [facility] Phone Number HOSPITAL LAB See Below * Heparin Assay (Anti Xa) (10/19/2024 1:54 AM EST) Pathologist [facility] [place] Anti Xa 0.25 IU/mL 10/19/2024 2:28 AM [...] LAB BLOOD ORDERAB LES Performing Organization Address City/[facility] [place] [address], [place] [address] * (ABNORMAL) POCT Glucose, Fingerstick (10/19/2024 1:35 AM EST) POC Glucose 160(H) 65 - 99 mg/dL 10/19/2024 1:36 AM EST Blood specimen / Unknown 10/19/2024 1:35 AM EST 10/19/2024 1:36 AM EST Fuad Winter MD POINT OF CARE TEST ORDERABLES Performing Organization Address City/[facility]/ZIP Co de Phone Number HOSPITAL LAB See Below * (ABNORMAL) Hemoglobin A1C with Estimated Average Glucose (10/19/2024 1:20 AM EST) Hemoglobin A1C 8.7(H) <5.7 % 10/19/2024 12:02 PM [facility] Comment: A1c% ? Interpretation 5.7 - 6.0 ?Increase risk of diabetes 6.1 - 6.4 ?Higher risk of diabetes > or = 6.5 ?? Consistent with diabetes Diabetes Care, 33(Supp 1):S1-S61, 2010 Estimated Average Glucose 203 mg/dL 10/19/2024 12:02 PM [facility] Blood specimen / Unknown 10/19/2024 1:20 AM EST 10/19/2024 2:17 AM EST Pushpa Gallegos MD LAB BLOOD ORDERABLES Performing Organization Address City/[facility]/[place] [address], [place] [address] * Phosphorus (Routine) (10/19/2024 1:20 AM EST) Phosphorus 4.2 2.7 - 4.5 mg/dL 10/19/2024 2:39 AM [facility] Blood (Plasma/Serum) 10/19/2024 1:20 AM EST 10/19/2024 2:17 AM EST Pushpa Gallegos MD [place] [address], [place] [address] * Magnesium (Routine) (10/19/2024 1:20 AM EST) Magnesium 1.7 1.6 - 2.7 mg/dL 10/19/2024 2:39 AM EST [facility] Blood (Plasma/Serum) 10/19/2024 1:20 AM EST 10/19/2024 2:17 AM EST Pushpa Gallegos MD LAB BLOOD ORDERABLES Performing Organization Address [facility] [place] [address], [place] [address] * (ABNORMAL) High Sensitivity Troponin T (Once) (10/19/2024 1:20 AM EST) [facility] [address] High Sensitivity Troponin T 4,171(HH) <23 ng/L 10/19/2024 2:39 AM [facility] Comment:Recurring Critical R esult. Previously phoned. Delta (Change) 2,341(H) <3 10/19/2024 2:39 AM [facility] Comment:Increased Blood (Plasma/Serum) 10/19/2024 1:20 AM EST 10/19/2024 2:17 AM EST Pushpa Gallegos MD LAB BLOOD ORDERABLES Performing Organization Address [facility] [place] [address], [place] [address] * (ABNORMAL) Complete Blood Count, WITHOUT Differential (routine) (10/19/2024 1:20 AM EST) [facility] [address] White Blood Cell Count 15.9(H) 4.0 - 11.0 Thou/uL 10/19/2024 2:31 AM [facility] Platelet Count 263 150 - 450 Thou/uL 10/19/2024 2:31 AM [facility] Hemoglobin 8.5(L) 13.0 - 17.7 g/dL 10/19/2024 2:31 AM [facility] Hematocrit 27.0(L) 39.0 - 54.0 % 10/19/2024 2:31 AM [facility] Red Blood Cell Count 2.78(L) 4.50 - 6.20 Mil/uL 10/19/2024 2:31 AM [facility] MCV 97 80 - 100 fL 10/19/2024 2:31 AM [facility] Comment:Significant change i n values noted, consider [...] MD LAB BLOOD ORDERABLES Performing Organization Address City/[facility]/[place] [address], [place] [address] * (ABNORMAL) POCT Glucose, Fingerstick (10/19/2024 12:16 AM EST) POC Glucose 106(H) 65 - 99 mg/dL 10/19/2024 12:17 AM EST Blood specimen / Unknown 10/19/2024 12:16 AM EST 10/19/2024 12:17 AM EST Fuad Winter MD POINT OF CARE TEST ORDERABLES HOSPITAL LAB See Below * ECG 12 lead (10/19/2024 12:02 AM EST) Systolic BP 128 mmHg EKG [facility] Diastolic BP 67 mmHg EKG [facility] Ventricular rate 86 BPM EKG [facility] Atrial rate 86 BPM EKG [facility] P-R interval 162 ms EKG [facility] QRS duration 78 ms EKG [facility] Q-T interval 372 ms EKG [facility] QTC calculation (Bazett) 445 ms EKG [facility] P axis 42 degrees EKG [facility] R axis 60 degrees EKG [facility] T axis 224 degrees EKG [facility] 10/19/2024 12:0 2 AM EST Narrative EKG [facility] - 10/19/2024 5:46 AM EST Normal sinus rhythm Early Transition Nonspecific ST and T wave abnormality Abnormal ECG Confirmed by MD Wade John ([id number]) on 10/19/2024 5:46:29 AM Procedure Note Raciel Wade MD - 10/19/2024 Normal sinus rhythm Early Transition Nonspecific ST and T wave abnormality Abnormal ECG Confirmed by MD Wade John ([id number]) on 10/19/2024 5:46:29 AM Fuad Winter MD ECG ORDERABLE S Performing Organization Address City/[facility]/ZIP Co de Phone Number [facility] * (ABNORMAL) POCT Glucose, Fingerstick (10/18/2024 11:22 PM EST) POC Glucose 117(H) 65 - 99 mg/dL 10/18/2024 11:23 PM EST Blood specimen / Unknown 10/18/2024 11:22 PM EST 10/18/2024 11:23 PM EST Fuad Winter MD POINT OF CARE TEST ORDERABLES HOSPITAL LAB See Below * (ABNORMAL) BASIC METABOLIC PANEL (10/18/2024 11:11 PM EST) Glucose 103(H) 65 - 99 mg/dL 10/19/2024 12:51 AM [facility] Comment:Fasting: <100 mg/dL, Non-Fasting: <200 mg/dL (ADA 2005) Blood Urea Nitrogen (BUN) 88(H) 8 - 21 mg/dL 10/19/2024 12:51 AM [facility] Creatinine 5.0(H) 0.5 - 1.3 mg/dL 10/19/2024 12:51 AM [facility] eGFR 11(L) >59 10/19/2024 12:51 AM [facility] Comment:CKD-EPI (2020) in mL /min/1.73 sq meters. Sodium 143 136 - 145 mmol/L 10/19/2024 12:51 AM [facility] Potassium 4.4 3.4 - 5.3 mmol/L 10/19/2024 12:51 AM [facility] Chloride 110(H) 98 - 107 mmol/L 10/19/2024 12:51 AM [facility] CO2 13(L) 22 - 33 mmol/L 10/19/2024 12:51 AM [facility] Anion Gap 20(H) 7 - 17 10/19/2024 12:51 AM [facility] Calcium 7.0(L) 8.7 - 10.5 mg/dL 10/19/2024 12:51 AM [facility] BUN/Creatinine Ratio 18 10.0 - 25.0 Ratio 10/19/2024 12:51 AM [facility] Plasma/Serum 10/18/2024 11:1 1 PM EST 10/18/2024 11:48 PM EST Fuad Winter MD [place] [address], [place] [address] * (ABNORMAL) Blood Gas, Venous (10/18/2024 11:11 PM EST) Venous Blood PH 7.35 7.33 - 7.43 10/18/2024 11:50 PM [facility] Venous pCO2 27(L) 35 - 50 mmHG 10/18/2024 11:50 PM [facility] Venous pO2 185(H) 0 - 60 mmHG 10/18/2024 11:50 PM [facility] Venous Total CO2 15(L) 23 - 29 mmol/L 10/18/2024 11:50 PM [facility] Respiratory Info VM 50% 10/18/19 25 5:04 PM EST Base Deficiency 9.7 mmol/L 11:50 PM [facility] Comment:Reference Range: Neg ative 2 to Positive 3 Blood Blood specimen / Unknown 10/18/2024 11:11 PM EST 10/18/2024 11:45 PM EST Pushpa Gallegos MD [place] [address], [address] [address] * (ABNORMAL) BASIC METABOLIC PANEL (10/18/2024 10:15 PM EST) Glucose 113(H) 65 - 99 mg/dL 10/18/2024 10:59 PM [facility] Comment:Fasting: <100 mg/dL, Non-Fasting: <200 mg/dL (ADA 2004) Blood Urea Nitrogen (BUN) 91(H) 8 - 21 mg/dL 10/18/2024 10:59 PM [facility] Creatinine 5.2(H) 0.5 - 1.3 mg/dL 10/18/2024 10:59 PM [facility] eGFR 11(L) >59 10/18/2024 10:59 PM [facility] Comment:CKD-EPI (2020) in mL /min/1.73 sq meters. Sodium 145 136 - 145 mmol/L 10/18/2024 10:59 PM [facility] Potassium 4.2 3.4 - 5.3 mmol/L 10/18/2024 10:59 PM [facility] Chloride 111(H) 98 - 107 mmol/L 10/18/2024 10:59 PM [facility] CO2 14(L) 22 - 33 mmol/L 10/18/2024 10:59 PM [facility] Anion Gap 20(H) 7 - 17 10/18/2024 10:59 PM [facility] Calcium 7.3(L) 8.7 - 10.5 mg/dL 10/18/2024 10:59 PM [facility] BUN/Creatinine Ratio 18 10.0 - 25.0 Ratio 10/18/2024 10:59 PM [facility] Plasma/Serum 10/18/2024 10:1 5 PM EST 10/18/2024 10:21 PM EST Fuad Winter MD LAB [place] [address], [place] [address] * Lactic Acid, Plasma (Routine) (10/18/2024 10:13 PM EST) Lactic Acid 1.2 0.5 - 1.9 mmol/L 10/18/2024 10:56 PM EST [facility] Blood Plasma specimen / Unknown 10/18/2024 10:13 PM EST 10/18/2024 10:21 PM EST Pushpa Gallegos MD [place] [address], [place] [address] * (ABNORMAL) POCT Glucose, Fingerstick (10/18/2024 10:06 PM EST) POC Glucose 123(H) 65 - 99 mg/dL [...] OF CARE TEST ORDERABLES Performing Organization Address [facility] Number [facility] See Below * (ABNORMAL) POCT Glucose, Fingerstick (10/18/2024 8:16 PM EST) Pathologist [facility] [place] POC Glucose 168(H) 65 - 99 mg/dL 10/18/2024 8:17 PM EST Blood specimen / Unknown 10/18/2024 8:16 PM EST 10/18/2024 8:17 PM EST Fuad Winter MD POINT OF CARE TEST ORDERABLES Performing Organization Address [facility] [place] Phone Number [facility] See Below * (ABNORMAL) Blood Gas, Venous (10/18/2024 7:14 PM EST) Pathologist [facility] [place] Venous Blood PH 7.31(L) 7.33 - 7.43 [...] EST Base Deficiency 9.7 mmol/L 7:25 PM [facility] Comment:Reference Range: Neg ative 2 to Positive 3 Blood Blood specimen / Unknown 10/18/2024 7:14 PM EST 10/18/2024 7:21 PM EST Pushpa Gallegos MD [place] [address], [address] [address] * (ABNORMAL) Basic Metabolic Panel (10/18/2024 7:14 PM EST) Glucose 154(H) 65 - 99 mg/dL 10/18/2024 7:55 PM [facility] Comment:Fasting: <100 mg/dL, Non-Fasting: <200 mg/dL (ADA 2004) Blood Urea Nitrogen (BUN) 87(H) 8 - 21 mg/dL 10/18/2024 7:55 PM [facility] Creatinine 5.1(H) 0.5 - 1.3 mg/dL 10/18/2024 7:55 PM [facility] eGFR 11(L) >59 10/18/2024 7:55 PM [facility] Comment:CKD-EPI (2020) in mL /min/1.73 sq meters. Sodium 144 136 - 145 mmol/L 10/18/2024 7:55 PM [facility] Potassium 4.7 3.4 - 5.3 mmol/L 10/18/2024 7:55 PM [facility] Chloride 110(H) 98 - 107 mmol/L 10/18/2024 7:55 PM [facility] CO2 14(L) 22 - 33 mmol/L 10/18/2024 7:55 PM [facility] Anion Gap 20(H) 7 - 17 10/18/2024 7:55 PM [facility] Calcium 7.0(L) 8.7 - 10.5 mg/dL 10/18/2024 7:55 PM [facility] BUN/Creatinine Ratio 17 10.0 - 25.0 Ratio 10/18/2024 7:55 PM EST [facility] Blood (Plasma/Serum) 10/18/2024 7:14 PM EST 10/18/2024 7:22 PM EST Fuad Winter MD LAB BLOOD ORD ERABLES [address] [address], [address] [address] * (ABNORMAL) POCT Glucose, Fingerstick (10/18/2024 7:13 PM EST) POC Glucose 166(H) 65 - 99 mg/dL 10/18/2024 7:15 PM EST Blood specimen / Unknown 10/18/2024 7:13 PM EST 10/18/2024 7:15 PM EST Fuad Winter MD POINT OF CARE TEST ORDERABLES Performing Organization Address City/[facility] Co de Phone Number HOSPITAL LAB [...] Sample left with bedside RN. ACCESS: 6 American Pzzc-G-Csqdvubc closed needle/catheter system ?? REQUESTING PRACTITIONER: Cheryl [...] adjacent organs or vascular structures. A 6 American Zlwh-Y-Jxlbpeme closed needle/catheter system was utilized for access. [...] adjacent organs or vascular structures. A 6 American Witn-H-Opfslmcb closed needle/catheter system was utilized for access. 550 mL of clear devorah fluid was aspirated before drainage ceased. The catheter was removed and a sterile dressing applied. The patient tolerated the procedure well without evidence of complications. ?? Pushpa Gallegos MD [facility] ORDERABLES * (ABNORMAL) POCT Glucose, Fingerstick (10/18/2024 [...] Fuad Winter MD MICROBIOLOGY - GENERAL ORDERABLES [facility] [address] [employer] [address] * Body Fluid Culture (aerobic, anaerobic and Gram stain) (10/18/2024 5:55 PM EST) Gram stain suggestive of Few neutrophils Mononuclear cells No organisms seen 10/18/2024 9:52 PM EST [facility] Culture No aerobes and anaerobes isolated after 7 days 10/25/2024 3:19 PM [facility] 10/18/2024 5:55 PM EST 10/18/2024 7:53 PM EST Fuad Winter MD MICROBIOLOGY - GENERAL ORDERABLES Performing Organization Address City/[facility] Co de Phone Number [facility] [address] [place] [address], [address] [address] * Protein, Body Fluid (10/18/2024 5:50 PM EST) Source RIGHT PLEURAL EFFUSION 10/18/2024 6:49 PM EST [facility] Protein, Body Fluid 2.2 g/dL 10/18/2024 7:15 PM EST [facility] Comment:The reference interv al(s) and other method performance specifications are unavailable for this body fluid. Comparison of this result with the concentration in the blood, serum, or plasma is recommended. 10/18/2024 5:50 PM EST 10/18/2024 6:49 PM EST Fuad Winter MD BODY FLUIDS A ND STOOLS ORDERABLES Performing Organization Address [facility] [place] [address], [place] [address] * PH, BODY FLUID (10/18/2024 5:50 PM EST) Source RIGHT PLEURAL EFFUSION 10/18/2024 6:49 PM EST [facility] pH, Body Fluid 7.34 10/18/2024 7:14 PM EST [facility] 10/18/2024 5:50 PM EST 10/18/2024 6:49 PM EST Fuad Winter MD BODY FLUIDS A ND STOOLS ORDERABLES Performing Organization Address [facility] [place] [address], [place] [address] * Glucose, Body Fluid (10/18/2024 5:50 PM [...] ND STOOLS ORDERABLES Performing Organization Address [facility] [place] [address], [place] [address] * Cell Count, Reflex Differential, Body Fluid (10/18/2024 5:50 PM EST) Appearance, Body Fluid Cloudy 10/18/2024 8:25 PM [facility] Color Percy 10/18/2024 8:25 PM [facility] Nucleated Cells, Fluid 435 /CUMM 10/18/2024 8:24 PM [facility] RBC, Fluid 11,000 /CUMM 10/18/2024 8:24 PM [facility] Neutrophil, Body Fluid 3 % 10/18/2024 8:25 PM [facility] Lymphoctye, Body Fluid 27 % 10/18/2024 8:25 PM [facility] Monocyte, Body Fluid 21 % 10/18/2024 8:25 PM [facility] Histiocyte, Body Fluid 46 % 10/18/2024 8:25 PM [facility] Mesothelial, Body Fluid 3 % 10/18/2024 8:25 PM [facility] Smear Comment, Body Fluid The reference interval and other method performance specifications are unavailable for this body fluid. Comparison of the result with concentration in the blood, serum, or plasma is recommended 10/18/2024 8:25 PM [facility] 10/18/2024 5:50 PM EST 10/18/2024 6:49 PM EST Fuad Winter MD BODY FLUIDS [place] [address], [place] [address] * Culture - Pleural Fluid (aerobic, anaerobic and Gram stain) (10/18/2024 5:40 PM EST) Special Requests Limited quantity of fluid received, results may be impacted. 10/19/2024 9:03 AM [facility] Gram stain suggestive of Few neutrophils Mononuclear cells No organisms seen 10/18/2024 9:59 PM [facility] Culture No aerobes and anaerobes isolated after 7 days 10/25/2024 3:19 PM [facility] Microbiology Specimen from pleura obtained by thoracentesis / Unknown 10/18/2024 5:40 PM EST 10/18/2024 7:48 PM EST Pushpa Gallegos MD MICROBIOLOGY - GENER AL ORDERABLES Performing Organization Address [facility] Co de Phone Number [facility] [address] [place] [address], [place] [address] * Protein - Pleural Fluid (10/18/2024 5:39 [...] AND STOO LS ORDERABLES Performing Organization Address [facility] [place] [address], [place] [address] * pH - Pleural Fluid (not avail at [place]) (10/18/2024 5:39 PM EST) Source PLEURAL 10/18/2024 5:40 PM EST pH, Body Fluid 7.33 10/18/2024 7:15 PM EST [facility] Body Fluid Specimen from pleura obtained by thoracentesis / Unknown 10/18/2024 5:39 PM EST 10/18/2024 6:57 PM EST Pushpa Gallegos MD BODY FLUIDS AND STOO LS ORDERABLES Performing Organization Address [facility] [place] [address], [place] [address] * LDH - Pleural Fluid (10/18/2024 5:39 [...] AND STOO LS ORDERABLES Performing Organization Address [facility] [place] [address], [place] [address] * Glucose - Pleural Fluid (10/18/2024 5:39 PM EST) Source PLEURAL 10/18/2024 5:40 PM EST Glucose, Body Fluid 146 mg/dL 10/18/2024 7:27 PM [facility] Comment:The reference interv al(s) and other method performance specifications are unavailable for this body fluid. Comparison of this result with the concentration in the blood, serum, or plasma is recommended. Specimen from pleura obtained by thoracentesis / Unknown 10/18/2024 5:39 PM EST 10/18/2024 6:57 PM EST Pushpa Gallegos MD BODY FLUIDS AND STOO LS ORDERABLES Performing Organization Address [facility] [place] [address], [place] [address] * Cell Count, Reflex Differential, Body Fluid (10/18/2024 5:39 PM EST) Appearance, Body Fluid Cloudy 10/18/2024 8:22 PM EST [facility] Color Percy 10/18/2024 8:22 PM [facility] Nucleated Cells, Fluid 721 /CUMM 10/18/2024 8:22 PM [facility] RBC, Fluid 10,000 /CUMM 10/18/2024 8:22 PM [facility] Neutrophil, Body Fluid 0 % 10/18/2024 8:22 PM EST [facility] Lymphoctye, Body Fluid 57 % 10/18/2024 8:22 PM [facility] Monocyte, Body Fluid 15 % 10/18/2024 8:22 PM [facility] Histiocyte, Body Fluid 27 % 10/18/2024 8:22 PM [facility] Basophil, Body Fluid 1 % 10/18/2024 8:22 PM [facility] Smear Comment, Body Fluid The reference interval and other method performance specifications are unavailable for this body fluid. Comparison of the result with concentration in the blood, serum, or plasma is recommended 10/18/2024 8:22 PM [facility] Specimen from pleura obtained by thoracentesis / Unknown 10/18/2024 5:39 PM EST 10/18/2024 6:57 PM EST Pushpa Gallegos MD BODY FLUIDS [place] [address], [place] [address] * (ABNORMAL) POCT Glucose, Fingerstick (10/18/2024 5:04 PM EST) POC Glucose 119(H) 65 - 99 mg/dL 10/18/2024 6:07 PM EST Blood specimen / Unknown 10/18/2024 5:04 PM EST 10/18/2024 6:07 PM EST Fuad Winter MD POINT OF CARE TEST ORDERABLES HOSPITAL LAB See Below * (ABNORMAL) B-Hydroxybutyrate (10/18/2024 5:04 PM EST) B-Hydroxybutyrate 0.45(H) <0.28 mmol/L 10/18/2024 6:44 PM [facility] Comment: In the presence of uncontrolled [...] LAB BLOOD ORD ERABLES Performing Organization Address [facility] [place] [address], [place] [address] * (ABNORMAL) Blood Gas, Venous (10/18/2024 5:04 PM EST) Venous Blood PH 7.32(L) 7.33 - 7.43 10/18/2024 5:27 PM [facility] Venous pCO2 31(L) 35 - 50 mmHG 10/18/2024 5:27 PM [facility] Venous pO2 131(H) 0 - 60 mmHG 10/18/2024 5:27 PM [facility] Venous Total CO2 17(L) 23 - 29 mmol/L 10/18/2024 5:27 PM [facility] Respiratory Info NASAL 6 L/MIN 10/18/2024 3:04 PM EST Base Deficiency 9.2 mmol/L 5:27 PM [facility] Comment:Reference Range: Neg ative 2 to Positive 3 Blood Blood specimen / Unknown 10/18/2024 5:04 PM EST 10/18/2024 5:13 PM EST Pushpa Gallegos MD LAB BLOOD ORDERABLES Performing Organization Address [facility]/[place] [address], [place] [address] * Heparin Assay (Anti Xa) (10/18/2024 5:04 PM EST) Anti Xa 0.23 IU/mL 10/18/2024 6:17 PM [facility] Comment: (NOTE) Heparin Thromboembolic/Standard/Full Dose Protocol: [...] PM EST 10/18/2024 6:04 PM EST Pushpa Gallegos MD LAB BLOOD ORDERABLES Performing Organization Address [facility]/ZIP Co de Phone Number [address] [address], [address] [address] * (ABNORMAL) Basic Metabolic Panel (10/18/2024 5:04 PM EST) Glucose 112(H) 65 - 99 mg/dL 10/18/2024 6:44 PM [facility] Comment:Fasting: <100 mg/dL, Non-Fasting: <200 mg/dL (ADA 2004) Blood Urea Nitrogen (BUN) 85(H) 8 - 21 mg/dL 10/18/2024 6:44 PM [facility] Creatinine 5.2(H) 0.5 - 1.3 mg/dL 10/18/2024 6:44 PM [facility] eGFR 11(L) >59 10/18/2024 6:44 PM [facility] Comment:CKD-EPI (2020) in mL /min/1.73 sq meters. Sodium 145 136 - 145 mmol/L 10/18/2024 6:44 PM [facility] Potassium 4.4 3.4 - 5.3 mmol/L 10/18/2024 6:44 PM [facility] Chloride 110(H) 98 - 107 mmol/L 10/18/2024 6:44 PM [facility] CO2 15(L) 22 - 33 mmol/L 10/18/2024 6:44 PM [facility] Anion Gap 20(H) 7 - 17 10/18/2024 6:44 PM [facility] Calcium 7.1(L) 8.7 - 10.5 mg/dL 10/18/2024 6:44 PM [facility] BUN/Creatinine Ratio 16 10.0 - 25.0 Ratio 10/18/2024 6:44 PM [facility] Blood (Plasma/Serum) 10/18/2024 5:04 PM EST 10/18/2024 6:04 PM EST Fuad Winter MD LAB BLOOD ORD ERABLES [address] [address], [address] [place] [address] * XR Chest 1 view-Portable (10/18/2024 4:14 PM EST) Anatomical Region Laterality Modality Chest Computed Radiogr aphy 10/18/2024 3:54 PM EST Impressions 10/19/2024 2:34 PM EST 1. ??Interval worsening of now moderate pulmonary edema. Superimposed infectious/inflammatory process cannot be entirely excluded. 2. ??Trace bilateral pleural effusions unchanged. Interpreted by: ??Mitchell Ascencio DO [employer] I personally reviewed the images and the [...] effusions unchanged. Interpreted by: Mitchell Ascencio DO [employer] Service Waiter I personally reviewed the images and the [...] OF CARE TEST ORDERABLES Performing Organization Address [facility] Number [facility] See Below * (ABNORMAL) POCT Glucose, Fingerstick (10/18/2024 2:44 PM EST) POC Glucose 105(H) 65 - 99 mg/dL 10/18/2024 2:49 PM EST Blood specimen / Unknown 10/18/2024 2:44 PM EST 10/18/2024 2:48 PM EST Fuad Winter MD POINT OF CARE TEST ORDERABLES Performing Organization Address [facility] Number [facility] See Below * POCT Glucose, Fingerstick (10/18/2024 1:44 PM EST) POC Glucose 92 65 - 99 mg/dL 10/18/2024 1:45 PM EST Blood specimen / Unknown 10/18/2024 1:44 PM EST 10/18/2024 1:45 PM EST Fuad Winter MD POINT OF CARE TEST ORDERABLES Performing Organization Address [facility] Number [facility] See Below * (ABNORMAL) POCT Glucose, Fingerstick (10/18/2024 1:24 PM EST) POC Glucose 102(H) 65 - 99 mg/dL 10/18/2024 1:44 PM EST Blood specimen / Unknown 10/18/2024 1:24 PM EST 10/18/2024 1:44 PM EST Fuad Winter MD POINT OF CARE TEST ORDERABLES Performing Organization Address [facility]/State/ZIP Co de Phone Number HOSPITAL LAB See Below * (ABNORMAL) POCT Glucose, Fingerstick (10/18/2024 12:19 PM EST) POC Glucose 160(H) 65 - 99 [...] system. ?Dr. Pushpa Gallegos was notified by [place] text at 12:36 PM. Technical Details Definity [...] 65 - 99 mg/dL 10/18/2024 12:14 PM [facility] Comment:Fasting: <100 mg/dL, Non-Fasting: <200 mg/dL (ADA 2004) Blood Urea Nitrogen (BUN) 84(H) 8 - 21 mg/dL 10/18/2024 12:14 PM [facility] Creatinine 5.0(H) 0.5 - 1.3 mg/dL 10/18/2024 12:14 PM [facility] eGFR 11(L) >59 10/18/2024 12:14 PM [facility] Comment:CKD-EPI (2020) in mL /min/1.73 sq meters. Sodium 145 136 - 145 mmol/L 10/18/2024 12:14 PM [facility] Potassium 4.2 3.4 - 5.3 mmol/L 10/18/2024 12:14 PM [facility] Chloride 111(H) 98 - 107 mmol/L 10/18/2024 12:14 PM [facility] CO2 14(L) 22 - 33 mmol/L 10/18/2024 12:14 PM [facility] Anion Gap 20(H) 7 - 17 10/18/2024 12:14 PM [facility] Calcium 7.1(L) 8.7 - 10.5 mg/dL 10/18/2024 12:14 PM [facility] BUN/Creatinine Ratio 17 10.0 - 25.0 Ratio 10/18/2024 12:14 PM [facility] Blood (Plasma/Serum) 10/18/2024 11:25 AM EST 10/18/2024 11:49 AM EST Fuad Winter MD LAB BLOOD ORD ERABLES Performing Organization Address [facility] Phone Number [facility] [address] [place] [address], [address] [address] * (ABNORMAL) POCT Glucose, Fingerstick (10/18/2024 11:19 AM EST) POC Glucose 215(H) 65 - 99 mg/dL 10/18/2024 11:22 AM EST Blood specimen / Unknown 10/18/2024 11:19 AM EST 10/18/2024 11:22 AM EST Fuad Winter MD POINT OF CARE TEST ORDERABLES Performing Organization Address [facility] Phone Number [facility] See Below * (ABNORMAL) POCT Glucose, Fingerstick (10/18/2024 10:16 AM EST) POC Glucose 289(H) 65 - 99 mg/dL 10/18/2024 10:17 AM EST Blood specimen / Unknown 10/18/2024 10:16 AM EST 10/18/2024 10:17 AM EST Fuad Winter MD POINT OF CARE TEST ORDERABLES Performing Organization Address [facility] Phone Number [facility] See Below * Heparin Assay [...] MD LAB BLOOD ORDERABLES Performing Organization Address [facility]/State/[facility] Co de Phone Number [facility] [address] [place] [address], [facility] [address] [place] [address] * (ABNORMAL) Basic Metabolic Panel (10/18/2024 9:57 AM EST) Glucose 304(H) 65 - 99 mg/dL 10/18/2024 10:35 AM [facility] Comment:Fasting: <100 mg/dL, Non-Fasting: <200 mg/dL (ADA 2004) Blood Urea Nitrogen (BUN) 87(H) 8 - 21 mg/dL 10/18/2024 10:35 AM [facility] Creatinine 5.0(H) 0.5 - 1.3 mg/dL 10/18/2024 10:35 AM [facility] eGFR 11(L) >59 10/18/2024 10:35 AM [facility] Comment:CKD-EPI (2020) in mL /min/1.73 sq meters. Sodium 142 136 - 145 mmol/L 10/18/2024 10:35 AM [facility] Potassium 4.3 3.4 - 5.3 mmol/L 10/18/2024 10:35 AM [facility] Chloride 108(H) 98 - 107 mmol/L 10/18/2024 10:35 AM [facility] CO2 13(L) 22 - 33 mmol/L 10/18/2024 10:35 AM [facility] Anion Gap 21(H) 7 - 17 10/18/2024 10:35 AM [facility] Calcium 7.2(L) 8.7 - 10.5 mg/dL 10/18/2024 10:35 AM [facility] BUN/Creatinine Ratio 17 10.0 - 25.0 Ratio 10/18/2024 10:35 AM [facility] Blood (Plasma/Serum) 10/18/2024 9:57 AM EST 10/18/2024 10:10 AM EST Fuad Winter MD LAB BLOOD ORD ERABLES [address] [address], [address] [address] * (ABNORMAL) POCT Glucose, Fingerstick (10/18/2024 9:39 AM EST) POC Glucose 324(H) 65 - 99 mg/dL 10/18/2024 9:40 AM EST Blood specimen / Unknown 10/18/2024 9:39 AM EST 10/18/2024 9:40 AM EST Fuad Winter MD POINT OF CARE TEST ORDERABLES Performing Organization Address [facility] LAB See Below * (ABNORMAL) POCT Glucose, Fingerstick (10/18/2024 8:34 AM EST) POC Glucose 443(H) 65 - 99 mg/dL 10/18/2024 8:35 AM EST Blood specimen / Unknown 10/18/2024 8:34 AM EST 10/18/2024 8:35 AM EST Fuad Winter MD POINT OF CARE TEST ORDERABLES Performing Organization Address [facility] LAB See Below * (ABNORMAL) POCT Glucose, Fingerstick (10/18/2024 7:31 AM EST) POC Glucose 461(H) 65 - 99 mg/dL 10/18/2024 7:33 AM EST Blood specimen / Unknown 10/18/2024 7:31 AM EST 10/18/2024 7:33 AM EST Fuad Winter MD POINT OF CARE TEST ORDERABLES Performing Organization Address [facility] LAB See Below * (ABNORMAL) BASIC METABOLIC PANEL (10/18/2024 7:25 AM EST) Glucose 476(HH) 65 - 99 mg/dL 10/18/2024 8:03 AM [facility] Comment:Fasting: <100 mg/dL, Non-Fasting: <200 mg/dL (ADA 2005) Blood Urea Nitrogen (BUN) 84(H) 8 - 21 mg/dL 10/18/2024 8:03 AM [facility] Creatinine 5.0(H) 0.5 - 1.3 mg/dL 10/18/2024 8:03 AM [facility] eGFR 11(L) >59 10/18/2024 8:03 AM [facility] Comment:CKD-EPI (2020) in mL /min/1.73 sq meters. Sodium 139 136 - 145 mmol/L 10/18/2024 8:03 AM [facility] Potassium 4.5 3.4 - 5.3 mmol/L 10/18/2024 8:03 AM [facility] Chloride 106 98 - 107 mmol/L 10/18/2024 8:03 AM [facility] CO2 12(LL) 22 - 33 mmol/L 10/18/2024 8:03 AM [facility] Anion Gap 21(H) 7 - 17 10/18/2024 8:03 AM [facility] Calcium 6.6(LL) 8.7 - 10.5 mg/dL 10/18/2024 8:03 AM [facility] BUN/Creatinine Ratio 17 10.0 - 25.0 Ratio 10/18/2024 8:03 AM [facility] Plasma/Serum 10/18/2024 7:25 AM EST 10/18/2024 7:33 AM EST Fuad Winter MD [place] [address], [place] [address] * (ABNORMAL) Troponin T, High Sensitivity - STAT and in 1 hour (10/18/2024 7:25 AM EST) High Sensitivity Troponin T 2,403(HH) <23 ng/L 10/18/2024 8:03 AM [facility] Comment:Recurring Critical R esult. Previously phoned. Delta (Change) 573(H) <3 10/18/2024 8:03 AM [facility] Comment:Increased Blood (Plasma/Serum) 10/18/2024 7:25 AM EST 10/18/2024 7:33 AM EST Fuad Winter MD [place] [address], [facility] [address] [place] [address] * (ABNORMAL) POCT Glucose, Fingerstick (10/18/2024 6:28 [...] atelectasis, respectively. Interpreted by: ??Prem Coffman MD [employer] Service Waiter I personally reviewed the images and the [...] atelectasis, respectively. Interpreted by: Prem Coffman MD Silver Service Waiter I personally reviewed the images and the resident's preliminary report and AGREE with the report as it is now presented ([id number]). Fuad Winter MD IMG DIAGNOSTI C IMAGING ORDERABLES * ECG 12 lead (10/18/2024 5:28 AM EST) Ventricular rate 89 BPM EKG [facility] QRS duration 88 ms [facility] Q-T interval 366 ms [facility] QTC calculation (Bazett) 446 ms EKG [facility] R axis 36 degrees EKG [facility] T axis 184 degrees EKG [facility] 10/18/2024 5:28 AM EST Narrative G [facility] - 10/18/2024 9:43 AM EST Normal sinus rhythm ST & T wave abnormality, consider lateral ischemia Abnormal ECG No previous ECGs available Confirmed by MD Ortiz Daniel ([id number]) on 10/18/2024 9:42:59 AM Procedure Note Alonso Ortiz MD - 10/18/[address] & T wave abnormality, consider lateral ischemia Abnormal ECG No previous ECGs available Confirmed by MD Ortiz Daniel ([id number]) on 10/18/2024 9:42:59 AM Fuad Winter MD ECG ORDERABLE S [facility] * (ABNORMAL) POCT Glucose, Fingerstick (10/18/2024 5:24 AM EST) [facility] [address] POC Glucose >500(H) 65 - 99 mg/dL 10/18/2024 5:25 AM EST Blood specimen / Unknown 10/18/2024 5:24 AM EST 10/18/2024 5:25 AM EST Fuad Winter MD POINT OF CARE TEST ORDERABLES HOSPITAL LAB See Below * Heparin Assay (Anti-Xa) (10/18/2024 5:16 AM EST) [facility] [address] Anti Xa 0.72 IU/mL 10/18/2024 5:58 AM [...] LAB BLOOD ORD ERABLES Performing Organization Address City/[facility]/[place] [address], [place] [address] * (ABNORMAL) Partial Thromboplastin Time (PTT) (10/18/2024 5:16 AM EST) Anticoagulant IV HEPARIN, UNFRACTIONATED 10/18/2024 5:18 AM EST Partial Thromboplastin Time (PTT) 68(H) 25 - 36 seconds 10/18/2024 5:58 AM EST [facility] Blood Plasma specimen / Unknown 10/18/2024 5:16 AM EST 10/18/2024 5:42 AM EST Fuad Winter MD LAB BLOOD ORD ERABLES Performing Organization Address City/[facility]/[place] [address], [place] [address] * (ABNORMAL) Protime-INR (10/18/2024 5:16 AM EST) Anticoagulant IV HEPARIN, UNFRACTIONATED 10/18/2024 5:18 AM EST Prothrombin Time (PT) 13.9(H) 10.0 - 13.5 seconds 10/18/2024 5:58 AM [facility] INR 1.2 10/18/2024 5:58 AM [facility] Comment:INR Therapeutic Rang es: Standard dose anticoagulant 2.0 to 3.0, High dose anticoagulant 2.5-3.5. Blood Plasma specimen / Unknown 10/18/2024 5:16 AM EST 10/18/2024 5:42 AM EST Fuad Winter MD LAB BLOOD ORD ERABLES Performing Organization Address City/[facility]/[place] [address], [place] [address] * (ABNORMAL) proBNP, N-terminal (BNP) (10/18/2024 5:16 AM EST) proBNP, N-terminal >70,000(H) <450 pg/mL 10/18/2024 7:21 AM [facility] Blood Plasma specimen / Unknown 10/18/2024 5:16 AM EST 10/18/2024 5:42 AM EST Fuad Winter MD LAB BLOOD ORD ERABLES Performing Organization Address City/[facility]/[place] [address], [place] [address] * (ABNORMAL) B-Hydroxybutyrate (10/18/2024 5:16 AM EST) B-Hydroxybutyrate 3.63(H) <0.28 mmol/L 10/18/2024 6:38 AM [facility] Comment: In the presence of uncontrolled [...] LAB BLOOD ORD ERABLES Performing Organization Address [facility] [facility] [place] [address], [place] [address] * (ABNORMAL) Osmolality (10/18/2024 5:16 AM EST) Osmolality, Serum/Plasma 359(H) 285 - 295 mOsm/Kg 10/18/2024 6:43 AM [facility] Blood (Plasma/Serum) 10/18/2024 5:16 AM EST 10/18/2024 5:42 AM EST Fuad Winter MD LAB BLOOD ORD ERABLES Performing Organization Address [facility] [place] [address], [place] [address] * (ABNORMAL) Blood Gas, Venous (10/18/2024 5:16 AM EST) [facility] [address] Venous Blood PH 7.18(LL) 7.33 - 7.43 10/18/2024 5:55 AM [facility] Comment:Test results repeate d. Venous pCO2 27(L) 35 - 50 mmHG 10/18/2024 5:55 AM [facility] Venous pO2 78(H) 0 - 60 mmHG 10/18/2024 5:55 AM [facility] Venous Total CO2 11(L) 23 - 29 mmol/L 10/18/2024 5:55 AM [facility] Respiratory Info NASAL 5 L/MIN 10/18/2024 5:17 AM EST Base Deficiency 17.1 mmol/L 5:55 AM [facility] Comment:Reference Range: Neg ative 2 to Positive 3 Blood Blood specimen / Unknown 10/18/2024 5:16 AM EST 10/18/2024 5:40 AM EST Fuad Winter MD LAB BLOOD ORD ERABLES [facility] [address] [place] [address], [facility] [address] [place] [address] * (ABNORMAL) Complete Blood Count, with Differential (10/18/2024 5:16 AM [facility]) White Blood Cell Count 11.5(H) 4.0 - 11.0 Thou/uL 10/18/2024 5:48 AM [facility] Platelet Count 265 150 - 450 Thou/uL 10/18/2024 5:48 AM [facility] Hemoglobin 8.5(L) 13.0 - 17.7 g/dL 10/18/2024 5:48 AM [facility] Hematocrit 27.7(L) 39.0 - 54.0 % 10/18/2024 5:48 AM [facility] Red Blood Cell Count 2.72(L) 4.50 - 6.20 Mil/uL 10/18/2024 5:48 AM [facility] MCV 102(H) 80 - 100 fL 10/18/2024 5:48 AM [facility] MCH 31.3(H) 27.0 - 31.0 pg 10/18/2024 5:48 AM [facility] MCHC 30.7 30.0 - 36.0 g/dL 10/18/2024 5:48 AM [facility] RDW 16.4(H) 11.5 - 14.5 % 10/18/2024 5:48 AM [facility] MPV 11.3 7.5 - 12.5 fL 10/18/2024 5:48 AM [facility] Neutrophils Auto 86.0 % 10/18/19 5:48 AM [facility] Immature Granulocytes 0.4 % 10/18/2024 5:48 AM [facility] Lymphocytes Auto 9.2 % 10/18/19 5:48 AM [facility] Monocytes Auto 4.3 % 10/18/2024 5:48 AM [facility] Eosinophils Auto 0.0 % 10/18/19 5:48 AM [facility] Basophils Auto 0.1 % 10/18/2024 5:48 AM [facility] Abs Neutrophils Auto 9.88(H) 2.00 - 7.50 Thou/uL 10/18/2024 5:48 AM [facility] Abs Immature Granulocytes 0.05 0.00 - 0.10 Thou/uL 10/18/2024 5:48 AM [facility] Abs Lymphocytes Auto 1.06(L) 1.50 - 4.50 Thou/uL 10/18/2024 5:48 AM [facility] Abs Monocytes Auto 0.49 0.20 - 1.50 Thou/uL 10/18/2024 5:48 AM [facility] Abs Eosinophils Auto 0.00 0.00 - 0.70 Thou/uL 10/18/2024 5:48 AM [facility] Abs Basophils Auto 0.01 0.00 - 0.20 Thou/uL 10/18/2024 5:48 AM [facility] Blood Blood specimen / Unknown 10/18/2024 5:16 AM EST 10/18/2024 5:42 AM EST Fuad Winter MD [place] [address], [place] [address] * (ABNORMAL) Troponin T, High Sensitivity - STAT and in 1 hour (10/18/2024 5:16 AM EST) [facility] [address] High Sensitivity Troponin T 1,830(HH) <23 ng/L 10/18/2024 6:38 AM [facility] Delta (Change) NO PREVIOUS RESULT <3 10/18/2024 6:38 AM [facility] Blood (Plasma/Serum) 10/18/2024 5:16 AM EST 10/18/2024 5:42 AM EST Fuad Winter MD [place] [address], [place] [address] * Magnesium (10/18/2024 5:16 AM EST) [facility] [address] Magnesium 1.7 1.6 - 2.7 mg/dL 10/18/2024 6:38 AM [facility] Blood (Plasma/Serum) 10/18/2024 5:16 AM EST 10/18/2024 5:42 AM EST Fuad Winter MD LAB BLOOD ORD ERABLES [address] [address], [address] [address] * (ABNORMAL) Basic Metabolic Panel (10/18/2024 5:16 AM EST) Glucose 569(HH) 65 - 99 mg/dL 10/18/2024 6:38 AM [facility] Comment:Fasting: <100 mg/dL, Non-Fasting: <200 mg/dL (ADA 2004) Blood Urea Nitrogen (BUN) 83(H) 8 - 21 mg/dL 10/18/2024 6:38 AM [facility] Creatinine 4.9(H) 0.5 - 1.3 mg/dL 10/18/2024 6:38 AM [facility] eGFR 11(L) >59 10/18/2024 6:38 AM [facility] Comment:CKD-EPI (2020) in mL /min/1.73 sq meters. Sodium 140 136 - 145 mmol/L 10/18/2024 6:38 AM [facility] Potassium 4.9 3.4 - 5.3 mmol/L 10/18/2024 6:38 AM [facility] Chloride 104 98 - 107 mmol/L 10/18/2024 6:38 AM [facility] CO2 8(LL) 22 - 33 mmol/L 10/18/2024 6:38 AM [facility] Anion Gap 28(H) 7 - 17 10/18/2024 6:38 AM [facility] Calcium 6.6(LL) 8.7 - 10.5 mg/dL 10/18/2024 6:38 AM [facility] BUN/Creatinine Ratio 17 10.0 - 25.0 Ratio 10/18/2024 6:38 AM [facility] Blood (Plasma/Serum) 10/18/2024 5:16 AM EST 10/18/2024 5:42 AM EST Fuad Winter MD LAB BLOOD ORD ERABLES [facility] [address] [place] [address], [address] [address] documented in this encounter Visit Diagnoses Diagnosis DKA (diabetic ketoacidosis) (HCC)- Primary 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, not stated as uncontrolled NSTEMI (non-ST elevated myocardial infarction) (HCC) Acute myocardial infarction, subendocardial infarction, episode of care unspecified Diabetic ketoacidosis without coma associated with type 2 diabetes mellitus (HCC) NSTEMI (non-ST elevated myocardial infarction) (HCC) Acute myocardial infarction, subendocardial infarction, episode of care unspecified COVID Heart failure with reduced ejection fraction (HCC) Pulmonary edema with left heart failure (HCC) documented in this encounter Admitting Diagnoses Diagnosis DKA (diabetic ketoacidosis) (HCC) 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, not stated as uncontrolled documented in this encounter Administered Medications Inactive Administered Medications - up to 1 most recent administrations Medication Order MAR Action Action Date Dose Rate Site dextrose 5 % (D5W) infusion 50 mL/hr, Intravenous, Continuous, Starting on Cathy 10/18/24 at 1525 Rate/Dose Verify 10/19/2024 1:00 AM EST 50 mL/hr 50 mL/hr dextrose 5 % (D5W) infusion 25 mL/hr, Intravenous, Continuous, Starting on 10/27/24 at 0000 New Bag 10/27/2024 12:42 AM EST 25 mL/hr 25 mL/hr sodium chloride 0.9% (NS) infusion 50 mL/hr, Intravenous, Continuous, Starting on Tue10/24/24 at 1130, For 12 hours, For prevention of ALISA due to contrast - pre-procedure New Bag 10/24/2024 11:10 AM EST 50 mL/hr 50 mL/hr sodium chloride 0.9% (NS) infusion 50 mL/hr, Intravenous, Continuous, Starting on Tue10/31/24 at 0800, For 6 hours, For prevention of ALISA due to contrast - pre-procedure New Bag 10/31/2024 9:10 AM EST 50 mL/hr 50 mL/hr sodium chloride 0.9% (NS) infusion 3 mL/kg/hr ? 65.2 kg (195.6 mL/hr), Intravenous, Continuous, Starting on Tue10/31/24 at 1900, For 4 hours, Do not modify orders without contacting interventional cardiology attending and/or fellow. New Bag 10/31/2024 6:56 PM EST 3 mL/kg/hr 195.6 mL/hr aspirin chewable tablet 81 mg 81 mg, [...] chewable tablet 500 mg 500 mg, Oral, 2 times daily, First dose on Tue10/23/24 at 1000 Given 10/29/2024 9:56 PM EST 500 mg calcium carbonate (TUMS) chewable tablet 500 mg 500 mg, Oral, Daily, First dose (after last modification) on Tue10/31/24 at 0900 Given 11/01/2024 8:24 AM EST 500 mg calcium gluconate IVPB 2 g in 100 mL NS PREMIX 2 g, Intravenous, at 100 mL/hr, Once, On Tue10/18/24 at 0654, For 1 dose New Bag 10/18/2024 7:21 AM EST 2 g 100 mL/hr calcium gluconate IVPB 2 g in 100 mL NS PREMIX 2 g, Intravenous, at 100 mL/hr, Once, On Tue10/19/24 at 0530, For 1 dose New Bag 10/19/2024 5:29 AM EST 2 g 100 mL/hr calcium gluconate IVPB 2 g in 100 mL NS PREMIX 2 g, Intravenous, at 100 mL/hr, Once, On Tue10/24/24 at 0330, For 1 dose Restarted 10/24/2024 4:58 AM EST 100 mL/hr chlorhexidine (PERIDEX) 0.12 % oral solution 15 [...] AM EST 60 mcg Abdominal Tissue dextrose 5 % and sodium chloride 0.45 % with KCl 20 mEq/L infusion (D5-1/2NS-KCL20) (premix) 50 mL/hr, Intravenous, Continuous, Starting on Tue10/19/24 at 0130 Rate/Dose Verify 10/19/2024 6:00 PM EST 50 mL/hr 50 mL/hr dextrose 5 % and sodium chloride 0.9 % (D5NS) infusion 10 mL/hr, Intravenous, Continuous PRN, Begin when Blood Glucose LESS than 200 mg/dL for DKA or LESS than 300 mg/dL for HHS, Starting on Tue10/18/24 at 0526 New Bag 10/18/2024 12:37 PM EST 10 mL/hr 10 mL/hr dextrose 5 % and sodium chloride 0.9 % (D5NS) infusion 50 mL/hr, Intravenous, Continuous, Starting on Tue10/24/24 at 1130, For 6 hours New Bag 10/24/2024 11:31 AM EST 50 mL/hr 50 mL/hr dextrose 5 % and sodium chloride 0.9 % (D5NS) infusion 25 mL/hr, Intravenous, Continuous, Starting on Tue10/26/24 at 1330, Discontinue when eating New Bag 10/26/2024 2:40 PM EST 25 mL/hr 25 mL/hr dextrose 50 % solution 12.5 g 12.5 [...] unable to swallow. See Hypoglycemia Management guideline. furosemide (LASIX) injection 20 mg 20 mg, Intravenous, Once, On Tue10/21/24 at 2130, For 1 dose, Hold for SBP less than 100 mmHg. Notify provider if a dose is held. If ordered IV Push: administer undiluted over 2 minutes. Given 10/21/2024 9:48 PM EST 20 mg furosemide (LASIX) injection 40 mg 40 mg, Intravenous, Once, On Tue10/18/24 at 1525, For 1 dose, Hold for SBP less than 100 mmHg. Notify provider if a dose is held. If ordered IV Push: administer undiluted over 2 minutes. Given 10/18/2024 3:53 PM EST 40 mg furosemide (LASIX) injection 40 mg 40 mg, Intravenous, Once, On Tue10/24/24 at 1200, For 1 dose, Hold for SBP less than 100 mmHg. Notify provider if a dose is held. If ordered IV Push: administer undiluted over 2 minutes. Given 10/24/2024 11:58 AM EST 40 mg furosemide (LASIX) injection 40 mg 40 mg, Intravenous, Once, On Tue10/25/24 at 1100, For 1 dose, Hold for SBP less than 100 mmHg. Notify provider if a dose is held. If ordered IV Push: administer undiluted over 2 minutes. Given 10/25/2024 11:32 AM EST 40 mg furosemide (LASIX) injection 40 mg 40 mg, Intravenous, Once, On Tue10/26/24 at 1030, For 1 dose, Hold for SBP less than 100 mmHg. Notify provider if a dose is held. If ordered IV Push: administer undiluted over 2 minutes. Given 10/26/2024 10:43 AM EST 40 mg furosemide (LASIX) injection 40 mg 40 mg, Intravenous, Once, On 10/27/24 at 1230, For 1 dose, Hold for SBP less than 100 mmHg. Notify provider if a dose is held. If ordered IV Push: administer undiluted over 2 minutes. Given 10/27/2024 1:25 PM EST 40 mg furosemide (LASIX) injection 40 mg 40 mg, Intravenous, Once, On 10/28/24 at 0930, For 1 dose, Hold for SBP less than 100 mmHg. Notify provider if a dose is held. If ordered IV Push: administer undiluted over 2 minutes. Given 10/28/2024 9:24 AM EST 40 mg furosemide (LASIX) injection 40 mg 40 mg, Intravenous, Once, On 10/29/24 at 1500, For 1 dose, Hold for SBP less than 100 mmHg. Notify provider if a dose is held. If ordered IV Push: administer undiluted over 2 minutes. Given 10/29/2024 3:50 PM EST 40 mg furosemide (LASIX) injection 80 mg 80 mg, Intravenous, Once, On Cathy 10/18/24 at 1929, For 1 dose, Hold for SBP less than 100 mmHg. Notify provider if a dose is held. If ordered IV Push: administer undiluted over 2 minutes. Given 10/18/2024 8:14 PM EST 80 mg furosemide (LASIX) injection 80 mg 80 mg, Intravenous, Once, On Tue10/19/24 at 1000, For 1 dose, Hold for SBP less than 100 mmHg. Notify provider if a dose is held. If ordered IV Push: administer undiluted over 2 minutes. Given 10/19/2024 10:36 AM EST 80 mg glucagon (GLUCAGEN) injection 1 mg 1 mg, [...] = 15 grams of glucose. heparin (porcine) 5000 unit/mL injection 5,000 Units 5,000 Units, Subcutaneous, Every 8 hours scheduled, First dose on Cathy 11/01/24 at 0930, For subcutaneous use the injection sites should be rotated (usually left and right portions of the abdomen, above iliac crest). Given 11/01/2024 1:57 PM EST 5,000 Units Abdominal Tissue heparin (porcine) IV infusion 25,000 units in 500 mL 0.45% NaCl (premix) 16.536 mL/hr (12 Units/kg/hr ? 68.9 kg [...] = 50 units/mL, Indication for Anticoagulation: Acute IN New Bag 10/31/2024 4:37 PM EST 14 Units/kg/hr 19.292 mL/hr hydrALAZINE (APRESOLINE) tablet 25 mg 25 mg, Oral, Every 8 hours scheduled, First dose on Cathy 11/01/24 at 1400, Hold for SBP less than 100 mmHg. Notify provider if a dose is held. Given 11/01/2024 1:13 PM EST 25 mg insulin glargine (LANtus/SEMGLEE) 100 units/mL injection 10 Units 10 Units, Subcutaneous, Daily, First dose (after last modification) on 10/30/24 at 0900, Do not hold basal for NPO status, at risk for DKA, if NPO dose may need to be reduced, notify provider. Given 10/30/2024 9:54 AM EST 10 Units Right Arm insulin glargine (LANtus/SEMGLEE) 100 units/mL injection 12 Units 12 Units, Subcutaneous, Daily, First dose (after last modification) on 10/29/24 at 0900, Do not hold basal for NPO status, at risk for DKA, if NPO dose may need to be reduced, notify provider. Given 10/29/2024 11:00 AM EST 12 Units Left Arm insulin glargine (LANtus/SEMGLEE) 100 units/mL injection 14 Units 14 Units, Subcutaneous, Daily, First dose (after last modification) on 10/27/24 at 0930, Basal insulin is not held for NPO status. Contact provider with any questions or concerns. Given 10/28/2024 8:36 AM EST 14 Units Abdominal Tissue insulin glargine (LANtus/SEMGLEE) 100 units/mL injection 16 Units 16 Units, Subcutaneous, Daily, First dose (after last modification) on Cathy 10/25/24 at 1300, Basal insulin is not held for NPO status. Contact provider with any questions or concerns. Given 10/26/2024 9:40 AM EST 16 Units Left Arm insulin glargine (LANtus/SEMGLEE) 100 units/mL injection 18 Units 18 Units, Subcutaneous, Daily, First dose on Tue10/19/24 at 1630, Basal insulin is not held for NPO status. Contact provider with any questions or concerns. Given 10/20/2024 3:54 PM EST 18 Units Abdominal Tissue insulin glargine (LANtus/SEMGLEE) 100 units/mL injection 18 Units 18 Units, Subcutaneous, Daily, First dose (after last modification) on Tue10/23/24 at 0900, Basal insulin is not held for NPO status. Contact provider with any questions or concerns., On hold since Tue10/24/2024 at 1645 until manually unheld Given 10/24/2024 8:40 AM EST 18 Units Abdominal Tissue insulin glargine (LANtus/SEMGLEE) 100 units/mL injection 20 Units 20 Units, Subcutaneous, Daily, First dose (after last modification) on Tue10/21/24 at 1200, Basal insulin is not held for NPO status. Contact provider with any questions or concerns. Given 10/21/2024 1:56 PM EST 20 Units Left Arm insulin glargine (LANtus/SEMGLEE) 100 units/mL injection 20 Units 20 Units, Subcutaneous, Daily, First dose (after last modification) on Tue10/22/24 at 0900, Basal insulin is not held for NPO status. Contact provider with any questions or concerns. Given 10/22/2024 9:44 AM EST 20 Units Right Arm insulin glargine (LANtus/SEMGLEE) 100 units/mL injection 8 Units 8 Units, Subcutaneous, Daily, First dose (after last modification) on Tue10/31/24 at 0930, Do not hold basal for NPO status, at risk for DKA, if NPO dose may need to be reduced, notify provider. Given 10/31/2024 9:20 AM EST 8 Units Right Arm insulin glargine (LANtus/SEMGLEE) 100 units/mL injection 8 Units 8 Units, Subcutaneous, Daily, First dose (after last modification) on Tue11/01/24 at 1200, Do not hold basal for NPO status, at risk for DKA, if NPO dose may need to be reduced, notify provider. Given 11/01/2024 12:07 PM EST 8 Units Left Arm insulin IV infusion - ADS Override Pull Starting on Tue10/18/24 at 0514, For 1 dose, Anne Ma: cabinet override insulin lispro (HumaLOG/ADMELOG) 100 units/mL injection 1-4 Units 1-4 Units, Subcutaneous, Nightly and 0200, First dose on Tue10/19/24 at 2100, DO NOT HOLD IF NPO Notify provider if Blood Glucose LESS than 70 For BG 201-250 administer 1 unit For BG 251-300 administer 2 units For BG 301-350 administer 3 units For BG MORE than 350, administer 4 units AND notify provider Given 10/20/2024 8:48 PM EST 1 Units Right Arm insulin lispro (HumaLOG/ADMELOG) 100 units/mL injection 1-4 Units 1-4 Units, Subcutaneous, User Specified (3 times per day), First dose (after last modification) on Tue10/24/24 at 2100, Q4hrs for overnight DO NOT HOLD IF NPO Notify provider if Blood Glucose LESS than 70 For BG 201-250 administer 1 unit For BG 251-300 administer 2 units For BG 301-350 administer 3 units For BG MORE than 350, administer 4 units AND notify provider Given 10/25/2024 9:04 PM EST 1 Units Abdominal Tissue insulin lispro (HumaLOG/ADMELOG) 100 units/mL injection 1-4 [...] 3 times daily with meals, First dose on Tue10/19/24 at 1700, Please document the amount of carbs consumed in the comments section when insulin is given. MEAL BOLUS , hold if NPO or if eats < 15 ??grams of carbs Give 1??unit if eats/drinks 15-23??grams of carbs Give 2??units if eats/drinks 24-35 grams of carbs Give 3??units if eats/drinks 36-47 grams of carbs? Give 4??units if eats/drinks 48-59 grams of carbs Give 5??units if eats/drinks 60-71 grams of carbs Give 6 units if eats/drinks at least 72 grams of carbs Given 10/19/2024 6:40 PM EST 3 Units Abdominal Tissue insulin lispro (HumaLOG/ADMELOG) 100 units/mL injection 1-6 Units 1-6 Units, Subcutaneous, 3 times daily with meals, First dose on Tue10/19/24 at 1700, DO NOT HOLD IF NPO Notify provider if Blood Glucose LESS than 70 For BG 141-180 administer 1 unit For BG 181-220 administer 2 units For BG 221-260 administer 3 units For BG 261-300 administer 4 units For BG 301-340 administer 5 units For BG MORE than 340, administer 6 units AND notify provider Given 10/20/2024 12:30 PM EST 2 Units Abdominal Tissue insulin lispro (HumaLOG/ADMELOG) 100 units/mL injection 1-6 Units 1-6 Units, Subcutaneous, 3 times daily with meals, First dose (after last reorder) on 10/20/24 at 1330, DO NOT HOLD IF NPO [...] Arm insulin lispro (HumaLOG/ADMELOG) 100 units/mL injection 1-8 Units 1-8 Units, Subcutaneous, 3 times daily with meals, First dose (after last modification) on 10/20/24 at 0830, Please document the amount of carbs consumed in the comments section when insulin is given. MEAL BOLUS, hold if NPO or if eats < 10 grams of carbs Give 1 unit if eats/drinks 10-17 grams of carbs Give 2 units if eats/drinks 18-26 grams of carbs Give 3 units if eats/drinks 27-35 grams of carbs? Give 4 units if eats/drinks 36-44 grams of carbs Give 5 units if eats/drinks 45-53 grams of carbs Give 6 units if eats/drinks 54-62 grams of carbs Give 7 units if eats/drinks 63-71 grams of carbs Give 8 units if eats/drinks at least 72 grams of carbs Given 10/28/2024 6:43 PM EST 5 Units Abdominal Tissue insulin lispro (HumaLOG/ADMELOG) 100 units/mL injection 2-9 [...] 2:00 PM EST 8 Units Left Arm insulin regular (HumuLIN-R) IV infusion 100 units in 100 mL NS STOCK - Glucommander 0-100 Units/hr (0-100 mL/hr), Intravenous, Continuous, Starting on Cathy 10/18/24 at 0527, For 1 day 13 hours, Do not initiate Insulin infusion until K is GREATER than or EQUAL to 3.3 mmoL/L. Titrate according to GLUCOMMANDER recommendation. When Insulin infusion started in ED, continue per GLUCOMMANDER recommendation., Initial Multiplier (Insulin Sensitivity Factor): 0.02 (Type 2/HHS/CV surg pre-op/:GDM /Type 2 in 2nd Trimester), Target Glucose Range: 120-160 mg/dL (DKA) Rate/Dose Verify 10/19/2024 6:00 PM EST 2 Units/hr 2 mL/hr isosorbide dinitrate (ISORDIL) tablet 10 mg 10 [...] Given 11/01/2024 6:14 AM EST 25 mcg linagliptin (TRADJENTA) tablet 5 mg 5 mg, Oral, Daily, First dose on Tue10/26/24 at 1000, HOLD for NPO, Give once eating Given 11/01/2024 8:25 AM EST 5 mg magnesium oxide tablet 400 mg 400 mg, Oral, Once, On Tue10/27/24 at 1200, For 1 dose Given 10/27/2024 11:57 AM EST 400 mg magnesium sulfate IVPB 1 g in 100 mL D5W (premix) 1 g, Intravenous, Administer over 30 Minutes, Once, On Tue10/24/24 at 0930, For 1 dose, Recheck magnesium level 4 hours after infusion. Maximum dose = 8 g in 24 hrs. New Bag 10/24/2024 9:45 AM EST 1 g 200 mL/hr metoPROLOL SUCCINATE (TOPROL-XL) 24 hr tablet 25 mg 25 mg, Oral, Once, On Tue10/24/24 at 0930, For 1 dose, Hold for HR less than 45 bpm and/or SBP less than 90 mmHg. Notify provider if a dose is held. *DO NOT CHEW OR CRUSH* Given 10/24/2024 9:46 AM EST 25 mg metoPROLOL SUCCINATE (TOPROL-XL) 24 hr tablet 50 mg 50 mg, Oral, Daily, First dose on 10/20/24 at 1500, Hold for HR less than 45 bpm and/or SBP less than 90 mmHg. Notify provider if a dose is held. *DO NOT CHEW OR CRUSH* Given 10/24/2024 8:40 AM EST 50 mg metoPROLOL SUCCINATE (TOPROL-XL) 24 hr tablet 75 mg 75 mg, Oral, Daily, First dose (after last modification) on Cathy 10/25/24 at 0900, Hold for HR less than 45 bpm and/or SBP less than 90 mmHg. Notify provider if a dose is held. *DO NOT CHEW OR CRUSH* Given 11/01/2024 8:24 AM EST 75 mg metoPROLOL TARTRATE (LOPRESSOR) tablet 25 mg 25 mg, Oral, Once, On 10/28/24 at 1600, For 1 dose, Hold for HR less than 45 bpm and/or SBP less than 90 mmHg. Notify provider if a dose is held. Given 10/28/2024 5:12 PM EST 25 mg naloxone (NARCAN) 0.4 mg/mL injection 0.4 mg 0.4 mg, Intravenous, Every 5 min PRN, opioid reversal, respiratory depression, Starting on Cathy 10/18/24 at 0703, Notify provider if administered perflutren lipid microsphere (DEFINITY) 1.3 mL in sodium chloride (NS) 0.9 % 10 mL 0.5-8 mL, Intravenous, Once in imaging, other, Starting on Cathy 10/18/24 at 1213, For 1 dose, Document total dose administered per policy Given 10/18/2024 12:14 PM EST 3 mL potassium chloride (KLOR-CON) packet 20 mEq 20 mEq, Oral, Every 2 hours, First dose on 10/27/24 at 1130, For 2 doses, Dissolve contents of 1 packet in 4 ounces of water. Given 10/27/2024 1:24 PM EST 20 mEq senna-docusate (SENNA-S) 8.6-50 MG tablet 2 tablet 2 tablet, Oral, Nightly, First dose on Cathy 10/18/24 at 2100, Hold for diarrhea Given 10/27/2024 8:26 PM EST 2 tablets sodium bicarbonate tablet 650 mg 650 mg, Oral, 2 times daily, First dose on Tue10/19/24 at 1430 Given 10/22/2024 9:46 AM EST 650 mg sodium citrate-citric acid (BICITRA) 500-334 mg/5 mL solution 30 mL 30 mL, Oral, 3 times daily, First dose on Tue10/22/24 at 1000 Given 10/25/2024 9:56 AM EST 30 mL sodium citrate-citric acid (BICITRA) 500-334 mg/5 mL solution 30 mL 30 mL, Oral, 2 times daily after breakfast and dinner, First dose (after last modification) on Tue10/25/24 at 1730 Given 10/29/2024 5:46 PM EST 30 mL documented in this encounter Active and Recently Administered Medications Times are shown in EST. Scheduled Medication Order 10/30/2024 10/31/2024 11/01/2024 aspirin chewable tablet 81 mg 81 mg, Oral, Daily, First dose on Tue10/18/24 at 1657 0952 (Given - Provider: Torie Kwan RN) 0914 (Given - Provider: Oksana Zhang RN) 0824 (Given - Provider: Tena Meza RN) atorvastatin (LIPITOR) tablet 80 mg 80 mg, Oral, Daily, First dose on Tue10/18/24 at 1656 0951 (Given - Provider: Torie Kwan RN) 0914 (Given - Provider: Oksana Zhang RN) 0825 (Given - Provider: Tena Meza RN) calcitriol (ROCALTROL) capsule 0.5 mcg 0.5 mcg, [...] mouth 0951 (Given - Provider: Torie Kwan RN)2156 (Given - Provider: Ольга Nugent RN) 09 (Given - Provider: Oksana Zhang RN)2030 (Given - Provider: Edilson Yao RN) 08 (Not Given - Provider: Tena Meza RN [...] iliac crest). 0914 (Given - Provider: Tena Meza RN)1357 (Given - Provider: Tena Meza RN) hydrALAZINE (APRESOLINE) tablet 25 mg 25 mg, Oral, Every 8 hours scheduled, First dose on Tue11/01/24 at 1400, Hold for SBP less than 100 mmHg. Notify provider if a dose is held. 1313 (Given - Provider: Tena Meza RN) insulin glargine (LANtus/SEMGLEE) 100 units/mL injection 10 [...] notify provider. 0920 (Given - Provider: Oksana Zhang RN) insulin glargine (LANtus/SEMGLEE) 100 units/mL injection 8 Units 8 Units, Subcutaneous, Daily, First dose (after last modification) on Tue11/01/24 at 1200, Do not hold basal for NPO status, at risk for DKA, if NPO dose may need to be reduced, notify provider. 1207 (Given - Provider: Tena Meza RN) insulin [...] RN - Reason: Dose held per order parameters)215 (Not Given - Provider: Ольга Nugent RN - Reason: Dose held per order parameters - Comment: BG 147) 0230 (Not Given - Provider: Ольга Nugnet RN - Reason: Dose held per order [...] order parameters)1254 (Not Given - Provider: Torie wKan RN - Reason: Dose held per order [...] - Comment: 111)1208 (Given - Provider: Tena Meza, KENDALL) insulin lispro (HumaLOG/ADMELOG) 100 units/mL injection 2-9 Units 2-9 Units, Subcutaneous, 3 times daily with meals, First dose (after last modification) on 10/29/24 at 0800, MEAL BOLUS ICR: 1: 7g [...] is held. 1210 (Given - Provider: Tena Meza RN) levothyroxine (SYNTHROID, LEVOTHROID) tablet 25 mcg 25 [...] Nugent RN) 0614 (Given - Provider: Edilson Yao RN) linagliptin (TRADJENTA) tablet 5 mg 5 mg, Oral, Daily, First dose on Tue10/26/24 at 1000, HOLD for NPO, Give once eating 0949 (Given - Provider: Torie Kwan RN) 0914 (Given - Provider: Oksana Zhang RN) 0825 (Given - Provider: Tena Meza RN) metoPROLOL SUCCINATE (TOPROL-XL) 24 hr tablet 75 [...] 0824 (Given - Provider: Tena Meza RN) senna-docusate (SENNA-S) 8.6-50 MG tablet 2 tablet 2 tablet, Oral, Nightly, First dose on Cathy 10/18/24 at 2100, Hold for diarrhea 2157 (Not [...] Burr RN)2100 (Canceled Entry - Provider: Edilson Yao, KENDALL) 0211 (Stopped - Provider: Edilson Yao RN) [...] = 50 units/mL, Indication for Anticoagulation: Acute IN 0739 (Handoff - Provider: Torie Kwan RN - Comment: 15units)1405 (New Bag - Provider: Torie Kwan RN - Comment: 15units)1920 (Handoff - Provider: Sunitha Castillo RN - Comment: 15 units) 0600 (Rate/Dose Verify - Provider: Ольга Nugent RN)0755 (Handoff - Provider: Oksana Zhang RN)0917 (Rate Change - High Risk Medication - Provider: Oksana Zhang RN)1637 (New Bag - Provider: Oksana Zhang [...] day 2, Starting on Tue10/18/24 at 0703 dextrose 50 % solution 12.5 [...] documented as of this encounter Care Teams Production Engineer Track Relationship Specialty Start Date End Date Diaz Akers MD PCP - General Internal Medicine 10/20/24 documented as of this encounter
--- OUTSIDE RECORDS SUMMARY | 2024-11-08 16:36 | XMS_ITS | Encounter Summary ---
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 Name Role Phone Unavailable Primary Care Provider Unavailabl e Encounter Details Date Type Department Care Team (Late st Contact Info) Description 08/16/2023 Office Communication [facility] [address] [facility] [address] [place] [address] Kang Britt MD [address] [facility] [address] [place] [address] Social History Tobacco Use Types Packs/Day Years Used Date Smoking Tobacco: Never Smokeless Tobacco: Never Alcohol Use Standard Drinks/Week Comments Yes 0 (1 standard drink = 0.6 oz pure alcohol) Alcoholic Drinks/day: Occasional social drink Sex and Gender Information Value Date Recorded Sex Assigned at Not on file Legal Sex Male 4:52 PM EST Gender Identity Not on file Sexual Orientation Not on file documented as of this encounter Miscellaneous Notes * Telephone Encounter - Kang Britt MD - 08/18/2023 2:01 PM EST Pls call and let PT know he is alays to come back and see me in future if he wants --we wish him well and Dr Barros is a good doc * Telephone Encounter - Kang Britt MD - 08/16/2023 2:14 AM EST How come no f/u made----needs f/u in 2 months please documented in this encounter Plan of Treatment Not on file documented as of this encounter Visit Diagnoses Not on filedocumented in this encounter
--- OUTSIDE RECORDS SUMMARY | 2024-11-08 16:36 | XMS_ITS | Encounter Summary ---
Author Organization [facility] Address [address] [place] [address] Care Team Providers Care Weatherization Technician Name Role Phone Unavailable Primary Care Provider Unavailabl e Encounter Details Date Type Department Care Team (Latest Contact Info) Description 10/18/2024 Travel Social History Tobacco Use Types Packs/Day Years Used Date Smoking Tobacco: Never Assessed Sex and Gender Information Value Date Recorded Sex Assigned at Male 10/18/2024 5:34 AM EST Gender Identity Male 10/18/2024 5:34 AM EST Sexual Orientation Heterosexual (straight) 10/18 5:34 AM EST documented as of this encounter Plan of Treatment Not on file documented as of this encounter Visit Diagnoses Not on filedocumented in this encounter
--- OUTSIDE RECORDS SUMMARY | 2024-11-08 16:36 | XMS_ITS | Clinical Summary ---
Author Organization [facility] Address [address] [facility] [address] [place] [address] Phone Care Team Providers Care End Packer Name Role Phone Unavailable Primary Care Provider Unavailabl e Allergies No known active allergies Medications acetaminophen (TYLENOL) 325 MG tablet Take 2 tablets by mouth Active allopurinol (ZYLOPRIM) 100 MG tablet Take 1 tablet by mouth 1 (one) time each day Active amLODIPine (NORVASC) 10 MG tablet Take 1 tablet by mouth 1 (one) time each day Active calcium carbonate (OS-PRANAV) 1250 (500 Ca) MG tablet Take 1 tablet by mouth 1 (one) time each day Active insulin glargine (Lantus SoloStar) 100 UNIT/ML injection Inject 10 Units under the skin 1 (one) time each day in the evening Active pravastatin (PRAVACHOL) 20 MG tablet Take 1 tablet by mouth 1 (one) time each day Active SITagliptin (JANUVIA) 100 MG tablet Take 1 tablet by mouth 1 (one) time each day Active terazosin (HYTRIN) 5 MG capsule Take 5 mg by mouth at bed time 1 Active BD ULTRA-FINE PEN NEEDLES 29G X 12.7MM misc USE DIRECTED EVERY DAY 1 Active Sodium Zirconium Cyclosilicate 5 g pack Take 5 g by mouth every Tuesday and Tuesday 30 each 2 2 Active predniSONE (DELTASONE) 10 MG tablet Take 1 tablet (10 mg total) by mouth 1 (one) time each day 15 tablet 1 2 Active sodium bicarbonate 650 MG tablet TAKE 1 TABLET(650 MG) BY MOUTH 1 TIME EACH DAY 90 tablet 1 3 Active Hospital, Clinic, or Other Facility Administered Medication Ordered Dose Route Frequency Start Date End Date Status Epoetin Kleley-epbx solution 10,000 UnitsIndications:Anemia of chronic renal failure,Chronic kidney disease stage 4 (HCC) 82543 Units IJ Every 21 days 07/09/2021 Active epoetin kelley (EPOGEN,PROCRIT) injection 20,000 UnitsIndications:Anemia due to Renal Failure 30722 Units IV Every 14 days 08/16/2022 Active epoetin kelley (EPOGEN,PROCRIT) injection 10,000 UnitsIndications:Anemia due to Renal Failure 53689 Units IV Every 14 days 08/30/2022 Active epoetin kelley (EPOGEN,PROCRIT) injection 10,000 UnitsIndications:Anemia due to Renal Failure 13632 Units IV Every 14 days 09/27/2022 Active Epoetin Kelley-epbx solution 30,000 UnitsIndications:Anemia in chronic kidney disease,Chronic kidney disease stage 4 (HCC) 97785 Units IJ Once 12/13/2022 Ac tive Epoetin Kelley-epbx solution 20,000 UnitsIndications:Anemia in chronic kidney disease,Chronic kidney disease stage 4 (HCC) 37202 Units IJ Once 12/27/2022 Ac tive Active Problems Problem Noted Date Diagnosed Date Anemia of chronic renal failure 12/04/2020 Hypertensive disorder 12/04/2020 Resolved Problems Problem Noted Date Diagnosed Date Resolved Date Chronic kidney disease stage 4 12/04/2020 03/10/2022 Immunizations Name Administration Dates Next Due Pfizer SARS-COV-2 07/04/2021,12/12/2020,11/21/19 Family History Medical History Relation Comments Hypertension Mother Relation Status Comments Father Unknown Mother Alive Social History Tobacco Use Types Packs/Day Years Used Date Smoking Tobacco: Never Smokeless Tobacco: Never Tobacco Cessation:Counseling Given: Not Answered Alcohol Use Standard Drinks/Week Comments Yes 0 (1 standard drink = 0.6 oz pure alcohol) Alcoholic Drinks/day: Occasional social drink Sex and Gender Information Value Date Recorded Sex Assigned at Not on file Legal Sex Male 4:52 PM EST Gender Identity Not on file Sexual Orientation Not on file Last Filed Vital Signs Vital Sign Reading Time Taken Comments Blood Pressure 140/62 07/27/2023 4:11 PM EDT Pulse 89 07/27/2023 1:39 PM EDT Temperature - - Respiratory Rate - - Oxygen Saturation 97% 07/27/2023 1:39 PM EDT Inhaled Oxygen Concentration - - Weight 71 kg (156 lb 9.6 oz) 07/27/2023 1:39 PM EDT Height 171.5 cm (5' 7.5 ) 04/07/2023 2:13 PM EDT Body Mass Index 24.17 04/07/2023 2:13 PM EDT Plan of Treatment Health Maintenance Due Date Last Done Comments Pneumococcal Vaccine: 65+ Ye ars (1 of 2 - PCV) 1951 Influenza Vaccine (#1) 2024 Diabetes: Hemoglobin A1C 10/18/2024 11/13/2018 Diabetes: Ophthalmology Exam 10/18/2024 Diabetes: Pedal Pulse Checked 10/18/2024 Diabetes: Sensory Foot Exam 10/18/2024 Diabetes: Visual Foot Exam 10/18/2024 Hepatitis B Vaccine Aged Out No longe r eligible based on patient's age to complete this topic Procedures Procedure Name Priority Date/Time Associated Diagnosis Comments HEMOGLOBIN A1C Routine 11/13/2018 8:00 AM EST from Last 3 Months or Most Recently Relevant to Health Maintenance Results * Hemoglobin A1c (11/13/2018 8:00 AM EST) [facility] Hemoglobin A1C 7.4 % COLBY Comment: New assay as of: ??11/04/14 ?Hemoglobin A1C Reference Range ? Adults: ??4.8 - 6.0 % ? Non diabetic: ??< 6.0 % ? Goal: ??< 7.0 % Additional Action Suggested: ??> 8.0 % Note: ??Hemoglobin A1c results are invalid for patients ? with abnormal amounts of HbF. Estimated Average Glucose 166 MG/DL COLBY Comment: eAG = Estimated average glucose which is %A1C expressed as average glucose, using the formula of the [id number] Average Glucose study (ADAG), Diabetes Care, Vol.31,#8, May. 2007 11/13/2018 8:00 AM EST us Kev Esteves MD LAB BLOOD ORDERABLES Final Result [place] from Last 3 Months or Most Recently Relevant to Health Maintenance Insurance [address] [place] [address] [place] [address]
== END 2024-11-08 14:02 | disposition home or self-care (01) ==
PROVIDERS: PCP Internal Medicine; Visit Provider Physician Assistant Medical
DX: E21.3 Hyperparathyroidism, unspecified (principal); I50.42 Chronic combined systolic (congestive) and diastolic (congestive) heart failure; N18.5 Chronic kidney disease, stage 5; E11.8 Type 2 diabetes mellitus with unspecified complications; C61 Malignant neoplasm of prostate; U07.1 COVID-19; I25.10 Atherosclerotic heart disease of native coronary artery without angina pectoris

== ENCOUNTER → 2024-11-08 12:42 | Outpatient (BNVA) | payer OTHER, SELFPAY | PROVIDERS: PCP Internal Medicine; Visit Provider Physician Assistant Medical ==

== ENCOUNTER 2024-11-08 14:13 | Outpatient (AMB) | payer OTHER, SELFPAY ==
[2024-11-08 14:22] VITALS: BP 118/48; PULSE 73; O2SAT 99; BMI 21.5
--- NOTE | 2024-11-08 14:22 | HO.NEPHOV_ITS ---
Vital Signs 11/08/24 14:22 Height 5 ft 7 in Weight 137 lb BMI 21.5 BP 118/48 L Blood Pressure Location Rt brachial Position Sitting Pulse 73 Pulse Source Pulse Oximeter Pulse Oximetry (%) 99 Oxygen Delivery Method Room Air Intake Visit Reasons: [facility] 10[place]17[facility] [facility] [place] [employer] Machine Operator Required: No Accompanied by: Sister Allergies No Known Allergies [No Known Allergies*] Allergy (Verified 11/08/24 14:25) HPI Comments Details: Elderly man with a history of longstanding diabetes mellitus hypertension with CKD. 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 Serum creatinine is between 4 and 5.0 mg/dL. Recently was hospitalized at [facility] of for acute pulmonary edema and acute MT. He was conservatively managed. History of for further follow-up regarding CKD. He has been receiving Epogen injections for the anemia. 04/05/2024. Overall he is feeling better. No specific complaints today. Lokelma has been denied by his insurance. 05/03/2024 No shortness of breath. No nausea or vomiting. He took Kayexalate and had upset stomach therefore he stopped taking it. 10/01/24 K was high since he missed kayexalate CAlled and asked to take daily Not taking calcitriol 11/08/2024. Recently hospitalized at [facility]. Underwent coronary angiogram. Apparently no intervention was done. He had COVID 19 infection Breathing has improved No nausea or vomiting. No chest pain no urinary symptoms. [facility] Medical History Heart attack Atherosclerotic cardiovascular disease CKD (chronic kidney disease) stage 5, GFR less than 15 ml/min Other and unspecified hyperlipidemia Essential hypertension Edema of both feet Prostate cancer Gout Hyperlipidemia Diabetes Surgical History History of hernia surgery Family History Mother No problems noted. Father No problems noted. Social History Housing: House Alcohol intake: never Patient Tobacco Use Status: Never used Tobacco e-Cigarette/Vaping Use: Never Used Second Hand Smoke Exposure: No service: No Current occupational status: retired Current occupation: rt handed Cognitive needs: No Hearing needs: No Vision needs: Yes (Glasses) Physical Exam Vital Signs: Last Vital Signs Pulse 73 11/08/24 14:22 BP 118/48 L 11/08/24 14:22 Pulse Ox 99 11/08/24 14:22 Oxygen Delivery Method Room Air 11/08/24 14:22 BMI result Body Mass Index 21.5 Comfortable Neck supple no JVD. Lungs entry equal no rales. Heart S1-S2 heard no gallop or rub. Abdomen soft nontender. Neuro alert awake oriented. No asterixis. Extremities no edema. Results Reviewed Nephrology Results: Hgb 8.4 g/dl (14.0-18.0) L 10/18/24 WBC 10.6 X10*3/uL (4.8-10.8) 10/18/24 Plt Count 275 X10*3/uL (160-400) 10/18/24 Sodium 138 mmol/L (135-145) 10/18/24 Potassium 5.9 mmol/L (3.3-5.1) H 10/18/24 Chloride 106 mmol/L (96-108) 10/18/24 Carbon Dioxide 7 mmol/L (22-29) L* 10/18/24 BUN 84 mg/dL (9-16) H 10/18/24 Creatinine 5.89 mg/dL (0.5-1.4) H* 10/18/24 Calcium 7.1 mg/dL (8.4-10.2) L 10/18/24 PTH Intact 677.8 pg/mL (8.7-77.1) H 09/25/24 Assessment & Plan Assessment & Plan (1) CKD (chronic kidney disease) stage 5, GFR less than 15 ml/min: Code(s): N18.5 - Chronic kidney disease, stage 5 Category: Medical Plan: CKD 5. No signs or symptoms of uremia. He is approaching end stage renal disease. No indication for dialysis YET Seen by dialysis educator for [facility] Seen by Dr. Chester for insertion of Tenckhoff catheter (2) Anemia due to chronic kidney disease: Code(s): N18.9 - Chronic kidney disease, unspecified; D63.1 - Anemia in chronic kidney disease Category: Medical Qualifiers: Chronic kidney disease stage: stage 5, not on chronic dialysis Qualified Code(s): N18.5 - Chronic kidney disease, stage 5; D63.1 - Anemia in chronic kidney disease Plan: Anemia due to CKD. Hemoglobin is low. Recheck iron TIBC and hemoglobin. We will administer Epogen based on this. (3) Essential hypertension: Code(s): I10 - Essential (primary) hypertension Category: Medical Plan: Hypertension blood pressure is acceptable Stay on low-sodium diet (4) Metabolic acidosis: Code(s): E87.20 - Acidosis, unspecified Category: Medical Plan: Sodium bicarbonate on hold. Recheck serum electrolytes and start bicarb if needed (5) Type 2 diabetes mellitus with unspecified complications: Code(s): E11.8 - Type 2 diabetes mellitus with unspecified complications Category: Medical Plan: Goal is to maintain A1c less than 7%. Unable to add SGLT2 inhibitors like Jardiance due to hyperkalemia. (6) Hyperkalemia: Code(s): E87.5 - Hyperkalemia Category: Medical Plan: Primarily due to the use of spironolactone in setting of advanced kidney disease. Lokelma was denied I prescribed Kayexalate. Encouraged him to stay on low-potassium diet. The potassium stays persistently elevated we might have to discontinue spironolactone. Kayexalate twice a week (7) Hyperparathyroidism: Code(s): E21.3 - Hyperparathyroidism, unspecified Category: Medical Plan: Ca is high Decreased Calcitriol to Once a week Of calcium tablets. Check calcium Plan Of note blood sugar seems suboptimal recent blood sugar was 460 with a A1c of 11.5% I have discussed importance of tight control blood sugar to slow the progression of renal disease. Orders: Orders Parathyroid Hormone Intact 4 Days N18.5 - Chronic kidney disease, stage 5 Phosphorus 4 Days N18.5 - Chronic kidney disease, stage 5 IRON PROFILE 4 Days N18.5 - Chronic kidney disease, stage 5 Ferritin 4 Days N18.5 - Chronic kidney disease, stage 5 Coding Level of Care Code Est Pt Level 4 (11612) Diagnoses CKD (chronic kidney disease) stage 5, GFR less than 15 ml/min N18.5 Anemia due to stage 5 chronic kidney disease, not on chronic dialysis N18.5; D63.1 Chronic kidney disease stage: stage 5, not on chronic dialysis Essential hypertension I10 Metabolic acidosis E87.20 Type 2 diabetes mellitus with unspecified complications E11.8 Hyperkalemia E87.5 Hyperparathyroidism E21.3
--- OUTSIDE RECORDS SUMMARY | 2024-11-08 17:59 | XMS_ITS | Encounter Summary ---
Author Organization [facility] Address [address] [place] [address] Care Team Providers Care Inspector And Mender Name Role Phone Diaz Akers MD Primary Care Provider Soledad vailable Encounter Details Date Type Department Care Team (Late st Contact Info) Description 10/19/2024 Scanned Document CARDIOLOGY [address] [place] [id number] Sejal Blair [address] [address] Social History Tobacco Use Types Packs/Day Years Used Date Smoking Tobacco: Never Assessed [facility] Utilities Answer Date Recorded In the past 12 months has [place] electric, gas, oil, or water company threatened [...] any time in the past 12 m [facility], were you homeless or living in a care home (including now)? No 10/20/2024 Sex and Gender [...] documented as of this encounter Care Teams Inspector And Mender Relationship Specialty Start Date End Date Diaz Akers MD PCP - General Internal Medicine 10/20/24 documented as of this encounter
--- OUTSIDE RECORDS SUMMARY | 2024-11-08 18:01 | XMS_ITS | Encounter Summary ---
Author Organization [facility] Address [address] [place] [address] Care Team Providers Care Miner Name Role Phone Diaz Akers MD Primary Care Provider Soledad vailable Reason for Visit * Reason Comments Abnormal Test Result * Auth/Cert Specialty Diagnoses / Procedures Referred By Danielle rao Referred To Contact Diagnoses DKA (diabetic ketoacidosis) ([facility]) NSTEMI, DKA, Pneumonia Procedures OTHER ADMINISTRATIVE ADJUSTMENT (INSURANCE) Referral ID Status Reason Start Date Expiration Date Visits Re quested Visits Authorized [id number] 1 1 Encounter Details Date Type Department Care Team (Late st Contact Info) Description 10/31/2024 5:21 PM EST - 10/31/2024 6:26 PM EST Surgery [facility] [place] [facility] - Cardiac Catheterization Laboratory [address] [place] [address] Calixto Ureña MD [address] [facility] [address] [place] [id number] CORONARY ANGIO W/LV Social History Tobacco Use Types Packs/Day Years Used Date Smoking Tobacco: Never Passive Smoke Exposure: Never Smokeless Tobacco: Never Tobacco Cessation:Counseling Given: Not Answered [facility] Utilities Answer Date Recorded In the past 12 months has [employer] electric, gas, oil, or water company threatened [...] any time in the past 12 [facility], were you homeless or living in a correction (including now)? No 10/20/2024 Sex and Gender [...] been on hemodialysis follows with nephrology in [place]), insulin-dependent diabetes, hypertension presented from outside hospital and transferred to [facility] for concerns of NSTEMI and DKA. [...] 1830. On 10/18/2024, he was transferred to [facility] intensive care unit. He received treatment to DKA, acidosis and hyperglycemia improved on intravenous fluid and insulin therapy. Upon admission to [facility] NT-proBNP was found to have 70K [...] titration of his medications through his primary gynecologist.. Endocrine service provided recommendations for insulin and he was switched from Januvia to Tradjenta at the time of discharge. Consults: Consults placed: Procedures Inpatient consult to cardiology ([facility] Cardiology) Inpatient consult to cardiology ([facility] Cardiology) Inpatient consult to Endocrinology Inpatient consult to Nutrition Services Procedures: Surgical/Procedural Cases on this Admission Case IDs Date Procedure Surgeon Location Status [id number] 10/31/24 CORONARY ANGIO W/LV Calixto Ureña MD RETURN TO SERVICE INSPECTOR Comp Diagnostic Studies: XR Chest 1 view-Portable [...] effusions unchanged. Interpreted by: Mitchell Ascencio DO Label Printing Machinist I personally reviewed the images and the [...] Sample left with bedside RN. ACCESS: 6 Cypriot Vngu-S-Yayrcyvq closed needle/catheter system REQUESTING PRACTITIONER: Cheryl Blue [...] traversingadjacent organs or vascular structures. A 6 Cypriot Wfqb-B-Cwyzflfj closed needle/catheter system was utilized for access. [...] adjacent organs or vascular structures. A 6 Cypriot Jowf-S-Uwbbkxwe closed needle/catheter system was utilized for access. [...] system. Dr. Pushpa Gallegos was notified by [employer] text at 12:36 PM. XR Chest 1 [...] atelectasis, respectively. Interpreted by: Prem Coffman MD Label Printing Machinist I personally reviewed the images and the [...] system. Dr. Pushpa Gallegos was notified by [employer] at 12:36 PM. Results from last 7 [...] through Care Everywhere. * Angiogram Care After (Gambian) documented in this encounter Medications at Time [...] 11/01/2024 9:27 AM EST Endocrinology Progress Note SUPERVISOR DELIVERY DEPARTMENT Endocrinology - Medicine Today's Date: 11/01/2024 Admit [...] are interchangable*)- order B-D Debby 4 mm Cumberland (15 mL). Humalog KwikPen (U100) (the following are interchangable) - order B-D Debby 4 mm Cumberland (15 mL). * Lantus Solostar, Basaglar KwikPen, [...] 47 Diet: Diet Cardiac; Carb Counting 60g/meal 7376-5304 kcal; 2 gm NA (Low Sodium); Low [...] Intake/Output Summary (Last 24 hours) at 11/01/2024 0987 Last data filed at 11/01/2024 0916 Gross [...] intake - dietary recall from the pt and/senior information developer, and NPO status. Time spent communicating with other health lawn caretaker including the RN Signed Day Casarez Endocrinology [...] level of independence with functional mobility. Current [facility] Basic Mobility Score: 23 Rehab Plan of [...] Progressive Mobility Progressive Mobility Level Achieved Ambulation [facility] Basic Mobility Turning from your back to [...] Climbing 3-5 steps with a railing? 3 [facility] Basic Mobility Score 23 Therapy Assessment/Plan (PT) [...] d/t HTN + DM (neph Dr in [place]), admit as xfer fromOSH with dyspnea (COVID+) [...] Calcitriol daily. Needs to continue follow-up with sweater operator on d/c. Sign: Garth Perez DO 11/01/2024 12:58 PM * Ysabel Jones PA-C - 11/01/2024 7:25 AM EST Images from the original note were not included. 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 He was initially admitted to the MICU on insulin drip. Troponin found to be elevated 7626-8386, EKG noted to be sinus with poor R wave progression and nonspecific ST changes. He was initiated on a heparin drip for NSTEMI. Course further complicated by acute HFrEF LVEF 28%, COVID, and ALISA on CKD. [facility] with moderate proximal and mid LAD calcified focal stenosis, severe stenosis of nondominant RCA, recommended for medical management. Plan [facility] 10/31: moderate proximal and mid LAD calcified [...] agreement with plan of care as above. [facility] Cardiology will continue to follow. Subjective [...] 10/31/2024 8:26 PM EST Pt transported to [facility] on monitor. 0 KENDALL Richardson [...] 4:29 PM EST Certified Diabetes Care & Shipping Clerk Crating Note: Patient meets criteria for evaluation due [...] he is still here on Tuesday this [facility] can give him a reader with a [...] from diet unless treating low BG. Given [facility] Diabetes Tool Kit, Thriving with diabetes. Sections [...] [phone] Signed: Abbey RODNEY, RN, [facility] 10/31/24 8PM * Garth Perez DO - 10/31/2024 9:51 AM EST Date 10/31/2024 Assessment & Plan 79y/o male PMHx DM, HTN, CKD V (bCR~5 from 05/2023) d/t HTN + DM (neph Dr in [place]), admit as xfer fromOSH with dyspnea (COVID+) [...] from the original note were not included. 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 He was initially admitted to the MICU on insulin drip. Troponin found to be elevated 9503-7076, EKG noted to be sinus with poor R wave progression and nonspecific ST changes. He was initiated on a heparin drip forNSTEMI. Course further complicated by acute HFrEF LVEF 28%, COVID, and ALISA on CKD. Awaiting [facility] today. Plan NSTEMI NSVT HTN HsT peak [...] agreement with plan of care as above. [facility] Cardiology will continue to follow. Subjective [...] Medrano MD - 10/30/2024 9:43 AM EST [facility] Medicine Progress note Assessment & Plan NSTEMI [...] d/t HTN + DM (neph Dr in [place]), admit as xfer fromOSH with dyspnea (COVID+) [...] from the original note were not included. [facility] Cardiology Transfer Service Progress Note Chief [...] today - Strict I&Os, daily weights Primary Criminal Court Judge: [facility] Cardiology will continue to follow. Case discussed with [facility] attending Dr. Valentino Subjective Pt reports [...] d/t HTN + DM (neph Dr in [place]), admit as xfer fromOSH with dyspnea (COVID+) [...] hyperparathyroidism - continue calcitriol 0.5 mcg daily [facility] timing - TBD Subjective HPI Continues with O2 oxy mask overnight-weaned to NC this AM Heparin drip ongoing No dyspnea symptoms He remains patient despite multiple days of delay for [facility] Review of Systems Respiratory: negative Cardiovascular: negative [...] Diet Diabetic/ Calorie Controlled; Carb Counting 60g/meal 2604-5041 kcal History Diabetes History Pre-Admission Regimen: Lantus [...] in the patient record Speaking with a it web development consultant Reviewing Labs & Radiology Signed Lucinda Whyte Endocrinology - Medicine 10/29/2024 8:33 AM * Macy Macias PA-C - 10/29/2024 7:45 AM EST Images from the original note were not included. [facility] Cardiology Transfer Service Progress Note Chief [...] Plan NSTEMI NSVT HTN - Plan for [facility] on 10/30 -Troponin elevated 1830->4171, EKG showed [...] today - Strict I&Os, daily weights Primary Criminal Court Judge: [facility] Cardiology will continue to follow. Case discussed with [facility] attending Dr. Contreras Subjective Pt reports that he feels well Patient denies chest pain, shortness of breath, dizziness, lightheadedness, nausea, vomiting, palpitations Objective Telemetry Reviewed: NSR 78 Last Vitals Pulse:61,Resp:18,BP:(!) 144/65,SpO2:95 %,Weight:65.2 kg (143 lb 11.8 oz) Temp Last 24 hrs: Temp Min: 96.7 ??F (35.9 ??C) Max: 98.2 ??F (36.8 ??C) Intake/Output Summary (Last 24 hours) at 10/29/2024 07 Last data filed at 10/29/2024 0633 Gross [...] d/t HTN + DM (neph Dr in [place]), admit as xfer fromOSH with dyspnea (COVID+) and DKA. ?NSTEMI. TTE 10/18/24 - EF 28% - new. Assessment CKD 5 NSTEMI Anemia of CKD Hypocalcemia COVID + Plan No change to GFR RADHA risk remains unchanged [facility] timing - TBD Lytes reviewed - K, [...] 10/28/2024 9:31 AM EST Endocrinology Progress Note SUPERVISOR DELIVERY DEPARTMENT Endocrinology - Medicine Today's Date: 10/28/2024 Admit [...] Diet Diabetic/ Calorie Controlled; Carb Counting 60g/meal 6381-2953 kcal Steroids: None Infusions: heparin (porcine) IV [...] outside hospital with URI symptoms, transferred to [facility] for management of DKA and ICU, [...] 75 mg daily - Continue telemetry -- laboratory monitor most likely be on Monday 10/30, please [...] various nights and back to diet pending Robotics Engineer for several days with concern that he [...] Subjective Overnight: Patient did not go to Robotics Engineer yesterday, stable overnight no acute events Today: Patient seen and examined at this morning. He is on supplemental oxygen. He states he is feeling well and awaits Robotics Engineer. I communicated that the cath is again [...] Patient remains on heparin drip pending cardiac label printing machinist. Patient requires intermittent doses of IV Lasix for pulmonary edema and work of breathing. Kavya Burgess MD. PGY-2 Internal Medicine [place] Text Preferred Associated attestation - Madhav Ryan [...] outside hospital with URI symptoms, transferred to [facility] for management of DKA and ICU, [...] 75 mg daily - Continue telemetry -- laboratory monitor most likely be on Monday 10/30, please [...] patient has been n.p.o. at midnight pending Robotics Engineer for several days resuming a diet in [...] Subjective Overnight: Patient did not go to Robotics Engineer yesterday, stable overnight no acute events Today: Patient seen and examined at this morning. He is on supplemental oxygen. He states he is feeling well and awaits Robotics Engineer. I communicated that the cath is again [...] gap. 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 Patient requires intermittent doses of IV Lasix for pulmonary edema and work of breathing. Donavon Rodgers MD PGY-1 Internal Medicine [place] Text Preferred Associated attestation - Madhav Ryan [...] d/t HTN + DM ([place] Dr in [place]), admit as xfer fromOSH with dyspnea (COVID+) [...] 10/27/2024 9:07 AM EST Endocrinology Progress Note SUPERVISOR DELIVERY DEPARTMENT Endocrinology - Medicine Today's Date: 10/27/2024 Admit [...] Diet Diabetic/ Calorie Controlled; Carb Counting 60g/meal 9506-3500 kcal Steroids: none Infusions: dextrose, 25 mL/hr, [...] / Covid and DKA. Cannot rule out OR, COVID myocarditis, or stress induced cardiomyopathy at [...] private room post cath High risk for LAYOUT ARTIST remains unchanged Recommend avoiding albuterol transition to [...] 2/3 @ 2:30 Dr. Mario Alberto Alvarez [facility] cardiology will continue to follow. Case discussed with attending, Dr. Contreras Plan was communicated to primary team /and the [place] 3 team IMPROVE SCORE: . Stepdown / ICU / CCU Stay: 1-->Stepdown / ICU / CCU stay Age > 60 yrs: 1--> Age > 60 years IMPROVE SCORE: 2 DVT PPX: Heparin drip CODE STATUS:full code HCP/Decision maker: Patient Telemetry:Yes This note was prepared using voice recognition software and direct typing. Please excuse inadvertent sweater operator or typing errors, or uncorrected word [...] system. Dr. Pushpa Gallegos was notified by [place] text at 12:36 PM. Imaging Studies XR [...] effusions unchanged. Interpreted by: Mitchell Ascencio DO Label Printing Machinist I personally reviewed the images and the [...] Sample left with bedside RN. ACCESS: 6 Cypriot Spsj-R-Hxyrhtjw closed needle/catheter system REQUESTING PRACTITIONER: Cheryl Blue [...] traversingadjacent organs or vascular structures. A 6 Cypriot Jmjd-L-Vxosgskp closed needle/catheter system was utilized for access. [...] adjacent organs or vascular structures. A 6 Cypriot Thcj-B-Knuyhgpi closed needle/catheter system was utilized for access. [...] system. Dr. Pushpa Gallegos was notified by [place] text at 12:36 PM. XR Chest 1 [...] atelectasis, respectively. Interpreted by: Prem Coffman MD Label Printing Machinist I personally reviewed the images and the [...] / Covid and DKA. Cannot rule out OR, COVID myocarditis, or stress induced cardiomyopathy at this point. NSTEMI likely type II demand however unable to rule out type I hence awaiting cardiac Medication regimen Consulted IC appreciate input Patient will remain n.p.o. at midnight for hopefully for C and [facility] spoke with nephrology Dr. Perez who is in agreement to have the patient proceed with cath in a.m. given no availability today Continue heparin gtt per ACS protocol Continue ASA 81 mg daily Continue atorvastatin 80 mg daily Continue Toprol-XL 75 mg p.o. daily Continuous telemetry monitoring Patient will need a private room post cath High risk for LAYOUT ARTIST remains unchanged ALISA on CKD Creatinine peak [...] 2/3 @ 2:30 Dr. Mario Alberto Alvarez [facility] cardiology will continue to follow. Case discussed with attending, Dr. Contreras Plan was communicated to primary team dr Neymar Mcfarland /and the [place] 3 team IMPROVE SCORE: Stepdown / ICU / CCU Stay: 1-->Stepdown / ICU / CCU stay Age > 60 yrs: 1--> Age > 60 years IMPROVE SCORE: 2 DVT PPX: SC Heparin CODE STATUS:full code HCP/Decision maker: Patient Telemetry:Yes This note was prepared using voice recognition software and direct typing. Please excuse inadvertent sweater operator or typing errors, or uncorrected word [...] system. Dr. Pushpa Gallegos was notified by [place] text at 12:36 PM. Imaging Studies XR [...] effusions unchanged. Interpreted by: Mitchell Ascencio DO Label Printing Machinist I personally reviewed the images and the [...] Sample left with bedside RN. ACCESS: 6 Cypriot Iuqo-Q-Yodwdktq closed needle/catheter system REQUESTING PRACTITIONER: Cheryl Blue [...] traversingadjacent organs or vascular structures. A 6 Cypriot Yuar-M-Whjcyilc closed needle/catheter system was utilized for access. [...] adjacent organs or vascular structures. A 6 Cypriot Bwwg-W-Suxylkza closed needle/catheter system was utilized for access. [...] system. Dr. Pushpa Gallegos was notified by [place] text at 12:36 PM. XR Chest 1 [...] atelectasis, respectively. Interpreted by: Prem Coffman MD Label Printing Machinist I personally reviewed the images and the [...] Lateral leads Confirmed by DO Ladd Kyla ([id number]) on 10/25/2024 8:09:06 PM Medications Medications Scheduled [...] level of independence with functional mobility. Current [facility] Basic Mobility Score: 20 Rehab Plan of [...] Level Achieved Ambulation Ambulation Distance (Feet) 15 [facility] Basic Mobility Turning from your back to [...] Climbing 3-5 steps with a railing? 3 [facility] Basic Mobility Score 20 Therapy Assessment/Plan (PT) [...] d/t HTN + DM ([place] Dr in [place]), admit as xfer fromOSH with dyspnea (COVID+) [...] hypocalcemia and secondary hyperparathyroidism. His risk of LAYOUT ARTIST remains unchanged Subjective HPI Vipul remains with [...] 10/26/2024 9:39 AM EST Endocrinology Progress Note SUPERVISOR DELIVERY DEPARTMENT Endocrinology - Medicine Today's Date: 10/26/2024 Admit [...] team patient will be going to the Robotics Engineer. Currently n.p.o. Addendum: Notified by team, cath [...] outside hospital with URI symptoms, transferred to [facility] for management of DKA and ICU, [...] patient has been n.p.o. at midnight pending Robotics Engineer for several days resuming a diet in [...] Subjective Overnight: Patient did not go to Robotics Engineer yesterday, stable overnight no acute events Today: Patient seen and examined at this morning. He is on supplemental oxygen. He states he is feeling well and awaits Robotics Engineer. Patient continues to be very positive and [...] gap. 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 Patient requires intermittent doses of IV Lasix for pulmonary edema and work of breathing. Donavon Rodgers MD PGY-1 Internal Medicine [place] Text Preferred Associated attestation - Neymar Mcfarland [...] Neymar Mcfarland MD 10/27/2024 10:34 AM * RPASANNA Holbrook 10/25/2024 5:55 PM EST Images from [...] / Covid and DKA. Cannot rule out OR, COVID myocarditis, or stress induced cardiomyopathy at [...] 2/3 @ 2:30 Dr. Mario Alberto Alvarez [facility] cardiology will continue to follow. Case discussed with attending, Dr. Contreras Plan was communicated to primary team dr Neymar Mcfarland /and the [place] 3 team IMPROVE SCORE: Stepdown / ICU / CCU Stay: 1-->Stepdown / ICU / CCU stay Age > 60 yrs: 1--> Age > 60 years IMPROVE SCORE: 2 DVT PPX: Heparin drip CODE STATUS:full code HCP/Decision maker: Patient Telemetry:Yes This note was prepared using voice recognition software and direct typing. Please excuse inadvertent sweater operator or typing errors, or uncorrected word [...] system. Dr. Pushpa Gallegos was notified by [place] text at 12:36 PM. Imaging Studies XR [...] effusions unchanged. Interpreted by: Mitchell Ascencio DO Label Printing Machinist I personally reviewed the images and the [...] Sample left with bedside RN. ACCESS: 6 Cypriot Assc-T-Zagdyvtd closed needle/catheter system REQUESTING PRACTITIONER: Cheryl Blue [...] traversingadjacent organs or vascular structures. A 6 Cypriot Yuyu-V-Hnqayrue closed needle/catheter system was utilized for access. [...] adjacent organs or vascular structures. A 6 Cypriot Njmc-F-Lbcwwomk closed needle/catheter system was utilized for access. [...] system. Dr. Pushpa Gallegos was notified by [place] text at 12:36 PM. XR Chest 1 [...] atelectasis, respectively. Interpreted by: Prem Coffman MD Label Printing Machinist I personally reviewed the images and the [...] and diabetic kidney disease (he follows with sweater operator in [place]), who presented intially to OSH with URI [...] with falling creatinine still greater than 25% bobcat driver/labor providers are well aware of this condition [...] long time and has follow-up with a sweater operator in [place]. He feels very confident about his function [...] outside hospital with URI symptoms, transferred to [facility] for management of DKA and ICU, [...] patient has been n.p.o. at midnight pending Robotics Engineer for several days resuming a diet in [...] Subjective Overnight: Patient did not go to Robotics Engineer yesterday, stable overnight no acute events Today: Patient seen and examined at this morning. He is on supplemental oxygen. He states he is feeling well and awaits Robotics Engineer. Patient has been very patient and awaits Robotics Engineer Objective Last Vitals Pulse:77,Resp:16,BP:(!) 145/70,SpO2:(!) 91 %,Weight:65.9 [...] gap. 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 Patient requires intermittent doses of IV Lasix for pulmonary edema and work of breathing. Donavon Rodgers MD PGY-1 Internal Medicine [place] Text Preferred Associated attestation - Neymar Mcfarland [...] fluid overload patient has not gone to Robotics Engineer yet We will keep fingersticks every 4 [...] (Order- Specific), Last Rate: 15 Units/kg/hr (10/24/24 5183) Discharge Planning: Depending on disposition, was on [...] / Covid and DKA. Cannot rule out OR, COVID myocarditis, or stress induced cardiomyopathy at [...] arrange for cardiology follow-up prior to discharge [facility] cardiology will continue to follow. Case discussed with attending, Dr. Contreras Plan was communicated to primary team dr Neymar Mcfarland /and the [place] [id number] team IMPROVE SCORE Stepdown / ICU / CCU Stay: 1-->Stepdown / ICU / CCU stay Age > 60 yrs: 1--> Age > 60 years IMPROVE SCORE: 2 DVT PPX: Heparin drip CODE STATUS:full code HCP/Decision maker: Patient Telemetry:Yes This note was prepared using voice recognition software and direct typing. Please excuse inadvertent sweater operator or typing errors, or uncorrected word [...] system. Dr. Pushpa Gallegos was notified by [place] text at 12:36 PM. Imaging Studies XR [...] effusions unchanged. Interpreted by: Mitchell Ascencio DO Label Printing Machinist I personally reviewed the images and the [...] Sample left with bedside RN. ACCESS: 6 Cypriot Qvee-M-Ezzpoghj closed needle/catheter system REQUESTING PRACTITIONER: Cheryl Blue [...] traversingadjacent organs or vascular structures. A 6 Cypriot Rexu-Y-Grkyvtes closed needle/catheter system was utilized for access. [...] adjacent organs or vascular structures. A 6 Cypriot Aaqa-F-Toqnzjum closed needle/catheter system was utilized for access. [...] effusion. There is no previous study for atl rison in our system. Dr. Pushpa Gallegos was notified by [place] text at 12:36 PM. XR Chest 1 [...] atelectasis, respectively. Interpreted by: Prem Coffman MD Label Printing Machinist I personally reviewed the images and the [...] outside hospital with URI symptoms, transferred to [facility] for management of DKA and ICU, [...] the patient will be taken to the Robotics Engineer and will remain n.p.o. until the procedure is over. The patient had increasing oxygen requirements overnight and repeat chest x-ray showed pulmonary edema. We discussed these findings with the Robotics Engineer as they would like to give gentle [...] insulin. The patient has been n.p.o. pending Robotics Engineer and there is concern that he may [...] gap. 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 Donavon Rodgers MD PGY-1 Internal Medicine [place] Text Preferred Associated attestation - Neymar Mcfarland [...] and diabetic kidney disease (he follows with sweater operator in [place]), who presented intially to OSH with URI [...] with slight improvement to 4.3 Plan for label printing machinist now pushed a day or two Lázaro Score slightly improving with falling creatinine bobcat driver/labor providers are well aware of this condition [...] long time and has follow-up with a sweater operator in [place]. He feels very confident about his function [...] found for: TACROLIMUS No results found for: [id number] , TOTVOL , CRCLR , PERIOD No [...] 10/21 2104 Sincerely, Marty Kent MD, OSCAR Spinning Lathe Operator Automatic Chronic Kidney Disease [facility] Attending Non Profit Director, Partner, [facility] Continuous Medication Ordered Dose/Rate, [...] / Covid and DKA. Cannot rule out OR, COVID myocarditis, or stress induced cardiomyopathy at [...] atorvastatin 80 mg daily Continuous telemetry monitoring LAISA on CKD Creatinine peak of 5.2, down to 4.1 Nephrology following appreciate recommendations No indication for HD at this time Daily BMPs Appreciate input from nephrology to proceed with cath Still waiting on IC for evaluation HTN HLD Continue with atorvastatin 80 mg p.o.daily Continue with Toprol-XL 50 mg p.o. daily Will arrange for cardiology follow-up prior to discharge [facility] cardiology will continue to follow. Case discussed with attending, Dr. Contreras Plan was communicated to primary team dr Neymar Mcfarland /and the [place] 3 team IMPROVE SCORE: Stepdown / ICU / CCU Stay: 1-->Stepdown / ICU / CCU stay Age > 60 yrs: 1--> Age > 60 years IMPROVE SCORE: 2 DVT PPX: Heparin drip CODE STATUS:full code HCP/Decision maker: Patient Telemetry:Yes This note was prepared using voice recognition software and direct typing. Please excuse inadvertent sweater operator or typing errors, or uncorrected word [...] system. Dr. Pushpa Gallegos was notified by [place] text at 12:36 PM. Imaging Studies XR [...] effusions unchanged. Interpreted by: Mitchell Ascencio DO Label Printing Machinist I personally reviewed the images and the [...] Sample left with bedside RN. ACCESS: 6 Cypriot Nbxt-N-Nmfejyii closed needle/catheter system REQUESTING PRACTITIONER: Cheryl Blue [...] traversingadjacent organs or vascular structures. A 6 Cypriot Lwmw-Y-Fulkwygl closed needle/catheter system was utilized for access. [...] adjacent organs or vascular structures. A 6 Cypriot Sfiv-X-Ycchsyux closed needle/catheter system was utilized for access. [...] system. Dr. Pushpa Gallegos was notified by [place] text at 12:36 PM. XR Chest 1 [...] atelectasis, respectively. Interpreted by: Prem Coffman MD Label Printing Machinist I personally reviewed the images and the [...] QT has lengthened Confirmed by MD Alex, [facility] (42) on 10/22/2024 7:57:16 AM Medications Medications [...] outside hospital with URI symptoms, transferred to [facility] for management of DKA and ICU, [...] gap. 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 Donavon Rodgers MD PGY-1 Internal Medicine [place] Text Preferred Associated attestation - Neymar Mcfarland [...] (he follows with Dr Henrik Bird in [place]), who presented intially to OSH with URI [...] with slight improvement to 4.3 Plan for label printing machinist today. Lázaro Score with 100cc of contrast: [...] long time and has follow-up with a sweater operator in [place]. He feels very confident about his function [...] found for: TACROLIMUS No results found for: [id number] , TOTVOL , CRCLR , PERIOD No [...] 10/21 2105 Sincerely, Marty Kent MD, OSCAR Spinning Lathe Operator Automatic Chronic Kidney Disease [facility] Attending Non Profit Director, Partner, [facility] Physicians Continuous Medication Ordered Dose/Rate, Route, [...] / Covid and DKA. Cannot rule out OR, COVID myocarditis, or stress induced cardiomyopathy at [...] arrange for cardiology follow-up prior to discharge [facility] cardiology will continue to follow. Case [...] software and direct typing. Please excuse inadvertent sweater operator or typing errors, or uncorrected word [...] system. Dr. Pushpa Gallegos was notified by [place] text at 12:36 PM. Imaging Studies XR [...] effusions unchanged. Interpreted by: Mitchell Ascencio DO Label Printing Machinist I personally reviewed the images and the [...] Sample left with bedside RN. ACCESS: 6 Cypriot Gkmf-Y-Xtsvodtm closed needle/catheter system REQUESTING PRACTITIONER: Cheryl Blue [...] traversingadjacent organs or vascular structures. A 6 Cypriot Crmp-G-Qrzmsoig closed needle/catheter system was utilized for access. [...] adjacent organs or vascular structures. A 6 Cypriot Ibnx-L-Habhkysw closed needle/catheter system was utilized for access. [...] system. Dr. Pushpa Gallegos was notified by [place] text at 12:36 PM. XR Chest 1 [...] atelectasis, respectively. Interpreted by: Prem Coffman MD Label Printing Machinist I personally reviewed the images and the [...] QT has lengthened Confirmed by MD Alex, [facility] (42) on 10/22/2024 7:57:16 AM Medications Medications [...] 10/21/24 0803 10/21/24 0309 10/20/24 0215 10/19/24 0929 SODIUM mmol/L -- 145 -- -- 140 [...] outside hospital with URI symptoms, transferred to [facility] for management of DKA and ICU, [...] telemetry -- Cardiology will bring patient for label printing machinist tomorrow for RHC and LHC, NPO at [...] gap. 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 Donavon Rodgers MD PGY-1 Internal Medicine [place] Text Preferred Associated attestation - Neymar Mcfarland [...] Diet Diabetic/ Calorie Controlled; Carb Counting 60g/meal 4734-8322 kcal Steroids: None. Drips: None. History Diabetes [...] Diet Diabetic/ Calorie Controlled; Carb Counting 60g/meal 5319-7258 kcal Steroids: None. Drips: None. History Diabetes [...] outside hospital with URI symptoms, transferred to [facility] for management of DKA and ICU, [...] Antonio Hameed PGY1, Internal Medicine Available on [place] Text 10/21/2024 10:39 AM Associated attestation - [...] MD (Nina) MPH Chief, Department of Medicine [phone] * Linda Rivera PA-C - 10/21/2024 6:28 AM EST Images from the original note were not included. [facility] Cardiology Transfer Service Progress Note Chief [...] viral pneumonia and DKA. Cannot rule out OR, COVID myocarditis, or stress induced cardiomyopathy at [...] outpatient cardiology follow up prior to discharge. [facility] cardiology will continue to follow. Case [...] inpatient Arrived From Hospital General Information Comments [facility] Initial Information How to be Addressed Vipul Source of Information patient;family;health record Stated Reason for Admission Covid, Heart, High Sugar Levels Patient Aware of Diagnosis yes Limitations on Visitors/Phone Calls none Temporary Family Living Arrangements (While Hospitalized) none needed Adaptive Services not applicable Does the Patient Have a CT DNR [place] Bracelet or State DNR Form? no Clinical Trial not applicable Designated Caregiver for Discharge Coordination Do You Have a Designated Caregiver for Discharge? yes Designated Caregiver's Name Prem Wilder Caregiver's Relationship to Patient children librarian's Caregiver's Address Same as the patient's address. [...] were you homeless or living in a correction (including now)? N Food Insecurity Within the [...] of Pulmonary, Critical Care, and Sleep Medicine [address] [place] [address], [address] [address] Critical Care Progress Note Assessment & Plan [...] system. Dr. Pushpa Gallegos was notified by [place] text at 12:36 PM. GI: >Nutrition: Diet/Nutrition Received: consistent carb/diabetic diet Diet Diabetic/ Calorie Controlled; Carb Counting 60g/meal 3939-8116 kcal Renal: CKD 5, stable Monitor >Intake [...] if appropriate. This report was generated using [employer] Speaking dictation software. Although every attempt has [...] Diet Diabetic/ Calorie Controlled; Carb Counting 60g/meal 3073-4778 kcal Steroids: None. Drips: None. History Diabetes [...] from the original note were not included. [facility] CRITICAL CARE RESIDENT PROGRESS NOTE LOS: 2 CODE:: Code Status Procedures Full Code Subjective Hospital Course: This is a 79 yo male with PMHx of stage V CKD (has not been on hemodialysis follows with nephrologyin [place]), insulin-dependent diabetes, hypertension, HFrEF with acute decompensation [...] Problem List Principal Problem: DKA (diabetic ketoacidosis) ([facility]) (POA: Yes) Resolved Problems: Assessment Neymar Baum Meño 79 y.o. w/ PMHx of stage V CKD (has not been on hemodialysis follows with nephrology in [place]), insulin-dependent diabetes, hypertension admitted to ICU for [...] Diet Diabetic/ Calorie Controlled; Carb Counting 60g/meal 8374-7009 kcal NEPHROLOGY ALISA on stage III CKD [...] Tilley. Sign Lesly Luke MD Available on [place] Text 10/20/2024 7:48 AM * Linda Rivera PA-C - 10/20/2024 6:40 AM EST Images from the original note were not included. [facility] Cardiology Transfer Service Progress Note Chief [...] viral pneumonia and DKA. Cannot rule out OR, COVID myocarditis, or stress induced cardiomyopathy at [...] outpatient cardiology follow up prior to discharge. [facility] cardiology will continue to follow. Case [...] been on hemodialysis follows with nephrology in [place]), insulin-dependent diabetes, hypertension admitted to ICU for [...] MD Donavon Amos MD PGY-1 Internal Medicine [place] Text Preferred ICU Check-list Code: Code Status [...] Sample left with bedside RN. ACCESS: 6 Cypriot Lkzs-B-Zkzptwco closed needle/catheter system REQUESTING PRACTITIONER: Cheryl Blue [...] traversingadjacent organs or vascular structures. A 6 Cypriot Jhmm-A-Vbcpqibl closed needle/catheter system was utilized for access. [...] adjacent organs or vascular structures. A 6 Cypriot Cgtl-X-Weotjlqn closed needle/catheter system was utilized for access. [...] effusions unchanged. Interpreted by: Mitchell Ascencio DO Label Printing Machinist DIET/NUTRITION: Diet/Nutrition Received: NPO Diet NPO; Meds Behavioral/Sedation scales: CAM-ICU Delirium Present: Negative Rea Agitation Sedation Scale (RASS) / Modified RASS: 0-->alert and calm Ventilator settings: Associated attestation - Kristopher Hickey MD - 10/19/2024 11:18 PM EST [facility] Attestation note: Kristopher Hickey MD Critical care [...] Pulmonary, Critical Care, and Sleep Medicine [address], [address], [place] [address] Critical Care Progress Note Assessment & Plan [...] system. Dr. Pushpa Gallegos was notified by [place] text at 12:36 PM. GI: >Nutrition: Diet/Nutrition [...] if appropriate. This report was generated using [employer] dictation software. Although every attempt has been made by the provider to proofread this document, occasional misspellings and typographical errors may still be present. Sign: Kristopher Hickey MD 10/19/2024 9:56 AM * Linda Rivera PA-C - 10/19/2024 6:33 AM EST Images from the original note were not included. [facility] Cardiology Transfer Service Progress Note Chief [...] viral pneumonia and DKA. Cannot rule out OR, COVID myocarditis, or stress induced cardiomyopathy at [...] outpatient cardiology follow up prior to discharge. [facility] cardiology will continue to follow. Case [...] Pulmonary, Critical Care, and Sleep Medicine [address], [address] [address] Critical Care Progress Note Assessment & Plan [...] There were discussions of HD with his sweater operator Dr. Pelon Smith Electrolyte monitoring Avoid nephrotoxins, monitor urine output Get nephrology on board given likely need for cardiac cath >Intake & Output No intake or output data in the 24 hours ending 10/18/24 2214 Endo: Glucommander protocol Gentle IV fluids given [...] 0-100 Units/hr, Last Rate: 10 Units/hr (10/18/24 0732) Lines: Peripheral IV - Single Lumen (Adult) [...] if appropriate. This report was generated using [employer] dictation software. Although every attempt has been made by the provider to proofread this document, occasional misspellings and typographical errors may still be present. Sign: Pushpa Gallegos MD 10/18/2024 7:54 AM documented in this encounter H&P Notes * Cheryl Blue MD - 10/18/2024 8:33 AM EST Images from the original note were not included. [facility] MICU H&P LOS: 0 CODE: Code Status Procedures Full Code Assessment and Plan Problem List Principal Problem: DKA (diabetic ketoacidosis) (HCC) (POA: Yes) Resolved Problems: Assessment Neymar Wilder 79 y.o. w/ PMHx of stage V CKD (has not been on hemodialysis follows with nephrology in [place]), insulin-dependent diabetes, hypertension admitted to ICU for [...] V CKD (with prior discussions with patient's sweater operator regarding possible initiation of HD) Plan by [...] CKD (there were discussions with patient's prior sweater operator Dr. Pelon Smith regarding HD) Initial BUN/creatinine [...] been on hemodialysis follows with nephrology in [place]), insulin-dependent diabetes, hypertension presented from outside hospital and transferred to [facility] for concerns of NSTEMI and DKA. [...] atelectasis, respectively. Interpreted by: Prem Coffman MD Label Printing Machinist I personally reviewed the images and the [...] Procedure(s): Bilateral thoracentesis Indications: Bilateral pleural effusion Securities Sales Associate: None Anesthesia: None Fluid: 850ml of clear [...] ESTAssociated Order(s): IP CONSULT TO NUTRITION SERVICES [facility] Nutrition Note Visit Type: initial assessment [...] lb 1.8 oz) Fluids: 1600ml based on PROPULSION MOTOR AND GENERATOR REPAIRER Method (or per MD/team) Estimated/Assessed Carbohydrates Needs: [...] 1. 79 y.o. male with CAD, s/p OR 02/2024, transferred from [facility] with NSTEMI. 2. HFrEF with newly reduced [...] Illness 79 y.o. male with CAD, s/p OR 02/2024, HFrEF , CKD stage V, Cr [...] H&P, physical assessment, and educated on cardiac Robotics Engineer procedure was approximately 60 minutes The following information is collected for participation in the [employer] [employer] CATH/PCI Registry (ACCNCDR) and is used for submission of data and may not be entirely consistent with the clinical evaluation. ACC-NCDR CathPCI V5 Collection Form History and Risk Factors Hypertension: Yes Diabetes mellitus: Yes Hx of CAD: No Prior OR: Yes Date of most recent OR: 02/08/2024 Prior CABG: No Prior PCI: No [...] assessed: No Indications and Presentation Indication(s) for label printing machinist visit: suspected CAD Chest pain symptom assessment: [...] medical Struve coronary artery disease status post OR in February 2024, heart failure with reduced [...] patient. Risks including but not limited to OR, stroke, emergency bypass surgery, bleeding or vascular [...] understanding and wishes to proceed. * Veronica Hmam PA-C - 10/19/2024 9:23 AM EST Nephrology Consult Note Neymar Wilder Date of Consult: 10/19/2024 Patient's Primary Care Physician: No primary care provider on file. Physician Requesting Consult: Pushpa Gallegos MD Reason for Consultation: Chronic kidney disease stage V Impression Neymar Wilder is a 79 y.o. male with PMHx including CKD V (BlCr 5.0, 11/03), DM II, HTN who was transferred from [facility] to on 10/18/24 with concern for NSTEMI [...] been on hemodialysis follows with nephrology in [place]), insulin-dependent diabetes, hypertension presented from outside hospital and transferred to [facility] for concerns of NSTEMI and DKA. [...] found for: TACROLIMUS No results found for: [id number] , TOTVOL , CRCLR , PERIOD No [...] as written. Signed, Marty Kent MD, OSCAR Spinning Lathe Operator Automatic, CKD, [facility] Chief of Nephrology, [facility] [place] * Tangela Reed PA-C - [...] Complaint Diabetes Management [facility]ive: [facility] infection, interviewed [...] from the original note were not included. [facility] CARDIOLOGY TRANSFER SERVICE Date of Consult: 10/18/2024 Patient's Primary Care Physician: No primary care provider on file. Physician Requesting Consult: Pushpa Gallegos MD Primary Criminal Court Judge: - Reason for Consultation: Shortness of Breath [...] monitor with RN Nesha Jacobsen RN 10/18/24 3143 * Kristian Angeles RN - 10/18/2024 12:07 [...] history of diabetes presents in transfer from [place] with the patient was found to be [...] from external provider, facility, or healthcare organization: [place] ED note History obtained from other source [...] to fluid overload. Adriel Funez RN 10/18/24 3721 * Adriel Funez RN - 10/18/2024 5:24 [...] out type I hence awaiting cardiac 11/01 [facility] 10/31: moderate proximal and mid LAD calcified [...] legal medical record. Vickie Norris RN, CDS [phone] * Case Coordination-Payor Communication - Meme Jones [...] Continued Stay Review Date: 10/31/2024 Clinical Update: [facility] today, remains NPO Neymar remains on heparin [...] arrived to the unit at 2000 from label printing machinist. Upon assessment pt is Aox4, NSR on [...] cath fluids. Heparin gtt infusing. Sent to label printing machinist for LHC.Strict isolation d/c. Oksana Zhang 10/31/2024 [...] 1830. On 10/18/2024, he was transferred to [facility] intensive care unit. He received treatment to DKA, acidosis and hyperglycemia improved on intravenous fluid and insulin therapy. Upon admission to [facility] NT-proBNP was found to have 70K [...] clinically stable for transition. Plan is for [facility] today. At this time transition plan remains [...] given today per order. Pt transferring to [facility], Report given to RN. Zaria Leyva 10/28/2024 6:30 PM * Plan of Care - Anny Joyce PA-C - 10/28/2024 3:36 PM EST Images from the original note were not included. [facility] Cardiology Transfer Service Plan of Care Note Pt noted to have ~20 beats of Vtach on monitor. Reportedly asymptomatic and hemodynamically stable during episode. Recommendations: -Aggressive electrolyte replacement with 2g IV Mag and 20 mg PO K+ -Lopressor 25 mg PO x1 with plan to increase Toprol-XL 100 mg daily tomorrow -No antiarrhythmic at this time -Pacer pads on -Tentatively planned for [facility] Tuesday, if VT persists contact label printing machinist sooner for consideration of more urgent catheterization [...] Burgess MD Internal Medicine PGY2 Available via Sezion 10/28/24 10:54 AM * Plan of Care [...] remained stable and we continue optimizing for Robotics Engineer. Catheter most likely happen early next week. He was appreciated update and I answered all his questions to the best my ability. Donavon Rodgers MD PGY-1 Internal Medicine [place] Text Preferred * Plan of Care - [...] of Care Reviewed With: patient Outcome Evaluation: 3444-1010: Neymar was A&Ox4 and had no complaints [...] Summary: pending cardiac cath Patient is from [place]. Recommendation: dispo plan home with HC services [...] ability. Donavon Rodgers MD PGY-1 Internal Medicine [place] Text Preferred * Plan of Care - Sirisha Adams RN - 10/26/2024 4:49 AM EST Progress: improving Outcome Evaluation: [id number]: Neymar remains alert and oriented *4. no shortness of breath. Continued on 4L oxymask, sating above goal. Continued on heparin drip. NPO since midnight for left and right heart cath today. slept between care. Sirisha Adams 10/26/2024 4:49 AM * Plan of Care - Olga Terrell RN - 10/25/2024 6:50 PM EST Plan of Care Reviewed With: patient Progress: improving Outcome Evaluation: 1709-1886. Pt alert and oriented *4. No reports [...] PM EST Patient set to go to label printing machinist tomorrow, has been made NPO at midnight. Called bed management to facilitate transfer of patient to [address] in a private room 2/2 COVID [...] update Donavon Rodgers MD PGY-1 Internal Medicine [place] Text Preferred * Plan of Care - [...] Review Date: 10/25/2024 Clinical Update: NPO for label printing machinist today. Spot dose Lasix. Continues on heparin gtt while awaiting label printing machinist. Plan: #NSTEMI #Acute decompensated HFrEF (LVEF 28%) [...] with falling creatinine still greater than 25% laboratory monitor providers are well aware of this condition [...] Reviewed With: patient Progress: improving Outcome Evaluation: 3582-7416. Pt alert and oriented *4. No reports [...] for his father to go to the Robotics Engineer today. He had increasing oxygen requirements overnight [...] ability. Donavon Rodgers MD PGY-1 Internal Medicine [place] Text Preferred * Plan of Care - Sirisha Adams RN - 10/24/2024 6:44 AM EST Outcome Evaluation: 7152-2072: Neymar is alert and oriented *4. Denies [...] Terrell RN - 10/23/2024 6:57 PM EST [id number]. Pt alert and oriented *4. No reports [...] With: patient Progress: no change Outcome Evaluation: 9078-5929: No acute changes. Heparin gtt adjusted per [...] of Care Reviewed With: patient Outcome Evaluation: 7547-0739: In the beginning of the shift Neymar [...] ability. Donavon Rodgers MD PGY-1 Internal Medicine [place] Text Preferred * Rehab Therapy Consults - [...] level of independence with functional mobility. Baseline [facility] Basic Mobility Score: 24 Current [facility] Basic Mobility Score: 20 Objective Data ROM: [...] outside hospital with URI symptoms, transferred to [facility] for management of DKA and ICU, [...] Progressive Mobility Level Achieved Transferring to Chair [facility] Basic Mobility Turning from your back to [...] Climbing 3-5 steps with a railing? 3 [facility] Basic Mobility Score 20 Therapy Assessment/Plan (PT) [...] PT goal 1 Transfer Goal 1 (PT) [place] Level/Cues Needed (Transfer Goal 1, PT) modified independence Time Frame (Transfer Goal 1, PT) 2 weeks Activity/Assistive Device (Transfer Goal 1, PT) transfers, all;walker, rolling Gait Training Goal 1 (PT) Time Frame (Gait Training Goal 1, PT) 2 weeks [place] Level (Gait Training Goal 1, PT) modified independence Activity/Assistive Device (Gait Training Goal 1, PT) gait (walking locomotion);walker, rolling Distance (Gait Training Goal 1, PT) 300 feet Stairs Goal 1 (PT) [place] Level/Cues Needed (Stairs Goal 1, PT) supervision [...] of Care Reviewed With: patient Outcome Evaluation: 1694-9586: Neymar was A&Ox4 and had no complaints [...] Progress: no change Outcome Evaluation: Arrived from [facility] around 1600. Skin check complete with 2nd [...] person supports:Self and Family PCP: Updated in [employer]. Added his preferred pharmacy as well. Anticipated [...] Continue Cierra Greenberg MC PGY-3 Internal Medicine [facility] Available on TigerText * Plan [...] tonight. Donavon Rodgers MD PGY-1 Internal Medicine [place] Text Preferred * Case Coordination-Payor Communication - Meme Jones - 10/19/2024 7:24 AM EST Per State [facility] General Statutes Sec: [id number]: Notification of determination communicated within 2business days of receipt of all information necessary to complete the review. Please fax authorization determination to [phone] or call [phone] * Case Coordination-Payor Communication - Nathalia Liao RN - 10/19/2024 6:14 AM EST Type: (Inpt/Obs): Inpatient Date of Admission: 10/18/2024 Admitting Dx: DKA HPI: 79 y.o. w/ PMHx of stage V CKD (has not been on hemodialysis follows with nephrology in [place]), insulin-dependent diabetes, hypertension presented from outside hospital and transferred to [facility] for concerns of NSTEMI and DKA. [...] V CKD (with prior discussions with patient's sweater operator regarding possible initiation of HD) Vitals: Pulse:86,Resp:20,BP:138/69,SpO2:92 [...] CKD (there were discussions with patient's prior sweater operator Dr. Pelon Smith regarding HD) Initial BUN/creatinine [...] OF CARE TEST ORDERABLES Performing Organization Address [facility] Phone Number HOSPITAL LAB See Below * (ABNORMAL) POCT Glucose, Fingerstick (11/01/2024 8:21 AM EST) POC Glucose 111(H) 65 - 99 mg/dL 11/01/2024 11:56 AM EST Blood specimen / Unknown 11/01/2024 8:21 AM EST 11/01/2024 11:56 AM EST Fuad Winter MD POINT OF CARE TEST ORDERABLES Performing Organization Address [facility] Number [facility] LAB See Below * (ABNORMAL) Phosphorus (Early AM) (11/01/2024 6:20 AM EST) Phosphorus 4.7(H) 2.7 - 4.5 mg/dL 11/01/2024 7:58 AM EST [facility] Blood (Plasma/Serum) 11/01/2024 6:20 AM EST 11/01/2024 6:57 AM EST Jonna Donis PA-C LAB BLOOD ORDERABL ES Performing Organization Address [facility] Number [address] [address], [address] [address] * MAGNESIUM (11/01/2024 6:20 AM EST) Magnesium 1.6 1.6 - 2.7 mg/dL 11/01/2024 7:58 AM EST [facility] Blood (Plasma/Serum) 11/01/2024 6:20 AM EST 11/01/2024 6:57 AM EST Jonna Donis PA-C LAB BLOOD ORDERABL ES Performing Organization Address [facility] [place] [address], [place] [address] * (ABNORMAL) COMPLETE BLOOD COUNT, WITHOUT DIFFERENTIAL (11/01/2024 6:20 AM EST) [facility] White Blood Cell Count 9.1 4.0 - 11.0 Thou/uL 11/01/2024 7:10 AM [facility] Platelet Count 261 150 - 450 Thou/uL 11/01/2024 7:10 AM [facility] Hemoglobin 9.2(L) 13.0 - 17.7 g/dL 11/01/2024 7:10 AM [facility] Hematocrit 29.7(L) 39.0 - 54.0 % 11/01/2024 7:10 AM [facility] Red Blood Cell Count 3.00(L) 4.50 - 6.20 Mil/uL 11/01/2024 7:10 AM [facility] MCV 99 80 - 100 fL 11/01/2024 7:10 AM [facility] MCH 30.7 27.0 - 31.0 pg 11/01/2024 7:10 AM [facility] MCHC 31.0 30.0 - 36.0 g/dL 11/01/2024 7:10 AM [facility] RDW 16.2(H) 11.5 - 14.5 % 11/01/2024 7:10 AM [facility] MPV 11.4 7.5 - 12.5 fL 11/01/2024 7:10 AM [facility] Blood Blood specimen / Unknown 11/01/2024 6:20 AM EST 11/01/2024 6:57 AM EST Jonna Donis PA-[place] [address], [place] [address] * (ABNORMAL) BASIC METABOLIC PANEL (11/01/2024 6:20 AM EST) [facility] Glucose 92 65 - 99 mg/dL 11/01/2024 7:58 AM [facility] Comment:Fasting: <100 mg/dL, Non-Fasting: <200 mg/dL (ADA 2004) Blood Urea Nitrogen (BUN) 41(H) 8 - 21 mg/dL 11/01/2024 7:58 AM [facility] Creatinine 4.5(H) 0.5 - 1.3 mg/dL 11/01/2024 7:58 AM [facility] eGFR 13(L) >59 11/01/2024 7:58 AM [facility] Comment:CKD-EPI (2020) in mL /min/1.73 sq meters. Sodium 140 136 - 145 mmol/L 11/01/2024 7:58 AM [facility] Potassium 4.8 3.4 - 5.3 mmol/L 11/01/2024 7:58 AM [facility] Chloride 104 98 - 107 mmol/L 11/01/2024 7:58 AM [facility] CO2 22 22 - 33 mmol/L 11/01/2024 7:58 AM [facility] Anion Gap 14 7 - 17 11/01/2024 7:58 AM [facility] Calcium 9.3 8.7 - 10.5 mg/dL 11/01/2024 7:58 AM [facility] BUN/Creatinine Ratio 9(L) 10.0 - 25.0 Ratio 11/01/2024 7:58 AM [facility] Blood (Plasma/Serum) 11/01/2024 6:20 AM EST 11/01/2024 6:57 AM EST Jonna Donis PA-[place] [address], [place] [address] * (ABNORMAL) POCT Glucose, Fingerstick (11/01/2024 1:58 [...] from the original result were not included. [facility] - Cardiac Catheterization Laboratory PATIENT DEMOGRAPHIC INFORMATION Name: Neymar Wilder : 1945 79 y.o. Sex: male Gender: male Procedure Date: 10/31/2024 PROCEDURE DETAILS Billet Checker: Calixto Ureña MD Fellow: None Securities Sales Associate(s): none Indications for Procedure: ACS, drop in EF Referring Physician: Neyamr Mcfarland Referring Criminal Court Judge: PCP: Diaz Akers MD Procedure(s): Procedures: ??* [...] medical Struve coronary artery disease status post OR in February 2024, heart failure with reduced [...] this patient that I request from a [facility] PA/SUPERVISOR DELIVERY DEPARTMENT/fellow/staff member. Calixto Ureña MD [facility] 10/31/2024 ??6:57 PM Coronary Findings Diagnostic Dominance: [...] POCT Glucose, Fingerstick (10/31/2024 4:45 PM EST) [facility] POC Glucose 74 65 - 99 mg/dL 10/31/2024 4:46 PM EST Blood specimen / Unknown 10/31/2024 4:45 PM EST 10/31/2024 4:46 PM EST Fuad Winter MD POINT OF CARE TEST ORDERABLES HOSPITAL LAB See Below * Heparin Assay (Anti Xa) (10/31/2024 3:28 PM EST) [facility] Anti Xa 0.36 IU/mL 10/31/2024 4:07 PM EST [facility] Comment: (NOTE) Heparin Thromboembolic/Standard/Full Dose Protocol: [...] MD LAB BLOOD ORDERABLES Performing Organization Address [facility] [place] [address], [place] [address] * POCT Glucose, Fingerstick (10/31/2024 12:04 PM EST) POC Glucose 92 65 - 99 mg/dL 10/31/2024 12:21 PM EST Blood specimen / Unknown 10/31/2024 12:04 PM EST 10/31/2024 12:21 PM EST Fuad Winter MD POINT OF CARE TEST ORDERABLES Performing Organization Address [facility] Phone Number [facility] LAB See Below * POCT Glucose, Fingerstick (10/31/2024 8:13 AM EST) POC Glucose 84 65 - 99 mg/dL 10/31/2024 8:15 AM EST Blood specimen / Unknown 10/31/2024 8:13 AM EST 10/31/2024 8:15 AM EST Fuad Winter MD POINT OF CARE TEST ORDERABLES Performing Organization Address [facility] Phone Number [facility] LAB See Below * (ABNORMAL) High Sensitivity Troponin T (10/31/2024 7:16 AM EST) [facility] High Sensitivity Troponin T 396(HH) <23 ng/L 10/31/2024 9:15 AM [facility] Delta (Change) NO PREVIOUS RESULT <3 10/31/2024 9:15 AM EST [facility] Plasma/Serum 10/31/2024 7:16 AM EST 10/31/2024 7:47 AM EST Madhav Ryan MD LAB BLOOD ORDERABLES Performing Organization Address [facility] [place] [address], [place] [address] * TSH, HIGHLY SENSITIVE (10/31/2024 7:16 AM EST) [facility] TSH, Highly Sensitive 2.06 0.27 - 4.20 mIU/L 10/31/2024 9:15 AM EST [facility] Plasma/Serum 10/31/2024 7:16 AM EST 10/31/2024 7:47 AM EST Madhav Ryan MD LAB BLOOD ORDERABLES Performing Organization Address City/[facility] Co de Phone Number [facility] [address] [place] [address], [place] [address] * Heparin Assay (Anti Xa) (10/31/2024 7:16 AM EST) [facility] Anti Xa 0.54 IU/mL 10/31/2024 8:07 AM [facility] Comment: (NOTE) Heparin Thromboembolic/Standard/Full Dose Protocol: [...] LAB BLOOD ORDERAB LES Performing Organization Address [facility]/State/[facility] [place] [address], [facility] [address] [place] [address] * (ABNORMAL) Phosphorus (Early AM) (10/31/2024 7:16 AM EST) Phosphorus 4.7(H) 2.7 - 4.5 mg/dL 10/31/2024 8:55 AM [facility] Blood (Plasma/Serum) 10/31/2024 7:16 AM EST 10/31/2024 7:47 AM EST Jonna Giraldo Rawporter PA-C LAB BLOOD ORDERABL ES Performing Organization Address City/[facility] [place] [address], [place] [address] * MAGNESIUM (10/31/2024 7:16 AM EST) Pathologist [facility] [place] Magnesium 1.7 1.6 - 2.7 mg/dL 10/31/2024 8:55 AM [facility] Blood (Plasma/Serum) 10/31/2024 7:16 AM EST 10/31/2024 7:47 AM EST Jonna L Rawporter PA-C LAB BLOOD ORDERABL ES Performing Organization Address [facility] [place] [place] [address], [place] [address] * (ABNORMAL) COMPLETE BLOOD COUNT, WITHOUT DIFFERENTIAL (10/31/2024 7:16 AM EST) Pathologist [facility] [place] White Blood Cell Count 8.9 4.0 - 11.0 Thou/uL 10/31/2024 8:14 AM [facility] Platelet Count 289 150 - 450 Thou/uL 10/31/2024 8:14 AM [facility] Hemoglobin 9.6(L) 13.0 - 17.7 g/dL 10/31/2024 8:14 AM [facility] Hematocrit 31.4(L) 39.0 - 54.0 % 10/31/2024 8:14 AM [facility] Red Blood Cell Count 3.13(L) 4.50 - 6.20 Mil/uL 10/31/2024 8:14 AM [facility] MCV 100 80 - 100 fL 10/31/2024 8:14 AM [facility] MCH 30.7 27.0 - 31.0 pg 10/31/2024 8:14 AM [facility] MCHC 30.6 30.0 - 36.0 g/dL 10/31/2024 8:14 AM [facility] RDW 16.5(H) 11.5 - 14.5 % 10/31/2024 8:14 AM [facility] MPV 11.3 7.5 - 12.5 fL 10/31/2024 8:14 AM [facility] Blood Blood specimen / Unknown 10/31/2024 7:16 AM EST 10/31/2024 7:47 AM EST Jonna Donis PA-[place] [address], [place] [address] * (ABNORMAL) BASIC METABOLIC PANEL (10/31/2024 7:16 AM EST) Glucose 82 65 - 99 mg/dL 10/31/2024 8:55 AM [facility] Comment:Fasting: <100 mg/dL, Non-Fasting: <200 mg/dL (ADA 2005) Blood Urea Nitrogen (BUN) 40(H) 8 - 21 mg/dL 10/31/2024 8:55 AM [facility] Creatinine 4.6(H) 0.5 - 1.3 mg/dL 10/31/2024 8:55 AM [facility] eGFR 12(L) >59 10/31/2024 8:55 AM [facility] Comment:CKD-EPI (2020) in mL /min/1.73 sq meters. Sodium 144 136 - 145 mmol/L 10/31/2024 8:55 AM [facility] Potassium 4.7 3.4 - 5.3 mmol/L 10/31/2024 8:55 AM [facility] Chloride 104 98 - 107 mmol/L 10/31/2024 8:55 AM [facility] CO2 24 22 - 33 mmol/L 10/31/2024 8:55 AM [facility] Anion Gap 16 7 - 17 10/31/2024 8:55 AM EST [facility] Calcium 8.8 8.7 - 10.5 mg/dL 10/31/2024 8:55 AM EST [facility] BUN/Creatinine Ratio 9(L) 10.0 - 25.0 Ratio 10/31/2024 8:55 AM EST [facility] Blood (Plasma/Serum) 10/31/2024 7:16 AM EST 10/31/2024 7:47 AM EST Jonna Donis PA-C LAB BLOOD ORDERABL ES Performing Organization Address [facility] [place] [address], [address] [address] * POCT Glucose, Fingerstick (10/31/2024 2:18 AM EST) POC Glucose 88 65 - 99 mg/dL 10/31/2024 2:20 AM EST Blood specimen / Unknown 10/31/2024 2:18 AM EST 10/31/2024 2:20 AM EST Fuad Winter MD POINT OF CARE TEST ORDERABLES Performing Organization Address City/[facility]/ZIP Co de Phone Number [facility] LAB See Below * (ABNORMAL) POCT Glucose, Fingerstick (10/30/2024 9:03 PM EST) POC Glucose 147(H) 65 - 99 mg/dL 10/30/2024 9:43 PM EST Blood specimen / Unknown 10/30/2024 9:03 PM EST 10/30/2024 9:43 PM EST Fuad Winter MD POINT OF CARE TEST ORDERABLES [facility] LAB See Below * (ABNORMAL) POCT Glucose, Fingerstick (10/30/2024 4:24 PM EST) POC Glucose 124(H) 65 - 99 mg/dL 10/30/2024 4:25 PM EST Blood specimen / Unknown 10/30/2024 4:24 PM EST 10/30/2024 4:25 PM EST Fuad Winter MD POINT OF CARE TEST ORDERABLES Performing Organization Address [facility] LAB See Below * POCT Glucose, Fingerstick (10/30/2024 2:00 PM EST) POC Glucose 99 65 - 99 mg/dL 10/30/2024 2:04 PM EST Blood specimen / Unknown 10/30/2024 2:00 PM EST 10/30/2024 2:04 PM EST Fuad Winter MD POINT OF CARE TEST ORDERABLES Performing Organization Address [facility] LAB See Below * POCT Glucose, Fingerstick (10/30/2024 12:35 PM EST) POC Glucose 99 65 - 99 mg/dL 10/30/2024 12:36 PM EST Blood specimen / Unknown 10/30/2024 12:35 PM EST 10/30/2024 12:36 PM EST Fuad Winter MD POINT OF CARE TEST ORDERABLES Performing Organization Address [facility] LAB See Below * POCT Glucose, Fingerstick (10/30/2024 8:43 AM EST) POC Glucose 95 65 - 99 mg/dL 10/30/2024 8:44 AM EST Blood specimen / Unknown 10/30/2024 8:43 AM EST 10/30/2024 8:44 AM EST Fuad Winter MD POINT OF CARE TEST ORDERABLES Performing Organization Address [facility] LAB See Below * Heparin Assay (Anti Xa) (10/30/2024 7:09 AM EST) Anti Xa 0.50 IU/mL 10/30/2024 8:13 AM EST [facility] Comment: (NOTE) Heparin Thromboembolic/Standard/Full Dose Protocol: [...] LAB BLOOD ORDERAB LES Performing Organization Address [facility] [place] [address], [place] [address] * (ABNORMAL) Phosphorus (Early AM) (10/30/2024 7:09 AM EST) Phosphorus 5.1(H) 2.7 - 4.5 mg/dL 10/30/2024 8:47 AM EST [facility] Blood (Plasma/Serum) 10/30/2024 7:09 AM EST 10/30/2024 7:54 AM EST Jonna Donis PA-C LAB BLOOD ORDERABL ES Performing Organization Address [facility] [place] [address], [place] [address] * MAGNESIUM (10/30/2024 7:09 AM EST) Magnesium 1.7 1.6 - 2.7 mg/dL 10/30/2024 8:47 AM EST [facility] Blood (Plasma/Serum) 10/30/2024 7:09 AM EST 10/30/2024 7:54 AM EST Jonna Donis PA-C LAB BLOOD ORDERABL ES Performing Organization Address [facility] [place] [address], [place] [address] * (ABNORMAL) COMPLETE BLOOD COUNT, WITHOUT DIFFERENTIAL (10/30/2024 7:09 AM EST) White Blood Cell Count 9.3 4.0 - 11.0 Thou/uL 10/30/2024 8:20 AM EST [facility] Platelet Count 304 150 - 450 Thou/uL 10/30/2024 8:20 AM [facility] Hemoglobin 9.3(L) 13.0 - 17.7 g/dL 10/30/2024 8:20 AM [facility] Hematocrit 30.3(L) 39.0 - 54.0 % 10/30/2024 8:20 AM [facility] Red Blood Cell Count 2.99(L) 4.50 - 6.20 Mil/uL 10/30/2024 8:20 AM [facility] MCV 101(H) 80 - 100 fL 10/30/2024 8:20 AM [facility] MCH 31.1(H) 27.0 - 31.0 pg 10/30/2024 8:20 AM [facility] MCHC 30.7 30.0 - 36.0 g/dL 10/30/2024 8:20 AM [facility] RDW 16.8(H) 11.5 - 14.5 % 10/30/2024 8:20 AM [facility] MPV 11.1 7.5 - 12.5 fL 10/30/2024 8:20 AM [facility] Blood Blood specimen / Unknown 10/30/2024 7:09 AM EST 10/30/2024 7:54 AM EST Jonna Donis PA-[place] [address], [place] [address] * (ABNORMAL) BASIC METABOLIC PANEL (10/30/2024 7:09 AM EST) Glucose 80 65 - 99 mg/dL 10/30/2024 8:47 AM [facility] Comment:Fasting: <100 mg/dL, Non-Fasting: <200 mg/dL (ADA 2005) Blood Urea Nitrogen (BUN) 40(H) 8 - 21 mg/dL 10/30/2024 8:47 AM [facility] Creatinine 4.3(H) 0.5 - 1.3 mg/dL 10/30/2024 8:47 AM [facility] eGFR 13(L) >59 10/30/2024 8:47 AM [facility] Comment:CKD-EPI (2020) in mL /min/1.73 sq meters. Sodium 142 136 - 145 mmol/L 10/30/2024 8:47 AM [facility] Potassium 4.5 3.4 - 5.3 mmol/L 10/30/2024 8:47 AM [facility] Chloride 101 98 - 107 mmol/L 10/30/2024 8:47 AM [facility] CO2 27 22 - 33 mmol/L 10/30/2024 8:47 AM [facility] Anion Gap 14 7 - 17 10/30/2024 8:47 AM [facility] Calcium 9.2 8.7 - 10.5 mg/dL 10/30/2024 8:47 AM [facility] BUN/Creatinine Ratio 9(L) 10.0 - 25.0 Ratio 10/30/2024 8:47 AM [facility] Blood (Plasma/Serum) 10/30/2024 7:09 AM EST 10/30/2024 7:54 AM EST Jonna Donis PA-[place] [address], [place] [address] * POCT Glucose, Fingerstick (10/30/2024 6:47 AM [...] OF CARE TEST ORDERABLES Performing Organization Address [facility] LAB See Below * (ABNORMAL) POCT Glucose, Fingerstick (10/29/2024 9:16 PM EST) POC Glucose 138(H) 65 - 99 mg/dL 10/29/2024 9:16 PM EST Blood specimen / Unknown 10/29/2024 9:16 PM EST 10/29/2024 9:17 PM EST Fuad Winter MD POINT OF CARE TEST ORDERABLES Performing Organization Address [facility] LAB See Below * (ABNORMAL) POCT Glucose, Fingerstick (10/29/2024 4:32 PM EST) POC Glucose 187(H) 65 - 99 mg/dL 10/29/2024 4:33 PM EST Blood specimen / Unknown 10/29/2024 4:32 PM EST 10/29/2024 4:33 PM EST Fuad Winter MD POINT OF CARE TEST ORDERABLES Performing Organization Address [facility] LAB See Below * (ABNORMAL) POCT Glucose, Fingerstick (10/29/2024 12:54 PM EST) POC Glucose 162(H) 65 - 99 mg/dL 10/29/2024 12:55 PM EST Blood specimen / Unknown 10/29/2024 12:54 PM EST 10/29/2024 12:55 PM EST Fuad Winter MD POINT OF CARE TEST ORDERABLES Performing Organization Address [facility] LAB See Below * (ABNORMAL) POCT Glucose, Fingerstick (10/29/2024 7:51 AM EST) POC Glucose 107(H) 65 - 99 mg/dL 10/29/2024 7:53 AM EST Blood specimen / Unknown 10/29/2024 7:51 AM EST 10/29/2024 7:52 AM EST Fuad Winter MD POINT OF CARE TEST ORDERABLES Performing Organization Address [facility] Co de Phone Number HOSPITAL LAB See Below * (ABNORMAL) proBNP, N-terminal (10/29/2024 7:20 AM EST) Pathologist [facility] [place] proBNP, N-terminal 47,866(H) <450 pg/mL 10/29/2024 12:12 PM EST [facility] Plasma specimen / Unknown 10/29/2024 7:20 AM EST 10/29/2024 8:04 AM EST Madhav Ryan MD LAB BLOOD ORDERABLES Performing Organization Address [facility] de Phone Number [facility] [address] [place] [address], [place] [address] * Heparin Assay (Anti Xa) (10/29/2024 7:20 AM EST) [facility] Anti Xa 0.41 IU/mL 10/29/2024 8:28 AM EST [facility] Comment: (NOTE) Heparin Thromboembolic/Standard/Full Dose Protocol: [...] LAB BLOOD ORDERAB LES Performing Organization Address [facility] [place] [address], [place] [address] * (ABNORMAL) Phosphorus (Early AM) (10/29/2024 7:20 AM EST) Phosphorus 4.9(H) 2.7 - 4.5 mg/dL 10/29/2024 8:40 AM EST [facility] Blood (Plasma/Serum) 10/29/2024 7:20 AM EST 10/29/2024 8:04 AM EST Jonna Donis PA-C LAB BLOOD ORDERABL ES Performing Organization Address City/[facility]/[place] [address], [place] [address] * MAGNESIUM (10/29/2024 7:20 AM EST) Magnesium 1.7 1.6 - 2.7 mg/dL 10/29/2024 8:40 AM [facility] Blood (Plasma/Serum) 10/29/2024 7:20 AM EST 10/29/2024 8:04 AM EST Jonna Donis PA-C LAB BLOOD ORDERABL ES Performing Organization Address [facility] [place] [address], [place] [address] * (ABNORMAL) COMPLETE BLOOD COUNT, WITHOUT DIFFERENTIAL (10/29/2024 7:20 AM EST) White Blood Cell Count 8.5 4.0 - 11.0 Thou/uL 10/29/2024 8:23 AM [facility] Platelet Count 300 150 - 450 Thou/uL 10/29/2024 8:23 AM [facility] Hemoglobin 8.7(L) 13.0 - 17.7 g/dL 10/29/2024 8:23 AM [facility] Hematocrit 29.6(L) 39.0 - 54.0 % 10/29/2024 8:23 AM [facility] Red Blood Cell Count 2.92(L) 4.50 - 6.20 Mil/uL 10/29/2024 8:23 AM [facility] MCV 101(H) 80 - 100 fL 10/29/2024 8:23 AM [facility] MCH 29.8 27.0 - 31.0 pg 10/29/2024 8:23 AM [facility] MCHC 29.4(L) 30.0 - 36.0 g/dL 10/29/2024 8:23 AM [facility] RDW 17.2(H) 11.5 - 14.5 % 10/29/2024 8:23 AM [facility] MPV 10.9 7.5 - 12.5 fL 10/29/2024 8:23 AM [facility] Blood Blood specimen / Unknown 10/29/2024 7:20 AM EST 10/29/2024 8:04 AM EST Jonna Donis PA-[place] [address], [place] [address] * (ABNORMAL) BASIC METABOLIC PANEL (10/29/2024 7:20 AM EST) Glucose 91 65 - 99 mg/dL 10/29/2024 8:40 AM [facility] Comment:Fasting: <100 mg/dL, Non-Fasting: <200 mg/dL (ADA 2005) Blood Urea Nitrogen (BUN) 44(H) 8 - 21 mg/dL 10/29/2024 8:40 AM [facility] Creatinine 4.3(H) 0.5 - 1.3 mg/dL 10/29/2024 8:40 AM [facility] eGFR 13(L) >59 10/29/2024 8:40 AM [facility] Comment:CKD-EPI (2020) in mL /min/1.73 sq meters. Sodium 142 136 - 145 mmol/L 10/29/2024 8:40 AM [facility] Potassium 4.0 3.4 - 5.3 mmol/L 10/29/2024 8:40 AM [facility] Chloride 103 98 - 107 mmol/L 10/29/2024 8:40 AM [facility] CO2 26 22 - 33 mmol/L 10/29/2024 8:40 AM [facility] Anion Gap 13 7 - 17 10/29/2024 8:40 AM [facility] Calcium 8.8 8.7 - 10.5 mg/dL 10/29/2024 8:40 AM [facility] BUN/Creatinine Ratio 10 10.0 - 25.0 Ratio 10/29/2024 8:40 AM [facility] Blood (Plasma/Serum) 10/29/2024 7:20 AM EST 10/29/2024 8:04 AM EST Jonna Donis PA-C LAB BLOOD ORDERABL ES [address] [address], [address] [address] * POCT Glucose, Fingerstick (10/29/2024 2:07 AM EST) POC Glucose 99 65 - 99 mg/dL 10/29/2024 2:07 AM EST Blood specimen / Unknown 10/29/2024 2:07 AM EST 10/29/2024 2:08 AM EST Fuad Winter MD POINT OF CARE TEST ORDERABLES Performing Organization Address [facility] Co de Phone Number [facility] LAB See Below * (ABNORMAL) POCT Glucose, [...] 2.7 - 4.5 mg/dL 10/28/2024 4:54 PM [facility] Blood (Plasma/Serum) 10/28/2024 3:38 PM EST 10/28/2024 4:29 PM EST Madhav Ryan [place] [address], [place] [address] * Magnesium (STAT) (10/28/2024 3:38 PM EST) Pathologist [facility] [place] Magnesium 1.8 1.6 - 2.7 mg/dL 10/28/2024 4:54 PM [facility] Blood (Plasma/Serum) 10/28/2024 3:38 PM EST 10/28/2024 4:29 PM EST Madhav Ryan MD LAB BLOOD ORDERABLES Performing Organization Address City/[facility] [place] [address], [place] [address] * (ABNORMAL) Basic Metabolic Panel (STAT) (10/28/2024 3:38 PM EST) Pathologist [facility] [place] Glucose 208(H) 65 - 99 mg/dL 10/28/2024 4:54 PM [facility] Comment:Fasting: <100 mg/dL, Non-Fasting: <200 mg/dL (ADA 2004) Blood Urea Nitrogen (BUN) 48(H) 8 - 21 mg/dL 10/28/2024 4:54 PM [facility] Creatinine 4.3(H) 0.5 - 1.3 mg/dL 10/28/2024 4:54 PM [facility] eGFR 13(L) >59 10/28/2024 4:54 PM [facility] Comment:CKD-EPI (2020) in mL /min/1.73 sq meters. Sodium 143 136 - 145 mmol/L 10/28/2024 4:54 PM [facility] Potassium 4.7 3.4 - 5.3 mmol/L 10/28/2024 4:54 PM [facility] Chloride 105 98 - 107 mmol/L 10/28/2024 4:54 PM [facility] CO2 25 22 - 33 mmol/L 10/28/2024 4:54 PM [facility] Anion Gap 13 7 - 17 10/28/2024 4:54 PM [facility] Calcium 8.9 8.7 - 10.5 mg/dL 10/28/2024 4:54 PM [facility] BUN/Creatinine Ratio 11 10.0 - 25.0 Ratio 10/28/2024 4:54 PM [facility] Blood (Plasma/Serum) 10/28/2024 3:38 PM EST 10/28/2024 4:29 PM EST Madhav Ryan [place] [address], [place] [address] * (ABNORMAL) POCT Glucose, Fingerstick (10/28/2024 12:32 [...] Xa 0.39 IU/mL 10/28/2024 7:54 AM EST [facility] Comment: (NOTE) Heparin Thromboembolic/Standard/Full Dose Protocol: [...] LAB BLOOD ORDERAB LES Performing Organization Address [facility] [place] Co de Phone Number [address] [address], [place] [address] * (ABNORMAL) Phosphorus (Early AM) (10/28/2024 7:00 AM EST) Phosphorus 4.6(H) 2.7 - 4.5 mg/dL 10/28/2024 8:08 AM EST [facility] Blood (Plasma/Serum) 10/28/2024 7:00 AM EST 10/28/2024 7:37 AM EST Jonna Donis PA-C LAB BLOOD ORDERABL ES Performing Organization Address [facility] [place] Co de Phone Number [address] [address], [address] [address] * MAGNESIUM (10/28/2024 7:00 AM EST) Magnesium 1.8 1.6 - 2.7 mg/dL 10/28/2024 8:08 AM EST [facility] Blood (Plasma/Serum) 10/28/2024 7:00 AM EST 10/28/2024 7:37 AM EST Jonna Donis PA-C LAB BLOOD ORDERABL ES Performing Organization Address [facility] [place] Co de Phone Number [address] [address], [address] [address] * (ABNORMAL) COMPLETE BLOOD COUNT, WITHOUT DIFFERENTIAL (10/28/2024 7:00 AM EST) [facility] White Blood Cell Count 9.2 4.0 - 11.0 Thou/uL 10/28/2024 7:46 AM [facility] Platelet Count 326 150 - 450 Thou/uL 10/28/2024 7:46 AM [facility] Hemoglobin 8.7(L) 13.0 - 17.7 g/dL 10/28/2024 7:46 AM [facility] Hematocrit 29.1(L) 39.0 - 54.0 % 10/28/2024 7:46 AM [facility] Red Blood Cell Count 2.85(L) 4.50 - 6.20 Mil/uL 10/28/2024 7:46 AM [facility] MCV 102(H) 80 - 100 fL 10/28/2024 7:46 AM [facility] MCH 30.5 27.0 - 31.0 pg 10/28/2024 7:46 AM [facility] MCHC 29.9(L) 30.0 - 36.0 g/dL 10/28/2024 7:46 AM [facility] RDW 17.2(H) 11.5 - 14.5 % 10/28/2024 7:46 AM [facility] MPV 11.3 7.5 - 12.5 fL 10/28/2024 7:46 AM [facility] Blood Blood specimen / Unknown 10/28/2024 7:00 AM EST 10/28/2024 7:37 AM EST Jonna Donis PA-C LAB BLOOD ORDERABL ES [address] [address], [address] [address] * (ABNORMAL) BASIC METABOLIC PANEL (10/28/2024 7:00 AM EST) [facility] Glucose 84 65 - 99 mg/dL 10/28/2024 8:08 AM [facility] Comment:Fasting: <100 mg/dL, Non-Fasting: <200 mg/dL (ADA 2005) Blood Urea Nitrogen (BUN) 50(H) 8 - 21 mg/dL 10/28/2024 8:08 AM [facility] Creatinine 4.4(H) 0.5 - 1.3 mg/dL 10/28/2024 8:08 AM [facility] eGFR 13(L) >59 10/28/2024 8:08 AM [facility] Comment:CKD-EPI (2020) in mL /min/1.73 sq meters. Sodium 142 136 - 145 mmol/L 10/28/2024 8:08 AM [facility] Potassium 3.9 3.4 - 5.3 mmol/L 10/28/2024 8:08 AM [facility] Chloride 105 98 - 107 mmol/L 10/28/2024 8:08 AM [facility] CO2 25 22 - 33 mmol/L 10/28/2024 8:08 AM [facility] Anion Gap 12 7 - 17 10/28/2024 8:08 AM [facility] Calcium 8.6(L) 8.7 - 10.5 mg/dL 10/28/2024 8:08 AM [facility] BUN/Creatinine Ratio 11 10.0 - 25.0 Ratio 10/28/2024 8:08 AM [facility] Blood (Plasma/Serum) 10/28/2024 7:00 AM EST 10/28/2024 7:37 AM EST Jonna Donis PA-C LAB BLOOD ORDERABL ES Performing Organization Address City/[facility] [place] [address], [place] [address] * (ABNORMAL) POCT Glucose, Fingerstick (10/28/2024 4:20 AM EST) POC Glucose 109(H) 65 - 99 mg/dL 10/28/2024 4:21 AM EST Blood specimen / Unknown 10/28/2024 4:20 AM EST 10/28/2024 4:21 AM EST Fuad Winter MD POINT OF CARE TEST ORDERABLES Performing Organization Address City/State/[facility] Phone [facility] LAB See Below * (ABNORMAL) POCT Glucose, Fingerstick (10/28/2024 12:29 AM EST) POC Glucose 129(H) 65 - 99 mg/dL 10/28/2024 12:30 AM EST Blood specimen / Unknown 10/28/2024 12:29 AM EST 10/28/2024 12:30 AM EST Fuad Winter MD POINT OF CARE TEST ORDERABLES Performing Organization Address [facility] Phone Number [facility] LAB See Below * (ABNORMAL) POCT Glucose, Fingerstick (10/27/2024 8:06 PM EST) POC Glucose 203(H) 65 - 99 mg/dL 10/27/2024 8:10 PM EST Blood specimen / Unknown 10/27/2024 8:06 PM EST 10/27/2024 8:10 PM EST Fuad Winter MD POINT OF CARE TEST ORDERABLES Performing Organization Address [facility] Phone [facility] LAB See Below * (ABNORMAL) POCT Glucose, Fingerstick (10/27/2024 4:20 PM EST) POC Glucose 224(H) 65 - 99 mg/dL 10/27/2024 4:28 PM EST Blood specimen / Unknown 10/27/2024 4:20 PM EST 10/27/2024 4:28 PM EST Fuad Winter MD POINT OF CARE TEST ORDERABLES Performing Organization Address [facility] Phone Number [facility] LAB See Below * (ABNORMAL) Basic Metabolic Panel (Routine) (10/27/2024 3:26 PM EST) Glucose 179(H) 65 - 99 mg/dL 10/27/2024 4:11 PM EST [facility] Comment:Fasting: <100 mg/dL, Non-Fasting: <200 mg/dL (ADA 2005) Blood Urea Nitrogen (BUN) 53(H) 8 - 21 mg/dL 10/27/2024 4:11 PM [facility] Creatinine 4.2(H) 0.5 - 1.3 mg/dL 10/27/2024 4:11 PM [facility] eGFR 14(L) >59 10/27/2024 4:11 PM [facility] Comment:CKD-EPI (2020) in mL /min/1.73 sq meters. Sodium 143 136 - 145 mmol/L 10/27/2024 4:11 PM [facility] Potassium 5.2 3.4 - 5.3 mmol/L 10/27/2024 4:11 PM [facility] Chloride 105 98 - 107 mmol/L 10/27/2024 4:11 PM [facility] CO2 25 22 - 33 mmol/L 10/27/2024 4:11 PM [facility] Anion Gap 13 7 - 17 10/27/2024 4:11 PM [facility] Calcium 8.6(L) 8.7 - 10.5 mg/dL 10/27/2024 4:11 PM [facility] BUN/Creatinine Ratio 13 10.0 - 25.0 Ratio 10/27/2024 4:11 PM [facility] Blood (Plasma/Serum) 10/27/2024 3:26 PM EST 10/27/2024 3:45 PM EST Madhav Ryan MD [place] [address], [place] [address] * (ABNORMAL) POCT Glucose, Fingerstick (10/27/2024 1:13 [...] [facility] [place] Ventricular rate 60 BPM EKG [facility] Atrial rate 60 BPM EKG [facility] P-R interval 150 ms EKG [facility] QRS duration 84 ms EKG [facility] Q-T interval 488 ms EKG [facility] QTC calculation (Bazett) 488 ms EKG [facility] P axis 45 degrees EKG [facility] R axis 13 degrees EKG [facility] T axis 199 degrees EKG [facility] 10/27/2024 7:41 AM EST Narrative EKG [facility] - 10/27/2024 6:03 PM EST Normal [...] PM Madhav Ryan MD ECG ORDERABLES EKG [facility] * Heparin Assay (Anti Xa) (10/27/2024 7:29 AM EST) Anti Xa 0.39 IU/mL 10/27/2024 8:42 AM EST [facility] Comment: (NOTE) Heparin Thromboembolic/Standard/Full Dose Protocol: [...] LAB BLOOD ORDERAB LES Performing Organization Address [facility] [place] [address], [place] [address] * (ABNORMAL) Phosphorus (AM) (10/27/2024 7:29 AM EST) Phosphorus 4.6(H) 2.7 - 4.5 mg/dL 10/27/2024 8:48 AM EST [facility] Blood (Plasma/Serum) 10/27/2024 7:29 AM EST 10/27/2024 8:24 AM EST Neymar Mcfarland MD LAB BLOOD ORDERAB LES Performing Organization Address [facility] [place] [address], [place] [address] * Magnesium (AM) (10/27/2024 7:29 AM EST) Magnesium 1.8 1.6 - 2.7 mg/dL 10/27/2024 8:48 AM EST [facility] Blood (Plasma/Serum) 10/27/2024 7:29 AM EST 10/27/2024 8:24 AM EST Neymar Mcfarland MD LAB BLOOD ORDERAB LES Performing Organization Address [facility] [place] [address], [place] [address] * (ABNORMAL) Basic Metabolic Panel (AM) (10/27/2024 7:29 AM EST) Glucose 63(L) 65 - 99 mg/dL 10/27/2024 8:48 AM [facility] Comment:Fasting: <100 mg/dL, Non-Fasting: <200 mg/dL (ADA 2004) Blood Urea Nitrogen (BUN) 59(H) 8 - 21 mg/dL 10/27/2024 8:48 AM [facility] Creatinine 4.3(H) 0.5 - 1.3 mg/dL 10/27/2024 8:48 AM [facility] eGFR 13(L) >59 10/27/2024 8:48 AM [facility] Comment:CKD-EPI (2020) in mL /min/1.73 sq meters. Sodium 146(H) 136 - 145 mmol/L 10/27/2024 8:48 AM [facility] Potassium 3.7 3.4 - 5.3 mmol/L 10/27/2024 8:48 AM [facility] Chloride 107 98 - 107 mmol/L 10/27/2024 8:48 AM [facility] CO2 24 22 - 33 mmol/L 10/27/2024 8:48 AM [facility] Anion Gap 15 7 - 17 10/27/2024 8:48 AM [facility] Calcium 8.4(L) 8.7 - 10.5 mg/dL 10/27/2024 8:48 AM [facility] BUN/Creatinine Ratio 14 10.0 - 25.0 Ratio 10/27/2024 8:48 AM [facility] Blood (Plasma/Serum) 10/27/2024 7:29 AM EST 10/27/2024 8:24 AM EST Neymar Mcfarland MD LAB BLOOD ORDERAB LES [facility] [address] [place] [address], [place] [address] * (ABNORMAL) Complete Blood Count WITHOUT Differential - in AM (10/27/2024 7:29 AM EST) [facility] White Blood Cell Count 9.2 4.0 - 11.0 Thou/uL 10/27/2024 8:38 AM [facility] Platelet Count 321 150 - 450 Thou/uL 10/27/2024 8:38 AM [facility] Hemoglobin 9.0(L) 13.0 - 17.7 g/dL 10/27/2024 8:38 AM [facility] Hematocrit 29.8(L) 39.0 - 54.0 % 10/27/2024 8:38 AM [facility] Red Blood Cell Count 2.95(L) 4.50 - 6.20 Mil/uL 10/27/2024 8:38 AM [facility] MCV 101(H) 80 - 100 fL 10/27/2024 8:38 AM [facility] MCH 30.5 27.0 - 31.0 pg 10/27/2024 8:38 AM [facility] MCHC 30.2 30.0 - 36.0 g/dL 10/27/2024 8:38 AM [facility] RDW 16.9(H) 11.5 - 14.5 % 10/27/2024 8:38 AM [facility] MPV 11.6 7.5 - 12.5 fL 10/27/2024 8:38 AM [facility] Blood Blood specimen / Unknown 10/27/2024 7:29 AM EST 10/27/2024 8:24 AM EST Neymar Mcfarland MD [place] [address], [place] [address] * POCT Glucose, Fingerstick (10/27/2024 4:02 AM EST) [facility] POC Glucose 90 65 - 99 mg/dL 10/27/2024 4:03 AM EST Blood specimen / Unknown 10/27/2024 4:02 AM EST 10/27/2024 4:03 AM EST Fuad Winter MD POINT OF CARE TEST ORDERABLES Performing Organization Address [facility]/ZIP Co de Phone Number HOSPITAL LAB See Below * (ABNORMAL) POCT Glucose, Fingerstick (10/27/2024 1:20 AM EST) POC Glucose 155(H) 65 - 99 mg/dL 10/27/2024 1:25 AM EST Blood specimen / Unknown 10/27/2024 1:20 AM EST 10/27/2024 1:25 AM EST Fuad Winter MD POINT OF CARE TEST ORDERABLES Performing Organization Address [facility] de Phone Number HOSPITAL LAB See Below * POCT Glucose, Fingerstick (10/27/2024 12:29 AM EST) POC Glucose 74 65 - 99 mg/dL 10/27/2024 12:30 AM EST Blood specimen / Unknown 10/27/2024 12:29 AM EST 10/27/2024 12:30 AM EST Fuad Winter MD POINT OF CARE TEST ORDERABLES Performing Organization Address [facility] Phone Number HOSPITAL LAB See Below * (ABNORMAL) POCT Glucose, Fingerstick (10/26/2024 8:11 PM EST) POC Glucose 120(H) 65 - 99 mg/dL 10/26/2024 8:12 PM EST Blood specimen / Unknown 10/26/2024 8:11 PM EST 10/26/2024 8:12 PM EST Fuad Winter MD POINT OF CARE TEST ORDERABLES Performing Organization Address [facility] Co de Phone Number HOSPITAL LAB See [...] 2,071(HH) <23 ng/L 10/26/2024 11:53 AM EST [facility] Comment:Recurring Critical R esult. Previously phoned. Delta (Change) 532(H) <3 10/26/2024 11:53 AM EST [facility] Comment:Decreased Blood (Plasma/Serum) 10/26/2024 10:49 AM EST 10/26/2024 11:11 AM EST Neymar Mcfarland MD LAB BLOOD ORDERAB LES Performing Organization Address City/[facility] [place] [address], [place] [address] * POCT Glucose, Fingerstick (10/26/2024 8:48 AM EST) POC Glucose 90 65 - 99 mg/dL 10/26/2024 8:49 AM EST Blood specimen / Unknown 10/26/2024 8:48 AM EST 10/26/2024 8:49 AM EST Fuad Winter MD POINT OF CARE TEST ORDERABLES HOSPITAL LAB See Below * Heparin Assay (Anti Xa) (10/26/2024 6:18 AM EST) Anti Xa 0.49 IU/mL 10/26/2024 7:38 AM EST [facility] Comment: (NOTE) Heparin Thromboembolic/Standard/Full Dose Protocol: [...] LAB BLOOD ORDERAB LES Performing Organization Address City/[facility]/[place] [address], [place] [address] * Phosphorus (AM) (10/26/2024 6:18 AM EST) Phosphorus 4.2 2.7 - 4.5 mg/dL 10/26/2024 7:45 AM EST [facility] Blood (Plasma/Serum) 10/26/2024 6:18 AM EST 10/26/2024 7:22 AM EST Neymar Mcfarland MD LAB BLOOD ORDERAB LES Performing Organization Address [facility] [place] [address], [place] [address] * Magnesium (AM) (10/26/2024 6:18 AM EST) Magnesium 1.9 1.6 - 2.7 mg/dL 10/26/2024 7:45 AM EST [facility] Blood (Plasma/Serum) 10/26/2024 6:18 AM EST 10/26/2024 7:22 AM EST Neymar Mcfarland MD LAB BLOOD ORDERAB LES Performing Organization Address [facility] [place] [address], [place] [address] * (ABNORMAL) Basic Metabolic Panel (AM) (10/26/2024 6:18 AM EST) Glucose 79 65 - 99 mg/dL 10/26/2024 7:45 AM [facility] Comment:Fasting: <100 mg/dL, Non-Fasting: <200 mg/dL (ADA 2004) Blood Urea Nitrogen (BUN) 61(H) 8 - 21 mg/dL 10/26/2024 7:45 AM [facility] Creatinine 4.0(H) 0.5 - 1.3 mg/dL 10/26/2024 7:45 AM [facility] eGFR 14(L) >59 10/26/2024 7:45 AM [facility] Comment:CKD-EPI (2020) in mL /min/1.73 sq meters. Sodium 145 136 - 145 mmol/L 10/26/2024 7:45 AM [facility] Potassium 4.2 3.4 - 5.3 mmol/L 10/26/2024 7:45 AM [facility] Chloride 107 98 - 107 mmol/L 10/26/2024 7:45 AM [facility] CO2 23 22 - 33 mmol/L 10/26/2024 7:45 AM [facility] Anion Gap 15 7 - 17 10/26/2024 7:45 AM [facility] Calcium 7.9(L) 8.7 - 10.5 mg/dL 10/26/2024 7:45 AM [facility] BUN/Creatinine Ratio 15 10.0 - 25.0 Ratio 10/26/2024 7:45 AM [facility] Blood (Plasma/Serum) 10/26/2024 6:18 AM EST 10/26/2024 7:22 AM EST Neymar Mcfarland MD LAB BLOOD ORDERAB LES [address] [address], [address] [address] * (ABNORMAL) Complete Blood Count WITHOUT Differential - in AM (10/26/2024 6:18 AM EST) White Blood Cell Count 9.7 4.0 - 11.0 Thou/uL 10/26/2024 7:29 AM [facility] Platelet Count 328 150 - 450 Thou/uL 10/26/2024 7:29 AM [facility] Hemoglobin 8.6(L) 13.0 - 17.7 g/dL 10/26/2024 7:29 AM [facility] Hematocrit 27.9(L) 39.0 - 54.0 % 10/26/2024 7:29 AM [facility] Red Blood Cell Count 2.78(L) 4.50 - 6.20 Mil/uL 10/26/2024 7:29 AM [facility] MCV 100 80 - 100 fL 10/26/2024 7:29 AM [facility] MCH 30.9 27.0 - 31.0 pg 10/26/2024 7:29 AM [facility] MCHC 30.8 30.0 - 36.0 g/dL 10/26/2024 7:29 AM [facility] RDW 16.8(H) 11.5 - 14.5 % 10/26/2024 7:29 AM [facility] MPV 11.6 7.5 - 12.5 fL 10/26/2024 7:29 AM [facility] Blood Blood specimen / Unknown 10/26/2024 6:18 AM EST 10/26/2024 7:22 AM EST Neymar Mcfarland MD [place] [address], [place] [address] * (ABNORMAL) POCT Glucose, Fingerstick (10/26/2024 3:58 [...] Assay (Anti Xa) (10/25/2024 11:35 PM EST) [facility] Anti Xa 0.44 IU/mL 10/26/2024 12:23 AM EST [facility] Comment: (NOTE) Heparin Thromboembolic/Standard/Full Dose Protocol: [...] LAB BLOOD ORDERAB LES Performing Organization Address [facility] [place] [address], [place] [address] * (ABNORMAL) POCT Glucose, Fingerstick (10/25/2024 8:20 PM EST) [facility] POC Glucose 222(H) 65 - 99 mg/dL 10/25/2024 8:21 PM EST Blood specimen / Unknown 10/25/2024 8:20 PM EST 10/25/2024 8:21 PM EST Fuad Winter MD POINT OF CARE TEST ORDERABLES Performing Organization Address City/[facility] Co de Phone Number HOSPITAL LAB See [...] Xa 0.57 IU/mL 10/25/2024 5:53 PM EST [facility] Comment: (NOTE) Heparin Thromboembolic/Standard/Full Dose Protocol: [...] LAB BLOOD ORDERAB LES Performing Organization Address [facility] [place] [address], [place] [address] * (ABNORMAL) High Sensitivity Troponin T (now and in 3 hours) (10/25/2024 5:03 PM EST) High Sensitivity Troponin T 2,468(HH) <23 ng/L 10/25/2024 6:02 PM [facility] Comment:Recurring Critical R esult. Previously phoned. Delta (Change) 135(H) <3 10/25/2024 6:02 PM [facility] Comment:Decreased Blood (Plasma/Serum) 10/25/2024 5:03 PM EST 10/25/2024 5:25 PM EST Neymar Mcfarland MD LAB BLOOD ORDERAB LES Performing Organization Address [facility] [place] [address], [place] [address] * (ABNORMAL) High Sensitivity Troponin T (now and in 3 hours) (10/25/2024 3:38 PM EST) High Sensitivity Troponin T 2,413(HH) <23 ng/L 10/25/2024 4:21 PM [facility] Comment:Recurring Critical R esult. Previously phoned. Delta (Change) 190(H) <3 10/25/2024 4:21 PM [facility] Comment:Decreased Blood (Plasma/Serum) 10/25/2024 3:38 PM EST 10/25/2024 3:48 PM EST Neymar Mcfarland MD LAB BLOOD ORDERAB LES Performing Organization Address [facility] [place] [address], [place] [address] * (ABNORMAL) High Sensitivity Troponin T (10/25/2024 12:47 PM EST) High Sensitivity Troponin T 2,394(HH) <23 ng/L 10/25/2024 2:04 PM [facility] Comment:Recurring Critical R esult. Previously phoned. Delta (Change) 209(H) <3 10/25/2024 2:04 PM [facility] Comment:Decreased Plasma/Serum 10/25/2024 12:4 7 PM EST 10/25/2024 1:34 PM EST Bryant Gracia PA-C LAB BLOOD ORDERABLES Performing Organization Address [facility] [place] [address], [place] [address] * Heparin Assay (Anti Xa) (10/25/2024 12:47 PM EST) Pathologist [facility] [place] Anti Xa 0.47 IU/mL 10/25/2024 2:06 PM [facility] Comment: (NOTE) Heparin Thromboembolic/Standard/Full Dose Protocol: [...] LAB BLOOD ORDERAB LES Performing Organization Address [facility]/State/ZIP Co de Phone Number [address] [address], [address] [address] * (ABNORMAL) POCT Glucose, Fingerstick (10/25/2024 12:33 [...] AM EST) Ventricular rate 76 BPM EKG [facility] Atrial rate 76 BPM EKG [facility] P-R interval 152 ms EKG [facility] QRS duration 82 ms EKG [facility] Q-T interval 450 ms EKG [facility] QTC calculation (Bazett) 506 ms EKG [facility] P axis 67 degrees EKG [facility] R axis 69 degrees EKG [facility] T axis 237 degrees EKG [facility] 10/25/2024 10:4 4 AM EST Narrative EKG [facility] - 10/25/2024 8:09 PM EST Normal sinus rhythm ST & T wave abnormality, consider lateral ischemia Prolonged QT Abnormal ECG When compared with ECG of 23-Oct-2024 17:43, Nonspecific T wave abnormality, worse in Inferior leads T wave inversion less evident in Lateral leads Confirmed by DO Ladd Kyla ([id number]) on 10/25/2024 8:09:06 PM Procedure Note Jessica Ladd DO - 10/25/[address] & T wave abnormality, consider lateral ischemia Prolonged QT Abnormal ECG When compared with ECG of 23-Oct-2024 17:43, Nonspecific T wave abnormality, worse in Inferior leads T wave inversion less evident in Lateral leads Confirmed by DO Ladd Kyla ([id number]) on 10/25/2024 8:09:06 PM Fuad Winter MD ECG ORDERABLE S [facility] * (ABNORMAL) High Sensitivity Troponin T (10/25/2024 10:25 AM EST) High Sensitivity Troponin T 2,514(HH) <23 ng/L 10/25/2024 11:49 AM EST [facility] Comment:Recurring Critical R esult. Previously phoned. Delta (Change) 89(H) <3 10/25/2024 11:49 AM EST [facility] Comment:Decreased Plasma/Serum 10/25/2024 10:2 5 AM EST 10/25/2024 11:17 AM EST Bryant Gracia PA-C LAB BLOOD ORDERABLES [facility] [address] [place] [address], [address] [address] * (ABNORMAL) POCT Glucose, Fingerstick (10/25/2024 9:20 AM EST) [facility] POC Glucose 129(H) 65 - 99 mg/dL 10/25/2024 9:21 AM EST Blood specimen / Unknown 10/25/2024 9:20 AM EST 10/25/2024 9:21 AM EST Fuad Winter MD POINT OF CARE TEST ORDERABLES HOSPITAL LAB See Below * CREATINE KINASE (CK) (10/25/2024 8:27 AM EST) [facility] Creatine Kinase (CK) 76 24 - 204 U/L 10/25/2024 10:25 AM EST [facility] Plasma/Serum 10/25/2024 8:27 AM EST 10/25/2024 9:16 AM EST Neymar Mcfarland MD LAB BLOOD ORDERAB LES Performing Organization Address [facility] [place] [address], [place] [address] * (ABNORMAL) High Sensitivity Troponin T (10/25/2024 8:27 AM EST) [facility] High Sensitivity Troponin T 2,603(HH) <23 ng/L 10/25/2024 10:25 AM EST [facility] Delta (Change) NO PREVIOUS RESULT <3 10/25/2024 10:25 AM EST [facility] Plasma/Serum 10/25/2024 8:27 AM EST 10/25/2024 9:16 AM EST Neymar Mcfarland MD LAB BLOOD ORDERAB LES Performing Organization Address [facility] [place] [address], [place] [address] * Phosphorus (AM) (10/25/2024 8:27 AM EST) [facility] Phosphorus 3.8 2.7 - 4.5 mg/dL 10/25/2024 10:25 AM [facility] Blood (Plasma/Serum) 10/25/2024 8:27 AM EST 10/25/2024 9:16 AM EST Neymar Mcfarland MD LAB BLOOD ORDERAB LES Performing Organization Address City/[facility]/[place] [address], [place] [address] * Magnesium (AM) (10/25/2024 8:27 AM EST) Magnesium 2.0 1.6 - 2.7 mg/dL 10/25/2024 10:25 AM [facility] Blood (Plasma/Serum) 10/25/2024 8:27 AM EST 10/25/2024 9:16 AM EST Neymar Mcfarland MD LAB BLOOD ORDERAB LES Performing Organization Address [facility] [place] [address], [place] [address] * (ABNORMAL) Basic Metabolic Panel (AM) (10/25/2024 8:27 AM EST) Glucose 123(H) 65 - 99 mg/dL 10/25/2024 10:25 AM [facility] Comment:Fasting: <100 mg/dL, Non-Fasting: <200 mg/dL (ADA 2005) Blood Urea Nitrogen (BUN) 64(H) 8 - 21 mg/dL 10/25/2024 10:25 AM [facility] Creatinine 3.9(H) 0.5 - 1.3 mg/dL 10/25/2024 10:25 AM [facility] eGFR 15(L) >59 10/25/2024 10:25 AM [facility] Comment:CKD-EPI (2020) in mL /min/1.73 sq meters. Sodium 141 136 - 145 mmol/L 10/25/2024 10:25 AM [facility] Potassium 4.6 3.4 - 5.3 mmol/L 10/25/2024 10:25 AM [facility] Chloride 104 98 - 107 mmol/L 10/25/2024 10:25 AM [facility] CO2 21(L) 22 - 33 mmol/L 10/25/2024 10:25 AM [facility] Anion Gap 16 7 - 17 10/25/2024 10:25 AM [facility] Calcium 7.8(L) 8.7 - 10.5 mg/dL 10/25/2024 10:25 AM [facility] BUN/Creatinine Ratio 16 10.0 - 25.0 Ratio 10/25/2024 10:25 AM [facility] Blood (Plasma/Serum) 10/25/2024 8:27 AM EST 10/25/2024 9:16 AM EST Neymar Mcfarland MD LAB BLOOD ORDERAB LES Performing Organization Address City/State/[facility] [place] [address], [place] [address] * (ABNORMAL) Complete Blood Count WITHOUT Differential - in AM (10/25/2024 8:27 AM EST) White Blood Cell Count 12.5(H) 4.0 - 11.0 Thou/uL 10/25/2024 9:39 AM [facility] Platelet Count 361 150 - 450 Thou/uL 10/25/2024 9:39 AM [facility] Hemoglobin 9.2(L) 13.0 - 17.7 g/dL 10/25/2024 9:39 AM [facility] Hematocrit 29.9(L) 39.0 - 54.0 % 10/25/2024 9:39 AM [facility] Red Blood Cell Count 3.01(L) 4.50 - 6.20 Mil/uL 10/25/2024 9:39 AM [facility] MCV 99 80 - 100 fL 10/25/2024 9:39 AM [facility] MCH 30.6 27.0 - 31.0 pg 10/25/2024 9:39 AM [facility] MCHC 30.8 30.0 - 36.0 g/dL 10/25/2024 9:39 AM [facility] RDW 16.7(H) 11.5 - 14.5 % 10/25/2024 9:39 AM [facility] MPV 11.3 7.5 - 12.5 fL 10/25/2024 9:39 AM [facility] Blood Blood specimen / Unknown 10/25/2024 8:27 AM EST 10/25/2024 9:16 AM EST Neymar Mcfarland MD LAB BLOOD ORDERAB LES Performing Organization Address City/State/[facility] [place] [address], [place] [address] * Heparin Assay (Anti Xa) (10/25/2024 5:21 AM EST) Anti Xa 0.51 IU/mL 10/25/2024 5:55 AM [facility] Comment: (NOTE) Heparin Thromboembolic/Standard/Full Dose Protocol: [...] LAB BLOOD ORDERAB LES Performing Organization Address [facility] [place] [address], [place] [address] * (ABNORMAL) POCT Glucose, Fingerstick (10/25/2024 5:15 AM EST) Pathologist [facility] [place] POC Glucose 115(H) 65 - 99 mg/dL 10/25/2024 5:15 AM EST Blood specimen / Unknown 10/25/2024 5:15 AM EST 10/25/2024 5:16 AM EST Fuad Winter MD POINT OF CARE TEST ORDERABLES Performing Organization Address [facility] [place] Co de Phone Number HOSPITAL LAB See [...] Xa 0.58 IU/mL 10/24/2024 10:50 PM EST [facility] Comment: (NOTE) Heparin Thromboembolic/Standard/Full Dose Protocol: [...] LAB BLOOD ORDERAB LES Performing Organization Address [facility] [place] [address], [place] [address] * (ABNORMAL) POCT Glucose, Fingerstick (10/24/2024 8:23 PM EST) Pathologist [facility] [place] POC Glucose 211(H) 65 - 99 mg/dL 10/24/2024 8:24 PM EST Blood specimen / Unknown 10/24/2024 8:23 PM EST 10/24/2024 8:24 PM EST Fuad Winter MD POINT OF CARE TEST ORDERABLES Performing Organization Address [facility] de Phone Number HOSPITAL LAB See Below * Heparin Assay (Anti Xa) (10/24/2024 4:14 PM EST) Pathologist [facility] [place] Anti Xa 0.56 IU/mL 10/24/2024 5:08 PM EST [facility] Comment: (NOTE) Heparin Thromboembolic/Standard/Full Dose Protocol: [...] LAB BLOOD ORDERAB LES Performing Organization Address [facility] [place] Co de Phone Number [address] [address], [address] [address] * (ABNORMAL) POCT Glucose, Fingerstick (10/24/2024 4:07 PM EST) POC Glucose 152(H) 65 - 99 mg/dL 10/24/2024 4:09 PM EST Blood specimen / Unknown 10/24/2024 4:07 PM EST 10/24/2024 4:09 PM EST Fuad Winter MD POINT OF CARE TEST ORDERABLES Performing Organization Address [facility] [place] Co de Phone Number [facility] LAB See Below * (ABNORMAL) POCT Glucose, Fingerstick (10/24/2024 11:13 AM EST) POC Glucose 158(H) 65 - 99 mg/dL 10/24/2024 11:14 AM EST Blood specimen / Unknown 10/24/2024 11:13 AM EST 10/24/2024 11:14 AM EST Fuad Winter MD POINT OF CARE TEST ORDERABLES Performing Organization Address [facility] Phone Number [facility] LAB See Below * XR Chest 1 [...] OF CARE TEST ORDERABLES Performing Organization Address City/[facility]/ZIP Co de Phone Number HOSPITAL LAB See Below * (ABNORMAL) B-Hydroxybutyrate (10/24/2024 7:11 AM EST) [facility] B-Hydroxybutyrate 2.36(H) <0.28 mmol/L 10/24/2024 10:30 AM EST [facility] Comment: In the presence of uncontrolled [...] MD LAB BLOOD ORDERABLES Performing Organization Address [facility]/[place] [address], [place] [address] * Heparin Assay (Anti Xa) (10/24/2024 7:11 AM EST) Anti Xa 0.17 IU/mL 10/24/2024 8:02 AM EST [facility] Comment: (NOTE) Heparin Thromboembolic/Standard/Full Dose Protocol: [...] MD LAB BLOOD ORDERABLES Performing Organization Address [facility] [place] [address], [place] [address] * Phosphorus (AM) (10/24/2024 7:11 AM EST) Phosphorus 4.5 2.7 - 4.5 mg/dL 10/24/2024 8:15 AM EST [facility] Blood (Plasma/Serum) 10/24/2024 7:11 AM EST 10/24/2024 7:48 AM EST Neymar Mcfarland MD LAB BLOOD ORDERAB LES Performing Organization Address [facility] [place] [address], [place] [address] * Magnesium (AM) (10/24/2024 7:11 AM EST) Magnesium 1.8 1.6 - 2.7 mg/dL 10/24/2024 8:15 AM [facility] Blood (Plasma/Serum) 10/24/2024 7:11 AM EST 10/24/2024 7:48 AM EST Neymar Mcfarland MD LAB BLOOD ORDERAB LES Performing Organization Address City/[facility] [place] [address], [place] [address] * (ABNORMAL) Basic Metabolic Panel (AM) (10/24/2024 7:11 AM EST) Glucose 149(H) 65 - 99 mg/dL 10/24/2024 8:15 AM EST [facility] Comment:Fasting: <100 mg/dL, Non-Fasting: <200 mg/dL (ADA 2005) Blood Urea Nitrogen (BUN) 68(H) 8 - 21 mg/dL 10/24/2024 8:15 AM [facility] Creatinine 4.0(H) 0.5 - 1.3 mg/dL 10/24/2024 8:15 AM [facility] eGFR 14(L) >59 10/24/2024 8:15 AM [facility] Comment:CKD-EPI (2020) in mL /min/1.73 sq meters. Sodium 143 136 - 145 mmol/L 10/24/2024 8:15 AM [facility] Potassium 4.9 3.4 - 5.3 mmol/L 10/24/2024 8:15 AM [facility] Chloride 105 98 - 107 mmol/L 10/24/2024 8:15 AM [facility] CO2 19(L) 22 - 33 mmol/L 10/24/2024 8:15 AM [facility] Anion Gap 19(H) 7 - 17 10/24/2024 8:15 AM [facility] Calcium 7.8(L) 8.7 - 10.5 mg/dL 10/24/2024 8:15 AM [facility] BUN/Creatinine Ratio 17 10.0 - 25.0 Ratio 10/24/2024 8:15 AM [facility] Blood (Plasma/Serum) 10/24/2024 7:11 AM EST 10/24/2024 7:48 AM EST Neymar Mcfarland MD [place] [address], [place] [address] * (ABNORMAL) Complete Blood Count WITHOUT Differential - in AM (10/24/2024 7:11 AM EST) White Blood Cell Count 12.4(H) 4.0 - 11.0 Thou/uL 10/24/2024 7:58 AM [facility] Platelet Count 360 150 - 450 Thou/uL 10/24/2024 7:58 AM [facility] Hemoglobin 9.3(L) 13.0 - 17.7 g/dL 10/24/2024 7:58 AM [facility] Hematocrit 30.1(L) 39.0 - 54.0 % 10/24/2024 7:58 AM [facility] Red Blood Cell Count 3.06(L) 4.50 - 6.20 Mil/uL 10/24/2024 7:58 AM [facility] MCV 98 80 - 100 fL 10/24/2024 7:58 AM [facility] MCH 30.4 27.0 - 31.0 pg 10/24/2024 7:58 AM [facility] MCHC 30.9 30.0 - 36.0 g/dL 10/24/2024 7:58 AM [facility] RDW 16.8(H) 11.5 - 14.5 % 10/24/2024 7:58 AM [facility] MPV 11.3 7.5 - 12.5 fL 10/24/2024 7:58 AM [facility] Blood Blood specimen / Unknown 10/24/2024 7:11 AM EST 10/24/2024 7:48 AM EST Neymar Mcfarland MD LAB BLOOD ORDERAB LES Performing Organization Address City/[facility]/[place] [address], [place] [address] * Phosphorus (Early AM) (10/24/2024 3:01 AM EST) Phosphorus 3.8 2.7 - 4.5 mg/dL 10/24/2024 3:36 AM [facility] Blood (Plasma/Serum) 10/24/2024 3:01 AM EST 10/24/2024 3:12 AM EST Macy Adam [place] [address], [place] [address] * Magnesium (Routine) (10/24/2024 3:01 AM EST) Magnesium 1.8 1.6 - 2.7 mg/dL 10/24/2024 3:36 AM [facility] Blood (Plasma/Serum) 10/24/2024 3:01 AM EST 10/24/2024 3:12 AM EST Macy Adam [place] [address], [place] [address] * (ABNORMAL) Basic Metabolic Panel (Routine) (10/24/2024 3:01 AM EST) Glucose 128(H) 65 - 99 mg/dL 10/24/2024 3:36 AM [facility] Comment:Fasting: <100 mg/dL, Non-Fasting: <200 mg/dL (ADA 2005) Blood Urea Nitrogen (BUN) 67(H) 8 - 21 mg/dL 10/24/2024 3:36 AM [facility] Creatinine 3.8(H) 0.5 - 1.3 mg/dL 10/24/2024 3:36 AM [facility] eGFR 15(L) >59 10/24/2024 3:36 AM [facility] Comment:CKD-EPI (2020) in mL /min/1.73 sq meters. Sodium 143 136 - 145 mmol/L 10/24/2024 3:36 AM [facility] Potassium 4.4 3.4 - 5.3 mmol/L 10/24/2024 3:36 AM [facility] Chloride 107 98 - 107 mmol/L 10/24/2024 3:36 AM [facility] CO2 18(L) 22 - 33 mmol/L 10/24/2024 3:36 AM [facility] Anion Gap 18(H) 7 - 17 10/24/2024 3:36 AM [facility] Calcium 7.4(L) 8.7 - 10.5 mg/dL 10/24/2024 3:36 AM [facility] BUN/Creatinine Ratio 18 10.0 - 25.0 Ratio 10/24/2024 3:36 AM EST [facility] Blood (Plasma/Serum) 10/24/2024 3:01 AM EST 10/24/2024 3:12 AM EST Macy Adam DO LAB BLOOD ORDERABLE S Performing Organization Address [facility] Co de Phone Number [facility] [address] [place] [address], [address] [address] * (ABNORMAL) POCT Glucose, Fingerstick (10/24/2024 1:53 AM EST) POC Glucose 155(H) 65 - 99 mg/dL 10/24/2024 3:46 AM EST Blood specimen / Unknown 10/24/2024 1:53 AM EST 10/24/2024 3:46 AM EST Fuad Winter MD POINT OF CARE TEST ORDERABLES Performing Organization Address [facility] Co de Phone Number HOSPITAL LAB See Below * Heparin Assay (Anti Xa) (10/23/2024 10:13 PM EST) Anti Xa 0.34 IU/mL 10/23/2024 11:19 PM EST [facility] Comment: (NOTE) Heparin Thromboembolic/Standard/Full Dose Protocol: [...] LAB BLOOD ORDERAB LES Performing Organization Address [facility] [place] [address], [place] [address] * (ABNORMAL) POCT Glucose, Fingerstick (10/23/2024 9:02 [...] OF CARE TEST ORDERABLES Performing Organization Address City/[facility]/ZIP Co de Phone Number HOSPITAL LAB See Below * Magnesium (STAT) (10/23/2024 6:02 PM EST) [facility] Magnesium 1.8 1.6 - 2.7 mg/dL 10/23/2024 7:21 PM EST [facility] Blood (Plasma/Serum) 10/23/2024 6:02 PM EST 10/23/2024 6:47 PM EST Adam Mullen MD LAB BLOOD ORDERABL ES Performing Organization Address [facility] [place] [address], [place] [address] * Phosphorus (STAT) (10/23/2024 6:02 PM EST) [facility] Phosphorus 3.9 2.7 - 4.5 mg/dL 10/23/2024 7:21 PM EST [facility] Blood (Plasma/Serum) 10/23/2024 6:02 PM EST 10/23/2024 6:47 PM EST Adam Mullen MD LAB BLOOD ORDERABL ES Performing Organization Address [facility] [place] [address], [place] [address] * (ABNORMAL) Basic Metabolic Panel (STAT) (10/23/2024 6:02 PM EST) Glucose 173(H) 65 - 99 mg/dL 10/23/2024 7:21 PM [facility] Comment:Fasting: <100 mg/dL, Non-Fasting: <200 mg/dL (ADA 2004) Blood Urea Nitrogen (BUN) 71(H) 8 - 21 mg/dL 10/23/2024 7:21 PM [facility] Creatinine 4.1(H) 0.5 - 1.3 mg/dL 10/23/2024 7:21 PM [facility] eGFR 14(L) >59 10/23/2024 7:21 PM [facility] Comment:CKD-EPI (2020) in mL /min/1.73 sq meters. Sodium 145 136 - 145 mmol/L 10/23/2024 7:21 PM [facility] Potassium 5.0 3.4 - 5.3 mmol/L 10/23/2024 7:21 PM [facility] Chloride 109(H) 98 - 107 mmol/L 10/23/2024 7:21 PM [facility] CO2 21(L) 22 - 33 mmol/L 10/23/2024 7:21 PM [facility] Anion Gap 15 7 - 17 10/23/2024 7:21 PM [facility] Calcium 7.0(L) 8.7 - 10.5 mg/dL 10/23/2024 7:21 PM [facility] BUN/Creatinine Ratio 17 10.0 - 25.0 Ratio 10/23/2024 7:21 PM [facility] Blood (Plasma/Serum) 10/23/2024 6:02 PM EST 10/23/2024 6:47 PM EST Adam Mullen MD [place] [address], [address] [address] * ECG 12 lead (STAT) (10/23/2024 5:43 PM EST) Ventricular rate 73 BPM EKG [facility] Atrial rate 73 BPM EKG [facility] P-R interval 148 ms EKG [facility] QRS duration 80 ms EKG [facility] Q-T interval 460 ms EKG [facility] QTC calculation (Bazett) 507 ms EKG [facility] P axis 54 degrees EKG [facility] R axis 66 degrees EKG [facility] T axis 152 degrees EKG [facility] 10/23/2024 5:43 PM EST Narrative EKG [facility] - 10/24/2024 7:46 AM EST Normal sinus rhythm Nonspecific T wave abnormality Prolonged QT Abnormal ECG Confirmed by MD Wade John ([id number]) on 10/24/2024 7:46:04 AM Procedure Note Raciel Wade MD - 10/24/2024 Normal sinus rhythm Nonspecific T wave abnormality Prolonged QT Abnormal ECG Confirmed by MD Wade John ([id number]) on 10/24/2024 7:46:04 AM Bryant Gracia PA-C ECG ORDERABLES [facility] * Heparin Assay (Anti Xa) (10/23/2024 3:53 PM EST) Anti Xa 0.42 IU/mL 10/23/2024 5:30 PM EST [facility] Comment: (NOTE) Heparin Thromboembolic/Standard/Full Dose Protocol: [...] LAB BLOOD ORDERAB LES Performing Organization Address [facility] [place] [address], [place] [address] * (ABNORMAL) POCT Glucose, Fingerstick (10/23/2024 12:59 PM EST) POC Glucose 158(H) 65 - 99 mg/dL 10/23/2024 1:00 PM EST Blood specimen / Unknown 10/23/2024 12:59 PM EST 10/23/2024 1:00 PM EST Fuad Winter MD POINT OF CARE TEST ORDERABLES HOSPITAL LAB See Below * Albumin (10/23/2024 10:31 AM EST) Albumin 3.5 3.4 - 4.8 g/dL 10/23/2024 12:13 PM EST [facility] Blood (Plasma/Serum) 10/23/2024 10:31 AM EST 10/23/2024 11:36 AM EST Neymar Mcfarland MD LAB BLOOD ORDERAB LES Performing Organization Address [facility] [place] [address], [place] [address] * (ABNORMAL) Calcium, Ionized (10/23/2024 10:31 AM EST) Calcium, Ionized 0.88(L) 1.17 - 1.33 mmol/L 10/23/2024 12:16 PM [facility] Blood Blood specimen / Unknown 10/23/2024 10:31 AM EST 10/23/2024 11:36 AM EST Neymar Mcfarland MD LAB BLOOD ORDERAB LES Performing Organization Address [facility] [place] [address], [place] [address] * (ABNORMAL) Calcium, Total (10/23/2024 10:31 AM EST) Calcium 7.4(L) 8.7 - 10.5 mg/dL 10/23/2024 12:13 PM EST [facility] Blood (Plasma/Serum) 10/23/2024 10:31 AM EST 10/23/2024 11:36 AM EST Neymar Mcfarland MD LAB BLOOD ORDERAB LES Performing Organization Address City/[facility]/[place] [address], [address] [address] * (ABNORMAL) PTH, Intact (10/23/2024 10:31 AM EST) PTH, Intact 579(H) 15 - 65 pg/mL 10/23/2024 12:23 PM [facility] Blood (Plasma/Serum) 10/23/2024 10:31 AM EST 10/23/2024 11:36 AM EST Neymar Mcfarland MD LAB BLOOD ORDERAB LES [address] [address], [place] [address] * POCT Glucose, Fingerstick (10/23/2024 8:36 AM EST) POC Glucose 82 65 - 99 mg/dL 10/23/2024 8:37 AM EST Blood specimen / Unknown 10/23/2024 8:36 AM EST 10/23/2024 8:37 AM EST Fuad Winter MD POINT OF CARE TEST ORDERABLES HOSPITAL LAB See Below * (ABNORMAL) LIPID PANEL (10/23/2024 6:05 AM EST) Cholesterol, Total 110 <200 mg/dL 2024 8:30 AM [facility] Triglycerides 141 <150 mg/dL 10/23/2024 8:30 AM [facility] Cholesterol, HDL 30(L) >39 mg/dL 10/23/19 8:30 AM [facility] Estimated LDL 52 <130 mg/dL 10/23/2024 8:30 AM [facility] Comment: NCEP Guidelines: ?< 100 mg/dL ??Optimal 100 - 129 mg/dL ??Near Optimal/Above Optimal 130 - 159 mg/dL ??Borderline High 160 - 189 mg/dL ??High ??>/= 190 mg/dL ??Very High Cholesterol/HDL Ratio 3.7 0.0 - 5.0 Ratio 10/23/2024 8:30 AM [facility] Comment: Relative Risk ? Ratio - Male ? Ratio - Female ?0.5 ?3.4 ?3.3 ?1.0 ?5.0 ?4.4 ?2.0 ?9.6 ?7.1 ?3.0 ? 23.4 ? 11.0 Plasma/Serum 10/23/2024 6:05 AM EST 10/23/2024 7:46 AM EST Adilia Woo MD LAB BLOOD ORDERABLES Performing Organization Address City/State/[facility] [place] [address], [place] [address] * Heparin Assay (Anti Xa) (10/23/2024 6:05 AM EST) Anti Xa 0.54 IU/mL 10/23/2024 8:02 AM [facility] Comment: (NOTE) Heparin Thromboembolic/Standard/Full Dose Protocol: [...] MD LAB BLOOD ORDERABLES Performing Organization Address City/State/[facility] Co de Phone Number [facility] [address] [place] [address], [address] [address] * Phosphorus (AM) (10/23/2024 6:05 AM EST) Phosphorus 3.9 2.7 - 4.5 mg/dL 10/23/2024 8:30 AM [facility] Blood (Plasma/Serum) 10/23/2024 6:05 AM EST 10/23/2024 7:46 AM EST Neymar Mcfarland MD LAB BLOOD ORDERAB LES Performing Organization Address [facility] [place] [address], [place] [address] * Magnesium (AM) (10/23/2024 6:05 AM EST) Magnesium 1.8 1.6 - 2.7 mg/dL 10/23/2024 8:30 AM [facility] Blood (Plasma/Serum) 10/23/2024 6:05 AM EST 10/23/2024 7:46 AM EST Neymar Mcfarland MD LAB BLOOD ORDERAB LES Performing Organization Address [facility] [place] [address], [place] [address] * (ABNORMAL) Basic Metabolic Panel (AM) (10/23/2024 6:05 AM EST) Glucose 66 65 - 99 mg/dL 10/23/2024 8:30 AM [facility] Comment:Fasting: <100 mg/dL, Non-Fasting: <200 mg/dL (ADA 2005) Blood Urea Nitrogen (BUN) 74(H) 8 - 21 mg/dL 10/23/2024 8:30 AM [facility] Creatinine 4.1(H) 0.5 - 1.3 mg/dL 10/23/2024 8:30 AM [facility] eGFR 14(L) >59 10/23/2024 8:30 AM [facility] Comment:CKD-EPI (2020) in mL /min/1.73 sq meters. Sodium 147(H) 136 - 145 mmol/L 10/23/2024 8:30 AM [facility] Potassium 4.0 3.4 - 5.3 mmol/L 10/23/2024 8:30 AM [facility] Chloride 110(H) 98 - 107 mmol/L 10/23/2024 8:30 AM [facility] CO2 18(L) 22 - 33 mmol/L 10/23/2024 8:30 AM [facility] Anion Gap 19(H) 7 - 17 10/23/2024 8:30 AM [facility] Calcium 7.3(L) 8.7 - 10.5 mg/dL 10/23/2024 8:30 AM [facility] BUN/Creatinine Ratio 18 10.0 - 25.0 Ratio 10/23/2024 8:30 AM [facility] Blood (Plasma/Serum) 10/23/2024 6:05 AM EST 10/23/2024 7:46 AM EST Neymar Mcfarland MD LAB BLOOD ORDERAB LES Performing Organization Address City/State/[facility] [place] [address], [place] [address] * (ABNORMAL) Complete Blood Count WITHOUT Differential - in AM (10/23/2024 6:05 AM EST) White Blood Cell Count 11.2(H) 4.0 - 11.0 Thou/uL 10/23/2024 8:29 AM [facility] Platelet Count 374 150 - 450 Thou/uL 10/23/2024 8:29 AM [facility] Hemoglobin 9.6(L) 13.0 - 17.7 g/dL 10/23/2024 8:29 AM [facility] Hematocrit 30.5(L) 39.0 - 54.0 % 10/23/2024 8:29 AM [facility] Red Blood Cell Count 3.17(L) 4.50 - 6.20 Mil/uL 10/23/2024 8:29 AM [facility] MCV 96 80 - 100 fL 10/23/2024 8:29 AM [facility] MCH 30.3 27.0 - 31.0 pg 10/23/2024 8:29 AM [facility] MCHC 31.5 30.0 - 36.0 g/dL 10/23/2024 8:29 AM EST [facility] RDW 16.4(H) 11.5 - 14.5 % 10/23/2024 8:29 AM EST [facility] MPV 11.6 7.5 - 12.5 fL 10/23/2024 8:29 AM EST [facility] Blood Blood specimen / Unknown 10/23/2024 6:05 AM EST 10/23/2024 7:46 AM EST Neymar Mcfarland MD [place] [address], [place] [address] * POCT Glucose, Fingerstick (10/23/2024 1:59 AM EST) POC Glucose 83 65 - 99 mg/dL 10/23/2024 2:00 AM EST Blood specimen / Unknown 10/23/2024 1:59 AM EST 10/23/2024 2:00 AM EST Fuad Winter MD POINT OF CARE TEST ORDERABLES Performing Organization Address City/[facility]/ZIP Co de Phone Number [facility] LAB See Below * (ABNORMAL) POCT Glucose, [...] OF CARE TEST ORDERABLES Performing Organization Address [facility] LAB See Below * (ABNORMAL) POCT Glucose, Fingerstick (10/22/2024 1:10 PM EST) POC Glucose 154(H) 65 - 99 mg/dL 10/22/2024 1:10 PM EST Blood specimen / Unknown 10/22/2024 1:10 PM EST 10/22/2024 1:11 PM EST Fuad Winter MD POINT OF CARE TEST ORDERABLES Performing Organization Address [facility] LAB See Below * (ABNORMAL) POCT Glucose, Fingerstick (10/22/2024 9:10 AM EST) POC Glucose 139(H) 65 - 99 mg/dL 10/22/2024 9:11 AM EST Blood specimen / Unknown 10/22/2024 9:10 AM EST 10/22/2024 9:11 AM EST Fuad Winter MD POINT OF CARE TEST ORDERABLES Performing Organization Address [facility] Number [facility] LAB See Below * Heparin Assay (Anti Xa) (10/22/2024 8:12 AM EST) Anti Xa 0.37 IU/mL 10/22/2024 8:35 AM EST [facility] Comment: (NOTE) Heparin Thromboembolic/Standard/Full Dose Protocol: [...] EST Adilia Woo MD LAB BLOOD ORDERABLES [facility] [address] [place] [address], [facility] [address] [place] [address] * (ABNORMAL) Complete Blood Count WITHOUT Differential - in AM (10/22/2024 8:12 AM EST) White Blood Cell Count 10.7 4.0 - 11.0 Thou/uL 10/22/2024 8:44 AM [facility] Platelet Count 337 150 - 450 Thou/uL 10/22/2024 8:44 AM [facility] Hemoglobin 9.4(L) 13.0 - 17.7 g/dL 10/22/2024 8:44 AM [facility] Hematocrit 30.3(L) 39.0 - 54.0 % 10/22/2024 8:44 AM [facility] Red Blood Cell Count 3.13(L) 4.50 - 6.20 Mil/uL 10/22/2024 8:44 AM [facility] MCV 97 80 - 100 fL 10/22/2024 8:44 AM [facility] MCH 30.0 27.0 - 31.0 pg 10/22/2024 8:44 AM [facility] MCHC 31.0 30.0 - 36.0 g/dL 10/22/2024 8:44 AM [facility] RDW 16.2(H) 11.5 - 14.5 % 10/22/2024 8:44 AM [facility] MPV 11.3 7.5 - 12.5 fL 10/22/2024 8:44 AM [facility] Blood Blood specimen / Unknown 10/22/2024 8:12 AM EST 10/22/2024 8:18 AM EST Adilia Woo MD LAB BLOOD ORDERABLES Performing Organization Address [facility] [place] [address], [place] [address] * Magnesium (AM) (10/22/2024 8:12 AM EST) Magnesium 1.7 1.6 - 2.7 mg/dL 10/22/2024 8:54 AM [facility] Blood (Plasma/Serum) 10/22/2024 8:12 AM EST 10/22/2024 8:18 AM EST Adilia Woo [place] [address], [place] [address] * (ABNORMAL) Basic Metabolic Panel (AM) (10/22/2024 8:12 AM EST) Glucose 124(H) 65 - 99 mg/dL 10/22/2024 8:54 AM [facility] Comment:Fasting: <100 mg/dL, Non-Fasting: <200 mg/dL (ADA 2004) Blood Urea Nitrogen (BUN) 82(H) 8 - 21 mg/dL 10/22/2024 8:54 AM [facility] Creatinine 4.3(H) 0.5 - 1.3 mg/dL 10/22/2024 8:54 AM [facility] eGFR 13(L) >59 10/22/2024 8:54 AM [facility] Comment:CKD-EPI (2020) in mL /min/1.73 sq meters. Sodium 145 136 - 145 mmol/L 10/22/2024 8:54 AM [facility] Potassium 4.4 3.4 - 5.3 mmol/L 10/22/2024 8:54 AM [facility] Chloride 110(H) 98 - 107 mmol/L 10/22/2024 8:54 AM [facility] CO2 17(L) 22 - 33 mmol/L 10/22/2024 8:54 AM [facility] Anion Gap 18(H) 7 - 17 10/22/2024 8:54 AM [facility] Calcium 7.1(L) 8.7 - 10.5 mg/dL 10/22/2024 8:54 AM [facility] BUN/Creatinine Ratio 19 10.0 - 25.0 Ratio 10/22/2024 8:54 AM [facility] Blood (Plasma/Serum) 10/22/2024 8:12 AM EST 10/22/2024 8:18 AM EST Adilia Woo [place] [address], [address] [place] [address] * (ABNORMAL) POCT Glucose, Fingerstick (10/22/2024 1:23 AM EST) POC Glucose 122(H) 65 - 99 mg/dL 10/22/2024 1:28 AM EST Blood specimen / Unknown 10/22/2024 1:23 AM EST 10/22/2024 1:28 AM EST Fuad Winter MD POINT OF CARE TEST ORDERABLES HOSPITAL LAB See Below * ECG 12 lead (10/21/2024 9:45 PM EST) Ventricular rate 80 BPM EKG [facility] Atrial rate 80 BPM EKG [facility] P-R interval 146 ms EKG [facility] QRS duration 86 ms EKG [facility] Q-T interval 438 ms EKG [facility] QTC calculation (Bazett) 506 ms EKG [facility] P axis 52 degrees EKG [facility] R axis 59 degrees EKG [facility] T axis 229 degrees EKG [facility] 10/21/2024 9:45 PM EST Narrative EKG [facility] - 10/22/2024 7:57 AM EST Normal [...] Hanson MD ECG ORDERABLES Performing Organization Address City/[facility] de Phone Number [facility] * (ABNORMAL) POCT Glucose, Fingerstick (10/21/2024 9:04 PM EST) POC Glucose 190(H) 65 - 99 mg/dL 10/21/2024 9:09 PM EST Blood specimen / Unknown 10/21/2024 9:04 PM EST 10/21/2024 9:09 PM EST Fuad Winter MD POINT OF CARE TEST ORDERABLES Performing Organization Address [facility] Number [facility] See Below * (ABNORMAL) POCT Glucose, Fingerstick (10/21/2024 6:23 PM EST) POC Glucose 140(H) 65 - 99 mg/dL 10/21/2024 6:24 PM EST Blood specimen / Unknown 10/21/2024 6:23 PM EST 10/21/2024 6:24 PM EST Fuad Winter MD POINT OF CARE TEST ORDERABLES Performing Organization Address [facility] Number [facility] See Below * (ABNORMAL) POCT Glucose, Fingerstick (10/21/2024 1:38 PM EST) POC Glucose 270(H) 65 - 99 mg/dL 10/21/2024 1:39 PM EST Blood specimen / Unknown 10/21/2024 1:38 PM EST 10/21/2024 1:39 PM EST Fuad Winter MD POINT OF CARE TEST ORDERABLES Performing Organization Address [facility] Phone Number [facility] [facility] See Below * (ABNORMAL) POCT Glucose, [...] Xa 0.42 IU/mL 10/21/2024 9:49 AM EST [facility] Comment: (NOTE) Heparin Thromboembolic/Standard/Full Dose Protocol: [...] MD LAB BLOOD ORDERABLES Performing Organization Address [facility] [place] [address], [place] [address] * (ABNORMAL) POCT Glucose, Fingerstick (10/21/2024 8:35 AM EST) [facility] POC Glucose 219(H) 65 - 99 mg/dL 10/21/2024 8:36 AM EST Blood specimen / Unknown 10/21/2024 8:35 AM EST 10/21/2024 8:36 AM EST Fuad Winter MD POINT OF CARE TEST ORDERABLES Performing Organization Address [facility] Phone Number HOSPITAL LAB See Below * (ABNORMAL) POCT Glucose, Fingerstick (10/21/2024 8:03 AM EST) POC Glucose 181(H) 65 - 99 mg/dL 10/21/2024 8:04 AM EST Blood specimen / Unknown 10/21/2024 8:03 AM EST 10/21/2024 8:04 AM EST Fuad Winter MD POINT OF CARE TEST ORDERABLES Performing Organization Address [facility] Co de Phone Number HOSPITAL LAB See Below * (ABNORMAL) Basic Metabolic Panel (Routine) (10/21/2024 3:09 AM EST) Glucose 193(H) 65 - 99 mg/dL 10/21/2024 3:41 AM [facility] Comment:Fasting: <100 mg/dL, Non-Fasting: <200 mg/dL (ADA 2004) Blood Urea Nitrogen (BUN) 83(H) 8 - 21 mg/dL 10/21/2024 3:41 AM [facility] Creatinine 4.3(H) 0.5 - 1.3 mg/dL 10/21/2024 3:41 AM [facility] eGFR 13(L) >59 10/21/2024 3:41 AM [facility] Comment:CKD-EPI (2020) in mL /min/1.73 sq meters. Sodium 140 136 - 145 mmol/L 10/21/2024 3:41 AM [facility] Potassium 4.5 3.4 - 5.3 mmol/L 10/21/2024 3:41 AM [facility] Chloride 109(H) 98 - 107 mmol/L 10/21/2024 3:41 AM [facility] CO2 15(L) 22 - 33 mmol/L 10/21/2024 3:41 AM [facility] Anion Gap 16 7 - 17 10/21/2024 3:41 AM [facility] Calcium 7.1(L) 8.7 - 10.5 mg/dL 10/21/2024 3:41 AM [facility] BUN/Creatinine Ratio 19 10.0 - 25.0 Ratio 10/21/2024 3:41 AM [facility] Blood (Plasma/Serum) 10/21/2024 3:09 AM EST 10/21/2024 3:13 AM EST Magdaleno Crowder [place] [address], [place] [address] * (ABNORMAL) Complete Blood Count WITHOUT Differential - Early AM (10/21/2024 3:09 AM EST) White Blood Cell Count 10.8 4.0 - 11.0 Thou/uL 10/21/2024 3:18 AM [facility] Platelet Count 299 150 - 450 Thou/uL 10/21/2024 3:18 AM [facility] Hemoglobin 8.9(L) 13.0 - 17.7 g/dL 10/21/2024 3:18 AM [facility] Hematocrit 28.9(L) 39.0 - 54.0 % 10/21/2024 3:18 AM [facility] Red Blood Cell Count 2.97(L) 4.50 - 6.20 Mil/uL 10/21/2024 3:18 AM [facility] MCV 97 80 - 100 fL 10/21/2024 3:18 AM [facility] MCH 30.0 27.0 - 31.0 pg 10/21/2024 3:18 AM [facility] MCHC 30.8 30.0 - 36.0 g/dL 10/21/2024 3:18 AM [facility] RDW 16.3(H) 11.5 - 14.5 % 10/21/2024 3:18 AM [facility] MPV 11.0 7.5 - 12.5 fL 10/21/2024 3:18 AM [facility] Blood Blood specimen / Unknown 10/21/2024 3:09 AM EST 10/21/2024 3:13 AM EST Magdaleno Crowder MD LAB BLOOD ORDERABLES Performing Organization Address City/State/[facility] [place] [address], [place] [address] * Heparin Assay (Anti Xa) (10/21/2024 3:09 AM EST) Anti Xa 0.35 IU/mL 10/21/2024 3:31 AM [facility] Comment: (NOTE) Heparin Thromboembolic/Standard/Full Dose Protocol: [...] MD LAB BLOOD ORDERABLES Performing Organization Address [facility]/State/[place] [address], [facility] [address] [place] [address] * (ABNORMAL) POCT Glucose, Fingerstick (10/21/2024 2:23 AM EST) POC Glucose 198(H) 65 - 99 mg/dL 10/21/2024 2:23 AM EST Blood specimen / Unknown 10/21/2024 2:23 AM EST 10/21/2024 2:24 AM EST Fuad Winter MD POINT OF CARE TEST ORDERABLES Performing Organization Address [facility] Phone Number HOSPITAL LAB See Below * (ABNORMAL) POCT Glucose, Fingerstick (10/20/2024 8:47 PM EST) POC Glucose 218(H) 65 - 99 mg/dL 10/20/2024 8:50 PM EST Blood specimen / Unknown 10/20/2024 8:47 PM EST 10/20/2024 8:50 PM EST Fuad Winter MD POINT OF CARE TEST ORDERABLES Performing Organization Address [facility] Number [facility] LAB See Below * Heparin Assay (Anti Xa) (10/20/2024 8:34 PM EST) Pathologist [facility] [place] Anti Xa 0.29 IU/mL 10/20/2024 9:00 PM EST [facility] Comment: (NOTE) Heparin Thromboembolic/Standard/Full Dose Protocol: [...] MD LAB BLOOD ORDERABLES Performing Organization Address City/State/[facility] [place] [address], [place] [address] * (ABNORMAL) POCT Glucose, Fingerstick (10/20/2024 5:51 PM EST) POC Glucose 175(H) 65 - 99 mg/dL 10/20/2024 5:52 PM EST Blood specimen / Unknown 10/20/2024 5:51 PM EST 10/20/2024 5:52 PM EST Fuad Winter MD POINT OF CARE TEST ORDERABLES Performing Organization Address [facility] Phone [facility] LAB See Below * (ABNORMAL) POCT Glucose, Fingerstick (10/20/2024 3:47 PM EST) POC Glucose 222(H) 65 - 99 mg/dL 10/20/2024 3:52 PM EST Blood specimen / Unknown 10/20/2024 3:47 PM EST 10/20/2024 3:52 PM EST Fuad Winter MD POINT OF CARE TEST ORDERABLES Performing Organization Address [facility] Phone Number [facility] LAB See Below * (ABNORMAL) POCT Glucose, Fingerstick (10/20/2024 11:43 AM EST) POC Glucose 210(H) 65 - 99 mg/dL 10/20/2024 11:45 AM EST Blood specimen / Unknown 10/20/2024 11:43 AM EST 10/20/2024 11:44 AM EST Fuad Winter MD POINT OF CARE TEST ORDERABLES Performing Organization Address [facility] LAB See Below * (ABNORMAL) Blood Gas, Venous (10/20/2024 10:39 AM EST) Pathologist [facility] [place] Venous Blood PH 7.29(L) 7.33 - 7.43 10/20/2024 10:54 AM [facility] Venous pCO2 39 35 - 50 mmHG 10/20/2024 10:54 AM [facility] Venous pO2 49 0 - 60 mmHG 10/20/2024 10:54 AM [facility] Venous Total CO2 20(L) 23 - 29 mmol/L 10/20/2024 10:54 AM [facility] Respiratory Info NASAL 4 L/MIN 10/20/2024 10:39 AM EST Base Deficiency 7.2 mmol/L 10:54 AM [facility] Comment:Reference Range: Neg ative 2 to Positive 3 Blood Blood specimen / Unknown 10/20/2024 10:39 AM EST 10/20/2024 10:47 AM EST Kristopher Hickey MD LAB BLOOD ORDERAB LES Performing Organization Address [facility] [place] [address], [place] [address] * (ABNORMAL) POCT Glucose, Fingerstick (10/20/2024 10:37 AM EST) POC Glucose 187(H) 65 - 99 mg/dL 10/20/2024 10:37 AM EST Blood specimen / Unknown 10/20/2024 10:37 AM EST 10/20/2024 10:38 AM EST Fuad Winter MD POINT OF CARE TEST ORDERABLES Performing Organization Address [facility] Co de Phone Number HOSPITAL LAB See Below * Lactic Acid, Plasma (STAT) (10/20/2024 10:00 AM EST) Lactic Acid 0.8 0.5 - 1.9 mmol/L 10/20/2024 10:37 AM EST [facility] Blood Plasma specimen / Unknown 10/20/2024 10:00 AM EST 10/20/2024 10:07 AM EST Kristopher Hickey MD LAB BLOOD ORDERAB LES Performing Organization Address [facility] Co de Phone Number [address] [address], [address] [address] * (ABNORMAL) POCT Glucose, Fingerstick (10/20/2024 7:48 AM EST) POC Glucose 156(H) 65 - 99 mg/dL 10/20/2024 7:49 AM EST Blood specimen / Unknown 10/20/2024 7:48 AM EST 10/20/2024 7:49 AM EST Fuad Winter MD POINT OF CARE TEST ORDERABLES [facility] LAB See Below * (ABNORMAL) POCT Glucose, Fingerstick (10/20/2024 5:43 AM EST) POC Glucose 148(H) 65 - 99 mg/dL 10/20/2024 5:44 AM EST Blood specimen / Unknown 10/20/2024 5:43 AM EST 10/20/2024 5:44 AM EST Fuad Winetr MD POINT OF CARE TEST ORDERABLES Performing Organization Address City/[facility] Co de Phone Number [facility] LAB See Below * (ABNORMAL) POCT Glucose, Fingerstick (10/20/2024 2:15 AM EST) POC Glucose 219(H) 65 - 99 mg/dL 10/20/2024 2:16 AM EST Blood specimen / Unknown 10/20/2024 2:15 AM EST 10/20/2024 2:16 AM EST Fuad Winter MD POINT OF CARE TEST ORDERABLES Performing Organization Address [facility] de Phone Number [facility] LAB See Below * Phosphorus (Routine) (10/19/2024 11:59 PM EST) Phosphorus 4.4 2.7 - 4.5 mg/dL 10/20/2024 1:00 AM EST [facility] Blood (Plasma/Serum) 10/19/2024 11:59 PM EST 10/20/2024 12:25 AM EST Kristopher Hickey MD LAB BLOOD ORDERAB LES Performing Organization Address [facility] [place] [address], [place] [address] * Magnesium (Routine) (10/19/2024 11:59 PM EST) Magnesium 1.6 1.6 - 2.7 mg/dL 10/20/2024 1:00 AM [facility] Blood (Plasma/Serum) 10/19/2024 11:59 PM EST 10/20/2024 12:25 AM EST Kristopher Hickey MD [place] [address], [address] [address] * (ABNORMAL) Complete Blood Count, with Differential (10/19/2024 11:59 PM EST) White Blood Cell Count 11.5(H) 4.0 - 11.0 Thou/uL 10/20/2024 12:32 AM [facility] Platelet Count 271 150 - 450 Thou/uL 10/20/2024 12:32 AM [facility] Hemoglobin 8.9(L) 13.0 - 17.7 g/dL 10/20/2024 12:32 AM [facility] Hematocrit 28.6(L) 39.0 - 54.0 % 10/20/2024 12:32 AM [facility] Red Blood Cell Count 2.93(L) 4.50 - 6.20 Mil/uL 10/20/2024 12:32 AM [facility] MCV 98 80 - 100 fL 10/20/2024 12:32 AM [facility] MCH 30.4 27.0 - 31.0 pg 10/20/2024 12:32 AM [facility] MCHC 31.1 30.0 - 36.0 g/dL 10/20/2024 12:32 AM [facility] RDW 16.5(H) 11.5 - 14.5 % 10/20/2024 12:32 AM [facility] MPV 11.3 7.5 - 12.5 fL 10/20/2024 12:32 AM [facility] Neutrophils Auto 80.7 % 10/20/19 12:32 AM [facility] Immature Granulocytes 0.6 % 10/20/2024 12:32 AM [facility] Lymphocytes Auto 11.6 % 10/20/19 12:32 AM [facility] Monocytes Auto 6.7 % 10/20/2024 12:32 AM [facility] Eosinophils Auto 0.2 % 10/20/19 12:32 AM [facility] Basophils Auto 0.2 % 10/20/2024 12:32 AM [facility] Abs Neutrophils Auto 9.25(H) 2.00 - 7.50 Thou/uL 10/20/2024 12:32 AM [facility] Abs Immature Granulocytes 0.07 0.00 - 0.10 Thou/uL 10/20/2024 12:32 AM [facility] Abs Lymphocytes Auto 1.33(L) 1.50 - 4.50 Thou/uL 10/20/2024 12:32 AM [facility] Abs Monocytes Auto 0.77 0.20 - 1.50 Thou/uL 10/20/2024 12:32 AM [facility] Abs Eosinophils Auto 0.02 0.00 - 0.70 Thou/uL 10/20/2024 12:32 AM [facility] Abs Basophils Auto 0.02 0.00 - 0.20 Thou/uL 10/20/2024 12:32 AM [facility] Blood Blood specimen / Unknown 10/19/2024 11:59 PM EST 10/20/2024 12:25 AM EST Fuad Winter MD [place] [address], [place] [address] * (ABNORMAL) Basic Metabolic Panel (Routine) (10/19/2024 11:59 PM EST) Glucose 183(H) 65 - 99 mg/dL 10/20/2024 1:00 AM [facility] Comment:Fasting: <100 mg/dL, Non-Fasting: <200 mg/dL (ADA 2005) Blood Urea Nitrogen (BUN) 86(H) 8 - 21 mg/dL 10/20/2024 1:00 AM [facility] Creatinine 4.7(H) 0.5 - 1.3 mg/dL 10/20/2024 1:00 AM [facility] eGFR 12(L) >59 10/20/2024 1:00 AM [facility] Comment:CKD-EPI (2020) in mL /min/1.73 sq meters. Sodium 140 136 - 145 mmol/L 10/20/2024 1:00 AM [facility] Potassium 4.4 3.4 - 5.3 mmol/L 10/20/2024 1:00 AM [facility] Chloride 106 98 - 107 mmol/L 10/20/2024 1:00 AM [facility] CO2 14(L) 22 - 33 mmol/L 10/20/2024 1:00 AM [facility] Anion Gap 20(H) 7 - 17 10/20/2024 1:00 AM [facility] Calcium 7.2(L) 8.7 - 10.5 mg/dL 10/20/2024 1:00 AM [facility] BUN/Creatinine Ratio 18 10.0 - 25.0 Ratio 10/20/2024 1:00 AM [facility] Blood (Plasma/Serum) 10/19/2024 11:59 PM EST 10/20/2024 12:25 AM EST Magdaleno Crowder [place] [address], [place] [address] * Heparin Assay (Anti Xa) (10/19/2024 11:59 PM EST) Anti Xa 0.45 IU/mL 10/20/2024 12:49 AM [facility] Comment: (NOTE) Heparin Thromboembolic/Standard/Full Dose Protocol: [...] LAB BLOOD ORDERAB LES Performing Organization Address City/State/[facility] [place] [address], [place] [address] * (ABNORMAL) POCT Glucose, Fingerstick (10/19/2024 8:00 PM EST) POC Glucose 132(H) 65 - 99 mg/dL 10/20/2024 2:16 AM EST Blood specimen / Unknown 10/19/2024 8:00 PM EST 10/20/2024 2:16 AM EST Fuad Winter MD POINT OF CARE TEST ORDERABLES Performing Organization Address [facility] LAB See Below * (ABNORMAL) POCT Glucose, Fingerstick (10/19/2024 6:53 PM EST) POC Glucose 165(H) 65 - 99 mg/dL 10/19/2024 6:54 PM EST Blood specimen / Unknown 10/19/2024 6:53 PM EST 10/19/2024 6:54 PM EST Fuad Winter MD POINT OF CARE TEST ORDERABLES Performing Organization Address [facility] LAB See Below * (ABNORMAL) POCT Glucose, Fingerstick (10/19/2024 5:42 PM EST) POC Glucose 114(H) 65 - 99 mg/dL 10/19/2024 5:43 PM EST Blood specimen / Unknown 10/19/2024 5:42 PM EST 10/19/2024 5:43 PM EST Fuad Winter MD POINT OF CARE TEST ORDERABLES Performing Organization Address [facility] LAB See Below * (ABNORMAL) POCT Glucose, Fingerstick (10/19/2024 4:33 PM EST) POC Glucose 159(H) 65 - 99 mg/dL 10/19/2024 4:34 PM EST Blood specimen / Unknown 10/19/2024 4:33 PM EST 10/19/2024 4:34 PM EST Fuad Winter MD POINT OF CARE TEST ORDERABLES Performing Organization Address [facility] LAB See Below * (ABNORMAL) Basic Metabolic Panel (10/19/2024 3:47 PM EST) Glucose 126(H) 65 - 99 mg/dL 10/19/2024 4:58 PM [facility] Comment:Fasting: <100 mg/dL, Non-Fasting: <200 mg/dL (ADA 2004) Blood Urea Nitrogen (BUN) 81(H) 8 - 21 mg/dL 10/19/2024 4:58 PM [facility] Creatinine 4.6(H) 0.5 - 1.3 mg/dL 10/19/2024 4:58 PM [facility] eGFR 12(L) >59 10/19/2024 4:58 PM [facility] Comment:CKD-EPI (2020) in mL /min/1.73 sq meters. Sodium 143 136 - 145 mmol/L 10/19/2024 4:58 PM [facility] Potassium 4.4 3.4 - 5.3 mmol/L 10/19/2024 4:58 PM [facility] Chloride 109(H) 98 - 107 mmol/L 10/19/2024 4:58 PM [facility] CO2 15(L) 22 - 33 mmol/L 10/19/2024 4:58 PM [facility] Anion Gap 19(H) 7 - 17 10/19/2024 4:58 PM [facility] Calcium 7.0(L) 8.7 - 10.5 mg/dL 10/19/2024 4:58 PM [facility] BUN/Creatinine Ratio 18 10.0 - 25.0 Ratio 10/19/2024 4:58 PM [facility] Blood (Plasma/Serum) 10/19/2024 3:47 PM EST 10/19/2024 4:16 PM EST Pushpa Gallegos MD [place] [address], [place] [address] * (ABNORMAL) Hemoglobin and Hematocrit (10/19/2024 2:25 PM EST) Hematocrit 32.3(L) 39.0 - 54.0 % 10/19/2024 3:39 PM [facility] Hemoglobin 9.9(L) 13.0 - 17.7 g/dL 10/19/2024 3:39 PM [facility] Blood Blood specimen / Unknown 10/19/2024 2:25 PM EST 10/19/2024 3:31 PM EST Kristopher Hickey MD LAB BLOOD ORDERAB LES Performing Organization Address [facility] Co de Phone Number [facility] [address] [place] [address], [facility] [address] [place] [address] * Heparin Assay (Anti Xa) (10/19/2024 2:25 PM EST) Anti Xa 0.52 IU/mL 10/19/2024 3:44 PM [facility] Comment: (NOTE) Heparin Thromboembolic/Standard/Full Dose Protocol: [...] LAB BLOOD ORDERAB LES Performing Organization Address City/State/[facility] [place] [address], [place] [address] * (ABNORMAL) Blood Gas, Venous (10/19/2024 2:25 PM EST) Venous Blood PH 7.32(L) 7.33 - 7.43 10/19/2024 3:10 PM [facility] Venous pCO2 31(L) 35 - 50 mmHG 10/19/2024 3:10 PM [facility] Venous pO2 <30 0 - 60 mmHG 10/19/2024 3:10 PM [facility] Venous Total CO2 17(L) 23 - 29 mmol/L 10/19/2024 3:10 PM [facility] Respiratory Info VM 50% 10/19/19 2:25 PM EST Base Deficiency 9.0 mmol/L 3:10 PM [facility] Comment:Reference Range: Neg ative 2 to Positive 3 Blood Blood specimen / Unknown 10/19/2024 2:25 PM EST 10/19/2024 2:56 PM EST Pushpa Gallegos MD LAB BLOOD ORDERABLES Performing Organization Address [facility] Co de Phone Number [address] [address], [address] [address] * (ABNORMAL) POCT Glucose, Fingerstick (10/19/2024 1:52 PM EST) POC Glucose 133(H) 65 - 99 mg/dL 10/19/2024 1:53 PM EST Blood specimen / Unknown 10/19/2024 1:52 PM EST 10/19/2024 1:53 PM EST Fuad Winter MD POINT OF CARE TEST ORDERABLES Performing Organization Address [facility] Co de Phone Number [facility] LAB See Below * (ABNORMAL) POCT Glucose, Fingerstick (10/19/2024 11:40 AM EST) POC Glucose 145(H) 65 - 99 mg/dL 10/19/2024 11:41 AM EST Blood specimen / Unknown 10/19/2024 11:40 AM EST 10/19/2024 11:41 AM EST Fuad Winter MD POINT OF CARE TEST ORDERABLES Performing Organization Address [facility] Co de Phone Number [facility] LAB See Below * B-Hydroxybutyrate (10/19/2024 11:34 AM EST) B-Hydroxybutyrate 0.26 <0.28 mmol/L 10/19/2024 4:15 PM EST [facility] Comment: In the presence of uncontrolled [...] MD LAB BLOOD ORDERABLES Performing Organization Address City/[facility]/[place] [address], [place] [address] * (ABNORMAL) High Sensitivity Troponin T (10/19/2024 11:34 AM EST) High Sensitivity Troponin T 4,276(HH) <23 ng/L 10/19/2024 3:44 PM [facility] Comment:Recurring Critical R esult. Previously phoned. Delta (Change) 2,446(H) <3 10/19/2024 3:44 PM [facility] Comment:Increased Plasma/Serum 10/19/2024 11:3 4 AM EST 10/19/2024 11:54 AM EST Pushpa Gallegos MD LAB BLOOD ORDERABLES Performing Organization Address City/[facility]/[place] [address], [place] [address] * (ABNORMAL) Basic Metabolic Panel (10/19/2024 11:34 AM EST) Pathologist [facility] [place] Glucose 128(H) 65 - 99 mg/dL 10/19/2024 1:00 PM [facility] Comment:Fasting: <100 mg/dL, Non-Fasting: <200 mg/dL (ADA 2005) Blood Urea Nitrogen (BUN) 84(H) 8 - 21 mg/dL 10/19/2024 1:00 PM [facility] Creatinine 4.8(H) 0.5 - 1.3 mg/dL 10/19/2024 1:00 PM [facility] eGFR 12(L) >59 10/19/2024 1:00 PM [facility] Comment:CKD-EPI (2020) in mL /min/1.73 sq meters. Sodium 142 136 - 145 mmol/L 10/19/2024 1:00 PM [facility] Potassium 4.3 3.4 - 5.3 mmol/L 10/19/2024 1:00 PM [facility] Chloride 110(H) 98 - 107 mmol/L 10/19/2024 1:00 PM [facility] CO2 14(L) 22 - 33 mmol/L 10/19/2024 1:00 PM [facility] Anion Gap 18(H) 7 - 17 10/19/2024 1:00 PM [facility] Calcium 7.0(L) 8.7 - 10.5 mg/dL 10/19/2024 1:00 PM [facility] BUN/Creatinine Ratio 18 10.0 - 25.0 Ratio 10/19/2024 1:00 PM [facility] Blood (Plasma/Serum) 10/19/2024 11:34 AM EST 10/19/2024 11:54 AM EST Pushpa Gallegos MD LAB BLOOD ORDERABLES Performing Organization Address City/[facility]/[place] [address], [place] [address] * (ABNORMAL) Blood Gas, Venous (10/19/2024 10:36 AM EST) Venous Blood PH 7.32(L) 7.33 - 7.43 10/19/2024 10:59 AM [facility] Venous pCO2 33(L) 35 - 50 mmHG 10/19/2024 10:59 AM [facility] Venous pO2 53 0 - 60 mmHG 10/19/2024 10:59 AM [facility] Venous Total CO2 18(L) 23 - 29 mmol/L 10/19/2024 10:59 AM [facility] Respiratory Info VM 50% 10/19/19 25 10:36 AM EST Base Deficiency 8.3 mmol/L 10:59 AM [facility] Comment:Reference Range: Neg ative 2 to Positive 3 Blood Blood specimen / Unknown 10/19/2024 10:36 AM EST 10/19/2024 10:56 AM EST Pushpa Gallegos MD LAB BLOOD ORDERABLES Performing Organization Address City/[facility]/[place] [address], [facility] [address] [place] [address] * (ABNORMAL) POCT Glucose, Fingerstick (10/19/2024 10:34 AM EST) POC Glucose 131(H) 65 - 99 mg/dL 10/19/2024 10:34 AM EST Blood specimen / Unknown 10/19/2024 10:34 AM EST 10/19/2024 10:35 AM EST Fuad Winter MD POINT OF CARE TEST ORDERABLES Performing Organization Address [facility] Phone Number [facility] LAB See Below * (ABNORMAL) POCT Glucose, Fingerstick (10/19/2024 9:08 AM EST) POC Glucose 146(H) 65 - 99 mg/dL 10/19/2024 9:08 AM EST Blood specimen / Unknown 10/19/2024 9:08 AM EST 10/19/2024 9:09 AM EST Fuad Winter MD POINT OF CARE TEST ORDERABLES Performing Organization Address [facility] LAB See Below * (ABNORMAL) POCT Glucose, Fingerstick (10/19/2024 7:58 AM EST) POC Glucose 118(H) 65 - 99 mg/dL 10/19/2024 8:00 AM EST Blood specimen / Unknown 10/19/2024 7:58 AM EST 10/19/2024 7:59 AM EST Fuad Winter MD POINT OF CARE TEST ORDERABLES Performing Organization Address [facility] Number [facility] See Below * Heparin Assay (Anti Xa) (10/19/2024 7:44 AM EST) Anti Xa 0.36 IU/mL 10/19/2024 8:39 AM EST [facility] Comment: (NOTE) Heparin Thromboembolic/Standard/Full Dose Protocol: [...] LAB BLOOD ORDERAB LES Performing Organization Address City/[facility]/[place] [address], [place] [address] * (ABNORMAL) Basic Metabolic Panel (10/19/2024 7:44 AM EST) Glucose 110(H) 65 - 99 mg/dL 10/19/2024 8:53 AM [facility] Comment:Fasting: <100 mg/dL, Non-Fasting: <200 mg/dL (ADA 2004) Blood Urea Nitrogen (BUN) 84(H) 8 - 21 mg/dL 10/19/2024 8:53 AM [facility] Creatinine 4.8(H) 0.5 - 1.3 mg/dL 10/19/2024 8:53 AM [facility] eGFR 12(L) >59 10/19/2024 8:53 AM [facility] Comment:CKD-EPI (2020) in mL /min/1.73 sq meters. Sodium 141 136 - 145 mmol/L 10/19/2024 8:53 AM [facility] Potassium 4.6 3.4 - 5.3 mmol/L 10/19/2024 8:53 AM [facility] Chloride 109(H) 98 - 107 mmol/L 10/19/2024 8:53 AM [facility] CO2 14(L) 22 - 33 mmol/L 10/19/2024 8:53 AM [facility] Anion Gap 18(H) 7 - 17 10/19/2024 8:53 AM [facility] Calcium 7.2(L) 8.7 - 10.5 mg/dL 10/19/2024 8:53 AM [facility] BUN/Creatinine Ratio 18 10.0 - 25.0 Ratio 10/19/2024 8:53 AM [facility] Blood (Plasma/Serum) 10/19/2024 7:44 AM EST 10/19/2024 8:19 AM EST Pushpa Gallegos MD [place] [address], [facility] [address] [place] [address] * (ABNORMAL) POCT Glucose, Fingerstick (10/19/2024 6:38 AM EST) [facility] POC Glucose 148(H) 65 - 99 mg/dL 10/19/2024 6:39 AM EST Blood specimen / Unknown 10/19/2024 6:38 AM EST 10/19/2024 6:39 AM EST Fuad Winter MD POINT OF CARE TEST ORDERABLES Performing Organization Address [facility]/ZIP Co de Phone Number [facility] See Below * (ABNORMAL) POCT Glucose, Fingerstick (10/19/2024 5:25 AM EST) [facility] POC Glucose 169(H) 65 - 99 mg/dL 10/19/2024 5:29 AM EST Blood specimen / Unknown 10/19/2024 5:25 AM EST 10/19/2024 5:29 AM EST Fuad Winter MD POINT OF CARE TEST ORDERABLES Performing Organization Address [facility] Co co Phone Number [facility] See Below * (ABNORMAL) High Sensitivity Troponin T (10/19/2024 5:15 AM EST) [facility] High Sensitivity Troponin T 4,239(HH) <23 ng/L 10/19/2024 7:11 AM [facility] Comment:Recurring Critical R esult. Previously phoned. Delta (Change) 2,409(H) <3 10/19/2024 7:11 AM [facility] Comment:Increased Blood (Plasma/Serum) 10/19/2024 5:15 AM EST 10/19/2024 6:04 AM EST Pushpa Gallegos MD LAB BLOOD ORDERABLES Performing Organization Address [facility] [address], [place] [address] * (ABNORMAL) BASIC METABOLIC PANEL (10/19/2024 4:15 AM EST) Glucose 143(H) 65 - 99 mg/dL 10/19/2024 5:00 AM [facility] Comment:Fasting: <100 mg/dL, Non-Fasting: <200 mg/dL (ADA 2004) Blood Urea Nitrogen (BUN) 84(H) 8 - 21 mg/dL 10/19/2024 5:00 AM [facility] Creatinine 5.0(H) 0.5 - 1.3 mg/dL 10/19/2024 5:00 AM [facility] eGFR 11(L) >59 10/19/2024 5:00 AM [facility] Comment:CKD-EPI (2020) in mL /min/1.73 sq meters. Sodium 142 136 - 145 mmol/L 10/19/2024 5:00 AM [facility] Potassium 4.3 3.4 - 5.3 mmol/L 10/19/2024 5:00 AM [facility] Chloride 109(H) 98 - 107 mmol/L 10/19/2024 5:00 AM [facility] CO2 14(L) 22 - 33 mmol/L 10/19/2024 5:00 AM [facility] Anion Gap 19(H) 7 - 17 10/19/2024 5:00 AM [facility] Calcium 6.8(LL) 8.7 - 10.5 mg/dL 10/19/2024 5:00 AM [facility] BUN/Creatinine Ratio 17 10.0 - 25.0 Ratio 10/19/2024 5:00 AM [facility] Plasma/Serum 10/19/2024 4:15 AM EST 10/19/2024 4:25 AM EST Fuad Winter MD LAB BLOOD ORD ERABLES [facility] [address] [place] [address], [facility] [address] [place] [address] * (ABNORMAL) POCT Glucose, Fingerstick (10/19/2024 4:14 AM EST) POC Glucose 154(H) 65 - 99 mg/dL 10/19/2024 4:15 AM EST Blood specimen / Unknown 10/19/2024 4:14 AM EST 10/19/2024 4:15 AM EST Fuad Winter MD POINT OF CARE TEST ORDERABLES Performing Organization Address [facility] Phone Number HOSPITAL LAB See Below * (ABNORMAL) POCT Glucose, Fingerstick (10/19/2024 2:45 AM EST) Pathologist [facility] [place] POC Glucose 192(H) 65 - 99 mg/dL 10/19/2024 2:46 AM EST Blood specimen / Unknown 10/19/2024 2:45 AM EST 10/19/2024 2:46 AM EST Fuad Winter MD POINT OF CARE TEST ORDERABLES Performing Organization Address [facility] Phone Number [facility] LAB See Below * Heparin Assay (Anti Xa) (10/19/2024 1:54 AM EST) [facility] Anti Xa 0.25 IU/mL 10/19/2024 2:28 AM EST [facility] Comment: (NOTE) Heparin Thromboembolic/Standard/Full Dose Protocol: [...] LAB BLOOD ORDERAB LES Performing Organization Address [facility] [place] [address], [place] [address] * (ABNORMAL) POCT Glucose, Fingerstick (10/19/2024 1:35 AM EST) POC Glucose 160(H) 65 - 99 mg/dL 10/19/2024 1:36 AM EST Blood specimen / Unknown 10/19/2024 1:35 AM EST 10/19/2024 1:36 AM EST Fuad Winter MD POINT OF CARE TEST ORDERABLES Performing Organization Address City/[facility] Co de Phone Number HOSPITAL LAB See Below * (ABNORMAL) Hemoglobin A1C with Estimated Average Glucose (10/19/2024 1:20 AM EST) Hemoglobin A1C 8.7(H) <5.7 % 10/19/2024 12:02 PM [facility] Comment: A1c% ? Interpretation 5.7 - 6.0 ?Increase risk of diabetes 6.1 - 6.4 ?Higher risk of diabetes > or = 6.5 ?? Consistent with diabetes Diabetes Care, 33(Supp 1):S1-S61, 2010 Estimated Average Glucose 203 mg/dL 10/19/2024 12:02 PM [facility] Blood specimen / Unknown 10/19/2024 1:20 AM EST 10/19/2024 2:17 AM EST Pushpa Gallegos MD LAB BLOOD ORDERABLES Performing Organization Address [facility] [place] [address], [place] [address] * Phosphorus (Routine) (10/19/2024 1:20 AM EST) Phosphorus 4.2 2.7 - 4.5 mg/dL 10/19/2024 2:39 AM [facility] Blood (Plasma/Serum) 10/19/2024 1:20 AM EST 10/19/2024 2:17 AM EST Pushpa Gallegos MD LAB BLOOD ORDERABLES Performing Organization Address City/[facility]/[place] [address], [place] [address] * Magnesium (Routine) (10/19/2024 1:20 AM EST) Magnesium 1.7 1.6 - 2.7 mg/dL 10/19/2024 2:39 AM [facility] Blood (Plasma/Serum) 10/19/2024 1:20 AM EST 10/19/2024 2:17 AM EST Pushpa Gallegos MD LAB BLOOD ORDERABLES Performing Organization Address [facility] [place] [address], [place] [address] * (ABNORMAL) High Sensitivity Troponin T (Once) (10/19/2024 1:20 AM EST) [facility] High Sensitivity Troponin T 4,171(HH) <23 ng/L 10/19/2024 2:39 AM [facility] Comment:Recurring Critical R esult. Previously phoned. Delta (Change) 2,341(H) <3 10/19/2024 2:39 AM [facility] Comment:Increased Blood (Plasma/Serum) 10/19/2024 1:20 AM EST 10/19/2024 2:17 AM EST Pushpa Gallegos MD LAB BLOOD ORDERABLES Performing Organization Address [facility] [place] [address], [place] [address] * (ABNORMAL) Complete Blood Count, WITHOUT Differential (routine) (10/19/2024 1:20 AM EST) [facility] White Blood Cell Count 15.9(H) 4.0 - 11.0 Thou/uL 10/19/2024 2:31 AM [facility] Platelet Count 263 150 - 450 Thou/uL 10/19/2024 2:31 AM [facility] Hemoglobin 8.5(L) 13.0 - 17.7 g/dL 10/19/2024 2:31 AM [facility] Hematocrit 27.0(L) 39.0 - 54.0 % 10/19/2024 2:31 AM [facility] Red Blood Cell Count 2.78(L) 4.50 - 6.20 Mil/uL 10/19/2024 2:31 AM [facility] MCV 97 80 - 100 fL 10/19/2024 2:31 AM [facility] Comment:Significant change i n values noted, consider specimen integrity. If results are not expected, correlate clinically and re-collect sample if indicated. MCH 30.6 27.0 - 31.0 pg 10/19/2024 2:31 AM EST [facility] MCHC 31.5 30.0 - 36.0 g/dL 10/19/2024 2:31 AM EST [facility] RDW 16.2(H) 11.5 - 14.5 % 10/19/2024 2:31 AM EST [facility] MPV 11.5 7.5 - 12.5 fL 10/19/2024 2:31 AM EST [facility] Blood Blood specimen / Unknown 10/19/2024 1:20 AM EST 10/19/2024 2:17 AM EST Pushpa Gallegos MD [place] [address], [place] [address] * (ABNORMAL) POCT Glucose, Fingerstick (10/19/2024 12:16 AM EST) POC Glucose 106(H) 65 - 99 mg/dL 10/19/2024 12:17 AM EST Blood specimen / Unknown 10/19/2024 12:16 AM EST 10/19/2024 12:17 AM EST Fuad Winter MD POINT OF CARE TEST ORDERABLES HOSPITAL LAB See Below * ECG 12 lead (10/19/2024 12:02 AM EST) Systolic BP 128 mmHg EKG [facility] Diastolic BP 67 mmHg EKG [facility] Ventricular rate 86 BPM EKG [facility] Atrial rate 86 BPM EKG [facility] P-R interval 162 ms EKG [facility] QRS duration 78 ms EKG [facility] Q-T interval 372 ms EKG [facility] QTC calculation (Bazett) 445 ms EKG [facility] P axis 42 degrees EKG [facility] R axis 60 degrees EKG [facility] T axis 224 degrees EKG [facility] 10/19/2024 12:0 2 AM EST Narrative EKG [facility] - 10/19/2024 5:46 AM EST Normal sinus rhythm Early Transition Nonspecific ST and T wave abnormality Abnormal ECG Confirmed by MD Wade John ([id number]) on 10/19/2024 5:46:29 AM Procedure Note Raciel Wade MD - 10/19/2024 Normal sinus rhythm Early Transition Nonspecific ST and T wave abnormality Abnormal ECG Confirmed by MD Wade John ([id number]) on 10/19/2024 5:46:29 AM Fuad Winter MD ECG ORDERABLE S Performing Organization Address City/[facility]/ZIP Co de Phone Number [facility] * (ABNORMAL) POCT Glucose, Fingerstick (10/18/2024 11:22 PM EST) POC Glucose 117(H) 65 - 99 mg/dL 10/18/2024 11:23 PM EST Blood specimen / Unknown 10/18/2024 11:22 PM EST 10/18/2024 11:23 PM EST Fuad Winter MD POINT OF CARE TEST ORDERABLES Performing Organization Address City/[facility]/ZIP Co de Phone Number HOSPITAL LAB See Below * (ABNORMAL) BASIC METABOLIC PANEL (10/18/2024 11:11 PM EST) Glucose 103(H) 65 - 99 mg/dL 10/19/2024 12:51 AM [facility] Comment:Fasting: <100 mg/dL, Non-Fasting: <200 mg/dL (ADA 2005) Blood Urea Nitrogen (BUN) 88(H) 8 - 21 mg/dL 10/19/2024 12:51 AM [facility] Creatinine 5.0(H) 0.5 - 1.3 mg/dL 10/19/2024 12:51 AM [facility] eGFR 11(L) >59 10/19/2024 12:51 AM [facility] Comment:CKD-EPI (2020) in mL /min/1.73 sq meters. Sodium 143 136 - 145 mmol/L 10/19/2024 12:51 AM [facility] Potassium 4.4 3.4 - 5.3 mmol/L 10/19/2024 12:51 AM [facility] Chloride 110(H) 98 - 107 mmol/L 10/19/2024 12:51 AM [facility] CO2 13(L) 22 - 33 mmol/L 10/19/2024 12:51 AM [facility] Anion Gap 20(H) 7 - 17 10/19/2024 12:51 AM [facility] Calcium 7.0(L) 8.7 - 10.5 mg/dL 10/19/2024 12:51 AM [facility] BUN/Creatinine Ratio 18 10.0 - 25.0 Ratio 10/19/2024 12:51 AM [facility] Plasma/Serum 10/18/2024 11:1 1 PM EST 10/18/2024 11:48 PM EST Fuad Winter MD [place] [address], [place] [address] * (ABNORMAL) Blood Gas, Venous (10/18/2024 11:11 PM EST) Venous Blood PH 7.35 7.33 - 7.43 10/18/2024 11:50 PM [facility] Venous pCO2 27(L) 35 - 50 mmHG 10/18/2024 11:50 PM [facility] Venous pO2 185(H) 0 - 60 mmHG 10/18/2024 11:50 PM [facility] Venous Total CO2 15(L) 23 - 29 mmol/L 10/18/2024 11:50 PM [facility] Respiratory Info VM 50% 10/18/19 5:04 PM EST Base Deficiency 9.7 mmol/L 11:50 PM [facility] Comment:Reference Range: Neg ative 2 to Positive 3 Blood Blood specimen / Unknown 10/18/2024 11:11 PM EST 10/18/2024 11:45 PM EST Pushpa Gallegos MD [place] [address], [address] [address] * (ABNORMAL) BASIC METABOLIC PANEL (10/18/2024 10:15 PM EST) Glucose 113(H) 65 - 99 mg/dL 10/18/2024 10:59 PM [facility] Comment:Fasting: <100 mg/dL, Non-Fasting: <200 mg/dL (ADA 2004) Blood Urea Nitrogen (BUN) 91(H) 8 - 21 mg/dL 10/18/2024 10:59 PM [facility] Creatinine 5.2(H) 0.5 - 1.3 mg/dL 10/18/2024 10:59 PM [facility] eGFR 11(L) >59 10/18/2024 10:59 PM [facility] Comment:CKD-EPI (2020) in mL /min/1.73 sq meters. Sodium 145 136 - 145 mmol/L 10/18/2024 10:59 PM [facility] Potassium 4.2 3.4 - 5.3 mmol/L 10/18/2024 10:59 PM [facility] Chloride 111(H) 98 - 107 mmol/L 10/18/2024 10:59 PM [facility] CO2 14(L) 22 - 33 mmol/L 10/18/2024 10:59 PM [facility] Anion Gap 20(H) 7 - 17 10/18/2024 10:59 PM [facility] Calcium 7.3(L) 8.7 - 10.5 mg/dL 10/18/2024 10:59 PM [facility] BUN/Creatinine Ratio 18 10.0 - 25.0 Ratio 10/18/2024 10:59 PM [facility] Plasma/Serum 10/18/2024 10:1 5 PM EST 10/18/2024 10:21 PM EST Fuad Winter MD LAB BLOOD ORD ERABLES [address] [address], [place] [address] * Lactic Acid, Plasma (Routine) (10/18/2024 10:13 PM EST) Pathologist [facility] [place] Lactic Acid 1.2 0.5 - 1.9 mmol/L 10/18/2024 10:56 PM EST [facility] Blood Plasma specimen / Unknown 10/18/2024 10:13 PM EST 10/18/2024 10:21 PM EST Pushpa Gallegos MD [place] [address], [place] [address] * (ABNORMAL) POCT Glucose, Fingerstick (10/18/2024 10:06 [...] OF CARE TEST ORDERABLES Performing Organization Address [facility] Phone Number [facility] LAB See Below * (ABNORMAL) POCT Glucose, Fingerstick (10/18/2024 8:16 PM EST) POC Glucose 168(H) 65 - 99 mg/dL 10/18/2024 8:17 PM EST Blood specimen / Unknown 10/18/2024 8:16 PM EST 10/18/2024 8:17 PM EST Fuad Winter MD POINT OF CARE TEST ORDERABLES Performing Organization Address [facility] Co co Phone Number [facility] LAB See Below * (ABNORMAL) Blood Gas, Venous (10/18/2024 7:14 PM EST) Venous Blood PH 7.31(L) 7.33 - 7.43 10/18/2024 7:25 PM EST [facility] Venous pCO2 32(L) 35 - 50 mmHG 10/18/2024 7:25 PM EST [facility] Venous pO2 182(H) 0 - 60 mmHG 10/18/2024 7:25 PM EST [facility] Venous Total CO2 16(L) 23 - 29 mmol/L 10/18/2024 7:25 PM EST [facility] Respiratory Info VM 50% 10/18/19 5:04 PM EST Base Deficiency 9.7 mmol/L 7:25 PM [facility] Comment:Reference Range: Neg ative 2 to Positive 3 Blood Blood specimen / Unknown 10/18/2024 7:14 PM EST 10/18/2024 7:21 PM EST Pushpa Gallegos MD [place] [address], [place] [address] * (ABNORMAL) Basic Metabolic Panel (10/18/2024 7:14 PM EST) Glucose 154(H) 65 - 99 mg/dL 10/18/2024 7:55 PM [facility] Comment:Fasting: <100 mg/dL, Non-Fasting: <200 mg/dL (ADA 2004) Blood Urea Nitrogen (BUN) 87(H) 8 - 21 mg/dL 10/18/2024 7:55 PM [facility] Creatinine 5.1(H) 0.5 - 1.3 mg/dL 10/18/2024 7:55 PM [facility] eGFR 11(L) >59 10/18/2024 7:55 PM [facility] Comment:CKD-EPI (2020) in mL /min/1.73 sq meters. Sodium 144 136 - 145 mmol/L 10/18/2024 7:55 PM [facility] Potassium 4.7 3.4 - 5.3 mmol/L 10/18/2024 7:55 PM [facility] Chloride 110(H) 98 - 107 mmol/L 10/18/2024 7:55 PM [facility] CO2 14(L) 22 - 33 mmol/L 10/18/2024 7:55 PM [facility] Anion Gap 20(H) 7 - 17 10/18/2024 7:55 PM [facility] Calcium 7.0(L) 8.7 - 10.5 mg/dL 10/18/2024 7:55 PM [facility] BUN/Creatinine Ratio 17 10.0 - 25.0 Ratio 10/18/2024 7:55 PM [facility] Blood (Plasma/Serum) 10/18/2024 7:14 PM EST 10/18/2024 7:22 PM EST Fuad Winter MD LAB BLOOD ORD ERABLES [address] [address], [address] [address] * (ABNORMAL) POCT Glucose, Fingerstick (10/18/2024 7:13 PM EST) POC Glucose 166(H) 65 - 99 mg/dL 10/18/2024 7:15 PM EST Blood specimen / Unknown 10/18/2024 7:13 PM EST 10/18/2024 7:15 PM EST Fuad Winter MD POINT OF CARE TEST ORDERABLES Performing Organization Address [facility] Co de Phone Number HOSPITAL LAB See [...] Sample left with bedside RN. ACCESS: 6 Cypriot Badw-M-Fqultztn closed needle/catheter system ?? REQUESTING PRACTITIONER: Cheryl [...] record. A timeout procedure was performed. HISTORY: Nyemar Wilder is a 79 y.o. old male [...] adjacent organs or vascular structures. A 6 Cypriot Lyrz-N-Gwexqfkq closed needle/catheter system was utilized for access. [...] adjacent organs or vascular structures. A 6 Cypriot Qzip-K-Onkldidp closed needle/catheter system was utilized for access. 550 mL of clear devorah fluid was aspirated before drainage ceased. The catheter was removed and a sterile dressing applied. The patient tolerated the procedure well without evidence of complications. ?? Pushpa Gallegos MD [facility] ORDERABLES * (ABNORMAL) POCT Glucose, Fingerstick (10/18/2024 6:07 PM EST) POC Glucose 167(H) 65 - 99 mg/dL 10/18/2024 6:07 PM EST Blood specimen / Unknown 10/18/2024 6:07 PM EST 10/18/2024 6:08 PM EST Fuad Winter MD POINT OF CARE TEST ORDERABLES HOSPITAL LAB See Below * Fungal Culture, Other Than Blood (10/18/2024 5:55 PM EST) Culture No fungus isolated 11/02/2024 8:34 AM EST [facility] 10/18/2024 5:55 PM EST 10/18/2024 7:54 PM EST Fuad Winter MD MICROBIOLOGY - GENERAL ORDERABLES Performing Organization Address City/[facility]/ZIP Co de Phone Number [facility] [address] * Body Fluid Culture (aerobic, anaerobic and Gram stain) (10/18/2024 5:55 PM EST) Gram stain suggestive of Few neutrophils Mononuclear cells No organisms seen 10/18/2024 9:52 PM EST [facility] Culture No aerobes and anaerobes isolated after 7 days 10/25/2024 3:19 PM [facility] 10/18/2024 5:55 PM EST 10/18/2024 7:53 PM EST Fuad Winter MD MICROBIOLOGY - GENERAL ORDERABLES Performing Organization Address City/[facility] Co de Phone Number [facility] [address] [place] [address], [address] [address] * Protein, Body Fluid (10/18/2024 5:50 PM EST) Source RIGHT PLEURAL EFFUSION 10/18/2024 6:49 PM EST [facility] Protein, Body Fluid 2.2 g/dL 10/18/2024 7:15 PM [facility] Comment:The reference interv al(s) and other method performance specifications are unavailable for this body fluid. Comparison of this result with the concentration in the blood, serum, or plasma is recommended. 10/18/2024 5:50 PM EST 10/18/2024 6:49 PM EST Fuad Winter MD BODY FLUIDS A ND STOOLS ORDERABLES Performing Organization Address [facility] [address], [place] [address] * PH, BODY FLUID (10/18/2024 5:50 PM EST) Source RIGHT PLEURAL EFFUSION 10/18/2024 6:49 PM EST [facility] pH, Body Fluid 7.34 10/18/2024 7:14 PM EST [facility] 10/18/2024 5:50 PM EST 10/18/2024 6:49 PM EST Fuad Winter MD BODY FLUIDS A ND STOOLS ORDERABLES Performing Organization Address [facility] [place] [address], [place] [address] * Glucose, Body Fluid (10/18/2024 5:50 PM EST) Source RIGHT PLEURAL EFFUSION 10/18/2024 6:49 PM EST [facility] Glucose, Body Fluid 151 mg/dL 10/18/2024 7:15 PM EST [facility] Comment:The reference interv al(s) and other method performance specifications are unavailable for this body fluid. Comparison of this result with the concentration in the blood, serum, or plasma is recommended. 10/18/2024 5:50 PM EST 10/18/2024 6:49 PM EST Fuad Winter MD BODY FLUIDS A ND STOOLS ORDERABLES Performing Organization Address [facility] [place] [address], [place] [address] * Cell Count, Reflex Differential, Body Fluid (10/18/2024 5:50 PM EST) Appearance, Body Fluid Cloudy 10/18/2024 8:25 PM EST [facility] Color [place] 10/18/2024 8:25 PM [facility] Nucleated Cells, Fluid 435 /CUMM 10/18/2024 8:24 PM [facility] RBC, Fluid 11,000 /CUMM 10/18/2024 8:24 PM [facility] Neutrophil, Body Fluid 3 % 10/18/2024 8:25 PM [facility] Lymphoctye, Body Fluid 27 % 10/18/2024 8:25 PM [facility] Monocyte, Body Fluid 21 % 10/18/2024 8:25 PM [facility] Histiocyte, Body Fluid 46 % 10/18/2024 8:25 PM [facility] Mesothelial, Body Fluid 3 % 10/18/2024 8:25 PM [facility] Smear Comment, Body Fluid The reference interval and other method performance specifications are unavailable for this body fluid. Comparison of the result with concentration in the blood, serum, or plasma is recommended 10/18/2024 8:25 PM [facility] 10/18/2024 5:50 PM EST 10/18/2024 6:49 PM EST Fuad Winter MD BODY FLUIDS A ND STOOLS ORDERABLES Performing Organization Address City/State/[facility] [place] [address], [place] [address] * Culture - Pleural Fluid (aerobic, anaerobic and Gram stain) (10/18/2024 5:40 PM EST) Special Requests Limited quantity of fluid received, results may be impacted. 10/19/2024 9:03 AM [facility] Gram stain suggestive of Few neutrophils Mononuclear cells No organisms seen 10/18/2024 9:59 PM [facility] Culture No aerobes and anaerobes isolated after 7 days 10/25/2024 3:19 PM [facility] Microbiology Specimen from pleura obtained by thoracentesis / Unknown 10/18/2024 5:40 PM EST 10/18/2024 7:48 PM EST Pushpa Gallegos MD MICROBIOLOGY - GENER AL ORDERABLES [facility] [address] [place] [address], [place] [address] * Protein - Pleural Fluid (10/18/2024 5:39 PM EST) Source PLEURAL 10/18/2024 5:40 PM EST Protein, Body Fluid 2.2 g/dL 10/18/2024 7:27 PM EST [facility] Comment:The reference interv al(s) and other method performance specifications are unavailable for this body fluid. Comparison of this result with the concentration in the blood, serum, or plasma is recommended. Specimen from pleura obtained by thoracentesis / Unknown 10/18/2024 5:39 PM EST 10/18/2024 6:57 PM EST Pushpa Gallegos MD BODY FLUIDS AND STOO LS ORDERABLES Performing Organization Address [facility] [place] [address], [place] [address] * pH - Pleural Fluid (not avail at [facility]) (10/18/2024 5:39 PM EST) Source PLEURAL 10/18/2024 5:40 PM EST pH, Body Fluid 7.33 10/18/2024 7:15 PM EST [facility] Body Fluid Specimen from pleura obtained by thoracentesis / Unknown 10/18/2024 5:39 PM EST 10/18/2024 6:57 PM EST Pushpa Gallegos MD BODY FLUIDS AND STOO LS ORDERABLES Performing Organization Address [facility] [place] [address], [place] [address] * LDH - Pleural Fluid (10/18/2024 5:39 PM EST) Source PLEURAL 10/18/2024 5:40 PM EST Lactate Dehydrogenase, Body Fluid 143 U/L 10/18/2024 7:27 PM EST [facility] Comment:The reference interv al(s) and other method performance specifications are unavailable for this body fluid. Comparison of this result with the concentration in the blood, serum, or plasma is recommended. Body Fluid Specimen from pleura obtained by thoracentesis / Unknown 10/18/2024 5:39 PM EST 10/18/2024 6:57 PM EST Pushpa Gallegos MD BODY FLUIDS AND STOO LS ORDERABLES Performing Organization Address [facility] [place] [address], [place] [address] * Glucose - Pleural Fluid (10/18/2024 5:39 PM EST) Source PLEURAL 10/18/2024 5:40 PM EST Glucose, Body Fluid 146 mg/dL 10/18/2024 7:27 PM [facility] Comment:The reference interv al(s) and other method performance specifications are unavailable for this body fluid. Comparison of this result with the concentration in the blood, serum, or plasma is recommended. Specimen from pleura obtained by thoracentesis / Unknown 10/18/2024 5:39 PM EST 10/18/2024 6:57 PM EST Pushpa Gallegos MD BODY FLUIDS AND STOO LS ORDERABLES Performing Organization Address [facility] [place] [address], [place] [address] * Cell Count, Reflex Differential, Body Fluid (10/18/2024 5:39 PM EST) Appearance, Body Fluid Cloudy 10/18/2024 8:22 PM EST [facility] Color [place] 10/18/2024 8:22 PM [facility] Nucleated Cells, Fluid 721 /CUMM 10/18/2024 8:22 PM [facility] RBC, Fluid 10,000 /CUMM 10/18/2024 8:22 PM [facility] Neutrophil, Body Fluid 0 % 10/18/2024 8:22 PM EST [facility] Lymphoctye, Body Fluid 57 % 10/18/2024 8:22 PM [facility] Monocyte, Body Fluid 15 % 10/18/2024 8:22 PM [facility] Histiocyte, Body Fluid 27 % 10/18/2024 8:22 PM [facility] Basophil, Body Fluid 1 % 10/18/2024 8:22 PM [facility] Smear Comment, Body Fluid The reference interval and other method performance specifications are unavailable for this body fluid. Comparison of the result with concentration in the blood, serum, or plasma is recommended 10/18/2024 8:22 PM [facility] Specimen from pleura obtained by thoracentesis / Unknown 10/18/2024 5:39 PM EST 10/18/2024 6:57 PM EST Pushpa Gallegos MD BODY FL[place]IDS [place] [address], [place] [address] * (ABNORMAL) POCT Glucose, Fingerstick (10/18/2024 5:04 PM EST) POC Glucose 119(H) 65 - 99 mg/dL 10/18/2024 6:07 PM EST Blood specimen / Unknown 10/18/2024 5:04 PM EST 10/18/2024 6:07 PM EST Fuad Winter MD POINT OF CARE TEST ORDERABLES HOSPITAL LAB See Below * (ABNORMAL) B-Hydroxybutyrate (10/18/2024 5:04 PM EST) B-Hydroxybutyrate 0.45(H) <0.28 mmol/L 10/18/2024 6:44 PM [facility] Comment: In the presence of uncontrolled [...] LAB BLOOD ORD ERABLES Performing Organization Address [facility] [place] [address], [place] [address] * (ABNORMAL) Blood Gas, Venous (10/18/2024 5:04 PM EST) Venous Blood PH 7.32(L) 7.33 - 7.43 10/18/2024 5:27 PM [facility] Venous pCO2 31(L) 35 - 50 mmHG 10/18/2024 5:27 PM [facility] Venous pO2 131(H) 0 - 60 mmHG 10/18/2024 5:27 PM [facility] Venous Total CO2 17(L) 23 - 29 mmol/L 10/18/2024 5:27 PM [facility] Respiratory Info NASAL 6 L/MIN 10/18/2024 3:04 PM EST Base Deficiency 9.2 mmol/L 5:27 PM [facility] Comment:Reference Range: Neg ative 2 to Positive 3 Blood Blood specimen / Unknown 10/18/2024 5:04 PM EST 10/18/2024 5:13 PM EST Pushpa Gallegos MD LAB BLOOD ORDERABLES Performing Organization Address [facility]/[place] [address], [place] [address] * Heparin Assay (Anti Xa) (10/18/2024 5:04 PM EST) Anti Xa 0.23 IU/mL 10/18/2024 6:17 PM [facility] Comment: (NOTE) Heparin Thromboembolic/Standard/Full Dose Protocol: [...] MD LAB BLOOD ORDERABLES Performing Organization Address City/[facility]/[place] [address], [place] [address] * (ABNORMAL) Basic Metabolic Panel (10/18/2024 5:04 PM EST) Glucose 112(H) 65 - 99 mg/dL 10/18/2024 6:44 PM [facility] Comment:Fasting: <100 mg/dL, Non-Fasting: <200 mg/dL (ADA 2004) Blood Urea Nitrogen (BUN) 85(H) 8 - 21 mg/dL 10/18/2024 6:44 PM [facility] Creatinine 5.2(H) 0.5 - 1.3 mg/dL 10/18/2024 6:44 PM [facility] eGFR 11(L) >59 10/18/2024 6:44 PM [facility] Comment:CKD-EPI (2020) in mL /min/1.73 sq meters. Sodium 145 136 - 145 mmol/L 10/18/2024 6:44 PM [facility] Potassium 4.4 3.4 - 5.3 mmol/L 10/18/2024 6:44 PM [facility] Chloride 110(H) 98 - 107 mmol/L 10/18/2024 6:44 PM [facility] CO2 15(L) 22 - 33 mmol/L 10/18/2024 6:44 PM [facility] Anion Gap 20(H) 7 - 17 10/18/2024 6:44 PM [facility] Calcium 7.1(L) 8.7 - 10.5 mg/dL 10/18/2024 6:44 PM [facility] BUN/Creatinine Ratio 16 10.0 - 25.0 Ratio 10/18/2024 6:44 PM [facility] Blood (Plasma/Serum) 10/18/2024 5:04 PM EST 10/18/2024 6:04 PM EST Fuad Winter MD [place] [address], [facility] [address] [place] [address] * XR Chest 1 view-Portable (10/18/2024 4:14 PM EST) Anatomical Region Laterality Modality Chest Computed Radiogr aphy 10/18/2024 3:54 PM EST Impressions 10/19/2024 2:34 PM EST 1. ??Interval worsening of now moderate pulmonary edema. Superimposed infectious/inflammatory process cannot be entirely excluded. 2. ??Trace bilateral pleural effusions unchanged. Interpreted by: ??Mitchell Ascencio DO Label Printing Machinist I personally reviewed the images and the [...] effusions unchanged. Interpreted by: Mitchell Ascencio DO Label Printing Machinist I personally reviewed the images and the [...] OF CARE TEST ORDERABLES Performing Organization Address [facility] LAB See Below * (ABNORMAL) POCT Glucose, Fingerstick (10/18/2024 2:44 PM EST) POC Glucose 105(H) 65 - 99 mg/dL 10/18/2024 2:49 PM EST Blood specimen / Unknown 10/18/2024 2:44 PM EST 10/18/2024 2:48 PM EST Fuad Winter MD POINT OF CARE TEST ORDERABLES Performing Organization Address [facility] Number [facility] LAB See Below * POCT Glucose, Fingerstick (10/18/2024 1:44 PM EST) POC Glucose 92 65 - 99 mg/dL 10/18/2024 1:45 PM EST Blood specimen / Unknown 10/18/2024 1:44 PM EST 10/18/2024 1:45 PM EST Fuad Winter MD POINT OF CARE TEST ORDERABLES Performing Organization Address [facility] Number [facility] LAB See Below * (ABNORMAL) POCT Glucose, Fingerstick (10/18/2024 1:24 PM EST) POC Glucose 102(H) 65 - 99 mg/dL 10/18/2024 1:44 PM EST Blood specimen / Unknown 10/18/2024 1:24 PM EST 10/18/2024 1:44 PM EST Fuad Winter MD POINT OF CARE TEST ORDERABLES Performing Organization Address [facility]/ZIP Co de Phone Number HOSPITAL LAB [...] system. ?Dr. Pushpa Gallegos was notified by [place] text at 12:36 PM. Technical Details Definity [...] 65 - 99 mg/dL 10/18/2024 12:14 PM [facility] Comment:Fasting: <100 mg/dL, Non-Fasting: <200 mg/dL (ADA 2004) Blood Urea Nitrogen (BUN) 84(H) 8 - 21 mg/dL 10/18/2024 12:14 PM [facility] Creatinine 5.0(H) 0.5 - 1.3 mg/dL 10/18/2024 12:14 PM [facility] eGFR 11(L) >59 10/18/2024 12:14 PM [facility] Comment:CKD-EPI (2020) in mL /min/1.73 sq meters. Sodium 145 136 - 145 mmol/L 10/18/2024 12:14 PM [facility] Potassium 4.2 3.4 - 5.3 mmol/L 10/18/2024 12:14 PM [facility] Chloride 111(H) 98 - 107 mmol/L 10/18/2024 12:14 PM [facility] CO2 14(L) 22 - 33 mmol/L 10/18/2024 12:14 PM [facility] Anion Gap 20(H) 7 - 17 10/18/2024 12:14 PM [facility] Calcium 7.1(L) 8.7 - 10.5 mg/dL 10/18/2024 12:14 PM [facility] BUN/Creatinine Ratio 17 10.0 - 25.0 Ratio 10/18/2024 12:14 PM [facility] Blood (Plasma/Serum) 10/18/2024 11:25 AM EST 10/18/2024 11:49 AM EST Fuad Winter MD LAB BLOOD ORD ERABLES Performing Organization Address [facility] Number [facility] [address] [place] [address], [facility] [address] [place] [address] * (ABNORMAL) POCT Glucose, Fingerstick (10/18/2024 11:19 AM EST) POC Glucose 215(H) 65 - 99 mg/dL 10/18/2024 11:22 AM EST Blood specimen / Unknown 10/18/2024 11:19 AM EST 10/18/2024 11:22 AM EST Fuad Winter MD POINT OF CARE TEST ORDERABLES Performing Organization Address [facility] Phone Number [facility] LAB See Below * (ABNORMAL) POCT Glucose, Fingerstick (10/18/2024 10:16 AM EST) POC Glucose 289(H) 65 - 99 mg/dL 10/18/2024 10:17 AM EST Blood specimen / Unknown 10/18/2024 10:16 AM EST 10/18/2024 10:17 AM EST Fuad Winter MD POINT OF CARE TEST ORDERABLES Performing Organization Address [facility] Phone Number [facility] LAB See Below * Heparin Assay (Anti Xa) (10/18/2024 9:57 AM EST) Anti Xa 0.47 IU/mL 10/18/2024 10:37 AM EST [facility] Comment: (NOTE) Heparin Thromboembolic/Standard/Full Dose Protocol: [...] MD LAB BLOOD ORDERABLES Performing Organization Address [facility]/State/[facility] Co de Phone Number [facility] [address] [place] [address], [facility] [address] [place] [address] * (ABNORMAL) Basic Metabolic Panel (10/18/2024 9:57 AM EST) Glucose 304(H) 65 - 99 mg/dL 10/18/2024 10:35 AM [facility] Comment:Fasting: <100 mg/dL, Non-Fasting: <200 mg/dL (ADA 2004) Blood Urea Nitrogen (BUN) 87(H) 8 - 21 mg/dL 10/18/2024 10:35 AM [facility] Creatinine 5.0(H) 0.5 - 1.3 mg/dL 10/18/2024 10:35 AM [facility] eGFR 11(L) >59 10/18/2024 10:35 AM [facility] Comment:CKD-EPI (2020) in mL /min/1.73 sq meters. Sodium 142 136 - 145 mmol/L 10/18/2024 10:35 AM [facility] Potassium 4.3 3.4 - 5.3 mmol/L 10/18/2024 10:35 AM [facility] Chloride 108(H) 98 - 107 mmol/L 10/18/2024 10:35 AM [facility] CO2 13(L) 22 - 33 mmol/L 10/18/2024 10:35 AM [facility] Anion Gap 21(H) 7 - 17 10/18/2024 10:35 AM [facility] Calcium 7.2(L) 8.7 - 10.5 mg/dL 10/18/2024 10:35 AM [facility] BUN/Creatinine Ratio 17 10.0 - 25.0 Ratio 10/18/2024 10:35 AM [facility] Blood (Plasma/Serum) 10/18/2024 9:57 AM EST 10/18/2024 10:10 AM EST Fuad Winter MD [place] [address], [address] [address] * (ABNORMAL) POCT Glucose, Fingerstick (10/18/2024 9:39 AM EST) POC Glucose 324(H) 65 - 99 mg/dL 10/18/2024 9:40 AM EST Blood specimen / Unknown 10/18/2024 9:39 AM EST 10/18/2024 9:40 AM EST Fuad Winetr MD POINT OF CARE TEST ORDERABLES Performing Organization Address [facility] LAB See Below * (ABNORMAL) POCT Glucose, Fingerstick (10/18/2024 8:34 AM EST) POC Glucose 443(H) 65 - 99 mg/dL 10/18/2024 8:35 AM EST Blood specimen / Unknown 10/18/2024 8:34 AM EST 10/18/2024 8:35 AM EST Fuad Winter MD POINT OF CARE TEST ORDERABLES Performing Organization Address [facility] LAB See Below * (ABNORMAL) POCT Glucose, Fingerstick (10/18/2024 7:31 AM EST) POC Glucose 461(H) 65 - 99 mg/dL 10/18/2024 7:33 AM EST Blood specimen / Unknown 10/18/2024 7:31 AM EST 10/18/2024 7:33 AM EST Fuad Winter MD POINT OF CARE TEST ORDERABLES Performing Organization Address [facility] LAB See Below * (ABNORMAL) BASIC METABOLIC PANEL (10/18/2024 7:25 AM EST) Glucose 476(HH) 65 - 99 mg/dL 10/18/2024 8:03 AM [facility] Comment:Fasting: <100 mg/dL, Non-Fasting: <200 mg/dL (ADA 2005) Blood Urea Nitrogen (BUN) 84(H) 8 - 21 mg/dL 10/18/2024 8:03 AM [facility] Creatinine 5.0(H) 0.5 - 1.3 mg/dL 10/18/2024 8:03 AM [facility] eGFR 11(L) >59 10/18/2024 8:03 AM [facility] Comment:CKD-EPI (2020) in mL /min/1.73 sq meters. Sodium 139 136 - 145 mmol/L 10/18/2024 8:03 AM [facility] Potassium 4.5 3.4 - 5.3 mmol/L 10/18/2024 8:03 AM [facility] Chloride 106 98 - 107 mmol/L 10/18/2024 8:03 AM [facility] CO2 12(LL) 22 - 33 mmol/L 10/18/2024 8:03 AM [facility] Anion Gap 21(H) 7 - 17 10/18/2024 8:03 AM [facility] Calcium 6.6(LL) 8.7 - 10.5 mg/dL 10/18/2024 8:03 AM [facility] BUN/Creatinine Ratio 17 10.0 - 25.0 Ratio 10/18/2024 8:03 AM [facility] Plasma/Serum 10/18/2024 7:25 AM EST 10/18/2024 7:33 AM EST Fuad Winter MD [place] [address], [place] [address] * (ABNORMAL) Troponin T, High Sensitivity - STAT and in 1 hour (10/18/2024 7:25 AM EST) High Sensitivity Troponin T 2,403(HH) <23 ng/L 10/18/2024 8:03 AM [facility] Comment:Recurring Critical R esult. Previously phoned. Delta (Change) 573(H) <3 10/18/2024 8:03 AM [facility] Comment:Increased Blood (Plasma/Serum) 10/18/2024 7:25 AM EST 10/18/2024 7:33 AM EST Fuad Winter MD [place] [address], [address] [place] [address] * (ABNORMAL) POCT Glucose, Fingerstick (10/18/2024 6:28 [...] atelectasis, respectively. Interpreted by: ??Prem Coffman MD Label Printing Machinist I personally reviewed the images and the [...] atelectasis, respectively. Interpreted by: Prem Coffman MD Label Printing Machinist I personally reviewed the images and the resident's preliminary report and AGREE with the report as it is now presented ([id number]). Fuad Winter MD IMG DIAGNOSTI C IMAGING ORDERABLES * ECG 12 lead (10/18/2024 5:28 AM EST) Ventricular rate 89 BPM EKG [facility] QRS duration 88 ms EKG [facility] Q-T interval 366 [facility] (Bazett) 446 ms EKG [facility] R axis 36 degrees EKG [facility] T axis 184 degrees EKG [facility] 10/18/2024 5:28 AM EST Narrative G [facility] - 10/18/2024 9:43 AM EST Normal sinus rhythm ST & T wave abnormality, consider lateral ischemia Abnormal ECG No previous ECGs available Confirmed by MD Ortiz Daniel ([id number]) on 10/18/2024 9:42:59 AM Procedure Note Alonso Ortiz MD - 10/18/[address] & T wave abnormality, consider lateral ischemia Abnormal ECG No previous ECGs available Confirmed by MD Ortiz Daniel ([id number]) on 10/18/2024 9:42:59 AM Fuad Winter MD [facility] * (ABNORMAL) POCT Glucose, Fingerstick (10/18/2024 5:24 AM EST) [facility] POC Glucose >500(H) 65 - 99 mg/dL 10/18/2024 5:25 AM EST Blood specimen / Unknown 10/18/2024 5:24 AM EST 10/18/2024 5:25 AM EST Fuad Winter MD POINT OF CARE TEST ORDERABLES HOSPITAL LAB See Below * Heparin Assay (Anti-Xa) (10/18/2024 5:16 AM EST) [facility] Anti Xa 0.72 IU/mL 10/18/2024 5:58 AM EST [facility] Comment: (NOTE) Heparin Thromboembolic/Standard/Full Dose Protocol: [...] LAB BLOOD ORD ERABLES Performing Organization Address City/[facility]/[place] [address], [place] [address] * (ABNORMAL) Partial Thromboplastin Time (PTT) (10/18/2024 5:16 AM EST) Anticoagulant IV HEPARIN, UNFRACTIONATED 10/18/2024 5:18 AM EST Partial Thromboplastin Time (PTT) 68(H) 25 - 36 seconds 10/18/2024 5:58 AM EST [facility] Blood Plasma specimen / Unknown 10/18/2024 5:16 AM EST 10/18/2024 5:42 AM EST Fuad Winter MD LAB BLOOD ORD ERABLES Performing Organization Address [facility]/[place] [address], [place] [address] * (ABNORMAL) Protime-INR (10/18/2024 5:16 AM EST) Anticoagulant IV HEPARIN, UNFRACTIONATED 10/18/2024 5:18 AM EST Prothrombin Time (PT) 13.9(H) 10.0 - 13.5 seconds 10/18/2024 5:58 AM [facility] INR 1.2 10/18/2024 5:58 AM [facility] Comment:INR Therapeutic Rang es: Standard dose anticoagulant 2.0 to 3.0, High dose anticoagulant 2.5-3.5. Blood Plasma specimen / Unknown 10/18/2024 5:16 AM EST 10/18/2024 5:42 AM EST Fuad Winter MD LAB BLOOD ORD ERABLES Performing Organization Address City/[facility] [place] [address], [place] [address] * (ABNORMAL) proBNP, N-terminal (BNP) (10/18/2024 5:16 AM EST) proBNP, N-terminal >70,000(H) <450 pg/mL 10/18/2024 7:21 AM [facility] Blood Plasma specimen / Unknown 10/18/2024 5:16 AM EST 10/18/2024 5:42 AM EST Fuad Winter MD LAB BLOOD ORD ERABLES Performing Organization Address City/[facility] [place] [address], [place] [address] * (ABNORMAL) B-Hydroxybutyrate (10/18/2024 5:16 AM EST) B-Hydroxybutyrate 3.63(H) <0.28 mmol/L 10/18/2024 6:38 AM [facility] Comment: In the presence of uncontrolled [...] LAB BLOOD ORD ERABLES Performing Organization Address [facility] [place] [address], [place] [address] * (ABNORMAL) Osmolality (10/18/2024 5:16 AM EST) Osmolality, Serum/Plasma 359(H) 285 - 295 mOsm/Kg 10/18/2024 6:43 AM [facility] Blood (Plasma/Serum) 10/18/2024 5:16 AM EST 10/18/2024 5:42 AM EST Fuad Winter MD LAB BLOOD ORD ERABLES Performing Organization Address [facility] [place] [address], [place] [address] * (ABNORMAL) Blood Gas, Venous (10/18/2024 5:16 AM EST) Venous Blood PH 7.18(LL) 7.33 - 7.43 10/18/2024 5:55 AM [facility] Comment:Test results repeate d. Venous pCO2 27(L) 35 - 50 mmHG 10/18/2024 5:55 AM [facility] Venous pO2 78(H) 0 - 60 mmHG 10/18/2024 5:55 AM [facility] Venous Total CO2 11(L) 23 - 29 mmol/L 10/18/2024 5:55 AM [facility] Respiratory Info NASAL 5 L/MIN 10/18/2024 5:17 AM EST Base Deficiency 17.1 mmol/L 5:55 AM [facility] Comment:Reference Range: Neg ative 2 to Positive 3 Blood Blood specimen / Unknown 10/18/2024 5:16 AM EST 10/18/2024 5:40 AM EST Fuad Winter MD LAB BLOOD ORD ERABLES Performing Organization Address City/[facility]/ZIP Co de Phone Number [place] [address] [place] [address], [facility] [address] [place] [address] * (ABNORMAL) Complete Blood Count, with Differential (10/18/2024 5:16 AM [facility]) White Blood Cell Count 11.5(H) 4.0 - 11.0 Thou/uL 10/18/2024 5:48 AM [facility] Platelet Count 265 150 - 450 Thou/uL 10/18/2024 5:48 AM [facility] Hemoglobin 8.5(L) 13.0 - 17.7 g/dL 10/18/2024 5:48 AM [facility] Hematocrit 27.7(L) 39.0 - 54.0 % 10/18/2024 5:48 AM [facility] Red Blood Cell Count 2.72(L) 4.50 - 6.20 Mil/uL 10/18/2024 5:48 AM [facility] MCV 102(H) 80 - 100 fL 10/18/2024 5:48 AM [facility] MCH 31.3(H) 27.0 - 31.0 pg 10/18/2024 5:48 AM [facility] MCHC 30.7 30.0 - 36.0 g/dL 10/18/2024 5:48 AM [facility] RDW 16.4(H) 11.5 - 14.5 % 10/18/2024 5:48 AM [facility] MPV 11.3 7.5 - 12.5 fL 10/18/2024 5:48 AM [facility] Neutrophils Auto 86.0 % 10/18/19 5:48 AM [facility] Immature Granulocytes 0.4 % 10/18/2024 5:48 AM [facility] Lymphocytes Auto 9.2 % 10/18/19 5:48 AM [facility] Monocytes Auto 4.3 % 10/18/2024 5:48 AM [facility] Eosinophils Auto 0.0 % 10/18/19 5:48 AM [facility] Basophils Auto 0.1 % 10/18/2024 5:48 AM [facility] Abs Neutrophils Auto 9.88(H) 2.00 - 7.50 Thou/uL 10/18/2024 5:48 AM [facility] Abs Immature Granulocytes 0.05 0.00 - 0.10 Thou/uL 10/18/2024 5:48 AM [facility] Abs Lymphocytes Auto 1.06(L) 1.50 - 4.50 Thou/uL 10/18/2024 5:48 AM [facility] Abs Monocytes Auto 0.49 0.20 - 1.50 Thou/uL 10/18/2024 5:48 AM [facility] Abs Eosinophils Auto 0.00 0.00 - 0.70 Thou/uL 10/18/2024 5:48 AM [facility] Abs Basophils Auto 0.01 0.00 - 0.20 Thou/uL 10/18/2024 5:48 AM [facility] Blood Blood specimen / Unknown 10/18/2024 5:16 AM EST 10/18/2024 5:42 AM EST Fuad Winter MD [place] [address], [place] [address] * (ABNORMAL) Troponin T, High Sensitivity - STAT and in 1 hour (10/18/2024 5:16 AM EST) [facility] High Sensitivity Troponin T 1,830(HH) <23 ng/L 10/18/2024 6:38 AM [facility] Delta (Change) NO PREVIOUS RESULT <3 10/18/2024 6:38 AM [facility] Blood (Plasma/Serum) 10/18/2024 5:16 AM EST 10/18/2024 5:42 AM EST Fuad Winter MD [place] [address], [place] [address] * Magnesium (10/18/2024 5:16 AM EST) [facility] Magnesium 1.7 1.6 - 2.7 mg/dL 10/18/2024 6:38 AM [facility] Blood (Plasma/Serum) 10/18/2024 5:16 AM EST 10/18/2024 5:42 AM EST Fuad Winter MD LAB BLOOD ORD ERABLES [address] [address], [address] [address] * (ABNORMAL) Basic Metabolic Panel (10/18/2024 5:16 AM EST) Glucose 569(HH) 65 - 99 mg/dL 10/18/2024 6:38 AM [facility] Comment:Fasting: <100 mg/dL, Non-Fasting: <200 mg/dL (ADA 2004) Blood Urea Nitrogen (BUN) 83(H) 8 - 21 mg/dL 10/18/2024 6:38 AM [facility] Creatinine 4.9(H) 0.5 - 1.3 mg/dL 10/18/2024 6:38 AM [facility] eGFR 11(L) >59 10/18/2024 6:38 AM [facility] Comment:CKD-EPI (2020) in mL /min/1.73 sq meters. Sodium 140 136 - 145 mmol/L 10/18/2024 6:38 AM [facility] Potassium 4.9 3.4 - 5.3 mmol/L 10/18/2024 6:38 AM [facility] Chloride 104 98 - 107 mmol/L 10/18/2024 6:38 AM [facility] CO2 8(LL) 22 - 33 mmol/L 10/18/2024 6:38 AM [facility] Anion Gap 28(H) 7 - 17 10/18/2024 6:38 AM [facility] Calcium 6.6(LL) 8.7 - 10.5 mg/dL 10/18/2024 6:38 AM [facility] BUN/Creatinine Ratio 17 10.0 - 25.0 Ratio 10/18/2024 6:38 AM [facility] Blood (Plasma/Serum) 10/18/2024 5:16 AM EST 10/18/2024 5:42 AM EST Fuad Winter MD LAB BLOOD ORD ERABLES [facility] [address] [place] [address], [facility] [address] [place] [address] documented in this encounter Visit Diagnoses Not [...] is held. 1313 (Given - Provider: Tena Meza, KENDALL) insulin glargine (LANtus/SEMGLEE) 100 units/mL [...] - Comment: [phone] (Given - Provider: Tena Meaz RN) insulin lispro (HumaLOG/ADMELOG) 100 units/mL injection [...] = 50 units/mL, Indication for Anticoagulation: Acute OR 0739 (Handoff - Provider: Torie Kwan RN [...] documented as of this encounter Care Teams Miner Relationship Specialty Start Date End Date Diaz Akers MD PCP - General Internal Medicine 10/20/24 documented as of this encounter
--- OUTSIDE RECORDS SUMMARY | 2024-11-08 18:02 | XMS_ITS | Clinical Summary ---
Author Organization [facility] Address [address] [place] [address] Care Team Providers Care Oracle Consultant Name Role Phone Diaz Akers MD Primary [...] EST - 10/31/2024 6:26 PM EST Surgery [facility] Heart & Vascular [place] at [facility] - Cardiac Catheterization Laboratory [address] [place] [address] Calixto Ureña MD CORONARY ANGIO W/LV 10/19/2024 Scanned Document CARDIOLOGY IP [address] [facility] [place] [address] JordanSejal rodriguez Tonia 10/18/2024 5:10 AM EST - 11/01/2024 4:42 PM EST Hospital Encounter NORTH 10 [address] [facility] [place] [address] Fuad Winter MD Perkins, MD El [...] Tobacco: Never Tobacco Cessation:Counseling Given: Not Answered [facility] Utilities Answer Date Recorded In the past 12 months has e [employer], gas, oil, or water [facility] threatened to shut off services in your [...] any time in the past 12 m [facility], were you homeless or living in a detention (including now)? No 10/20/2024 Sex and Gender [...] resultswithin the time period is included. Pathologist [facility] POC Glucose 189(H) 65 - 99 mg/dL [...] 4.0 - 11.0 Thou/uL 11/01/2024 7:10 AM [facility] Platelet Count 261 150 - 450 Thou/uL 11/01/2024 7:10 AM [facility] Hemoglobin 9.2(L) 13.0 - 17.7 g/dL 11/01/2024 7:10 AM [facility] Hematocrit 29.7(L) 39.0 - 54.0 % 11/01/2024 7:10 AM [facility] Red Blood Cell Count 3.00(L) 4.50 - 6.20 Mil/uL 11/01/2024 7:10 AM [facility] MCV 99 80 - 100 fL 11/01/2024 7:10 AM [facility] MCH 30.7 27.0 - 31.0 pg 11/01/2024 7:10 AM [facility] MCHC 31.0 30.0 - 36.0 g/dL 11/01/2024 7:10 AM [facility] RDW 16.2(H) 11.5 - 14.5 % 11/01/2024 7:10 AM [facility] MPV 11.4 7.5 - 12.5 fL 11/01/2024 7:10 AM [facility] Blood Blood specimen / Unknown 11/01/2024 6:20 AM EST 11/01/2024 6:57 AM EST Jonna Donis PA-C [place] [address], [place] [address] * (ABNORMAL) Phosphorus (Early AM) (11/01/2024 6:20 AM EST) Only the most recent of15 resultswithin the time period is included. Phosphorus 4.7(H) 2.7 - 4.5 mg/dL 11/01/2024 7:58 AM [facility] Blood (Plasma/Serum) 11/01/2024 6:20 AM EST 11/01/2024 6:57 AM EST Jonna L Valley PA-C LAB BLOOD ORDERABL ES Performing Organization Address [facility] [place] [address], [place] [address] * MAGNESIUM (11/01/2024 6:20 AM EST) Only the most recent of17 resultswithin the time period is included. Magnesium 1.6 1.6 - 2.7 mg/dL 11/01/2024 7:58 AM [facility] Blood (Plasma/Serum) 11/01/2024 6:20 AM EST 11/01/2024 6:57 AM EST Jonna Giraldo [employer] PA-C LAB BLOOD ORDERABL ES Performing Organization Address [facility] [place] [address], [place] [address] * (ABNORMAL) BASIC METABOLIC PANEL (11/01/2024 6:20 AM EST) Only the most recent of29 resultswithin the time period is included. Glucose 92 65 - 99 mg/dL 11/01/2024 7:58 AM [facility] Comment:Fasting: <100 mg/dL, Non-Fasting: <200 mg/dL (ADA 2005) Blood Urea Nitrogen (BUN) 41(H) 8 - 21 mg/dL 11/01/2024 7:58 AM [facility] Creatinine 4.5(H) 0.5 - 1.3 mg/dL 11/01/2024 7:58 AM [facility] eGFR 13(L) >59 11/01/2024 7:58 AM [facility] Comment:CKD-EPI (2020) in mL /min/1.73 sq meters. Sodium 140 136 - 145 mmol/L 11/01/2024 7:58 AM [facility] Potassium 4.8 3.4 - 5.3 mmol/L 11/01/2024 7:58 AM [facility] Chloride 104 98 - 107 mmol/L 11/01/2024 7:58 AM [facility] CO2 22 22 - 33 mmol/L 11/01/2024 7:58 AM EST [facility] Anion Gap 14 7 - 17 11/01/2024 7:58 AM [facility] Calcium 9.3 8.7 - 10.5 mg/dL 11/01/2024 7:58 AM EST [facility] BUN/Creatinine Ratio 9(L) 10.0 - 25.0 Ratio 11/01/2024 7:58 AM EST [facility] Blood (Plasma/Serum) 11/01/2024 6:20 AM EST 11/01/2024 6:57 AM EST Jonna Donis PA-C [place] [address], [place] [address] * CC CORONARY ANGIO W/LV (10/31/2024 6:34 PM EST) Anatomical Region Laterality Modality Radiographic Keily ging Narrative 10/31/2024 6:57 PM EST Table formatting from the original result was not included. Images from the original result were not included. [facility] Heart & Vascular [place] [facility] - Cardiac Catheterization Laboratory PATIENT DEMOGRAPHIC INFORMATION Name: Jorge Wilder : 1945 79 y.o. Sex: male Gender: male Procedure Date: 10/31/2024 PROCEDURE DETAILS Design Inserter: Calixto Ureña MD Fellow: None Blow Mold Technician(s): none Indications for Procedure: ACS, drop in EF Referring Physician: Jorge Mcfarland Referring Director [employer]: PCP: Diaz Akers MD Procedure(s): Procedures: ??* [...] medical Struve coronary artery disease status post OK in February 2024, heart failure with reduced [...] that I request from a [facility] PA/AUTOMATIC BLOCKER/fellow/staff member. Calixto Ureña MD [facility] Heart & Vascular [place] 10/31/2024 ??6:57 PM Coronary Findings Diagnostic Dominance: [...] Xa 0.36 IU/mL 10/31/2024 4:07 PM EST [facility] Comment: (NOTE) Heparin Thromboembolic/Standard/Full Dose [...] MD LAB BLOOD ORDERABLES Performing Organization Address [facility] [place] [address], [place] [address] * (ABNORMAL) High Sensitivity Troponin T (10/31/2024 7:16 AM EST) Only the most recent of12 resultswithin the time period is included. High Sensitivity Troponin T 396(HH) <23 ng/L 10/31/2024 9:15 AM EST [facility] Delta (Change) NO PREVIOUS RESULT <3 10/31/2024 9:15 AM EST [facility] Plasma/Serum 10/31/2024 7:16 AM EST 10/31/2024 7:47 AM EST Madhav Ryan MD LAB BLOOD ORDERABLES Performing Organization Address [facility] [place] [address], [place] [address] * TSH, HIGHLY SENSITIVE (10/31/2024 7:16 AM EST) TSH, Highly Sensitive 2.06 0.27 - 4.20 mIU/L 10/31/2024 9:15 AM EST [facility] Plasma/Serum 10/31/2024 7:16 AM EST 10/31/2024 7:47 AM EST Madhav Ryan MD LAB BLOOD ORDERABLES Performing Organization Address [facility] Co de Phone Number [place] [id number], [place] [address] * (ABNORMAL) proBNP, N-terminal (10/29/2024 7:20 AM EST) Only the most recent of2 resultswithin the time period is included. proBNP, N-terminal 47,866(H) <450 pg/mL 10/29/2024 12:12 PM EST [facility] Plasma specimen / Unknown 10/29/2024 7:20 AM EST 10/29/2024 8:04 AM EST Madhav Ryan MD [place] [address], [place] [address] * ECG 12 lead (STAT) (10/27/2024 7:41 AM EST) Only the most recent of6 resultswithin the time period is included. Ventricular rate 60 BPM EKG [facility] Atrial rate 60 BPM EKG [facility] P-R interval 150 ms EKG [facility] QRS duration 84 ms EKG [facility] Q-T interval 488 ms EKG [facility] QTC calculation (Bazett) 488 ms EKG [facility] P axis 45 degrees EKG [facility] R axis 13 degrees EKG [facility] T axis 199 degrees EKG [facility] 10/27/2024 7:41 AM EST Narrative EKG [facility] - 10/27/2024 6:03 PM EST Normal [...] in Anterior leads Confirmed by MD Ashish, [facility] ([id number]) on 10/27/2024 6:03:18 PM Madhav Ryan MD ECG ORDERABLES EKG [facility] * XR Chest 1 view-Portable (STAT) [...] 24 - 204 U/L 10/25/2024 10:25 AM [facility] Plasma/Serum 10/25/2024 8:27 AM EST 10/25/2024 9:16 AM EST Jorge Mcfarland MD LAB BLOOD ORDERAB LES Performing Organization Address [facility] [place] [address], [address] [address] * (ABNORMAL) B-Hydroxybutyrate (10/24/2024 7:11 AM EST) Only the most recent of4 resultswithin the time period is included. B-Hydroxybutyrate 2.36(H) <0.28 mmol/L 10/24/2024 10:30 AM [facility] Comment: In the presence of [...] MD LAB BLOOD ORDERABLES Performing Organization Address [facility] [place] [address], [address] [address] * (ABNORMAL) PTH, Intact (10/23/2024 10:31 AM EST) PTH, Intact 579(H) 15 - 65 pg/mL 10/23/2024 12:23 PM [facility] Blood (Plasma/Serum) 10/23/2024 10:31 AM EST 10/23/2024 11:36 AM EST Jorge Mcfarland MD LAB BLOOD ORDERAB LES Performing Organization Address [facility] [place] [address], [place] [address] * (ABNORMAL) Calcium, Ionized (10/23/2024 10:31 AM EST) Calcium, Ionized 0.88(L) 1.17 - 1.33 mmol/L 10/23/2024 12:16 PM EST [facility] Blood Blood specimen / Unknown 10/23/2024 10:31 AM EST 10/23/2024 11:36 AM EST Jorge Mcfarland MD LAB BLOOD ORDERAB LES Performing Organization Address [facility] [place] [address], [place] [address] * (ABNORMAL) Calcium, Total (10/23/2024 10:31 AM EST) Calcium 7.4(L) 8.7 - 10.5 mg/dL 10/23/2024 12:13 PM EST [facility] Blood (Plasma/Serum) 10/23/2024 10:31 AM EST 10/23/2024 11:36 AM EST Jorge Mcfarland MD LAB BLOOD ORDERAB LES Performing Organization Address City/[facility] [place] [address], [place] [address] * Albumin (10/23/2024 10:31 AM EST) Albumin 3.5 3.4 - 4.8 g/dL 10/23/2024 12:13 PM EST [facility] Blood (Plasma/Serum) 10/23/2024 10:31 AM EST 10/23/2024 11:36 AM EST Jorge Mcfarland MD LAB BLOOD ORDERAB LES Performing Organization Address City/[facility]/ZIP Co de Phone Number [facility] [address] [place] [address], [facility] [address] [place] [address] * (ABNORMAL) LIPID PANEL (10/23/2024 6:05 AM EST) Cholesterol, Total 110 <200 mg/dL 2024 8:30 AM [facility] Triglycerides 141 <150 mg/dL 10/23/2024 8:30 AM [facility] Cholesterol, HDL 30(L) >39 mg/dL 10/23/19 8:30 AM [facility] Estimated LDL 52 <130 mg/dL 10/23/2024 8:30 AM [facility] Comment: NCEP Guidelines: ?< 100 mg/dL ??Optimal 100 - 129 mg/dL ??Near Optimal/Above Optimal 130 - 159 mg/dL ??Borderline High 160 - 189 mg/dL ??High ??>/= 190 mg/dL ??Very High Cholesterol/HDL Ratio 3.7 0.0 - 5.0 Ratio 10/23/2024 8:30 AM [facility] Comment: Relative Risk ? Ratio - Male ? Ratio - Female ?0.5 ?3.4 ?3.3 ?1.0 ?5.0 ?4.4 ?2.0 ?9.6 ?7.1 ?3.0 ? 23.4 ? 11.0 Plasma/Serum 10/23/2024 6:05 AM EST 10/23/2024 7:46 AM EST Adilia Woo MD [place] [address], [place] [address] * (ABNORMAL) Blood Gas, Venous (10/20/2024 10:39 AM EST) Only the most recent of7 resultswithin the time period is included. Venous Blood PH 7.29(L) 7.33 - 7.43 10/20/2024 10:54 AM EST [facility] Venous pCO2 39 35 - 50 mmHG 10/20/2024 10:54 AM [facility] Venous pO2 49 0 - 60 mmHG 10/20/2024 10:54 AM [facility] Venous Total CO2 20(L) 23 - 29 mmol/L 10/20/2024 10:54 AM [facility] Respiratory Info NASAL 4 L/MIN 10/20/2024 10:39 AM EST Base Deficiency 7.2 mmol/L 10:54 AM [facility] Comment:Reference Range: Neg ative 2 to Positive 3 Blood Blood specimen / Unknown 10/20/2024 10:39 AM EST 10/20/2024 10:47 AM EST Kristopher Hickey MD LAB BLOOD ORDERAB LES Performing Organization Address [facility] [place] [address], [place] [address] * Lactic Acid, Plasma (STAT) (10/20/2024 10:00 AM EST) Only the most recent of2 resultswithin the time period is included. Lactic Acid 0.8 0.5 - 1.9 mmol/L 10/20/2024 10:37 AM EST [facility] Blood Plasma specimen / Unknown 10/20/2024 10:00 AM EST 10/20/2024 10:07 AM EST Kristopher Hickey MD LAB BLOOD ORDERAB LES Performing Organization Address City/[facility] [place] [address], [facility] [address] [place] [address] * (ABNORMAL) Complete Blood Count, with Differential (10/19/2024 11:59 PM EST) Only the most recent of2 resultswithin the time period is included. White Blood Cell Count 11.5(H) 4.0 - 11.0 Thou/uL 10/20/2024 12:32 AM [facility] Platelet Count 271 150 - 450 Thou/uL 10/20/2024 12:32 AM [facility] Hemoglobin 8.9(L) 13.0 - 17.7 g/dL 10/20/2024 12:32 [facility] Hematocrit 28.6(L) 39.0 - 54.0 % 10/20/2024 12:32 AM [facility] Red Blood Cell Count 2.93(L) 4.50 - 6.20 Mil/uL 10/20/2024 12:32 [facility] MCV 98 80 - 100 fL 10/20/2024 12:32 AM [facility] MCH 30.4 27.0 - 31.0 pg 10/20/2024 12:32 AM [facility] MCHC 31.1 30.0 - 36.0 g/dL 10/20/2024 12:32 AM [facility] RDW 16.5(H) 11.5 - 14.5 % 10/20/2024 12:32 [facility] MPV 11.3 7.5 - 12.5 fL 10/20/2024 12:32 AM [facility] Neutrophils Auto 80.7 % 10/20/19 25 12:32 AM [facility] Immature Granulocytes 0.6 % 10/20/2024 12:32 [facility] Lymphocytes Auto 11.6 % 10/20/19 12:32 [facility] Monocytes Auto 6.7 % 10/20/2024 12:32 [facility] Eosinophils Auto 0.2 % 10/20/19 12:32 [facility] Basophils Auto 0.2 % 10/20/2024 12:32 [facility] Abs Neutrophils Auto 9.25(H) 2.00 - 7.50 Thou/uL 10/20/2024 12:32 AM [facility] Abs Immature Granulocytes 0.07 0.00 - 0.10 Thou/uL 10/20/2024 12:32 AM [facility] Abs Lymphocytes Auto 1.33(L) 1.50 - 4.50 Thou/uL 10/20/2024 12:32 AM [facility] Abs Monocytes Auto 0.77 0.20 - 1.50 Thou/uL 10/20/2024 12:32 AM [facility] Abs Eosinophils Auto 0.02 0.00 - 0.70 Thou/uL 10/20/2024 12:32 AM [facility] Abs Basophils Auto 0.02 0.00 - 0.20 Thou/uL 10/20/2024 12:32 AM [facility] Blood Blood specimen / Unknown 10/19/2024 11:59 PM EST 10/20/2024 12:25 AM EST Fuad Winter MD LAB BLOOD ORD ERABLES Performing Organization Address City/[facility]/[place] [address], [place] [address] * (ABNORMAL) Hemoglobin and Hematocrit (10/19/2024 2:25 PM EST) [facility] Hematocrit 32.3(L) 39.0 - 54.0 % 10/19/2024 3:39 PM [facility] Hemoglobin 9.9(L) 13.0 - 17.7 g/dL 10/19/2024 3:39 PM [facility] Blood Blood specimen / Unknown 10/19/2024 2:25 PM EST 10/19/2024 3:31 PM EST Kristopher Hickey MD [place] [address], [place] [address] * (ABNORMAL) Hemoglobin A1C with Estimated Average Glucose (10/19/2024 1:20 AM EST) [facility] Hemoglobin A1C 8.7(H) <5.7 % 10/19/2024 12:02 PM EST [facility] Comment: A1c% ? Interpretation 5.7 - 6.0 ?Increase risk of diabetes 6.1 - 6.4 ?Higher risk of diabetes > or = 6.5 ?? Consistent with diabetes Diabetes Care, 33(Supp 1):S1-S61, 2009 Estimated Average Glucose 203 mg/dL 10/19/2024 12:02 PM EST [facility] Blood specimen / Unknown 10/19/2024 1:20 AM EST 10/19/2024 2:17 AM EST Pushpa Gallegos MD LAB BLOOD ORDERABLES Performing Organization Address City/State/[facility] [place] [address], [place] [address] * US Guided Bedside Thoracentesis-Bilateral (10/18/2024 6:10 [...] Sample left with bedside RN. ACCESS: 6 [place] Tfjd-Z-Bahzcjix closed needle/catheter system ?? REQUESTING PRACTITIONER: Cheryl [...] adjacent organs or vascular structures. A 6 [place] Scym-P-Jyncyexw closed needle/catheter system was utilized for access. [...] adjacent organs or vascular structures. A 6 [place] Ulgk-Y-Fohzhntz closed needle/catheter system was utilized for access. 550 mL of clear devorah fluid was aspirated before drainage ceased. The catheter was removed and a sterile dressing applied. The patient tolerated the procedure well without evidence of complications. ?? Pushpa Gallegos MD [facility] ORDERABLES * Body Fluid Culture (aerobic, anaerobic and Gram stain) (10/18/2024 5:55 PM EST) Only the most recent of2 resultswithin the time period is included. Gram stain suggestive of Few neutrophils Mononuclear cells No organisms seen 10/18/2024 9:52 PM [facility] Culture No aerobes and anaerobes isolated after 7 days 10/25/2024 3:19 PM EST [facility] 10/18/2024 5:55 PM EST 10/18/2024 7:53 PM EST Fuad Winter MD MICROBIOLOGY - GENERAL ORDERABLES [facility] [address] [place] [address], [facility] [address] [place] [address] * Fungal Culture, Other Than Blood (10/18/2024 5:55 PM EST) Culture No fungus isolated 11/02/2024 8:34 AM EST [facility] 10/18/2024 5:55 PM EST 10/18/2024 7:54 PM EST Fuad Winter MD MICROBIOLOGY - GENERAL ORDERABLES Performing Organization Address City/[facility]/ZIP Co de Phone Number [facility] [address] [place] [address], * Cell Count, Reflex Differential, Body Fluid (10/18/2024 5:50 PM EST) Only the most recent of2 resultswithin the time period is included. Appearance, Body Fluid Cloudy 10/18/2024 8:25 PM EST [facility] Color [place] 10/18/2024 8:25 PM [facility] Nucleated Cells, Fluid 435 /CUMM 10/18/2024 8:24 PM [facility] RBC, Fluid 11,000 /CUMM 10/18/2024 8:24 PM [facility] Neutrophil, Body Fluid 3 % 10/18/2024 8:25 PM [facility] Lymphoctye, Body Fluid 27 % 10/18/2024 8:25 PM [facility] Monocyte, Body Fluid 21 % 10/18/2024 8:25 PM [facility] Histiocyte, Body Fluid 46 % 10/18/2024 8:25 PM [facility] Mesothelial, Body Fluid 3 % 10/18/2024 8:25 PM [facility] Smear Comment, Body Fluid The reference interval and other method performance specifications are unavailable for this body fluid. Comparison of the result with concentration in the blood, serum, or plasma is recommended 10/18/2024 8:25 PM EST [facility] 10/18/2024 5:50 PM EST 10/18/2024 6:49 PM EST Fuad Winter MD BODY FLUIDS A ND STOOLS ORDERABLES Performing Organization Address [facility] de Phone Number [address] [address], [place] [address] * Protein, Body Fluid (10/18/2024 5:50 PM EST) Only the most recent of2 resultswithin the time period is included. Source RIGHT PLEURAL EFFUSION 10/18/2024 6:49 PM EST [facility] Protein, Body Fluid 2.2 g/dL 10/18/2024 7:15 PM [facility] Comment:The reference interv al(s) and other method performance specifications are unavailable for this body fluid. Comparison of this result with the concentration in the blood, serum, or plasma is recommended. 10/18/2024 5:50 PM EST 10/18/2024 6:49 PM EST Fuad Winter MD BODY FLUIDS A ND STOOLS ORDERABLES Performing Organization Address [facility] Co de Phone Number [address] [address], [place] [address] * Glucose, Body Fluid (10/18/2024 5:50 PM EST) Only the most recent of2 resultswithin the time period is included. Source RIGHT PLEURAL EFFUSION 10/18/2024 6:49 PM EST [facility] Glucose, Body Fluid 151 mg/dL 10/18/2024 7:15 PM EST [facility] Comment:The reference interv al(s) and other method performance specifications are unavailable for this body fluid. Comparison of this result with the concentration in the blood, serum, or plasma is recommended. 10/18/2024 5:50 PM EST 10/18/2024 6:49 PM EST Fuad Winter MD BODY FLUIDS A ND STOOLS ORDERABLES Performing Organization Address [facility] [place] [address], [place] [address] * PH, BODY FLUID (10/18/2024 5:50 PM EST) Only the most recent of2 resultswithin the time period is included. Source RIGHT PLEURAL EFFUSION 10/18/2024 6:49 PM EST [facility] pH, Body Fluid 7.34 10/18/2024 7:14 PM EST [facility] 10/18/2024 5:50 PM EST 10/18/2024 6:49 PM EST Fuad Winter MD BODY FLUIDS A ND STOOLS ORDERABLES Performing Organization Address [facility] [place] [address], [place] [address] * LDH - Pleural Fluid (10/18/2024 5:39 PM EST) Source PLEURAL 10/18/2024 5:40 PM EST Lactate Dehydrogenase, Body Fluid 143 U/L 10/18/2024 7:27 PM EST [facility] Comment:The reference interv al(s) and other method performance specifications are unavailable for this body fluid. Comparison of this result with the concentration in the blood, serum, or plasma is recommended. Body Fluid Specimen from pleura obtained by thoracentesis / Unknown 10/18/2024 5:39 PM EST 10/18/2024 6:57 PM EST Pushpa Gallegos MD BODY FLUIDS AND STOO LS ORDERABLES Performing Organization Address [facility] [place] [address], [place] [address] * ECHOCARDIOGRAM COMPREHENSIVE WITH CONTRAST (10/18/2024 12:14 [...] system. ?Dr. Pushpa Gallegos was notified by [place] text at 12:36 PM. Technical Details Definity [...] - 36 seconds 10/18/2024 5:58 AM EST [facility] Blood Plasma specimen / Unknown 10/18/2024 5:16 AM EST 10/18/2024 5:42 AM EST Fuad Winter MD LAB BLOOD ORD ERABLES Performing Organization Address [facility] [place] [address], [place] [address] * (ABNORMAL) Protime-INR (10/18/2024 5:16 AM EST) Anticoagulant IV HEPARIN, UNFRACTIONATED 10/18/2024 5:18 AM EST Prothrombin Time (PT) 13.9(H) 10.0 - 13.5 seconds 10/18/2024 5:58 AM EST [facility] INR 1.2 10/18/2024 5:58 AM EST [facility] Comment:INR Therapeutic Rang es: Standard dose anticoagulant 2.0 to 3.0, High dose anticoagulant 2.5-3.5. Blood Plasma specimen / Unknown 10/18/2024 5:16 AM EST 10/18/2024 5:42 AM EST Fuad Winter MD LAB BLOOD ORD ERABLES Performing Organization Address [facility] [place] [address], [place] [address] * (ABNORMAL) Osmolality (10/18/2024 5:16 AM EST) Osmolality, Serum/Plasma 359(H) 285 - 295 mOsm/Kg 10/18/2024 6:43 AM EST [facility] Blood (Plasma/Serum) 10/18/2024 5:16 AM EST 10/18/2024 5:42 AM EST Fuad Winter MD LAB BLOOD ORD ERABLES Performing Organization Address City/[facility]/[place] [address], [address] [place] [address] from Last 3 Months Advance Directives * Full Code (Latest Code Status on File) Date Activated Date Inactivated Comments 10/18/2024 7:04 AM Care Teams Oracle Consultant Relationship Specialty Start Date End Date Diaz Akers MD PCP - General Internal Medicine 10/20/24
--- OUTSIDE RECORDS SUMMARY | 2024-11-08 18:02 | XMS_ITS | Clinical Summary ---
Author Organization [facility] Address [address] [facility] [address] [place] [address] Phone Care Team Providers Care Manager Bakery Name Role Phone Unavailable Primary Care Provider [...] Frequency Start Date End Date Status Epoetin Kelley-epbx solution 10,000 UnitsIndications:Anemia of chronic renal failure,Chronic kidney disease stage 4 (HCC) 83270 Units IJ Every 21 days 07/09/2021 Active epoetin kelley (EPOGEN,PROCRIT) injection 20,000 UnitsIndications:Anemia due to Renal Failure 66565 Units IV Every 14 days 08/16/2022 Active epoetin kelley (EPOGEN,PROCRIT) injection 10,000 UnitsIndications:Anemia due to Renal Failure 01660 Units IV Every 14 days 08/30/2022 Active epoetin kelley (EPOGEN,PROCRIT) injection 10,000 UnitsIndications:Anemia due to Renal Failure 09532 Units IV Every 14 days 09/27/2022 Active Epoetin Kelley-epbx solution 30,000 UnitsIndications:Anemia in chronic kidney disease,Chronic kidney disease stage 4 (HCC) 96619 Units IJ Once 12/13/2022 Ac tive Epoetin Kelley-epbx solution 20,000 UnitsIndications:Anemia in chronic kidney disease,Chronic kidney disease stage 4 (HCC) 81957 Units IJ Once 12/27/2022 Ac tive Active [...] * Hemoglobin A1c (11/13/2018 8:00 AM EST) [facility] Hemoglobin A1C 7.4 % COLBY Comment: [...] average glucose, using the formula of the [id number] Average Glucose study (ADAG), Diabetes Care, Vol.31,#8, May. 2007 11/13/2018 8:00 AM EST us Kev Esteves MD LAB BLOOD ORDERABLES Final Result [place] from Last 3 Months or Most Recently Relevant to Health Maintenance Insurance [place] [address] [place] [address]
--- OUTSIDE RECORDS SUMMARY | 2024-11-08 18:02 | XMS_ITS | Encounter Summary ---
Author Organization [facility] Address [address] [place] [address] Phone Care Team Providers Care Tax Record Clerk Name Role Phone Unavailable Primary Care Provider Unavailabl e Encounter Details Date Type Department Care Team (Late st Contact Info) Description 08/16/2023 Office Communication [facility] [address] [facility] [address] [place] [address] Kang Britt MD [id number] [facility] [address] [place] [address] Social History Tobacco Use Types [...]
--- OUTSIDE RECORDS SUMMARY | 2024-11-08 18:02 | XMS_ITS | Encounter Summary ---
Author Organization [facility] Address [address] [place] [address] Care Team Providers Care Window And Door Installer Name Role Phone Unavailable Primary Care Provider [...]
--- OUTSIDE RECORDS SUMMARY | 2024-11-08 18:02 | XMS_ITS | Encounter Summary ---
Author Organization [facility] Address [address] [place] [address] Care Team Providers Care Rice Milling Supervisor Name Role Phone Diaz Akers MD Primary Care Provider Soledad vailable Reason for Visit * Reason Comments Abnormal Test Result * Auth/Cert Specialty Diagnoses / Procedures Referred By Danielle t Referred To Contact Diagnoses DKA (diabetic ketoacidosis) ([facility]) NSTEMI, DKA, Pneumonia Procedures OTHER ADMINISTRATIVE ADJUSTMENT (INSURANCE) Referral ID Status Reason Start Date Expiration Date Visits Re quested Visits Authorized [id number] 1 1 Encounter Details Date Type Department Care Team (Late st Contact Info) Description 10/18/2024 5:10 AM EST - 11/01/2024 4:42 PM [facility] Hospital Encounter [address] [id number] Fuad Winter MD [address] [place] [address] Branden oByd MD [address] [address] Pushpa Gallegos MD [address] [address] Kristopher Hickey MD [address] [place] [address] Irma Tilley MD [address] [phone] Jessica Strange MD [address] [place] [phone] Adilia Woo MD [address] [place] [phone] Magdaleno Crowder MD [address] [place] [address] Neymar Mcfarland MD [address] [place] [address] Madhav Ryan MD [address] [place] [phone] Thomas Medrano MD [address] [place] [phone] Osmar Valdez MD [address] [place] [id number] NSTEMI (non-ST elevated myocardial infarction) (HCC) (Primary Dx); Diabetic ketoacidosis without coma associated with type 2 diabetes mellitus (HCC) Discharge Disposition: Home with Health Care Services Social History Tobacco Use Types Packs/Day Years Used Date Smoking Tobacco: Never Passive Smoke Exposure: Never Smokeless Tobacco: Never Tobacco Cessation:Counseling Given: Not Answered [facility] Utilities Answer Date Recorded In the past 12 months has [employer], gas, oil, or water [employer] threatened to shut off services in your [...] any time in the past 12 m [facility], were you homeless or living in a custodial (including now)? 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 Endocrine service provided recommendations for insulin and he was switched from Januvia to Tradjenta at the time of discharge. Consults: Consults placed: Procedures Inpatient consult to cardiology ([facility] Cardiology) Inpatient consult to cardiology ([facility] Cardiology) Inpatient consult to Endocrinology Inpatient consult to Nutrition Services Procedures: Surgical/Procedural Cases on this Admission Case IDs Date Procedure Surgeon Location Status [id number] 10/31/24 CORONARY ANGIO W/LV Calixto Ureña MD FOUNDRY MOLDER Comp Diagnostic Studies: XR Chest 1 view-Portable [...] effusions unchanged. Interpreted by: Mitchell Ascencio DO Diesel Engine Pipe Fitter I personally reviewed the images and the [...] Sample left with bedside RN. ACCESS: 6 Uzbek Yvsf-J-Bdzsywlr closed needle/catheter system REQUESTING PRACTITIONER: Cheryl Blue [...] adjacent organs or vascular structures. A 6 Uzbek Favw-B-Cnakgkoa closed needle/catheter system was utilized for access. [...] adjacent organs or vascular structures. A 6 Uzbek Slqr-P-Ufjprdrg closed needle/catheter system was utilized for access. [...] system. Dr. Pushpa Gallegos was notified by [place] text at 12:36 PM. XR Chest 1 [...] atelectasis, respectively. Interpreted by: Prem Coffman MD Diesel Engine Pipe Fitter I personally reviewed the images and the [...] system. Dr. Pushpa Gallegos was notified by [employer] at 12:36 PM. Results from last 7 [...] through Care Everywhere. * Angiogram Care After (Hong Konger) documented in this encounter Medications at Time [...] 11/01/2024 9:27 AM EST Endocrinology Progress Note MONORAIL CHARGER OPERATOR Endocrinology - Medicine Today's Date: 11/01/2024 [...] are interchangable*)- order B-D Debby 4 mm [place] (15 mL). Humalog KwikPen (U100) (the following are interchangable) - order B-D Debby 4 mm [place] (15 mL). 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 Time spent communicating with other health care provider including the RN Signed Day Casarez Endocrinology [...] level of independence with functional mobility. Current [facility] Basic Mobility Score: 23 Rehab Plan of [...] Progressive Mobility Progressive Mobility Level Achieved Ambulation [facility] Basic Mobility Turning from your back to [...] Climbing 3-5 steps with a railing? 3 [facility] Basic Mobility Score 23 Therapy Assessment/Plan (PT) [...] d/t HTN + DM (neph Dr in [place]), admit as xfer fromOSH with dyspnea (COVID+) [...] Calcitriol daily. Needs to continue follow-up with contract project manager on d/c. Sign: Garth Perez DO 11/01/2024 12:58 PM * Ysabel Jones PA-C - 11/01/2024 7:25 AM EST Images from the original note were not included. 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 He was initially admitted to the MICU on insulin drip. Troponin found to be elevated 2752-2592, EKG noted to be sinus with poor R wave progression and nonspecific ST changes. He was initiated on a heparin drip for NSTEMI. Course further complicated by acute HFrEF LVEF 28%, COVID, and ALISA on CKD. [facility] with moderate proximal and mid LAD calcified focal stenosis, severe stenosis of nondominant RCA, recommended for medical management. Plan [facility] 10/31: moderate proximal and mid [...] agreement with plan of care as above. [facility] Cardiology will continue to follow. Subjective [...] 10/31/2024 8:26 PM EST Pt transported to [facility] on monitor. 0 KENDALL Richardson [...] 4:29 PM EST Certified Diabetes Care & Management Trainer Note: Patient meets criteria for evaluation due [...] he is still here on Tuesday this [facility] can give him a reader with a [...] from diet unless treating low BG. Given [facility] Diabetes Tool Kit, Thriving with diabetes. Sections of importance in the booklet highlighted and reviewed with pt. 3. Survival Skills Needed & Taught: Insulin Pen Reinforcement: Pt. was able to verbally explain to this [facility] how he would place and prime needle, [...] [phone] Signed: Abbey RODNEY, RN, [facility] 10/31/24 8PM * Garth Perez DO - 10/31/2024 9:51 AM EST Date 10/31/2024 Assessment & Plan 79y/o male PMHx DM, HTN, CKD V (bCR~5 from 05/2023) d/t HTN + DM ([place] in [place]), admit as xfer fromOSH with dyspnea (COVID+) [...] from the original note were not included. 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 He was initially admitted to the MICU on insulin drip. Troponin found to be elevated 6538-8984, EKG noted to be sinus with poor R wave progression and nonspecific ST changes. He was initiated on a heparin drip forNSTEMI. Course further complicated by acute HFrEF LVEF 28%, COVID, and ALISA on CKD. Awaiting [facility] today. Plan NSTEMI NSVT HTN [...] agreement with plan of care as above. [facility] Cardiology will continue to follow. Subjective [...] Medrano MD - 10/30/2024 9:43 AM EST [facility] Medicine Progress note Assessment & Plan [...] d/t HTN + DM ([place]), admit as xfer fromOSH with dyspnea (COVID+) [...] from the original note were not included. [facility] Cardiology Transfer Service Progress Note Chief [...] today - Strict I&Os, daily weights Primary Buyer Intern: [facility] Cardiology will continue to follow. Case discussed with [facility] attending Dr. Valentino Subjective Pt reports [...] d/t HTN + DM ([place]), admit as xfer fromOSH with dyspnea (COVID+) [...] hyperparathyroidism - continue calcitriol 0.5 mcg daily [facility] timing - TBD Subjective HPI Continues with O2 oxy mask overnight-weaned to NC this AM Heparin drip ongoing No dyspnea symptoms He remains patient despite multiple days of delay for [facility] Review of Systems Respiratory: negative [...] Diet Diabetic/ Calorie Controlled; Carb Counting 60g/meal 3847-1735 kcal History Diabetes History Pre-Admission Regimen: Lantus [...] in the patient record Speaking with a informatics consultant Reviewing Labs & Radiology Signed Lucinda Whyte Endocrinology - Medicine 10/29/2024 8:33 AM * Macy Macias PA-C - 10/29/2024 7:45 AM EST Images from the original note were not included. [facility] Cardiology Transfer Service Progress Note Chief [...] today - Strict I&Os, daily weights Primary Buyer Intern: [facility] Cardiology will continue to follow. Case discussed with [facility] attending Dr. Contreras Subjective Pt reports that he feels well Patient denies chest pain, shortness of breath, dizziness, lightheadedness, nausea, vomiting, palpitations Objective Telemetry Reviewed: NSR 78 Last Vitals Pulse:61,Resp:18,BP:(!) 144/65,SpO2:95 %,Weight:65.2 kg (143 lb 11.8 oz) Temp Last 24 hrs: Temp Min: 96.7 ??F (35.9 ??C) Max: 98.2 ??F (36.8 ??C) Intake/Output Summary (Last 24 hours) at 10/29/2024 0776 Last data filed at 10/29/2024 0633 Gross [...] d/t HTN + DM ([place]), admit as xfer fromOSH with dyspnea (COVID+) [...] 10/28/2024 9:31 AM EST Endocrinology Progress Note MONORAIL CHARGER OPERATOR Endocrinology - Medicine Today's Date: 10/28/2024 [...] Diet Diabetic/ Calorie Controlled; Carb Counting 60g/meal 2713-9340 kcal Steroids: None Infusions: heparin (porcine) IV [...] 75 mg daily - Continue telemetry -- equipment operator/laborer most likely be on Monday 10/30, please [...] various nights and back to diet pending Multi Site Leasing Consultant for several days with concern that he [...] Subjective Overnight: Patient did not go to Multi Site Leasing Consultant yesterday, stable overnight no acute events Today: Patient seen and examined at this morning. He is on supplemental oxygen. He states he is feeling well and awaits Multi Site Leasing Consultant. I communicated that the cath is again [...] Patient remains on heparin drip pending cardiac clay processing labourer. Patient requires intermittent doses of IV Lasix for pulmonary edema and work of breathing. Kavya Burgess MD. PGY-2 Internal Medicine [place] Text Preferred Associated attestation - Madhav Ryan [...] (POA: Unknown) Resolved Problems: Assessment & Plan Neymra Wilder is a 79 y.o. male with [...] 75 mg daily - Continue telemetry -- equipment operator/laborer most likely be on Monday 10/30, please [...] patient has been n.p.o. at midnight pending Multi Site Leasing Consultant for several days resuming a diet in [...] Subjective Overnight: Patient did not go to Multi Site Leasing Consultant yesterday, stable overnight no acute events Today: Patient seen and examined at this morning. He is on supplemental oxygen. He states he is feeling well and awaits Multi Site Leasing Consultant. I communicated that the cath is again [...] gap. 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 Patient requires intermittent doses of IV Lasix for pulmonary edema and work of breathing. Donavon Rodgers MD PGY-1 Internal Medicine [place] Text Preferred Associated attestation - Madhav Ryan [...] d/t HTN + DM ([place]), admit as xfer fromOSH with dyspnea (COVID+) [...] 10/27/2024 9:07 AM EST Endocrinology Progress Note MONORAIL CHARGER OPERATOR Endocrinology - Medicine Today's Date: 10/27/2024 [...] Diet Diabetic/ Calorie Controlled; Carb Counting 60g/meal 3229-1118 kcal Steroids: none Infusions: dextrose, 25 mL/hr, [...] private room post cath High risk for GAME FARM HELPER remains unchanged Recommend avoiding albuterol transition to [...] 2/3 @ 2:30 Dr. Mario Alberto Alvarez [facility] cardiology will continue to follow. Case discussed with attending, Dr. Contreras Plan was communicated to primary team /and the [place] 3 team IMPROVE SCORE: . Stepdown / ICU / CCU Stay: 1-->Stepdown / ICU / CCU stay Age > 60 yrs: 1--> Age > 60 years IMPROVE SCORE: 2 DVT PPX: Heparin drip CODE STATUS:full code HCP/Decision maker: Patient Telemetry:Yes This note was prepared using voice recognition software and direct typing. Please excuse inadvertent digital marketing manager or typing errors, or uncorrected word substitutions. [...] system. Dr. Pushpa Gallegos was notified by [place] text at 12:36 PM. Imaging Studies XR [...] effusions unchanged. Interpreted by: Mitchell Ascencio DO Diesel Engine Pipe Fitter I personally reviewed the images and the [...] Sample left with bedside RN. ACCESS: 6 Uzbek Okcb-U-Bzwaxfnq closed needle/catheter system REQUESTING PRACTITIONER: Cheryl Blue [...] traversingadjacent organs or vascular structures. A 6 Uzbek Ncnk-K-Dgldvrfc closed needle/catheter system was utilized for access. [...] adjacent organs or vascular structures. A 6 Uzbek Ilas-X-Ksgvpvnm closed needle/catheter system was utilized for access. [...] system. Dr. Pushpa Gallegos was notified by [place] text at 12:36 PM. XR Chest 1 [...] atelectasis, respectively. Interpreted by: Prem Coffman MD Diesel Engine Pipe Fitter I personally reviewed the images and the [...] remain n.p.o. at midnight for hopefully for [facility] and [facility] spoke with nephrology Dr. Perez who is in agreement to have the patient proceed with cath in a.m. given no availability today Continue heparin gtt per ACS protocol Continue ASA 81 mg daily Continue atorvastatin 80 mg daily Continue Toprol-XL 75 mg p.o. daily Continuous telemetry monitoring Patient will need a private room post cath High risk for GAME FARM HELPER remains unchanged ALISA on CKD Creatinine peak [...] 2/3 @ 2:30 Dr. Mario Alberto Alvarez [facility] cardiology will continue to follow. Case discussed with attending, Dr. Contreras Plan was communicated to primary team dr Neymar Mcfarland /and the [place] 3 team IMPROVE SCORE: Stepdown / ICU / CCU Stay: 1-->Stepdown / ICU / CCU stay Age > 60 yrs: 1--> Age > 60 years IMPROVE SCORE: 2 DVT PPX: SC Heparin CODE STATUS:full code HCP/Decision maker: Patient Telemetry:Yes This note was prepared using voice recognition software and direct typing. Please excuse inadvertent digital marketing manager or typing errors, or uncorrected word substitutions. [...] system. Dr. Pushpa Gallegos was notified by [place] text at 12:36 PM. Imaging Studies XR [...] effusions unchanged. Interpreted by: Mitchell Ascencio DO Diesel Engine Pipe Fitter I personally reviewed the images and the [...] Sample left with bedside RN. ACCESS: 6 Uzbek Cjke-E-Hlxbndwj closed needle/catheter system REQUESTING PRACTITIONER: Cheryl Blue [...] traversingadjacent organs or vascular structures. A 6 Uzbek Bcbn-O-Udxqzrmp closed needle/catheter system was utilized for access. [...] adjacent organs or vascular structures. A 6 Uzbek Xqzi-A-Gjumkvba closed needle/catheter system was utilized for access. [...] system. Dr. Pushpa Gallegos was notified by [place] text at 12:36 PM. XR Chest 1 [...] atelectasis, respectively. Interpreted by: Prem Coffman MD Diesel Engine Pipe Fitter I personally reviewed the images and the [...] Lateral leads Confirmed by DO Ladd Kyla ([id number]) on 10/25/2024 8:09:06 PM Medications Medications Scheduled [...] level of independence with functional mobility. Current [facility] Basic Mobility Score: 20 Rehab Plan of [...] Level Achieved Ambulation Ambulation Distance (Feet) 15 [facility] Basic Mobility Turning from your back to [...] Climbing 3-5 steps with a railing? 3 [facility] Basic Mobility Score 20 Therapy Assessment/Plan (PT) [...] d/t HTN + DM ([place]), admit as xfer fromOSH with dyspnea (COVID+) [...] hypocalcemia and secondary hyperparathyroidism. His risk of GAME FARM HELPER remains unchanged Subjective HPI Vipul remains with [...] 10/26/2024 9:39 AM EST Endocrinology Progress Note MONORAIL CHARGER OPERATOR Endocrinology - Medicine Today's Date: 10/26/2024 [...] team patient will be going to the Multi Site Leasing Consultant. Currently n.p.o. Addendum: Notified by team, cath [...] patient has been n.p.o. at midnight pending Multi Site Leasing Consultant for several days resuming a diet in [...] Subjective Overnight: Patient did not go to Multi Site Leasing Consultant yesterday, stable overnight no acute events Today: Patient seen and examined at this morning. He is on supplemental oxygen. He states he is feeling well and awaits Multi Site Leasing Consultant. Patient continues to be very positive and [...] gap. 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 Patient requires intermittent doses of IV Lasix for pulmonary edema and work of breathing. Donavon Rodgers MD PGY-1 Internal Medicine [place] Text Preferred Associated attestation - Neymar Mcfarland [...] 2/3 @ 2:30 Dr. Mario Alberto Alvarez [facility] cardiology will continue to follow. Case discussed with attending, Dr. Contreras Plan was communicated to primary team dr Neymar Mcfarland /and the [place] 3 team IMPROVE SCORE: Stepdown / ICU / CCU Stay: 1-->Stepdown / ICU / CCU stay Age > 60 yrs: 1--> Age > 60 years IMPROVE SCORE: 2 DVT PPX: Heparin drip CODE STATUS:full code HCP/Decision maker: Patient Telemetry:Yes This note was prepared using voice recognition software and direct typing. Please excuse inadvertent digital marketing manager or typing errors, or uncorrected word substitutions. [...] system. Dr. Pushpa Gallegos was notified by [place] text at 12:36 PM. Imaging Studies XR [...] effusions unchanged. Interpreted by: Mitchell Ascencio DO Diesel Engine Pipe Fitter I personally reviewed the images and the [...] Sample left with bedside RN. ACCESS: 6 Uzbek Aucd-D-Ibctzgrq closed needle/catheter system REQUESTING PRACTITIONER: Cheryl Blue [...] traversingadjacent organs or vascular structures. A 6 Uzbek Jtua-Z-Ukxziocu closed needle/catheter system was utilized for access. [...] adjacent organs or vascular structures. A 6 Uzbek Mrhc-Y-Ppycogwt closed needle/catheter system was utilized for access. [...] system. Dr. Pushpa Gallegos was notified by [place] text at 12:36 PM. XR Chest 1 [...] atelectasis, respectively. Interpreted by: Prem Coffman MD Diesel Engine Pipe Fitter I personally reviewed the images and the [...] and diabetic kidney disease (he follows with contract project manager in [place]), who presented intially to OSH with URI [...] with falling creatinine still greater than 25% mason tender restoration labor providers are well aware of this condition [...] long time and has follow-up with a contract project manager in [place]. He feels very confident about his function [...] patient has been n.p.o. at midnight pending Multi Site Leasing Consultant for several days resuming a diet in [...] Subjective Overnight: Patient did not go to Multi Site Leasing Consultant yesterday, stable overnight no acute events Today: Patient seen and examined at this morning. He is on supplemental oxygen. He states he is feeling well and awaits Multi Site Leasing Consultant. Patient has been very patient and awaits Multi Site Leasing Consultant Objective Last Vitals Pulse:77,Resp:16,BP:(!) 145/70,SpO2:(!) 91 %,Weight:65.9 [...] reviewed and Image reviewed Hospital Course Neymar Widler is a 79 y.o. male with PMHx [...] gap. 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 Patient requires intermittent doses of IV Lasix for pulmonary edema and work of breathing. Donavon Rodgers MD PGY-1 Internal Medicine [place] Text Preferred Associated attestation - Neymar Mcfarland [...] 10/18/2024 5:10 AM Assessment & Plan Neymar Hrenándezozziekirk is a 79 y.o. male with T2DM, [...] fluid overload patient has not gone to Multi Site Leasing Consultant yet We will keep fingersticks every 4 [...] (Order- Specific), Last Rate: 15 Units/kg/hr (10/24/24 4558) Discharge Planning: Depending on disposition, was on [...] [facility] and LHC spoke with nephrology Dr. eKnt who is in agreement to have the [...] arrange for cardiology follow-up prior to discharge [facility] cardiology will continue to follow. Case discussed with attending, Dr. Contreras Plan was communicated to primary team dr Neymar Mcfarland /and the [place] 3 team IMPROVE SCORE Stepdown / ICU / CCU Stay: 1-->Stepdown / ICU / CCU stay Age > 60 yrs: 1--> Age > 60 years IMPROVE SCORE: 2 DVT PPX: Heparin drip CODE STATUS:full code HCP/Decision maker: Patient Telemetry:Yes This note was prepared using voice recognition software and direct typing. Please excuse inadvertent digital marketing manager or typing errors, or uncorrected word substitutions. [...] system. Dr. Pushpa Gallegos was notified by [place] text at 12:36 PM. Imaging Studies XR [...] effusions unchanged. Interpreted by: Mitchell Ascencio DO Diesel Engine Pipe Fitter I personally reviewed the images and the [...] Sample left with bedside RN. ACCESS: 6 Uzbek Btzq-O-Gasdtaxb closed needle/catheter system REQUESTING PRACTITIONER: Cheryl Blue [...] traversingadjacent organs or vascular structures. A 6 Uzbek Kxnk-D-Pukvxhhk closed needle/catheter system was utilized for access. [...] adjacent organs or vascular structures. A 6 Uzbek Kted-F-Ilprcagq closed needle/catheter system was utilized for access. [...] system. Dr. Pushpa Gallegos was notified by [place] text at 12:36 PM. XR Chest 1 [...] atelectasis, respectively. Interpreted by: Prem Coffman MD Diesel Engine Pipe Fitter I personally reviewed the images and the [...] the patient will be taken to the Multi Site Leasing Consultant and will remain n.p.o. until the procedure is over. The patient had increasing oxygen requirements overnight and repeat chest x-ray showed pulmonary edema. We discussed these findings with the Multi Site Leasing Consultant as they would like to give gentle [...] insulin. The patient has been n.p.o. pending Multi Site Leasing Consultant and there is concern that he may [...] gap. 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 Donavon Rodgers MD PGY-1 Internal Medicine [place] Text Preferred Associated attestation - Neymar Mcfarland [...] and diabetic kidney disease (he follows with contract project manager in [place]), who presented intially to OSH with URI [...] with slight improvement to 4.3 Plan for clay processing labourer now pushed a day or two Lázaro Score slightly improving with falling creatinine mason tender restoration labor providers are well aware of this condition [...] long time and has follow-up with a contract project manager in [place]. He feels very confident about his function [...] found for: TACROLIMUS No results found for: [id number] , TOTVOL , CRCLR , PERIOD No [...] 10/21 2104 Sincerely, Marty Kent MD, OSCAR Hoe Runner Chronic Kidney Disease [facility] Attending Cartridge Filler, Partner, [facility] Continuous Medication Ordered Dose/Rate, [...] arrange for cardiology follow-up prior to discharge [facility] cardiology will continue to follow. Case discussed with attending, Dr. Contreras Plan was communicated to primary team dr Neymar Mcfarland /and the [place] 3 team IMPROVE SCORE: Stepdown / ICU / CCU Stay: 1-->Stepdown / ICU / CCU stay Age > 60 yrs: 1--> Age > 60 years IMPROVE SCORE: 2 DVT PPX: Heparin drip CODE STATUS:full code HCP/Decision maker: Patient Telemetry:Yes This note was prepared using voice recognition software and direct typing. Please excuse inadvertent digital marketing manager or typing errors, or uncorrected word substitutions. [...] system. Dr. Pushpa Gallegos was notified by [place] text at 12:36 PM. Imaging Studies XR [...] effusions unchanged. Interpreted by: Mitchell Ascencio DO Diesel Engine Pipe Fitter I personally reviewed the images and the [...] Sample left with bedside RN. ACCESS: 6 Uzbek Ahsk-B-Nokhwins closed needle/catheter system REQUESTING PRACTITIONER: Cheryl Blue [...] traversingadjacent organs or vascular structures. A 6 Uzbek Xegz-A-Srshzbmw closed needle/catheter system was utilized for access. [...] adjacent organs or vascular structures. A 6 Uzbek Xocn-O-Kupmfjxt closed needle/catheter system was utilized for access. [...] system. Dr. Pushpa Gallegos was notified by [place] text at 12:36 PM. XR Chest 1 [...] atelectasis, respectively. Interpreted by: Prem Coffman MD Diesel Engine Pipe Fitter I personally reviewed the images and the [...] QT has lengthened Confirmed by MD Alex, [facility] ([id number]) on 10/22/2024 7:57:16 AM Medications [...] gap. 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 Donavon Rodgers MD PGY-1 Internal Medicine [place] Text Preferred Associated attestation - Neymar Mcfarland [...] (he follows with Dr Henrik Bird in [place]), who presented intially to OSH with URI [...] with slight improvement to 4.3 Plan for clay processing labourer today. Lázaro Score with 100cc of contrast: [...] long time and has follow-up with a contract project manager in [place]. He feels very confident about his function [...] found for: TACROLIMUS No results found for: [id number] , TOTVOL , CRCLR , PERIOD No [...] 10/21 2105 Sincerely, Marty Kent MD, OSCAR Hoe Runner Chronic Kidney Disease [facility] Attending Cartridge Filler, Partner, [facility] Physicians Continuous Medication Ordered Dose/Rate, Route, Frequency [...] arrange for cardiology follow-up prior to discharge [facility] cardiology will continue to follow. Case [...] software and direct typing. Please excuse inadvertent digital marketing manager or typing errors, or uncorrected word substitutions. [...] system. Dr. Pushpa Gallegos was notified by [place] text at 12:36 PM. Imaging Studies XR [...] effusions unchanged. Interpreted by: Mitchell Ascencio DO Diesel Engine Pipe Fitter I personally reviewed the images and the [...] Sample left with bedside RN. ACCESS: 6 Uzbek Ptuz-K-Lmxoddwn closed needle/catheter system REQUESTING PRACTITIONER: Cheryl Blue [...] traversingadjacent organs or vascular structures. A 6 Uzbek Aeue-E-Eprkpqgm closed needle/catheter system was utilized for access. [...] adjacent organs or vascular structures. A 6 Uzbek Soja-V-Xjajhyik closed needle/catheter system was utilized for access. [...] system. Dr. Pushpa Gallegos was notified by [place] text at 12:36 PM. XR Chest 1 [...] atelectasis, respectively. Interpreted by: Prem Coffman MD Diesel Engine Pipe Fitter I personally reviewed the images and the [...] QT has lengthened Confirmed by MD Alex, [facility] (42) on 10/22/2024 7:57:16 AM Medications Medications [...] 10/21/24 0803 10/21/24 0309 10/20/24 0215 10/19/24 4649 SODIUM mmol/L -- 145 -- -- 140 [...] telemetry -- Cardiology will bring patient for clay processing labourer tomorrow for RHC and LHC, NPO at [...] gap. 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 Donavon Rodgers MD PGY-1 Internal Medicine [place] Text Preferred Associated attestation - Neymar Mcfarland [...] Diet Diabetic/ Calorie Controlled; Carb Counting 60g/meal 9069-6308 kcal Steroids: None. Drips: None. History Diabetes [...] Diet Diabetic/ Calorie Controlled; Carb Counting 60g/meal 9936-2764 kcal Steroids: None. Drips: None. History Diabetes [...] Antonio Hameed PGY1, Internal Medicine Available on [place] Text 10/21/2024 10:39 AM Associated attestation - [...] MD (Nina) MPH Chief, Department of Medicine [phone] * Linda Rivera PA-C - 10/21/2024 6:28 AM EST Images from the original note were not included. [facility] Cardiology Transfer Service Progress Note Chief [...] outpatient cardiology follow up prior to discharge. [facility] cardiology will continue to follow. Case [...] inpatient Arrived From Hospital General Information Comments [facility] Initial Information How to be Addressed Vipul Source of Information patient;family;health record Stated Reason for Admission Covid, Heart, High Sugar Levels Patient Aware of Diagnosis yes Limitations on Visitors/Phone Calls none Temporary Family Living Arrangements (While Hospitalized) none needed Adaptive Services not applicable Does the Patient Have a CT DNR [place] Bracelet or State DNR Form? no Clinical Trial not applicable Designated Caregiver for Discharge Coordination Do You Have a Designated Caregiver for Discharge? yes Designated Caregiver's Name Prem Wilder Caregiver's Relationship to Patient children's ministries director's Caregiver's Address Same as the patient's address. [...] were you homeless or living in a custodial (including now)? N Food Insecurity Within the [...] of Pulmonary, Critical Care, and Sleep Medicine [address] [place] [address], [address] [address] Critical Care Progress Note Assessment & Plan [...] system. Dr. Pushpa Gallegos was notified by [place] text at 12:36 PM. GI: >Nutrition: Diet/Nutrition Received: consistent carb/diabetic diet Diet Diabetic/ Calorie Controlled; Carb Counting 60g/meal 6826-4874 kcal Renal: CKD 5, stable Monitor >Intake [...] if appropriate. This report was generated using [employer] Speaking dictation software. Although every attempt has [...] Hickey MD Principal Problem: DKA (diabetic ketoacidosis) ([facility]) (POA: Yes) Resolved Problems: Assessment & Plan [...] Diet Diabetic/ Calorie Controlled; Carb Counting 60g/meal 0221-4389 kcal Steroids: None. Drips: None. History Diabetes [...] from the original note were not included. [facility] CRITICAL CARE RESIDENT PROGRESS NOTE LOS: 2 CODE:: Code Status Procedures Full Code Subjective Hospital Course: This is a 79 yo male with PMHx of stage V CKD (has not been on hemodialysis follows with nephrologyin [place]), insulin-dependent diabetes, hypertension, HFrEF with acute decompensation [...] Problem List Principal Problem: DKA (diabetic ketoacidosis) ([facility]) (POA: Yes) Resolved Problems: Assessment Neymar aBum Meño 79 y.o. w/ PMHx of stage V CKD (has not been on hemodialysis follows with nephrology in [place]), insulin-dependent diabetes, hypertension admitted to ICU for [...] Diet Diabetic/ Calorie Controlled; Carb Counting 60g/meal 7826-3538 kcal NEPHROLOGY ALISA on stage III CKD [...] Tilley. Sign Lesly Luke MD Available on [place] Text 10/20/2024 7:48 AM * Linda Rivera PA-C - 10/20/2024 6:40 AM EST Images from the original note were not included. [facility] Cardiology Transfer Service Progress Note Chief [...] outpatient cardiology follow up prior to discharge. [facility] cardiology will continue to follow. Case [...] been on hemodialysis follows with nephrology in [place]), insulin-dependent diabetes, hypertension admitted to ICU for [...] MD Donavon Amos MD PGY-1 Internal Medicine [place] Text Preferred ICU Check-list Code: Code Status [...] Sample left with bedside RN. ACCESS: 6 Uzbek Azaz-T-Pglyrdxo closed needle/catheter system REQUESTING PRACTITIONER: Cheryl Blue [...] traversingadjacent organs or vascular structures. A 6 Uzbek Ixgn-D-Aajgbiiy closed needle/catheter system was utilized for access. [...] adjacent organs or vascular structures. A 6 Uzbek Tzga-V-Czflnlic closed needle/catheter system was utilized for access. [...] effusions unchanged. Interpreted by: Mitchell Ascencio DO Diesel Engine Pipe Fitter DIET/NUTRITION: Diet/Nutrition Received: NPO Diet NPO; Meds Behavioral/Sedation scales: CAM-ICU Delirium Present: Negative Rea Agitation Sedation Scale (RASS) / Modified RASS: 0-->alert and calm Ventilator settings: Associated attestation - Kristopher Hickey MD - 10/19/2024 11:18 PM EST [facility] Attestation note: Kristopher Hickey MD Critical care [...] Pulmonary, Critical Care, and Sleep Medicine [address], [address], [place] [address] Critical Care Progress Note Assessment & Plan [...] system. Dr. Pushpa Gallegos was notified by [place] text at 12:36 PM. GI: >Nutrition: Diet/Nutrition [...] if appropriate. This report was generated using [employer] Speaking dictation software. Although every attempt has been made by the provider to proofread this document, occasional misspellings and typographical errors may still be present. Sign: Kristopher Hickey MD 10/19/2024 9:56 AM * Linda Rivera PA-C - 10/19/2024 6:33 AM EST Images from the original note were not included. [facility] Cardiology Transfer Service Progress Note Chief [...] outpatient cardiology follow up prior to discharge. [facility] cardiology will continue to follow. Case [...] Pulmonary, Critical Care, and Sleep Medicine [address], [address], [place] [address] Critical Care Progress Note Assessment & Plan [...] There were discussions of HD with his contract project manager Dr. Pelon Smith Electrolyte monitoring Avoid nephrotoxins, monitor urine output Get nephrology on board given likely need for cardiac cath >Intake & Output No intake or output data in the 24 hours ending 10/18/24 7144 Endo: Glucommander protocol Gentle IV fluids given concern for volume overload Heme/Onc: On heparin drip for NSTEMI ID: No signs or symptoms of infection Monitor off antibiotics >Antibiotics: Drips: dextrose 5 % and sodium chloride 0.9 %, 10 mL/hr heparin (porcine) IV infusion - low dose protocol, 12 Units/kg/hr (Order- Specific), Last Rate: 12 Units/kg/hr (10/18/24 4370) insulin regular (HumuLIN-R) IV infusion - Glucommander, 0-100 Units/hr, Last Rate: 10 Units/hr (10/18/24 8054) Lines: Peripheral IV - Single Lumen (Adult) [...] if appropriate. This report was generated using [employer] Speaking dictation software. Although every attempt has [...] been on hemodialysis follows with nephrology in [place]), insulin-dependent diabetes, hypertension admitted to ICU for [...] V CKD (with prior discussions with patient's contract project manager regarding possible initiation of HD) Plan by [...] CKD (there were discussions with patient's prior contract project manager Dr. Pelon Smith regarding HD) Initial BUN/creatinine [...] been on hemodialysis follows with nephrology in [place]), insulin-dependent diabetes, hypertension presented from outside hospital [...] mg 1 mg Intramuscular Daily PRN Fuad iWnter MD heparin (porcine) 1000 unit/mL injection 2,100 [...] g 30 mL Oral Q4H PRN Nilda Datlon MD naloxone (NARCAN) 0.4 mg/mL injection 0.4 [...] atelectasis, respectively. Interpreted by: Prem Coffman MD Diesel Engine Pipe Fitter I personally reviewed the images and the [...] Procedure(s): Bilateral thoracentesis Indications: Bilateral pleural effusion Electronic Device Repairer: None Anesthesia: None Fluid: 850ml of clear [...] was initially admitted to ICU, transferred to MD on 10/20, now on floor level of [...] lb 1.8 oz) Fluids: 1600ml based on WELDING MACHINE ASSEMBLER Method (or per MD/team) Estimated/Assessed Carbohydrates Needs: [...] with CAD, s/p OR 02/2024, transferred from [facility] with NSTEMI. 2. HFrEF with newly [...] H&P, physical assessment, and educated on cardiac Multi Site Leasing Consultant procedure was approximately 60 minutes The following information is collected for participation in the [employer] CATH/PCI Registry (ACCNCDR) and [...] assessed: No Indications and Presentation Indication(s) for clay processing labourer visit: suspected CAD Chest pain symptom assessment: [...] DM II, HTN who was transferred from [facility] to on 10/18/24 with concern for [...] been on hemodialysis follows with nephrology in [place]), insulin-dependent diabetes, hypertension presented from outside hospital [...] found for: TACROLIMUS No results found for: [id number] , TOTVOL , CRCLR , PERIOD No [...] as written. Signed, Marty Kent MD, OSCAR Hoe Runner, CKD, [facility] Chief of Nephrology, [facility] [place] * Tangela Reed PA-C - 10/19/2024 9:09 AM ESTAssociated Order(s): IP CONSULT TO ENDOCRINOLOGY Endocrinology Consult Note [facility] Endocrinology - Medicine Date of Consult: 10/19/2024 Patient's Primary Care Physician: No primary care provider on file. Physician Requesting Consult: Reason for Consultation: Diabetes Management Admit Date: 10/18/2024 5:10 AM Principal Problem: DKA (diabetic ketoacidosis) ([facility]) (POA: Yes) Resolved Problems: Addendum Pended orders [...] Diabetes Management Subjective: Patient seen at [facility] d/t active COVID infection, interviewed over phone. [...] from the original note were not included. [facility] CARDIOLOGY TRANSFER SERVICE Date of Consult: 10/18/2024 Patient's Primary Care Physician: No primary care provider on file. Physician Requesting Consult: Pushpa Gallegos MD Primary Buyer Intern: - Reason for Consultation: Shortness of Breath [...] monitor with RN Nesha Jacobsen RN 10/18/24 5025 * Kristian Angeles RN - 10/18/2024 12:07 [...] history of diabetes presents in transfer from [place] with the patient was found to be [...] from external provider, facility, or healthcare organization: [place] ED note History obtained from other source [...] to fluid overload. Adriel Funez RN 10/18/24 2151 * Adriel Funez RN - 10/18/2024 5:24 [...] legal medical record. Vickie Norris RN, CDS [phone] * Case Coordination-Payor Communication - Meme Jones [...] Continued Stay Review Date: 10/31/2024 Clinical Update: [facility] today, remains NPO Neymar remains [...] arrived to the unit at 2000 from clay processing labourer. Upon assessment pt is Aox4, NSR on [...] cath fluids. Heparin gtt infusing. Sent to clay processing labourer for LHC.Strict isolation d/c. Oksana Zhang 10/31/2024 6:38 PM * Plan of Care - Torie Kwan RN - 10/30/2024 7:44 PM EST Plan of Care Reviewed With: patient Progress: improving Outcome Evaluation: Pt is A&Ox4. denies pain and SOB. medicated per MAR. Heparin continues per DEC. Strict isolation maintained. safety maintained throughout shift. Plan is for cath tomorrow oTrie Kwan 10/30/2024 7:44 PM * Hospital Course [...] clinically stable for transition. Plan is for [facility] today. At this time transition [...] from the original note were not included. [facility] Cardiology Transfer Service Plan of Care Note Pt noted to have ~20 beats of Vtach on monitor. Reportedly asymptomatic and hemodynamically stable during episode. Recommendations: -Aggressive electrolyte replacement with 2g IV Mag and 20 mg PO K+ -Lopressor 25 mg PO x1 with plan to increase Toprol-XL 100 mg daily tomorrow -No antiarrhythmic at this time -Pacer pads on -Tentatively planned for [facility] Tuesday, if VT persists contact clay processing labourer sooner for consideration of more urgent catheterization [...] Burgess MD Internal Medicine PGY2 Available via [employer] 10/28/24 10:54 AM * Plan of Care [...] remained stable and we continue optimizing for Multi Site Leasing Consultant. Catheter most likely happen early next week. He was appreciated update and I answered all his questions to the best my ability. Donavon Rodgers MD PGY-1 Internal Medicine [place] Text Preferred * Plan of Care - [...] of Care Reviewed With: patient Outcome Evaluation: 5850-8712: Neymar was A&Ox4 and had no complaints [...] Summary: pending cardiac cath Patient is from [place]. Recommendation: dispo plan home with HC services [...] ability. Donavon Rodgers MD PGY-1 Internal Medicine [place] Text Preferred * Plan of Care - Sirisha Adams RN - 10/26/2024 4:49 AM EST Progress: improving Outcome Evaluation: 5268-7285: Neymar remains alert and oriented *4. no shortness of breath. Continued on 4L oxymask, sating above goal. Continued on heparin drip. NPO since midnight for left and right heart cath today. slept between care. Sirisha Adams 10/26/2024 4:49 AM * Plan of Care - lOga Terrell RN - 10/25/2024 6:50 PM EST Plan of Care Reviewed With: patient Progress: improving Outcome Evaluation: 4453-3846. Pt alert and oriented *4. No reports [...] PM EST Patient set to go to clay processing labourer tomorrow, has been made NPO at midnight. Called bed management to facilitate transfer of patient to [address] in a private room 2/2 COVID [...] update Donavon Rodgers MD PGY-1 Internal Medicine [place] Text Preferred * Plan of Care - [...] Review Date: 10/25/2024 Clinical Update: NPO for clay processing labourer today. Spot dose Lasix. Continues on heparin gtt while awaiting clay processing labourer. Plan: #NSTEMI #Acute decompensated HFrEF (LVEF 28%) [...] with falling creatinine still greater than 25% equipment operator/laborer providers are well aware of this condition [...] Reviewed With: patient Progress: improving Outcome Evaluation: 9065-3075. Pt alert and oriented *4. No reports [...] 5:41 PM EST Discussed with family members rPem and Khalif on phone separately that cardiology [...] for his father to go to the Multi Site Leasing Consultant today. He had increasing oxygen requirements overnight [...] ability. Donavon Rodgers MD PGY-1 Internal Medicine [place] Text Preferred * Plan of Care - Sirisha Adams RN - 10/24/2024 6:44 AM EST Outcome Evaluation: 1685-2293: Neymar is alert and oriented *4. Denies [...] Terrell RN - 10/23/2024 6:57 PM EST [phone]. Pt alert and oriented *4. No reports [...] With: patient Progress: no change Outcome Evaluation: 4176-9647: No acute changes. Heparin gtt adjusted per [...] of Care Reviewed With: patient Outcome Evaluation: 4164-6194: In the beginning of the shift Neymar [...] ability. Donavon Rodgers MD PGY-1 Internal Medicine [place] Text Preferred * Rehab Therapy Consults - [...] level of independence with functional mobility. Baseline [facility] Basic Mobility Score: 24 Current [facility] Basic Mobility Score: 20 Objective Data ROM: [...] of Current Functional Problem Per chart: Neymar Hernándezozzieikrk is a 79 y.o. male with PMHx [...] Progressive Mobility Level Achieved Transferring to Chair [facility] Basic Mobility Turning from your back to [...] Climbing 3-5 steps with a railing? 3 [facility] Basic Mobility Score 20 Therapy Assessment/Plan (PT) [...] PT goal 1 Transfer Goal 1 (PT) Ward Level/Cues Needed (Transfer Goal 1, PT) modified independence Time Frame (Transfer Goal 1, PT) 2 weeks Activity/Assistive Device (Transfer Goal 1, PT) transfers, all;walker, rolling Gait Training Goal 1 (PT) Time Frame (Gait Training Goal 1, PT) 2 weeks Ward Level (Gait Training Goal 1, PT) modified independence Activity/Assistive Device (Gait Training Goal 1, PT) gait (walking locomotion);walker, rolling Distance (Gait Training Goal 1, PT) 300 feet Stairs Goal 1 (PT) Ward Level/Cues Needed (Stairs Goal 1, PT) supervision [...] of Care Reviewed With: patient Outcome Evaluation: 0035-5010: Neymar was A&Ox4 and had no complaints [...] Progress: no change Outcome Evaluation: Arrived from [facility] around 1600. Skin check complete [...] person supports:Self and Family PCP: Updated in [employer]. Added his preferred pharmacy as well. Anticipated [...] Continue Cierra Greenberg [facility] PGY-3 Internal Medicine [facility] Available on TigerText * Plan of [...] tonight. Donavon Rodgers MD PGY-1 Internal Medicine [place] Text Preferred * Case Coordination-Payor Communication - Meme Jones - 10/19/2024 7:24 AM EST Per [place] [employer] General Statutes Sec: [id number]: Notification of determination communicated within 2business days of receipt of all information necessary to complete the review. Please fax authorization determination to [phone] or call [phone] * Case Coordination-Payor Communication - Nathalia Liao RN - 10/19/2024 6:14 AM EST Type: (Inpt/Obs): Inpatient Date of Admission: 10/18/2024 Admitting Dx: DKA HPI: 79 y.o. w/ PMHx of stage V CKD (has not been on hemodialysis follows with nephrology in [place]), insulin-dependent diabetes, hypertension presented from outside hospital [...] V CKD (with prior discussions with patient's contract project manager regarding possible initiation of HD) Vitals: Pulse:86,Resp:20,BP:138/69,SpO2:92 [...] CKD (there were discussions with patient's prior contract project manager Dr. Pelon Smith regarding HD) Initial BUN/creatinine [...] OF CARE TEST ORDERABLES Performing Organization Address [facility] Phone Number HOSPITAL LAB See Below * (ABNORMAL) POCT Glucose, Fingerstick (11/01/2024 8:21 AM EST) POC Glucose 111(H) 65 - 99 mg/dL 11/01/2024 11:56 AM EST Blood specimen / Unknown 11/01/2024 8:21 AM EST 11/01/2024 11:56 AM EST Fuad Winter MD POINT OF CARE TEST ORDERABLES Performing Organization Address [facility] Number [facility] See Below * (ABNORMAL) Phosphorus (Early AM) (11/01/2024 6:20 AM EST) Phosphorus 4.7(H) 2.7 - 4.5 mg/dL 11/01/2024 7:58 AM EST [facility] Blood (Plasma/Serum) 11/01/2024 6:20 AM EST 11/01/2024 6:57 AM EST Jonna Donis PA-C LAB BLOOD ORDERABL ES Performing Organization Address [facility] [place] [address], [place] [address] * MAGNESIUM (11/01/2024 6:20 AM EST) Magnesium 1.6 1.6 - 2.7 mg/dL 11/01/2024 7:58 AM EST [facility] Blood (Plasma/Serum) 11/01/2024 6:20 AM EST 11/01/2024 6:57 AM EST Jonna Donis PA-C LAB BLOOD ORDERABL ES Performing Organization Address [facility] [place] [address], [place] [address] * (ABNORMAL) COMPLETE BLOOD COUNT, WITHOUT DIFFERENTIAL (11/01/2024 6:20 AM EST) [facility] White Blood Cell Count 9.1 4.0 - [...] Jonna Donis PA-C [place] [address], [place] [address] * (ABNORMAL) BASIC METABOLIC PANEL (11/01/2024 6:20 AM EST) [facility] Glucose 92 65 - 99 mg/dL 11/01/2024 [...] Jonna Donis PA-C [place] [address], [place] [address] * (ABNORMAL) POCT Glucose, Fingerstick (11/01/2024 1:58 [...] original result were not included. [facility] [place] [facility] - Cardiac Catheterization Laboratory PATIENT DEMOGRAPHIC INFORMATION Name: Neymar Baum Meño : 1945 79 y.o. Sex: male Gender: male Procedure Date: 10/31/2024 PROCEDURE DETAILS Stick Welder: Calixto Ureña MD Fellow: None Electronic Device Repairer(s): none Indications for Procedure: ACS, drop in EF Referring Physician: Neymar Mcfarland Referring Buyer Intern: PCP: Diaz kAers MD Procedure(s): Procedures: ??* CORONARY ANGIO W/LV [...] that I request from a [facility] PA/MONORAIL CHARGER OPERATOR/fellow/staff member. Calixto Ureña MD [facility] [place] 10/31/2024 ??6:57 PM Coronary Findings Diagnostic Dominance: [...] POCT Glucose, Fingerstick (10/31/2024 4:45 PM EST) [facility] POC Glucose 74 65 - 99 mg/dL 10/31/2024 4:46 PM EST Blood specimen / Unknown 10/31/2024 4:45 PM EST 10/31/2024 4:46 PM EST Fuad Winter MD POINT OF CARE TEST ORDERABLES HOSPITAL LAB See Below * Heparin Assay (Anti Xa) (10/31/2024 3:28 PM EST) [facility] Anti Xa 0.36 IU/mL 10/31/2024 4:07 PM [...] MD LAB BLOOD ORDERABLES Performing Organization Address [facility] [place] [address], [place] [address] * POCT Glucose, Fingerstick (10/31/2024 12:04 PM EST) POC Glucose 92 65 - 99 mg/dL 10/31/2024 12:21 PM EST Blood specimen / Unknown 10/31/2024 12:04 PM EST 10/31/2024 12:21 PM EST Fuad Winter MD POINT OF CARE TEST ORDERABLES Performing Organization Address [facility] Phone Number [facility] LAB See Below * POCT Glucose, Fingerstick (10/31/2024 8:13 AM EST) POC Glucose 84 65 - 99 mg/dL 10/31/2024 8:15 AM EST Blood specimen / Unknown 10/31/2024 8:13 AM EST 10/31/2024 8:15 AM EST Fuad Winter MD POINT OF CARE TEST ORDERABLES Performing Organization Address [facility] Phone Number HOSPITAL LAB See Below * (ABNORMAL) High Sensitivity Troponin T (10/31/2024 7:16 AM EST) [facility] High Sensitivity Troponin T 396(HH) <23 ng/L 10/31/2024 9:15 AM EST [facility] Delta (Change) NO PREVIOUS RESULT <3 10/31/2024 9:15 AM EST [facility] Plasma/Serum 10/31/2024 7:16 AM EST 10/31/2024 7:47 AM EST Madhav Ryan MD LAB BLOOD ORDERABLES Performing Organization Address City/[facility]/[place]IP [place] [address], [place] [address] * TSH, HIGHLY SENSITIVE (10/31/2024 7:16 AM EST) [facility] TSH, Highly Sensitive 2.06 0.27 - 4.20 mIU/L 10/31/2024 9:15 AM EST [facility] Plasma/Serum 10/31/2024 7:16 AM EST 10/31/2024 7:47 AM EST Madhav Ryan MD LAB BLOOD ORDERABLES [facility] [address] [place] [address], [place] [address] * Heparin Assay (Anti Xa) (10/31/2024 7:16 AM EST) [facility] Anti Xa 0.54 IU/mL 10/31/2024 8:07 AM [...] LAB BLOOD ORDERAB LES Performing Organization Address [facility] [place] [address], [facility] [address] [place] [address] * (ABNORMAL) Phosphorus (Early AM) (10/31/2024 7:16 AM EST) Phosphorus 4.7(H) 2.7 - 4.5 mg/dL 10/31/2024 8:55 AM EST [facility] Blood (Plasma/Serum) 10/31/2024 7:16 AM EST 10/31/2024 7:47 AM EST Jonna Donis PA-C LAB BLOOD ORDERABL ES Performing Organization Address City/[facility] [place] [address], [place] [address] * MAGNESIUM (10/31/2024 7:16 AM EST) Pathologist [facility] Magnesium 1.7 1.6 - 2.7 mg/dL 10/31/2024 8:55 AM [facility] Blood (Plasma/Serum) 10/31/2024 7:16 AM EST 10/31/2024 7:47 AM EST Jonna Giraldo Quippi PA-C LAB BLOOD ORDERABL ES Performing Organization Address [facility] [place] [address], [place] [address] * (ABNORMAL) COMPLETE BLOOD COUNT, WITHOUT DIFFERENTIAL (10/31/2024 7:16 AM EST) [facility] White Blood Cell Count 8.9 4.0 - [...] Jonna Donis PA-C [place] [address], [place] [address] * (ABNORMAL) BASIC METABOLIC PANEL (10/31/2024 7:16 [...] 16 7 - 17 10/31/2024 8:55 AM [facility] Calcium 8.8 8.7 - 10.5 mg/dL 10/31/2024 8:55 AM [facility] BUN/Creatinine Ratio 9(L) 10.0 - 25.0 Ratio 10/31/2024 8:55 AM EST [facility] Blood (Plasma/Serum) 10/31/2024 7:16 AM EST 10/31/2024 7:47 AM EST Jonna Donis PA-C LAB BLOOD ORDERABL ES Performing Organization Address [facility]/[place]IP [place] [address], [place] [address] * POCT Glucose, Fingerstick (10/31/2024 2:18 AM EST) POC Glucose 88 65 - 99 mg/dL 10/31/2024 2:20 AM EST Blood specimen / Unknown 10/31/2024 2:18 AM EST 10/31/2024 2:20 AM EST Fuad Winter MD POINT OF CARE TEST ORDERABLES Performing Organization Address City/[facility]/ZIP Co de Phone Number [facility] LAB See Below * (ABNORMAL) POCT [...] OF CARE TEST ORDERABLES Performing Organization Address [facility] LAB See Below * POCT Glucose, Fingerstick (10/30/2024 2:00 PM EST) POC Glucose 99 65 - 99 mg/dL 10/30/2024 2:04 PM EST Blood specimen / Unknown 10/30/2024 2:00 PM EST 10/30/2024 2:04 PM EST Fuad Winter MD POINT OF CARE TEST ORDERABLES Performing Organization Address [facility] LAB See Below * POCT Glucose, Fingerstick (10/30/2024 12:35 PM EST) POC Glucose 99 65 - 99 mg/dL 10/30/2024 12:36 PM EST Blood specimen / Unknown 10/30/2024 12:35 PM EST 10/30/2024 12:36 PM EST Fuad Winter MD POINT OF CARE TEST ORDERABLES Performing Organization Address [facility] LAB See Below * POCT Glucose, Fingerstick (10/30/2024 8:43 AM EST) POC Glucose 95 65 - 99 mg/dL 10/30/2024 8:44 AM EST Blood specimen / Unknown 10/30/2024 8:43 AM EST 10/30/2024 8:44 AM EST Fuad Winter MD POINT OF CARE TEST ORDERABLES Performing Organization Address [facility] LAB See Below * Heparin Assay (Anti Xa) (10/30/2024 7:09 AM EST) Anti Xa 0.50 IU/mL 10/30/2024 8:13 AM EST [facility] Comment: (NOTE) Heparin Thromboembolic/Standard/Full [...] LAB BLOOD ORDERAB LES Performing Organization Address [facility] [place] [address], [place] [address] * (ABNORMAL) Phosphorus (Early AM) (10/30/2024 7:09 AM EST) Phosphorus 5.1(H) 2.7 - 4.5 mg/dL 10/30/2024 8:47 AM EST [facility] Blood (Plasma/Serum) 10/30/2024 7:09 AM EST 10/30/2024 7:54 AM EST Jonna Donis PA-C LAB BLOOD ORDERABL ES Performing Organization Address [facility] [place] [address], [place] [address] * MAGNESIUM (10/30/2024 7:09 AM EST) Magnesium 1.7 1.6 - 2.7 mg/dL 10/30/2024 8:47 AM EST [facility] Blood (Plasma/Serum) 10/30/2024 7:09 AM EST 10/30/2024 7:54 AM EST Jonna Donis PA-C LAB BLOOD ORDERABL ES Performing Organization Address [facility] [place] [address], [place] [address] * (ABNORMAL) COMPLETE BLOOD COUNT, WITHOUT DIFFERENTIAL (10/30/2024 7:09 AM EST) White Blood Cell Count 9.3 4.0 - 11.0 Thou/uL 10/30/2024 8:20 AM EST [facility] Platelet Count 304 150 - 450 [...] Jonna Donis PA-C [place] [address], [place] [address] * (ABNORMAL) BASIC METABOLIC PANEL (10/30/2024 7:09 [...] Jonna Donis PA-C [place] [address], [place] [address] * POCT Glucose, Fingerstick (10/30/2024 6:47 AM [...] OF CARE TEST ORDERABLES Performing Organization Address [facility] LAB See Below * (ABNORMAL) POCT Glucose, Fingerstick (10/29/2024 9:16 PM EST) POC Glucose 138(H) 65 - 99 mg/dL 10/29/2024 9:16 PM EST Blood specimen / Unknown 10/29/2024 9:16 PM EST 10/29/2024 9:17 PM EST Fuad Winter MD POINT OF CARE TEST ORDERABLES Performing Organization Address [facility] LAB See Below * (ABNORMAL) POCT Glucose, Fingerstick (10/29/2024 4:32 PM EST) POC Glucose 187(H) 65 - 99 mg/dL 10/29/2024 4:33 PM EST Blood specimen / Unknown 10/29/2024 4:32 PM EST 10/29/2024 4:33 PM EST Fuad Winter MD POINT OF CARE TEST ORDERABLES Performing Organization Address [facility] LAB See Below * (ABNORMAL) POCT Glucose, Fingerstick (10/29/2024 12:54 PM EST) POC Glucose 162(H) 65 - 99 mg/dL 10/29/2024 12:55 PM EST Blood specimen / Unknown 10/29/2024 12:54 PM EST 10/29/2024 12:55 PM EST Fuad Winter MD POINT OF CARE TEST ORDERABLES Performing Organization Address [facility] LAB See Below * (ABNORMAL) POCT Glucose, Fingerstick (10/29/2024 7:51 AM EST) POC Glucose 107(H) 65 - 99 mg/dL 10/29/2024 7:53 AM EST Blood specimen / Unknown 10/29/2024 7:51 AM EST 10/29/2024 7:52 AM EST Fuad Winter MD POINT OF CARE TEST ORDERABLES Performing Organization Address [facility] de Phone Number HOSPITAL LAB See Below * (ABNORMAL) proBNP, N-terminal (10/29/2024 7:20 AM EST) Pathologist [facility] proBNP, N-terminal 47,866(H) <450 pg/mL 10/29/2024 12:12 PM EST [facility] Plasma specimen / Unknown 10/29/2024 7:20 AM EST 10/29/2024 8:04 AM EST Madhav Ryan MD LAB BLOOD ORDERABLES Performing Organization Address [facility] Phone Number [facility] [address] [place] [address], [place] [address] * Heparin Assay (Anti Xa) (10/29/2024 7:20 AM EST) [facility] Anti Xa 0.41 IU/mL 10/29/2024 8:28 AM EST [facility] Comment: (NOTE) Heparin Thromboembolic/Standard/Full [...] LAB BLOOD ORDERAB LES Performing Organization Address [facility]/State/[facility] [place] [address], [place] [address] * (ABNORMAL) Phosphorus (Early AM) (10/29/2024 7:20 AM EST) Phosphorus 4.9(H) 2.7 - 4.5 mg/dL 10/29/2024 8:40 AM EST [facility] Blood (Plasma/Serum) 10/29/2024 7:20 AM EST 10/29/2024 8:04 AM EST Jonna Donis PA-C LAB BLOOD ORDERABL ES Performing Organization Address City/[facility]/[place] [address], [place] [address] * MAGNESIUM (10/29/2024 7:20 AM EST) Magnesium 1.7 1.6 - 2.7 mg/dL 10/29/2024 8:40 AM [facility] Blood (Plasma/Serum) 10/29/2024 7:20 AM EST 10/29/2024 8:04 AM EST Jonna Donis PA-C LAB BLOOD ORDERABL ES Performing Organization Address [facility] [place] [address], [place] [address] * (ABNORMAL) COMPLETE BLOOD COUNT, WITHOUT DIFFERENTIAL [...] Jonna Donis PA-C [place] [address], [place] [address] * (ABNORMAL) BASIC METABOLIC PANEL (10/29/2024 7:20 [...] Jonna Donis PA-C LAB BLOOD ORDERABL ES [address] [address], [address] [address] * POCT Glucose, Fingerstick (10/29/2024 2:07 AM EST) POC Glucose 99 65 - 99 mg/dL 10/29/2024 2:07 AM EST Blood specimen / Unknown 10/29/2024 2:07 AM EST 10/29/2024 2:08 AM EST Fuad Winter MD POINT OF CARE TEST ORDERABLES Performing Organization Address [facility] Co de Phone Number [facility] LAB See Below * (ABNORMAL) POCT Glucose, Fingerstick (10/28/2024 9:30 PM EST) POC Glucose 219(H) 65 - 99 mg/dL 10/28/2024 9:31 PM EST Blood specimen / Unknown 10/28/2024 9:30 PM EST 10/28/2024 9:31 PM EST Fuad Winter MD POINT OF CARE TEST ORDERABLES [facility] LAB See Below * (ABNORMAL) POCT [...] EST Madhav Ryan MD [place] [address], [place] [address] * Magnesium (STAT) (10/28/2024 3:38 PM EST) Pathologist [facility] Magnesium 1.8 1.6 - 2.7 mg/dL 10/28/2024 4:54 PM [facility] Blood (Plasma/Serum) 10/28/2024 3:38 PM EST 10/28/2024 4:29 PM EST Madhav Ryan MD [place] [address], [place] [address] * (ABNORMAL) Basic Metabolic Panel (STAT) (10/28/2024 3:38 PM EST) Pathologist [facility] Glucose 208(H) 65 - 99 mg/dL 10/28/2024 [...] EST Madhav Ryan MD [place] [address], [place] [address] * (ABNORMAL) POCT Glucose, Fingerstick (10/28/2024 12:32 PM EST) Pathologist [facility] POC Glucose 232(H) 65 - 99 mg/dL 10/28/2024 12:36 PM EST Blood specimen / Unknown 10/28/2024 12:32 PM EST 10/28/2024 12:36 PM EST Fuad Winter MD POINT OF CARE TEST ORDERABLES HOSPITAL LAB See Below * (ABNORMAL) POCT Glucose, Fingerstick (10/28/2024 8:28 AM EST) Pathologist [facility] POC Glucose 111(H) 65 - 99 mg/dL 10/28/2024 8:30 AM EST Blood specimen / Unknown 10/28/2024 8:28 AM EST 10/28/2024 8:29 AM EST Fuad Winter MD POINT OF CARE TEST ORDERABLES HOSPITAL LAB See Below * Heparin Assay (Anti Xa) (10/28/2024 7:00 AM EST) Anti Xa 0.39 IU/mL 10/28/2024 7:54 AM EST [facility] Comment: (NOTE) Heparin Thromboembolic/Standard/Full [...] LAB BLOOD ORDERAB LES Performing Organization Address [facility] [place] [address], [place] [address] * (ABNORMAL) Phosphorus (Early AM) (10/28/2024 7:00 AM EST) Phosphorus 4.6(H) 2.7 - 4.5 mg/dL 10/28/2024 8:08 AM EST [facility] Blood (Plasma/Serum) 10/28/2024 7:00 AM EST 10/28/2024 7:37 AM EST Jonna Donis PA-C LAB BLOOD ORDERABL ES Performing Organization Address [facility] Co de Phone Number [address] [address], [address] [address] * MAGNESIUM (10/28/2024 7:00 AM EST) Magnesium 1.8 1.6 - 2.7 mg/dL 10/28/2024 8:08 AM EST [facility] Blood (Plasma/Serum) 10/28/2024 7:00 AM EST 10/28/2024 7:37 AM EST Jonna Donis PA-C LAB BLOOD ORDERABL ES Performing Organization Address [facility] [place] [address], [address] [address] * (ABNORMAL) COMPLETE BLOOD COUNT, WITHOUT DIFFERENTIAL (10/28/2024 7:00 AM EST) [facility] White Blood Cell Count 9.2 4.0 - [...] Jonna Donis PA-C LAB BLOOD ORDERABL ES [address] [address], [address] [address] * (ABNORMAL) BASIC METABOLIC PANEL (10/28/2024 7:00 AM EST) [facility] Glucose 84 65 - 99 mg/dL 10/28/2024 [...] Jonna Donis PA-C [place] [address], [place] [address] * (ABNORMAL) POCT Glucose, Fingerstick (10/28/2024 4:20 AM EST) POC Glucose 109(H) 65 - 99 mg/dL 10/28/2024 4:21 AM EST Blood specimen / Unknown 10/28/2024 4:20 AM EST 10/28/2024 4:21 AM EST Fuad Winter MD POINT OF CARE TEST ORDERABLES Performing Organization Address [facility] Phone [facility] LAB See Below * (ABNORMAL) POCT Glucose, Fingerstick (10/28/2024 12:29 AM EST) POC Glucose 129(H) 65 - 99 mg/dL 10/28/2024 12:30 AM EST Blood specimen / Unknown 10/28/2024 12:29 AM EST 10/28/2024 12:30 AM EST Fuad Winter MD POINT OF CARE TEST ORDERABLES Performing Organization Address [facility] Phone Number [facility] LAB See Below * (ABNORMAL) POCT Glucose, Fingerstick (10/27/2024 8:06 PM EST) POC Glucose 203(H) 65 - 99 mg/dL 10/27/2024 8:10 PM EST Blood specimen / Unknown 10/27/2024 8:06 PM EST 10/27/2024 8:10 PM EST Fuad Winter MD POINT OF CARE TEST ORDERABLES Performing Organization Address [facility] Phone [facility] LAB See Below * (ABNORMAL) POCT Glucose, Fingerstick (10/27/2024 4:20 PM EST) POC Glucose 224(H) 65 - 99 mg/dL 10/27/2024 4:28 PM EST Blood specimen / Unknown 10/27/2024 4:20 PM EST 10/27/2024 4:28 PM EST Fuad Winter MD POINT OF CARE TEST ORDERABLES Performing Organization Address [facility] Phone Number [facility] LAB See Below * (ABNORMAL) Basic Metabolic Panel (Routine) (10/27/2024 3:26 PM EST) Glucose 179(H) 65 - 99 mg/dL 10/27/2024 4:11 PM EST [facility] Comment:Fasting: <100 mg/dL, Non-Fasting: <200 [...] EST Madhav Ryan MD [place] [address], [place] [address] * (ABNORMAL) POCT Glucose, Fingerstick (10/27/2024 1:13 [...] AM EST) Ventricular rate 60 BPM EKG [facility] Atrial rate 60 BPM EKG [facility] P-R interval 150 ms EKG [facility] QRS duration 84 ms EKG [facility] Q-T interval 488 ms EKG [facility] QTC calculation (Bazett) 488 ms EKG [facility] P axis 45 degrees EKG [facility] R axis 13 degrees EKG [facility] T axis 199 degrees EKG [facility] 10/27/2024 7:41 AM EST Narrative EKG [...] MD ECG ORDERABLES EKG [facility] * Heparin Assay (Anti Xa) (10/27/2024 7:29 AM EST) Anti Xa 0.39 IU/mL 10/27/2024 8:42 AM EST [facility] Comment: (NOTE) Heparin Thromboembolic/Standard/Full [...] LAB BLOOD ORDERAB LES Performing Organization Address [facility] [place] [address], [place] [address] * (ABNORMAL) Phosphorus (AM) (10/27/2024 7:29 AM EST) Phosphorus 4.6(H) 2.7 - 4.5 mg/dL 10/27/2024 8:48 AM EST [facility] Blood (Plasma/Serum) 10/27/2024 7:29 AM EST 10/27/2024 8:24 AM EST Neymar Mcfarland MD LAB BLOOD ORDERAB LES Performing Organization Address [facility] [place] [address], [address] [address] * Magnesium (AM) (10/27/2024 7:29 AM EST) Magnesium 1.8 1.6 - 2.7 mg/dL 10/27/2024 8:48 AM EST [facility] Blood (Plasma/Serum) 10/27/2024 7:29 AM EST 10/27/2024 8:24 AM EST Neymar Mcfarland MD LAB BLOOD ORDERAB LES Performing Organization Address [facility] [place] [address], [place] [address] * (ABNORMAL) Basic Metabolic Panel (AM) (10/27/2024 [...] Neymar Mcfarland MD LAB [place] [address], [place] [address] * (ABNORMAL) Complete Blood Count WITHOUT Differential - in AM (10/27/2024 7:29 AM EST) [facility] White Blood Cell Count 9.2 4.0 - [...] Neymar Mcfarland MD LAB BLOOD ORDERAB LES [facility] Organization Address City/State/[facility] [place] [address], [place] [address] * POCT Glucose, Fingerstick (10/27/2024 4:02 AM EST) [facility] POC Glucose 90 65 - 99 mg/dL 10/27/2024 4:03 AM EST Blood specimen / Unknown 10/27/2024 4:02 AM EST 10/27/2024 4:03 AM EST Fuad Winter MD POINT OF CARE TEST ORDERABLES Performing Organization Address [facility] Phone Number HOSPITAL LAB See Below * (ABNORMAL) POCT Glucose, Fingerstick (10/27/2024 1:20 AM EST) POC Glucose 155(H) 65 - 99 mg/dL 10/27/2024 1:25 AM EST Blood specimen / Unknown 10/27/2024 1:20 AM EST 10/27/2024 1:25 AM EST Fuad Winter MD POINT OF CARE TEST ORDERABLES Performing Organization Address [facility] Phone Number HOSPITAL LAB See Below * POCT Glucose, Fingerstick (10/27/2024 12:29 AM EST) POC Glucose 74 65 - 99 mg/dL 10/27/2024 12:30 AM EST Blood specimen / Unknown 10/27/2024 12:29 AM EST 10/27/2024 12:30 AM EST Fuad Winter MD POINT OF CARE TEST ORDERABLES Performing Organization Address [facility] Phone Number [facility] LAB See Below * (ABNORMAL) POCT Glucose, Fingerstick (10/26/2024 8:11 PM EST) POC Glucose 120(H) 65 - 99 mg/dL 10/26/2024 8:12 PM EST Blood specimen / Unknown 10/26/2024 8:11 PM EST 10/26/2024 8:12 PM EST Fuad Winter MD POINT OF CARE TEST ORDERABLES Performing Organization Address [facility] Co ut Phone Number HOSPITAL LAB See Below * [...] 2,071(HH) <23 ng/L 10/26/2024 11:53 AM EST [facility] Comment:Recurring Critical R esult. Previously phoned. Delta (Change) 532(H) <3 10/26/2024 11:53 AM EST [facility] Comment:Decreased Blood (Plasma/Serum) 10/26/2024 10:49 AM EST 10/26/2024 11:11 AM EST Neymar Mcfarland MD LAB BLOOD ORDERAB LES Performing Organization Address [facility] [place] [address], [place] [address] * POCT Glucose, Fingerstick (10/26/2024 8:48 AM EST) POC Glucose 90 65 - 99 mg/dL 10/26/2024 8:49 AM EST Blood specimen / Unknown 10/26/2024 8:48 AM EST 10/26/2024 8:49 AM EST Fuad Winter MD POINT OF CARE TEST ORDERABLES HOSPITAL LAB See Below * Heparin Assay (Anti Xa) (10/26/2024 6:18 AM EST) [facility] Signature Anti Xa 0.49 IU/mL 10/26/2024 7:38 AM EST [facility] Comment: (NOTE) Heparin Thromboembolic/Standard/Full [...] LAB BLOOD ORDERAB LES Performing Organization Address City/[facility] [place] [address], [place] [address] * Phosphorus (AM) (10/26/2024 6:18 AM EST) Phosphorus 4.2 2.7 - 4.5 mg/dL 10/26/2024 7:45 AM EST [facility] Blood (Plasma/Serum) 10/26/2024 6:18 AM EST 10/26/2024 7:22 AM EST Neymar Mcfarland MD LAB BLOOD ORDERAB LES Performing Organization Address [facility] [place] [address], [place] [address] * Magnesium (AM) (10/26/2024 6:18 AM EST) Magnesium 1.9 1.6 - 2.7 mg/dL 10/26/2024 7:45 AM EST [facility] Blood (Plasma/Serum) 10/26/2024 6:18 AM EST 10/26/2024 7:22 AM EST Neymar Mcfarland MD LAB BLOOD ORDERAB LES Performing Organization Address [facility] [place] [address], [place] [address] * (ABNORMAL) Basic Metabolic Panel (AM) (10/26/2024 [...] Neymar Mcfarland MD [place] [address], [address] [address] * (ABNORMAL) Complete Blood Count WITHOUT Differential [...] Neymar Mcfarland MD [place] [address], [place] [address] * (ABNORMAL) POCT Glucose, Fingerstick (10/26/2024 3:58 AM EST) POC Glucose 100(H) 65 - 99 mg/dL 10/26/2024 3:58 AM EST Blood specimen / Unknown 10/26/2024 3:58 AM EST 10/26/2024 3:59 AM EST Fuad Winter MD POINT OF CARE TEST ORDERABLES HOSPITAL LAB See Below * (ABNORMAL) POCT Glucose, Fingerstick (10/25/2024 11:49 PM EST) Pathologist [facility] POC Glucose 125(H) 65 - 99 mg/dL 10/25/2024 11:50 PM EST Blood specimen / Unknown 10/25/2024 11:49 PM EST 10/25/2024 11:50 PM EST Fuad Winter MD POINT OF CARE TEST ORDERABLES HOSPITAL LAB See Below * Heparin Assay (Anti Xa) (10/25/2024 11:35 PM EST) [facility] Anti Xa 0.44 IU/mL 10/26/2024 12:23 AM EST [facility] Comment: (NOTE) Heparin Thromboembolic/Standard/Full [...] LAB BLOOD ORDERAB LES Performing Organization Address [facility] [place] [address], [place] [address] * (ABNORMAL) POCT Glucose, Fingerstick (10/25/2024 8:20 PM EST) [facility] POC Glucose 222(H) 65 - 99 mg/dL 10/25/2024 8:21 PM EST Blood specimen / Unknown 10/25/2024 8:20 PM EST 10/25/2024 8:21 PM EST Fuad Winter MD POINT OF CARE TEST ORDERABLES HOSPITAL LAB See Below * (ABNORMAL) POCT Glucose, Fingerstick (10/25/2024 5:39 PM EST) Pathologist [facility] POC Glucose 135(H) 65 - 99 mg/dL 10/25/2024 5:44 PM EST Blood specimen / Unknown 10/25/2024 5:39 PM EST 10/25/2024 5:44 PM EST Fuad Winter MD POINT OF CARE TEST ORDERABLES HOSPITAL LAB See Below * Heparin Assay (Anti Xa) (10/25/2024 5:03 PM EST) Anti Xa 0.57 IU/mL 10/25/2024 5:53 PM EST [facility] Comment: (NOTE) Heparin [...] LAB BLOOD ORDERAB LES Performing Organization Address [facility] [place] [address], [place] [address] * (ABNORMAL) High Sensitivity Troponin T (now [...] LAB BLOOD ORDERAB LES Performing Organization Address [facility] [place] [address], [place] [address] * (ABNORMAL) High Sensitivity Troponin T (now [...] LAB BLOOD ORDERAB LES Performing Organization Address [facility] [place] [address], [place] [address] * (ABNORMAL) High Sensitivity Troponin T (10/25/2024 12:47 PM EST) High Sensitivity Troponin T 2,394(HH) <23 ng/L 10/25/2024 2:04 PM [facility] Comment:Recurring Critical R esult. Previously phoned. Delta (Change) 209(H) <3 10/25/2024 2:04 PM [facility] Comment:Decreased Plasma/Serum 10/25/2024 12:4 7 PM EST 10/25/2024 1:34 PM EST Bryant Gracia PA-C LAB BLOOD ORDERABLES Performing Organization Address [facility] [place] [address], [place] [address] * Heparin Assay (Anti Xa) (10/25/2024 12:47 [...] LAB BLOOD ORDERAB LES Performing Organization Address City/State/[facility] [place] [address], [place] [address] * (ABNORMAL) POCT Glucose, Fingerstick (10/25/2024 12:33 [...] AM EST) Ventricular rate 76 BPM EKG [facility] Atrial rate 76 BPM EKG [facility] P-R interval 152 ms EKG [facility] QRS duration 82 ms EKG [facility] Q-T interval 450 ms EKG [facility] QTC calculation (Bazett) 506 ms EKG [facility] P axis 67 degrees EKG [facility] R axis 69 degrees EKG [facility] T axis 237 degrees EKG [facility] 10/25/2024 10:4 4 AM EST Narrative EKG [facility] - 10/25/2024 8:09 PM EST Normal sinus rhythm ST & T wave abnormality, consider lateral ischemia Prolonged QT Abnormal ECG When compared with ECG of 23-Oct-2024 17:43, Nonspecific T wave abnormality, worse in Inferior leads T wave inversion less evident in Lateral leads Confirmed by DO Ladd Kyla ([id number]) on 10/25/2024 8:09:06 PM Procedure Note Jessica Ladd DO - 10/25/[address] & T wave abnormality, consider lateral ischemia Prolonged QT Abnormal ECG When compared with ECG of 23-Oct-2024 17:43, Nonspecific T wave abnormality, worse in Inferior leads T wave inversion less evident in Lateral leads Confirmed by DO Ladd Kyla ([id number]) on 10/25/2024 8:09:06 PM Fuad Winter MD ECG ORDERABLE S [facility] * (ABNORMAL) High Sensitivity Troponin T (10/25/2024 10:25 AM EST) High Sensitivity Troponin T 2,514(HH) <23 ng/L 10/25/2024 11:49 AM EST [facility] Comment:Recurring Critical R esult. Previously phoned. Delta (Change) 89(H) <3 10/25/2024 11:49 AM EST [facility] Comment:Decreased Plasma/Serum 10/25/2024 10:2 5 AM EST 10/25/2024 11:17 AM EST Bryant Gracia PA-C LAB BLOOD ORDERABLES [facility] [address] [place] [address], [address] [address] * (ABNORMAL) POCT Glucose, Fingerstick (10/25/2024 9:20 AM EST) [facility] POC Glucose 129(H) 65 - 99 mg/dL 10/25/2024 9:21 AM EST Blood specimen / Unknown 10/25/2024 9:20 AM EST 10/25/2024 9:21 AM EST Fuad Winter MD POINT OF CARE TEST ORDERABLES HOSPITAL LAB See Below * CREATINE KINASE (CK) (10/25/2024 8:27 AM EST) [facility] Creatine Kinase (CK) 76 24 - 204 U/L 10/25/2024 10:25 AM EST [facility] Plasma/Serum 10/25/2024 8:27 AM EST 10/25/2024 9:16 AM EST Neymar Mcfarland MD LAB BLOOD ORDERAB LES Performing Organization Address [facility] [place] [address], [place] [address] * (ABNORMAL) High Sensitivity Troponin T (10/25/2024 8:27 AM EST) [facility] High Sensitivity Troponin T 2,603(HH) <23 ng/L 10/25/2024 10:25 AM EST [facility] Delta (Change) NO PREVIOUS RESULT <3 10/25/2024 10:25 AM EST [facility] Plasma/Serum 10/25/2024 8:27 AM EST 10/25/2024 9:16 AM EST Neymar Mcfarland MD LAB BLOOD ORDERAB LES Performing Organization Address [facility] [place] [address], [place] [address] * Phosphorus (AM) (10/25/2024 8:27 AM EST) Phosphorus 3.8 2.7 - 4.5 mg/dL 10/25/2024 10:25 AM [facility] Blood (Plasma/Serum) 10/25/2024 8:27 AM EST 10/25/2024 9:16 AM EST Neymar Mcfarland MD LAB BLOOD ORDERAB LES Performing Organization Address City/[facility]/ZIP [place] [address], [place] [address] * Magnesium (AM) (10/25/2024 8:27 AM EST) Magnesium 2.0 1.6 - 2.7 mg/dL 10/25/2024 10:25 AM [facility] Blood (Plasma/Serum) 10/25/2024 8:27 AM EST 10/25/2024 9:16 AM EST Neymar Mcfarland MD LAB BLOOD ORDERAB LES Performing Organization Address City/[facility] [place] [address], [place] [address] * (ABNORMAL) Basic Metabolic Panel (AM) (10/25/2024 [...] LAB BLOOD ORDERAB LES Performing Organization Address City/State/[facility] [place] [address], [place] [address] * (ABNORMAL) Complete Blood Count WITHOUT Differential [...] LAB BLOOD ORDERAB LES Performing Organization Address City/State/[facility] Co de Phone Number [facility] [address] [place] [address], [facility] [address] [place] [address] * Heparin Assay (Anti Xa) (10/25/2024 5:21 [...] LAB BLOOD ORDERAB LES Performing Organization Address [facility] [place] [address], [place] [address] * (ABNORMAL) POCT Glucose, Fingerstick (10/25/2024 5:15 AM EST) [facility] POC Glucose 115(H) 65 - 99 mg/dL 10/25/2024 5:15 AM EST Blood specimen / Unknown 10/25/2024 5:15 AM EST 10/25/2024 5:16 AM EST Fuad Winter MD POINT OF CARE TEST ORDERABLES Performing Organization Address [facility] Co de Phone Number HOSPITAL LAB See Below * (ABNORMAL) POCT Glucose, Fingerstick (10/25/2024 1:03 AM EST) Pathologist [facility] POC Glucose 125(H) 65 - 99 mg/dL 10/25/2024 1:03 AM EST Blood specimen / Unknown 10/25/2024 1:03 AM EST 10/25/2024 1:04 AM EST Fuad Winter MD POINT OF CARE TEST ORDERABLES HOSPITAL LAB See Below * Heparin Assay (Anti Xa) (10/24/2024 9:57 PM EST) Pathologist [facility] Anti Xa 0.58 IU/mL 10/24/2024 10:50 PM EST [facility] Comment: (NOTE) Heparin [...] LAB BLOOD ORDERAB LES Performing Organization Address [facility] [place] [address], [place] [address] * (ABNORMAL) POCT Glucose, Fingerstick (10/24/2024 8:23 PM EST) Pathologist [facility] POC Glucose 211(H) 65 - 99 mg/dL 10/24/2024 8:24 PM EST Blood specimen / Unknown 10/24/2024 8:23 PM EST 10/24/2024 8:24 PM EST Fuad Winter MD POINT OF CARE TEST ORDERABLES Performing Organization Address [facility] de Phone Number HOSPITAL LAB See Below * Heparin Assay (Anti Xa) (10/24/2024 4:14 PM EST) Pathologist [facility] Anti Xa 0.56 IU/mL 10/24/2024 5:08 PM EST [facility] Comment: (NOTE) Heparin [...] LAB BLOOD ORDERAB LES Performing Organization Address [facility] Co de Phone Number [address] [address], [facility] [address] [place] [address] * (ABNORMAL) POCT Glucose, Fingerstick (10/24/2024 4:07 PM EST) POC Glucose 152(H) 65 - 99 mg/dL 10/24/2024 4:09 PM EST Blood specimen / Unknown 10/24/2024 4:07 PM EST 10/24/2024 4:09 PM EST Fuad Winter MD POINT OF CARE TEST ORDERABLES Performing Organization Address [facility] Co de Phone Number HOSPITAL LAB See Below * (ABNORMAL) POCT Glucose, Fingerstick (10/24/2024 11:13 AM EST) POC Glucose 158(H) 65 - 99 mg/dL 10/24/2024 11:14 AM EST Blood specimen / Unknown 10/24/2024 11:13 AM EST 10/24/2024 11:14 AM EST Fuad Winter MD POINT OF CARE TEST ORDERABLES Performing Organization Address [facility] Phone Number HOSPITAL LAB See Below [...] OF CARE TEST ORDERABLES Performing Organization Address City/[facility]/ZIP Co de Phone Number HOSPITAL LAB See Below * (ABNORMAL) B-Hydroxybutyrate (10/24/2024 7:11 AM EST) Pathologist [facility] B-Hydroxybutyrate 2.36(H) <0.28 mmol/L 10/24/2024 10:30 AM EST [facility] Comment: In the presence of [...] MD LAB BLOOD ORDERABLES Performing Organization Address [facility]/[place] [address], [place] [address] * Heparin Assay (Anti Xa) (10/24/2024 7:11 AM EST) [facility] Anti Xa 0.17 IU/mL 10/24/2024 8:02 AM EST [facility] Comment: (NOTE) Heparin Thromboembolic/Standard/Full [...] MD LAB BLOOD ORDERABLES Performing Organization Address [facility]/[place] [address], [place] [address] * Phosphorus (AM) (10/24/2024 7:11 AM EST) Phosphorus 4.5 2.7 - 4.5 mg/dL 10/24/2024 8:15 AM EST [facility] Blood (Plasma/Serum) 10/24/2024 7:11 AM EST 10/24/2024 7:48 AM EST Neymar Mcfarland MD LAB BLOOD ORDERAB LES Performing Organization Address [facility]/[place] [address], [place] [address] * Magnesium (AM) (10/24/2024 7:11 AM EST) Magnesium 1.8 1.6 - 2.7 mg/dL 10/24/2024 8:15 AM [facility] Blood (Plasma/Serum) 10/24/2024 7:11 AM EST 10/24/2024 7:48 AM EST Neymar Mcfarland MD LAB BLOOD ORDERAB LES Performing Organization Address City/[facility] [place] [address], [place] [address] * (ABNORMAL) Basic Metabolic Panel (AM) (10/24/2024 7:11 AM EST) Glucose 149(H) 65 - 99 mg/dL 10/24/2024 8:15 AM [facility] Comment:Fasting: <100 [...] LAB BLOOD ORDERAB LES Performing Organization Address City/State/[facility] [place] [address], [place] [address] * (ABNORMAL) Complete Blood Count WITHOUT Differential [...] LAB BLOOD ORDERAB LES Performing Organization Address City/[facility]/[place] [address], [place] [address] * Phosphorus (Early AM) (10/24/2024 3:01 AM EST) Phosphorus 3.8 2.7 - 4.5 mg/dL 10/24/2024 3:36 AM [facility] Blood (Plasma/Serum) 10/24/2024 3:01 AM EST 10/24/2024 3:12 AM EST Macy Adam DO LAB BLOOD ORDERABLE S Performing Organization Address City/[facility]/[place] [address], [place] [address] * Magnesium (Routine) (10/24/2024 3:01 AM EST) Magnesium 1.8 1.6 - 2.7 mg/dL 10/24/2024 3:36 AM [facility] Blood (Plasma/Serum) 10/24/2024 3:01 AM EST 10/24/2024 3:12 AM EST Macy Adam DO [place] [address], [place] [address] * (ABNORMAL) Basic Metabolic Panel (Routine) (10/24/2024 [...] - 25.0 Ratio 10/24/2024 3:36 AM EST [facility] Blood (Plasma/Serum) 10/24/2024 3:01 AM EST 10/24/2024 3:12 AM EST Macy Adam DO LAB BLOOD ORDERABLE S Performing Organization Address [facility] de Phone Number [facility] [address] [place] [address], [facility] [address] [place] [address] * (ABNORMAL) POCT Glucose, Fingerstick (10/24/2024 1:53 AM EST) POC Glucose 155(H) 65 - 99 mg/dL 10/24/2024 3:46 AM EST Blood specimen / Unknown 10/24/2024 1:53 AM EST 10/24/2024 3:46 AM EST Fuad Winter MD POINT OF CARE TEST ORDERABLES Performing Organization Address [facility] Co de Phone Number HOSPITAL LAB See Below * Heparin Assay (Anti Xa) (10/23/2024 10:13 PM EST) Anti Xa 0.34 IU/mL 10/23/2024 11:19 PM EST [facility] Comment: (NOTE) Heparin [...] LAB BLOOD ORDERAB LES Performing Organization Address [facility]/State/[facility] [place] [address], [place] [address] * (ABNORMAL) POCT Glucose, Fingerstick (10/23/2024 9:02 PM EST) POC Glucose 155(H) 65 - 99 mg/dL 10/23/2024 9:02 PM EST Blood specimen / Unknown 10/23/2024 9:02 PM EST 10/23/2024 9:03 PM EST Fuad Winter MD POINT OF CARE TEST ORDERABLES HOSPITAL LAB See Below * (ABNORMAL) POCT Glucose, Fingerstick (10/23/2024 6:22 PM EST) Pathologist [facility] POC Glucose 168(H) 65 - 99 mg/dL 10/23/2024 6:23 PM EST Blood specimen / Unknown 10/23/2024 6:22 PM EST 10/23/2024 6:23 PM EST Fuad Winter MD POINT OF CARE TEST ORDERABLES Performing Organization Address City/[facility]/ZIP Co de Phone Number HOSPITAL LAB See Below * Magnesium (STAT) (10/23/2024 6:02 PM EST) [facility] Magnesium 1.8 1.6 - 2.7 mg/dL 10/23/2024 7:21 PM EST [facility] Blood (Plasma/Serum) 10/23/2024 6:02 PM EST 10/23/2024 6:47 PM EST Adam Mullen MD LAB BLOOD ORDERABL ES Performing Organization Address [facility] [place] [address], [place] [address] * Phosphorus (STAT) (10/23/2024 6:02 PM EST) [facility] Phosphorus 3.9 2.7 - 4.5 mg/dL 10/23/2024 7:21 PM EST [facility] Blood (Plasma/Serum) 10/23/2024 6:02 PM EST 10/23/2024 6:47 PM EST Adam Mullen MD LAB BLOOD ORDERABL ES Performing Organization Address [facility] [place] [address], [place] [address] * (ABNORMAL) Basic Metabolic Panel (STAT) (10/23/2024 [...] Adam Mullen MD [place] [address], [place] [address] * ECG 12 lead (STAT) (10/23/2024 5:43 PM EST) Ventricular rate 73 BPM EKG [facility] Atrial rate 73 BPM EKG [facility] P-R interval 148 ms EKG [facility] QRS duration 80 ms EKG [facility] Q-T interval 460 ms EKG [facility] QTC calculation (Bazett) 507 ms EKG [facility] P axis 54 degrees EKG [facility] R axis 66 degrees EKG [facility] T axis 152 degrees EKG [facility] 10/23/2024 5:43 PM EST Narrative EKG [facility] - 10/24/2024 7:46 AM EST Normal sinus rhythm Nonspecific T wave abnormality Prolonged QT Abnormal ECG Confirmed by MD Wade John ([id number]) on 10/24/2024 7:46:04 AM Procedure Note Raciel Wade MD - 10/24/2024 Normal sinus rhythm Nonspecific T wave abnormality Prolonged QT Abnormal ECG Confirmed by MD Wade John ([id number]) on 10/24/2024 7:46:04 AM Bryant Gracia PA-C ECG ORDERABLES [facility] * Heparin Assay (Anti Xa) (10/23/2024 3:53 PM EST) Anti Xa 0.42 IU/mL 10/23/2024 5:30 PM EST [facility] Comment: (NOTE) Heparin [...] LAB BLOOD ORDERAB LES Performing Organization Address [facility]/State/[facility] [place] [address], [place] [address] * (ABNORMAL) POCT Glucose, Fingerstick (10/23/2024 12:59 PM EST) POC Glucose 158(H) 65 - 99 mg/dL 10/23/2024 1:00 PM EST Blood specimen / Unknown 10/23/2024 12:59 PM EST 10/23/2024 1:00 PM EST Fuad Winter MD POINT OF CARE TEST ORDERABLES HOSPITAL LAB See Below * Albumin (10/23/2024 10:31 AM EST) Albumin 3.5 3.4 - 4.8 g/dL 10/23/2024 12:13 PM [facility] Blood (Plasma/Serum) 10/23/2024 10:31 AM EST 10/23/2024 11:36 AM EST Neymar Mcfarland MD LAB BLOOD ORDERAB LES Performing Organization Address [facility] [place] [address], [place] [address] * (ABNORMAL) Calcium, Ionized (10/23/2024 10:31 AM EST) Calcium, Ionized 0.88(L) 1.17 - 1.33 mmol/L 10/23/2024 12:16 PM [facility] Blood Blood specimen / Unknown 10/23/2024 10:31 AM EST 10/23/2024 11:36 AM EST Neymar Mcfarland MD LAB BLOOD ORDERAB LES Performing Organization Address [facility] [place] [address], [place] [address] * (ABNORMAL) Calcium, Total (10/23/2024 10:31 AM EST) Calcium 7.4(L) 8.7 - 10.5 mg/dL 10/23/2024 12:13 PM [facility] Blood (Plasma/Serum) 10/23/2024 10:31 AM EST 10/23/2024 11:36 AM EST Neymar Mcfarland MD LAB BLOOD ORDERAB LES Performing Organization Address City/[facility]/[place] [address], [address] [address] * (ABNORMAL) PTH, Intact (10/23/2024 10:31 AM EST) PTH, Intact 579(H) 15 - 65 pg/mL 10/23/2024 12:23 PM EST [facility] Blood (Plasma/Serum) 10/23/2024 10:31 AM EST 10/23/2024 11:36 AM EST Neymar Mcfarland MD LAB BLOOD ORDERAB LES Performing Organization Address [facility]/ZIP [place] [address], [place] [address] * POCT Glucose, Fingerstick (10/23/2024 8:36 AM EST) Pathologist [facility] POC Glucose 82 65 - 99 mg/dL [...] MD LAB BLOOD ORDERABLES Performing Organization Address City/State/[facility] [place] [address], [place] [address] * Heparin Assay (Anti Xa) (10/23/2024 6:05 [...] MD LAB BLOOD ORDERABLES Performing Organization Address City/State/[facility] [place] [address], [place] [address] * Phosphorus (AM) (10/23/2024 6:05 AM EST) Phosphorus 3.9 2.7 - 4.5 mg/dL 10/23/2024 8:30 AM [facility] Blood (Plasma/Serum) 10/23/2024 6:05 AM EST 10/23/2024 7:46 AM EST Neymar Mcfarland MD LAB BLOOD ORDERAB LES Performing Organization Address [facility] [place] [address], [place] [address] * Magnesium (AM) (10/23/2024 6:05 AM EST) Magnesium 1.8 1.6 - 2.7 mg/dL 10/23/2024 8:30 AM [facility] Blood (Plasma/Serum) 10/23/2024 6:05 AM EST 10/23/2024 7:46 AM EST Neymar Mcfarland MD LAB BLOOD ORDERAB LES Performing Organization Address City/[facility] [place] [address], [place] [address] * (ABNORMAL) Basic Metabolic Panel (AM) (10/23/2024 [...] Neymar Mcfarland MD LAB [place] [address], [place] [address] * (ABNORMAL) Complete Blood Count WITHOUT Differential [...] - 36.0 g/dL 10/23/2024 8:29 AM EST [facility] RDW 16.4(H) 11.5 - 14.5 % 10/23/2024 8:29 AM EST [facility] MPV 11.6 7.5 - 12.5 fL 10/23/2024 8:29 AM EST [facility] Blood Blood specimen / Unknown 10/23/2024 6:05 AM EST 10/23/2024 7:46 AM EST Neymar Mcfarland MD LAB BLOOD ORDERAB LES Performing Organization Address City/[facility]/[place]IP [place] [address], [place] [address] * POCT Glucose, Fingerstick (10/23/2024 1:59 AM EST) POC Glucose 83 65 - 99 mg/dL 10/23/2024 2:00 AM EST Blood specimen / Unknown 10/23/2024 1:59 AM EST 10/23/2024 2:00 AM EST Fuad Winter MD POINT OF CARE TEST ORDERABLES Performing Organization Address City/[facility] Co de Phone Number [facility] LAB See Below * (ABNORMAL) POCT Glucose, Fingerstick (10/22/2024 8:40 PM EST) POC Glucose 145(H) 65 - 99 mg/dL 10/22/2024 8:53 PM EST Blood specimen / Unknown 10/22/2024 8:40 PM EST 10/22/2024 8:53 PM EST Fuad Winter MD POINT OF CARE TEST ORDERABLES [facility] LAB See Below * (ABNORMAL) POCT Glucose, Fingerstick (10/22/2024 6:12 PM EST) POC Glucose 165(H) 65 - 99 mg/dL 10/22/2024 6:12 PM EST Blood specimen / Unknown 10/22/2024 6:12 PM EST 10/22/2024 6:13 PM EST Fuad Winter MD POINT OF CARE TEST ORDERABLES Performing Organization Address [facility] LAB See Below * (ABNORMAL) POCT Glucose, Fingerstick (10/22/2024 1:10 PM EST) POC Glucose 154(H) 65 - 99 mg/dL 10/22/2024 1:10 PM EST Blood specimen / Unknown 10/22/2024 1:10 PM EST 10/22/2024 1:11 PM EST Fuad Winter MD POINT OF CARE TEST ORDERABLES Performing Organization Address [facility] LAB See Below * (ABNORMAL) POCT Glucose, Fingerstick (10/22/2024 9:10 AM EST) POC Glucose 139(H) 65 - 99 mg/dL 10/22/2024 9:11 AM EST Blood specimen / Unknown 10/22/2024 9:10 AM EST 10/22/2024 9:11 AM EST Fuad Winter MD POINT OF CARE TEST ORDERABLES Performing Organization Address [facility] LAB See Below * Heparin Assay (Anti Xa) (10/22/2024 8:12 AM EST) Anti Xa 0.37 IU/mL 10/22/2024 8:35 AM EST [facility] Comment: (NOTE) Heparin Thromboembolic/Standard/Full [...] EST Adilia Woo MD LAB BLOOD ORDERABLES [facility] [address] [place] [address], [facility] [address] [place] [address] * (ABNORMAL) Complete Blood Count WITHOUT Differential [...] MD LAB BLOOD ORDERABLES Performing Organization Address City/State/[facility] [place] [address], [place] [address] * Magnesium (AM) (10/22/2024 8:12 AM EST) Pathologist [facility] Magnesium 1.7 1.6 - 2.7 mg/dL 10/22/2024 8:54 AM [facility] Blood (Plasma/Serum) 10/22/2024 8:12 AM EST 10/22/2024 8:18 AM EST Adilia Woo MD [place] [address], [place] [address] * (ABNORMAL) Basic Metabolic Panel (AM) (10/22/2024 [...] EST Adilia Woo MD [place] [address], [address] [place] [address] * (ABNORMAL) POCT Glucose, Fingerstick (10/22/2024 1:23 AM EST) POC Glucose 122(H) 65 - 99 mg/dL 10/22/2024 1:28 AM EST Blood specimen / Unknown 10/22/2024 1:23 AM EST 10/22/2024 1:28 AM EST Fuad Winter MD POINT OF CARE TEST ORDERABLES HOSPITAL LAB See Below * ECG 12 lead (10/21/2024 9:45 PM EST) [facility] Ventricular rate 80 BPM EKG [facility] Atrial rate 80 BPM EKG [facility]-R interval 146 ms [facility] 86 ms EKG [facility] Q-T interval 438 ms EKG [facility] QTC calculation (Bazett) 506 ms EKG [facility] P axis 52 degrees EKG [facility] R axis 59 degrees EKG [facility] T axis 229 degrees EKG [facility] 10/21/2024 9:45 PM EST Narrative EKG [facility] - 10/22/2024 7:57 AM EST Normal [...] Hanson MD ECG ORDERABLES Performing Organization Address City/[facility]/ZIP Co de Phone Number [facility] * (ABNORMAL) POCT Glucose, Fingerstick (10/21/2024 9:04 PM EST) POC Glucose 190(H) 65 - 99 mg/dL 10/21/2024 9:09 PM EST Blood specimen / Unknown 10/21/2024 9:04 PM EST 10/21/2024 9:09 PM EST Fuad Winter MD POINT OF CARE TEST ORDERABLES Performing Organization Address [facility] Number [facility] LAB See Below * (ABNORMAL) POCT Glucose, Fingerstick (10/21/2024 6:23 PM EST) POC Glucose 140(H) 65 - 99 mg/dL 10/21/2024 6:24 PM EST Blood specimen / Unknown 10/21/2024 6:23 PM EST 10/21/2024 6:24 PM EST Fuad Winter MD POINT OF CARE TEST ORDERABLES Performing Organization Address [facility] Number [facility] LAB See Below * (ABNORMAL) POCT Glucose, Fingerstick (10/21/2024 1:38 PM EST) POC Glucose 270(H) 65 - 99 mg/dL 10/21/2024 1:39 PM EST Blood specimen / Unknown 10/21/2024 1:38 PM EST 10/21/2024 1:39 PM EST Fuad Winter MD POINT OF CARE TEST ORDERABLES Performing Organization Address [facility] Number [facility] LAB See Below * (ABNORMAL) POCT [...] Xa 0.42 IU/mL 10/21/2024 9:49 AM EST [facility] Comment: (NOTE) Heparin Thromboembolic/Standard/Full [...] MD LAB BLOOD ORDERABLES Performing Organization Address [facility] [place] [address], [place] [address] * (ABNORMAL) POCT Glucose, Fingerstick (10/21/2024 8:35 AM EST) POC Glucose 219(H) 65 - 99 mg/dL 10/21/2024 8:36 AM EST Blood specimen / Unknown 10/21/2024 8:35 AM EST 10/21/2024 8:36 AM EST Fuad Winter MD POINT OF CARE TEST ORDERABLES Performing Organization Address [facility] Phone Number HOSPITAL LAB See Below * (ABNORMAL) POCT Glucose, Fingerstick (10/21/2024 8:03 AM EST) POC Glucose 181(H) 65 - 99 mg/dL 10/21/2024 8:04 AM EST Blood specimen / Unknown 10/21/2024 8:03 AM EST 10/21/2024 8:04 AM EST Fuad Winter MD POINT OF CARE TEST ORDERABLES Performing Organization Address [facility] de Phone Number HOSPITAL LAB See [...] EST Magdaleno Crowder MD [place] [address], [address] [address] * (ABNORMAL) Complete Blood Count WITHOUT Differential [...] MD LAB BLOOD ORDERABLES Performing Organization Address City/State/[facility] [place] [address], [place] [address] * Heparin Assay (Anti Xa) (10/21/2024 3:09 [...] MD LAB BLOOD ORDERABLES Performing Organization Address [facility]/State/[facility] [place] [address], [facility] [address] [place] [address] * (ABNORMAL) POCT Glucose, Fingerstick (10/21/2024 2:23 AM EST) POC Glucose 198(H) 65 - 99 mg/dL 10/21/2024 2:23 AM EST Blood specimen / Unknown 10/21/2024 2:23 AM EST 10/21/2024 2:24 AM EST Fuad Winter MD POINT OF CARE TEST ORDERABLES Performing Organization Address [facility] Phone Number HOSPITAL LAB See Below * (ABNORMAL) POCT Glucose, Fingerstick (10/20/2024 8:47 PM EST) Pathologist [facility] POC Glucose 218(H) 65 - 99 mg/dL 10/20/2024 8:50 PM EST Blood specimen / Unknown 10/20/2024 8:47 PM EST 10/20/2024 8:50 PM EST Fuad Winter MD POINT OF CARE TEST ORDERABLES Performing Organization Address [facility] Phone Number HOSPITAL LAB See Below * Heparin Assay (Anti Xa) (10/20/2024 8:34 PM EST) Pathologist [facility] Anti Xa 0.29 IU/mL 10/20/2024 9:00 PM EST [facility] Comment: (NOTE) Heparin [...] MD LAB BLOOD ORDERABLES Performing Organization Address City/State/[facility] [place] [address], [place] [address] * (ABNORMAL) POCT Glucose, Fingerstick (10/20/2024 5:51 PM EST) POC Glucose 175(H) 65 - 99 mg/dL 10/20/2024 5:52 PM EST Blood specimen / Unknown 10/20/2024 5:51 PM EST 10/20/2024 5:52 PM EST Fuad Winter MD POINT OF CARE TEST ORDERABLES Performing Organization Address [facility] de Phone Number [facility] See Below * (ABNORMAL) POCT Glucose, Fingerstick (10/20/2024 3:47 PM EST) POC Glucose 222(H) 65 - 99 mg/dL 10/20/2024 3:52 PM EST Blood specimen / Unknown 10/20/2024 3:47 PM EST 10/20/2024 3:52 PM EST Fuad Winter MD POINT OF CARE TEST ORDERABLES Performing Organization Address [facility] de Phone Number [facility] See Below * (ABNORMAL) POCT Glucose, Fingerstick (10/20/2024 11:43 AM EST) POC Glucose 210(H) 65 - 99 mg/dL 10/20/2024 11:45 AM EST Blood specimen / Unknown 10/20/2024 11:43 AM EST 10/20/2024 11:44 AM EST Fuad Winter MD POINT OF CARE TEST ORDERABLES Performing Organization Address [facility] Phone Number [facility] See Below * (ABNORMAL) Blood Gas, Venous (10/20/2024 10:39 AM EST) Pathologist [facility] Venous Blood PH 7.29(L) 7.33 - 7.43 10/20/2024 10:54 AM EST [facility] Venous pCO2 39 35 - 50 mmHG 10/20/2024 10:54 AM [facility] Venous pO2 49 0 - 60 mmHG 10/20/2024 10:54 AM EST [facility] Venous Total CO2 20(L) 23 - 29 mmol/L 10/20/2024 10:54 AM EST [facility] Respiratory Info NASAL 4 L/MIN 10/20/2024 10:39 AM EST Base Deficiency 7.2 mmol/L 10:54 AM [facility] Comment:Reference Range: Neg ative 2 to Positive 3 Blood Blood specimen / Unknown 10/20/2024 10:39 AM EST 10/20/2024 10:47 AM EST Kristopher Hickey MD LAB BLOOD ORDERAB LES Performing Organization Address [facility] Co de Phone Number [address] [address], [address] [address] * (ABNORMAL) POCT Glucose, Fingerstick (10/20/2024 10:37 AM EST) POC Glucose 187(H) 65 - 99 mg/dL 10/20/2024 10:37 AM EST Blood specimen / Unknown 10/20/2024 10:37 AM EST 10/20/2024 10:38 AM EST Fuad Winter MD POINT OF CARE TEST ORDERABLES Performing Organization Address City/[facility] Co de Phone Number HOSPITAL LAB See Below * Lactic Acid, Plasma (STAT) (10/20/2024 10:00 AM EST) Lactic Acid 0.8 0.5 - 1.9 mmol/L 10/20/2024 10:37 AM EST [facility] Blood Plasma specimen / Unknown 10/20/2024 10:00 AM EST 10/20/2024 10:07 AM EST Kristopher Hickey MD LAB BLOOD ORDERAB LES Performing Organization Address [facility] Co de Phone Number [address] [address], [address] [address] * (ABNORMAL) POCT Glucose, Fingerstick (10/20/2024 7:48 AM EST) POC Glucose 156(H) 65 - 99 mg/dL 10/20/2024 7:49 AM EST Blood specimen / Unknown 10/20/2024 7:48 AM EST 10/20/2024 7:49 AM EST Fuad Winter MD POINT OF CARE TEST ORDERABLES Performing Organization Address City/[facility]/ZIP Co de Phone Number [facility] See Below * (ABNORMAL) POCT Glucose, Fingerstick (10/20/2024 5:43 AM EST) POC Glucose 148(H) 65 - 99 mg/dL 10/20/2024 5:44 AM EST Blood specimen / Unknown 10/20/2024 5:43 AM EST 10/20/2024 5:44 AM EST Fuad Winter MD POINT OF CARE TEST ORDERABLES Performing Organization Address City/[facility]/ZIP Co de Phone Number [facility] See Below * (ABNORMAL) POCT Glucose, Fingerstick (10/20/2024 2:15 AM EST) Pathologist [facility] POC Glucose 219(H) 65 - 99 mg/dL 10/20/2024 2:16 AM EST Blood specimen / Unknown 10/20/2024 2:15 AM EST 10/20/2024 2:16 AM EST Fuad Winter MD POINT OF CARE TEST ORDERABLES Performing Organization Address [facility] Co de Phone Number [facility] See Below * Phosphorus (Routine) (10/19/2024 11:59 PM EST) [facility] Phosphorus 4.4 2.7 - 4.5 mg/dL 10/20/2024 1:00 AM [facility] Blood (Plasma/Serum) 10/19/2024 11:59 PM EST 10/20/2024 12:25 AM EST Kristopher Hickey MD LAB BLOOD ORDERAB LES Performing Organization Address [facility] [place] [address], [place] [address] * Magnesium (Routine) (10/19/2024 11:59 PM EST) Pathologist [facility] Magnesium 1.6 1.6 - 2.7 mg/dL 10/20/2024 1:00 AM [facility] Blood (Plasma/Serum) 10/19/2024 11:59 PM EST 10/20/2024 12:25 AM EST Kristopher Hickey MD LAB BLOOD ORDERAB LES Performing Organization Address City/State/[facility] [place] [address], [address] [address] * (ABNORMAL) Complete Blood Count, with Differential [...] Fuad Winter MD LAB [place] [address], [place] [address] * (ABNORMAL) Basic Metabolic Panel (Routine) (10/19/2024 [...] EST Magdaleno Crowder MD [place] [address], [place] [address] * Heparin Assay (Anti Xa) (10/19/2024 11:59 [...] LAB BLOOD ORDERAB LES Performing Organization Address City/State/[facility] [place] [address], [place] [address] * (ABNORMAL) POCT Glucose, Fingerstick (10/19/2024 8:00 PM EST) POC Glucose 132(H) 65 - 99 mg/dL 10/20/2024 2:16 AM EST Blood specimen / Unknown 10/19/2024 8:00 PM EST 10/20/2024 2:16 AM EST Fuad Winter MD POINT OF CARE TEST ORDERABLES Performing Organization Address [facility] LAB See Below * (ABNORMAL) POCT Glucose, Fingerstick (10/19/2024 6:53 PM EST) POC Glucose 165(H) 65 - 99 mg/dL 10/19/2024 6:54 PM EST Blood specimen / Unknown 10/19/2024 6:53 PM EST 10/19/2024 6:54 PM EST Fuad Winter MD POINT OF CARE TEST ORDERABLES Performing Organization Address [facility] LAB See Below * (ABNORMAL) POCT Glucose, Fingerstick (10/19/2024 5:42 PM EST) POC Glucose 114(H) 65 - 99 mg/dL 10/19/2024 5:43 PM EST Blood specimen / Unknown 10/19/2024 5:42 PM EST 10/19/2024 5:43 PM EST Fuad Winter MD POINT OF CARE TEST ORDERABLES Performing Organization Address [facility] LAB See Below * (ABNORMAL) POCT Glucose, Fingerstick (10/19/2024 4:33 PM EST) POC Glucose 159(H) 65 - 99 mg/dL 10/19/2024 4:34 PM EST Blood specimen / Unknown 10/19/2024 4:33 PM EST 10/19/2024 4:34 PM EST Fuad Winter MD POINT OF CARE TEST ORDERABLES Performing Organization Address [facility] LAB See Below * (ABNORMAL) [...] EST Pushpa Gallegos MD [place] [address], [place] [address] * (ABNORMAL) Hemoglobin and Hematocrit (10/19/2024 2:25 PM EST) Hematocrit 32.3(L) 39.0 - 54.0 % 10/19/2024 3:39 PM [facility] Hemoglobin 9.9(L) 13.0 - 17.7 g/dL 10/19/2024 3:39 PM EST [facility] Blood Blood specimen / Unknown 10/19/2024 2:25 PM EST 10/19/2024 3:31 PM EST Kristopher Hickey MD LAB BLOOD ORDERAB LES Performing Organization Address City/State/[facility] Co de Phone Number [facility] [address] [place] [address], [facility] [address] [place] [address] * Heparin Assay (Anti Xa) (10/19/2024 2:25 [...] LAB BLOOD ORDERAB LES Performing Organization Address [facility]/State/[facility] [place] [address], [place] [address] * (ABNORMAL) Blood Gas, Venous (10/19/2024 2:25 [...] MD LAB BLOOD ORDERABLES Performing Organization Address [facility] Co de Phone Number [address] [address], [address] [address] * (ABNORMAL) POCT Glucose, Fingerstick (10/19/2024 1:52 PM EST) POC Glucose 133(H) 65 - 99 mg/dL 10/19/2024 1:53 PM EST Blood specimen / Unknown 10/19/2024 1:52 PM EST 10/19/2024 1:53 PM EST Fuad Winter MD POINT OF CARE TEST ORDERABLES Performing Organization Address [facility] Co de Phone Number [facility] See Below * (ABNORMAL) POCT Glucose, Fingerstick (10/19/2024 11:40 AM EST) POC Glucose 145(H) 65 - 99 mg/dL 10/19/2024 11:41 AM EST Blood specimen / Unknown 10/19/2024 11:40 AM EST 10/19/2024 11:41 AM EST Fuad Winter MD POINT OF CARE TEST ORDERABLES Performing Organization Address [facility] Co de Phone Number [facility] See Below * B-Hydroxybutyrate (10/19/2024 11:34 AM EST) B-Hydroxybutyrate 0.26 <0.28 mmol/L 10/19/2024 4:15 PM EST [facility] Comment: In the presence of [...] MD LAB BLOOD ORDERABLES Performing Organization Address City/[facility]/ZIP [place] [address], [place] [address] * (ABNORMAL) High Sensitivity Troponin T (10/19/2024 11:34 AM EST) Pathologist [facility] High Sensitivity Troponin T 4,276(HH) <23 ng/L 10/19/2024 3:44 PM [facility] Comment:Recurring Critical R esult. Previously phoned. Delta (Change) 2,446(H) <3 10/19/2024 3:44 PM [facility] Comment:Increased Plasma/Serum 10/19/2024 11:3 4 AM EST 10/19/2024 11:54 AM EST Pushpa Gallegos MD LAB BLOOD ORDERABLES Performing Organization Address City/[facility] [place] [address], [place] [address] * (ABNORMAL) Basic Metabolic Panel (10/19/2024 11:34 AM EST) [facility] Glucose 128(H) 65 - 99 mg/dL 10/19/2024 [...] MD LAB BLOOD ORDERABLES Performing Organization Address [facility]/ZIP [place] [address], [place] [address] * (ABNORMAL) Blood Gas, Venous (10/19/2024 10:36 [...] MD LAB BLOOD ORDERABLES Performing Organization Address City/[facility]/ZIP Co de Phone Number [address] [address], [address] [address] * (ABNORMAL) POCT Glucose, Fingerstick (10/19/2024 10:34 AM EST) POC Glucose 131(H) 65 - 99 mg/dL 10/19/2024 10:34 AM EST Blood specimen / Unknown 10/19/2024 10:34 AM EST 10/19/2024 10:35 AM EST Fuad Winter MD POINT OF CARE TEST ORDERABLES Performing Organization Address [facility] LAB See Below * (ABNORMAL) POCT Glucose, Fingerstick (10/19/2024 9:08 AM EST) POC Glucose 146(H) 65 - 99 mg/dL 10/19/2024 9:08 AM EST Blood specimen / Unknown 10/19/2024 9:08 AM EST 10/19/2024 9:09 AM EST Fuad Winter MD POINT OF CARE TEST ORDERABLES Performing Organization Address [facility] LAB See Below * (ABNORMAL) POCT Glucose, Fingerstick (10/19/2024 7:58 AM EST) POC Glucose 118(H) 65 - 99 mg/dL 10/19/2024 8:00 AM EST Blood specimen / Unknown 10/19/2024 7:58 AM EST 10/19/2024 7:59 AM EST Fuad Winter MD POINT OF CARE TEST ORDERABLES Performing Organization Address [facility] LAB See Below * Heparin Assay (Anti Xa) (10/19/2024 7:44 AM EST) Anti Xa 0.36 IU/mL 10/19/2024 8:39 AM EST [facility] Comment: (NOTE) Heparin Thromboembolic/Standard/Full [...] LAB BLOOD ORDERAB LES Performing Organization Address [facility]/[place] [address], [address] [address] * (ABNORMAL) Basic Metabolic Panel (10/19/2024 7:44 [...] EST Pushpa Gallegos MD LAB BLOOD ORDERABLES [address] [place] [address], [address] [address] * (ABNORMAL) POCT Glucose, Fingerstick (10/19/2024 6:38 AM EST) [facility] POC Glucose 148(H) 65 - 99 mg/dL 10/19/2024 6:39 AM EST Blood specimen / Unknown 10/19/2024 6:38 AM EST 10/19/2024 6:39 AM EST Fuad Winter MD POINT OF CARE TEST ORDERABLES Performing Organization Address [facility] Co de Phone Number [facility] See Below * (ABNORMAL) POCT Glucose, Fingerstick (10/19/2024 5:25 AM EST) [facility] POC Glucose 169(H) 65 - 99 mg/dL 10/19/2024 5:29 AM EST Blood specimen / Unknown 10/19/2024 5:25 AM EST 10/19/2024 5:29 AM EST Fuad Winter MD POINT OF CARE TEST ORDERABLES Performing Organization Address [facility] Phone Number [facility] See Below * (ABNORMAL) High Sensitivity Troponin T (10/19/2024 5:15 AM EST) [facility] High Sensitivity Troponin T 4,239(HH) <23 ng/L 10/19/2024 7:11 AM [facility] Comment:Recurring Critical R esult. Previously phoned. Delta (Change) 2,409(H) <3 10/19/2024 7:11 AM [facility] Comment:Increased Blood (Plasma/Serum) 10/19/2024 5:15 AM EST 10/19/2024 6:04 AM EST Pushpa Gallegos MD LAB BLOOD ORDERABLES Performing Organization Address [facility] [place] [address], [place] [address] * (ABNORMAL) BASIC METABOLIC PANEL (10/19/2024 4:15 [...] Fuad Winter MD LAB BLOOD ORD ERABLES [facility] [address] [place] [address], [address] [address] * (ABNORMAL) POCT Glucose, Fingerstick (10/19/2024 4:14 AM EST) POC Glucose 154(H) 65 - 99 mg/dL 10/19/2024 4:15 AM EST Blood specimen / Unknown 10/19/2024 4:14 AM EST 10/19/2024 4:15 AM EST Fuad Winter MD POINT OF CARE TEST ORDERABLES Performing Organization Address [facility] Co ut Phone Number HOSPITAL LAB See Below * (ABNORMAL) POCT Glucose, Fingerstick (10/19/2024 2:45 AM EST) POC Glucose 192(H) 65 - 99 mg/dL 10/19/2024 2:46 AM EST Blood specimen / Unknown 10/19/2024 2:45 AM EST 10/19/2024 2:46 AM EST Fuad Winter MD POINT OF CARE TEST ORDERABLES Performing Organization Address [facility] Phone Number HOSPITAL LAB See Below * Heparin Assay (Anti Xa) (10/19/2024 1:54 AM EST) Pathologist [facility] Anti Xa 0.25 IU/mL 10/19/2024 2:28 AM EST [facility] Comment: (NOTE) Heparin Thromboembolic/Standard/Full [...] LAB BLOOD ORDERAB LES Performing Organization Address City/[facility] [place] [address], [place] [address] * (ABNORMAL) POCT Glucose, Fingerstick (10/19/2024 1:35 AM EST) POC Glucose 160(H) 65 - 99 mg/dL 10/19/2024 1:36 AM EST Blood specimen / Unknown 10/19/2024 1:35 AM EST 10/19/2024 1:36 AM EST Fuad Winter MD POINT OF CARE TEST ORDERABLES Performing Organization Address City/[facility]/ZIP Co de Phone Number HOSPITAL LAB See [...] MD LAB BLOOD ORDERABLES Performing Organization Address City/[facility]/ZIP [place] [address], [place] [address] * Phosphorus (Routine) (10/19/2024 1:20 AM EST) Phosphorus 4.2 2.7 - 4.5 mg/dL 10/19/2024 2:39 AM [facility] Blood (Plasma/Serum) 10/19/2024 1:20 AM EST 10/19/2024 2:17 AM EST Pushpa Gallegos MD [place] [address], [place] [address] * Magnesium (Routine) (10/19/2024 1:20 AM EST) Magnesium 1.7 1.6 - 2.7 mg/dL 10/19/2024 2:39 AM EST [facility] Blood (Plasma/Serum) 10/19/2024 1:20 AM EST 10/19/2024 2:17 AM EST Pushpa Gallegos MD LAB BLOOD ORDERABLES Performing Organization Address [facility] [place] [address], [place] [address] * (ABNORMAL) High Sensitivity Troponin T (Once) (10/19/2024 1:20 AM EST) [facility] High Sensitivity Troponin T 4,171(HH) <23 ng/L 10/19/2024 2:39 AM [facility] Comment:Recurring Critical R esult. Previously phoned. Delta (Change) 2,341(H) <3 10/19/2024 2:39 AM [facility] Comment:Increased Blood (Plasma/Serum) 10/19/2024 1:20 AM EST 10/19/2024 2:17 AM EST Pushpa Gallegos MD LAB BLOOD ORDERABLES Performing Organization Address [facility] [place] [address], [place] [address] * (ABNORMAL) Complete Blood Count, WITHOUT Differential (routine) (10/19/2024 1:20 AM EST) [facility] White Blood Cell Count 15.9(H) 4.0 - [...] - 31.0 pg 10/19/2024 2:31 AM EST [facility] MCHC 31.5 30.0 - 36.0 g/dL 10/19/2024 2:31 AM EST [facility] RDW 16.2(H) 11.5 - 14.5 % 10/19/2024 2:31 AM EST [facility] MPV 11.5 7.5 - 12.5 fL 10/19/2024 2:31 AM EST [facility] Blood Blood specimen / Unknown 10/19/2024 1:20 AM EST 10/19/2024 2:17 AM EST Pushpa Gallegos MD LAB BLOOD ORDERABLES Performing Organization Address City/[facility]/ZIP [place] [address], [place] [address] * (ABNORMAL) POCT Glucose, Fingerstick (10/19/2024 12:16 AM EST) POC Glucose 106(H) 65 - 99 mg/dL 10/19/2024 12:17 AM EST Blood specimen / Unknown 10/19/2024 12:16 AM EST 10/19/2024 12:17 AM EST Fuad Winter MD POINT OF CARE TEST ORDERABLES HOSPITAL LAB See Below * ECG 12 lead (10/19/2024 12:02 AM EST) Systolic BP 128 mmHg EKG [facility] Diastolic BP 67 mmHg EKG [facility] Ventricular rate 86 BPM EKG [facility] Atrial rate 86 BPM EKG [facility] P-R interval 162 ms EKG [facility] QRS duration 78 ms EKG [facility] Q-T interval 372 ms EKG [facility] QTC calculation (Bazett) 445 ms EKG [facility] P axis 42 degrees EKG [facility] R axis 60 degrees EKG [facility] T axis 224 degrees EKG [facility] 10/19/2024 12:0 2 AM EST Narrative EKG [facility] - 10/19/2024 5:46 AM EST Normal sinus rhythm Early Transition Nonspecific ST and T wave abnormality Abnormal ECG Confirmed by MD Wade John ([id number]) on 10/19/2024 5:46:29 AM Procedure Note Raciel Wade MD - 10/19/2024 Normal sinus rhythm Early Transition Nonspecific ST and T wave abnormality Abnormal ECG Confirmed by MD Wade John ([id number]) on 10/19/2024 5:46:29 AM Fuad Winter MD ECG ORDERABLE S Performing Organization Address City/[facility]/ZIP Co de Phone Number [facility] * (ABNORMAL) POCT Glucose, Fingerstick (10/18/2024 [...] Fuad Winter MD LAB [place] [address], [place] [address] * (ABNORMAL) Blood Gas, Venous (10/18/2024 11:11 [...] [facility] Respiratory Info VM 50% 10/18/19 25 5:04 PM EST Base Deficiency 9.7 mmol/L 11:50 PM [facility] Comment:Reference Range: Neg ative 2 to Positive 3 Blood Blood specimen / Unknown 10/18/2024 11:11 PM EST 10/18/2024 11:45 PM EST Pushpa Gallegos MD [place] [address], [address] [address] * (ABNORMAL) BASIC METABOLIC PANEL (10/18/2024 10:15 [...] Fuad Winter MD LAB [place] [address], [place] [address] * Lactic Acid, Plasma (Routine) (10/18/2024 10:13 PM EST) Lactic Acid 1.2 0.5 - 1.9 mmol/L 10/18/2024 10:56 PM EST [facility] Blood Plasma specimen / Unknown 10/18/2024 10:13 PM EST 10/18/2024 10:21 PM EST Pushpa Gallegos MD [place] [address], [place] [address] * (ABNORMAL) POCT Glucose, Fingerstick (10/18/2024 10:06 [...] OF CARE TEST ORDERABLES Performing Organization Address [facility] Number [facility] See Below * (ABNORMAL) POCT Glucose, Fingerstick (10/18/2024 8:16 PM EST) Pathologist [facility] POC Glucose 168(H) 65 - 99 mg/dL 10/18/2024 8:17 PM EST Blood specimen / Unknown 10/18/2024 8:16 PM EST 10/18/2024 8:17 PM EST Fuad Winter MD POINT OF CARE TEST ORDERABLES Performing Organization Address [facility] Co ut Phone Number [facility] See Below * (ABNORMAL) Blood Gas, Venous (10/18/2024 7:14 PM EST) Pathologist [facility] Venous Blood PH 7.31(L) 7.33 - 7.43 10/18/2024 7:25 PM EST [facility] Venous pCO2 32(L) 35 - 50 mmHG 10/18/2024 7:25 PM EST [facility] Venous pO2 182(H) 0 - 60 mmHG 10/18/2024 7:25 PM EST [facility] Venous Total CO2 16(L) 23 - 29 mmol/L 10/18/2024 7:25 PM EST [facility] Respiratory Info VM 50% 10/18/19 5:04 PM EST Base Deficiency 9.7 mmol/L 7:25 PM [facility] Comment:Reference Range: Neg ative 2 to Positive 3 Blood Blood specimen / Unknown 10/18/2024 7:14 PM EST 10/18/2024 7:21 PM EST Pushpa Gallegos MD [place] [address], [address] [address] * (ABNORMAL) Basic Metabolic Panel (10/18/2024 7:14 [...] Fuad Winter MD LAB BLOOD ORD ERABLES [address] [address], [address] [address] * (ABNORMAL) POCT Glucose, Fingerstick (10/18/2024 7:13 PM EST) POC Glucose 166(H) 65 - 99 mg/dL 10/18/2024 7:15 PM EST Blood specimen / Unknown 10/18/2024 7:13 PM EST 10/18/2024 7:15 PM EST Fuad Winter MD POINT OF CARE TEST ORDERABLES Performing Organization Address City/[facility] Co de Phone Number HOSPITAL LAB [...] Sample left with bedside RN. ACCESS: 6 Uzbek Xxbk-W-Ewtoybbn closed needle/catheter system ?? REQUESTING PRACTITIONER: Cheryl [...] adjacent organs or vascular structures. A 6 Uzbek Sndr-Q-Etlqmdju closed needle/catheter system was utilized for access. [...] adjacent organs or vascular structures. A 6 Uzbek Kxqn-D-Arbwzafg closed needle/catheter system was utilized for access. 550 mL of clear devorah fluid was aspirated before drainage ceased. The catheter was removed and a sterile dressing applied. The patient tolerated the procedure well without evidence of complications. ?? Pushpa Gallegos MD [facility] ORDERABLES * (ABNORMAL) POCT Glucose, Fingerstick [...] GENERAL ORDERABLES [facility] [address] [employer] [address] * Body Fluid Culture (aerobic, anaerobic and Gram stain) (10/18/2024 5:55 PM EST) Gram stain suggestive of Few neutrophils Mononuclear cells No organisms seen 10/18/2024 9:52 PM EST [facility] Culture No aerobes and anaerobes isolated after 7 days 10/25/2024 3:19 PM [facility] 10/18/2024 5:55 PM EST 10/18/2024 7:53 PM EST Fuad Winter MD MICROBIOLOGY - GENERAL ORDERABLES Performing Organization Address City/[facility] Co de Phone Number [facility] [address] [place] [address], [address] [address] * Protein, Body Fluid (10/18/2024 5:50 PM EST) Source RIGHT PLEURAL EFFUSION 10/18/2024 6:49 PM EST [facility] Protein, Body Fluid 2.2 g/dL 10/18/2024 7:15 PM EST [facility] Comment:The reference interv al(s) and other method performance specifications are unavailable for this body fluid. Comparison of this result with the concentration in the blood, serum, or plasma is recommended. 10/18/2024 5:50 PM EST 10/18/2024 6:49 PM EST Fuad Winter MD BODY FLUIDS A ND STOOLS ORDERABLES Performing Organization Address [facility] [place] [address], [place] [address] * PH, BODY FLUID (10/18/2024 5:50 PM EST) Source RIGHT PLEURAL EFFUSION 10/18/2024 6:49 PM EST [facility] pH, Body Fluid 7.34 10/18/2024 7:14 PM EST [facility] 10/18/2024 5:50 PM EST 10/18/2024 6:49 PM EST Fuad Winter MD BODY FLUIDS A ND STOOLS ORDERABLES Performing Organization Address [facility] [place] [address], [place] [address] * Glucose, Body Fluid (10/18/2024 5:50 PM [...] A ND STOOLS ORDERABLES Performing Organization Address [facility] [place] [address], [place] [address] * Cell Count, Reflex Differential, Body Fluid (10/18/2024 5:50 PM EST) Appearance, Body Fluid Cloudy 10/18/2024 8:25 PM [facility] Color [place] 10/18/2024 8:25 PM [facility] [...] MD BODY FLUIDS A [place] [address], [place] [address] * Culture - Pleural Fluid (aerobic, anaerobic [...] - GENER AL ORDERABLES Performing Organization Address [facility] Co de Phone Number [facility] [address] [place] [address], [place] [address] * Protein - Pleural Fluid (10/18/2024 5:39 PM EST) Source PLEURAL 10/18/2024 5:40 PM EST Protein, Body Fluid 2.2 g/dL 10/18/2024 7:27 PM EST [facility] Comment:The [...] AND STOO LS ORDERABLES Performing Organization Address [facility] [place] [address], [place] [address] * pH - Pleural Fluid (not avail at [place]) (10/18/2024 5:39 PM EST) Source PLEURAL 10/18/2024 5:40 PM EST pH, Body Fluid 7.33 10/18/2024 7:15 PM EST [facility] Body Fluid Specimen from pleura obtained by thoracentesis / Unknown 10/18/2024 5:39 PM EST 10/18/2024 6:57 PM EST Pushpa Gallegos MD BODY FLUIDS AND STOO LS ORDERABLES Performing Organization Address [facility] [place] [address], [place] [address] * LDH - Pleural Fluid (10/18/2024 5:39 [...] AND STOO LS ORDERABLES Performing Organization Address [facility] [place] [address], [place] [address] * Glucose - Pleural Fluid (10/18/2024 5:39 [...] AND STOO LS ORDERABLES Performing Organization Address [facility] [place] [address], [place] [address] * Cell Count, Reflex Differential, Body Fluid (10/18/2024 5:39 PM EST) Appearance, Body Fluid Cloudy 10/18/2024 8:22 PM EST [facility] Color [place] 10/18/2024 8:22 PM [facility] Nucleated Cells, Fluid 721 /CUMM 10/18/2024 8:22 PM [facility] RBC, Fluid 10,000 /CUMM 10/18/2024 8:22 PM [facility] Neutrophil, Body Fluid 0 % 10/18/2024 8:22 PM EST [facility] Lymphoctye, Body Fluid 57 % 10/18/2024 [...] MD BODY FLUIDS AND [place] [address], [place] [address] * (ABNORMAL) POCT Glucose, Fingerstick (10/18/2024 5:04 [...] LAB BLOOD ORD ERABLES Performing Organization Address [facility] [place] [address], [place] [address] * (ABNORMAL) Blood Gas, Venous (10/18/2024 5:04 [...] MD LAB BLOOD ORDERABLES Performing Organization Address [facility]/[place]IP [place] [address], [place] [address] * Heparin Assay (Anti Xa) (10/18/2024 5:04 [...] MD LAB BLOOD ORDERABLES Performing Organization Address [facility]/ZIP Co de Phone Number [address] [address], [address] [address] * (ABNORMAL) Basic Metabolic Panel (10/18/2024 5:04 [...] Fuad Winter MD LAB BLOOD ORD ERABLES [address] [address], [address] [place] [address] * XR Chest 1 view-Portable (10/18/2024 4:14 PM EST) Anatomical Region Laterality Modality Chest Computed Radiogr aphy 10/18/2024 3:54 PM EST Impressions 10/19/2024 2:34 PM EST 1. ??Interval worsening of now moderate pulmonary edema. Superimposed infectious/inflammatory process cannot be entirely excluded. 2. ??Trace bilateral pleural effusions unchanged. Interpreted by: ??Mitchell Ascencio DO [employer] I personally reviewed the images and the [...] effusions unchanged. Interpreted by: Mitchell Ascencio DO [employer] I personally reviewed the images and the [...] OF CARE TEST ORDERABLES Performing Organization Address [facility] Number [facility] See Below * (ABNORMAL) POCT Glucose, Fingerstick (10/18/2024 2:44 PM EST) POC Glucose 105(H) 65 - 99 mg/dL 10/18/2024 2:49 PM EST Blood specimen / Unknown 10/18/2024 2:44 PM EST 10/18/2024 2:48 PM EST Fuad Winter MD POINT OF CARE TEST ORDERABLES Performing Organization Address [facility] Number [facility] See Below * POCT Glucose, Fingerstick (10/18/2024 1:44 PM EST) POC Glucose 92 65 - 99 mg/dL 10/18/2024 1:45 PM EST Blood specimen / Unknown 10/18/2024 1:44 PM EST 10/18/2024 1:45 PM EST Fuad Winter MD POINT OF CARE TEST ORDERABLES Performing Organization Address [facility] Number [facility] See Below * (ABNORMAL) POCT Glucose, Fingerstick (10/18/2024 1:24 PM EST) POC Glucose 102(H) 65 - 99 mg/dL 10/18/2024 1:44 PM EST Blood specimen / Unknown 10/18/2024 1:24 PM EST 10/18/2024 1:44 PM EST Fuad Winter MD POINT OF CARE TEST ORDERABLES Performing Organization Address [facility]/State/ZIP Co de Phone Number HOSPITAL LAB See Below * (ABNORMAL) POCT Glucose, Fingerstick (10/18/2024 12:19 PM EST) POC Glucose 160(H) 65 - 99 mg/dL 10/18/2024 12:19 PM EST Blood specimen / Unknown 10/18/2024 12:19 PM EST 10/18/2024 12:20 PM EST Fuad Winter MD POINT OF CARE TEST ORDERABLES HOSPITAL LAB See Below * ECHOCARDIOGRAM COMPREHENSIVE WITH CONTRAST (10/18/2024 12:14 PM EST) Pathologist [facility] IVS Mean (F:0.6-0.9, M:0.6-1.0) 1.0 cm IVS [...] system. ?Dr. Pushpa Gallegos was notified by [place] text at 12:36 PM. Technical Details Definity [...] LAB BLOOD ORD ERABLES Performing Organization Address [facility] Phone Number [facility] [address] [place] [address], [address] [address] * (ABNORMAL) POCT Glucose, Fingerstick (10/18/2024 11:19 AM EST) POC Glucose 215(H) 65 - 99 mg/dL 10/18/2024 11:22 AM EST Blood specimen / Unknown 10/18/2024 11:19 AM EST 10/18/2024 11:22 AM EST Fuad Winter MD POINT OF CARE TEST ORDERABLES Performing Organization Address [facility] Phone Number [facility] See Below * (ABNORMAL) POCT Glucose, Fingerstick (10/18/2024 10:16 AM EST) POC Glucose 289(H) 65 - 99 mg/dL 10/18/2024 10:17 AM EST Blood specimen / Unknown 10/18/2024 10:16 AM EST 10/18/2024 10:17 AM EST Fuad Winter MD POINT OF CARE TEST ORDERABLES Performing Organization Address [facility] Phone Number [facility] See Below * Heparin Assay (Anti Xa) (10/18/2024 9:57 AM EST) Anti Xa 0.47 IU/mL 10/18/2024 10:37 AM EST [facility] Comment: (NOTE) Heparin Thromboembolic/Standard/Full [...] MD LAB BLOOD ORDERABLES Performing Organization Address [facility]/State/[facility] Co de Phone Number [facility] [address] [place] [address], [facility] [address] [place] [address] * (ABNORMAL) Basic Metabolic Panel (10/18/2024 9:57 [...] Fuad Winter MD LAB BLOOD ORD ERABLES [address] [address], [address] [address] * (ABNORMAL) POCT Glucose, Fingerstick (10/18/2024 9:39 AM EST) POC Glucose 324(H) 65 - 99 mg/dL 10/18/2024 9:40 AM EST Blood specimen / Unknown 10/18/2024 9:39 AM EST 10/18/2024 9:40 AM EST Fuad Winter MD POINT OF CARE TEST ORDERABLES Performing Organization Address [facility] LAB See Below * (ABNORMAL) POCT Glucose, Fingerstick (10/18/2024 8:34 AM EST) POC Glucose 443(H) 65 - 99 mg/dL 10/18/2024 8:35 AM EST Blood specimen / Unknown 10/18/2024 8:34 AM EST 10/18/2024 8:35 AM EST Fuad Winter MD POINT OF CARE TEST ORDERABLES Performing Organization Address [facility] LAB See Below * (ABNORMAL) POCT Glucose, Fingerstick (10/18/2024 7:31 AM EST) POC Glucose 461(H) 65 - 99 mg/dL 10/18/2024 7:33 AM EST Blood specimen / Unknown 10/18/2024 7:31 AM EST 10/18/2024 7:33 AM EST Fuad Winter MD POINT OF CARE TEST ORDERABLES Performing Organization Address [facility] LAB See Below * (ABNORMAL) [...] Fuad Winter MD LAB [place] [address], [place] [address] * (ABNORMAL) Troponin T, High Sensitivity - [...] Fuad Winter MD LAB [place] [address], [facility] [address] [place] [address] * (ABNORMAL) POCT Glucose, Fingerstick (10/18/2024 6:28 [...] atelectasis, respectively. Interpreted by: ??Prem Coffman MD [employer] I personally reviewed the images and the [...] atelectasis, respectively. Interpreted by: Prem Coffman MD [employer] I personally reviewed the images and the resident's preliminary report and AGREE with the report as it is now presented ([id number]). Fuad Winter MD IMG DIAGNOSTI C IMAGING ORDERABLES * ECG 12 lead (10/18/2024 5:28 AM EST) Ventricular rate 89 BPM EKG [facility] QRS duration 88 ms [facility] Q-T interval 366 ms [facility] QTC calculation (Bazett) 446 ms EKG [facility] R axis 36 degrees EKG [facility] T axis 184 degrees EKG [facility] 10/18/2024 5:28 AM EST Narrative G [facility] - 10/18/2024 9:43 AM EST Normal sinus rhythm ST & T wave abnormality, consider lateral ischemia Abnormal ECG No previous ECGs available Confirmed by MD Ortiz Daniel ([id number]) on 10/18/2024 9:42:59 AM Procedure Note Alonso Ortiz MD - 10/18/[address] & T wave abnormality, consider lateral ischemia Abnormal ECG No previous ECGs available Confirmed by MD Ortiz Daniel ([id number]) on 10/18/2024 9:42:59 AM Fuad Winter MD ECG ORDERABLE [facility] * (ABNORMAL) POCT Glucose, Fingerstick (10/18/2024 5:24 AM EST) [facility] POC Glucose >500(H) 65 - 99 mg/dL 10/18/2024 5:25 AM EST Blood specimen / Unknown 10/18/2024 5:24 AM EST 10/18/2024 5:25 AM EST Fuad Winter MD POINT OF CARE TEST ORDERABLES HOSPITAL LAB See Below * Heparin Assay (Anti-Xa) (10/18/2024 5:16 AM EST) [facility] Anti Xa 0.72 IU/mL 10/18/2024 5:58 AM EST [facility] Comment: (NOTE) Heparin Thromboembolic/Standard/Full [...] LAB BLOOD ORD ERABLES Performing Organization Address City/[facility]/[place]IP [place] [address], [place] [address] * (ABNORMAL) Partial Thromboplastin Time (PTT) (10/18/2024 5:16 AM EST) Anticoagulant IV HEPARIN, UNFRACTIONATED 10/18/2024 5:18 AM EST Partial Thromboplastin Time (PTT) 68(H) 25 - 36 seconds 10/18/2024 5:58 AM EST [facility] Blood Plasma specimen / Unknown 10/18/2024 5:16 AM EST 10/18/2024 5:42 AM EST Fuad Winter MD LAB BLOOD ORD ERABLES Performing Organization Address City/[facility]/ZIP [place] [address], [place] [address] * (ABNORMAL) Protime-INR (10/18/2024 5:16 AM EST) [...] LAB BLOOD ORD ERABLES Performing Organization Address City/[facility]/[place]IP [place] [address], [place] [address] * (ABNORMAL) proBNP, N-terminal (BNP) (10/18/2024 5:16 AM EST) proBNP, N-terminal >70,000(H) <450 pg/mL 10/18/2024 7:21 AM [facility] Blood Plasma specimen / Unknown 10/18/2024 5:16 AM EST 10/18/2024 5:42 AM EST Fuad Winter MD LAB BLOOD ORD ERABLES Performing Organization Address City/[facility]/ZIP [place] [address], [place] [address] * (ABNORMAL) B-Hydroxybutyrate (10/18/2024 5:16 AM EST) [...] LAB BLOOD ORD ERABLES Performing Organization Address City/[facility] [place] [address], [place] [address] * (ABNORMAL) Osmolality (10/18/2024 5:16 AM EST) Osmolality, Serum/Plasma 359(H) 285 - 295 mOsm/Kg 10/18/2024 6:43 AM [facility] Blood (Plasma/Serum) 10/18/2024 5:16 AM EST 10/18/2024 5:42 AM EST Fuad Winter MD LAB BLOOD ORD ERABLES Performing Organization Address [facility] [place] [address], [place] [address] * (ABNORMAL) Blood Gas, Venous (10/18/2024 5:16 AM EST) [facility] Venous Blood PH 7.18(LL) 7.33 - 7.43 [...] Fuad Winter MD LAB BLOOD ORD ERABLES [facility] [address] [place] [address], [facility] [address] [place] [address] * (ABNORMAL) Complete Blood Count, with Differential (10/18/2024 5:16 AM [facility]) White Blood Cell Count 11.5(H) 4.0 - [...] Fuad Winter MD LAB [place] [address], [place] [address] * (ABNORMAL) Troponin T, High Sensitivity - STAT and in 1 hour (10/18/2024 5:16 AM EST) [facility] High Sensitivity Troponin T 1,830(HH) <23 ng/L 10/18/2024 6:38 AM [facility] Delta (Change) NO PREVIOUS RESULT <3 10/18/2024 6:38 AM [facility] Blood (Plasma/Serum) 10/18/2024 5:16 AM EST 10/18/2024 5:42 AM EST Fuad Winter MD LAB [place] [address], [place] [address] * Magnesium (10/18/2024 5:16 AM EST) [facility] Magnesium 1.7 1.6 - 2.7 mg/dL 10/18/2024 6:38 AM [facility] Blood (Plasma/Serum) 10/18/2024 5:16 AM EST 10/18/2024 5:42 AM EST Fuad Winter MD LAB BLOOD ORD ERABLES [address] [address], [address] [address] * (ABNORMAL) Basic Metabolic Panel (10/18/2024 5:16 [...] Fuad Winter MD LAB BLOOD ORD ERABLES [facility] [address] [place] [address], [address] [address] documented in this encounter Visit Diagnoses Diagnosis [...] 50 units/mL, Indication for Anticoagulation: Acute OR New Bag 10/31/2024 4:37 PM EST 14 [...] Comment: 51 grams eaten)1400 (Given - Provider: Tean Meza RN - Comment: 60 grams) isosorbide [...] documented as of this encounter Care Teams [employer] Milling Supervisor Relationship Specialty Start Date End Date Diaz Akers MD PCP - General Internal Medicine 10/20/24 documented as of this encounter
== END 2024-11-08 14:52 | disposition home or self-care (01) ==
PROVIDERS: PCP Internal Medicine; Visit Provider Internal Medicine Hypertension Specialist
DX: N18.5 Chronic kidney disease, stage 5 (principal); D63.1 Anemia in chronic kidney disease; I12.0 Hypertensive chronic kidney disease with stage 5 chronic kidney disease or end stage renal disease; E87.20 Acidosis, unspecified; E11.8 Type 2 diabetes mellitus with unspecified complications; E87.5 Hyperkalemia; E21.3 Hyperparathyroidism, unspecified
CPT/HCPCS: 99214

== ENCOUNTER 2024-11-12 11:54 | Outpatient (REF) | payer OTHER, SELFPAY ==
--- OUTSIDE RECORDS SUMMARY | 2024-11-12 13:19 | XMS_ITS | Encounter Summary ---
Author Organization [facility] Address [address] [place] [address] Care Team Providers Care Division Controller Name Role Phone Diaz Akers MD Primary Care Provider Soledad vailable Encounter Details Date Type Department Care Team (Late st Contact Info) Description 10/19/2024 Scanned Document CARDIOLOGY IP [address] [place] [id number] Sejal Blair [address] [address] Social History Tobacco Use Types Packs/Day Years Used Date Smoking Tobacco: Never Assessed [facility] Utilities Answer Date Recorded In the past 12 months has [employer] electric, gas, oil, or water company threatened [...] the past 12 m [facility], were you homeless or living in a longterm (including now)? No 10/20/2024 Sex and Gender [...] documented as of this encounter Care Teams Division Controller Relationship Specialty Start Date End Date Diaz Akers MD PCP - General Internal Medicine 10/20/24 documented as of this encounter
--- OUTSIDE RECORDS SUMMARY | 2024-11-12 13:20 | XMS_ITS | Encounter Summary ---
Author Organization [facility] Address [address] [place] [address] Care Team Providers Care Safety Leader Name Role Phone Diaz Akers MD Primary Care Provider Soledad vailable Reason for Visit * Reason Comments Abnormal Test Result * Auth/Cert Specialty Diagnoses / Procedures Referred By Danielle rao Referred To Contact Diagnoses DKA (diabetic ketoacidosis) ([facility]) NSTEMI, DKA, Pneumonia Procedures OTHER ADMINISTRATIVE ADJUSTMENT (INSURANCE) Referral ID Status Reason Start Date Expiration Date Visits Re quested Visits Authorized [id number] 1 1 Encounter Details Date Type Department Care Team (Late st Contact Info) Description 10/31/2024 5:21 PM EST - 10/31/2024 6:26 PM EST Surgery [facility] [place] [facility] - Cardiac Catheterization Laboratory [address] [place] [address] Calixto Ureña MD 85 [facility] [address] [place] [id number] CORONARY ANGIO W/LV Social History Tobacco Use Types Packs/Day Years Used Date Smoking Tobacco: Never Passive Smoke Exposure: Never Smokeless Tobacco: Never Tobacco Cessation:Counseling Given: Not Answered [facility] Utilities Answer Date Recorded In the past 12 months has [employer], gas, oil, or water company threatened [...] in the past 12 m [facility], were you homeless or living in a senior living (including now)? No 10/20/2024 Sex and Gender [...] been on hemodialysis follows with nephrology in [place]), insulin-dependent diabetes, hypertension presented from outside hospital [...] titration of his medications through his primary group insurance specialist.. Endocrine service provided recommendations for insulin and he was switched from Januvia to Tradjenta at the time of discharge. Consults: Consults placed: Procedures Inpatient consult to cardiology ([facility] Cardiology) Inpatient consult to cardiology ([facility] Cardiology) Inpatient consult to Endocrinology Inpatient consult to Nutrition Services Procedures: Surgical/Procedural Cases on this Admission Case IDs Date Procedure Surgeon Location Status [id number] 10/31/24 CORONARY ANGIO W/LV Calixto Ureña MD SETTLEMENT PROCESSOR Comp Diagnostic Studies: XR Chest 1 view-Portable [...] effusions unchanged. Interpreted by: Mitchell Ascencio DO Cashier Office I personally reviewed the images and the [...] Sample left with bedside RN. ACCESS: 6 [place]er Wtee-P-Odenveog closed needle/catheter system REQUESTING PRACTITIONER: Cheryl Blue [...] traversingadjacent organs or vascular structures. A 6 [place] Nkez-U-Xijsvnot closed needle/catheter system was utilized for access. [...] adjacent organs or vascular structures. A 6 [place] Mxlq-A-Rnpdwyqe closed needle/catheter system was utilized for access. [...] system. Dr. Pushpa Gallegos was notified by medineering text at 12:36 PM. XR Chest 1 [...] atelectasis, respectively. Interpreted by: Prem Coffman MD Cashier Office I personally reviewed the images and the [...] system. Dr. Pushpa Gallegos was notified by [employer] at 12:36 PM. Results from last 7 [...] through Care Everywhere. * Angiogram Care After (Ugandan) documented in this encounter Medications at Time [...] 11/01/2024 9:27 AM EST Endocrinology Progress Note CORRECTIONAL SUPERVISOR Endocrinology - Medicine Today's Date: 11/01/2024 Admit [...] are interchangable*)- order B-D Debby 4 mm Marathon (15 mL). Humalog KwikPen (U100) (the following are interchangable) - order B-D Debby 4 mm Marathon (15 mL). * Lantus Solostar, Basaglar KwikPen, [...] 47 Diet: Diet Cardiac; Carb Counting 60g/meal 7024-4851 kcal; 2 gm NA (Low Sodium); Low [...] Intake/Output Summary (Last 24 hours) at 11/01/2024 0914 Last data filed at 11/01/2024 0916 Gross [...] intake - dietary recall from the pt and/audio/visual operator, and NPO status. Time spent communicating with other health child day care teacher including the RN Signed Day Casarez Endocrinology [...] level of independence with functional mobility. Current [facility] Basic Mobility Score: 23 Rehab Plan of [...] Progressive Mobility Progressive Mobility Level Achieved Ambulation [facility] Basic Mobility Turning from your back to [...] Climbing 3-5 steps with a railing? 3 [facility] Basic Mobility Score 23 Therapy Assessment/Plan (PT) [...] d/t HTN + DM (neph Dr in [place]), admit as xfer fromOSH with dyspnea (COVID+) [...] Calcitriol daily. Needs to continue follow-up with hand hose cutter on d/c. Sign: Garth Perez DO 11/01/2024 12:58 PM * Ysabel Jones PA-C - 11/01/2024 7:25 AM EST Images from the original note were not included. 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 He was initially admitted to the MICU on insulin drip. Troponin found to be elevated 4036-9270, EKG noted to be sinus with poor R wave progression and nonspecific ST changes. He was initiated on a heparin drip for NSTEMI. Course further complicated by acute HFrEF LVEF 28%, COVID, and ALISA on CKD. [facility] with moderate proximal and mid LAD calcified focal stenosis, severe stenosis of nondominant RCA, recommended for medical management. Plan [facility] 10/31: moderate proximal and mid LAD calcified [...] agreement with plan of care as above. [facility] Cardiology will continue to follow. Subjective Denies [...] 10/31/2024 8:26 PM EST Pt transported to [facility] on monitor. 0 KENDALL Richardson and this [...] 4:29 PM EST Certified Diabetes Care & Brick Washer Note: Patient meets criteria for evaluation due [...] he is still here on Tuesday this [facility] can give him a reader with a [...] from diet unless treating low BG. Given [facility] Diabetes Tool Kit, Thriving with [...] [phone] Signed: Abbey RODNEY, RN, [facility] 10/31/24 8PM * Garth Perez DO - 10/31/2024 9:51 AM EST Date 10/31/2024 Assessment & Plan 79y/o male PMHx DM, HTN, CKD V (bCR~5 from 05/2023) d/t HTN + DM (neph Dr in [place]), admit as xfer fromOSH with dyspnea (COVID+) [...] from the original note were not included. 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 He was initially admitted to the MICU on insulin drip. Troponin found to be elevated 9881-1298, EKG noted to be sinus with poor R wave progression and nonspecific ST changes. He was initiated on a heparin drip forNSTEMI. Course further complicated by acute HFrEF LVEF 28%, COVID, and ALISA on CKD. Awaiting [facility] today. Plan NSTEMI NSVT HTN HsT peak [...] agreement with plan of care as above. [facility] Cardiology will continue to follow. Subjective Denies [...] Medrano MD - 10/30/2024 9:43 AM EST [facility] Medicine Progress note Assessment & Plan [...] d/t HTN + DM (neph Dr in [place]), admit as xfer fromOSH with dyspnea (COVID+) [...] from the original note were not included. [facility] Cardiology Transfer Service Progress Note Chief Complaint: [...] today - Strict I&Os, daily weights Primary Inspector Outside Steam Distribution: [facility] Cardiology will continue to follow. Case discussed with [facility] attending Dr. Valentino Subjective Pt reports he [...] d/t HTN + DM (neph Dr in [place]), admit as xfer fromOSH with dyspnea (COVID+) [...] continue calcitriol 0.5 mcg daily [facility] timing - TBD Subjective HPI Continues with O2 oxy mask overnight-weaned to NC this AM Heparin drip ongoing No dyspnea symptoms He remains patient despite multiple days of delay for [facility] Review of Systems Respiratory: negative Cardiovascular: negative [...] Diet Diabetic/ Calorie Controlled; Carb Counting 60g/meal 2479-4612 kcal History Diabetes History Pre-Admission Regimen: Lantus [...] in the patient record Speaking with a safety and health consultant Reviewing Labs & Radiology Signed Lucinda Whyte Endocrinology - Medicine 10/29/2024 8:33 AM * Macy Macias PA-C - 10/29/2024 7:45 AM EST Images from the original note were not included. [facility] Cardiology Transfer Service Progress Note Chief Complaint: [...] Plan NSTEMI NSVT HTN - Plan for [facility] on 10/30 -Troponin elevated 1830->4171, EKG showed [...] today - Strict I&Os, daily weights Primary Inspector Outside Steam Distribution: [facility] Cardiology will continue to follow. Case discussed with [facility] attending Dr. Contreras Subjective Pt reports that he feels well Patient denies chest pain, shortness of breath, dizziness, lightheadedness, nausea, vomiting, palpitations Objective Telemetry Reviewed: NSR 78 Last Vitals Pulse:61,Resp:18,BP:(!) 144/65,SpO2:95 %,Weight:65.2 kg (143 lb 11.8 oz) Temp Last 24 hrs: Temp Min: 96.7 ??F (35.9 ??C) Max: 98.2 ??F (36.8 ??C) Intake/Output Summary (Last 24 hours) at 10/29/2024 0778 Last data filed at 10/29/2024 0633 Gross [...] d/t HTN + DM (ne[place] Dr in [place]), admit as xfer fromOSH with dyspnea (COVID+) and DKA. ?NSTEMI. TTE 10/18/24 - EF 28% - new. Assessment CKD 5 NSTEMI Anemia of CKD Hypocalcemia COVID + Plan No change to GFR RADHA risk remains unchanged [facility] timing - TBD Lytes reviewed - K, [...] 10/28/2024 9:31 AM EST Endocrinology Progress Note CORRECTIONAL SUPERVISOR Endocrinology - Medicine Today's Date: 10/28/2024 Admit [...] Diet Diabetic/ Calorie Controlled; Carb Counting 60g/meal 0075-7262 kcal Steroids: None Infusions: heparin (porcine) IV [...] 75 mg daily - Continue telemetry -- microbiology lab technician most likely be on Monday 10/30, [...] various nights and back to diet pending Ux Specialist for several days with concern that he [...] Subjective Overnight: Patient did not go to Ux Specialist yesterday, stable overnight no acute events Today: Patient seen and examined at this morning. He is on supplemental oxygen. He states he is feeling well and awaits Ux Specialist. I communicated that the cath is again [...] Patient remains on heparin drip pending cardiac cytology laboratory manager. Patient requires intermittent doses of IV Lasix for pulmonary edema and work of breathing. Kavya Burgess MD. PGY-2 Internal Medicine [place] Text Preferred Associated attestation - Madhav Ryan [...] 75 mg daily - Continue telemetry -- microbiology lab technician most likely be on Monday 10/30, [...] patient has been n.p.o. at midnight pending Ux Specialist for several days resuming a diet in [...] Subjective Overnight: Patient did not go to Ux Specialist yesterday, stable overnight no acute events Today: Patient seen and examined at this morning. He is on supplemental oxygen. He states he is feeling well and awaits Ux Specialist. I communicated that the cath is again [...] gap. Patient remains on heparin drippending cardiac cytology laboratory manager. Patient requires intermittent doses of IV Lasix for pulmonary edema and work of breathing. Donavon Rodgers MD PGY-1 Internal Medicine [place] Text Preferred Associated attestation - Madhav Ryan [...] d/t HTN + DM (neph Dr in [place]), admit as xfer fromOSH with dyspnea (COVID+) [...] 10/27/2024 9:07 AM EST Endocrinology Progress Note CORRECTIONAL SUPERVISOR Endocrinology - Medicine Today's Date: 10/27/2024 Admit Date: 10/18/2024 5:10 AM Consult requested by: Madhav Ryna MD Principal Problem: DKA (diabetic ketoacidosis) (HCC) [...] Diet Diabetic/ Calorie Controlled; Carb Counting 60g/meal 2078-9647 kcal Steroids: none Infusions: dextrose, 25 mL/hr, [...] / Covid and DKA. Cannot rule out MS, COVID myocarditis, or stress induced cardiomyopathy at [...] private room post cath High risk for INSURANCE AGENCY MANAGER remains unchanged Recommend avoiding albuterol transition to [...] 2/3 @ 2:30 Dr. Mario Alberto Alvarez [facility] cardiology will continue to follow. Case discussed with attending, Dr. Contreras Plan was communicated to primary team /and the [place] 3 team IMPROVE SCORE: . Stepdown / ICU / CCU Stay: 1-->Stepdown / ICU / CCU stay Age > 60 yrs: 1--> Age > 60 years IMPROVE SCORE: 2 DVT PPX: Heparin drip CODE STATUS:full code HCP/Decision maker: Patient Telemetry:Yes This note was prepared using voice recognition software and direct typing. Please excuse inadvertent fortune cookie maker or typing errors, or uncorrected word substitutions. [...] system. Dr. Pushpa Gallegos was notified by [place] text at 12:36 PM. Imaging Studies XR [...] effusions unchanged. Interpreted by: Mitchell Ascencio DO Cashier Office I personally reviewed the images and the [...] Sample left with bedside RN. ACCESS: 6 [place]er Usmz-J-Lcaisynh closed needle/catheter system REQUESTING PRACTITIONER: Cheryl Blue [...] traversingadjacent organs or vascular structures. A 6 [place]er Txap-S-Aewucfno closed needle/catheter system was utilized for access. [...] adjacent organs or vascular structures. A 6 [place] Zmem-N-Evkzcata closed needle/catheter system was utilized for access. [...] system. Dr. Pushpa Gallegos was notified by [place] text at 12:36 PM. XR Chest 1 [...] atelectasis, respectively. Interpreted by: Prem Coffman MD Cashier Office I personally reviewed the images and the [...] / Covid and DKA. Cannot rule out MS, COVID myocarditis, or stress induced cardiomyopathy at this point. NSTEMI likely type II demand however unable to rule out type I hence awaiting cardiac Medication regimen Consulted IC appreciate input Patient will remain n.p.o. at midnight for hopefully for C and [facility] spoke with nephrology Dr. Perez who is in agreement to have the patient proceed with cath in a.m. given no availability today Continue heparin gtt per ACS protocol Continue ASA 81 mg daily Continue atorvastatin 80 mg daily Continue Toprol-XL 75 mg p.o. daily Continuous telemetry monitoring Patient will need a private room post cath High risk for INSURANCE AGENCY MANAGER remains unchanged ALISA on CKD Creatinine peak [...] 2/3 @ 2:30 Dr. Mario Alberto Alvarez [facility] cardiology will continue to follow. Case discussed with attending, Dr. Contreras Plan was communicated to primary team dr Neymar Mcfarland /and the [place] 3 team IMPROVE SCORE: Stepdown / ICU / CCU Stay: 1-->Stepdown / ICU / CCU stay Age > 60 yrs: 1--> Age > 60 years IMPROVE SCORE: 2 DVT PPX: SC Heparin CODE STATUS:full code HCP/Decision maker: Patient Telemetry:Yes This note was prepared using voice recognition software and direct typing. Please excuse inadvertent fortune cookie maker or typing errors, or uncorrected word substitutions. [...] system. Dr. Pushpa Gallegos was notified by [place] text at 12:36 PM. Imaging Studies XR [...] effusions unchanged. Interpreted by: Mitchell Ascencio DO Cashier Office I personally reviewed the images and the [...] Sample left with bedside RN. ACCESS: 6 [place] Gmrh-Y-Sevnunea closed needle/catheter system REQUESTING PRACTITIONER: Cheryl Blue [...] traversingadjacent organs or vascular structures. A 6 [place]er Qtxc-C-Aobjlgno closed needle/catheter system was utilized for access. [...] adjacent organs or vascular structures. A 6 [place]er Ukap-Y-Cvkabnla closed needle/catheter system was utilized for access. [...] system. Dr. Pushpa Gallegos was notified by [place] text at 12:36 PM. XR Chest 1 [...] atelectasis, respectively. Interpreted by: Prem Coffman MD Cashier Office I personally reviewed the images and the [...] Lateral leads Confirmed by DO Ladd Kyla ([id number]) on 10/25/2024 8:09:06 PM Medications Medications Scheduled [...] level of independence with functional mobility. Current [facility] Basic Mobility Score: 20 Rehab Plan of [...] Level Achieved Ambulation Ambulation Distance (Feet) 15 [facility] Basic Mobility Turning from your back to [...] Climbing 3-5 steps with a railing? 3 [facility] Basic Mobility Score 20 Therapy Assessment/Plan (PT) [...] d/t HTN + DM (neph Dr in [place]), admit as xfer fromOSH with dyspnea (COVID+) [...] hypocalcemia and secondary hyperparathyroidism. His risk of INSURANCE AGENCY MANAGER remains unchanged Subjective HPI Vipul remains with [...] 10/26/2024 9:39 AM EST Endocrinology Progress Note CORRECTIONAL SUPERVISOR Endocrinology - Medicine Today's Date: 10/26/2024 Admit [...] team patient will be going to the Ux Specialist. Currently n.p.o. Addendum: Notified by team, cath [...] patient has been n.p.o. at midnight pending Ux Specialist for several days resuming a diet in [...] Subjective Overnight: Patient did not go to Ux Specialist yesterday, stable overnight no acute events Today: Patient seen and examined at this morning. He is on supplemental oxygen. He states he is feeling well and awaits Ux Specialist. Patient continues to be very positive and [...] gap. Patient remains on heparin drippending cardiac cytology laboratory manager. Patient requires intermittent doses of IV Lasix for pulmonary edema and work of breathing. Donavon Rodgers MD PGY-1 Internal Medicine [place] Text Preferred Associated attestation - Neymar Mcfarland [...] / Covid and DKA. Cannot rule out MS, COVID myocarditis, or stress induced cardiomyopathy at [...] 2/3 @ 2:30 Dr. Mario Alberto Alvarez [facility] cardiology will continue to follow. Case discussed with attending, Dr. Contreras Plan was communicated to primary team dr Neymar Mcfarland /and the [place] 3 team IMPROVE SCORE: Stepdown / ICU / CCU Stay: 1-->Stepdown / ICU / CCU stay Age > 60 yrs: 1--> Age > 60 years IMPROVE SCORE: 2 DVT PPX: Heparin drip CODE STATUS:full code HCP/Decision maker: Patient Telemetry:Yes This note was prepared using voice recognition software and direct typing. Please excuse inadvertent fortune cookie maker or typing errors, or uncorrected word substitutions. [...] study for comparison in our system. Dr. Psuhpa Gallegos was notified by [place] text at 12:36 PM. Imaging Studies XR [...] effusions unchanged. Interpreted by: Mitchell Ascencio DO Cashier Office I personally reviewed the images and the [...] Sample left with bedside RN. ACCESS: 6 [place] Rlyc-D-Zwaqqjgt closed needle/catheter system REQUESTING PRACTITIONER: Cheryl Blue [...] traversingadjacent organs or vascular structures. A 6 [place]er Pkia-S-Khfyaooo closed needle/catheter system was utilized for access. [...] adjacent organs or vascular structures. A 6 [place] Ntph-R-Iqovucrw closed needle/catheter system was utilized for access. [...] system. Dr. Pushpa Gallegos was notified by [place] text at 12:36 PM. XR Chest 1 [...] atelectasis, respectively. 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 He feels very confident about his function [...] patient has been n.p.o. at midnight pending Ux Specialist for several days resuming a diet in [...] Subjective Overnight: Patient did not go to Ux Specialist yesterday, stable overnight no acute events Today: Patient seen and examined at this morning. He is on supplemental oxygen. He states he is feeling well and awaits Ux Specialist. Patient has been very patient and awaits Ux Specialist Objective Last Vitals Pulse:77,Resp:16,BP:(!) 145/70,SpO2:(!) 91 %,Weight:65.9 [...] gap. Patient remains on heparin drippending cardiac cytology laboratory manager. Patient requires intermittent doses of IV Lasix for pulmonary edema and work of breathing. Donavon Rodgers MD PGY-1 Internal Medicine [place] Text Preferred Associated attestation - Neymar Mcfarland [...] fluid overload patient has not gone to Ux Specialist yet We will keep fingersticks every 4 [...] (Order- Specific), Last Rate: 15 Units/kg/hr (10/24/24 4845) Discharge Planning: Depending on disposition, was on [...] / Covid and DKA. Cannot rule out MS, COVID myocarditis, or stress induced cardiomyopathy at [...] arrange for cardiology follow-up prior to discharge [facility] cardiology will continue to follow. Case discussed with attending, Dr. Contreras Plan was communicated to primary team dr Neymar Mcfarland /and the [place] [id number] team IMPROVE SCORE Stepdown / ICU / CCU Stay: 1-->Stepdown / ICU / CCU stay Age > 60 yrs: 1--> Age > 60 years IMPROVE SCORE: 2 DVT PPX: Heparin drip CODE STATUS:full code HCP/Decision maker: Patient Telemetry:Yes This note was prepared using voice recognition software and direct typing. Please excuse inadvertent fortune cookie maker or typing errors, or uncorrected word substitutions. [...] system. Dr. Pushpa Gallegos was notified by [place] text at 12:36 PM. Imaging Studies XR [...] effusions unchanged. Interpreted by: Mitchell Ascencio DO Cashier Office I personally reviewed the images and the [...] Sample left with bedside RN. ACCESS: 6 [place] Kvat-A-Najeadzd closed needle/catheter system REQUESTING PRACTITIONER: Cheryl Blue [...] traversingadjacent organs or vascular structures. A 6 [place] Buxh-A-Sxsxehyk closed needle/catheter system was utilized for access. [...] adjacent organs or vascular structures. A 6 [place] Tiih-Y-Eqlbiqin closed needle/catheter system was utilized for access. [...] system. Dr. Pushpa Gallegos was notified by [place] text at 12:36 PM. XR Chest 1 [...] atelectasis, respectively. Interpreted by: Prem Coffman MD Cashier Office I personally reviewed the images and the [...] the patient will be taken to the Ux Specialist and will remain n.p.o. until the procedure is over. The patient had increasing oxygen requirements overnight and repeat chest x-ray showed pulmonary edema. We discussed these findings with the Ux Specialist as they would like to give gentle [...] insulin. The patient has been n.p.o. pending Ux Specialist and there is concern that he may [...] gap. Patient remains on heparin drippending cardiac cytology laboratory manager. 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 He feels very confident about his function [...] found for: TACROLIMUS No results found for: [id number] , TOTVOL , CRCLR , PERIOD No [...] 10/21 2104 Sincerely, Marty Kent MD, [employer] Powerplant Repairer Chronic Kidney Disease [facility] Attending Animal Husbandry Manager, Partner, [facility] Continuous Medication Ordered Dose/Rate, [...] / Covid and DKA. Cannot rule out MS, COVID myocarditis, or stress induced cardiomyopathy at [...] arrange for cardiology follow-up prior to discharge [facility] cardiology will continue to follow. Case discussed with attending, Dr. Contreras Plan was communicated to primary team dr Neymar Mcfarland /and the hewlett 3 team IMPROVE SCORE: Stepdown / ICU / CCU Stay: 1-->Stepdown / ICU / CCU stay Age > 60 yrs: 1--> Age > 60 years IMPROVE SCORE: 2 DVT PPX: Heparin drip CODE STATUS:full code HCP/Decision maker: Patient Telemetry:Yes This note was prepared using voice recognition software and direct typing. Please excuse inadvertent fortune cookie maker or typing errors, or uncorrected word substitutions. [...] system. Dr. Pushpa Gallegos was notified by [place] text at 12:36 PM. Imaging Studies XR [...] effusions unchanged. Interpreted by: Mitchell Ascencio DO Cashier Office I personally reviewed the images and the [...] Sample left with bedside RN. ACCESS: 6 [place]er Jtaz-R-Zginnmmt closed needle/catheter system REQUESTING PRACTITIONER: Cheryl Blue [...] traversingadjacent organs or vascular structures. A 6 [place] Qtsy-Z-Ysxgrmcf closed needle/catheter system was utilized for access. [...] adjacent organs or vascular structures. A 6 [place] Wvzt-U-Gxzpgjxl closed needle/catheter system was utilized for access. [...] system. Dr. Pushpa Gallegos was notified by [place] text at 12:36 PM. XR Chest 1 [...] atelectasis, respectively. Interpreted by: Prem Coffman MD Cashier Office I personally reviewed the images and the [...] QT has lengthened Confirmed by MD Alex, [facility] ([id number]) on 10/22/2024 7:57:16 AM Medications Medications [...] gap. Patient remains on heparin drippending cardiac cytology laboratory manager. Donavon Rodgers MD PGY-1 Internal Medicine [place] Text Preferred Associated attestation - Neymar Mcfarland [...] (he follows with Dr Henrik Bird in [place]), who presented intially to OSH with URI [...] with slight improvement to 4.3 Plan for cytology laboratory manager today. Lázaro Score with 100cc of contrast: [...] long time and has follow-up with a hand hose cutter in [place]. He feels very confident about his function [...] found for: TACROLIMUS No results found for: [id number] , TOTVOL , CRCLR , PERIOD No [...] 10/21 2105 Sincerely, Marty Kent MD, [employer] Repairer Chronic Kidney Disease [facility] Attending Animal Husbandry Manager, Partner, [facility] Physicians Continuous Medication Ordered Dose/Rate, Route, [...] / Covid and DKA. Cannot rule out MS, COVID myocarditis, or stress induced cardiomyopathy at [...] arrange for cardiology follow-up prior to discharge [facility] cardiology will continue to follow. Case discussed [...] software and direct typing. Please excuse inadvertent fortune cookie maker or typing errors, or uncorrected word substitutions. [...] system. Dr. Pushpa Gallegos was notified by [place] text at 12:36 PM. Imaging Studies XR [...] effusions unchanged. Interpreted by: Mitchell Ascencio DO Cashier Office I personally reviewed the images and the [...] Sample left with bedside RN. ACCESS: 6 [place]er Lnlj-W-Byvnkyzj closed needle/catheter system REQUESTING PRACTITIONER: Cheryl Blue [...] traversingadjacent organs or vascular structures. A 6 [place] Kxfn-E-Wwdcruei closed needle/catheter system was utilized for access. [...] adjacent organs or vascular structures. A 6 [place]er Icze-Z-Coeltasi closed needle/catheter system was utilized for access. [...] system. Dr. Pushpa Gallegos was notified by [place] text at 12:36 PM. XR Chest 1 [...] atelectasis, respectively. Interpreted by: Prem Coffman MD Cashier Office I personally reviewed the images and the [...] QT has lengthened Confirmed by MD Alex, [facility] ([id number]) on 10/22/2024 7:57:16 AM Medications Medications [...] 10/21/24 0803 10/21/24 0309 10/20/24 0215 10/19/24 6109 SODIUM mmol/L -- 145 -- -- 140 [...] Yes) Resolved Problems: Assessment & Plan Neymar Widler is a 79 y.o. male [...] telemetry -- Cardiology will bring patient for cytology laboratory manager tomorrow for RHC and LHC, NPO at [...] gap. Patient remains on heparin drippending cardiac cytology laboratory manager. Donavon Rodgers MD PGY-1 Internal Medicine [place] Text Preferred Associated attestation - Neymar Mcfarland [...] Diet Diabetic/ Calorie Controlled; Carb Counting 60g/meal 2986-1656 kcal Steroids: None. Drips: None. History Diabetes [...] 8:45 AM EST Endocrinology Progress Note [facility] Endocrinology - Medicine Today's Date: 10/21/2024 Admit [...] Diet Diabetic/ Calorie Controlled; Carb Counting 60g/meal 7111-8321 kcal Steroids: None. Drips: None. History Diabetes [...] Antonio Hameed PGY1, Internal Medicine Available on [place] Text 10/21/2024 10:39 AM Associated attestation - [...] MD (Nina) MPH Chief, Department of Medicine [phone] * Linda Rivera PA-C - 10/21/2024 6:28 AM EST Images from the original note were not included. [facility] Cardiology Transfer Service Progress Note Chief Complaint: [...] viral pneumonia and DKA. Cannot rule out MS, COVID myocarditis, or stress induced cardiomyopathy at [...] outpatient cardiology follow up prior to discharge. [facility] cardiology will continue to follow. Case discussed [...] inpatient Arrived From Hospital General Information Comments [facility] Initial Information How to be Addressed Vipul Source of Information patient;family;health record Stated Reason for Admission Covid, Heart, High Sugar Levels Patient Aware of Diagnosis yes Limitations on Visitors/Phone Calls none Temporary Family Living Arrangements (While Hospitalized) none needed Adaptive Services not applicable Does the Patient Have a CT DNR [place] Bracelet or State DNR Form? no Clinical Trial not applicable Designated Caregiver for Discharge Coordination Do You Have a Designated Caregiver for Discharge? yes Designated Caregiver's Name Prem Wilder Caregiver's Relationship to Patient child life specialist's Caregiver's Address Same as the patient's address. [...] were you homeless or living in a senior living (including now)? N Food Insecurity Within the [...] of Pulmonary, Critical Care, and Sleep Medicine [address] [place] [address], [address] [address] Critical Care Progress Note Assessment & Plan [...] system. Dr. Pushpa Gallegos was notified by [place] text at 12:36 PM. GI: >Nutrition: Diet/Nutrition Received: consistent carb/diabetic diet Diet Diabetic/ Calorie Controlled; Carb Counting 60g/meal 9443-2115 kcal Renal: CKD 5, stable Monitor >Intake [...] if appropriate. This report was generated using MultiZona[employer] Speaking dictation software. Although every attempt has [...] Diet Diabetic/ Calorie Controlled; Carb Counting 60g/meal 1746-6659 kcal Steroids: None. Drips: None. History Diabetes [...] from the original note were not included. [facility] CRITICAL CARE RESIDENT PROGRESS NOTE LOS: 2 CODE:: Code Status Procedures Full Code Subjective Hospital Course: This is a 79 yo male with PMHx of stage V CKD (has not been on hemodialysis follows with nephrologyin [place]), insulin-dependent diabetes, hypertension, HFrEF with acute decompensation [...] Problem List Principal Problem: DKA (diabetic ketoacidosis) ([facility]) (POA: Yes) Resolved Problems: Assessment Neymar Baum Meño 79 y.o. w/ PMHx of stage V CKD (has not been on hemodialysis follows with nephrology in [place]), insulin-dependent diabetes, hypertension admitted to ICU for [...] Diet Diabetic/ Calorie Controlled; Carb Counting 60g/meal 0664-3927 kcal NEPHROLOGY ALISA on stage III CKD [...] Tilley. Sign Lesly Luke MD Available on [place] Text 10/20/2024 7:48 AM * Linda Rivera PA-C - 10/20/2024 6:40 AM EST Images from the original note were not included. [facility] Cardiology Transfer Service Progress Note Chief Complaint: [...] viral pneumonia and DKA. Cannot rule out MS, COVID myocarditis, or stress induced cardiomyopathy at [...] outpatient cardiology follow up prior to discharge. [facility] cardiology will continue to follow. Case discussed [...] been on hemodialysis follows with nephrology in [place]), insulin-dependent diabetes, hypertension admitted to ICU for [...] MD Donavon Amos MD PGY-1 Internal Medicine [place] Text Preferred ICU Check-list Code: Code Status [...] Sample left with bedside RN. ACCESS: 6 Hong Konger Oeom-R-Fywpgqdg closed needle/catheter system REQUESTING PRACTITIONER: Cheryl Blue [...] traversingadjacent organs or vascular structures. A 6 [place]er Gqkc-U-Nfvlilhv closed needle/catheter system was utilized for access. [...] adjacent organs or vascular structures. A 6 [place] Zkni-U-Oogxptat closed needle/catheter system was utilized for access. [...] effusions unchanged. Interpreted by: Mitchell Ascencio DO Cashier Office DIET/NUTRITION: Diet/Nutrition Received: NPO Diet NPO; Meds Behavioral/Sedation scales: CAM-ICU Delirium Present: Negative Rea Agitation Sedation Scale (RASS) / Modified RASS: 0-->alert and calm Ventilator settings: Associated attestation - Kristopher Hickey MD - 10/19/2024 11:[address] [facility] Attestation note: Kristopher Hickey MD [...] Pulmonary, Critical Care, and Sleep Medicine [address], [address], [place] [address] Critical Care Progress Note Assessment & Plan [...] system. Dr. Pushpa Gallegos was notified by [place] text at 12:36 PM. GI: >Nutrition: Diet/Nutrition [...] if appropriate. This report was generated using ContaAzul dictation software. Although every attempt has been made by the provider to proofread this document, occasional misspellings and typographical errors may still be present. Sign: Kristopher Hickey MD 10/19/2024 9:56 AM * Linda Rivera PA-C - 10/19/2024 6:33 AM EST Images from the original note were not included. [facility] Cardiology Transfer Service Progress Note Chief Complaint: [...] viral pneumonia and DKA. Cannot rule out MS, COVID myocarditis, or stress induced cardiomyopathy at [...] outpatient cardiology follow up prior to discharge. [facility] cardiology will continue to follow. Case discussed [...] Pulmonary, Critical Care, and Sleep Medicine [address], [address] [address] Critical Care Progress Note Assessment & Plan [...] There were discussions of HD with his hand hose cutter Dr. Pelon Smith Electrolyte monitoring Avoid nephrotoxins, monitor urine output Get nephrology on board given likely need for cardiac cath >Intake & Output No intake or output data in the 24 hours ending 10/18/24 1955 Endo: Glucommander protocol Gentle IV fluids given concern for volume overload Heme/Onc: On heparin drip for NSTEMI ID: No signs or symptoms of infection Monitor off antibiotics >Antibiotics: Drips: dextrose 5 % and sodium chloride 0.9 %, 10 mL/hr heparin (porcine) IV infusion - low dose protocol, 12 Units/kg/hr (Order- Specific), Last Rate: 12 Units/kg/hr (10/18/24 0561) insulin regular (HumuLIN-R) IV infusion - Glucommander, 0-100 Units/hr, Last Rate: 10 Units/hr (10/18/24 0746) Lines: Peripheral IV - Single Lumen (Adult) [...] if appropriate. This report was generated using MultiZona[employer] Speaking dictation software. Although every attempt has [...] been on hemodialysis follows with nephrology in [place]), insulin-dependent diabetes, hypertension admitted to ICU for [...] V CKD (with prior discussions with patient's hand hose cutter regarding possible initiation of HD) Plan by [...] CKD (there were discussions with patient's prior hand hose cutter Dr. Pelon Smith regarding HD) Initial BUN/creatinine [...] been on hemodialysis follows with nephrology in [place]), insulin-dependent diabetes, hypertension presented from outside hospital [...] atelectasis, respectively. Interpreted by: Prem Coffman MD Cashier Office I personally reviewed the images and the [...] Procedure(s): Bilateral thoracentesis Indications: Bilateral pleural effusion Production Zone Leader: None Anesthesia: None Fluid: 850ml of clear [...] was initially admitted to ICU, transferred to [place] on 10/20, now on floor level of [...] lb 1.8 oz) Fluids: 1600ml based on BUDGET ACCOUNTANT Method (or per MD/team) Estimated/Assessed Carbohydrates Needs: [...] 1. 79 y.o. male with CAD, s/p MS 02/2024, transferred from [facility] with NSTEMI. 2. HFrEF with newly [...] Illness 79 y.o. male with CAD, s/p MS 02/2024, HFrEF , CKD stage V, Cr [...] H&P, physical assessment, and educated on cardiac Ux Specialist procedure was approximately 60 minutes The following information is collected for participation in the [place] [employer] CATH/PCI Registry (ACCNCDR) and is used for submission of data and may not be entirely consistent with the clinical evaluation. ACC-NCDR CathPCI V5 Collection Form History and Risk Factors Hypertension: Yes Diabetes mellitus: Yes Hx of CAD: No Prior MS: Yes Date of most recent MS: 02/08/2024 Prior CABG: No Prior PCI: No [...] assessed: No Indications and Presentation Indication(s) for cytology laboratory manager visit: suspected CAD Chest pain symptom assessment: [...] medical Struve coronary artery disease status post MS in February 2024, heart failure with reduced [...] patient. Risks including but not limited to MS, stroke, emergency bypass surgery, bleeding or vascular [...] 9:23 AM EST Nephrology Consult Note Neymar iWlder Date of Consult: 10/19/2024 Patient's Primary Care Physician: No primary care provider on file. Physician Requesting Consult: Pushpa Gallegos MD Reason for Consultation: Chronic kidney disease stage V Impression Neymar Wilder is a 79 y.o. male with PMHx including CKD V (BlCr 5.0, 11/03), DM II, HTN who was transferred from [facility] to on 10/18/24 with concern for [...] been on hemodialysis follows with nephrology in [place]), insulin-dependent diabetes, hypertension presented from outside hospital [...] found for: TACROLIMUS No results found for: [id number] , TOTVOL , CRCLR , PERIOD No [...] as written. Signed, Marty Kent MD, [employer] Repairer, CKD, [facility] Chief of Nephrology, [facility] [place] * Tangela Reed PA-C - 10/19/2024 [...] Complaint Diabetes Management [facility]: [facility], interviewed over phone. [...] from the original note were not included. [facility] CARDIOLOGY TRANSFER SERVICE Date of Consult: 10/18/2024 Patient's Primary Care Physician: No primary care provider on file. Physician Requesting Consult: Pushpa Gallegos MD Primary Inspector Outside Steam Distribution: - Reason for Consultation: Shortness of Breath [...] monitor with RN Nesha Jacobsen RN 10/18/24 4437 * Kristian Angeles RN - 10/18/2024 12:07 [...] history of diabetes presents in transfer from [facility] with the patient was found to be [...] from external provider, facility, or healthcare organization: [facility] ED note History obtained from other source [...] to fluid overload. Adriel Funez RN 10/18/24 9947 * Adriel Funez RN - 10/18/2024 5:24 [...] out type I hence awaiting cardiac 11/01 [facility] 10/31: moderate proximal and mid LAD calcified [...] legal medical record. Vickie Norris RN, CDS [phone] * Case Coordination-Payor Communication - Meme Jones [...] Review Date: 10/31/2024 Clinical Update: [facility] today, remains NPO Neymar remains on heparin [...] arrived to the unit at 2000 from cytology laboratory manager. Upon assessment pt is Aox4, NSR on [...] cath fluids. Heparin gtt infusing. Sent to cytology laboratory manager for LHC.Strict isolation d/c. Oksana Zhang 10/31/2024 [...] for transition. Plan is for [facility] today. At this time transition plan remains [...] given today per order. Pt transferring to [facility], Report given to RN. Zaria Leyva 10/28/2024 6:30 PM * Plan of Care - Anny Joyce PA-C - 10/28/2024 3:36 PM EST Images from the original note were not included. [facility] Cardiology Transfer Service Plan of Care Note [...] pads on -Tentatively planned for [facility] Tuesday, if VT persists contact cytology laboratory manager sooner for consideration of more urgent catheterization [...] Burgess MD Internal Medicine PGY2 Available via 4meee 10/28/24 10:54 AM * Plan of Care [...] remained stable and we continue optimizing for Ux Specialist. Catheter most likely happen early next week. He was appreciated update and I answered all his questions to the best my ability. Donavon Rodgers MD PGY-1 Internal Medicine [place] Text Preferred * Plan of Care - [...] of Care Reviewed With: patient Outcome Evaluation: 9284-7099: Neymar was A&Ox4 and had no complaints [...] Summary: pending cardiac cath Patient is from [place]. Recommendation: dispo plan home with HC services [...] ability. Donavon Rodgers MD PGY-1 Internal Medicine [place] Text Preferred * Plan of Care - Sirisha Adams RN - 10/26/2024 4:49 AM EST Progress: improving Outcome Evaluation: 4643-6068: Neymar remains alert and oriented *4. no shortness of breath. Continued on 4L oxymask, sating above goal. Continued on heparin drip. NPO since midnight for left and right heart cath today. slept between care. Sirisha Adams 10/26/2024 4:49 AM * Plan of Care - Olga Terrell RN - 10/25/2024 6:50 PM EST Plan of Care Reviewed With: patient Progress: improving Outcome Evaluation: 0763-8802. Pt alert and oriented *4. No reports [...] PM EST Patient set to go to cytology laboratory manager tomorrow, has been made NPO at midnight. Called bed management to facilitate transfer of patient to [address] in a private room 2/2 COVID [...] update Donavon Rodgers MD PGY-1 Internal Medicine [place] Text Preferred * Plan of Care - [...] Review Date: 10/25/2024 Clinical Update: NPO for cytology laboratory manager today. Spot dose Lasix. Continues on heparin gtt while awaiting cytology laboratory manager. Plan: #NSTEMI #Acute decompensated HFrEF (LVEF 28%) [...] with falling creatinine still greater than 25% microbiology lab technician providers are well aware of this [...] Reviewed With: patient Progress: improving Outcome Evaluation: 9728-0678. Pt alert and oriented *4. No reports [...] for his father to go to the Ux Specialist today. He had increasing oxygen requirements overnight [...] ability. Donavon Rodgers MD PGY-1 Internal Medicine [place] Text Preferred * Plan of Care - Sirisha Adams RN - 10/24/2024 6:44 AM EST Outcome Evaluation: 1449-1775: Neymar is alert and oriented *4. Denies [...] Terrell RN - 10/23/2024 6:57 PM EST [id number]. Pt alert and oriented *4. No reports [...] With: patient Progress: no change Outcome Evaluation: 4945-1622: No acute changes. Heparin gtt adjusted per [...] of Care Reviewed With: patient Outcome Evaluation: 3865-4886: In the beginning of the shift Neymar [...] ability. Donavon Rodgers MD PGY-1 Internal Medicine [place] Text Preferred * Rehab Therapy Consults - [...] level of independence with functional mobility. Baseline [facility] Basic Mobility Score: 24 Current [facility] Basic Mobility Score: 20 Objective Data ROM: [...] Progressive Mobility Level Achieved Transferring to Chair [facility] Basic Mobility Turning from your back to [...] Climbing 3-5 steps with a railing? 3 [facility] Basic Mobility Score 20 Therapy Assessment/Plan (PT) [...] PT goal 1 Transfer Goal 1 (PT) [place] Level/Cues Needed (Transfer Goal 1, PT) modified independence Time Frame (Transfer Goal 1, PT) 2 weeks Activity/Assistive Device (Transfer Goal 1, PT) transfers, all;walker, rolling Gait Training Goal 1 (PT) Time Frame (Gait Training Goal 1, PT) 2 weeks [place] Level (Gait Training Goal 1, PT) modified independence Activity/Assistive Device (Gait Training Goal 1, PT) gait (walking locomotion);walker, rolling Distance (Gait Training Goal 1, PT) 300 feet Stairs Goal 1 (PT) [place] Level/Cues Needed (Stairs Goal 1, PT) supervision [...] of Care Reviewed With: patient Outcome Evaluation: 1483-2088: Neymar was A&Ox4 and had no complaints [...] Progress: no change Outcome Evaluation: Arrived from [facility] around 1600. Skin check complete with [...] person supports:Self and Family PCP: Updated in [address]. Added his preferred pharmacy as well. Anticipated [...] Continue Cierra Greenberg MC PGY-3 Internal Medicine [facility] Available on TigerText * Plan of Care [...] tonight. Donavon Rodgers MD PGY-1 Internal Medicine [place] Text Preferred * Case Coordination-Payor Communication - Meme Jones - 10/19/2024 7:24 AM EST Per State [facility] General Statutes Sec: 38a-226c: Notification of determination communicated within 2business days of receipt of all information necessary to complete the review. Please fax authorization determination to [phone] or call [phone] * Case Coordination-Payor Communication - Nathalia Liao RN - 10/19/2024 6:14 AM EST Type: (Inpt/Obs): Inpatient Date of Admission: 10/18/2024 Admitting Dx: DKA HPI: 79 y.o. w/ PMHx of stage V CKD (has not been on hemodialysis follows with nephrology in [place]), insulin-dependent diabetes, hypertension presented from outside hospital [...] V CKD (with prior discussions with patient's hand hose cutter regarding possible initiation of HD) Vitals: Pulse:86,Resp:20,BP:138/69,SpO2:92 [...] CKD (there were discussions with patient's prior hand hose cutter Dr. Pelon Smith regarding HD) Initial BUN/creatinine [...] OF CARE TEST ORDERABLES Performing Organization Address [facility] Phone Number HOSPITAL LAB See Below * (ABNORMAL) POCT Glucose, Fingerstick (11/01/2024 8:21 AM EST) POC Glucose 111(H) 65 - 99 mg/dL 11/01/2024 11:56 AM EST Blood specimen / Unknown 11/01/2024 8:21 AM EST 11/01/2024 11:56 AM EST Fuad Winter MD POINT OF CARE TEST ORDERABLES Performing Organization Address [facility] Number [facility] LAB See Below * (ABNORMAL) Phosphorus (Early AM) (11/01/2024 6:20 AM EST) Phosphorus 4.7(H) 2.7 - 4.5 mg/dL 11/01/2024 7:58 AM EST [facility] Blood (Plasma/Serum) 11/01/2024 6:20 AM EST 11/01/2024 6:57 AM EST Jonna Donis PA-C LAB BLOOD ORDERABL ES Performing Organization Address [facility] Number [address] [address], [address] [address] * MAGNESIUM (11/01/2024 6:20 AM EST) Magnesium 1.6 1.6 - 2.7 mg/dL 11/01/2024 7:58 AM EST [facility] Blood (Plasma/Serum) 11/01/2024 6:20 AM EST 11/01/2024 6:57 AM EST Jonna Donis PA-C LAB BLOOD ORDERABL ES Performing Organization Address [facility] [place] [address], [place] [address] * (ABNORMAL) COMPLETE BLOOD COUNT, WITHOUT DIFFERENTIAL (11/01/2024 6:20 AM EST) [facility] White Blood Cell Count 9.1 4.0 - 11.0 Thou/uL 11/01/2024 7:10 AM [facility] Platelet Count 261 150 - 450 Thou/uL 11/01/2024 7:10 AM [facility] Hemoglobin 9.2(L) 13.0 - 17.7 g/dL 11/01/2024 7:10 AM [facility] Hematocrit 29.7(L) 39.0 - 54.0 % 11/01/2024 7:10 AM [facility] Red Blood Cell Count 3.00(L) 4.50 - 6.20 Mil/uL 11/01/2024 7:10 AM [facility] MCV 99 80 - 100 fL 11/01/2024 7:10 AM [facility] MCH 30.7 27.0 - 31.0 pg 11/01/2024 7:10 AM [facility] MCHC 31.0 30.0 - 36.0 g/dL 11/01/2024 7:10 AM [facility] RDW 16.2(H) 11.5 - 14.5 % 11/01/2024 7:10 AM [facility] MPV 11.4 7.5 - 12.5 fL 11/01/2024 7:10 AM [facility] Blood Blood specimen / Unknown 11/01/2024 6:20 AM EST 11/01/2024 6:57 AM EST Jonna Donis PA-C [place] [address], [place] [address] * (ABNORMAL) BASIC METABOLIC PANEL (11/01/2024 6:20 AM EST) [facility] [place] Glucose 92 65 - 99 mg/dL 11/01/2024 7:58 AM [facility] Comment:Fasting: <100 mg/dL, Non-Fasting: <200 mg/dL (ADA 2004) Blood Urea Nitrogen (BUN) 41(H) 8 - 21 mg/dL 11/01/2024 7:58 AM [facility] Creatinine 4.5(H) 0.5 - 1.3 mg/dL 11/01/2024 7:58 AM [facility] eGFR 13(L) >59 11/01/2024 7:58 AM [facility] Comment:CKD-EPI (2020) in mL /min/1.73 sq meters. Sodium 140 136 - 145 mmol/L 11/01/2024 7:58 AM [facility] Potassium 4.8 3.4 - 5.3 mmol/L 11/01/2024 7:58 AM [facility] Chloride 104 98 - 107 mmol/L 11/01/2024 7:58 AM [facility] CO2 22 22 - 33 mmol/L 11/01/2024 7:58 AM [facility] Anion Gap 14 7 - 17 11/01/2024 7:58 AM [facility] Calcium 9.3 8.7 - 10.5 mg/dL 11/01/2024 7:58 AM [facility] BUN/Creatinine Ratio 9(L) 10.0 - 25.0 Ratio 11/01/2024 7:58 AM [facility] Blood (Plasma/Serum) 11/01/2024 6:20 AM EST 11/01/2024 6:57 AM EST Jonna Donis PA-C [place] [address], [place] [address] * (ABNORMAL) POCT Glucose, Fingerstick (11/01/2024 1:58 [...] from the original result were not included. [facility] at [facility] - Cardiac Catheterization Laboratory PATIENT DEMOGRAPHIC INFORMATION Name: Neymar Wilder : 1945 79 y.o. Sex: male Gender: male Procedure Date: 10/31/2024 PROCEDURE DETAILS Temporary Receptionist: Calixto Ureña MD Fellow: None Production Zone Leader(s): none Indications for Procedure: ACS, drop in EF Referring Physician: Neymar Mcfarland Referring Inspector Outside [employer]: PCP: Diaz Akers MD Procedure(s): Procedures: ??* [...] medical Struve coronary artery disease status post MS in February 2024, heart failure with reduced [...] this patient that I request from a [facility] PA/CORRECTIONAL SUPERVISOR/fellow/staff member. Calixto Ureña MD [facility] 10/31/2024 ??6:57 PM Coronary Findings Diagnostic Dominance: [...] POCT Glucose, Fingerstick (10/31/2024 4:45 PM EST) [facility] [place] POC Glucose 74 65 - 99 mg/dL 10/31/2024 4:46 PM EST Blood specimen / Unknown 10/31/2024 4:45 PM EST 10/31/2024 4:46 PM EST Fuad Winter MD POINT OF CARE TEST ORDERABLES HOSPITAL LAB See Below * Heparin Assay (Anti Xa) (10/31/2024 3:28 PM EST) [facility] [place] Anti Xa 0.36 IU/mL 10/31/2024 4:07 PM EST [facility] Comment: (NOTE) Heparin Thromboembolic/Standard/Full Dose Protocol: Therapeutic [...] MD LAB BLOOD ORDERABLES Performing Organization Address [facility] [place] [address], [place] [address] * POCT Glucose, Fingerstick (10/31/2024 12:04 PM EST) POC Glucose 92 65 - 99 mg/dL 10/31/2024 12:21 PM EST Blood specimen / Unknown 10/31/2024 12:04 PM EST 10/31/2024 12:21 PM EST Fuad Winter MD POINT OF CARE TEST ORDERABLES Performing Organization Address [facility] Phone Number [facility] LAB See Below * POCT Glucose, Fingerstick (10/31/2024 8:13 AM EST) POC Glucose 84 65 - 99 mg/dL 10/31/2024 8:15 AM EST Blood specimen / Unknown 10/31/2024 8:13 AM EST 10/31/2024 8:15 AM EST Fuad Winter MD POINT OF CARE TEST ORDERABLES Performing Organization Address [facility] Phone Number [facility] LAB See Below * (ABNORMAL) High Sensitivity Troponin T (10/31/2024 7:16 AM EST) [facility] [place] High Sensitivity Troponin T 396(HH) <23 ng/L 10/31/2024 9:15 AM [facility] Delta (Change) NO PREVIOUS RESULT <3 10/31/2024 9:15 AM EST [facility] Plasma/Serum 10/31/2024 7:16 AM EST 10/31/2024 7:47 AM EST Madhav Ryan MD LAB BLOOD ORDERABLES Performing Organization Address [facility] [place] [address], [place] [address] * TSH, HIGHLY SENSITIVE (10/31/2024 7:16 AM EST) [facility] TSH, Highly Sensitive 2.06 0.27 - 4.20 mIU/L 10/31/2024 9:15 AM EST [facility] Plasma/Serum 10/31/2024 7:16 AM EST 10/31/2024 7:47 AM EST Madhav Ryan MD LAB BLOOD ORDERABLES Performing Organization Address City/[facility] Co de Phone Number [facility] [address] [place] [address], [place] [address] * Heparin Assay (Anti Xa) (10/31/2024 7:16 AM EST) [facility] [place] Anti Xa 0.54 IU/mL 10/31/2024 8:07 AM [facility] Comment: (NOTE) Heparin Thromboembolic/Standard/Full Dose Protocol: [...] LAB BLOOD ORDERAB LES Performing Organization Address [facility]/State/[facility] [place] [address], [facility] [address] [place] [address] * (ABNORMAL) Phosphorus (Early AM) (10/31/2024 7:16 AM EST) Phosphorus 4.7(H) 2.7 - 4.5 mg/dL 10/31/2024 8:55 AM [facility] Blood (Plasma/Serum) 10/31/2024 7:16 AM EST 10/31/2024 7:47 AM EST Jonna Giraldo [employer] PA-C LAB BLOOD ORDERABL ES Performing Organization Address City/[facility] [place] [address], [place] [address] * MAGNESIUM (10/31/2024 7:16 AM EST) Pathologist [facility] Magnesium 1.7 1.6 - 2.7 mg/dL 10/31/2024 8:55 AM [facility] Blood (Plasma/Serum) 10/31/2024 7:16 AM EST 10/31/2024 7:47 AM EST Jonna L [email or web address] PA-C LAB BLOOD ORDERABL ES Performing Organization Address [facility] [place] [address], [place] [address] * (ABNORMAL) COMPLETE BLOOD COUNT, WITHOUT DIFFERENTIAL (10/31/2024 7:16 AM EST) Pathologist [facility] White Blood Cell Count 8.9 4.0 - 11.0 Thou/uL 10/31/2024 8:14 AM [facility] Platelet Count 289 150 - 450 Thou/uL 10/31/2024 8:14 AM [facility] Hemoglobin 9.6(L) 13.0 - 17.7 g/dL 10/31/2024 8:14 AM [facility] Hematocrit 31.4(L) 39.0 - 54.0 % 10/31/2024 8:14 AM [facility] Red Blood Cell Count 3.13(L) 4.50 - 6.20 Mil/uL 10/31/2024 8:14 AM [facility] MCV 100 80 - 100 fL 10/31/2024 8:14 AM [facility] MCH 30.7 27.0 - 31.0 pg 10/31/2024 8:14 AM [facility] MCHC 30.6 30.0 - 36.0 g/dL 10/31/2024 8:14 AM [facility] RDW 16.5(H) 11.5 - 14.5 % 10/31/2024 8:14 AM [facility] MPV 11.3 7.5 - 12.5 fL 10/31/2024 8:14 AM [facility] Blood Blood specimen / Unknown 10/31/2024 7:16 AM EST 10/31/2024 7:47 AM EST Jonna Donis PA-C [place] [address], [place] [address] * (ABNORMAL) BASIC METABOLIC PANEL (10/31/2024 7:16 AM EST) Glucose 82 65 - 99 mg/dL 10/31/2024 8:55 AM [facility] Comment:Fasting: <100 mg/dL, Non-Fasting: <200 mg/dL (ADA 2005) Blood Urea Nitrogen (BUN) 40(H) 8 - 21 mg/dL 10/31/2024 8:55 AM [facility] Creatinine 4.6(H) 0.5 - 1.3 mg/dL 10/31/2024 8:55 AM [facility] eGFR 12(L) >59 10/31/2024 8:55 AM [facility] Comment:CKD-EPI (2020) in mL /min/1.73 sq meters. Sodium 144 136 - 145 mmol/L 10/31/2024 8:55 AM [facility] Potassium 4.7 3.4 - 5.3 mmol/L 10/31/2024 8:55 AM [facility] Chloride 104 98 - 107 mmol/L 10/31/2024 8:55 AM [facility] CO2 24 22 - 33 mmol/L 10/31/2024 8:55 AM [facility] Anion Gap 16 7 - 17 10/31/2024 8:55 AM EST [facility] Calcium 8.8 8.7 - 10.5 mg/dL 10/31/2024 8:55 AM EST [facility] BUN/Creatinine Ratio 9(L) 10.0 - 25.0 Ratio 10/31/2024 8:55 AM EST [facility] Blood (Plasma/Serum) 10/31/2024 7:16 AM EST 10/31/2024 7:47 AM EST Jonna Donis PA-C LAB BLOOD ORDERABL ES Performing Organization Address [facility] [place] [address], [address] [address] * POCT Glucose, Fingerstick (10/31/2024 2:18 AM EST) POC Glucose 88 65 - 99 mg/dL 10/31/2024 2:20 AM EST Blood specimen / Unknown 10/31/2024 2:18 AM EST 10/31/2024 2:20 AM EST Fuad Winter MD POINT OF CARE TEST ORDERABLES Performing Organization Address City/[facility]/ZIP Co de Phone Number [facility] LAB See Below * (ABNORMAL) POCT Glucose, Fingerstick (10/30/2024 9:03 PM EST) POC Glucose 147(H) 65 - 99 mg/dL 10/30/2024 9:43 PM EST Blood specimen / Unknown 10/30/2024 9:03 PM EST 10/30/2024 9:43 PM EST Fuad Winter MD POINT OF CARE TEST ORDERABLES [facility] LAB See Below * (ABNORMAL) POCT Glucose, Fingerstick (10/30/2024 4:24 PM EST) POC Glucose 124(H) 65 - 99 mg/dL 10/30/2024 4:25 PM EST Blood specimen / Unknown 10/30/2024 4:24 PM EST 10/30/2024 4:25 PM EST Fuad Winter MD POINT OF CARE TEST ORDERABLES Performing Organization Address [facility] LAB See Below * POCT Glucose, Fingerstick (10/30/2024 2:00 PM EST) POC Glucose 99 65 - 99 mg/dL 10/30/2024 2:04 PM EST Blood specimen / Unknown 10/30/2024 2:00 PM EST 10/30/2024 2:04 PM EST Fuad Winter MD POINT OF CARE TEST ORDERABLES Performing Organization Address [facility] LAB See Below * POCT Glucose, Fingerstick (10/30/2024 12:35 PM EST) POC Glucose 99 65 - 99 mg/dL 10/30/2024 12:36 PM EST Blood specimen / Unknown 10/30/2024 12:35 PM EST 10/30/2024 12:36 PM EST Fuad Winter MD POINT OF CARE TEST ORDERABLES Performing Organization Address [facility] LAB See Below * POCT Glucose, Fingerstick (10/30/2024 8:43 AM EST) POC Glucose 95 65 - 99 mg/dL 10/30/2024 8:44 AM EST Blood specimen / Unknown 10/30/2024 8:43 AM EST 10/30/2024 8:44 AM EST Fuad Winter MD POINT OF CARE TEST ORDERABLES Performing Organization Address [facility] LAB See Below * Heparin Assay (Anti Xa) (10/30/2024 7:09 AM EST) Anti Xa 0.50 IU/mL 10/30/2024 8:13 AM EST [facility] Comment: (NOTE) Heparin Thromboembolic/Standard/Full Dose Protocol: Therapeutic [...] LAB BLOOD ORDERAB LES Performing Organization Address [facility] [place] [address], [place] [address] * (ABNORMAL) Phosphorus (Early AM) (10/30/2024 7:09 AM EST) Phosphorus 5.1(H) 2.7 - 4.5 mg/dL 10/30/2024 8:47 AM EST [facility] Blood (Plasma/Serum) 10/30/2024 7:09 AM EST 10/30/2024 7:54 AM EST Jonna Donis PA-C LAB BLOOD ORDERABL ES Performing Organization Address [facility] [place] [address], [place] [address] * MAGNESIUM (10/30/2024 7:09 AM EST) Magnesium 1.7 1.6 - 2.7 mg/dL 10/30/2024 8:47 AM EST [facility] Blood (Plasma/Serum) 10/30/2024 7:09 AM EST 10/30/2024 7:54 AM EST Jonna Donis PA-C LAB BLOOD ORDERABL ES Performing Organization Address [facility] [place] [address], [place] [address] * (ABNORMAL) COMPLETE BLOOD COUNT, WITHOUT DIFFERENTIAL (10/30/2024 7:09 AM EST) White Blood Cell Count 9.3 4.0 - 11.0 Thou/uL 10/30/2024 8:20 AM EST [facility] Platelet Count 304 150 - 450 Thou/uL 10/30/2024 8:20 AM [facility] Hemoglobin 9.3(L) 13.0 - 17.7 g/dL 10/30/2024 8:20 AM [facility] Hematocrit 30.3(L) 39.0 - 54.0 % 10/30/2024 8:20 AM [facility] Red Blood Cell Count 2.99(L) 4.50 - 6.20 Mil/uL 10/30/2024 8:20 AM [facility] MCV 101(H) 80 - 100 fL 10/30/2024 8:20 AM [facility] MCH 31.1(H) 27.0 - 31.0 pg 10/30/2024 8:20 AM [facility] MCHC 30.7 30.0 - 36.0 g/dL 10/30/2024 8:20 AM [facility] RDW 16.8(H) 11.5 - 14.5 % 10/30/2024 8:20 AM [facility] MPV 11.1 7.5 - 12.5 fL 10/30/2024 8:20 AM [facility] Blood Blood specimen / Unknown 10/30/2024 7:09 AM EST 10/30/2024 7:54 AM EST Jonna Donis PA-C [place] [address], [place] [address] * (ABNORMAL) BASIC METABOLIC PANEL (10/30/2024 7:09 AM EST) Glucose 80 65 - 99 mg/dL 10/30/2024 8:47 AM [facility] Comment:Fasting: <100 mg/dL, Non-Fasting: <200 mg/dL (ADA 2005) Blood Urea Nitrogen (BUN) 40(H) 8 - 21 mg/dL 10/30/2024 8:47 AM [facility] Creatinine 4.3(H) 0.5 - 1.3 mg/dL 10/30/2024 8:47 AM [facility] eGFR 13(L) >59 10/30/2024 8:47 AM [facility] Comment:CKD-EPI (2020) in mL /min/1.73 sq meters. Sodium 142 136 - 145 mmol/L 10/30/2024 8:47 AM [facility] Potassium 4.5 3.4 - 5.3 mmol/L 10/30/2024 8:47 AM [facility] Chloride 101 98 - 107 mmol/L 10/30/2024 8:47 AM [facility] CO2 27 22 - 33 mmol/L 10/30/2024 8:47 AM [facility] Anion Gap 14 7 - 17 10/30/2024 8:47 AM [facility] Calcium 9.2 8.7 - 10.5 mg/dL 10/30/2024 8:47 AM [facility] BUN/Creatinine Ratio 9(L) 10.0 - 25.0 Ratio 10/30/2024 8:47 AM [facility] Blood (Plasma/Serum) 10/30/2024 7:09 AM EST 10/30/2024 7:54 AM EST Jonna Donis PA-C [place] [address], [place] [address] * POCT Glucose, Fingerstick (10/30/2024 6:47 AM [...] OF CARE TEST ORDERABLES Performing Organization Address [facility] LAB See Below * (ABNORMAL) POCT Glucose, Fingerstick (10/29/2024 9:16 PM EST) POC Glucose 138(H) 65 - 99 mg/dL 10/29/2024 9:16 PM EST Blood specimen / Unknown 10/29/2024 9:16 PM EST 10/29/2024 9:17 PM EST Fuad Winter MD POINT OF CARE TEST ORDERABLES Performing Organization Address [facility] LAB See Below * (ABNORMAL) POCT Glucose, Fingerstick (10/29/2024 4:32 PM EST) POC Glucose 187(H) 65 - 99 mg/dL 10/29/2024 4:33 PM EST Blood specimen / Unknown 10/29/2024 4:32 PM EST 10/29/2024 4:33 PM EST Fuad Winter MD POINT OF CARE TEST ORDERABLES Performing Organization Address [facility] LAB See Below * (ABNORMAL) POCT Glucose, Fingerstick (10/29/2024 12:54 PM EST) POC Glucose 162(H) 65 - 99 mg/dL 10/29/2024 12:55 PM EST Blood specimen / Unknown 10/29/2024 12:54 PM EST 10/29/2024 12:55 PM EST Fuad Winter MD POINT OF CARE TEST ORDERABLES Performing Organization Address [facility] LAB See Below * (ABNORMAL) POCT Glucose, Fingerstick (10/29/2024 7:51 AM EST) POC Glucose 107(H) 65 - 99 mg/dL 10/29/2024 7:53 AM EST Blood specimen / Unknown 10/29/2024 7:51 AM EST 10/29/2024 7:52 AM EST Fuad Winter MD POINT OF CARE TEST ORDERABLES Performing Organization Address [facility] Co de Phone Number HOSPITAL LAB See Below * (ABNORMAL) proBNP, N-terminal (10/29/2024 7:20 AM EST) Pathologist [facility] proBNP, N-terminal 47,866(H) <450 pg/mL 10/29/2024 12:12 PM EST [facility] Plasma specimen / Unknown 10/29/2024 7:20 AM EST 10/29/2024 8:04 AM EST Madhav Ryan MD LAB BLOOD ORDERABLES Performing Organization Address [facility] de Phone Number [facility] [address] [place] [address], [place] [address] * Heparin Assay (Anti Xa) (10/29/2024 7:20 AM EST) [facility] Anti Xa 0.41 IU/mL 10/29/2024 8:28 AM EST [facility] Comment: (NOTE) Heparin Thromboembolic/Standard/Full Dose Protocol: Therapeutic [...] LAB BLOOD ORDERAB LES Performing Organization Address [facility] [place] [address], [place] [address] * (ABNORMAL) Phosphorus (Early AM) (10/29/2024 7:20 AM EST) Phosphorus 4.9(H) 2.7 - 4.5 mg/dL 10/29/2024 8:40 AM EST [facility] Blood (Plasma/Serum) 10/29/2024 7:20 AM EST 10/29/2024 8:04 AM EST Jonna Donis PA-C LAB BLOOD ORDERABL ES Performing Organization Address City/[facility]/[place] [address], [place] [address] * MAGNESIUM (10/29/2024 7:20 AM EST) Magnesium 1.7 1.6 - 2.7 mg/dL 10/29/2024 8:40 AM [facility] Blood (Plasma/Serum) 10/29/2024 7:20 AM EST 10/29/2024 8:04 AM EST Jonna Donis PA-C LAB BLOOD ORDERABL ES Performing Organization Address [facility] [place] [address], [place] [address] * (ABNORMAL) COMPLETE BLOOD COUNT, WITHOUT DIFFERENTIAL (10/29/2024 7:20 AM EST) White Blood Cell Count 8.5 4.0 - 11.0 Thou/uL 10/29/2024 8:23 AM [facility] Platelet Count 300 150 - 450 Thou/uL 10/29/2024 8:23 AM [facility] Hemoglobin 8.7(L) 13.0 - 17.7 g/dL 10/29/2024 8:23 AM [facility] Hematocrit 29.6(L) 39.0 - 54.0 % 10/29/2024 8:23 AM [facility] Red Blood Cell Count 2.92(L) 4.50 - 6.20 Mil/uL 10/29/2024 8:23 AM [facility] MCV 101(H) 80 - 100 fL 10/29/2024 8:23 AM [facility] MCH 29.8 27.0 - 31.0 pg 10/29/2024 8:23 AM [facility] MCHC 29.4(L) 30.0 - 36.0 g/dL 10/29/2024 8:23 AM [facility] RDW 17.2(H) 11.5 - 14.5 % 10/29/2024 8:23 AM [facility] MPV 10.9 7.5 - 12.5 fL 10/29/2024 8:23 AM [facility] Blood Blood specimen / Unknown 10/29/2024 7:20 AM EST 10/29/2024 8:04 AM EST Jonna Donis PA-C [place] [address], [place] [address] * (ABNORMAL) BASIC METABOLIC PANEL (10/29/2024 7:20 AM EST) Glucose 91 65 - 99 mg/dL 10/29/2024 8:40 AM [facility] Comment:Fasting: <100 mg/dL, Non-Fasting: <200 mg/dL (ADA 2005) Blood Urea Nitrogen (BUN) 44(H) 8 - 21 mg/dL 10/29/2024 8:40 AM [facility] Creatinine 4.3(H) 0.5 - 1.3 mg/dL 10/29/2024 8:40 AM [facility] eGFR 13(L) >59 10/29/2024 8:40 AM [facility] Comment:CKD-EPI (2020) in mL /min/1.73 sq meters. Sodium 142 136 - 145 mmol/L 10/29/2024 8:40 AM [facility] Potassium 4.0 3.4 - 5.3 mmol/L 10/29/2024 8:40 AM [facility] Chloride 103 98 - 107 mmol/L 10/29/2024 8:40 AM [facility] CO2 26 22 - 33 mmol/L 10/29/2024 8:40 AM [facility] Anion Gap 13 7 - 17 10/29/2024 8:40 AM [facility] Calcium 8.8 8.7 - 10.5 mg/dL 10/29/2024 8:40 AM [facility] BUN/Creatinine Ratio 10 10.0 - 25.0 Ratio 10/29/2024 8:40 AM [facility] Blood (Plasma/Serum) 10/29/2024 7:20 AM EST 10/29/2024 8:04 AM EST Jonna Donis PA-C LAB BLOOD ORDERABL ES [address] [address], [address] [address] * POCT Glucose, Fingerstick (10/29/2024 2:07 AM EST) POC Glucose 99 65 - 99 mg/dL 10/29/2024 2:07 AM EST Blood specimen / Unknown 10/29/2024 2:07 AM EST 10/29/2024 2:08 AM EST Fuad Winter MD POINT OF CARE TEST ORDERABLES Performing Organization Address [facility] Co de Phone Number [facility] See Below * (ABNORMAL) POCT [...] 2.7 - 4.5 mg/dL 10/28/2024 4:54 PM [facility] Blood (Plasma/Serum) 10/28/2024 3:38 PM EST 10/28/2024 4:29 PM EST Madhav Ryan MD [place] [address], [place] [address] * Magnesium (STAT) (10/28/2024 3:38 PM EST) Pathologist [facility] Magnesium 1.8 1.6 - 2.7 mg/dL 10/28/2024 4:54 PM [facility] Blood (Plasma/Serum) 10/28/2024 3:38 PM EST 10/28/2024 4:29 PM EST Madhav Ryan MD LAB BLOOD ORDERABLES Performing Organization Address City/[facility] [place] [address], [place] [address] * (ABNORMAL) Basic Metabolic Panel (STAT) (10/28/2024 3:38 PM EST) Pathologist [facility] Glucose 208(H) 65 - 99 mg/dL 10/28/2024 4:54 PM [facility] Comment:Fasting: <100 mg/dL, Non-Fasting: <200 mg/dL (ADA 2004) Blood Urea Nitrogen (BUN) 48(H) 8 - 21 mg/dL 10/28/2024 4:54 PM [facility] Creatinine 4.3(H) 0.5 - 1.3 mg/dL 10/28/2024 4:54 PM [facility] eGFR 13(L) >59 10/28/2024 4:54 PM [facility] Comment:CKD-EPI (2020) in mL /min/1.73 sq meters. Sodium 143 136 - 145 mmol/L 10/28/2024 4:54 PM [facility] Potassium 4.7 3.4 - 5.3 mmol/L 10/28/2024 4:54 PM [facility] Chloride 105 98 - 107 mmol/L 10/28/2024 4:54 PM [facility] CO2 25 22 - 33 mmol/L 10/28/2024 4:54 PM [facility] Anion Gap 13 7 - 17 10/28/2024 4:54 PM [facility] Calcium 8.9 8.7 - 10.5 mg/dL 10/28/2024 4:54 PM [facility] BUN/Creatinine Ratio 11 10.0 - 25.0 Ratio 10/28/2024 4:54 PM [facility] Blood (Plasma/Serum) 10/28/2024 3:38 PM EST 10/28/2024 4:29 PM EST Madhav Ryan MD [place] [address], [place] [address] * (ABNORMAL) POCT Glucose, Fingerstick (10/28/2024 12:32 PM EST) Pathologist [facility] POC Glucose 232(H) 65 - 99 mg/dL 10/28/2024 12:36 PM EST Blood specimen / Unknown 10/28/2024 12:32 PM EST 10/28/2024 12:36 PM EST Fuad Winter MD POINT OF CARE TEST ORDERABLES HOSPITAL LAB See Below * (ABNORMAL) POCT Glucose, Fingerstick (10/28/2024 8:28 AM EST) Pathologist [facility] POC Glucose 111(H) 65 - 99 mg/dL 10/28/2024 8:30 AM EST Blood specimen / Unknown 10/28/2024 8:28 AM EST 10/28/2024 8:29 AM EST Fuad Winter MD POINT OF CARE TEST ORDERABLES HOSPITAL LAB See Below * Heparin Assay (Anti Xa) (10/28/2024 7:00 AM EST) Anti Xa 0.39 IU/mL 10/28/2024 7:54 AM EST [facility] Comment: (NOTE) Heparin Thromboembolic/Standard/Full Dose Protocol: Therapeutic [...] LAB BLOOD ORDERAB LES Performing Organization Address [facility] Co de Phone Number [address] [address], [place] [address] * (ABNORMAL) Phosphorus (Early AM) (10/28/2024 7:00 AM EST) Phosphorus 4.6(H) 2.7 - 4.5 mg/dL 10/28/2024 8:08 AM EST [facility] Blood (Plasma/Serum) 10/28/2024 7:00 AM EST 10/28/2024 7:37 AM EST Jonna Donis PA-C LAB BLOOD ORDERABL ES Performing Organization Address [facility] Co de Phone Number [address] [address], [address] [address] * MAGNESIUM (10/28/2024 7:00 AM EST) Magnesium 1.8 1.6 - 2.7 mg/dL 10/28/2024 8:08 AM EST [facility] Blood (Plasma/Serum) 10/28/2024 7:00 AM EST 10/28/2024 7:37 AM EST Jonna Donis PA-C LAB BLOOD ORDERABL ES Performing Organization Address [facility] Co de Phone Number [address] [address], [address] [address] * (ABNORMAL) COMPLETE BLOOD COUNT, WITHOUT DIFFERENTIAL (10/28/2024 7:00 AM EST) [facility] White Blood Cell Count 9.2 4.0 - 11.0 Thou/uL 10/28/2024 7:46 AM [facility] Platelet Count 326 150 - 450 Thou/uL 10/28/2024 7:46 AM [facility] Hemoglobin 8.7(L) 13.0 - 17.7 g/dL 10/28/2024 7:46 AM [facility] Hematocrit 29.1(L) 39.0 - 54.0 % 10/28/2024 7:46 AM [facility] Red Blood Cell Count 2.85(L) 4.50 - 6.20 Mil/uL 10/28/2024 7:46 AM [facility] MCV 102(H) 80 - 100 fL 10/28/2024 7:46 AM [facility] MCH 30.5 27.0 - 31.0 pg 10/28/2024 7:46 AM [facility] MCHC 29.9(L) 30.0 - 36.0 g/dL 10/28/2024 7:46 AM [facility] RDW 17.2(H) 11.5 - 14.5 % 10/28/2024 7:46 AM [facility] MPV 11.3 7.5 - 12.5 fL 10/28/2024 7:46 AM [facility] Blood Blood specimen / Unknown 10/28/2024 7:00 AM EST 10/28/2024 7:37 AM EST Jonna Donis PA-C LAB BLOOD ORDERABL ES [address] [address], [address] [address] * (ABNORMAL) BASIC METABOLIC PANEL (10/28/2024 7:00 AM EST) [facility] Glucose 84 65 - 99 mg/dL 10/28/2024 8:08 AM [facility] Comment:Fasting: <100 mg/dL, Non-Fasting: <200 mg/dL (ADA 2005) Blood Urea Nitrogen (BUN) 50(H) 8 - 21 mg/dL 10/28/2024 8:08 AM [facility] Creatinine 4.4(H) 0.5 - 1.3 mg/dL 10/28/2024 8:08 AM [facility] eGFR 13(L) >59 10/28/2024 8:08 AM [facility] Comment:CKD-EPI (2020) in mL /min/1.73 sq meters. Sodium 142 136 - 145 mmol/L 10/28/2024 8:08 AM [facility] Potassium 3.9 3.4 - 5.3 mmol/L 10/28/2024 8:08 AM [facility] Chloride 105 98 - 107 mmol/L 10/28/2024 8:08 AM [facility] CO2 25 22 - 33 mmol/L 10/28/2024 8:08 AM [facility] Anion Gap 12 7 - 17 10/28/2024 8:08 AM [facility] Calcium 8.6(L) 8.7 - 10.5 mg/dL 10/28/2024 8:08 AM [facility] BUN/Creatinine Ratio 11 10.0 - 25.0 Ratio 10/28/2024 8:08 AM [facility] Blood (Plasma/Serum) 10/28/2024 7:00 AM EST 10/28/2024 7:37 AM EST Jonna Donis PA-C LAB BLOOD ORDERABL ES Performing Organization Address City/[facility] [place] [address], [place] [address] * (ABNORMAL) POCT Glucose, Fingerstick (10/28/2024 4:20 AM EST) POC Glucose 109(H) 65 - 99 mg/dL 10/28/2024 4:21 AM EST Blood specimen / Unknown 10/28/2024 4:20 AM EST 10/28/2024 4:21 AM EST Fuad Winter MD POINT OF CARE TEST ORDERABLES Performing Organization Address City/State/[facility] Phone [facility] LAB See Below * (ABNORMAL) POCT Glucose, Fingerstick (10/28/2024 12:29 AM EST) POC Glucose 129(H) 65 - 99 mg/dL 10/28/2024 12:30 AM EST Blood specimen / Unknown 10/28/2024 12:29 AM EST 10/28/2024 12:30 AM EST Fuad Winter MD POINT OF CARE TEST ORDERABLES Performing Organization Address [facility] Phone Number [facility] LAB See Below * (ABNORMAL) POCT Glucose, Fingerstick (10/27/2024 8:06 PM EST) POC Glucose 203(H) 65 - 99 mg/dL 10/27/2024 8:10 PM EST Blood specimen / Unknown 10/27/2024 8:06 PM EST 10/27/2024 8:10 PM EST Fuad Winter MD POINT OF CARE TEST ORDERABLES Performing Organization Address [facility] Phone [facility] LAB See Below * (ABNORMAL) POCT Glucose, Fingerstick (10/27/2024 4:20 PM EST) POC Glucose 224(H) 65 - 99 mg/dL 10/27/2024 4:28 PM EST Blood specimen / Unknown 10/27/2024 4:20 PM EST 10/27/2024 4:28 PM EST Fuad Winter MD POINT OF CARE TEST ORDERABLES Performing Organization Address [facility] Phone Number [facility] LAB See Below * (ABNORMAL) Basic Metabolic Panel (Routine) (10/27/2024 3:26 PM EST) Glucose 179(H) 65 - 99 mg/dL 10/27/2024 4:11 PM EST [facility] Comment:Fasting: <100 mg/dL, Non-Fasting: <200 mg/dL (ADA 2005) Blood Urea Nitrogen (BUN) 53(H) 8 - 21 mg/dL 10/27/2024 4:11 PM [facility] Creatinine 4.2(H) 0.5 - 1.3 mg/dL 10/27/2024 4:11 PM [facility] eGFR 14(L) >59 10/27/2024 4:11 PM [facility] Comment:CKD-EPI (2020) in mL /min/1.73 sq meters. Sodium 143 136 - 145 mmol/L 10/27/2024 4:11 PM [facility] Potassium 5.2 3.4 - 5.3 mmol/L 10/27/2024 4:11 PM [facility] Chloride 105 98 - 107 mmol/L 10/27/2024 4:11 PM [facility] CO2 25 22 - 33 mmol/L 10/27/2024 4:11 PM [facility] Anion Gap 13 7 - 17 10/27/2024 4:11 PM [facility] Calcium 8.6(L) 8.7 - 10.5 mg/dL 10/27/2024 4:11 PM [facility] BUN/Creatinine Ratio 13 10.0 - 25.0 Ratio 10/27/2024 4:11 PM [facility] Blood (Plasma/Serum) 10/27/2024 3:26 PM EST 10/27/2024 3:45 PM EST Madhav Ryan MD [place] [address], [place] [address] * (ABNORMAL) POCT Glucose, Fingerstick (10/27/2024 1:13 [...] lead (STAT) (10/27/2024 7:41 AM EST) Pathologist [facility] Ventricular rate 60 BPM EKG [facility] Atrial rate 60 BPM EKG [facility] P-R interval 150 ms EKG [facility] QRS duration 84 ms EKG [facility] Q-T interval 488 ms EKG [facility] QTC calculation (Bazett) 488 ms EKG [facility] P axis 45 degrees EKG [facility] R axis 13 degrees EKG [facility] T axis 199 degrees EKG [facility] 10/27/2024 7:41 AM EST Narrative EKG [facility] - 10/27/2024 6:03 PM EST Normal sinus rhythm Septal infarct , age undetermined ST & T wave abnormality, consider anterolateral ischemia T wave abnormality, consider inferior ischemia Abnormal ECG When compared with ECG of 25-Oct-2024 10:44, Questionable change in QRS axis T wave inversion more evident in Anterior leads Confirmed by MD Hinojsoa Mohammed ([id number]) on 10/27/2024 6:03:18 PM Procedure [...] PM Madhav Ryan MD ECG ORDERABLES EKG [facility] * Heparin Assay (Anti Xa) (10/27/2024 7:29 AM EST) Anti Xa 0.39 IU/mL 10/27/2024 8:42 AM EST [facility] Comment: (NOTE) Heparin Thromboembolic/Standard/Full Dose Protocol: Therapeutic [...] LAB BLOOD ORDERAB LES Performing Organization Address [facility] [place] [address], [place] [address] * (ABNORMAL) Phosphorus (AM) (10/27/2024 7:29 AM EST) Phosphorus 4.6(H) 2.7 - 4.5 mg/dL 10/27/2024 8:48 AM EST [facility] Blood (Plasma/Serum) 10/27/2024 7:29 AM EST 10/27/2024 8:24 AM EST Neymar Mcfarland MD LAB BLOOD ORDERAB LES Performing Organization Address [facility] [place] [address], [place] [address] * Magnesium (AM) (10/27/2024 7:29 AM EST) Magnesium 1.8 1.6 - 2.7 mg/dL 10/27/2024 8:48 AM EST [facility] Blood (Plasma/Serum) 10/27/2024 7:29 AM EST 10/27/2024 8:24 AM EST Neymar Mcfarland MD LAB BLOOD ORDERAB LES Performing Organization Address [facility] [place] [address], [place] [address] * (ABNORMAL) Basic Metabolic Panel (AM) (10/27/2024 7:29 AM EST) Glucose 63(L) 65 - 99 mg/dL 10/27/2024 8:48 AM [facility] Comment:Fasting: <100 mg/dL, Non-Fasting: <200 mg/dL (ADA 2004) Blood Urea Nitrogen (BUN) 59(H) 8 - 21 mg/dL 10/27/2024 8:48 AM [facility] Creatinine 4.3(H) 0.5 - 1.3 mg/dL 10/27/2024 8:48 AM [facility] eGFR 13(L) >59 10/27/2024 8:48 AM [facility] Comment:CKD-EPI (2020) in mL /min/1.73 sq meters. Sodium 146(H) 136 - 145 mmol/L 10/27/2024 8:48 AM [facility] Potassium 3.7 3.4 - 5.3 mmol/L 10/27/2024 8:48 AM [facility] Chloride 107 98 - 107 mmol/L 10/27/2024 8:48 AM [facility] CO2 24 22 - 33 mmol/L 10/27/2024 8:48 AM [facility] Anion Gap 15 7 - 17 10/27/2024 8:48 AM [facility] Calcium 8.4(L) 8.7 - 10.5 mg/dL 10/27/2024 8:48 AM [facility] BUN/Creatinine Ratio 14 10.0 - 25.0 Ratio 10/27/2024 8:48 AM [facility] Blood (Plasma/Serum) 10/27/2024 7:29 AM EST 10/27/2024 8:24 AM EST Neymar Mcfarland MD LAB BLOOD ORDERAB LES [facility] [address] [place] [address], [place] [address] * (ABNORMAL) Complete Blood Count WITHOUT Differential - in AM (10/27/2024 7:29 AM EST) [facility] White Blood Cell Count 9.2 4.0 - 11.0 Thou/uL 10/27/2024 8:38 AM [facility] Platelet Count 321 150 - 450 Thou/uL 10/27/2024 8:38 AM [facility] Hemoglobin 9.0(L) 13.0 - 17.7 g/dL 10/27/2024 8:38 AM [facility] Hematocrit 29.8(L) 39.0 - 54.0 % 10/27/2024 8:38 AM [facility] Red Blood Cell Count 2.95(L) 4.50 - 6.20 Mil/uL 10/27/2024 8:38 AM [facility] MCV 101(H) 80 - 100 fL 10/27/2024 8:38 AM [facility] MCH 30.5 27.0 - 31.0 pg 10/27/2024 8:38 AM [facility] MCHC 30.2 30.0 - 36.0 g/dL 10/27/2024 8:38 AM [facility] RDW 16.9(H) 11.5 - 14.5 % 10/27/2024 8:38 AM [facility] MPV 11.6 7.5 - 12.5 fL 10/27/2024 8:38 AM [facility] Blood Blood specimen / Unknown 10/27/2024 7:29 AM EST 10/27/2024 8:24 AM EST Neymar Mcfarland MD [place] [address], [place] [address] * POCT Glucose, Fingerstick (10/27/2024 4:02 AM EST) [facility] POC Glucose 90 65 - 99 mg/dL 10/27/2024 4:03 AM EST Blood specimen / Unknown 10/27/2024 4:02 AM EST 10/27/2024 4:03 AM EST Fuad Winter MD POINT OF CARE TEST ORDERABLES Performing Organization Address [facility]/ZIP Co de Phone Number HOSPITAL LAB See Below * (ABNORMAL) POCT Glucose, Fingerstick (10/27/2024 1:20 AM EST) POC Glucose 155(H) 65 - 99 mg/dL 10/27/2024 1:25 AM EST Blood specimen / Unknown 10/27/2024 1:20 AM EST 10/27/2024 1:25 AM EST Fuad Winter MD POINT OF CARE TEST ORDERABLES Performing Organization Address [facility] de Phone Number HOSPITAL LAB See Below * POCT Glucose, Fingerstick (10/27/2024 12:29 AM EST) POC Glucose 74 65 - 99 mg/dL 10/27/2024 12:30 AM EST Blood specimen / Unknown 10/27/2024 12:29 AM EST 10/27/2024 12:30 AM EST Fuad Winter MD POINT OF CARE TEST ORDERABLES Performing Organization Address [facility] Phone Number HOSPITAL LAB See Below * (ABNORMAL) POCT Glucose, Fingerstick (10/26/2024 8:11 PM EST) POC Glucose 120(H) 65 - 99 mg/dL 10/26/2024 8:12 PM EST Blood specimen / Unknown 10/26/2024 8:11 PM EST 10/26/2024 8:12 PM EST Fuad Winter MD POINT OF CARE TEST ORDERABLES Performing Organization Address [facility] Co de Phone Number HOSPITAL LAB [...] T (Once) (10/26/2024 10:49 AM EST) Pathologist [facility] High Sensitivity Troponin T 2,071(HH) <23 ng/L 10/26/2024 11:53 AM EST [facility] Comment:Recurring Critical R esult. Previously phoned. Delta (Change) 532(H) <3 10/26/2024 11:53 AM EST [facility] Comment:Decreased Blood (Plasma/Serum) 10/26/2024 10:49 AM EST 10/26/2024 11:11 AM EST Neymar Mcfarland MD LAB BLOOD ORDERAB LES Performing Organization Address City/[facility] [place] [address], [place] [address] * POCT Glucose, Fingerstick (10/26/2024 8:48 AM EST) POC Glucose 90 65 - 99 mg/dL 10/26/2024 8:49 AM EST Blood specimen / Unknown 10/26/2024 8:48 AM EST 10/26/2024 8:49 AM EST Fuad Winter MD POINT OF CARE TEST ORDERABLES [facility]OSPITAL LAB See Below * Heparin Assay (Anti Xa) (10/26/2024 6:18 AM EST) Anti Xa 0.49 IU/mL 10/26/2024 7:38 AM EST [facility] Comment: (NOTE) Heparin Thromboembolic/Standard/Full Dose Protocol: Therapeutic [...] LAB BLOOD ORDERAB LES Performing Organization Address City/[facility]/[place] [address], [place] [address] * Phosphorus (AM) (10/26/2024 6:18 AM EST) Phosphorus 4.2 2.7 - 4.5 mg/dL 10/26/2024 7:45 AM EST [facility] Blood (Plasma/Serum) 10/26/2024 6:18 AM EST 10/26/2024 7:22 AM EST Neymar Mcfarland MD LAB BLOOD ORDERAB LES Performing Organization Address [facility] [place] [address], [place] [address] * Magnesium (AM) (10/26/2024 6:18 AM EST) Magnesium 1.9 1.6 - 2.7 mg/dL 10/26/2024 7:45 AM EST [facility] Blood (Plasma/Serum) 10/26/2024 6:18 AM EST 10/26/2024 7:22 AM EST Neymar Mcfarland MD LAB BLOOD ORDERAB LES Performing Organization Address [facility] [place] [address], [place] [address] * (ABNORMAL) Basic Metabolic Panel (AM) (10/26/2024 6:18 AM EST) Glucose 79 65 - 99 mg/dL 10/26/2024 7:45 AM [facility] Comment:Fasting: <100 mg/dL, Non-Fasting: <200 mg/dL (ADA 2004) Blood Urea Nitrogen (BUN) 61(H) 8 - 21 mg/dL 10/26/2024 7:45 AM [facility] Creatinine 4.0(H) 0.5 - 1.3 mg/dL 10/26/2024 7:45 AM [facility] eGFR 14(L) >59 10/26/2024 7:45 AM [facility] Comment:CKD-EPI (2020) in mL /min/1.73 sq meters. Sodium 145 136 - 145 mmol/L 10/26/2024 7:45 AM [facility] Potassium 4.2 3.4 - 5.3 mmol/L 10/26/2024 7:45 AM [facility] Chloride 107 98 - 107 mmol/L 10/26/2024 7:45 AM [facility] CO2 23 22 - 33 mmol/L 10/26/2024 7:45 AM [facility] Anion Gap 15 7 - 17 10/26/2024 7:45 AM [facility] Calcium 7.9(L) 8.7 - 10.5 mg/dL 10/26/2024 7:45 AM [facility] BUN/Creatinine Ratio 15 10.0 - 25.0 Ratio 10/26/2024 7:45 AM [facility] Blood (Plasma/Serum) 10/26/2024 6:18 AM EST 10/26/2024 7:22 AM EST Neymar Mcfarland MD LAB BLOOD ORDERAB LES [address] [address], [address] [address] * (ABNORMAL) Complete Blood Count WITHOUT Differential - in AM (10/26/2024 6:18 AM EST) White Blood Cell Count 9.7 4.0 - 11.0 Thou/uL 10/26/2024 7:29 AM [facility] Platelet Count 328 150 - 450 Thou/uL 10/26/2024 7:29 AM [facility] Hemoglobin 8.6(L) 13.0 - 17.7 g/dL 10/26/2024 7:29 AM [facility] Hematocrit 27.9(L) 39.0 - 54.0 % 10/26/2024 7:29 AM [facility] Red Blood Cell Count 2.78(L) 4.50 - 6.20 Mil/uL 10/26/2024 7:29 AM [facility] MCV 100 80 - 100 fL 10/26/2024 7:29 AM [facility] MCH 30.9 27.0 - 31.0 pg 10/26/2024 7:29 AM [facility] MCHC 30.8 30.0 - 36.0 g/dL 10/26/2024 7:29 AM [facility] RDW 16.8(H) 11.5 - 14.5 % 10/26/2024 7:29 AM [facility] MPV 11.6 7.5 - 12.5 fL 10/26/2024 7:29 AM [facility] Blood Blood specimen / Unknown 10/26/2024 6:18 AM EST 10/26/2024 7:22 AM EST Neymar Mcfarland MD [place] [address], [place] [address] * (ABNORMAL) POCT Glucose, Fingerstick (10/26/2024 3:58 AM EST) POC Glucose 100(H) 65 - 99 mg/dL 10/26/2024 3:58 AM EST Blood specimen / Unknown 10/26/2024 3:58 AM EST 10/26/2024 3:59 AM EST Fuad Winter MD POINT OF CARE TEST ORDERABLES [facility]OSPITAL LAB See Below * (ABNORMAL) POCT Glucose, Fingerstick (10/25/2024 11:49 PM EST) Pathologist [facility] POC Glucose 125(H) 65 - 99 mg/dL 10/25/2024 11:50 PM EST Blood specimen / Unknown 10/25/2024 11:49 PM EST 10/25/2024 11:50 PM EST Fuad Winter MD POINT OF CARE TEST ORDERABLES [facility]OSPITAL LAB See Below * Heparin Assay (Anti Xa) (10/25/2024 11:35 PM EST) [facility] Anti Xa 0.44 IU/mL 10/26/2024 12:23 AM EST [facility] Comment: (NOTE) Heparin Thromboembolic/Standard/Full Dose Protocol: Therapeutic [...] LAB BLOOD ORDERAB LES Performing Organization Address [facility] [place] [address], [place] [address] * (ABNORMAL) POCT Glucose, Fingerstick (10/25/2024 8:20 PM EST) [facility] POC Glucose 222(H) 65 - 99 mg/dL 10/25/2024 8:21 PM EST Blood specimen / Unknown 10/25/2024 8:20 PM EST 10/25/2024 8:21 PM EST Fuad Winter MD POINT OF CARE TEST ORDERABLES Performing Organization Address City/[facility] Co de Phone Number HOSPITAL LAB See Below * (ABNORMAL) POCT Glucose, Fingerstick (10/25/2024 5:39 PM EST) Pathologist [facility] POC Glucose 135(H) 65 - 99 mg/dL 10/25/2024 5:44 PM EST Blood specimen / Unknown 10/25/2024 5:39 PM EST 10/25/2024 5:44 PM EST Fuad Winter MD POINT OF CARE TEST ORDERABLES HOSPITAL LAB See Below * Heparin Assay (Anti Xa) (10/25/2024 5:03 PM EST) Anti Xa 0.57 IU/mL 10/25/2024 5:53 PM EST [facility] Comment: (NOTE) Heparin Thromboembolic/Standard/Full Dose Protocol: Therapeutic [...] LAB BLOOD ORDERAB LES Performing Organization Address [facility] [place] [address], [place] [address] * (ABNORMAL) High Sensitivity Troponin T (now and in 3 hours) (10/25/2024 5:03 PM EST) High Sensitivity Troponin T 2,468(HH) <23 ng/L 10/25/2024 6:02 PM [facility] Comment:Recurring Critical R esult. Previously phoned. Delta (Change) 135(H) <3 10/25/2024 6:02 PM [facility] Comment:Decreased Blood (Plasma/Serum) 10/25/2024 5:03 PM EST 10/25/2024 5:25 PM EST Neymar Mcfarland MD LAB BLOOD ORDERAB LES Performing Organization Address [facility] [place] [address], [place] [address] * (ABNORMAL) High Sensitivity Troponin T (now and in 3 hours) (10/25/2024 3:38 PM EST) High Sensitivity Troponin T 2,413(HH) <23 ng/L 10/25/2024 4:21 PM [facility] Comment:Recurring Critical R esult. Previously phoned. Delta (Change) 190(H) <3 10/25/2024 4:21 PM [facility] Comment:Decreased Blood (Plasma/Serum) 10/25/2024 3:38 PM EST 10/25/2024 3:48 PM EST Neymar Mcfarland MD LAB BLOOD ORDERAB LES Performing Organization Address [facility] [place] [address], [place] [address] * (ABNORMAL) High Sensitivity Troponin T (10/25/2024 12:47 PM EST) High Sensitivity Troponin T 2,394(HH) <23 ng/L 10/25/2024 2:04 PM [facility] Comment:Recurring Critical R esult. Previously phoned. Delta (Change) 209(H) <3 10/25/2024 2:04 PM [facility] Comment:Decreased Plasma/Serum 10/25/2024 12:4 7 PM EST 10/25/2024 1:34 PM EST Bryant Gracia PA-C LAB BLOOD ORDERABLES Performing Organization Address [facility] [place] [address], [place] [address] * Heparin Assay (Anti Xa) (10/25/2024 12:47 PM EST) Pathologist [facility] Anti Xa 0.47 IU/mL 10/25/2024 2:06 PM [facility] Comment: (NOTE) Heparin Thromboembolic/Standard/Full Dose Protocol: [...] LAB BLOOD ORDERAB LES Performing Organization Address [facility]/State/ZIP Co de Phone Number [address] [address], [address] [address] * (ABNORMAL) POCT Glucose, Fingerstick (10/25/2024 12:33 [...] AM EST) Ventricular rate 76 BPM EKG [facility] Atrial rate 76 BPM EKG [facility] P-R interval 152 ms EKG [facility] QRS duration 82 ms EKG [facility] Q-T interval 450 ms EKG [facility] QTC calculation (Bazett) 506 ms EKG [facility] P axis 67 degrees EKG [facility] R axis 69 degrees EKG [facility] T axis 237 degrees EKG [facility] 10/25/2024 10:4 4 AM EST Narrative EKG [facility] - 10/25/2024 8:09 PM EST Normal sinus rhythm ST & T wave abnormality, consider lateral ischemia Prolonged QT Abnormal ECG When compared with ECG of 23-Oct-2024 17:43, Nonspecific T wave abnormality, worse in Inferior leads T wave inversion less evident in Lateral leads Confirmed by DO Ladd Kyla ([id number]) on 10/25/2024 8:09:06 PM Procedure Note Jessica Ladd DO - 10/25/[address] & T wave abnormality, consider lateral ischemia Prolonged QT Abnormal ECG When compared with ECG of 23-Oct-2024 17:43, Nonspecific T wave abnormality, worse in Inferior leads T wave inversion less evident in Lateral leads Confirmed by DO Ladd Kyla ([id number]) on 10/25/2024 8:09:06 PM Fuad Winter MD ECG ORDERABLE S [facility] * (ABNORMAL) High Sensitivity Troponin T (10/25/2024 10:25 AM EST) High Sensitivity Troponin T 2,514(HH) <23 ng/L 10/25/2024 11:49 AM EST [facility] Comment:Recurring Critical R esult. Previously phoned. Delta (Change) 89(H) <3 10/25/2024 11:49 AM EST [facility] Comment:Decreased Plasma/Serum 10/25/2024 10:2 5 AM EST 10/25/2024 11:17 AM EST Bryant Gracia PA-C LAB BLOOD ORDERABLES [facility] [address] [place] [address], [address] [address] * (ABNORMAL) POCT Glucose, Fingerstick (10/25/2024 9:20 AM EST) [facility] POC Glucose 129(H) 65 - 99 mg/dL 10/25/2024 9:21 AM EST Blood specimen / Unknown 10/25/2024 9:20 AM EST 10/25/2024 9:21 AM EST Fuad Winter MD POINT OF CARE TEST ORDERABLES HOSPITAL LAB See Below * CREATINE KINASE (CK) (10/25/2024 8:27 AM EST) [facility] Creatine Kinase (CK) 76 24 - 204 U/L 10/25/2024 10:25 AM EST [facility] Plasma/Serum 10/25/2024 8:27 AM EST 10/25/2024 9:16 AM EST Neymar Mcfarland MD LAB BLOOD ORDERAB LES Performing Organization Address [facility] [place] [address], [place] [address] * (ABNORMAL) High Sensitivity Troponin T (10/25/2024 8:27 AM EST) [facility] High Sensitivity Troponin T 2,603(HH) <23 ng/L 10/25/2024 10:25 AM EST [facility] Delta (Change) NO PREVIOUS RESULT <3 10/25/2024 10:25 AM EST [facility] Plasma/Serum 10/25/2024 8:27 AM EST 10/25/2024 9:16 AM EST Neymar Mcfarland MD LAB BLOOD ORDERAB LES Performing Organization Address [facility] [place] [address], [place] [address] * Phosphorus (AM) (10/25/2024 8:27 AM EST) [facility] Phosphorus 3.8 2.7 - 4.5 mg/dL 10/25/2024 10:25 AM [facility] Blood (Plasma/Serum) 10/25/2024 8:27 AM EST 10/25/2024 9:16 AM EST Neymar Mcfarland MD LAB BLOOD ORDERAB LES Performing Organization Address City/[facility]/[place] [address], [place] [address] * Magnesium (AM) (10/25/2024 8:27 AM EST) Magnesium 2.0 1.6 - 2.7 mg/dL 10/25/2024 10:25 AM [facility] Blood (Plasma/Serum) 10/25/2024 8:27 AM EST 10/25/2024 9:16 AM EST Neymar Mcfarland MD LAB BLOOD ORDERAB LES Performing Organization Address [facility] [place] [address], [place] [address] * (ABNORMAL) Basic Metabolic Panel (AM) (10/25/2024 8:27 AM EST) Glucose 123(H) 65 - 99 mg/dL 10/25/2024 10:25 AM [facility] Comment:Fasting: <100 mg/dL, Non-Fasting: <200 mg/dL (ADA 2005) Blood Urea Nitrogen (BUN) 64(H) 8 - 21 mg/dL 10/25/2024 10:25 AM [facility] Creatinine 3.9(H) 0.5 - 1.3 mg/dL 10/25/2024 10:25 AM [facility] eGFR 15(L) >59 10/25/2024 10:25 AM [facility] Comment:CKD-EPI (2020) in mL /min/1.73 sq meters. Sodium 141 136 - 145 mmol/L 10/25/2024 10:25 AM [facility] Potassium 4.6 3.4 - 5.3 mmol/L 10/25/2024 10:25 AM [facility] Chloride 104 98 - 107 mmol/L 10/25/2024 10:25 AM [facility] CO2 21(L) 22 - 33 mmol/L 10/25/2024 10:25 AM [facility] Anion Gap 16 7 - 17 10/25/2024 10:25 AM [facility] Calcium 7.8(L) 8.7 - 10.5 mg/dL 10/25/2024 10:25 AM [facility] BUN/Creatinine Ratio 16 10.0 - 25.0 Ratio 10/25/2024 10:25 AM [facility] Blood (Plasma/Serum) 10/25/2024 8:27 AM EST 10/25/2024 9:16 AM EST Neymar Mcfarland MD LAB BLOOD ORDERAB LES Performing Organization Address City/State/[facility] [place] [address], [place] [address] * (ABNORMAL) Complete Blood Count WITHOUT Differential - in AM (10/25/2024 8:27 AM EST) White Blood Cell Count 12.5(H) 4.0 - 11.0 Thou/uL 10/25/2024 9:39 AM [facility] Platelet Count 361 150 - 450 Thou/uL 10/25/2024 9:39 AM [facility] Hemoglobin 9.2(L) 13.0 - 17.7 g/dL 10/25/2024 9:39 AM [facility] Hematocrit 29.9(L) 39.0 - 54.0 % 10/25/2024 9:39 AM [facility] Red Blood Cell Count 3.01(L) 4.50 - 6.20 Mil/uL 10/25/2024 9:39 AM [facility] MCV 99 80 - 100 fL 10/25/2024 9:39 AM [facility] MCH 30.6 27.0 - 31.0 pg 10/25/2024 9:39 AM [facility] MCHC 30.8 30.0 - 36.0 g/dL 10/25/2024 9:39 AM [facility] RDW 16.7(H) 11.5 - 14.5 % 10/25/2024 9:39 AM [facility] MPV 11.3 7.5 - 12.5 fL 10/25/2024 9:39 AM [facility] Blood Blood specimen / Unknown 10/25/2024 8:27 AM EST 10/25/2024 9:16 AM EST Neymar Mcfarland MD LAB BLOOD ORDERAB LES Performing Organization Address City/State/[facility] [place] [address], [place] [address] * Heparin Assay (Anti Xa) (10/25/2024 5:21 AM EST) Anti Xa 0.51 IU/mL 10/25/2024 5:55 AM [facility] Comment: (NOTE) Heparin Thromboembolic/Standard/Full Dose Protocol: [...] LAB BLOOD ORDERAB LES Performing Organization Address [facility] [place] [address], [place] [address] * (ABNORMAL) POCT Glucose, Fingerstick (10/25/2024 5:15 AM EST) Pathologist [facility] POC Glucose 115(H) 65 - 99 mg/dL 10/25/2024 5:15 AM EST Blood specimen / Unknown 10/25/2024 5:15 AM EST 10/25/2024 5:16 AM EST Fuad Winter MD POINT OF CARE TEST ORDERABLES Performing Organization Address [facility] Co de Phone Number HOSPITAL LAB [...] Xa 0.58 IU/mL 10/24/2024 10:50 PM EST [facility] Comment: (NOTE) Heparin Thromboembolic/Standard/Full Dose Protocol: Therapeutic [...] LAB BLOOD ORDERAB LES Performing Organization Address [facility] [place] [address], [place] [address] * (ABNORMAL) POCT Glucose, Fingerstick (10/24/2024 8:23 PM EST) Pathologist [facility] POC Glucose 211(H) 65 - 99 mg/dL 10/24/2024 8:24 PM EST Blood specimen / Unknown 10/24/2024 8:23 PM EST 10/24/2024 8:24 PM EST Fuad Winter MD POINT OF CARE TEST ORDERABLES Performing Organization Address [facility] de Phone Number HOSPITAL LAB See Below * Heparin Assay (Anti Xa) (10/24/2024 4:14 PM EST) Pathologist [facility] Anti Xa 0.56 IU/mL 10/24/2024 5:08 PM EST [facility] Comment: (NOTE) Heparin Thromboembolic/Standard/Full Dose Protocol: Therapeutic [...] LAB BLOOD ORDERAB LES Performing Organization Address [facility] Co de Phone Number [address] [address], [address] [address] * (ABNORMAL) POCT Glucose, Fingerstick (10/24/2024 4:07 PM EST) POC Glucose 152(H) 65 - 99 mg/dL 10/24/2024 4:09 PM EST Blood specimen / Unknown 10/24/2024 4:07 PM EST 10/24/2024 4:09 PM EST Fuad Winter MD POINT OF CARE TEST ORDERABLES Performing Organization Address [facility] Co de Phone Number [facility] LAB See Below * (ABNORMAL) POCT Glucose, Fingerstick (10/24/2024 11:13 AM EST) POC Glucose 158(H) 65 - 99 mg/dL 10/24/2024 11:14 AM EST Blood specimen / Unknown 10/24/2024 11:13 AM EST 10/24/2024 11:14 AM EST Fuad Winter MD POINT OF CARE TEST ORDERABLES Performing Organization Address [facility] Phone Number [facility] LAB See Below * XR Chest [...] Glucose, Fingerstick (10/24/2024 8:39 AM EST) Pathologist [facility] POC Glucose 159(H) 65 - 99 mg/dL 10/24/2024 9:03 AM EST Blood specimen / Unknown 10/24/2024 8:39 AM EST 10/24/2024 9:03 AM EST Fuad Winter MD POINT OF CARE TEST ORDERABLES Performing Organization Address City/[facility]/ZIP Co de Phone Number HOSPITAL LAB See Below * (ABNORMAL) B-Hydroxybutyrate (10/24/2024 7:11 AM EST) [facility] B-Hydroxybutyrate 2.36(H) <0.28 mmol/L 10/24/2024 10:30 AM EST [facility] Comment: In the presence of uncontrolled diabetes, [...] MD LAB BLOOD ORDERABLES Performing Organization Address [facility]/[place] [address], [place] [address] * Heparin Assay (Anti Xa) (10/24/2024 7:11 AM EST) Anti Xa 0.17 IU/mL 10/24/2024 8:02 AM EST [facility] Comment: (NOTE) Heparin Thromboembolic/Standard/Full Dose Protocol: Therapeutic [...] MD LAB BLOOD ORDERABLES Performing Organization Address [facility] [place] [address], [place] [address] * Phosphorus (AM) (10/24/2024 7:11 AM EST) Phosphorus 4.5 2.7 - 4.5 mg/dL 10/24/2024 8:15 AM EST [facility] Blood (Plasma/Serum) 10/24/2024 7:11 AM EST 10/24/2024 7:48 AM EST Nyemar Mcfarland MD LAB BLOOD ORDERAB LES Performing Organization Address [facility] [place] [address], [place] [address] * Magnesium (AM) (10/24/2024 7:11 AM EST) Magnesium 1.8 1.6 - 2.7 mg/dL 10/24/2024 8:15 AM [facility] Blood (Plasma/Serum) 10/24/2024 7:11 AM EST 10/24/2024 7:48 AM EST Neymar Mcfarland MD LAB BLOOD ORDERAB LES Performing Organization Address City/[facility] [place] [address], [place] [address] * (ABNORMAL) Basic Metabolic Panel (AM) (10/24/2024 7:11 AM EST) Glucose 149(H) 65 - 99 mg/dL 10/24/2024 8:15 AM EST [facility] Comment:Fasting: <100 mg/dL, Non-Fasting: <200 mg/dL (ADA 2005) Blood Urea Nitrogen (BUN) 68(H) 8 - 21 mg/dL 10/24/2024 8:15 AM [facility] Creatinine 4.0(H) 0.5 - 1.3 mg/dL 10/24/2024 8:15 AM [facility] eGFR 14(L) >59 10/24/2024 8:15 AM [facility] Comment:CKD-EPI (2020) in mL /min/1.73 sq meters. Sodium 143 136 - 145 mmol/L 10/24/2024 8:15 AM [facility] Potassium 4.9 3.4 - 5.3 mmol/L 10/24/2024 8:15 AM [facility] Chloride 105 98 - 107 mmol/L 10/24/2024 8:15 AM [facility] CO2 19(L) 22 - 33 mmol/L 10/24/2024 8:15 AM [facility] Anion Gap 19(H) 7 - 17 10/24/2024 8:15 AM [facility] Calcium 7.8(L) 8.7 - 10.5 mg/dL 10/24/2024 8:15 AM [facility] BUN/Creatinine Ratio 17 10.0 - 25.0 Ratio 10/24/2024 8:15 AM [facility] Blood (Plasma/Serum) 10/24/2024 7:11 AM EST 10/24/2024 7:48 AM EST Neymar Mcfarland MD [place] [address], [place] [address] * (ABNORMAL) Complete Blood Count WITHOUT Differential - in AM (10/24/2024 7:11 AM EST) White Blood Cell Count 12.4(H) 4.0 - 11.0 Thou/uL 10/24/2024 7:58 AM [facility] Platelet Count 360 150 - 450 Thou/uL 10/24/2024 7:58 AM [facility] Hemoglobin 9.3(L) 13.0 - 17.7 g/dL 10/24/2024 7:58 AM [facility] Hematocrit 30.1(L) 39.0 - 54.0 % 10/24/2024 7:58 AM [facility] Red Blood Cell Count 3.06(L) 4.50 - 6.20 Mil/uL 10/24/2024 7:58 AM [facility] MCV 98 80 - 100 fL 10/24/2024 7:58 AM [facility] MCH 30.4 27.0 - 31.0 pg 10/24/2024 7:58 AM [facility] MCHC 30.9 30.0 - 36.0 g/dL 10/24/2024 7:58 AM [facility] RDW 16.8(H) 11.5 - 14.5 % 10/24/2024 7:58 AM [facility] MPV 11.3 7.5 - 12.5 fL 10/24/2024 7:58 AM [facility] Blood Blood specimen / Unknown 10/24/2024 7:11 AM EST 10/24/2024 7:48 AM EST Neymar Mcfarland MD LAB BLOOD ORDERAB LES Performing Organization Address City/[facility]/[place] [address], [place] [address] * Phosphorus (Early AM) (10/24/2024 3:01 AM EST) Phosphorus 3.8 2.7 - 4.5 mg/dL 10/24/2024 3:36 AM [facility] Blood (Plasma/Serum) 10/24/2024 3:01 AM EST 10/24/2024 3:12 AM EST Macy Adam [place] [address], [place] [address] * Magnesium (Routine) (10/24/2024 3:01 AM EST) Magnesium 1.8 1.6 - 2.7 mg/dL 10/24/2024 3:36 AM [facility] Blood (Plasma/Serum) 10/24/2024 3:01 AM EST 10/24/2024 3:12 AM EST Macy Adam [place] [address], [place] [address] * (ABNORMAL) Basic Metabolic Panel (Routine) (10/24/2024 3:01 AM EST) Glucose 128(H) 65 - 99 mg/dL 10/24/2024 3:36 AM [facility] Comment:Fasting: <100 mg/dL, Non-Fasting: <200 mg/dL (ADA 2005) Blood Urea Nitrogen (BUN) 67(H) 8 - 21 mg/dL 10/24/2024 3:36 AM [facility] Creatinine 3.8(H) 0.5 - 1.3 mg/dL 10/24/2024 3:36 AM [facility] eGFR 15(L) >59 10/24/2024 3:36 AM [facility] Comment:CKD-EPI (2020) in mL /min/1.73 sq meters. Sodium 143 136 - 145 mmol/L 10/24/2024 3:36 AM [facility] Potassium 4.4 3.4 - 5.3 mmol/L 10/24/2024 3:36 AM [facility] Chloride 107 98 - 107 mmol/L 10/24/2024 3:36 AM [facility] CO2 18(L) 22 - 33 mmol/L 10/24/2024 3:36 AM [facility] Anion Gap 18(H) 7 - 17 10/24/2024 3:36 AM [facility] Calcium 7.4(L) 8.7 - 10.5 mg/dL 10/24/2024 3:36 AM [facility] BUN/Creatinine Ratio 18 10.0 - 25.0 Ratio 10/24/2024 3:36 AM EST [facility] Blood (Plasma/Serum) 10/24/2024 3:01 AM EST 10/24/2024 3:12 AM EST Macy Adam DO LAB BLOOD ORDERABLE S Performing Organization Address [facility] Co de Phone Number [facility] [address] [place] [address], [address] [address] * (ABNORMAL) POCT Glucose, Fingerstick (10/24/2024 1:53 AM EST) POC Glucose 155(H) 65 - 99 mg/dL 10/24/2024 3:46 AM EST Blood specimen / Unknown 10/24/2024 1:53 AM EST 10/24/2024 3:46 AM EST Fuad Winter MD POINT OF CARE TEST ORDERABLES Performing Organization Address [facility] Co de Phone Number HOSPITAL LAB See Below * Heparin Assay (Anti Xa) (10/23/2024 10:13 PM EST) Anti Xa 0.34 IU/mL 10/23/2024 11:19 PM EST [facility] Comment: (NOTE) Heparin Thromboembolic/Standard/Full Dose Protocol: Therapeutic [...] LAB BLOOD ORDERAB LES Performing Organization Address [facility] [place] [address], [place] [address] * (ABNORMAL) POCT Glucose, Fingerstick (10/23/2024 9:02 PM EST) POC Glucose 155(H) 65 - 99 mg/dL 10/23/2024 9:02 PM EST Blood specimen / Unknown 10/23/2024 9:02 PM EST 10/23/2024 9:03 PM EST Fuad Winter MD POINT OF CARE TEST ORDERABLES [facility]ITAL LAB See Below * (ABNORMAL) POCT Glucose, Fingerstick (10/23/2024 6:22 PM EST) Pathologist [facility] POC Glucose 168(H) 65 - 99 mg/dL 10/23/2024 6:23 PM EST Blood specimen / Unknown 10/23/2024 6:22 PM EST 10/23/2024 6:23 PM EST Fuad Winter MD POINT OF CARE TEST ORDERABLES Performing Organization Address City/[facility]/ZIP Co de Phone Number HOSPITAL LAB See Below * Magnesium (STAT) (10/23/2024 6:02 PM EST) [facility] Magnesium 1.8 1.6 - 2.7 mg/dL 10/23/2024 7:21 PM EST [facility] Blood (Plasma/Serum) 10/23/2024 6:02 PM EST 10/23/2024 6:47 PM EST Adam Mullen MD LAB BLOOD ORDERABL ES Performing Organization Address [facility] [place] [address], [place] [address] * Phosphorus (STAT) (10/23/2024 6:02 PM EST) [facility] Phosphorus 3.9 2.7 - 4.5 mg/dL 10/23/2024 7:21 PM EST [facility] Blood (Plasma/Serum) 10/23/2024 6:02 PM EST 10/23/2024 6:47 PM EST Adam Mullen MD LAB BLOOD ORDERABL ES Performing Organization Address [facility] [place] [address], [place] [address] * (ABNORMAL) Basic Metabolic Panel (STAT) (10/23/2024 6:02 PM EST) Glucose 173(H) 65 - 99 mg/dL 10/23/2024 7:21 PM [facility] Comment:Fasting: <100 mg/dL, Non-Fasting: <200 mg/dL (ADA 2004) Blood Urea Nitrogen (BUN) 71(H) 8 - 21 mg/dL 10/23/2024 7:21 PM [facility] Creatinine 4.1(H) 0.5 - 1.3 mg/dL 10/23/2024 7:21 PM [facility] eGFR 14(L) >59 10/23/2024 7:21 PM [facility] Comment:CKD-EPI (2020) in mL /min/1.73 sq meters. Sodium 145 136 - 145 mmol/L 10/23/2024 7:21 PM [facility] Potassium 5.0 3.4 - 5.3 mmol/L 10/23/2024 7:21 PM [facility] Chloride 109(H) 98 - 107 mmol/L 10/23/2024 7:21 PM [facility] CO2 21(L) 22 - 33 mmol/L 10/23/2024 7:21 PM [facility] Anion Gap 15 7 - 17 10/23/2024 7:21 PM [facility] Calcium 7.0(L) 8.7 - 10.5 mg/dL 10/23/2024 7:21 PM [facility] BUN/Creatinine Ratio 17 10.0 - 25.0 Ratio 10/23/2024 7:21 PM [facility] Blood (Plasma/Serum) 10/23/2024 6:02 PM EST 10/23/2024 6:47 PM EST Adam Mullen MD [place] [address], [address] [address] * ECG 12 lead (STAT) (10/23/2024 5:43 PM EST) Ventricular rate 73 BPM EKG [facility] Atrial rate 73 BPM EKG [facility] P-R interval 148 ms EKG [facility] QRS duration 80 ms EKG [facility] Q-T interval 460 ms EKG [facility] QTC calculation (Bazett) 507 ms EKG [facility] P axis 54 degrees EKG [facility] R axis 66 degrees EKG [facility] T axis 152 degrees EKG [facility] 10/23/2024 5:43 PM EST Narrative EKG [facility] - 10/24/2024 7:46 AM EST Normal sinus rhythm Nonspecific T wave abnormality Prolonged QT Abnormal ECG Confirmed by MD Wade John ([id number]) on 10/24/2024 7:46:04 AM Procedure Note Raciel Wade MD - 10/24/2024 Normal sinus rhythm Nonspecific T wave abnormality Prolonged QT Abnormal ECG Confirmed by MD Wade John ([id number]) on 10/24/2024 7:46:04 AM Bryant Gracia PA-C ECG ORDERABLES [facility] * Heparin Assay (Anti Xa) (10/23/2024 3:53 PM EST) Anti Xa 0.42 IU/mL 10/23/2024 5:30 PM EST [facility] Comment: (NOTE) Heparin Thromboembolic/Standard/Full Dose Protocol: Therapeutic [...] LAB BLOOD ORDERAB LES Performing Organization Address [facility] [place] [address], [place] [address] * (ABNORMAL) POCT Glucose, Fingerstick (10/23/2024 12:59 PM EST) POC Glucose 158(H) 65 - 99 mg/dL 10/23/2024 1:00 PM EST Blood specimen / Unknown 10/23/2024 12:59 PM EST 10/23/2024 1:00 PM EST Fuad Winter MD POINT OF CARE TEST ORDERABLES [facility]OSPITAL LAB See Below * Albumin (10/23/2024 10:31 AM EST) Albumin 3.5 3.4 - 4.8 g/dL 10/23/2024 12:13 PM EST [facility] Blood (Plasma/Serum) 10/23/2024 10:31 AM EST 10/23/2024 11:36 AM EST Neymar Mcfarland MD LAB BLOOD ORDERAB LES Performing Organization Address [facility] [place] [address], [place] [address] * (ABNORMAL) Calcium, Ionized (10/23/2024 10:31 AM EST) Calcium, Ionized 0.88(L) 1.17 - 1.33 mmol/L 10/23/2024 12:16 PM [facility] Blood Blood specimen / Unknown 10/23/2024 10:31 AM EST 10/23/2024 11:36 AM EST Neymar Mcfarland MD LAB BLOOD ORDERAB LES Performing Organization Address [facility] [place] [address], [place] [address] * (ABNORMAL) Calcium, Total (10/23/2024 10:31 AM EST) Calcium 7.4(L) 8.7 - 10.5 mg/dL 10/23/2024 12:13 PM EST [facility] Blood (Plasma/Serum) 10/23/2024 10:31 AM EST 10/23/2024 11:36 AM EST Neymar Mcfarland MD LAB BLOOD ORDERAB LES Performing Organization Address City/[facility]/[place] [address], [address] [address] * (ABNORMAL) PTH, Intact (10/23/2024 10:31 AM EST) PTH, Intact 579(H) 15 - 65 pg/mL 10/23/2024 12:23 PM [facility] Blood (Plasma/Serum) 10/23/2024 10:31 AM EST 10/23/2024 11:36 AM EST Neymar Mcfarland MD LAB BLOOD ORDERAB LES [address] [address], [place] [address] * POCT Glucose, Fingerstick (10/23/2024 8:36 AM EST) POC Glucose 82 65 - 99 mg/dL 10/23/2024 8:37 AM EST Blood specimen / Unknown 10/23/2024 8:36 AM EST 10/23/2024 8:37 AM EST Fuad Winter MD POINT OF CARE TEST ORDERABLES [facility]OSPITAL LAB See Below * (ABNORMAL) LIPID PANEL (10/23/2024 6:05 AM EST) Cholesterol, Total 110 <200 mg/dL 2024 8:30 AM [facility] Triglycerides 141 <150 mg/dL 10/23/2024 8:30 AM [facility] Cholesterol, HDL 30(L) >39 mg/dL 10/23/19 8:30 AM [facility] Estimated LDL 52 <130 mg/dL 10/23/2024 8:30 AM [facility] Comment: NCEP Guidelines: ?< 100 mg/dL ??Optimal 100 - 129 mg/dL ??Near Optimal/Above Optimal 130 - 159 mg/dL ??Borderline High 160 - 189 mg/dL ??High ??>/= 190 mg/dL ??Very High Cholesterol/HDL Ratio 3.7 0.0 - 5.0 Ratio 10/23/2024 8:30 AM [facility] Comment: Relative Risk ? Ratio - Male ? Ratio - Female ?0.5 ?3.4 ?3.3 ?1.0 ?5.0 ?4.4 ?2.0 ?9.6 ?7.1 ?3.0 ? 23.4 ? 11.0 Plasma/Serum 10/23/2024 6:05 AM EST 10/23/2024 7:46 AM EST Adilia Woo MD LAB BLOOD ORDERABLES Performing Organization Address City/State/[facility] [place] [address], [place] [address] * Heparin Assay (Anti Xa) (10/23/2024 6:05 AM EST) Anti Xa 0.54 IU/mL 10/23/2024 8:02 AM [facility] Comment: (NOTE) Heparin Thromboembolic/Standard/Full Dose Protocol: [...] MD LAB BLOOD ORDERABLES Performing Organization Address City/State/[facility] Co de Phone Number [facility] [address] [place] [address], [address] [address] * Phosphorus (AM) (10/23/2024 6:05 AM EST) Phosphorus 3.9 2.7 - 4.5 mg/dL 10/23/2024 8:30 AM [facility] Blood (Plasma/Serum) 10/23/2024 6:05 AM EST 10/23/2024 7:46 AM EST Neymar Mcfarland MD LAB BLOOD ORDERAB LES Performing Organization Address [facility] [place] [address], [place] [address] * Magnesium (AM) (10/23/2024 6:05 AM EST) Magnesium 1.8 1.6 - 2.7 mg/dL 10/23/2024 8:30 AM [facility] Blood (Plasma/Serum) 10/23/2024 6:05 AM EST 10/23/2024 7:46 AM EST Neymar Mcfarland MD LAB BLOOD ORDERAB LES Performing Organization Address [facility] [place] [address], [place] [address] * (ABNORMAL) Basic Metabolic Panel (AM) (10/23/2024 6:05 AM EST) Glucose 66 65 - 99 mg/dL 10/23/2024 8:30 AM [facility] Comment:Fasting: <100 mg/dL, Non-Fasting: <200 mg/dL (ADA 2005) Blood Urea Nitrogen (BUN) 74(H) 8 - 21 mg/dL 10/23/2024 8:30 AM [facility] Creatinine 4.1(H) 0.5 - 1.3 mg/dL 10/23/2024 8:30 AM [facility] eGFR 14(L) >59 10/23/2024 8:30 AM [facility] Comment:CKD-EPI (2020) in mL /min/1.73 sq meters. Sodium 147(H) 136 - 145 mmol/L 10/23/2024 8:30 AM [facility] Potassium 4.0 3.4 - 5.3 mmol/L 10/23/2024 8:30 AM [facility] Chloride 110(H) 98 - 107 mmol/L 10/23/2024 8:30 AM [facility] CO2 18(L) 22 - 33 mmol/L 10/23/2024 8:30 AM [facility] Anion Gap 19(H) 7 - 17 10/23/2024 8:30 AM [facility] Calcium 7.3(L) 8.7 - 10.5 mg/dL 10/23/2024 8:30 AM [facility] BUN/Creatinine Ratio 18 10.0 - 25.0 Ratio 10/23/2024 8:30 AM [facility] Blood (Plasma/Serum) 10/23/2024 6:05 AM EST 10/23/2024 7:46 AM EST Neymar Mcfarland MD LAB BLOOD ORDERAB LES Performing Organization Address City/State/[facility] [place] [address], [place] [address] * (ABNORMAL) Complete Blood Count WITHOUT Differential - in AM (10/23/2024 6:05 AM EST) White Blood Cell Count 11.2(H) 4.0 - 11.0 Thou/uL 10/23/2024 8:29 AM [facility] Platelet Count 374 150 - 450 Thou/uL 10/23/2024 8:29 AM [facility] Hemoglobin 9.6(L) 13.0 - 17.7 g/dL 10/23/2024 8:29 AM [facility] Hematocrit 30.5(L) 39.0 - 54.0 % 10/23/2024 8:29 AM [facility] Red Blood Cell Count 3.17(L) 4.50 - 6.20 Mil/uL 10/23/2024 8:29 AM [facility] MCV 96 80 - 100 fL 10/23/2024 8:29 AM [facility] MCH 30.3 27.0 - 31.0 pg 10/23/2024 8:29 AM [facility] MCHC 31.5 30.0 - 36.0 g/dL 10/23/2024 8:29 AM EST [facility] RDW 16.4(H) 11.5 - 14.5 % 10/23/2024 8:29 AM EST [facility] MPV 11.6 7.5 - 12.5 fL 10/23/2024 8:29 AM EST [facility] Blood Blood specimen / Unknown 10/23/2024 6:05 AM EST 10/23/2024 7:46 AM EST Neymar Mcfarland MD [place] [address], [place] [address] * POCT Glucose, Fingerstick (10/23/2024 1:59 AM EST) POC Glucose 83 65 - 99 mg/dL 10/23/2024 2:00 AM EST Blood specimen / Unknown 10/23/2024 1:59 AM EST 10/23/2024 2:00 AM EST Fuad Winter MD POINT OF CARE TEST ORDERABLES Performing Organization Address City/[facility]/ZIP Co de Phone Number [facility] See Below * (ABNORMAL) POCT [...] OF CARE TEST ORDERABLES Performing Organization Address [facility] LAB See Below * (ABNORMAL) POCT Glucose, Fingerstick (10/22/2024 1:10 PM EST) POC Glucose 154(H) 65 - 99 mg/dL 10/22/2024 1:10 PM EST Blood specimen / Unknown 10/22/2024 1:10 PM EST 10/22/2024 1:11 PM EST Fuad Winter MD POINT OF CARE TEST ORDERABLES Performing Organization Address [facility] LAB See Below * (ABNORMAL) POCT Glucose, Fingerstick (10/22/2024 9:10 AM EST) POC Glucose 139(H) 65 - 99 mg/dL 10/22/2024 9:11 AM EST Blood specimen / Unknown 10/22/2024 9:10 AM EST 10/22/2024 9:11 AM EST Fuad Winter MD POINT OF CARE TEST ORDERABLES Performing Organization Address [facility] Number [facility] See Below * Heparin Assay (Anti Xa) (10/22/2024 8:12 AM EST) Anti Xa 0.37 IU/mL 10/22/2024 8:35 AM EST [facility] Comment: (NOTE) Heparin Thromboembolic/Standard/Full Dose Protocol: Therapeutic [...] EST Adilia Woo MD LAB BLOOD ORDERABLES [facility] [address] [place] [address], [facility] [address] [place] [address] * (ABNORMAL) Complete Blood Count WITHOUT Differential - in AM (10/22/2024 8:12 AM EST) White Blood Cell Count 10.7 4.0 - 11.0 Thou/uL 10/22/2024 8:44 AM [facility] Platelet Count 337 150 - 450 Thou/uL 10/22/2024 8:44 AM [facility] Hemoglobin 9.4(L) 13.0 - 17.7 g/dL 10/22/2024 8:44 AM [facility] Hematocrit 30.3(L) 39.0 - 54.0 % 10/22/2024 8:44 AM [facility] Red Blood Cell Count 3.13(L) 4.50 - 6.20 Mil/uL 10/22/2024 8:44 AM [facility] MCV 97 80 - 100 fL 10/22/2024 8:44 AM [facility] MCH 30.0 27.0 - 31.0 pg 10/22/2024 8:44 AM [facility] MCHC 31.0 30.0 - 36.0 g/dL 10/22/2024 8:44 AM [facility] RDW 16.2(H) 11.5 - 14.5 % 10/22/2024 8:44 AM [facility] MPV 11.3 7.5 - 12.5 fL 10/22/2024 8:44 AM [facility] Blood Blood specimen / Unknown 10/22/2024 8:12 AM EST 10/22/2024 8:18 AM EST Adilia Woo MD LAB BLOOD ORDERABLES Performing Organization Address [facility] [place] [address], [place] [address] * Magnesium (AM) (10/22/2024 8:12 AM EST) Magnesium 1.7 1.6 - 2.7 mg/dL 10/22/2024 8:54 AM [facility] Blood (Plasma/Serum) 10/22/2024 8:12 AM EST 10/22/2024 8:18 AM EST Adilia Woo MD [place] [address], [place] [address] * (ABNORMAL) Basic Metabolic Panel (AM) (10/22/2024 8:12 AM EST) Glucose 124(H) 65 - 99 mg/dL 10/22/2024 8:54 AM [facility] Comment:Fasting: <100 mg/dL, Non-Fasting: <200 mg/dL (ADA 2004) Blood Urea Nitrogen (BUN) 82(H) 8 - 21 mg/dL 10/22/2024 8:54 AM [facility] Creatinine 4.3(H) 0.5 - 1.3 mg/dL 10/22/2024 8:54 AM [facility] eGFR 13(L) >59 10/22/2024 8:54 AM [facility] Comment:CKD-EPI (2020) in mL /min/1.73 sq meters. Sodium 145 136 - 145 mmol/L 10/22/2024 8:54 AM [facility] Potassium 4.4 3.4 - 5.3 mmol/L 10/22/2024 8:54 AM [facility] Chloride 110(H) 98 - 107 mmol/L 10/22/2024 8:54 AM [facility] CO2 17(L) 22 - 33 mmol/L 10/22/2024 8:54 AM [facility] Anion Gap 18(H) 7 - 17 10/22/2024 8:54 AM [facility] Calcium 7.1(L) 8.7 - 10.5 mg/dL 10/22/2024 8:54 AM [facility] BUN/Creatinine Ratio 19 10.0 - 25.0 Ratio 10/22/2024 8:54 AM [facility] Blood (Plasma/Serum) 10/22/2024 8:12 AM EST 10/22/2024 8:18 AM EST Adilia Woo MD [place] [address], [address] [place] [address] * (ABNORMAL) POCT Glucose, Fingerstick (10/22/2024 1:23 AM EST) POC Glucose 122(H) 65 - 99 mg/dL 10/22/2024 1:28 AM EST Blood specimen / Unknown 10/22/2024 1:23 AM EST 10/22/2024 1:28 AM EST Fuad Winter MD POINT OF CARE TEST ORDERABLES HOSPITAL LAB See Below * ECG 12 lead (10/21/2024 9:45 PM EST) Ventricular rate 80 BPM EKG [facility] Atrial rate 80 BPM EKG [facility] P-R interval 146 ms EKG [facility] QRS duration 86 ms EKG [facility] Q-T interval 438 ms EKG [facility] QTC calculation (Bazett) 506 ms EKG [facility] P axis 52 degrees EKG [facility] R axis 59 degrees EKG [facility] T axis 229 degrees EKG [facility] 10/21/2024 9:45 PM EST Narrative EKG [facility] - 10/22/2024 7:57 AM EST Normal sinus [...] Hanson MD ECG ORDERABLES Performing Organization Address City/[facility] de Phone Number [facility] * (ABNORMAL) POCT Glucose, Fingerstick (10/21/2024 9:04 PM EST) POC Glucose 190(H) 65 - 99 mg/dL 10/21/2024 9:09 PM EST Blood specimen / Unknown 10/21/2024 9:04 PM EST 10/21/2024 9:09 PM EST Fuad Winter MD POINT OF CARE TEST ORDERABLES Performing Organization Address [facility] Number [facility] LAB See Below * (ABNORMAL) POCT Glucose, Fingerstick (10/21/2024 6:23 PM EST) POC Glucose 140(H) 65 - 99 mg/dL 10/21/2024 6:24 PM EST Blood specimen / Unknown 10/21/2024 6:23 PM EST 10/21/2024 6:24 PM EST Fuad Winter MD POINT OF CARE TEST ORDERABLES Performing Organization Address [facility] Number [facility] LAB See Below * (ABNORMAL) POCT Glucose, Fingerstick (10/21/2024 1:38 PM EST) POC Glucose 270(H) 65 - 99 mg/dL 10/21/2024 1:39 PM EST Blood specimen / Unknown 10/21/2024 1:38 PM EST 10/21/2024 1:39 PM EST Fuad Winter MD POINT OF CARE TEST ORDERABLES Performing Organization Address [facility] Phone Number [facility] LAB See Below * (ABNORMAL) POCT [...] Xa 0.42 IU/mL 10/21/2024 9:49 AM EST [facility] Comment: (NOTE) Heparin Thromboembolic/Standard/Full Dose Protocol: Therapeutic [...] MD LAB BLOOD ORDERABLES Performing Organization Address [facility] [place] [address], [place] [address] * (ABNORMAL) POCT Glucose, Fingerstick (10/21/2024 8:35 AM EST) [facility] POC Glucose 219(H) 65 - 99 mg/dL 10/21/2024 8:36 AM EST Blood specimen / Unknown 10/21/2024 8:35 AM EST 10/21/2024 8:36 AM EST Fuad Winter MD POINT OF CARE TEST ORDERABLES Performing Organization Address [facility] Phone Number HOSPITAL LAB See Below * (ABNORMAL) POCT Glucose, Fingerstick (10/21/2024 8:03 AM EST) POC Glucose 181(H) 65 - 99 mg/dL 10/21/2024 8:04 AM EST Blood specimen / Unknown 10/21/2024 8:03 AM EST 10/21/2024 8:04 AM EST Fuad Winter MD POINT OF CARE TEST ORDERABLES Performing Organization Address [facility] Co de Phone Number HOSPITAL LAB See Below * (ABNORMAL) Basic Metabolic Panel (Routine) (10/21/2024 3:09 AM EST) Glucose 193(H) 65 - 99 mg/dL 10/21/2024 3:41 AM [facility] Comment:Fasting: <100 mg/dL, Non-Fasting: <200 mg/dL (ADA 2004) Blood Urea Nitrogen (BUN) 83(H) 8 - 21 mg/dL 10/21/2024 3:41 AM [facility] Creatinine 4.3(H) 0.5 - 1.3 mg/dL 10/21/2024 3:41 AM [facility] eGFR 13(L) >59 10/21/2024 3:41 AM [facility] Comment:CKD-EPI (2020) in mL /min/1.73 sq meters. Sodium 140 136 - 145 mmol/L 10/21/2024 3:41 AM [facility] Potassium 4.5 3.4 - 5.3 mmol/L 10/21/2024 3:41 AM [facility] Chloride 109(H) 98 - 107 mmol/L 10/21/2024 3:41 AM [facility] CO2 15(L) 22 - 33 mmol/L 10/21/2024 3:41 AM [facility] Anion Gap 16 7 - 17 10/21/2024 3:41 AM [facility] Calcium 7.1(L) 8.7 - 10.5 mg/dL 10/21/2024 3:41 AM [facility] BUN/Creatinine Ratio 19 10.0 - 25.0 Ratio 10/21/2024 3:41 AM [facility] Blood (Plasma/Serum) 10/21/2024 3:09 AM EST 10/21/2024 3:13 AM EST Magdaleno Crowder MD [place] [address], [place] [address] * (ABNORMAL) Complete Blood Count WITHOUT Differential - Early AM (10/21/2024 3:09 AM EST) White Blood Cell Count 10.8 4.0 - 11.0 Thou/uL 10/21/2024 3:18 AM [facility] Platelet Count 299 150 - 450 Thou/uL 10/21/2024 3:18 AM [facility] Hemoglobin 8.9(L) 13.0 - 17.7 g/dL 10/21/2024 3:18 AM [facility] Hematocrit 28.9(L) 39.0 - 54.0 % 10/21/2024 3:18 AM [facility] Red Blood Cell Count 2.97(L) 4.50 - 6.20 Mil/uL 10/21/2024 3:18 AM [facility] MCV 97 80 - 100 fL 10/21/2024 3:18 AM [facility] MCH 30.0 27.0 - 31.0 pg 10/21/2024 3:18 AM [facility] MCHC 30.8 30.0 - 36.0 g/dL 10/21/2024 3:18 AM [facility] RDW 16.3(H) 11.5 - 14.5 % 10/21/2024 3:18 AM [facility] MPV 11.0 7.5 - 12.5 fL 10/21/2024 3:18 AM [facility] Blood Blood specimen / Unknown 10/21/2024 3:09 AM EST 10/21/2024 3:13 AM EST Magdaleno Crowder MD LAB BLOOD ORDERABLES Performing Organization Address City/State/[facility] [place] [address], [place] [address] * Heparin Assay (Anti Xa) (10/21/2024 3:09 AM EST) Anti Xa 0.35 IU/mL 10/21/2024 3:31 AM [facility] Comment: (NOTE) Heparin Thromboembolic/Standard/Full Dose Protocol: [...] MD LAB BLOOD ORDERABLES Performing Organization Address [facility]/State/[place] [address], [facility] [address] [place] [address] * (ABNORMAL) POCT Glucose, Fingerstick (10/21/2024 2:23 AM EST) POC Glucose 198(H) 65 - 99 mg/dL 10/21/2024 2:23 AM EST Blood specimen / Unknown 10/21/2024 2:23 AM EST 10/21/2024 2:24 AM EST Fuad Winter MD POINT OF CARE TEST ORDERABLES Performing Organization Address [facility] Phone Number HOSPITAL LAB See Below * (ABNORMAL) POCT Glucose, Fingerstick (10/20/2024 8:47 PM EST) POC Glucose 218(H) 65 - 99 mg/dL 10/20/2024 8:50 PM EST Blood specimen / Unknown 10/20/2024 8:47 PM EST 10/20/2024 8:50 PM EST Fuad Winter MD POINT OF CARE TEST ORDERABLES Performing Organization Address [facility] Number [facility] LAB See Below * Heparin Assay (Anti Xa) (10/20/2024 8:34 PM EST) Pathologist [facility] Anti Xa 0.29 IU/mL 10/20/2024 9:00 PM EST [facility] Comment: (NOTE) Heparin Thromboembolic/Standard/Full Dose Protocol: Therapeutic [...] MD LAB BLOOD ORDERABLES Performing Organization Address City/State/[facility] [place] [address], [place] [address] * (ABNORMAL) POCT Glucose, Fingerstick (10/20/2024 5:51 PM EST) POC Glucose 175(H) 65 - 99 mg/dL 10/20/2024 5:52 PM EST Blood specimen / Unknown 10/20/2024 5:51 PM EST 10/20/2024 5:52 PM EST Fuad Winter MD POINT OF CARE TEST ORDERABLES Performing Organization Address [facility] Phone [facility] LAB See Below * (ABNORMAL) POCT Glucose, Fingerstick (10/20/2024 3:47 PM EST) POC Glucose 222(H) 65 - 99 mg/dL 10/20/2024 3:52 PM EST Blood specimen / Unknown 10/20/2024 3:47 PM EST 10/20/2024 3:52 PM EST Fuad Winter MD POINT OF CARE TEST ORDERABLES Performing Organization Address [facility] Phone Number [facility] LAB See Below * (ABNORMAL) POCT Glucose, Fingerstick (10/20/2024 11:43 AM EST) POC Glucose 210(H) 65 - 99 mg/dL 10/20/2024 11:45 AM EST Blood specimen / Unknown 10/20/2024 11:43 AM EST 10/20/2024 11:44 AM EST Fuad Winter MD POINT OF CARE TEST ORDERABLES Performing Organization Address [facility] LAB See Below * (ABNORMAL) Blood Gas, Venous (10/20/2024 10:39 AM EST) Pathologist [facility] Venous Blood PH 7.29(L) 7.33 - 7.43 10/20/2024 10:54 AM [facility] Venous pCO2 39 35 - 50 mmHG 10/20/2024 10:54 AM [facility] Venous pO2 49 0 - 60 mmHG 10/20/2024 10:54 AM [facility] Venous Total CO2 20(L) 23 - 29 mmol/L 10/20/2024 10:54 AM [facility] Respiratory Info NASAL 4 L/MIN 10/20/2024 10:39 AM EST Base Deficiency 7.2 mmol/L 10:54 AM [facility] Comment:Reference Range: Neg ative 2 to Positive 3 Blood Blood specimen / Unknown 10/20/2024 10:39 AM EST 10/20/2024 10:47 AM EST Kristopher Hickey MD LAB BLOOD ORDERAB LES Performing Organization Address [facility] [place] [address], [place] [address] * (ABNORMAL) POCT Glucose, Fingerstick (10/20/2024 10:37 AM EST) POC Glucose 187(H) 65 - 99 mg/dL 10/20/2024 10:37 AM EST Blood specimen / Unknown 10/20/2024 10:37 AM EST 10/20/2024 10:38 AM EST Fuad Winter MD POINT OF CARE TEST ORDERABLES Performing Organization Address [facility] Co de Phone Number HOSPITAL LAB See Below * Lactic Acid, Plasma (STAT) (10/20/2024 10:00 AM EST) Lactic Acid 0.8 0.5 - 1.9 mmol/L 10/20/2024 10:37 AM EST [facility] Blood Plasma specimen / Unknown 10/20/2024 10:00 AM EST 10/20/2024 10:07 AM EST Kristopher Hickey MD LAB BLOOD ORDERAB LES Performing Organization Address [facility] Co de Phone Number [address] [address], [address] [address] * (ABNORMAL) POCT Glucose, Fingerstick (10/20/2024 7:48 AM EST) POC Glucose 156(H) 65 - 99 mg/dL 10/20/2024 7:49 AM EST Blood specimen / Unknown 10/20/2024 7:48 AM EST 10/20/2024 7:49 AM EST Fuad Winter MD POINT OF CARE TEST ORDERABLES [facility] LAB See Below * (ABNORMAL) POCT Glucose, Fingerstick (10/20/2024 5:43 AM EST) POC Glucose 148(H) 65 - 99 mg/dL 10/20/2024 5:44 AM EST Blood specimen / Unknown 10/20/2024 5:43 AM EST 10/20/2024 5:44 AM EST Fuad Winter MD POINT OF CARE TEST ORDERABLES Performing Organization Address City/[facility] Co de Phone Number [facility] LAB See Below * (ABNORMAL) POCT Glucose, Fingerstick (10/20/2024 2:15 AM EST) POC Glucose 219(H) 65 - 99 mg/dL 10/20/2024 2:16 AM EST Blood specimen / Unknown 10/20/2024 2:15 AM EST 10/20/2024 2:16 AM EST Fuad Winter MD POINT OF CARE TEST ORDERABLES Performing Organization Address [facility] de Phone Number [facility] LAB See Below * Phosphorus (Routine) (10/19/2024 11:59 PM EST) Phosphorus 4.4 2.7 - 4.5 mg/dL 10/20/2024 1:00 AM EST [facility] Blood (Plasma/Serum) 10/19/2024 11:59 PM EST 10/20/2024 12:25 AM EST Kristopher Hickey MD LAB BLOOD ORDERAB LES Performing Organization Address [facility] [place] [address], [place] [address] * Magnesium (Routine) (10/19/2024 11:59 PM EST) Magnesium 1.6 1.6 - 2.7 mg/dL 10/20/2024 1:00 AM [facility] Blood (Plasma/Serum) 10/19/2024 11:59 PM EST 10/20/2024 12:25 AM EST Kristopher Hickey MD [place] [address], [address] [address] * (ABNORMAL) Complete Blood Count, with Differential (10/19/2024 11:59 PM EST) White Blood Cell Count 11.5(H) 4.0 - 11.0 Thou/uL 10/20/2024 12:32 AM [facility] Platelet Count 271 150 - 450 Thou/uL 10/20/2024 12:32 AM [facility] Hemoglobin 8.9(L) 13.0 - 17.7 g/dL 10/20/2024 12:32 AM [facility] Hematocrit 28.6(L) 39.0 - 54.0 % 10/20/2024 12:32 AM [facility] Red Blood Cell Count 2.93(L) 4.50 - 6.20 Mil/uL 10/20/2024 12:32 AM [facility] MCV 98 80 - 100 fL 10/20/2024 12:32 AM [facility] MCH 30.4 27.0 - 31.0 pg 10/20/2024 12:32 AM [facility] MCHC 31.1 30.0 - 36.0 g/dL 10/20/2024 12:32 AM [facility] RDW 16.5(H) 11.5 - 14.5 % 10/20/2024 12:32 AM [facility] MPV 11.3 7.5 - 12.5 fL 10/20/2024 12:32 AM [facility] Neutrophils Auto 80.7 % 10/20/19 12:32 AM [facility] Immature Granulocytes 0.6 % 10/20/2024 12:32 AM [facility] Lymphocytes Auto 11.6 % 10/20/19 12:32 AM [facility] Monocytes Auto 6.7 % 10/20/2024 12:32 AM [facility] Eosinophils Auto 0.2 % 10/20/19 12:32 AM [facility] Basophils Auto 0.2 % 10/20/2024 12:32 AM [facility] Abs Neutrophils Auto 9.25(H) 2.00 - 7.50 Thou/uL 10/20/2024 12:32 AM [facility] Abs Immature Granulocytes 0.07 0.00 - 0.10 Thou/uL 10/20/2024 12:32 AM [facility] Abs Lymphocytes Auto 1.33(L) 1.50 - 4.50 Thou/uL 10/20/2024 12:32 AM [facility] Abs Monocytes Auto 0.77 0.20 - 1.50 Thou/uL 10/20/2024 12:32 AM [facility] Abs Eosinophils Auto 0.02 0.00 - 0.70 Thou/uL 10/20/2024 12:32 AM [facility] Abs Basophils Auto 0.02 0.00 - 0.20 Thou/uL 10/20/2024 12:32 AM [facility] Blood Blood specimen / Unknown 10/19/2024 11:59 PM EST 10/20/2024 12:25 AM EST Fuad Winter MD [place] [address], [place] [address] * (ABNORMAL) Basic Metabolic Panel (Routine) (10/19/2024 11:59 PM EST) Glucose 183(H) 65 - 99 mg/dL 10/20/2024 1:00 AM [facility] Comment:Fasting: <100 mg/dL, Non-Fasting: <200 mg/dL (ADA 2005) Blood Urea Nitrogen (BUN) 86(H) 8 - 21 mg/dL 10/20/2024 1:00 AM [facility] Creatinine 4.7(H) 0.5 - 1.3 mg/dL 10/20/2024 1:00 AM [facility] eGFR 12(L) >59 10/20/2024 1:00 AM [facility] Comment:CKD-EPI (2020) in mL /min/1.73 sq meters. Sodium 140 136 - 145 mmol/L 10/20/2024 1:00 AM [facility] Potassium 4.4 3.4 - 5.3 mmol/L 10/20/2024 1:00 AM [facility] Chloride 106 98 - 107 mmol/L 10/20/2024 1:00 AM [facility] CO2 14(L) 22 - 33 mmol/L 10/20/2024 1:00 AM [facility] Anion Gap 20(H) 7 - 17 10/20/2024 1:00 AM [facility] Calcium 7.2(L) 8.7 - 10.5 mg/dL 10/20/2024 1:00 AM [facility] BUN/Creatinine Ratio 18 10.0 - 25.0 Ratio 10/20/2024 1:00 AM [facility] Blood (Plasma/Serum) 10/19/2024 11:59 PM EST 10/20/2024 12:25 AM EST Magdaleno Crowder MD [place] [address], [place] [address] * Heparin Assay (Anti Xa) (10/19/2024 11:59 PM EST) Anti Xa 0.45 IU/mL 10/20/2024 12:49 AM [facility] Comment: (NOTE) Heparin Thromboembolic/Standard/Full Dose Protocol: [...] LAB BLOOD ORDERAB LES Performing Organization Address City/State/[facility] [place] [address], [place] [address] * (ABNORMAL) POCT Glucose, Fingerstick (10/19/2024 8:00 PM EST) POC Glucose 132(H) 65 - 99 mg/dL 10/20/2024 2:16 AM EST Blood specimen / Unknown 10/19/2024 8:00 PM EST 10/20/2024 2:16 AM EST Fuad Winter MD POINT OF CARE TEST ORDERABLES Performing Organization Address [facility] LAB See Below * (ABNORMAL) POCT Glucose, Fingerstick (10/19/2024 6:53 PM EST) POC Glucose 165(H) 65 - 99 mg/dL 10/19/2024 6:54 PM EST Blood specimen / Unknown 10/19/2024 6:53 PM EST 10/19/2024 6:54 PM EST Fuad Winter MD POINT OF CARE TEST ORDERABLES Performing Organization Address [facility] LAB See Below * (ABNORMAL) POCT Glucose, Fingerstick (10/19/2024 5:42 PM EST) POC Glucose 114(H) 65 - 99 mg/dL 10/19/2024 5:43 PM EST Blood specimen / Unknown 10/19/2024 5:42 PM EST 10/19/2024 5:43 PM EST Fuad Winter MD POINT OF CARE TEST ORDERABLES Performing Organization Address [facility] LAB See Below * (ABNORMAL) POCT Glucose, Fingerstick (10/19/2024 4:33 PM EST) POC Glucose 159(H) 65 - 99 mg/dL 10/19/2024 4:34 PM EST Blood specimen / Unknown 10/19/2024 4:33 PM EST 10/19/2024 4:34 PM EST Fuad Winter MD POINT OF CARE TEST ORDERABLES Performing Organization Address [facility] LAB See Below * (ABNORMAL) Basic Metabolic Panel (10/19/2024 3:47 PM EST) Glucose 126(H) 65 - 99 mg/dL 10/19/2024 4:58 PM [facility] Comment:Fasting: <100 mg/dL, Non-Fasting: <200 mg/dL (ADA 2004) Blood Urea Nitrogen (BUN) 81(H) 8 - 21 mg/dL 10/19/2024 4:58 PM [facility] Creatinine 4.6(H) 0.5 - 1.3 mg/dL 10/19/2024 4:58 PM [facility] eGFR 12(L) >59 10/19/2024 4:58 PM [facility] Comment:CKD-EPI (2020) in mL /min/1.73 sq meters. Sodium 143 136 - 145 mmol/L 10/19/2024 4:58 PM [facility] Potassium 4.4 3.4 - 5.3 mmol/L 10/19/2024 4:58 PM [facility] Chloride 109(H) 98 - 107 mmol/L 10/19/2024 4:58 PM [facility] CO2 15(L) 22 - 33 mmol/L 10/19/2024 4:58 PM [facility] Anion Gap 19(H) 7 - 17 10/19/2024 4:58 PM [facility] Calcium 7.0(L) 8.7 - 10.5 mg/dL 10/19/2024 4:58 PM [facility] BUN/Creatinine Ratio 18 10.0 - 25.0 Ratio 10/19/2024 4:58 PM [facility] Blood (Plasma/Serum) 10/19/2024 3:47 PM EST 10/19/2024 4:16 PM EST Pushpa Gallegos MD [place] [address], [place] [address] * (ABNORMAL) Hemoglobin and Hematocrit (10/19/2024 2:25 PM EST) Hematocrit 32.3(L) 39.0 - 54.0 % 10/19/2024 3:39 PM [facility] Hemoglobin 9.9(L) 13.0 - 17.7 g/dL 10/19/2024 3:39 PM [facility] Blood Blood specimen / Unknown 10/19/2024 2:25 PM EST 10/19/2024 3:31 PM EST Kristopher Hickey MD LAB BLOOD ORDERAB LES Performing Organization Address [facility] Co de Phone Number [facility] [address] [place] [address], [facility] [address] [place] [address] * Heparin Assay (Anti Xa) (10/19/2024 2:25 PM EST) Anti Xa 0.52 IU/mL 10/19/2024 3:44 PM [facility] Comment: (NOTE) Heparin Thromboembolic/Standard/Full Dose Protocol: [...] LAB BLOOD ORDERAB LES Performing Organization Address City/State/[facility] [place] [address], [place] [address] * (ABNORMAL) Blood Gas, Venous (10/19/2024 2:25 PM EST) Venous Blood PH 7.32(L) 7.33 - 7.43 10/19/2024 3:10 PM [facility] Venous pCO2 31(L) 35 - 50 mmHG 10/19/2024 3:10 PM [facility] Venous pO2 <30 0 - 60 mmHG 10/19/2024 3:10 PM [facility] Venous Total CO2 17(L) 23 - 29 mmol/L 10/19/2024 3:10 PM [facility] Respiratory Info VM 50% 10/19/19 2:25 PM EST Base Deficiency 9.0 mmol/L 3:10 PM [facility] Comment:Reference Range: Neg ative 2 to Positive 3 Blood Blood specimen / Unknown 10/19/2024 2:25 PM EST 10/19/2024 2:56 PM EST Pushpa Gallegos MD LAB BLOOD ORDERABLES Performing Organization Address [facility] Co de Phone Number [address] [address], [address] [address] * (ABNORMAL) POCT Glucose, Fingerstick (10/19/2024 1:52 PM EST) POC Glucose 133(H) 65 - 99 mg/dL 10/19/2024 1:53 PM EST Blood specimen / Unknown 10/19/2024 1:52 PM EST 10/19/2024 1:53 PM EST Fuad Winter MD POINT OF CARE TEST ORDERABLES Performing Organization Address [facility] Co de Phone Number [facility] See Below * (ABNORMAL) POCT Glucose, Fingerstick (10/19/2024 11:40 AM EST) POC Glucose 145(H) 65 - 99 mg/dL 10/19/2024 11:41 AM EST Blood specimen / Unknown 10/19/2024 11:40 AM EST 10/19/2024 11:41 AM EST Fuad Winter MD POINT OF CARE TEST ORDERABLES Performing Organization Address [facility] Co de Phone Number [facility] See Below * B-Hydroxybutyrate (10/19/2024 11:34 AM EST) B-Hydroxybutyrate 0.26 <0.28 mmol/L 10/19/2024 4:15 PM EST [facility] Comment: In the presence of uncontrolled diabetes, [...] MD LAB BLOOD ORDERABLES Performing Organization Address City/[facility]/[place] [address], [place] [address] * (ABNORMAL) High Sensitivity Troponin T (10/19/2024 11:34 AM EST) High Sensitivity Troponin T 4,276(HH) <23 ng/L 10/19/2024 3:44 PM [facility] Comment:Recurring Critical R esult. Previously phoned. Delta (Change) 2,446(H) <3 10/19/2024 3:44 PM [facility] Comment:Increased Plasma/Serum 10/19/2024 11:3 4 AM EST 10/19/2024 11:54 AM EST Pushpa Gallegos MD LAB BLOOD ORDERABLES Performing Organization Address City/[facility]/[place] [address], [place] [address] * (ABNORMAL) Basic Metabolic Panel (10/19/2024 11:34 AM EST) Pathologist [facility] Glucose 128(H) 65 - 99 mg/dL 10/19/2024 1:00 PM [facility] Comment:Fasting: <100 mg/dL, Non-Fasting: <200 mg/dL (ADA 2005) Blood Urea Nitrogen (BUN) 84(H) 8 - 21 mg/dL 10/19/2024 1:00 PM [facility] Creatinine 4.8(H) 0.5 - 1.3 mg/dL 10/19/2024 1:00 PM [facility] eGFR 12(L) >59 10/19/2024 1:00 PM [facility] Comment:CKD-EPI (2020) in mL /min/1.73 sq meters. Sodium 142 136 - 145 mmol/L 10/19/2024 1:00 PM [facility] Potassium 4.3 3.4 - 5.3 mmol/L 10/19/2024 1:00 PM [facility] Chloride 110(H) 98 - 107 mmol/L 10/19/2024 1:00 PM [facility] CO2 14(L) 22 - 33 mmol/L 10/19/2024 1:00 PM [facility] Anion Gap 18(H) 7 - 17 10/19/2024 1:00 PM [facility] Calcium 7.0(L) 8.7 - 10.5 mg/dL 10/19/2024 1:00 PM [facility] BUN/Creatinine Ratio 18 10.0 - 25.0 Ratio 10/19/2024 1:00 PM [facility] Blood (Plasma/Serum) 10/19/2024 11:34 AM EST 10/19/2024 11:54 AM EST Pushpa Gallegos MD LAB BLOOD ORDERABLES Performing Organization Address City/[facility]/[place] [address], [place] [address] * (ABNORMAL) Blood Gas, Venous (10/19/2024 10:36 AM EST) Venous Blood PH 7.32(L) 7.33 - 7.43 10/19/2024 10:59 AM [facility] Venous pCO2 33(L) 35 - 50 mmHG 10/19/2024 10:59 AM [facility] Venous pO2 53 0 - 60 mmHG 10/19/2024 10:59 AM [facility] Venous Total CO2 18(L) 23 - 29 mmol/L 10/19/2024 10:59 AM [facility] Respiratory Info VM 50% 10/19/19 25 10:36 AM EST Base Deficiency 8.3 mmol/L 10:59 AM [facility] Comment:Reference Range: Neg ative 2 to Positive 3 Blood Blood specimen / Unknown 10/19/2024 10:36 AM EST 10/19/2024 10:56 AM EST Pushpa Gallegos MD LAB BLOOD ORDERABLES Performing Organization Address City/[facility]/[place] [address], [facility] [address] [place] [address] * (ABNORMAL) POCT Glucose, Fingerstick (10/19/2024 10:34 AM EST) POC Glucose 131(H) 65 - 99 mg/dL 10/19/2024 10:34 AM EST Blood specimen / Unknown 10/19/2024 10:34 AM EST 10/19/2024 10:35 AM EST Fuad Winter MD POINT OF CARE TEST ORDERABLES Performing Organization Address [facility] Phone Number [facility] LAB See Below * (ABNORMAL) POCT Glucose, Fingerstick (10/19/2024 9:08 AM EST) POC Glucose 146(H) 65 - 99 mg/dL 10/19/2024 9:08 AM EST Blood specimen / Unknown 10/19/2024 9:08 AM EST 10/19/2024 9:09 AM EST Fuad Winter MD POINT OF CARE TEST ORDERABLES Performing Organization Address [facility] LAB See Below * (ABNORMAL) POCT Glucose, Fingerstick (10/19/2024 7:58 AM EST) POC Glucose 118(H) 65 - 99 mg/dL 10/19/2024 8:00 AM EST Blood specimen / Unknown 10/19/2024 7:58 AM EST 10/19/2024 7:59 AM EST Fuad Witner MD POINT OF CARE TEST ORDERABLES Performing Organization Address [facility] Number [facility] LAB See Below * Heparin Assay (Anti Xa) (10/19/2024 7:44 AM EST) Anti Xa 0.36 IU/mL 10/19/2024 8:39 AM EST [facility] Comment: (NOTE) Heparin Thromboembolic/Standard/Full Dose Protocol: Therapeutic [...] LAB BLOOD ORDERAB LES Performing Organization Address City/[facility]/[place] [address], [place] [address] * (ABNORMAL) Basic Metabolic Panel (10/19/2024 7:44 AM EST) Glucose 110(H) 65 - 99 mg/dL 10/19/2024 8:53 AM [facility] Comment:Fasting: <100 mg/dL, Non-Fasting: <200 mg/dL (ADA 2004) Blood Urea Nitrogen (BUN) 84(H) 8 - 21 mg/dL 10/19/2024 8:53 AM [facility] Creatinine 4.8(H) 0.5 - 1.3 mg/dL 10/19/2024 8:53 AM [facility] eGFR 12(L) >59 10/19/2024 8:53 AM [facility] Comment:CKD-EPI (2020) in mL /min/1.73 sq meters. Sodium 141 136 - 145 mmol/L 10/19/2024 8:53 AM [facility] Potassium 4.6 3.4 - 5.3 mmol/L 10/19/2024 8:53 AM [facility] Chloride 109(H) 98 - 107 mmol/L 10/19/2024 8:53 AM [facility] CO2 14(L) 22 - 33 mmol/L 10/19/2024 8:53 AM [facility] Anion Gap 18(H) 7 - 17 10/19/2024 8:53 AM [facility] Calcium 7.2(L) 8.7 - 10.5 mg/dL 10/19/2024 8:53 AM [facility] BUN/Creatinine Ratio 18 10.0 - 25.0 Ratio 10/19/2024 8:53 AM [facility] Blood (Plasma/Serum) 10/19/2024 7:44 AM EST 10/19/2024 8:19 AM EST Pushpa Gallegos MD [place] [address], [facility] [address] [place] [address] * (ABNORMAL) POCT Glucose, Fingerstick (10/19/2024 6:38 AM EST) [facility] POC Glucose 148(H) 65 - 99 mg/dL 10/19/2024 6:39 AM EST Blood specimen / Unknown 10/19/2024 6:38 AM EST 10/19/2024 6:39 AM EST Fuad Winter MD POINT OF CARE TEST ORDERABLES Performing Organization Address [facility]/ZIP Co de Phone Number [facility] LAB See Below * (ABNORMAL) POCT Glucose, Fingerstick (10/19/2024 5:25 AM EST) [facility] POC Glucose 169(H) 65 - 99 mg/dL 10/19/2024 5:29 AM EST Blood specimen / Unknown 10/19/2024 5:25 AM EST 10/19/2024 5:29 AM EST Fuad Winter MD POINT OF CARE TEST ORDERABLES Performing Organization Address [facility] Co al Phone Number [facility] LAB See Below * (ABNORMAL) High Sensitivity Troponin T (10/19/2024 5:15 AM EST) [facility] High Sensitivity Troponin T 4,239(HH) <23 ng/L 10/19/2024 7:11 AM [facility] Comment:Recurring Critical R esult. Previously phoned. Delta (Change) 2,409(H) <3 10/19/2024 7:11 AM [facility] Comment:Increased Blood (Plasma/Serum) 10/19/2024 5:15 AM EST 10/19/2024 6:04 AM EST Pushpa Gallegos MD LAB BLOOD ORDERABLES Performing Organization Address [facility] [place] [address], [place] [address] * (ABNORMAL) BASIC METABOLIC PANEL (10/19/2024 4:15 AM EST) Glucose 143(H) 65 - 99 mg/dL 10/19/2024 5:00 AM [facility] Comment:Fasting: <100 mg/dL, Non-Fasting: <200 mg/dL (ADA 2004) Blood Urea Nitrogen (BUN) 84(H) 8 - 21 mg/dL 10/19/2024 5:00 AM [facility] Creatinine 5.0(H) 0.5 - 1.3 mg/dL 10/19/2024 5:00 AM [facility] eGFR 11(L) >59 10/19/2024 5:00 AM [facility] Comment:CKD-EPI (2020) in mL /min/1.73 sq meters. Sodium 142 136 - 145 mmol/L 10/19/2024 5:00 AM [facility] Potassium 4.3 3.4 - 5.3 mmol/L 10/19/2024 5:00 AM [facility] Chloride 109(H) 98 - 107 mmol/L 10/19/2024 5:00 AM [facility] CO2 14(L) 22 - 33 mmol/L 10/19/2024 5:00 AM [facility] Anion Gap 19(H) 7 - 17 10/19/2024 5:00 AM [facility] Calcium 6.8(LL) 8.7 - 10.5 mg/dL 10/19/2024 5:00 AM [facility] BUN/Creatinine Ratio 17 10.0 - 25.0 Ratio 10/19/2024 5:00 AM [facility] Plasma/Serum 10/19/2024 4:15 AM EST 10/19/2024 4:25 AM EST Fuad Winter MD LAB BLOOD ORD ERABLES [facility] [address] [place] [address], [facility] [address] [place] [address] * (ABNORMAL) POCT Glucose, Fingerstick (10/19/2024 4:14 AM EST) POC Glucose 154(H) 65 - 99 mg/dL 10/19/2024 4:15 AM EST Blood specimen / Unknown 10/19/2024 4:14 AM EST 10/19/2024 4:15 AM EST Fuad Winter MD POINT OF CARE TEST ORDERABLES Performing Organization Address [facility] Phone Number HOSPITAL LAB See Below * (ABNORMAL) POCT Glucose, Fingerstick (10/19/2024 2:45 AM EST) Pathologist [facility] POC Glucose 192(H) 65 - 99 mg/dL 10/19/2024 2:46 AM EST Blood specimen / Unknown 10/19/2024 2:45 AM EST 10/19/2024 2:46 AM EST Fuad Winter MD POINT OF CARE TEST ORDERABLES Performing Organization Address [facility] Phone Number [facility] See Below * Heparin Assay (Anti Xa) (10/19/2024 1:54 AM EST) [facility] Anti Xa 0.25 IU/mL 10/19/2024 2:28 AM EST [facility] Comment: (NOTE) Heparin Thromboembolic/Standard/Full Dose Protocol: Therapeutic [...] LAB BLOOD ORDERAB LES Performing Organization Address [facility] [place] [address], [place] [address] * (ABNORMAL) POCT Glucose, Fingerstick (10/19/2024 1:35 AM EST) POC Glucose 160(H) 65 - 99 mg/dL 10/19/2024 1:36 AM EST Blood specimen / Unknown 10/19/2024 1:35 AM EST 10/19/2024 1:36 AM EST Fuad Winter MD POINT OF CARE TEST ORDERABLES Performing Organization Address City/[facility] Co de Phone Number HOSPITAL LAB See Below * (ABNORMAL) Hemoglobin A1C with Estimated Average Glucose (10/19/2024 1:20 AM EST) Hemoglobin A1C 8.7(H) <5.7 % 10/19/2024 12:02 PM [facility] Comment: A1c% ? Interpretation 5.7 - 6.0 ?Increase risk of diabetes 6.1 - 6.4 ?Higher risk of diabetes > or = 6.5 ?? Consistent with diabetes Diabetes Care, 33(Supp 1):S1-S61, 2010 Estimated Average Glucose 203 mg/dL 10/19/2024 12:02 PM [facility] Blood specimen / Unknown 10/19/2024 1:20 AM EST 10/19/2024 2:17 AM EST Pushpa Gallegos MD LAB BLOOD ORDERABLES Performing Organization Address [facility] [place] [address], [place] [address] * Phosphorus (Routine) (10/19/2024 1:20 AM EST) Phosphorus 4.2 2.7 - 4.5 mg/dL 10/19/2024 2:39 AM [facility] Blood (Plasma/Serum) 10/19/2024 1:20 AM EST 10/19/2024 2:17 AM EST Pushpa Gallegos MD LAB BLOOD ORDERABLES Performing Organization Address City/[facility]/[place] [address], [place] [address] * Magnesium (Routine) (10/19/2024 1:20 AM EST) Magnesium 1.7 1.6 - 2.7 mg/dL 10/19/2024 2:39 AM [facility] Blood (Plasma/Serum) 10/19/2024 1:20 AM EST 10/19/2024 2:17 AM EST Pushpa Gallegos MD LAB BLOOD ORDERABLES Performing Organization Address [facility] [place] [address], [place] [address] * (ABNORMAL) High Sensitivity Troponin T (Once) (10/19/2024 1:20 AM EST) [facility] High Sensitivity Troponin T 4,171(HH) <23 ng/L 10/19/2024 2:39 AM [facility] Comment:Recurring Critical R esult. Previously phoned. Delta (Change) 2,341(H) <3 10/19/2024 2:39 AM [facility] Comment:Increased Blood (Plasma/Serum) 10/19/2024 1:20 AM EST 10/19/2024 2:17 AM EST Pushpa Gallegos MD LAB BLOOD ORDERABLES Performing Organization Address [facility] [place] [address], [place] [address] * (ABNORMAL) Complete Blood Count, WITHOUT Differential (routine) (10/19/2024 1:20 AM EST) [facility] White Blood Cell Count 15.9(H) 4.0 - 11.0 Thou/uL 10/19/2024 2:31 AM [facility] Platelet Count 263 150 - 450 Thou/uL 10/19/2024 2:31 AM [facility] Hemoglobin 8.5(L) 13.0 - 17.7 g/dL 10/19/2024 2:31 AM [facility] Hematocrit 27.0(L) 39.0 - 54.0 % 10/19/2024 2:31 AM [facility] Red Blood Cell Count 2.78(L) 4.50 - 6.20 Mil/uL 10/19/2024 2:31 AM [facility] MCV 97 80 - 100 fL 10/19/2024 2:31 AM [facility] Comment:Significant change i n values noted, consider specimen integrity. If results are not expected, correlate clinically and re-collect sample if indicated. MCH 30.6 27.0 - 31.0 pg 10/19/2024 2:31 AM EST [facility] MCHC 31.5 30.0 - 36.0 g/dL 10/19/2024 2:31 AM EST [facility] RDW 16.2(H) 11.5 - 14.5 % 10/19/2024 2:31 AM EST [facility] MPV 11.5 7.5 - 12.5 fL 10/19/2024 2:31 AM EST [facility] Blood Blood specimen / Unknown 10/19/2024 1:20 AM EST 10/19/2024 2:17 AM EST Pushpa Gallegos MD [place] [address], [place] [address] * (ABNORMAL) POCT Glucose, Fingerstick (10/19/2024 12:16 AM EST) POC Glucose 106(H) 65 - 99 mg/dL 10/19/2024 12:17 AM EST Blood specimen / Unknown 10/19/2024 12:16 AM EST 10/19/2024 12:17 AM EST Fuad Winter MD POINT OF CARE TEST ORDERABLES HOSPITAL LAB See Below * ECG 12 lead (10/19/2024 12:02 AM EST) Systolic BP 128 mmHg EKG [facility] Diastolic BP 67 mmHg EKG [facility] Ventricular rate 86 BPM EKG [facility] Atrial rate 86 BPM EKG [facility] P-R interval 162 ms EKG [facility] QRS duration 78 ms EKG [facility] Q-T interval 372 ms EKG [facility] QTC calculation (Bazett) 445 ms EKG [facility] P axis 42 degrees EKG [facility] R axis 60 degrees EKG [facility] T axis 224 degrees EKG [facility] 10/19/2024 12:0 2 AM EST Narrative EKG [facility] - 10/19/2024 5:46 AM EST Normal sinus rhythm Early Transition Nonspecific ST and T wave abnormality Abnormal ECG Confirmed by MD Wade John ([id number]) on 10/19/2024 5:46:29 AM Procedure Note Raciel Wade MD - 10/19/2024 Normal sinus rhythm Early Transition Nonspecific ST and T wave abnormality Abnormal ECG Confirmed by MD Wade John ([id number]) on 10/19/2024 5:46:29 AM Fuad Winter MD ECG ORDERABLE S Performing Organization Address City/[facility]/ZIP Co de Phone Number [facility] * (ABNORMAL) POCT Glucose, Fingerstick (10/18/2024 11:22 PM EST) POC Glucose 117(H) 65 - 99 mg/dL 10/18/2024 11:23 PM EST Blood specimen / Unknown 10/18/2024 11:22 PM EST 10/18/2024 11:23 PM EST Fuad Winter MD POINT OF CARE TEST ORDERABLES Performing Organization Address City/[facility]/ZIP Co de Phone Number HOSPITAL LAB See Below * (ABNORMAL) BASIC METABOLIC PANEL (10/18/2024 11:11 PM EST) Glucose 103(H) 65 - 99 mg/dL 10/19/2024 12:51 AM [facility] Comment:Fasting: <100 mg/dL, Non-Fasting: <200 mg/dL (ADA 2005) Blood Urea Nitrogen (BUN) 88(H) 8 - 21 mg/dL 10/19/2024 12:51 AM [facility] Creatinine 5.0(H) 0.5 - 1.3 mg/dL 10/19/2024 12:51 AM [facility] eGFR 11(L) >59 10/19/2024 12:51 AM [facility] Comment:CKD-EPI (2020) in mL /min/1.73 sq meters. Sodium 143 136 - 145 mmol/L 10/19/2024 12:51 AM [facility] Potassium 4.4 3.4 - 5.3 mmol/L 10/19/2024 12:51 AM [facility] Chloride 110(H) 98 - 107 mmol/L 10/19/2024 12:51 AM [facility] CO2 13(L) 22 - 33 mmol/L 10/19/2024 12:51 AM [facility] Anion Gap 20(H) 7 - 17 10/19/2024 12:51 AM [facility] Calcium 7.0(L) 8.7 - 10.5 mg/dL 10/19/2024 12:51 AM [facility] BUN/Creatinine Ratio 18 10.0 - 25.0 Ratio 10/19/2024 12:51 AM [facility] Plasma/Serum 10/18/2024 11:1 1 PM EST 10/18/2024 11:48 PM EST Fuad Winter MD [place] [address], [place] [address] * (ABNORMAL) Blood Gas, Venous (10/18/2024 11:11 PM EST) Venous Blood PH 7.35 7.33 - 7.43 10/18/2024 11:50 PM [facility] Venous pCO2 27(L) 35 - 50 mmHG 10/18/2024 11:50 PM [facility] Venous pO2 185(H) 0 - 60 mmHG 10/18/2024 11:50 PM [facility] Venous Total CO2 15(L) 23 - 29 mmol/L 10/18/2024 11:50 PM [facility] Respiratory Info VM 50% 10/18/19 5:04 PM EST Base Deficiency 9.7 mmol/L 11:50 PM [facility] Comment:Reference Range: Neg ative 2 to Positive 3 Blood Blood specimen / Unknown 10/18/2024 11:11 PM EST 10/18/2024 11:45 PM EST Pushpa Gallegos MD [place] [address], [address] [address] * (ABNORMAL) BASIC METABOLIC PANEL (10/18/2024 10:15 PM EST) Glucose 113(H) 65 - 99 mg/dL 10/18/2024 10:59 PM [facility] Comment:Fasting: <100 mg/dL, Non-Fasting: <200 mg/dL (ADA 2004) Blood Urea Nitrogen (BUN) 91(H) 8 - 21 mg/dL 10/18/2024 10:59 PM [facility] Creatinine 5.2(H) 0.5 - 1.3 mg/dL 10/18/2024 10:59 PM [facility] eGFR 11(L) >59 10/18/2024 10:59 PM [facility] Comment:CKD-EPI (2020) in mL /min/1.73 sq meters. Sodium 145 136 - 145 mmol/L 10/18/2024 10:59 PM [facility] Potassium 4.2 3.4 - 5.3 mmol/L 10/18/2024 10:59 PM [facility] Chloride 111(H) 98 - 107 mmol/L 10/18/2024 10:59 PM [facility] CO2 14(L) 22 - 33 mmol/L 10/18/2024 10:59 PM [facility] Anion Gap 20(H) 7 - 17 10/18/2024 10:59 PM [facility] Calcium 7.3(L) 8.7 - 10.5 mg/dL 10/18/2024 10:59 PM [facility] BUN/Creatinine Ratio 18 10.0 - 25.0 Ratio 10/18/2024 10:59 PM [facility] Plasma/Serum 10/18/2024 10:1 5 PM EST 10/18/2024 10:21 PM EST Fuad Winter MD LAB BLOOD ORD ERABLES [address] [address], [place] [address] * Lactic Acid, Plasma (Routine) (10/18/2024 10:13 PM EST) Pathologist [facility] Lactic Acid 1.2 0.5 - 1.9 mmol/L 10/18/2024 10:56 PM EST [facility] Blood Plasma specimen / Unknown 10/18/2024 10:13 PM EST 10/18/2024 10:21 PM EST Pushpa Gallegos MD [place] [address], [place] [address] * (ABNORMAL) POCT Glucose, Fingerstick (10/18/2024 10:06 PM EST) Pathologist [facility] POC Glucose 123(H) 65 - 99 mg/dL [...] OF CARE TEST ORDERABLES Performing Organization Address [facility] Phone Number [facility] LAB See Below * (ABNORMAL) POCT Glucose, Fingerstick (10/18/2024 8:16 PM EST) POC Glucose 168(H) 65 - 99 mg/dL 10/18/2024 8:17 PM EST Blood specimen / Unknown 10/18/2024 8:16 PM EST 10/18/2024 8:17 PM EST Fuad Winter MD POINT OF CARE TEST ORDERABLES Performing Organization Address [facility] Co al Phone Number [facility] See Below * (ABNORMAL) Blood Gas, Venous (10/18/2024 7:14 PM EST) Venous Blood PH 7.31(L) 7.33 - 7.43 10/18/2024 7:25 PM EST [facility] Venous pCO2 32(L) 35 - 50 mmHG 10/18/2024 7:25 PM EST [facility] Venous pO2 182(H) 0 - 60 mmHG 10/18/2024 7:25 PM EST [facility] Venous Total CO2 16(L) 23 - 29 mmol/L 10/18/2024 7:25 PM EST [facility] Respiratory Info VM 50% 10/18/19 5:04 PM EST Base Deficiency 9.7 mmol/L 7:25 PM [facility] Comment:Reference Range: Neg ative 2 to Positive 3 Blood Blood specimen / Unknown 10/18/2024 7:14 PM EST 10/18/2024 7:21 PM EST Pushpa Gallegos MD [place] [address], [place] [address] * (ABNORMAL) Basic Metabolic Panel (10/18/2024 7:14 PM EST) Glucose 154(H) 65 - 99 mg/dL 10/18/2024 7:55 PM [facility] Comment:Fasting: <100 mg/dL, Non-Fasting: <200 mg/dL (ADA 2004) Blood Urea Nitrogen (BUN) 87(H) 8 - 21 mg/dL 10/18/2024 7:55 PM [facility] Creatinine 5.1(H) 0.5 - 1.3 mg/dL 10/18/2024 7:55 PM [facility] eGFR 11(L) >59 10/18/2024 7:55 PM [facility] Comment:CKD-EPI (2020) in mL /min/1.73 sq meters. Sodium 144 136 - 145 mmol/L 10/18/2024 7:55 PM [facility] Potassium 4.7 3.4 - 5.3 mmol/L 10/18/2024 7:55 PM [facility] Chloride 110(H) 98 - 107 mmol/L 10/18/2024 7:55 PM [facility] CO2 14(L) 22 - 33 mmol/L 10/18/2024 7:55 PM [facility] Anion Gap 20(H) 7 - 17 10/18/2024 7:55 PM [facility] Calcium 7.0(L) 8.7 - 10.5 mg/dL 10/18/2024 7:55 PM [facility] BUN/Creatinine Ratio 17 10.0 - 25.0 Ratio 10/18/2024 7:55 PM [facility] Blood (Plasma/Serum) 10/18/2024 7:14 PM EST 10/18/2024 7:22 PM EST Fuad Winter MD LAB BLOOD ORD ERABLES [address] [address], [address] [address] * (ABNORMAL) POCT Glucose, Fingerstick (10/18/2024 7:13 PM EST) POC Glucose 166(H) 65 - 99 mg/dL 10/18/2024 7:15 PM EST Blood specimen / Unknown 10/18/2024 7:13 PM EST 10/18/2024 7:15 PM EST Fuad Winter MD POINT OF CARE TEST ORDERABLES Performing Organization Address [facility] Co de Phone Number HOSPITAL LAB [...] procedure was performed and dictated by CHELLY Giatan Narrative 10/19/2024 8:19 AM EST PROCEDURE: Ultrasound-guided thoracentesis INDICATION: Bilateral pleural effusion. SPECIMEN: Specimen collected as requested. Sample left with bedside RN. ACCESS: 6 [place] [id number]-[id number]-[id number] closed needle/catheter system ?? REQUESTING PRACTITIONER: Cheryl [...] adjacent organs or vascular structures. A 6 [place] Pinn-F-Uroeefce closed needle/catheter system was utilized for access. [...] adjacent organs or vascular structures. A 6 [place] Vmef-W-Tnfkvlhc closed needle/catheter system was utilized for access. 550 mL of clear devorah fluid was aspirated before drainage ceased. The catheter was removed and a sterile dressing applied. The patient tolerated the procedure well without evidence of complications. ?? Pushpa Gallegos MD [facility] ORDERABLES * (ABNORMAL) POCT Glucose, [...] No fungus isolated 11/02/2024 8:34 AM EST [facility] 10/18/2024 5:55 PM EST 10/18/2024 7:54 PM EST Fuad Winter MD MICROBIOLOGY - GENERAL ORDERABLES Performing Organization Address City/[facility]/ZIP Co de Phone Number [facility] [address] * Body Fluid Culture (aerobic, anaerobic and Gram stain) (10/18/2024 5:55 PM EST) Gram stain suggestive of Few neutrophils Mononuclear cells No organisms seen 10/18/2024 9:52 PM EST [facility] Culture No aerobes and anaerobes isolated after 7 days 10/25/2024 3:19 PM [facility] 10/18/2024 5:55 PM EST 10/18/2024 7:53 PM EST Fuad Winter MD MICROBIOLOGY - GENERAL ORDERABLES Performing Organization Address City/[facility] Co de Phone Number [facility] [address] [place] [address], [address] [id number] * Protein, Body Fluid (10/18/2024 5:50 PM EST) Source RIGHT PLEURAL EFFUSION 10/18/2024 6:49 PM EST [facility] Protein, Body Fluid 2.2 g/dL 10/18/2024 7:15 PM [facility] Comment:The reference interv al(s) and other method performance specifications are unavailable for this body fluid. Comparison of this result with the concentration in the blood, serum, or plasma is recommended. 10/18/2024 5:50 PM EST 10/18/2024 6:49 PM EST Fuad Winter MD BODY FLUIDS A ND STOOLS ORDERABLES Performing Organization Address [facility] [place] [address], [place] [address] * PH, BODY FLUID (10/18/2024 5:50 PM EST) Source RIGHT PLEURAL EFFUSION 10/18/2024 6:49 PM EST [facility] pH, Body Fluid 7.34 10/18/2024 7:14 PM EST [facility] 10/18/2024 5:50 PM EST 10/18/2024 6:49 PM EST Fuad Winter MD BODY FLUIDS A ND STOOLS ORDERABLES Performing Organization Address [facility] [place] [address], [place] [address] * Glucose, Body Fluid (10/18/2024 5:50 PM EST) Source RIGHT PLEURAL EFFUSION 10/18/2024 6:49 PM EST [facility] Glucose, Body Fluid 151 mg/dL 10/18/2024 7:15 PM EST [facility] Comment:The reference interv al(s) and other method performance specifications are unavailable for this body fluid. Comparison of this result with the concentration in the blood, serum, or plasma is recommended. 10/18/2024 5:50 PM EST 10/18/2024 6:49 PM EST Fuad Winter MD BODY FLUIDS A ND STOOLS ORDERABLES Performing Organization Address [facility] [place] [address], [place] [address] * Cell Count, Reflex Differential, Body Fluid (10/18/2024 5:50 PM EST) Appearance, Body Fluid Cloudy 10/18/2024 8:25 PM EST [facility] Color [place] 10/18/2024 8:25 PM [facility] Nucleated Cells, Fluid 435 /CUMM 10/18/2024 8:24 PM [facility] RBC, Fluid 11,000 /CUMM 10/18/2024 8:24 PM [facility] Neutrophil, Body Fluid 3 % 10/18/2024 8:25 PM [facility] Lymphoctye, Body Fluid 27 % 10/18/2024 8:25 PM [facility] Monocyte, Body Fluid 21 % 10/18/2024 8:25 PM [facility] Histiocyte, Body Fluid 46 % 10/18/2024 8:25 PM [facility] Mesothelial, Body Fluid 3 % 10/18/2024 8:25 PM [facility] Smear Comment, Body Fluid The reference interval and other method performance specifications are unavailable for this body fluid. Comparison of the result with concentration in the blood, serum, or plasma is recommended 10/18/2024 8:25 PM [facility] 10/18/2024 5:50 PM EST 10/18/2024 6:49 PM EST Fuad Winter MD BODY FLUIDS A ND STOOLS ORDERABLES Performing Organization Address City/State/[facility] [place] [address], [place] [address] * Culture - Pleural Fluid (aerobic, anaerobic and Gram stain) (10/18/2024 5:40 PM EST) Special Requests Limited quantity of fluid received, results may be impacted. 10/19/2024 9:03 AM [facility] Gram stain suggestive of Few neutrophils Mononuclear cells No organisms seen 10/18/2024 9:59 PM [facility] Culture No aerobes and anaerobes isolated after 7 days 10/25/2024 3:19 PM [facility] Microbiology Specimen from pleura obtained by thoracentesis / Unknown 10/18/2024 5:40 PM EST 10/18/2024 7:48 PM EST Pushpa Gallegos MD MICROBIOLOGY - GENER AL ORDERABLES [facility] [address] [place] [address], [place] [address] * Protein - Pleural Fluid (10/18/2024 5:39 PM EST) Source PLEURAL 10/18/2024 5:40 PM EST Protein, Body Fluid 2.2 g/dL 10/18/2024 7:27 PM EST [facility] Comment:The reference interv al(s) and other method performance specifications are unavailable for this body fluid. Comparison of this result with the concentration in the blood, serum, or plasma is recommended. Specimen from pleura obtained by thoracentesis / Unknown 10/18/2024 5:39 PM EST 10/18/2024 6:57 PM EST Pushpa Gallegos MD BODY FLUIDS AND STOO LS ORDERABLES Performing Organization Address [facility] [place] [address], [place] [address] * pH - Pleural Fluid (not avail at [facility]) (10/18/2024 5:39 PM EST) Source PLEURAL 10/18/2024 5:40 PM EST pH, Body Fluid 7.33 10/18/2024 7:15 PM EST [facility] Body Fluid Specimen from pleura obtained by thoracentesis / Unknown 10/18/2024 5:39 PM EST 10/18/2024 6:57 PM EST Pushpa Gallegos MD BODY FLUIDS AND STOO LS ORDERABLES Performing Organization Address [facility] [place] [address], [place] [address] * LDH - Pleural Fluid (10/18/2024 5:39 PM EST) Source PLEURAL 10/18/2024 5:40 PM EST Lactate Dehydrogenase, Body Fluid 143 U/L 10/18/2024 7:27 PM EST [facility] Comment:The reference interv al(s) and other method performance specifications are unavailable for this body fluid. Comparison of this result with the concentration in the blood, serum, or plasma is recommended. Body Fluid Specimen from pleura obtained by thoracentesis / Unknown 10/18/2024 5:39 PM EST 10/18/2024 6:57 PM EST Pushpa Gallegos MD BODY FLUIDS AND STOO LS ORDERABLES Performing Organization Address [facility] [place] [address], [place] [address] * Glucose - Pleural Fluid (10/18/2024 5:39 PM EST) Source PLEURAL 10/18/2024 5:40 PM EST Glucose, Body Fluid 146 mg/dL 10/18/2024 7:27 PM [facility] Comment:The reference interv al(s) and other method performance specifications are unavailable for this body fluid. Comparison of this result with the concentration in the blood, serum, or plasma is recommended. Specimen from pleura obtained by thoracentesis / Unknown 10/18/2024 5:39 PM EST 10/18/2024 6:57 PM EST Pushpa Gallegos MD BODY FLUIDS AND STOO LS ORDERABLES Performing Organization Address [facility] [place] [address], [place] [address] * Cell Count, Reflex Differential, Body Fluid (10/18/2024 5:39 PM EST) Appearance, Body Fluid Cloudy 10/18/2024 8:22 PM EST [facility] Color [place] 10/18/2024 8:22 PM [facility] Nucleated Cells, Fluid 721 /CUMM 10/18/2024 8:22 PM [facility] RBC, Fluid 10,000 /CUMM 10/18/2024 8:22 PM [facility] Neutrophil, Body Fluid 0 % 10/18/2024 8:22 PM EST [facility] Lymphoctye, Body Fluid 57 % 10/18/2024 8:22 PM [facility] Monocyte, Body Fluid 15 % 10/18/2024 8:22 PM [facility] Histiocyte, Body Fluid 27 % 10/18/2024 8:22 PM [facility] Basophil, Body Fluid 1 % 10/18/2024 8:22 PM [facility] Smear Comment, Body Fluid The reference interval and other method performance specifications are unavailable for this body fluid. Comparison of the result with concentration in the blood, serum, or plasma is recommended 10/18/2024 8:22 PM [facility] Specimen from pleura obtained by thoracentesis / Unknown 10/18/2024 5:39 PM EST 10/18/2024 6:57 PM EST Pushpa Gallegos MD BODY FLUIDS [place] [address], [place] [address] * (ABNORMAL) POCT Glucose, Fingerstick (10/18/2024 5:04 PM EST) POC Glucose 119(H) 65 - 99 mg/dL 10/18/2024 6:07 PM EST Blood specimen / Unknown 10/18/2024 5:04 PM EST 10/18/2024 6:07 PM EST Fuad Winter MD POINT OF CARE TEST ORDERABLES [facility]OSPITAL LAB See Below * (ABNORMAL) B-Hydroxybutyrate (10/18/2024 5:04 PM EST) B-Hydroxybutyrate 0.45(H) <0.28 mmol/L 10/18/2024 6:44 PM [facility] Comment: In the presence of uncontrolled [...] LAB BLOOD ORD ERABLES Performing Organization Address [facility] [place] [address], [place] [address] * (ABNORMAL) Blood Gas, Venous (10/18/2024 5:04 PM EST) Venous Blood PH 7.32(L) 7.33 - 7.43 10/18/2024 5:27 PM [facility] Venous pCO2 31(L) 35 - 50 mmHG 10/18/2024 5:27 PM [facility] Venous pO2 131(H) 0 - 60 mmHG 10/18/2024 5:27 PM [facility] Venous Total CO2 17(L) 23 - 29 mmol/L 10/18/2024 5:27 PM [facility] Respiratory Info NASAL 6 L/MIN 10/18/2024 3:04 PM EST Base Deficiency 9.2 mmol/L 5:27 PM [facility] Comment:Reference Range: Neg ative 2 to Positive 3 Blood Blood specimen / Unknown 10/18/2024 5:04 PM EST 10/18/2024 5:13 PM EST Pushpa Gallegos MD LAB BLOOD ORDERABLES Performing Organization Address [facility]/[place] [address], [place] [address] * Heparin Assay (Anti Xa) (10/18/2024 5:04 PM EST) Anti Xa 0.23 IU/mL 10/18/2024 6:17 PM [facility] Comment: (NOTE) Heparin Thromboembolic/Standard/Full Dose Protocol: [...] MD LAB BLOOD ORDERABLES Performing Organization Address City/[facility]/[place] [address], [place] [address] * (ABNORMAL) Basic Metabolic Panel (10/18/2024 5:04 PM EST) Glucose 112(H) 65 - 99 mg/dL 10/18/2024 6:44 PM [facility] Comment:Fasting: <100 mg/dL, Non-Fasting: <200 mg/dL (ADA 2004) Blood Urea Nitrogen (BUN) 85(H) 8 - 21 mg/dL 10/18/2024 6:44 PM [facility] Creatinine 5.2(H) 0.5 - 1.3 mg/dL 10/18/2024 6:44 PM [facility] eGFR 11(L) >59 10/18/2024 6:44 PM [facility] Comment:CKD-EPI (2020) in mL /min/1.73 sq meters. Sodium 145 136 - 145 mmol/L 10/18/2024 6:44 PM [facility] Potassium 4.4 3.4 - 5.3 mmol/L 10/18/2024 6:44 PM [facility] Chloride 110(H) 98 - 107 mmol/L 10/18/2024 6:44 PM [facility] CO2 15(L) 22 - 33 mmol/L 10/18/2024 6:44 PM [facility] Anion Gap 20(H) 7 - 17 10/18/2024 6:44 PM [facility] Calcium 7.1(L) 8.7 - 10.5 mg/dL 10/18/2024 6:44 PM [facility] BUN/Creatinine Ratio 16 10.0 - 25.0 Ratio 10/18/2024 6:44 PM [facility] Blood (Plasma/Serum) 10/18/2024 5:04 PM EST 10/18/2024 6:04 PM EST Fuad Winter MD [place] [address], [facility] [address] [address] * XR Chest 1 view-Portable (10/18/2024 4:14 PM EST) Anatomical Region Laterality Modality Chest Computed Radiogr aphy 10/18/2024 3:54 PM EST Impressions 10/19/2024 2:34 PM EST 1. ??Interval worsening of now moderate pulmonary edema. Superimposed infectious/inflammatory process cannot be entirely excluded. 2. ??Trace bilateral pleural effusions unchanged. Interpreted by: ??Mitchell Ascencio DO Cashier Office I personally reviewed the images and the [...] effusions unchanged. Interpreted by: Mitchell Ascencio DO Cashier Office I personally reviewed the images and the [...] OF CARE TEST ORDERABLES Performing Organization Address [facility] LAB See Below * (ABNORMAL) POCT Glucose, Fingerstick (10/18/2024 2:44 PM EST) POC Glucose 105(H) 65 - 99 mg/dL 10/18/2024 2:49 PM EST Blood specimen / Unknown 10/18/2024 2:44 PM EST 10/18/2024 2:48 PM EST Fuad Winter MD POINT OF CARE TEST ORDERABLES Performing Organization Address [facility] Number [facility] LAB See Below * POCT Glucose, Fingerstick (10/18/2024 1:44 PM EST) POC Glucose 92 65 - 99 mg/dL 10/18/2024 1:45 PM EST Blood specimen / Unknown 10/18/2024 1:44 PM EST 10/18/2024 1:45 PM EST Fuad Winter MD POINT OF CARE TEST ORDERABLES Performing Organization Address [facility] Number [facility] LAB See Below * (ABNORMAL) POCT Glucose, Fingerstick (10/18/2024 1:24 PM EST) POC Glucose 102(H) 65 - 99 mg/dL 10/18/2024 1:44 PM EST Blood specimen / Unknown 10/18/2024 1:24 PM EST 10/18/2024 1:44 PM EST Fuad Winter MD POINT OF CARE TEST ORDERABLES Performing Organization Address [facility]/ZIP Co de Phone Number HOSPITAL LAB See Below * (ABNORMAL) POCT Glucose, Fingerstick (10/18/2024 12:19 PM EST) Pathologist [facility] POC Glucose 160(H) 65 - 99 mg/dL 10/18/2024 12:19 PM EST Blood specimen / Unknown 10/18/2024 12:19 PM EST 10/18/2024 12:20 PM EST Fuad Winter MD POINT OF CARE TEST ORDERABLES HOSPITAL LAB See Below * ECHOCARDIOGRAM COMPREHENSIVE WITH CONTRAST (10/18/2024 12:14 PM EST) Pathologist [facility] IVS Mean (F:0.6-0.9, M:0.6-1.0) 1.0 cm IVS [...] system. ?Dr. Pushpa Gallegos was notified by [place] text at 12:36 PM. Technical Details Definity [...] 65 - 99 mg/dL 10/18/2024 12:14 PM [facility] Comment:Fasting: <100 mg/dL, Non-Fasting: <200 mg/dL (ADA 2004) Blood Urea Nitrogen (BUN) 84(H) 8 - 21 mg/dL 10/18/2024 12:14 PM [facility] Creatinine 5.0(H) 0.5 - 1.3 mg/dL 10/18/2024 12:14 PM [facility] eGFR 11(L) >59 10/18/2024 12:14 PM [facility] Comment:CKD-EPI (2020) in mL /min/1.73 sq meters. Sodium 145 136 - 145 mmol/L 10/18/2024 12:14 PM [facility] Potassium 4.2 3.4 - 5.3 mmol/L 10/18/2024 12:14 PM [facility] Chloride 111(H) 98 - 107 mmol/L 10/18/2024 12:14 PM [facility] CO2 14(L) 22 - 33 mmol/L 10/18/2024 12:14 PM [facility] Anion Gap 20(H) 7 - 17 10/18/2024 12:14 PM [facility] Calcium 7.1(L) 8.7 - 10.5 mg/dL 10/18/2024 12:14 PM [facility] BUN/Creatinine Ratio 17 10.0 - 25.0 Ratio 10/18/2024 12:14 PM [facility] Blood (Plasma/Serum) 10/18/2024 11:25 AM EST 10/18/2024 11:49 AM EST Fuad Winter MD LAB BLOOD ORD ERABLES Performing Organization Address [facility] Number [facility] [address] [place] [address], [facility] [address] [place] [address] * (ABNORMAL) POCT Glucose, Fingerstick (10/18/2024 11:19 AM EST) POC Glucose 215(H) 65 - 99 mg/dL 10/18/2024 11:22 AM EST Blood specimen / Unknown 10/18/2024 11:19 AM EST 10/18/2024 11:22 AM EST Fuad Winter MD POINT OF CARE TEST ORDERABLES Performing Organization Address [facility] Phone Number [facility] LAB See Below * (ABNORMAL) POCT Glucose, Fingerstick (10/18/2024 10:16 AM EST) POC Glucose 289(H) 65 - 99 mg/dL 10/18/2024 10:17 AM EST Blood specimen / Unknown 10/18/2024 10:16 AM EST 10/18/2024 10:17 AM EST Fuad Winter MD POINT OF CARE TEST ORDERABLES Performing Organization Address [facility] Phone Number [facility] LAB See Below * Heparin Assay (Anti Xa) (10/18/2024 9:57 AM EST) Anti Xa 0.47 IU/mL 10/18/2024 10:37 AM EST [facility] Comment: (NOTE) Heparin Thromboembolic/Standard/Full Dose Protocol: Therapeutic [...] MD LAB BLOOD ORDERABLES Performing Organization Address [facility]/State/[facility] Co de Phone Number [facility] [address] [place] [address], [facility] [address] [place] [address] * (ABNORMAL) Basic Metabolic Panel (10/18/2024 9:57 AM EST) Glucose 304(H) 65 - 99 mg/dL 10/18/2024 10:35 AM [facility] Comment:Fasting: <100 mg/dL, Non-Fasting: <200 mg/dL (ADA 2004) Blood Urea Nitrogen (BUN) 87(H) 8 - 21 mg/dL 10/18/2024 10:35 AM [facility] Creatinine 5.0(H) 0.5 - 1.3 mg/dL 10/18/2024 10:35 AM [facility] eGFR 11(L) >59 10/18/2024 10:35 AM [facility] Comment:CKD-EPI (2020) in mL /min/1.73 sq meters. Sodium 142 136 - 145 mmol/L 10/18/2024 10:35 AM [facility] Potassium 4.3 3.4 - 5.3 mmol/L 10/18/2024 10:35 AM [facility] Chloride 108(H) 98 - 107 mmol/L 10/18/2024 10:35 AM [facility] CO2 13(L) 22 - 33 mmol/L 10/18/2024 10:35 AM [facility] Anion Gap 21(H) 7 - 17 10/18/2024 10:35 AM [facility] Calcium 7.2(L) 8.7 - 10.5 mg/dL 10/18/2024 10:35 AM [facility] BUN/Creatinine Ratio 17 10.0 - 25.0 Ratio 10/18/2024 10:35 AM [facility] Blood (Plasma/Serum) 10/18/2024 9:57 AM EST 10/18/2024 10:10 AM EST Fuad Winter MD [place] [address], [address] [address] * (ABNORMAL) POCT Glucose, Fingerstick (10/18/2024 9:39 AM EST) POC Glucose 324(H) 65 - 99 mg/dL 10/18/2024 9:40 AM EST Blood specimen / Unknown 10/18/2024 9:39 AM EST 10/18/2024 9:40 AM EST Fuad Winter MD POINT OF CARE TEST ORDERABLES Performing Organization Address [facility] LAB See Below * (ABNORMAL) POCT Glucose, Fingerstick (10/18/2024 8:34 AM EST) POC Glucose 443(H) 65 - 99 mg/dL 10/18/2024 8:35 AM EST Blood specimen / Unknown 10/18/2024 8:34 AM EST 10/18/2024 8:35 AM EST Fuad Winter MD POINT OF CARE TEST ORDERABLES Performing Organization Address [facility] LAB See Below * (ABNORMAL) POCT Glucose, Fingerstick (10/18/2024 7:31 AM EST) POC Glucose 461(H) 65 - 99 mg/dL 10/18/2024 7:33 AM EST Blood specimen / Unknown 10/18/2024 7:31 AM EST 10/18/2024 7:33 AM EST Fuad Winter MD POINT OF CARE TEST ORDERABLES Performing Organization Address [facility] LAB See Below * (ABNORMAL) BASIC METABOLIC PANEL (10/18/2024 7:25 AM EST) Glucose 476(HH) 65 - 99 mg/dL 10/18/2024 8:03 AM [facility] Comment:Fasting: <100 mg/dL, Non-Fasting: <200 mg/dL (ADA 2005) Blood Urea Nitrogen (BUN) 84(H) 8 - 21 mg/dL 10/18/2024 8:03 AM [facility] Creatinine 5.0(H) 0.5 - 1.3 mg/dL 10/18/2024 8:03 AM [facility] eGFR 11(L) >59 10/18/2024 8:03 AM [facility] Comment:CKD-EPI (2020) in mL /min/1.73 sq meters. Sodium 139 136 - 145 mmol/L 10/18/2024 8:03 AM [facility] Potassium 4.5 3.4 - 5.3 mmol/L 10/18/2024 8:03 AM [facility] Chloride 106 98 - 107 mmol/L 10/18/2024 8:03 AM [facility] CO2 12(LL) 22 - 33 mmol/L 10/18/2024 8:03 AM [facility] Anion Gap 21(H) 7 - 17 10/18/2024 8:03 AM [facility] Calcium 6.6(LL) 8.7 - 10.5 mg/dL 10/18/2024 8:03 AM [facility] BUN/Creatinine Ratio 17 10.0 - 25.0 Ratio 10/18/2024 8:03 AM [facility] Plasma/Serum 10/18/2024 7:25 AM EST 10/18/2024 7:33 AM EST Fuad Winter MD [place] [address], [place] [address] * (ABNORMAL) Troponin T, High Sensitivity - STAT and in 1 hour (10/18/2024 7:25 AM EST) High Sensitivity Troponin T 2,403(HH) <23 ng/L 10/18/2024 8:03 AM [facility] Comment:Recurring Critical R esult. Previously phoned. Delta (Change) 573(H) <3 10/18/2024 8:03 AM [facility] Comment:Increased Blood (Plasma/Serum) 10/18/2024 7:25 AM EST 10/18/2024 7:33 AM EST Fuad Winter MD [place] [address], [address] [place] [address] * (ABNORMAL) POCT Glucose, Fingerstick (10/18/2024 6:28 [...] atelectasis, respectively. Interpreted by: ??Prem Coffman MD Cashier Office I personally reviewed the images and the [...] atelectasis, respectively. Interpreted by: Prem Coffman MD Cashier Office I personally reviewed the images and the resident's preliminary report and AGREE with the report as it is now presented ([id number]). Fuad Winter MD IMG DIAGNOSTI C IMAGING ORDERABLES * ECG 12 lead (10/18/2024 5:28 AM EST) Ventricular rate 89 BPM EKG [facility] QRS duration 88 ms EKG [facility] Q-T interval 366 [facility] calculation (Bazett) 446 ms EKG [facility] R axis 36 degrees EKG [facility] T axis 184 degrees EKG [facility] 10/18/2024 5:28 AM EST Narrative G [facility] - 10/18/2024 9:43 AM EST Normal sinus rhythm ST & T wave abnormality, consider lateral ischemia Abnormal ECG No previous ECGs available Confirmed by MD Ortiz Daniel ([id number]) on 10/18/2024 9:42:59 AM Procedure Note Alonso Ortiz MD - 10/18/[address] & T wave abnormality, consider lateral ischemia Abnormal ECG No previous ECGs available Confirmed by MD Ortiz Daniel ([id number]) on 10/18/2024 9:42:59 AM Fuad Winter MD [facility] * (ABNORMAL) POCT Glucose, Fingerstick (10/18/2024 5:24 AM EST) [facility] POC Glucose >500(H) 65 - 99 mg/dL 10/18/2024 5:25 AM EST Blood specimen / Unknown 10/18/2024 5:24 AM EST 10/18/2024 5:25 AM EST Fuad Winter MD POINT OF CARE TEST ORDERABLES HOSPITAL LAB See Below * Heparin Assay (Anti-Xa) (10/18/2024 5:16 AM EST) [facility] Anti Xa 0.72 IU/mL 10/18/2024 5:58 AM EST [facility] Comment: (NOTE) Heparin Thromboembolic/Standard/Full Dose Protocol: Therapeutic [...] LAB BLOOD ORD ERABLES Performing Organization Address City/[facility]/[place] [address], [place] [address] * (ABNORMAL) Partial Thromboplastin Time (PTT) (10/18/2024 5:16 AM EST) Anticoagulant IV HEPARIN, UNFRACTIONATED 10/18/2024 5:18 AM EST Partial Thromboplastin Time (PTT) 68(H) 25 - 36 seconds 10/18/2024 5:58 AM EST [facility] Blood Plasma specimen / Unknown 10/18/2024 5:16 AM EST 10/18/2024 5:42 AM EST Fuad Winter MD LAB BLOOD ORD ERABLES Performing Organization Address [facility]/[place] [address], [place] [address] * (ABNORMAL) Protime-INR (10/18/2024 5:16 AM EST) Anticoagulant IV HEPARIN, UNFRACTIONATED 10/18/2024 5:18 AM EST Prothrombin Time (PT) 13.9(H) 10.0 - 13.5 seconds 10/18/2024 5:58 AM [facility] INR 1.2 10/18/2024 5:58 AM [facility] Comment:INR Therapeutic Rang es: Standard dose anticoagulant 2.0 to 3.0, High dose anticoagulant 2.5-3.5. Blood Plasma specimen / Unknown 10/18/2024 5:16 AM EST 10/18/2024 5:42 AM EST Fuad Winter MD LAB BLOOD ORD ERABLES Performing Organization Address City/[facility] [place] [address], [place] [address] * (ABNORMAL) proBNP, N-terminal (BNP) (10/18/2024 5:16 AM EST) proBNP, N-terminal >70,000(H) <450 pg/mL 10/18/2024 7:21 AM [facility] Blood Plasma specimen / Unknown 10/18/2024 5:16 AM EST 10/18/2024 5:42 AM EST Fuad Winter MD LAB BLOOD ORD ERABLES Performing Organization Address City/[facility] [place] [address], [place] [address] * (ABNORMAL) B-Hydroxybutyrate (10/18/2024 5:16 AM EST) B-Hydroxybutyrate 3.63(H) <0.28 mmol/L 10/18/2024 6:38 AM [facility] Comment: In the presence of uncontrolled [...] LAB BLOOD ORD ERABLES Performing Organization Address [facility] [place] [address], [place] [address] * (ABNORMAL) Osmolality (10/18/2024 5:16 AM EST) Osmolality, Serum/Plasma 359(H) 285 - 295 mOsm/Kg 10/18/2024 6:43 AM [facility] Blood (Plasma/Serum) 10/18/2024 5:16 AM EST 10/18/2024 5:42 AM EST Fuad Winter MD LAB BLOOD ORD ERABLES Performing Organization Address [facility] [place] [address], [place] [address] * (ABNORMAL) Blood Gas, Venous (10/18/2024 5:16 AM EST) Venous Blood PH 7.18(LL) 7.33 - 7.43 10/18/2024 5:55 AM [facility] Comment:Test results repeate d. Venous pCO2 27(L) 35 - 50 mmHG 10/18/2024 5:55 AM [facility] Venous pO2 78(H) 0 - 60 mmHG 10/18/2024 5:55 AM [facility] Venous Total CO2 11(L) 23 - 29 mmol/L 10/18/2024 5:55 AM [facility] Respiratory Info NASAL 5 L/MIN 10/18/2024 5:17 AM EST Base Deficiency 17.1 mmol/L 5:55 AM [facility] Comment:Reference Range: Neg ative 2 to Positive 3 Blood Blood specimen / Unknown 10/18/2024 5:16 AM EST 10/18/2024 5:40 AM EST Fuad Winter MD LAB BLOOD ORD ERABLES Performing Organization Address City/[facility]/ZIP Co de Phone Number [place] [address] [place] [address], [facility] [address] [place] [address] * (ABNORMAL) Complete Blood Count, with Differential (10/18/2024 5:16 AM [facility]) White Blood Cell Count 11.5(H) 4.0 - 11.0 Thou/uL 10/18/2024 5:48 AM [facility] Platelet Count 265 150 - 450 Thou/uL 10/18/2024 5:48 AM [facility] Hemoglobin 8.5(L) 13.0 - 17.7 g/dL 10/18/2024 5:48 AM [facility] Hematocrit 27.7(L) 39.0 - 54.0 % 10/18/2024 5:48 AM [facility] Red Blood Cell Count 2.72(L) 4.50 - 6.20 Mil/uL 10/18/2024 5:48 AM [facility] MCV 102(H) 80 - 100 fL 10/18/2024 5:48 AM [facility] MCH 31.3(H) 27.0 - 31.0 pg 10/18/2024 5:48 AM [facility] MCHC 30.7 30.0 - 36.0 g/dL 10/18/2024 5:48 AM [facility] RDW 16.4(H) 11.5 - 14.5 % 10/18/2024 5:48 AM [facility] MPV 11.3 7.5 - 12.5 fL 10/18/2024 5:48 AM [facility] Neutrophils Auto 86.0 % 10/18/19 5:48 AM [facility] Immature Granulocytes 0.4 % 10/18/2024 5:48 AM [facility] Lymphocytes Auto 9.2 % 10/18/19 5:48 AM [facility] Monocytes Auto 4.3 % 10/18/2024 5:48 AM [facility] Eosinophils Auto 0.0 % 10/18/19 5:48 AM [facility] Basophils Auto 0.1 % 10/18/2024 5:48 AM [facility] Abs Neutrophils Auto 9.88(H) 2.00 - 7.50 Thou/uL 10/18/2024 5:48 AM [facility] Abs Immature Granulocytes 0.05 0.00 - 0.10 Thou/uL 10/18/2024 5:48 AM [facility] Abs Lymphocytes Auto 1.06(L) 1.50 - 4.50 Thou/uL 10/18/2024 5:48 AM [facility] Abs Monocytes Auto 0.49 0.20 - 1.50 Thou/uL 10/18/2024 5:48 AM [facility] Abs Eosinophils Auto 0.00 0.00 - 0.70 Thou/uL 10/18/2024 5:48 AM [facility] Abs Basophils Auto 0.01 0.00 - 0.20 Thou/uL 10/18/2024 5:48 AM [facility] Blood Blood specimen / Unknown 10/18/2024 5:16 AM EST 10/18/2024 5:42 AM EST Fuad Winter MD [place] [address], [place] [address] * (ABNORMAL) Troponin T, High Sensitivity - STAT and in 1 hour (10/18/2024 5:16 AM EST) [facility] High Sensitivity Troponin T 1,830(HH) <23 ng/L 10/18/2024 6:38 AM [facility] Delta (Change) NO PREVIOUS RESULT <3 10/18/2024 6:38 AM [facility] Blood (Plasma/Serum) 10/18/2024 5:16 AM EST 10/18/2024 5:42 AM EST Fuad Winter MD [place] [address], [place] [address] * Magnesium (10/18/2024 5:16 AM EST) [facility] Magnesium 1.7 1.6 - 2.7 mg/dL 10/18/2024 6:38 AM [facility] Blood (Plasma/Serum) 10/18/2024 5:16 AM EST 10/18/2024 5:42 AM EST Fuad Winter MD LAB BLOOD ORD ERABLES [address] [address], [address] [address] * (ABNORMAL) Basic Metabolic Panel (10/18/2024 5:16 AM EST) Glucose 569(HH) 65 - 99 mg/dL 10/18/2024 6:38 AM [facility] Comment:Fasting: <100 mg/dL, Non-Fasting: <200 mg/dL (ADA 2004) Blood Urea Nitrogen (BUN) 83(H) 8 - 21 mg/dL 10/18/2024 6:38 AM [facility] Creatinine 4.9(H) 0.5 - 1.3 mg/dL 10/18/2024 6:38 AM [facility] eGFR 11(L) >59 10/18/2024 6:38 AM [facility] Comment:CKD-EPI (2020) in mL /min/1.73 sq meters. Sodium 140 136 - 145 mmol/L 10/18/2024 6:38 AM [facility] Potassium 4.9 3.4 - 5.3 mmol/L 10/18/2024 6:38 AM [facility] Chloride 104 98 - 107 mmol/L 10/18/2024 6:38 AM [facility] CO2 8(LL) 22 - 33 mmol/L 10/18/2024 6:38 AM [facility] Anion Gap 28(H) 7 - 17 10/18/2024 6:38 AM [facility] Calcium 6.6(LL) 8.7 - 10.5 mg/dL 10/18/2024 6:38 AM [facility] BUN/Creatinine Ratio 17 10.0 - 25.0 Ratio 10/18/2024 6:38 AM [facility] Blood (Plasma/Serum) 10/18/2024 5:16 AM EST 10/18/2024 5:42 AM EST Fuad Winter MD LAB BLOOD ORD ERABLES [facility] [address] [place] [address], [facility] [address] [place] [address] documented in this encounter Visit Diagnoses Not [...] = 50 units/mL, Indication for Anticoagulation: Acute MS 0739 (Handoff - Provider: Torie Kwan RN [...] documented as of this encounter Care Teams Safety Leader Relationship Specialty Start Date End Date Diaz Akers MD PCP - General Internal Medicine 10/20/24 documented as of this encounter
--- OUTSIDE RECORDS SUMMARY | 2024-11-12 13:21 | XMS_ITS | Encounter Summary ---
Author Organization [facility] Address [address] [place] [address] Care Team Providers Care Websphere Commerce Architect Name Role Phone Diaz Akers MD Primary Care Provider Soledad vailable Reason for Visit * Reason Comments Abnormal Test Result * Auth/Cert Specialty Diagnoses / Procedures Referred By Danielle t Referred To Contact Diagnoses DKA (diabetic ketoacidosis) ([facility]) NSTEMI, DKA, Pneumonia Procedures OTHER ADMINISTRATIVE ADJUSTMENT (INSURANCE) Referral ID Status Reason Start Date Expiration Date Visits Re quested Visits Authorized [id number] 1 1 Encounter Details Date Type Department Care Team (Late st Contact Info) Description 10/18/2024 5:10 AM EST - 11/01/2024 4:42 PM [facility] Hospital Encounter [address] [phone] Fuad Winter MD [address] [place] [address] Branden Boyd MD [address] [address] Pushpa Gallegos MD [address] [address] Kristopher Hickey MD [address] [place] [address] Irma Tilley MD [address] [address] Jessica Strange MD [address] [place] [id number] Adilia Woo MD [address] [place] [id number] Magdaleno Crowder MD [address] [place] [id number] Neymar Mcfarland MD [address] [place] [phone] Madhav Ryan MD [address] [place] [phone] Thomas Medrano MD [address] [place] [id number] Osmar Valdez MD [address] [place] [id number] NSTEMI (non-ST elevated myocardial infarction) (HCC) (Primary Dx); Diabetic ketoacidosis without coma associated with type 2 diabetes mellitus (HCC) Discharge Disposition: Home with Health Care Services Social History Tobacco Use Types Packs/Day Years Used Date Smoking Tobacco: Never Passive Smoke Exposure: Never Smokeless Tobacco: Never Tobacco Cessation:Counseling Given: Not Answered [facility] Utilities Answer Date Recorded In the past 12 months has [employer], gas, oil, or water [employer] threatened to shut off services in your [...] any time in the past 12 m [facility], were you homeless or living in [...] been on hemodialysis follows with nephrology in [place]), insulin-dependent diabetes, hypertension presented from outside hospital and transferred to [facility] for concerns of NSTEMI and DKA. Patient [...] 1830. On 10/18/2024, he was transferred to [facility] intensive care unit. He received treatment to DKA, acidosis and hyperglycemia improved on intravenous fluid and insulin therapy. Upon admission to [facility] NT-proBNP was found to have 70K and [...] titration of his medications through his primary director internal audit.. Endocrine service provided recommendations for insulin and he was switched from Januvia to Tradjenta at the time of discharge. Consults: Consults placed: Procedures Inpatient consult to cardiology ([facility] Cardiology) Inpatient consult to cardiology ([facility] Card[facility]) Inpatient consult to Endocrinology Inpatient consult to Nutrition Services Procedures: Surgical/Procedural Cases on this Admission Case IDs Date Procedure Surgeon Location Status [id number] 10/31/24 CORONARY ANGIO W/LV Calixto Ureña MD MACHINE [employer] Comp Diagnostic Studies: XR Chest 1 view-Portable [...] effusions unchanged. Interpreted by: Mitchell Ascencio DO Coper Hand I personally reviewed the images and the [...] Sample left with bedside RN. ACCESS: 6 English Bmap-L-Ogwehjce closed needle/catheter system REQUESTING PRACTITIONER: Cheryl Blue [...] adjacent organs or vascular structures. A 6 English Iuqa-E-Qpcttupn closed needle/catheter system was utilized for access. [...] adjacent organs or vascular structures. A 6 English Xegf-M-Avibjhlm closed needle/catheter system was utilized for access. [...] system. Dr. Pushpa Gallegos was notified by Cameron text at 12:36 PM. XR Chest 1 [...] atelectasis, respectively. Interpreted by: Prem Coffman MD Coper Hand I personally reviewed the images and the [...] system. Dr. Pushpa Gallegos was notified by [employer] at 12:36 PM. Results from last 7 [...] through Care Everywhere. * Angiogram Care After (Senegalese) documented in this encounter Medications at Time [...] 11/01/2024 9:27 AM EST Endocrinology Progress Note PATIENT SERVICES REP Endocrinology - Medicine Today's Date: 11/01/2024 Admit [...] are interchangable*)- order B-D Debby 4 mm Flaxton (15 mL). Humalog KwikPen (U100) (the following are interchangable) - order B-D Debby 4 mm Flaxton (15 mL). * Lantus Solostar, Basaglar KwikPen, [...] 47 Diet: Diet Cardiac; Carb Counting 60g/meal 8778-2460 kcal; 2 gm NA (Low Sodium); Low [...] Intake/Output Summary (Last 24 hours) at 11/01/2024 0921 Last data filed at 11/01/2024 0916 Gross [...] intake - dietary recall from the pt and/forest economist, and NPO status. Time spent communicating with other health child care specialist including the RN Signed Day Casarez Endocrinology [...] level of independence with functional mobility. Current [facility] Basic Mobility Score: 23 Rehab Plan [...] Progressive Mobility Progressive Mobility Level Achieved Ambulation [facility] Basic Mobility Turning from your back [...] Climbing 3-5 steps with a railing? 3 [facility] Basic Mobility Score 23 Therapy Assessment/Plan [...] d/t HTN + DM (neph Dr in [place]), admit as xfer fromOSH with dyspnea (COVID+) [...] Calcitriol daily. Needs to continue follow-up with radiologic therapist on d/c. Sign: Garth Perez DO 11/01/2024 12:58 PM * Ysable Jones PA-C - 11/01/2024 7:25 AM EST Images from the original note were not included. 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 He was initially admitted to the MICU on insulin drip. Troponin found to be elevated 5581-1888, EKG noted to be sinus with poor R wave progression and nonspecific ST changes. He was initiated on a heparin drip for NSTEMI. Course further complicated by acute HFrEF LVEF 28%, COVID, and ALISA on CKD. [facility] with moderate proximal and mid LAD calcified focal stenosis, severe stenosis of nondominant RCA, recommended for medical management. Plan [facility] 10/31: moderate proximal and mid LAD [...] agreement with plan of care as above. [facility] Cardiology will continue to follow. Subjective Denies [...] 10/31/2024 8:26 PM EST Pt transported to [facility] on monitor. 0 KENDALL [...] 4:29 PM EST Certified Diabetes Care & Irrigation Service Technician Note: Patient meets criteria for evaluation due [...] he is still here on Tuesday this [facility] can give him a reader with a [...] from diet unless treating low BG. Given [facility] Diabetes Tool Kit, Thriving with diabetes. Sections of importance in the booklet highlighted and reviewed with pt. 3. Survival Skills Needed & Taught: Insulin Pen Reinforcement: Pt. was able to verbally explain to this [facility] how he would place and prime [...] [phone] Signed: Abbey RODNEY, RN, [facility] 10/31/24 8PM * Garth Perez DO - 10/31/2024 9:51 AM EST Date 10/31/2024 Assessment & Plan 79y/o male PMHx DM, HTN, CKD V (bCR~5 from 05/2023) d/t HTN + DM (neph Dr in [place]), admit as xfer fromOSH with dyspnea (COVID+) [...] from the original note were not included. 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 He was initially admitted to the MICU on insulin drip. Troponin found to be elevated 5064-8486, EKG noted to be sinus with poor R wave progression and nonspecific ST changes. He was initiated on a heparin drip forNSTEMI. Course further complicated by acute HFrEF LVEF 28%, COVID, and ALISA on CKD. Awaiting [facility] today. Plan NSTEMI NSVT HTN HsT [...] agreement with plan of care as above. [facility] Cardiology will continue to follow. Subjective Denies [...] Medrano MD - 10/30/2024 9:43 AM EST [facility] Medicine Progress note Assessment & Plan NSTEMI [...] d/t HTN + DM (neph Dr in [place]), admit as xfer fromOSH with dyspnea (COVID+) [...] from the original note were not included. [facility] Cardiology Transfer Service Progress Note Chief Complaint: [...] today - Strict I&Os, daily weights Primary Vp Revenue Cycle: [facility] Cardiology will continue to follow. Case discussed with [facility] attending Dr. Valentino Subjective Pt reports he [...] d/t HTN + DM (neph Dr in [place]), admit as xfer fromOSH with dyspnea (COVID+) [...] hyperparathyroidism - continue calcitriol 0.5 mcg daily [facility] timing - TBD Subjective HPI Continues with O2 oxy mask overnight-weaned to NC this AM Heparin drip ongoing No dyspnea symptoms He remains patient despite multiple days of delay for [facility] Review of Systems Respiratory: negative Cardiovascular: [...] Diet Diabetic/ Calorie Controlled; Carb Counting 60g/meal 7510-6110 kcal History Diabetes History Pre-Admission Regimen: Lantus [...] in the patient record Speaking with a configuration management consultant Reviewing Labs & Radiology Signed Lucinda Whyte Endocrinology - Medicine 10/29/2024 8:33 AM * Macy Macias PA-C - 10/29/2024 7:45 AM EST Images from the original note were not included. [facility] Cardiology Transfer Service Progress Note Chief Complaint: [...] today - Strict I&Os, daily weights Primary Vp Revenue Cycle: [facility] Cardiology will continue to follow. Case discussed with [facility] attending Dr. Contreras Subjective Pt reports that he feels well Patient denies chest pain, shortness of breath, dizziness, lightheadedness, nausea, vomiting, palpitations Objective Telemetry Reviewed: NSR 78 Last Vitals Pulse:61,Resp:18,BP:(!) 144/65,SpO2:95 %,Weight:65.2 kg (143 lb 11.8 oz) Temp Last 24 hrs: Temp Min: 96.7 ??F (35.9 ??C) Max: 98.2 ??F (36.8 ??C) Intake/Output Summary (Last 24 hours) at 10/29/2024 0720 Last data filed at 10/29/2024 0633 Gross [...] d/t HTN + DM (neph Dr in [place]), admit as xfer fromOSH with dyspnea (COVID+) [...] 10/28/2024 9:31 AM EST Endocrinology Progress Note PATIENT SERVICES REP Endocrinology - Medicine Today's Date: 10/28/2024 Admit [...] Diet Diabetic/ Calorie Controlled; Carb Counting 60g/meal 5183-4420 kcal Steroids: None Infusions: heparin (porcine) IV [...] outside hospital with URI symptoms, transferred to [facility] for management of DKA and ICU, stable [...] 75 mg daily - Continue telemetry -- carpenter/labor most likely be on Monday 10/30, please [...] various nights and back to diet pending Muffle Worker for several days with concern that he [...] Subjective Overnight: Patient did not go to Muffle Worker yesterday, stable overnight no acute events Today: Patient seen and examined at this morning. He is on supplemental oxygen. He states he is feeling well and awaits Muffle Worker. I communicated that the cath is again [...] Patient remains on heparin drip pending cardiac laboratory associate. Patient requires intermittent doses of IV Lasix for pulmonary edema and work of breathing. Kavya Burgess MD. PGY-2 Internal Medicine Cameron Text Preferred Associated attestation - Madhav Ryan [...] outside hospital with URI symptoms, transferred to [facility] for management of DKA and ICU, stable [...] 75 mg daily - Continue telemetry -- carpenter/labor most likely be on Monday 10/30, please [...] patient has been n.p.o. at midnight pending Muffle Worker for several days resuming a diet in [...] Subjective Overnight: Patient did not go to Muffle Worker yesterday, stable overnight no acute events Today: Patient seen and examined at this morning. He is on supplemental oxygen. He states he is feeling well and awaits Muffle Worker. I communicated that the cath is again [...] gap. Patient remains on heparin drippending cardiac laboratory associate. Patient requires intermittent doses of IV Lasix for pulmonary edema and work of breathing. Donavon Rodgers MD PGY-1 Internal Medicine Cameron Text Preferred Associated attestation - Madhav Ryan [...] d/t HTN + DM (neph Dr in [place]), admit as xfer fromOSH with dyspnea (COVID+) [...] 10/27/2024 9:07 AM EST Endocrinology Progress Note PATIENT SERVICES REP Endocrinology - Medicine Today's Date: 10/27/2024 Admit [...] Diet Diabetic/ Calorie Controlled; Carb Counting 60g/meal 5939-4225 kcal Steroids: none Infusions: dextrose, 25 mL/hr, [...] private room post cath High risk for STAFF PSYCHOLOGIST remains unchanged Recommend avoiding albuterol transition to [...] 2/3 @ 2:30 Dr. Mario Alberto Alvarez [facility] cardiology will continue to follow. Case discussed with attending, Dr. Contreras Plan was communicated to primary team /and the [place] 3 team IMPROVE SCORE: . Stepdown / ICU / CCU Stay: 1-->Stepdown / ICU / CCU stay Age > 60 yrs: 1--> Age > 60 years IMPROVE SCORE: 2 DVT PPX: Heparin drip CODE STATUS:full code HCP/Decision maker: Patient Telemetry:Yes This note was prepared using voice recognition software and direct typing. Please excuse inadvertent passenger booking clerk or typing errors, or uncorrected word substitutions. [...] system. Dr. Pushpa Gallegos was notified by Cameron text at 12:36 PM. Imaging Studies XR [...] effusions unchanged. Interpreted by: Mitchell Ascencio DO Coper Hand I personally reviewed the images and the [...] Sample left with bedside RN. ACCESS: 6 English Aedd-P-Xdgjnqlz closed needle/catheter system REQUESTING PRACTITIONER: Cheryl Blue [...] traversingadjacent organs or vascular structures. A 6 English Ltii-I-Emrexbcz closed needle/catheter system was utilized for access. [...] adjacent organs or vascular structures. A 6 English Orhq-T-Qehkolkx closed needle/catheter system was utilized for access. [...] system. Dr. Pushpa Gallegos was notified by Cameron text at 12:36 PM. XR Chest 1 [...] atelectasis, respectively. Interpreted by: Prem Coffman MD Coper Hand I personally reviewed the images and the [...] remain n.p.o. at midnight for hopefully for [facility] and [facility] spoke with nephrology Dr. Perez who is in agreement to have the patient proceed with cath in a.m. given no availability today Continue heparin gtt per ACS protocol Continue ASA 81 mg daily Continue atorvastatin 80 mg daily Continue Toprol-XL 75 mg p.o. daily Continuous telemetry monitoring Patient will need a private room post cath High risk for STAFF PSYCHOLOGIST remains unchanged ALISA on CKD Creatinine peak [...] 2/3 @ 2:30 Dr. Mario Alberto Alvarez [facility] cardiology will continue to follow. Case discussed with attending, Dr. Contreras Plan was communicated to primary team dr Neymar Mcfarland /and the [place] 3 team IMPROVE SCORE: Stepdown / ICU / CCU Stay: 1-->Stepdown / ICU / CCU stay Age > 60 yrs: 1--> Age > 60 years IMPROVE SCORE: 2 DVT PPX: SC Heparin CODE STATUS:full code HCP/Decision maker: Patient Telemetry:Yes This note was prepared using voice recognition software and direct typing. Please excuse inadvertent passenger booking clerk or typing errors, or uncorrected word substitutions. [...] system. Dr. Pushpa Gallegos was notified by Cameron text at 12:36 PM. Imaging Studies XR [...] effusions unchanged. Interpreted by: Mitchell Ascencio DO Coper Hand I personally reviewed the images and the [...] Sample left with bedside RN. ACCESS: 6 English Rbpq-N-Dfteyljx closed needle/catheter system REQUESTING PRACTITIONER: Cheryl Blue [...] traversingadjacent organs or vascular structures. A 6 English Kujq-S-Ryeznong closed needle/catheter system was utilized for access. [...] adjacent organs or vascular structures. A 6 English Plyg-Q-Xknpeejf closed needle/catheter system was utilized for access. [...] system. Dr. Pushpa Gallegos was notified by Cameron text at 12:36 PM. XR Chest 1 [...] atelectasis, respectively. Interpreted by: Prem Coffman MD Coper Hand I personally reviewed the images and the [...] Lateral leads Confirmed by DO Ladd Kyla ([id number]) on 10/25/2024 8:09:06 PM Medications Medications Scheduled [...] level of independence with functional mobility. Current [facility] Basic Mobility Score: 20 Rehab Plan [...] Level Achieved Ambulation Ambulation Distance (Feet) 15 [facility] Basic Mobility Turning from your back [...] Climbing 3-5 steps with a railing? 3 [facility] Basic Mobility Score 20 Therapy Assessment/Plan [...] d/t HTN + DM (neph Dr in [place]), admit as xfer fromOSH with dyspnea (COVID+) [...] hypocalcemia and secondary hyperparathyroidism. His risk of STAFF PSYCHOLOGIST remains unchanged Subjective HPI Vipul remains with [...] 10/26/2024 9:39 AM EST Endocrinology Progress Note PATIENT SERVICES REP Endocrinology - Medicine Today's Date: 10/26/2024 Admit [...] team patient will be going to the Muffle Worker. Currently n.p.o. Addendum: Notified by team, cath [...] Unknown) Resolved Problems: Assessment & Plan Neymar iWlder is a 79 y.o. male with PMHx of insulin-dependent T2DM, HFrEF, CKD, HTN, who presented with to outside hospital with URI symptoms, transferred to [facility] for management of DKA and ICU, stable [...] patient has been n.p.o. at midnight pending Muffle Worker for several days resuming a diet in [...] Subjective Overnight: Patient did not go to Muffle Worker yesterday, stable overnight no acute events Today: Patient seen and examined at this morning. He is on supplemental oxygen. He states he is feeling well and awaits Muffle Worker. Patient continues to be very positive and [...] gap. Patient remains on heparin drippending cardiac laboratory associate. Patient requires intermittent doses of IV Lasix for pulmonary edema and work of breathing. Donavon Rodgers MD PGY-1 Internal Medicine Cameron Text Preferred Associated attestation - Neymar Mcfarland [...] [facility] and [facility] spoke with nephrology Dr. Ketn who is in agreement to have the [...] 2/3 @ 2:30 Dr. Mario Alberto Alvarez [facility] cardiology will continue to follow. Case discussed with attending, Dr. Contreras Plan was communicated to primary team dr Neymar Mcfarland /and the [place] 3 team IMPROVE SCORE: Stepdown / ICU / CCU Stay: 1-->Stepdown / ICU / CCU stay Age > 60 yrs: 1--> Age > 60 years IMPROVE SCORE: 2 DVT PPX: Heparin drip CODE STATUS:full code HCP/Decision maker: Patient Telemetry:Yes This note was prepared using voice recognition software and direct typing. Please excuse inadvertent passenger booking clerk or typing errors, or uncorrected word substitutions. [...] for comparison in our system. Dr. Pushpa Galelgos was notified by Cameron text at 12:36 PM. Imaging Studies XR [...] Trace bilateral pleural effusions unchanged. Interpreted by: Mithcell Ascencio DO Coper Hand I personally reviewed the images and the [...] Sample left with bedside RN. ACCESS: 6 English Ispf-N-Wcoelean closed needle/catheter system REQUESTING PRACTITIONER: Cheryl Blue [...] traversingadjacent organs or vascular structures. A 6 English Dlea-O-Atzzijxi closed needle/catheter system was utilized for access. [...] adjacent organs or vascular structures. A 6 English Aiwe-A-Wvgafooq closed needle/catheter system was utilized for access. [...] system. Dr. Pushpa Gallegos was notified by Cameron text at 12:36 PM. XR Chest 1 [...] atelectasis, respectively. Interpreted by: Prem Coffman MD Coper Hand I personally reviewed the images and the [...] and diabetic kidney disease (he follows with radiologic therapist in [place]), who presented intially to OSH with URI [...] with falling creatinine still greater than 25% scientific laboratory supervisor providers are well aware of this condition [...] long time and has follow-up with a radiologic therapist in [place]. He feels very confident about his function [...] outside hospital with URI symptoms, transferred to [facility] for management of DKA and ICU, stable [...] patient has been n.p.o. at midnight pending Muffle Worker for several days resuming a diet in [...] Subjective Overnight: Patient did not go to Muffle Worker yesterday, stable overnight no acute events Today: Patient seen and examined at this morning. He is on supplemental oxygen. He states he is feeling well and awaits Muffle Worker. Patient has been very patient and awaits Muffle Worker Objective Last Vitals Pulse:77,Resp:16,BP:(!) 145/70,SpO2:(!) 91 %,Weight:65.9 [...] gap. Patient remains on heparin drippending cardiac laboratory associate. Patient requires intermittent doses of IV Lasix for pulmonary edema and work of breathing. Donavon Rodgers MD PGY-1 Internal Medicine Cameron Text Preferred Associated attestation - Neymar Mcfarland [...] fluid overload patient has not gone to Muffle Worker yet We will keep fingersticks every 4 [...] (Order- Specific), Last Rate: 15 Units/kg/hr (10/24/24 4936) Discharge Planning: Depending on disposition, was on [...] arrange for cardiology follow-up prior to discharge [facility] cardiology will continue to follow. Case discussed with attending, Dr. Contreras Plan was communicated to primary team dr Neymar Mcfarland /and the [place] 3 team IMPROVE SCORE Stepdown / ICU / CCU Stay: 1-->Stepdown / ICU / CCU stay Age > 60 yrs: 1--> Age > 60 years IMPROVE SCORE: 2 DVT PPX: Heparin drip CODE STATUS:full code HCP/Decision maker: Patient Telemetry:Yes This note was prepared using voice recognition software and direct typing. Please excuse inadvertent passenger booking clerk or typing errors, or uncorrected word substitutions. [...] system. Dr. Pushpa Gallegos was notified by Cameron text at 12:36 PM. Imaging Studies XR [...] effusions unchanged. Interpreted by: Mitchell Ascencio DO Coper Hand I personally reviewed the images and the [...] Sample left with bedside RN. ACCESS: 6 English Egtk-B-Ingdhndw closed needle/catheter system REQUESTING PRACTITIONER: Cheryl Blue [...] traversingadjacent organs or vascular structures. A 6 English Mfts-B-Ahunzubb closed needle/catheter system was utilized for access. [...] adjacent organs or vascular structures. A 6 English Asvs-X-Pbaakhfr closed needle/catheter system was utilized for access. [...] procedure was performed and dictated by CHELLY Gaitna Echocardiogram (TTE) Comprehensive (Contrast PRN) Result Date: [...] system. Dr. Pushpa Gallegos was notified by Cameron text at 12:36 PM. XR Chest 1 [...] atelectasis, respectively. Interpreted by: Prem Coffman MD Coper Hand I personally reviewed the images and the [...] outside hospital with URI symptoms, transferred to [facility] for management of DKA and ICU, stable [...] the patient will be taken to the Muffle Worker and will remain n.p.o. until the procedure is over. The patient had increasing oxygen requirements overnight and repeat chest x-ray showed pulmonary edema. We discussed these findings with the Muffle Worker as they would like to give gentle [...] insulin. The patient has been n.p.o. pending Muffle Worker and there is concern that he may [...] gap. Patient remains on heparin drippending cardiac laboratory associate. Donavon Rodgers MD PGY-1 Internal Medicine Cameron Text Preferred Associated attestation - Neymar Mcfarland [...] and diabetic kidney disease (he follows with radiologic therapist in [place]), who presented intially to OSH with URI [...] with slight improvement to 4.3 Plan for laboratory associate now pushed a day or two Lázaro Score slightly improving with falling creatinine scientific laboratory supervisor providers are well aware of this condition [...] long time and has follow-up with a radiologic therapist in [place]. He feels very confident about his function [...] found for: TACROLIMUS No results found for: [id number] , TOTVOL , CRCLR , PERIOD No [...] 10/21 2104 Sincerely, Marty Kent MD, [employer] S[employer] Chronic Kidney Disease [facility] Attending Internal Medicine Physician, Partner, [facility] Continuous Medication Ordered Dose/Rate, [...] arrange for cardiology follow-up prior to discharge [facility] cardiology will continue to follow. Case discussed with attending, Dr. Contreras Plan was communicated to primary team dr Neymar Mcfarland /and the [place] 3 team IMPROVE SCORE: Stepdown / ICU / CCU Stay: 1-->Stepdown / ICU / CCU stay Age > 60 yrs: 1--> Age > 60 years IMPROVE SCORE: 2 DVT PPX: Heparin drip CODE STATUS:full code HCP/Decision maker: Patient Telemetry:Yes This note was prepared using voice recognition software and direct typing. Please excuse inadvertent passenger booking clerk or typing errors, or uncorrected word substitutions. [...] system. Dr. Pushpa Gallegos was notified by Cameron text at 12:36 PM. Imaging Studies XR [...] effusions unchanged. Interpreted by: Mitchell Ascencio DO Coper Hand I personally reviewed the images and the [...] Sample left with bedside RN. ACCESS: 6 English Ggah-N-Vsneyllt closed needle/catheter system REQUESTING PRACTITIONER: Cheryl Blue [...] traversingadjacent organs or vascular structures. A 6 English Tkmt-B-Mvjkxvkz closed needle/catheter system was utilized for access. [...] adjacent organs or vascular structures. A 6 English Wkme-M-Bxqngrqj closed needle/catheter system was utilized for access. [...] system. Dr. Pushpa Gallegos was notified by Cameron text at 12:36 PM. XR Chest 1 [...] atelectasis, respectively. Interpreted by: Prem Coffman MD Coper Hand I personally reviewed the images and the [...] QT has lengthened Confirmed by MD Alex, [facility] ([id number]) on 10/22/2024 7:57:16 AM Medications Medications [...] outside hospital with URI symptoms, transferred to [facility] for management of DKA and ICU, stable [...] gap. Patient remains on heparin drippending cardiac laboratory associate. Donavon Rodgers MD PGY-1 Internal Medicine Cameron Text Preferred Associated attestation - Neymar Mcfarland [...] (he follows with Dr Henrik Bird in [place]), who presented intially to OSH with URI [...] with slight improvement to 4.3 Plan for laboratory associate today. Lázaro Score with 100cc of contrast: [...] long time and has follow-up with a radiologic therapist in [place]. He feels very confident about his function [...] found for: TACROLIMUS No results found for: [id number] , TOTVOL , CRCLR , PERIOD No [...] 10/21 2105 Sincerely, Marty Kent MD, [employer] S[employer] Chronic Kidney Disease [facility] Attending Internal Medicine Physician, Partner, [facility] Continuous Medication Ordered Dose/Rate, Route, [...] arrange for cardiology follow-up prior to discharge [facility] cardiology will continue to follow. Case discussed [...] software and direct typing. Please excuse inadvertent passenger booking clerk or typing errors, or uncorrected word substitutions. [...] system. Dr. Pushpa Gallegos was notified by Cameron text at 12:36 PM. Imaging Studies XR [...] effusions unchanged. Interpreted by: Mitchell Ascencio DO Coper Hand I personally reviewed the images and the [...] Sample left with bedside RN. ACCESS: 6 English Nggd-Z-Wjmjdwrb closed needle/catheter system REQUESTING PRACTITIONER: Cheryl Blue [...] traversingadjacent organs or vascular structures. A 6 English Tlgd-W-Vutvjphz closed needle/catheter system was utilized for access. [...] adjacent organs or vascular structures. A 6 English Oitu-W-Xzxuvusx closed needle/catheter system was utilized for access. [...] system. Dr. Pushpa Gallegos was notified by Cameron text at 12:36 PM. XR Chest 1 [...] atelectasis, respectively. Interpreted by: Prem Coffman MD Coper Hand I personally reviewed the images and the [...] QT has lengthened Confirmed by MD Alex, [facility] ([facility]) on 10/22/2024 7:57:16 AM Medications Medications [...] 10/21/24 0803 10/21/24 0309 10/20/24 0215 10/19/24 1569 SODIUM mmol/L -- 145 -- -- 140 [...] outside hospital with URI symptoms, transferred to [facility] for management of DKA and ICU, stable [...] telemetry -- Cardiology will bring patient for laboratory associate tomorrow for RHC and LHC, NPO at [...] gap. Patient remains on heparin drippending cardiac laboratory associate. Donavon Rodgers MD PGY-1 Internal Medicine Cameron Text Preferred Associated attestation - Neymar Mcfarland [...] Diet Diabetic/ Calorie Controlled; Carb Counting 60g/meal 0134-7948 kcal Steroids: None. Drips: None. History Diabetes [...] Diet Diabetic/ Calorie Controlled; Carb Counting 60g/meal 6252-2808 kcal Steroids: None. Drips: None. History Diabetes [...] outside hospital with URI symptoms, transferred to [facility] for management of DKA and ICU, stable [...] Antonio Hameed PGY1, Internal Medicine Available on Cameron Text 10/21/2024 10:39 AM Associated attestation - [...] MD (Nina) MPH Chief, Department of Medicine [phone] * Linda Rivera PA-C - 10/21/2024 6:28 AM EST Images from the original note were not included. [facility] Cardiology Transfer Service Progress Note Chief Complaint: [...] outpatient cardiology follow up prior to discharge. [facility] cardiology will continue to follow. Case discussed [...] inpatient Arrived From Hospital General Information Comments [facility] Initial Information How to be Addressed Vipul Source of Information patient;family;health record Stated Reason for Admission Covid, Heart, High Sugar Levels Patient Aware of Diagnosis yes Limitations on Visitors/Phone Calls none Temporary Family Living Arrangements (While Hospitalized) none needed Adaptive Services not applicable Does the Patient Have a CT DNR [place] Bracelet or State DNR Form? no Clinical Trial not applicable Designated Caregiver for Discharge Coordination Do You Have a Designated Caregiver for Discharge? yes Designated Caregiver's Name Prem Wilder Caregiver's Relationship to Patient child development director's Caregiver's Address Same as the patient's [...] or living in a mcfp (including now)? N Food Insecurity Within the [...] of Pulmonary, Critical Care, and Sleep Medicine [address] [place] [address], [address], [place] [address] Critical Care Progress Note Assessment & Plan [...] system. Dr. Pushpa Gallegos was notified by Cameron text at 12:36 PM. GI: >Nutrition: Diet/Nutrition Received: consistent carb/diabetic diet Diet Diabetic/ Calorie Controlled; Carb Counting 60g/meal 8838-0609 kcal Renal: CKD 5, stable Monitor >Intake [...] if appropriate. This report was generated using Movellas Speaking dictation software. Although every attempt has [...] Principal Problem: DKA (diabetic ketoacidosis) ([facility]) (POA: Yes) Resolved Problems: Assessment [...] Diet Diabetic/ Calorie Controlled; Carb Counting 60g/meal 7638-3761 kcal Steroids: None. Drips: None. History Diabetes [...] from the original note were not included. [facility] CRITICAL CARE RESIDENT PROGRESS NOTE LOS: 2 CODE:: Code Status Procedures Full Code Subjective Hospital Course: This is a 79 yo male with PMHx of stage V CKD (has not been on hemodialysis follows with nephrologyin [place]), insulin-dependent diabetes, hypertension, HFrEF with acute decompensation [...] Principal Problem: DKA (diabetic ketoacidosis) ([facility]) (POA: Yes) Resolved Problems: Assessment Neymar Baum Meño 79 y.o. w/ PMHx of stage V CKD (has not been on hemodialysis follows with nephrology in [place]), insulin-dependent diabetes, hypertension admitted to ICU for [...] Diet Diabetic/ Calorie Controlled; Carb Counting 60g/meal 7928-1649 kcal NEPHROLOGY ALISA on stage III CKD [...] Tilley. Sign Lesly Luke MD Available on Cameron Text 10/20/2024 7:48 AM * Linda Rivera PA-C - 10/20/2024 6:40 AM EST Images from the original note were not included. [facility] Cardiology Transfer Service Progress Note Chief Complaint: [...] outpatient cardiology follow up prior to discharge. [facility] cardiology will continue to follow. Case discussed [...] been on hemodialysis follows with nephrology in [place]), insulin-dependent diabetes, hypertension admitted to ICU for [...] MD Donavon Amos MD PGY-1 Internal Medicine Cameron Text Preferred ICU Check-list Code: Code Status [...] Sample left with bedside RN. ACCESS: 6 English Mzoo-P-Wmkateau closed needle/catheter system REQUESTING PRACTITIONER: Cheryl Blue [...] traversingadjacent organs or vascular structures. A 6 English Jbzn-T-Vgrxxokj closed needle/catheter system was utilized for access. [...] adjacent organs or vascular structures. A 6 English Yfcw-T-Myuxgrkv closed needle/catheter system was utilized for access. [...] effusions unchanged. Interpreted by: Mitchell Ascencio DO Coper Hand DIET/NUTRITION: Diet/Nutrition Received: NPO Diet NPO; Meds Behavioral/Sedation scales: CAM-ICU Delirium Present: Negative Rea Agitation Sedation Scale (RASS) / Modified RASS: 0-->alert and calm Ventilator settings: Associated attestation - Kristopher Hickey MD - 10/19/2024 11:18 PM EST [facility] Attestation note: Kristopher Hickey MD Critical care [...] Pulmonary, Critical Care, and Sleep Medicine [address], [address], [place] [address] Critical Care Progress Note Assessment & Plan [...] system. Dr. Pushpa Gallegos was notified by Cameron text at 12:36 PM. GI: >Nutrition: Diet/Nutrition [...] if appropriate. This report was generated using Movellas Speaking dictation software. Although every attempt has been made by the provider to proofread this document, occasional misspellings and typographical errors may still be present. Sign: Kristopher Hickey MD 10/19/2024 9:56 AM * Linda Rivera PA-C - 10/19/2024 6:33 AM EST Images from the original note were not included. [facility] Cardiology Transfer Service Progress Note Chief Complaint: [...] outpatient cardiology follow up prior to discharge. [facility] cardiology will continue to follow. Case discussed [...] Pulmonary, Critical Care, and Sleep Medicine [address], [address], [place] [address] Critical Care Progress Note Assessment & Plan [...] There were discussions of HD with his radiologic therapist Dr. Pelon Smith Electrolyte monitoring Avoid nephrotoxins, monitor urine output Get nephrology on board given likely need for cardiac cath >Intake & Output No intake or output data in the 24 hours ending 10/18/24 5394 Endo: Glucommander protocol Gentle IV fluids given concern for volume overload Heme/Onc: On heparin drip for NSTEMI ID: No signs or symptoms of infection Monitor off antibiotics >Antibiotics: Drips: dextrose 5 % and sodium chloride 0.9 %, 10 mL/hr heparin (porcine) IV infusion - low dose protocol, 12 Units/kg/hr (Order- Specific), Last Rate: 12 Units/kg/hr (10/18/24 5127) insulin regular (HumuLIN-R) IV infusion - Glucommander, 0-100 Units/hr, Last Rate: 10 Units/hr (10/18/24 9588) Lines: Peripheral IV - Single Lumen (Adult) [...] if appropriate. This report was generated using Movell[employer] Speaking dictation software. Although every attempt has been made by the provider to proofread this document, occasional misspellings and typographical errors may still be present. Sign: Pushpa Gallegos MD 10/18/2024 7:54 AM documented in this encounter H&P Notes * Cheryl Blue MD - 10/18/2024 8:33 AM EST Images from the original note were not included. [facility] MICU H&P LOS: 0 CODE: Code Status Procedures Full Code Assessment and Plan Problem List Principal Problem: DKA (diabetic ketoacidosis) (HCC) (POA: Yes) Resolved Problems: Assessment Neymar Wilder 79 y.o. w/ PMHx of stage V CKD (has not been on hemodialysis follows with nephrology in [place]), insulin-dependent diabetes, hypertension admitted to ICU for [...] V CKD (with prior discussions with patient's radiologic therapist regarding possible initiation of HD) Plan by [...] CKD (there were discussions with patient's prior radiologic therapist Dr. Pelon Smith regarding HD) Initial BUN/creatinine [...] been on hemodialysis follows with nephrology in [place]), insulin-dependent diabetes, hypertension presented from outside hospital and transferred to [facility] for concerns of NSTEMI and DKA. Patient [...] atelectasis, respectively. Interpreted by: Prem Coffman MD Coper Hand I personally reviewed the images and the [...] Procedure(s): Bilateral thoracentesis Indications: Bilateral pleural effusion Forming Department End Finder: None Anesthesia: None Fluid: 850ml of clear [...] ESTAssociated Order(s): IP CONSULT TO NUTRITION SERVICES [facility] Nutrition Note Visit Type: initial assessment Reason [...] was initially admitted to ICU, transferred to [place] on 10/20, now on floor level of [...] lb 1.8 oz) Fluids: 1600ml based on FIXTURE BUILDER Method (or per MD/team) Estimated/Assessed Carbohydrates Needs: [...] with CAD, s/p IA 02/2024, transferred from [facility] with NSTEMI. 2. HFrEF with newly [...] H&P, physical assessment, and educated on cardiac Muffle Worker procedure was approximately 60 minutes The following information is collected for participation in the [employer] CATH/PCI Registry (ACCNCDR) and [...] assessed: No Indications and Presentation Indication(s) for laboratory associate visit: suspected CAD Chest pain symptom assessment: [...] DM II, HTN who was transferred from [facility] to on 10/18/24 with concern for [...] been on hemodialysis follows with nephrology in [place]), insulin-dependent diabetes, hypertension presented from outside hospital and transferred to [facility] for concerns of NSTEMI and DKA. Patient [...] found for: TACROLIMUS No results found for: [id number] , TOTVOL , CRCLR , PERIOD No [...] as written. Signed, Marty Kent MD, [employer] Potato Chip Sorter, CKD, [facility] Chief of Nephrology, [facility] * Tangela Reed PA-C - 10/19/2024 9:09 AM ESTAssociated Order(s): IP CONSULT TO ENDOCRINOLOGY Endocrinology Consult Note [facility] Endocrinology - Medicine Date of Consult: 10/19/2024 Patient's Primary Care Physician: No primary care provider on file. Physician Requesting Consult: Reason for Consultation: Diabetes Management Admit Date: 10/18/2024 5:10 AM Principal Problem: DKA (diabetic ketoacidosis) ([facility]) (POA: Yes) Resolved Problems: Addendum [...] Complaint Diabetes Management Subjective: [facility], interviewed over [...] from the original note were not included. [facility] CARDIOLOGY TRANSFER SERVICE Date of Consult: 10/18/2024 Patient's Primary Care Physician: No primary care provider on file. Physician Requesting Consult: Pushpa Gallegos MD Primary Vp Revenue Cycle: - Reason for Consultation: Shortness of Breath [...] monitor with RN Nesha Jacobsen RN 10/18/24 1918 * Kristian Angeles RN - 10/18/2024 12:07 [...] history of diabetes presents in transfer from [place] with the patient was found to be [...] from external provider, facility, or healthcare organization: [place] ED note History obtained from other source [...] to fluid overload. Adriel Funez RN 10/18/24 7848 * Adriel Funez RN - 10/18/2024 5:24 [...] legal medical record. Vickie Norris RN, CDS [phone] * Case Coordination-Payor Communication - Meme Jones [...] Continued Stay Review Date: 10/31/2024 Clinical Update: [facility] today, remains NPO Neymar remains on [...] arrived to the unit at 2000 from laboratory associate. Upon assessment pt is Aox4, NSR on [...] cath fluids. Heparin gtt infusing. Sent to laboratory associate for LHC.Strict isolation d/c. Oksana Zhang 10/31/2024 [...] 1830. On 10/18/2024, he was transferred to [facility] intensive care unit. He received treatment to DKA, acidosis and hyperglycemia improved on intravenous fluid and insulin therapy. Upon admission to [facility] NT-proBNP was found to have 70K and [...] clinically stable for transition. Plan is for [facility] today. At this time transition plan [...] from the original note were not included. [facility] Cardiology Transfer Service Plan of Care Note Pt noted to have ~20 beats of Vtach on monitor. Reportedly asymptomatic and hemodynamically stable during episode. Recommendations: -Aggressive electrolyte replacement with 2g IV Mag and 20 mg PO K+ -Lopressor 25 mg PO x1 with plan to increase Toprol-XL 100 mg daily tomorrow -No antiarrhythmic at this time -Pacer pads on -Tentatively planned for [facility] Tuesday, if VT persists contact laboratory associate sooner for consideration of more urgent catheterization [...] Burgess MD Internal Medicine PGY2 Available via Aupix 10/28/24 10:54 AM * Plan of Care [...] remained stable and we continue optimizing for Muffle Worker. Catheter most likely happen early next week. He was appreciated update and I answered all his questions to the best my ability. Donavon Rodgers MD PGY-1 Internal Medicine Cameron Text Preferred * Plan of Care - [...] Continues on 4L Oxymask. Safety maintained. Rin Anderosn 10/27/2024 6:28 AM * Plan of Care - Sarah Nielsen RN - 10/26/2024 6:54 PM EST Plan of Care Reviewed With: patient Outcome Evaluation: 7532-6241: Neymar was A&Ox4 and had no complaints [...] Summary: pending cardiac cath Patient is from [place]. Recommendation: dispo plan home with HC services [...] ability. Donavon Rodgers MD PGY-1 Internal Medicine Cameron Text Preferred * Plan of Care - Sirisha Adams RN - 10/26/2024 4:49 AM EST Progress: improving Outcome Evaluation: 1102-1077: Neymar remains alert and oriented *4. no shortness of breath. Continued on 4L oxymask, sating above goal. Continued on heparin drip. NPO since midnight for left and right heart cath today. slept between care. Sirisha Adams 10/26/2024 4:49 AM * Plan of Care - Olga Terrell RN - 10/25/2024 6:50 PM EST Plan of Care Reviewed With: patient Progress: improving Outcome Evaluation: 4521-4790. Pt alert and oriented *4. No reports [...] PM EST Patient set to go to laboratory associate tomorrow, has been made NPO at midnight. Called bed management to facilitate transfer of patient to [address] in a private room 2/2 COVID [...] update Donavon Rodgers MD PGY-1 Internal Medicine Cameron Text Preferred * Plan of Care - [...] Review Date: 10/25/2024 Clinical Update: NPO for laboratory associate today. Spot dose Lasix. Continues on heparin gtt while awaiting laboratory associate. Plan: #NSTEMI #Acute decompensated HFrEF (LVEF 28%) [...] with falling creatinine still greater than 25% carpenter/labor providers are well aware of this condition [...] Reviewed With: patient Progress: improving Outcome Evaluation: 0299-6572. Pt alert and oriented *4. No reports [...] for his father to go to the Muffle Worker today. He had increasing oxygen requirements overnight [...] ability. Donavon Rodgers MD PGY-1 Internal Medicine Cameron Text Preferred * Plan of Care - Sirisha Adams RN - 10/24/2024 6:44 AM EST Outcome Evaluation: 9014-1960: Neymar is alert and oriented *4. Denies [...] Terrell RN - 10/23/2024 6:57 PM EST [id number]. Pt alert and oriented *4. No reports [...] With: patient Progress: no change Outcome Evaluation: 9014-5316: No acute changes. Heparin gtt adjusted per [...] of Care Reviewed With: patient Outcome Evaluation: 5265-6645: In the beginning of the shift Nyemar was A&Ox4 and had no complaints of [...] ability. Donavon Rodgers MD PGY-1 Internal Medicine Cameron Text Preferred * Rehab Therapy Consults - [...] level of independence with functional mobility. Baseline [facility] Basic Mobility Score: 24 Current [facility] Basic Mobility Score: 20 Objective Data [...] outside hospital with URI symptoms, transferred to [facility] for management of DKA and ICU, stable [...] Progressive Mobility Level Achieved Transferring to Chair [facility] Basic Mobility Turning from your back [...] Climbing 3-5 steps with a railing? 3 [facility] Basic Mobility Score 20 Therapy Assessment/Plan [...] PT goal 1 Transfer Goal 1 (PT) [place] Level/Cues Needed (Transfer Goal 1, PT) modified independence Time Frame (Transfer Goal 1, PT) 2 weeks Activity/Assistive Device (Transfer Goal 1, PT) transfers, all;walker, rolling Gait Training Goal 1 (PT) Time Frame (Gait Training Goal 1, PT) 2 weeks [place] Level (Gait Training Goal 1, PT) modified independence Activity/Assistive Device (Gait Training Goal 1, PT) gait (walking locomotion);walker, rolling Distance (Gait Training Goal 1, PT) 300 feet Stairs Goal 1 (PT) [place] Level/Cues Needed (Stairs Goal 1, PT) supervision [...] of Care Reviewed With: patient Outcome Evaluation: 6259-7623: Neymar was A&Ox4 and had no complaints [...] Progress: no change Outcome Evaluation: Arrived from [facility] around 1600. Skin check complete with 2nd [...] person supports:Self and Family PCP: Updated in [place]. Added his preferred pharmacy as well. Anticipated [...] Continue Cierra Greenberg MC PGY-3 Internal Medicine [facility] Available on TigerText * Plan of Care [...] tonight. Donavon Rodgers MD PGY-1 Internal Medicine Cameron Text Preferred * Case Coordination-Payor Communication - Meme Jones - 10/19/2024 7:24 AM EST Per [facility] General Statutes Sec: [id number]: Notification of determination communicated within 2business days of receipt of all information necessary to complete the review. Please fax authorization determination to [phone] or call [phone] * Case Coordination-Payor Communication - Nathalia Liao RN - 10/19/2024 6:14 AM EST Type: (Inpt/Obs): Inpatient Date of Admission: 10/18/2024 Admitting Dx: DKA HPI: 79 y.o. w/ PMHx of stage V CKD (has not been on hemodialysis follows with nephrology in [place]), insulin-dependent diabetes, hypertension presented from outside hospital and transferred to [facility] for concerns of NSTEMI and DKA. Patient [...] V CKD (with prior discussions with patient's radiologic therapist regarding possible initiation of HD) Vitals: Pulse:86,Resp:20,BP:138/69,SpO2:92 [...] CKD (there were discussions with patient's prior radiologic therapist Dr. Pelon Smith regarding HD) Initial BUN/creatinine [...] OF CARE TEST ORDERABLES Performing Organization Address [facility] Phone Number HOSPITAL LAB See Below * (ABNORMAL) POCT Glucose, Fingerstick (11/01/2024 8:21 AM EST) POC Glucose 111(H) 65 - 99 mg/dL 11/01/2024 11:56 AM EST Blood specimen / Unknown 11/01/2024 8:21 AM EST 11/01/2024 11:56 AM EST Fuad Winter MD POINT OF CARE TEST ORDERABLES Performing Organization Address [facility] Number [facility] LAB See Below * (ABNORMAL) Phosphorus (Early AM) (11/01/2024 6:20 AM EST) Phosphorus 4.7(H) 2.7 - 4.5 mg/dL 11/01/2024 7:58 AM EST [facility] Blood (Plasma/Serum) 11/01/2024 6:20 AM EST 11/01/2024 6:57 AM EST Jonna Donis PA-C LAB BLOOD ORDERABL ES Performing Organization Address [facility] [place] [address], [place] [address] * MAGNESIUM (11/01/2024 6:20 AM EST) Magnesium 1.6 1.6 - 2.7 mg/dL 11/01/2024 7:58 AM EST [facility] Blood (Plasma/Serum) 11/01/2024 6:20 AM EST 11/01/2024 6:57 AM EST Jonna Donis PA-C LAB BLOOD ORDERABL ES Performing Organization Address [facility] [place] [address], [place] [address] * (ABNORMAL) COMPLETE BLOOD COUNT, WITHOUT DIFFERENTIAL (11/01/2024 6:20 AM EST) [facility] White Blood Cell Count 9.1 4.0 - 11.0 Thou/uL 11/01/2024 7:10 AM [facility] Platelet Count 261 150 - 450 Thou/uL 11/01/2024 7:10 AM [facility] Hemoglobin 9.2(L) 13.0 - 17.7 g/dL 11/01/2024 7:10 AM [facility] Hematocrit 29.7(L) 39.0 - 54.0 % 11/01/2024 7:10 AM [facility] Red Blood Cell Count 3.00(L) 4.50 - 6.20 Mil/uL 11/01/2024 7:10 AM [facility] MCV 99 80 - 100 fL 11/01/2024 7:10 AM [facility] MCH 30.7 27.0 - 31.0 pg 11/01/2024 7:10 AM [facility] MCHC 31.0 30.0 - 36.0 g/dL 11/01/2024 7:10 AM [facility] RDW 16.2(H) 11.5 - 14.5 % 11/01/2024 7:10 AM [facility] MPV 11.4 7.5 - 12.5 fL 11/01/2024 7:10 AM [facility] Blood Blood specimen / Unknown 11/01/2024 6:20 AM EST 11/01/2024 6:57 AM EST Jonna Donis PA-C [place] [address], [place] [address] * (ABNORMAL) BASIC METABOLIC PANEL (11/01/2024 6:20 AM EST) [facility] Glucose 92 65 - 99 mg/dL 11/01/2024 7:58 AM [facility] Comment:Fasting: <100 mg/dL, Non-Fasting: <200 mg/dL (ADA 2004) Blood Urea Nitrogen (BUN) 41(H) 8 - 21 mg/dL 11/01/2024 7:58 AM [facility] Creatinine 4.5(H) 0.5 - 1.3 mg/dL 11/01/2024 7:58 AM [facility] eGFR 13(L) >59 11/01/2024 7:58 AM [facility] Comment:CKD-EPI (2020) in mL /min/1.73 sq meters. Sodium 140 136 - 145 mmol/L 11/01/2024 7:58 AM [facility] Potassium 4.8 3.4 - 5.3 mmol/L 11/01/2024 7:58 AM [facility] Chloride 104 98 - 107 mmol/L 11/01/2024 7:58 AM [facility] CO2 22 22 - 33 mmol/L 11/01/2024 7:58 AM [facility] Anion Gap 14 7 - 17 11/01/2024 7:58 AM [facility] Calcium 9.3 8.7 - 10.5 mg/dL 11/01/2024 7:58 AM [facility] BUN/Creatinine Ratio 9(L) 10.0 - 25.0 Ratio 11/01/2024 7:58 AM [facility] Blood (Plasma/Serum) 11/01/2024 6:20 AM EST 11/01/2024 6:57 AM EST Jonna Donis PA-C [place] [address], [place] [address] * (ABNORMAL) POCT Glucose, Fingerstick (11/01/2024 1:58 [...] from the original result were not included. [facility] [place] [facility] - Cardiac Catheterization Laboratory PATIENT DEMOGRAPHIC INFORMATION Name: Neymar Baum Meño : 1945 79 y.o. Sex: male Gender: male Procedure Date: 10/31/2024 PROCEDURE DETAILS Tool Or Die Drawing Checker: Calixto Ureña MD Fellow: None Forming Department End Finder(s): none Indications for Procedure: ACS, drop in EF Referring Physician: Neymar Mcfarland Referring Vp Revenue Cycle: PCP: Diaz Akers MD Procedure(s): Procedures: ??* [...] this patient that I request from a [facility] PA/PATIENT SERVICES REP/fellow/staff member. Calixto Ureña MD [facility] [place] 10/31/2024 ??6:57 PM Coronary Findings Diagnostic Dominance: [...] Glucose, Fingerstick (10/31/2024 4:45 PM EST) [facility] POC Glucose 74 65 - 99 mg/dL 10/31/2024 4:46 PM EST Blood specimen / Unknown 10/31/2024 4:45 PM EST 10/31/2024 4:46 PM EST Fuad Winter MD POINT OF CARE TEST ORDERABLES HOSPITAL LAB See Below * Heparin Assay (Anti Xa) (10/31/2024 3:28 PM EST) [facility] Anti Xa 0.36 IU/mL 10/31/2024 4:07 PM EST [facility] Comment: (NOTE) Heparin Thromboembolic/Standard/Full Dose Protocol: [...] MD LAB BLOOD ORDERABLES Performing Organization Address [facility] [place] [address], [place] [address] * POCT Glucose, Fingerstick (10/31/2024 12:04 PM EST) POC Glucose 92 65 - 99 mg/dL 10/31/2024 12:21 PM EST Blood specimen / Unknown 10/31/2024 12:04 PM EST 10/31/2024 12:21 PM EST Fuad Winter MD POINT OF CARE TEST ORDERABLES Performing Organization Address [facility] Phone Number [facility] LAB See Below * POCT Glucose, Fingerstick (10/31/2024 8:13 AM EST) POC Glucose 84 65 - 99 mg/dL 10/31/2024 8:15 AM EST Blood specimen / Unknown 10/31/2024 8:13 AM EST 10/31/2024 8:15 AM EST Fuad Winter MD POINT OF CARE TEST ORDERABLES Performing Organization Address [facility] Phone Number HOSPITAL LAB See Below * (ABNORMAL) High Sensitivity Troponin T (10/31/2024 7:16 AM EST) [facility] High Sensitivity Troponin T 396(HH) <23 ng/L 10/31/2024 9:15 AM EST [facility] Delta (Change) NO PREVIOUS RESULT <3 10/31/2024 9:15 AM EST [facility] Plasma/Serum 10/31/2024 7:16 AM EST 10/31/2024 7:47 AM EST Madhav Ryan MD LAB BLOOD ORDERABLES Performing Organization Address City/[facility]/[place] [address], [place] [address] * TSH, HIGHLY SENSITIVE (10/31/2024 7:16 AM EST) [facility] TSH, Highly Sensitive 2.06 0.27 - 4.20 mIU/L 10/31/2024 9:15 AM EST [facility] Plasma/Serum 10/31/2024 7:16 AM EST 10/31/2024 7:47 AM EST Madhav Ryan MD LAB BLOOD ORDERABLES [facility] [address] [place] [address], [place] [address] * Heparin Assay (Anti Xa) (10/31/2024 7:16 AM EST) [facility] Anti Xa 0.54 IU/mL 10/31/2024 8:07 AM [facility] Comment: (NOTE) Heparin Thromboembolic/Standard/Full Dose Protocol: [...] LAB BLOOD ORDERAB LES Performing Organization Address [facility] [place] [address], [facility] [address] [place] [address] * (ABNORMAL) Phosphorus (Early AM) (10/31/2024 7:16 AM EST) Phosphorus 4.7(H) 2.7 - 4.5 mg/dL 10/31/2024 8:55 AM EST [facility] Blood (Plasma/Serum) 10/31/2024 7:16 AM EST 10/31/2024 7:47 AM EST Jonna Donis PA-C LAB BLOOD ORDERABL ES Performing Organization Address City/[facility] [place] [address], [place] [address] * MAGNESIUM (10/31/2024 7:16 AM EST) Pathologist [facility] Magnesium 1.7 1.6 - 2.7 mg/dL 10/31/2024 8:55 AM [facility] Blood (Plasma/Serum) 10/31/2024 7:16 AM EST 10/31/2024 7:47 AM EST Jonna Giraldo PEX Card PA-C LAB BLOOD ORDERABL ES Performing Organization Address [facility] [place] [address], [place] [address] * (ABNORMAL) COMPLETE BLOOD COUNT, WITHOUT DIFFERENTIAL (10/31/2024 7:16 AM EST) [facility] White Blood Cell Count 8.9 4.0 - 11.0 Thou/uL 10/31/2024 8:14 AM [facility] Platelet Count 289 150 - 450 Thou/uL 10/31/2024 8:14 AM [facility] Hemoglobin 9.6(L) 13.0 - 17.7 g/dL 10/31/2024 8:14 AM [facility] Hematocrit 31.4(L) 39.0 - 54.0 % 10/31/2024 8:14 AM [facility] Red Blood Cell Count 3.13(L) 4.50 - 6.20 Mil/uL 10/31/2024 8:14 AM [facility] MCV 100 80 - 100 fL 10/31/2024 8:14 AM [facility] MCH 30.7 27.0 - 31.0 pg 10/31/2024 8:14 AM [facility] MCHC 30.6 30.0 - 36.0 g/dL 10/31/2024 8:14 AM [facility] RDW 16.5(H) 11.5 - 14.5 % 10/31/2024 8:14 AM [facility] MPV 11.3 7.5 - 12.5 fL 10/31/2024 8:14 AM [facility] Blood Blood specimen / Unknown 10/31/2024 7:16 AM EST 10/31/2024 7:47 AM EST Jonna Donis PA-C [place] [address], [place] [address] * (ABNORMAL) BASIC METABOLIC PANEL (10/31/2024 7:16 AM EST) Glucose 82 65 - 99 mg/dL 10/31/2024 8:55 AM [facility] Comment:Fasting: <100 mg/dL, Non-Fasting: <200 mg/dL (ADA 2005) Blood Urea Nitrogen (BUN) 40(H) 8 - 21 mg/dL 10/31/2024 8:55 AM [facility] Creatinine 4.6(H) 0.5 - 1.3 mg/dL 10/31/2024 8:55 AM [facility] eGFR 12(L) >59 10/31/2024 8:55 AM [facility] Comment:CKD-EPI (2020) in mL /min/1.73 sq meters. Sodium 144 136 - 145 mmol/L 10/31/2024 8:55 AM [facility] Potassium 4.7 3.4 - 5.3 mmol/L 10/31/2024 8:55 AM [facility] Chloride 104 98 - 107 mmol/L 10/31/2024 8:55 AM [facility] CO2 24 22 - 33 mmol/L 10/31/2024 8:55 AM [facility] Anion Gap 16 7 - 17 10/31/2024 8:55 AM [facility] Calcium 8.8 8.7 - 10.5 mg/dL 10/31/2024 8:55 AM [facility] BUN/Creatinine Ratio 9(L) 10.0 - 25.0 Ratio 10/31/2024 8:55 AM EST [facility] Blood (Plasma/Serum) 10/31/2024 7:16 AM EST 10/31/2024 7:47 AM EST Jonna Donis PA-C LAB BLOOD ORDERABL ES Performing Organization Address [facility]/[place] [address], [place] [address] * POCT Glucose, Fingerstick (10/31/2024 2:18 AM EST) POC Glucose 88 65 - 99 mg/dL 10/31/2024 2:20 AM EST Blood specimen / Unknown 10/31/2024 2:18 AM EST 10/31/2024 2:20 AM EST Fuad Winter MD POINT OF CARE TEST ORDERABLES Performing Organization Address City/[facility]/ZIP Co de Phone Number [facility] LAB See Below * (ABNORMAL) POCT Glucose, [...] 4:24 PM EST 10/30/2024 4:25 PM EST Faud Winter MD POINT OF CARE TEST ORDERABLES Performing Organization Address [facility] LAB See Below * POCT Glucose, Fingerstick (10/30/2024 2:00 PM EST) POC Glucose 99 65 - 99 mg/dL 10/30/2024 2:04 PM EST Blood specimen / Unknown 10/30/2024 2:00 PM EST 10/30/2024 2:04 PM EST Fuad Winter MD POINT OF CARE TEST ORDERABLES Performing Organization Address [facility] LAB See Below * POCT Glucose, Fingerstick (10/30/2024 12:35 PM EST) POC Glucose 99 65 - 99 mg/dL 10/30/2024 12:36 PM EST Blood specimen / Unknown 10/30/2024 12:35 PM EST 10/30/2024 12:36 PM EST Fuad Winter MD POINT OF CARE TEST ORDERABLES Performing Organization Address [facility] LAB See Below * POCT Glucose, Fingerstick (10/30/2024 8:43 AM EST) POC Glucose 95 65 - 99 mg/dL 10/30/2024 8:44 AM EST Blood specimen / Unknown 10/30/2024 8:43 AM EST 10/30/2024 8:44 AM EST Fuad Winter MD POINT OF CARE TEST ORDERABLES Performing Organization Address [facility] LAB See Below * Heparin Assay (Anti Xa) (10/30/2024 7:09 AM EST) Anti Xa 0.50 IU/mL 10/30/2024 8:13 AM EST [facility] Comment: (NOTE) Heparin Thromboembolic/Standard/Full Dose Protocol: [...] LAB BLOOD ORDERAB LES Performing Organization Address [facility] [place] [address], [place] [address] * (ABNORMAL) Phosphorus (Early AM) (10/30/2024 7:09 AM EST) Phosphorus 5.1(H) 2.7 - 4.5 mg/dL 10/30/2024 8:47 AM EST [facility] Blood (Plasma/Serum) 10/30/2024 7:09 AM EST 10/30/2024 7:54 AM EST Jonna Donis PA-C LAB BLOOD ORDERABL ES Performing Organization Address [facility] [place] [address], [place] [address] * MAGNESIUM (10/30/2024 7:09 AM EST) Magnesium 1.7 1.6 - 2.7 mg/dL 10/30/2024 8:47 AM EST [facility] Blood (Plasma/Serum) 10/30/2024 7:09 AM EST 10/30/2024 7:54 AM EST Jonna Donis PA-C LAB BLOOD ORDERABL ES Performing Organization Address [facility] [place] [address], [place] [address] * (ABNORMAL) COMPLETE BLOOD COUNT, WITHOUT DIFFERENTIAL (10/30/2024 7:09 AM EST) White Blood Cell Count 9.3 4.0 - 11.0 Thou/uL 10/30/2024 8:20 AM EST [facility] Platelet Count 304 150 - 450 Thou/uL 10/30/2024 8:20 AM [facility] Hemoglobin 9.3(L) 13.0 - 17.7 g/dL 10/30/2024 8:20 AM [facility] Hematocrit 30.3(L) 39.0 - 54.0 % 10/30/2024 8:20 AM [facility] Red Blood Cell Count 2.99(L) 4.50 - 6.20 Mil/uL 10/30/2024 8:20 AM [facility] MCV 101(H) 80 - 100 fL 10/30/2024 8:20 AM [facility] MCH 31.1(H) 27.0 - 31.0 pg 10/30/2024 8:20 AM [facility] MCHC 30.7 30.0 - 36.0 g/dL 10/30/2024 8:20 AM [facility] RDW 16.8(H) 11.5 - 14.5 % 10/30/2024 8:20 AM [facility] MPV 11.1 7.5 - 12.5 fL 10/30/2024 8:20 AM [facility] Blood Blood specimen / Unknown 10/30/2024 7:09 AM EST 10/30/2024 7:54 AM EST Jonna Donis PA-C [place] [address], [place] [address] * (ABNORMAL) BASIC METABOLIC PANEL (10/30/2024 7:09 AM EST) Glucose 80 65 - 99 mg/dL 10/30/2024 8:47 AM [facility] Comment:Fasting: <100 mg/dL, Non-Fasting: <200 mg/dL (ADA 2005) Blood Urea Nitrogen (BUN) 40(H) 8 - 21 mg/dL 10/30/2024 8:47 AM [facility] Creatinine 4.3(H) 0.5 - 1.3 mg/dL 10/30/2024 8:47 AM [facility] eGFR 13(L) >59 10/30/2024 8:47 AM [facility] Comment:CKD-EPI (2020) in mL /min/1.73 sq meters. Sodium 142 136 - 145 mmol/L 10/30/2024 8:47 AM [facility] Potassium 4.5 3.4 - 5.3 mmol/L 10/30/2024 8:47 AM [facility] Chloride 101 98 - 107 mmol/L 10/30/2024 8:47 AM [facility] CO2 27 22 - 33 mmol/L 10/30/2024 8:47 AM [facility] Anion Gap 14 7 - 17 10/30/2024 8:47 AM [facility] Calcium 9.2 8.7 - 10.5 mg/dL 10/30/2024 8:47 AM [facility] BUN/Creatinine Ratio 9(L) 10.0 - 25.0 Ratio 10/30/2024 8:47 AM [facility] Blood (Plasma/Serum) 10/30/2024 7:09 AM EST 10/30/2024 7:54 AM EST Jonna Donis PA-C [place] [address], [place] [address] * POCT Glucose, Fingerstick (10/30/2024 6:47 AM [...] OF CARE TEST ORDERABLES Performing Organization Address [facility] LAB See Below * (ABNORMAL) POCT Glucose, Fingerstick (10/29/2024 9:16 PM EST) POC Glucose 138(H) 65 - 99 mg/dL 10/29/2024 9:16 PM EST Blood specimen / Unknown 10/29/2024 9:16 PM EST 10/29/2024 9:17 PM EST Fuad Winter MD POINT OF CARE TEST ORDERABLES Performing Organization Address [facility] LAB See Below * (ABNORMAL) POCT Glucose, Fingerstick (10/29/2024 4:32 PM EST) POC Glucose 187(H) 65 - 99 mg/dL 10/29/2024 4:33 PM EST Blood specimen / Unknown 10/29/2024 4:32 PM EST 10/29/2024 4:33 PM EST Fuad Winter MD POINT OF CARE TEST ORDERABLES Performing Organization Address [facility] LAB See Below * (ABNORMAL) POCT Glucose, Fingerstick (10/29/2024 12:54 PM EST) POC Glucose 162(H) 65 - 99 mg/dL 10/29/2024 12:55 PM EST Blood specimen / Unknown 10/29/2024 12:54 PM EST 10/29/2024 12:55 PM EST Fuad Winter MD POINT OF CARE TEST ORDERABLES Performing Organization Address [facility] LAB See Below * (ABNORMAL) POCT Glucose, Fingerstick (10/29/2024 7:51 AM EST) POC Glucose 107(H) 65 - 99 mg/dL 10/29/2024 7:53 AM EST Blood specimen / Unknown 10/29/2024 7:51 AM EST 10/29/2024 7:52 AM EST Fuad Winter MD POINT OF CARE TEST ORDERABLES Performing Organization Address [facility] de Phone Number HOSPITAL LAB See Below * (ABNORMAL) proBNP, N-terminal (10/29/2024 7:20 AM EST) Pathologist [facility] proBNP, N-terminal 47,866(H) <450 pg/mL 10/29/2024 12:12 PM EST [facility] Plasma specimen / Unknown 10/29/2024 7:20 AM EST 10/29/2024 8:04 AM EST Madhav Ryan MD LAB BLOOD ORDERABLES Performing Organization Address [facility] Phone Number [facility] [address] [place] [address], [place] [address] * Heparin Assay (Anti Xa) (10/29/2024 7:20 AM EST) [facility] Anti Xa 0.41 IU/mL 10/29/2024 8:28 AM EST [facility] Comment: (NOTE) Heparin Thromboembolic/Standard/Full Dose Protocol: [...] LAB BLOOD ORDERAB LES Performing Organization Address [facility]/State/[facility] [place] [address], [place] [address] * (ABNORMAL) Phosphorus (Early AM) (10/29/2024 7:20 AM EST) Phosphorus 4.9(H) 2.7 - 4.5 mg/dL 10/29/2024 8:40 AM EST [facility] Blood (Plasma/Serum) 10/29/2024 7:20 AM EST 10/29/2024 8:04 AM EST Jonna Donis PA-C LAB BLOOD ORDERABL ES Performing Organization Address City/[facility]/[place] [address], [place] [address] * MAGNESIUM (10/29/2024 7:20 AM EST) Magnesium 1.7 1.6 - 2.7 mg/dL 10/29/2024 8:40 AM [facility] Blood (Plasma/Serum) 10/29/2024 7:20 AM EST 10/29/2024 8:04 AM EST Jonna Donis PA-C LAB BLOOD ORDERABL ES Performing Organization Address [facility] [place] [address], [place] [address] * (ABNORMAL) COMPLETE BLOOD COUNT, WITHOUT DIFFERENTIAL (10/29/2024 7:20 AM EST) White Blood Cell Count 8.5 4.0 - 11.0 Thou/uL 10/29/2024 8:23 AM [facility] Platelet Count 300 150 - 450 Thou/uL 10/29/2024 8:23 AM [facility] Hemoglobin 8.7(L) 13.0 - 17.7 g/dL 10/29/2024 8:23 AM [facility] Hematocrit 29.6(L) 39.0 - 54.0 % 10/29/2024 8:23 AM [facility] Red Blood Cell Count 2.92(L) 4.50 - 6.20 Mil/uL 10/29/2024 8:23 AM [facility] MCV 101(H) 80 - 100 fL 10/29/2024 8:23 AM [facility] MCH 29.8 27.0 - 31.0 pg 10/29/2024 8:23 AM [facility] MCHC 29.4(L) 30.0 - 36.0 g/dL 10/29/2024 8:23 AM [facility] RDW 17.2(H) 11.5 - 14.5 % 10/29/2024 8:23 AM [facility] MPV 10.9 7.5 - 12.5 fL 10/29/2024 8:23 AM [facility] Blood Blood specimen / Unknown 10/29/2024 7:20 AM EST 10/29/2024 8:04 AM EST Jonna Donis PA-C [place] [address], [place] [address] * (ABNORMAL) BASIC METABOLIC PANEL (10/29/2024 7:20 AM EST) Glucose 91 65 - 99 mg/dL 10/29/2024 8:40 AM [facility] Comment:Fasting: <100 mg/dL, Non-Fasting: <200 mg/dL (ADA 2005) Blood Urea Nitrogen (BUN) 44(H) 8 - 21 mg/dL 10/29/2024 8:40 AM [facility] Creatinine 4.3(H) 0.5 - 1.3 mg/dL 10/29/2024 8:40 AM [facility] eGFR 13(L) >59 10/29/2024 8:40 AM [facility] Comment:CKD-EPI (2020) in mL /min/1.73 sq meters. Sodium 142 136 - 145 mmol/L 10/29/2024 8:40 AM [facility] Potassium 4.0 3.4 - 5.3 mmol/L 10/29/2024 8:40 AM [facility] Chloride 103 98 - 107 mmol/L 10/29/2024 8:40 AM [facility] CO2 26 22 - 33 mmol/L 10/29/2024 8:40 AM [facility] Anion Gap 13 7 - 17 10/29/2024 8:40 AM [facility] Calcium 8.8 8.7 - 10.5 mg/dL 10/29/2024 8:40 AM [facility] BUN/Creatinine Ratio 10 10.0 - 25.0 Ratio 10/29/2024 8:40 AM EST [facility] Blood (Plasma/Serum) 10/29/2024 7:20 AM EST 10/29/2024 8:04 AM EST Jonna Donis PA-C LAB BLOOD ORDERABL ES [address] [address], [address] [address] * POCT Glucose, Fingerstick (10/29/2024 2:07 AM EST) POC Glucose 99 65 - 99 mg/dL 10/29/2024 2:07 AM EST Blood specimen / Unknown 10/29/2024 2:07 AM EST 10/29/2024 2:08 AM EST Fuad Winter MD POINT OF CARE TEST ORDERABLES Performing Organization Address [facility] Co de Phone Number [facility] LAB See Below * (ABNORMAL) POCT Glucose, Fingerstick (10/28/2024 9:30 PM EST) POC Glucose 219(H) 65 - 99 mg/dL 10/28/2024 9:31 PM EST Blood specimen / Unknown 10/28/2024 9:30 PM EST 10/28/2024 9:31 PM EST Fuad Winter MD POINT OF CARE TEST ORDERABLES [facility] LAB See Below * (ABNORMAL) POCT Glucose, [...] 2.7 - 4.5 mg/dL 10/28/2024 4:54 PM [facility] Blood (Plasma/Serum) 10/28/2024 3:38 PM EST 10/28/2024 4:29 PM EST Madhav Ryan MD [place] [address], [place] [address] * Magnesium (STAT) (10/28/2024 3:38 PM EST) Pathologist [facility] Magnesium 1.8 1.6 - 2.7 mg/dL 10/28/2024 4:54 PM [facility] Blood (Plasma/Serum) 10/28/2024 3:38 PM EST 10/28/2024 4:29 PM EST Madhav Ryan MD [place] [address], [place] [address] * (ABNORMAL) Basic Metabolic Panel (STAT) (10/28/2024 3:38 PM EST) Pathologist [facility] Glucose 208(H) 65 - 99 mg/dL 10/28/2024 4:54 PM [facility] Comment:Fasting: <100 mg/dL, Non-Fasting: <200 mg/dL (ADA 2004) Blood Urea Nitrogen (BUN) 48(H) 8 - 21 mg/dL 10/28/2024 4:54 PM [facility] Creatinine 4.3(H) 0.5 - 1.3 mg/dL 10/28/2024 4:54 PM [facility] eGFR 13(L) >59 10/28/2024 4:54 PM [facility] Comment:CKD-EPI (2020) in mL /min/1.73 sq meters. Sodium 143 136 - 145 mmol/L 10/28/2024 4:54 PM [facility] Potassium 4.7 3.4 - 5.3 mmol/L 10/28/2024 4:54 PM [facility] Chloride 105 98 - 107 mmol/L 10/28/2024 4:54 PM [facility] CO2 25 22 - 33 mmol/L 10/28/2024 4:54 PM [facility] Anion Gap 13 7 - 17 10/28/2024 4:54 PM [facility] Calcium 8.9 8.7 - 10.5 mg/dL 10/28/2024 4:54 PM [facility] BUN/Creatinine Ratio 11 10.0 - 25.0 Ratio 10/28/2024 4:54 PM [facility] Blood (Plasma/Serum) 10/28/2024 3:38 PM EST 10/28/2024 4:29 PM EST Madhav Ryan MD [place] [address], [place] [address] * (ABNORMAL) POCT Glucose, Fingerstick (10/28/2024 12:32 PM EST) Pathologist [facility] POC Glucose 232(H) 65 - 99 mg/dL 10/28/2024 12:36 PM EST Blood specimen / Unknown 10/28/2024 12:32 PM EST 10/28/2024 12:36 PM EST Fuad Winter MD POINT OF CARE TEST ORDERABLES HOSPITAL LAB See Below * (ABNORMAL) POCT Glucose, Fingerstick (10/28/2024 8:28 AM EST) Pathologist [facility] Glucose 111(H) 65 - 99 mg/dL 10/28/2024 8:30 AM EST Blood specimen / Unknown 10/28/2024 8:28 AM EST 10/28/2024 8:29 AM EST Fuad Winter MD POINT OF CARE TEST ORDERABLES HOSPITAL LAB See Below * Heparin Assay (Anti Xa) (10/28/2024 7:00 AM EST) Anti Xa 0.39 IU/mL 10/28/2024 7:54 AM EST [facility] Comment: (NOTE) Heparin Thromboembolic/Standard/Full Dose Protocol: [...] LAB BLOOD ORDERAB LES Performing Organization Address [facility] [place] [address], [place] [address] * (ABNORMAL) Phosphorus (Early AM) (10/28/2024 7:00 AM EST) Phosphorus 4.6(H) 2.7 - 4.5 mg/dL 10/28/2024 8:08 AM EST [facility] Blood (Plasma/Serum) 10/28/2024 7:00 AM EST 10/28/2024 7:37 AM EST Jonna Donis PA-C LAB BLOOD ORDERABL ES Performing Organization Address [facility] Co de Phone Number [address] [address], [address] [address] * MAGNESIUM (10/28/2024 7:00 AM EST) Magnesium 1.8 1.6 - 2.7 mg/dL 10/28/2024 8:08 AM EST [facility] Blood (Plasma/Serum) 10/28/2024 7:00 AM EST 10/28/2024 7:37 AM EST Jonna Donis PA-C LAB BLOOD ORDERABL ES Performing Organization Address [facility] [place] [address], [address] [address] * (ABNORMAL) COMPLETE BLOOD COUNT, WITHOUT DIFFERENTIAL (10/28/2024 7:00 AM EST) [facility] White Blood Cell Count 9.2 4.0 - 11.0 Thou/uL 10/28/2024 7:46 AM [facility] Platelet Count 326 150 - 450 Thou/uL 10/28/2024 7:46 AM [facility] Hemoglobin 8.7(L) 13.0 - 17.7 g/dL 10/28/2024 7:46 AM [facility] Hematocrit 29.1(L) 39.0 - 54.0 % 10/28/2024 7:46 AM [facility] Red Blood Cell Count 2.85(L) 4.50 - 6.20 Mil/uL 10/28/2024 7:46 AM [facility] MCV 102(H) 80 - 100 fL 10/28/2024 7:46 AM [facility] MCH 30.5 27.0 - 31.0 pg 10/28/2024 7:46 AM [facility] MCHC 29.9(L) 30.0 - 36.0 g/dL 10/28/2024 7:46 AM [facility] RDW 17.2(H) 11.5 - 14.5 % 10/28/2024 7:46 AM [facility] MPV 11.3 7.5 - 12.5 fL 10/28/2024 7:46 AM [facility] Blood Blood specimen / Unknown 10/28/2024 7:00 AM EST 10/28/2024 7:37 AM EST Jonna Donis PA-C LAB BLOOD ORDERABL ES [address] [address], [address] [address] * (ABNORMAL) BASIC METABOLIC PANEL (10/28/2024 7:00 AM EST) [facility] Glucose 84 65 - 99 mg/dL 10/28/2024 8:08 AM [facility] Comment:Fasting: <100 mg/dL, Non-Fasting: <200 mg/dL (ADA 2005) Blood Urea Nitrogen (BUN) 50(H) 8 - 21 mg/dL 10/28/2024 8:08 AM [facility] Creatinine 4.4(H) 0.5 - 1.3 mg/dL 10/28/2024 8:08 AM [facility] eGFR 13(L) >59 10/28/2024 8:08 AM [facility] Comment:CKD-EPI (2020) in mL /min/1.73 sq meters. Sodium 142 136 - 145 mmol/L 10/28/2024 8:08 AM [facility] Potassium 3.9 3.4 - 5.3 mmol/L 10/28/2024 8:08 AM [facility] Chloride 105 98 - 107 mmol/L 10/28/2024 8:08 AM [facility] CO2 25 22 - 33 mmol/L 10/28/2024 8:08 AM [facility] Anion Gap 12 7 - 17 10/28/2024 8:08 AM [facility] Calcium 8.6(L) 8.7 - 10.5 mg/dL 10/28/2024 8:08 AM [facility] BUN/Creatinine Ratio 11 10.0 - 25.0 Ratio 10/28/2024 8:08 AM [facility] Blood (Plasma/Serum) 10/28/2024 7:00 AM EST 10/28/2024 7:37 AM EST Jonna Donis PA-C [place] [address], [place] [address] * (ABNORMAL) POCT Glucose, Fingerstick (10/28/2024 4:20 AM EST) POC Glucose 109(H) 65 - 99 mg/dL 10/28/2024 4:21 AM EST Blood specimen / Unknown 10/28/2024 4:20 AM EST 10/28/2024 4:21 AM EST Fuad Winter MD POINT OF CARE TEST ORDERABLES Performing Organization Address [facility] Phone [facility] LAB See Below * (ABNORMAL) POCT Glucose, Fingerstick (10/28/2024 12:29 AM EST) POC Glucose 129(H) 65 - 99 mg/dL 10/28/2024 12:30 AM EST Blood specimen / Unknown 10/28/2024 12:29 AM EST 10/28/2024 12:30 AM EST Fuad Winter MD POINT OF CARE TEST ORDERABLES Performing Organization Address [facility] Phone Number [facility] LAB See Below * (ABNORMAL) POCT Glucose, Fingerstick (10/27/2024 8:06 PM EST) POC Glucose 203(H) 65 - 99 mg/dL 10/27/2024 8:10 PM EST Blood specimen / Unknown 10/27/2024 8:06 PM EST 10/27/2024 8:10 PM EST Fuad Winter MD POINT OF CARE TEST ORDERABLES Performing Organization Address [facility] Phone [facility] LAB See Below * (ABNORMAL) POCT Glucose, Fingerstick (10/27/2024 4:20 PM EST) POC Glucose 224(H) 65 - 99 mg/dL 10/27/2024 4:28 PM EST Blood specimen / Unknown 10/27/2024 4:20 PM EST 10/27/2024 4:28 PM EST Fuad Winter MD POINT OF CARE TEST ORDERABLES Performing Organization Address [facility] Phone Number [facility] LAB See Below * (ABNORMAL) Basic Metabolic Panel (Routine) (10/27/2024 3:26 PM EST) Glucose 179(H) 65 - 99 mg/dL 10/27/2024 4:11 PM EST [facility] Comment:Fasting: <100 mg/dL, Non-Fasting: <200 mg/dL (ADA 2005) Blood Urea Nitrogen (BUN) 53(H) 8 - 21 mg/dL 10/27/2024 4:11 PM [facility] Creatinine 4.2(H) 0.5 - 1.3 mg/dL 10/27/2024 4:11 PM [facility] eGFR 14(L) >59 10/27/2024 4:11 PM [facility] Comment:CKD-EPI (2020) in mL /min/1.73 sq meters. Sodium 143 136 - 145 mmol/L 10/27/2024 4:11 PM [facility] Potassium 5.2 3.4 - 5.3 mmol/L 10/27/2024 4:11 PM [facility] Chloride 105 98 - 107 mmol/L 10/27/2024 4:11 PM [facility] CO2 25 22 - 33 mmol/L 10/27/2024 4:11 PM [facility] Anion Gap 13 7 - 17 10/27/2024 4:11 PM [facility] Calcium 8.6(L) 8.7 - 10.5 mg/dL 10/27/2024 4:11 PM [facility] BUN/Creatinine Ratio 13 10.0 - 25.0 Ratio 10/27/2024 4:11 PM [facility] Blood (Plasma/Serum) 10/27/2024 3:26 PM EST 10/27/2024 3:45 PM EST Madhav Ryan MD [place] [address], [place] [address] * (ABNORMAL) POCT Glucose, Fingerstick (10/27/2024 1:13 [...] AM EST) Ventricular rate 60 BPM EKG [facility] Atrial rate [address] [facility] P-R interval 150 ms EKG [facility] QRS duration 84 ms EKG [facility] Q-T interval 488 ms EKG [facility] QTC calculation (Bazett) 488 ms EKG [facility] P axis 45 degrees EKG [facility] R axis 13 degrees EKG [facility] T axis 199 degrees EKG [facility] 10/27/2024 7:41 AM EST Narrative EKG [facility] - 10/27/2024 6:03 PM EST Normal [...] PM Madhav Ryan MD ECG ORDERABLES EKG [facility] * Heparin Assay (Anti Xa) (10/27/2024 7:29 AM EST) Anti Xa 0.39 IU/mL 10/27/2024 8:42 AM EST [facility] Comment: (NOTE) Heparin Thromboembolic/Standard/Full Dose Protocol: [...] LAB BLOOD ORDERAB LES Performing Organization Address [facility] [place] [address], [place] [address] * (ABNORMAL) Phosphorus (AM) (10/27/2024 7:29 AM EST) Phosphorus 4.6(H) 2.7 - 4.5 mg/dL 10/27/2024 8:48 AM EST [facility] Blood (Plasma/Serum) 10/27/2024 7:29 AM EST 10/27/2024 8:24 AM EST Neymar Mcfarland MD LAB BLOOD ORDERAB LES Performing Organization Address [facility] [place] [address], [address] [address] * Magnesium (AM) (10/27/2024 7:29 AM EST) Magnesium 1.8 1.6 - 2.7 mg/dL 10/27/2024 8:48 AM EST [facility] Blood (Plasma/Serum) 10/27/2024 7:29 AM EST 10/27/2024 8:24 AM EST Neymar Mcfarland MD LAB BLOOD ORDERAB LES Performing Organization Address [facility] [place] [address], [place] [address] * (ABNORMAL) Basic Metabolic Panel (AM) (10/27/2024 7:29 AM EST) Glucose 63(L) 65 - 99 mg/dL 10/27/2024 8:48 AM [facility] Comment:Fasting: <100 mg/dL, Non-Fasting: <200 mg/dL (ADA 2004) Blood Urea Nitrogen (BUN) 59(H) 8 - 21 mg/dL 10/27/2024 8:48 AM [facility] Creatinine 4.3(H) 0.5 - 1.3 mg/dL 10/27/2024 8:48 AM [facility] eGFR 13(L) >59 10/27/2024 8:48 AM [facility] Comment:CKD-EPI (2020) in mL /min/1.73 sq meters. Sodium 146(H) 136 - 145 mmol/L 10/27/2024 8:48 AM [facility] Potassium 3.7 3.4 - 5.3 mmol/L 10/27/2024 8:48 AM [facility] Chloride 107 98 - 107 mmol/L 10/27/2024 8:48 AM [facility] CO2 24 22 - 33 mmol/L 10/27/2024 8:48 AM [facility] Anion Gap 15 7 - 17 10/27/2024 8:48 AM [facility] Calcium 8.4(L) 8.7 - 10.5 mg/dL 10/27/2024 8:48 AM [facility] BUN/Creatinine Ratio 14 10.0 - 25.0 Ratio 10/27/2024 8:48 AM [facility] Blood (Plasma/Serum) 10/27/2024 7:29 AM EST 10/27/2024 8:24 AM EST Neymar Mcfarland MD [place] [address], [place] [address] * (ABNORMAL) Complete Blood Count WITHOUT Differential - in AM (10/27/2024 7:29 AM EST) [facility] White Blood Cell Count 9.2 4.0 - 11.0 Thou/uL 10/27/2024 8:38 AM [facility] Platelet Count 321 150 - 450 Thou/uL 10/27/2024 8:38 AM [facility] Hemoglobin 9.0(L) 13.0 - 17.7 g/dL 10/27/2024 8:38 AM [facility] Hematocrit 29.8(L) 39.0 - 54.0 % 10/27/2024 8:38 AM [facility] Red Blood Cell Count 2.95(L) 4.50 - 6.20 Mil/uL 10/27/2024 8:38 AM [facility] MCV 101(H) 80 - 100 fL 10/27/2024 8:38 AM [facility] MCH 30.5 27.0 - 31.0 pg 10/27/2024 8:38 AM [facility] MCHC 30.2 30.0 - 36.0 g/dL 10/27/2024 8:38 AM [facility] RDW 16.9(H) 11.5 - 14.5 % 10/27/2024 8:38 AM [facility] MPV 11.6 7.5 - 12.5 fL 10/27/2024 8:38 AM [facility] Blood Blood specimen / Unknown 10/27/2024 7:29 AM EST 10/27/2024 8:24 AM EST Neymar Mcfarland MD LAB BLOOD ORDERAB LES [facility] Organization Address City/State/[facility] [place] [address], [place] [address] * POCT Glucose, Fingerstick (10/27/2024 4:02 AM EST) [facility] POC Glucose 90 65 - 99 mg/dL 10/27/2024 4:03 AM EST Blood specimen / Unknown 10/27/2024 4:02 AM EST 10/27/2024 4:03 AM EST Fuad Winter MD POINT OF CARE TEST ORDERABLES Performing Organization Address [facility] Phone Number HOSPITAL LAB See Below * (ABNORMAL) POCT Glucose, Fingerstick (10/27/2024 1:20 AM EST) POC Glucose 155(H) 65 - 99 mg/dL 10/27/2024 1:25 AM EST Blood specimen / Unknown 10/27/2024 1:20 AM EST 10/27/2024 1:25 AM EST Fuad Winter MD POINT OF CARE TEST ORDERABLES Performing Organization Address [facility] Phone Number HOSPITAL LAB See Below * POCT Glucose, Fingerstick (10/27/2024 12:29 AM EST) POC Glucose 74 65 - 99 mg/dL 10/27/2024 12:30 AM EST Blood specimen / Unknown 10/27/2024 12:29 AM EST 10/27/2024 12:30 AM EST Fuad Winter MD POINT OF CARE TEST ORDERABLES Performing Organization Address [facility] Phone Number [facility] LAB See Below * (ABNORMAL) POCT Glucose, Fingerstick (10/26/2024 8:11 PM EST) POC Glucose 120(H) 65 - 99 mg/dL 10/26/2024 8:12 PM EST Blood specimen / Unknown 10/26/2024 8:11 PM EST 10/26/2024 8:12 PM EST Fuad Winter MD POINT OF CARE TEST ORDERABLES Performing Organization Address [facility] Co or Phone Number HOSPITAL LAB See Below * [...] 2,071(HH) <23 ng/L 10/26/2024 11:53 AM EST [facility] Comment:Recurring Critical R esult. Previously phoned. Delta (Change) 532(H) <3 10/26/2024 11:53 AM EST [facility] Comment:Decreased Blood (Plasma/Serum) 10/26/2024 10:49 AM EST 10/26/2024 11:11 AM EST Neymar Mcfarland MD LAB BLOOD ORDERAB LES Performing Organization Address [facility] [place] [address], [place] [address] * POCT Glucose, Fingerstick (10/26/2024 8:48 AM EST) POC Glucose 90 65 - 99 mg/dL 10/26/2024 8:49 AM EST Blood specimen / Unknown 10/26/2024 8:48 AM EST 10/26/2024 8:49 AM EST Fuad Winter MD POINT OF CARE TEST ORDERABLES HOSPITAL LAB See Below * Heparin Assay (Anti Xa) (10/26/2024 6:18 AM EST) [facility] Signature Anti Xa 0.49 IU/mL 10/26/2024 7:38 AM EST [facility] Comment: (NOTE) Heparin Thromboembolic/Standard/Full Dose Protocol: [...] LAB BLOOD ORDERAB LES Performing Organization Address City/[facility] [place] [address], [place] [address] * Phosphorus (AM) (10/26/2024 6:18 AM EST) Phosphorus 4.2 2.7 - 4.5 mg/dL 10/26/2024 7:45 AM EST [facility] Blood (Plasma/Serum) 10/26/2024 6:18 AM EST 10/26/2024 7:22 AM EST Neymar Mcfarland MD LAB BLOOD ORDERAB LES Performing Organization Address [facility] [place] [address], [place] [address] * Magnesium (AM) (10/26/2024 6:18 AM EST) Magnesium 1.9 1.6 - 2.7 mg/dL 10/26/2024 7:45 AM EST [facility] Blood (Plasma/Serum) 10/26/2024 6:18 AM EST 10/26/2024 7:22 AM EST Neymar Mcfarland MD LAB BLOOD ORDERAB LES Performing Organization Address [facility] [place] [address], [place] [address] * (ABNORMAL) Basic Metabolic Panel (AM) (10/26/2024 6:18 AM EST) Glucose 79 65 - 99 mg/dL 10/26/2024 7:45 AM [facility] Comment:Fasting: <100 mg/dL, Non-Fasting: <200 mg/dL (ADA 2004) Blood Urea Nitrogen (BUN) 61(H) 8 - 21 mg/dL 10/26/2024 7:45 AM [facility] Creatinine 4.0(H) 0.5 - 1.3 mg/dL 10/26/2024 7:45 AM [facility] eGFR 14(L) >59 10/26/2024 7:45 AM [facility] Comment:CKD-EPI (2020) in mL /min/1.73 sq meters. Sodium 145 136 - 145 mmol/L 10/26/2024 7:45 AM [facility] Potassium 4.2 3.4 - 5.3 mmol/L 10/26/2024 7:45 AM [facility] Chloride 107 98 - 107 mmol/L 10/26/2024 7:45 AM [facility] CO2 23 22 - 33 mmol/L 10/26/2024 7:45 AM [facility] Anion Gap 15 7 - 17 10/26/2024 7:45 AM [facility] Calcium 7.9(L) 8.7 - 10.5 mg/dL 10/26/2024 7:45 AM [facility] BUN/Creatinine Ratio 15 10.0 - 25.0 Ratio 10/26/2024 7:45 AM [facility] Blood (Plasma/Serum) 10/26/2024 6:18 AM EST 10/26/2024 7:22 AM EST Neymar Mcfarland MD [place] [address], [address] [address] * (ABNORMAL) Complete Blood Count WITHOUT Differential - in AM (10/26/2024 6:18 AM EST) White Blood Cell Count 9.7 4.0 - 11.0 Thou/uL 10/26/2024 7:29 AM [facility] Platelet Count 328 150 - 450 Thou/uL 10/26/2024 7:29 AM [facility] Hemoglobin 8.6(L) 13.0 - 17.7 g/dL 10/26/2024 7:29 AM [facility] Hematocrit 27.9(L) 39.0 - 54.0 % 10/26/2024 7:29 AM [facility] Red Blood Cell Count 2.78(L) 4.50 - 6.20 Mil/uL 10/26/2024 7:29 AM [facility] MCV 100 80 - 100 fL 10/26/2024 7:29 AM [facility] MCH 30.9 27.0 - 31.0 pg 10/26/2024 7:29 AM [facility] MCHC 30.8 30.0 - 36.0 g/dL 10/26/2024 7:29 AM [facility] RDW 16.8(H) 11.5 - 14.5 % 10/26/2024 7:29 AM [facility] MPV 11.6 7.5 - 12.5 fL 10/26/2024 7:29 AM [facility] Blood Blood specimen / Unknown 10/26/2024 6:18 AM EST 10/26/2024 7:22 AM EST Neymar Mcfarland MD [place] [address], [place] [address] * (ABNORMAL) POCT Glucose, Fingerstick (10/26/2024 3:58 AM EST) POC Glucose 100(H) 65 - 99 mg/dL 10/26/2024 3:58 AM EST Blood specimen / Unknown 10/26/2024 3:58 AM EST 10/26/2024 3:59 AM EST Fuad Winter MD POINT OF CARE TEST ORDERABLES HOSPITAL LAB See Below * (ABNORMAL) POCT Glucose, Fingerstick (10/25/2024 11:49 PM EST) Pathologist [facility] POC Glucose 125(H) 65 - 99 mg/dL 10/25/2024 11:50 PM EST Blood specimen / Unknown 10/25/2024 11:49 PM EST 10/25/2024 11:50 PM EST Fuad Winter MD POINT OF CARE TEST ORDERABLES HOSPITAL LAB See Below * Heparin Assay (Anti Xa) (10/25/2024 11:35 PM EST) [facility] Anti Xa 0.44 IU/mL 10/26/2024 12:23 AM EST [facility] Comment: (NOTE) Heparin Thromboembolic/Standard/Full Dose Protocol: [...] LAB BLOOD ORDERAB LES Performing Organization Address [facility] [place] [address], [place] [address] * (ABNORMAL) POCT Glucose, Fingerstick (10/25/2024 8:20 PM EST) [facility] POC Glucose 222(H) 65 - 99 mg/dL 10/25/2024 8:21 PM EST Blood specimen / Unknown 10/25/2024 8:20 PM EST 10/25/2024 8:21 PM EST Fuad Winter MD POINT OF CARE TEST ORDERABLES HOSPITAL LAB See Below * (ABNORMAL) POCT Glucose, Fingerstick (10/25/2024 5:39 PM EST) Pathologist [facility] POC Glucose 135(H) 65 - 99 mg/dL 10/25/2024 5:44 PM EST Blood specimen / Unknown 10/25/2024 5:39 PM EST 10/25/2024 5:44 PM EST Fuad Winter MD POINT OF CARE TEST ORDERABLES HOSPITAL LAB See Below * Heparin Assay (Anti Xa) (10/25/2024 5:03 PM EST) Anti Xa 0.57 IU/mL 10/25/2024 5:53 PM EST [facility] Comment: (NOTE) Heparin Thromboembolic/Standard/Full Dose Protocol: [...] LAB BLOOD ORDERAB LES Performing Organization Address [facility] [place] [address], [place] [address] * (ABNORMAL) High Sensitivity Troponin T (now and in 3 hours) (10/25/2024 5:03 PM EST) High Sensitivity Troponin T 2,468(HH) <23 ng/L 10/25/2024 6:02 PM [facility] Comment:Recurring Critical R esult. Previously phoned. Delta (Change) 135(H) <3 10/25/2024 6:02 PM [facility] Comment:Decreased Blood (Plasma/Serum) 10/25/2024 5:03 PM EST 10/25/2024 5:25 PM EST Neymar Mcfarland MD LAB BLOOD ORDERAB LES Performing Organization Address [facility] [place] [address], [place] [address] * (ABNORMAL) High Sensitivity Troponin T (now and in 3 hours) (10/25/2024 3:38 PM EST) High Sensitivity Troponin T 2,413(HH) <23 ng/L 10/25/2024 4:21 PM [facility] Comment:Recurring Critical R esult. Previously phoned. Delta (Change) 190(H) <3 10/25/2024 4:21 PM [facility] Comment:Decreased Blood (Plasma/Serum) 10/25/2024 3:38 PM EST 10/25/2024 3:48 PM EST Neymar Mcfarland MD LAB BLOOD ORDERAB LES Performing Organization Address [facility] [place] [address], [place] [address] * (ABNORMAL) High Sensitivity Troponin T (10/25/2024 12:47 PM EST) High Sensitivity Troponin T 2,394(HH) <23 ng/L 10/25/2024 2:04 PM [facility] Comment:Recurring Critical R esult. Previously phoned. Delta (Change) 209(H) <3 10/25/2024 2:04 PM [facility] Comment:Decreased Plasma/Serum 10/25/2024 12:4 7 PM EST 10/25/2024 1:34 PM EST Bryant Gracia PA-C LAB BLOOD ORDERABLES Performing Organization Address [facility] [place] [address], [place] [address] * Heparin Assay (Anti Xa) (10/25/2024 12:47 PM EST) Anti Xa 0.47 IU/mL 10/25/2024 2:06 PM [facility] Comment: (NOTE) Heparin Thromboembolic/Standard/Full Dose Protocol: [...] BLOOD ORDERAB LES Performing Organization Address City/State/[facility] [place] [address], [place] [address] * (ABNORMAL) POCT Glucose, Fingerstick (10/25/2024 12:33 [...] AM EST) Ventricular rate 76 BPM EKG [facility] Atrial rate [address] [facility] P-R interval 152 ms EKG [facility] QRS duration 82 ms EKG [facility] Q-T interval 450 ms EKG [facility] QTC calculation (Bazett) 506 ms EKG [facility] P axis 67 degrees EKG [facility] R axis 69 degrees EKG [facility] T axis 237 degrees EKG [facility] 10/25/2024 10:4 4 AM EST Narrative EKG [facility] - 10/25/2024 8:09 PM EST Normal sinus rhythm ST & T wave abnormality, consider lateral ischemia Prolonged QT Abnormal ECG When compared with ECG of 23-Oct-2024 17:43, Nonspecific T wave abnormality, worse in Inferior leads T wave inversion less evident in Lateral leads Confirmed by DO Ladd Kyla ([id number]) on 10/25/2024 8:09:06 PM Procedure Note Jessica Ladd DO - 10/25/[address] & T wave abnormality, consider lateral ischemia Prolonged QT Abnormal ECG When compared with ECG of 23-Oct-2024 17:43, Nonspecific T wave abnormality, worse in Inferior leads T wave inversion less evident in Lateral leads Confirmed by DO Ladd Kyla ([id number]) on 10/25/2024 8:09:06 PM Fuad Winter MD ECG ORDERABLE S [facility] * (ABNORMAL) High Sensitivity Troponin T (10/25/2024 10:25 AM EST) High Sensitivity Troponin T 2,514(HH) <23 ng/L 10/25/2024 11:49 AM EST [facility] Comment:Recurring Critical R esult. Previously phoned. Delta (Change) 89(H) <3 10/25/2024 11:49 AM EST [facility] Comment:Decreased Plasma/Serum 10/25/2024 10:2 5 AM EST 10/25/2024 11:17 AM EST Bryant Gracia PA-C LAB BLOOD ORDERABLES [facility] [address] [place] [address], [address] [address] * (ABNORMAL) POCT Glucose, Fingerstick (10/25/2024 9:20 AM EST) [facility] POC Glucose 129(H) 65 - 99 mg/dL 10/25/2024 9:21 AM EST Blood specimen / Unknown 10/25/2024 9:20 AM EST 10/25/2024 9:21 AM EST Fuad Winter MD POINT OF CARE TEST ORDERABLES HOSPITAL LAB See Below * CREATINE KINASE (CK) (10/25/2024 8:27 AM EST) [facility] Creatine Kinase (CK) 76 24 - 204 U/L 10/25/2024 10:25 AM EST [facility] Plasma/Serum 10/25/2024 8:27 AM EST 10/25/2024 9:16 AM EST Neymar Mcfarland MD LAB BLOOD ORDERAB LES Performing Organization Address [facility] [place] [address], [place] [address] * (ABNORMAL) High Sensitivity Troponin T (10/25/2024 8:27 AM EST) [facility] High Sensitivity Troponin T 2,603(HH) <23 ng/L 10/25/2024 10:25 AM EST [facility] Delta (Change) NO PREVIOUS RESULT <3 10/25/2024 10:25 AM EST [facility] Plasma/Serum 10/25/2024 8:27 AM EST 10/25/2024 9:16 AM EST Neymar Mcfarland MD LAB BLOOD ORDERAB LES Performing Organization Address [facility] [place] [address], [place] [address] * Phosphorus (AM) (10/25/2024 8:27 AM EST) Phosphorus 3.8 2.7 - 4.5 mg/dL 10/25/2024 10:25 AM [facility] Blood (Plasma/Serum) 10/25/2024 8:27 AM EST 10/25/2024 9:16 AM EST Neymar Mcfarland MD LAB BLOOD ORDERAB LES Performing Organization Address City/[facility]/[place] [address], [place] [address] * Magnesium (AM) (10/25/2024 8:27 AM EST) Magnesium 2.0 1.6 - 2.7 mg/dL 10/25/2024 10:25 AM [facility] Blood (Plasma/Serum) 10/25/2024 8:27 AM EST 10/25/2024 9:16 AM EST Neymar Mcfarland MD LAB BLOOD ORDERAB LES Performing Organization Address City/[facility] [place] [address], [place] [address] * (ABNORMAL) Basic Metabolic Panel (AM) (10/25/2024 8:27 AM EST) Glucose 123(H) 65 - 99 mg/dL 10/25/2024 10:25 AM [facility] Comment:Fasting: <100 mg/dL, Non-Fasting: <200 mg/dL (ADA 2004) Blood Urea Nitrogen (BUN) 64(H) 8 - 21 mg/dL 10/25/2024 10:25 AM [facility] Creatinine 3.9(H) 0.5 - 1.3 mg/dL 10/25/2024 10:25 AM [facility] eGFR 15(L) >59 10/25/2024 10:25 AM [facility] Comment:CKD-EPI (2020) in mL /min/1.73 sq meters. Sodium 141 136 - 145 mmol/L 10/25/2024 10:25 AM [facility] Potassium 4.6 3.4 - 5.3 mmol/L 10/25/2024 10:25 AM [facility] Chloride 104 98 - 107 mmol/L 10/25/2024 10:25 AM [facility] CO2 21(L) 22 - 33 mmol/L 10/25/2024 10:25 AM [facility] Anion Gap 16 7 - 17 10/25/2024 10:25 AM [facility] Calcium 7.8(L) 8.7 - 10.5 mg/dL 10/25/2024 10:25 AM [facility] BUN/Creatinine Ratio 16 10.0 - 25.0 Ratio 10/25/2024 10:25 AM [facility] Blood (Plasma/Serum) 10/25/2024 8:27 AM EST 10/25/2024 9:16 AM EST Neymar Mcfarland MD LAB BLOOD ORDERAB LES Performing Organization Address City/State/[facility] [place] [address], [place] [address] * (ABNORMAL) Complete Blood Count WITHOUT Differential - in AM (10/25/2024 8:27 AM EST) White Blood Cell Count 12.5(H) 4.0 - 11.0 Thou/uL 10/25/2024 9:39 AM [facility] Platelet Count 361 150 - 450 Thou/uL 10/25/2024 9:39 AM [facility] Hemoglobin 9.2(L) 13.0 - 17.7 g/dL 10/25/2024 9:39 AM [facility] Hematocrit 29.9(L) 39.0 - 54.0 % 10/25/2024 9:39 AM [facility] Red Blood Cell Count 3.01(L) 4.50 - 6.20 Mil/uL 10/25/2024 9:39 AM [facility] MCV 99 80 - 100 fL 10/25/2024 9:39 AM [facility] MCH 30.6 27.0 - 31.0 pg 10/25/2024 9:39 AM [facility] MCHC 30.8 30.0 - 36.0 g/dL 10/25/2024 9:39 AM [facility] RDW 16.7(H) 11.5 - 14.5 % 10/25/2024 9:39 AM [facility] MPV 11.3 7.5 - 12.5 fL 10/25/2024 9:39 AM [facility] Blood Blood specimen / Unknown 10/25/2024 8:27 AM EST 10/25/2024 9:16 AM EST Neymar Mcfarland MD LAB BLOOD ORDERAB LES Performing Organization Address City/State/[facility] Co de Phone Number [facility] [address] [place] [address], [facility] [address] [place] [address] * Heparin Assay (Anti Xa) (10/25/2024 5:21 AM EST) Anti Xa 0.51 IU/mL 10/25/2024 5:55 AM [facility] Comment: (NOTE) Heparin Thromboembolic/Standard/Full Dose Protocol: [...] LAB BLOOD ORDERAB LES Performing Organization Address [facility] [place] [address], [place] [address] * (ABNORMAL) POCT Glucose, Fingerstick (10/25/2024 5:15 AM EST) [facility] POC Glucose 115(H) 65 - 99 mg/dL 10/25/2024 5:15 AM EST Blood specimen / Unknown 10/25/2024 5:15 AM EST 10/25/2024 5:16 AM EST Fuad Winter MD POINT OF CARE TEST ORDERABLES Performing Organization Address [facility] Co de Phone Number HOSPITAL LAB See Below * (ABNORMAL) POCT Glucose, Fingerstick (10/25/2024 1:03 AM EST) Pathologist [facility] POC Glucose 125(H) 65 - 99 mg/dL 10/25/2024 1:03 AM EST Blood specimen / Unknown 10/25/2024 1:03 AM EST 10/25/2024 1:04 AM EST Fuad Winter MD POINT OF CARE TEST ORDERABLES HOSPITAL LAB See Below * Heparin Assay (Anti Xa) (10/24/2024 9:57 PM EST) Pathologist [facility] Anti Xa 0.58 IU/mL 10/24/2024 10:50 PM EST [facility] Comment: (NOTE) Heparin Thromboembolic/Standard/Full Dose Protocol: [...] LAB BLOOD ORDERAB LES Performing Organization Address [facility] [place] [address], [place] [address] * (ABNORMAL) POCT Glucose, Fingerstick (10/24/2024 8:23 PM EST) Pathologist [facility] POC Glucose 211(H) 65 - 99 mg/dL 10/24/2024 8:24 PM EST Blood specimen / Unknown 10/24/2024 8:23 PM EST 10/24/2024 8:24 PM EST Fuad Winter MD POINT OF CARE TEST ORDERABLES Performing Organization Address [facility] de Phone Number HOSPITAL LAB See Below * Heparin Assay (Anti Xa) (10/24/2024 4:14 PM EST) Pathologist [facility] Anti Xa 0.56 IU/mL 10/24/2024 5:08 PM EST [facility] Comment: (NOTE) Heparin Thromboembolic/Standard/Full Dose Protocol: [...] LAB BLOOD ORDERAB LES Performing Organization Address [facility] Co de Phone Number [address] [address], [facility] [address] [place] [address] * (ABNORMAL) POCT Glucose, Fingerstick (10/24/2024 4:07 PM EST) POC Glucose 152(H) 65 - 99 mg/dL 10/24/2024 4:09 PM EST Blood specimen / Unknown 10/24/2024 4:07 PM EST 10/24/2024 4:09 PM EST Fuad Winter MD POINT OF CARE TEST ORDERABLES Performing Organization Address [facility] Co de Phone Number HOSPITAL LAB See Below * (ABNORMAL) POCT Glucose, Fingerstick (10/24/2024 11:13 AM EST) POC Glucose 158(H) 65 - 99 mg/dL 10/24/2024 11:14 AM EST Blood specimen / Unknown 10/24/2024 11:13 AM EST 10/24/2024 11:14 AM EST Fuad Winter MD POINT OF CARE TEST ORDERABLES Performing Organization Address [facility] Phone Number HOSPITAL LAB See Below [...] OF CARE TEST ORDERABLES Performing Organization Address City/[facility]/ZIP Co de Phone Number HOSPITAL LAB See Below * (ABNORMAL) B-Hydroxybutyrate (10/24/2024 7:11 AM EST) Pathologist [facility] B-Hydroxybutyrate 2.36(H) <0.28 mmol/L 10/24/2024 10:30 AM EST [facility] Comment: In the [...] MD LAB BLOOD ORDERABLES Performing Organization Address [facility]/[place] [address], [place] [address] * Heparin Assay (Anti Xa) (10/24/2024 7:11 AM EST) [facility] Anti Xa 0.17 IU/mL 10/24/2024 8:02 AM EST [facility] Comment: (NOTE) Heparin Thromboembolic/Standard/Full Dose Protocol: [...] MD LAB BLOOD ORDERABLES Performing Organization Address [facility]/[place] [address], [place] [address] * Phosphorus (AM) (10/24/2024 7:11 AM EST) Phosphorus 4.5 2.7 - 4.5 mg/dL 10/24/2024 8:15 AM EST [facility] Blood (Plasma/Serum) 10/24/2024 7:11 AM EST 10/24/2024 7:48 AM EST Neymar Mcfarland MD LAB BLOOD ORDERAB LES Performing Organization Address [facility]/[place] [address], [place] [address] * Magnesium (AM) (10/24/2024 7:11 AM EST) Magnesium 1.8 1.6 - 2.7 mg/dL 10/24/2024 8:15 AM [facility] Blood (Plasma/Serum) 10/24/2024 7:11 AM EST 10/24/2024 7:48 AM EST Neymar Mcfarland MD LAB BLOOD ORDERAB LES Performing Organization Address City/[facility] [place] [address], [place] [address] * (ABNORMAL) Basic Metabolic Panel (AM) (10/24/2024 7:11 AM EST) Glucose 149(H) 65 - 99 mg/dL 10/24/2024 8:15 AM [facility] Comment:Fasting: <100 mg/dL, Non-Fasting: <200 mg/dL (ADA 2005) Blood Urea Nitrogen (BUN) 68(H) 8 - 21 mg/dL 10/24/2024 8:15 AM [facility] Creatinine 4.0(H) 0.5 - 1.3 mg/dL 10/24/2024 8:15 AM [facility] eGFR 14(L) >59 10/24/2024 8:15 AM [facility] Comment:CKD-EPI (2020) in mL /min/1.73 sq meters. Sodium 143 136 - 145 mmol/L 10/24/2024 8:15 AM [facility] Potassium 4.9 3.4 - 5.3 mmol/L 10/24/2024 8:15 AM [facility] Chloride 105 98 - 107 mmol/L 10/24/2024 8:15 AM [facility] CO2 19(L) 22 - 33 mmol/L 10/24/2024 8:15 AM [facility] Anion Gap 19(H) 7 - 17 10/24/2024 8:15 AM [facility] Calcium 7.8(L) 8.7 - 10.5 mg/dL 10/24/2024 8:15 AM [facility] BUN/Creatinine Ratio 17 10.0 - 25.0 Ratio 10/24/2024 8:15 AM [facility] Blood (Plasma/Serum) 10/24/2024 7:11 AM EST 10/24/2024 7:48 AM EST Neymar Mcfarland MD LAB BLOOD ORDERAB LES Performing Organization Address City/State/[facility] [place] [address], [place] [address] * (ABNORMAL) Complete Blood Count WITHOUT Differential - in AM (10/24/2024 7:11 AM EST) White Blood Cell Count 12.4(H) 4.0 - 11.0 Thou/uL 10/24/2024 7:58 AM [facility] Platelet Count 360 150 - 450 Thou/uL 10/24/2024 7:58 AM [facility] Hemoglobin 9.3(L) 13.0 - 17.7 g/dL 10/24/2024 7:58 AM [facility] Hematocrit 30.1(L) 39.0 - 54.0 % 10/24/2024 7:58 AM [facility] Red Blood Cell Count 3.06(L) 4.50 - 6.20 Mil/uL 10/24/2024 7:58 AM [facility] MCV 98 80 - 100 fL 10/24/2024 7:58 AM [facility] MCH 30.4 27.0 - 31.0 pg 10/24/2024 7:58 AM [facility] MCHC 30.9 30.0 - 36.0 g/dL 10/24/2024 7:58 AM [facility] RDW 16.8(H) 11.5 - 14.5 % 10/24/2024 7:58 AM [facility] MPV 11.3 7.5 - 12.5 fL 10/24/2024 7:58 AM [facility] Blood Blood specimen / Unknown 10/24/2024 7:11 AM EST 10/24/2024 7:48 AM EST Neymar Mcfarland MD LAB BLOOD ORDERAB LES Performing Organization Address City/[facility]/[place] [address], [place] [address] * Phosphorus (Early AM) (10/24/2024 3:01 AM EST) Phosphorus 3.8 2.7 - 4.5 mg/dL 10/24/2024 3:36 AM [facility] Blood (Plasma/Serum) 10/24/2024 3:01 AM EST 10/24/2024 3:12 AM EST Macy Adam DO LAB BLOOD ORDERABLE S Performing Organization Address City/[facility]/[place] [address], [place] [address] * Magnesium (Routine) (10/24/2024 3:01 AM EST) Magnesium 1.8 1.6 - 2.7 mg/dL 10/24/2024 3:36 AM [facility] Blood (Plasma/Serum) 10/24/2024 3:01 AM EST 10/24/2024 3:12 AM EST Macy Adam DO [place] [address], [place] [address] * (ABNORMAL) Basic Metabolic Panel (Routine) (10/24/2024 3:01 AM EST) Glucose 128(H) 65 - 99 mg/dL 10/24/2024 3:36 AM [facility] Comment:Fasting: <100 mg/dL, Non-Fasting: <200 mg/dL (ADA 2005) Blood Urea Nitrogen (BUN) 67(H) 8 - 21 mg/dL 10/24/2024 3:36 AM [facility] Creatinine 3.8(H) 0.5 - 1.3 mg/dL 10/24/2024 3:36 AM [facility] eGFR 15(L) >59 10/24/2024 3:36 AM [facility] Comment:CKD-EPI (2020) in mL /min/1.73 sq meters. Sodium 143 136 - 145 mmol/L 10/24/2024 3:36 AM [facility] Potassium 4.4 3.4 - 5.3 mmol/L 10/24/2024 3:36 AM [facility] Chloride 107 98 - 107 mmol/L 10/24/2024 3:36 AM [facility] CO2 18(L) 22 - 33 mmol/L 10/24/2024 3:36 AM [facility] Anion Gap 18(H) 7 - 17 10/24/2024 3:36 AM [facility] Calcium 7.4(L) 8.7 - 10.5 mg/dL 10/24/2024 3:36 AM [facility] BUN/Creatinine Ratio 18 10.0 - 25.0 Ratio 10/24/2024 3:36 AM EST [facility] Blood (Plasma/Serum) 10/24/2024 3:01 AM EST 10/24/2024 3:12 AM EST Macy Adam DO LAB BLOOD ORDERABLE S Performing Organization Address [facility] de Phone Number [facility] [address] [place] [address], [facility] [address] [place] [address] * (ABNORMAL) POCT Glucose, Fingerstick (10/24/2024 1:53 AM EST) POC Glucose 155(H) 65 - 99 mg/dL 10/24/2024 3:46 AM EST Blood specimen / Unknown 10/24/2024 1:53 AM EST 10/24/2024 3:46 AM EST Fuad Winter MD POINT OF CARE TEST ORDERABLES Performing Organization Address [facility] Co de Phone Number HOSPITAL LAB See Below * Heparin Assay (Anti Xa) (10/23/2024 10:13 PM EST) Anti Xa 0.34 IU/mL 10/23/2024 11:19 PM EST [facility] Comment: (NOTE) Heparin Thromboembolic/Standard/Full Dose Protocol: [...] LAB BLOOD ORDERAB LES Performing Organization Address [facility]/State/[facility] [place] [address], [place] [address] * (ABNORMAL) POCT Glucose, Fingerstick (10/23/2024 9:02 PM EST) POC Glucose 155(H) 65 - 99 mg/dL 10/23/2024 9:02 PM EST Blood specimen / Unknown 10/23/2024 9:02 PM EST 10/23/2024 9:03 PM EST Fuad Winter MD POINT OF CARE TEST ORDERABLES HOSPITAL LAB See Below * (ABNORMAL) POCT Glucose, Fingerstick (10/23/2024 6:22 PM EST) Pathologist [facility] POC Glucose 168(H) 65 - 99 mg/dL 10/23/2024 6:23 PM EST Blood specimen / Unknown 10/23/2024 6:22 PM EST 10/23/2024 6:23 PM EST Fuad Winter MD POINT OF CARE TEST ORDERABLES Performing Organization Address City/[facility]/ZIP Co de Phone Number HOSPITAL LAB See Below * Magnesium (STAT) (10/23/2024 6:02 PM EST) [facility] Magnesium 1.8 1.6 - 2.7 mg/dL 10/23/2024 7:21 PM EST [facility] Blood (Plasma/Serum) 10/23/2024 6:02 PM EST 10/23/2024 6:47 PM EST Adam Mullen MD LAB BLOOD ORDERABL ES Performing Organization Address [facility] [place] [address], [place] [address] * Phosphorus (STAT) (10/23/2024 6:02 PM EST) [facility] Phosphorus 3.9 2.7 - 4.5 mg/dL 10/23/2024 7:21 PM EST [facility] Blood (Plasma/Serum) 10/23/2024 6:02 PM EST 10/23/2024 6:47 PM EST Adam Mullen MD LAB BLOOD ORDERABL ES Performing Organization Address [facility] [place] [address], [place] [address] * (ABNORMAL) Basic Metabolic Panel (STAT) (10/23/2024 6:02 PM EST) Glucose 173(H) 65 - 99 mg/dL 10/23/2024 7:21 PM [facility] Comment:Fasting: <100 mg/dL, Non-Fasting: <200 mg/dL (ADA 2004) Blood Urea Nitrogen (BUN) 71(H) 8 - 21 mg/dL 10/23/2024 7:21 PM [facility] Creatinine 4.1(H) 0.5 - 1.3 mg/dL 10/23/2024 7:21 PM [facility] eGFR 14(L) >59 10/23/2024 7:21 PM [facility] Comment:CKD-EPI (2020) in mL /min/1.73 sq meters. Sodium 145 136 - 145 mmol/L 10/23/2024 7:21 PM [facility] Potassium 5.0 3.4 - 5.3 mmol/L 10/23/2024 7:21 PM [facility] Chloride 109(H) 98 - 107 mmol/L 10/23/2024 7:21 PM [facility] CO2 21(L) 22 - 33 mmol/L 10/23/2024 7:21 PM [facility] Anion Gap 15 7 - 17 10/23/2024 7:21 PM [facility] Calcium 7.0(L) 8.7 - 10.5 mg/dL 10/23/2024 7:21 PM [facility] BUN/Creatinine Ratio 17 10.0 - 25.0 Ratio 10/23/2024 7:21 PM [facility] Blood (Plasma/Serum) 10/23/2024 6:02 PM EST 10/23/2024 6:47 PM EST Adam Mullen MD [place] [address], [place] [address] * ECG 12 lead (STAT) (10/23/2024 5:43 PM EST) Ventricular rate 73 BPM EKG [facility] Atrial rate [address] [facility] P-R interval 148 ms EKG [facility] QRS duration 80 ms EKG [facility] Q-T interval 460 ms EKG [facility] QTC calculation (Bazett) 507 ms EKG [facility] P axis 54 degrees EKG [facility] R axis 66 degrees EKG [facility] T axis 152 degrees EKG [facility] 10/23/2024 5:43 PM EST Narrative EKG [facility] - 10/24/2024 7:46 AM EST Normal sinus rhythm Nonspecific T wave abnormality Prolonged QT Abnormal ECG Confirmed by MD Wade John ([id number]) on 10/24/2024 7:46:04 AM Procedure Note Raciel Wade MD - 10/24/2024 Normal sinus rhythm Nonspecific T wave abnormality Prolonged QT Abnormal ECG Confirmed by MD Wade John ([id number]) on 10/24/2024 7:46:04 AM Bryant Gracia PA-C ECG ORDERABLES [facility] * Heparin Assay (Anti Xa) (10/23/2024 3:53 PM EST) Anti Xa 0.42 IU/mL 10/23/2024 5:30 PM EST [facility] Comment: (NOTE) Heparin Thromboembolic/Standard/Full Dose Protocol: [...] LAB BLOOD ORDERAB LES Performing Organization Address [facility]/State/[facility] [place] [address], [place] [address] * (ABNORMAL) POCT Glucose, Fingerstick (10/23/2024 12:59 PM EST) POC Glucose 158(H) 65 - 99 mg/dL 10/23/2024 1:00 PM EST Blood specimen / Unknown 10/23/2024 12:59 PM EST 10/23/2024 1:00 PM EST Fuad Winter MD POINT OF CARE TEST ORDERABLES HOSPITAL LAB See Below * Albumin (10/23/2024 10:31 AM EST) Albumin 3.5 3.4 - 4.8 g/dL 10/23/2024 12:13 PM [facility] Blood (Plasma/Serum) 10/23/2024 10:31 AM EST 10/23/2024 11:36 AM EST Neymar Mcfarland MD LAB BLOOD ORDERAB LES Performing Organization Address [facility] [place] [address], [place] [address] * (ABNORMAL) Calcium, Ionized (10/23/2024 10:31 AM EST) Calcium, Ionized 0.88(L) 1.17 - 1.33 mmol/L 10/23/2024 12:16 PM [facility] Blood Blood specimen / Unknown 10/23/2024 10:31 AM EST 10/23/2024 11:36 AM EST Neymar Mcfarland MD LAB BLOOD ORDERAB LES Performing Organization Address [facility] [place] [address], [place] [address] * (ABNORMAL) Calcium, Total (10/23/2024 10:31 AM EST) Calcium 7.4(L) 8.7 - 10.5 mg/dL 10/23/2024 12:13 PM [facility] Blood (Plasma/Serum) 10/23/2024 10:31 AM EST 10/23/2024 11:36 AM EST Neymar Mcfarland MD LAB BLOOD ORDERAB LES Performing Organization Address City/[facility]/[place] [address], [address] [address] * (ABNORMAL) PTH, Intact (10/23/2024 10:31 AM EST) PTH, Intact 579(H) 15 - 65 pg/mL 10/23/2024 12:23 PM EST [facility] Blood (Plasma/Serum) 10/23/2024 10:31 AM EST 10/23/2024 11:36 AM EST Neymar Mcfarland MD LAB BLOOD ORDERAB LES Performing Organization Address [facility]/[place] [address], [place] [address] * POCT Glucose, Fingerstick (10/23/2024 8:36 AM EST) Pathologist [facility] POC Glucose 82 65 - 99 mg/dL 10/23/2024 8:37 AM EST Blood specimen / Unknown 10/23/2024 8:36 AM EST 10/23/2024 8:37 AM EST Fuad Winter MD POINT OF CARE TEST ORDERABLES HOSPITAL LAB See Below * (ABNORMAL) LIPID PANEL (10/23/2024 6:05 AM EST) Cholesterol, Total 110 <200 mg/dL 2024 8:30 AM [facility] Triglycerides 141 <150 mg/dL 10/23/2024 8:30 AM [facility] Cholesterol, HDL 30(L) >39 mg/dL 10/23/19 8:30 AM [facility] Estimated LDL 52 <130 mg/dL 10/23/2024 8:30 AM [facility] Comment: NCEP Guidelines: ?< 100 mg/dL ??Optimal 100 - 129 mg/dL ??Near Optimal/Above Optimal 130 - 159 mg/dL ??Borderline High 160 - 189 mg/dL ??High ??>/= 190 mg/dL ??Very High Cholesterol/HDL Ratio 3.7 0.0 - 5.0 Ratio 10/23/2024 8:30 AM [facility] Comment: Relative Risk ? Ratio - Male ? Ratio - Female ?0.5 ?3.4 ?3.3 ?1.0 ?5.0 ?4.4 ?2.0 ?9.6 ?7.1 ?3.0 ? 23.4 ? 11.0 Plasma/Serum 10/23/2024 6:05 AM EST 10/23/2024 7:46 AM EST Adilia Woo MD LAB BLOOD ORDERABLES Performing Organization Address City/State/[facility] [place] [address], [place] [address] * Heparin Assay (Anti Xa) (10/23/2024 6:05 AM EST) Anti Xa 0.54 IU/mL 10/23/2024 8:02 AM [facility] Comment: (NOTE) Heparin Thromboembolic/Standard/Full Dose Protocol: [...] LAB BLOOD ORDERABLES Performing Organization Address City/State/[facility] [place] [address], [place] [address] * Phosphorus (AM) (10/23/2024 6:05 AM EST) Phosphorus 3.9 2.7 - 4.5 mg/dL 10/23/2024 8:30 AM [facility] Blood (Plasma/Serum) 10/23/2024 6:05 AM EST 10/23/2024 7:46 AM EST Neymar Mcfarland MD LAB BLOOD ORDERAB LES Performing Organization Address [facility] [place] [address], [place] [address] * Magnesium (AM) (10/23/2024 6:05 AM EST) Magnesium 1.8 1.6 - 2.7 mg/dL 10/23/2024 8:30 AM [facility] Blood (Plasma/Serum) 10/23/2024 6:05 AM EST 10/23/2024 7:46 AM EST Neymar Mcfarland MD LAB BLOOD ORDERAB LES Performing Organization Address City/[facility] [place] [address], [place] [address] * (ABNORMAL) Basic Metabolic Panel (AM) (10/23/2024 6:05 AM EST) Glucose 66 65 - 99 mg/dL 10/23/2024 8:30 AM [facility] Comment:Fasting: <100 mg/dL, Non-Fasting: <200 mg/dL (ADA 2005) Blood Urea Nitrogen (BUN) 74(H) 8 - 21 mg/dL 10/23/2024 8:30 AM [facility] Creatinine 4.1(H) 0.5 - 1.3 mg/dL 10/23/2024 8:30 AM [facility] eGFR 14(L) >59 10/23/2024 8:30 AM [facility] Comment:CKD-EPI (2020) in mL /min/1.73 sq meters. Sodium 147(H) 136 - 145 mmol/L 10/23/2024 8:30 AM [facility] Potassium 4.0 3.4 - 5.3 mmol/L 10/23/2024 8:30 AM [facility] Chloride 110(H) 98 - 107 mmol/L 10/23/2024 8:30 AM [facility] CO2 18(L) 22 - 33 mmol/L 10/23/2024 8:30 AM [facility] Anion Gap 19(H) 7 - 17 10/23/2024 8:30 AM [facility] Calcium 7.3(L) 8.7 - 10.5 mg/dL 10/23/2024 8:30 AM [facility] BUN/Creatinine Ratio 18 10.0 - 25.0 Ratio 10/23/2024 8:30 AM [facility] Blood (Plasma/Serum) 10/23/2024 6:05 AM EST 10/23/2024 7:46 AM EST Neymar Mcfarland MD [place] [address], [place] [address] * (ABNORMAL) Complete Blood Count WITHOUT Differential - in AM (10/23/2024 6:05 AM EST) White Blood Cell Count 11.2(H) 4.0 - 11.0 Thou/uL 10/23/2024 8:29 AM [facility] Platelet Count 374 150 - 450 Thou/uL 10/23/2024 8:29 AM [facility] Hemoglobin 9.6(L) 13.0 - 17.7 g/dL 10/23/2024 8:29 AM [facility] Hematocrit 30.5(L) 39.0 - 54.0 % 10/23/2024 8:29 AM [facility] Red Blood Cell Count 3.17(L) 4.50 - 6.20 Mil/uL 10/23/2024 8:29 AM [facility] MCV 96 80 - 100 fL 10/23/2024 8:29 AM [facility] MCH 30.3 27.0 - 31.0 pg 10/23/2024 8:29 AM [facility] MCHC 31.5 30.0 - 36.0 g/dL 10/23/2024 8:29 AM EST [facility] RDW 16.4(H) 11.5 - 14.5 % 10/23/2024 8:29 AM EST [facility] MPV 11.6 7.5 - 12.5 fL 10/23/2024 8:29 AM EST [facility] Blood Blood specimen / Unknown 10/23/2024 6:05 AM EST 10/23/2024 7:46 AM EST Neymar Mcfarland MD LAB BLOOD ORDERAB LES Performing Organization Address City/[facility]/[place] [address], [place] [address] * POCT Glucose, Fingerstick (10/23/2024 1:59 AM EST) POC Glucose 83 65 - 99 mg/dL 10/23/2024 2:00 AM EST Blood specimen / Unknown 10/23/2024 1:59 AM EST 10/23/2024 2:00 AM EST Fuad Winter MD POINT OF CARE TEST ORDERABLES Performing Organization Address City/[facility] Co de Phone Number [facility] LAB See Below * (ABNORMAL) POCT Glucose, Fingerstick (10/22/2024 8:40 PM EST) POC Glucose 145(H) 65 - 99 mg/dL 10/22/2024 8:53 PM EST Blood specimen / Unknown 10/22/2024 8:40 PM EST 10/22/2024 8:53 PM EST Fuad Winter MD POINT OF CARE TEST ORDERABLES [facility] LAB See Below * (ABNORMAL) POCT Glucose, Fingerstick (10/22/2024 6:12 PM EST) POC Glucose 165(H) 65 - 99 mg/dL 10/22/2024 6:12 PM EST Blood specimen / Unknown 10/22/2024 6:12 PM EST 10/22/2024 6:13 PM EST Fuad Winter MD POINT OF CARE TEST ORDERABLES Performing Organization Address [facility] LAB See Below * (ABNORMAL) POCT Glucose, Fingerstick (10/22/2024 1:10 PM EST) POC Glucose 154(H) 65 - 99 mg/dL 10/22/2024 1:10 PM EST Blood specimen / Unknown 10/22/2024 1:10 PM EST 10/22/2024 1:11 PM EST Fuad Winter MD POINT OF CARE TEST ORDERABLES Performing Organization Address [facility] LAB See Below * (ABNORMAL) POCT Glucose, Fingerstick (10/22/2024 9:10 AM EST) POC Glucose 139(H) 65 - 99 mg/dL 10/22/2024 9:11 AM EST Blood specimen / Unknown 10/22/2024 9:10 AM EST 10/22/2024 9:11 AM EST Fuad Winter MD POINT OF CARE TEST ORDERABLES Performing Organization Address [facility] LAB See Below * Heparin Assay (Anti Xa) (10/22/2024 8:12 AM EST) Anti Xa 0.37 IU/mL 10/22/2024 8:35 AM EST [facility] Comment: (NOTE) Heparin Thromboembolic/Standard/Full Dose Protocol: [...] EST Adilia Woo MD LAB BLOOD ORDERABLES [facility] [address] [place] [address], [facility] [address] [place] [address] * (ABNORMAL) Complete Blood Count WITHOUT Differential - in AM (10/22/2024 8:12 AM EST) White Blood Cell Count 10.7 4.0 - 11.0 Thou/uL 10/22/2024 8:44 AM [facility] Platelet Count 337 150 - 450 Thou/uL 10/22/2024 8:44 AM [facility] Hemoglobin 9.4(L) 13.0 - 17.7 g/dL 10/22/2024 8:44 AM [facility] Hematocrit 30.3(L) 39.0 - 54.0 % 10/22/2024 8:44 AM [facility] Red Blood Cell Count 3.13(L) 4.50 - 6.20 Mil/uL 10/22/2024 8:44 AM [facility] MCV 97 80 - 100 fL 10/22/2024 8:44 AM [facility] MCH 30.0 27.0 - 31.0 pg 10/22/2024 8:44 AM [facility] MCHC 31.0 30.0 - 36.0 g/dL 10/22/2024 8:44 AM [facility] RDW 16.2(H) 11.5 - 14.5 % 10/22/2024 8:44 AM [facility] MPV 11.3 7.5 - 12.5 fL 10/22/2024 8:44 AM [facility] Blood Blood specimen / Unknown 10/22/2024 8:12 AM EST 10/22/2024 8:18 AM EST Adilia Woo MD LAB BLOOD ORDERABLES Performing Organization Address City/State/[facility] [place] [address], [place] [address] * Magnesium (AM) (10/22/2024 8:12 AM EST) Pathologist [facility] Magnesium 1.7 1.6 - 2.7 mg/dL 10/22/2024 8:54 AM [facility] Blood (Plasma/Serum) 10/22/2024 8:12 AM EST 10/22/2024 8:18 AM EST Adilia Woo MD [place] [address], [place] [address] * (ABNORMAL) Basic Metabolic Panel (AM) (10/22/2024 8:12 AM EST) Glucose 124(H) 65 - 99 mg/dL 10/22/2024 8:54 AM [facility] Comment:Fasting: <100 mg/dL, Non-Fasting: <200 mg/dL (ADA 2004) Blood Urea Nitrogen (BUN) 82(H) 8 - 21 mg/dL 10/22/2024 8:54 AM [facility] Creatinine 4.3(H) 0.5 - 1.3 mg/dL 10/22/2024 8:54 AM [facility] eGFR 13(L) >59 10/22/2024 8:54 AM [facility] Comment:CKD-EPI (2020) in mL /min/1.73 sq meters. Sodium 145 136 - 145 mmol/L 10/22/2024 8:54 AM [facility] Potassium 4.4 3.4 - 5.3 mmol/L 10/22/2024 8:54 AM [facility] Chloride 110(H) 98 - 107 mmol/L 10/22/2024 8:54 AM [facility] CO2 17(L) 22 - 33 mmol/L 10/22/2024 8:54 AM [facility] Anion Gap 18(H) 7 - 17 10/22/2024 8:54 AM [facility] Calcium 7.1(L) 8.7 - 10.5 mg/dL 10/22/2024 8:54 AM [facility] BUN/Creatinine Ratio 19 10.0 - 25.0 Ratio 10/22/2024 8:54 AM [facility] Blood (Plasma/Serum) 10/22/2024 8:12 AM EST 10/22/2024 8:18 AM EST Adilia Woo MD [place] [address], [address] [place] [address] * (ABNORMAL) POCT Glucose, Fingerstick (10/22/2024 1:23 AM EST) POC Glucose 122(H) 65 - 99 mg/dL 10/22/2024 1:28 AM EST Blood specimen / Unknown 10/22/2024 1:23 AM EST 10/22/2024 1:28 AM EST Fuad Winter MD POINT OF CARE TEST ORDERABLES HOSPITAL LAB See Below * ECG 12 lead (10/21/2024 9:45 PM EST) [facility] Ventricular rate 80 BPM EKG [facility] Atrial rate [address] [facility] Q-T interval 438 ms EKG [facility] QTC calculation (Bazett) 506 ms EKG [facility] P axis 52 degrees EKG [facility] R axis 59 degrees EKG [facility] T axis 229 degrees EKG [facility] 10/21/2024 9:45 PM EST Narrative EKG [facility] - 10/22/2024 7:57 AM EST Normal [...] Hanson MD ECG ORDERABLES Performing Organization Address City/[facility]/ZIP Co de Phone Number [facility] * (ABNORMAL) POCT Glucose, Fingerstick (10/21/2024 9:04 PM EST) POC Glucose 190(H) 65 - 99 mg/dL 10/21/2024 9:09 PM EST Blood specimen / Unknown 10/21/2024 9:04 PM EST 10/21/2024 9:09 PM EST Fuad Winter MD POINT OF CARE TEST ORDERABLES Performing Organization Address [facility] Number [facility] LAB See Below * (ABNORMAL) POCT Glucose, Fingerstick (10/21/2024 6:23 PM EST) POC Glucose 140(H) 65 - 99 mg/dL 10/21/2024 6:24 PM EST Blood specimen / Unknown 10/21/2024 6:23 PM EST 10/21/2024 6:24 PM EST Fuad Winter MD POINT OF CARE TEST ORDERABLES Performing Organization Address [facility] Number [facility] LAB See Below * (ABNORMAL) POCT Glucose, Fingerstick (10/21/2024 1:38 PM EST) POC Glucose 270(H) 65 - 99 mg/dL 10/21/2024 1:39 PM EST Blood specimen / Unknown 10/21/2024 1:38 PM EST 10/21/2024 1:39 PM EST Fuad Winter MD POINT OF CARE TEST ORDERABLES Performing Organization Address [facility] Number [facility] LAB See Below * (ABNORMAL) POCT Glucose, [...] Xa 0.42 IU/mL 10/21/2024 9:49 AM EST [facility] Comment: (NOTE) Heparin Thromboembolic/Standard/Full Dose Protocol: [...] MD LAB BLOOD ORDERABLES Performing Organization Address [facility] [place] [address], [place] [address] * (ABNORMAL) POCT Glucose, Fingerstick (10/21/2024 8:35 AM EST) POC Glucose 219(H) 65 - 99 mg/dL 10/21/2024 8:36 AM EST Blood specimen / Unknown 10/21/2024 8:35 AM EST 10/21/2024 8:36 AM EST Fuad Winter MD POINT OF CARE TEST ORDERABLES Performing Organization Address [facility] Phone Number HOSPITAL LAB See Below * (ABNORMAL) POCT Glucose, Fingerstick (10/21/2024 8:03 AM EST) POC Glucose 181(H) 65 - 99 mg/dL 10/21/2024 8:04 AM EST Blood specimen / Unknown 10/21/2024 8:03 AM EST 10/21/2024 8:04 AM EST Fuad Winter MD POINT OF CARE TEST ORDERABLES Performing Organization Address [facility] de Phone Number HOSPITAL LAB See Below * (ABNORMAL) Basic Metabolic Panel (Routine) (10/21/2024 3:09 AM EST) Glucose 193(H) 65 - 99 mg/dL 10/21/2024 3:41 AM [facility] Comment:Fasting: <100 mg/dL, Non-Fasting: <200 mg/dL (ADA 2004) Blood Urea Nitrogen (BUN) 83(H) 8 - 21 mg/dL 10/21/2024 3:41 AM [facility] Creatinine 4.3(H) 0.5 - 1.3 mg/dL 10/21/2024 3:41 AM [facility] eGFR 13(L) >59 10/21/2024 3:41 AM [facility] Comment:CKD-EPI (2020) in mL /min/1.73 sq meters. Sodium 140 136 - 145 mmol/L 10/21/2024 3:41 AM [facility] Potassium 4.5 3.4 - 5.3 mmol/L 10/21/2024 3:41 AM [facility] Chloride 109(H) 98 - 107 mmol/L 10/21/2024 3:41 AM [facility] CO2 15(L) 22 - 33 mmol/L 10/21/2024 3:41 AM [facility] Anion Gap 16 7 - 17 10/21/2024 3:41 AM [facility] Calcium 7.1(L) 8.7 - 10.5 mg/dL 10/21/2024 3:41 AM [facility] BUN/Creatinine Ratio 19 10.0 - 25.0 Ratio 10/21/2024 3:41 AM [facility] Blood (Plasma/Serum) 10/21/2024 3:09 AM EST 10/21/2024 3:13 AM EST Magdaleno Crowder MD [place] [address], [address] [address] * (ABNORMAL) Complete Blood Count WITHOUT Differential - Early AM (10/21/2024 3:09 AM EST) White Blood Cell Count 10.8 4.0 - 11.0 Thou/uL 10/21/2024 3:18 AM [facility] Platelet Count 299 150 - 450 Thou/uL 10/21/2024 3:18 AM [facility] Hemoglobin 8.9(L) 13.0 - 17.7 g/dL 10/21/2024 3:18 AM [facility] Hematocrit 28.9(L) 39.0 - 54.0 % 10/21/2024 3:18 AM [facility] Red Blood Cell Count 2.97(L) 4.50 - 6.20 Mil/uL 10/21/2024 3:18 AM [facility] MCV 97 80 - 100 fL 10/21/2024 3:18 AM [facility] MCH 30.0 27.0 - 31.0 pg 10/21/2024 3:18 AM [facility] MCHC 30.8 30.0 - 36.0 g/dL 10/21/2024 3:18 AM [facility] RDW 16.3(H) 11.5 - 14.5 % 10/21/2024 3:18 AM [facility] MPV 11.0 7.5 - 12.5 fL 10/21/2024 3:18 AM [facility] Blood Blood specimen / Unknown 10/21/2024 3:09 AM EST 10/21/2024 3:13 AM EST Magdaleno Crowder MD LAB BLOOD ORDERABLES Performing Organization Address City/State/[facility] [place] [address], [place] [address] * Heparin Assay (Anti Xa) (10/21/2024 3:09 AM EST) Anti Xa 0.35 IU/mL 10/21/2024 3:31 AM [facility] Comment: (NOTE) Heparin Thromboembolic/Standard/Full Dose Protocol: [...] MD LAB BLOOD ORDERABLES Performing Organization Address [facility]/State/[facility] [place] [address], [facility] [address] [place] [address] * (ABNORMAL) POCT Glucose, Fingerstick (10/21/2024 2:23 AM EST) POC Glucose 198(H) 65 - 99 mg/dL 10/21/2024 2:23 AM EST Blood specimen / Unknown 10/21/2024 2:23 AM EST 10/21/2024 2:24 AM EST Fuad Winter MD POINT OF CARE TEST ORDERABLES Performing Organization Address [facility] Phone Number HOSPITAL LAB See Below * (ABNORMAL) POCT Glucose, Fingerstick (10/20/2024 8:47 PM EST) Pathologist [facility] POC Glucose 218(H) 65 - 99 mg/dL 10/20/2024 8:50 PM EST Blood specimen / Unknown 10/20/2024 8:47 PM EST 10/20/2024 8:50 PM EST Fuad Winter MD POINT OF CARE TEST ORDERABLES Performing Organization Address [facility] Phone Number HOSPITAL LAB See Below * Heparin Assay (Anti Xa) (10/20/2024 8:34 PM EST) Pathologist [facility] Anti Xa 0.29 IU/mL 10/20/2024 9:00 PM EST [facility] Comment: (NOTE) Heparin Thromboembolic/Standard/Full Dose Protocol: [...] LAB BLOOD ORDERABLES Performing Organization Address City/State/[facility] [place] [address], [place] [address] * (ABNORMAL) POCT Glucose, Fingerstick (10/20/2024 5:51 PM EST) POC Glucose 175(H) 65 - 99 mg/dL 10/20/2024 5:52 PM EST Blood specimen / Unknown 10/20/2024 5:51 PM EST 10/20/2024 5:52 PM EST Fuad Winter MD POINT OF CARE TEST ORDERABLES Performing Organization Address [facility] de Phone Number [facility] LAB See Below * (ABNORMAL) POCT Glucose, Fingerstick (10/20/2024 3:47 PM EST) POC Glucose 222(H) 65 - 99 mg/dL 10/20/2024 3:52 PM EST Blood specimen / Unknown 10/20/2024 3:47 PM EST 10/20/2024 3:52 PM EST Fuad Winter MD POINT OF CARE TEST ORDERABLES Performing Organization Address [facility] de Phone Number [facility] LAB See Below * (ABNORMAL) POCT Glucose, Fingerstick (10/20/2024 11:43 AM EST) POC Glucose 210(H) 65 - 99 mg/dL 10/20/2024 11:45 AM EST Blood specimen / Unknown 10/20/2024 11:43 AM EST 10/20/2024 11:44 AM EST Fuad Winter MD POINT OF CARE TEST ORDERABLES Performing Organization Address [facility] Phone Number [facility] LAB See Below * (ABNORMAL) Blood Gas, Venous (10/20/2024 10:39 AM EST) Pathologist [facility] Venous Blood PH 7.29(L) 7.33 - 7.43 10/20/2024 10:54 AM EST [facility] Venous pCO2 39 35 - 50 mmHG 10/20/2024 10:54 AM [facility] Venous pO2 49 0 - 60 mmHG 10/20/2024 10:54 AM EST [facility] Venous Total CO2 20(L) 23 - 29 mmol/L 10/20/2024 10:54 AM EST [facility] Respiratory Info NASAL 4 L/MIN 10/20/2024 10:39 AM EST Base Deficiency 7.2 mmol/L 10:54 AM [facility] Comment:Reference Range: Neg ative 2 to Positive 3 Blood Blood specimen / Unknown 10/20/2024 10:39 AM EST 10/20/2024 10:47 AM EST Kristopher Hickey MD LAB BLOOD ORDERAB LES Performing Organization Address [facility] Co de Phone Number [address] [address], [address] [address] * (ABNORMAL) POCT Glucose, Fingerstick (10/20/2024 10:37 AM EST) POC Glucose 187(H) 65 - 99 mg/dL 10/20/2024 10:37 AM EST Blood specimen / Unknown 10/20/2024 10:37 AM EST 10/20/2024 10:38 AM EST Fuad Winter MD POINT OF CARE TEST ORDERABLES Performing Organization Address City/[facility] Co de Phone Number HOSPITAL LAB See Below * Lactic Acid, Plasma (STAT) (10/20/2024 10:00 AM EST) Lactic Acid 0.8 0.5 - 1.9 mmol/L 10/20/2024 10:37 AM EST [facility] Blood Plasma specimen / Unknown 10/20/2024 10:00 AM EST 10/20/2024 10:07 AM EST Kristopher Hickey MD LAB BLOOD ORDERAB LES Performing Organization Address [facility] Co de Phone Number [address] [address], [address] [address] * (ABNORMAL) POCT Glucose, Fingerstick (10/20/2024 7:48 AM EST) POC Glucose 156(H) 65 - 99 mg/dL 10/20/2024 7:49 AM EST Blood specimen / Unknown 10/20/2024 7:48 AM EST 10/20/2024 7:49 AM EST Fuad Winter MD POINT OF CARE TEST ORDERABLES Performing Organization Address City/[facility]/ZIP Co de Phone Number [facility] LAB See Below * (ABNORMAL) POCT Glucose, Fingerstick (10/20/2024 5:43 AM EST) POC Glucose 148(H) 65 - 99 mg/dL 10/20/2024 5:44 AM EST Blood specimen / Unknown 10/20/2024 5:43 AM EST 10/20/2024 5:44 AM EST Fuad Winter MD POINT OF CARE TEST ORDERABLES Performing Organization Address City/[facility]/ZIP Co de Phone Number [facility] LAB See Below * (ABNORMAL) POCT Glucose, Fingerstick (10/20/2024 2:15 AM EST) Pathologist [facility] POC Glucose 219(H) 65 - 99 mg/dL 10/20/2024 2:16 AM EST Blood specimen / Unknown 10/20/2024 2:15 AM EST 10/20/2024 2:16 AM EST Fuad Witner MD POINT OF CARE TEST ORDERABLES Performing Organization Address [facility] Co de Phone Number [facility] LAB See Below * Phosphorus (Routine) (10/19/2024 11:59 PM EST) [facility] Phosphorus 4.4 2.7 - 4.5 mg/dL 10/20/2024 1:00 AM [facility] Blood (Plasma/Serum) 10/19/2024 11:59 PM EST 10/20/2024 12:25 AM EST Kristopher Hickey MD LAB BLOOD ORDERAB LES Performing Organization Address [facility] [place] [address], [place] [address] * Magnesium (Routine) (10/19/2024 11:59 PM EST) Pathologist [facility] Magnesium 1.6 1.6 - 2.7 mg/dL 10/20/2024 1:00 AM [facility] Blood (Plasma/Serum) 10/19/2024 11:59 PM EST 10/20/2024 12:25 AM EST Kristopher Hickey MD LAB BLOOD ORDERAB LES Performing Organization Address City/State/[facility] [place] [address], [address] [address] * (ABNORMAL) Complete Blood Count, with Differential (10/19/2024 11:59 PM EST) White Blood Cell Count 11.5(H) 4.0 - 11.0 Thou/uL 10/20/2024 12:32 AM [facility] Platelet Count 271 150 - 450 Thou/uL 10/20/2024 12:32 AM [facility] Hemoglobin 8.9(L) 13.0 - 17.7 g/dL 10/20/2024 12:32 AM [facility] Hematocrit 28.6(L) 39.0 - 54.0 % 10/20/2024 12:32 AM [facility] Red Blood Cell Count 2.93(L) 4.50 - 6.20 Mil/uL 10/20/2024 12:32 AM [facility] MCV 98 80 - 100 fL 10/20/2024 12:32 AM [facility] MCH 30.4 27.0 - 31.0 pg 10/20/2024 12:32 AM [facility] MCHC 31.1 30.0 - 36.0 g/dL 10/20/2024 12:32 AM [facility] RDW 16.5(H) 11.5 - 14.5 % 10/20/2024 12:32 AM [facility] MPV 11.3 7.5 - 12.5 fL 10/20/2024 12:32 AM [facility] Neutrophils Auto 80.7 % 10/20/19 12:32 AM [facility] Immature Granulocytes 0.6 % 10/20/2024 12:32 AM [facility] Lymphocytes Auto 11.6 % 10/20/19 12:32 AM [facility] Monocytes Auto 6.7 % 10/20/2024 12:32 AM [facility] Eosinophils Auto 0.2 % 10/20/19 12:32 AM [facility] Basophils Auto 0.2 % 10/20/2024 12:32 AM [facility] Abs Neutrophils Auto 9.25(H) 2.00 - 7.50 Thou/uL 10/20/2024 12:32 AM [facility] Abs Immature Granulocytes 0.07 0.00 - 0.10 Thou/uL 10/20/2024 12:32 AM [facility] Abs Lymphocytes Auto 1.33(L) 1.50 - 4.50 Thou/uL 10/20/2024 12:32 AM [facility] Abs Monocytes Auto 0.77 0.20 - 1.50 Thou/uL 10/20/2024 12:32 AM [facility] Abs Eosinophils Auto 0.02 0.00 - 0.70 Thou/uL 10/20/2024 12:32 AM [facility] Abs Basophils Auto 0.02 0.00 - 0.20 Thou/uL 10/20/2024 12:32 AM [facility] Blood Blood specimen / Unknown 10/19/2024 11:59 PM EST 10/20/2024 12:25 AM EST Fuad Winter MD LAB [place] [address], [place] [address] * (ABNORMAL) Basic Metabolic Panel (Routine) (10/19/2024 11:59 PM EST) Glucose 183(H) 65 - 99 mg/dL 10/20/2024 1:00 AM [facility] Comment:Fasting: <100 mg/dL, Non-Fasting: <200 mg/dL (ADA 2005) Blood Urea Nitrogen (BUN) 86(H) 8 - 21 mg/dL 10/20/2024 1:00 AM [facility] Creatinine 4.7(H) 0.5 - 1.3 mg/dL 10/20/2024 1:00 AM [facility] eGFR 12(L) >59 10/20/2024 1:00 AM [facility] Comment:CKD-EPI (2020) in mL /min/1.73 sq meters. Sodium 140 136 - 145 mmol/L 10/20/2024 1:00 AM [facility] Potassium 4.4 3.4 - 5.3 mmol/L 10/20/2024 1:00 AM [facility] Chloride 106 98 - 107 mmol/L 10/20/2024 1:00 AM [facility] CO2 14(L) 22 - 33 mmol/L 10/20/2024 1:00 AM [facility] Anion Gap 20(H) 7 - 17 10/20/2024 1:00 AM [facility] Calcium 7.2(L) 8.7 - 10.5 mg/dL 10/20/2024 1:00 AM [facility] BUN/Creatinine Ratio 18 10.0 - 25.0 Ratio 10/20/2024 1:00 AM [facility] Blood (Plasma/Serum) 10/19/2024 11:59 PM EST 10/20/2024 12:25 AM EST Magdaleno Crowder MD [place] [address], [place] [address] * Heparin Assay (Anti Xa) (10/19/2024 11:59 PM EST) Anti Xa 0.45 IU/mL 10/20/2024 12:49 AM [facility] Comment: (NOTE) Heparin Thromboembolic/Standard/Full Dose Protocol: [...] BLOOD ORDERAB LES Performing Organization Address City/State/[facility] [place] [address], [place] [address] * (ABNORMAL) POCT Glucose, Fingerstick (10/19/2024 8:00 PM EST) POC Glucose 132(H) 65 - 99 mg/dL 10/20/2024 2:16 AM EST Blood specimen / Unknown 10/19/2024 8:00 PM EST 10/20/2024 2:16 AM EST Fuad Winter MD POINT OF CARE TEST ORDERABLES Performing Organization Address [facility] LAB See Below * (ABNORMAL) POCT Glucose, Fingerstick (10/19/2024 6:53 PM EST) POC Glucose 165(H) 65 - 99 mg/dL 10/19/2024 6:54 PM EST Blood specimen / Unknown 10/19/2024 6:53 PM EST 10/19/2024 6:54 PM EST Fuad Winter MD POINT OF CARE TEST ORDERABLES Performing Organization Address [facility] LAB See Below * (ABNORMAL) POCT Glucose, Fingerstick (10/19/2024 5:42 PM EST) POC Glucose 114(H) 65 - 99 mg/dL 10/19/2024 5:43 PM EST Blood specimen / Unknown 10/19/2024 5:42 PM EST 10/19/2024 5:43 PM EST Fuad Winter MD POINT OF CARE TEST ORDERABLES Performing Organization Address [facility] LAB See Below * (ABNORMAL) POCT Glucose, Fingerstick (10/19/2024 4:33 PM EST) POC Glucose 159(H) 65 - 99 mg/dL 10/19/2024 4:34 PM EST Blood specimen / Unknown 10/19/2024 4:33 PM EST 10/19/2024 4:34 PM EST Fuad Winter MD POINT OF CARE TEST ORDERABLES Performing Organization Address [facility] LAB See Below * (ABNORMAL) Basic Metabolic Panel (10/19/2024 3:47 PM EST) Glucose 126(H) 65 - 99 mg/dL 10/19/2024 4:58 PM [facility] Comment:Fasting: <100 mg/dL, Non-Fasting: <200 mg/dL (ADA 2004) Blood Urea Nitrogen (BUN) 81(H) 8 - 21 mg/dL 10/19/2024 4:58 PM [facility] Creatinine 4.6(H) 0.5 - 1.3 mg/dL 10/19/2024 4:58 PM [facility] eGFR 12(L) >59 10/19/2024 4:58 PM [facility] Comment:CKD-EPI (2020) in mL /min/1.73 sq meters. Sodium 143 136 - 145 mmol/L 10/19/2024 4:58 PM [facility] Potassium 4.4 3.4 - 5.3 mmol/L 10/19/2024 4:58 PM [facility] Chloride 109(H) 98 - 107 mmol/L 10/19/2024 4:58 PM [facility] CO2 15(L) 22 - 33 mmol/L 10/19/2024 4:58 PM [facility] Anion Gap 19(H) 7 - 17 10/19/2024 4:58 PM [facility] Calcium 7.0(L) 8.7 - 10.5 mg/dL 10/19/2024 4:58 PM [facility] BUN/Creatinine Ratio 18 10.0 - 25.0 Ratio 10/19/2024 4:58 PM [facility] Blood (Plasma/Serum) 10/19/2024 3:47 PM EST 10/19/2024 4:16 PM EST Pushpa Gallegos MD [place] [address], [place] [address] * (ABNORMAL) Hemoglobin and Hematocrit (10/19/2024 2:25 PM EST) Hematocrit 32.3(L) 39.0 - 54.0 % 10/19/2024 3:39 PM [facility] Hemoglobin 9.9(L) 13.0 - 17.7 g/dL 10/19/2024 3:39 PM EST [facility] Blood Blood specimen / Unknown 10/19/2024 2:25 PM EST 10/19/2024 3:31 PM EST Kristopher Hickey MD LAB BLOOD ORDERAB LES Performing Organization Address City/State/[facility] Co de Phone Number [facility] [address] [place] [address], [facility] [address] [place] [address] * Heparin Assay (Anti Xa) (10/19/2024 2:25 PM EST) Anti Xa 0.52 IU/mL 10/19/2024 3:44 PM [facility] Comment: (NOTE) Heparin Thromboembolic/Standard/Full Dose Protocol: [...] LAB BLOOD ORDERAB LES Performing Organization Address [facility]/State/[facility] [place] [address], [place] [address] * (ABNORMAL) Blood Gas, Venous (10/19/2024 2:25 PM EST) Venous Blood PH 7.32(L) 7.33 - 7.43 10/19/2024 3:10 PM [facility] Venous pCO2 31(L) 35 - 50 mmHG 10/19/2024 3:10 PM [facility] Venous pO2 <30 0 - 60 mmHG 10/19/2024 3:10 PM [facility] Venous Total CO2 17(L) 23 - 29 mmol/L 10/19/2024 3:10 PM [facility] Respiratory Info VM 50% 10/19/19 2:25 PM EST Base Deficiency 9.0 mmol/L 3:10 PM [facility] Comment:Reference Range: Neg ative 2 to Positive 3 Blood Blood specimen / Unknown 10/19/2024 2:25 PM EST 10/19/2024 2:56 PM EST Pushpa Gallegos MD LAB BLOOD ORDERABLES Performing Organization Address [facility] Co de Phone Number [address] [address], [address] [address] * (ABNORMAL) POCT Glucose, Fingerstick (10/19/2024 1:52 PM EST) POC Glucose 133(H) 65 - 99 mg/dL 10/19/2024 1:53 PM EST Blood specimen / Unknown 10/19/2024 1:52 PM EST 10/19/2024 1:53 PM EST Fuad Winter MD POINT OF CARE TEST ORDERABLES Performing Organization Address [facility] Co de Phone Number [facility] See Below * (ABNORMAL) POCT Glucose, Fingerstick (10/19/2024 11:40 AM EST) POC Glucose 145(H) 65 - 99 mg/dL 10/19/2024 11:41 AM EST Blood specimen / Unknown 10/19/2024 11:40 AM EST 10/19/2024 11:41 AM EST Fuad Winter MD POINT OF CARE TEST ORDERABLES Performing Organization Address [facility] Co de Phone Number [facility] See Below * B-Hydroxybutyrate (10/19/2024 11:34 AM EST) B-Hydroxybutyrate 0.26 <0.28 mmol/L 10/19/2024 4:15 PM EST [facility] Comment: In the [...] MD LAB BLOOD ORDERABLES Performing Organization Address City/[facility]/[place] [address], [place] [address] * (ABNORMAL) High Sensitivity Troponin T (10/19/2024 11:34 AM EST) Pathologist [facility] High Sensitivity Troponin T 4,276(HH) <23 ng/L 10/19/2024 3:44 PM [facility] Comment:Recurring Critical R esult. Previously phoned. Delta (Change) 2,446(H) <3 10/19/2024 3:44 PM [facility] Comment:Increased Plasma/Serum 10/19/2024 11:3 4 AM EST 10/19/2024 11:54 AM EST Pushpa Gallegos MD LAB BLOOD ORDERABLES Performing Organization Address City/[facility] [place] [address], [place] [address] * (ABNORMAL) Basic Metabolic Panel (10/19/2024 11:34 AM EST) [facility] Glucose 128(H) 65 - 99 mg/dL 10/19/2024 1:00 PM [facility] Comment:Fasting: <100 mg/dL, Non-Fasting: <200 mg/dL (ADA 2005) Blood Urea Nitrogen (BUN) 84(H) 8 - 21 mg/dL 10/19/2024 1:00 PM [facility] Creatinine 4.8(H) 0.5 - 1.3 mg/dL 10/19/2024 1:00 PM [facility] eGFR 12(L) >59 10/19/2024 1:00 PM [facility] Comment:CKD-EPI (2020) in mL /min/1.73 sq meters. Sodium 142 136 - 145 mmol/L 10/19/2024 1:00 PM [facility] Potassium 4.3 3.4 - 5.3 mmol/L 10/19/2024 1:00 PM [facility] Chloride 110(H) 98 - 107 mmol/L 10/19/2024 1:00 PM [facility] CO2 14(L) 22 - 33 mmol/L 10/19/2024 1:00 PM [facility] Anion Gap 18(H) 7 - 17 10/19/2024 1:00 PM [facility] Calcium 7.0(L) 8.7 - 10.5 mg/dL 10/19/2024 1:00 PM [facility] BUN/Creatinine Ratio 18 10.0 - 25.0 Ratio 10/19/2024 1:00 PM [facility] Blood (Plasma/Serum) 10/19/2024 11:34 AM EST 10/19/2024 11:54 AM EST Pushpa Gallegos MD LAB BLOOD ORDERABLES Performing Organization Address [facility]/[place] [address], [place] [address] * (ABNORMAL) Blood Gas, Venous (10/19/2024 10:36 AM EST) Venous Blood PH 7.32(L) 7.33 - 7.43 10/19/2024 10:59 AM [facility] Venous pCO2 33(L) 35 - 50 mmHG 10/19/2024 10:59 AM [facility] Venous pO2 53 0 - 60 mmHG 10/19/2024 10:59 AM [facility] Venous Total CO2 18(L) 23 - 29 mmol/L 10/19/2024 10:59 AM [facility] Respiratory Info VM 50% 10/19/19 25 10:36 AM EST Base Deficiency 8.3 mmol/L 10:59 AM [facility] Comment:Reference Range: Neg ative 2 to Positive 3 Blood Blood specimen / Unknown 10/19/2024 10:36 AM EST 10/19/2024 10:56 AM EST Pushpa Gallegos MD LAB BLOOD ORDERABLES Performing Organization Address City/[facility]/ZIP Co de Phone Number [address] [address], [address] [address] * (ABNORMAL) POCT Glucose, Fingerstick (10/19/2024 10:34 AM EST) POC Glucose 131(H) 65 - 99 mg/dL 10/19/2024 10:34 AM EST Blood specimen / Unknown 10/19/2024 10:34 AM EST 10/19/2024 10:35 AM EST Fuad Winter MD POINT OF CARE TEST ORDERABLES Performing Organization Address [facility] LAB See Below * (ABNORMAL) POCT Glucose, Fingerstick (10/19/2024 9:08 AM EST) POC Glucose 146(H) 65 - 99 mg/dL 10/19/2024 9:08 AM EST Blood specimen / Unknown 10/19/2024 9:08 AM EST 10/19/2024 9:09 AM EST Fuad Winter MD POINT OF CARE TEST ORDERABLES Performing Organization Address [facility] LAB See Below * (ABNORMAL) POCT Glucose, Fingerstick (10/19/2024 7:58 AM EST) POC Glucose 118(H) 65 - 99 mg/dL 10/19/2024 8:00 AM EST Blood specimen / Unknown 10/19/2024 7:58 AM EST 10/19/2024 7:59 AM EST Fuad Winter MD POINT OF CARE TEST ORDERABLES Performing Organization Address [facility] LAB See Below * Heparin Assay (Anti Xa) (10/19/2024 7:44 AM EST) Anti Xa 0.36 IU/mL 10/19/2024 8:39 AM EST [facility] Comment: (NOTE) Heparin Thromboembolic/Standard/Full Dose Protocol: [...] LAB BLOOD ORDERAB LES Performing Organization Address [facility]/[place] [address], [address] [address] * (ABNORMAL) Basic Metabolic Panel (10/19/2024 7:44 AM EST) Glucose 110(H) 65 - 99 mg/dL 10/19/2024 8:53 AM [facility] Comment:Fasting: <100 mg/dL, Non-Fasting: <200 mg/dL (ADA 2004) Blood Urea Nitrogen (BUN) 84(H) 8 - 21 mg/dL 10/19/2024 8:53 AM [facility] Creatinine 4.8(H) 0.5 - 1.3 mg/dL 10/19/2024 8:53 AM [facility] eGFR 12(L) >59 10/19/2024 8:53 AM [facility] Comment:CKD-EPI (2020) in mL /min/1.73 sq meters. Sodium 141 136 - 145 mmol/L 10/19/2024 8:53 AM [facility] Potassium 4.6 3.4 - 5.3 mmol/L 10/19/2024 8:53 AM [facility] Chloride 109(H) 98 - 107 mmol/L 10/19/2024 8:53 AM [facility] CO2 14(L) 22 - 33 mmol/L 10/19/2024 8:53 AM [facility] Anion Gap 18(H) 7 - 17 10/19/2024 8:53 AM [facility] Calcium 7.2(L) 8.7 - 10.5 mg/dL 10/19/2024 8:53 AM [facility] BUN/Creatinine Ratio 18 10.0 - 25.0 Ratio 10/19/2024 8:53 AM [facility] Blood (Plasma/Serum) 10/19/2024 7:44 AM EST 10/19/2024 8:19 AM EST Pushpa Gallegos MD LAB BLOOD ORDERABLES [address] [place] [address], [address] [address] * (ABNORMAL) POCT Glucose, Fingerstick (10/19/2024 6:38 AM EST) [facility] POC Glucose 148(H) 65 - 99 mg/dL 10/19/2024 6:39 AM EST Blood specimen / Unknown 10/19/2024 6:38 AM EST 10/19/2024 6:39 AM EST Fuad Winter MD POINT OF CARE TEST ORDERABLES Performing Organization Address [facility] Co de Phone Number [facility] LAB See Below * (ABNORMAL) POCT Glucose, Fingerstick (10/19/2024 5:25 AM EST) [facility] POC Glucose 169(H) 65 - 99 mg/dL 10/19/2024 5:29 AM EST Blood specimen / Unknown 10/19/2024 5:25 AM EST 10/19/2024 5:29 AM EST Fuad Winter MD POINT OF CARE TEST ORDERABLES Performing Organization Address [facility] Phone Number [facility] LAB See Below * (ABNORMAL) High Sensitivity Troponin T (10/19/2024 5:15 AM EST) [facility] High Sensitivity Troponin T 4,239(HH) <23 ng/L 10/19/2024 7:11 AM [facility] Comment:Recurring Critical R esult. Previously phoned. Delta (Change) 2,409(H) <3 10/19/2024 7:11 AM [facility] Comment:Increased Blood (Plasma/Serum) 10/19/2024 5:15 AM EST 10/19/2024 6:04 AM EST Pushpa Gallegos MD LAB BLOOD ORDERABLES Performing Organization Address [facility] [place] [address], [place] [address] * (ABNORMAL) BASIC METABOLIC PANEL (10/19/2024 4:15 AM EST) Glucose 143(H) 65 - 99 mg/dL 10/19/2024 5:00 AM [facility] Comment:Fasting: <100 mg/dL, Non-Fasting: <200 mg/dL (ADA 2004) Blood Urea Nitrogen (BUN) 84(H) 8 - 21 mg/dL 10/19/2024 5:00 AM [facility] Creatinine 5.0(H) 0.5 - 1.3 mg/dL 10/19/2024 5:00 AM [facility] eGFR 11(L) >59 10/19/2024 5:00 AM [facility] Comment:CKD-EPI (2020) in mL /min/1.73 sq meters. Sodium 142 136 - 145 mmol/L 10/19/2024 5:00 AM [facility] Potassium 4.3 3.4 - 5.3 mmol/L 10/19/2024 5:00 AM [facility] Chloride 109(H) 98 - 107 mmol/L 10/19/2024 5:00 AM [facility] CO2 14(L) 22 - 33 mmol/L 10/19/2024 5:00 AM [facility] Anion Gap 19(H) 7 - 17 10/19/2024 5:00 AM [facility] Calcium 6.8(LL) 8.7 - 10.5 mg/dL 10/19/2024 5:00 AM [facility] BUN/Creatinine Ratio 17 10.0 - 25.0 Ratio 10/19/2024 5:00 AM [facility] Plasma/Serum 10/19/2024 4:15 AM EST 10/19/2024 4:25 AM EST Fuad Winter MD LAB BLOOD ORD ERABLES [facility] [address] [place] [address], [address] [address] * (ABNORMAL) POCT Glucose, Fingerstick (10/19/2024 4:14 AM EST) POC Glucose 154(H) 65 - 99 mg/dL 10/19/2024 4:15 AM EST Blood specimen / Unknown 10/19/2024 4:14 AM EST 10/19/2024 4:15 AM EST Fuad Winter MD POINT OF CARE TEST ORDERABLES Performing Organization Address [facility] Co or Phone Number HOSPITAL LAB See Below * (ABNORMAL) POCT Glucose, Fingerstick (10/19/2024 2:45 AM EST) POC Glucose 192(H) 65 - 99 mg/dL 10/19/2024 2:46 AM EST Blood specimen / Unknown 10/19/2024 2:45 AM EST 10/19/2024 2:46 AM EST Fuad Winter MD POINT OF CARE TEST ORDERABLES Performing Organization Address [facility] Phone Number HOSPITAL LAB See Below * Heparin Assay (Anti Xa) (10/19/2024 1:54 AM EST) Pathologist [facility] Anti Xa 0.25 IU/mL 10/19/2024 2:28 AM EST [facility] Comment: (NOTE) Heparin Thromboembolic/Standard/Full Dose Protocol: [...] LAB BLOOD ORDERAB LES Performing Organization Address City/[facility] [place] [address], [place] [address] * (ABNORMAL) POCT Glucose, Fingerstick (10/19/2024 1:35 AM EST) POC Glucose 160(H) 65 - 99 mg/dL 10/19/2024 1:36 AM EST Blood specimen / Unknown 10/19/2024 1:35 AM EST 10/19/2024 1:36 AM EST Fuad Winter MD POINT OF CARE TEST ORDERABLES Performing Organization Address City/[facility]/ZIP Co de Phone Number HOSPITAL LAB See Below * (ABNORMAL) Hemoglobin A1C with Estimated Average Glucose (10/19/2024 1:20 AM EST) Hemoglobin A1C 8.7(H) <5.7 % 10/19/2024 12:02 PM [facility] Comment: A1c% ? Interpretation 5.7 - 6.0 ?Increase risk of diabetes 6.1 - 6.4 ?Higher risk of diabetes > or = 6.5 ?? Consistent with diabetes Diabetes Care, 33(Supp 1):S1-S61, 2010 Estimated Average Glucose 203 mg/dL 10/19/2024 12:02 PM [facility] Blood specimen / Unknown 10/19/2024 1:20 AM EST 10/19/2024 2:17 AM EST Pushpa Gallegos MD LAB BLOOD ORDERABLES Performing Organization Address City/[facility]/[place] [address], [place] [address] * Phosphorus (Routine) (10/19/2024 1:20 AM EST) Phosphorus 4.2 2.7 - 4.5 mg/dL 10/19/2024 2:39 AM [facility] Blood (Plasma/Serum) 10/19/2024 1:20 AM EST 10/19/2024 2:17 AM EST Pushpa Gallegos MD [place] [address], [place] [address] * Magnesium (Routine) (10/19/2024 1:20 AM EST) Magnesium 1.7 1.6 - 2.7 mg/dL 10/19/2024 2:39 AM EST [facility] Blood (Plasma/Serum) 10/19/2024 1:20 AM EST 10/19/2024 2:17 AM EST Pushpa Gallegos MD LAB BLOOD ORDERABLES Performing Organization Address [facility] [place] [address], [place] [address] * (ABNORMAL) High Sensitivity Troponin T (Once) (10/19/2024 1:20 AM EST) [facility] High Sensitivity Troponin T 4,171(HH) <23 ng/L 10/19/2024 2:39 AM [facility] Comment:Recurring Critical R esult. Previously phoned. Delta (Change) 2,341(H) <3 10/19/2024 2:39 AM [facility] Comment:Increased Blood (Plasma/Serum) 10/19/2024 1:20 AM EST 10/19/2024 2:17 AM EST Pushpa Gallegos MD LAB BLOOD ORDERABLES Performing Organization Address [facility] [place] [address], [place] [address] * (ABNORMAL) Complete Blood Count, WITHOUT Differential (routine) (10/19/2024 1:20 AM EST) [facility] White Blood Cell Count 15.9(H) 4.0 - 11.0 Thou/uL 10/19/2024 2:31 AM [facility] Platelet Count 263 150 - 450 Thou/uL 10/19/2024 2:31 AM [facility] Hemoglobin 8.5(L) 13.0 - 17.7 g/dL 10/19/2024 2:31 AM [facility] Hematocrit 27.0(L) 39.0 - 54.0 % 10/19/2024 2:31 AM [facility] Red Blood Cell Count 2.78(L) 4.50 - 6.20 Mil/uL 10/19/2024 2:31 AM [facility] MCV 97 80 - 100 fL 10/19/2024 2:31 AM [facility] Comment:Significant change i n values noted, consider specimen integrity. If results are not expected, correlate clinically and re-collect sample if indicated. MCH 30.6 27.0 - 31.0 pg 10/19/2024 2:31 AM EST [facility] MCHC 31.5 30.0 - 36.0 g/dL 10/19/2024 2:31 AM EST [facility] RDW 16.2(H) 11.5 - 14.5 % 10/19/2024 2:31 AM EST [facility] MPV 11.5 7.5 - 12.5 fL 10/19/2024 2:31 AM EST [facility] Blood Blood specimen / Unknown 10/19/2024 1:20 AM EST 10/19/2024 2:17 AM EST Pushpa Gallegos MD LAB BLOOD ORDERABLES Performing Organization Address City/[facility]/[place] [address], [place] [address] * (ABNORMAL) POCT Glucose, Fingerstick (10/19/2024 12:16 AM EST) POC Glucose 106(H) 65 - 99 mg/dL 10/19/2024 12:17 AM EST Blood specimen / Unknown 10/19/2024 12:16 AM EST 10/19/2024 12:17 AM EST Fuad Winter MD POINT OF CARE TEST ORDERABLES HOSPITAL LAB See Below * ECG 12 lead (10/19/2024 12:02 AM EST) Systolic BP [address] [facility] Diastolic BP 67 mmHg EKG [facility] Ventricular rate 86 BPM EKG [facility] Atrial rate [address] [facility] P-R interval 162 ms EKG [facility] QRS duration 78 ms EKG [facility] Q-T interval 372 ms EKG [facility] QTC calculation (Bazett) 445 ms EKG [facility] P axis 42 degrees EKG [facility] R axis 60 degrees EKG [facility] T axis 224 degrees EKG [facility] 10/19/2024 12:0 2 AM EST Narrative EKG [facility] - 10/19/2024 5:46 AM EST Normal sinus rhythm Early Transition Nonspecific ST and T wave abnormality Abnormal ECG Confirmed by MD Wade John ([id number]) on 10/19/2024 5:46:29 AM Procedure Note Raciel Wade MD - 10/19/2024 Normal sinus rhythm Early Transition Nonspecific ST and T wave abnormality Abnormal ECG Confirmed by MD Wade John ([id number]) on 10/19/2024 5:46:29 AM Fuad Winter MD ECG ORDERABLE S Performing Organization Address City/[facility]/ZIP Co de Phone Number [facility] * (ABNORMAL) POCT Glucose, Fingerstick (10/18/2024 11:22 PM EST) POC Glucose 117(H) 65 - 99 mg/dL 10/18/2024 11:23 PM EST Blood specimen / Unknown 10/18/2024 11:22 PM EST 10/18/2024 11:23 PM EST Fuad Winter MD POINT OF CARE TEST ORDERABLES HOSPITAL LAB See Below * (ABNORMAL) BASIC METABOLIC PANEL (10/18/2024 11:11 PM EST) Glucose 103(H) 65 - 99 mg/dL 10/19/2024 12:51 AM [facility] Comment:Fasting: <100 mg/dL, Non-Fasting: <200 mg/dL (ADA 2005) Blood Urea Nitrogen (BUN) 88(H) 8 - 21 mg/dL 10/19/2024 12:51 AM [facility] Creatinine 5.0(H) 0.5 - 1.3 mg/dL 10/19/2024 12:51 AM [facility] eGFR 11(L) >59 10/19/2024 12:51 AM [facility] Comment:CKD-EPI (2020) in mL /min/1.73 sq meters. Sodium 143 136 - 145 mmol/L 10/19/2024 12:51 AM [facility] Potassium 4.4 3.4 - 5.3 mmol/L 10/19/2024 12:51 AM [facility] Chloride 110(H) 98 - 107 mmol/L 10/19/2024 12:51 AM [facility] CO2 13(L) 22 - 33 mmol/L 10/19/2024 12:51 AM [facility] Anion Gap 20(H) 7 - 17 10/19/2024 12:51 AM [facility] Calcium 7.0(L) 8.7 - 10.5 mg/dL 10/19/2024 12:51 AM [facility] BUN/Creatinine Ratio 18 10.0 - 25.0 Ratio 10/19/2024 12:51 AM [facility] Plasma/Serum 10/18/2024 11:1 1 PM EST 10/18/2024 11:48 PM EST Fuad Winter MD LAB [place] [address], [place] [address] * (ABNORMAL) Blood Gas, Venous (10/18/2024 11:11 PM EST) Venous Blood PH 7.35 7.33 - 7.43 10/18/2024 11:50 PM [facility] Venous pCO2 27(L) 35 - 50 mmHG 10/18/2024 11:50 PM [facility] Venous pO2 185(H) 0 - 60 mmHG 10/18/2024 11:50 PM [facility] Venous Total CO2 15(L) 23 - 29 mmol/L 10/18/2024 11:50 PM [facility] Respiratory Info VM 50% 10/18/19 25 5:04 PM EST Base Deficiency 9.7 mmol/L 11:50 PM [facility] Comment:Reference Range: Neg ative 2 to Positive 3 Blood Blood specimen / Unknown 10/18/2024 11:11 PM EST 10/18/2024 11:45 PM EST Pushpa Gallegos MD [place] [address], [address] [address] * (ABNORMAL) BASIC METABOLIC PANEL (10/18/2024 10:15 PM EST) Glucose 113(H) 65 - 99 mg/dL 10/18/2024 10:59 PM [facility] Comment:Fasting: <100 mg/dL, Non-Fasting: <200 mg/dL (ADA 2004) Blood Urea Nitrogen (BUN) 91(H) 8 - 21 mg/dL 10/18/2024 10:59 PM [facility] Creatinine 5.2(H) 0.5 - 1.3 mg/dL 10/18/2024 10:59 PM [facility] eGFR 11(L) >59 10/18/2024 10:59 PM [facility] Comment:CKD-EPI (2020) in mL /min/1.73 sq meters. Sodium 145 136 - 145 mmol/L 10/18/2024 10:59 PM [facility] Potassium 4.2 3.4 - 5.3 mmol/L 10/18/2024 10:59 PM [facility] Chloride 111(H) 98 - 107 mmol/L 10/18/2024 10:59 PM [facility] CO2 14(L) 22 - 33 mmol/L 10/18/2024 10:59 PM [facility] Anion Gap 20(H) 7 - 17 10/18/2024 10:59 PM [facility] Calcium 7.3(L) 8.7 - 10.5 mg/dL 10/18/2024 10:59 PM [facility] BUN/Creatinine Ratio 18 10.0 - 25.0 Ratio 10/18/2024 10:59 PM [facility] Plasma/Serum 10/18/2024 10:1 5 PM EST 10/18/2024 10:21 PM EST Fuad Winter MD LAB [place] [address], [place] [address] * Lactic Acid, Plasma (Routine) (10/18/2024 10:13 PM EST) Lactic Acid 1.2 0.5 - 1.9 mmol/L 10/18/2024 10:56 PM EST [facility] Blood Plasma specimen / Unknown 10/18/2024 10:13 PM EST 10/18/2024 10:21 PM EST Pushpa Gallegos MD [place] [address], [place] [address] * (ABNORMAL) POCT Glucose, Fingerstick (10/18/2024 10:06 [...] OF CARE TEST ORDERABLES Performing Organization Address [facility] Number [facility] LAB See Below * (ABNORMAL) POCT Glucose, Fingerstick (10/18/2024 8:16 PM EST) Pathologist [facility] POC Glucose 168(H) 65 - 99 mg/dL 10/18/2024 8:17 PM EST Blood specimen / Unknown 10/18/2024 8:16 PM EST 10/18/2024 8:17 PM EST Fuad Winter MD POINT OF CARE TEST ORDERABLES Performing Organization Address [facility] Co or Phone Number [facility] LAB See Below * (ABNORMAL) Blood Gas, Venous (10/18/2024 7:14 PM EST) Pathologist [facility] Venous Blood PH 7.31(L) 7.33 - 7.43 10/18/2024 7:25 PM EST [facility] Venous pCO2 32(L) 35 - 50 mmHG 10/18/2024 7:25 PM EST [facility] Venous pO2 182(H) 0 - 60 mmHG 10/18/2024 7:25 PM EST [facility] Venous Total CO2 16(L) 23 - 29 mmol/L 10/18/2024 7:25 PM EST [facility] Respiratory Info VM 50% 10/18/19 5:04 PM EST Base Deficiency 9.7 mmol/L 7:25 PM [facility] Comment:Reference Range: Neg ative 2 to Positive 3 Blood Blood specimen / Unknown 10/18/2024 7:14 PM EST 10/18/2024 7:21 PM EST Pushpa Gallegos MD [place] [address], [address] [address] * (ABNORMAL) Basic Metabolic Panel (10/18/2024 7:14 PM EST) Glucose 154(H) 65 - 99 mg/dL 10/18/2024 7:55 PM [facility] Comment:Fasting: <100 mg/dL, Non-Fasting: <200 mg/dL (ADA 2004) Blood Urea Nitrogen (BUN) 87(H) 8 - 21 mg/dL 10/18/2024 7:55 PM [facility] Creatinine 5.1(H) 0.5 - 1.3 mg/dL 10/18/2024 7:55 PM [facility] eGFR 11(L) >59 10/18/2024 7:55 PM [facility] Comment:CKD-EPI (2020) in mL /min/1.73 sq meters. Sodium 144 136 - 145 mmol/L 10/18/2024 7:55 PM [facility] Potassium 4.7 3.4 - 5.3 mmol/L 10/18/2024 7:55 PM [facility] Chloride 110(H) 98 - 107 mmol/L 10/18/2024 7:55 PM [facility] CO2 14(L) 22 - 33 mmol/L 10/18/2024 7:55 PM [facility] Anion Gap 20(H) 7 - 17 10/18/2024 7:55 PM [facility] Calcium 7.0(L) 8.7 - 10.5 mg/dL 10/18/2024 7:55 PM [facility] BUN/Creatinine Ratio 17 10.0 - 25.0 Ratio 10/18/2024 7:55 PM EST [facility] Blood (Plasma/Serum) 10/18/2024 7:14 PM EST 10/18/2024 7:22 PM EST Fuad Winter MD LAB BLOOD ORD ERABLES [address] [address], [address] [address] * (ABNORMAL) POCT Glucose, Fingerstick (10/18/2024 7:13 PM EST) POC Glucose 166(H) 65 - 99 mg/dL 10/18/2024 7:15 PM EST Blood specimen / Unknown 10/18/2024 7:13 PM EST 10/18/2024 7:15 PM EST Fuad Winter MD POINT OF CARE TEST ORDERABLES Performing Organization Address City/[facility] Co de Phone Number HOSPITAL LAB [...] Sample left with bedside RN. ACCESS: 6 English Anri-H-Rqzfoqfw closed needle/catheter system ?? REQUESTING PRACTITIONER: Cheryl [...] adjacent organs or vascular structures. A 6 English Pqfz-K-Ymandycs closed needle/catheter system was utilized for access. [...] adjacent organs or vascular structures. A 6 English Zwrt-A-Bsjwhnxo closed needle/catheter system was utilized for access. 550 mL of clear devorah fluid was aspirated before drainage ceased. The catheter was removed and a sterile dressing applied. The patient tolerated the procedure well without evidence of complications. ?? Pushpa Gallegos MD [facility] ORDERABLES * (ABNORMAL) POCT Glucose, Fingerstick [...] No fungus isolated 11/02/2024 8:34 AM EST [facility] 10/18/2024 5:55 PM EST 10/18/2024 7:54 PM EST Fuad Winter MD MICROBIOLOGY - GENERAL ORDERABLES [facility] [address] [facility] [address] * Body Fluid Culture (aerobic, anaerobic and Gram stain) (10/18/2024 5:55 PM EST) Gram stain suggestive of Few neutrophils Mononuclear cells No organisms seen 10/18/2024 9:52 PM EST [facility] Culture No aerobes and anaerobes isolated after 7 days 10/25/2024 3:19 PM [facility] 10/18/2024 5:55 PM EST 10/18/2024 7:53 PM EST Fuad Winter MD MICROBIOLOGY - GENERAL ORDERABLES Performing Organization Address City/[facility] Co de Phone Number [facility] [address] [place] [address], [address] [address] * Protein, Body Fluid (10/18/2024 5:50 PM EST) Source RIGHT PLEURAL EFFUSION 10/18/2024 6:49 PM EST [facility] Protein, Body Fluid 2.2 g/dL 10/18/2024 7:15 PM EST [facility] Comment:The reference interv al(s) and other method performance specifications are unavailable for this body fluid. Comparison of this result with the concentration in the blood, serum, or plasma is recommended. 10/18/2024 5:50 PM EST 10/18/2024 6:49 PM EST Fuad Winter MD BODY FLUIDS A ND STOOLS ORDERABLES Performing Organization Address [facility] [place] [address], [place] [address] * PH, BODY FLUID (10/18/2024 5:50 PM EST) Source RIGHT PLEURAL EFFUSION 10/18/2024 6:49 PM EST [facility] pH, Body Fluid 7.34 10/18/2024 7:14 PM EST [facility] 10/18/2024 5:50 PM EST 10/18/2024 6:49 PM EST Fuad Winter MD BODY FLUIDS A ND STOOLS ORDERABLES Performing Organization Address [facility] [place] [address], [place] [address] * Glucose, Body Fluid (10/18/2024 5:50 PM EST) Source RIGHT PLEURAL EFFUSION 10/18/2024 6:49 PM EST [facility] Glucose, Body Fluid 151 mg/dL 10/18/2024 7:15 PM EST [facility] Comment:The reference interv al(s) and other method performance specifications are unavailable for this body fluid. Comparison of this result with the concentration in the blood, serum, or plasma is recommended. 10/18/2024 5:50 PM EST 10/18/2024 6:49 PM EST Fuad Winter MD BODY FLUIDS A ND STOOLS ORDERABLES Performing Organization Address [facility] [place] [address], [place] [address] * Cell Count, Reflex Differential, Body Fluid (10/18/2024 5:50 PM EST) Appearance, Body Fluid Cloudy 10/18/2024 8:25 PM [facility] Color [place] 10/18/2024 8:25 PM [facility] Nucleated Cells, Fluid 435 /CUMM 10/18/2024 8:24 PM [facility] RBC, Fluid 11,000 /CUMM 10/18/2024 8:24 PM [facility] Neutrophil, Body Fluid 3 % 10/18/2024 8:25 PM [facility] Lymphoctye, Body Fluid 27 % 10/18/2024 8:25 PM [facility] Monocyte, Body Fluid 21 % 10/18/2024 8:25 PM [facility] Histiocyte, Body Fluid 46 % 10/18/2024 8:25 PM [facility] Mesothelial, Body Fluid 3 % 10/18/2024 8:25 PM [facility] Smear Comment, Body Fluid The reference interval and other method performance specifications are unavailable for this body fluid. Comparison of the result with concentration in the blood, serum, or plasma is recommended 10/18/2024 8:25 PM [facility] 10/18/2024 5:50 PM EST 10/18/2024 6:49 PM EST Fuad Winter MD BODY FLUIDS [place] [address], [place] [address] * Culture - Pleural Fluid (aerobic, anaerobic and Gram stain) (10/18/2024 5:40 PM EST) Special Requests Limited quantity of fluid received, results may be impacted. 10/19/2024 9:03 AM [facility] Gram stain suggestive of Few neutrophils Mononuclear cells No organisms seen 10/18/2024 9:59 PM [facility] Culture No aerobes and anaerobes isolated after 7 days 10/25/2024 3:19 PM [facility] Microbiology Specimen from pleura obtained by thoracentesis / Unknown 10/18/2024 5:40 PM EST 10/18/2024 7:48 PM EST Pushpa Gallegos MD MICROBIOLOGY - GENER AL ORDERABLES Performing Organization Address [facility] Co de Phone Number [facility] [address] [place] [address], [place] [address] * Protein - Pleural Fluid (10/18/2024 5:39 PM EST) Source [place] 10/18/2024 5:40 PM EST Protein, Body Fluid 2.2 g/dL 10/18/2024 7:27 PM EST [facility] Comment:The reference interv al(s) and other method performance specifications are unavailable for this body fluid. Comparison of this result with the concentration in the blood, serum, or plasma is recommended. Specimen from pleura obtained by thoracentesis / Unknown 10/18/2024 5:39 PM EST 10/18/2024 6:57 PM EST Pushpa Gallegos MD BODY FLUIDS AND STOO LS ORDERABLES Performing Organization Address [facility] [place] [address], [place] [address] * pH - Pleural Fluid (not avail at [place]) (10/18/2024 5:39 PM EST) Source [place]LE[place] 10/18/2024 5:40 PM EST pH, Body Fluid 7.33 10/18/2024 7:15 PM EST [facility] Body Fluid Specimen from pleura obtained by thoracentesis / Unknown 10/18/2024 5:39 PM EST 10/18/2024 6:57 PM EST Pushpa Gallegos MD BODY FLUIDS AND STOO LS ORDERABLES Performing Organization Address [facility] [place] [address], [place] [address] * LDH - Pleural Fluid (10/18/2024 5:39 PM EST) Source [place] 10/18/2024 5:40 PM EST Lactate Dehydrogenase, Body Fluid 143 U/L 10/18/2024 7:27 PM EST [facility] Comment:The reference interv [...] AND STOO LS ORDERABLES Performing Organization Address [facility] [place] [address], [place] [address] * Glucose - Pleural Fluid (10/18/2024 5:39 PM EST) Source [place] 10/18/2024 5:40 PM EST Glucose, Body Fluid 146 mg/dL 10/18/2024 7:27 PM [facility] Comment:The reference interv al(s) and other method performance specifications are unavailable for this body fluid. Comparison of this result with the concentration in the blood, serum, or plasma is recommended. Specimen from pleura obtained by thoracentesis / Unknown 10/18/2024 5:39 PM EST 10/18/2024 6:57 PM EST Pushpa Gallegos MD BODY FLUIDS AND STOO LS ORDERABLES Performing Organization Address [facility] [place] [address], [place] [address] * Cell Count, Reflex Differential, Body Fluid (10/18/2024 5:39 PM EST) Appearance, Body Fluid Cloudy 10/18/2024 8:22 PM EST [facility] Color [place] 10/18/2024 8:22 PM [facility] Nucleated Cells, Fluid 721 /CUMM 10/18/2024 8:22 PM [facility] RBC, Fluid 10,000 /CUMM 10/18/2024 8:22 PM [facility] Neutrophil, Body Fluid 0 % 10/18/2024 8:22 PM EST [facility] Lymphoctye, Body Fluid 57 % 10/18/2024 8:22 PM [facility] Monocyte, Body Fluid 15 % 10/18/2024 8:22 PM [facility] Histiocyte, Body Fluid 27 % 10/18/2024 8:22 PM [facility] Basophil, Body Fluid 1 % 10/18/2024 8:22 PM [facility] Smear Comment, Body Fluid The reference interval and other method performance specifications are unavailable for this body fluid. Comparison of the result with concentration in the blood, serum, or plasma is recommended 10/18/2024 8:22 PM [facility] Specimen from pleura obtained by thoracentesis / Unknown 10/18/2024 5:39 PM EST 10/18/2024 6:57 PM EST Pushpa Gallegos MD BODY FLUIDS AND [place] [address], [place] [address] * (ABNORMAL) POCT Glucose, Fingerstick (10/18/2024 5:04 PM EST) POC Glucose 119(H) 65 - 99 mg/dL 10/18/2024 6:07 PM EST Blood specimen / Unknown 10/18/2024 5:04 PM EST 10/18/2024 6:07 PM EST Fuad Winter MD POINT OF CARE TEST ORDERABLES HOSPITAL LAB See Below * (ABNORMAL) B-Hydroxybutyrate (10/18/2024 5:04 PM EST) B-Hydroxybutyrate 0.45(H) <0.28 mmol/L 10/18/2024 6:44 PM [facility] Comment: In the presence of uncontrolled [...] LAB BLOOD ORD ERABLES Performing Organization Address [facility] [place] [address], [place] [address] * (ABNORMAL) Blood Gas, Venous (10/18/2024 5:04 PM EST) Venous Blood PH 7.32(L) 7.33 - 7.43 10/18/2024 5:27 PM [facility] Venous pCO2 31(L) 35 - 50 mmHG 10/18/2024 5:27 PM [facility] Venous pO2 131(H) 0 - 60 mmHG 10/18/2024 5:27 PM [facility] Venous Total CO2 17(L) 23 - 29 mmol/L 10/18/2024 5:27 PM [facility] Respiratory Info NASAL 6 L/MIN 10/18/2024 3:04 PM EST Base Deficiency 9.2 mmol/L 5:27 PM [facility] Comment:Reference Range: Neg ative 2 to Positive 3 Blood Blood specimen / Unknown 10/18/2024 5:04 PM EST 10/18/2024 5:13 PM EST Pushpa Gallegos MD LAB BLOOD ORDERABLES Performing Organization Address [facility]/[place] [address], [place] [address] * Heparin Assay (Anti Xa) (10/18/2024 5:04 PM EST) Anti Xa 0.23 IU/mL 10/18/2024 6:17 PM [facility] Comment: (NOTE) Heparin Thromboembolic/Standard/Full Dose Protocol: [...] MD LAB BLOOD ORDERABLES Performing Organization Address [facility]/ZIP Co de Phone Number [address] [address], [address] [address] * (ABNORMAL) Basic Metabolic Panel (10/18/2024 5:04 PM EST) Glucose 112(H) 65 - 99 mg/dL 10/18/2024 6:44 PM [facility] Comment:Fasting: <100 mg/dL, Non-Fasting: <200 mg/dL (ADA 2004) Blood Urea Nitrogen (BUN) 85(H) 8 - 21 mg/dL 10/18/2024 6:44 PM [facility] Creatinine 5.2(H) 0.5 - 1.3 mg/dL 10/18/2024 6:44 PM [facility] eGFR 11(L) >59 10/18/2024 6:44 PM [facility] Comment:CKD-EPI (2020) in mL /min/1.73 sq meters. Sodium 145 136 - 145 mmol/L 10/18/2024 6:44 PM [facility] Potassium 4.4 3.4 - 5.3 mmol/L 10/18/2024 6:44 PM [facility] Chloride 110(H) 98 - 107 mmol/L 10/18/2024 6:44 PM [facility] CO2 15(L) 22 - 33 mmol/L 10/18/2024 6:44 PM [facility] Anion Gap 20(H) 7 - 17 10/18/2024 6:44 PM [facility] Calcium 7.1(L) 8.7 - 10.5 mg/dL 10/18/2024 6:44 PM [facility] BUN/Creatinine Ratio 16 10.0 - 25.0 Ratio 10/18/2024 6:44 PM [facility] Blood (Plasma/Serum) 10/18/2024 5:04 PM EST 10/18/2024 6:04 PM EST Fuad Winter MD LAB BLOOD ORD ERABLES [address] [address], [address] [place] [address] * XR Chest 1 view-Portable (10/18/2024 4:14 PM EST) Anatomical Region Laterality Modality Chest Computed Radiogr aphy 10/18/2024 3:54 PM EST Impressions 10/19/2024 2:34 PM EST 1. ??Interval worsening of now moderate pulmonary edema. Superimposed infectious/inflammatory process cannot be entirely excluded. 2. ??Trace bilateral pleural effusions unchanged. Interpreted by: ??Mitchell Ascencio DO Coper Hand I personally reviewed the images and the [...] effusions unchanged. Interpreted by: Mitchell Ascencio DO Coper Hand I personally reviewed the images and the [...] OF CARE TEST ORDERABLES Performing Organization Address [facility] Number [facility] LAB See Below * (ABNORMAL) POCT Glucose, Fingerstick (10/18/2024 2:44 PM EST) POC Glucose 105(H) 65 - 99 mg/dL 10/18/2024 2:49 PM EST Blood specimen / Unknown 10/18/2024 2:44 PM EST 10/18/2024 2:48 PM EST Fuad Winter MD POINT OF CARE TEST ORDERABLES Performing Organization Address [facility] Number [facility] LAB See Below * POCT Glucose, Fingerstick (10/18/2024 1:44 PM EST) POC Glucose 92 65 - 99 mg/dL 10/18/2024 1:45 PM EST Blood specimen / Unknown 10/18/2024 1:44 PM EST 10/18/2024 1:45 PM EST Fuad Winter MD POINT OF CARE TEST ORDERABLES Performing Organization Address [facility] Number [facility] LAB See Below * (ABNORMAL) POCT Glucose, Fingerstick (10/18/2024 1:24 PM EST) POC Glucose 102(H) 65 - 99 mg/dL 10/18/2024 1:44 PM EST Blood specimen / Unknown 10/18/2024 1:24 PM EST 10/18/2024 1:44 PM EST Fuad Winter MD POINT OF CARE TEST ORDERABLES Performing Organization Address [facility]/State/ZIP Co de Phone Number HOSPITAL LAB See Below * (ABNORMAL) POCT Glucose, Fingerstick (10/18/2024 12:19 PM EST) POC Glucose 160(H) 65 - 99 mg/dL 10/18/2024 12:19 PM EST Blood specimen / Unknown 10/18/2024 12:19 PM EST 10/18/2024 12:20 PM EST Fuad Winter MD POINT OF CARE TEST ORDERABLES HOSPITAL LAB See Below * ECHOCARDIOGRAM COMPREHENSIVE WITH CONTRAST (10/18/2024 12:14 PM EST) Pathologist [facility] IVS Mean (F:0.6-0.9, M:0.6-1.0) 1.0 cm IVS [...] system. ?Dr. Pushpa Gallegos was notified by Cameron text at 12:36 PM. Technical Details Definity [...] 65 - 99 mg/dL 10/18/2024 12:14 PM [facility] Comment:Fasting: <100 mg/dL, Non-Fasting: <200 mg/dL (ADA 2004) Blood Urea Nitrogen (BUN) 84(H) 8 - 21 mg/dL 10/18/2024 12:14 PM [facility] Creatinine 5.0(H) 0.5 - 1.3 mg/dL 10/18/2024 12:14 PM [facility] eGFR 11(L) >59 10/18/2024 12:14 PM [facility] Comment:CKD-EPI (2020) in mL /min/1.73 sq meters. Sodium 145 136 - 145 mmol/L 10/18/2024 12:14 PM [facility] Potassium 4.2 3.4 - 5.3 mmol/L 10/18/2024 12:14 PM [facility] Chloride 111(H) 98 - 107 mmol/L 10/18/2024 12:14 PM [facility] CO2 14(L) 22 - 33 mmol/L 10/18/2024 12:14 PM [facility] Anion Gap 20(H) 7 - 17 10/18/2024 12:14 PM [facility] Calcium 7.1(L) 8.7 - 10.5 mg/dL 10/18/2024 12:14 PM [facility] BUN/Creatinine Ratio 17 10.0 - 25.0 Ratio 10/18/2024 12:14 PM [facility] Blood (Plasma/Serum) 10/18/2024 11:25 AM EST 10/18/2024 11:49 AM EST Fuad Winter MD LAB BLOOD ORD ERABLES Performing Organization Address [facility] Phone Number [facility] [address] [place] [address], [address] [address] * (ABNORMAL) POCT Glucose, Fingerstick (10/18/2024 11:19 AM EST) POC Glucose 215(H) 65 - 99 mg/dL 10/18/2024 11:22 AM EST Blood specimen / Unknown 10/18/2024 11:19 AM EST 10/18/2024 11:22 AM EST Fuad Winter MD POINT OF CARE TEST ORDERABLES Performing Organization Address [facility] Phone Number [facility] LAB See Below * (ABNORMAL) POCT Glucose, Fingerstick (10/18/2024 10:16 AM EST) POC Glucose 289(H) 65 - 99 mg/dL 10/18/2024 10:17 AM EST Blood specimen / Unknown 10/18/2024 10:16 AM EST 10/18/2024 10:17 AM EST Fuad Winter MD POINT OF CARE TEST ORDERABLES Performing Organization Address [facility] Phone Number [facility] LAB See Below * Heparin Assay (Anti Xa) (10/18/2024 9:57 AM EST) Anti Xa 0.47 IU/mL 10/18/2024 10:37 AM EST [facility] Comment: (NOTE) Heparin Thromboembolic/Standard/Full Dose Protocol: [...] MD LAB BLOOD ORDERABLES Performing Organization Address [facility]/State/[facility] Co de Phone Number [facility] [address] [place] [address], [facility] [address] [place] [address] * (ABNORMAL) Basic Metabolic Panel (10/18/2024 9:57 AM EST) Glucose 304(H) 65 - 99 mg/dL 10/18/2024 10:35 AM [facility] Comment:Fasting: <100 mg/dL, Non-Fasting: <200 mg/dL (ADA 2004) Blood Urea Nitrogen (BUN) 87(H) 8 - 21 mg/dL 10/18/2024 10:35 AM [facility] Creatinine 5.0(H) 0.5 - 1.3 mg/dL 10/18/2024 10:35 AM [facility] eGFR 11(L) >59 10/18/2024 10:35 AM [facility] Comment:CKD-EPI (2020) in mL /min/1.73 sq meters. Sodium 142 136 - 145 mmol/L 10/18/2024 10:35 AM [facility] Potassium 4.3 3.4 - 5.3 mmol/L 10/18/2024 10:35 AM [facility] Chloride 108(H) 98 - 107 mmol/L 10/18/2024 10:35 AM [facility] CO2 13(L) 22 - 33 mmol/L 10/18/2024 10:35 AM [facility] Anion Gap 21(H) 7 - 17 10/18/2024 10:35 AM [facility] Calcium 7.2(L) 8.7 - 10.5 mg/dL 10/18/2024 10:35 AM [facility] BUN/Creatinine Ratio 17 10.0 - 25.0 Ratio 10/18/2024 10:35 AM [facility] Blood (Plasma/Serum) 10/18/2024 9:57 AM EST 10/18/2024 10:10 AM EST Fuad Winter MD LAB BLOOD ORD ERABLES [address] [address], [address] [address] * (ABNORMAL) POCT Glucose, Fingerstick (10/18/2024 9:39 AM EST) POC Glucose 324(H) 65 - 99 mg/dL 10/18/2024 9:40 AM EST Blood specimen / Unknown 10/18/2024 9:39 AM EST 10/18/2024 9:40 AM EST Fuad Winter MD POINT OF CARE TEST ORDERABLES Performing Organization Address [facility] LAB See Below * (ABNORMAL) POCT Glucose, Fingerstick (10/18/2024 8:34 AM EST) POC Glucose 443(H) 65 - 99 mg/dL 10/18/2024 8:35 AM EST Blood specimen / Unknown 10/18/2024 8:34 AM EST 10/18/2024 8:35 AM EST Fuad Winter MD POINT OF CARE TEST ORDERABLES Performing Organization Address [facility] LAB See Below * (ABNORMAL) POCT Glucose, Fingerstick (10/18/2024 7:31 AM EST) POC Glucose 461(H) 65 - 99 mg/dL 10/18/2024 7:33 AM EST Blood specimen / Unknown 10/18/2024 7:31 AM EST 10/18/2024 7:33 AM EST Fuad Winter MD POINT OF CARE TEST ORDERABLES Performing Organization Address [facility] LAB See Below * (ABNORMAL) BASIC METABOLIC PANEL (10/18/2024 7:25 AM EST) Glucose 476(HH) 65 - 99 mg/dL 10/18/2024 8:03 AM [facility] Comment:Fasting: <100 mg/dL, Non-Fasting: <200 mg/dL (ADA 2005) Blood Urea Nitrogen (BUN) 84(H) 8 - 21 mg/dL 10/18/2024 8:03 AM [facility] Creatinine 5.0(H) 0.5 - 1.3 mg/dL 10/18/2024 8:03 AM [facility] eGFR 11(L) >59 10/18/2024 8:03 AM [facility] Comment:CKD-EPI (2020) in mL /min/1.73 sq meters. Sodium 139 136 - 145 mmol/L 10/18/2024 8:03 AM [facility] Potassium 4.5 3.4 - 5.3 mmol/L 10/18/2024 8:03 AM [facility] Chloride 106 98 - 107 mmol/L 10/18/2024 8:03 AM [facility] CO2 12(LL) 22 - 33 mmol/L 10/18/2024 8:03 AM [facility] Anion Gap 21(H) 7 - 17 10/18/2024 8:03 AM [facility] Calcium 6.6(LL) 8.7 - 10.5 mg/dL 10/18/2024 8:03 AM [facility] BUN/Creatinine Ratio 17 10.0 - 25.0 Ratio 10/18/2024 8:03 AM [facility] Plasma/Serum 10/18/2024 7:25 AM EST 10/18/2024 7:33 AM EST Fuad Winter MD LAB [place] [address], [place] [address] * (ABNORMAL) Troponin T, High Sensitivity - STAT and in 1 hour (10/18/2024 7:25 AM EST) High Sensitivity Troponin T 2,403(HH) <23 ng/L 10/18/2024 8:03 AM [facility] Comment:Recurring Critical R esult. Previously phoned. Delta (Change) 573(H) <3 10/18/2024 8:03 AM [facility] Comment:Increased Blood (Plasma/Serum) 10/18/2024 7:25 AM EST 10/18/2024 7:33 AM EST Fuad Winter MD LAB [place] [address], [facility] [address] [facility] [place] [address] * (ABNORMAL) POCT Glucose, Fingerstick (10/18/2024 6:28 [...] atelectasis, respectively. Interpreted by: ??Prem Coffman MD Coper Hand I personally reviewed the images and the [...] atelectasis, respectively. Interpreted by: Prem Coffman MD Coper Hand I personally reviewed the images and the resident's preliminary report and AGREE with the report as it is now presented ([id number]). Fuad Winter MD IMG DIAGNOSTI C IMAGING ORDERABLES * ECG 12 lead (10/18/2024 5:28 AM EST) Ventricular rate 89 BPM EKG [facility] QRS duration 88 ms [facility] Q-T interval 366 ms [facility] QTC calculation (Bazett) 446 ms EKG [facility] R axis 36 degrees EKG [facility] T axis 184 degrees EKG [facility] 10/18/2024 5:28 AM EST Narrative G [facility] - 10/18/2024 9:43 AM EST Normal sinus rhythm ST & T wave abnormality, consider lateral ischemia Abnormal ECG No previous ECGs available Confirmed by MD Ortiz Daniel ([id number]) on 10/18/2024 9:42:59 AM Procedure Note Alonso Ortiz MD - 10/18/[address] & T wave abnormality, consider lateral ischemia Abnormal ECG No previous ECGs available Confirmed by MD Ortiz Daniel ([id number]) on 10/18/2024 9:42:59 AM Fuad Winter MD ECG [facility]ABLE [facility] * (ABNORMAL) POCT Glucose, Fingerstick (10/18/2024 5:24 AM EST) [facility] POC Glucose >500(H) 65 - 99 mg/dL 10/18/2024 5:25 AM EST Blood specimen / Unknown 10/18/2024 5:24 AM EST 10/18/2024 5:25 AM EST Fuad Winter MD POINT OF CARE TEST ORDERABLES HOSPITAL LAB See Below * Heparin Assay (Anti-Xa) (10/18/2024 5:16 AM EST) [facility] Anti Xa 0.72 IU/mL 10/18/2024 5:58 AM EST [facility] Comment: (NOTE) Heparin Thromboembolic/Standard/Full Dose Protocol: [...] LAB BLOOD ORD ERABLES Performing Organization Address City/[facility]/[place] [address], [place] [address] * (ABNORMAL) Partial Thromboplastin Time (PTT) (10/18/2024 5:16 AM EST) Anticoagulant IV HEPARIN, UNFRACTIONATED 10/18/2024 5:18 AM EST Partial Thromboplastin Time (PTT) 68(H) 25 - 36 seconds 10/18/2024 5:58 AM EST [facility] Blood Plasma specimen / Unknown 10/18/2024 5:16 AM EST 10/18/2024 5:42 AM EST Fuad Winter MD LAB BLOOD ORD ERABLES Performing Organization Address City/[facility]/[place] [address], [place] [address] * (ABNORMAL) Protime-INR (10/18/2024 5:16 AM EST) Anticoagulant IV HEPARIN, UNFRACTIONATED 10/18/2024 5:18 AM EST Prothrombin Time (PT) 13.9(H) 10.0 - 13.5 seconds 10/18/2024 5:58 AM [facility] INR 1.2 10/18/2024 5:58 AM [facility] Comment:INR Therapeutic Rang es: Standard dose anticoagulant 2.0 to 3.0, High dose anticoagulant 2.5-3.5. Blood Plasma specimen / Unknown 10/18/2024 5:16 AM EST 10/18/2024 5:42 AM EST Fuad Winter MD LAB BLOOD ORD ERABLES Performing Organization Address City/[facility]/[place] [address], [place] [address] * (ABNORMAL) proBNP, N-terminal (BNP) (10/18/2024 5:16 AM EST) proBNP, N-terminal >70,000(H) <450 pg/mL 10/18/2024 7:21 AM [facility] Blood Plasma specimen / Unknown 10/18/2024 5:16 AM EST 10/18/2024 5:42 AM EST Fuad Winter MD LAB BLOOD ORD ERABLES Performing Organization Address City/[facility]/[place] [address], [place] [address] * (ABNORMAL) B-Hydroxybutyrate (10/18/2024 5:16 AM EST) B-Hydroxybutyrate 3.63(H) <0.28 mmol/L 10/18/2024 6:38 AM [facility] Comment: In the presence of uncontrolled [...] LAB BLOOD ORD ERABLES Performing Organization Address City/[facility] [place] [address], [place] [address] * (ABNORMAL) Osmolality (10/18/2024 5:16 AM EST) Osmolality, Serum/Plasma 359(H) 285 - 295 mOsm/Kg 10/18/2024 6:43 AM [facility] Blood (Plasma/Serum) 10/18/2024 5:16 AM EST 10/18/2024 5:42 AM EST Fuad Winter MD LAB BLOOD ORD ERABLES Performing Organization Address [facility] [place] [address], [place] [address] * (ABNORMAL) Blood Gas, Venous (10/18/2024 5:16 AM EST) [facility] Venous Blood PH 7.18(LL) 7.33 - 7.43 10/18/2024 5:55 AM [facility] Comment:Test results repeate d. Venous pCO2 27(L) 35 - 50 mmHG 10/18/2024 5:55 AM [facility] Venous pO2 78(H) 0 - 60 mmHG 10/18/2024 5:55 AM [facility] Venous Total CO2 11(L) 23 - 29 mmol/L 10/18/2024 5:55 AM [facility] Respiratory Info NASAL 5 L/MIN 10/18/2024 5:17 AM EST Base Deficiency 17.1 mmol/L 5:55 AM [facility] Comment:Reference Range: Neg ative 2 to Positive 3 Blood Blood specimen / Unknown 10/18/2024 5:16 AM EST 10/18/2024 5:40 AM EST Fuad Winter MD LAB BLOOD ORD ERABLES [facility] [address] [place] [address], [facility] [address] [place] [address] * (ABNORMAL) Complete Blood Count, with Differential (10/18/2024 5:16 AM [facility]) White Blood Cell Count 11.5(H) 4.0 - 11.0 Thou/uL 10/18/2024 5:48 AM [facility] Platelet Count 265 150 - 450 Thou/uL 10/18/2024 5:48 AM [facility] Hemoglobin 8.5(L) 13.0 - 17.7 g/dL 10/18/2024 5:48 AM [facility] Hematocrit 27.7(L) 39.0 - 54.0 % 10/18/2024 5:48 AM [facility] Red Blood Cell Count 2.72(L) 4.50 - 6.20 Mil/uL 10/18/2024 5:48 AM [facility] MCV 102(H) 80 - 100 fL 10/18/2024 5:48 AM [facility] MCH 31.3(H) 27.0 - 31.0 pg 10/18/2024 5:48 AM [facility] MCHC 30.7 30.0 - 36.0 g/dL 10/18/2024 5:48 AM [facility] RDW 16.4(H) 11.5 - 14.5 % 10/18/2024 5:48 AM [facility] MPV 11.3 7.5 - 12.5 fL 10/18/2024 5:48 AM [facility] Neutrophils Auto 86.0 % 10/18/19 5:48 AM [facility] Immature Granulocytes 0.4 % 10/18/2024 5:48 AM [facility] Lymphocytes Auto 9.2 % 10/18/19 5:48 AM [facility] Monocytes Auto 4.3 % 10/18/2024 5:48 AM [facility] Eosinophils Auto 0.0 % 10/18/19 5:48 AM [facility] Basophils Auto 0.1 % 10/18/2024 5:48 AM [facility] Abs Neutrophils Auto 9.88(H) 2.00 - 7.50 Thou/uL 10/18/2024 5:48 AM [facility] Abs Immature Granulocytes 0.05 0.00 - 0.10 Thou/uL 10/18/2024 5:48 AM [facility] Abs Lymphocytes Auto 1.06(L) 1.50 - 4.50 Thou/uL 10/18/2024 5:48 AM [facility] Abs Monocytes Auto 0.49 0.20 - 1.50 Thou/uL 10/18/2024 5:48 AM [facility] Abs Eosinophils Auto 0.00 0.00 - 0.70 Thou/uL 10/18/2024 5:48 AM [facility] Abs Basophils Auto 0.01 0.00 - 0.20 Thou/uL 10/18/2024 5:48 AM [facility] Blood Blood specimen / Unknown 10/18/2024 5:16 AM EST 10/18/2024 5:42 AM EST Fuad Winter MD LAB [place] [address], [place] [address] * (ABNORMAL) Troponin T, High Sensitivity - STAT and in 1 hour (10/18/2024 5:16 AM EST) [facility] High Sensitivity Troponin T 1,830(HH) <23 ng/L 10/18/2024 6:38 AM [facility] Delta (Change) NO PREVIOUS RESULT <3 10/18/2024 6:38 AM [facility] Blood (Plasma/Serum) 10/18/2024 5:16 AM EST 10/18/2024 5:42 AM EST Fuad Winter MD LAB [place] [address], [place] [address] * Magnesium (10/18/2024 5:16 AM EST) [facility] Magnesium 1.7 1.6 - 2.7 mg/dL 10/18/2024 6:38 AM [facility] Blood (Plasma/Serum) 10/18/2024 5:16 AM EST 10/18/2024 5:42 AM EST Fuad Winter MD LAB BLOOD ORD ERABLES [address] [address], [address] [address] * (ABNORMAL) Basic Metabolic Panel (10/18/2024 5:16 AM EST) Glucose 569(HH) 65 - 99 mg/dL 10/18/2024 6:38 AM [facility] Comment:Fasting: <100 mg/dL, Non-Fasting: <200 mg/dL (ADA 2004) Blood Urea Nitrogen (BUN) 83(H) 8 - 21 mg/dL 10/18/2024 6:38 AM [facility] Creatinine 4.9(H) 0.5 - 1.3 mg/dL 10/18/2024 6:38 AM [facility] eGFR 11(L) >59 10/18/2024 6:38 AM [facility] Comment:CKD-EPI (2020) in mL /min/1.73 sq meters. Sodium 140 136 - 145 mmol/L 10/18/2024 6:38 AM [facility] Potassium 4.9 3.4 - 5.3 mmol/L 10/18/2024 6:38 AM [facility] Chloride 104 98 - 107 mmol/L 10/18/2024 6:38 AM [facility] CO2 8(LL) 22 - 33 mmol/L 10/18/2024 6:38 AM [facility] Anion Gap 28(H) 7 - 17 10/18/2024 6:38 AM [facility] Calcium 6.6(LL) 8.7 - 10.5 mg/dL 10/18/2024 6:38 AM [facility] BUN/Creatinine Ratio 17 10.0 - 25.0 Ratio 10/18/2024 6:38 AM [facility] Blood (Plasma/Serum) 10/18/2024 5:16 AM EST 10/18/2024 5:42 AM EST Fuad Winter MD LAB BLOOD ORD ERABLES [facility] [address] [place] [address], [address] [id number] documented in this encounter Visit Diagnoses Diagnosis [...] 50 units/mL, Indication for Anticoagulation: Acute IA New Bag 10/31/2024 4:37 PM EST 14 [...] documented as of this encounter Care Teams [employer] Relationship Specialty Start Date End Date Diaz Akers MD PCP - General Internal Medicine 10/20/24 documented as of this encounter
--- OUTSIDE RECORDS SUMMARY | 2024-11-12 13:22 | XMS_ITS | Clinical Summary ---
Author Organization [facility] Address [address] [place] [address] Care Team Providers Care Brine Tank Tender Name Role Phone Diaz Akers MD Primary [...] EST - 10/31/2024 6:26 PM EST Surgery [facility] Heart & Vascular [place] [facility] - Cardiac Catheterization Laboratory [address] [place] [address] Calixto Ureña MD CORONARY ANGIO W/LV 10/19/2024 Scanned Document CARDIOLOGY IP [address] [facility] [place] [address] JordanSejal rodriguez Tonia 10/18/2024 5:10 AM EST - 11/01/2024 4:42 PM EST Hospital Encounter [facility]TH 10 [address] [facility] [place] [address] Fuad Winter MD Perkins, MD El [...] Tobacco: Never Tobacco Cessation:Counseling Given: Not Answered [facility] Utilities Answer Date Recorded In the past 12 months has e [employer], gas, oil, or water [facility] threatened to shut off services in your [...] in the past 12 m [facility], were you homeless or living in a snf (including now)? No 10/20/2024 Sex and Gender [...] resultswithin the time period is included. Pathologist [facility] [place] POC Glucose 189(H) 65 - 99 mg/dL [...] 4.0 - 11.0 Thou/uL 11/01/2024 7:10 AM [facility] Platelet Count 261 150 - 450 Thou/uL 11/01/2024 7:10 AM [facility] Hemoglobin 9.2(L) 13.0 - 17.7 g/dL 11/01/2024 7:10 AM [facility] Hematocrit 29.7(L) 39.0 - 54.0 % 11/01/2024 7:10 AM [facility] Red Blood Cell Count 3.00(L) 4.50 - 6.20 Mil/uL 11/01/2024 7:10 AM [facility] MCV 99 80 - 100 fL 11/01/2024 7:10 AM [facility] MCH 30.7 27.0 - 31.0 pg 11/01/2024 7:10 AM [facility] MCHC 31.0 30.0 - 36.0 g/dL 11/01/2024 7:10 AM [facility] RDW 16.2(H) 11.5 - 14.5 % 11/01/2024 7:10 AM [facility] MPV 11.4 7.5 - 12.5 fL 11/01/2024 7:10 AM [facility] Blood Blood specimen / Unknown 11/01/2024 6:20 AM EST 11/01/2024 6:57 AM EST Jonna Donis PA-C [place] [address], [place] [address] * (ABNORMAL) Phosphorus (Early AM) (11/01/2024 6:20 AM EST) Only the most recent of15 resultswithin the time period is included. Phosphorus 4.7(H) 2.7 - 4.5 mg/dL 11/01/2024 7:58 AM [facility] Blood (Plasma/Serum) 11/01/2024 6:20 AM EST 11/01/2024 6:57 AM EST Jonna L Valley PA-C LAB BLOOD ORDERABL ES Performing Organization Address [facility] [place] [address], [place] [address] * MAGNESIUM (11/01/2024 6:20 AM EST) Only the most recent of17 resultswithin the time period is included. Magnesium 1.6 1.6 - 2.7 mg/dL 11/01/2024 7:58 AM [facility] Blood (Plasma/Serum) 11/01/2024 6:20 AM EST 11/01/2024 6:57 AM EST Jonna Giraldo Clari PA-C LAB BLOOD ORDERABL ES Performing Organization Address [facility] [place] [address], [place] [address] * (ABNORMAL) BASIC METABOLIC PANEL (11/01/2024 6:20 AM EST) Only the most recent of29 resultswithin the time period is included. Glucose 92 65 - 99 mg/dL 11/01/2024 7:58 AM [facility] Comment:Fasting: <100 mg/dL, Non-Fasting: <200 mg/dL (ADA 2005) Blood Urea Nitrogen (BUN) 41(H) 8 - 21 mg/dL 11/01/2024 7:58 AM [facility] Creatinine 4.5(H) 0.5 - 1.3 mg/dL 11/01/2024 7:58 AM [facility] eGFR 13(L) >59 11/01/2024 7:58 AM [facility] Comment:CKD-EPI (2020) in mL /min/1.73 sq meters. Sodium 140 136 - 145 mmol/L 11/01/2024 7:58 AM [facility] Potassium 4.8 3.4 - 5.3 mmol/L 11/01/2024 7:58 AM [facility] Chloride 104 98 - 107 mmol/L 11/01/2024 7:58 AM [facility] CO2 22 22 - 33 mmol/L 11/01/2024 7:58 AM EST [facility] Anion Gap 14 7 - 17 11/01/2024 7:58 AM [facility] Calcium 9.3 8.7 - 10.5 mg/dL 11/01/2024 7:58 AM EST [facility] BUN/Creatinine Ratio 9(L) 10.0 - 25.0 Ratio 11/01/2024 7:58 AM EST [facility] Blood (Plasma/Serum) 11/01/2024 6:20 AM EST 11/01/2024 6:57 AM EST Jonna Donis PA-C [place] [address], [place] [address] * CC CORONARY ANGIO W/LV (10/31/2024 6:34 PM EST) Anatomical Region Laterality Modality Radiographic Keily ging Narrative 10/31/2024 6:57 PM EST Table formatting from the original result was not included. Images from the original result were not included. [facility] Heart & Vascular [place] [facility] - Cardiac Catheterization Laboratory PATIENT DEMOGRAPHIC INFORMATION Name: Jorge Wilder : 1945 79 y.o. 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 Calixto Ureña MD [facility] Heart & Vascular [place] 10/31/2024 ??6:57 PM Coronary Findings Diagnostic Dominance: [...] MD LAB BLOOD ORDERABLES Performing Organization Address [facility] [place] [address], [place] [address] * (ABNORMAL) High Sensitivity Troponin T (10/31/2024 7:16 AM EST) Only the most recent of12 resultswithin the time period is included. High Sensitivity Troponin T 396(HH) <23 ng/L 10/31/2024 9:15 AM EST [facility] Delta (Change) NO PREVIOUS RESULT <3 10/31/2024 9:15 AM EST [facility] Plasma/Serum 10/31/2024 7:16 AM EST 10/31/2024 7:47 AM EST Madhav Ryan MD LAB BLOOD ORDERABLES Performing Organization Address [facility] [place] [address], [place] [address] * TSH, HIGHLY SENSITIVE (10/31/2024 7:16 AM EST) TSH, Highly Sensitive 2.06 0.27 - 4.20 mIU/L 10/31/2024 9:15 AM EST [facility] Plasma/Serum 10/31/2024 7:16 AM EST 10/31/2024 7:47 AM EST Madhav Ryan MD LAB BLOOD ORDERABLES Performing Organization Address [facility] Co de Phone Number [place] [id number], [place] [address] * (ABNORMAL) proBNP, N-terminal (10/29/2024 7:20 AM EST) Only the most recent of2 resultswithin the time period is included. proBNP, N-terminal 47,866(H) <450 pg/mL 10/29/2024 12:12 PM EST [facility] Plasma specimen / Unknown 10/29/2024 7:20 AM EST 10/29/2024 8:04 AM EST Madhav Ryan MD [place] [address], [place] [address] * ECG 12 lead (STAT) (10/27/2024 7:41 AM EST) Only the most recent of6 resultswithin the time period is included. Ventricular rate 60 BPM EKG [facility] Atrial rate 60 BPM EKG [facility] P-R interval 150 ms EKG [facility] QRS duration 84 ms EKG [facility] Q-T interval 488 ms EKG [facility] QTC calculation (Bazett) 488 ms EKG [facility] P axis 45 degrees EKG [facility] R axis 13 degrees EKG [facility] T axis 199 degrees EKG [facility] 10/27/2024 7:41 AM EST Narrative EKG HOSPITAL [...] in Anterior leads Confirmed by MD Ashish, [facility] ([id number]) on 10/27/2024 6:03:18 PM Madhav Ryan MD ECG ORDERABLES EKG [facility] * XR Chest 1 view-Portable (STAT) (10/25/2024 [...] 24 - 204 U/L 10/25/2024 10:25 AM [facility] Plasma/Serum 10/25/2024 8:27 AM EST 10/25/2024 9:16 AM EST Jorge Mcfarland MD LAB BLOOD ORDERAB LES Performing Organization Address [facility] [place] [address], [address] [address] * (ABNORMAL) B-Hydroxybutyrate (10/24/2024 7:11 AM EST) Only the most recent of4 resultswithin the time period is included. B-Hydroxybutyrate 2.36(H) <0.28 mmol/L 10/24/2024 10:30 AM [facility] Comment: In the [...] MD LAB BLOOD ORDERABLES Performing Organization Address [facility] [place] [address], [address] [address] * (ABNORMAL) PTH, Intact (10/23/2024 10:31 AM EST) PTH, Intact 579(H) 15 - 65 pg/mL 10/23/2024 12:23 PM [facility] Blood (Plasma/Serum) 10/23/2024 10:31 AM EST 10/23/2024 11:36 AM EST Jorge Mcfarland MD LAB BLOOD ORDERAB LES Performing Organization Address [facility] [place] [address], [place] [address] * (ABNORMAL) Calcium, Ionized (10/23/2024 10:31 AM EST) Calcium, Ionized 0.88(L) 1.17 - 1.33 mmol/L 10/23/2024 12:16 PM EST [facility] Blood Blood specimen / Unknown 10/23/2024 10:31 AM EST 10/23/2024 11:36 AM EST Jorge Mcfarland MD LAB BLOOD ORDERAB LES Performing Organization Address [facility] [place] [address], [place] [address] * (ABNORMAL) Calcium, Total (10/23/2024 10:31 AM EST) Calcium 7.4(L) 8.7 - 10.5 mg/dL 10/23/2024 12:13 PM EST [facility] Blood (Plasma/Serum) 10/23/2024 10:31 AM EST 10/23/2024 11:36 AM EST Jorge Mcfarland MD LAB BLOOD ORDERAB LES Performing Organization Address City/[facility] [place] [address], [place] [address] * Albumin (10/23/2024 10:31 AM EST) Albumin 3.5 3.4 - 4.8 g/dL 10/23/2024 12:13 PM EST [facility] Blood (Plasma/Serum) 10/23/2024 10:31 AM EST 10/23/2024 11:36 AM EST Jorge Mcfarland MD LAB BLOOD ORDERAB LES Performing Organization Address City/[facility]/ZIP Co de Phone Number [facility] [address] [place] [address], [facility] [address] [place] [address] * (ABNORMAL) LIPID PANEL (10/23/2024 6:05 AM EST) Cholesterol, Total 110 <200 mg/dL 2024 8:30 AM [facility] Triglycerides 141 <150 mg/dL 10/23/2024 8:30 AM [facility] Cholesterol, HDL 30(L) >39 mg/dL 10/23/19 8:30 AM [facility] Estimated LDL 52 <130 mg/dL 10/23/2024 8:30 AM [facility] Comment: NCEP Guidelines: ?< 100 mg/dL ??Optimal 100 - 129 mg/dL ??Near Optimal/Above Optimal 130 - 159 mg/dL ??Borderline High 160 - 189 mg/dL ??High ??>/= 190 mg/dL ??Very High Cholesterol/HDL Ratio 3.7 0.0 - 5.0 Ratio 10/23/2024 8:30 AM [facility] Comment: Relative Risk ? Ratio - Male ? Ratio - Female ?0.5 ?3.4 ?3.3 ?1.0 ?5.0 ?4.4 ?2.0 ?9.6 ?7.1 ?3.0 ? 23.4 ? 11.0 Plasma/Serum 10/23/2024 6:05 AM EST 10/23/2024 7:46 AM EST Adilia Woo MD [place] [address], [place] [address] * (ABNORMAL) Blood Gas, Venous (10/20/2024 10:39 AM EST) Only the most recent of7 resultswithin the time period is included. Venous Blood PH 7.29(L) 7.33 - 7.43 10/20/2024 10:54 AM EST [facility] Venous pCO2 39 35 - 50 mmHG 10/20/2024 10:54 AM [facility] Venous pO2 49 0 - 60 mmHG 10/20/2024 10:54 AM [facility] Venous Total CO2 20(L) 23 - 29 mmol/L 10/20/2024 10:54 AM [facility] Respiratory Info NASAL 4 L/MIN 10/20/2024 10:39 AM EST Base Deficiency 7.2 mmol/L 10:54 AM [facility] Comment:Reference Range: Neg ative 2 to Positive 3 Blood Blood specimen / Unknown 10/20/2024 10:39 AM EST 10/20/2024 10:47 AM EST Kristopher Hickey MD LAB BLOOD ORDERAB LES Performing Organization Address [facility] [place] [address], [place] [address] * Lactic Acid, Plasma (STAT) (10/20/2024 10:00 AM EST) Only the most recent of2 resultswithin the time period is included. Lactic Acid 0.8 0.5 - 1.9 mmol/L 10/20/2024 10:37 AM EST [facility] Blood Plasma specimen / Unknown 10/20/2024 10:00 AM EST 10/20/2024 10:07 AM EST Kristopher Hickey MD LAB BLOOD ORDERAB LES Performing Organization Address [facility] [place] [address], [facility] [address] [place] [address] * (ABNORMAL) Complete Blood Count, with Differential (10/19/2024 11:59 PM EST) Only the most recent of2 resultswithin the time period is included. White Blood Cell Count 11.5(H) 4.0 - 11.0 Thou/uL 10/20/2024 12:32 AM [facility] Platelet Count 271 150 - 450 Thou/uL 10/20/2024 12:32 AM [facility] Hemoglobin 8.9(L) 13.0 - 17.7 g/dL 10/20/2024 12:32 [facility] Hematocrit 28.6(L) 39.0 - 54.0 % 10/20/2024 12:32 AM [facility] Red Blood Cell Count 2.93(L) 4.50 - 6.20 Mil/uL 10/20/2024 12:32 [facility] MCV 98 80 - 100 fL 10/20/2024 12:32 AM [facility] MCH 30.4 27.0 - 31.0 pg 10/20/2024 12:32 AM [facility] MCHC 31.1 30.0 - 36.0 g/dL 10/20/2024 12:32 AM [facility] RDW 16.5(H) 11.5 - 14.5 % 10/20/2024 12:32 [facility] MPV 11.3 7.5 - 12.5 fL 10/20/2024 12:32 AM [facility] Neutrophils Auto 80.7 % 10/20/19 25 12:32 AM [facility] Immature Granulocytes 0.6 % 10/20/2024 12:32 [facility] Lymphocytes Auto 11.6 % 10/20/19 12:32 [facility] Monocytes Auto 6.7 % 10/20/2024 12:32 [facility] Eosinophils Auto 0.2 % 10/20/19 12:32 [facility] Basophils Auto 0.2 % 10/20/2024 12:32 [facility] Abs Neutrophils Auto 9.25(H) 2.00 - 7.50 Thou/uL 10/20/2024 12:32 AM [facility] Abs Immature Granulocytes 0.07 0.00 - 0.10 Thou/uL 10/20/2024 12:32 AM [facility] Abs Lymphocytes Auto 1.33(L) 1.50 - 4.50 Thou/uL 10/20/2024 12:32 AM [facility] Abs Monocytes Auto 0.77 0.20 - 1.50 Thou/uL 10/20/2024 12:32 AM [facility] Abs Eosinophils Auto 0.02 0.00 - 0.70 Thou/uL 10/20/2024 12:32 AM [facility] Abs Basophils Auto 0.02 0.00 - 0.20 Thou/uL 10/20/2024 12:32 AM [facility] Blood Blood specimen / Unknown 10/19/2024 11:59 PM EST 10/20/2024 12:25 AM EST Fuad Winter MD LAB BLOOD ORD ERABLES Performing Organization Address City/[facility]/[place] [address], [place] [address] * (ABNORMAL) Hemoglobin and Hematocrit (10/19/2024 2:25 PM EST) [facility] Hematocrit 32.3(L) 39.0 - 54.0 % 10/19/2024 3:39 PM [facility] Hemoglobin 9.9(L) 13.0 - 17.7 g/dL 10/19/2024 3:39 PM [facility] Blood Blood specimen / Unknown 10/19/2024 2:25 PM EST 10/19/2024 3:31 PM EST Kristopher Hickey MD [place] [address], [place] [address] * (ABNORMAL) Hemoglobin A1C with Estimated Average Glucose (10/19/2024 1:20 AM EST) [facility] Hemoglobin A1C 8.7(H) <5.7 % 10/19/2024 12:02 PM EST [facility] Comment: A1c% ? Interpretation 5.7 - 6.0 ?Increase risk of diabetes 6.1 - 6.4 ?Higher risk of diabetes > or = 6.5 ?? Consistent with diabetes Diabetes Care, 33(Supp 1):S1-S61, 2009 Estimated Average Glucose 203 mg/dL 10/19/2024 12:02 PM EST [facility] Blood specimen / Unknown 10/19/2024 1:20 AM EST 10/19/2024 2:17 AM EST Pushpa Gallegos MD LAB BLOOD ORDERABLES Performing Organization Address City/State/[facility] [place] [address], [place] [address] * US Guided Bedside Thoracentesis-Bilateral (10/18/2024 6:10 [...] Sample left with bedside RN. ACCESS: 6 Lithuanian Adep-M-Rjhlgaxq closed needle/catheter system ?? REQUESTING PRACTITIONER: Cheryl [...] adjacent organs or vascular structures. A 6 Lithuanian Jrqo-R-Ppbclvlt closed needle/catheter system was utilized for access. [...] adjacent organs or vascular structures. A 6 [place] Shdy-L-Hwuqsfvk closed needle/catheter system was utilized for access. 550 mL of clear devorah fluid was aspirated before drainage ceased. The catheter was removed and a sterile dressing applied. The patient tolerated the procedure well without evidence of complications. ?? Pushpa Glalegos MD [facility] ORDERABLES * Body Fluid Culture (aerobic, anaerobic and Gram stain) (10/18/2024 5:55 PM EST) Only the most recent of2 resultswithin the time period is included. Gram stain suggestive of Few neutrophils Mononuclear cells No organisms seen 10/18/2024 9:52 PM [facility] Culture No aerobes and anaerobes isolated after 7 days 10/25/2024 3:19 PM EST [facility] 10/18/2024 5:55 PM EST 10/18/2024 7:53 PM EST Fuad Winter MD MICROBIOLOGY - GENERAL ORDERABLES [facility] [address] [place] [address], [facility] [address] [place] [address] * Fungal Culture, Other Than Blood (10/18/2024 5:55 PM EST) Culture No fungus isolated 11/02/2024 8:34 AM EST [facility] 10/18/2024 5:55 PM EST 10/18/2024 7:54 PM EST Fuad Winter MD MICROBIOLOGY - GENERAL ORDERABLES Performing Organization Address City/[facility]/ZIP Co de Phone Number [facility] [address] [place] [address], * Cell Count, Reflex Differential, Body Fluid (10/18/2024 5:50 PM EST) Only the most recent of2 resultswithin the time period is included. Appearance, Body Fluid Cloudy 10/18/2024 8:25 PM EST [facility] Color [place] 10/18/2024 8:25 PM [facility] Nucleated Cells, Fluid 435 /CUMM 10/18/2024 8:24 PM [facility] RBC, Fluid 11,000 /CUMM 10/18/2024 8:24 PM [facility] Neutrophil, Body Fluid 3 % 10/18/2024 8:25 PM [facility] Lymphoctye, Body Fluid 27 % 10/18/2024 8:25 PM [facility] Monocyte, Body Fluid 21 % 10/18/2024 8:25 PM [facility] Histiocyte, Body Fluid 46 % 10/18/2024 8:25 PM [facility] Mesothelial, Body Fluid 3 % 10/18/2024 8:25 PM [facility] Smear Comment, Body Fluid The reference interval and other method performance specifications are unavailable for this body fluid. Comparison of the result with concentration in the blood, serum, or plasma is recommended 10/18/2024 8:25 PM EST [facility] 10/18/2024 5:50 PM EST 10/18/2024 6:49 PM EST Fuad Winter MD BODY FLUIDS A ND STOOLS ORDERABLES Performing Organization Address [facility] de Phone Number [address] [address], [place] [address] * Protein, Body Fluid (10/18/2024 5:50 PM EST) Only the most recent of2 resultswithin the time period is included. Source RIGHT PLEURAL EFFUSION 10/18/2024 6:49 PM EST [facility] Protein, Body Fluid 2.2 g/dL 10/18/2024 7:15 PM [facility] Comment:The reference interv al(s) and other method performance specifications are unavailable for this body fluid. Comparison of this result with the concentration in the blood, serum, or plasma is recommended. 10/18/2024 5:50 PM EST 10/18/2024 6:49 PM EST Fuad Winter MD BODY FLUIDS A ND STOOLS ORDERABLES Performing Organization Address [facility] Co de Phone Number [address] [address], [place] [address] * Glucose, Body Fluid (10/18/2024 5:50 PM [...] A ND STOOLS ORDERABLES Performing Organization Address [facility] [place] [address], [place] [address] * PH, BODY FLUID (10/18/2024 5:50 PM EST) Only the most recent of2 resultswithin the time period is included. Source RIGHT PLEURAL EFFUSION 10/18/2024 6:49 PM EST [facility] pH, Body Fluid 7.34 10/18/2024 7:14 PM EST [facility] 10/18/2024 5:50 PM EST 10/18/2024 6:49 PM EST Fuad Winter MD BODY FLUIDS A ND STOOLS ORDERABLES Performing Organization Address [facility] [place] [address], [place] [address] * LDH - Pleural Fluid (10/18/2024 5:39 [...] AND STOO LS ORDERABLES Performing Organization Address [facility] [place] [address], [place] [address] * ECHOCARDIOGRAM COMPREHENSIVE WITH CONTRAST (10/18/2024 12:14 [...] system. ?Dr. Pushpa Gallegos was notified by [employer] text at 12:36 PM. Technical Details Definity [...] LAB BLOOD ORD ERABLES Performing Organization Address [facility] [place] [address], [place] [address] * (ABNORMAL) Protime-INR (10/18/2024 5:16 AM EST) Anticoagulant IV HEPARIN, UNFRACTIONATED 10/18/2024 5:18 AM EST Prothrombin Time (PT) 13.9(H) 10.0 - 13.5 seconds 10/18/2024 5:58 AM EST [facility] INR 1.2 10/18/2024 5:58 AM EST [facility] Comment:INR Therapeutic Rang es: Standard dose anticoagulant 2.0 to 3.0, High dose anticoagulant 2.5-3.5. Blood Plasma specimen / Unknown 10/18/2024 5:16 AM EST 10/18/2024 5:42 AM EST Fuad Winter MD LAB BLOOD ORD ERABLES Performing Organization Address [facility] [place] [address], [place] [address] * (ABNORMAL) Osmolality (10/18/2024 5:16 AM EST) Osmolality, Serum/Plasma 359(H) 285 - 295 mOsm/Kg 10/18/2024 6:43 AM EST [facility] Blood (Plasma/Serum) 10/18/2024 5:16 AM EST 10/18/2024 5:42 AM EST Fuad Winter MD LAB BLOOD ORD ERABLES Performing Organization Address City/[facility]/[place] [address], [address] [place] [address] from Last 3 Months Advance Directives * Full Code (Latest Code Status on File) Date Activated Date Inactivated Comments 10/18/2024 7:04 AM Care Teams Brine Tank Tender Relationship Specialty Start Date End Date Diaz Akers MD PCP - General Internal Medicine 10/20/24
--- OUTSIDE RECORDS SUMMARY | 2024-11-12 13:22 | XMS_ITS | Clinical Summary ---
Author Organization [facility] Address [address] [facility] [address] [place] [address] Phone Care Team Providers Care Greens Planter Name Role Phone Unavailable Primary Care Provider [...] renal failure,Chronic kidney disease stage 4 (HCC) 87843 Units IJ Every 21 days 07/09/2021 Active epoetin kelley (EPOGEN,PROCRIT) injection 20,000 UnitsIndications:Anemia due to Renal Failure 38398 Units IV Every 14 days 08/16/2022 Active epoetin kelley (EPOGEN,PROCRIT) injection 10,000 UnitsIndications:Anemia due to Renal Failure 15261 Units IV Every 14 days 08/30/2022 Active epoetin kelley (EPOGEN,PROCRIT) injection 10,000 UnitsIndications:Anemia due to Renal Failure 85281 Units IV Every 14 days 09/27/2022 Active Epoetin Kelley-epbx solution 30,000 UnitsIndications:Anemia in chronic kidney disease,Chronic kidney disease stage 4 (HCC) 98175 Units IJ Once 12/13/2022 Ac tive Epoetin Kelley-epbx solution 20,000 UnitsIndications:Anemia in chronic kidney disease,Chronic kidney disease stage 4 (HCC) 93377 Units IJ Once 12/27/2022 Ac tive Active [...] * Hemoglobin A1c (11/13/2018 8:00 AM EST) [facility] Hemoglobin A1C 7.4 % [facility] Comment: New [...] average glucose, using the formula of the R3N-[place] Average Glucose study (ADAG), Diabetes Care, Vol.31,#8, May. 2007 11/13/2018 8:00 AM EST us Kev Esteves MD LAB BLOOD ORDERABLES Final Result [place] from Last 3 Months or Most Recently Relevant to Health Maintenance Insurance [address] [address] [place] [address]
--- OUTSIDE RECORDS SUMMARY | 2024-11-12 13:22 | XMS_ITS | Encounter Summary ---
Author Organization [facility] Address [address] [place] [address] Phone Care Team Providers Care Steward/Stewardess Smoke Room Name Role Phone Unavailable Primary Care Provider Unavailabl e Encounter Details Date Type Department Care Team (Late st Contact Info) Description 08/16/2023 Office Communication [facility] [address] [facility] [address] [place] [address] Kang Britt MD [phone] [facility] [address] [place] [address] Social History Tobacco Use Types [...]
--- OUTSIDE RECORDS SUMMARY | 2024-11-12 13:22 | XMS_ITS | Encounter Summary ---
Author Organization [facility]ly [facility] Address [address] [place] [address] Care Team Providers Care Customer Assistance Representative Name Role Phone Unavailable Primary Care Provider [...]
[2024-11-12 14:29] LABS: Parathyroid Hormone Intact 83.6 pg/mL (8.7-77.1)
[2024-11-12 15:22] LABS: Iron 50 mcg/dL (45-160); Percent Iron Saturation 24 % (15-50); Phosphorus 5.8 mg/dL (2.7-4.5); Total Iron Binding Capacity 209 mcg/dL (228-428); Unsaturated Iron Binding 159 ug/dL
[2024-11-12 15:25] LABS: Ferritin 180 ng/mL (20-250)
== END 2024-11-12 11:55 | disposition home or self-care (01) ==
LOC: HO.HMGCLDS 11:54
PROVIDERS: PCP Internal Medicine; Visit Provider Internal Medicine Hypertension Specialist
DX: N18.5 Chronic kidney disease, stage 5 (principal)
CPT/HCPCS: 36415; 82728; 83540; 83970; 84100

== ENCOUNTER 2024-11-14 14:29 | Outpatient (AMB) | payer OTHER, SELFPAY ==
--- NOTE | 2024-11-14 14:30 | A.OFFVIS_ITS ---
Vital Signs 11/14/24 14:31 Height 5 ft 7 in Weight 134 lb 7.712 oz BMI 21.1 BP 124/64 Blood Pressure Location Lt brachial Position Sitting Pulse 78 Pulse Source Pulse Oximeter Intake Visit Reasons: Hosp F/U Allergies No Known Allergies [No Known Allergies*] Allergy (Verified 11/08/24 17:22) Medication List - Last Reconciled 11/14/24 by Vasquez Chang MD aspirin 81 mg PO DAILY atorvastatin 80 mg PO DAILY blood sugar diagnostic (FreeStyle Test strips) As directed twice a day blood-glucose meter As directed calcitriol 0.5 mcg PO DAILY calcium carbonate 500 mg PO DAILY flash glucose scanning reader (DoochooStyle Wale 14 Day [place]) As directed flash glucose sensor (FreeStyle [place]ale 14 Day Sensor kit) As directed hydralazine 25 mg PO 3XD insulin glargine (Lantus Solostar U-100 Insulin) 8 units (0.08 mL) subcut QPM 90 days insulin lispro (Humalog KwikPen (U-100) Insulin) 4 units subcut TID isosorbide dinitrate 10 mg PO 3XD lancets As directed levothyroxine (Synthroid) 25 mcg PO DAILY linagliptin (Tradjenta) 5 mg PO DAILY metoprolol succinate ER 75 mg PO DAILY pen needle, diabetic As directed 1x daily terazosin 5 mg PO BEDTIME 90 days HPI Comments Details: Jorge is here for follow-up regarding various cardiac issues. Most recently, he was admitted to [facility]. Has a history of diabetes, hypertension. Recently presented with NSTEMI/diabetic ketoacidosis/COVID and was transferred to [facility]. He was appropriately treated for acute medical issues. Because of NSTEMI, he underwent further workup. Diagnostic catheterization was performed and that showed moderate LAD disease and severe stenosis of nondominant right right coronary artery. Recommended medical management. Echocardiogram had shown LV dysfunction. Overall, he states he feels good. No cardiac symptoms whatsoever. No angina. He actually states that he is doing very well since discharge. [facility] Medical History Heart attack Atherosclerotic cardiovascular disease CKD (chronic kidney disease) stage 5, GFR less than 15 ml/min Other and unspecified hyperlipidemia Essential hypertension Edema of both feet Prostate cancer Gout Hyperlipidemia Diabetes Surgical History History of hernia surgery Family History Mother No problems noted. Father No problems noted. Social History Housing: House Alcohol intake: never Patient Tobacco Use Status: Never used Tobacco e-Cigarette/Vaping Use: Never Used Second Hand Smoke Exposure: No service: No Current occupational status: retired Current occupation: rt handed Cognitive needs: No Hearing needs: No Vision needs: Yes (Glasses) Review of Systems Const Denies weakness ENT Denies dizziness Card Denies chest pain, Denies chest pain with activity, Denies syncope, Denies rapid heart rate, Denies pedal edema, Denies edema, Denies leg edema, Denies lightheadedness, Denies palpitations, Denies dyspnea, Denies dyspnea on exertion and Denies orthopnea Resp Denies cough, Denies dyspnea and Denies dyspnea on exertion GI Denies hematochezia and Denies change in stool character Musc Denies abnormal gait, Denies muscle cramps, Denies muscle weakness, Denies numbness, Denies radiating pain into limb and Denies tingling Neuro Denies abnormal gait, Denies dizziness, Denies syncope, Denies numbness, Denies tingling and Denies weakness Endo Denies palpitations Physical Exam Vital Signs: Last Vital Signs Pulse 78 11/14/24 14:31 BP 124/64 11/14/24 14:31 BMI result Body Mass Index 21.1 Const General: comfortable and no acute distress Orientation/consciousness: patient oriented x3 HEENT Other: Unremarkable Head: Yes normal to inspection Neck Neck: Yes normal visual inspection Chest Chest palpation & inspection: normal inspection of the chest Resp Auscultation: clear to auscultation bilaterally Cardio Palpation: normal PMI Heart sounds: S1 normal heart sound present, S2 normal heart sound present, no gallops, no murmurs and no rubs GI Palpation (GI): Soft to palpation Back/Spine/Pelvis Other: unremarkable Skin General skin exam: no rashes or lesions noted Neuro General: patient oriented x3 Extrem General: Yes normal to inspection Psych Mental Status: mental status grossly normal Assessment & Plan Assessment & Plan (1) Atherosclerotic cardiovascular disease: Code(s): I25.10 - Atherosclerotic heart disease of [place] coronary artery without angina pectoris Category: Medical Plan: Cardiac catheterization from [facility]-moderate proximal/mid LAD martin nosis. Severe stenosis of nondominant right coronary artery. Normal LVEDP. Recommended medical management. Clinically, he has got no angina. Continue aspirin, beta-blockers, statins. LDL from a prior [facility] admission 2023-47 mg/dL. Triglycerides 74 mg/dL. (2) Ischemic cardiomyopathy: Code(s): I25.5 - Ischemic cardiomyopathy Category: Medical Plan: In the echocardiogram from [facility]-10/18/2024-LVEF 28%. Anterior/anteroseptal/apex akinesis. Moderate mitral regurgitation. In 02/2024, echocardiogram at [facility] showed LVEF of 20 25% with LAD wall motion abnormality. We will recheck in about 2-3 months. If it remains low, consider referral to EP for ICD placement. As his kidney function is quite abnormal and he may need dialysis, could consider subcutaneous ICD to minimize the risk from bloodstream infections. (3) Essential hypertension: Code(s): I10 - Essential (primary) hypertension Category: Medical Plan: On metoprolol, hydralazine, nitrates. Blood pressure seems okay. (4) Type 2 diabetes mellitus with unspecified complications: Code(s): E11.8 - Type 2 diabetes mellitus with unspecified complications Category: Medical Plan: Not very well controlled as he recently had a DKA episode. Hemoglobin A1c as listed in PCP note 8.7%. On insulin. To be optimized per PCP recommendations. (5) Other and unspecified hyperlipidemia: Code(s): E78.5 - Hyperlipidemia, unspecified Category: Medical Plan: On high-dose statins. Plan Total time spent including review of outside hospital records, counseling, documentation, coordination of care-46 minutes. Orders: Orders CA echo transthoracic complete 2 Months I25.5 - Ischemic cardiomyopathy Coding Level of Care Code Est Pt Level 5 (95141) Diagnoses Atherosclerotic cardiovascular disease I25.10 Ischemic cardiomyopathy I25.5 Essential hypertension I10 Type 2 diabetes mellitus with unspecified complications E11.8 Other and unspecified hyperlipidemia E78.5
[2024-11-14 14:31] VITALS: BP 124/64; PULSE 78; BMI 21.1
--- OUTSIDE RECORDS SUMMARY | 2024-11-14 15:40 | XMS_ITS | Encounter Summary ---
Author Organization [facility] Address [address] [place] [address] Care Team Providers Care Publicity Director Name Role Phone Diaz Akers MD Primary Care Provider Soledad vailable Encounter Details Date Type Department Care Team (Late st Contact Info) Description 10/19/2024 Scanned Document CARDIOLOGY [address] [place] [phone] Sejal Blair [address] [address] Social History Tobacco Use Types Packs/Day Years Used Date Smoking Tobacco: Never Assessed [facility] Utilities Answer Date Recorded In the past 12 months has [employer], gas, oil, or water company threatened [...] any time in the past 12 m [facility], were you homeless or living in a residential (including now)? No 10/20/2024 Sex and Gender [...] documented as of this encounter Care Teams Publicity Director Relationship Specialty Start Date End Date Diaz Akers MD PCP - General Internal Medicine 10/20/24 documented as of this encounter
--- OUTSIDE RECORDS SUMMARY | 2024-11-14 15:41 | XMS_ITS | Encounter Summary ---
Author Organization [facility] Address [address] [place] [address] Care Team Providers Care Senior Paralegal Name Role Phone Diaz Akers MD Primary Care Provider Soledda vailable Reason for Visit * Reason Comments Abnormal Test Result * Auth/Cert Specialty Diagnoses / Procedures Referred By Danielle rao Referred To Contact Diagnoses DKA (diabetic ketoacidosis) ([facility]) NSTEMI, DKA, Pneumonia Procedures OTHER ADMINISTRATIVE ADJUSTMENT (INSURANCE) Referral ID Status Reason Start Date Expiration Date Visits Re quested Visits Authorized [id number] 1 1 Encounter Details Date Type Department Care Team (Late st Contact Info) Description 10/31/2024 5:21 PM EST - 10/31/2024 6:26 PM EST Surgery [facility] Heart & Vascular [place] at [facility] - Cardiac Catheterization Laboratory [address] [place] [address] Calixto Ureña MD 85 [facility] [address] [place] [id number] CORONARY ANGIO W/LV Social History Tobacco Use Types Packs/Day Years Used Date Smoking Tobacco: Never Passive Smoke Exposure: Never Smokeless Tobacco: Never Tobacco Cessation:Counseling Given: Not Answered [facility] Utilities Answer Date Recorded In the past 12 months has [employer], gas, oil, or water company threatened [...] any time in the past 12 m [facility], were you homeless or living in [...] been on hemodialysis follows with nephrology in [place]), insulin-dependent diabetes, hypertension presented from outside hospital and transferred to [facility] for concerns of NSTEMI and [...] 1830. On 10/18/2024, he was transferred to [facility] intensive care unit. He received treatment to DKA, acidosis and hyperglycemia improved on intravenous fluid and insulin therapy. Upon admission to [facility] NT-proBNP was found to have [...] titration of his medications through his primary tax map technician.. Endocrine service provided recommendations for insulin and he was switched from Januvia to Tradjenta at the time of discharge. Consults: Consults placed: Procedures Inpatient consult to cardiology ([facility]) Inpatient consult to cardiology ([facility]) Inpatient consult to Endocrinology Inpatient consult to Nutrition Services Procedures: Surgical/Procedural Cases on this Admission Case IDs Date Procedure Surgeon Location Status [id number] 10/31/24 CORONARY ANGIO W/LV Calixto Ureña MD DIRECTOR OF LITIGATION Comp Diagnostic Studies: XR Chest 1 view-Portable [...] effusions unchanged. Interpreted by: Mitchell Ascencio DO Rolls Baker I personally reviewed the images and the [...] Sample left with bedside RN. ACCESS: 6 Estonian Wwbn-T-Ofsyocdv closed needle/catheter system REQUESTING PRACTITIONER: Cheryl Blue [...] traversingadjacent organs or vascular structures. A 6 Estonian Qdpu-G-Jxwhezfu closed needle/catheter system was utilized for access. [...] adjacent organs or vascular structures. A 6 Estonian Guda-V-Igpxjnwp closed needle/catheter system was utilized for access. [...] system. Dr. Pushpa Gallegos was notified by Xencor text at 12:36 PM. XR Chest 1 [...] atelectasis, respectively. Interpreted by: Prem Coffman MD Rolls Baker I personally reviewed the images and the [...] system. Dr. Pushpa Gallegos was notified by 3D Forms at 12:36 PM. Results from last 7 [...] through Care Everywhere. * Angiogram Care After (Armenian) documented in this encounter Medications at Time [...] 11/01/2024 9:27 AM EST Endocrinology Progress Note MACHINING DEPARTMENT SUPERVISOR Endocrinology - Medicine Today's Date: 11/01/2024 [...] are interchangable*)- order B-D Debby 4 mm Paden (15 mL). Humalog KwikPen (U100) (the following are interchangable) - order B-D Debby 4 mm Paden (15 mL). * Lantus Solostar, Basaglar KwikPen, [...] 47 Diet: Diet Cardiac; Carb Counting 60g/meal 2841-8581 kcal; 2 gm NA (Low Sodium); Low [...] Intake/Output Summary (Last 24 hours) at 11/01/2024 0979 Last data filed at 11/01/2024 0916 Gross [...] intake - dietary recall from the pt and/director voice, and NPO status. Time spent communicating with other health director long term care including the RN Signed Day Casarez Endocrinology [...] level of independence with functional mobility. Current [facility] Basic Mobility Score: 23 Rehab [...] Progressive Mobility Progressive Mobility Level Achieved Ambulation [facility] Basic Mobility Turning from your [...] Climbing 3-5 steps with a railing? 3 [facility] Basic Mobility Score 23 Therapy [...] d/t HTN + DM (neph Dr in [place]), admit as xfer fromOSH with dyspnea (COVID+) [...] Calcitriol daily. Needs to continue follow-up with escalation engineer on d/c. Sign: Garth Perez DO 11/01/2024 12:58 PM * Ysabel Jones PA-C - 11/01/2024 7:25 AM EST Images from the original note were not included. 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 He was initially admitted to the MICU on insulin drip. Troponin found to be elevated 8393-2385, EKG noted to be sinus with poor R wave progression and nonspecific ST changes. He was initiated on a heparin drip for NSTEMI. Course further complicated by acute HFrEF LVEF 28%, COVID, and ALISA on CKD. [facility] with moderate proximal and mid LAD calcified focal stenosis, severe stenosis of nondominant RCA, recommended for medical management. Plan [facility] 10/31: moderate proximal and mid LAD [...] agreement with plan of care as above. [facility] Cardiology will continue to follow. Subjective Denies [...] 10/31/2024 8:26 PM EST Pt transported to [facility] on monitor. 0 KENDALL Richardson [...] 4:29 PM EST Certified Diabetes Care & Administrator Health Care Facility Note: Patient meets criteria for evaluation due [...] on Tuesday this [facility] can give him a reader with a [...] from diet unless treating low BG. Given [facility] Diabetes Tool Kit, Thriving with [...] [phone] Signed: Abbey RODNEY, RN, [facility] 10/31/24 8PM * Garth Perez DO - 10/31/2024 9:51 AM EST Date 10/31/2024 Assessment & Plan 79y/o male PMHx DM, HTN, CKD V (bCR~5 from 05/2023) d/t HTN + DM (neph Dr in [place]), admit as xfer fromOSH with dyspnea (COVID+) [...] from the original note were not included. 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 He was initially admitted to the MICU on insulin drip. Troponin found to be elevated 2625-5573, EKG noted to be sinus with poor R wave progression and nonspecific ST changes. He was initiated on a heparin drip forNSTEMI. Course further complicated by acute HFrEF LVEF 28%, COVID, and ALISA on CKD. Awaiting [facility] today. Plan NSTEMI NSVT HTN HsT [...] agreement with plan of care as above. [facility] Cardiology will continue to follow. Subjective Denies [...] Medrano MD - 10/30/2024 9:43 AM EST [facility] Medicine Progress note Assessment & [...] d/t HTN + DM (neph Dr in [place]), admit as xfer fromOSH with dyspnea (COVID+) [...] from the original note were not included. [facility] Cardiology Transfer Service Progress Note Chief Complaint: [...] today - Strict I&Os, daily weights Primary Technology Intern: [facility] Cardiology will continue to follow. Case discussed with [facility] attending Dr. Valentino Subjective Pt reports he [...] d/t HTN + DM (neph Dr in [place]), admit as xfer fromOSH with dyspnea (COVID+) [...] hyperparathyroidism - continue calcitriol 0.5 mcg daily [facility] timing - TBD Subjective HPI Continues with O2 oxy mask overnight-weaned to NC this AM Heparin drip ongoing No dyspnea symptoms He remains patient despite multiple days of delay for [facility] Review of Systems Respiratory: negative Cardiovascular: [...] Diet Diabetic/ Calorie Controlled; Carb Counting 60g/meal 1522-7317 kcal History Diabetes History Pre-Admission Regimen: Lantus Solostar 10-14 units Januvia 100 mg daily Diabetes Management: Daiz Akers MD (PCP) Subjective Chief Complaint Diabetes [...] in the patient record Speaking with a performance test consultant Reviewing Labs & Radiology Signed Lucinda Whyte Endocrinology - Medicine 10/29/2024 8:33 AM * Macy Macias PA-C - 10/29/2024 7:45 AM EST Images from the original note were not included. [facility] Cardiology Transfer Service Progress Note Chief Complaint: [...] Plan NSTEMI NSVT HTN - Plan for [facility] on 10/30 -Troponin elevated 1830->4171, EKG [...] today - Strict I&Os, daily weights Primary Technology Intern: [facility] Cardiology will continue to follow. Case discussed with [facility] attending Dr. Contreras Subjective Pt reports that he feels well Patient denies chest pain, shortness of breath, dizziness, lightheadedness, nausea, vomiting, palpitations Objective Telemetry Reviewed: NSR 78 Last Vitals Pulse:61,Resp:18,BP:(!) 144/65,SpO2:95 %,Weight:65.2 kg (143 lb 11.8 oz) Temp Last 24 hrs: Temp Min: 96.7 ??F (35.9 ??C) Max: 98.2 ??F (36.8 ??C) Intake/Output Summary (Last 24 hours) at 10/29/2024 0758 Last data filed at 10/29/2024 0633 Gross [...] d/t HTN + DM (neph Dr in [place]), admit as xfer fromOSH with dyspnea (COVID+) and DKA. ?NSTEMI. TTE 10/18/24 - EF 28% - new. Assessment CKD 5 NSTEMI Anemia of CKD Hypocalcemia COVID + Plan No change to GFR RADHA risk remains unchanged [facility] timing - TBD Lytes reviewed - [...] 10/28/2024 9:31 AM EST Endocrinology Progress Note MACHINING DEPARTMENT SUPERVISOR Endocrinology - Medicine Today's Date: 10/28/2024 [...] Diet Diabetic/ Calorie Controlled; Carb Counting 60g/meal 8990-3124 kcal Steroids: None Infusions: heparin (porcine) IV [...] outside hospital with URI symptoms, transferred to [facility] for management of DKA and [...] 75 mg daily - Continue telemetry -- labelling machine operator most likely be on Monday 10/30, please [...] various nights and back to diet pending [facility] for several days with concern that he [...] Subjective Overnight: Patient did not go to [facility] yesterday, stable overnight no acute events Today: Patient seen and examined at this morning. He is on supplemental oxygen. He states he is feeling well and awaits [facility]. I communicated that the cath is again [...] Patient remains on heparin drip pending cardiac labview programmer. Patient requires intermittent doses of IV Lasix for pulmonary edema and work of breathing. Kavya Burgess MD. PGY-[address] Text Preferred Associated attestation - Madhav Ryan [...] outside hospital with URI symptoms, transferred to [facility] for management of DKA and [...] 75 mg daily - Continue telemetry -- labelling machine operator most likely be on Monday 10/30, please [...] patient has been n.p.o. at midnight pending [facility] for several days resuming a diet in [...] Subjective Overnight: Patient did not go to [facility] yesterday, stable overnight no acute events Today: Patient seen and examined at this morning. He is on supplemental oxygen. He states he is feeling well and awaits [facility]. I communicated that the cath is again [...] gap. Patient remains on heparin drippending cardiac labview programmer. Patient requires intermittent doses of IV Lasix for pulmonary edema and work of breathing. Donavon Rodgers MD PGY-[address] Text Preferred Associated attestation - Madhav Ryan [...] d/t HTN + DM (neph Dr in [place]), admit as xfer fromOSH with dyspnea (COVID+) [...] data within the past 24 hours Sign: Grath Perez DO 10/27/2024 11:12 AM * Day Casarez APRN - 10/27/2024 9:07 AM EST Endocrinology Progress Note MACHINING DEPARTMENT SUPERVISOR Endocrinology - Medicine Today's Date: 10/27/2024 [...] Diet Diabetic/ Calorie Controlled; Carb Counting 60g/meal 8790-7365 kcal Steroids: none Infusions: dextrose, 25 mL/hr, [...] / Covid and DKA. Cannot rule out [place], COVID myocarditis, or stress induced cardiomyopathy at [...] private room post cath High risk for SWING DRIVER remains unchanged Recommend avoiding albuterol transition to [...] 2/3 @ 2:30 Dr. Mario Alberto Alvarez [facility] cardiology will continue to follow. Case discussed with attending, Dr. Contreras Plan was communicated to primary team /and the [place] 3 team IMPROVE SCORE: . Stepdown / ICU / CCU Stay: 1-->Stepdown / ICU / CCU stay Age > 60 yrs: 1--> Age > 60 years IMPROVE SCORE: 2 DVT PPX: Heparin drip CODE STATUS:full code HCP/Decision maker: Patient Telemetry:Yes This note was prepared using voice recognition software and direct typing. Please excuse inadvertent old coin dealer or typing errors, or uncorrected word substitutions. [...] system. Dr. Pushpa Gallegos was notified by Lane text at 12:36 PM. Imaging Studies XR [...] effusions unchanged. Interpreted by: Mitchell Ascencio DO Rolls Baker I personally reviewed the images and the [...] Sample left with bedside RN. ACCESS: 6 Estonian Kxrt-T-Yalhcsdm closed needle/catheter system REQUESTING PRACTITIONER: Cheryl Blue [...] traversingadjacent organs or vascular structures. A 6 Estonian Cltf-R-Devcbxzt closed needle/catheter system was utilized for access. [...] adjacent organs or vascular structures. A 6 Estonian Wrfk-B-Kjenbpiv closed needle/catheter system was utilized for access. [...] system. Dr. Pushpa Gallegos was notified by Lane text at 12:36 PM. XR Chest 1 [...] atelectasis, respectively. Interpreted by: Prem Coffman MD Rolls Baker I personally reviewed the images and the [...] / Covid and DKA. Cannot rule out [place], COVID myocarditis, or stress induced cardiomyopathy at this point. NSTEMI likely type II demand however unable to rule out type I hence awaiting cardiac Medication regimen Consulted IC appreciate input Patient will remain n.p.o. at midnight for hopefully for C and [facility] spoke with nephrology Dr. Perez who is in agreement to have the patient proceed with cath in a.m. given no availability today Continue heparin gtt per ACS protocol Continue ASA 81 mg daily Continue atorvastatin 80 mg daily Continue Toprol-XL 75 mg p.o. daily Continuous telemetry monitoring Patient will need a private room post cath High risk for SWING DRIVER remains unchanged ALISA on CKD Creatinine peak [...] 2/3 @ 2:30 Dr. Mario Alberto Alvarez [facility] cardiology will continue to follow. Case discussed with attending, Dr. Contreras Plan was communicated to primary team dr Neymar Mcfarland /and the [place] 3 team IMPROVE SCORE: Stepdown / ICU / CCU Stay: 1-->Stepdown / ICU / CCU stay Age > 60 yrs: 1--> Age > 60 years IMPROVE SCORE: 2 DVT PPX: SC Heparin CODE STATUS:full code HCP/Decision maker: Patient Telemetry:Yes This note was prepared using voice recognition software and direct typing. Please excuse inadvertent old coin dealer or typing errors, or uncorrected word substitutions. [...] system. Dr. Pushpa Gallegos was notified by Lane text at 12:36 PM. Imaging Studies XR [...] effusions unchanged. Interpreted by: Mitchell Ascencio DO Rolls Baker I personally reviewed the images and the [...] Sample left with bedside RN. ACCESS: 6 Estonian Bjnj-L-Jwkvbuin closed needle/catheter system REQUESTING PRACTITIONER: Cheryl Blue [...] traversingadjacent organs or vascular structures. A 6 Estonian Aetb-E-Bduyhjob closed needle/catheter system was utilized for access. [...] adjacent organs or vascular structures. A 6 Estonian Mqgd-F-Okfzjkay closed needle/catheter system was utilized for access. [...] system. Dr. Pushpa Gallegos was notified by Lane text at 12:36 PM. XR Chest 1 [...] atelectasis, respectively. Interpreted by: Prem Coffman MD Rolls Baker I personally reviewed the images and the [...] Lateral leads Confirmed by DO Ladd Kyla ([id number]) on 10/25/2024 8:09:06 PM Medications Medications Scheduled [...] level of independence with functional mobility. Current [facility] Basic Mobility Score: 20 Rehab [...] Level Achieved Ambulation Ambulation Distance (Feet) 15 [facility] Basic Mobility Turning from your [...] Climbing 3-5 steps with a railing? 3 [facility] Basic Mobility Score 20 Therapy [...] d/t HTN + DM (neph Dr in [place]), admit as xfer fromOSH with dyspnea (COVID+) [...] hypocalcemia and secondary hyperparathyroidism. His risk of SWING DRIVER remains unchanged Subjective HPI Vipul remains with [...] 10/26/2024 9:39 AM EST Endocrinology Progress Note MACHINING DEPARTMENT SUPERVISOR Endocrinology - Medicine Today's Date: 10/26/2024 [...] team patient will be going to the [facility]. Currently n.p.o. Addendum: Notified by team, cath [...] outside hospital with URI symptoms, transferred to [facility] for management of DKA and [...] patient has been n.p.o. at midnight pending [facility] for several days resuming a diet in [...] Subjective Overnight: Patient did not go to [facility] yesterday, stable overnight no acute events Today: Patient seen and examined at this morning. He is on supplemental oxygen. He states he is feeling well and awaits [facility]. Patient continues to be very positive and [...] gap. Patient remains on heparin drippending cardiac labview programmer. Patient requires intermittent doses of IV Lasix for pulmonary edema and work of breathing. Donavon Rodgers MD PGY-[address] Text Preferred Associated attestation - Neymar Mcfarland [...] / Covid and DKA. Cannot rule out [place], COVID myocarditis, or stress induced cardiomyopathy at [...] 2/3 @ 2:30 Dr. Mario Alberto Alvarez [facility] cardiology will continue to follow. Case discussed with attending, Dr. Contreras Plan was communicated to primary team dr Neymar Mcfarland /and the [place] 3 team IMPROVE SCORE: Stepdown / ICU / CCU Stay: 1-->Stepdown / ICU / CCU stay Age > 60 yrs: 1--> Age > 60 years IMPROVE SCORE: 2 DVT PPX: Heparin drip CODE STATUS:full code HCP/Decision maker: Patient Telemetry:Yes This note was prepared using voice recognition software and direct typing. Please excuse inadvertent old coin dealer or typing errors, or uncorrected word substitutions. [...] system. Dr. Pushpa Gallegos was notified by Lane text at 12:36 PM. Imaging Studies XR [...] effusions unchanged. Interpreted by: Mitchell Ascencio DO Rolls Baker I personally reviewed the images and the [...] Sample left with bedside RN. ACCESS: 6 Estonian Hzhs-C-Kpwtrxct closed needle/catheter system REQUESTING PRACTITIONER: Cheryl Blue [...] traversingadjacent organs or vascular structures. A 6 Estonian Utyh-P-Aeqqndlg closed needle/catheter system was utilized for access. [...] adjacent organs or vascular structures. A 6 Estonian Wznc-C-Flmypdle closed needle/catheter system was utilized for access. [...] system. Dr. Pushpa Gallegos was notified by Lane text at 12:36 PM. XR Chest 1 [...] atelectasis, respectively. 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 He feels very confident about his function [...] outside hospital with URI symptoms, transferred to [facility] for management of DKA and [...] patient has been n.p.o. at midnight pending [facility] for several days resuming a diet in [...] Subjective Overnight: Patient did not go to [facility] yesterday, stable overnight no acute events Today: Patient seen and examined at this morning. He is on supplemental oxygen. He states he is feeling well and awaits [facility]. Patient has been very patient and awaits [facility] Objective Last Vitals Pulse:77,Resp:16,BP:(!) 145/70,SpO2:(!) 91 %,Weight:65.9 [...] gap. Patient remains on heparin drippending cardiac labview programmer. Patient requires intermittent doses of IV Lasix for pulmonary edema and work of breathing. Donavon Rodgers MD PGY-[address] Text Preferred Associated attestation - Neymar Mcfarland [...] fluid overload patient has not gone to [facility] yet We will keep fingersticks every 4 [...] (Order- Specific), Last Rate: 15 Units/kg/hr (10/24/24 5913) Discharge Planning: Depending on disposition, was on [...] / Covid and DKA. Cannot rule out [place], COVID myocarditis, or stress induced cardiomyopathy at [...] arrange for cardiology follow-up prior to discharge [facility] cardiology will continue to follow. Case discussed with attending, Dr. Contreras Plan was communicated to primary team dr Neymar Mcfarland /and the [place] [id number] team IMPROVE SCORE Stepdown / ICU / CCU Stay: 1-->Stepdown / ICU / CCU stay Age > 60 yrs: 1--> Age > 60 years IMPROVE SCORE: 2 DVT PPX: Heparin drip CODE STATUS:full code HCP/Decision maker: Patient Telemetry:Yes This note was prepared using voice recognition software and direct typing. Please excuse inadvertent old coin dealer or typing errors, or uncorrected word substitutions. [...] system. Dr. Pushpa Gallegos was notified by Lane text at 12:36 PM. Imaging Studies XR [...] effusions unchanged. Interpreted by: Mitchell Ascencio DO Rolls Baker I personally reviewed the images and the [...] Sample left with bedside RN. ACCESS: 6 Estonian Rdfn-M-Gfyivduo closed needle/catheter system REQUESTING PRACTITIONER: Cheryl Blue [...] traversingadjacent organs or vascular structures. A 6 Estonian Ygta-D-Gbwqpirk closed needle/catheter system was utilized for access. [...] adjacent organs or vascular structures. A 6 Estonian Ghrj-G-Qftcdaxm closed needle/catheter system was utilized for access. [...] system. Dr. Pushpa Gallegos was notified by Lane text at 12:36 PM. XR Chest 1 [...] atelectasis, respectively. Interpreted by: Prem Coffman MD Rolls Baker I personally reviewed the images and the [...] outside hospital with URI symptoms, transferred to [facility] for management of DKA and [...] the patient will be taken to the [facility] and will remain n.p.o. until the procedure is over. The patient had increasing oxygen requirements overnight and repeat chest x-ray showed pulmonary edema. We discussed these findings with the [facility] as they would like to give gentle [...] insulin. The patient has been n.p.o. pending [facility] and there is concern that he may [...] gap. Patient remains on heparin drippending cardiac labview programmer. 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 He feels very confident about his function [...] found for: TACROLIMUS No results found for: [id number] , TOTVOL , CRCLR , PERIOD No [...] 10/21 2104 Sincerely, Marty Kent MD, [employer] Education Professor Chronic Kidney Disease [facility] Attending Hl7 Interface Developer, Partner, [facility] Continuous Medication Ordered Dose/Rate, [...] / Covid and DKA. Cannot rule out [place], COVID myocarditis, or stress induced cardiomyopathy at [...] arrange for cardiology follow-up prior to discharge [facility] cardiology will continue to follow. Case discussed with attending, Dr. Contreras Plan was communicated to primary team dr Neymar Mcfarland /and the [place] 3 team IMPROVE SCORE: Stepdown / ICU / CCU Stay: 1-->Stepdown / ICU / CCU stay Age > 60 yrs: 1--> Age > 60 years IMPROVE SCORE: 2 DVT PPX: Heparin drip CODE STATUS:full code HCP/Decision maker: Patient Telemetry:Yes This note was prepared using voice recognition software and direct typing. Please excuse inadvertent old coin dealer or typing errors, or uncorrected word substitutions. [...] system. Dr. Pushpa Gallegos was notified by Lane text at 12:36 PM. Imaging Studies XR [...] effusions unchanged. Interpreted by: Mitchell Ascencio DO Rolls Baker I personally reviewed the images and the [...] Sample left with bedside RN. ACCESS: 6 Estonian Juhg-V-Rbxcrqqa closed needle/catheter system REQUESTING PRACTITIONER: Cheryl Blue [...] traversingadjacent organs or vascular structures. A 6 Estonian Cjso-O-Eeyhdedb closed needle/catheter system was utilized for access. [...] adjacent organs or vascular structures. A 6 Estonian Xfly-I-Pfezrnvo closed needle/catheter system was utilized for access. [...] system. Dr. Pushpa Gallegos was notified by Lane text at 12:36 PM. XR Chest 1 [...] atelectasis, respectively. Interpreted by: Prem Coffman MD Rolls Baker I personally reviewed the images and the [...] QT has lengthened Confirmed by MD Alex, [facility] (42) on 10/22/2024 7:57:16 AM Medications Medications [...] outside hospital with URI symptoms, transferred to [facility] for management of DKA and [...] gap. Patient remains on heparin drippending cardiac labview programmer. Donavon Rodgers MD PGY-[address] Text Preferred Associated attestation - Neymar Mcfarland [...] (he follows with Dr Henrik Bird in [place]), who presented intially to OSH with URI [...] with slight improvement to 4.3 Plan for labview programmer today. Lázaro Score with 100cc of contrast: [...] long time and has follow-up with a escalation engineer in [place]. He feels very confident about his function [...] found for: TACROLIMUS No results found for: [id number] , TOTVOL , CRCLR , PERIOD No [...] 10/21 2105 Sincerely, Marty Kent MD, OSCAR Education Professor Chronic Kidney Disease [facility] Attending Hl7 Interface Developer, Partner, [facility] Phys[facility] Continuous Medication Ordered Dose/Rate, Route, [...] / Covid and DKA. Cannot rule out WA, COVID myocarditis, or stress induced cardiomyopathy at [...] arrange for cardiology follow-up prior to discharge [facility] cardiology will continue to follow. Case discussed [...] software and direct typing. Please excuse inadvertent old coin dealer or typing errors, or uncorrected word substitutions. [...] system. Dr. Pushpa Gallegos was notified by Lane text at 12:36 PM. Imaging Studies XR [...] effusions unchanged. Interpreted by: Mitchell Ascencio DO Rolls Baker I personally reviewed the images and the [...] Sample left with bedside RN. ACCESS: 6 Estonian Mtbs-K-Awgfkxyv closed needle/catheter system REQUESTING PRACTITIONER: Cheryl Blue [...] traversingadjacent organs or vascular structures. A 6 Estonian Flvp-Y-Mtnzlzbv closed needle/catheter system was utilized for access. [...] adjacent organs or vascular structures. A 6 Estonian Egic-K-Tyzarjzs closed needle/catheter system was utilized for access. [...] system. Dr. Pushpa Gallegos was notified by Lane text at 12:36 PM. XR Chest 1 [...] atelectasis, respectively. Interpreted by: Prem Coffman MD Rolls Baker I personally reviewed the images and the [...] QT has lengthened Confirmed by MD Alex, [facility] (42) on 10/22/2024 7:57:16 AM Medications Medications [...] 10/21/24 0803 10/21/24 0309 10/20/24 0215 10/19/24 6859 SODIUM mmol/L -- 145 -- -- 140 [...] outside hospital with URI symptoms, transferred to [facility] for management of DKA and [...] telemetry -- Cardiology will bring patient for labview programmer tomorrow for RHC and LHC, NPO at [...] gap. Patient remains on heparin drippending cardiac labview programmer. Donavon Rodgers MD PGY-[address] Text Preferred Associated attestation - Neymar Mcfarland [...] Diet Diabetic/ Calorie Controlled; Carb Counting 60g/meal 9833-7669 kcal Steroids: None. Drips: None. History Diabetes [...] Diet Diabetic/ Calorie Controlled; Carb Counting 60g/meal 7787-3484 kcal Steroids: None. Drips: None. History Diabetes [...] outside hospital with URI symptoms, transferred to [facility] for management of DKA and [...] Antonio Hameed PGY1, Internal Medicine Available on Lane Text 10/21/2024 10:39 AM Associated attestation - [...] MD (Nina) MPH Chief, Department of Medicine [phone] * Linda Rivera PA-C - 10/21/2024 6:28 AM EST Images from the original note were not included. [facility] Cardiology Transfer Service Progress Note Chief Complaint: [...] viral pneumonia and DKA. Cannot rule out WA, COVID myocarditis, or stress induced cardiomyopathy at [...] outpatient cardiology follow up prior to discharge. [facility] cardiology will continue to follow. Case discussed [...] inpatient Arrived From Hospital General Information Comments [facility] Initial Information How to be Addressed Vipul Source of Information patient;family;health record Stated Reason for Admission Covid, Heart, High Sugar Levels Patient Aware of Diagnosis yes Limitations on Visitors/Phone Calls none Temporary Family Living Arrangements (While Hospitalized) none needed Adaptive Services not applicable Does the Patient Have a CT DNR [place] Bracelet or State DNR Form? no Clinical Trial not applicable Designated Caregiver for Discharge Coordination Do You Have a Designated Caregiver for Discharge? yes Designated Caregiver's Name Prem Wilder Caregiver's Relationship to Patient child's nurse's Caregiver's Address Same as the patient's address. [...] or living in a residential (including now)? N Food Insecurity Within the [...] of Pulmonary, Critical Care, and Sleep Medicine [address] [place] [address], [address] [address] Critical Care Progress Note Assessment & Plan [...] system. Dr. Pushpa Gallegos was notified by Lane text at 12:36 PM. GI: >Nutrition: Diet/Nutrition Received: consistent carb/diabetic diet Diet Diabetic/ Calorie Controlled; Carb Counting 60g/meal 5966-0342 kcal Renal: CKD 5, stable Monitor >Intake [...] if appropriate. This report was generated using Flowdock Speaking dictation software. Although every attempt has [...] Diet Diabetic/ Calorie Controlled; Carb Counting 60g/meal 0640-4348 kcal Steroids: None. Drips: None. History Diabetes [...] from the original note were not included. [facility] CRITICAL CARE RESIDENT PROGRESS NOTE LOS: 2 CODE:: Code Status Procedures Full Code Subjective Hospital Course: This is a 79 yo male with PMHx of stage V CKD (has not been on hemodialysis follows [place] nephrologyin [place]), insulin-dependent diabetes, hypertension, HFrEF with acute decompensation [...] Problem List Principal Problem: DKA (diabetic ketoacidosis) ([facility]) (POA: Yes) Resolved Problems: Assessment Neymar Baum Meño 79 y.o. w/ PMHx of stage V CKD (has not been on hemodialysis follows with nephrology in [place]), insulin-dependent diabetes, hypertension admitted to ICU for [...] Diet Diabetic/ Calorie Controlled; Carb Counting 60g/meal 3390-5177 kcal NEPHROLOGY ALISA on stage III CKD [...] Tilley. Sign Lesly Luke MD Available on Lane Text 10/20/2024 7:48 AM * Linda Rivera PA-C - 10/20/2024 6:40 AM EST Images from the original note were not included. [facility] Cardiology Transfer Service Progress Note Chief Complaint: [...] viral pneumonia and DKA. Cannot rule out WA, COVID myocarditis, or stress induced cardiomyopathy at [...] outpatient cardiology follow up prior to discharge. [facility] cardiology will continue to follow. Case discussed [...] been on hemodialysis follows with nephrology in [place]), insulin-dependent diabetes, hypertension admitted to ICU for [...] MD Donavon Amos MD PGY-[address] Text Preferred ICU Check-list Code: Code Status [...] Sample left with bedside RN. ACCESS: 6 Estonian Gybw-W-Wrnznqot closed needle/catheter system REQUESTING PRACTITIONER: Cheryl Blue [...] traversingadjacent organs or vascular structures. A 6 Estonian Iupp-F-Qwdfzivw closed needle/catheter system was utilized for access. [...] adjacent organs or vascular structures. A 6 Estonian Zzem-B-Orhrqnbx closed needle/catheter system was utilized for access. [...] effusions unchanged. Interpreted by: Mitchell Ascencio DO Rolls Baker DIET/NUTRITION: Diet/Nutrition Received: NPO Diet NPO; Meds Behavioral/Sedation scales: CAM-ICU Delirium Present: Negative Rea Agitation Sedation Scale (RASS) / Modified RASS: 0-->alert and calm Ventilator settings: Associated attestation - Kristopher Hickey MD - 10/19/2024 11:18 PM EST [facility] Attestation note: Kristopher Hickey MD [...] Pulmonary, Critical Care, and Sleep Medicine [address], [address], [place] [address] Critical Care Progress Note Assessment & Plan [...] system. Dr. Pushpa Gallegos was notified by Lane text at 12:36 PM. GI: >Nutrition: Diet/Nutrition [...] if appropriate. This report was generated using UserTesting dictation software. Although every attempt has been made by the provider to proofread this document, occasional misspellings and typographical errors may still be present. Sign: Kristopher Hickey MD 10/19/2024 9:56 AM * Linda Rivera PA-C - 10/19/2024 6:33 AM EST Images from the original note were not included. [facility] Cardiology Transfer Service Progress Note Chief Complaint: [...] viral pneumonia and DKA. Cannot rule out WA, COVID myocarditis, or stress induced cardiomyopathy at [...] outpatient cardiology follow up prior to discharge. [facility] cardiology will continue to follow. Case discussed [...] Pulmonary, Critical Care, and Sleep Medicine [address], [address], [place] [address] Critical Care Progress Note Assessment & Plan [...] There were discussions of HD with his escalation engineer Dr. Pelon Smith Electrolyte monitoring Avoid nephrotoxins, monitor urine output Get nephrology on board given likely need for cardiac cath >Intake & Output No intake or output data in the 24 hours ending 10/18/24 2261 Endo: Glucommander protocol Gentle IV fluids given concern for volume overload Heme/Onc: On heparin drip for NSTEMI ID: No signs or symptoms of infection Monitor off antibiotics >Antibiotics: Drips: dextrose 5 % and sodium chloride 0.9 %, 10 mL/hr heparin (porcine) IV infusion - low dose protocol, 12 Units/kg/hr (Order- Specific), Last Rate: 12 Units/kg/hr (10/18/24 0562) insulin regular (HumuLIN-R) IV infusion - Glucommander, 0-100 Units/hr, Last Rate: 10 Units/hr (10/18/24 0729) Lines: Peripheral IV - Single Lumen (Adult) [...] if appropriate. This report was generated using Flowdock Speaking dictation software. Although every attempt has been made by the provider to proofread this document, occasional misspellings and typographical errors may still be present. Sign: Pushpa Gallegos MD 10/18/2024 7:54 AM documented in this encounter H&P Notes * Cheryl Blue MD - 10/18/2024 8:33 AM EST Images from the original note were not included. [facility] MICU H&P LOS: 0 CODE: Code Status Procedures Full Code Assessment and Plan Problem List Principal Problem: DKA (diabetic ketoacidosis) (HCC) (POA: Yes) Resolved Problems: Assessment Neymar Wilder 79 y.o. w/ PMHx of stage V CKD (has not been on hemodialysis follows with nephrology in [place]), insulin-dependent diabetes, hypertension admitted to ICU for [...] V CKD (with prior discussions with patient's escalation engineer regarding possible initiation of HD) Plan by [...] CKD (there were discussions with patient's prior escalation engineer Dr. Pelon Smith regarding HD) Initial BUN/creatinine [...] been on hemodialysis follows with nephrology in [place]), insulin-dependent diabetes, hypertension presented from outside hospital and transferred to [facility] for concerns of NSTEMI and [...] atelectasis, respectively. Interpreted by: Prem Coffman MD Rolls Baker I personally reviewed the images and the [...] Procedure(s): Bilateral thoracentesis Indications: Bilateral pleural effusion Cytotechnologist Supervisor: None Anesthesia: None Fluid: 850ml of clear [...] ESTAssociated Order(s): IP CONSULT TO NUTRITION SERVICES [facility] Nutrition Note Visit Type: initial [...] was initially admitted to ICU, transferred to [place] on 10/20, now on floor level of [...] lb 1.8 oz) Fluids: 1600ml based on COMPO CASTER Method (or per MD/team) Estimated/Assessed Carbohydrates Needs: [...] 1. 79 y.o. male with CAD, s/p WA 02/2024, transferred from [facility] with NSTEMI. 2. HFrEF with newly reduced [...] Illness 79 y.o. male with CAD, s/p WA 02/2024, HFrEF , CKD stage V, Cr [...] H&P, physical assessment, and educated on cardiac Loan Closer procedure was approximately 60 minutes The following information is collected for participation in the [employer] [employer] CATH/PCI Registry (ACCNCDR) and is used for submission of data and may not be entirely consistent with the clinical evaluation. ACC-NCDR CathPCI V5 Collection Form History and Risk Factors Hypertension: Yes Diabetes mellitus: Yes Hx of CAD: No Prior WA: Yes Date of most recent WA: 02/08/2024 Prior CABG: No Prior PCI: No [...] assessed: No Indications and Presentation Indication(s) for labview programmer visit: suspected CAD Chest pain symptom assessment: [...] medical Struve coronary artery disease status post WA in February 2024, heart failure with reduced [...] patient. Risks including but not limited to WA, stroke, emergency bypass surgery, bleeding or vascular [...] care provider on file. Physician Requesting Consult: uPshpa Gallegos MD Reason for Consultation: Chronic kidney disease stage V Impression Neymar Wilder is a 79 y.o. male with PMHx including CKD V (BlCr 5.0, 11/03), DM II, HTN who was transferred from [facility] to on 10/18/24 with concern for NSTEMI [...] been on hemodialysis follows with nephrology in [place]), insulin-dependent diabetes, hypertension presented from outside hospital and transferred to [facility] for concerns of NSTEMI and [...] found for: TACROLIMUS No results found for: [id number] , TOTVOL , CRCLR , PERIOD No [...] as written. Signed, Marty Kent MD, OSCAR Education Professor, CKD, [facility] Chief of Nephrology, [place] [place] * Tangela Reed PA-C - [...] Diabetes Management [facility]: [facility], interviewed over [...] from the original note were not included. [facility] CARDIOLOGY TRANSFER SERVICE Date of Consult: 10/18/2024 Patient's Primary Care Physician: No primary care provider on file. Physician Requesting Consult: Pushpa Gallegos MD Primary Technology Intern: - Reason for Consultation: Shortness of [...] monitor with RN Nesha Jacobsen RN 10/18/24 7817 * Kristian Angeles RN - 10/18/2024 12:07 [...] history of diabetes presents in transfer from [place] with the patient was found to be [...] from external provider, facility, or healthcare organization: [place] ED note History obtained from other source [...] to fluid overload. Adriel Funez RN 10/18/24 5649 * Adriel Funez RN - 10/18/2024 5:24 [...] out type I hence awaiting cardiac 11/01 [facility] 10/31: moderate proximal and mid LAD [...] legal medical record. Vickie Norris RN, CDS [phone] * Case Coordination-Payor Communication - Meme Jones [...] Continued Stay Review Date: 10/31/2024 Clinical Update: [facility] today, remains NPO Neymar remains on [...] arrived to the unit at 2000 from labview programmer. Upon assessment pt is Aox4, NSR on [...] cath fluids. Heparin gtt infusing. Sent to labview programmer for LHC.Strict isolation d/c. Oksana Zhang 10/31/2024 [...] 1830. On 10/18/2024, he was transferred to [facility] intensive care unit. He received treatment to DKA, acidosis and hyperglycemia improved on intravenous fluid and insulin therapy. Upon admission to [facility] NT-proBNP was found to have [...] clinically stable for transition. Plan is for [facility] today. At this time transition plan [...] given today per order. Pt transferring to [facility], Report given to RN. Zaria Leyva 10/28/2024 6:30 PM * Plan of Care - Anny Joyce PA-C - 10/28/2024 3:36 PM EST Images from the original note were not included. [facility] Cardiology Transfer Service Plan of Care Note Pt noted to have ~20 beats of Vtach on monitor. Reportedly asymptomatic and hemodynamically stable during episode. Recommendations: -Aggressive electrolyte replacement with 2g IV Mag and 20 mg PO K+ -Lopressor 25 mg PO x1 with plan to increase Toprol-XL 100 mg daily tomorrow -No antiarrhythmic at this time -Pacer pads on -Tentatively planned for [facility] Tuesday, if VT persists contact labview programmer sooner for consideration of more urgent catheterization [...] Burgess MD Internal Medicine PGY2 Available via [employer] 10/28/24 10:54 AM * Plan of Care [...] remained stable and we continue optimizing for [facility]. Catheter most likely happen early next week. He was appreciated update and I answered all his questions to the best my ability. Donavon Rodgers MD PGY-[address] Text Preferred * Plan of Care - [...] of Care Reviewed With: patient Outcome Evaluation: 5875-9769: Neymar was A&Ox4 and had no complaints [...] Summary: pending cardiac cath Patient is from [place]. Recommendation: dispo plan home with HC services [...] ability. Donavon Rodgers MD PGY-[address] Text Preferred * Plan of Care - Sirisha Adams RN - 10/26/2024 4:49 AM EST Progress: improving Outcome Evaluation: 4301-6834: Neymar remains alert and oriented *4. no shortness of breath. Continued on 4L oxymask, sating above goal. Continued on heparin drip. NPO since midnight for left and right heart cath today. slept between care. Sirisha Adams 10/26/2024 4:49 AM * Plan of Care - Olga Terrell RN - 10/25/2024 6:50 PM EST Plan of Care Reviewed With: patient Progress: improving Outcome Evaluation: 0957-4151. Pt alert and oriented *4. No reports [...] PM EST Patient set to go to labview programmer tomorrow, has been made NPO at midnight. Called bed management to facilitate transfer of patient to [address] in a private room 2/2 COVID [...] update Donavon Rodgers MD PGY-[address] Text Preferred * Plan of Care - [...] Review Date: 10/25/2024 Clinical Update: NPO for labview programmer today. Spot dose Lasix. Continues on heparin gtt while awaiting labview programmer. Plan: #NSTEMI #Acute decompensated HFrEF (LVEF 28%) [...] Reviewed With: patient Progress: improving Outcome Evaluation: 6186-9577. Pt alert and oriented *4. No reports [...] for his father to go to the [facility] today. He had increasing oxygen requirements overnight [...] ability. Donavon Rodgers MD PGY-[address] Text Preferred * Plan of Care - Sirisha Adams RN - 10/24/2024 6:44 AM EST Outcome Evaluation: 0060-6790: Neymar is alert and oriented *4. Denies [...] Terrell RN - 10/23/2024 6:57 PM EST [phone]. Pt alert and oriented *4. No reports [...] With: patient Progress: no change Outcome Evaluation: 9169-4378: No acute changes. Heparin gtt adjusted per [...] of Care Reviewed With: patient Outcome Evaluation: 0854-1294: In the beginning of the shift Neymar [...] ability. Donavon Rodgers MD PGY-[address] Text Preferred * Rehab Therapy Consults - hSae Chopra, PT - 10/22/2024 10:00 AM EST [...] level of independence with functional mobility. Baseline [facility] Basic Mobility Score: 24 Current [facility] Basic Mobility Score: 20 Objective [...] outside hospital with URI symptoms, transferred to [facility] for management of DKA and [...] Progressive Mobility Level Achieved Transferring to Chair [facility] Basic Mobility Turning from your [...] Climbing 3-5 steps with a railing? 3 [facility] Basic Mobility Score 20 Therapy [...] PT goal 1 Transfer Goal 1 (PT) [place] Level/Cues Needed (Transfer Goal 1, PT) modified independence Time Frame (Transfer Goal 1, PT) 2 weeks Activity/Assistive Device (Transfer Goal 1, PT) transfers, all;walker, rolling Gait Training Goal 1 (PT) Time Frame (Gait Training Goal 1, PT) 2 weeks [place] Level (Gait Training Goal 1, PT) modified independence Activity/Assistive Device (Gait Training Goal 1, PT) gait (walking locomotion);walker, rolling Distance (Gait Training Goal 1, PT) 300 feet Stairs Goal 1 (PT) [place] Level/Cues Needed (Stairs Goal 1, PT) supervision [...] of Care Reviewed With: patient Outcome Evaluation: 6648-4751: Neymar was A&Ox4 and had no complaints [...] Progress: no change Outcome Evaluation: Arrived from [facility] around 1600. Skin check complete with [...] person supports:Self and Family PCP: Updated in [employer]. Added his preferred pharmacy as well. Anticipated [...] Continue Cierra Greenberg MC PGY-3 Internal Medicine [facility] Available on TigerText * Plan of [...] tonight. Donavon Rodgers MD PGY-[address] Text Preferred * Case Coordination-Payor Communication - Meme Jones - 10/19/2024 7:24 AM EST [facility] General Statutes Sec: [id number]: Notification of determination communicated within 2business days of receipt of all information necessary to complete the review. Please fax authorization determination to [phone] or call [phone] * Case Coordination-Payor Communication - Nathalia Liao RN - 10/19/2024 6:14 AM EST Type: (Inpt/Obs): Inpatient Date of Admission: 10/18/2024 Admitting Dx: DKA HPI: 79 y.o. w/ PMHx of stage V CKD (has not been on hemodialysis follows with nephrology in [place]), insulin-dependent diabetes, hypertension presented from outside hospital and transferred to [facility] for concerns of NSTEMI and [...] V CKD (with prior discussions with patient's escalation engineer regarding possible initiation of HD) Vitals: Pulse:86,Resp:20,BP:138/69,SpO2:92 [...] CKD (there were discussions with patient's prior escalation engineer Dr. Pelon Smith regarding HD) Initial BUN/creatinine [...] OF CARE TEST ORDERABLES Performing Organization Address [facility] Phone Number HOSPITAL LAB See Below * (ABNORMAL) POCT Glucose, Fingerstick (11/01/2024 8:21 AM EST) POC Glucose 111(H) 65 - 99 mg/dL 11/01/2024 11:56 AM EST Blood specimen / Unknown 11/01/2024 8:21 AM EST 11/01/2024 11:56 AM EST Fuad Winter MD POINT OF CARE TEST ORDERABLES Performing Organization Address [facility] Number [facility] LAB See Below * (ABNORMAL) Phosphorus (Early AM) (11/01/2024 6:20 AM EST) Phosphorus 4.7(H) 2.7 - 4.5 mg/dL 11/01/2024 7:58 AM EST [facility] Blood (Plasma/Serum) 11/01/2024 6:20 AM EST 11/01/2024 6:57 AM EST Jonna Donis PA-C LAB BLOOD ORDERABL ES Performing Organization Address [facility] Number [address] [address], [address] [address] * MAGNESIUM (11/01/2024 6:20 AM EST) Magnesium 1.6 1.6 - 2.7 mg/dL 11/01/2024 7:58 AM EST [facility] Blood (Plasma/Serum) 11/01/2024 6:20 AM EST 11/01/2024 6:57 AM EST Jonna Donis PA-C LAB BLOOD ORDERABL ES Performing Organization Address [facility] [place] [address], [place] [address] * (ABNORMAL) COMPLETE BLOOD COUNT, WITHOUT DIFFERENTIAL (11/01/2024 6:20 AM EST) [facility] White Blood Cell Count 9.1 4.0 - 11.0 Thou/uL 11/01/2024 7:10 AM [facility] Platelet Count 261 150 - 450 Thou/uL 11/01/2024 7:10 AM [facility] Hemoglobin 9.2(L) 13.0 - 17.7 g/dL 11/01/2024 7:10 AM [facility] Hematocrit 29.7(L) 39.0 - 54.0 % 11/01/2024 7:10 AM [facility] Red Blood Cell Count 3.00(L) 4.50 - 6.20 Mil/uL 11/01/2024 7:10 AM [facility] MCV 99 80 - 100 fL 11/01/2024 7:10 AM [facility] MCH 30.7 27.0 - 31.0 pg 11/01/2024 7:10 AM [facility] MCHC 31.0 30.0 - 36.0 g/dL 11/01/2024 7:10 AM [facility] RDW 16.2(H) 11.5 - 14.5 % 11/01/2024 7:10 AM [facility] MPV 11.4 7.5 - 12.5 fL 11/01/2024 7:10 AM [facility] Blood Blood specimen / Unknown 11/01/2024 6:20 AM EST 11/01/2024 6:57 AM EST Jonna Donis PA-[place] [address], [place] [address] * (ABNORMAL) BASIC METABOLIC PANEL (11/01/2024 6:20 AM EST) [facility] Glucose 92 65 - 99 mg/dL 11/01/2024 7:58 AM [facility] Comment:Fasting: <100 mg/dL, Non-Fasting: <200 mg/dL (ADA 2004) Blood Urea Nitrogen (BUN) 41(H) 8 - 21 mg/dL 11/01/2024 7:58 AM [facility] Creatinine 4.5(H) 0.5 - 1.3 mg/dL 11/01/2024 7:58 AM [facility] eGFR 13(L) >59 11/01/2024 7:58 AM [facility] Comment:CKD-EPI (2020) in mL /min/1.73 sq meters. Sodium 140 136 - 145 mmol/L 11/01/2024 7:58 AM [facility] Potassium 4.8 3.4 - 5.3 mmol/L 11/01/2024 7:58 AM [facility] Chloride 104 98 - 107 mmol/L 11/01/2024 7:58 AM [facility] CO2 22 22 - 33 mmol/L 11/01/2024 7:58 AM [facility] Anion Gap 14 7 - 17 11/01/2024 7:58 AM [facility] Calcium 9.3 8.7 - 10.5 mg/dL 11/01/2024 7:58 AM [facility] BUN/Creatinine Ratio 9(L) 10.0 - 25.0 Ratio 11/01/2024 7:58 AM [facility] Blood (Plasma/Serum) 11/01/2024 6:20 AM EST 11/01/2024 6:57 AM EST Jonna Donis PA-[place] [address], [place] [address] * (ABNORMAL) POCT Glucose, Fingerstick (11/01/2024 1:58 [...] from the original result were not included. [facility] [place] at [facility] - Cardiac Catheterization Laboratory PATIENT DEMOGRAPHIC INFORMATION Name: Neymar Wilder : 1945 79 y.o. 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 Calixto Ureña MD [facility] [place] 10/31/2024 ??6:57 PM Coronary Findings Diagnostic Dominance: [...] POCT Glucose, Fingerstick (10/31/2024 4:45 PM EST) [facility] POC Glucose 74 65 - 99 mg/dL 10/31/2024 4:46 PM EST Blood specimen / Unknown 10/31/2024 4:45 PM EST 10/31/2024 4:46 PM EST Fuad Winter MD POINT OF CARE TEST ORDERABLES HOSPITAL LAB See Below * Heparin Assay (Anti Xa) (10/31/2024 3:28 PM EST) [facility] Anti Xa 0.36 IU/mL 10/31/2024 4:07 PM EST [facility] Comment: (NOTE) Heparin Thromboembolic/Standard/Full Dose Protocol: [...] Performing Organization Address [facility] [place] [address], [place] [address] * POCT Glucose, Fingerstick (10/31/2024 12:04 PM EST) POC Glucose 92 65 - 99 mg/dL 10/31/2024 12:21 PM EST Blood specimen / Unknown 10/31/2024 12:04 PM EST 10/31/2024 12:21 PM EST Fuad Winter MD POINT OF CARE TEST ORDERABLES Performing Organization Address [facility] Phone Number [facility] LAB See Below * POCT Glucose, Fingerstick (10/31/2024 8:13 AM EST) POC Glucose 84 65 - 99 mg/dL 10/31/2024 8:15 AM EST Blood specimen / Unknown 10/31/2024 8:13 AM EST 10/31/2024 8:15 AM EST Fuad Winter MD POINT OF CARE TEST ORDERABLES Performing Organization Address [facility] Phone Number [facility] See Below * (ABNORMAL) High Sensitivity Troponin T (10/31/2024 7:16 AM EST) [facility] High Sensitivity Troponin T 396(HH) <23 ng/L 10/31/2024 9:15 AM [facility] Delta (Change) NO PREVIOUS RESULT <3 10/31/2024 9:15 AM EST [facility] Plasma/Serum 10/31/2024 7:16 AM EST 10/31/2024 7:47 AM EST Madhav Ryan MD LAB BLOOD ORDERABLES Performing Organization Address [facility]/[place] [address], [place] [address] * TSH, HIGHLY SENSITIVE (10/31/2024 7:16 AM EST) [facility] TSH, Highly Sensitive 2.06 0.27 - 4.20 mIU/L 10/31/2024 9:15 AM EST [facility] Plasma/Serum 10/31/2024 7:16 AM EST 10/31/2024 7:47 AM EST Madhav Ryan MD LAB BLOOD ORDERABLES Performing Organization Address City/[facility] Co de Phone Number [facility] [address] [place] [address], [place] [address] * Heparin Assay (Anti Xa) (10/31/2024 7:16 AM EST) [facility] Anti Xa 0.54 IU/mL 10/31/2024 8:07 AM [facility] Comment: (NOTE) Heparin Thromboembolic/Standard/Full Dose Protocol: [...] LAB BLOOD ORDERAB LES Performing Organization Address [facility]/State/[place] [address], [facility] [address] [place] [address] * (ABNORMAL) Phosphorus (Early AM) (10/31/2024 7:16 AM EST) Phosphorus 4.7(H) 2.7 - 4.5 mg/dL 10/31/2024 8:55 AM [facility] Blood (Plasma/Serum) 10/31/2024 7:16 AM EST 10/31/2024 7:47 AM EST Jonna Giraldo [facility] PA-C LAB BLOOD ORDERABL ES Performing Organization Address City/[facility]/[place] [address], [place] [address] * MAGNESIUM (10/31/2024 7:16 AM EST) Pathologist [facility] Magnesium 1.7 1.6 - 2.7 mg/dL 10/31/2024 8:55 AM [facility] Blood (Plasma/Serum) 10/31/2024 7:16 AM EST 10/31/2024 7:47 AM EST Jonna L [facility] PA-C LAB BLOOD ORDERABL ES Performing Organization Address [facility]/[place] [address], [place] [address] * (ABNORMAL) COMPLETE BLOOD COUNT, WITHOUT DIFFERENTIAL (10/31/2024 7:16 AM EST) Pathologist [facility] White Blood Cell Count 8.9 4.0 - 11.0 Thou/uL 10/31/2024 8:14 AM [facility] Platelet Count 289 150 - 450 Thou/uL 10/31/2024 8:14 AM [facility] Hemoglobin 9.6(L) 13.0 - 17.7 g/dL 10/31/2024 8:14 AM [facility] Hematocrit 31.4(L) 39.0 - 54.0 % 10/31/2024 8:14 AM [facility] Red Blood Cell Count 3.13(L) 4.50 - 6.20 Mil/uL 10/31/2024 8:14 AM [facility] MCV 100 80 - 100 fL 10/31/2024 8:14 AM [facility] MCH 30.7 27.0 - 31.0 pg 10/31/2024 8:14 AM [facility] MCHC 30.6 30.0 - 36.0 g/dL 10/31/2024 8:14 AM [facility] RDW 16.5(H) 11.5 - 14.5 % 10/31/2024 8:14 AM [facility] MPV 11.3 7.5 - 12.5 fL 10/31/2024 8:14 AM [facility] Blood Blood specimen / Unknown 10/31/2024 7:16 AM EST 10/31/2024 7:47 AM EST Jonna Donis PA-[place] [address], [place] [address] * (ABNORMAL) BASIC METABOLIC PANEL (10/31/2024 7:16 AM EST) Glucose 82 65 - 99 mg/dL 10/31/2024 8:55 AM [facility] Comment:Fasting: <100 mg/dL, Non-Fasting: <200 mg/dL (ADA 2005) Blood Urea Nitrogen (BUN) 40(H) 8 - 21 mg/dL 10/31/2024 8:55 AM [facility] Creatinine 4.6(H) 0.5 - 1.3 mg/dL 10/31/2024 8:55 AM [facility] eGFR 12(L) >59 10/31/2024 8:55 AM [facility] Comment:CKD-EPI (2020) in mL /min/1.73 sq meters. Sodium 144 136 - 145 mmol/L 10/31/2024 8:55 AM [facility] Potassium 4.7 3.4 - 5.3 mmol/L 10/31/2024 8:55 AM [facility] Chloride 104 98 - 107 mmol/L 10/31/2024 8:55 AM [facility] CO2 24 22 - 33 mmol/L 10/31/2024 8:55 AM [facility] Anion Gap 16 7 - 17 10/31/2024 8:55 AM EST [facility] Calcium 8.8 8.7 - 10.5 mg/dL 10/31/2024 8:55 AM EST [facility] BUN/Creatinine Ratio 9(L) 10.0 - 25.0 Ratio 10/31/2024 8:55 AM EST [facility] Blood (Plasma/Serum) 10/31/2024 7:16 AM EST 10/31/2024 7:47 AM EST Jonna Donis PA-C LAB BLOOD ORDERABL ES Performing Organization Address [facility]/[place] [address], [address] [address] * POCT Glucose, Fingerstick (10/31/2024 2:18 AM EST) POC Glucose 88 65 - 99 mg/dL 10/31/2024 2:20 AM EST Blood specimen / Unknown 10/31/2024 2:18 AM EST 10/31/2024 2:20 AM EST Fuad Winter MD POINT OF CARE TEST ORDERABLES Performing Organization Address City/[facility]/ZIP Co de Phone Number [facility] See Below * (ABNORMAL) POCT Glucose, Fingerstick (10/30/2024 9:03 PM EST) POC Glucose 147(H) 65 - 99 mg/dL 10/30/2024 9:43 PM EST Blood specimen / Unknown 10/30/2024 9:03 PM EST 10/30/2024 9:43 PM EST Fuad Winter MD POINT OF CARE TEST ORDERABLES [facility] See Below * (ABNORMAL) POCT Glucose, Fingerstick (10/30/2024 4:24 PM EST) POC Glucose 124(H) 65 - 99 mg/dL 10/30/2024 4:25 PM EST Blood specimen / Unknown 10/30/2024 4:24 PM EST 10/30/2024 4:25 PM EST Fuad Winter MD POINT OF CARE TEST ORDERABLES Performing Organization Address [facility] LAB See Below * POCT Glucose, Fingerstick (10/30/2024 2:00 PM EST) POC Glucose 99 65 - 99 mg/dL 10/30/2024 2:04 PM EST Blood specimen / Unknown 10/30/2024 2:00 PM EST 10/30/2024 2:04 PM EST Fuad Winter MD POINT OF CARE TEST ORDERABLES Performing Organization Address [facility] LAB See Below * POCT Glucose, Fingerstick (10/30/2024 12:35 PM EST) POC Glucose 99 65 - 99 mg/dL 10/30/2024 12:36 PM EST Blood specimen / Unknown 10/30/2024 12:35 PM EST 10/30/2024 12:36 PM EST Fuad Winter MD POINT OF CARE TEST ORDERABLES Performing Organization Address [facility] LAB See Below * POCT Glucose, Fingerstick (10/30/2024 8:43 AM EST) POC Glucose 95 65 - 99 mg/dL 10/30/2024 8:44 AM EST Blood specimen / Unknown 10/30/2024 8:43 AM EST 10/30/2024 8:44 AM EST Fuad Winter MD POINT OF CARE TEST ORDERABLES Performing Organization Address [facility] LAB See Below * Heparin Assay (Anti Xa) (10/30/2024 7:09 AM EST) Anti Xa 0.50 IU/mL 10/30/2024 8:13 AM EST [facility] Comment: (NOTE) Heparin Thromboembolic/Standard/Full Dose Protocol: [...] LAB BLOOD ORDERAB LES Performing Organization Address [facility]/[place] [address], [place] [address] * (ABNORMAL) Phosphorus (Early AM) (10/30/2024 7:09 AM EST) Phosphorus 5.1(H) 2.7 - 4.5 mg/dL 10/30/2024 8:47 AM EST [facility] Blood (Plasma/Serum) 10/30/2024 7:09 AM EST 10/30/2024 7:54 AM EST Jonna Donis PA-C LAB BLOOD ORDERABL ES Performing Organization Address [facility] [place] [address], [place] [address] * MAGNESIUM (10/30/2024 7:09 AM EST) Magnesium 1.7 1.6 - 2.7 mg/dL 10/30/2024 8:47 AM EST [facility] Blood (Plasma/Serum) 10/30/2024 7:09 AM EST 10/30/2024 7:54 AM EST Jonna Donis PA-C LAB BLOOD ORDERABL ES Performing Organization Address [facility] [place] [address], [place] [address] * (ABNORMAL) COMPLETE BLOOD COUNT, WITHOUT DIFFERENTIAL (10/30/2024 7:09 AM EST) White Blood Cell Count 9.3 4.0 - 11.0 Thou/uL 10/30/2024 8:20 AM EST [facility] Platelet Count 304 150 - 450 Thou/uL 10/30/2024 8:20 AM [facility] Hemoglobin 9.3(L) 13.0 - 17.7 g/dL 10/30/2024 8:20 AM [facility] Hematocrit 30.3(L) 39.0 - 54.0 % 10/30/2024 8:20 AM [facility] Red Blood Cell Count 2.99(L) 4.50 - 6.20 Mil/uL 10/30/2024 8:20 AM [facility] MCV 101(H) 80 - 100 fL 10/30/2024 8:20 AM [facility] MCH 31.1(H) 27.0 - 31.0 pg 10/30/2024 8:20 AM [facility] MCHC 30.7 30.0 - 36.0 g/dL 10/30/2024 8:20 AM [facility] RDW 16.8(H) 11.5 - 14.5 % 10/30/2024 8:20 AM [facility] MPV 11.1 7.5 - 12.5 fL 10/30/2024 8:20 AM [facility] Blood Blood specimen / Unknown 10/30/2024 7:09 AM EST 10/30/2024 7:54 AM EST Jonna Donis PA-[place] [address], [place] [address] * (ABNORMAL) BASIC METABOLIC PANEL (10/30/2024 7:09 AM EST) Glucose 80 65 - 99 mg/dL 10/30/2024 8:47 AM [facility] Comment:Fasting: <100 mg/dL, Non-Fasting: <200 mg/dL (ADA 2005) Blood Urea Nitrogen (BUN) 40(H) 8 - 21 mg/dL 10/30/2024 8:47 AM [facility] Creatinine 4.3(H) 0.5 - 1.3 mg/dL 10/30/2024 8:47 AM [facility] eGFR 13(L) >59 10/30/2024 8:47 AM [facility] Comment:CKD-EPI (2020) in mL /min/1.73 sq meters. Sodium 142 136 - 145 mmol/L 10/30/2024 8:47 AM [facility] Potassium 4.5 3.4 - 5.3 mmol/L 10/30/2024 8:47 AM [facility] Chloride 101 98 - 107 mmol/L 10/30/2024 8:47 AM [facility] CO2 27 22 - 33 mmol/L 10/30/2024 8:47 AM [facility] Anion Gap 14 7 - 17 10/30/2024 8:47 AM [facility] Calcium 9.2 8.7 - 10.5 mg/dL 10/30/2024 8:47 AM [facility] BUN/Creatinine Ratio 9(L) 10.0 - 25.0 Ratio 10/30/2024 8:47 AM [facility] Blood (Plasma/Serum) 10/30/2024 7:09 AM EST 10/30/2024 7:54 AM EST Jonna Donis PA-[place] [address], [place] [address] * POCT Glucose, Fingerstick (10/30/2024 6:47 AM [...] OF CARE TEST ORDERABLES Performing Organization Address [facility] LAB See Below * (ABNORMAL) POCT Glucose, Fingerstick (10/29/2024 9:16 PM EST) POC Glucose 138(H) 65 - 99 mg/dL 10/29/2024 9:16 PM EST Blood specimen / Unknown 10/29/2024 9:16 PM EST 10/29/2024 9:17 PM EST Fuad Winter MD POINT OF CARE TEST ORDERABLES Performing Organization Address [facility] LAB See Below * (ABNORMAL) POCT Glucose, Fingerstick (10/29/2024 4:32 PM EST) POC Glucose 187(H) 65 - 99 mg/dL 10/29/2024 4:33 PM EST Blood specimen / Unknown 10/29/2024 4:32 PM EST 10/29/2024 4:33 PM EST Fuad Winter MD POINT OF CARE TEST ORDERABLES Performing Organization Address [facility] LAB See Below * (ABNORMAL) POCT Glucose, Fingerstick (10/29/2024 12:54 PM EST) POC Glucose 162(H) 65 - 99 mg/dL 10/29/2024 12:55 PM EST Blood specimen / Unknown 10/29/2024 12:54 PM EST 10/29/2024 12:55 PM EST Fuad Winter MD POINT OF CARE TEST ORDERABLES Performing Organization Address [facility] LAB See Below * (ABNORMAL) POCT Glucose, Fingerstick (10/29/2024 7:51 AM EST) POC Glucose 107(H) 65 - 99 mg/dL 10/29/2024 7:53 AM EST Blood specimen / Unknown 10/29/2024 7:51 AM EST 10/29/2024 7:52 AM EST Fuad Winter MD POINT OF CARE TEST ORDERABLES Performing Organization Address [facility] Co de Phone Number HOSPITAL LAB See Below * (ABNORMAL) proBNP, N-terminal (10/29/2024 7:20 AM EST) Pathologist [facility] proBNP, N-terminal 47,866(H) <450 pg/mL 10/29/2024 12:12 PM EST [facility] Plasma specimen / Unknown 10/29/2024 7:20 AM EST 10/29/2024 8:04 AM EST Madhav Ryan MD LAB BLOOD ORDERABLES Performing Organization Address [facility] de Phone Number [facility] [address] [place] [address], [place] [address] * Heparin Assay (Anti Xa) (10/29/2024 7:20 AM EST) [facility] Anti Xa 0.41 IU/mL 10/29/2024 8:28 AM EST [facility] Comment: (NOTE) Heparin Thromboembolic/Standard/Full Dose Protocol: [...] LAB BLOOD ORDERAB LES Performing Organization Address [facility]/[place] [address], [place] [address] * (ABNORMAL) Phosphorus (Early AM) (10/29/2024 7:20 AM EST) Phosphorus 4.9(H) 2.7 - 4.5 mg/dL 10/29/2024 8:40 AM EST [facility] Blood (Plasma/Serum) 10/29/2024 7:20 AM EST 10/29/2024 8:04 AM EST Jonna Donis PA-C LAB BLOOD ORDERABL ES Performing Organization Address City/[facility]/[place] [address], [place] [address] * MAGNESIUM (10/29/2024 7:20 AM EST) Magnesium 1.7 1.6 - 2.7 mg/dL 10/29/2024 8:40 AM [facility] Blood (Plasma/Serum) 10/29/2024 7:20 AM EST 10/29/2024 8:04 AM EST Jonna Donis PA-C LAB BLOOD ORDERABL ES Performing Organization Address [facility]/[place] [address], [place] [address] * (ABNORMAL) COMPLETE BLOOD COUNT, WITHOUT DIFFERENTIAL (10/29/2024 7:20 AM EST) White Blood Cell Count 8.5 4.0 - 11.0 Thou/uL 10/29/2024 8:23 AM [facility] Platelet Count 300 150 - 450 Thou/uL 10/29/2024 8:23 AM [facility] Hemoglobin 8.7(L) 13.0 - 17.7 g/dL 10/29/2024 8:23 AM [facility] Hematocrit 29.6(L) 39.0 - 54.0 % 10/29/2024 8:23 AM [facility] Red Blood Cell Count 2.92(L) 4.50 - 6.20 Mil/uL 10/29/2024 8:23 AM [facility] MCV 101(H) 80 - 100 fL 10/29/2024 8:23 AM [facility] MCH 29.8 27.0 - 31.0 pg 10/29/2024 8:23 AM [facility] MCHC 29.4(L) 30.0 - 36.0 g/dL 10/29/2024 8:23 AM [facility] RDW 17.2(H) 11.5 - 14.5 % 10/29/2024 8:23 AM [facility] MPV 10.9 7.5 - 12.5 fL 10/29/2024 8:23 AM [facility] Blood Blood specimen / Unknown 10/29/2024 7:20 AM EST 10/29/2024 8:04 AM EST Jonna Donis PA-[place] [address], [place] [address] * (ABNORMAL) BASIC METABOLIC PANEL (10/29/2024 7:20 AM EST) Glucose 91 65 - 99 mg/dL 10/29/2024 8:40 AM [facility] Comment:Fasting: <100 mg/dL, Non-Fasting: <200 mg/dL (ADA 2005) Blood Urea Nitrogen (BUN) 44(H) 8 - 21 mg/dL 10/29/2024 8:40 AM [facility] Creatinine 4.3(H) 0.5 - 1.3 mg/dL 10/29/2024 8:40 AM [facility] eGFR 13(L) >59 10/29/2024 8:40 AM [facility] Comment:CKD-EPI (2020) in mL /min/1.73 sq meters. Sodium 142 136 - 145 mmol/L 10/29/2024 8:40 AM [facility] Potassium 4.0 3.4 - 5.3 mmol/L 10/29/2024 8:40 AM [facility] Chloride 103 98 - 107 mmol/L 10/29/2024 8:40 AM [facility] CO2 26 22 - 33 mmol/L 10/29/2024 8:40 AM [facility] Anion Gap 13 7 - 17 10/29/2024 8:40 AM [facility] Calcium 8.8 8.7 - 10.5 mg/dL 10/29/2024 8:40 AM [facility] BUN/Creatinine Ratio 10 10.0 - 25.0 Ratio 10/29/2024 8:40 AM [facility] Blood (Plasma/Serum) 10/29/2024 7:20 AM EST 10/29/2024 8:04 AM EST Jonna Donis PA-C LAB BLOOD ORDERABL ES [address] [address], [address] [address] * POCT Glucose, Fingerstick (10/29/2024 2:07 AM EST) POC Glucose 99 65 - 99 mg/dL 10/29/2024 2:07 AM EST Blood specimen / Unknown 10/29/2024 2:07 AM EST 10/29/2024 2:08 AM EST Fuad Winter MD POINT OF CARE TEST ORDERABLES Performing Organization Address [facility] Co de Phone Number [facility] See Below * (ABNORMAL) [...] 2.7 - 4.5 mg/dL 10/28/2024 4:54 PM [facility] Blood (Plasma/Serum) 10/28/2024 3:38 PM EST 10/28/2024 4:29 PM EST Madhav Ryan MD [place] [address], [place] [address] * Magnesium (STAT) (10/28/2024 3:38 PM EST) Pathologist [facility] Magnesium 1.8 1.6 - 2.7 mg/dL 10/28/2024 4:54 PM [facility] Blood (Plasma/Serum) 10/28/2024 3:38 PM EST 10/28/2024 4:29 PM EST Madhav Ryan MD LAB BLOOD ORDERABLES Performing Organization Address City/[facility]/[place] [address], [place] [address] * (ABNORMAL) Basic Metabolic Panel (STAT) (10/28/2024 3:38 PM EST) Pathologist [facility] Glucose 208(H) 65 - 99 mg/dL 10/28/2024 4:54 PM [facility] Comment:Fasting: <100 mg/dL, Non-Fasting: <200 mg/dL (ADA 2004) Blood Urea Nitrogen (BUN) 48(H) 8 - 21 mg/dL 10/28/2024 4:54 PM [facility] Creatinine 4.3(H) 0.5 - 1.3 mg/dL 10/28/2024 4:54 PM [facility] eGFR 13(L) >59 10/28/2024 4:54 PM [facility] Comment:CKD-EPI (2020) in mL /min/1.73 sq meters. Sodium 143 136 - 145 mmol/L 10/28/2024 4:54 PM [facility] Potassium 4.7 3.4 - 5.3 mmol/L 10/28/2024 4:54 PM [facility] Chloride 105 98 - 107 mmol/L 10/28/2024 4:54 PM [facility] CO2 25 22 - 33 mmol/L 10/28/2024 4:54 PM [facility] Anion Gap 13 7 - 17 10/28/2024 4:54 PM [facility] Calcium 8.9 8.7 - 10.5 mg/dL 10/28/2024 4:54 PM [facility] BUN/Creatinine Ratio 11 10.0 - 25.0 Ratio 10/28/2024 4:54 PM [facility] Blood (Plasma/Serum) 10/28/2024 3:38 PM EST 10/28/2024 4:29 PM EST Madhav Ryan [place] [address], [place] [address] * (ABNORMAL) POCT Glucose, Fingerstick (10/28/2024 12:32 [...] Xa 0.39 IU/mL 10/28/2024 7:54 AM EST [facility] Comment: (NOTE) Heparin Thromboembolic/Standard/Full Dose Protocol: [...] LAB BLOOD ORDERAB LES Performing Organization Address [facility] Co de Phone Number [address] [address], [place] [address] * (ABNORMAL) Phosphorus (Early AM) (10/28/2024 7:00 AM EST) Phosphorus 4.6(H) 2.7 - 4.5 mg/dL 10/28/2024 8:08 AM EST [facility] Blood (Plasma/Serum) 10/28/2024 7:00 AM EST 10/28/2024 7:37 AM EST Jonna Donis PA-C LAB BLOOD ORDERABL ES Performing Organization Address [facility] [employer] de Phone Number [address] [address], [address] [address] * MAGNESIUM (10/28/2024 7:00 AM EST) Magnesium 1.8 1.6 - 2.7 mg/dL 10/28/2024 8:08 AM EST [facility] Blood (Plasma/Serum) 10/28/2024 7:00 AM EST 10/28/2024 7:37 AM EST Jonna Donis PA-C LAB BLOOD ORDERABL ES Performing Organization Address [facility] [employer] de Phone Number [address] [address], [address] [address] * (ABNORMAL) COMPLETE BLOOD COUNT, WITHOUT DIFFERENTIAL (10/28/2024 7:00 AM EST) [facility] White Blood Cell Count 9.2 4.0 - 11.0 Thou/uL 10/28/2024 7:46 AM [facility] Platelet Count 326 150 - 450 Thou/uL 10/28/2024 7:46 AM [facility] Hemoglobin 8.7(L) 13.0 - 17.7 g/dL 10/28/2024 7:46 AM [facility] Hematocrit 29.1(L) 39.0 - 54.0 % 10/28/2024 7:46 AM [facility] Red Blood Cell Count 2.85(L) 4.50 - 6.20 Mil/uL 10/28/2024 7:46 AM [facility] MCV 102(H) 80 - 100 fL 10/28/2024 7:46 AM [facility] MCH 30.5 27.0 - 31.0 pg 10/28/2024 7:46 AM [facility] MCHC 29.9(L) 30.0 - 36.0 g/dL 10/28/2024 7:46 AM [facility] RDW 17.2(H) 11.5 - 14.5 % 10/28/2024 7:46 AM [facility] MPV 11.3 7.5 - 12.5 fL 10/28/2024 7:46 AM [facility] Blood Blood specimen / Unknown 10/28/2024 7:00 AM EST 10/28/2024 7:37 AM EST Jonna Donis PA-C LAB BLOOD ORDERABL ES [address] [address], [address] [address] * (ABNORMAL) BASIC METABOLIC PANEL (10/28/2024 7:00 AM EST) [facility] Glucose 84 65 - 99 mg/dL 10/28/2024 8:08 AM [facility] Comment:Fasting: <100 mg/dL, Non-Fasting: <200 mg/dL (ADA 2005) Blood Urea Nitrogen (BUN) 50(H) 8 - 21 mg/dL 10/28/2024 8:08 AM [facility] Creatinine 4.4(H) 0.5 - 1.3 mg/dL 10/28/2024 8:08 AM [facility] eGFR 13(L) >59 10/28/2024 8:08 AM [facility] Comment:CKD-EPI (2020) in mL /min/1.73 sq meters. Sodium 142 136 - 145 mmol/L 10/28/2024 8:08 AM [facility] Potassium 3.9 3.4 - 5.3 mmol/L 10/28/2024 8:08 AM [facility] Chloride 105 98 - 107 mmol/L 10/28/2024 8:08 AM [facility] CO2 25 22 - 33 mmol/L 10/28/2024 8:08 AM [facility] Anion Gap 12 7 - 17 10/28/2024 8:08 AM [facility] Calcium 8.6(L) 8.7 - 10.5 mg/dL 10/28/2024 8:08 AM [facility] BUN/Creatinine Ratio 11 10.0 - 25.0 Ratio 10/28/2024 8:08 AM [facility] Blood (Plasma/Serum) 10/28/2024 7:00 AM EST 10/28/2024 7:37 AM EST Jonna Donis PA-C LAB BLOOD ORDERABL ES Performing Organization Address City/[facility]/[place] [address], [place] [address] * (ABNORMAL) POCT Glucose, Fingerstick (10/28/2024 4:20 AM EST) POC Glucose 109(H) 65 - 99 mg/dL 10/28/2024 4:21 AM EST Blood specimen / Unknown 10/28/2024 4:20 AM EST 10/28/2024 4:21 AM EST Fuad Winter MD POINT OF CARE TEST ORDERABLES Performing Organization Address City/State/[facility] Phone [facility] LAB See Below * (ABNORMAL) POCT Glucose, Fingerstick (10/28/2024 12:29 AM EST) POC Glucose 129(H) 65 - 99 mg/dL 10/28/2024 12:30 AM EST Blood specimen / Unknown 10/28/2024 12:29 AM EST 10/28/2024 12:30 AM EST Fuad Winter MD POINT OF CARE TEST ORDERABLES Performing Organization Address [facility] Phone Number [facility] LAB See Below * (ABNORMAL) POCT Glucose, Fingerstick (10/27/2024 8:06 PM EST) POC Glucose 203(H) 65 - 99 mg/dL 10/27/2024 8:10 PM EST Blood specimen / Unknown 10/27/2024 8:06 PM EST 10/27/2024 8:10 PM EST Fuad Winter MD POINT OF CARE TEST ORDERABLES Performing Organization Address [facility] Phone [facility] LAB See Below * (ABNORMAL) POCT Glucose, Fingerstick (10/27/2024 4:20 PM EST) POC Glucose 224(H) 65 - 99 mg/dL 10/27/2024 4:28 PM EST Blood specimen / Unknown 10/27/2024 4:20 PM EST 10/27/2024 4:28 PM EST Fuad Winter MD POINT OF CARE TEST ORDERABLES Performing Organization Address [facility] Phone Number [facility] LAB See Below * (ABNORMAL) Basic Metabolic Panel (Routine) (10/27/2024 3:26 PM EST) Glucose 179(H) 65 - 99 mg/dL 10/27/2024 4:11 PM EST [facility] Comment:Fasting: <100 mg/dL, Non-Fasting: <200 mg/dL (ADA 2005) Blood Urea Nitrogen (BUN) 53(H) 8 - 21 mg/dL 10/27/2024 4:11 PM [facility] Creatinine 4.2(H) 0.5 - 1.3 mg/dL 10/27/2024 4:11 PM [facility] eGFR 14(L) >59 10/27/2024 4:11 PM [facility] Comment:CKD-EPI (2020) in mL /min/1.73 sq meters. Sodium 143 136 - 145 mmol/L 10/27/2024 4:11 PM [facility] Potassium 5.2 3.4 - 5.3 mmol/L 10/27/2024 4:11 PM [facility] Chloride 105 98 - 107 mmol/L 10/27/2024 4:11 PM [facility] CO2 25 22 - 33 mmol/L 10/27/2024 4:11 PM [facility] Anion Gap 13 7 - 17 10/27/2024 4:11 PM [facility] Calcium 8.6(L) 8.7 - 10.5 mg/dL 10/27/2024 4:11 PM [facility] BUN/Creatinine Ratio 13 10.0 - 25.0 Ratio 10/27/2024 4:11 PM [facility] Blood (Plasma/Serum) 10/27/2024 3:26 PM EST 10/27/2024 3:45 PM EST Madhav Ryan MD [place] [address], [place] [address] * (ABNORMAL) POCT Glucose, Fingerstick (10/27/2024 1:13 [...] lead (STAT) (10/27/2024 7:41 AM EST) Pathologist [facility] Ventricular rate 60 BPM EKG [facility] Atrial rate 60 BPM EKG [facility] P-R interval 150 ms EKG [facility] QRS duration 84 ms EKG [facility] Q-T interval 488 ms EKG [facility] QTC calculation (Bazett) 488 ms EKG [facility] P axis [address] [facility] R axis 13 degrees EKG [facility] T axis 199 degrees EKG [facility] 10/27/2024 7:41 AM EST Narrative EKG [facility] - 10/27/2024 6:03 PM EST Normal [...] PM Madhav Ryan MD ECG ORDERABLES EKG [facility] * Heparin Assay (Anti Xa) (10/27/2024 7:29 AM EST) Anti Xa 0.39 IU/mL 10/27/2024 8:42 AM EST [facility] Comment: (NOTE) Heparin Thromboembolic/Standard/Full Dose Protocol: [...] LAB BLOOD ORDERAB LES Performing Organization Address [facility] [place] [address], [place] [address] * (ABNORMAL) Phosphorus (AM) (10/27/2024 7:29 AM EST) Phosphorus 4.6(H) 2.7 - 4.5 mg/dL 10/27/2024 8:48 AM EST [facility] Blood (Plasma/Serum) 10/27/2024 7:29 AM EST 10/27/2024 8:24 AM EST Neymar Mcfarland MD LAB BLOOD ORDERAB LES Performing Organization Address [facility] [place] [address], [place] [address] * Magnesium (AM) (10/27/2024 7:29 AM EST) Magnesium 1.8 1.6 - 2.7 mg/dL 10/27/2024 8:48 AM EST [facility] Blood (Plasma/Serum) 10/27/2024 7:29 AM EST 10/27/2024 8:24 AM EST Neymar Mcfarland MD LAB BLOOD ORDERAB LES Performing Organization Address [facility] [place] [address], [place] [address] * (ABNORMAL) Basic Metabolic Panel (AM) (10/27/2024 7:29 AM EST) Glucose 63(L) 65 - 99 mg/dL 10/27/2024 8:48 AM [facility] Comment:Fasting: <100 mg/dL, Non-Fasting: <200 mg/dL (ADA 2004) Blood Urea Nitrogen (BUN) 59(H) 8 - 21 mg/dL 10/27/2024 8:48 AM [facility] Creatinine 4.3(H) 0.5 - 1.3 mg/dL 10/27/2024 8:48 AM [facility] eGFR 13(L) >59 10/27/2024 8:48 AM [facility] Comment:CKD-EPI (2020) in mL /min/1.73 sq meters. Sodium 146(H) 136 - 145 mmol/L 10/27/2024 8:48 AM [facility] Potassium 3.7 3.4 - 5.3 mmol/L 10/27/2024 8:48 AM [facility] Chloride 107 98 - 107 mmol/L 10/27/2024 8:48 AM [facility] CO2 24 22 - 33 mmol/L 10/27/2024 8:48 AM [facility] Anion Gap 15 7 - 17 10/27/2024 8:48 AM [facility] Calcium 8.4(L) 8.7 - 10.5 mg/dL 10/27/2024 8:48 AM [facility] BUN/Creatinine Ratio 14 10.0 - 25.0 Ratio 10/27/2024 8:48 AM [facility] Blood (Plasma/Serum) 10/27/2024 7:29 AM EST 10/27/2024 8:24 AM EST Neymar Mcfarland MD LAB BLOOD ORDERAB LES [facility] [address] [place] [address], [place] [address] * (ABNORMAL) Complete Blood Count WITHOUT Differential - in AM (10/27/2024 7:29 AM EST) [facility] White Blood Cell Count 9.2 4.0 - 11.0 Thou/uL 10/27/2024 8:38 AM [facility] Platelet Count 321 150 - 450 Thou/uL 10/27/2024 8:38 AM [facility] Hemoglobin 9.0(L) 13.0 - 17.7 g/dL 10/27/2024 8:38 AM [facility] Hematocrit 29.8(L) 39.0 - 54.0 % 10/27/2024 8:38 AM [facility] Red Blood Cell Count 2.95(L) 4.50 - 6.20 Mil/uL 10/27/2024 8:38 AM [facility] MCV 101(H) 80 - 100 fL 10/27/2024 8:38 AM [facility] MCH 30.5 27.0 - 31.0 pg 10/27/2024 8:38 AM [facility] MCHC 30.2 30.0 - 36.0 g/dL 10/27/2024 8:38 AM [facility] RDW 16.9(H) 11.5 - 14.5 % 10/27/2024 8:38 AM [facility] MPV 11.6 7.5 - 12.5 fL 10/27/2024 8:38 AM [facility] Blood Blood specimen / Unknown 10/27/2024 7:29 AM EST 10/27/2024 8:24 AM EST Neymar Mcfarland MD [place] [address], [place] [address] * POCT Glucose, Fingerstick (10/27/2024 4:02 AM EST) [facility] POC Glucose 90 65 - 99 mg/dL 10/27/2024 4:03 AM EST Blood specimen / Unknown 10/27/2024 4:02 AM EST 10/27/2024 4:03 AM EST Fuad Winter MD POINT OF CARE TEST ORDERABLES Performing Organization Address [facility]/ZIP Co de Phone Number HOSPITAL LAB See Below * (ABNORMAL) POCT Glucose, Fingerstick (10/27/2024 1:20 AM EST) POC Glucose 155(H) 65 - 99 mg/dL 10/27/2024 1:25 AM EST Blood specimen / Unknown 10/27/2024 1:20 AM EST 10/27/2024 1:25 AM EST Fuad Winter MD POINT OF CARE TEST ORDERABLES Performing Organization Address [facility] de Phone Number HOSPITAL LAB See Below * POCT Glucose, Fingerstick (10/27/2024 12:29 AM EST) POC Glucose 74 65 - 99 mg/dL 10/27/2024 12:30 AM EST Blood specimen / Unknown 10/27/2024 12:29 AM EST 10/27/2024 12:30 AM EST Fuad Winter MD POINT OF CARE TEST ORDERABLES Performing Organization Address [facility] Phone Number HOSPITAL LAB See Below * (ABNORMAL) POCT Glucose, Fingerstick (10/26/2024 8:11 PM EST) POC Glucose 120(H) 65 - 99 mg/dL 10/26/2024 8:12 PM EST Blood specimen / Unknown 10/26/2024 8:11 PM EST 10/26/2024 8:12 PM EST Fuad Winter MD POINT OF CARE TEST ORDERABLES Performing Organization Address [facility] Co de Phone Number HOSPITAL LAB See [...] T (Once) (10/26/2024 10:49 AM EST) Pathologist [facility] High Sensitivity Troponin T 2,071(HH) <23 ng/L 10/26/2024 11:53 AM EST [facility] Comment:Recurring Critical R esult. Previously phoned. Delta (Change) 532(H) <3 10/26/2024 11:53 AM EST [facility] Comment:Decreased Blood (Plasma/Serum) 10/26/2024 10:49 AM EST 10/26/2024 11:11 AM EST Neymar Mcfarland MD LAB BLOOD ORDERAB LES Performing Organization Address City/[facility]/[place] [address], [place] [address] * POCT Glucose, Fingerstick (10/26/2024 8:48 AM EST) POC Glucose 90 65 - 99 mg/dL 10/26/2024 8:49 AM EST Blood specimen / Unknown 10/26/2024 8:48 AM EST 10/26/2024 8:49 AM EST Fuad Winter MD POINT OF CARE TEST ORDERABLES HOSPITAL LAB See Below * Heparin Assay (Anti Xa) (10/26/2024 6:18 AM EST) Anti Xa 0.49 IU/mL 10/26/2024 7:38 AM EST [facility] Comment: (NOTE) Heparin Thromboembolic/Standard/Full Dose Protocol: [...] LAB BLOOD ORDERAB LES Performing Organization Address City/[facility]/[place] [address], [place] [address] * Phosphorus (AM) (10/26/2024 6:18 AM EST) Phosphorus 4.2 2.7 - 4.5 mg/dL 10/26/2024 7:45 AM EST [facility] Blood (Plasma/Serum) 10/26/2024 6:18 AM EST 10/26/2024 7:22 AM EST Neymar Mcfarland MD LAB BLOOD ORDERAB LES Performing Organization Address [facility]/[place] [address], [place] [address] * Magnesium (AM) (10/26/2024 6:18 AM EST) Magnesium 1.9 1.6 - 2.7 mg/dL 10/26/2024 7:45 AM EST [facility] Blood (Plasma/Serum) 10/26/2024 6:18 AM EST 10/26/2024 7:22 AM EST Neymar Mcfarland MD LAB BLOOD ORDERAB LES Performing Organization Address [facility] [place] [address], [place] [address] * (ABNORMAL) Basic Metabolic Panel (AM) (10/26/2024 6:18 AM EST) Glucose 79 65 - 99 mg/dL 10/26/2024 7:45 AM [facility] Comment:Fasting: <100 mg/dL, Non-Fasting: <200 mg/dL (ADA 2004) Blood Urea Nitrogen (BUN) 61(H) 8 - 21 mg/dL 10/26/2024 7:45 AM [facility] Creatinine 4.0(H) 0.5 - 1.3 mg/dL 10/26/2024 7:45 AM [facility] eGFR 14(L) >59 10/26/2024 7:45 AM [facility] Comment:CKD-EPI (2020) in mL /min/1.73 sq meters. Sodium 145 136 - 145 mmol/L 10/26/2024 7:45 AM [facility] Potassium 4.2 3.4 - 5.3 mmol/L 10/26/2024 7:45 AM [facility] Chloride 107 98 - 107 mmol/L 10/26/2024 7:45 AM [facility] CO2 23 22 - 33 mmol/L 10/26/2024 7:45 AM [facility] Anion Gap 15 7 - 17 10/26/2024 7:45 AM [facility] Calcium 7.9(L) 8.7 - 10.5 mg/dL 10/26/2024 7:45 AM [facility] BUN/Creatinine Ratio 15 10.0 - 25.0 Ratio 10/26/2024 7:45 AM [facility] Blood (Plasma/Serum) 10/26/2024 6:18 AM EST 10/26/2024 7:22 AM EST Neymar Mcfarland MD LAB BLOOD ORDERAB LES [address] [address], [address] [address] * (ABNORMAL) Complete Blood Count WITHOUT Differential - in AM (10/26/2024 6:18 AM EST) White Blood Cell Count 9.7 4.0 - 11.0 Thou/uL 10/26/2024 7:29 AM [facility] Platelet Count 328 150 - 450 Thou/uL 10/26/2024 7:29 AM [facility] Hemoglobin 8.6(L) 13.0 - 17.7 g/dL 10/26/2024 7:29 AM [facility] Hematocrit 27.9(L) 39.0 - 54.0 % 10/26/2024 7:29 AM [facility] Red Blood Cell Count 2.78(L) 4.50 - 6.20 Mil/uL 10/26/2024 7:29 AM [facility] MCV 100 80 - 100 fL 10/26/2024 7:29 AM [facility] MCH 30.9 27.0 - 31.0 pg 10/26/2024 7:29 AM [facility] MCHC 30.8 30.0 - 36.0 g/dL 10/26/2024 7:29 AM [facility] RDW 16.8(H) 11.5 - 14.5 % 10/26/2024 7:29 AM [facility] MPV 11.6 7.5 - 12.5 fL 10/26/2024 7:29 AM [facility] Blood Blood specimen / Unknown 10/26/2024 6:18 AM EST 10/26/2024 7:22 AM EST Neymar Mcfarland MD [place] [address], [place] [address] * (ABNORMAL) POCT Glucose, Fingerstick (10/26/2024 3:58 AM EST) POC Glucose 100(H) 65 - 99 mg/dL 10/26/2024 3:58 AM EST Blood specimen / Unknown 10/26/2024 3:58 AM EST 10/26/2024 3:59 AM EST Fuad Winetr MD POINT OF CARE TEST ORDERABLES HOSPITAL [...] Assay (Anti Xa) (10/25/2024 11:35 PM EST) [facility] Anti Xa 0.44 IU/mL 10/26/2024 12:23 AM EST [facility] Comment: (NOTE) Heparin Thromboembolic/Standard/Full Dose Protocol: [...] LAB BLOOD ORDERAB LES Performing Organization Address [facility]/[place] [address], [place] [address] * (ABNORMAL) POCT Glucose, Fingerstick (10/25/2024 8:20 PM EST) [facility] POC Glucose 222(H) 65 - 99 mg/dL 10/25/2024 8:21 PM EST Blood specimen / Unknown 10/25/2024 8:20 PM EST 10/25/2024 8:21 PM EST Fuad Winter MD POINT OF CARE TEST ORDERABLES Performing Organization Address City/[facility] Co de Phone Number HOSPITAL LAB See [...] Xa 0.57 IU/mL 10/25/2024 5:53 PM EST [facility] Comment: (NOTE) Heparin Thromboembolic/Standard/Full Dose Protocol: [...] LAB BLOOD ORDERAB LES Performing Organization Address [facility]/[place] [address], [place] [address] * (ABNORMAL) High Sensitivity Troponin T (now and in 3 hours) (10/25/2024 5:03 PM EST) High Sensitivity Troponin T 2,468(HH) <23 ng/L 10/25/2024 6:02 PM [facility] Comment:Recurring Critical R esult. Previously phoned. Delta (Change) 135(H) <3 10/25/2024 6:02 PM [facility] Comment:Decreased Blood (Plasma/Serum) 10/25/2024 5:03 PM EST 10/25/2024 5:25 PM EST Neymar Mcfarland MD LAB BLOOD ORDERAB LES Performing Organization Address [facility]/[place] [address], [place] [address] * (ABNORMAL) High Sensitivity Troponin T (now and in 3 hours) (10/25/2024 3:38 PM EST) High Sensitivity Troponin T 2,413(HH) <23 ng/L 10/25/2024 4:21 PM [facility] Comment:Recurring Critical R esult. Previously phoned. Delta (Change) 190(H) <3 10/25/2024 4:21 PM [facility] Comment:Decreased Blood (Plasma/Serum) 10/25/2024 3:38 PM EST 10/25/2024 3:48 PM EST Neymar Mcfarland MD LAB BLOOD ORDERAB LES Performing Organization Address [facility]/[place] [address], [place] [address] * (ABNORMAL) High Sensitivity Troponin T (10/25/2024 12:47 PM EST) High Sensitivity Troponin T 2,394(HH) <23 ng/L 10/25/2024 2:04 PM [facility] Comment:Recurring Critical R esult. Previously phoned. Delta (Change) 209(H) <3 10/25/2024 2:04 PM [facility] Comment:Decreased Plasma/Serum 10/25/2024 12:4 7 PM EST 10/25/2024 1:34 PM EST Bryant Gracia PA-C LAB BLOOD ORDERABLES Performing Organization Address [facility] [place] [address], [place] [address] * Heparin Assay (Anti Xa) (10/25/2024 12:47 PM EST) Pathologist [facility] Anti Xa 0.47 IU/mL 10/25/2024 2:06 PM [facility] Comment: (NOTE) Heparin Thromboembolic/Standard/Full Dose Protocol: [...] LAB BLOOD ORDERAB LES Performing Organization Address [facility]/State/ZIP Co de Phone Number [address] [address], [address] [address] * (ABNORMAL) POCT Glucose, Fingerstick (10/25/2024 12:33 [...] AM EST) Ventricular rate 76 BPM EKG [facility] Atrial rate 76 BPM EKG [facility] P-R interval 152 ms EKG [facility] QRS duration 82 ms EKG [facility] Q-T interval 450 ms EKG [facility] QTC calculation (Bazett) 506 ms EKG [facility] P axis 67 [address] [facility] R axis 69 degrees EKG [facility] T axis 237 degrees EKG [facility] 10/25/2024 10:4 4 AM EST Narrative EKG [facility] - 10/25/2024 8:09 PM EST Normal sinus rhythm ST & T wave abnormality, consider lateral ischemia Prolonged QT Abnormal ECG When compared with ECG of 23-Oct-2024 17:43, Nonspecific T wave abnormality, worse in Inferior leads T wave inversion less evident in Lateral leads Confirmed by DO Ladd Kyla ([id number]) on 10/25/2024 8:09:06 PM Procedure Note Jessica Ladd DO - 10/25/[address] & T wave abnormality, consider lateral ischemia Prolonged QT Abnormal ECG When compared with ECG of 23-Oct-2024 17:43, Nonspecific T wave abnormality, worse in Inferior leads T wave inversion less evident in Lateral leads Confirmed by DO Ladd Kyla ([id number]) on 10/25/2024 8:09:06 PM Fuad Winter MD ECG ORDERABLE S [facility] * (ABNORMAL) High Sensitivity Troponin T (10/25/2024 10:25 AM EST) High Sensitivity Troponin T 2,514(HH) <23 ng/L 10/25/2024 11:49 AM EST [facility] Comment:Recurring Critical R esult. Previously phoned. Delta (Change) 89(H) <3 10/25/2024 11:49 AM EST [facility] Comment:Decreased Plasma/Serum 10/25/2024 10:2 5 AM EST 10/25/2024 11:17 AM EST Bryant Gracia PA-C LAB BLOOD ORDERABLES [facility] [address] [place] [address], [address] [address] * (ABNORMAL) POCT Glucose, Fingerstick (10/25/2024 9:20 AM EST) [facility] POC Glucose 129(H) 65 - 99 mg/dL 10/25/2024 9:21 AM EST Blood specimen / Unknown 10/25/2024 9:20 AM EST 10/25/2024 9:21 AM EST Fuad Winter MD POINT OF CARE TEST ORDERABLES HOSPITAL LAB See Below * CREATINE KINASE (CK) (10/25/2024 8:27 AM EST) [facility] Creatine Kinase (CK) 76 24 - 204 U/L 10/25/2024 10:25 AM EST [facility] Plasma/Serum 10/25/2024 8:27 AM EST 10/25/2024 9:16 AM EST Neymar Mcfarland MD LAB BLOOD ORDERAB LES Performing Organization Address [facility]/[place] [address], [place] [address] * (ABNORMAL) High Sensitivity Troponin T (10/25/2024 8:27 AM EST) [facility] High Sensitivity Troponin T 2,603(HH) <23 ng/L 10/25/2024 10:25 AM EST [facility] Delta (Change) NO PREVIOUS RESULT <3 10/25/2024 10:25 AM EST [facility] Plasma/Serum 10/25/2024 8:27 AM EST 10/25/2024 9:16 AM EST Neymar Mcfarland MD LAB BLOOD ORDERAB LES Performing Organization Address [facility]/[place] [address], [place] [address] * Phosphorus (AM) (10/25/2024 8:27 AM EST) [facility] Phosphorus 3.8 2.7 - 4.5 mg/dL 10/25/2024 10:25 AM [facility] Blood (Plasma/Serum) 10/25/2024 8:27 AM EST 10/25/2024 9:16 AM EST Neymar Mcfarland MD LAB BLOOD ORDERAB LES Performing Organization Address City/[facility]/[place] [address], [place] [address] * Magnesium (AM) (10/25/2024 8:27 AM EST) Magnesium 2.0 1.6 - 2.7 mg/dL 10/25/2024 10:25 AM [facility] Blood (Plasma/Serum) 10/25/2024 8:27 AM EST 10/25/2024 9:16 AM EST Neymar Mcfarland MD LAB BLOOD ORDERAB LES Performing Organization Address [facility]/[place] [address], [place] [address] * (ABNORMAL) Basic Metabolic Panel (AM) (10/25/2024 8:27 AM EST) Glucose 123(H) 65 - 99 mg/dL 10/25/2024 10:25 AM [facility] Comment:Fasting: <100 mg/dL, Non-Fasting: <200 mg/dL (ADA 2005) Blood Urea Nitrogen (BUN) 64(H) 8 - 21 mg/dL 10/25/2024 10:25 AM [facility] Creatinine 3.9(H) 0.5 - 1.3 mg/dL 10/25/2024 10:25 AM [facility] eGFR 15(L) >59 10/25/2024 10:25 AM [facility] Comment:CKD-EPI (2020) in mL /min/1.73 sq meters. Sodium 141 136 - 145 mmol/L 10/25/2024 10:25 AM [facility] Potassium 4.6 3.4 - 5.3 mmol/L 10/25/2024 10:25 AM [facility] Chloride 104 98 - 107 mmol/L 10/25/2024 10:25 AM [facility] CO2 21(L) 22 - 33 mmol/L 10/25/2024 10:25 AM [facility] Anion Gap 16 7 - 17 10/25/2024 10:25 AM [facility] Calcium 7.8(L) 8.7 - 10.5 mg/dL 10/25/2024 10:25 AM [facility] BUN/Creatinine Ratio 16 10.0 - 25.0 Ratio 10/25/2024 10:25 AM [facility] Blood (Plasma/Serum) 10/25/2024 8:27 AM EST 10/25/2024 9:16 AM EST Neymar Mcfarland MD LAB BLOOD ORDERAB LES Performing Organization Address City/State/[place] [address], [place] [address] * (ABNORMAL) Complete Blood Count WITHOUT Differential - in AM (10/25/2024 8:27 AM EST) White Blood Cell Count 12.5(H) 4.0 - 11.0 Thou/uL 10/25/2024 9:39 AM [facility] Platelet Count 361 150 - 450 Thou/uL 10/25/2024 9:39 AM [facility] Hemoglobin 9.2(L) 13.0 - 17.7 g/dL 10/25/2024 9:39 AM [facility] Hematocrit 29.9(L) 39.0 - 54.0 % 10/25/2024 9:39 AM [facility] Red Blood Cell Count 3.01(L) 4.50 - 6.20 Mil/uL 10/25/2024 9:39 AM [facility] MCV 99 80 - 100 fL 10/25/2024 9:39 AM [facility] MCH 30.6 27.0 - 31.0 pg 10/25/2024 9:39 AM [facility] MCHC 30.8 30.0 - 36.0 g/dL 10/25/2024 9:39 AM [facility] RDW 16.7(H) 11.5 - 14.5 % 10/25/2024 9:39 AM [facility] MPV 11.3 7.5 - 12.5 fL 10/25/2024 9:39 AM [facility] Blood Blood specimen / Unknown 10/25/2024 8:27 AM EST 10/25/2024 9:16 AM EST Neymar Mcfarland MD LAB BLOOD ORDERAB LES Performing Organization Address City/State/[place] [address], [place] [address] * Heparin Assay (Anti Xa) (10/25/2024 5:21 AM EST) Anti Xa 0.51 IU/mL 10/25/2024 5:55 AM [facility] Comment: (NOTE) Heparin Thromboembolic/Standard/Full Dose Protocol: [...] LAB BLOOD ORDERAB LES Performing Organization Address [facility]/[place] [address], [place] [address] * (ABNORMAL) POCT Glucose, Fingerstick (10/25/2024 5:15 AM EST) Pathologist [facility] POC Glucose 115(H) 65 - 99 mg/dL 10/25/2024 5:15 AM EST Blood specimen / Unknown 10/25/2024 5:15 AM EST 10/25/2024 5:16 AM EST Fuad Winter MD POINT OF CARE TEST ORDERABLES Performing Organization Address [facility] de Phone Number HOSPITAL LAB See [...] Xa 0.58 IU/mL 10/24/2024 10:50 PM EST [facility] Comment: (NOTE) Heparin Thromboembolic/Standard/Full Dose Protocol: [...] LAB BLOOD ORDERAB LES Performing Organization Address [facility]/[place] [address], [place] [address] * (ABNORMAL) POCT Glucose, Fingerstick (10/24/2024 8:23 PM EST) Pathologist [facility] POC Glucose 211(H) 65 - 99 mg/dL 10/24/2024 8:24 PM EST Blood specimen / Unknown 10/24/2024 8:23 PM EST 10/24/2024 8:24 PM EST Fuad Winter MD POINT OF CARE TEST ORDERABLES Performing Organization Address [facility] de Phone Number HOSPITAL LAB See Below * Heparin Assay (Anti Xa) (10/24/2024 4:14 PM EST) Pathologist [facility] Anti Xa 0.56 IU/mL 10/24/2024 5:08 PM EST [facility] Comment: (NOTE) Heparin Thromboembolic/Standard/Full Dose Protocol: [...] LAB BLOOD ORDERAB LES Performing Organization Address [facility] Co de Phone Number [address] [address], [address] [address] * (ABNORMAL) POCT Glucose, Fingerstick (10/24/2024 4:07 PM EST) POC Glucose 152(H) 65 - 99 mg/dL 10/24/2024 4:09 PM EST Blood specimen / Unknown 10/24/2024 4:07 PM EST 10/24/2024 4:09 PM EST Fuad Winter MD POINT OF CARE TEST ORDERABLES Performing Organization Address [facility] [employer] de Phone Number [facility] See Below * (ABNORMAL) POCT Glucose, Fingerstick (10/24/2024 11:13 AM EST) POC Glucose 158(H) 65 - 99 mg/dL 10/24/2024 11:14 AM EST Blood specimen / Unknown 10/24/2024 11:13 AM EST 10/24/2024 11:14 AM EST uFad Winter MD POINT OF CARE TEST ORDERABLES Performing Organization Address [facility] Phone Number [facility] See Below * XR [...] Glucose, Fingerstick (10/24/2024 8:39 AM EST) Pathologist [facility] P[facility] Glucose 159(H) 65 - 99 mg/dL 10/24/2024 9:03 AM EST Blood specimen / Unknown 10/24/2024 8:39 AM EST 10/24/2024 9:03 AM EST Fuad Winter MD POINT OF CARE TEST ORDERABLES Performing Organization Address City/[facility]/ZIP Co de Phone Number HOSPITAL LAB See Below * (ABNORMAL) B-Hydroxybutyrate (10/24/2024 7:11 AM EST) [facility] B-Hydroxybutyrate 2.36(H) <0.28 mmol/L 10/24/2024 10:30 AM EST [facility] Comment: In the presence of uncontrolled [...] MD LAB BLOOD ORDERABLES Performing Organization Address [facility]/[place] [address], [place] [address] * Heparin Assay (Anti Xa) (10/24/2024 7:11 AM EST) Anti Xa 0.17 IU/mL 10/24/2024 8:02 AM EST [facility] Comment: (NOTE) Heparin Thromboembolic/Standard/Full Dose Protocol: [...] MD LAB BLOOD ORDERABLES Performing Organization Address [facility]/[place] [address], [place] [address] * Phosphorus (AM) (10/24/2024 7:11 AM EST) Phosphorus 4.5 2.7 - 4.5 mg/dL 10/24/2024 8:15 AM EST [facility] Blood (Plasma/Serum) 10/24/2024 7:11 AM EST 10/24/2024 7:48 AM EST Neymar Mcfarland MD LAB BLOOD ORDERAB LES Performing Organization Address [facility]/[place] [address], [place] [address] * Magnesium (AM) (10/24/2024 7:11 AM EST) Magnesium 1.8 1.6 - 2.7 mg/dL 10/24/2024 8:15 AM [facility] Blood (Plasma/Serum) 10/24/2024 7:11 AM EST 10/24/2024 7:48 AM EST Neymar Mcfarland MD LAB BLOOD ORDERAB LES Performing Organization Address City/[facility]/[place] [address], [place] [address] * (ABNORMAL) Basic Metabolic Panel (AM) (10/24/2024 7:11 AM EST) Glucose 149(H) 65 - 99 mg/dL 10/24/2024 8:15 AM EST [facility] Comment:Fasting: <100 mg/dL, Non-Fasting: <200 mg/dL (ADA 2005) Blood Urea Nitrogen (BUN) 68(H) 8 - 21 mg/dL 10/24/2024 8:15 AM [facility] Creatinine 4.0(H) 0.5 - 1.3 mg/dL 10/24/2024 8:15 AM [facility] eGFR 14(L) >59 10/24/2024 8:15 AM [facility] Comment:CKD-EPI (2020) in mL /min/1.73 sq meters. Sodium 143 136 - 145 mmol/L 10/24/2024 8:15 AM [facility] Potassium 4.9 3.4 - 5.3 mmol/L 10/24/2024 8:15 AM [facility] Chloride 105 98 - 107 mmol/L 10/24/2024 8:15 AM [facility] CO2 19(L) 22 - 33 mmol/L 10/24/2024 8:15 AM [facility] Anion Gap 19(H) 7 - 17 10/24/2024 8:15 AM [facility] Calcium 7.8(L) 8.7 - 10.5 mg/dL 10/24/2024 8:15 AM [facility] BUN/Creatinine Ratio 17 10.0 - 25.0 Ratio 10/24/2024 8:15 AM [facility] Blood (Plasma/Serum) 10/24/2024 7:11 AM EST 10/24/2024 7:48 AM EST Neymar Mcfarland MD [place] [address], [place] [address] * (ABNORMAL) Complete Blood Count WITHOUT Differential - in AM (10/24/2024 7:11 AM EST) White Blood Cell Count 12.4(H) 4.0 - 11.0 Thou/uL 10/24/2024 7:58 AM [facility] Platelet Count 360 150 - 450 Thou/uL 10/24/2024 7:58 AM [facility] Hemoglobin 9.3(L) 13.0 - 17.7 g/dL 10/24/2024 7:58 AM [facility] Hematocrit 30.1(L) 39.0 - 54.0 % 10/24/2024 7:58 AM [facility] Red Blood Cell Count 3.06(L) 4.50 - 6.20 Mil/uL 10/24/2024 7:58 AM [facility] MCV 98 80 - 100 fL 10/24/2024 7:58 AM [facility] MCH 30.4 27.0 - 31.0 pg 10/24/2024 7:58 AM [facility] MCHC 30.9 30.0 - 36.0 g/dL 10/24/2024 7:58 AM [facility] RDW 16.8(H) 11.5 - 14.5 % 10/24/2024 7:58 AM [facility] MPV 11.3 7.5 - 12.5 fL 10/24/2024 7:58 AM [facility] Blood Blood specimen / Unknown 10/24/2024 7:11 AM EST 10/24/2024 7:48 AM EST Neymar Mcfarland MD LAB BLOOD ORDERAB LES Performing Organization Address City/[facility]/[place] [address], [place] [address] * Phosphorus (Early AM) (10/24/2024 3:01 AM EST) Phosphorus 3.8 2.7 - 4.5 mg/dL 10/24/2024 3:36 AM [facility] Blood (Plasma/Serum) 10/24/2024 3:01 AM EST 10/24/2024 3:12 AM EST Macy Adam [place] [address], [place] [address] * Magnesium (Routine) (10/24/2024 3:01 AM EST) Magnesium 1.8 1.6 - 2.7 mg/dL 10/24/2024 3:36 AM [facility] Blood (Plasma/Serum) 10/24/2024 3:01 AM EST 10/24/2024 3:12 AM EST Macy Adam [place] [address], [place] [address] * (ABNORMAL) Basic Metabolic Panel (Routine) (10/24/2024 3:01 AM EST) Glucose 128(H) 65 - 99 mg/dL 10/24/2024 3:36 AM [facility] Comment:Fasting: <100 mg/dL, Non-Fasting: <200 mg/dL (ADA 2005) Blood Urea Nitrogen (BUN) 67(H) 8 - 21 mg/dL 10/24/2024 3:36 AM [facility] Creatinine 3.8(H) 0.5 - 1.3 mg/dL 10/24/2024 3:36 AM [facility] eGFR 15(L) >59 10/24/2024 3:36 AM [facility] Comment:CKD-EPI (2020) in mL /min/1.73 sq meters. Sodium 143 136 - 145 mmol/L 10/24/2024 3:36 AM [facility] Potassium 4.4 3.4 - 5.3 mmol/L 10/24/2024 3:36 AM [facility] Chloride 107 98 - 107 mmol/L 10/24/2024 3:36 AM [facility] CO2 18(L) 22 - 33 mmol/L 10/24/2024 3:36 AM [facility] Anion Gap 18(H) 7 - 17 10/24/2024 3:36 AM [facility] Calcium 7.4(L) 8.7 - 10.5 mg/dL 10/24/2024 3:36 AM [facility] BUN/Creatinine Ratio 18 10.0 - 25.0 Ratio 10/24/2024 3:36 AM EST [facility] Blood (Plasma/Serum) 10/24/2024 3:01 AM EST 10/24/2024 3:12 AM EST Macy Adam DO LAB BLOOD ORDERABLE S Performing Organization Address [facility]/[place] Co de Phone Number [facility] [address] [place] [address], [address] [address] * (ABNORMAL) POCT Glucose, Fingerstick (10/24/2024 1:53 AM EST) POC Glucose 155(H) 65 - 99 mg/dL 10/24/2024 3:46 AM EST Blood specimen / Unknown 10/24/2024 1:53 AM EST 10/24/2024 3:46 AM EST Fuad Winter MD POINT OF CARE TEST ORDERABLES Performing Organization Address [facility]/[place] Co de Phone Number HOSPITAL LAB See Below * Heparin Assay (Anti Xa) (10/23/2024 10:13 PM EST) Anti Xa 0.34 IU/mL 10/23/2024 11:19 PM EST [facility] Comment: (NOTE) Heparin Thromboembolic/Standard/Full Dose Protocol: [...] LAB BLOOD ORDERAB LES Performing Organization Address [facility]/[place] [address], [place] [address] * (ABNORMAL) POCT Glucose, Fingerstick (10/23/2024 9:02 [...] OF CARE TEST ORDERABLES Performing Organization Address City/[facility]/ZIP Co de Phone Number HOSPITAL LAB See Below * Magnesium (STAT) (10/23/2024 6:02 PM EST) [facility] Magnesium 1.8 1.6 - 2.7 mg/dL 10/23/2024 7:21 PM EST [facility] Blood (Plasma/Serum) 10/23/2024 6:02 PM EST 10/23/2024 6:47 PM EST Adam Mullen MD LAB BLOOD ORDERABL ES Performing Organization Address [facility]/[place] [address], [place] [address] * Phosphorus (STAT) (10/23/2024 6:02 PM EST) [facility] Phosphorus 3.9 2.7 - 4.5 mg/dL 10/23/2024 7:21 PM EST [facility] Blood (Plasma/Serum) 10/23/2024 6:02 PM EST 10/23/2024 6:47 PM EST Adam Mullen MD LAB BLOOD ORDERABL ES Performing Organization Address [facility]/[place] [address], [place] [address] * (ABNORMAL) Basic Metabolic Panel (STAT) (10/23/2024 6:02 PM EST) Glucose 173(H) 65 - 99 mg/dL 10/23/2024 7:21 PM [facility] Comment:Fasting: <100 mg/dL, Non-Fasting: <200 mg/dL (ADA 2004) Blood Urea Nitrogen (BUN) 71(H) 8 - 21 mg/dL 10/23/2024 7:21 PM [facility] Creatinine 4.1(H) 0.5 - 1.3 mg/dL 10/23/2024 7:21 PM [facility] eGFR 14(L) >59 10/23/2024 7:21 PM [facility] Comment:CKD-EPI (2020) in mL /min/1.73 sq meters. Sodium 145 136 - 145 mmol/L 10/23/2024 7:21 PM [facility] Potassium 5.0 3.4 - 5.3 mmol/L 10/23/2024 7:21 PM [facility] Chloride 109(H) 98 - 107 mmol/L 10/23/2024 7:21 PM [facility] CO2 21(L) 22 - 33 mmol/L 10/23/2024 7:21 PM [facility] Anion Gap 15 7 - 17 10/23/2024 7:21 PM [facility] Calcium 7.0(L) 8.7 - 10.5 mg/dL 10/23/2024 7:21 PM [facility] BUN/Creatinine Ratio 17 10.0 - 25.0 Ratio 10/23/2024 7:21 PM [facility] Blood (Plasma/Serum) 10/23/2024 6:02 PM EST 10/23/2024 6:47 PM EST Adam Mullen [place] [address], [address] [address] * ECG 12 lead (STAT) (10/23/2024 5:43 PM EST) Ventricular rate 73 BPM EKG [facility] Atrial rate 73 BPM EKG [facility] P-R interval 148 ms EKG [facility] QRS duration 80 ms EKG [facility] Q-T interval 460 ms EKG [facility] QTC calculation (Bazett) 507 ms EKG [facility] P axis 54 degrees EKG [facility] R axis 66 degrees EKG [facility] T axis 152 degrees EKG [facility] 10/23/2024 5:43 PM EST Narrative EKG [facility] - 10/24/2024 7:46 AM EST Normal sinus rhythm Nonspecific T wave abnormality Prolonged QT Abnormal ECG Confirmed by MD Wade John ([id number]) on 10/24/2024 7:46:04 AM Procedure Note Raciel Wade MD - 10/24/2024 Normal sinus rhythm Nonspecific T wave abnormality Prolonged QT Abnormal ECG Confirmed by MD Wade John ([id number]) on 10/24/2024 7:46:04 AM Braynt Gracia PA-C ECG ORDERABLES [facility] * Heparin Assay (Anti Xa) (10/23/2024 3:53 PM EST) Anti Xa 0.42 IU/mL 10/23/2024 5:30 PM EST [facility] Comment: (NOTE) Heparin Thromboembolic/Standard/Full Dose Protocol: [...] LAB BLOOD ORDERAB LES Performing Organization Address [facility]/[place] [address], [place] [address] * (ABNORMAL) POCT Glucose, Fingerstick (10/23/2024 12:59 PM EST) POC Glucose 158(H) 65 - 99 mg/dL 10/23/2024 1:00 PM EST Blood specimen / Unknown 10/23/2024 12:59 PM EST 10/23/2024 1:00 PM EST Fuad Winter MD POINT OF CARE TEST ORDERABLES HOSPITAL LAB See Below * Albumin (10/23/2024 10:31 AM EST) Albumin 3.5 3.4 - 4.8 g/dL 10/23/2024 12:13 PM EST [facility] Blood (Plasma/Serum) 10/23/2024 10:31 AM EST 10/23/2024 11:36 AM EST Neymar Mcfarland MD LAB BLOOD ORDERAB LES Performing Organization Address [facility]/[place] [address], [place] [address] * (ABNORMAL) Calcium, Ionized (10/23/2024 10:31 AM EST) Calcium, Ionized 0.88(L) 1.17 - 1.33 mmol/L 10/23/2024 12:16 PM [facility] Blood Blood specimen / Unknown 10/23/2024 10:31 AM EST 10/23/2024 11:36 AM EST Neymar Mcfarland MD LAB BLOOD ORDERAB LES Performing Organization Address [facility]/[place] [address], [place] [address] * (ABNORMAL) Calcium, Total (10/23/2024 10:31 AM EST) Calcium 7.4(L) 8.7 - 10.5 mg/dL 10/23/2024 12:13 PM EST [facility] Blood (Plasma/Serum) 10/23/2024 10:31 AM EST 10/23/2024 11:36 AM EST Neymar Mcfarland MD LAB BLOOD ORDERAB LES Performing Organization Address City/[facility]/[place] [address], [address] [address] * (ABNORMAL) PTH, Intact (10/23/2024 10:31 AM EST) PTH, Intact 579(H) 15 - 65 pg/mL 10/23/2024 12:23 PM [facility] Blood (Plasma/Serum) 10/23/2024 10:31 AM EST 10/23/2024 11:36 AM EST Neymar Mcfarland MD LAB BLOOD ORDERAB LES [address] [address], [place] [address] * POCT Glucose, Fingerstick (10/23/2024 8:36 AM EST) POC Glucose 82 65 - 99 mg/dL 10/23/2024 8:37 AM EST Blood specimen / Unknown 10/23/2024 8:36 AM EST 10/23/2024 8:37 AM EST Fuad Winter MD POINT OF CARE TEST ORDERABLES HOSPITAL LAB See Below * (ABNORMAL) LIPID PANEL (10/23/2024 6:05 AM EST) Cholesterol, Total 110 <200 mg/dL 2024 8:30 AM [facility] Triglycerides 141 <150 mg/dL 10/23/2024 8:30 AM [facility] Cholesterol, HDL 30(L) >39 mg/dL 10/23/19 8:30 AM [facility] Estimated LDL 52 <130 mg/dL 10/23/2024 8:30 AM [facility] Comment: NCEP Guidelines: ?< 100 mg/dL ??Optimal 100 - 129 mg/dL ??Near Optimal/Above Optimal 130 - 159 mg/dL ??Borderline High 160 - 189 mg/dL ??High ??>/= 190 mg/dL ??Very High Cholesterol/HDL Ratio 3.7 0.0 - 5.0 Ratio 10/23/2024 8:30 AM [facility] Comment: Relative Risk ? Ratio - Male ? Ratio - Female ?0.5 ?3.4 ?3.3 ?1.0 ?5.0 ?4.4 ?2.0 ?9.6 ?7.1 ?3.0 ? 23.4 ? 11.0 Plasma/Serum 10/23/2024 6:05 AM EST 10/23/2024 7:46 AM EST Adilia Woo MD LAB BLOOD ORDERABLES Performing Organization Address City/State/[place] [address], [place] [address] * Heparin Assay (Anti Xa) (10/23/2024 6:05 AM EST) Anti Xa 0.54 IU/mL 10/23/2024 8:02 AM [facility] Comment: (NOTE) Heparin Thromboembolic/Standard/Full Dose Protocol: [...] MD LAB BLOOD ORDERABLES Performing Organization Address City/State/[place] Co de Phone Number [facility] [address] [place] [address], [address] [address] * Phosphorus (AM) (10/23/2024 6:05 AM EST) Phosphorus 3.9 2.7 - 4.5 mg/dL 10/23/2024 8:30 AM [facility] Blood (Plasma/Serum) 10/23/2024 6:05 AM EST 10/23/2024 7:46 AM EST Neymar Mcfarland MD LAB BLOOD ORDERAB LES Performing Organization Address [facility]/[place] [address], [place] [address] * Magnesium (AM) (10/23/2024 6:05 AM EST) Magnesium 1.8 1.6 - 2.7 mg/dL 10/23/2024 8:30 AM [facility] Blood (Plasma/Serum) 10/23/2024 6:05 AM EST 10/23/2024 7:46 AM EST Neymar Mcfarland MD LAB BLOOD ORDERAB LES Performing Organization Address [facility]/[place] [address], [place] [address] * (ABNORMAL) Basic Metabolic Panel (AM) (10/23/2024 6:05 AM EST) Glucose 66 65 - 99 mg/dL 10/23/2024 8:30 AM [facility] Comment:Fasting: <100 mg/dL, Non-Fasting: <200 mg/dL (ADA 2005) Blood Urea Nitrogen (BUN) 74(H) 8 - 21 mg/dL 10/23/2024 8:30 AM [facility] Creatinine 4.1(H) 0.5 - 1.3 mg/dL 10/23/2024 8:30 AM [facility] eGFR 14(L) >59 10/23/2024 8:30 AM [facility] Comment:CKD-EPI (2020) in mL /min/1.73 sq meters. Sodium 147(H) 136 - 145 mmol/L 10/23/2024 8:30 AM [facility] Potassium 4.0 3.4 - 5.3 mmol/L 10/23/2024 8:30 AM [facility] Chloride 110(H) 98 - 107 mmol/L 10/23/2024 8:30 AM [facility] CO2 18(L) 22 - 33 mmol/L 10/23/2024 8:30 AM [facility] Anion Gap 19(H) 7 - 17 10/23/2024 8:30 AM [facility] Calcium 7.3(L) 8.7 - 10.5 mg/dL 10/23/2024 8:30 AM [facility] BUN/Creatinine Ratio 18 10.0 - 25.0 Ratio 10/23/2024 8:30 AM [facility] Blood (Plasma/Serum) 10/23/2024 6:05 AM EST 10/23/2024 7:46 AM EST Neymar Mcfarland MD LAB BLOOD ORDERAB LES Performing Organization Address City/State/[place] [address], [place] [address] * (ABNORMAL) Complete Blood Count WITHOUT Differential - in AM (10/23/2024 6:05 AM EST) White Blood Cell Count 11.2(H) 4.0 - 11.0 Thou/uL 10/23/2024 8:29 AM [facility] Platelet Count 374 150 - 450 Thou/uL 10/23/2024 8:29 AM [facility] Hemoglobin 9.6(L) 13.0 - 17.7 g/dL 10/23/2024 8:29 AM [facility] Hematocrit 30.5(L) 39.0 - 54.0 % 10/23/2024 8:29 AM [facility] Red Blood Cell Count 3.17(L) 4.50 - 6.20 Mil/uL 10/23/2024 8:29 AM [facility] MCV 96 80 - 100 fL 10/23/2024 8:29 AM [facility] MCH 30.3 27.0 - 31.0 pg 10/23/2024 8:29 AM [facility] MCHC 31.5 30.0 - 36.0 g/dL 10/23/2024 8:29 AM EST [facility] RDW 16.4(H) 11.5 - 14.5 % 10/23/2024 8:29 AM EST [facility] MPV 11.6 7.5 - 12.5 fL 10/23/2024 8:29 AM EST [facility] Blood Blood specimen / Unknown 10/23/2024 6:05 AM EST 10/23/2024 7:46 AM EST Neymar Mcfarland MD [place] [address], [place] [address] * POCT Glucose, Fingerstick (10/23/2024 1:59 AM EST) POC Glucose 83 65 - 99 mg/dL 10/23/2024 2:00 AM EST Blood specimen / Unknown 10/23/2024 1:59 AM EST 10/23/2024 2:00 AM EST Fuad Winter MD POINT OF CARE TEST ORDERABLES Performing Organization Address City/[facility]/ZIP Co de Phone Number [facility] LAB See Below * (ABNORMAL) [...] OF CARE TEST ORDERABLES Performing Organization Address [facility] LAB See Below * (ABNORMAL) POCT Glucose, Fingerstick (10/22/2024 1:10 PM EST) POC Glucose 154(H) 65 - 99 mg/dL 10/22/2024 1:10 PM EST Blood specimen / Unknown 10/22/2024 1:10 PM EST 10/22/2024 1:11 PM EST Fuad Winter MD POINT OF CARE TEST ORDERABLES Performing Organization Address [facility] LAB See Below * (ABNORMAL) POCT Glucose, Fingerstick (10/22/2024 9:10 AM EST) POC Glucose 139(H) 65 - 99 mg/dL 10/22/2024 9:11 AM EST Blood specimen / Unknown 10/22/2024 9:10 AM EST 10/22/2024 9:11 AM EST Fuad Winter MD POINT OF CARE TEST ORDERABLES Performing Organization Address [facility] Number [facility] LAB See Below * Heparin Assay (Anti Xa) (10/22/2024 8:12 AM EST) Anti Xa 0.37 IU/mL 10/22/2024 8:35 AM EST [facility] Comment: (NOTE) Heparin Thromboembolic/Standard/Full Dose Protocol: [...] EST Adilia Woo MD LAB BLOOD ORDERABLES [facility] [address] [place] [address], [facility] [address] [place] [address] * (ABNORMAL) Complete Blood Count WITHOUT Differential - in AM (10/22/2024 8:12 AM EST) White Blood Cell Count 10.7 4.0 - 11.0 Thou/uL 10/22/2024 8:44 AM [facility] Platelet Count 337 150 - 450 Thou/uL 10/22/2024 8:44 AM [facility] Hemoglobin 9.4(L) 13.0 - 17.7 g/dL 10/22/2024 8:44 AM [facility] Hematocrit 30.3(L) 39.0 - 54.0 % 10/22/2024 8:44 AM [facility] Red Blood Cell Count 3.13(L) 4.50 - 6.20 Mil/uL 10/22/2024 8:44 AM [facility] MCV 97 80 - 100 fL 10/22/2024 8:44 AM [facility] MCH 30.0 27.0 - 31.0 pg 10/22/2024 8:44 AM [facility] MCHC 31.0 30.0 - 36.0 g/dL 10/22/2024 8:44 AM [facility] RDW 16.2(H) 11.5 - 14.5 % 10/22/2024 8:44 AM [facility] MPV 11.3 7.5 - 12.5 fL 10/22/2024 8:44 AM [facility] Blood Blood specimen / Unknown 10/22/2024 8:12 AM EST 10/22/2024 8:18 AM EST Adilia Woo MD LAB BLOOD ORDERABLES Performing Organization Address [facility]/[place] [address], [place] [address] * Magnesium (AM) (10/22/2024 8:12 AM EST) Magnesium 1.7 1.6 - 2.7 mg/dL 10/22/2024 8:54 AM [facility] Blood (Plasma/Serum) 10/22/2024 8:12 AM EST 10/22/2024 8:18 AM EST Adilia Woo [place] [address], [place] [address] * (ABNORMAL) Basic Metabolic Panel (AM) (10/22/2024 8:12 AM EST) Glucose 124(H) 65 - 99 mg/dL 10/22/2024 8:54 AM [facility] Comment:Fasting: <100 mg/dL, Non-Fasting: <200 mg/dL (ADA 2004) Blood Urea Nitrogen (BUN) 82(H) 8 - 21 mg/dL 10/22/2024 8:54 AM [facility] Creatinine 4.3(H) 0.5 - 1.3 mg/dL 10/22/2024 8:54 AM [facility] eGFR 13(L) >59 10/22/2024 8:54 AM [facility] Comment:CKD-EPI (2020) in mL /min/1.73 sq meters. Sodium 145 136 - 145 mmol/L 10/22/2024 8:54 AM [facility] Potassium 4.4 3.4 - 5.3 mmol/L 10/22/2024 8:54 AM [facility] Chloride 110(H) 98 - 107 mmol/L 10/22/2024 8:54 AM [facility] CO2 17(L) 22 - 33 mmol/L 10/22/2024 8:54 AM [facility] Anion Gap 18(H) 7 - 17 10/22/2024 8:54 AM [facility] Calcium 7.1(L) 8.7 - 10.5 mg/dL 10/22/2024 8:54 AM [facility] BUN/Creatinine Ratio 19 10.0 - 25.0 Ratio 10/22/2024 8:54 AM [facility] Blood (Plasma/Serum) 10/22/2024 8:12 AM EST 10/22/2024 8:18 AM EST Adilia Woo [place] [address], [address] [place] [address] * (ABNORMAL) POCT Glucose, Fingerstick (10/22/2024 1:23 AM EST) POC Glucose 122(H) 65 - 99 mg/dL 10/22/2024 1:28 AM EST Blood specimen / Unknown 10/22/2024 1:23 AM EST 10/22/2024 1:28 AM EST Fuad Winter MD POINT OF CARE TEST ORDERABLES HOSPITAL LAB See Below * ECG 12 lead (10/21/2024 9:45 PM EST) Ventricular rate 80 BPM EKG [facility] Atrial rate 80 BPM EKG [facility] P-R interval 146 ms EKG [facility] QRS duration 86 ms EKG [facility] Q-T interval 438 ms EKG [facility] QTC calculation (Bazett) 506 ms EKG [facility] P axis 52 degrees [address] [facility] R axis 59 degrees EKG [facility] T axis 229 degrees EKG [facility] 10/21/2024 9:45 PM EST Narrative EKG [facility] - 10/22/2024 7:57 AM EST Normal [...] Hanson MD ECG ORDERABLES Performing Organization Address City/[facility] de Phone Number [facility] * (ABNORMAL) POCT Glucose, Fingerstick (10/21/2024 9:04 PM EST) POC Glucose 190(H) 65 - 99 mg/dL 10/21/2024 9:09 PM EST Blood specimen / Unknown 10/21/2024 9:04 PM EST 10/21/2024 9:09 PM EST Fuad Winter MD POINT OF CARE TEST ORDERABLES Performing Organization Address [facility] Number [facility] LAB See Below * (ABNORMAL) POCT Glucose, Fingerstick (10/21/2024 6:23 PM EST) POC Glucose 140(H) 65 - 99 mg/dL 10/21/2024 6:24 PM EST Blood specimen / Unknown 10/21/2024 6:23 PM EST 10/21/2024 6:24 PM EST Fuad Winter MD POINT OF CARE TEST ORDERABLES Performing Organization Address [facility] Number [facility] See Below * (ABNORMAL) POCT Glucose, Fingerstick (10/21/2024 1:38 PM EST) POC Glucose 270(H) 65 - 99 mg/dL 10/21/2024 1:39 PM EST Blood specimen / Unknown 10/21/2024 1:38 PM EST 10/21/2024 1:39 PM EST Fuad Winter MD POINT OF CARE TEST ORDERABLES Performing Organization Address [facility] Phone Number [facility] See Below * (ABNORMAL) [...] Xa 0.42 IU/mL 10/21/2024 9:49 AM EST [facility] Comment: (NOTE) Heparin Thromboembolic/Standard/Full Dose Protocol: [...] MD LAB BLOOD ORDERABLES Performing Organization Address [facility] [place] [address], [place] [address] * (ABNORMAL) POCT Glucose, Fingerstick (10/21/2024 8:35 AM EST) [facility] POC Glucose 219(H) 65 - 99 mg/dL 10/21/2024 8:36 AM EST Blood specimen / Unknown 10/21/2024 8:35 AM EST 10/21/2024 8:36 AM EST Fuad Winter MD POINT OF CARE TEST ORDERABLES Performing Organization Address [facility] Phone Number [facility] See Below * (ABNORMAL) POCT Glucose, Fingerstick (10/21/2024 8:03 AM EST) POC Glucose 181(H) 65 - 99 mg/dL 10/21/2024 8:04 AM EST Blood specimen / Unknown 10/21/2024 8:03 AM EST 10/21/2024 8:04 AM EST Fuad Winter MD POINT OF CARE TEST ORDERABLES Performing Organization Address [facility] [employer] Phone Number [facility] See Below * (ABNORMAL) Basic Metabolic Panel (Routine) (10/21/2024 3:09 AM EST) Glucose 193(H) 65 - 99 mg/dL 10/21/2024 3:41 AM [facility] Comment:Fasting: <100 mg/dL, Non-Fasting: <200 mg/dL (ADA 2004) Blood Urea Nitrogen (BUN) 83(H) 8 - 21 mg/dL 10/21/2024 3:41 AM [facility] Creatinine 4.3(H) 0.5 - 1.3 mg/dL 10/21/2024 3:41 AM [facility] eGFR 13(L) >59 10/21/2024 3:41 AM [facility] Comment:CKD-EPI (2020) in mL /min/1.73 sq meters. Sodium 140 136 - 145 mmol/L 10/21/2024 3:41 AM [facility] Potassium 4.5 3.4 - 5.3 mmol/L 10/21/2024 3:41 AM [facility] Chloride 109(H) 98 - 107 mmol/L 10/21/2024 3:41 AM [facility] CO2 15(L) 22 - 33 mmol/L 10/21/2024 3:41 AM [facility] Anion Gap 16 7 - 17 10/21/2024 3:41 AM [facility] Calcium 7.1(L) 8.7 - 10.5 mg/dL 10/21/2024 3:41 AM [facility] BUN/Creatinine Ratio 19 10.0 - 25.0 Ratio 10/21/2024 3:41 AM [facility] Blood (Plasma/Serum) 10/21/2024 3:09 AM EST 10/21/2024 3:13 AM EST Magdaleno Crodwer MD [place] [address], [place] [address] * (ABNORMAL) Complete Blood Count WITHOUT Differential - Early AM (10/21/2024 3:09 AM EST) White Blood Cell Count 10.8 4.0 - 11.0 Thou/uL 10/21/2024 3:18 AM [facility] Platelet Count 299 150 - 450 Thou/uL 10/21/2024 3:18 AM [facility] Hemoglobin 8.9(L) 13.0 - 17.7 g/dL 10/21/2024 3:18 AM [facility] Hematocrit 28.9(L) 39.0 - 54.0 % 10/21/2024 3:18 AM [facility] Red Blood Cell Count 2.97(L) 4.50 - 6.20 Mil/uL 10/21/2024 3:18 AM [facility] MCV 97 80 - 100 fL 10/21/2024 3:18 AM [facility] MCH 30.0 27.0 - 31.0 pg 10/21/2024 3:18 AM [facility] MCHC 30.8 30.0 - 36.0 g/dL 10/21/2024 3:18 AM [facility] RDW 16.3(H) 11.5 - 14.5 % 10/21/2024 3:18 AM [facility] MPV 11.0 7.5 - 12.5 fL 10/21/2024 3:18 AM [facility] Blood Blood specimen / Unknown 10/21/2024 3:09 AM EST 10/21/2024 3:13 AM EST Magdaleno Crowder MD LAB BLOOD ORDERABLES Performing Organization Address City/State/[place] [address], [place] [address] * Heparin Assay (Anti Xa) (10/21/2024 3:09 AM EST) Anti Xa 0.35 IU/mL 10/21/2024 3:31 AM [facility] Comment: (NOTE) Heparin Thromboembolic/Standard/Full Dose Protocol: [...] MD LAB BLOOD ORDERABLES Performing Organization Address [facility]/State/[place] [address], [facility] [address] [place] [address] * (ABNORMAL) POCT Glucose, Fingerstick (10/21/2024 2:23 AM EST) POC Glucose 198(H) 65 - 99 mg/dL 10/21/2024 2:23 AM EST Blood specimen / Unknown 10/21/2024 2:23 AM EST 10/21/2024 2:24 AM EST Fuad Winter MD POINT OF CARE TEST ORDERABLES Performing Organization Address [facility] Phone Number HOSPITAL LAB See Below * (ABNORMAL) POCT Glucose, Fingerstick (10/20/2024 8:47 PM EST) POC Glucose 218(H) 65 - 99 mg/dL 10/20/2024 8:50 PM EST Blood specimen / Unknown 10/20/2024 8:47 PM EST 10/20/2024 8:50 PM EST Fuad Winter MD POINT OF CARE TEST ORDERABLES Performing Organization Address [facility] Number [facility] LAB See Below * Heparin Assay (Anti Xa) (10/20/2024 8:34 PM EST) Pathologist [facility] Anti Xa 0.29 IU/mL 10/20/2024 9:00 PM EST [facility] Comment: (NOTE) Heparin Thromboembolic/Standard/Full Dose Protocol: [...] MD LAB BLOOD ORDERABLES Performing Organization Address City/State/[place] [address], [place] [address] * (ABNORMAL) POCT Glucose, Fingerstick (10/20/2024 5:51 PM EST) POC Glucose 175(H) 65 - 99 mg/dL 10/20/2024 5:52 PM EST Blood specimen / Unknown 10/20/2024 5:51 PM EST 10/20/2024 5:52 PM EST Fuad Winter MD POINT OF CARE TEST ORDERABLES Performing Organization Address [facility] Phone [facility] LAB See Below * (ABNORMAL) POCT Glucose, Fingerstick (10/20/2024 3:47 PM EST) POC Glucose 222(H) 65 - 99 mg/dL 10/20/2024 3:52 PM EST Blood specimen / Unknown 10/20/2024 3:47 PM EST 10/20/2024 3:52 PM EST Fuad Winter MD POINT OF CARE TEST ORDERABLES Performing Organization Address [facility] Phone Number [facility] LAB See Below * (ABNORMAL) POCT Glucose, Fingerstick (10/20/2024 11:43 AM EST) POC Glucose 210(H) 65 - 99 mg/dL 10/20/2024 11:45 AM EST Blood specimen / Unknown 10/20/2024 11:43 AM EST 10/20/2024 11:44 AM EST Fuad Winter MD POINT OF CARE TEST ORDERABLES Performing Organization Address [facility] LAB See Below * (ABNORMAL) Blood Gas, Venous (10/20/2024 10:39 AM EST) Pathologist [facility] Venous Blood PH 7.29(L) 7.33 - 7.43 10/20/2024 10:54 AM [facility] Venous pCO2 39 35 - 50 mmHG 10/20/2024 10:54 AM [facility] Venous pO2 49 0 - 60 mmHG 10/20/2024 10:54 AM [facility] Venous Total CO2 20(L) 23 - 29 mmol/L 10/20/2024 10:54 AM [facility] Respiratory Info NASAL 4 L/MIN 10/20/2024 10:39 AM EST Base Deficiency 7.2 mmol/L 10:54 AM [facility] Comment:Reference Range: Neg ative 2 to Positive 3 Blood Blood specimen / Unknown 10/20/2024 10:39 AM EST 10/20/2024 10:47 AM EST Kristopher Hickey MD LAB BLOOD ORDERAB LES Performing Organization Address [facility]/[place] [address], [place] [address] * (ABNORMAL) POCT Glucose, Fingerstick (10/20/2024 10:37 AM EST) POC Glucose 187(H) 65 - 99 mg/dL 10/20/2024 10:37 AM EST Blood specimen / Unknown 10/20/2024 10:37 AM EST 10/20/2024 10:38 AM EST Fuad Winter MD POINT OF CARE TEST ORDERABLES Performing Organization Address [facility] [employer] de Phone Number HOSPITAL LAB See Below * Lactic Acid, Plasma (STAT) (10/20/2024 10:00 AM EST) Lactic Acid 0.8 0.5 - 1.9 mmol/L 10/20/2024 10:37 AM EST [facility] Blood Plasma specimen / Unknown 10/20/2024 10:00 AM EST 10/20/2024 10:07 AM EST Kristopher Hickey MD LAB BLOOD ORDERAB LES Performing Organization Address [facility]/[place] Co de Phone Number [address] [address], [address] [address] * (ABNORMAL) POCT Glucose, Fingerstick (10/20/2024 7:48 AM EST) POC Glucose 156(H) 65 - 99 mg/dL 10/20/2024 7:49 AM EST Blood specimen / Unknown 10/20/2024 7:48 AM EST 10/20/2024 7:49 AM EST Fuad Winter MD POINT OF CARE TEST ORDERABLES [facility] LAB See Below * (ABNORMAL) POCT Glucose, Fingerstick (10/20/2024 5:43 AM EST) POC Glucose 148(H) 65 - 99 mg/dL 10/20/2024 5:44 AM EST Blood specimen / Unknown 10/20/2024 5:43 AM EST 10/20/2024 5:44 AM EST Fuad Winter MD POINT OF CARE TEST ORDERABLES Performing Organization Address City/[facility]/[place] [employer] Phone Number [facility] LAB See Below * (ABNORMAL) POCT Glucose, Fingerstick (10/20/2024 2:15 AM EST) POC Glucose 219(H) 65 - 99 mg/dL 10/20/2024 2:16 AM EST Blood specimen / Unknown 10/20/2024 2:15 AM EST 10/20/2024 2:16 AM EST Fuad Winter MD POINT OF CARE TEST ORDERABLES Performing Organization Address [facility] de Phone Number [facility] LAB See Below * Phosphorus (Routine) (10/19/2024 11:59 PM EST) Phosphorus 4.4 2.7 - 4.5 mg/dL 10/20/2024 1:00 AM EST [facility] Blood (Plasma/Serum) 10/19/2024 11:59 PM EST 10/20/2024 12:25 AM EST Kristopher Hickey MD LAB BLOOD ORDERAB LES Performing Organization Address [facility]/[place] [address], [place] [address] * Magnesium (Routine) (10/19/2024 11:59 PM EST) Magnesium 1.6 1.6 - 2.7 mg/dL 10/20/2024 1:00 AM [facility] Blood (Plasma/Serum) 10/19/2024 11:59 PM EST 10/20/2024 12:25 AM EST Kristopher Hickey MD [place] [address], [address] [address] * (ABNORMAL) Complete Blood Count, with Differential (10/19/2024 11:59 PM EST) White Blood Cell Count 11.5(H) 4.0 - 11.0 Thou/uL 10/20/2024 12:32 AM [facility] Platelet Count 271 150 - 450 Thou/uL 10/20/2024 12:32 AM [facility] Hemoglobin 8.9(L) 13.0 - 17.7 g/dL 10/20/2024 12:32 AM [facility] Hematocrit 28.6(L) 39.0 - 54.0 % 10/20/2024 12:32 AM [facility] Red Blood Cell Count 2.93(L) 4.50 - 6.20 Mil/uL 10/20/2024 12:32 AM [facility] MCV 98 80 - 100 fL 10/20/2024 12:32 AM [facility] MCH 30.4 27.0 - 31.0 pg 10/20/2024 12:32 AM [facility] MCHC 31.1 30.0 - 36.0 g/dL 10/20/2024 12:32 AM [facility] RDW 16.5(H) 11.5 - 14.5 % 10/20/2024 12:32 AM [facility] MPV 11.3 7.5 - 12.5 fL 10/20/2024 12:32 AM [facility] Neutrophils Auto 80.7 % 10/20/19 12:32 AM [facility] Immature Granulocytes 0.6 % 10/20/2024 12:32 AM [facility] Lymphocytes Auto 11.6 % 10/20/19 12:32 AM [facility] Monocytes Auto 6.7 % 10/20/2024 12:32 AM [facility] Eosinophils Auto 0.2 % 10/20/19 12:32 AM [facility] Basophils Auto 0.2 % 10/20/2024 12:32 AM [facility] Abs Neutrophils Auto 9.25(H) 2.00 - 7.50 Thou/uL 10/20/2024 12:32 AM [facility] Abs Immature Granulocytes 0.07 0.00 - 0.10 Thou/uL 10/20/2024 12:32 AM [facility] Abs Lymphocytes Auto 1.33(L) 1.50 - 4.50 Thou/uL 10/20/2024 12:32 AM [facility] Abs Monocytes Auto 0.77 0.20 - 1.50 Thou/uL 10/20/2024 12:32 AM [facility] Abs Eosinophils Auto 0.02 0.00 - 0.70 Thou/uL 10/20/2024 12:32 AM [facility] Abs Basophils Auto 0.02 0.00 - 0.20 Thou/uL 10/20/2024 12:32 AM [facility] Blood Blood specimen / Unknown 10/19/2024 11:59 PM EST 10/20/2024 12:25 AM EST Fuad Winter MD [place] [address], [place] [address] * (ABNORMAL) Basic Metabolic Panel (Routine) (10/19/2024 11:59 PM EST) Glucose 183(H) 65 - 99 mg/dL 10/20/2024 1:00 AM [facility] Comment:Fasting: <100 mg/dL, Non-Fasting: <200 mg/dL (ADA 2005) Blood Urea Nitrogen (BUN) 86(H) 8 - 21 mg/dL 10/20/2024 1:00 AM [facility] Creatinine 4.7(H) 0.5 - 1.3 mg/dL 10/20/2024 1:00 AM [facility] eGFR 12(L) >59 10/20/2024 1:00 AM [facility] Comment:CKD-EPI (2020) in mL /min/1.73 sq meters. Sodium 140 136 - 145 mmol/L 10/20/2024 1:00 AM [facility] Potassium 4.4 3.4 - 5.3 mmol/L 10/20/2024 1:00 AM [facility] Chloride 106 98 - 107 mmol/L 10/20/2024 1:00 AM [facility] CO2 14(L) 22 - 33 mmol/L 10/20/2024 1:00 AM [facility] Anion Gap 20(H) 7 - 17 10/20/2024 1:00 AM [facility] Calcium 7.2(L) 8.7 - 10.5 mg/dL 10/20/2024 1:00 AM [facility] BUN/Creatinine Ratio 18 10.0 - 25.0 Ratio 10/20/2024 1:00 AM [facility] Blood (Plasma/Serum) 10/19/2024 11:59 PM EST 10/20/2024 12:25 AM EST Magdaleno Crowder [place] [address], [place] [address] * Heparin Assay (Anti Xa) (10/19/2024 11:59 PM EST) Anti Xa 0.45 IU/mL 10/20/2024 12:49 AM [facility] Comment: (NOTE) Heparin Thromboembolic/Standard/Full Dose Protocol: [...] LAB BLOOD ORDERAB LES Performing Organization Address City/State/[place] [address], [place] [address] * (ABNORMAL) POCT Glucose, Fingerstick (10/19/2024 8:00 PM EST) POC Glucose 132(H) 65 - 99 mg/dL 10/20/2024 2:16 AM EST Blood specimen / Unknown 10/19/2024 8:00 PM EST 10/20/2024 2:16 AM EST Fuad Winter MD POINT OF CARE TEST ORDERABLES Performing Organization Address [facility] LAB See Below * (ABNORMAL) POCT Glucose, Fingerstick (10/19/2024 6:53 PM EST) POC Glucose 165(H) 65 - 99 mg/dL 10/19/2024 6:54 PM EST Blood specimen / Unknown 10/19/2024 6:53 PM EST 10/19/2024 6:54 PM EST Fuad Winter MD POINT OF CARE TEST ORDERABLES Performing Organization Address [facility] LAB See Below * (ABNORMAL) POCT Glucose, Fingerstick (10/19/2024 5:42 PM EST) POC Glucose 114(H) 65 - 99 mg/dL 10/19/2024 5:43 PM EST Blood specimen / Unknown 10/19/2024 5:42 PM EST 10/19/2024 5:43 PM EST Fuad Winter MD POINT OF CARE TEST ORDERABLES Performing Organization Address [facility] LAB See Below * (ABNORMAL) POCT Glucose, Fingerstick (10/19/2024 4:33 PM EST) POC Glucose 159(H) 65 - 99 mg/dL 10/19/2024 4:34 PM EST Blood specimen / Unknown 10/19/2024 4:33 PM EST 10/19/2024 4:34 PM EST Fuad Winter MD POINT OF CARE TEST ORDERABLES Performing Organization Address [facility] LAB See Below * (ABNORMAL) Basic Metabolic Panel (10/19/2024 3:47 PM EST) Glucose 126(H) 65 - 99 mg/dL 10/19/2024 4:58 PM [facility] Comment:Fasting: <100 mg/dL, Non-Fasting: <200 mg/dL (ADA 2004) Blood Urea Nitrogen (BUN) 81(H) 8 - 21 mg/dL 10/19/2024 4:58 PM [facility] Creatinine 4.6(H) 0.5 - 1.3 mg/dL 10/19/2024 4:58 PM [facility] eGFR 12(L) >59 10/19/2024 4:58 PM [facility] Comment:CKD-EPI (2020) in mL /min/1.73 sq meters. Sodium 143 136 - 145 mmol/L 10/19/2024 4:58 PM [facility] Potassium 4.4 3.4 - 5.3 mmol/L 10/19/2024 4:58 PM [facility] Chloride 109(H) 98 - 107 mmol/L 10/19/2024 4:58 PM [facility] CO2 15(L) 22 - 33 mmol/L 10/19/2024 4:58 PM [facility] Anion Gap 19(H) 7 - 17 10/19/2024 4:58 PM [facility] Calcium 7.0(L) 8.7 - 10.5 mg/dL 10/19/2024 4:58 PM [facility] BUN/Creatinine Ratio 18 10.0 - 25.0 Ratio 10/19/2024 4:58 PM [facility] Blood (Plasma/Serum) 10/19/2024 3:47 PM EST 10/19/2024 4:16 PM EST Pushpa Gallegos MD [place] [address], [place] [address] * (ABNORMAL) Hemoglobin and Hematocrit (10/19/2024 2:25 PM EST) Hematocrit 32.3(L) 39.0 - 54.0 % 10/19/2024 3:39 PM [facility] Hemoglobin 9.9(L) 13.0 - 17.7 g/dL 10/19/2024 3:39 PM [facility] Blood Blood specimen / Unknown 10/19/2024 2:25 PM EST 10/19/2024 3:31 PM EST Kristopher Hickey MD LAB BLOOD ORDERAB LES Performing Organization Address [facility] [employer] de Phone Number [facility] [address] [place] [address], [facility] [address] [place] [address] * Heparin Assay (Anti Xa) (10/19/2024 2:25 PM EST) Anti Xa 0.52 IU/mL 10/19/2024 3:44 PM [facility] Comment: (NOTE) Heparin Thromboembolic/Standard/Full Dose Protocol: [...] LAB BLOOD ORDERAB LES Performing Organization Address City/State/[place] [address], [place] [address] * (ABNORMAL) Blood Gas, Venous (10/19/2024 2:25 PM EST) Venous Blood PH 7.32(L) 7.33 - 7.43 10/19/2024 3:10 PM [facility] Venous pCO2 31(L) 35 - 50 mmHG 10/19/2024 3:10 PM [facility] Venous pO2 <30 0 - 60 mmHG 10/19/2024 3:10 PM [facility] Venous Total CO2 17(L) 23 - 29 mmol/L 10/19/2024 3:10 PM [facility] Respiratory Info VM 50% 10/19/19 2:25 PM EST Base Deficiency 9.0 mmol/L 3:10 PM [facility] Comment:Reference Range: Neg ative 2 to Positive 3 Blood Blood specimen / Unknown 10/19/2024 2:25 PM EST 10/19/2024 2:56 PM EST Pushpa Gallegos MD LAB BLOOD ORDERABLES Performing Organization Address [facility] Co de Phone Number [address] [address], [address] [address] * (ABNORMAL) POCT Glucose, Fingerstick (10/19/2024 1:52 PM EST) POC Glucose 133(H) 65 - 99 mg/dL 10/19/2024 1:53 PM EST Blood specimen / Unknown 10/19/2024 1:52 PM EST 10/19/2024 1:53 PM EST Fuad Winter MD POINT OF CARE TEST ORDERABLES Performing Organization Address [facility] de Phone Number [facility] LAB See Below * (ABNORMAL) POCT Glucose, Fingerstick (10/19/2024 11:40 AM EST) POC Glucose 145(H) 65 - 99 mg/dL 10/19/2024 11:41 AM EST Blood specimen / Unknown 10/19/2024 11:40 AM EST 10/19/2024 11:41 AM EST Fuad Winter MD POINT OF CARE TEST ORDERABLES Performing Organization Address [facility] [employer] de Phone Number [facility] LAB See Below * B-Hydroxybutyrate (10/19/2024 11:34 AM EST) B-Hydroxybutyrate 0.26 <0.28 mmol/L 10/19/2024 4:15 PM EST [facility] Comment: In the presence of uncontrolled [...] MD LAB BLOOD ORDERABLES Performing Organization Address City/[facility]/[place] [address], [place] [address] * (ABNORMAL) High Sensitivity Troponin T (10/19/2024 11:34 AM EST) High Sensitivity Troponin T 4,276(HH) <23 ng/L 10/19/2024 3:44 PM [facility] Comment:Recurring Critical R esult. Previously phoned. Delta (Change) 2,446(H) <3 10/19/2024 3:44 PM [facility] Comment:Increased Plasma/Serum 10/19/2024 11:3 4 AM EST 10/19/2024 11:54 AM EST Pushpa Gallegos MD LAB BLOOD ORDERABLES Performing Organization Address City/[facility]/[place] [address], [place] [address] * (ABNORMAL) Basic Metabolic Panel (10/19/2024 11:34 AM EST) Pathologist [facility] Glucose 128(H) 65 - 99 mg/dL 10/19/2024 1:00 PM [facility] Comment:Fasting: <100 mg/dL, Non-Fasting: <200 mg/dL (ADA 2005) Blood Urea Nitrogen (BUN) 84(H) 8 - 21 mg/dL 10/19/2024 1:00 PM [facility] Creatinine 4.8(H) 0.5 - 1.3 mg/dL 10/19/2024 1:00 PM [facility] eGFR 12(L) >59 10/19/2024 1:00 PM [facility] Comment:CKD-EPI (2020) in mL /min/1.73 sq meters. Sodium 142 136 - 145 mmol/L 10/19/2024 1:00 PM [facility] Potassium 4.3 3.4 - 5.3 mmol/L 10/19/2024 1:00 PM [facility] Chloride 110(H) 98 - 107 mmol/L 10/19/2024 1:00 PM [facility] CO2 14(L) 22 - 33 mmol/L 10/19/2024 1:00 PM [facility] Anion Gap 18(H) 7 - 17 10/19/2024 1:00 PM [facility] Calcium 7.0(L) 8.7 - 10.5 mg/dL 10/19/2024 1:00 PM [facility] BUN/Creatinine Ratio 18 10.0 - 25.0 Ratio 10/19/2024 1:00 PM [facility] Blood (Plasma/Serum) 10/19/2024 11:34 AM EST 10/19/2024 11:54 AM EST Pushpa Gallegos MD LAB BLOOD ORDERABLES Performing Organization Address City/[facility]/[place] [address], [place] [address] * (ABNORMAL) Blood Gas, Venous (10/19/2024 10:36 AM EST) Venous Blood PH 7.32(L) 7.33 - 7.43 10/19/2024 10:59 AM [facility] Venous pCO2 33(L) 35 - 50 mmHG 10/19/2024 10:59 AM [facility] Venous pO2 53 0 - 60 mmHG 10/19/2024 10:59 AM [facility] Venous Total CO2 18(L) 23 - 29 mmol/L 10/19/2024 10:59 AM [facility] Respiratory Info VM 50% 10/19/19 25 10:36 AM EST Base Deficiency 8.3 mmol/L 10:59 AM [facility] Comment:Reference Range: Neg ative 2 to Positive 3 Blood Blood specimen / Unknown 10/19/2024 10:36 AM EST 10/19/2024 10:56 AM EST Pushpa Gallegos MD LAB BLOOD ORDERABLES Performing Organization Address City/[facility]/[place] [address], [facility] [address] [place] [address] * (ABNORMAL) POCT Glucose, Fingerstick (10/19/2024 10:34 AM EST) POC Glucose 131(H) 65 - 99 mg/dL 10/19/2024 10:34 AM EST Blood specimen / Unknown 10/19/2024 10:34 AM EST 10/19/2024 10:35 AM EST Fuad Winter MD POINT OF CARE TEST ORDERABLES Performing Organization Address [facility] Phone Number [facility] LAB See Below * (ABNORMAL) POCT Glucose, Fingerstick (10/19/2024 9:08 AM EST) POC Glucose 146(H) 65 - 99 mg/dL 10/19/2024 9:08 AM EST Blood specimen / Unknown 10/19/2024 9:08 AM EST 10/19/2024 9:09 AM EST Fuad Winter MD POINT OF CARE TEST ORDERABLES Performing Organization Address [facility] LAB See Below * (ABNORMAL) POCT Glucose, Fingerstick (10/19/2024 7:58 AM EST) POC Glucose 118(H) 65 - 99 mg/dL 10/19/2024 8:00 AM EST Blood specimen / Unknown 10/19/2024 7:58 AM EST 10/19/2024 7:59 AM EST Fuad Winter MD POINT OF CARE TEST ORDERABLES Performing Organization Address [facility] Number [facility] LAB See Below * Heparin Assay (Anti Xa) (10/19/2024 7:44 AM EST) Anti Xa 0.36 IU/mL 10/19/2024 8:39 AM EST [facility] Comment: (NOTE) Heparin Thromboembolic/Standard/Full Dose Protocol: [...] LAB BLOOD ORDERAB LES Performing Organization Address City/[facility]/[place] [address], [place] [address] * (ABNORMAL) Basic Metabolic Panel (10/19/2024 7:44 AM EST) Glucose 110(H) 65 - 99 mg/dL 10/19/2024 8:53 AM [facility] Comment:Fasting: <100 mg/dL, Non-Fasting: <200 mg/dL (ADA 2004) Blood Urea Nitrogen (BUN) 84(H) 8 - 21 mg/dL 10/19/2024 8:53 AM [facility] Creatinine 4.8(H) 0.5 - 1.3 mg/dL 10/19/2024 8:53 AM [facility] eGFR 12(L) >59 10/19/2024 8:53 AM [facility] Comment:CKD-EPI (2020) in mL /min/1.73 sq meters. Sodium 141 136 - 145 mmol/L 10/19/2024 8:53 AM [facility] Potassium 4.6 3.4 - 5.3 mmol/L 10/19/2024 8:53 AM [facility] Chloride 109(H) 98 - 107 mmol/L 10/19/2024 8:53 AM [facility] CO2 14(L) 22 - 33 mmol/L 10/19/2024 8:53 AM [facility] Anion Gap 18(H) 7 - 17 10/19/2024 8:53 AM [facility] Calcium 7.2(L) 8.7 - 10.5 mg/dL 10/19/2024 8:53 AM [facility] BUN/Creatinine Ratio 18 10.0 - 25.0 Ratio 10/19/2024 8:53 AM [facility] Blood (Plasma/Serum) 10/19/2024 7:44 AM EST 10/19/2024 8:19 AM EST Pushpa Gallegos MD [place] [address], [facility] [address] [place] [address] * (ABNORMAL) POCT Glucose, Fingerstick (10/19/2024 6:38 AM EST) [facility] POC Glucose 148(H) 65 - 99 mg/dL 10/19/2024 6:39 AM EST Blood specimen / Unknown 10/19/2024 6:38 AM EST 10/19/2024 6:39 AM EST Fuad Winter MD POINT OF CARE TEST ORDERABLES Performing Organization Address [facility]/ZIP Co de Phone Number [facility] See Below * (ABNORMAL) POCT Glucose, Fingerstick (10/19/2024 5:25 AM EST) [facility] POC Glucose 169(H) 65 - 99 mg/dL 10/19/2024 5:29 AM EST Blood specimen / Unknown 10/19/2024 5:25 AM EST 10/19/2024 5:29 AM EST Fuad Winter MD POINT OF CARE TEST ORDERABLES Performing Organization Address [facility] [employer] Phone Number [facility] See Below * (ABNORMAL) High Sensitivity Troponin T (10/19/2024 5:15 AM EST) [facility] High Sensitivity Troponin T 4,239(HH) <23 ng/L 10/19/2024 7:11 AM [facility] Comment:Recurring Critical R esult. Previously phoned. Delta (Change) 2,409(H) <3 10/19/2024 7:11 AM [facility] Comment:Increased Blood (Plasma/Serum) 10/19/2024 5:15 AM EST 10/19/2024 6:04 AM EST Pushpa Gallegos MD LAB BLOOD ORDERABLES Performing Organization Address [facility]/[place] [address], [place] [address] * (ABNORMAL) BASIC METABOLIC PANEL (10/19/2024 4:15 AM EST) Glucose 143(H) 65 - 99 mg/dL 10/19/2024 5:00 AM [facility] Comment:Fasting: <100 mg/dL, Non-Fasting: <200 mg/dL (ADA 2004) Blood Urea Nitrogen (BUN) 84(H) 8 - 21 mg/dL 10/19/2024 5:00 AM [facility] Creatinine 5.0(H) 0.5 - 1.3 mg/dL 10/19/2024 5:00 AM [facility] eGFR 11(L) >59 10/19/2024 5:00 AM [facility] Comment:CKD-EPI (2020) in mL /min/1.73 sq meters. Sodium 142 136 - 145 mmol/L 10/19/2024 5:00 AM [facility] Potassium 4.3 3.4 - 5.3 mmol/L 10/19/2024 5:00 AM [facility] Chloride 109(H) 98 - 107 mmol/L 10/19/2024 5:00 AM [facility] CO2 14(L) 22 - 33 mmol/L 10/19/2024 5:00 AM [facility] Anion Gap 19(H) 7 - 17 10/19/2024 5:00 AM [facility] Calcium 6.8(LL) 8.7 - 10.5 mg/dL 10/19/2024 5:00 AM [facility] BUN/Creatinine Ratio 17 10.0 - 25.0 Ratio 10/19/2024 5:00 AM [facility] Plasma/Serum 10/19/2024 4:15 AM EST 10/19/2024 4:25 AM EST Fuad Winter MD LAB BLOOD ORD ERABLES [facility] [address] [place] [address], [facility] [address] [place] [address] * (ABNORMAL) POCT Glucose, Fingerstick (10/19/2024 4:14 AM EST) POC Glucose 154(H) 65 - 99 mg/dL 10/19/2024 4:15 AM EST Blood specimen / Unknown 10/19/2024 4:14 AM EST 10/19/2024 4:15 AM EST Fuad Winter MD POINT OF CARE TEST ORDERABLES Performing Organization Address [facility] Phone Number HOSPITAL LAB See Below * (ABNORMAL) POCT Glucose, Fingerstick (10/19/2024 2:45 AM EST) Pathologist [facility] POC Glucose 192(H) 65 - 99 mg/dL 10/19/2024 2:46 AM EST Blood specimen / Unknown 10/19/2024 2:45 AM EST 10/19/2024 2:46 AM EST Fuad Winter MD POINT OF CARE TEST ORDERABLES Performing Organization Address [facility] Phone Number [facility] LAB See Below * Heparin Assay (Anti Xa) (10/19/2024 1:54 AM EST) [facility] Anti Xa 0.25 IU/mL 10/19/2024 2:28 AM EST [facility] Comment: (NOTE) Heparin Thromboembolic/Standard/Full Dose Protocol: [...] LAB BLOOD ORDERAB LES Performing Organization Address [facility] [place] [address], [place] [address] * (ABNORMAL) POCT Glucose, Fingerstick (10/19/2024 1:35 AM EST) POC Glucose 160(H) 65 - 99 mg/dL 10/19/2024 1:36 AM EST Blood specimen / Unknown 10/19/2024 1:35 AM EST 10/19/2024 1:36 AM EST Fuad Winter MD POINT OF CARE TEST ORDERABLES Performing Organization Address City/[facility] Co de Phone Number HOSPITAL LAB See Below * (ABNORMAL) Hemoglobin A1C with Estimated Average Glucose (10/19/2024 1:20 AM EST) Hemoglobin A1C 8.7(H) <5.7 % 10/19/2024 12:02 PM [facility] Comment: A1c% ? Interpretation 5.7 - 6.0 ?Increase risk of diabetes 6.1 - 6.4 ?Higher risk of diabetes > or = 6.5 ?? Consistent with diabetes Diabetes Care, 33(Supp 1):S1-S61, 2010 Estimated Average Glucose 203 mg/dL 10/19/2024 12:02 PM [facility] Blood specimen / Unknown 10/19/2024 1:20 AM EST 10/19/2024 2:17 AM EST Pushpa Gallegos MD LAB BLOOD ORDERABLES Performing Organization Address [facility]/[place] [address], [place] [address] * Phosphorus (Routine) (10/19/2024 1:20 AM EST) Phosphorus 4.2 2.7 - 4.5 mg/dL 10/19/2024 2:39 AM [facility] Blood (Plasma/Serum) 10/19/2024 1:20 AM EST 10/19/2024 2:17 AM EST Pushpa Gallegos MD LAB BLOOD ORDERABLES Performing Organization Address City/[facility]/[place] [address], [place] [address] * Magnesium (Routine) (10/19/2024 1:20 AM EST) Magnesium 1.7 1.6 - 2.7 mg/dL 10/19/2024 2:39 AM [facility] Blood (Plasma/Serum) 10/19/2024 1:20 AM EST 10/19/2024 2:17 AM EST Pushpa Gallegos MD LAB BLOOD ORDERABLES Performing Organization Address [facility]/[place] [address], [place] [address] * (ABNORMAL) High Sensitivity Troponin T (Once) (10/19/2024 1:20 AM EST) [facility] High Sensitivity Troponin T 4,171(HH) <23 ng/L 10/19/2024 2:39 AM [facility] Comment:Recurring Critical R esult. Previously phoned. Delta (Change) 2,341(H) <3 10/19/2024 2:39 AM [facility] Comment:Increased Blood (Plasma/Serum) 10/19/2024 1:20 AM EST 10/19/2024 2:17 AM EST Pushpa Gallegos MD LAB BLOOD ORDERABLES Performing Organization Address [facility]/[place] [address], [place] [address] * (ABNORMAL) Complete Blood Count, WITHOUT Differential (routine) (10/19/2024 1:20 AM EST) [facility] White Blood Cell Count 15.9(H) 4.0 - 11.0 Thou/uL 10/19/2024 2:31 AM [facility] Platelet Count 263 150 - 450 Thou/uL 10/19/2024 2:31 AM [facility] Hemoglobin 8.5(L) 13.0 - 17.7 g/dL 10/19/2024 2:31 AM [facility] Hematocrit 27.0(L) 39.0 - 54.0 % 10/19/2024 2:31 AM [facility] Red Blood Cell Count 2.78(L) 4.50 - 6.20 Mil/uL 10/19/2024 2:31 AM [facility] MCV 97 80 - 100 fL 10/19/2024 2:31 AM [facility] Comment:Significant change i n values noted, consider specimen integrity. If results are not expected, correlate clinically and re-collect sample if indicated. MCH 30.6 27.0 - 31.0 pg 10/19/2024 2:31 AM EST [facility] MCHC 31.5 30.0 - 36.0 g/dL 10/19/2024 2:31 AM EST [facility] RDW 16.2(H) 11.5 - 14.5 % 10/19/2024 2:31 AM EST [facility] MPV 11.5 7.5 - 12.5 fL 10/19/2024 2:31 AM EST [facility] Blood Blood specimen / Unknown 10/19/2024 1:20 AM EST 10/19/2024 2:17 AM EST Pushpa Gallegos MD [place] [address], [place] [address] * (ABNORMAL) POCT Glucose, Fingerstick (10/19/2024 12:16 AM EST) POC Glucose 106(H) 65 - 99 mg/dL 10/19/2024 12:17 AM EST Blood specimen / Unknown 10/19/2024 12:16 AM EST 10/19/2024 12:17 AM EST Fuad Winter MD POINT OF CARE TEST ORDERABLES HOSPITAL LAB See Below * ECG 12 lead (10/19/2024 12:02 AM EST) Systolic BP 128 mmHg EKG [facility] Diastolic BP 67 mmHg EKG [facility] Ventricular rate 86 BPM EKG [facility] Atrial rate 86 BPM EKG [facility] P-R interval 162 ms EKG [facility] QRS duration 78 ms EKG [facility] Q-T interval 372 ms EKG [facility] QTC calculation (Bazett) 445 ms EKG [facility] P axis 42 degrees EKG [facility] R axis 60 degrees EKG [facility] T axis 224 degrees EKG [facility] 10/19/2024 12:0 2 AM EST Narrative EKG [facility] - 10/19/2024 5:46 AM EST Normal sinus rhythm Early Transition Nonspecific ST and T wave abnormality Abnormal ECG Confirmed by MD Wade John ([id number]) on 10/19/2024 5:46:29 AM Procedure Note Raciel Wade MD - 10/19/2024 Normal sinus rhythm Early Transition Nonspecific ST and T wave abnormality Abnormal ECG Confirmed by MD Wade John ([id number]) on 10/19/2024 5:46:29 AM Fuad Winter MD ECG ORDERABLE S Performing Organization Address City/[facility]/ZIP Co de Phone Number [facility] * (ABNORMAL) POCT Glucose, Fingerstick (10/18/2024 11:22 PM EST) POC Glucose 117(H) 65 - 99 mg/dL 10/18/2024 11:23 PM EST Blood specimen / Unknown 10/18/2024 11:22 PM EST 10/18/2024 11:23 PM EST Fuad Winter MD POINT OF CARE TEST ORDERABLES Performing Organization Address City/[facility]/ZIP Co de Phone Number HOSPITAL LAB See Below * (ABNORMAL) BASIC METABOLIC PANEL (10/18/2024 11:11 PM EST) Glucose 103(H) 65 - 99 mg/dL 10/19/2024 12:51 AM [facility] Comment:Fasting: <100 mg/dL, Non-Fasting: <200 mg/dL (ADA 2005) Blood Urea Nitrogen (BUN) 88(H) 8 - 21 mg/dL 10/19/2024 12:51 AM [facility] Creatinine 5.0(H) 0.5 - 1.3 mg/dL 10/19/2024 12:51 AM [facility] eGFR 11(L) >59 10/19/2024 12:51 AM [facility] Comment:CKD-EPI (2020) in mL /min/1.73 sq meters. Sodium 143 136 - 145 mmol/L 10/19/2024 12:51 AM [facility] Potassium 4.4 3.4 - 5.3 mmol/L 10/19/2024 12:51 AM [facility] Chloride 110(H) 98 - 107 mmol/L 10/19/2024 12:51 AM [facility] CO2 13(L) 22 - 33 mmol/L 10/19/2024 12:51 AM [facility] Anion Gap 20(H) 7 - 17 10/19/2024 12:51 AM [facility] Calcium 7.0(L) 8.7 - 10.5 mg/dL 10/19/2024 12:51 AM [facility] BUN/Creatinine Ratio 18 10.0 - 25.0 Ratio 10/19/2024 12:51 AM [facility] Plasma/Serum 10/18/2024 11:1 1 PM EST 10/18/2024 11:48 PM EST Fuad Winter MD [place] [address], [place] [address] * (ABNORMAL) Blood Gas, Venous (10/18/2024 11:11 PM EST) Venous Blood PH 7.35 7.33 - 7.43 10/18/2024 11:50 PM [facility] Venous pCO2 27(L) 35 - 50 mmHG 10/18/2024 11:50 PM [facility] Venous pO2 185(H) 0 - 60 mmHG 10/18/2024 11:50 PM [facility] Venous Total CO2 15(L) 23 - 29 mmol/L 10/18/2024 11:50 PM [facility] Respiratory Info VM 50% 10/18/19 5:04 PM EST Base Deficiency 9.7 mmol/L 11:50 PM [facility] Comment:Reference Range: Neg ative 2 to Positive 3 Blood Blood specimen / Unknown 10/18/2024 11:11 PM EST 10/18/2024 11:45 PM EST Pushpa Gallegos MD [place] [address], [address] [address] * (ABNORMAL) BASIC METABOLIC PANEL (10/18/2024 10:15 PM EST) Glucose 113(H) 65 - 99 mg/dL 10/18/2024 10:59 PM [facility] Comment:Fasting: <100 mg/dL, Non-Fasting: <200 mg/dL (ADA 2004) Blood Urea Nitrogen (BUN) 91(H) 8 - 21 mg/dL 10/18/2024 10:59 PM [facility] Creatinine 5.2(H) 0.5 - 1.3 mg/dL 10/18/2024 10:59 PM [facility] eGFR 11(L) >59 10/18/2024 10:59 PM [facility] Comment:CKD-EPI (2020) in mL /min/1.73 sq meters. Sodium 145 136 - 145 mmol/L 10/18/2024 10:59 PM [facility] Potassium 4.2 3.4 - 5.3 mmol/L 10/18/2024 10:59 PM [facility] Chloride 111(H) 98 - 107 mmol/L 10/18/2024 10:59 PM [facility] CO2 14(L) 22 - 33 mmol/L 10/18/2024 10:59 PM [facility] Anion Gap 20(H) 7 - 17 10/18/2024 10:59 PM [facility] Calcium 7.3(L) 8.7 - 10.5 mg/dL 10/18/2024 10:59 PM [facility] BUN/Creatinine Ratio 18 10.0 - 25.0 Ratio 10/18/2024 10:59 PM [facility] Plasma/Serum 10/18/2024 10:1 5 PM EST 10/18/2024 10:21 PM EST Fuad Winter MD LAB BLOOD ORD ERABLES [address] [address], [place] [address] * Lactic Acid, Plasma (Routine) (10/18/2024 10:13 PM EST) Pathologist [facility] Lactic Acid 1.2 0.5 - 1.9 mmol/L 10/18/2024 10:56 PM EST [facility] Blood Plasma specimen / Unknown 10/18/2024 10:13 PM EST 10/18/2024 10:21 PM EST Pushpa Gallegos MD [place] [address], [place] [address] * (ABNORMAL) POCT Glucose, Fingerstick (10/18/2024 10:06 PM EST) Pathologist [facility] POC Glucose 123(H) 65 - 99 mg/dL [...] OF CARE TEST ORDERABLES Performing Organization Address [facility] Phone Number [facility] LAB See Below * (ABNORMAL) POCT Glucose, Fingerstick (10/18/2024 8:16 PM EST) POC Glucose 168(H) 65 - 99 mg/dL 10/18/2024 8:17 PM EST Blood specimen / Unknown 10/18/2024 8:16 PM EST 10/18/2024 8:17 PM EST Fuad Winter MD POINT OF CARE TEST ORDERABLES Performing Organization Address [facility] [employer] [place]t Phone Number [facility] LAB See Below * (ABNORMAL) Blood Gas, Venous (10/18/2024 7:14 PM EST) Venous Blood PH 7.31(L) 7.33 - 7.43 10/18/2024 7:25 PM EST [facility] Venous pCO2 32(L) 35 - 50 mmHG 10/18/2024 7:25 PM EST [facility] Venous pO2 182(H) 0 - 60 mmHG 10/18/2024 7:25 PM EST [facility] Venous Total CO2 16(L) 23 - 29 mmol/L 10/18/2024 7:25 PM EST [facility] Respiratory Info VM 50% 10/18/19 5:04 PM EST Base Deficiency 9.7 mmol/L 7:25 PM [facility] Comment:Reference Range: Neg ative 2 to Positive 3 Blood Blood specimen / Unknown 10/18/2024 7:14 PM EST 10/18/2024 7:21 PM EST Pushpa Gallegos MD [place] [address], [place] [address] * (ABNORMAL) Basic Metabolic Panel (10/18/2024 7:14 PM EST) Glucose 154(H) 65 - 99 mg/dL 10/18/2024 7:55 PM [facility] Comment:Fasting: <100 mg/dL, Non-Fasting: <200 mg/dL (ADA 2004) Blood Urea Nitrogen (BUN) 87(H) 8 - 21 mg/dL 10/18/2024 7:55 PM [facility] Creatinine 5.1(H) 0.5 - 1.3 mg/dL 10/18/2024 7:55 PM [facility] eGFR 11(L) >59 10/18/2024 7:55 PM [facility] Comment:CKD-EPI (2020) in mL /min/1.73 sq meters. Sodium 144 136 - 145 mmol/L 10/18/2024 7:55 PM [facility] Potassium 4.7 3.4 - 5.3 mmol/L 10/18/2024 7:55 PM [facility] Chloride 110(H) 98 - 107 mmol/L 10/18/2024 7:55 PM [facility] CO2 14(L) 22 - 33 mmol/L 10/18/2024 7:55 PM [facility] Anion Gap 20(H) 7 - 17 10/18/2024 7:55 PM [facility] Calcium 7.0(L) 8.7 - 10.5 mg/dL 10/18/2024 7:55 PM [facility] BUN/Creatinine Ratio 17 10.0 - 25.0 Ratio 10/18/2024 7:55 PM [facility] Blood (Plasma/Serum) 10/18/2024 7:14 PM EST 10/18/2024 7:22 PM EST Fuad Winter MD LAB BLOOD ORD ERABLES [address] [address], [address] [address] * (ABNORMAL) POCT Glucose, Fingerstick (10/18/2024 7:13 PM EST) POC Glucose 166(H) 65 - 99 mg/dL 10/18/2024 7:15 PM EST Blood specimen / Unknown 10/18/2024 7:13 PM EST 10/18/2024 7:15 PM EST Fuad Winter MD POINT OF CARE TEST ORDERABLES Performing Organization Address [facility] Co de Phone Number HOSPITAL LAB See [...] Sample left with bedside RN. ACCESS: 6 [place]ian Dhzc-H-[id number] closed needle/catheter system ?? REQUESTING PRACTITIONER: Cheryl [...] adjacent organs or vascular structures. A 6 [place] Cbun-E-Xkyaraqs closed needle/catheter system was utilized for access. [...] adjacent organs or vascular structures. A 6 [place] Cgjc-A-Gmiaaypx closed needle/catheter system was utilized for access. 550 mL of clear devorah fluid was aspirated before drainage ceased. The catheter was removed and a sterile dressing applied. The patient tolerated the procedure well without evidence of complications. ?? Pushpa Gallegos MD [facility] ORDERABLES * (ABNORMAL) POCT Glucose, [...] No fungus isolated 11/02/2024 8:34 AM EST [facility] 10/18/2024 5:55 PM EST 10/18/2024 7:54 PM EST Fuad Winter MD MICROBIOLOGY - GENERAL ORDERABLES Performing Organization Address City/[facility]/ZIP Co de Phone Number [facility] [address] * Body Fluid Culture (aerobic, anaerobic and Gram stain) (10/18/2024 5:55 PM EST) Gram stain suggestive of Few neutrophils Mononuclear cells No organisms seen 10/18/2024 9:52 PM EST [facility] Culture No aerobes and anaerobes isolated after 7 days 10/25/2024 3:19 PM [facility] 10/18/2024 5:55 PM EST 10/18/2024 7:53 PM EST Fuad Winter MD MICROBIOLOGY - GENERAL ORDERABLES Performing Organization Address City/[facility] Co de Phone Number [facility] [address] [place] [address], [address] [address] * Protein, Body Fluid (10/18/2024 5:50 PM EST) Source RIGHT PLEURAL EFFUSION 10/18/2024 6:49 PM EST [facility] Protein, Body Fluid 2.2 g/dL 10/18/2024 7:15 PM [facility] Comment:The reference interv al(s) and other method performance specifications are unavailable for this body fluid. Comparison of this result with the concentration in the blood, serum, or plasma is recommended. 10/18/2024 5:50 PM EST 10/18/2024 6:49 PM EST Fuad Winter MD BODY FLUIDS A ND STOOLS ORDERABLES Performing Organization Address [facility]/[place] [address], [place] [address] * PH, BODY FLUID (10/18/2024 5:50 PM EST) Source RIGHT PLEURAL EFFUSION 10/18/2024 6:49 PM EST [facility] pH, Body Fluid 7.34 10/18/2024 7:14 PM EST [facility] 10/18/2024 5:50 PM EST 10/18/2024 6:49 PM EST Fuad Winter MD BODY FLUIDS A ND STOOLS ORDERABLES Performing Organization Address [facility] [place] [address], [place] [address] * Glucose, Body Fluid (10/18/2024 5:50 PM EST) Source RIGHT PLEURAL EFFUSION 10/18/2024 6:49 PM EST [facility] Glucose, Body Fluid 151 mg/dL 10/18/2024 7:15 PM EST [facility] Comment:The reference interv al(s) and other method performance specifications are unavailable for this body fluid. Comparison of this result with the concentration in the blood, serum, or plasma is recommended. 10/18/2024 5:50 PM EST 10/18/2024 6:49 PM EST Fuad Winter MD BODY FLUIDS A ND STOOLS ORDERABLES Performing Organization Address [facility]/[place] [address], [place] [address] * Cell Count, Reflex Differential, Body Fluid (10/18/2024 5:50 PM EST) Appearance, Body Fluid Cloudy 10/18/2024 8:25 PM EST [facility] Color [place] 10/18/2024 8:25 PM [facility] Nucleated Cells, Fluid 435 /CUMM 10/18/2024 8:24 PM [facility] RBC, Fluid 11,000 /CUMM 10/18/2024 8:24 PM [facility] Neutrophil, Body Fluid 3 % 10/18/2024 8:25 PM [facility] Lymphoctye, Body Fluid 27 % 10/18/2024 8:25 PM [facility] Monocyte, Body Fluid 21 % 10/18/2024 8:25 PM [facility] Histiocyte, Body Fluid 46 % 10/18/2024 8:25 PM [facility] Mesothelial, Body Fluid 3 % 10/18/2024 8:25 PM [facility] Smear Comment, Body Fluid The reference interval and other method performance specifications are unavailable for this body fluid. Comparison of the result with concentration in the blood, serum, or plasma is recommended 10/18/2024 8:25 PM [facility] 10/18/2024 5:50 PM EST 10/18/2024 6:49 PM EST Fuad Winter MD BODY FLUIDS A ND STOOLS ORDERABLES Performing Organization Address City/State/[place] [address], [place] [address] * Culture - Pleural Fluid (aerobic, anaerobic and Gram stain) (10/18/2024 5:40 PM EST) Special Requests Limited quantity of fluid received, results may be impacted. 10/19/2024 9:03 AM [facility] Gram stain suggestive of Few neutrophils Mononuclear cells No organisms seen 10/18/2024 9:59 PM [facility] Culture No aerobes and anaerobes isolated after 7 days 10/25/2024 3:19 PM [facility] Microbiology Specimen from pleura obtained by thoracentesis / Unknown 10/18/2024 5:40 PM EST 10/18/2024 7:48 PM EST Pushpa Gallegos MD MICROBIOLOGY - GENER AL ORDERABLES [facility] [address] [place] [address], [place] [address] * Protein - Pleural Fluid (10/18/2024 5:39 PM EST) Source PLEURAL 10/18/2024 5:40 PM EST Protein, Body Fluid 2.2 g/dL 10/18/2024 7:27 PM EST [facility] Comment:The reference interv al(s) and other method performance specifications are unavailable for this body fluid. Comparison of this result with the concentration in the blood, serum, or plasma is recommended. Specimen from pleura obtained by thoracentesis / Unknown 10/18/2024 5:39 PM EST 10/18/2024 6:57 PM EST Pushpa Gallegos MD BODY FLUIDS AND STOO LS ORDERABLES Performing Organization Address [facility]/[place] [address], [place] [address] * pH - Pleural Fluid (not avail at [facility]) (10/18/2024 5:39 PM EST) Source PLEURAL 10/18/2024 5:40 PM EST pH, Body Fluid 7.33 10/18/2024 7:15 PM EST [facility] Body Fluid Specimen from pleura obtained by thoracentesis / Unknown 10/18/2024 5:39 PM EST 10/18/2024 6:57 PM EST Pushpa Gallegos MD BODY FLUIDS AND STOO LS ORDERABLES Performing Organization Address [facility]/[place] [address], [place] [address] * LDH - Pleural Fluid (10/18/2024 5:39 PM EST) Source PLEURAL 10/18/2024 5:40 PM EST Lactate Dehydrogenase, Body Fluid 143 U/L 10/18/2024 7:27 PM EST [facility] Comment:The reference interv al(s) and other method performance specifications are unavailable for this body fluid. Comparison of this result with the concentration in the blood, serum, or plasma is recommended. Body Fluid Specimen from pleura obtained by thoracentesis / Unknown 10/18/2024 5:39 PM EST 10/18/2024 6:57 PM EST Pushpa Gallegos MD BODY FLUIDS AND STOO LS ORDERABLES Performing Organization Address [facility]/[place] [address], [place] [address] * Glucose - Pleural Fluid (10/18/2024 5:39 PM EST) Source PLEURAL 10/18/2024 5:40 PM EST Glucose, Body Fluid 146 mg/dL 10/18/2024 7:27 PM [facility] Comment:The reference interv al(s) and other method performance specifications are unavailable for this body fluid. Comparison of this result with the concentration in the blood, serum, or plasma is recommended. Specimen from pleura obtained by thoracentesis / Unknown 10/18/2024 5:39 PM EST 10/18/2024 6:57 PM EST Pushpa Gallegos MD BODY FLUIDS AND STOO LS ORDERABLES Performing Organization Address [facility]/[place] [address], [place] [address] * Cell Count, Reflex Differential, Body Fluid (10/18/2024 5:39 PM EST) Appearance, Body Fluid Cloudy 10/18/2024 8:22 PM EST [facility] Color [place] 10/18/2024 8:22 PM [facility] Nucleated Cells, Fluid 721 /CUMM 10/18/2024 8:22 PM [facility] RBC, Fluid 10,000 /CUMM 10/18/2024 8:22 PM [facility] Neutrophil, Body Fluid 0 % 10/18/2024 8:22 PM EST [facility] Lymphoctye, Body Fluid 57 % 10/18/2024 8:22 PM [facility] Monocyte, Body Fluid 15 % 10/18/2024 8:22 PM [facility] Histiocyte, Body Fluid 27 % 10/18/2024 8:22 PM [facility] Basophil, Body Fluid 1 % 10/18/2024 8:22 PM [facility] Smear Comment, Body Fluid The reference interval and other method performance specifications are unavailable for this body fluid. Comparison of the result with concentration in the blood, serum, or plasma is recommended 10/18/2024 8:22 PM [facility] Specimen from pleura obtained by thoracentesis / Unknown 10/18/2024 5:39 PM EST 10/18/2024 6:57 PM EST Pushpa Gallegos MD BODY FLUIDS [place] [address], [place] [address] * (ABNORMAL) POCT Glucose, Fingerstick (10/18/2024 5:04 PM EST) POC Glucose 119(H) 65 - 99 mg/dL 10/18/2024 6:07 PM EST Blood specimen / Unknown 10/18/2024 5:04 PM EST 10/18/2024 6:07 PM EST Fuad Winter MD POINT OF CARE TEST ORDERABLES HOSPITAL LAB See Below * (ABNORMAL) B-Hydroxybutyrate (10/18/2024 5:04 PM EST) B-Hydroxybutyrate 0.45(H) <0.28 mmol/L 10/18/2024 6:44 PM [facility] Comment: In the presence of uncontrolled [...] LAB BLOOD ORD ERABLES Performing Organization Address [facility]/[place] [address], [place] [address] * (ABNORMAL) Blood Gas, Venous (10/18/2024 5:04 PM EST) Venous Blood PH 7.32(L) 7.33 - 7.43 10/18/2024 5:27 PM [facility] Venous pCO2 31(L) 35 - 50 mmHG 10/18/2024 5:27 PM [facility] Venous pO2 131(H) 0 - 60 mmHG 10/18/2024 5:27 PM [facility] Venous Total CO2 17(L) 23 - 29 mmol/L 10/18/2024 5:27 PM [facility] Respiratory Info NASAL 6 L/MIN 10/18/2024 3:04 PM EST Base Deficiency 9.2 mmol/L 5:27 PM [facility] Comment:Reference Range: Neg ative 2 to Positive 3 Blood Blood specimen / Unknown 10/18/2024 5:04 PM EST 10/18/2024 5:13 PM EST Pushpa Gallegos MD LAB BLOOD ORDERABLES Performing Organization Address [facility]/[place] [address], [place] [address] * Heparin Assay (Anti Xa) (10/18/2024 5:04 PM EST) Anti Xa 0.23 IU/mL 10/18/2024 6:17 PM [facility] Comment: (NOTE) Heparin Thromboembolic/Standard/Full Dose Protocol: [...] MD LAB BLOOD ORDERABLES Performing Organization Address City/[facility]/[place] [address], [place] [address] * (ABNORMAL) Basic Metabolic Panel (10/18/2024 5:04 PM EST) Glucose 112(H) 65 - 99 mg/dL 10/18/2024 6:44 PM [facility] Comment:Fasting: <100 mg/dL, Non-Fasting: <200 mg/dL (ADA 2004) Blood Urea Nitrogen (BUN) 85(H) 8 - 21 mg/dL 10/18/2024 6:44 PM [facility] Creatinine 5.2(H) 0.5 - 1.3 mg/dL 10/18/2024 6:44 PM [facility] eGFR 11(L) >59 10/18/2024 6:44 PM [facility] Comment:CKD-EPI (2020) in mL /min/1.73 sq meters. Sodium 145 136 - 145 mmol/L 10/18/2024 6:44 PM [facility] Potassium 4.4 3.4 - 5.3 mmol/L 10/18/2024 6:44 PM [facility] Chloride 110(H) 98 - 107 mmol/L 10/18/2024 6:44 PM [facility] CO2 15(L) 22 - 33 mmol/L 10/18/2024 6:44 PM [facility] Anion Gap 20(H) 7 - 17 10/18/2024 6:44 PM [facility] Calcium 7.1(L) 8.7 - 10.5 mg/dL 10/18/2024 6:44 PM [facility] BUN/Creatinine Ratio 16 10.0 - 25.0 Ratio 10/18/2024 6:44 PM [facility] Blood (Plasma/Serum) 10/18/2024 5:04 PM EST 10/18/2024 6:04 PM EST Fuad Winter MD [place] [address], [facility] [address] [facility] [address] * XR Chest 1 view-Portable (10/18/2024 4:14 PM EST) Anatomical Region Laterality Modality Chest Computed Radiogr aphy 10/18/2024 3:54 PM EST Impressions 10/19/2024 2:34 PM EST 1. ??Interval worsening of now moderate pulmonary edema. Superimposed infectious/inflammatory process cannot be entirely excluded. 2. ??Trace bilateral pleural effusions unchanged. Interpreted by: ??Mitchell Ascencio DO Rolls Baker I personally reviewed the images and the [...] effusions unchanged. Interpreted by: Mitchell Ascencio DO Rolls Baker I personally reviewed the images and the [...] OF CARE TEST ORDERABLES Performing Organization Address [facility] LAB See Below * (ABNORMAL) POCT Glucose, Fingerstick (10/18/2024 2:44 PM EST) POC Glucose 105(H) 65 - 99 mg/dL 10/18/2024 2:49 PM EST Blood specimen / Unknown 10/18/2024 2:44 PM EST 10/18/2024 2:48 PM EST Fuad Winter MD POINT OF CARE TEST ORDERABLES Performing Organization Address [facility] Number [facility] See Below * POCT Glucose, Fingerstick (10/18/2024 1:44 PM EST) POC Glucose 92 65 - 99 mg/dL 10/18/2024 1:45 PM EST Blood specimen / Unknown 10/18/2024 1:44 PM EST 10/18/2024 1:45 PM EST Fuad Winter MD POINT OF CARE TEST ORDERABLES Performing Organization Address [facility] Number [facility] See Below * (ABNORMAL) POCT Glucose, Fingerstick (10/18/2024 1:24 PM EST) POC Glucose 102(H) 65 - 99 mg/dL 10/18/2024 1:44 PM EST Blood specimen / Unknown 10/18/2024 1:24 PM EST 10/18/2024 1:44 PM EST Fuad Winter MD POINT OF CARE TEST ORDERABLES Performing Organization Address [facility]/ZIP Co de Phone Number HOSPITAL LAB See Below * (ABNORMAL) POCT Glucose, Fingerstick (10/18/2024 12:19 PM EST) Pathologist [facility] POC Glucose 160(H) 65 - 99 mg/dL [...] system. ?Dr. Pushpa Gallegos was notified by Lane text at 12:36 PM. Technical Details Definity [...] 65 - 99 mg/dL 10/18/2024 12:14 PM [facility] Comment:Fasting: <100 mg/dL, Non-Fasting: <200 mg/dL (ADA 2004) Blood Urea Nitrogen (BUN) 84(H) 8 - 21 mg/dL 10/18/2024 12:14 PM [facility] Creatinine 5.0(H) 0.5 - 1.3 mg/dL 10/18/2024 12:14 PM [facility] eGFR 11(L) >59 10/18/2024 12:14 PM [facility] Comment:CKD-EPI (2020) in mL /min/1.73 sq meters. Sodium 145 136 - 145 mmol/L 10/18/2024 12:14 PM [facility] Potassium 4.2 3.4 - 5.3 mmol/L 10/18/2024 12:14 PM [facility] Chloride 111(H) 98 - 107 mmol/L 10/18/2024 12:14 PM [facility] CO2 14(L) 22 - 33 mmol/L 10/18/2024 12:14 PM [facility] Anion Gap 20(H) 7 - 17 10/18/2024 12:14 PM [facility] Calcium 7.1(L) 8.7 - 10.5 mg/dL 10/18/2024 12:14 PM [facility] BUN/Creatinine Ratio 17 10.0 - 25.0 Ratio 10/18/2024 12:14 PM [facility] Blood (Plasma/Serum) 10/18/2024 11:25 AM EST 10/18/2024 11:49 AM EST Fuad Winter MD LAB BLOOD ORD ERABLES Performing Organization Address [facility] Number [facility] [address] [place] [address], [facility] [address] [place] [address] * (ABNORMAL) POCT Glucose, Fingerstick (10/18/2024 11:19 AM EST) POC Glucose 215(H) 65 - 99 mg/dL 10/18/2024 11:22 AM EST Blood specimen / Unknown 10/18/2024 11:19 AM EST 10/18/2024 11:22 AM EST Fuad Winter MD POINT OF CARE TEST ORDERABLES Performing Organization Address [facility] Phone Number [facility] LAB See Below * (ABNORMAL) POCT Glucose, Fingerstick (10/18/2024 10:16 AM EST) POC Glucose 289(H) 65 - 99 mg/dL 10/18/2024 10:17 AM EST Blood specimen / Unknown 10/18/2024 10:16 AM EST 10/18/2024 10:17 AM EST Fuad Winter MD POINT OF CARE TEST ORDERABLES Performing Organization Address [facility] Phone Number [facility] LAB See Below * Heparin Assay (Anti Xa) (10/18/2024 9:57 AM EST) Anti Xa 0.47 IU/mL 10/18/2024 10:37 AM EST [facility] Comment: (NOTE) Heparin Thromboembolic/Standard/Full Dose Protocol: [...] MD LAB BLOOD ORDERABLES Performing Organization Address [facility]/State/[place] Co de Phone Number [facility] [address] [place] [address], [facility] [address] [place] [address] * (ABNORMAL) Basic Metabolic Panel (10/18/2024 9:57 AM EST) Glucose 304(H) 65 - 99 mg/dL 10/18/2024 10:35 AM [facility] Comment:Fasting: <100 mg/dL, Non-Fasting: <200 mg/dL (ADA 2004) Blood Urea Nitrogen (BUN) 87(H) 8 - 21 mg/dL 10/18/2024 10:35 AM [facility] Creatinine 5.0(H) 0.5 - 1.3 mg/dL 10/18/2024 10:35 AM [facility] eGFR 11(L) >59 10/18/2024 10:35 AM [facility] Comment:CKD-EPI (2020) in mL /min/1.73 sq meters. Sodium 142 136 - 145 mmol/L 10/18/2024 10:35 AM [facility] Potassium 4.3 3.4 - 5.3 mmol/L 10/18/2024 10:35 AM [facility] Chloride 108(H) 98 - 107 mmol/L 10/18/2024 10:35 AM [facility] CO2 13(L) 22 - 33 mmol/L 10/18/2024 10:35 AM [facility] Anion Gap 21(H) 7 - 17 10/18/2024 10:35 AM [facility] Calcium 7.2(L) 8.7 - 10.5 mg/dL 10/18/2024 10:35 AM [facility] BUN/Creatinine Ratio 17 10.0 - 25.0 Ratio 10/18/2024 10:35 AM [facility] Blood (Plasma/Serum) 10/18/2024 9:57 AM EST 10/18/2024 10:10 AM EST Fuad Winter MD [place] [address], [address] [address] * (ABNORMAL) POCT Glucose, Fingerstick (10/18/2024 9:39 AM EST) POC Glucose 324(H) 65 - 99 mg/dL 10/18/2024 9:40 AM EST Blood specimen / Unknown 10/18/2024 9:39 AM EST 10/18/2024 9:40 AM EST Fuad Winter MD POINT OF CARE TEST ORDERABLES Performing Organization Address [facility] LAB See Below * (ABNORMAL) POCT Glucose, Fingerstick (10/18/2024 8:34 AM EST) POC Glucose 443(H) 65 - 99 mg/dL 10/18/2024 8:35 AM EST Blood specimen / Unknown 10/18/2024 8:34 AM EST 10/18/2024 8:35 AM EST Fuad Winter MD POINT OF CARE TEST ORDERABLES Performing Organization Address [facility] LAB See Below * (ABNORMAL) POCT Glucose, Fingerstick (10/18/2024 7:31 AM EST) POC Glucose 461(H) 65 - 99 mg/dL 10/18/2024 7:33 AM EST Blood specimen / Unknown 10/18/2024 7:31 AM EST 10/18/2024 7:33 AM EST Fuad Winter MD POINT OF CARE TEST ORDERABLES Performing Organization Address [facility] LAB See Below * (ABNORMAL) BASIC METABOLIC PANEL (10/18/2024 7:25 AM EST) Glucose 476(HH) 65 - 99 mg/dL 10/18/2024 8:03 AM [facility] Comment:Fasting: <100 mg/dL, Non-Fasting: <200 mg/dL (ADA 2005) Blood Urea Nitrogen (BUN) 84(H) 8 - 21 mg/dL 10/18/2024 8:03 AM [facility] Creatinine 5.0(H) 0.5 - 1.3 mg/dL 10/18/2024 8:03 AM [facility] eGFR 11(L) >59 10/18/2024 8:03 AM [facility] Comment:CKD-EPI (2020) in mL /min/1.73 sq meters. Sodium 139 136 - 145 mmol/L 10/18/2024 8:03 AM [facility] Potassium 4.5 3.4 - 5.3 mmol/L 10/18/2024 8:03 AM [facility] Chloride 106 98 - 107 mmol/L 10/18/2024 8:03 AM [facility] CO2 12(LL) 22 - 33 mmol/L 10/18/2024 8:03 AM [facility] Anion Gap 21(H) 7 - 17 10/18/2024 8:03 AM [facility] Calcium 6.6(LL) 8.7 - 10.5 mg/dL 10/18/2024 8:03 AM [facility] BUN/Creatinine Ratio 17 10.0 - 25.0 Ratio 10/18/2024 8:03 AM [facility] Plasma/Serum 10/18/2024 7:25 AM EST 10/18/2024 7:33 AM EST Fuad Winter MD [place] [address], [place] [address] * (ABNORMAL) Troponin T, High Sensitivity - STAT and in 1 hour (10/18/2024 7:25 AM EST) High Sensitivity Troponin T 2,403(HH) <23 ng/L 10/18/2024 8:03 AM [facility] Comment:Recurring Critical R esult. Previously phoned. Delta (Change) 573(H) <3 10/18/2024 8:03 AM [facility] Comment:Increased Blood (Plasma/Serum) 10/18/2024 7:25 AM EST 10/18/2024 7:33 AM EST Fuad Winter MD [place] [address], [address] [place] [address] * (ABNORMAL) POCT Glucose, Fingerstick (10/18/2024 6:28 [...] atelectasis, respectively. Interpreted by: ??Prem Coffman MD Rolls Baker I personally reviewed the images and the [...] atelectasis, respectively. Interpreted by: Prem Coffman MD Rolls Baker I personally reviewed the images and the resident's preliminary report and AGREE with the report as it is now presented ([id number]). Fuad Winter MD IMG DIAGNOSTI C IMAGING ORDERABLES * ECG 12 lead (10/18/2024 5:28 AM EST) Ventricular rate 89 BPM EKG [facility] QRS duration 88 ms EKG [facility] (Bazett) 446 ms EKG [facility] R axis 36 degrees EKG [facility] T axis 184 degrees EKG [facility] 10/18/2024 5:28 AM EST Narrative G [facility] - 10/18/2024 9:43 AM EST Normal sinus rhythm ST & T wave abnormality, consider lateral ischemia Abnormal ECG No previous ECGs available Confirmed by MD Ortiz Daniel ([id number]) on 10/18/2024 9:42:59 AM Procedure Note Alonso Ortiz MD - 10/18/[address] & T wave abnormality, consider lateral ischemia Abnormal ECG No previous ECGs available Confirmed by MD Ortiz Daniel ([id number]) on 10/18/2024 9:42:59 AM Fuad Winter MD ECG ORDERABLE [facility] * (ABNORMAL) POCT Glucose, Fingerstick (10/18/2024 5:24 AM EST) [facility] POC Glucose >500(H) 65 - 99 mg/dL 10/18/2024 5:25 AM EST Blood specimen / Unknown 10/18/2024 5:24 AM EST 10/18/2024 5:25 AM EST Fuad Winter MD POINT OF CARE TEST ORDERABLES HOSPITAL LAB See Below * Heparin Assay (Anti-Xa) (10/18/2024 5:16 AM EST) [facility] Anti Xa 0.72 IU/mL 10/18/2024 5:58 AM EST [facility] Comment: (NOTE) Heparin Thromboembolic/Standard/Full Dose Protocol: [...] LAB BLOOD ORD ERABLES Performing Organization Address City/[facility]/[place] [address], [place] [address] * (ABNORMAL) Partial Thromboplastin Time (PTT) (10/18/2024 5:16 AM EST) Anticoagulant IV HEPARIN, UNFRACTIONATED 10/18/2024 5:18 AM EST Partial Thromboplastin Time (PTT) 68(H) 25 - 36 seconds 10/18/2024 5:58 AM EST [facility] Blood Plasma specimen / Unknown 10/18/2024 5:16 AM EST 10/18/2024 5:42 AM EST Fuad Winter MD LAB BLOOD ORD ERABLES Performing Organization Address [facility]/[place] [address], [place] [address] * (ABNORMAL) Protime-INR (10/18/2024 5:16 AM EST) Anticoagulant IV HEPARIN, UNFRACTIONATED 10/18/2024 5:18 AM EST Prothrombin Time (PT) 13.9(H) 10.0 - 13.5 seconds 10/18/2024 5:58 AM [facility] INR 1.2 10/18/2024 5:58 AM [facility] Comment:INR Therapeutic Rang es: Standard dose anticoagulant 2.0 to 3.0, High dose anticoagulant 2.5-3.5. Blood Plasma specimen / Unknown 10/18/2024 5:16 AM EST 10/18/2024 5:42 AM EST Fuad Winter MD LAB BLOOD ORD ERABLES Performing Organization Address City/[facility]/[place] [address], [place] [address] * (ABNORMAL) proBNP, N-terminal (BNP) (10/18/2024 5:16 AM EST) proBNP, N-terminal >70,000(H) <450 pg/mL 10/18/2024 7:21 AM [facility] Blood Plasma specimen / Unknown 10/18/2024 5:16 AM EST 10/18/2024 5:42 AM EST Fuad Winter MD LAB BLOOD ORD ERABLES Performing Organization Address City/[facility]/[place] [address], [place] [address] * (ABNORMAL) B-Hydroxybutyrate (10/18/2024 5:16 AM EST) B-Hydroxybutyrate 3.63(H) <0.28 mmol/L 10/18/2024 6:38 AM [facility] Comment: In the presence of uncontrolled [...] LAB BLOOD ORD ERABLES Performing Organization Address [facility]/[place] [address], [place] [address] * (ABNORMAL) Osmolality (10/18/2024 5:16 AM EST) Osmolality, Serum/Plasma 359(H) 285 - 295 mOsm/Kg 10/18/2024 6:43 AM [facility] Blood (Plasma/Serum) 10/18/2024 5:16 AM EST 10/18/2024 5:42 AM EST Fuad Winter MD LAB BLOOD ORD ERABLES Performing Organization Address [facility] [place] [address], [place] [address] * (ABNORMAL) Blood Gas, Venous (10/18/2024 5:16 AM EST) Venous Blood PH 7.18(LL) 7.33 - 7.43 10/18/2024 5:55 AM [facility] Comment:Test results repeate d. Venous pCO2 27(L) 35 - 50 mmHG 10/18/2024 5:55 AM [facility] Venous pO2 78(H) 0 - 60 mmHG 10/18/2024 5:55 AM [facility] Venous Total CO2 11(L) 23 - 29 mmol/L 10/18/2024 5:55 AM [facility] Respiratory Info NASAL 5 L/MIN 10/18/2024 5:17 AM EST Base Deficiency 17.1 mmol/L 5:55 AM [facility] Comment:Reference Range: Neg ative 2 to Positive 3 Blood Blood specimen / Unknown 10/18/2024 5:16 AM EST 10/18/2024 5:40 AM EST Fuad Winter MD LAB BLOOD ORD ERABLES Performing Organization Address City/[facility]/ZIP Co de Phone Number [place] [address] [place] [address], [facility] [address] [place] [address] * (ABNORMAL) Complete Blood Count, with Differential (10/18/2024 5:16 AM [facility]) White Blood Cell Count 11.5(H) 4.0 - 11.0 Thou/uL 10/18/2024 5:48 AM [facility] Platelet Count 265 150 - 450 Thou/uL 10/18/2024 5:48 AM [facility] Hemoglobin 8.5(L) 13.0 - 17.7 g/dL 10/18/2024 5:48 AM [facility] Hematocrit 27.7(L) 39.0 - 54.0 % 10/18/2024 5:48 AM [facility] Red Blood Cell Count 2.72(L) 4.50 - 6.20 Mil/uL 10/18/2024 5:48 AM [facility] MCV 102(H) 80 - 100 fL 10/18/2024 5:48 AM [facility] MCH 31.3(H) 27.0 - 31.0 pg 10/18/2024 5:48 AM [facility] MCHC 30.7 30.0 - 36.0 g/dL 10/18/2024 5:48 AM [facility] RDW 16.4(H) 11.5 - 14.5 % 10/18/2024 5:48 AM [facility] MPV 11.3 7.5 - 12.5 fL 10/18/2024 5:48 AM [facility] Neutrophils Auto 86.0 % 10/18/19 5:48 AM [facility] Immature Granulocytes 0.4 % 10/18/2024 5:48 AM [facility] Lymphocytes Auto 9.2 % 10/18/19 5:48 AM [facility] Monocytes Auto 4.3 % 10/18/2024 5:48 AM [facility] Eosinophils Auto 0.0 % 10/18/19 5:48 AM [facility] Basophils Auto 0.1 % 10/18/2024 5:48 AM [facility] Abs Neutrophils Auto 9.88(H) 2.00 - 7.50 Thou/uL 10/18/2024 5:48 AM [facility] Abs Immature Granulocytes 0.05 0.00 - 0.10 Thou/uL 10/18/2024 5:48 AM [facility] Abs Lymphocytes Auto 1.06(L) 1.50 - 4.50 Thou/uL 10/18/2024 5:48 AM [facility] Abs Monocytes Auto 0.49 0.20 - 1.50 Thou/uL 10/18/2024 5:48 AM [facility] Abs Eosinophils Auto 0.00 0.00 - 0.70 Thou/uL 10/18/2024 5:48 AM [facility] Abs Basophils Auto 0.01 0.00 - 0.20 Thou/uL 10/18/2024 5:48 AM [facility] Blood Blood specimen / Unknown 10/18/2024 5:16 AM EST 10/18/2024 5:42 AM EST Fuad Winetr MD [place] [address], [place] [address] * (ABNORMAL) Troponin T, High Sensitivity - STAT and in 1 hour (10/18/2024 5:16 AM EST) [facility] High Sensitivity Troponin T 1,830(HH) <23 ng/L 10/18/2024 6:38 AM [facility] Delta (Change) NO PREVIOUS RESULT <3 10/18/2024 6:38 AM [facility] Blood (Plasma/Serum) 10/18/2024 5:16 AM EST 10/18/2024 5:42 AM EST Fuad Winter MD [place] [address], [place] [address] * Magnesium (10/18/2024 5:16 AM EST) [facility] Magnesium 1.7 1.6 - 2.7 mg/dL 10/18/2024 6:38 AM [facility] Blood (Plasma/Serum) 10/18/2024 5:16 AM EST 10/18/2024 5:42 AM EST Fuad Winter MD LAB BLOOD ORD ERABLES [address] [address], [address] [address] * (ABNORMAL) Basic Metabolic Panel (10/18/2024 5:16 AM EST) Glucose 569(HH) 65 - 99 mg/dL 10/18/2024 6:38 AM [facility] Comment:Fasting: <100 mg/dL, Non-Fasting: <200 mg/dL (ADA 2004) Blood Urea Nitrogen (BUN) 83(H) 8 - 21 mg/dL 10/18/2024 6:38 AM [facility] Creatinine 4.9(H) 0.5 - 1.3 mg/dL 10/18/2024 6:38 AM [facility] eGFR 11(L) >59 10/18/2024 6:38 AM [facility] Comment:CKD-EPI (2020) in mL /min/1.73 sq meters. Sodium 140 136 - 145 mmol/L 10/18/2024 6:38 AM [facility] Potassium 4.9 3.4 - 5.3 mmol/L 10/18/2024 6:38 AM [facility] Chloride 104 98 - 107 mmol/L 10/18/2024 6:38 AM [facility] CO2 8(LL) 22 - 33 mmol/L 10/18/2024 6:38 AM [facility] Anion Gap 28(H) 7 - 17 10/18/2024 6:38 AM [facility] Calcium 6.6(LL) 8.7 - 10.5 mg/dL 10/18/2024 6:38 AM [facility] BUN/Creatinine Ratio 17 10.0 - 25.0 Ratio 10/18/2024 6:38 AM [facility] Blood (Plasma/Serum) 10/18/2024 5:16 AM EST 10/18/2024 5:42 AM EST Fuad Winter MD LAB BLOOD ORD ERABLES [facility] [address] [place] [address], [facility] [address] [place] [address] documented in this encounter Visit Diagnoses Not [...] = 50 units/mL, Indication for Anticoagulation: Acute [place] 0739 (Handoff - Provider: Torie Kwan RN - Comment: 15units)1405 (New Bag - Provider: Toire Kwan RN - Comment: 15units)1920 (Handoff - [...] documented as of this encounter Care Teams Senior Paralegal Relationship Specialty Start Date End Date Diaz Akers MD PCP - General Internal Medicine 10/20/24 documented as of this encounter
--- OUTSIDE RECORDS SUMMARY | 2024-11-14 15:42 | XMS_ITS | Encounter Summary ---
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 Service Equipment Mechanic Name Role Phone Diaz Akers MD Primary Care Provider Soledad vailable Reason for Visit * Reason Comments Abnormal Test Result * Auth/Cert Specialty Diagnoses / Procedures Referred By Danielle t Referred To Contact Diagnoses DKA (diabetic ketoacidosis) ([facility]) NSTEMI, DKA, Pneumonia Procedures OTHER ADMINISTRATIVE ADJUSTMENT (INSURANCE) Referral ID Status Reason Start Date Expiration Date Visits Re quested Visits Authorized [id number] 1 1 Encounter Details Date Type Department Care Team (Late st Contact Info) Description 10/18/2024 5:10 AM EST - 11/01/2024 4:42 PM [facility] Hospital Encounter [address] [phone] Fuad Winter MD [address] [place] [address] Branden Boyd MD [address] [id number] Pushpa Gallegos MD [address] [address] Kristopher Hickey MD [address] [place] [address] Irma Tilley MD [address] [address] Jessica Strange MD [address] [place] [id number] Adilia Woo MD [address] [place] [phone] Magdaleno Crowder MD [address] [place] [id number] Neymar Mcfarland MD [address] [place] [phone] Madhav Ryan MD [address] [place] [id number] Thomas Medrano MD [address] [place] [phone] Osmar Valdez MD [address] [place] [id number] NSTEMI (non-ST elevated myocardial infarction) (HCC) (Primary Dx); Diabetic ketoacidosis without coma associated with type 2 diabetes mellitus (HCC) Discharge Disposition: Home with Health Care Services Social History Tobacco Use Types Packs/Day Years Used Date Smoking Tobacco: Never Passive Smoke Exposure: Never Smokeless Tobacco: Never Tobacco Cessation:Counseling Given: Not Answered [facility] Utilities Answer Date Recorded In the past 12 months has [email or web address], gas, oil, or water [employer] threatened to shut off services in your [...] any time in the past 12 m [facility], were you homeless or living in a chcf (including now)? No 10/20/2024 Sex and Gender [...] been on hemodialysis follows with nephrology in [place]), insulin-dependent diabetes, hypertension presented from outside hospital and transferred to [facility] for concerns of NSTEMI and DKA. [...] 1830. On 10/18/2024, he was transferred to [facility] intensive care unit. He received treatment to DKA, acidosis and hyperglycemia improved on intravenous fluid and insulin therapy. Upon admission to [facility] NT-proBNP was found to have 70K [...] titration of his medications through his primary graphic arts technician.. Endocrine service provided recommendations for insulin and he was switched from Januvia to Tradjenta at the time of discharge. Consults: Consults placed: Procedures Inpatient consult to cardiology ([facility] Cardiology) Inpatient consult to cardiology ([facility] Cardiology) Inpatient consult to Endocrinology Inpatient consult to Nutrition Services Procedures: Surgical/Procedural Cases on this Admission Case IDs Date Procedure Surgeon Location Status [id number] 10/31/24 CORONARY ANGIO W/LV Calixto Ureña MD [facility]IL[facility] [employer]Y PRESS HELPER Comp Diagnostic Studies: XR Chest 1 view-Portable [...] effusions unchanged. Interpreted by: Mitchell Ascencio DO Cat And Dog Bather I personally reviewed the images and the [...] Sample left with bedside RN. ACCESS: 6 Samoan Yjkz-A-Amiymyae closed needle/catheter system REQUESTING PRACTITIONER: Cheryl Blue [...] adjacent organs or vascular structures. A 6 Samoan Fybt-O-Wgijwkop closed needle/catheter system was utilized for access. [...] adjacent organs or vascular structures. A 6 Samoan Piqz-B-Ffgczxsf closed needle/catheter system was utilized for access. [...] system. Dr. Pushpa Gallegos was notified by [place] text at 12:36 PM. XR Chest 1 [...] atelectasis, respectively. Interpreted by: Prem Coffman MD Cat And Dog Bather I personally reviewed the images and the [...] system. Dr. Pushpa Gallegos was notified by [facility] at 12:36 PM. Results from last 7 [...] through Care Everywhere. * Angiogram Care After (Jordanian) documented in this encounter Medications at Time [...] 11/01/2024 9:27 AM EST Endocrinology Progress Note COMMERCIAL DRIVER Endocrinology - Medicine Today's Date: 11/01/2024 Admit [...] are interchangable*)- order B-D Debby 4 mm Coolin (15 mL). Humalog KwikPen (U100) (the following are interchangable) - order B-D Debby 4 mm Coolin (15 mL). * Lantus Solostar, Basaglar KwikPen, [...] 47 Diet: Diet Cardiac; Carb Counting 60g/meal 8098-2665 kcal; 2 gm NA (Low Sodium); Low [...] Intake/Output Summary (Last 24 hours) at 11/01/2024 0985 Last data filed at 11/01/2024 0916 Gross [...] intake - dietary recall from the pt and/repairing calibrator, and NPO status. Time spent communicating with other health healthcare facility administrator including the RN Signed Day Casarez Endocrinology [...] level of independence with functional mobility. Current [facility] Basic Mobility Score: 23 Rehab [...] Progressive Mobility Progressive Mobility Level Achieved Ambulation [facility] Basic Mobility Turning from your [...] Climbing 3-5 steps with a railing? 3 [facility] Basic Mobility Score 23 Therapy [...] d/t HTN + DM (neph Dr in [place]), admit as xfer fromOSH with dyspnea (COVID+) [...] Calcitriol daily. Needs to continue follow-up with cnc machine setter on d/c. Sign: Garth Perez DO 11/01/2024 12:58 PM * Ysabel Jones PA-C - 11/01/2024 7:25 AM EST Images from the original note were not included. 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 He was initially admitted to the MICU on insulin drip. Troponin found to be elevated 5609-4444, EKG noted to be sinus with poor R wave progression and nonspecific ST changes. He was initiated on a heparin drip for NSTEMI. Course further complicated by acute HFrEF LVEF 28%, COVID, and ALISA on CKD. [facility] with moderate proximal and mid LAD calcified focal stenosis, severe stenosis of nondominant RCA, recommended for medical management. Plan [facility] 10/31: moderate proximal and mid LAD [...] Case was discussed with cardiology attending Dr. Valnetino who is in agreement with plan of care as above. [facility] Cardiology will continue to follow. [...] 10/31/2024 8:26 PM EST Pt transported to [facility] on monitor. 0 KENDALL Richardson and this [...] 4:29 PM EST Certified Diabetes Care & Candy Cutter Machine Note: Patient meets criteria for evaluation due [...] he is still here on Tuesday this [facility] can give him a reader with [...] from diet unless treating low BG. Given [facility] Diabetes Tool Kit, Thriving with diabetes. Sections of importance in the booklet highlighted and reviewed with pt. 3. Survival Skills Needed & Taught: Insulin Pen Reinforcement: Pt. was able to verbally explain to this [facility] how he would place and prime needle, [...] [phone] Signed: Abbey RODNEY, RN, [facility] 10/31/24 8PM * Garth Perez DO - 10/31/2024 9:51 AM EST Date 10/31/2024 Assessment & Plan 79y/o male PMHx DM, HTN, CKD V (bCR~5 from 05/2023) d/t HTN + DM (neph Dr in [place]), admit as xfer fromOSH with dyspnea (COVID+) [...] original note were not included. 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 He was initially admitted to the MICU on insulin drip. Troponin found to be elevated 8693-8554, EKG noted to be sinus with poor R wave progression and nonspecific ST changes. He was initiated on a heparin drip forNSTEMI. Course further complicated by acute HFrEF LVEF 28%, COVID, and ALISA on CKD. Awaiting [facility] today. Plan NSTEMI NSVT HTN HsT [...] plan of care as above. [facility] Cardiology will continue to follow. [...] Medrano MD - 10/30/2024 9:43 AM EST [facility] Medicine Progress note Assessment & Plan [...] (HYTRIN) 5 mg, Oral, Nightly Sign Thomas Medraon MD 10/30/2024 9:43 AM * Garth Perez DO - 10/30/2024 9:25 AM EST Date 10/30/2024 Assessment & Plan 79y/o male PMHx DM, HTN, CKD V (bCR~5 from 05/2023) d/t HTN + DM ([place] Dr [place]), admit as xfer fromOSH with dyspnea (COVID+) [...] original note were not included. [facility] Cardiology Transfer Service Progress Note [...] today - Strict I&Os, daily weights Primary Family Resource Management Specialist: [facility] Cardiology will continue to follow. Case discussed with [facility] attending Dr. Valentino Subjective Pt [...] d/t HTN + DM ([place] Dr in [place]), admit as xfer fromOSH with dyspnea (COVID+) [...] hyperparathyroidism - continue calcitriol 0.5 mcg daily [facility] timing - TBD Subjective HPI Continues with O2 oxy mask overnight-weaned to NC this AM Heparin drip ongoing No dyspnea symptoms He remains patient despite multiple days of delay for [facility] Review of Systems Respiratory: negative Cardiovascular: [...] Diet Diabetic/ Calorie Controlled; Carb Counting 60g/meal 0794-0921 kcal History Diabetes History Pre-Admission Regimen: Lantus [...] in the patient record Speaking with a business info consultant Reviewing Labs & Radiology Signed Lucinda Whyte Endocrinology - Medicine 10/29/2024 8:33 AM * Macy Macias PA-C - 10/29/2024 7:45 AM EST Images from the original note were not included. [facility] Cardiology Transfer Service Progress Note [...] today - Strict I&Os, daily weights Primary Family Resource Management Specialist: [facility] Cardiology will continue to follow. Case discussed with [facility] attending Dr. Contreras Subjective Pt reports that he feels well Patient denies chest pain, shortness of breath, dizziness, lightheadedness, nausea, vomiting, palpitations Objective Telemetry Reviewed: NSR 78 Last Vitals Pulse:61,Resp:18,BP:(!) 144/65,SpO2:95 %,Weight:65.2 kg (143 lb 11.8 oz) Temp Last 24 hrs: Temp Min: 96.7 ??F (35.9 ??C) Max: 98.2 ??F (36.8 ??C) Intake/Output Summary (Last 24 hours) at 10/29/2024 0797 Last data filed at 10/29/2024 0633 Gross [...] d/t HTN + DM ([place] Dr [place]), admit as xfer fromOSH with dyspnea (COVID+) [...] 10/28/2024 9:31 AM EST Endocrinology Progress Note COMMERCIAL DRIVER Endocrinology - Medicine Today's Date: 10/28/2024 Admit [...] Diet Diabetic/ Calorie Controlled; Carb Counting 60g/meal 4112-3895 kcal Steroids: None Infusions: heparin (porcine) IV [...] outside hospital with URI symptoms, transferred to [facility] for management of DKA and ICU, [...] 75 mg daily - Continue telemetry -- solder making laborer most likely be on Monday 10/30, please [...] various nights and back to diet pending Longitudinal Float Operator for several days with concern that he [...] Subjective Overnight: Patient did not go to Longitudinal Float Operator yesterday, stable overnight no acute events Today: Patient seen and examined at this morning. He is on supplemental oxygen. He states he is feeling well and awaits Longitudinal Float Operator. I communicated that the cath is again [...] Patient remains on heparin drip pending cardiac center medical and lab director. Patient requires intermittent doses of IV Lasix for pulmonary edema and work of breathing. Kavya Burgess MD. PGY-2 Internal Medicine [place] Text Preferred Associated attestation - Madhav Ryan [...] outside hospital with URI symptoms, transferred to [facility] for management of DKA and ICU, [...] 75 mg daily - Continue telemetry -- solder making laborer most likely be on Monday 10/30, please [...] patient has been n.p.o. at midnight pending Longitudinal Float Operator for several days resuming a diet in [...] Subjective Overnight: Patient did not go to Longitudinal Float Operator yesterday, stable overnight no acute events Today: Patient seen and examined at this morning. He is on supplemental oxygen. He states he is feeling well and awaits Longitudinal Float Operator. I communicated that the cath is again [...] gap. Patient remains on heparin drippending cardiac center medical and lab director. Patient requires intermittent doses of IV Lasix for pulmonary edema and work of breathing. Donavon Rodgers MD PGY-1 Internal Medicine [place] Text Preferred Associated attestation - Madhav Ryan [...] d/t HTN + DM ([place] Dr in [place]), admit as xfer fromOSH with dyspnea (COVID+) [...] 10/27/2024 9:07 AM EST Endocrinology Progress Note COMMERCIAL DRIVER Endocrinology - Medicine Today's Date: 10/27/2024 Admit [...] Diet Diabetic/ Calorie Controlled; Carb Counting 60g/meal 1161-1290 kcal Steroids: none Infusions: dextrose, 25 mL/hr, [...] / Covid and DKA. Cannot rule out UT, COVID myocarditis, or stress induced cardiomyopathy at [...] private room post cath High risk for METAL BOX MAKER remains unchanged Recommend avoiding albuterol transition to [...] 2:30 Dr. Mario Alberto Alvarez [facility] cardiology will continue to follow. Case discussed with attending, Dr. Contreras Plan was communicated to primary team /and the [place] 3 team IMPROVE SCORE: . Stepdown / ICU / CCU Stay: 1-->Stepdown / ICU / CCU stay Age > 60 yrs: 1--> Age > 60 years IMPROVE SCORE: 2 DVT PPX: Heparin drip CODE STATUS:full code HCP/Decision maker: Patient Telemetry:Yes This note was prepared using voice recognition software and direct typing. Please excuse inadvertent director of supply chain or typing errors, or uncorrected word substitutions. [...] system. Dr. Pushpa Gallegos was notified by [place] text at 12:36 PM. Imaging Studies XR [...] effusions unchanged. Interpreted by: Mitchell Ascencio DO Cat And Dog Bather I personally reviewed the images and the [...] Sample left with bedside RN. ACCESS: 6 Samoan Zptb-U-Rvkcxwwb closed needle/catheter system REQUESTING PRACTITIONER: Cheryl Blue [...] traversingadjacent organs or vascular structures. A 6 Samoan Tejd-C-Cswlfyvw closed needle/catheter system was utilized for access. [...] adjacent organs or vascular structures. A 6 Samoan Rjgv-I-Trcghpcl closed needle/catheter system was utilized for access. [...] system. Dr. Pushpa Gallegos was notified by [place] text at 12:36 PM. XR Chest 1 [...] atelectasis, respectively. Interpreted by: Prem Coffman MD Cat And Dog Bather I personally reviewed the images and the [...] of contrast: 57.3% risk of any post-PCI RADAH; 12.6% post- PCI requiring HD. Troponin elevation can be demand ischemia due to viral pneumonia / Covid and DKA. Cannot rule out UT, COVID myocarditis, or stress induced cardiomyopathy at this point. NSTEMI likely type II demand however unable to rule out type I hence awaiting cardiac Medication regimen Consulted IC appreciate input Patient will remain n.p.o. at midnight for hopefully for [facility] and [facility] spoke with nephrology Dr. Perez who is in agreement to have the patient proceed with cath in a.m. given no availability today Continue heparin gtt per ACS protocol Continue ASA 81 mg daily Continue atorvastatin 80 mg daily Continue Toprol-XL 75 mg p.o. daily Continuous telemetry monitoring Patient will need a private room post cath High risk for METAL BOX MAKER remains unchanged ALISA on CKD Creatinine peak [...] 2:30 Dr. Mario Alberto Alvarez [facility] cardiology will continue to follow. Case discussed with attending, Dr. Contreras Plan was communicated to primary team dr Neymar Mcfarland /and the [place] 3 team IMPROVE SCORE: Stepdown / ICU / CCU Stay: 1-->Stepdown / ICU / CCU stay Age > 60 yrs: 1--> Age > 60 years IMPROVE SCORE: 2 DVT PPX: SC Heparin CODE STATUS:full code HCP/Decision maker: Patient Telemetry:Yes This note was prepared using voice recognition software and direct typing. Please excuse inadvertent director of supply chain or typing errors, or uncorrected word substitutions. [...] system. Dr. Pushpa Gallegos was notified by [place] text at 12:36 PM. Imaging Studies XR [...] effusions unchanged. Interpreted by: Mitchell Ascencio DO Cat And Dog Bather I personally reviewed the images and the [...] Sample left with bedside RN. ACCESS: 6 Samoan Jkgr-Q-Jtzptuil closed needle/catheter system REQUESTING PRACTITIONER: Cheryl Blue [...] traversingadjacent organs or vascular structures. A 6 Samoan Yffr-P-Uoatosnu closed needle/catheter system was utilized for access. [...] adjacent organs or vascular structures. A 6 Samoan Sqkp-S-Cphuylyf closed needle/catheter system was utilized for access. [...] system. Dr. Pushpa Gallegos was notified by [place] text at 12:36 PM. XR Chest 1 [...] atelectasis, respectively. Interpreted by: Prem Coffman MD Cat And Dog Bather I personally reviewed the images and the [...] Lateral leads Confirmed by DO Ladd Kyla ([id number]) on 10/25/2024 8:09:06 PM Medications Medications Scheduled [...] level of independence with functional mobility. Current [facility] Basic Mobility Score: 20 Rehab [...] Level Achieved Ambulation Ambulation Distance (Feet) 15 [facility] Basic Mobility Turning from your [...] Climbing 3-5 steps with a railing? 3 [facility] Basic Mobility Score 20 Therapy [...] d/t HTN + DM (ne[place] Dr in [place]), admit as xfer fromOSH with dyspnea (COVID+) [...] hypocalcemia and secondary hyperparathyroidism. His risk of METAL BOX MAKER remains unchanged Subjective HPI Vipul remains with [...] 10/26/2024 9:39 AM EST Endocrinology Progress Note COMMERCIAL DRIVER Endocrinology - Medicine Today's Date: 10/26/2024 Admit [...] team patient will be going to the Longitudinal Float Operator. Currently n.p.o. Addendum: Notified by team, cath [...] outside hospital with URI symptoms, transferred to [facility] for management of DKA and ICU, [...] patient has been n.p.o. at midnight pending Longitudinal Float Operator for several days resuming a diet in [...] Subjective Overnight: Patient did not go to Longitudinal Float Operator yesterday, stable overnight no acute events Today: Patient seen and examined at this morning. He is on supplemental oxygen. He states he is feeling well and awaits Longitudinal Float Operator. Patient continues to be very positive and [...] gap. Patient remains on heparin drippending cardiac center medical and lab director. Patient requires intermittent doses of IV Lasix for pulmonary edema and work of breathing. Donavon Rodgers MD PGY-1 Internal Medicine [place] Text Preferred Associated attestation - Neymar Mcfarland [...] / Covid and DKA. Cannot rule out UT, COVID myocarditis, or stress induced cardiomyopathy at [...] 2:30 Dr. Mario Alberto Alvarez [facility] cardiology will continue to follow. Case discussed with attending, Dr. Contreras Plan was communicated to primary team dr Neymar Mcfarland /and the [place] 3 team IMPROVE SCORE: Stepdown / ICU / CCU Stay: 1-->Stepdown / ICU / CCU stay Age > 60 yrs: 1--> Age > 60 years IMPROVE SCORE: 2 DVT PPX: Heparin drip CODE STATUS:full code HCP/Decision maker: Patient Telemetry:Yes This note was prepared using voice recognition software and direct typing. Please excuse inadvertent director of supply chain or typing errors, or uncorrected word substitutions. [...] system. Dr. Pushpa Gallegos was notified by [place] text at 12:36 PM. Imaging Studies XR [...] effusions unchanged. Interpreted by: Mitchell Ascencio DO Cat And Dog Bather I personally reviewed the images and the [...] Sample left with bedside RN. ACCESS: 6 Samoan Pvad-M-Otjtmjqs closed needle/catheter system REQUESTING PRACTITIONER: Cheryl Blue [...] traversingadjacent organs or vascular structures. A 6 Samoan Ztpf-H-Bvphsbya closed needle/catheter system was utilized for access. [...] adjacent organs or vascular structures. A 6 Samoan Umzm-D-Tagbjtxz closed needle/catheter system was utilized for access. [...] system. Dr. Pushpa Gallegos was notified by [place] text at 12:36 PM. XR Chest 1 [...] atelectasis, respectively. Interpreted by: Prem Coffman MD Cat And Dog Bather I personally reviewed the images and the [...] and diabetic kidney disease (he follows with cnc machine setter in [place]), who presented intially to OSH with URI [...] with falling creatinine still greater than 25% boot and shoe laborer providers are well aware of this condition [...] long time and has follow-up with a cnc machine setter in [place]. He feels very confident about his function [...] outside hospital with URI symptoms, transferred to [facility] for management of DKA and ICU, [...] patient has been n.p.o. at midnight pending Longitudinal Float Operator for several days resuming a diet in [...] Subjective Overnight: Patient did not go to Longitudinal Float Operator yesterday, stable overnight no acute events Today: Patient seen and examined at this morning. He is on supplemental oxygen. He states he is feeling well and awaits Longitudinal Float Operator. Patient has been very patient and awaits Longitudinal Float Operator Objective Last Vitals Pulse:77,Resp:16,BP:(!) 145/70,SpO2:(!) 91 %,Weight:65.9 [...] gap. Patient remains on heparin drippending cardiac center medical and lab director. Patient requires intermittent doses of IV Lasix for pulmonary edema and work of breathing. Donavon Rodgers MD PGY-1 Internal Medicine [place] Text Preferred Associated attestation - Neymar Mcfarland [...] fluid overload patient has not gone to Longitudinal Float Operator yet We will keep fingersticks every 4 [...] (Order- Specific), Last Rate: 15 Units/kg/hr (10/24/24 3713) Discharge Planning: Depending on disposition, was on [...] / Covid and DKA. Cannot rule out UT, COVID myocarditis, or stress induced cardiomyopathy at [...] cardiology follow-up prior to discharge [facility] cardiology will continue to follow. Case discussed with attending, Dr. Contreras Plan was communicated to primary team dr Neymar Mcfarland /and the [place] 3 team IMPROVE SCORE Stepdown / ICU / CCU Stay: 1-->Stepdown / ICU / CCU stay Age > 60 yrs: 1--> Age > 60 years IMPROVE SCORE: 2 DVT PPX: Heparin drip CODE STATUS:full code HCP/Decision maker: Patient Telemetry:Yes This note was prepared using voice recognition software and direct typing. Please excuse inadvertent director of supply chain or typing errors, or uncorrected word substitutions. [...] system. Dr. Pushpa Gallegos was notified by [place] text at 12:36 PM. Imaging Studies XR [...] effusions unchanged. Interpreted by: Mitchell Ascencio DO Cat And Dog Bather I personally reviewed the images and the [...] Sample left with bedside RN. ACCESS: 6 Samoan Yvrf-K-Ttsrvmkr closed needle/catheter system REQUESTING PRACTITIONER: Cheryl Blue [...] traversingadjacent organs or vascular structures. A 6 Samoan Ztnb-V-Fhetolkt closed needle/catheter system was utilized for access. [...] adjacent organs or vascular structures. A 6 Samoan Cmmv-B-Saefbmab closed needle/catheter system was utilized for access. [...] system. Dr. Pushpa Gallegos was notified by [place] text at 12:36 PM. XR Chest 1 [...] atelectasis, respectively. Interpreted by: Prem Coffman MD Cat And Dog Bather I personally reviewed the images and the [...] outside hospital with URI symptoms, transferred to [facility] for management of DKA and ICU, [...] the patient will be taken to the Longitudinal Float Operator and will remain n.p.o. until the procedure is over. The patient had increasing oxygen requirements overnight and repeat chest x-ray showed pulmonary edema. We discussed these findings with the Longitudinal Float Operator as they would like to give gentle [...] insulin. The patient has been n.p.o. pending Longitudinal Float Operator and there is concern that he may [...] gap. Patient remains on heparin drippending cardiac center medical and lab director. 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 Cannot rule out UT, COVID myocarditis, or stress induced cardiomyopathy at [...] cardiology follow-up prior to discharge [facility] cardiology will continue to follow. Case discussed with attending, Dr. Contreras Plan was communicated to primary team dr Neymar Mcfarland /and the y[place] 3 team IMPROVE SCORE: Stepdown / ICU / CCU Stay: 1-->Stepdown / ICU / CCU stay Age > 60 yrs: 1--> Age > 60 years IMPROVE SCORE: 2 DVT PPX: Heparin drip CODE STATUS:full code HCP/Decision maker: Patient Telemetry:Yes This note was prepared using voice recognition software and direct typing. Please excuse inadvertent director of supply chain or typing errors, or uncorrected word substitutions. [...] system. Dr. Pushpa Gallegos was notified by [place] text at 12:36 PM. Imaging Studies XR [...] effusions unchanged. Interpreted by: Mitchell Ascencio DO Cat And Dog Bather I personally reviewed the images and the [...] Sample left with bedside RN. ACCESS: 6 Samoan Dtsm-A-Vnluruco closed needle/catheter system REQUESTING PRACTITIONER: Cheryl Blue [...] traversingadjacent organs or vascular structures. A 6 Samoan Eend-E-Bertpnhg closed needle/catheter system was utilized for access. [...] adjacent organs or vascular structures. A 6 Samoan Nrfp-K-Ltwumtwj closed needle/catheter system was utilized for access. [...] system. Dr. Pushpa Gallegos was notified by [place] text at 12:36 PM. XR Chest 1 [...] atelectasis, respectively. Interpreted by: Prem Coffman MD Cat And Dog Bather I personally reviewed the images and the [...] QT has lengthened Confirmed by MD Alex, [facility] (42) on 10/22/2024 7:57:16 AM Medications Medications [...] outside hospital with URI symptoms, transferred to [facility] for management of DKA and ICU, [...] gap. Patient remains on heparin drippending cardiac center medical and lab director. Donavon Rodgers MD PGY-1 Internal Medicine [place] Text Preferred Associated attestation - Neymar Mcfarland [...] (he follows with Dr Henrik Bird in [place]), who presented intially to OSH with URI [...] with slight improvement to 4.3 Plan for center medical and lab director today. 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 He feels very confident about his function [...] found for: TACROLIMUS No results found for: [id number] , TOTVOL , CRCLR , PERIOD No [...] 10/21 2105 Sincerely, Marty Kent MD, OSCAR Manager Equipment Chronic Kidney Disease [facility] Attending Special Machine Stitcher, Partner, [facility] Continuous Medication Ordered Dose/Rate, [...] / Covid and DKA. Cannot rule out UT, COVID myocarditis, or stress induced cardiomyopathy at [...] cardiology follow-up prior to discharge [facility] cardiology will continue to follow. [...] software and direct typing. Please excuse inadvertent director of supply chain or typing errors, or uncorrected word substitutions. [...] system. Dr. Pushpa Gallegos was notified by [place] text at 12:36 PM. Imaging Studies XR [...] effusions unchanged. Interpreted by: Mitchell Ascencio DO Cat And Dog Bather I personally reviewed the images and the [...] Sample left with bedside RN. ACCESS: 6 Samoan Qjep-Y-Bidhqiio closed needle/catheter system REQUESTING PRACTITIONER: Cheryl Blue [...] traversingadjacent organs or vascular structures. A 6 Samoan Griy-E-Yweabvan closed needle/catheter system was utilized for access. [...] adjacent organs or vascular structures. A 6 Samoan Nrwo-H-Iiawvwhz closed needle/catheter system was utilized for access. [...] system. Dr. Pushpa Gallegos was notified by [place] text at 12:36 PM. XR Chest 1 [...] atelectasis, respectively. Interpreted by: Prem Coffman MD Cat And Dog Bather I personally reviewed the images and the [...] QT has lengthened Confirmed by MD Alex, [facility] ([place] on 10/22/2024 7:57:16 AM Medications Medications [...] 10/21/24 0803 10/21/24 0309 10/20/24 0215 10/19/24 1469 SODIUM mmol/L -- 145 -- -- 140 [...] outside hospital with URI symptoms, transferred to [facility] for management of DKA and ICU, [...] telemetry -- Cardiology will bring patient for center medical and lab director tomorrow for RHC and LHC, NPO at [...] gap. Patient remains on heparin drippending cardiac center medical and lab director. Donavon Rodgers MD PGY-1 Internal Medicine [place] Text Preferred Associated attestation - Neymar Mcfarland [...] Diet Diabetic/ Calorie Controlled; Carb Counting 60g/meal 8166-8855 kcal Steroids: None. Drips: None. History Diabetes [...] Diet Diabetic/ Calorie Controlled; Carb Counting 60g/meal 7491-9372 kcal Steroids: None. Drips: None. History Diabetes [...] outside hospital with URI symptoms, transferred to [facility] for management of DKA and ICU, [...] Antonio Hameed PGY1, Internal Medicine Available on [place] Text 10/21/2024 10:39 AM Associated attestation - [...] MD (Nina) MPH Chief, Department of Medicine [phone] * Linda Rivera PA-C - 10/21/2024 6:28 AM EST Images from the original note were not included. [facility] Cardiology Transfer Service Progress Note [...] viral pneumonia and DKA. Cannot rule out UT, COVID myocarditis, or stress induced cardiomyopathy at [...] follow up prior to discharge. [facility] cardiology will continue to follow. [...] inpatient Arrived From Hospital General Information Comments [facility] Initial Information How to be Addressed Vipul Source of Information patient;family;health record Stated Reason for Admission Covid, Heart, High Sugar Levels Patient Aware of Diagnosis yes Limitations on Visitors/Phone Calls none Temporary Family Living Arrangements (While Hospitalized) none needed Adaptive Services not applicable Does the Patient Have a CT DNR [place] Bracelet or State DNR Form? no Clinical Trial not applicable Designated Caregiver for Discharge Coordination Do You Have a Designated Caregiver for Discharge? yes Designated Caregiver's Name Prem Wilder Caregiver's Relationship to Patient child neurologist's Caregiver's Address Same as the patient's address. [...] were you homeless or living in a chcf (including now)? N Food Insecurity Within the [...] of Pulmonary, Critical Care, and Sleep Medicine [address] [place] [address], [address], [place] [address] Critical Care Progress Note Assessment & Plan [...] system. Dr. Pushpa Gallegos was notified by [place] text at 12:36 PM. GI: >Nutrition: Diet/Nutrition Received: consistent carb/diabetic diet Diet Diabetic/ Calorie Controlled; Carb Counting 60g/meal 2847-2923 kcal Renal: CKD 5, stable Monitor >Intake [...] if appropriate. This report was generated using Bulbstorm Speaking dictation software. Although every attempt has [...] Hickey MD Principal Problem: DKA (diabetic ketoacidosis) ([facility]) (POA: Yes) Resolved Problems: Assessment & [...] Diet Diabetic/ Calorie Controlled; Carb Counting 60g/meal 8540-0666 kcal Steroids: None. Drips: None. History Diabetes [...] record Reviewing Labs & Radiology Signed Tangela eRed PA-C Endocrinology - Medicine 10/20/2024 1:49 PM * Lesly Luke MD - 10/20/2024 7:48 AM EST Images from the original note were not included. [facility] CRITICAL CARE RESIDENT PROGRESS NOTE LOS: 2 CODE:: Code Status Procedures Full Code Subjective Hospital Course: This is a 79 yo male with PMHx of stage V CKD (has not been on hemodialysis follows with nephrologyin [place]), insulin-dependent diabetes, hypertension, HFrEF with acute decompensation [...] List Principal Problem: DKA (diabetic ketoacidosis) ([facility]) (POA: Yes) Resolved Problems: Assessment Neymar Baum Meño 79 y.o. w/ PMHx of stage V CKD (has not been on hemodialysis follows with nephrology in [place]), insulin-dependent diabetes, hypertension admitted to ICU for [...] Diet Diabetic/ Calorie Controlled; Carb Counting 60g/meal 2004-5062 kcal NEPHROLOGY ALISA on stage III CKD [...] Tilley. Sign Lesly Luke MD Available on [place] Text 10/20/2024 7:48 AM * Linda Rivera PA-C - 10/20/2024 6:40 AM EST Images from the original note were not included. [facility] Cardiology Transfer Service Progress Note [...] viral pneumonia and DKA. Cannot rule out UT, COVID myocarditis, or stress induced cardiomyopathy at [...] follow up prior to discharge. [facility] cardiology will continue to follow. [...] been on hemodialysis follows with nephrology in [place]), insulin-dependent diabetes, hypertension admitted to ICU for [...] MD Donavon Amos MD PGY-1 Internal Medicine [place] Text Preferred ICU Check-list Code: Code Status [...] Sample left with bedside RN. ACCESS: 6 Samoan Jaaf-A-Altzhibl closed needle/catheter system REQUESTING PRACTITIONER: Cheryl Blue [...] traversingadjacent organs or vascular structures. A 6 Samoan Vgff-K-Xcxatkib closed needle/catheter system was utilized for access. [...] adjacent organs or vascular structures. A 6 Samoan Hgcr-U-Lxssdewo closed needle/catheter system was utilized for access. [...] effusions unchanged. Interpreted by: Mitchell Ascencio DO Cat And Dog Bather DIET/NUTRITION: Diet/Nutrition Received: NPO Diet NPO; Meds Behavioral/Sedation scales: CAM-ICU Delirium Present: Negative Rea Agitation Sedation Scale (RASS) / Modified RASS: 0-->alert and calm Ventilator settings: Associated attestation - Kristopher Hickey MD - 10/19/2024 11:18 PM EST [facility] Attestation note: Kristopher Hickey MD [...] Pulmonary, Critical Care, and Sleep Medicine [address], [address], [place] [address] Critical Care Progress Note Assessment & Plan [...] system. Dr. Pushpa Gallegos was notified by [place] text at 12:36 PM. GI: >Nutrition: Diet/Nutrition [...] if appropriate. This report was generated using Bulbstorm Speaking dictation software. Although every attempt has been made by the provider to proofread this document, occasional misspellings and typographical errors may still be present. Sign: Kristopher Hickey MD 10/19/2024 9:56 AM * Linda Rivera PA-C - 10/19/2024 6:33 AM EST Images from the original note were not included. [facility] Cardiology Transfer Service Progress Note [...] setting of COVID infection and pulmonary congestion AILSA on CKD stage V Diabetic ketoacidosis Severe [...] viral pneumonia and DKA. Cannot rule out UT, COVID myocarditis, or stress induced cardiomyopathy at [...] follow up prior to discharge. [facility] cardiology will continue to follow. [...] Pulmonary, Critical Care, and Sleep Medicine [address], [address], [place] [address] Critical Care Progress Note Assessment & Plan [...] There were discussions of HD with his cnc machine setter Dr. Pelon Smith Electrolyte monitoring Avoid nephrotoxins, monitor urine output Get nephrology on board given likely need for cardiac cath >Intake & Output No intake or output data in the 24 hours ending 10/18/24 0984 Endo: Glucommander protocol Gentle IV fluids given concern for volume overload Heme/Onc: On heparin drip for NSTEMI ID: No signs or symptoms of infection Monitor off antibiotics >Antibiotics: Drips: dextrose 5 % and sodium chloride 0.9 %, 10 mL/hr heparin (porcine) IV infusion - low dose protocol, 12 Units/kg/hr (Order- Specific), Last Rate: 12 Units/kg/hr (10/18/24 0670) insulin regular (HumuLIN-R) IV infusion - Glucommander, 0-100 Units/hr, Last Rate: 10 Units/hr (10/18/24 8278) Lines: Peripheral IV - Single Lumen (Adult) [...] if appropriate. This report was generated using Bulbstorm Speaking dictation software. Although every attempt has been made by the provider to proofread this document, occasional misspellings and typographical errors may still be present. Sign: Pushpa Gallegos MD 10/18/2024 7:54 AM documented in this encounter H&P Notes * Cheryl Blue MD - 10/18/2024 8:33 AM EST Images from the original note were not included. [facility] MICU H&P LOS: 0 CODE: Code Status Procedures Full Code Assessment and Plan Problem List Principal Problem: DKA (diabetic ketoacidosis) (HCC) (POA: Yes) Resolved Problems: Assessment Neymar Wilder 79 y.o. w/ PMHx of stage V CKD (has not been on hemodialysis follows with nephrology in [place]), insulin-dependent diabetes, hypertension admitted to ICU for [...] V CKD (with prior discussions with patient's cnc machine setter regarding possible initiation of HD) Plan by [...] CKD (there were discussions with patient's prior cnc machine setter Dr. Pelon Smith regarding HD) Initial BUN/creatinine [...] been on hemodialysis follows with nephrology in [place]), insulin-dependent diabetes, hypertension presented from outside hospital and transferred to [facility] for concerns of NSTEMI and DKA. [...] atelectasis, respectively. Interpreted by: Prem Coffman MD Cat And Dog Bather I personally reviewed the images and the [...] Procedure(s): Bilateral thoracentesis Indications: Bilateral pleural effusion Structures Technician: None Anesthesia: None Fluid: 850ml of clear [...] ESTAssociated Order(s): IP CONSULT TO NUTRITION SERVICES [facility] Nutrition Note Visit Type: initial assessment [...] was initially admitted to ICU, transferred to [place] on 10/20, now on floor level of [...] lb 1.8 oz) Fluids: 1600ml based on HAND WORKER Method (or per MD/team) Estimated/Assessed Carbohydrates Needs: [...] 1. 79 y.o. male with CAD, s/p UT 02/2024, transferred from [facility] with NSTEMI. 2. HFrEF with newly [...] Illness 79 y.o. male with CAD, s/p UT 02/2024, HFrEF , CKD stage V, Cr [...] H&P, physical assessment, and educated on cardiac Longitudinal Float Operator procedure was approximately 60 minutes The following information is collected for participation in the [employer] CATH/PCI Registry (ACCNCDR) and is used for submission of data and may not be entirely consistent with the clinical evaluation. ACC-NCDR CathPCI V5 Collection Form History and Risk Factors Hypertension: Yes Diabetes mellitus: Yes Hx of CAD: No Prior UT: Yes Date of most recent UT: 02/08/2024 Prior CABG: No Prior PCI: No [...] assessed: No Indications and Presentation Indication(s) for center medical and lab director visit: suspected CAD Chest pain symptom assessment: [...] medical Struve coronary artery disease status post UT in February 2024, heart failure with reduced [...] patient. Risks including but not limited to UT, stroke, emergency bypass surgery, bleeding or vascular [...] DM II, HTN who was transferred from [facility] to on 10/18/24 with concern for [...] been on hemodialysis follows with nephrology in [place]), insulin-dependent diabetes, hypertension presented from outside hospital and transferred to [facility] for concerns of NSTEMI and DKA. [...] found for: TACROLIMUS No results found for: [id number] , TOTVOL , CRCLR , PERIOD No [...] as written. Signed, Marty Kent MD, OSCAR Manager Equipment, CKD, [facility] Chief of Nephrology, [facility] [place] * Tangela Reed PA-C - 10/19/2024 9:09 AM ESTAssociated Order(s): IP CONSULT TO ENDOCRINOLOGY Endocrinology Consult Note CHELLY Ponce Endocrinology - Medicine Date of Consult: 10/19/2024 Patient's Primary Care Physician: No primary care provider on file. Physician Requesting Consult: Reason for Consultation: Diabetes Management Admit Date: 10/18/2024 5:10 AM Principal Problem: DKA (diabetic ketoacidosis) ([facility]) (POA: Yes) Resolved Problems: Addendum Pended [...] Complaint Diabetes Management [facility]ive[facility], interviewed over [...] original note were not included. [facility] CARDIOLOGY TRANSFER SERVICE Date of Consult: 10/18/2024 Patient's Primary Care Physician: No primary care provider on file. Physician Requesting Consult: Pushpa Gallegos MD Primary Family Resource Management Specialist: - Reason for Consultation: Shortness of Breath [...] monitor with RN Nesha Jacobsen RN 10/18/24 9879 * Kristian Angeles RN - 10/18/2024 12:07 [...] history of diabetes presents in transfer from [place] with the patient was found to be [...] from external provider, facility, or healthcare organization: [place] ED note History obtained from other source [...] to fluid overload. Adriel Funez RN 10/18/24 6375 * Adriel Funez RN - 10/18/2024 5:24 [...] legal medical record. Vickie Norris RN, CDS [phone] * Case Coordination-Payor Communication - Meme Jones [...] Continued Stay Review Date: 10/31/2024 Clinical Update: [facility] today, remains NPO Neymar remains on [...] arrived to the unit at 2000 from center medical and lab director. Upon assessment pt is Aox4, NSR on monitor and on RA. RRA CDI. TR Band off at 2014. No significant events overnight. Safety maintained and call dotson within reach. Plan for possible discharge today. Edilson Yao 11/01/2024 5:08 AM * Plan of Care - Oksana Zahng RN - 10/31/2024 6:38 PM EST Plan of Care Reviewed With: patient Progress: no change Outcome Evaluation: Pt. Alert and oriented x4. On 2L NC satting in the high 90s. NSR on the monitor. No c/o of pain or discomfort. Got pre cath fluids. Heparin gtt infusing. Sent to center medical and lab director for LHC.Strict isolation d/c. Oksana Zhang 10/31/2024 [...] 1830. On 10/18/2024, he was transferred to [facility] intensive care unit. He received treatment to DKA, acidosis and hyperglycemia improved on intravenous fluid and insulin therapy. Upon admission to [facility] NT-proBNP was found to have 70K [...] clinically stable for transition. Plan is for [facility] today. At this time transition plan [...] original note were not included. [facility] Cardiology Transfer Service Plan of [...] time -Pacer pads on -Tentatively planned for [facility] Tuesday, if VT persists contact center medical and lab director sooner for consideration of more urgent catheterization [...] Burgess MD Internal Medicine PGY2 Available via [employer] 10/28/24 10:54 AM * Plan of Care [...] remained stable and we continue optimizing for Longitudinal Float Operator. Catheter most likely happen early next week. He was appreciated update and I answered all his questions to the best my ability. Donavon Rodgers MD PGY-1 Internal Medicine [place] Text Preferred * Plan of Care - [...] of Care Reviewed With: patient Outcome Evaluation: [id number]: Neymar was A&Ox4 and had no complaints [...] Summary: pending cardiac cath Patient is from [place]. Recommendation: dispo plan home with HC services [...] ability. Donavon Rodgers MD PGY-1 Internal Medicine [place] Text Preferred * Plan of Care - Sirisha Adams RN - 10/26/2024 4:49 AM EST Progress: improving Outcome Evaluation: 6949-2372: Nemyar remains alert and oriented *4. no shortness of breath. Continued on 4L oxymask, sating above goal. Continued on heparin drip. NPO since midnight for left and right heart cath today. slept between care. Sirisha Adams 10/26/2024 4:49 AM * Plan of Care - Olga Terrell RN - 10/25/2024 6:50 PM EST Plan of Care Reviewed With: patient Progress: improving Outcome Evaluation: 1668-2078. Pt alert and oriented *4. No reports [...] PM EST Patient set to go to center medical and lab director tomorrow, has been made NPO at midnight. Called bed management to facilitate transfer of patient to [address] in a private room 2/2 COVID [...] update Donavon Rodgers MD PGY-1 Internal Medicine [place] Text Preferred * Plan of Care - [...] Review Date: 10/25/2024 Clinical Update: NPO for center medical and lab director today. Spot dose Lasix. Continues on heparin gtt while awaiting center medical and lab director. 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 Pt alert and oriented *4. No reports [...] for his father to go to the Longitudinal Float Operator today. He had increasing oxygen requirements overnight [...] ability. Donavon Rodgers MD PGY-1 Internal Medicine [place] Text Preferred * Plan of Care - Sirisha Adams RN - 10/24/2024 6:44 AM EST Outcome Evaluation: 3351-0382: Neymar is alert and oriented *4. Denies [...] Terrell RN - 10/23/2024 6:57 PM EST [id number]. Pt alert and oriented *4. No reports [...] With: patient Progress: no change Outcome Evaluation: 3179-2496: No acute changes. Heparin gtt adjusted per [...] of Care Reviewed With: patient Outcome Evaluation: 0829-2053: In the beginning of the shift Neymar [...] ability. Donavon Rodgers MD PGY-1 Internal Medicine [place] Text Preferred * Rehab Therapy Consults - [...] level of independence with functional mobility. Baseline [facility] Basic Mobility Score: 24 Current [facility] Basic Mobility Score: 20 Objective [...] outside hospital with URI symptoms, transferred to [facility] for management of DKA and ICU, [...] Progressive Mobility Level Achieved Transferring to Chair [facility] Basic Mobility Turning from your [...] Climbing 3-5 steps with a railing? 3 [facility] Basic Mobility Score 20 Therapy [...] PT goal 1 Transfer Goal 1 (PT) [place] Level/Cues Needed (Transfer Goal 1, PT) modified independence Time Frame (Transfer Goal 1, PT) 2 weeks Activity/Assistive Device (Transfer Goal 1, PT) transfers, all;walker, rolling Gait Training Goal 1 (PT) Time Frame (Gait Training Goal 1, PT) 2 weeks [place] Level (Gait Training Goal 1, PT) modified independence Activity/Assistive Device (Gait Training Goal 1, PT) gait (walking locomotion);walker, rolling Distance (Gait Training Goal 1, PT) 300 feet Stairs Goal 1 (PT) [place] Level/Cues Needed (Stairs Goal 1, PT) supervision [...] of Care Reviewed With: patient Outcome Evaluation: [id number]: Neymar was A&Ox4 and had no complaints [...] Progress: no change Outcome Evaluation: Arrived from [facility] around 1600. Skin check complete with 2nd [...] person supports:Self and Family PCP: Updated in [employer]. Added his preferred pharmacy as well. Anticipated [...] Continue Cierra Greenberg MC PGY-3 Internal Medicine [facility] Available on Tiger[employer] * Plan of Care [...] tonight. Donavon Rodgers MD PGY-1 Internal Medicine [place] Text Preferred * Case Coordination-Payor Communication - Meme Jones - 10/19/2024 7:24 AM EST [facility] General Statutes Sec: [id number]: Notification of determination communicated within 2business days of receipt of all information necessary to complete the review. Please fax authorization determination to [phone] or call [phone] * Case Coordination-Payor Communication - Nathalia Liao RN - 10/19/2024 6:14 AM EST Type: (Inpt/Obs): Inpatient Date of Admission: 10/18/2024 Admitting Dx: DKA HPI: 79 y.o. w/ PMHx of stage V CKD (has not been on hemodialysis follows with nephrology in [place]), insulin-dependent diabetes, hypertension presented from outside hospital and transferred to [facility] for concerns of NSTEMI and DKA. [...] V CKD (with prior discussions with patient's cnc machine setter regarding possible initiation of HD) Vitals: Pulse:86,Resp:20,BP:138/69,SpO2:92 [...] CKD (there were discussions with patient's prior cnc machine setter Dr. Pelon Smith regarding HD) Initial BUN/creatinine [...] OF CARE TEST ORDERABLES Performing Organization Address [facility] Phone Number HOSPITAL LAB See Below * (ABNORMAL) POCT Glucose, Fingerstick (11/01/2024 8:21 AM EST) POC Glucose 111(H) 65 - 99 mg/dL 11/01/2024 11:56 AM EST Blood specimen / Unknown 11/01/2024 8:21 AM EST 11/01/2024 11:56 AM EST Fuad Winter MD POINT OF CARE TEST ORDERABLES Performing Organization Address [facility] [place] Number [facility] LAB See Below * (ABNORMAL) Phosphorus (Early AM) (11/01/2024 6:20 AM EST) Phosphorus 4.7(H) 2.7 - 4.5 mg/dL 11/01/2024 7:58 AM EST [facility] Blood (Plasma/Serum) 11/01/2024 6:20 AM EST 11/01/2024 6:57 AM EST Jonna Donis PA-C LAB BLOOD ORDERABL ES Performing Organization Address [facility] [place] [address], [place] [address] * MAGNESIUM (11/01/2024 6:20 AM EST) Magnesium 1.6 1.6 - 2.7 mg/dL 11/01/2024 7:58 AM EST [facility] Blood (Plasma/Serum) 11/01/2024 6:20 AM EST 11/01/2024 6:57 AM EST Jonna Doins PA-C LAB BLOOD ORDERABL ES Performing Organization Address [facility] [place] [address], [place] [address] * (ABNORMAL) COMPLETE BLOOD COUNT, WITHOUT DIFFERENTIAL (11/01/2024 6:20 AM EST) [facility] White Blood Cell Count 9.1 4.0 - 11.0 Thou/uL 11/01/2024 7:10 AM [facility] Platelet Count 261 150 - 450 Thou/uL 11/01/2024 7:10 AM [facility] Hemoglobin 9.2(L) 13.0 - 17.7 g/dL 11/01/2024 7:10 AM [facility] Hematocrit 29.7(L) 39.0 - 54.0 % 11/01/2024 7:10 AM [facility] Red Blood Cell Count 3.00(L) 4.50 - 6.20 Mil/uL 11/01/2024 7:10 AM [facility] MCV 99 80 - 100 fL 11/01/2024 7:10 AM [facility] MCH 30.7 27.0 - 31.0 pg 11/01/2024 7:10 AM [facility] MCHC 31.0 30.0 - 36.0 g/dL 11/01/2024 7:10 AM [facility] RDW 16.2(H) 11.5 - 14.5 % 11/01/2024 7:10 AM [facility] MPV 11.4 7.5 - 12.5 fL 11/01/2024 7:10 AM [facility] Blood Blood specimen / Unknown 11/01/2024 6:20 AM EST 11/01/2024 6:57 AM EST Jonna Donis PA-C [place] [address], [place] [address] * (ABNORMAL) BASIC METABOLIC PANEL (11/01/2024 6:20 AM EST) [facility] Glucose 92 65 - 99 mg/dL 11/01/2024 7:58 AM [facility] Comment:Fasting: <100 mg/dL, Non-Fasting: <200 mg/dL (ADA 2004) Blood Urea Nitrogen (BUN) 41(H) 8 - 21 mg/dL 11/01/2024 7:58 AM [facility] Creatinine 4.5(H) 0.5 - 1.3 mg/dL 11/01/2024 7:58 AM [facility] eGFR 13(L) >59 11/01/2024 7:58 AM [facility] Comment:CKD-EPI (2020) in mL /min/1.73 sq meters. Sodium 140 136 - 145 mmol/L 11/01/2024 7:58 AM [facility] Potassium 4.8 3.4 - 5.3 mmol/L 11/01/2024 7:58 AM [facility] Chloride 104 98 - 107 mmol/L 11/01/2024 7:58 AM [facility] CO2 22 22 - 33 mmol/L 11/01/2024 7:58 AM [facility] Anion Gap 14 7 - 17 11/01/2024 7:58 AM [facility] Calcium 9.3 8.7 - 10.5 mg/dL 11/01/2024 7:58 AM [facility] BUN/Creatinine Ratio 9(L) 10.0 - 25.0 Ratio 11/01/2024 7:58 AM [facility] Blood (Plasma/Serum) 11/01/2024 6:20 AM EST 11/01/2024 6:57 AM EST Jonna Donis PA-C [place] [address], [place] [address] * (ABNORMAL) POCT Glucose, Fingerstick (11/01/2024 1:58 [...] from the original result were not included. [facility] [place] at [facility] - Cardiac Catheterization Laboratory PATIENT DEMOGRAPHIC INFORMATION Name: Neymar Baum Meño : 1945 79 y.o. 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 Calixto Ureña MD [facility] [place] 10/31/2024 ??6:57 PM Coronary Findings Diagnostic Dominance: [...] POCT Glucose, Fingerstick (10/31/2024 4:45 PM EST) [facility] POC Glucose 74 65 - 99 mg/dL 10/31/2024 4:46 PM EST Blood specimen / Unknown 10/31/2024 4:45 PM EST 10/31/2024 4:46 PM EST Fuad Winter MD POINT OF CARE TEST ORDERABLES HOSPITAL LAB See Below * Heparin Assay (Anti Xa) (10/31/2024 3:28 PM EST) [facility] Anti Xa 0.36 IU/mL 10/31/2024 4:07 [...] MD LAB BLOOD ORDERABLES Performing Organization Address [facility] [place] [address], [place] [address] * POCT Glucose, Fingerstick (10/31/2024 12:04 PM EST) POC Glucose 92 65 - 99 mg/dL 10/31/2024 12:21 PM EST Blood specimen / Unknown 10/31/2024 12:04 PM EST 10/31/2024 12:21 PM EST Fuad Winter MD POINT OF CARE TEST ORDERABLES Performing Organization Address [facility] [facility] Phone Number [facility] LAB See Below * POCT Glucose, Fingerstick (10/31/2024 8:13 AM EST) POC Glucose 84 65 - 99 mg/dL 10/31/2024 8:15 AM EST Blood specimen / Unknown 10/31/2024 8:13 AM EST 10/31/2024 8:15 AM EST Fuad Winter MD POINT OF CARE TEST ORDERABLES Performing Organization Address [facility] Phone Number HOSPITAL LAB See Below * (ABNORMAL) High Sensitivity Troponin T (10/31/2024 7:16 AM EST) [facility] High Sensitivity Troponin T 396(HH) <23 ng/L 10/31/2024 9:15 AM EST [facility] Delta (Change) NO PREVIOUS RESULT <3 10/31/2024 9:15 AM EST [facility] Plasma/Serum 10/31/2024 7:16 AM EST 10/31/2024 7:47 AM EST Madhav Ryan MD LAB BLOOD ORDERABLES Performing Organization Address City/[facility]/[place] [address], [place] [address] * TSH, HIGHLY SENSITIVE (10/31/2024 7:16 AM EST) [facility] TSH, Highly Sensitive 2.06 0.27 - 4.20 mIU/L 10/31/2024 9:15 AM EST [facility] Plasma/Serum 10/31/2024 7:16 AM EST 10/31/2024 7:47 AM EST Madhav Ryan MD LAB BLOOD ORDERABLES [facility] [address] [place] [address], [place] [address] * Heparin Assay (Anti Xa) (10/31/2024 7:16 AM EST) [facility] Anti Xa 0.54 IU/mL 10/31/2024 8:07 AM [facility] Comment: (NOTE) Heparin Thromboembolic/Standard/Full Dose [...] LAB BLOOD ORDERAB LES Performing Organization Address [facility] [place] [address], [facility] [address] [place] [address] * (ABNORMAL) Phosphorus (Early AM) (10/31/2024 7:16 AM EST) Phosphorus 4.7(H) 2.7 - 4.5 mg/dL 10/31/2024 8:55 AM EST [facility] Blood (Plasma/Serum) 10/31/2024 7:16 AM EST 10/31/2024 7:47 AM EST Jonna Donis PA-C LAB BLOOD ORDERABL ES Performing Organization Address City/[facility] [place] [address], [place] [address] * MAGNESIUM (10/31/2024 7:16 AM EST) Pathologist [facility] Magnesium 1.7 1.6 - 2.7 mg/dL 10/31/2024 8:55 AM [facility] Blood (Plasma/Serum) 10/31/2024 7:16 AM EST 10/31/2024 7:47 AM EST Jonna Giraldo [facility] PA-C LAB BLOOD ORDERABL ES Performing Organization Address [facility] [place] [address], [place] [address] * (ABNORMAL) COMPLETE BLOOD COUNT, WITHOUT DIFFERENTIAL (10/31/2024 7:16 AM EST) [facility] White Blood Cell Count 8.9 4.0 - 11.0 Thou/uL 10/31/2024 8:14 AM [facility] Platelet Count 289 150 - 450 Thou/uL 10/31/2024 8:14 AM [facility] Hemoglobin 9.6(L) 13.0 - 17.7 g/dL 10/31/2024 8:14 AM [facility] Hematocrit 31.4(L) 39.0 - 54.0 % 10/31/2024 8:14 AM [facility] Red Blood Cell Count 3.13(L) 4.50 - 6.20 Mil/uL 10/31/2024 8:14 AM [facility] MCV 100 80 - 100 fL 10/31/2024 8:14 AM [facility] MCH 30.7 27.0 - 31.0 pg 10/31/2024 8:14 AM [facility] MCHC 30.6 30.0 - 36.0 g/dL 10/31/2024 8:14 AM [facility] RDW 16.5(H) 11.5 - 14.5 % 10/31/2024 8:14 AM [facility] MPV 11.3 7.5 - 12.5 fL 10/31/2024 8:14 AM [facility] Blood Blood specimen / Unknown 10/31/2024 7:16 AM EST 10/31/2024 7:47 AM EST Jonna Donis PA-C [place] [address], [place] [address] * (ABNORMAL) BASIC METABOLIC PANEL (10/31/2024 7:16 AM EST) Glucose 82 65 - 99 mg/dL 10/31/2024 8:55 AM [facility] Comment:Fasting: <100 mg/dL, Non-Fasting: <200 mg/dL (ADA 2005) Blood Urea Nitrogen (BUN) 40(H) 8 - 21 mg/dL 10/31/2024 8:55 AM [facility] Creatinine 4.6(H) 0.5 - 1.3 mg/dL 10/31/2024 8:55 AM [facility] eGFR 12(L) >59 10/31/2024 8:55 AM [facility] Comment:CKD-EPI (2020) in mL /min/1.73 sq meters. Sodium 144 136 - 145 mmol/L 10/31/2024 8:55 AM [facility] Potassium 4.7 3.4 - 5.3 mmol/L 10/31/2024 8:55 AM [facility] Chloride 104 98 - 107 mmol/L 10/31/2024 8:55 AM [facility] CO2 24 22 - 33 mmol/L 10/31/2024 8:55 AM [facility] Anion Gap 16 7 - 17 10/31/2024 8:55 AM [facility] Calcium 8.8 8.7 - 10.5 mg/dL 10/31/2024 8:55 AM [facility] BUN/Creatinine Ratio 9(L) 10.0 - 25.0 Ratio 10/31/2024 8:55 AM EST [facility] Blood (Plasma/Serum) 10/31/2024 7:16 AM EST 10/31/2024 7:47 AM EST Jonna Donis PA-C LAB BLOOD ORDERABL ES Performing Organization Address [facility]/[place] [address], [place] [address] * POCT Glucose, Fingerstick (10/31/2024 2:18 AM EST) POC Glucose 88 65 - 99 mg/dL 10/31/2024 2:20 AM EST Blood specimen / Unknown 10/31/2024 2:18 AM EST 10/31/2024 2:20 AM EST Fuad Winter MD POINT OF CARE TEST ORDERABLES Performing Organization Address City/[facility]/ZIP Co de Phone Number [facility] LAB See Below * (ABNORMAL) POCT [...] OF CARE TEST ORDERABLES Performing Organization Address [facility] LAB See Below * POCT Glucose, Fingerstick (10/30/2024 2:00 PM EST) POC Glucose 99 65 - 99 mg/dL 10/30/2024 2:04 PM EST Blood specimen / Unknown 10/30/2024 2:00 PM EST 10/30/2024 2:04 PM EST Fuad Winter MD POINT OF CARE TEST ORDERABLES Performing Organization Address [facility] LAB See Below * POCT Glucose, Fingerstick (10/30/2024 12:35 PM EST) POC Glucose 99 65 - 99 mg/dL 10/30/2024 12:36 PM EST Blood specimen / Unknown 10/30/2024 12:35 PM EST 10/30/2024 12:36 PM EST Fuad Winter MD POINT OF CARE TEST ORDERABLES Performing Organization Address [facility] LAB See Below * POCT Glucose, Fingerstick (10/30/2024 8:43 AM EST) POC Glucose 95 65 - 99 mg/dL 10/30/2024 8:44 AM EST Blood specimen / Unknown 10/30/2024 8:43 AM EST 10/30/2024 8:44 AM EST Fuad Winter MD POINT OF CARE TEST ORDERABLES Performing Organization Address [facility] LAB See Below * Heparin Assay [...] LAB BLOOD ORDERAB LES Performing Organization Address [facility] [place] [address], [place] [address] * (ABNORMAL) Phosphorus (Early AM) (10/30/2024 7:09 AM EST) Phosphorus 5.1(H) 2.7 - 4.5 mg/dL 10/30/2024 8:47 AM EST [facility] Blood (Plasma/Serum) 10/30/2024 7:09 AM EST 10/30/2024 7:54 AM EST Jonna Donis PA-C LAB BLOOD ORDERABL ES Performing Organization Address [facility] [place] [address], [place] [address] * MAGNESIUM (10/30/2024 7:09 AM EST) Magnesium 1.7 1.6 - 2.7 mg/dL 10/30/2024 8:47 AM EST [facility] Blood (Plasma/Serum) 10/30/2024 7:09 AM EST 10/30/2024 7:54 AM EST Jonna Donis PA-C LAB BLOOD ORDERABL ES Performing Organization Address [facility] [place] [address], [place] [address] * (ABNORMAL) COMPLETE BLOOD COUNT, WITHOUT DIFFERENTIAL (10/30/2024 7:09 AM EST) White Blood Cell Count 9.3 4.0 - 11.0 Thou/uL 10/30/2024 8:20 AM EST [facility] Platelet Count 304 150 - 450 Thou/uL 10/30/2024 8:20 AM [facility] Hemoglobin 9.3(L) 13.0 - 17.7 g/dL 10/30/2024 8:20 AM [facility] Hematocrit 30.3(L) 39.0 - 54.0 % 10/30/2024 8:20 AM [facility] Red Blood Cell Count 2.99(L) 4.50 - 6.20 Mil/uL 10/30/2024 8:20 AM [facility] MCV 101(H) 80 - 100 fL 10/30/2024 8:20 AM [facility] MCH 31.1(H) 27.0 - 31.0 pg 10/30/2024 8:20 AM [facility] MCHC 30.7 30.0 - 36.0 g/dL 10/30/2024 8:20 AM [facility] RDW 16.8(H) 11.5 - 14.5 % 10/30/2024 8:20 AM [facility] MPV 11.1 7.5 - 12.5 fL 10/30/2024 8:20 AM [facility] Blood Blood specimen / Unknown 10/30/2024 7:09 AM EST 10/30/2024 7:54 AM EST Jonna Donis PA-C [place] [address], [place] [address] * (ABNORMAL) BASIC METABOLIC PANEL (10/30/2024 7:09 AM EST) Glucose 80 65 - 99 mg/dL 10/30/2024 8:47 AM [facility] Comment:Fasting: <100 mg/dL, Non-Fasting: <200 mg/dL (ADA 2005) Blood Urea Nitrogen (BUN) 40(H) 8 - 21 mg/dL 10/30/2024 8:47 AM [facility] Creatinine 4.3(H) 0.5 - 1.3 mg/dL 10/30/2024 8:47 AM [facility] eGFR 13(L) >59 10/30/2024 8:47 AM [facility] Comment:CKD-EPI (2020) in mL /min/1.73 sq meters. Sodium 142 136 - 145 mmol/L 10/30/2024 8:47 AM [facility] Potassium 4.5 3.4 - 5.3 mmol/L 10/30/2024 8:47 AM [facility] Chloride 101 98 - 107 mmol/L 10/30/2024 8:47 AM [facility] CO2 27 22 - 33 mmol/L 10/30/2024 8:47 AM [facility] Anion Gap 14 7 - 17 10/30/2024 8:47 AM [facility] Calcium 9.2 8.7 - 10.5 mg/dL 10/30/2024 8:47 AM [facility] BUN/Creatinine Ratio 9(L) 10.0 - 25.0 Ratio 10/30/2024 8:47 AM [facility] Blood (Plasma/Serum) 10/30/2024 7:09 AM EST 10/30/2024 7:54 AM EST Jonna Donis PA-C [place] [address], [place] [address] * POCT Glucose, Fingerstick (10/30/2024 6:47 AM [...] OF CARE TEST ORDERABLES Performing Organization Address [facility] LAB See Below * (ABNORMAL) POCT Glucose, Fingerstick (10/29/2024 9:16 PM EST) POC Glucose 138(H) 65 - 99 mg/dL 10/29/2024 9:16 PM EST Blood specimen / Unknown 10/29/2024 9:16 PM EST 10/29/2024 9:17 PM EST Fuad Winter MD POINT OF CARE TEST ORDERABLES Performing Organization Address [facility] LAB See Below * (ABNORMAL) POCT Glucose, Fingerstick (10/29/2024 4:32 PM EST) POC Glucose 187(H) 65 - 99 mg/dL 10/29/2024 4:33 PM EST Blood specimen / Unknown 10/29/2024 4:32 PM EST 10/29/2024 4:33 PM EST Fuad Winter MD POINT OF CARE TEST ORDERABLES Performing Organization Address [facility] LAB See Below * (ABNORMAL) POCT Glucose, Fingerstick (10/29/2024 12:54 PM EST) POC Glucose 162(H) 65 - 99 mg/dL 10/29/2024 12:55 PM EST Blood specimen / Unknown 10/29/2024 12:54 PM EST 10/29/2024 12:55 PM EST Fuad Winter MD POINT OF CARE TEST ORDERABLES Performing Organization Address [facility] LAB See Below * (ABNORMAL) POCT Glucose, Fingerstick (10/29/2024 7:51 AM EST) POC Glucose 107(H) 65 - 99 mg/dL 10/29/2024 7:53 AM EST Blood specimen / Unknown 10/29/2024 7:51 AM EST 10/29/2024 7:52 AM EST Fuad Winter MD POINT OF CARE TEST ORDERABLES Performing Organization Address [facility] de Phone Number HOSPITAL LAB See Below * (ABNORMAL) proBNP, N-terminal (10/29/2024 7:20 AM EST) Pathologist [facility] proBNP, N-terminal 47,866(H) <450 pg/mL 10/29/2024 12:12 PM EST [facility] Plasma specimen / Unknown 10/29/2024 7:20 AM EST 10/29/2024 8:04 AM EST Madhav Ryan MD LAB BLOOD ORDERABLES Performing Organization Address [facility] Phone Number [facility] [address] [place] [address], [place] [address] * Heparin Assay (Anti Xa) (10/29/2024 7:20 AM EST) [facility] Anti Xa 0.41 IU/mL 10/29/2024 8:28 [...] LAB BLOOD ORDERAB LES Performing Organization Address [facility] [place] [address], [place] [address] * (ABNORMAL) Phosphorus (Early AM) (10/29/2024 7:20 AM EST) Phosphorus 4.9(H) 2.7 - 4.5 mg/dL 10/29/2024 8:40 AM EST [facility] Blood (Plasma/Serum) 10/29/2024 7:20 AM EST 10/29/2024 8:04 AM EST Jonna Donis PA-C LAB BLOOD ORDERABL ES Performing Organization Address City/[facility]/[place] [address], [place] [address] * MAGNESIUM (10/29/2024 7:20 AM EST) Magnesium 1.7 1.6 - 2.7 mg/dL 10/29/2024 8:40 AM [facility] Blood (Plasma/Serum) 10/29/2024 7:20 AM EST 10/29/2024 8:04 AM EST Jonna Donis PA-C LAB BLOOD ORDERABL ES Performing Organization Address [facility] [place] [address], [place] [address] * (ABNORMAL) COMPLETE BLOOD COUNT, WITHOUT DIFFERENTIAL (10/29/2024 7:20 AM EST) White Blood Cell Count 8.5 4.0 - 11.0 Thou/uL 10/29/2024 8:23 AM [facility] Platelet Count 300 150 - 450 Thou/uL 10/29/2024 8:23 AM [facility] Hemoglobin 8.7(L) 13.0 - 17.7 g/dL 10/29/2024 8:23 AM [facility] Hematocrit 29.6(L) 39.0 - 54.0 % 10/29/2024 8:23 AM [facility] Red Blood Cell Count 2.92(L) 4.50 - 6.20 Mil/uL 10/29/2024 8:23 AM [facility] MCV 101(H) 80 - 100 fL 10/29/2024 8:23 AM [facility] MCH 29.8 27.0 - 31.0 pg 10/29/2024 8:23 AM [facility] MCHC 29.4(L) 30.0 - 36.0 g/dL 10/29/2024 8:23 AM [facility] RDW 17.2(H) 11.5 - 14.5 % 10/29/2024 8:23 AM [facility] MPV 10.9 7.5 - 12.5 fL 10/29/2024 8:23 AM [facility] Blood Blood specimen / Unknown 10/29/2024 7:20 AM EST 10/29/2024 8:04 AM EST Jonna Donis PA-C [place] [address], [place] [address] * (ABNORMAL) BASIC METABOLIC PANEL (10/29/2024 7:20 AM EST) Glucose 91 65 - 99 mg/dL 10/29/2024 8:40 AM [facility] Comment:Fasting: <100 mg/dL, Non-Fasting: <200 mg/dL (ADA 2005) Blood Urea Nitrogen (BUN) 44(H) 8 - 21 mg/dL 10/29/2024 8:40 AM [facility] Creatinine 4.3(H) 0.5 - 1.3 mg/dL 10/29/2024 8:40 AM [facility] eGFR 13(L) >59 10/29/2024 8:40 AM [facility] Comment:CKD-EPI (2020) in mL /min/1.73 sq meters. Sodium 142 136 - 145 mmol/L 10/29/2024 8:40 AM [facility] Potassium 4.0 3.4 - 5.3 mmol/L 10/29/2024 8:40 AM [facility] Chloride 103 98 - 107 mmol/L 10/29/2024 8:40 AM [facility] CO2 26 22 - 33 mmol/L 10/29/2024 8:40 AM [facility] Anion Gap 13 7 - 17 10/29/2024 8:40 AM [facility] Calcium 8.8 8.7 - 10.5 mg/dL 10/29/2024 8:40 AM [facility] BUN/Creatinine Ratio 10 10.0 - 25.0 Ratio 10/29/2024 8:40 AM EST [facility] Blood (Plasma/Serum) 10/29/2024 7:20 AM EST 10/29/2024 8:04 AM EST Jonna Donis PA-C LAB BLOOD ORDERABL ES [address] [address], [address] [address] * POCT Glucose, Fingerstick (10/29/2024 2:07 AM EST) POC Glucose 99 65 - 99 mg/dL 10/29/2024 2:07 AM EST Blood specimen / Unknown 10/29/2024 2:07 AM EST 10/29/2024 2:08 AM EST Fuad Winter MD POINT OF CARE TEST ORDERABLES Performing Organization Address [facility] Co de Phone Number [facility] See Below * (ABNORMAL) POCT Glucose, Fingerstick (10/28/2024 9:30 PM EST) POC Glucose 219(H) 65 - 99 mg/dL 10/28/2024 9:31 PM EST Blood specimen / Unknown 10/28/2024 9:30 PM EST 10/28/2024 9:31 PM EST Fuad Winter MD POINT OF CARE TEST ORDERABLES [facility] See Below * (ABNORMAL) POCT [...] 2.7 - 4.5 mg/dL 10/28/2024 4:54 PM [facility] Blood (Plasma/Serum) 10/28/2024 3:38 PM EST 10/28/2024 4:29 PM EST Madhav Ryan MD [place] [address], [place] [address] * Magnesium (STAT) (10/28/2024 3:38 PM EST) Pathologist [facility] Magnesium 1.8 1.6 - 2.7 mg/dL 10/28/2024 4:54 PM [facility] Blood (Plasma/Serum) 10/28/2024 3:38 PM EST 10/28/2024 4:29 PM EST Madhav Ryan MD LAB BLOOD [place] [address], [place] [address] * (ABNORMAL) Basic Metabolic Panel (STAT) (10/28/2024 3:38 PM EST) Pathologist [facility] Glucose 208(H) 65 - 99 mg/dL 10/28/2024 4:54 PM [facility] Comment:Fasting: <100 mg/dL, Non-Fasting: <200 mg/dL (ADA 2004) Blood Urea Nitrogen (BUN) 48(H) 8 - 21 mg/dL 10/28/2024 4:54 PM [facility] Creatinine 4.3(H) 0.5 - 1.3 mg/dL 10/28/2024 4:54 PM [facility] eGFR 13(L) >59 10/28/2024 4:54 PM [facility] Comment:CKD-EPI (2020) in mL /min/1.73 sq meters. Sodium 143 136 - 145 mmol/L 10/28/2024 4:54 PM [facility] Potassium 4.7 3.4 - 5.3 mmol/L 10/28/2024 4:54 PM [facility] Chloride 105 98 - 107 mmol/L 10/28/2024 4:54 PM [facility] CO2 25 22 - 33 mmol/L 10/28/2024 4:54 PM [facility] Anion Gap 13 7 - 17 10/28/2024 4:54 PM [facility] Calcium 8.9 8.7 - 10.5 mg/dL 10/28/2024 4:54 PM [facility] BUN/Creatinine Ratio 11 10.0 - 25.0 Ratio 10/28/2024 4:54 PM [facility] Blood (Plasma/Serum) 10/28/2024 3:38 PM EST 10/28/2024 4:29 PM EST Madhav Ryan MD [place] [address], [place] [address] * (ABNORMAL) POCT Glucose, Fingerstick (10/28/2024 12:32 [...] LAB BLOOD ORDERAB LES Performing Organization Address [facility] [place] [address], [place] [address] * (ABNORMAL) Phosphorus (Early AM) (10/28/2024 7:00 AM EST) Phosphorus 4.6(H) 2.7 - 4.5 mg/dL 10/28/2024 8:08 AM EST [facility] Blood (Plasma/Serum) 10/28/2024 7:00 AM EST 10/28/2024 7:37 AM EST Jonna Donis PA-C LAB BLOOD ORDERABL ES Performing Organization Address [facility] Co de Phone Number [address] [address], [address] [address] * MAGNESIUM (10/28/2024 7:00 AM EST) Magnesium 1.8 1.6 - 2.7 mg/dL 10/28/2024 8:08 AM EST [facility] Blood (Plasma/Serum) 10/28/2024 7:00 AM EST 10/28/2024 7:37 AM EST Jonna Donis PA-C LAB BLOOD ORDERABL ES Performing Organization Address [facility] [place] [address], [address] [address] * (ABNORMAL) COMPLETE BLOOD COUNT, WITHOUT DIFFERENTIAL (10/28/2024 7:00 AM EST) [facility] White Blood Cell Count 9.2 4.0 - 11.0 Thou/uL 10/28/2024 7:46 AM [facility] Platelet Count 326 150 - 450 Thou/uL 10/28/2024 7:46 AM [facility] Hemoglobin 8.7(L) 13.0 - 17.7 g/dL 10/28/2024 7:46 AM [facility] Hematocrit 29.1(L) 39.0 - 54.0 % 10/28/2024 7:46 AM [facility] Red Blood Cell Count 2.85(L) 4.50 - 6.20 Mil/uL 10/28/2024 7:46 AM [facility] MCV 102(H) 80 - 100 fL 10/28/2024 7:46 AM [facility] MCH 30.5 27.0 - 31.0 pg 10/28/2024 7:46 AM [facility] MCHC 29.9(L) 30.0 - 36.0 g/dL 10/28/2024 7:46 AM [facility] RDW 17.2(H) 11.5 - 14.5 % 10/28/2024 7:46 AM [facility] MPV 11.3 7.5 - 12.5 fL 10/28/2024 7:46 AM [facility] Blood Blood specimen / Unknown 10/28/2024 7:00 AM EST 10/28/2024 7:37 AM EST Jonna Donis PA-C LAB BLOOD ORDERABL ES [address] [address], [address] [address] * (ABNORMAL) BASIC METABOLIC PANEL (10/28/2024 7:00 AM EST) [facility] Glucose 84 65 - 99 mg/dL 10/28/2024 8:08 AM [facility] Comment:Fasting: <100 mg/dL, Non-Fasting: <200 mg/dL (ADA 2005) Blood Urea Nitrogen (BUN) 50(H) 8 - 21 mg/dL 10/28/2024 8:08 AM [facility] Creatinine 4.4(H) 0.5 - 1.3 mg/dL 10/28/2024 8:08 AM [facility] eGFR 13(L) >59 10/28/2024 8:08 AM [facility] Comment:CKD-EPI (2020) in mL /min/1.73 sq meters. Sodium 142 136 - 145 mmol/L 10/28/2024 8:08 AM [facility] Potassium 3.9 3.4 - 5.3 mmol/L 10/28/2024 8:08 AM [facility] Chloride 105 98 - 107 mmol/L 10/28/2024 8:08 AM [facility] CO2 25 22 - 33 mmol/L 10/28/2024 8:08 AM [facility] Anion Gap 12 7 - 17 10/28/2024 8:08 AM [facility] Calcium 8.6(L) 8.7 - 10.5 mg/dL 10/28/2024 8:08 AM [facility] BUN/Creatinine Ratio 11 10.0 - 25.0 Ratio 10/28/2024 8:08 AM [facility] Blood (Plasma/Serum) 10/28/2024 7:00 AM EST 10/28/2024 7:37 AM EST Jonna Donis PA-C [place] [address], [place] [address] * (ABNORMAL) POCT Glucose, Fingerstick (10/28/2024 4:20 AM EST) POC Glucose 109(H) 65 - 99 mg/dL 10/28/2024 4:21 AM EST Blood specimen / Unknown 10/28/2024 4:20 AM EST 10/28/2024 4:21 AM EST Fuad Winter MD POINT OF CARE TEST ORDERABLES Performing Organization Address [facility] Phone [facility] LAB See Below * (ABNORMAL) POCT Glucose, Fingerstick (10/28/2024 12:29 AM EST) POC Glucose 129(H) 65 - 99 mg/dL 10/28/2024 12:30 AM EST Blood specimen / Unknown 10/28/2024 12:29 AM EST 10/28/2024 12:30 AM EST Fuad Winter MD POINT OF CARE TEST ORDERABLES Performing Organization Address [facility] Phone Number [facility] LAB See Below * (ABNORMAL) POCT Glucose, Fingerstick (10/27/2024 8:06 PM EST) POC Glucose 203(H) 65 - 99 mg/dL 10/27/2024 8:10 PM EST Blood specimen / Unknown 10/27/2024 8:06 PM EST 10/27/2024 8:10 PM EST Fuad Winter MD POINT OF CARE TEST ORDERABLES Performing Organization Address [facility] Phone [facility] LAB See Below * (ABNORMAL) POCT Glucose, Fingerstick (10/27/2024 4:20 PM EST) POC Glucose 224(H) 65 - 99 mg/dL 10/27/2024 4:28 PM EST Blood specimen / Unknown 10/27/2024 4:20 PM EST 10/27/2024 4:28 PM EST Fuad Winter MD POINT OF CARE TEST ORDERABLES Performing Organization Address [facility] Phone Number [facility] LAB See Below * (ABNORMAL) Basic Metabolic Panel (Routine) (10/27/2024 3:26 PM EST) Glucose 179(H) 65 - 99 mg/dL 10/27/2024 4:11 PM EST [facility] Comment:Fasting: <100 mg/dL, Non-Fasting: <200 mg/dL (ADA 2005) Blood Urea Nitrogen (BUN) 53(H) 8 - 21 mg/dL 10/27/2024 4:11 PM [facility] Creatinine 4.2(H) 0.5 - 1.3 mg/dL 10/27/2024 4:11 PM [facility] eGFR 14(L) >59 10/27/2024 4:11 PM [facility] Comment:CKD-EPI (2020) in mL /min/1.73 sq meters. Sodium 143 136 - 145 mmol/L 10/27/2024 4:11 PM [facility] Potassium 5.2 3.4 - 5.3 mmol/L 10/27/2024 4:11 PM [facility] Chloride 105 98 - 107 mmol/L 10/27/2024 4:11 PM [facility] CO2 25 22 - 33 mmol/L 10/27/2024 4:11 PM [facility] Anion Gap 13 7 - 17 10/27/2024 4:11 PM [facility] Calcium 8.6(L) 8.7 - 10.5 mg/dL 10/27/2024 4:11 PM [facility] BUN/Creatinine Ratio 13 10.0 - 25.0 Ratio 10/27/2024 4:11 PM [facility] Blood (Plasma/Serum) 10/27/2024 3:26 PM EST 10/27/2024 3:45 PM EST Madhav Ryan MD [place] [address], [place] [address] * (ABNORMAL) POCT Glucose, Fingerstick (10/27/2024 1:13 [...] [facility] Atrial rate 60 BPM EKG [facility] P-R interval 150 ms EKG [facility] QRS duration 84 ms EKG [facility] Q-T interval 488 ms EKG [facility] QTC calculation (Bazett) 488 ms EKG [facility] P axis 45 degrees EKG [facility] [...] LAB BLOOD ORDERAB LES Performing Organization Address [facility] [place] [address], [place] [address] * (ABNORMAL) Phosphorus (AM) (10/27/2024 7:29 AM EST) Phosphorus 4.6(H) 2.7 - 4.5 mg/dL 10/27/2024 8:48 AM EST [facility] Blood (Plasma/Serum) 10/27/2024 7:29 AM EST 10/27/2024 8:24 AM EST Neymar Mcfarland MD LAB BLOOD ORDERAB LES Performing Organization Address [facility] [place] [address], [address] [address] * Magnesium (AM) (10/27/2024 7:29 AM EST) Magnesium 1.8 1.6 - 2.7 mg/dL 10/27/2024 8:48 AM EST [facility] Blood (Plasma/Serum) 10/27/2024 7:29 AM EST 10/27/2024 8:24 AM EST Neymar Mcfarland MD LAB BLOOD ORDERAB LES Performing Organization Address [facility] [place] [address], [place] [address] * (ABNORMAL) Basic Metabolic Panel (AM) (10/27/2024 7:29 AM EST) Glucose 63(L) 65 - 99 mg/dL 10/27/2024 8:48 AM [facility] Comment:Fasting: <100 mg/dL, Non-Fasting: <200 mg/dL (ADA 2004) Blood Urea Nitrogen (BUN) 59(H) 8 - 21 mg/dL 10/27/2024 8:48 AM [facility] Creatinine 4.3(H) 0.5 - 1.3 mg/dL 10/27/2024 8:48 AM [facility] eGFR 13(L) >59 10/27/2024 8:48 AM [facility] Comment:CKD-EPI (2020) in mL /min/1.73 sq meters. Sodium 146(H) 136 - 145 mmol/L 10/27/2024 8:48 AM [facility] Potassium 3.7 3.4 - 5.3 mmol/L 10/27/2024 8:48 AM [facility] Chloride 107 98 - 107 mmol/L 10/27/2024 8:48 AM [facility] CO2 24 22 - 33 mmol/L 10/27/2024 8:48 AM [facility] Anion Gap 15 7 - 17 10/27/2024 8:48 AM [facility] Calcium 8.4(L) 8.7 - 10.5 mg/dL 10/27/2024 8:48 AM [facility] BUN/Creatinine Ratio 14 10.0 - 25.0 Ratio 10/27/2024 8:48 AM [facility] Blood (Plasma/Serum) 10/27/2024 7:29 AM EST 10/27/2024 8:24 AM EST Neymar Mcfarland MD [place] [address], [place] [address] * (ABNORMAL) Complete Blood Count WITHOUT Differential - in AM (10/27/2024 7:29 AM EST) [facility] White Blood Cell Count 9.2 4.0 - 11.0 Thou/uL 10/27/2024 8:38 AM [facility] Platelet Count 321 150 - 450 Thou/uL 10/27/2024 8:38 AM [facility] Hemoglobin 9.0(L) 13.0 - 17.7 g/dL 10/27/2024 8:38 AM [facility] Hematocrit 29.8(L) 39.0 - 54.0 % 10/27/2024 8:38 AM [facility] Red Blood Cell Count 2.95(L) 4.50 - 6.20 Mil/uL 10/27/2024 8:38 AM [facility] MCV 101(H) 80 - 100 fL 10/27/2024 8:38 AM [facility] MCH 30.5 27.0 - 31.0 pg 10/27/2024 8:38 AM [facility] MCHC 30.2 30.0 - 36.0 g/dL 10/27/2024 8:38 AM [facility] RDW 16.9(H) 11.5 - 14.5 % 10/27/2024 8:38 AM [facility] MPV 11.6 7.5 - 12.5 fL 10/27/2024 8:38 AM [facility] Blood Blood specimen / Unknown 10/27/2024 7:29 AM EST 10/27/2024 8:24 AM EST Neymar Mcfarland MD LAB BLOOD ORDERAB LES [facility] Organization Address City/State/[facility] [place] [address], [place] [address] * POCT Glucose, Fingerstick (10/27/2024 4:02 AM EST) [facility] POC Glucose 90 65 - 99 mg/dL 10/27/2024 4:03 AM EST Blood specimen / Unknown 10/27/2024 4:02 AM EST 10/27/2024 4:03 AM EST Fuad Winter MD POINT OF CARE TEST ORDERABLES Performing Organization Address [facility] Phone Number HOSPITAL LAB See Below * (ABNORMAL) POCT Glucose, Fingerstick (10/27/2024 1:20 AM EST) POC Glucose 155(H) 65 - 99 mg/dL 10/27/2024 1:25 AM EST Blood specimen / Unknown 10/27/2024 1:20 AM EST 10/27/2024 1:25 AM EST Fuad Winter MD POINT OF CARE TEST ORDERABLES Performing Organization Address [facility] Phone Number HOSPITAL LAB See Below * POCT Glucose, Fingerstick (10/27/2024 12:29 AM EST) POC Glucose 74 65 - 99 mg/dL 10/27/2024 12:30 AM EST Blood specimen / Unknown 10/27/2024 12:29 AM EST 10/27/2024 12:30 AM EST Fuad Winter MD POINT OF CARE TEST ORDERABLES Performing Organization Address [facility] Phone Number [facility] LAB See Below * (ABNORMAL) POCT Glucose, Fingerstick (10/26/2024 8:11 PM EST) POC Glucose 120(H) 65 - 99 mg/dL 10/26/2024 8:12 PM EST Blood specimen / Unknown 10/26/2024 8:11 PM EST 10/26/2024 8:12 PM EST Fuad Winter MD POINT OF CARE TEST ORDERABLES Performing Organization Address [facility] Co wy Phone Number HOSPITAL LAB See Below * [...] LAB BLOOD ORDERAB LES Performing Organization Address [facility] [place] [address], [place] [address] * POCT Glucose, Fingerstick (10/26/2024 8:48 AM EST) POC Glucose 90 65 - 99 mg/dL 10/26/2024 8:49 AM EST Blood specimen / Unknown 10/26/2024 8:48 AM EST 10/26/2024 8:49 AM EST Fuad Winter MD POINT OF CARE TEST ORDERABLES HOSPITAL LAB See Below * Heparin Assay (Anti Xa) (10/26/2024 6:18 AM EST) [facility] Signature Anti Xa 0.49 IU/mL 10/26/2024 [...] LAB BLOOD ORDERAB LES Performing Organization Address City/[facility] [place] [address], [place] [address] * Phosphorus (AM) (10/26/2024 6:18 AM EST) Phosphorus 4.2 2.7 - 4.5 mg/dL 10/26/2024 7:45 AM EST [facility] Blood (Plasma/Serum) 10/26/2024 6:18 AM EST 10/26/2024 7:22 AM EST Nemyar Mcfarland MD LAB BLOOD ORDERAB LES Performing Organization Address [facility] [place] [address], [place] [address] * Magnesium (AM) (10/26/2024 6:18 AM EST) Magnesium 1.9 1.6 - 2.7 mg/dL 10/26/2024 7:45 AM EST [facility] Blood (Plasma/Serum) 10/26/2024 6:18 AM EST 10/26/2024 7:22 AM EST Neymar Mcfarland MD LAB BLOOD ORDERAB LES Performing Organization Address [facility] [place] [address], [place] [address] * (ABNORMAL) Basic Metabolic Panel (AM) (10/26/2024 6:18 AM EST) Glucose 79 65 - 99 mg/dL 10/26/2024 7:45 AM [facility] Comment:Fasting: <100 mg/dL, Non-Fasting: <200 mg/dL (ADA 2004) Blood Urea Nitrogen (BUN) 61(H) 8 - 21 mg/dL 10/26/2024 7:45 AM [facility] Creatinine 4.0(H) 0.5 - 1.3 mg/dL 10/26/2024 7:45 AM [facility] eGFR 14(L) >59 10/26/2024 7:45 AM [facility] Comment:CKD-EPI (2020) in mL /min/1.73 sq meters. Sodium 145 136 - 145 mmol/L 10/26/2024 7:45 AM [facility] Potassium 4.2 3.4 - 5.3 mmol/L 10/26/2024 7:45 AM [facility] Chloride 107 98 - 107 mmol/L 10/26/2024 7:45 AM [facility] CO2 23 22 - 33 mmol/L 10/26/2024 7:45 AM [facility] Anion Gap 15 7 - 17 10/26/2024 7:45 AM [facility] Calcium 7.9(L) 8.7 - 10.5 mg/dL 10/26/2024 7:45 AM [facility] BUN/Creatinine Ratio 15 10.0 - 25.0 Ratio 10/26/2024 7:45 AM [facility] Blood (Plasma/Serum) 10/26/2024 6:18 AM EST 10/26/2024 7:22 AM EST Neymar Mcfarland MD [place] [address], [address] [address] * (ABNORMAL) Complete Blood Count WITHOUT Differential - in AM (10/26/2024 6:18 AM EST) White Blood Cell Count 9.7 4.0 - 11.0 Thou/uL 10/26/2024 7:29 AM [facility] Platelet Count 328 150 - 450 Thou/uL 10/26/2024 7:29 AM [facility] Hemoglobin 8.6(L) 13.0 - 17.7 g/dL 10/26/2024 7:29 AM [facility] Hematocrit 27.9(L) 39.0 - 54.0 % 10/26/2024 7:29 AM [facility] Red Blood Cell Count 2.78(L) 4.50 - 6.20 Mil/uL 10/26/2024 7:29 AM [facility] MCV 100 80 - 100 fL 10/26/2024 7:29 AM [facility] MCH 30.9 27.0 - 31.0 pg 10/26/2024 7:29 AM [facility] MCHC 30.8 30.0 - 36.0 g/dL 10/26/2024 7:29 AM [facility] RDW 16.8(H) 11.5 - 14.5 % 10/26/2024 7:29 AM [facility] MPV 11.6 7.5 - 12.5 fL 10/26/2024 7:29 AM [facility] Blood Blood specimen / Unknown 10/26/2024 6:18 AM EST 10/26/2024 7:22 AM EST Neymar Mcfarland MD [place] [address], [place] [address] * (ABNORMAL) POCT Glucose, Fingerstick (10/26/2024 3:58 [...] Assay (Anti Xa) (10/25/2024 11:35 PM EST) [facility] Anti Xa 0.44 IU/mL 10/26/2024 12:23 [...] LAB BLOOD ORDERAB LES Performing Organization Address [facility] [place] [address], [place] [address] * (ABNORMAL) POCT Glucose, Fingerstick (10/25/2024 8:20 PM EST) [facility] POC Glucose 222(H) 65 - 99 [...] LAB BLOOD ORDERAB LES Performing Organization Address [facility] [place] [address], [place] [address] * (ABNORMAL) High Sensitivity Troponin T (now and in 3 hours) (10/25/2024 5:03 PM EST) High Sensitivity Troponin T 2,468(HH) <23 ng/L 10/25/2024 6:02 PM [facility] Comment:Recurring Critical R esult. Previously phoned. Delta (Change) 135(H) <3 10/25/2024 6:02 PM [facility] Comment:Decreased Blood (Plasma/Serum) 10/25/2024 5:03 PM EST 10/25/2024 5:25 PM EST Neymar Mcfarland MD LAB BLOOD ORDERAB LES Performing Organization Address [facility] [place] [address], [place] [address] * (ABNORMAL) High Sensitivity Troponin T (now and in 3 hours) (10/25/2024 3:38 PM EST) High Sensitivity Troponin T 2,413(HH) <23 ng/L 10/25/2024 4:21 PM [facility] Comment:Recurring Critical R esult. Previously phoned. Delta (Change) 190(H) <3 10/25/2024 4:21 PM [facility] Comment:Decreased Blood (Plasma/Serum) 10/25/2024 3:38 PM EST 10/25/2024 3:48 PM EST Neymar Mcfarland MD LAB BLOOD ORDERAB LES Performing Organization Address [facility] [place] [address], [place] [address] * (ABNORMAL) High Sensitivity Troponin T (10/25/2024 12:47 PM EST) High Sensitivity Troponin T 2,394(HH) <23 ng/L 10/25/2024 2:04 PM [facility] Comment:Recurring Critical R esult. Previously phoned. Delta (Change) 209(H) <3 10/25/2024 2:04 PM [facility] Comment:Decreased Plasma/Serum 10/25/2024 12:4 7 PM EST 10/25/2024 1:34 PM EST Bryant Gracia PA-C LAB BLOOD ORDERABLES Performing Organization Address [facility] [place] [address], [place] [address] * Heparin Assay (Anti Xa) (10/25/2024 12:47 PM EST) Anti Xa 0.47 IU/mL 10/25/2024 2:06 PM [facility] Comment: (NOTE) Heparin Thromboembolic/Standard/Full Dose [...] LAB BLOOD ORDERAB LES Performing Organization Address City/State/[facility] [place] [address], [place] [address] * (ABNORMAL) POCT Glucose, Fingerstick (10/25/2024 12:33 [...] [facility] Atrial rate 76 BPM EKG [facility] P-R interval 152 ms EKG [facility] QRS duration 82 ms EKG [facility] Q-T interval 450 ms EKG [facility] QTC calculation (Bazett) 506 ms EKG [facility] P axis 67 degrees EKG [facility] R axis 69 degrees EKG [facility] T axis 237 degrees EKG [facility] 10/25/2024 10:4 4 AM EST Narrative EKG [facility] - 10/25/2024 8:09 PM EST Normal sinus rhythm ST & T wave abnormality, consider lateral ischemia Prolonged QT Abnormal ECG When compared with ECG of 23-Oct-2024 17:43, Nonspecific T wave abnormality, worse in Inferior leads T wave inversion less evident in Lateral leads Confirmed by DO Ladd Kyla ([id number]) on 10/25/2024 8:09:06 PM Procedure Note Jessica Ladd DO - 10/25/[address] & T wave abnormality, consider lateral ischemia Prolonged QT Abnormal ECG When compared with ECG of 23-Oct-2024 17:43, Nonspecific T wave abnormality, worse in Inferior leads T wave inversion less evident in Lateral leads Confirmed by DO Ladd Kyla ([id number]) on 10/25/2024 8:09:06 PM Fuad Winter MD [...] BLOOD ORDERABLES [facility] [address] [place] [address], [address] [address] * (ABNORMAL) POCT Glucose, Fingerstick (10/25/2024 9:20 AM EST) [facility] POC Glucose 129(H) 65 - 99 mg/dL 10/25/2024 9:21 AM EST Blood specimen / Unknown 10/25/2024 9:20 AM EST 10/25/2024 9:21 AM EST Fuad Winter MD POINT OF CARE TEST ORDERABLES HOSPITAL LAB See Below * CREATINE KINASE (CK) (10/25/2024 8:27 AM EST) [facility] Creatine Kinase (CK) 76 24 - 204 U/L 10/25/2024 10:25 AM EST [facility] Plasma/Serum 10/25/2024 8:27 AM EST 10/25/2024 9:16 AM EST Neymar Mcfarland MD LAB BLOOD ORDERAB LES Performing Organization Address [facility] [place] [address], [place] [address] * (ABNORMAL) High Sensitivity Troponin T (10/25/2024 8:27 AM EST) [facility] High Sensitivity Troponin T 2,603(HH) <23 ng/L 10/25/2024 10:25 AM EST [facility] Delta (Change) NO PREVIOUS RESULT <3 10/25/2024 10:25 AM EST [facility] Plasma/Serum 10/25/2024 8:27 AM EST 10/25/2024 9:16 AM EST Neymar Mcfarland MD LAB BLOOD ORDERAB LES Performing Organization Address [facility] [place] [address], [place] [address] * Phosphorus (AM) (10/25/2024 8:27 AM EST) Phosphorus 3.8 2.7 - 4.5 mg/dL 10/25/2024 10:25 AM [facility] Blood (Plasma/Serum) 10/25/2024 8:27 AM EST 10/25/2024 9:16 AM EST Neymar Mcfarland MD LAB BLOOD ORDERAB LES Performing Organization Address City/[facility]/[place] [address], [place] [address] * Magnesium (AM) (10/25/2024 8:27 AM EST) Magnesium 2.0 1.6 - 2.7 mg/dL 10/25/2024 10:25 AM [facility] Blood (Plasma/Serum) 10/25/2024 8:27 AM EST 10/25/2024 9:16 AM EST Neymar Mcfarland MD LAB BLOOD ORDERAB LES Performing Organization Address City/[facility] [place] [address], [place] [address] * (ABNORMAL) Basic Metabolic Panel (AM) (10/25/2024 8:27 AM EST) Glucose 123(H) 65 - 99 mg/dL 10/25/2024 10:25 AM [facility] Comment:Fasting: <100 mg/dL, Non-Fasting: <200 mg/dL (ADA 2004) Blood Urea Nitrogen (BUN) 64(H) 8 - 21 mg/dL 10/25/2024 10:25 AM [facility] Creatinine 3.9(H) 0.5 - 1.3 mg/dL 10/25/2024 10:25 AM [facility] eGFR 15(L) >59 10/25/2024 10:25 AM [facility] Comment:CKD-EPI (2020) in mL /min/1.73 sq meters. Sodium 141 136 - 145 mmol/L 10/25/2024 10:25 AM [facility] Potassium 4.6 3.4 - 5.3 mmol/L 10/25/2024 10:25 AM [facility] Chloride 104 98 - 107 mmol/L 10/25/2024 10:25 AM [facility] CO2 21(L) 22 - 33 mmol/L 10/25/2024 10:25 AM [facility] Anion Gap 16 7 - 17 10/25/2024 10:25 AM [facility] Calcium 7.8(L) 8.7 - 10.5 mg/dL 10/25/2024 10:25 AM [facility] BUN/Creatinine Ratio 16 10.0 - 25.0 Ratio 10/25/2024 10:25 AM [facility] Blood (Plasma/Serum) 10/25/2024 8:27 AM EST 10/25/2024 9:16 AM EST Neymar Mcfarland MD LAB BLOOD ORDERAB LES Performing Organization Address City/State/[facility] [place] [address], [place] [address] * (ABNORMAL) Complete Blood Count WITHOUT Differential - in AM (10/25/2024 8:27 AM EST) White Blood Cell Count 12.5(H) 4.0 - 11.0 Thou/uL 10/25/2024 9:39 AM [facility] Platelet Count 361 150 - 450 Thou/uL 10/25/2024 9:39 AM [facility] Hemoglobin 9.2(L) 13.0 - 17.7 g/dL 10/25/2024 9:39 AM [facility] Hematocrit 29.9(L) 39.0 - 54.0 % 10/25/2024 9:39 AM [facility] Red Blood Cell Count 3.01(L) 4.50 - 6.20 Mil/uL 10/25/2024 9:39 AM [facility] MCV 99 80 - 100 fL 10/25/2024 9:39 AM [facility] MCH 30.6 27.0 - 31.0 pg 10/25/2024 9:39 AM [facility] MCHC 30.8 30.0 - 36.0 g/dL 10/25/2024 9:39 AM [facility] RDW 16.7(H) 11.5 - 14.5 % 10/25/2024 9:39 AM [facility] MPV 11.3 7.5 - 12.5 fL 10/25/2024 9:39 AM [facility] Blood Blood specimen / Unknown 10/25/2024 8:27 AM EST 10/25/2024 9:16 AM EST Nyemar Mcfarland MD LAB BLOOD ORDERAB LES Performing Organization Address City/State/[facility] Co de Phone Number [facility] [address] [place] [address], [facility] [address] [place] [address] * Heparin Assay (Anti Xa) (10/25/2024 5:21 AM EST) Anti Xa 0.51 IU/mL 10/25/2024 5:55 AM [facility] Comment: (NOTE) Heparin Thromboembolic/Standard/Full Dose [...] LAB BLOOD ORDERAB LES Performing Organization Address [facility] [place] [address], [place] [address] * (ABNORMAL) POCT Glucose, Fingerstick (10/25/2024 5:15 AM EST) [facility] POC Glucose 115(H) 65 - 99 mg/dL 10/25/2024 5:15 AM EST Blood specimen / Unknown 10/25/2024 5:15 AM EST 10/25/2024 5:16 AM EST Fuad Winter MD POINT OF CARE TEST ORDERABLES Performing Organization Address [facility] Co de Phone Number HOSPITAL LAB See [...] LAB BLOOD ORDERAB LES Performing Organization Address [facility] [place] [address], [place] [address] * (ABNORMAL) POCT Glucose, Fingerstick (10/24/2024 8:23 PM EST) Pathologist [facility] POC Glucose 211(H) 65 - 99 mg/dL 10/24/2024 8:24 PM EST Blood specimen / Unknown 10/24/2024 8:23 PM EST 10/24/2024 8:24 PM EST Fuad Winter MD POINT OF CARE TEST ORDERABLES Performing Organization Address [facility] de Phone Number HOSPITAL LAB See Below [...] LAB BLOOD ORDERAB LES Performing Organization Address [facility] Co de Phone Number [address] [address], [facility] [address] [place] [address] * (ABNORMAL) POCT Glucose, Fingerstick (10/24/2024 4:07 PM EST) POC Glucose 152(H) 65 - 99 mg/dL 10/24/2024 4:09 PM EST Blood specimen / Unknown 10/24/2024 4:07 PM EST 10/24/2024 4:09 PM EST Fuad Winter MD POINT OF CARE TEST ORDERABLES Performing Organization Address [facility] Co de Phone Number HOSPITAL LAB See Below * (ABNORMAL) POCT Glucose, Fingerstick (10/24/2024 11:13 AM EST) POC Glucose 158(H) 65 - 99 mg/dL 10/24/2024 11:14 AM EST Blood specimen / Unknown 10/24/2024 11:13 AM EST 10/24/2024 11:14 AM EST Fuad Winter MD POINT OF CARE TEST ORDERABLES Performing Organization Address [facility] Phone Number HOSPITAL LAB [...] OF CARE TEST ORDERABLES Performing Organization Address City/[facility]/ZIP Co de Phone Number HOSPITAL LAB [...] MD LAB BLOOD ORDERABLES Performing Organization Address [facility]/[place] [address], [place] [address] * Heparin Assay (Anti Xa) (10/24/2024 7:11 AM EST) [facility] Anti Xa 0.17 IU/mL 10/24/2024 8:02 [...] MD LAB BLOOD ORDERABLES Performing Organization Address [facility]/[place] [address], [place] [address] * Phosphorus (AM) (10/24/2024 7:11 AM EST) Phosphorus 4.5 2.7 - 4.5 mg/dL 10/24/2024 8:15 AM EST [facility] Blood (Plasma/Serum) 10/24/2024 7:11 AM EST 10/24/2024 7:48 AM EST Neymar Mcfarland MD LAB BLOOD ORDERAB LES Performing Organization Address [facility]/[place] [address], [place] [address] * Magnesium (AM) (10/24/2024 7:11 AM EST) Magnesium 1.8 1.6 - 2.7 mg/dL 10/24/2024 8:15 AM [facility] Blood (Plasma/Serum) 10/24/2024 7:11 AM EST 10/24/2024 7:48 AM EST Neymar Mcfarland MD LAB BLOOD ORDERAB LES Performing Organization Address City/[facility] [place] [address], [place] [address] * (ABNORMAL) Basic Metabolic Panel (AM) (10/24/2024 7:11 AM EST) Glucose 149(H) 65 - 99 mg/dL 10/24/2024 8:15 AM [facility] Comment:Fasting: <100 mg/dL, Non-Fasting: <200 mg/dL (ADA 2005) Blood Urea Nitrogen (BUN) 68(H) 8 - 21 mg/dL 10/24/2024 8:15 AM [facility] Creatinine 4.0(H) 0.5 - 1.3 mg/dL 10/24/2024 8:15 AM [facility] eGFR 14(L) >59 10/24/2024 8:15 AM [facility] Comment:CKD-EPI (2020) in mL /min/1.73 sq meters. Sodium 143 136 - 145 mmol/L 10/24/2024 8:15 AM [facility] Potassium 4.9 3.4 - 5.3 mmol/L 10/24/2024 8:15 AM [facility] Chloride 105 98 - 107 mmol/L 10/24/2024 8:15 AM [facility] CO2 19(L) 22 - 33 mmol/L 10/24/2024 8:15 AM [facility] Anion Gap 19(H) 7 - 17 10/24/2024 8:15 AM [facility] Calcium 7.8(L) 8.7 - 10.5 mg/dL 10/24/2024 8:15 AM [facility] BUN/Creatinine Ratio 17 10.0 - 25.0 Ratio 10/24/2024 8:15 AM [facility] Blood (Plasma/Serum) 10/24/2024 7:11 AM EST 10/24/2024 7:48 AM EST Neymar Mcfarland MD LAB BLOOD ORDERAB LES Performing Organization Address City/State/[facility] [place] [address], [place] [address] * (ABNORMAL) Complete Blood Count WITHOUT Differential - in AM (10/24/2024 7:11 AM EST) White Blood Cell Count 12.4(H) 4.0 - 11.0 Thou/uL 10/24/2024 7:58 AM [facility] Platelet Count 360 150 - 450 Thou/uL 10/24/2024 7:58 AM [facility] Hemoglobin 9.3(L) 13.0 - 17.7 g/dL 10/24/2024 7:58 AM [facility] Hematocrit 30.1(L) 39.0 - 54.0 % 10/24/2024 7:58 AM [facility] Red Blood Cell Count 3.06(L) 4.50 - 6.20 Mil/uL 10/24/2024 7:58 AM [facility] MCV 98 80 - 100 fL 10/24/2024 7:58 AM [facility] MCH 30.4 27.0 - 31.0 pg 10/24/2024 7:58 AM [facility] MCHC 30.9 30.0 - 36.0 g/dL 10/24/2024 7:58 AM [facility] RDW 16.8(H) 11.5 - 14.5 % 10/24/2024 7:58 AM [facility] MPV 11.3 7.5 - 12.5 fL 10/24/2024 7:58 AM [facility] Blood Blood specimen / Unknown 10/24/2024 7:11 AM EST 10/24/2024 7:48 AM EST Neymar Mcfarland MD LAB BLOOD ORDERAB LES Performing Organization Address City/[facility]/[place] [address], [place] [address] * Phosphorus (Early AM) (10/24/2024 3:01 AM EST) Phosphorus 3.8 2.7 - 4.5 mg/dL 10/24/2024 3:36 AM [facility] Blood (Plasma/Serum) 10/24/2024 3:01 AM EST 10/24/2024 3:12 AM EST Macy Adam DO LAB BLOOD ORDERABLE S Performing Organization Address City/[facility]/[place] [address], [place] [address] * Magnesium (Routine) (10/24/2024 3:01 AM EST) Magnesium 1.8 1.6 - 2.7 mg/dL 10/24/2024 3:36 AM [facility] Blood (Plasma/Serum) 10/24/2024 3:01 AM EST 10/24/2024 3:12 AM EST Macy Adam [place] [address], [place] [address] * (ABNORMAL) Basic Metabolic Panel (Routine) (10/24/2024 3:01 AM EST) Glucose 128(H) 65 - 99 mg/dL 10/24/2024 3:36 AM [facility] Comment:Fasting: <100 mg/dL, Non-Fasting: <200 mg/dL (ADA 2005) Blood Urea Nitrogen (BUN) 67(H) 8 - 21 mg/dL 10/24/2024 3:36 AM [facility] Creatinine 3.8(H) 0.5 - 1.3 mg/dL 10/24/2024 3:36 AM [facility] eGFR 15(L) >59 10/24/2024 3:36 AM [facility] Comment:CKD-EPI (2020) in mL /min/1.73 sq meters. Sodium 143 136 - 145 mmol/L 10/24/2024 3:36 AM [facility] Potassium 4.4 3.4 - 5.3 mmol/L 10/24/2024 3:36 AM [facility] Chloride 107 98 - 107 mmol/L 10/24/2024 3:36 AM [facility] CO2 18(L) 22 - 33 mmol/L 10/24/2024 3:36 AM [facility] Anion Gap 18(H) 7 - 17 10/24/2024 3:36 AM [facility] Calcium 7.4(L) 8.7 - 10.5 mg/dL 10/24/2024 3:36 AM [facility] BUN/Creatinine Ratio 18 10.0 - 25.0 Ratio 10/24/2024 3:36 AM EST [facility] Blood (Plasma/Serum) 10/24/2024 3:01 AM EST 10/24/2024 3:12 AM EST Macy Adam DO LAB BLOOD ORDERABLE S Performing Organization Address [facility] de Phone Number [facility] [address] [place] [address], [facility] [address] [place] [address] * (ABNORMAL) POCT Glucose, Fingerstick (10/24/2024 1:53 AM EST) POC Glucose 155(H) 65 - 99 mg/dL 10/24/2024 3:46 AM EST Blood specimen / Unknown 10/24/2024 1:53 AM EST 10/24/2024 3:46 AM EST Fuad Winter MD POINT OF CARE TEST ORDERABLES Performing Organization Address [facility] Co de Phone Number HOSPITAL LAB See [...] LAB BLOOD ORDERAB LES Performing Organization Address [facility]/State/[facility] [place] [address], [place] [address] * (ABNORMAL) POCT Glucose, Fingerstick (10/23/2024 9:02 [...] OF CARE TEST ORDERABLES Performing Organization Address City/[facility]/ZIP Co de Phone Number HOSPITAL LAB See Below * Magnesium (STAT) (10/23/2024 6:02 PM EST) [facility] Magnesium 1.8 1.6 - 2.7 mg/dL 10/23/2024 7:21 PM EST [facility] Blood (Plasma/Serum) 10/23/2024 6:02 PM EST 10/23/2024 6:47 PM EST Adam Mullen MD LAB BLOOD ORDERABL ES Performing Organization Address [facility] [place] [address], [place] [address] * Phosphorus (STAT) (10/23/2024 6:02 PM EST) [facility] Phosphorus 3.9 2.7 - 4.5 mg/dL 10/23/2024 7:21 PM EST [facility] Blood (Plasma/Serum) 10/23/2024 6:02 PM EST 10/23/2024 6:47 PM EST Adam Mullen MD LAB BLOOD ORDERABL ES Performing Organization Address [facility] [place] [address], [place] [address] * (ABNORMAL) Basic Metabolic Panel (STAT) (10/23/2024 6:02 PM EST) Glucose 173(H) 65 - 99 mg/dL 10/23/2024 7:21 PM [facility] Comment:Fasting: <100 mg/dL, Non-Fasting: <200 mg/dL (ADA 2004) Blood Urea Nitrogen (BUN) 71(H) 8 - 21 mg/dL 10/23/2024 7:21 PM [facility] Creatinine 4.1(H) 0.5 - 1.3 mg/dL 10/23/2024 7:21 PM [facility] eGFR 14(L) >59 10/23/2024 7:21 PM [facility] Comment:CKD-EPI (2020) in mL /min/1.73 sq meters. Sodium 145 136 - 145 mmol/L 10/23/2024 7:21 PM [facility] Potassium 5.0 3.4 - 5.3 mmol/L 10/23/2024 7:21 PM [facility] Chloride 109(H) 98 - 107 mmol/L 10/23/2024 7:21 PM [facility] CO2 21(L) 22 - 33 mmol/L 10/23/2024 7:21 PM [facility] Anion Gap 15 7 - 17 10/23/2024 7:21 PM [facility] Calcium 7.0(L) 8.7 - 10.5 mg/dL 10/23/2024 7:21 PM [facility] BUN/Creatinine Ratio 17 10.0 - 25.0 Ratio 10/23/2024 7:21 PM [facility] Blood (Plasma/Serum) 10/23/2024 6:02 PM EST 10/23/2024 6:47 PM EST Adam Mullen MD [place] [address], [place] [address] * ECG 12 lead (STAT) (10/23/2024 5:43 PM EST) Ventricular rate 73 BPM EKG [facility] Atrial rate 73 BPM EKG [facility] P-R interval 148 ms EKG [facility] QRS duration 80 ms EKG [facility] Q-T interval 460 ms EKG [facility] QTC calculation (Bazett) 507 ms EKG [facility] P axis 54 degrees EKG [facility] R axis 66 degrees EKG [facility] T axis 152 degrees EKG [facility] 10/23/2024 5:43 PM EST Narrative EKG [facility] - 10/24/2024 7:46 AM EST Normal sinus rhythm Nonspecific T wave abnormality Prolonged QT Abnormal ECG Confirmed by MD Wade John ([id number]) on 10/24/2024 7:46:04 AM Procedure Note Raciel Wade MD - 10/24/2024 Normal sinus rhythm Nonspecific T wave abnormality Prolonged QT Abnormal ECG Confirmed by MD Wade John ([id number]) on 10/24/2024 7:46:04 AM Bryant Gracia PA-C [...] LAB BLOOD ORDERAB LES Performing Organization Address [facility]/State/[facility] [place] [address], [place] [address] * (ABNORMAL) POCT Glucose, Fingerstick (10/23/2024 12:59 PM EST) POC Glucose 158(H) 65 - 99 mg/dL 10/23/2024 1:00 PM EST Blood specimen / Unknown 10/23/2024 12:59 PM EST 10/23/2024 1:00 PM EST Fuad Winter MD POINT OF CARE TEST ORDERABLES HOSPITAL LAB See Below * Albumin (10/23/2024 10:31 AM EST) Albumin 3.5 3.4 - 4.8 g/dL 10/23/2024 12:13 PM [facility] Blood (Plasma/Serum) 10/23/2024 10:31 AM EST 10/23/2024 11:36 AM EST Neymar Mcfarland MD LAB BLOOD ORDERAB LES Performing Organization Address [facility] [place] [address], [place] [address] * (ABNORMAL) Calcium, Ionized (10/23/2024 10:31 AM EST) Calcium, Ionized 0.88(L) 1.17 - 1.33 mmol/L 10/23/2024 12:16 PM [facility] Blood Blood specimen / Unknown 10/23/2024 10:31 AM EST 10/23/2024 11:36 AM EST Neymar Mcfarland MD LAB BLOOD ORDERAB LES Performing Organization Address [facility] [place] [address], [place] [address] * (ABNORMAL) Calcium, Total (10/23/2024 10:31 AM EST) Calcium 7.4(L) 8.7 - 10.5 mg/dL 10/23/2024 12:13 PM [facility] Blood (Plasma/Serum) 10/23/2024 10:31 AM EST 10/23/2024 11:36 AM EST Neymar Mcfarland MD LAB BLOOD ORDERAB LES Performing Organization Address City/[facility]/[place] [address], [address] [address] * (ABNORMAL) PTH, Intact (10/23/2024 10:31 AM EST) PTH, Intact 579(H) 15 - 65 pg/mL 10/23/2024 12:23 PM EST [facility] Blood (Plasma/Serum) 10/23/2024 10:31 AM EST 10/23/2024 11:36 AM EST Neymar Mcfarland MD LAB BLOOD ORDERAB LES Performing Organization Address [facility]/[place] [address], [place] [address] * POCT Glucose, Fingerstick (10/23/2024 8:36 AM EST) Pathologist [facility] POC Glucose 82 65 - 99 mg/dL 10/23/2024 8:37 AM EST Blood specimen / Unknown 10/23/2024 8:36 AM EST 10/23/2024 8:37 AM EST Fuad Winter MD POINT OF CARE TEST ORDERABLES HOSPITAL LAB See Below * (ABNORMAL) LIPID PANEL (10/23/2024 6:05 AM EST) Cholesterol, Total 110 <200 mg/dL 2024 8:30 AM [facility] Triglycerides 141 <150 mg/dL 10/23/2024 8:30 AM [facility] Cholesterol, HDL 30(L) >39 mg/dL 10/23/19 8:30 AM [facility] Estimated LDL 52 <130 mg/dL 10/23/2024 8:30 AM [facility] Comment: NCEP Guidelines: ?< 100 mg/dL ??Optimal 100 - 129 mg/dL ??Near Optimal/Above Optimal 130 - 159 mg/dL ??Borderline High 160 - 189 mg/dL ??High ??>/= 190 mg/dL ??Very High Cholesterol/HDL Ratio 3.7 0.0 - 5.0 Ratio 10/23/2024 8:30 AM [facility] Comment: Relative Risk ? Ratio - Male ? Ratio - Female ?0.5 ?3.4 ?3.3 ?1.0 ?5.0 ?4.4 ?2.0 ?9.6 ?7.1 ?3.0 ? 23.4 ? 11.0 Plasma/Serum 10/23/2024 6:05 AM EST 10/23/2024 7:46 AM EST Adilia Woo MD LAB BLOOD ORDERABLES Performing Organization Address City/State/[facility] [place] [address], [place] [address] * Heparin Assay (Anti Xa) (10/23/2024 6:05 AM EST) Anti Xa 0.54 IU/mL 10/23/2024 8:02 AM [facility] Comment: (NOTE) Heparin Thromboembolic/Standard/Full Dose [...] MD LAB BLOOD ORDERABLES Performing Organization Address City/State/[facility] [place] [address], [place] [address] * Phosphorus (AM) (10/23/2024 6:05 AM EST) Phosphorus 3.9 2.7 - 4.5 mg/dL 10/23/2024 8:30 AM [facility] Blood (Plasma/Serum) 10/23/2024 6:05 AM EST 10/23/2024 7:46 AM EST Neymar Mcfarland MD LAB BLOOD ORDERAB LES Performing Organization Address [facility] [place] [address], [place] [address] * Magnesium (AM) (10/23/2024 6:05 AM EST) Magnesium 1.8 1.6 - 2.7 mg/dL 10/23/2024 8:30 AM [facility] Blood (Plasma/Serum) 10/23/2024 6:05 AM EST 10/23/2024 7:46 AM EST Neymar Mcfarland MD LAB BLOOD ORDERAB LES Performing Organization Address City/[facility] [place] [address], [place] [address] * (ABNORMAL) Basic Metabolic Panel (AM) (10/23/2024 6:05 AM EST) Glucose 66 65 - 99 mg/dL 10/23/2024 8:30 AM [facility] Comment:Fasting: <100 mg/dL, Non-Fasting: <200 mg/dL (ADA 2005) Blood Urea Nitrogen (BUN) 74(H) 8 - 21 mg/dL 10/23/2024 8:30 AM [facility] Creatinine 4.1(H) 0.5 - 1.3 mg/dL 10/23/2024 8:30 AM [facility] eGFR 14(L) >59 10/23/2024 8:30 AM [facility] Comment:CKD-EPI (2020) in mL /min/1.73 sq meters. Sodium 147(H) 136 - 145 mmol/L 10/23/2024 8:30 AM [facility] Potassium 4.0 3.4 - 5.3 mmol/L 10/23/2024 8:30 AM [facility] Chloride 110(H) 98 - 107 mmol/L 10/23/2024 8:30 AM [facility] CO2 18(L) 22 - 33 mmol/L 10/23/2024 8:30 AM [facility] Anion Gap 19(H) 7 - 17 10/23/2024 8:30 AM [facility] Calcium 7.3(L) 8.7 - 10.5 mg/dL 10/23/2024 8:30 AM [facility] BUN/Creatinine Ratio 18 10.0 - 25.0 Ratio 10/23/2024 8:30 AM [facility] Blood (Plasma/Serum) 10/23/2024 6:05 AM EST 10/23/2024 7:46 AM EST Neymar Mcfarland MD [place] [address], [place] [address] * (ABNORMAL) Complete Blood Count WITHOUT Differential - in AM (10/23/2024 6:05 AM EST) White Blood Cell Count 11.2(H) 4.0 - 11.0 Thou/uL 10/23/2024 8:29 AM [facility] Platelet Count 374 150 - 450 Thou/uL 10/23/2024 8:29 AM [facility] Hemoglobin 9.6(L) 13.0 - 17.7 g/dL 10/23/2024 8:29 AM [facility] Hematocrit 30.5(L) 39.0 - 54.0 % 10/23/2024 8:29 AM [facility] Red Blood Cell Count 3.17(L) 4.50 - 6.20 Mil/uL 10/23/2024 8:29 AM [facility] MCV 96 80 - 100 fL 10/23/2024 8:29 AM [facility] MCH 30.3 27.0 - 31.0 pg 10/23/2024 8:29 AM [facility] MCHC 31.5 30.0 - 36.0 [...] LAB BLOOD ORDERAB LES Performing Organization Address City/[facility]/[place] [address], [place] [address] * POCT Glucose, Fingerstick (10/23/2024 1:59 AM EST) POC Glucose 83 65 - 99 mg/dL 10/23/2024 2:00 AM EST Blood specimen / Unknown 10/23/2024 1:59 AM EST 10/23/2024 2:00 AM EST Fuad Winter MD POINT OF CARE TEST ORDERABLES Performing Organization Address City/[facility] Co de Phone Number [facility] LAB See Below * (ABNORMAL) POCT Glucose, Fingerstick (10/22/2024 8:40 PM EST) POC Glucose 145(H) 65 - 99 mg/dL 10/22/2024 8:53 PM EST Blood specimen / Unknown 10/22/2024 8:40 PM EST 10/22/2024 8:53 PM EST Fuad Winter MD POINT OF CARE TEST ORDERABLES [facility] LAB See Below * (ABNORMAL) POCT Glucose, Fingerstick (10/22/2024 6:12 PM EST) POC Glucose 165(H) 65 - 99 mg/dL 10/22/2024 6:12 PM EST Blood specimen / Unknown 10/22/2024 6:12 PM EST 10/22/2024 6:13 PM EST Fuad Winter MD POINT OF CARE TEST ORDERABLES Performing Organization Address [facility] LAB See Below * (ABNORMAL) POCT Glucose, Fingerstick (10/22/2024 1:10 PM EST) POC Glucose 154(H) 65 - 99 mg/dL 10/22/2024 1:10 PM EST Blood specimen / Unknown 10/22/2024 1:10 PM EST 10/22/2024 1:11 PM EST Fuad Winter MD POINT OF CARE TEST ORDERABLES Performing Organization Address [facility] LAB See Below * (ABNORMAL) POCT Glucose, Fingerstick (10/22/2024 9:10 AM EST) POC Glucose 139(H) 65 - 99 mg/dL 10/22/2024 9:11 AM EST Blood specimen / Unknown 10/22/2024 9:10 AM EST 10/22/2024 9:11 AM EST Fuad Winter MD POINT OF CARE TEST ORDERABLES Performing Organization Address [facility] LAB See Below * Heparin Assay [...] BLOOD ORDERABLES [facility] [address] [place] [address], [facility] [address] [place] [address] * (ABNORMAL) Complete Blood Count WITHOUT Differential - in AM (10/22/2024 8:12 AM EST) White Blood Cell Count 10.7 4.0 - 11.0 Thou/uL 10/22/2024 8:44 AM [facility] Platelet Count 337 150 - 450 Thou/uL 10/22/2024 8:44 AM [facility] Hemoglobin 9.4(L) 13.0 - 17.7 g/dL 10/22/2024 8:44 AM [facility] Hematocrit 30.3(L) 39.0 - 54.0 % 10/22/2024 8:44 AM [facility] Red Blood Cell Count 3.13(L) 4.50 - 6.20 Mil/uL 10/22/2024 8:44 AM [facility] MCV 97 80 - 100 fL 10/22/2024 8:44 AM [facility] MCH 30.0 27.0 - 31.0 pg 10/22/2024 8:44 AM [facility] MCHC 31.0 30.0 - 36.0 g/dL 10/22/2024 8:44 AM [facility] RDW 16.2(H) 11.5 - 14.5 % 10/22/2024 8:44 AM [facility] MPV 11.3 7.5 - 12.5 fL 10/22/2024 8:44 AM [facility] Blood Blood specimen / Unknown 10/22/2024 8:12 AM EST 10/22/2024 8:18 AM EST Adilia Woo MD LAB BLOOD ORDERABLES Performing Organization Address City/State/[facility] [place] [address], [place] [address] * Magnesium (AM) (10/22/2024 8:12 AM EST) Pathologist [facility] Magnesium 1.7 1.6 - 2.7 mg/dL 10/22/2024 8:54 AM [facility] Blood (Plasma/Serum) 10/22/2024 8:12 AM EST 10/22/2024 8:18 AM EST Adilia Woo MD [place] [address], [place] [address] * (ABNORMAL) Basic Metabolic Panel (AM) (10/22/2024 8:12 AM EST) Glucose 124(H) 65 - 99 mg/dL 10/22/2024 8:54 AM [facility] Comment:Fasting: <100 mg/dL, Non-Fasting: <200 mg/dL (ADA 2004) Blood Urea Nitrogen (BUN) 82(H) 8 - 21 mg/dL 10/22/2024 8:54 AM [facility] Creatinine 4.3(H) 0.5 - 1.3 mg/dL 10/22/2024 8:54 AM [facility] eGFR 13(L) >59 10/22/2024 8:54 AM [facility] Comment:CKD-EPI (2020) in mL /min/1.73 sq meters. Sodium 145 136 - 145 mmol/L 10/22/2024 8:54 AM [facility] Potassium 4.4 3.4 - 5.3 mmol/L 10/22/2024 8:54 AM [facility] Chloride 110(H) 98 - 107 mmol/L 10/22/2024 8:54 AM [facility] CO2 17(L) 22 - 33 mmol/L 10/22/2024 8:54 AM [facility] Anion Gap 18(H) 7 - 17 10/22/2024 8:54 AM [facility] Calcium 7.1(L) 8.7 - 10.5 mg/dL 10/22/2024 8:54 AM [facility] BUN/Creatinine Ratio 19 10.0 - 25.0 Ratio 10/22/2024 8:54 AM [facility] Blood (Plasma/Serum) 10/22/2024 8:12 AM EST 10/22/2024 8:18 AM EST Adilia Woo MD [place] [address], [address] [address] * (ABNORMAL) POCT Glucose, Fingerstick (10/22/2024 1:23 AM EST) POC Glucose 122(H) 65 - 99 mg/dL 10/22/2024 1:28 AM EST Blood specimen / Unknown 10/22/2024 1:23 AM EST 10/22/2024 1:28 AM EST Fuad Winter MD POINT OF CARE TEST ORDERABLES HOSPITAL LAB See Below * ECG 12 lead (10/21/2024 9:45 PM EST) [facility] Ventricular rate 80 BPM EKG [facility] Atrial rate 80 BPM EKG [facility] QRS duration 86 ms EKG [facility] Q-T interval 438 ms EKG [facility] QTC calculation (Bazett) 506 ms EKG [facility] P axis 52 degrees EKG [facility] R axis 59 degrees EKG [facility] T axis 229 degrees EKG [facility] 10/21/2024 9:45 PM EST Narrative EKG [...] Hanson MD ECG ORDERABLES Performing Organization Address City/[facility]/ZIP Co de Phone Number [facility] * (ABNORMAL) POCT Glucose, Fingerstick (10/21/2024 9:04 PM EST) POC Glucose 190(H) 65 - 99 mg/dL 10/21/2024 9:09 PM EST Blood specimen / Unknown 10/21/2024 9:04 PM EST 10/21/2024 9:09 PM EST Fuad Winter MD POINT OF CARE TEST ORDERABLES Performing Organization Address [facility] [place] Number [facility] LAB See Below * (ABNORMAL) POCT Glucose, Fingerstick (10/21/2024 6:23 PM EST) POC Glucose 140(H) 65 - 99 mg/dL 10/21/2024 6:24 PM EST Blood specimen / Unknown 10/21/2024 6:23 PM EST 10/21/2024 6:24 PM EST Fuad Winter MD POINT OF CARE TEST ORDERABLES Performing Organization Address [facility] [place] Number [facility] LAB See Below * (ABNORMAL) POCT Glucose, Fingerstick (10/21/2024 1:38 PM EST) POC Glucose 270(H) 65 - 99 mg/dL 10/21/2024 1:39 PM EST Blood specimen / Unknown 10/21/2024 1:38 PM EST 10/21/2024 1:39 PM EST Fuad Winter MD POINT OF CARE TEST ORDERABLES Performing Organization Address [facility] [place] Number [facility] LAB See Below * (ABNORMAL) POCT [...] MD LAB BLOOD ORDERABLES Performing Organization Address [facility] [place] [address], [place] [address] * (ABNORMAL) POCT Glucose, Fingerstick (10/21/2024 8:35 AM EST) POC Glucose 219(H) 65 - 99 mg/dL 10/21/2024 8:36 AM EST Blood specimen / Unknown 10/21/2024 8:35 AM EST 10/21/2024 8:36 AM EST Fuad Winter MD POINT OF CARE TEST ORDERABLES Performing Organization Address [facility] Phone Number HOSPITAL LAB See Below * (ABNORMAL) POCT Glucose, Fingerstick (10/21/2024 8:03 AM EST) POC Glucose 181(H) 65 - 99 mg/dL 10/21/2024 8:04 AM EST Blood specimen / Unknown 10/21/2024 8:03 AM EST 10/21/2024 8:04 AM EST Fuad Winter MD POINT OF CARE TEST ORDERABLES Performing Organization Address [facility] de Phone Number HOSPITAL LAB See Below * (ABNORMAL) Basic Metabolic Panel (Routine) (10/21/2024 3:09 AM EST) Glucose 193(H) 65 - 99 mg/dL 10/21/2024 3:41 AM [facility] Comment:Fasting: <100 mg/dL, Non-Fasting: <200 mg/dL (ADA 2004) Blood Urea Nitrogen (BUN) 83(H) 8 - 21 mg/dL 10/21/2024 3:41 AM [facility] Creatinine 4.3(H) 0.5 - 1.3 mg/dL 10/21/2024 3:41 AM [facility] eGFR 13(L) >59 10/21/2024 3:41 AM [facility] Comment:CKD-EPI (2020) in mL /min/1.73 sq meters. Sodium 140 136 - 145 mmol/L 10/21/2024 3:41 AM [facility] Potassium 4.5 3.4 - 5.3 mmol/L 10/21/2024 3:41 AM [facility] Chloride 109(H) 98 - 107 mmol/L 10/21/2024 3:41 AM [facility] CO2 15(L) 22 - 33 mmol/L 10/21/2024 3:41 AM [facility] Anion Gap 16 7 - 17 10/21/2024 3:41 AM [facility] Calcium 7.1(L) 8.7 - 10.5 mg/dL 10/21/2024 3:41 AM [facility] BUN/Creatinine Ratio 19 10.0 - 25.0 Ratio 10/21/2024 3:41 AM [facility] Blood (Plasma/Serum) 10/21/2024 3:09 AM EST 10/21/2024 3:13 AM EST Magdaleno Crowder MD [place] [address], [address] [address] * (ABNORMAL) Complete Blood Count WITHOUT Differential - Early AM (10/21/2024 3:09 AM EST) White Blood Cell Count 10.8 4.0 - 11.0 Thou/uL 10/21/2024 3:18 AM [facility] Platelet Count 299 150 - 450 Thou/uL 10/21/2024 3:18 AM [facility] Hemoglobin 8.9(L) 13.0 - 17.7 g/dL 10/21/2024 3:18 AM [facility] Hematocrit 28.9(L) 39.0 - 54.0 % 10/21/2024 3:18 AM [facility] Red Blood Cell Count 2.97(L) 4.50 - 6.20 Mil/uL 10/21/2024 3:18 AM [facility] MCV 97 80 - 100 fL 10/21/2024 3:18 AM [facility] MCH 30.0 27.0 - 31.0 pg 10/21/2024 3:18 AM [facility] MCHC 30.8 30.0 - 36.0 g/dL 10/21/2024 3:18 AM [facility] RDW 16.3(H) 11.5 - 14.5 % 10/21/2024 3:18 AM [facility] MPV 11.0 7.5 - 12.5 fL 10/21/2024 3:18 AM [facility] Blood Blood specimen / Unknown 10/21/2024 3:09 AM EST 10/21/2024 3:13 AM EST Magdaleno Crowder MD LAB BLOOD ORDERABLES Performing Organization Address City/State/[facility] [place] [address], [place] [address] * Heparin Assay (Anti Xa) (10/21/2024 3:09 AM EST) Anti Xa 0.35 IU/mL 10/21/2024 3:31 AM [facility] Comment: (NOTE) Heparin Thromboembolic/Standard/Full Dose [...] MD LAB BLOOD ORDERABLES Performing Organization Address [facility]/State/[facility] [place] [address], [facility] [address] [place] [address] * (ABNORMAL) POCT Glucose, Fingerstick (10/21/2024 2:23 AM EST) POC Glucose 198(H) 65 - 99 mg/dL 10/21/2024 2:23 AM EST Blood specimen / Unknown 10/21/2024 2:23 AM EST 10/21/2024 2:24 AM EST Fuad Winter MD POINT OF CARE TEST ORDERABLES Performing Organization Address [facility] Phone Number HOSPITAL LAB See Below * (ABNORMAL) POCT Glucose, Fingerstick (10/20/2024 8:47 PM EST) Pathologist [facility] POC Glucose 218(H) 65 - 99 mg/dL 10/20/2024 8:50 PM EST Blood specimen / Unknown 10/20/2024 8:47 PM EST 10/20/2024 8:50 PM EST Fuad Winter MD POINT OF CARE TEST ORDERABLES Performing Organization Address [facility] Phone Number HOSPITAL LAB [...] MD LAB BLOOD ORDERABLES Performing Organization Address City/State/[facility] [place] [address], [place] [address] * (ABNORMAL) POCT Glucose, Fingerstick (10/20/2024 5:51 PM EST) POC Glucose 175(H) 65 - 99 mg/dL 10/20/2024 5:52 PM EST Blood specimen / Unknown 10/20/2024 5:51 PM EST 10/20/2024 5:52 PM EST Fuad Winter MD POINT OF CARE TEST ORDERABLES Performing Organization Address [facility] de Phone Number [facility] LAB See Below * (ABNORMAL) POCT Glucose, Fingerstick (10/20/2024 3:47 PM EST) POC Glucose 222(H) 65 - 99 mg/dL 10/20/2024 3:52 PM EST Blood specimen / Unknown 10/20/2024 3:47 PM EST 10/20/2024 3:52 PM EST Fuad Winter MD POINT OF CARE TEST ORDERABLES Performing Organization Address [facility] de Phone Number [facility] LAB See Below * (ABNORMAL) POCT Glucose, Fingerstick (10/20/2024 11:43 AM EST) POC Glucose 210(H) 65 - 99 mg/dL 10/20/2024 11:45 AM EST Blood specimen / Unknown 10/20/2024 11:43 AM EST 10/20/2024 11:44 AM EST Fuad Winter MD POINT OF CARE TEST ORDERABLES Performing Organization Address [facility] Phone Number [facility] LAB See Below * (ABNORMAL) Blood Gas, Venous (10/20/2024 10:39 AM EST) Pathologist [facility] Venous Blood PH 7.29(L) 7.33 - 7.43 10/20/2024 10:54 AM EST [facility] Venous pCO2 39 35 - 50 mmHG 10/20/2024 10:54 AM [facility] Venous pO2 49 0 - 60 mmHG 10/20/2024 10:54 AM EST [facility] Venous Total CO2 20(L) 23 - 29 mmol/L 10/20/2024 10:54 AM EST [facility] Respiratory Info NASAL 4 L/MIN 10/20/2024 10:39 AM EST Base Deficiency 7.2 mmol/L 10:54 AM [facility] Comment:Reference Range: Neg ative 2 to Positive 3 Blood Blood specimen / Unknown 10/20/2024 10:39 AM EST 10/20/2024 10:47 AM EST Kristopher Hickey MD LAB BLOOD ORDERAB LES Performing Organization Address [facility] Co de Phone Number [address] [address], [address] [address] * (ABNORMAL) POCT Glucose, Fingerstick (10/20/2024 10:37 AM EST) POC Glucose 187(H) 65 - 99 mg/dL 10/20/2024 10:37 AM EST Blood specimen / Unknown 10/20/2024 10:37 AM EST 10/20/2024 10:38 AM EST Fuad Winter MD POINT OF CARE TEST ORDERABLES Performing Organization Address City/[facility] Co de Phone Number HOSPITAL LAB See Below * Lactic Acid, Plasma (STAT) (10/20/2024 10:00 AM EST) Lactic Acid 0.8 0.5 - 1.9 mmol/L 10/20/2024 10:37 AM EST [facility] Blood Plasma specimen / Unknown 10/20/2024 10:00 AM EST 10/20/2024 10:07 AM EST Kristopher Hickey MD LAB BLOOD ORDERAB LES Performing Organization Address [facility] Co de Phone Number [address] [address], [address] [address] * (ABNORMAL) POCT Glucose, Fingerstick (10/20/2024 7:48 AM EST) POC Glucose 156(H) 65 - 99 mg/dL 10/20/2024 7:49 AM EST Blood specimen / Unknown 10/20/2024 7:48 AM EST 10/20/2024 7:49 AM EST Fuda Winter MD POINT OF CARE TEST ORDERABLES Performing Organization Address City/[facility]/ZIP Co de Phone Number [facility] LAB See Below * (ABNORMAL) POCT Glucose, Fingerstick (10/20/2024 5:43 AM EST) POC Glucose 148(H) 65 - 99 mg/dL 10/20/2024 5:44 AM EST Blood specimen / Unknown 10/20/2024 5:43 AM EST 10/20/2024 5:44 AM EST Fuad Winter MD POINT OF CARE TEST ORDERABLES Performing Organization Address City/[facility]/ZIP Co de Phone Number [facility] LAB See Below * (ABNORMAL) POCT Glucose, Fingerstick (10/20/2024 2:15 AM EST) Pathologist [facility] POC Glucose 219(H) 65 - 99 mg/dL 10/20/2024 2:16 AM EST Blood specimen / Unknown 10/20/2024 2:15 AM EST 10/20/2024 2:16 AM EST Fuad Winter MD POINT OF CARE TEST ORDERABLES Performing Organization Address [facility] Co de Phone Number [facility] LAB See Below * Phosphorus (Routine) (10/19/2024 11:59 PM EST) [facility] Phosphorus 4.4 2.7 - 4.5 mg/dL 10/20/2024 1:00 AM [facility] Blood (Plasma/Serum) 10/19/2024 11:59 PM EST 10/20/2024 12:25 AM EST Kristopher Hickey MD LAB BLOOD ORDERAB LES Performing Organization Address [facility] [place] [address], [place] [address] * Magnesium (Routine) (10/19/2024 11:59 PM EST) Pathologist [facility] Magnesium 1.6 1.6 - 2.7 mg/dL 10/20/2024 1:00 AM [facility] Blood (Plasma/Serum) 10/19/2024 11:59 PM EST 10/20/2024 12:25 AM EST Kristopher Hickey MD LAB BLOOD ORDERAB LES Performing Organization Address City/State/[facility] [place] [address], [address] [address] * (ABNORMAL) Complete Blood Count, with Differential (10/19/2024 11:59 PM EST) White Blood Cell Count 11.5(H) 4.0 - 11.0 Thou/uL 10/20/2024 12:32 AM [facility] Platelet Count 271 150 - 450 Thou/uL 10/20/2024 12:32 AM [facility] Hemoglobin 8.9(L) 13.0 - 17.7 g/dL 10/20/2024 12:32 AM [facility] Hematocrit 28.6(L) 39.0 - 54.0 % 10/20/2024 12:32 AM [facility] Red Blood Cell Count 2.93(L) 4.50 - 6.20 Mil/uL 10/20/2024 12:32 AM [facility] MCV 98 80 - 100 fL 10/20/2024 12:32 AM [facility] MCH 30.4 27.0 - 31.0 pg 10/20/2024 12:32 AM [facility] MCHC 31.1 30.0 - 36.0 g/dL 10/20/2024 12:32 AM [facility] RDW 16.5(H) 11.5 - 14.5 % 10/20/2024 12:32 AM [facility] MPV 11.3 7.5 - 12.5 fL 10/20/2024 12:32 AM [facility] Neutrophils Auto 80.7 % 10/20/19 12:32 AM [facility] Immature Granulocytes 0.6 % 10/20/2024 12:32 AM [facility] Lymphocytes Auto 11.6 % 10/20/19 12:32 AM [facility] Monocytes Auto 6.7 % 10/20/2024 12:32 AM [facility] Eosinophils Auto 0.2 % 10/20/19 12:32 AM [facility] Basophils Auto 0.2 % 10/20/2024 12:32 AM [facility] Abs Neutrophils Auto 9.25(H) 2.00 - 7.50 Thou/uL 10/20/2024 12:32 AM [facility] Abs Immature Granulocytes 0.07 0.00 - 0.10 Thou/uL 10/20/2024 12:32 AM [facility] Abs Lymphocytes Auto 1.33(L) 1.50 - 4.50 Thou/uL 10/20/2024 12:32 AM [facility] Abs Monocytes Auto 0.77 0.20 - 1.50 Thou/uL 10/20/2024 12:32 AM [facility] Abs Eosinophils Auto 0.02 0.00 - 0.70 Thou/uL 10/20/2024 12:32 AM [facility] Abs Basophils Auto 0.02 0.00 - 0.20 Thou/uL 10/20/2024 12:32 AM [facility] Blood Blood specimen / Unknown 10/19/2024 11:59 PM EST 10/20/2024 12:25 AM EST Fuad Winter MD [place] [address], [place] [address] * (ABNORMAL) Basic Metabolic Panel (Routine) (10/19/2024 11:59 PM EST) Glucose 183(H) 65 - 99 mg/dL 10/20/2024 1:00 AM [facility] Comment:Fasting: <100 mg/dL, Non-Fasting: <200 mg/dL (ADA 2005) Blood Urea Nitrogen (BUN) 86(H) 8 - 21 mg/dL 10/20/2024 1:00 AM [facility] Creatinine 4.7(H) 0.5 - 1.3 mg/dL 10/20/2024 1:00 AM [facility] eGFR 12(L) >59 10/20/2024 1:00 AM [facility] Comment:CKD-EPI (2020) in mL /min/1.73 sq meters. Sodium 140 136 - 145 mmol/L 10/20/2024 1:00 AM [facility] Potassium 4.4 3.4 - 5.3 mmol/L 10/20/2024 1:00 AM [facility] Chloride 106 98 - 107 mmol/L 10/20/2024 1:00 AM [facility] CO2 14(L) 22 - 33 mmol/L 10/20/2024 1:00 AM [facility] Anion Gap 20(H) 7 - 17 10/20/2024 1:00 AM [facility] Calcium 7.2(L) 8.7 - 10.5 mg/dL 10/20/2024 1:00 AM [facility] BUN/Creatinine Ratio 18 10.0 - 25.0 Ratio 10/20/2024 1:00 AM [facility] Blood (Plasma/Serum) 10/19/2024 11:59 PM EST 10/20/2024 12:25 AM EST Magdaleno Crowder MD [place] [address], [place] [address] * Heparin Assay (Anti Xa) (10/19/2024 11:59 PM EST) Anti Xa 0.45 IU/mL 10/20/2024 12:49 AM [facility] Comment: (NOTE) Heparin Thromboembolic/Standard/Full Dose [...] LAB BLOOD ORDERAB LES Performing Organization Address City/State/[facility] [place] [address], [place] [address] * (ABNORMAL) POCT Glucose, Fingerstick (10/19/2024 8:00 PM EST) POC Glucose 132(H) 65 - 99 mg/dL 10/20/2024 2:16 AM EST Blood specimen / Unknown 10/19/2024 8:00 PM EST 10/20/2024 2:16 AM EST Fuad Winter MD POINT OF CARE TEST ORDERABLES Performing Organization Address [facility] LAB See Below * (ABNORMAL) POCT Glucose, Fingerstick (10/19/2024 6:53 PM EST) POC Glucose 165(H) 65 - 99 mg/dL 10/19/2024 6:54 PM EST Blood specimen / Unknown 10/19/2024 6:53 PM EST 10/19/2024 6:54 PM EST Fuad Winter MD POINT OF CARE TEST ORDERABLES Performing Organization Address [facility] LAB See Below * (ABNORMAL) POCT Glucose, Fingerstick (10/19/2024 5:42 PM EST) POC Glucose 114(H) 65 - 99 mg/dL 10/19/2024 5:43 PM EST Blood specimen / Unknown 10/19/2024 5:42 PM EST 10/19/2024 5:43 PM EST Fuad Winter MD POINT OF CARE TEST ORDERABLES Performing Organization Address [facility] LAB See Below * (ABNORMAL) POCT Glucose, Fingerstick (10/19/2024 4:33 PM EST) POC Glucose 159(H) 65 - 99 mg/dL 10/19/2024 4:34 PM EST Blood specimen / Unknown 10/19/2024 4:33 PM EST 10/19/2024 4:34 PM EST Fuad Winter MD POINT OF CARE TEST ORDERABLES Performing Organization Address [facility] LAB See Below * (ABNORMAL) Basic Metabolic Panel (10/19/2024 3:47 PM EST) Glucose 126(H) 65 - 99 mg/dL 10/19/2024 4:58 PM [facility] Comment:Fasting: <100 mg/dL, Non-Fasting: <200 mg/dL (ADA 2004) Blood Urea Nitrogen (BUN) 81(H) 8 - 21 mg/dL 10/19/2024 4:58 PM [facility] Creatinine 4.6(H) 0.5 - 1.3 mg/dL 10/19/2024 4:58 PM [facility] eGFR 12(L) >59 10/19/2024 4:58 PM [facility] Comment:CKD-EPI (2020) in mL /min/1.73 sq meters. Sodium 143 136 - 145 mmol/L 10/19/2024 4:58 PM [facility] Potassium 4.4 3.4 - 5.3 mmol/L 10/19/2024 4:58 PM [facility] Chloride 109(H) 98 - 107 mmol/L 10/19/2024 4:58 PM [facility] CO2 15(L) 22 - 33 mmol/L 10/19/2024 4:58 PM [facility] Anion Gap 19(H) 7 - 17 10/19/2024 4:58 PM [facility] Calcium 7.0(L) 8.7 - 10.5 mg/dL 10/19/2024 4:58 PM [facility] BUN/Creatinine Ratio 18 10.0 - 25.0 Ratio 10/19/2024 4:58 PM [facility] Blood (Plasma/Serum) 10/19/2024 3:47 PM EST 10/19/2024 4:16 PM EST Pushpa Gallegos MD [place] [address], [place] [address] * (ABNORMAL) Hemoglobin and Hematocrit (10/19/2024 2:25 PM EST) Hematocrit 32.3(L) 39.0 - 54.0 % 10/19/2024 3:39 PM [facility] Hemoglobin 9.9(L) 13.0 - 17.7 g/dL 10/19/2024 3:39 PM EST [facility] Blood Blood specimen / Unknown 10/19/2024 2:25 PM EST 10/19/2024 3:31 PM EST Kristopher Hickey MD LAB BLOOD ORDERAB LES Performing Organization Address City/State/[facility] Co de Phone Number [facility] [address] [place] [address], [facility] [address] [place] [address] * Heparin Assay (Anti Xa) (10/19/2024 2:25 PM EST) Anti Xa 0.52 IU/mL 10/19/2024 3:44 PM [facility] Comment: (NOTE) Heparin Thromboembolic/Standard/Full Dose [...] LAB BLOOD ORDERAB LES Performing Organization Address [facility]/State/[facility] [place] [address], [place] [address] * (ABNORMAL) Blood Gas, Venous (10/19/2024 2:25 PM EST) Venous Blood PH 7.32(L) 7.33 - 7.43 10/19/2024 3:10 PM [facility] Venous pCO2 31(L) 35 - 50 mmHG 10/19/2024 3:10 PM [facility] Venous pO2 <30 0 - 60 mmHG 10/19/2024 3:10 PM [facility] Venous Total CO2 17(L) 23 - 29 mmol/L 10/19/2024 3:10 PM [facility] Respiratory Info VM 50% 10/19/19 2:25 PM EST Base Deficiency 9.0 mmol/L 3:10 PM [facility] Comment:Reference Range: Neg ative 2 to Positive 3 Blood Blood specimen / Unknown 10/19/2024 2:25 PM EST 10/19/2024 2:56 PM EST Pushpa Gallegos MD LAB BLOOD ORDERABLES Performing Organization Address [facility] Co de Phone Number [address] [address], [address] [address] * (ABNORMAL) POCT Glucose, Fingerstick (10/19/2024 1:52 PM EST) POC Glucose 133(H) 65 - 99 mg/dL 10/19/2024 1:53 PM EST Blood specimen / Unknown 10/19/2024 1:52 PM EST 10/19/2024 1:53 PM EST Fuad Winter MD POINT OF CARE TEST ORDERABLES Performing Organization Address [facility] Co de Phone Number [facility] LAB See Below * (ABNORMAL) POCT Glucose, Fingerstick (10/19/2024 11:40 AM EST) POC Glucose 145(H) 65 - 99 mg/dL 10/19/2024 11:41 AM EST Blood specimen / Unknown 10/19/2024 11:40 AM EST 10/19/2024 11:41 AM EST Fuad Winter MD POINT OF CARE TEST ORDERABLES Performing Organization Address [facility] Co de Phone Number [facility] See Below * B-Hydroxybutyrate (10/19/2024 [...] MD LAB BLOOD ORDERABLES Performing Organization Address City/[facility]/[place] [address], [place] [address] * (ABNORMAL) High Sensitivity Troponin T (10/19/2024 11:34 AM EST) Pathologist [facility] High Sensitivity Troponin T 4,276(HH) <23 ng/L 10/19/2024 3:44 PM [facility] Comment:Recurring Critical R esult. Previously phoned. Delta (Change) 2,446(H) <3 10/19/2024 3:44 PM [facility] Comment:Increased Plasma/Serum 10/19/2024 11:3 4 AM EST 10/19/2024 11:54 AM EST Pushpa Gallegos MD LAB BLOOD ORDERABLES Performing Organization Address City/[facility] [place] [address], [place] [address] * (ABNORMAL) Basic Metabolic Panel (10/19/2024 11:34 AM EST) [facility] Glucose 128(H) 65 - 99 mg/dL 10/19/2024 1:00 PM [facility] Comment:Fasting: <100 mg/dL, Non-Fasting: <200 mg/dL (ADA 2005) Blood Urea Nitrogen (BUN) 84(H) 8 - 21 mg/dL 10/19/2024 1:00 PM [facility] Creatinine 4.8(H) 0.5 - 1.3 mg/dL 10/19/2024 1:00 PM [facility] eGFR 12(L) >59 10/19/2024 1:00 PM [facility] Comment:CKD-EPI (2020) in mL /min/1.73 sq meters. Sodium 142 136 - 145 mmol/L 10/19/2024 1:00 PM [facility] Potassium 4.3 3.4 - 5.3 mmol/L 10/19/2024 1:00 PM [facility] Chloride 110(H) 98 - 107 mmol/L 10/19/2024 1:00 PM [facility] CO2 14(L) 22 - 33 mmol/L 10/19/2024 1:00 PM [facility] Anion Gap 18(H) 7 - 17 10/19/2024 1:00 PM [facility] Calcium 7.0(L) 8.7 - 10.5 mg/dL 10/19/2024 1:00 PM [facility] BUN/Creatinine Ratio 18 10.0 - 25.0 Ratio 10/19/2024 1:00 PM [facility] Blood (Plasma/Serum) 10/19/2024 11:34 AM EST 10/19/2024 11:54 AM EST Pushpa Gallegos MD LAB BLOOD ORDERABLES Performing Organization Address [facility]/[place] [address], [place] [address] * (ABNORMAL) Blood Gas, Venous (10/19/2024 10:36 AM EST) Venous Blood PH 7.32(L) 7.33 - 7.43 10/19/2024 10:59 AM [facility] Venous pCO2 33(L) 35 - 50 mmHG 10/19/2024 10:59 AM [facility] Venous pO2 53 0 - 60 mmHG 10/19/2024 10:59 AM [facility] Venous Total CO2 18(L) 23 - 29 mmol/L 10/19/2024 10:59 AM [facility] Respiratory Info VM 50% 10/19/19 25 10:36 AM EST Base Deficiency 8.3 mmol/L 10:59 AM [facility] Comment:Reference Range: Neg ative 2 to Positive 3 Blood Blood specimen / Unknown 10/19/2024 10:36 AM EST 10/19/2024 10:56 AM EST Pushpa Gallegos MD LAB BLOOD ORDERABLES Performing Organization Address City/[facility]/ZIP Co de Phone Number [address] [address], [address] [address] * (ABNORMAL) POCT Glucose, Fingerstick (10/19/2024 10:34 AM EST) POC Glucose 131(H) 65 - 99 mg/dL 10/19/2024 10:34 AM EST Blood specimen / Unknown 10/19/2024 10:34 AM EST 10/19/2024 10:35 AM EST Fuad Winter MD POINT OF CARE TEST ORDERABLES Performing Organization Address [facility] LAB See Below * (ABNORMAL) POCT Glucose, Fingerstick (10/19/2024 9:08 AM EST) POC Glucose 146(H) 65 - 99 mg/dL 10/19/2024 9:08 AM EST Blood specimen / Unknown 10/19/2024 9:08 AM EST 10/19/2024 9:09 AM EST Fuad Winter MD POINT OF CARE TEST ORDERABLES Performing Organization Address [facility] LAB See Below * (ABNORMAL) POCT Glucose, Fingerstick (10/19/2024 7:58 AM EST) POC Glucose 118(H) 65 - 99 mg/dL 10/19/2024 8:00 AM EST Blood specimen / Unknown 10/19/2024 7:58 AM EST 10/19/2024 7:59 AM EST Fuad Winter MD POINT OF CARE TEST ORDERABLES Performing Organization Address [facility] LAB See Below * Heparin Assay [...] LAB BLOOD ORDERAB LES Performing Organization Address [facility]/[place] [address], [address] [address] * (ABNORMAL) Basic Metabolic Panel (10/19/2024 7:44 AM EST) Glucose 110(H) 65 - 99 mg/dL 10/19/2024 8:53 AM [facility] Comment:Fasting: <100 mg/dL, Non-Fasting: <200 mg/dL (ADA 2004) Blood Urea Nitrogen (BUN) 84(H) 8 - 21 mg/dL 10/19/2024 8:53 AM [facility] Creatinine 4.8(H) 0.5 - 1.3 mg/dL 10/19/2024 8:53 AM [facility] eGFR 12(L) >59 10/19/2024 8:53 AM [facility] Comment:CKD-EPI (2020) in mL /min/1.73 sq meters. Sodium 141 136 - 145 mmol/L 10/19/2024 8:53 AM [facility] Potassium 4.6 3.4 - 5.3 mmol/L 10/19/2024 8:53 AM [facility] Chloride 109(H) 98 - 107 mmol/L 10/19/2024 8:53 AM [facility] CO2 14(L) 22 - 33 mmol/L 10/19/2024 8:53 AM [facility] Anion Gap 18(H) 7 - 17 10/19/2024 8:53 AM [facility] Calcium 7.2(L) 8.7 - 10.5 mg/dL 10/19/2024 8:53 AM [facility] BUN/Creatinine Ratio 18 10.0 - 25.0 Ratio 10/19/2024 8:53 AM [facility] Blood (Plasma/Serum) 10/19/2024 7:44 AM EST 10/19/2024 8:19 AM EST Pushpa Gallegos MD LAB BLOOD ORDERABLES [address] [place] [address], [address] [address] * (ABNORMAL) POCT Glucose, Fingerstick (10/19/2024 6:38 AM EST) [facility] POC Glucose 148(H) 65 - 99 mg/dL 10/19/2024 6:39 AM EST Blood specimen / Unknown 10/19/2024 6:38 AM EST 10/19/2024 6:39 AM EST Fuad Winter MD POINT OF CARE TEST ORDERABLES Performing Organization Address [facility] Co de Phone Number [facility] LAB See Below * (ABNORMAL) POCT Glucose, Fingerstick (10/19/2024 5:25 AM EST) [facility] POC Glucose 169(H) 65 - 99 mg/dL 10/19/2024 5:29 AM EST Blood specimen / Unknown 10/19/2024 5:25 AM EST 10/19/2024 5:29 AM EST Fuad Winter MD POINT OF CARE TEST ORDERABLES Performing Organization Address [facility] Phone Number [facility] LAB See Below * (ABNORMAL) High Sensitivity Troponin T (10/19/2024 5:15 AM EST) [facility] High Sensitivity Troponin T 4,239(HH) <23 ng/L 10/19/2024 7:11 AM [facility] Comment:Recurring Critical R esult. Previously phoned. Delta (Change) 2,409(H) <3 10/19/2024 7:11 AM [facility] Comment:Increased Blood (Plasma/Serum) 10/19/2024 5:15 AM EST 10/19/2024 6:04 AM EST Pushpa Gallegos MD LAB BLOOD ORDERABLES Performing Organization Address [facility] [place] [address], [place] [address] * (ABNORMAL) BASIC METABOLIC PANEL (10/19/2024 4:15 AM EST) Glucose 143(H) 65 - 99 mg/dL 10/19/2024 5:00 AM [facility] Comment:Fasting: <100 mg/dL, Non-Fasting: <200 mg/dL (ADA 2004) Blood Urea Nitrogen (BUN) 84(H) 8 - 21 mg/dL 10/19/2024 5:00 AM [facility] Creatinine 5.0(H) 0.5 - 1.3 mg/dL 10/19/2024 5:00 AM [facility] eGFR 11(L) >59 10/19/2024 5:00 AM [facility] Comment:CKD-EPI (2020) in mL /min/1.73 sq meters. Sodium 142 136 - 145 mmol/L 10/19/2024 5:00 AM [facility] Potassium 4.3 3.4 - 5.3 mmol/L 10/19/2024 5:00 AM [facility] Chloride 109(H) 98 - 107 mmol/L 10/19/2024 5:00 AM [facility] CO2 14(L) 22 - 33 mmol/L 10/19/2024 5:00 AM [facility] Anion Gap 19(H) 7 - 17 10/19/2024 5:00 AM [facility] Calcium 6.8(LL) 8.7 - 10.5 mg/dL 10/19/2024 5:00 AM [facility] BUN/Creatinine Ratio 17 10.0 - 25.0 Ratio 10/19/2024 5:00 AM [facility] Plasma/Serum 10/19/2024 4:15 AM EST 10/19/2024 4:25 AM EST Fuad Winter MD LAB BLOOD ORD ERABLES [facility] [address] [place] [address], [address] [address] * (ABNORMAL) POCT Glucose, Fingerstick (10/19/2024 4:14 AM EST) POC Glucose 154(H) 65 - 99 mg/dL 10/19/2024 4:15 AM EST Blood specimen / Unknown 10/19/2024 4:14 AM EST 10/19/2024 4:15 AM EST Fuad Winter MD POINT OF CARE TEST ORDERABLES Performing Organization Address [facility] Co wy Phone Number HOSPITAL LAB See Below * (ABNORMAL) POCT Glucose, Fingerstick (10/19/2024 2:45 AM EST) POC Glucose 192(H) 65 - 99 mg/dL 10/19/2024 2:46 AM EST Blood specimen / Unknown 10/19/2024 2:45 AM EST 10/19/2024 2:46 AM EST Fuad Winter MD POINT OF CARE TEST ORDERABLES Performing Organization Address [facility] Phone Number HOSPITAL LAB [...] LAB BLOOD ORDERAB LES Performing Organization Address City/[facility] [place] [address], [place] [address] * (ABNORMAL) POCT Glucose, Fingerstick (10/19/2024 1:35 AM EST) POC Glucose 160(H) 65 - 99 mg/dL 10/19/2024 1:36 AM EST Blood specimen / Unknown 10/19/2024 1:35 AM EST 10/19/2024 1:36 AM EST Fuad Winter MD POINT OF CARE TEST ORDERABLES Performing Organization Address City/[facility]/ZIP Co de Phone Number HOSPITAL LAB See Below * (ABNORMAL) Hemoglobin A1C with Estimated Average Glucose (10/19/2024 1:20 AM EST) Hemoglobin A1C 8.7(H) <5.7 % 10/19/2024 12:02 PM [facility] Comment: A1c% ? Interpretation 5.7 - 6.0 ?Increase risk of diabetes 6.1 - 6.4 ?Higher risk of diabetes > or = 6.5 ?? Consistent with diabetes Diabetes Care, 33(Supp 1):S1-S61, 2010 Estimated Average Glucose 203 mg/dL 10/19/2024 12:02 PM [facility] Blood specimen / Unknown 10/19/2024 1:20 AM EST 10/19/2024 2:17 AM EST Pushpa Gallegos MD LAB BLOOD ORDERABLES Performing Organization Address City/[facility]/[place] [address], [place] [address] * Phosphorus (Routine) (10/19/2024 1:20 AM EST) Phosphorus 4.2 2.7 - 4.5 mg/dL 10/19/2024 2:39 AM [facility] Blood (Plasma/Serum) 10/19/2024 1:20 AM EST 10/19/2024 2:17 AM EST Pushpa Gallegos MD [place] [address], [place] [address] * Magnesium (Routine) (10/19/2024 1:20 AM EST) Magnesium 1.7 1.6 - 2.7 mg/dL 10/19/2024 2:39 AM EST [facility] Blood (Plasma/Serum) 10/19/2024 1:20 AM EST 10/19/2024 2:17 AM EST Pushpa Gallegos MD LAB BLOOD ORDERABLES Performing Organization Address [facility] [place] [address], [place] [address] * (ABNORMAL) High Sensitivity Troponin T (Once) (10/19/2024 1:20 AM EST) [facility] High Sensitivity Troponin T 4,171(HH) <23 ng/L 10/19/2024 2:39 AM [facility] Comment:Recurring Critical R esult. Previously phoned. Delta (Change) 2,341(H) <3 10/19/2024 2:39 AM [facility] Comment:Increased Blood (Plasma/Serum) 10/19/2024 1:20 AM EST 10/19/2024 2:17 AM EST Pushpa Gallegos MD LAB BLOOD ORDERABLES Performing Organization Address [facility] [place] [address], [place] [address] * (ABNORMAL) Complete Blood Count, WITHOUT Differential (routine) (10/19/2024 1:20 AM EST) [facility] White Blood Cell Count 15.9(H) 4.0 - 11.0 Thou/uL 10/19/2024 2:31 AM [facility] Platelet Count 263 150 - 450 Thou/uL 10/19/2024 2:31 AM [facility] Hemoglobin 8.5(L) 13.0 - 17.7 g/dL 10/19/2024 2:31 AM [facility] Hematocrit 27.0(L) 39.0 - 54.0 % 10/19/2024 2:31 AM [facility] Red Blood Cell Count 2.78(L) 4.50 - 6.20 Mil/uL 10/19/2024 2:31 AM [facility] MCV 97 80 - 100 fL 10/19/2024 2:31 AM [facility] Comment:Significant change i n values [...] MD LAB BLOOD ORDERABLES Performing Organization Address City/[facility]/[place] [address], [place] [address] * (ABNORMAL) POCT Glucose, Fingerstick (10/19/2024 12:16 AM EST) POC Glucose 106(H) 65 - 99 mg/dL 10/19/2024 12:17 AM EST Blood specimen / Unknown 10/19/2024 12:16 AM EST 10/19/2024 12:17 AM EST Fuad Winter MD POINT OF CARE TEST ORDERABLES HOSPITAL LAB See Below * ECG 12 lead (10/19/2024 12:02 AM EST) Systolic BP 128 mmHg EKG [facility] Diastolic BP 67 mmHg EKG [facility] Ventricular rate 86 BPM EKG [facility] Atrial rate 86 BPM EKG [facility] P-R interval 162 ms EKG [facility] QRS duration 78 ms EKG [facility] Q-T interval 372 ms EKG [facility] QTC calculation (Bazett) 445 ms EKG [facility] P axis 42 degrees EKG [facility] R axis 60 degrees EKG [facility] T axis 224 degrees EKG [facility] 10/19/2024 12:0 2 AM EST Narrative EKG [facility] - 10/19/2024 5:46 AM EST Normal sinus rhythm Early Transition Nonspecific ST and T wave abnormality Abnormal ECG Confirmed by MD Wade John ([id number]) on 10/19/2024 5:46:29 AM Procedure Note Raciel Wade MD - 10/19/2024 Normal sinus rhythm Early Transition Nonspecific ST and T wave abnormality Abnormal ECG Confirmed by MD Wade John ([id number]) on 10/19/2024 5:46:29 AM Fuad Winter MD ECG ORDERABLE S Performing Organization Address City/[facility]/ZIP Co de Phone Number [facility] 65 - 99 mg/dL 10/19/2024 12:51 AM [facility] Comment:Fasting: <100 mg/dL, Non-Fasting: <200 mg/dL (ADA 2005) Blood Urea Nitrogen (BUN) 88(H) 8 - 21 mg/dL 10/19/2024 12:51 AM [facility] Creatinine 5.0(H) 0.5 - 1.3 mg/dL 10/19/2024 12:51 AM [facility] eGFR 11(L) >59 10/19/2024 12:51 AM [facility] Comment:CKD-EPI (2020) in mL /min/1.73 sq meters. Sodium 143 136 - 145 mmol/L 10/19/2024 12:51 AM [facility] Potassium 4.4 3.4 - 5.3 mmol/L 10/19/2024 12:51 AM [facility] Chloride 110(H) 98 - 107 mmol/L 10/19/2024 12:51 AM [facility] CO2 13(L) 22 - 33 mmol/L 10/19/2024 12:51 AM [facility] Anion Gap 20(H) 7 - 17 10/19/2024 12:51 AM [facility] Calcium 7.0(L) 8.7 - 10.5 mg/dL 10/19/2024 12:51 AM [facility] BUN/Creatinine Ratio 18 10.0 - 25.0 Ratio 10/19/2024 12:51 AM [facility] Plasma/Serum 10/18/2024 11:1 1 PM EST 10/18/2024 11:48 PM EST Fuad Winter MD [place] [address], [place] [address] * (ABNORMAL) Blood Gas, Venous (10/18/2024 11:11 PM EST) Venous Blood PH 7.35 7.33 - 7.43 10/18/2024 11:50 PM [facility] Venous pCO2 27(L) 35 - 50 mmHG 10/18/2024 11:50 PM [facility] Venous pO2 185(H) 0 - 60 mmHG 10/18/2024 11:50 PM [facility] Venous Total CO2 15(L) 23 - 29 mmol/L 10/18/2024 11:50 PM [facility] Respiratory Info VM 50% 10/18/19 25 5:04 PM EST Base Deficiency 9.7 mmol/L 11:50 PM [facility] Comment:Reference Range: Neg ative 2 to Positive 3 Blood Blood specimen / Unknown 10/18/2024 11:11 PM EST 10/18/2024 11:45 PM EST Pushpa Gallegos MD [place] [address], [address] [address] * (ABNORMAL) BASIC METABOLIC PANEL (10/18/2024 10:15 PM EST) Glucose 113(H) 65 - 99 mg/dL 10/18/2024 10:59 PM [facility] Comment:Fasting: <100 mg/dL, Non-Fasting: <200 mg/dL (ADA 2004) Blood Urea Nitrogen (BUN) 91(H) 8 - 21 mg/dL 10/18/2024 10:59 PM [facility] Creatinine 5.2(H) 0.5 - 1.3 mg/dL 10/18/2024 10:59 PM [facility] eGFR 11(L) >59 10/18/2024 10:59 PM [facility] Comment:CKD-EPI (2020) in mL /min/1.73 sq meters. Sodium 145 136 - 145 mmol/L 10/18/2024 10:59 PM [facility] Potassium 4.2 3.4 - 5.3 mmol/L 10/18/2024 10:59 PM [facility] Chloride 111(H) 98 - 107 mmol/L 10/18/2024 10:59 PM [facility] CO2 14(L) 22 - 33 mmol/L 10/18/2024 10:59 PM [facility] Anion Gap 20(H) 7 - 17 10/18/2024 10:59 PM [facility] Calcium 7.3(L) 8.7 - 10.5 mg/dL 10/18/2024 10:59 PM [facility] BUN/Creatinine Ratio 18 10.0 - 25.0 Ratio 10/18/2024 10:59 PM [facility] Plasma/Serum 10/18/2024 10:1 5 PM EST 10/18/2024 10:21 PM EST Fuad Winter MD LAB BLOOD [place] [address], [place] [address] * Lactic Acid, Plasma (Routine) (10/18/2024 10:13 PM EST) Lactic Acid 1.2 0.5 - 1.9 mmol/L 10/18/2024 10:56 PM EST [facility] Blood Plasma specimen / Unknown 10/18/2024 10:13 PM EST 10/18/2024 10:21 PM EST Pushpa Gallegos MD [place] [address], [place] [address] * (ABNORMAL) POCT Glucose, Fingerstick (10/18/2024 10:06 [...] OF CARE TEST ORDERABLES Performing Organization Address [facility] [place] Number [facility] LAB See Below * (ABNORMAL) POCT Glucose, Fingerstick (10/18/2024 8:16 PM EST) Pathologist [facility] POC Glucose 168(H) 65 - 99 mg/dL 10/18/2024 8:17 PM EST Blood specimen / Unknown 10/18/2024 8:16 PM EST 10/18/2024 8:17 PM EST Fuad Winter MD POINT OF CARE TEST ORDERABLES Performing Organization Address [facility] Co wy Phone Number [facility] LAB See Below * (ABNORMAL) Blood [...] EST Base Deficiency 9.7 mmol/L 7:25 PM [facility] Comment:Reference Range: Neg ative 2 to Positive 3 Blood Blood specimen / Unknown 10/18/2024 7:14 PM EST 10/18/2024 7:21 PM EST Pushpa Gallegos MD [place] [address], [address] [address] * (ABNORMAL) Basic Metabolic Panel (10/18/2024 7:14 PM EST) Glucose 154(H) 65 - 99 mg/dL 10/18/2024 7:55 PM [facility] Comment:Fasting: <100 mg/dL, Non-Fasting: <200 mg/dL (ADA 2004) Blood Urea Nitrogen (BUN) 87(H) 8 - 21 mg/dL 10/18/2024 7:55 PM [facility] Creatinine 5.1(H) 0.5 - 1.3 mg/dL 10/18/2024 7:55 PM [facility] eGFR 11(L) >59 10/18/2024 7:55 PM [facility] Comment:CKD-EPI (2020) in mL /min/1.73 sq meters. Sodium 144 136 - 145 mmol/L 10/18/2024 7:55 PM [facility] Potassium 4.7 3.4 - 5.3 mmol/L 10/18/2024 7:55 PM [facility] Chloride 110(H) 98 - 107 mmol/L 10/18/2024 7:55 PM [facility] CO2 14(L) 22 - 33 mmol/L 10/18/2024 7:55 PM [facility] Anion Gap 20(H) 7 - 17 10/18/2024 7:55 PM [facility] Calcium 7.0(L) 8.7 - 10.5 mg/dL 10/18/2024 7:55 PM [facility] BUN/Creatinine Ratio 17 10.0 - 25.0 Ratio 10/18/2024 7:55 PM EST [facility] Blood (Plasma/Serum) 10/18/2024 7:14 PM EST 10/18/2024 7:22 PM EST Fuad Winter MD LAB BLOOD ORD ERABLES [address] [address], [address] [address] * (ABNORMAL) POCT Glucose, Fingerstick (10/18/2024 7:13 PM EST) POC Glucose 166(H) 65 - 99 mg/dL 10/18/2024 7:15 PM EST Blood specimen / Unknown 10/18/2024 7:13 PM EST 10/18/2024 7:15 PM EST Fuad Winter MD POINT OF CARE TEST ORDERABLES Performing Organization Address City/[facility] Co de Phone Number HOSPITAL LAB See [...] Sample left with bedside RN. ACCESS: 6 Samoan Kyck-H-Vxocrmfs closed needle/catheter system ?? REQUESTING PRACTITIONER: Cheryl [...] adjacent organs or vascular structures. A 6 Samoan Katf-I-Chyzsbtd closed needle/catheter system was utilized for access. [...] adjacent organs or vascular structures. A 6 Samoan Nijh-E-Qunnbxzu closed needle/catheter system was utilized for access. 550 mL of clear devorah fluid was aspirated before drainage ceased. The catheter was removed and a sterile dressing applied. The patient tolerated the procedure well without evidence of complications. ?? Pushpa Gallegos MD [facility] ORDERABLES * (ABNORMAL) POCT Glucose, Fingerstick (10/18/2024 [...] [facility] [address] [place] [employer]Gail Terabitz [address] * Body Fluid Culture (aerobic, anaerobic and Gram stain) (10/18/2024 5:55 PM EST) Gram stain suggestive of Few neutrophils Mononuclear cells No organisms seen 10/18/2024 9:52 PM EST [facility] Culture No aerobes and anaerobes isolated after 7 days 10/25/2024 3:19 PM [facility] 10/18/2024 5:55 PM EST 10/18/2024 7:53 PM EST Fuad Winter MD MICROBIOLOGY - GENERAL ORDERABLES Performing Organization Address City/[facility] Co de Phone Number [facility] [address] [facility] [place] [address], [address] [address] * Protein, Body Fluid (10/18/2024 5:50 PM [...] A ND STOOLS ORDERABLES Performing Organization Address [facility] [place] [address], [place] [address] * PH, BODY FLUID (10/18/2024 5:50 PM EST) Source RIGHT PLEURAL EFFUSION 10/18/2024 6:49 PM EST [facility] pH, Body Fluid 7.34 10/18/2024 7:14 PM EST [facility] 10/18/2024 5:50 PM EST 10/18/2024 6:49 PM EST Fuad Winter MD BODY FLUIDS A ND STOOLS ORDERABLES Performing Organization Address [place] [address], [place] [address] * Glucose, Body Fluid (10/18/2024 5:50 PM [...] ND STOOLS ORDERABLES Performing Organization Address [facility] [place] [address], [place] [address] * Cell Count, Reflex Differential, Body Fluid (10/18/2024 5:50 PM EST) Appearance, Body Fluid Cloudy 10/18/2024 8:25 PM [facility] Color [place] 10/18/2024 8:25 PM [facility] Nucleated Cells, Fluid 435 /CUMM 10/18/2024 8:24 PM [facility] RBC, Fluid 11,000 /CUMM 10/18/2024 8:24 PM [facility] Neutrophil, Body Fluid 3 % 10/18/2024 8:25 PM [facility] Lymphoctye, Body Fluid 27 % 10/18/2024 8:25 PM [facility] Monocyte, Body Fluid 21 % 10/18/2024 8:25 PM [facility] Histiocyte, Body Fluid 46 % 10/18/2024 8:25 PM [facility] Mesothelial, Body Fluid 3 % 10/18/2024 8:25 PM [facility] Smear Comment, Body Fluid The reference interval and other method performance specifications are unavailable for this body fluid. Comparison of the result with concentration in the blood, serum, or plasma is recommended 10/18/2024 8:25 PM [facility] 10/18/2024 5:50 PM EST 10/18/2024 6:49 PM EST Fuad Winter MD BODY FLUIDS [place] [address], [place] [address] * Culture - Pleural Fluid (aerobic, anaerobic and Gram stain) (10/18/2024 5:40 PM EST) Special Requests Limited quantity of fluid received, results may be impacted. 10/19/2024 9:03 AM [facility] Gram stain suggestive of Few neutrophils Mononuclear cells No organisms seen 10/18/2024 9:59 PM [facility] Culture No aerobes and anaerobes isolated after 7 days 10/25/2024 3:19 PM [facility] Microbiology Specimen from pleura obtained by thoracentesis / Unknown 10/18/2024 5:40 PM EST 10/18/2024 7:48 PM EST Pushpa Gallegos MD MICROBIOLOGY - GENER AL ORDERABLES Performing Organization Address [facility] Co de Phone Number [facility] [address] [place] [address], [place] [address] * Protein - Pleural Fluid (10/18/2024 5:39 [...] AND STOO LS ORDERABLES Performing Organization Address [facility] [place] [address], [place] [address] * pH - Pleural Fluid (not avail at [facility]) (10/18/2024 5:39 PM EST) Source PLEURAL 10/18/2024 5:40 PM EST pH, Body Fluid 7.33 10/18/2024 7:15 PM EST [facility] Body Fluid Specimen from pleura obtained by thoracentesis / Unknown 10/18/2024 5:39 PM EST 10/18/2024 6:57 PM EST Pushpa Gallegos MD BODY FLUIDS AND STOO LS ORDERABLES Performing Organization Address [facility] [place] [address], [place] [address] * LDH - Pleural Fluid (10/18/2024 5:39 [...] AND STOO LS ORDERABLES Performing Organization Address [facility] [facility] [place] [address], [place] [address] * Glucose - Pleural Fluid (10/18/2024 5:39 PM EST) Source PLEURAL 10/18/2024 5:40 PM EST Glucose, Body Fluid 146 mg/dL 10/18/2024 7:27 PM [facility] Comment:The reference interv al(s) and other method performance specifications are unavailable for this body fluid. Comparison of this result with the concentration in the blood, serum, or plasma is recommended. Specimen from pleura obtained by thoracentesis / Unknown 10/18/2024 5:39 PM EST 10/18/2024 6:57 PM EST Pushpa Gallegos MD BODY FLUIDS AND STOO LS ORDERABLES Performing Organization Address [facility] [place] [address], [place] [address] * Cell Count, Reflex Differential, Body Fluid (10/18/2024 5:39 PM EST) Appearance, Body Fluid Cloudy 10/18/2024 8:22 PM EST [facility] Color [place] 10/18/2024 8:22 PM [facility] Nucleated Cells, Fluid 721 /CUMM 10/18/2024 8:22 PM [facility] RBC, Fluid 10,000 /CUMM 10/18/2024 8:22 PM [facility] Neutrophil, Body Fluid 0 % 10/18/2024 8:22 PM EST [facility] Lymphoctye, Body Fluid 57 % 10/18/2024 8:22 PM [facility] Monocyte, Body Fluid 15 % 10/18/2024 8:22 PM [facility] Histiocyte, Body Fluid 27 % 10/18/2024 8:22 PM [facility] Basophil, Body Fluid 1 % 10/18/2024 8:22 PM [facility] Smear Comment, Body Fluid The reference interval and other method performance specifications are unavailable for this body fluid. Comparison of the result with concentration in the blood, serum, or plasma is recommended 10/18/2024 8:22 PM [facility] Specimen from pleura obtained by thoracentesis / Unknown 10/18/2024 5:39 PM EST 10/18/2024 6:57 PM EST Pushpa Gallegos MD BODY FLUIDS [place] [address], [place] [address] * (ABNORMAL) POCT Glucose, Fingerstick (10/18/2024 5:04 PM EST) POC Glucose 119(H) 65 - 99 mg/dL 10/18/2024 6:07 PM EST Blood specimen / Unknown 10/18/2024 5:04 PM EST 10/18/2024 6:07 PM EST Fuad Winter MD POINT OF CARE TEST ORDERABLES HOSPITAL LAB See Below * (ABNORMAL) B-Hydroxybutyrate (10/18/2024 5:04 PM EST) B-Hydroxybutyrate 0.45(H) <0.28 mmol/L 10/18/2024 6:44 PM [facility] Comment: In the presence of [...] LAB BLOOD ORD ERABLES Performing Organization Address [facility] [place] [address], [place] [address] * (ABNORMAL) Blood Gas, Venous (10/18/2024 5:04 PM EST) Venous Blood PH 7.32(L) 7.33 - 7.43 10/18/2024 5:27 PM [facility] Venous pCO2 31(L) 35 - 50 mmHG 10/18/2024 5:27 PM [facility] Venous pO2 131(H) 0 - 60 mmHG 10/18/2024 5:27 PM [facility] Venous Total CO2 17(L) 23 - 29 mmol/L 10/18/2024 5:27 PM [facility] Respiratory Info NASAL 6 L/MIN 10/18/2024 3:04 PM EST Base Deficiency 9.2 mmol/L 5:27 PM [facility] Comment:Reference Range: Neg ative 2 to Positive 3 Blood Blood specimen / Unknown 10/18/2024 5:04 PM EST 10/18/2024 5:13 PM EST Pushpa Gallegos MD LAB BLOOD ORDERABLES Performing Organization Address [facility]/[place] [address], [place] [address] * Heparin Assay (Anti Xa) (10/18/2024 5:04 PM EST) Anti Xa 0.23 IU/mL 10/18/2024 6:17 PM [facility] Comment: (NOTE) Heparin Thromboembolic/Standard/Full Dose [...] MD LAB BLOOD ORDERABLES Performing Organization Address [facility]/ZIP Co de Phone Number [address] [address], [address] [address] * (ABNORMAL) Basic Metabolic Panel (10/18/2024 5:04 PM EST) Glucose 112(H) 65 - 99 mg/dL 10/18/2024 6:44 PM [facility] Comment:Fasting: <100 mg/dL, Non-Fasting: <200 mg/dL (ADA 2004) Blood Urea Nitrogen (BUN) 85(H) 8 - 21 mg/dL 10/18/2024 6:44 PM [facility] Creatinine 5.2(H) 0.5 - 1.3 mg/dL 10/18/2024 6:44 PM [facility] eGFR 11(L) >59 10/18/2024 6:44 PM [facility] Comment:CKD-EPI (2020) in mL /min/1.73 sq meters. Sodium 145 136 - 145 mmol/L 10/18/2024 6:44 PM [facility] Potassium 4.4 3.4 - 5.3 mmol/L 10/18/2024 6:44 PM [facility] Chloride 110(H) 98 - 107 mmol/L 10/18/2024 6:44 PM [facility] CO2 15(L) 22 - 33 mmol/L 10/18/2024 6:44 PM [facility] Anion Gap 20(H) 7 - 17 10/18/2024 6:44 PM [facility] Calcium 7.1(L) 8.7 - 10.5 mg/dL 10/18/2024 6:44 PM [facility] BUN/Creatinine Ratio 16 10.0 - 25.0 Ratio 10/18/2024 6:44 PM [facility] Blood (Plasma/Serum) 10/18/2024 5:04 PM EST 10/18/2024 6:04 PM EST Fuad Winter MD LAB BLOOD ORD ERABLES [address] [address], [address] [place] [address] * XR Chest 1 view-Portable (10/18/2024 4:14 PM EST) Anatomical Region Laterality Modality Chest Computed Radiogr aphy 10/18/2024 3:54 PM EST Impressions 10/19/2024 2:34 PM EST 1. ??Interval worsening of now moderate pulmonary edema. Superimposed infectious/inflammatory process cannot be entirely excluded. 2. ??Trace bilateral pleural effusions unchanged. Interpreted by: ??Mitchell Ascencio DO [employer] I personally reviewed the images and the [...] effusions unchanged. Interpreted by: Mitchell Ascencio DO [employer] I personally reviewed the images and the [...] OF CARE TEST ORDERABLES Performing Organization Address [facility] [place] Number [facility] LAB See Below * (ABNORMAL) POCT Glucose, Fingerstick (10/18/2024 2:44 PM EST) POC Glucose 105(H) 65 - 99 mg/dL 10/18/2024 2:49 PM EST Blood specimen / Unknown 10/18/2024 2:44 PM EST 10/18/2024 2:48 PM EST Fuad Winter MD POINT OF CARE TEST ORDERABLES Performing Organization Address [facility] Number [facility] LAB See Below * POCT Glucose, Fingerstick (10/18/2024 1:44 PM EST) POC Glucose 92 65 - 99 mg/dL 10/18/2024 1:45 PM EST Blood specimen / Unknown 10/18/2024 1:44 PM EST 10/18/2024 1:45 PM EST Fuad Winter MD POINT OF CARE TEST ORDERABLES Performing Organization Address [facility] [place] Number [facility] LAB See Below * (ABNORMAL) POCT Glucose, Fingerstick (10/18/2024 1:24 PM EST) POC Glucose 102(H) 65 - 99 mg/dL 10/18/2024 1:44 PM EST Blood specimen / Unknown 10/18/2024 1:24 PM EST 10/18/2024 1:44 PM EST Fuad Winter MD POINT OF CARE TEST ORDERABLES Performing Organization Address [facility]/State/ZIP Co de Phone Number HOSPITAL LAB See [...] system. ?Dr. Pushpa Gallegos was notified by [place] text at 12:36 PM. Technical Details Definity [...] 65 - 99 mg/dL 10/18/2024 12:14 PM [facility] Comment:Fasting: <100 mg/dL, Non-Fasting: <200 mg/dL (ADA 2004) Blood Urea Nitrogen (BUN) 84(H) 8 - 21 mg/dL 10/18/2024 12:14 PM [facility] Creatinine 5.0(H) 0.5 - 1.3 mg/dL 10/18/2024 12:14 PM [facility] eGFR 11(L) >59 10/18/2024 12:14 PM [facility] Comment:CKD-EPI (2020) in mL /min/1.73 sq meters. Sodium 145 136 - 145 mmol/L 10/18/2024 12:14 PM [facility] Potassium 4.2 3.4 - 5.3 mmol/L 10/18/2024 12:14 PM [facility] Chloride 111(H) 98 - 107 mmol/L 10/18/2024 12:14 PM [facility] CO2 14(L) 22 - 33 mmol/L 10/18/2024 12:14 PM [facility] Anion Gap 20(H) 7 - 17 10/18/2024 12:14 PM [facility] Calcium 7.1(L) 8.7 - 10.5 mg/dL 10/18/2024 12:14 PM [facility] BUN/Creatinine Ratio 17 10.0 - 25.0 Ratio 10/18/2024 12:14 PM [facility] Blood (Plasma/Serum) 10/18/2024 11:25 AM EST 10/18/2024 11:49 AM EST Fuad Winter MD LAB BLOOD ORD ERABLES Performing Organization Address [facility] Phone Number [facility] [address] [place] [address], [address] [address] * (ABNORMAL) POCT Glucose, Fingerstick (10/18/2024 11:19 AM EST) POC Glucose 215(H) 65 - 99 mg/dL 10/18/2024 11:22 AM EST Blood specimen / Unknown 10/18/2024 11:19 AM EST 10/18/2024 11:22 AM EST Fuad Winter MD POINT OF CARE TEST ORDERABLES Performing Organization Address [facility] Phone Number [facility] LAB See Below * (ABNORMAL) POCT Glucose, Fingerstick (10/18/2024 10:16 AM EST) POC Glucose 289(H) 65 - 99 mg/dL 10/18/2024 10:17 AM EST Blood specimen / Unknown 10/18/2024 10:16 AM EST 10/18/2024 10:17 AM EST Fuad Winter MD POINT OF CARE TEST ORDERABLES Performing Organization Address [facility] Phone Number [facility] LAB See Below * Heparin Assay [...] MD LAB BLOOD ORDERABLES Performing Organization Address [facility]/State/[facility] Co de Phone Number [facility] [address] [place] [address], [facility] [address] [place] [address] * (ABNORMAL) Basic Metabolic Panel (10/18/2024 9:57 AM EST) Glucose 304(H) 65 - 99 mg/dL 10/18/2024 10:35 AM [facility] Comment:Fasting: <100 mg/dL, Non-Fasting: <200 mg/dL (ADA 2004) Blood Urea Nitrogen (BUN) 87(H) 8 - 21 mg/dL 10/18/2024 10:35 AM [facility] Creatinine 5.0(H) 0.5 - 1.3 mg/dL 10/18/2024 10:35 AM [facility] eGFR 11(L) >59 10/18/2024 10:35 AM [facility] Comment:CKD-EPI (2020) in mL /min/1.73 sq meters. Sodium 142 136 - 145 mmol/L 10/18/2024 10:35 AM [facility] Potassium 4.3 3.4 - 5.3 mmol/L 10/18/2024 10:35 AM [facility] Chloride 108(H) 98 - 107 mmol/L 10/18/2024 10:35 AM [facility] CO2 13(L) 22 - 33 mmol/L 10/18/2024 10:35 AM [facility] Anion Gap 21(H) 7 - 17 10/18/2024 10:35 AM [facility] Calcium 7.2(L) 8.7 - 10.5 mg/dL 10/18/2024 10:35 AM [facility] BUN/Creatinine Ratio 17 10.0 - 25.0 Ratio 10/18/2024 10:35 AM [facility] Blood (Plasma/Serum) 10/18/2024 9:57 AM EST 10/18/2024 10:10 AM EST Fuad Winter MD LAB BLOOD ORD ERABLES [address] [address], [address] [address] * (ABNORMAL) POCT Glucose, Fingerstick (10/18/2024 9:39 AM EST) POC Glucose 324(H) 65 - 99 mg/dL 10/18/2024 9:40 AM EST Blood specimen / Unknown 10/18/2024 9:39 AM EST 10/18/2024 9:40 AM EST Fuad Winter MD POINT OF CARE TEST ORDERABLES Performing Organization Address [facility] LAB See Below * (ABNORMAL) POCT Glucose, Fingerstick (10/18/2024 8:34 AM EST) POC Glucose 443(H) 65 - 99 mg/dL 10/18/2024 8:35 AM EST Blood specimen / Unknown 10/18/2024 8:34 AM EST 10/18/2024 8:35 AM EST Fuad Winter MD POINT OF CARE TEST ORDERABLES Performing Organization Address [facility] LAB See Below * (ABNORMAL) POCT Glucose, Fingerstick (10/18/2024 7:31 AM EST) POC Glucose 461(H) 65 - 99 mg/dL 10/18/2024 7:33 AM EST Blood specimen / Unknown 10/18/2024 7:31 AM EST 10/18/2024 7:33 AM EST Fuad Winter MD POINT OF CARE TEST ORDERABLES Performing Organization Address [facility] LAB See Below * (ABNORMAL) BASIC METABOLIC PANEL (10/18/2024 7:25 AM EST) Glucose 476(HH) 65 - 99 mg/dL 10/18/2024 8:03 AM [facility] Comment:Fasting: <100 mg/dL, Non-Fasting: <200 mg/dL (ADA 2005) Blood Urea Nitrogen (BUN) 84(H) 8 - 21 mg/dL 10/18/2024 8:03 AM [facility] Creatinine 5.0(H) 0.5 - 1.3 mg/dL 10/18/2024 8:03 AM [facility] eGFR 11(L) >59 10/18/2024 8:03 AM [facility] Comment:CKD-EPI (2020) in mL /min/1.73 sq meters. Sodium 139 136 - 145 mmol/L 10/18/2024 8:03 AM [facility] Potassium 4.5 3.4 - 5.3 mmol/L 10/18/2024 8:03 AM [facility] Chloride 106 98 - 107 mmol/L 10/18/2024 8:03 AM [facility] CO2 12(LL) 22 - 33 mmol/L 10/18/2024 8:03 AM [facility] Anion Gap 21(H) 7 - 17 10/18/2024 8:03 AM [facility] Calcium 6.6(LL) 8.7 - 10.5 mg/dL 10/18/2024 8:03 AM [facility] BUN/Creatinine Ratio 17 10.0 - 25.0 Ratio 10/18/2024 8:03 AM [facility] Plasma/Serum 10/18/2024 7:25 AM EST 10/18/2024 7:33 AM EST Fuad Winter MD [place] [address], [place] [address] * (ABNORMAL) Troponin T, High Sensitivity - STAT and in 1 hour (10/18/2024 7:25 AM EST) High Sensitivity Troponin T 2,403(HH) <23 ng/L 10/18/2024 8:03 AM [facility] Comment:Recurring Critical R esult. Previously phoned. Delta (Change) 573(H) <3 10/18/2024 8:03 AM [facility] Comment:Increased Blood (Plasma/Serum) 10/18/2024 7:25 AM EST 10/18/2024 7:33 AM EST Fuad Winter MD [place] [address], [facility] [address] [facility] [place] [address] * (ABNORMAL) POCT Glucose, Fingerstick (10/18/2024 6:28 [...] atelectasis, respectively. Interpreted by: ??Prem Coffman MD [employer] I personally reviewed the images and the [...] atelectasis, respectively. Interpreted by: Prem Coffman MD [employer] I personally reviewed the images and the resident's preliminary report and AGREE with the report as it is now presented ([id number]). Fuad Winter MD IMG DIAGNOSTI C IMAGING ORDERABLES * ECG 12 lead (10/18/2024 5:28 AM EST) Ventricular rate 89 BPM EKG [facility] QRS [facility] interval 366 [facility] QTC calculation (Bazett) 446 ms EKG [facility] R axis 36 degrees EKG [facility] T axis 184 degrees EKG [facility] 10/18/2024 5:28 AM EST Narrative G [facility] - 10/18/2024 9:43 AM EST Normal sinus rhythm ST & T wave abnormality, consider lateral ischemia Abnormal ECG No previous ECGs available Confirmed by MD Ortiz Daniel ([id number]) on 10/18/2024 9:42:59 AM Procedure Note Alonso Ortiz MD - 10/18/[address] & T wave abnormality, consider lateral ischemia Abnormal ECG No previous ECGs available Confirmed by MD Ortiz Daniel ([id number]) on 10/18/2024 9:42:59 AM Fuad Winter MD [facility] * (ABNORMAL) POCT Glucose, Fingerstick (10/18/2024 5:24 AM EST) [facility] POC Glucose >500(H) 65 - 99 mg/dL 10/18/2024 5:25 AM EST Blood specimen / Unknown 10/18/2024 5:24 AM EST 10/18/2024 5:25 AM EST Fuad Winter MD POINT OF CARE TEST ORDERABLES HOSPITAL LAB See Below * Heparin Assay (Anti-Xa) (10/18/2024 5:16 AM EST) [facility] Anti Xa 0.72 IU/mL 10/18/2024 5:58 [...] LAB BLOOD ORD ERABLES Performing Organization Address City/[facility]/[place] [address], [place] [address] * (ABNORMAL) Partial Thromboplastin Time (PTT) (10/18/2024 5:16 AM EST) Anticoagulant IV HEPARIN, UNFRACTIONATED 10/18/2024 5:18 AM EST Partial Thromboplastin Time (PTT) 68(H) 25 - 36 seconds 10/18/2024 5:58 AM EST [facility] Blood Plasma specimen / Unknown 10/18/2024 5:16 AM EST 10/18/2024 5:42 AM EST Fuad Winter MD LAB BLOOD ORD ERABLES Performing Organization Address City/[facility]/[place] [address], [place] [address] * (ABNORMAL) Protime-INR (10/18/2024 5:16 AM EST) Anticoagulant IV HEPARIN, UNFRACTIONATED 10/18/2024 5:18 AM EST Prothrombin Time (PT) 13.9(H) 10.0 - 13.5 seconds 10/18/2024 5:58 AM [facility] INR 1.2 10/18/2024 5:58 AM [facility] Comment:INR Therapeutic Rang es: Standard dose anticoagulant 2.0 to 3.0, High dose anticoagulant 2.5-3.5. Blood Plasma specimen / Unknown 10/18/2024 5:16 AM EST 10/18/2024 5:42 AM EST Fuad Winter MD LAB BLOOD ORD ERABLES Performing Organization Address City/[facility]/[place] [address], [place] [address] * (ABNORMAL) proBNP, N-terminal (BNP) (10/18/2024 5:16 AM EST) proBNP, N-terminal >70,000(H) <450 pg/mL 10/18/2024 7:21 AM [facility] Blood Plasma specimen / Unknown 10/18/2024 5:16 AM EST 10/18/2024 5:42 AM EST Fuad Winter MD LAB BLOOD ORD ERABLES Performing Organization Address City/[facility]/[place] [address], [place] [address] * (ABNORMAL) B-Hydroxybutyrate (10/18/2024 5:16 AM EST) B-Hydroxybutyrate 3.63(H) <0.28 mmol/L 10/18/2024 6:38 AM [facility] Comment: In the presence of [...] LAB BLOOD ORD ERABLES Performing Organization Address City/[facility] [place] [address], [place] [address] * (ABNORMAL) Osmolality (10/18/2024 5:16 AM EST) Osmolality, Serum/Plasma 359(H) 285 - 295 mOsm/Kg 10/18/2024 6:43 AM [facility] Blood (Plasma/Serum) 10/18/2024 5:16 AM EST 10/18/2024 5:42 AM EST Fuad Winter MD LAB BLOOD ORD ERABLES Performing Organization Address [facility] [place] [address], [place] [address] * (ABNORMAL) Blood Gas, Venous (10/18/2024 5:16 AM EST) [facility] Venous Blood PH 7.18(LL) 7.33 - 7.43 10/18/2024 5:55 AM [facility] Comment:Test results repeate d. Venous pCO2 27(L) 35 - 50 mmHG 10/18/2024 5:55 AM [facility] Venous pO2 78(H) 0 - 60 mmHG 10/18/2024 5:55 AM [facility] Venous Total CO2 11(L) 23 - 29 mmol/L 10/18/2024 5:55 AM [facility] Respiratory Info NASAL 5 L/MIN 10/18/2024 5:17 AM EST Base Deficiency 17.1 mmol/L 5:55 AM [facility] Comment:Reference Range: Neg ative 2 to Positive 3 Blood Blood specimen / Unknown 10/18/2024 5:16 AM EST 10/18/2024 5:40 AM EST Fuad Winter MD LAB BLOOD ORD ERABLES [facility] [address] [place] [address], [facility] [address] [place] [address] * (ABNORMAL) Complete Blood Count, with Differential (10/18/2024 5:16 AM [facility]) White Blood Cell Count 11.5(H) 4.0 - 11.0 Thou/uL 10/18/2024 5:48 AM [facility] Platelet Count 265 150 - 450 Thou/uL 10/18/2024 5:48 AM [facility] Hemoglobin 8.5(L) 13.0 - 17.7 g/dL 10/18/2024 5:48 AM [facility] Hematocrit 27.7(L) 39.0 - 54.0 % 10/18/2024 5:48 AM [facility] Red Blood Cell Count 2.72(L) 4.50 - 6.20 Mil/uL 10/18/2024 5:48 AM [facility] MCV 102(H) 80 - 100 fL 10/18/2024 5:48 AM [facility] MCH 31.3(H) 27.0 - 31.0 pg 10/18/2024 5:48 AM [facility] MCHC 30.7 30.0 - 36.0 g/dL 10/18/2024 5:48 AM [facility] RDW 16.4(H) 11.5 - 14.5 % 10/18/2024 5:48 AM [facility] MPV 11.3 7.5 - 12.5 fL 10/18/2024 5:48 AM [facility] Neutrophils Auto 86.0 % 10/18/19 5:48 AM [facility] Immature Granulocytes 0.4 % 10/18/2024 5:48 AM [facility] Lymphocytes Auto 9.2 % 10/18/19 5:48 AM [facility] Monocytes Auto 4.3 % 10/18/2024 5:48 AM [facility] Eosinophils Auto 0.0 % 10/18/19 5:48 AM [facility] Basophils Auto 0.1 % 10/18/2024 5:48 AM [facility] Abs Neutrophils Auto 9.88(H) 2.00 - 7.50 Thou/uL 10/18/2024 5:48 AM [facility] Abs Immature Granulocytes 0.05 0.00 - 0.10 Thou/uL 10/18/2024 5:48 AM [facility] Abs Lymphocytes Auto 1.06(L) 1.50 - 4.50 Thou/uL 10/18/2024 5:48 AM [facility] Abs Monocytes Auto 0.49 0.20 - 1.50 Thou/uL 10/18/2024 5:48 AM [facility] Abs Eosinophils Auto 0.00 0.00 - 0.70 Thou/uL 10/18/2024 5:48 AM [facility] Abs Basophils Auto 0.01 0.00 - 0.20 Thou/uL 10/18/2024 5:48 AM [facility] Blood Blood specimen / Unknown 10/18/2024 5:16 AM EST 10/18/2024 5:42 AM EST Fuad Winter MD [place] [address], [place] [address] * (ABNORMAL) Troponin T, High Sensitivity - STAT and in 1 hour (10/18/2024 5:16 AM EST) [facility] High Sensitivity Troponin T 1,830(HH) <23 ng/L 10/18/2024 6:38 AM [facility] Delta (Change) NO PREVIOUS RESULT <3 10/18/2024 6:38 AM [facility] Blood (Plasma/Serum) 10/18/2024 5:16 AM EST 10/18/2024 5:42 AM EST Fuad Winter MD [place] [address], [place] [address] * Magnesium (10/18/2024 5:16 AM EST) [facility] Magnesium 1.7 1.6 - 2.7 mg/dL 10/18/2024 6:38 AM [facility] Blood (Plasma/Serum) 10/18/2024 5:16 AM EST 10/18/2024 5:42 AM EST Fuad Winter MD LAB BLOOD ORD ERABLES [address] [address], [address] [address] * (ABNORMAL) Basic Metabolic Panel (10/18/2024 5:16 AM EST) Glucose 569(HH) 65 - 99 mg/dL 10/18/2024 6:38 AM [facility] Comment:Fasting: <100 mg/dL, Non-Fasting: <200 mg/dL (ADA 2004) Blood Urea Nitrogen (BUN) 83(H) 8 - 21 mg/dL 10/18/2024 6:38 AM [facility] Creatinine 4.9(H) 0.5 - 1.3 mg/dL 10/18/2024 6:38 AM [facility] eGFR 11(L) >59 10/18/2024 6:38 AM [facility] Comment:CKD-EPI (2020) in mL /min/1.73 sq meters. Sodium 140 136 - 145 mmol/L 10/18/2024 6:38 AM [facility] Potassium 4.9 3.4 - 5.3 mmol/L 10/18/2024 6:38 AM [facility] Chloride 104 98 - 107 mmol/L 10/18/2024 6:38 AM [facility] CO2 8(LL) 22 - 33 mmol/L 10/18/2024 6:38 AM [facility] Anion Gap 28(H) 7 - 17 10/18/2024 6:38 AM [facility] Calcium 6.6(LL) 8.7 - 10.5 mg/dL 10/18/2024 6:38 AM [facility] BUN/Creatinine Ratio 17 10.0 - 25.0 Ratio 10/18/2024 6:38 AM [facility] Blood (Plasma/Serum) 10/18/2024 5:16 AM EST 10/18/2024 5:42 AM EST Fuad Winter MD LAB BLOOD ORD ERABLES [facility] [address] [place] [address], [address] [id number] documented in this encounter Visit Diagnoses Diagnosis [...] = 50 units/mL, Indication for Anticoagulation: Acute [place] New Bag 10/31/2024 4:37 PM EST 14 [...] = 50 units/mL, Indication for Anticoagulation: Acute UT 0739 (Handoff - Provider: Torie Kwan RN [...] documented as of this encounter Care Teams [employer] Equipment [employer] Relationship Specialty Start Date End Date Diaz Akers MD PCP - General Internal Medicine 10/20/24 documented as of this encounter
--- OUTSIDE RECORDS SUMMARY | 2024-11-14 15:43 | XMS_ITS | Clinical Summary ---
Author Organization [facility] Address [address] [place] [address] Care Team Providers Care Water Purifier Name Role Phone Diaz Akers MD Primary [...] EST - 10/31/2024 6:26 PM EST Surgery [facility] [place] [facility] - Cardiac Catheterization Laboratory [address] [place] [address] Calixto Urñea MD CORONARY ANGIO W/LV 10/19/2024 Scanned Document CARDIOLOGY IP [address] [facility] [place] [address] JordanSejal rodriguez Tonia 10/18/2024 5:10 AM EST - 11/01/2024 4:42 PM EST Hospital Encounter [facility]TH 10 [address] [facility] [place] [address] Fuad Winter MD Perkins, MD El [...] Tobacco: Never Tobacco Cessation:Counseling Given: Not Answered [facility] Utilities Answer Date Recorded In the past 12 months has [employer], gas, oil, or water [employer] threatened to shut off services in your [...] any time in the past 12 m [facility], were you homeless or living [...] 4.0 - 11.0 Thou/uL 11/01/2024 7:10 AM [facility] Platelet Count 261 150 - 450 Thou/uL 11/01/2024 7:10 AM [facility] Hemoglobin 9.2(L) 13.0 - 17.7 g/dL 11/01/2024 7:10 AM [facility] Hematocrit 29.7(L) 39.0 - 54.0 % 11/01/2024 7:10 AM [facility] Red Blood Cell Count 3.00(L) 4.50 - 6.20 Mil/uL 11/01/2024 7:10 AM [facility] MCV 99 80 - 100 fL 11/01/2024 7:10 AM [facility] MCH 30.7 27.0 - 31.0 pg 11/01/2024 7:10 AM [facility] MCHC 31.0 30.0 - 36.0 g/dL 11/01/2024 7:10 AM [facility] RDW 16.2(H) 11.5 - 14.5 % 11/01/2024 7:10 AM [facility] MPV 11.4 7.5 - 12.5 fL 11/01/2024 7:10 AM [facility] Blood Blood specimen / Unknown 11/01/2024 6:20 AM EST 11/01/2024 6:57 AM EST Jonna Donis PA-C [place] [address], [place] [address] * (ABNORMAL) Phosphorus (Early AM) (11/01/2024 6:20 AM EST) Only the most recent of15 resultswithin the time period is included. Phosphorus 4.7(H) 2.7 - 4.5 mg/dL 11/01/2024 7:58 AM [facility] Blood (Plasma/Serum) 11/01/2024 6:20 AM EST 11/01/2024 6:57 AM EST Jonna L Valley PA-C LAB BLOOD ORDERABL ES Performing Organization Address [facility] [place] [address], [place] [address] * MAGNESIUM (11/01/2024 6:20 AM EST) Only the most recent of17 resultswithin the time period is included. Magnesium 1.6 1.6 - 2.7 mg/dL 11/01/2024 7:58 AM [facility] Blood (Plasma/Serum) 11/01/2024 6:20 AM EST 11/01/2024 6:57 AM EST Jonna Giraldo [employer] PA-C LAB BLOOD ORDERABL ES Performing Organization Address [facility] [place] [address], [place] [address] * (ABNORMAL) BASIC METABOLIC PANEL (11/01/2024 6:20 AM EST) Only the most recent of29 resultswithin the time period is included. Glucose 92 65 - 99 mg/dL 11/01/2024 7:58 AM [facility] Comment:Fasting: <100 mg/dL, Non-Fasting: <200 mg/dL (ADA 2005) Blood Urea Nitrogen (BUN) 41(H) 8 - 21 mg/dL 11/01/2024 7:58 AM [facility] Creatinine 4.5(H) 0.5 - 1.3 mg/dL 11/01/2024 7:58 AM [facility] eGFR 13(L) >59 11/01/2024 7:58 AM [facility] Comment:CKD-EPI (2020) in mL /min/1.73 sq meters. Sodium 140 136 - 145 mmol/L 11/01/2024 7:58 AM [facility] Potassium 4.8 3.4 - 5.3 mmol/L 11/01/2024 7:58 AM [facility] Chloride 104 98 - 107 mmol/L 11/01/2024 7:58 AM [facility] CO2 22 22 - 33 mmol/L 11/01/2024 7:58 AM EST [facility] Anion Gap 14 7 - 17 11/01/2024 7:58 AM [facility] Calcium 9.3 8.7 - 10.5 mg/dL 11/01/2024 7:58 AM EST [facility] BUN/Creatinine Ratio 9(L) 10.0 - 25.0 Ratio 11/01/2024 7:58 AM EST [facility] Blood (Plasma/Serum) 11/01/2024 6:20 AM EST 11/01/2024 6:57 AM EST Jonna Donis PA-C [place] [address], [place] [address] * CC CORONARY ANGIO W/LV (10/31/2024 6:34 PM EST) Anatomical Region Laterality Modality Radiographic Keily ging Narrative 10/31/2024 6:57 PM EST Table formatting from the original result was not included. Images from the original result were not included. [facility] [place] [facility] - Cardiac Catheterization Laboratory PATIENT DEMOGRAPHIC INFORMATION Name: Jorge Wilder : 1945 79 y.o. 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 Calixto Ureña MD [facility] [place] 10/31/2024 ??6:57 PM Coronary Findings Diagnostic Dominance: [...] MD LAB BLOOD ORDERABLES Performing Organization Address [facility] [place] [address], [place] [address] * (ABNORMAL) High Sensitivity Troponin T (10/31/2024 7:16 AM EST) Only the most recent of12 resultswithin the time period is included. High Sensitivity Troponin T 396(HH) <23 ng/L 10/31/2024 9:15 AM EST [facility] Delta (Change) NO PREVIOUS RESULT <3 10/31/2024 9:15 AM EST [facility] Plasma/Serum 10/31/2024 7:16 AM EST 10/31/2024 7:47 AM EST Madhav Ryan MD LAB BLOOD ORDERABLES Performing Organization Address [facility] [place] [address], [place] [address] * TSH, HIGHLY SENSITIVE (10/31/2024 7:16 AM EST) TSH, Highly Sensitive 2.06 0.27 - 4.20 mIU/L 10/31/2024 9:15 AM EST [facility] Plasma/Serum 10/31/2024 7:16 AM EST 10/31/2024 7:47 AM EST Madhav Ryan MD LAB BLOOD ORDERABLES Performing Organization Address [facility] Co de Phone Number [place] [phone], [place] [address] * (ABNORMAL) proBNP, N-terminal (10/29/2024 7:20 AM EST) Only the most recent of2 resultswithin the time period is included. proBNP, N-terminal 47,866(H) <450 pg/mL 10/29/2024 12:12 PM EST [facility] Plasma specimen / Unknown 10/29/2024 7:20 AM EST 10/29/2024 8:04 AM EST Madhav Ryan MD [place] [address], [place] [address] * ECG 12 lead (STAT) (10/27/2024 7:41 AM EST) Only the most recent of6 resultswithin the time period is included. Ventricular rate 60 BPM EKG [facility] Atrial rate 60 BPM EKG [facility] P-R interval 150 ms EKG [facility] QRS duration 84 ms EKG [facility] Q-T interval 488 ms EKG [facility] QTC calculation (Bazett) 488 ms EKG [facility] P axis 45 degrees EKG [facility] R axis 13 degrees EKG [facility] T axis 199 degrees EKG [facility] 10/27/2024 7:41 AM EST Narrative EKG [...] in Anterior leads Confirmed by MD Ashish, [facility] ([id number]) on 10/27/2024 6:03:18 PM Madhav Ryan MD ECG ORDERABLES EKG [facility] * XR Chest 1 view-Portable (STAT) [...] 24 - 204 U/L 10/25/2024 10:25 AM [facility] Plasma/Serum 10/25/2024 8:27 AM EST 10/25/2024 9:16 AM EST Jorge Mcfarland MD LAB BLOOD ORDERAB LES Performing Organization Address [facility] [place] [address], [address] [address] * (ABNORMAL) B-Hydroxybutyrate (10/24/2024 7:11 AM EST) Only the most recent of4 resultswithin the time period is included. B-Hydroxybutyrate 2.36(H) <0.28 mmol/L 10/24/2024 10:30 AM [facility] Comment: In the presence of uncontrolled [...] MD LAB BLOOD ORDERABLES Performing Organization Address [facility] [place] [address], [address] [address] * (ABNORMAL) PTH, Intact (10/23/2024 10:31 AM EST) PTH, Intact 579(H) 15 - 65 pg/mL 10/23/2024 12:23 PM [facility] Blood (Plasma/Serum) 10/23/2024 10:31 AM EST 10/23/2024 11:36 AM EST Jorge Mcfarland MD LAB BLOOD ORDERAB LES Performing Organization Address [facility] [place] [address], [place] [address] * (ABNORMAL) Calcium, Ionized (10/23/2024 10:31 AM EST) Calcium, Ionized 0.88(L) 1.17 - 1.33 mmol/L 10/23/2024 12:16 PM EST [facility] Blood Blood specimen / Unknown 10/23/2024 10:31 AM EST 10/23/2024 11:36 AM EST Jorge Mcfarland MD LAB BLOOD ORDERAB LES Performing Organization Address [facility] [place] [address], [place] [address] * (ABNORMAL) Calcium, Total (10/23/2024 10:31 AM EST) Calcium 7.4(L) 8.7 - 10.5 mg/dL 10/23/2024 12:13 PM EST [facility] Blood (Plasma/Serum) 10/23/2024 10:31 AM EST 10/23/2024 11:36 AM EST Jorge Mcfarland MD LAB BLOOD ORDERAB LES Performing Organization Address City/[facility] [place] [address], [place] [address] * Albumin (10/23/2024 10:31 AM EST) Albumin 3.5 3.4 - 4.8 g/dL 10/23/2024 12:13 PM EST [facility] Blood (Plasma/Serum) 10/23/2024 10:31 AM EST 10/23/2024 11:36 AM EST Jorge Mcfarland MD LAB BLOOD ORDERAB LES Performing Organization Address City/[facility]/ZIP Co de Phone Number [facility] [address] [place] [address], [facility] [address] [place] [address] * (ABNORMAL) LIPID PANEL (10/23/2024 6:05 AM EST) Cholesterol, Total 110 <200 mg/dL 2024 8:30 AM [facility] Triglycerides 141 <150 mg/dL 10/23/2024 8:30 AM [facility] Cholesterol, HDL 30(L) >39 mg/dL 10/23/19 8:30 AM [facility] Estimated LDL 52 <130 mg/dL 10/23/2024 8:30 AM [facility] Comment: NCEP Guidelines: ?< 100 mg/dL ??Optimal 100 - 129 mg/dL ??Near Optimal/Above Optimal 130 - 159 mg/dL ??Borderline High 160 - 189 mg/dL ??High ??>/= 190 mg/dL ??Very High Cholesterol/HDL Ratio 3.7 0.0 - 5.0 Ratio 10/23/2024 8:30 AM [facility] Comment: Relative Risk ? Ratio - Male ? Ratio - Female ?0.5 ?3.4 ?3.3 ?1.0 ?5.0 ?4.4 ?2.0 ?9.6 ?7.1 ?3.0 ? 23.4 ? 11.0 Plasma/Serum 10/23/2024 6:05 AM EST 10/23/2024 7:46 AM EST Adilia Woo MD [place] [address], [place] [address] * (ABNORMAL) Blood Gas, Venous (10/20/2024 10:39 AM EST) Only the most recent of7 resultswithin the time period is included. Venous Blood PH 7.29(L) 7.33 - 7.43 10/20/2024 10:54 AM EST [facility] Venous pCO2 39 35 - 50 mmHG 10/20/2024 10:54 AM [facility] Venous pO2 49 0 - 60 mmHG 10/20/2024 10:54 AM [facility] Venous Total CO2 20(L) 23 - 29 mmol/L 10/20/2024 10:54 AM [facility] Respiratory Info NASAL 4 L/MIN 10/20/2024 10:39 AM EST Base Deficiency 7.2 mmol/L 10:54 AM [facility] Comment:Reference Range: Neg ative 2 to Positive 3 Blood Blood specimen / Unknown 10/20/2024 10:39 AM EST 10/20/2024 10:47 AM EST Kristopher Hickey MD LAB BLOOD ORDERAB LES Performing Organization Address [facility] [place] [address], [place] [address] * Lactic Acid, Plasma (STAT) (10/20/2024 10:00 AM EST) Only the most recent of2 resultswithin the time period is included. Lactic Acid 0.8 0.5 - 1.9 mmol/L 10/20/2024 10:37 AM EST [facility] Blood Plasma specimen / Unknown 10/20/2024 10:00 AM EST 10/20/2024 10:07 AM EST Kristopher Hickey MD LAB BLOOD ORDERAB LES Performing Organization Address City/[facility] [place] [address], [facility] [address] [place] [address] * (ABNORMAL) Complete Blood Count, with Differential (10/19/2024 11:59 PM EST) Only the most recent of2 resultswithin the time period is included. White Blood Cell Count 11.5(H) 4.0 - 11.0 Thou/uL 10/20/2024 12:32 AM [facility] Platelet Count 271 150 - 450 Thou/uL 10/20/2024 12:32 AM [facility] Hemoglobin 8.9(L) 13.0 - 17.7 g/dL 10/20/2024 12:32 [facility] Hematocrit 28.6(L) 39.0 - 54.0 % 10/20/2024 12:32 AM [facility] Red Blood Cell Count 2.93(L) 4.50 - 6.20 Mil/uL 10/20/2024 12:32 [facility] MCV 98 80 - 100 fL 10/20/2024 12:32 AM [facility] MCH 30.4 27.0 - 31.0 pg 10/20/2024 12:32 AM [facility] MCHC 31.1 30.0 - 36.0 g/dL 10/20/2024 12:32 AM [facility] RDW 16.5(H) 11.5 - 14.5 % 10/20/2024 12:32 [facility] MPV 11.3 7.5 - 12.5 fL 10/20/2024 12:32 AM [facility] Neutrophils Auto 80.7 % 10/20/19 25 12:32 AM [facility] Immature Granulocytes 0.6 % 10/20/2024 12:32 [facility] Lymphocytes Auto 11.6 % 10/20/19 12:32 [facility] Monocytes Auto 6.7 % 10/20/2024 12:32 [facility] Eosinophils Auto 0.2 % 10/20/19 12:32 [facility] Basophils Auto 0.2 % 10/20/2024 12:32 [facility] Abs Neutrophils Auto 9.25(H) 2.00 - 7.50 Thou/uL 10/20/2024 12:32 AM [facility] Abs Immature Granulocytes 0.07 0.00 - 0.10 Thou/uL 10/20/2024 12:32 AM [facility] Abs Lymphocytes Auto 1.33(L) 1.50 - 4.50 Thou/uL 10/20/2024 12:32 AM [facility] Abs Monocytes Auto 0.77 0.20 - 1.50 Thou/uL 10/20/2024 12:32 AM [facility] Abs Eosinophils Auto 0.02 0.00 - 0.70 Thou/uL 10/20/2024 12:32 AM [facility] Abs Basophils Auto 0.02 0.00 - 0.20 Thou/uL 10/20/2024 12:32 AM [facility] Blood Blood specimen / Unknown 10/19/2024 11:59 PM EST 10/20/2024 12:25 AM EST Fuad Winter MD LAB BLOOD ORD ERABLES Performing Organization Address City/[facility]/[place] [address], [place] [address] * (ABNORMAL) Hemoglobin and Hematocrit (10/19/2024 2:25 PM EST) [facility] Hematocrit 32.3(L) 39.0 - 54.0 % 10/19/2024 3:39 PM [facility] Hemoglobin 9.9(L) 13.0 - 17.7 g/dL 10/19/2024 3:39 PM [facility] Blood Blood specimen / Unknown 10/19/2024 2:25 PM EST 10/19/2024 3:31 PM EST Kristopher Hickey MD [place] [address], [place] [address] * (ABNORMAL) Hemoglobin A1C with Estimated Average Glucose (10/19/2024 1:20 AM EST) [facility] Hemoglobin A1C 8.7(H) <5.7 % 10/19/2024 12:02 PM EST [facility] Comment: A1c% ? Interpretation 5.7 - 6.0 ?Increase risk of diabetes 6.1 - 6.4 ?Higher risk of diabetes > or = 6.5 ?? Consistent with diabetes Diabetes Care, 33(Supp 1):S1-S61, 2009 Estimated Average Glucose 203 mg/dL 10/19/2024 12:02 PM EST [facility] Blood specimen / Unknown 10/19/2024 1:20 AM EST 10/19/2024 2:17 AM EST Pushpa Gallegos MD LAB BLOOD ORDERABLES Performing Organization Address City/State/[facility] [place] [address], [place] [address] * US Guided Bedside Thoracentesis-Bilateral (10/18/2024 6:10 [...] Sample left with bedside RN. ACCESS: 6 [place]ian Uzow-E-Btvpskuz closed needle/catheter system ?? REQUESTING PRACTITIONER: Cheryl [...] adjacent organs or vascular structures. A 6 [place]ian Xwyl-B-Tsesnwvc closed needle/catheter system was utilized for access. [...] adjacent organs or vascular structures. A 6 [place] Jskv-Y-Kqsfazzy closed needle/catheter system was utilized for access. 550 mL of clear devorah fluid was aspirated before drainage ceased. The catheter was removed and a sterile dressing applied. The patient tolerated the procedure well without evidence of complications. ?? Pushpa Gallegos MD [facility] ORDERABLES * Body Fluid Culture (aerobic, anaerobic and Gram stain) (10/18/2024 5:55 PM EST) Only the most recent of2 resultswithin the time period is included. Gram stain suggestive of Few neutrophils Mononuclear cells No organisms seen 10/18/2024 9:52 PM [facility] Culture No aerobes and anaerobes isolated after 7 days 10/25/2024 3:19 PM EST [facility] 10/18/2024 5:55 PM EST 10/18/2024 7:53 PM EST Fuad Winter MD MICROBIOLOGY - GENERAL ORDERABLES [facility] [address] [place] [address], [facility] [address] [place] [address] * Fungal Culture, Other Than Blood (10/18/2024 5:55 PM EST) Culture No fungus isolated 11/02/2024 8:34 AM EST [facility] 10/18/2024 5:55 PM EST 10/18/2024 7:54 PM EST Fuad Winter MD MICROBIOLOGY - GENERAL ORDERABLES Performing Organization Address City/[facility]/ZIP Co de Phone Number [facility] [address] [place] [address], * Cell Count, Reflex Differential, Body Fluid (10/18/2024 5:50 PM EST) Only the most recent of2 resultswithin the time period is included. Appearance, Body Fluid Cloudy 10/18/2024 8:25 PM EST [facility] Color [place] 10/18/2024 8:25 PM [facility] Nucleated Cells, Fluid 435 /CUMM 10/18/2024 8:24 PM [facility] RBC, Fluid 11,000 /CUMM 10/18/2024 8:24 PM [facility] Neutrophil, Body Fluid 3 % 10/18/2024 8:25 PM [facility] Lymphoctye, Body Fluid 27 % 10/18/2024 8:25 PM [facility] Monocyte, Body Fluid 21 % 10/18/2024 8:25 PM [facility] Histiocyte, Body Fluid 46 % 10/18/2024 8:25 PM [facility] Mesothelial, Body Fluid 3 % 10/18/2024 8:25 PM [facility] Smear Comment, Body Fluid The reference interval and other method performance specifications are unavailable for this body fluid. Comparison of the result with concentration in the blood, serum, or plasma is recommended 10/18/2024 8:25 PM EST [facility] 10/18/2024 5:50 PM EST 10/18/2024 6:49 PM EST Fuad Winter MD BODY FLUIDS A ND STOOLS ORDERABLES Performing Organization Address [facility] de Phone Number [address] [address], [place] [address] * Protein, Body Fluid (10/18/2024 5:50 PM EST) Only the most recent of2 resultswithin the time period is included. Source RIGHT PLEURAL EFFUSION 10/18/2024 6:49 PM EST [facility] Protein, Body Fluid 2.2 g/dL 10/18/2024 7:15 PM [facility] Comment:The reference interv al(s) and other method performance specifications are unavailable for this body fluid. Comparison of this result with the concentration in the blood, serum, or plasma is recommended. 10/18/2024 5:50 PM EST 10/18/2024 6:49 PM EST Fuad Winter MD BODY FLUIDS A ND STOOLS ORDERABLES Performing Organization Address [facility] Co de Phone Number [address] [address], [place] [address] * Glucose, Body Fluid (10/18/2024 5:50 PM [...] A ND STOOLS ORDERABLES Performing Organization Address [facility] [place] [address], [place] [address] * PH, BODY FLUID (10/18/2024 5:50 PM EST) Only the most recent of2 resultswithin the time period is included. Source RIGHT PLEURAL EFFUSION 10/18/2024 6:49 PM EST [facility] pH, Body Fluid 7.34 10/18/2024 7:14 PM EST [facility] 10/18/2024 5:50 PM EST 10/18/2024 6:49 PM EST Fuad Winter MD BODY FLUIDS A ND STOOLS ORDERABLES Performing Organization Address [facility] [place] [address], [place] [address] * LDH - Pleural Fluid (10/18/2024 5:39 [...] AND STOO LS ORDERABLES Performing Organization Address [facility] [place] [address], [place] [address] * ECHOCARDIOGRAM COMPREHENSIVE WITH CONTRAST (10/18/2024 12:14 [...] system. ?Dr. Pushpa Gallegos was notified by [facility] text at 12:36 PM. Technical Details Definity [...] LAB BLOOD ORD ERABLES Performing Organization Address [facility] [place] [address], [place] [address] * (ABNORMAL) Protime-INR (10/18/2024 5:16 AM EST) Anticoagulant IV HEPARIN, UNFRACTIONATED 10/18/2024 5:18 AM EST Prothrombin Time (PT) 13.9(H) 10.0 - 13.5 seconds 10/18/2024 5:58 AM EST [facility] INR 1.2 10/18/2024 5:58 AM EST [facility] Comment:INR Therapeutic Rang es: Standard dose anticoagulant 2.0 to 3.0, High dose anticoagulant 2.5-3.5. Blood Plasma specimen / Unknown 10/18/2024 5:16 AM EST 10/18/2024 5:42 AM EST Fuad Winter MD LAB BLOOD ORD ERABLES Performing Organization Address [facility] [place] [address], [place] [address] * (ABNORMAL) Osmolality (10/18/2024 5:16 AM EST) Osmolality, Serum/Plasma 359(H) 285 - 295 mOsm/Kg 10/18/2024 6:43 AM EST [facility] Blood (Plasma/Serum) 10/18/2024 5:16 AM EST 10/18/2024 5:42 AM EST Fuad Winter MD LAB BLOOD ORD ERABLES Performing Organization Address City/[facility]/[place] [address], [address] [place] [address] from Last 3 Months Advance Directives * Full Code (Latest Code Status on File) Date Activated Date Inactivated Comments 10/18/2024 7:04 AM Care Teams Water Purifier Relationship Specialty Start Date End Date Diaz Akers MD PCP - General Internal Medicine 10/20/24
--- OUTSIDE RECORDS SUMMARY | 2024-11-14 15:43 | XMS_ITS | Encounter Summary ---
Author Organization [facility] Address [address] [place] [address] Phone Care Team Providers Care Children'S Nursery Assistant Name Role Phone Unavailable Primary Care Provider Unavailabl e Encounter Details Date Type Department Care Team (Late st Contact Info) Description 08/16/2023 Office Communication [facility] [address] [facility] [address] [place] [address] Kang Britt MD [address] [facility] [address] [place] [address] Social History Tobacco Use Types [...]
--- OUTSIDE RECORDS SUMMARY | 2024-11-14 15:43 | XMS_ITS | Clinical Summary ---
Author Organization [facility] Address [address] [facility] [address] [place] [address] Phone Care Team Providers Care Professional Programmer Analyst Name Role Phone Unavailable Primary Care Provider [...] renal failure,Chronic kidney disease stage 4 (HCC) 70432 Units IJ Every 21 days 07/09/2021 Active epoetin kelley (EPOGEN,PROCRIT) injection 20,000 UnitsIndications:Anemia due to Renal Failure 73755 Units IV Every 14 days 08/16/2022 Active epoetin kelley (EPOGEN,PROCRIT) injection 10,000 UnitsIndications:Anemia due to Renal Failure 57404 Units IV Every 14 days 08/30/2022 Active epoetin kelley (EPOGEN,PROCRIT) injection 10,000 UnitsIndications:Anemia due to Renal Failure 74936 Units IV Every 14 days 09/27/2022 Active Epoetin Kelley-epbx solution 30,000 UnitsIndications:Anemia in chronic kidney disease,Chronic kidney disease stage 4 (HCC) 51894 Units IJ Once 12/13/2022 Ac tive Epoetin Kelely-epbx solution 20,000 UnitsIndications:Anemia in chronic kidney disease,Chronic kidney disease stage 4 (HCC) 04621 Units IJ Once 12/27/2022 Ac tive Active [...] * Hemoglobin A1c (11/13/2018 8:00 AM EST) [facility] Hemoglobin A1C 7.4 % [facility] Comment: New [...] average glucose, using the formula of the [id number] Average Glucose study (ADAG), Diabetes Care, Vol.31,#8, May. 2007 11/13/2018 8:00 AM EST us Kev Esteves MD LAB BLOOD ORDERABLES Final Result [place] from Last 3 Months or Most Recently Relevant to Health Maintenance Insurance [address] [place] [address] [place] [address]
--- OUTSIDE RECORDS SUMMARY | 2024-11-14 15:43 | XMS_ITS | Encounter Summary ---
Author Organization [facility] Address [address] [place] [address] Care Team Providers Care Dough Maker Name Role Phone Unavailable Primary Care Provider [...]
== END 2024-11-14 14:56 | disposition home or self-care (01) ==
PROVIDERS: PCP Internal Medicine; Visit Provider Internal Medicine
DX: I25.10 Atherosclerotic heart disease of native coronary artery without angina pectoris (principal); I25.5 Ischemic cardiomyopathy; I10 Essential (primary) hypertension; E11.9 Type 2 diabetes mellitus without complications; E78.5 Hyperlipidemia, unspecified
CPT/HCPCS: 99214

== ENCOUNTER → 2024-12-06 13:19 | Outpatient (BNVA) | payer OTHER, SELFPAY | PROVIDERS: PCP Internal Medicine; Visit Provider Internal Medicine Hypertension Specialist | DX: I12.0 Hypertensive chronic kidney disease with stage 5 chronic kidney disease or end stage renal disease (principal); E11.22 Type 2 diabetes mellitus with diabetic chronic kidney disease; N18.5 Chronic kidney disease, stage 5; D63.1 Anemia in chronic kidney disease; E87.20 Acidosis, unspecified; E87.5 Hyperkalemia; E21.3 Hyperparathyroidism, unspecified | CPT/HCPCS: 96372; Q5106 ==

== ENCOUNTER 2024-12-06 13:50 | Outpatient (AMB) | payer OTHER, SELFPAY ==
[2024-12-06 13:31] VITALS: BP 146/50; PULSE 61; O2SAT 98; BMI 21.9
--- NOTE | 2024-12-06 13:31 | HO.NEPHOV ---
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: No Accompanied by: Self / Same As Patient Allergies No Known Allergies [No Known Allergies*] Allergy (Verified 12/06/24 13:34) Medication List - Last Reconciled 12/06/24 by Nikolai Barros MD aspirin 81 mg PO DAILY atorvastatin 80 mg PO DAILY blood sugar diagnostic (FreeStyle Test strips) As directed twice a day blood-glucose meter As directed calcitriol 0.5 mcg PO DAILY calcium carbonate 500 mg PO DAILY flash glucose scanning reader (FreeStyle [place] 2 [place]) As directed flash glucose sensor (FreeStyle Wale 2 Sensor kit) As directed hydralazine 25 mg PO 3XD insulin glargine (Lantus Solostar U-100 Insulin) 8 units (0.08 mL) subcut QPM 90 days insulin lispro (Humalog KwikPen (U-100) Insulin) 4 units subcut TID isosorbide dinitrate 10 mg PO 3XD lancets As directed levothyroxine (Synthroid) 25 mcg PO DAILY linagliptin (Tradjenta) 5 mg PO DAILY metoprolol succinate ER 75 mg PO DAILY pen needle, diabetic As directed 1x daily terazosin 5 mg PO BEDTIME 90 days HPI Comments Details: Elderly man with a history of longstanding diabetes mellitus hypertension with CKD. 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 Serum creatinine is between 4 and 5.0 mg/dL. Recently was hospitalized at [facility] for acute pulmonary edema and acute MO. He was conservatively managed. History of for further follow-up regarding CKD. He has been receiving Epogen injections for the anemia. 04/05/2024. Overall he is feeling better. No specific complaints today. Lokelma has been denied by his insurance. 05/03/2024 No shortness of breath. No nausea or vomiting. He took Kayexalate and had upset stomach therefore he stopped taking it. 10/01/24 K was high since he missed kayexalate CAlled and asked to take daily Not taking calcitriol 11/08/2024. Recently hospitalized at [facility]. Underwent coronary angiogram. Apparently no intervention was done. He had COVID 19 infection Breathing has improved No nausea or vomiting. No chest pain no urinary symptoms. [facility] Medical History Heart attack Atherosclerotic cardiovascular disease CKD (chronic kidney disease) stage 5, GFR less than 15 ml/min Other and unspecified hyperlipidemia Essential hypertension Edema of both feet Prostate cancer Gout Hyperlipidemia Diabetes Surgical History History of hernia surgery Family History Mother No problems noted. Father No problems noted. Social History Housing: House Alcohol intake: never Patient Tobacco Use Status: Never used Tobacco e-Cigarette/Vaping Use: Never Used Second Hand Smoke Exposure: No service: No Current occupational status: retired Current occupation: rt handed Cognitive needs: No Hearing needs: No Vision needs: Yes (Glasses) Physical Exam Vital Signs: Last Vital Signs Pulse 61 12/06/24 13:31 BP 146/50 H 12/06/24 13:31 Pulse Ox 98 12/06/24 13:31 Oxygen Delivery Method Room Air 12/06/24 13:31 BMI result Body Mass Index 21.9 Comfortable Neck supple no JVD. Lungs entry equal no rales. Heart S1-S2 heard no gallop or rub. Abdomen soft nontender. Neuro alert awake oriented. No asterixis. Extremities no edema. 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 unit subcut left arm 1 mL [id number] 03/09/26 9708-1080-83 [email or web address] [place] [employer] Results Reviewed Nephrology Results: Hgb 8.4 g/dl (14.0-18.0) L 10/18/24 WBC 10.6 X10*3/uL (4.8-10.8) 10/18/24 Plt Count 275 X10*3/uL (160-400) 10/18/24 Sodium 138 mmol/L (135-145) 10/18/24 Potassium 5.9 mmol/L (3.3-5.1) H 10/18/24 Chloride 106 mmol/L (96-108) 10/18/24 Carbon Dioxide 7 mmol/L (22-29) L* 10/18/24 BUN 84 mg/dL (9-16) H 10/18/24 Creatinine 5.89 mg/dL (0.5-1.4) H* 10/18/24 Calcium 7.1 mg/dL (8.4-10.2) L 10/18/24 Phosphorus 5.8 mg/dL (2.7-4.5) H 11/12/24 PTH Intact 83.6 pg/mL (8.7-77.1) H 11/12/24 Assessment & Plan Assessment & Plan (1) CKD (chronic kidney disease) stage 5, GFR less than 15 ml/min: Code(s): N18.5 - Chronic kidney disease, stage 5 Category: Medical Plan: CKD 5. No signs or symptoms of uremia. He is approaching end stage renal disease. No indication for dialysis YET Seen by dialysis educator for [facility] Seen by Dr. Chester for insertion of Tenckhoff catheter (2) Anemia due to chronic kidney disease: Code(s): N18.9 - Chronic kidney disease, unspecified; D63.1 - Anemia in chronic kidney disease Category: Medical Qualifiers: Chronic kidney disease stage: stage 5, not on chronic dialysis Qualified Code(s): N18.5 - Chronic kidney disease, stage 5; D63.1 - Anemia in chronic kidney disease Plan: Anemia due to CKD. Hemoglobin is low. Recheck iron TIBC and hemoglobin. administeed REtacrit [id number] U sq and tolerated well (3) Essential hypertension: Code(s): I10 - Essential (primary) hypertension Category: Medical Plan: Hypertension blood pressure is acceptable Stay on low-sodium diet (4) Metabolic acidosis: Code(s): E87.20 - Acidosis, unspecified Category: Medical Plan: Sodium bicarbonate on hold. Recheck serum electrolytes and start bicarb if needed (5) Type 2 diabetes mellitus with unspecified complications: Code(s): E11.8 - Type 2 diabetes mellitus with unspecified complications Category: Medical Plan: Goal is to maintain A1c less than 7%. Unable to add SGLT2 inhibitors like Jardiance due to hyperkalemia. (6) Hyperkalemia: Code(s): E87.5 - Hyperkalemia Category: Medical Plan: Primarily due to the use of spironolactone in setting of advanced kidney disease. Yuliya was denied I prescribed Kayexalate. Encouraged him to stay on low-potassium diet. The potassium stays persistently elevated we might have to discontinue spironolactone. Kayexalate twice a week (7) Hyperparathyroidism: Code(s): E21.3 - Hyperparathyroidism, unspecified Category: Medical Plan: Ca is high Decreased Calcitriol to Once a week Off calcium tablets. Check calcium Plan . Orders: Orders Complete Blood Count no Diff Today D63.1 - Anemia in chronic kidney disease, E87.5 - Hyperkalemia, N18.5 - Chronic kidney disease, stage 5 Comprehensive Met. Panel Today D63.1 - Anemia in chronic kidney disease, E87.5 - Hyperkalemia, N18.5 - Chronic kidney disease, stage 5 Parathyroid Hormone Intact Today D63.1 - Anemia in chronic kidney disease, E87.5 - Hyperkalemia, N18.5 - Chronic kidney disease, stage 5 Phosphorus Today D63.1 - Anemia in chronic kidney disease, E87.5 - Hyperkalemia, N18.5 - Chronic kidney disease, stage 5 AMB Epoetin Injection Practice Supplied Today D63.1 - Anemia in chronic kidney disease, N18.5 - Chronic kidney disease, stage 5 Medications: New epoetin kelley-epbx 20,000 units subcut ONCE 1 mL 0RF anemia D63.1 - Anemia in chronic kidney disease, N18.5 - Chronic kidney disease, stage 5 Coding Level of Care Code Est Pt Level 4 (53846) Diagnoses CKD (chronic kidney disease) stage 5, GFR less than 15 ml/min N18.5 Anemia due to stage 5 chronic kidney disease, not on chronic dialysis N18.5; D63.1 Chronic kidney disease stage: stage 5, not on chronic dialysis Essential hypertension I10 Metabolic acidosis E87.20 Type 2 diabetes mellitus with unspecified complications E11.8 Hyperkalemia E87.5 Hyperparathyroidism E21.3
--- OUTSIDE RECORDS SUMMARY | 2024-12-06 15:54 | XMS_ITS | Encounter Summary ---
Author Organization [facility] Address [address] [place] [address] Care Team Providers Care Paperhanger Assistant Name Role Phone Diaz Akers MD Primary Care Provider Soledad vailable Encounter Details Date Type Department Care Team (Late st Contact Info) Description 10/19/2024 Scanned Document CARDIOLOGY IP [address] [place] [phone] Sejal Blair [address] [address] Social History Tobacco Use Types Packs/Day Years Used Date Smoking Tobacco: Never Assessed [facility] Utilities Answer Date Recorded In the past 12 months has [employer] electric, gas, oil, or water company threatened [...] documented as of this encounter Care Teams Paperhanger Assistant Relationship Specialty Start Date End Date Diaz Akers MD PCP - General Internal Medicine 10/20/24 documented as of this encounter
--- OUTSIDE RECORDS SUMMARY | 2024-12-06 15:54 | XMS_ITS | Clinical Summary ---
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 Active calcitriol (ROCALTROL) 0.5 MCG capsuleIndications: Diabetic ketoacidosis without coma associated with type 2 diabetes mellitus (HCC) Take 1 capsule (0.5 mcg total) by mouth daily. 30 capsule 11/02/2024 Active atorvastatin (LIPITOR) 80 MG tabletIndications:N STEMI (non-ST elevated myocardial infarction) (HCC) Take 1 tablet (80 mg total) by mouth daily. 30 tablet 11/02/2024 Active calcium carbonate (TUMS) 500 MG chewable tabletIndications:N STEMI (non-ST elevated myocardial infarction) (HCC) Chew 1 tablet (500 mg total) daily. 30 tablet 11/02/2024 Active hydrALAZINE (APRESOLINE) 25 MG tabletIndications:N STEMI (non-ST elevated myocardial infarction) (HCC) Take 1 tablet (25 mg total) by mouth every 8 (eight) hours around the clock. 90 tablet 11/01/2024 Active isosorbide dinitrate (ISORDIL) 10 MG tabletIndications:N STEMI (non-ST elevated myocardial infarction) (HCC) Take 1 tablet (10 mg total) by mouth 3 (three) times a day in the morning, mid-day and early evening. 90 tablet 11/01/2024 Active linagliptin (TRADJENTA) 5 MG TabIndications:Diab etic ketoacidosis without coma associated with type 2 diabetes mellitus (HCC) Take 1 tablet (5 mg total) by mouth daily. 30 tablet 11/02/2024 Active metoPROLOL SUCCINATE (TOPROL-XL) 25 MG 24 hr tabletIndications:N STEMI (non-ST elevated myocardial infarction) (HCC) Take 3 tablets (75 mg total) by mouth daily. 90 tablet 11/02/2024 Active insulin glargine (LANtus/SEMGLEE SOLOSTAR) 100 units/mL prefilled pen injectionIndication s:Diabetic ketoacidosis without coma associated with type 2 diabetes mellitus (HCC) Inject 8 Units under the skin daily. 15 mL 11/01/2024 Active BD Pen Needle Debby U/F 32G X 4 MM MiscIndications:Katherine betic ketoacidosis without coma associated with type 2 diabetes mellitus (HCC) Use as directed 100 pen needle 11/01/2024 Active insulin lispro (HumaLOG KWIKPEN) 100 UNIT/ML prefilled pen injectionIndication s:Diabetic ketoacidosis without coma associated with type 2 diabetes mellitus (HCC) Inject 0-4 Units under the skin 3 (three) times a day before meals. Hold if not eating, Take 4 units with a full meal and 2 units if eating 50% of meal 15 mL 11/01/2024 Active BD Pen Needle Debby U/F 32G X 4 MM MiscIndications:Katherine betic ketoacidosis without coma associated with type 2 diabetes mellitus (HCC) Use as directed 100 pen needle 11/01/2024 Active Alcohol Swabs 70 % PadsIndications:Katherine betic ketoacidosis without coma associated with type 2 diabetes mellitus (HCC) Use as directed. 100 Pad(s) 11/01/2024 12/02/2024 Active Problems Problem Noted Date Diagnosed Date NSTEMI (non-ST elevated myocardial infarction) 0 10/22/2024 COVID 10/22/2024 Heart failure with reduced ejection fraction Pulmonary edema with left heart failure 10/22/19 25 DKA (diabetic ketoacidosis) 10/18/2024 Encounters Date Type Department Care Team Description 10/31/2024 5:21 PM EST - 10/31/2024 6:26 PM EST Surgery [facility] Heart & Vascular [facility] - Cardiac Catheterization Laboratory [address] [place] [address] Calixto Ureña MD CORONARY ANGIO W/LV 10/19/2024 Scanned Document CARDIOLOGY IP [address] [place] [id number] Sejal Blair 10/18/2024 5:10 AM EST - 11/01/2024 4:42 PM EST Hospital Encounter [facility] [address] [place] [address] WinterFuad MD Perkins, Michael E, MD Haw, MD Ruperto Barrow, MD Jarek Sanchez, MD Alexandr Rojas, MD Chilo Ludwig, MD Vel Pat, MD Bruna Leija, MD Connor Castellanos, MD Mitchell Gates Moaz, MD Iftikhar, Osmar [...] Tobacco: Never Tobacco Cessation:Counseling Given: Not Answered [facility] Utilities Answer Date Recorded In the past 12 months has [employer], gas, oil, or water [employer] threatened to shut off services in your [...] any time in the past 12 m [facility], were you homeless or [...] Date/Time Associated Diagnosis Comments POCT GLUCOSE, FINGERSTICK (CHARGE) Routine 11/01/2024 12:04 PM EST POCT GLUCOSE, FINGERSTICK (CHARGE) Routine 11/01/2024 8:21 AM EST PHOSPHORUS Routine 11/01/2024 6:20 AM EST MAGNESIUM Routine 11/01/2024 6:20 AM EST COMPLETE BLOOD COUNT, WITHOUT DIFFERENTIAL Routine 11/01/2024 6:20 AM EST BASIC METABOLIC PANEL Routine 11/01/2024 6:20 AM EST POCT GLUCOSE, FINGERSTICK (CHARGE) Routine 11/01/2024 1:58 AM EST POCT GLUCOSE, FINGERSTICK (CHARGE) Routine 10/31/2024 9:20 PM EST CARDIAC CATHETERIZATION Routine 10/31/19 6:34 PM EST POCT GLUCOSE, FINGERSTICK (CHARGE) Routine 10/31/2024 4:45 PM EST HEPARIN ASSAY (ANTI-XA) Routine 10/31/19 3:28 PM EST POCT GLUCOSE, FINGERSTICK (CHARGE) Routine 10/31/2024 12:04 PM EST POCT GLUCOSE, FINGERSTICK (CHARGE) Routine 10/31/2024 8:13 AM EST HIGH SENSITIVITY TROPONIN T Routine 10/31/2024 7:16 AM EST TSH, HIGHLY SENSITIVE Routine 10/31/2024 7:16 AM EST HEPARIN ASSAY (ANTI-XA) Routine 10/31/19 7:16 AM EST PHOSPHORUS Routine 10/31/2024 7:16 AM EST MAGNESIUM Routine 10/31/2024 7:16 AM EST COMPLETE BLOOD COUNT, WITHOUT DIFFERENTIAL Routine 10/31/2024 7:16 AM EST BASIC METABOLIC PANEL Routine 10/31/2024 7:16 AM EST POCT GLUCOSE, FINGERSTICK (CHARGE) Routine 10/31/2024 2:18 AM EST POCT GLUCOSE, FINGERSTICK (CHARGE) Routine 10/30/2024 9:03 PM EST POCT GLUCOSE, FINGERSTICK (CHARGE) Routine 10/30/2024 4:24 PM EST POCT GLUCOSE, FINGERSTICK (CHARGE) Routine 10/30/2024 2:00 PM EST POCT GLUCOSE, FINGERSTICK (CHARGE) Routine 10/30/2024 12:35 PM EST POCT GLUCOSE, FINGERSTICK (CHARGE) Routine 10/30/2024 8:43 AM EST HEPARIN ASSAY (ANTI-XA) Routine 10/30/19 7:09 AM EST PHOSPHORUS Routine 10/30/2024 7:09 AM EST MAGNESIUM Routine 10/30/2024 7:09 AM EST COMPLETE BLOOD COUNT, WITHOUT DIFFERENTIAL Routine 10/30/2024 7:09 AM EST BASIC METABOLIC PANEL Routine 10/30/2024 7:09 AM EST POCT GLUCOSE, FINGERSTICK (CHARGE) Routine 10/30/2024 6:47 AM EST POCT GLUCOSE, FINGERSTICK (CHARGE) Routine 10/30/2024 2:16 AM EST POCT GLUCOSE, FINGERSTICK (CHARGE) Routine 10/29/2024 9:16 PM EST POCT GLUCOSE, FINGERSTICK (CHARGE) Routine 10/29/2024 4:32 PM EST POCT GLUCOSE, FINGERSTICK (CHARGE) Routine 10/29/2024 12:54 PM EST POCT GLUCOSE, FINGERSTICK (CHARGE) Routine 10/29/2024 7:51 AM EST PROBNP, N-TERMINAL Routine 10/29/2024 7: 20 AM EST HEPARIN ASSAY (ANTI-XA) Routine 10/29/19 7:20 AM EST PHOSPHORUS Routine 10/29/2024 7:20 AM EST MAGNESIUM Routine 10/29/2024 7:20 AM EST COMPLETE BLOOD COUNT, WITHOUT DIFFERENTIAL Routine 10/29/2024 7:20 AM EST BASIC METABOLIC PANEL Routine 10/29/2024 7:20 AM EST POCT GLUCOSE, FINGERSTICK (CHARGE) Routine 10/29/2024 2:07 AM EST POCT GLUCOSE, FINGERSTICK (CHARGE) Routine 10/28/2024 9:30 PM EST POCT GLUCOSE, FINGERSTICK (CHARGE) Routine 10/28/2024 4:59 PM EST PHOSPHORUS Routine 10/28/2024 3:38 PM EST MAGNESIUM Routine 10/28/2024 3:38 PM EST BASIC METABOLIC PANEL Routine 10/28/2024 3:38 PM EST POCT GLUCOSE, FINGERSTICK (CHARGE) Routine 10/28/2024 12:32 PM EST POCT GLUCOSE, FINGERSTICK (CHARGE) Routine 10/28/2024 8:28 AM EST HEPARIN ASSAY (ANTI-XA) Routine 10/28/19 7:00 AM EST PHOSPHORUS Routine 10/28/2024 7:00 AM EST MAGNESIUM Routine 10/28/2024 7:00 AM EST COMPLETE BLOOD COUNT, WITHOUT DIFFERENTIAL Routine 10/28/2024 7:00 AM EST BASIC METABOLIC PANEL Routine 10/28/2024 7:00 AM EST POCT GLUCOSE, FINGERSTICK (CHARGE) Routine 10/28/2024 4:20 AM EST POCT GLUCOSE, FINGERSTICK (CHARGE) Routine 10/28/2024 12:29 AM EST POCT GLUCOSE, FINGERSTICK (CHARGE) Routine 10/27/2024 8:06 PM EST POCT GLUCOSE, FINGERSTICK (CHARGE) Routine 10/27/2024 4:20 PM EST BASIC METABOLIC PANEL Routine 10/27/2024 3:26 PM EST POCT GLUCOSE, FINGERSTICK (CHARGE) Routine 10/27/2024 1:13 PM EST POCT GLUCOSE, FINGERSTICK (CHARGE) Routine 10/27/2024 8:58 AM EST ECG 12-LEAD STAT 10/27/2024 7:41 AM EST HEPARIN ASSAY (ANTI-XA) Routine 10/27/19 7:29 AM EST PHOSPHORUS Routine 10/27/2024 7:29 AM EST MAGNESIUM Routine 10/27/2024 7:29 AM EST BASIC METABOLIC PANEL Routine 10/27/2024 7:29 AM EST COMPLETE BLOOD COUNT, WITHOUT DIFFERENTIAL Routine 10/27/2024 7:29 AM EST POCT GLUCOSE, FINGERSTICK (CHARGE) Routine 10/27/2024 4:02 AM EST POCT GLUCOSE, FINGERSTICK (CHARGE) Routine 10/27/2024 1:20 AM EST POCT GLUCOSE, FINGERSTICK (CHARGE) Routine 10/27/2024 12:29 AM EST POCT GLUCOSE, FINGERSTICK (CHARGE) Routine 10/26/2024 8:11 PM EST POCT GLUCOSE, FINGERSTICK (CHARGE) Routine 10/26/2024 6:09 PM EST POCT GLUCOSE, FINGERSTICK (CHARGE) Routine 10/26/2024 11:58 AM EST HIGH SENSITIVITY TROPONIN T CARD 10/26/2024 10:49 AM EST POCT GLUCOSE, FINGERSTICK (CHARGE) Routine 10/26/2024 8:48 AM EST HEPARIN ASSAY (ANTI-XA) Routine 10/26/19 6:18 AM EST PHOSPHORUS Routine 10/26/2024 6:18 AM EST MAGNESIUM Routine 10/26/2024 6:18 AM EST BASIC METABOLIC PANEL Routine 10/26/2024 6:18 AM EST COMPLETE BLOOD COUNT, WITHOUT DIFFERENTIAL Routine 10/26/2024 6:18 AM EST POCT GLUCOSE, FINGERSTICK (CHARGE) Routine 10/26/2024 3:58 AM EST POCT GLUCOSE, FINGERSTICK (CHARGE) Routine 10/25/2024 11:49 PM EST HEPARIN ASSAY (ANTI-XA) Routine 10/25/19 11:35 PM EST POCT GLUCOSE, FINGERSTICK (CHARGE) Routine 10/25/2024 8:20 PM EST POCT GLUCOSE, FINGERSTICK (CHARGE) Routine 10/25/2024 5:39 PM EST HEPARIN ASSAY (ANTI-XA) Routine 10/25/19 5:03 PM EST HIGH SENSITIVITY TROPONIN T CARD 10/25/2024 5:03 PM EST HIGH SENSITIVITY TROPONIN T CARD 10/25/2024 3:38 PM EST HIGH SENSITIVITY TROPONIN T Routine 10/25/2024 12:47 PM EST HEPARIN ASSAY (ANTI-XA) Routine 10/25/19 12:47 PM EST POCT GLUCOSE, FINGERSTICK (CHARGE) Routine 10/25/2024 12:33 PM EST XR CHEST 1 VIEW-PORTABLE STAT 10/25/2024 11:48 AM EST ECG 12-LEAD Routine 10/25/2024 10:44 AM EST HIGH SENSITIVITY TROPONIN T Routine 10/25/2024 10:25 AM EST POCT GLUCOSE, FINGERSTICK (CHARGE) Routine 10/25/2024 9:20 AM EST CREATINE KINASE (CK) Routine 10/25/2024 8:27 AM EST HIGH SENSITIVITY TROPONIN T Routine 10/25/2024 8:27 AM EST PHOSPHORUS Routine 10/25/2024 8:27 AM EST MAGNESIUM Routine 10/25/2024 8:27 AM EST BASIC METABOLIC PANEL Routine 10/25/2024 8:27 AM EST COMPLETE BLOOD COUNT, WITHOUT DIFFERENTIAL Routine 10/25/2024 8:27 AM EST HEPARIN ASSAY (ANTI-XA) Routine 10/25/19 5:21 AM EST POCT GLUCOSE, FINGERSTICK (CHARGE) Routine 10/25/2024 5:15 AM EST POCT GLUCOSE, FINGERSTICK (CHARGE) Routine 10/25/2024 1:03 AM EST HEPARIN ASSAY (ANTI-XA) Routine 10/24/19 9:57 PM EST POCT GLUCOSE, FINGERSTICK (CHARGE) Routine 10/24/2024 8:23 PM EST HEPARIN ASSAY (ANTI-XA) Routine 10/24/19 4:14 PM EST POCT GLUCOSE, FINGERSTICK (CHARGE) Routine 10/24/2024 4:07 PM EST POCT GLUCOSE, FINGERSTICK (CHARGE) Routine 10/24/2024 11:13 AM EST XR CHEST 1 VIEW-PORTABLE Routine 10/24/2024 10:12 AM EST POCT GLUCOSE, FINGERSTICK (CHARGE) Routine 10/24/2024 8:39 AM EST B-HYDROXYBUTYRATE Routine [...] 10/24/2024 3:01 AM EST POCT GLUCOSE, FINGERSTICK (CHARGE) Routine 10/24/2024 1:53 AM EST HEPARIN ASSAY (ANTI-XA) Routine 10/23/19 10:13 PM EST POCT GLUCOSE, FINGERSTICK (CHARGE) Routine 10/23/2024 9:02 PM EST POCT GLUCOSE, FINGERSTICK (CHARGE) Routine 10/23/2024 6:22 PM EST MAGNESIUM Routine 10/23/2024 6:02 PM EST PHOSPHORUS Routine 10/23/2024 6:02 PM EST BASIC METABOLIC PANEL Routine 10/23/2024 6:02 PM EST ECG 12-LEAD STAT 10/23/2024 5:43 PM EST HEPARIN ASSAY (ANTI-XA) Routine 10/23/19 3:53 PM EST POCT GLUCOSE, FINGERSTICK (CHARGE) Routine 10/23/2024 12:59 PM EST ALBUMIN Routine 10/23/2024 10:31 AM EST CALCIUM, IONIZED Routine 10/23/2024 10:3 1 AM EST CALCIUM, TOTAL Routine 10/23/2024 10:31 AM EST PTH, INTACT Routine 10/23/2024 10:31 AM EST POCT GLUCOSE, FINGERSTICK (CHARGE) Routine 10/23/2024 8:36 AM EST LIPID PANEL Routine 10/23/2024 6:05 AM EST PHOSPHORUS Routine 10/23/2024 6:05 AM EST MAGNESIUM Routine 10/23/2024 6:05 AM EST BASIC METABOLIC PANEL Routine 10/23/2024 6:05 AM EST COMPLETE BLOOD COUNT, WITHOUT DIFFERENTIAL Routine 10/23/2024 6:05 AM EST HEPARIN ASSAY (ANTI-XA) Routine 10/23/19 6:05 AM EST POCT GLUCOSE, FINGERSTICK (CHARGE) Routine 10/23/2024 1:59 AM EST POCT GLUCOSE, FINGERSTICK (CHARGE) Routine 10/22/2024 8:40 PM EST POCT GLUCOSE, FINGERSTICK (CHARGE) Routine 10/22/2024 6:12 PM EST POCT GLUCOSE, FINGERSTICK (CHARGE) Routine 10/22/2024 1:10 PM EST POCT GLUCOSE, FINGERSTICK (CHARGE) Routine 10/22/2024 9:10 AM EST COMPLETE BLOOD COUNT, WITHOUT DIFFERENTIAL Routine 10/22/2024 8:12 AM EST MAGNESIUM Routine 10/22/2024 8:12 AM EST BASIC METABOLIC PANEL Routine 10/22/2024 8:12 AM EST HEPARIN ASSAY (ANTI-XA) Routine 10/22/19 8:12 AM EST POCT GLUCOSE, FINGERSTICK (CHARGE) Routine 10/22/2024 1:23 AM EST ECG 12-LEAD Routine 10/21/2024 9:45 PM EST POCT GLUCOSE, FINGERSTICK (CHARGE) Routine 10/21/2024 9:04 PM EST POCT GLUCOSE, FINGERSTICK (CHARGE) Routine 10/21/2024 6:23 PM EST POCT GLUCOSE, FINGERSTICK (CHARGE) Routine 10/21/2024 1:38 PM EST POCT GLUCOSE, FINGERSTICK (CHARGE) Routine 10/21/2024 12:24 PM EST HEPARIN ASSAY (ANTI-XA) Routine 10/21/19 9:11 AM EST POCT GLUCOSE, FINGERSTICK (CHARGE) Routine 10/21/2024 8:35 AM EST POCT GLUCOSE, FINGERSTICK (CHARGE) Routine 10/21/2024 8:03 AM EST BASIC METABOLIC PANEL Routine 10/21/2024 3:09 AM EST COMPLETE BLOOD COUNT, WITHOUT DIFFERENTIAL Routine 10/21/2024 3:09 AM EST HEPARIN ASSAY (ANTI-XA) Routine 10/21/19 3:09 AM EST POCT GLUCOSE, FINGERSTICK (CHARGE) Routine 10/21/2024 2:23 AM EST POCT GLUCOSE, FINGERSTICK (CHARGE) Routine 10/20/2024 8:47 PM EST HEPARIN ASSAY (ANTI-XA) Routine 10/20/19 8:34 PM EST POCT GLUCOSE, FINGERSTICK (CHARGE) Routine 10/20/2024 5:51 PM EST POCT GLUCOSE, FINGERSTICK (CHARGE) Routine 10/20/2024 3:47 PM EST POCT GLUCOSE, FINGERSTICK (CHARGE) Routine 10/20/2024 11:43 AM EST BLOOD GAS, VENOUS Routine 10/20/2024 10: 39 AM EST POCT GLUCOSE, FINGERSTICK (CHARGE) Routine 10/20/2024 10:37 AM EST LACTIC ACID, PLASMA Routine 10/20/2024 1 0:00 AM EST POCT GLUCOSE, FINGERSTICK (CHARGE) Routine 10/20/2024 7:48 AM EST POCT GLUCOSE, FINGERSTICK (CHARGE) Routine 10/20/2024 5:43 AM EST POCT GLUCOSE, FINGERSTICK (CHARGE) Routine 10/20/2024 2:15 AM EST PHOSPHORUS Routine 10/19/2024 11:59 PM EST MAGNESIUM Routine 10/19/2024 11:59 PM EST COMPLETE BLOOD COUNT, WITH DIFFERENTIAL STAT 10/19/2024 11:59 PM EST BASIC METABOLIC PANEL Routine 10/19/2024 11:59 PM EST HEPARIN ASSAY (ANTI-XA) Routine 10/19/19 11:59 PM EST POCT GLUCOSE, FINGERSTICK (CHARGE) Routine 10/19/2024 8:00 PM EST POCT GLUCOSE, FINGERSTICK (CHARGE) Routine 10/19/2024 6:53 PM EST POCT GLUCOSE, FINGERSTICK (CHARGE) Routine 10/19/2024 5:42 PM EST POCT GLUCOSE, FINGERSTICK (CHARGE) Routine 10/19/2024 4:33 PM EST BASIC METABOLIC PANEL Routine 10/19/2024 3:47 PM EST HEMOGLOBIN AND HEMATOCRIT Routine 10/19/2024 2:25 PM EST HEPARIN ASSAY (ANTI-XA) Routine 10/19/19 2:25 PM EST BLOOD GAS, VENOUS Routine 10/19/2024 2:2 5 PM EST POCT GLUCOSE, FINGERSTICK (CHARGE) Routine 10/19/2024 1:52 PM EST POCT GLUCOSE, FINGERSTICK (CHARGE) Routine 10/19/2024 11:40 AM EST B-HYDROXYBUTYRATE Routine 10/19/2024 11: 34 AM EST HIGH SENSITIVITY TROPONIN T Routine 10/19/2024 11:34 AM EST BASIC METABOLIC PANEL Routine 10/19/2024 11:34 AM EST BLOOD GAS, VENOUS Routine 10/19/2024 10: 36 AM EST POCT GLUCOSE, FINGERSTICK (CHARGE) Routine 10/19/2024 10:34 AM EST POCT GLUCOSE, FINGERSTICK (CHARGE) Routine 10/19/2024 9:08 AM EST POCT GLUCOSE, FINGERSTICK (CHARGE) Routine 10/19/2024 7:58 AM EST HEPARIN ASSAY (ANTI-XA) Routine 10/19/19 7:44 AM EST BASIC METABOLIC PANEL Routine 10/19/2024 7:44 AM EST POCT GLUCOSE, FINGERSTICK (CHARGE) Routine 10/19/2024 6:38 AM EST POCT GLUCOSE, FINGERSTICK (CHARGE) Routine 10/19/2024 5:25 AM EST HIGH SENSITIVITY TROPONIN T CARD 10/19/2024 5:15 AM EST BASIC METABOLIC PANEL Routine 10/19/2024 4:15 AM EST POCT GLUCOSE, FINGERSTICK (CHARGE) Routine 10/19/2024 4:14 AM EST POCT GLUCOSE, FINGERSTICK (CHARGE) Routine 10/19/2024 2:45 AM EST HEPARIN ASSAY (ANTI-XA) Routine 10/19/19 1:54 AM EST POCT GLUCOSE, FINGERSTICK (CHARGE) Routine 10/19/2024 1:35 AM EST HEMOGLOBIN A1C WITH ESTIMATED AVERAGE GLUCOSE Routine 10/19/2024 1:20 AM EST PHOSPHORUS Routine 10/19/2024 1:20 AM EST MAGNESIUM Routine 10/19/2024 1:20 AM EST HIGH SENSITIVITY TROPONIN T CARD 10/19/2024 1:20 AM EST COMPLETE BLOOD COUNT, WITHOUT DIFFERENTIAL Routine 10/19/2024 1:20 AM EST POCT GLUCOSE, FINGERSTICK (CHARGE) Routine 10/19/2024 12:16 AM EST ECG 12-LEAD Routine 10/19/2024 12:02 AM EST POCT GLUCOSE, FINGERSTICK (CHARGE) Routine 10/18/2024 11:22 PM EST BASIC METABOLIC PANEL Routine 10/18/2024 11:11 PM EST BLOOD GAS, VENOUS STAT 10/18/2024 11: 11 PM EST BASIC METABOLIC PANEL Routine 10/18/2024 10:15 PM EST LACTIC ACID, PLASMA Routine 10/18/2024 1 0:13 PM EST POCT GLUCOSE, FINGERSTICK (CHARGE) Routine 10/18/2024 10:06 PM EST XR CHEST 1 VIEW-PORTABLE Routine 10/18/2024 9:36 PM EST POCT GLUCOSE, FINGERSTICK (CHARGE) Routine 10/18/2024 9:12 PM EST POCT GLUCOSE, FINGERSTICK (CHARGE) Routine 10/18/2024 8:16 PM EST BLOOD GAS, VENOUS STAT 10/18/2024 7:1 4 PM EST BASIC METABOLIC PANEL STAT 10/18/2024 7:14 PM EST POCT GLUCOSE, FINGERSTICK (CHARGE) Routine 10/18/2024 7:13 PM EST US GUIDED BEDSIDE THORACENTESIS-BILATERAL Routine 10/18/2024 6:10 PM EST POCT GLUCOSE, FINGERSTICK (CHARGE) Routine 10/18/2024 6:07 PM EST MYCOBACTERIA CULTURE [...] 10/18/2024 5:39 PM EST POCT GLUCOSE, FINGERSTICK (CHARGE) Routine 10/18/2024 5:04 PM EST B-HYDROXYBUTYRATE Routine 10/18/2024 5:0 4 PM EST BLOOD GAS, VENOUS STAT 10/18/2024 5:0 4 PM EST HEPARIN ASSAY (ANTI-XA) STAT 10/18/19 5:04 PM EST BASIC METABOLIC PANEL STAT 10/18/2024 5:04 PM EST XR CHEST 1 VIEW-PORTABLE STAT 10/18/2024 4:14 PM EST POCT GLUCOSE, FINGERSTICK (CHARGE) Routine 10/18/2024 3:51 PM EST POCT GLUCOSE, FINGERSTICK (CHARGE) Routine 10/18/2024 2:44 PM EST POCT GLUCOSE, FINGERSTICK (CHARGE) Routine 10/18/2024 1:44 PM EST POCT GLUCOSE, FINGERSTICK (CHARGE) Routine 10/18/2024 1:24 PM EST POCT GLUCOSE, FINGERSTICK (CHARGE) Routine 10/18/2024 12:19 PM EST ECHOCARDIOGRAM (TTE) COMPREHENSIVE (CONTRAST PRN) Routine 10/18/2024 12:14 PM EST BASIC METABOLIC PANEL STAT 10/18/2024 11:25 AM EST POCT GLUCOSE, FINGERSTICK (CHARGE) Routine 10/18/2024 11:19 AM EST POCT GLUCOSE, FINGERSTICK (CHARGE) Routine 10/18/2024 10:16 AM EST HEPARIN ASSAY (ANTI-XA) STAT 10/18/19 9:57 AM EST BASIC METABOLIC PANEL STAT 10/18/2024 9:57 AM EST POCT GLUCOSE, FINGERSTICK (CHARGE) Routine 10/18/2024 9:39 AM EST POCT GLUCOSE, FINGERSTICK (CHARGE) Routine 10/18/2024 8:34 AM EST POCT GLUCOSE, FINGERSTICK (CHARGE) Routine 10/18/2024 7:31 AM EST BASIC METABOLIC PANEL Routine 10/18/2024 7:25 AM EST HIGH SENSITIVITY TROPONIN T CARD 10/18/2024 7:25 AM EST POCT GLUCOSE, FINGERSTICK (CHARGE) Routine 10/18/2024 6:28 AM EST XR CHEST 1 VIEW-PORTABLE STAT 10/18/2024 5:37 AM EST ECG 12-LEAD STAT 10/18/2024 5:28 AM EST POCT GLUCOSE, FINGERSTICK (CHARGE) Routine 10/18/2024 5:24 AM EST HEPARIN ASSAY [...] of109 resultswithin the time period is included. [facility] POC Glucose 189(H) 65 - 99 mg/dL 11/01/2024 12:05 PM EST Blood specimen / Unknown 11/01/2024 12:04 PM EST 11/01/2024 12:05 PM EST Fuad Winter MD POINT OF CARE TEST ORDERABLES HOSPITAL LAB See Below * (ABNORMAL) COMPLETE BLOOD COUNT, WITHOUT DIFFERENTIAL (11/01/2024 6:20 AM EST) Only the most recent of13 resultswithin the time period is included. [facility] White Blood Cell Count 9.1 4.0 - 11.0 Thou/uL 11/01/2024 7:10 AM EST [facility] Platelet Count 261 150 - 450 Thou/uL 11/01/2024 7:10 AM EST [facility] Hemoglobin 9.2(L) 13.0 - 17.7 g/dL 11/01/2024 7:10 AM [facility] Hematocrit 29.7(L) 39.0 - 54.0 % 11/01/2024 7:10 AM [facility] Red Blood Cell Count 3.00(L) 4.50 - 6.20 Mil/uL 11/01/2024 7:10 AM [facility] MCV 99 80 - 100 fL 11/01/2024 7:10 AM [facility] MCH 30.7 27.0 - 31.0 pg 11/01/2024 7:10 AM [facility] MCHC 31.0 30.0 - 36.0 g/dL 11/01/2024 7:10 AM [facility] RDW 16.2(H) 11.5 - 14.5 % 11/01/2024 7:10 AM [facility] MPV 11.4 7.5 - 12.5 fL 11/01/2024 7:10 AM [facility] Blood Blood specimen / Unknown 11/01/2024 6:20 AM EST 11/01/2024 6:57 AM EST Jonna L [employer] PA-C LAB BLOOD ORDERABL ES Performing Organization Address City/[facility] [place] [address], [place] [address] * (ABNORMAL) Phosphorus (Early AM) (11/01/2024 6:20 AM EST) Only the most recent of15 resultswithin the time period is included. Phosphorus 4.7(H) 2.7 - 4.5 mg/dL 11/01/2024 7:58 AM [facility] Blood (Plasma/Serum) 11/01/2024 6:20 AM EST 11/01/2024 6:57 AM EST Jonna [email or web address] PA-C LAB BLOOD ORDERABL ES Performing Organization Address City/[facility]/[place] [address], [place] [address] * MAGNESIUM (11/01/2024 6:20 AM EST) Only the most recent of17 resultswithin the time period is included. Magnesium 1.6 1.6 - 2.7 mg/dL 11/01/2024 7:58 AM [facility] Blood (Plasma/Serum) 11/01/2024 6:20 AM EST 11/01/2024 6:57 AM EST Jonna Donis PA-C LAB BLOOD ORDERABL ES [facility] [address] [place] [address], [facility] [address] [place] [address] * (ABNORMAL) BASIC METABOLIC PANEL (11/01/2024 6:20 AM EST) Only the most recent of29 resultswithin the time period is included. Glucose 92 65 - 99 mg/dL 11/01/2024 7:58 AM [facility] Comment:Fasting: <100 mg/dL, Non-Fasting: <200 mg/dL (ADA 2005) Blood Urea Nitrogen (BUN) 41(H) 8 - 21 mg/dL 11/01/2024 7:58 AM [facility] Creatinine 4.5(H) 0.5 - 1.3 mg/dL 11/01/2024 7:58 AM [facility] eGFR 13(L) >59 11/01/2024 7:58 AM [facility] Comment:CKD-EPI (2020) in mL /min/1.73 sq meters. Sodium 140 136 - 145 mmol/L 11/01/2024 7:58 AM [facility] Potassium 4.8 3.4 - 5.3 mmol/L 11/01/2024 7:58 AM [facility] Chloride 104 98 - 107 mmol/L 11/01/2024 7:58 AM [facility] CO2 22 22 - 33 mmol/L 11/01/2024 7:58 AM [facility] Anion Gap 14 7 - 17 11/01/2024 7:58 AM [facility] Calcium 9.3 8.7 - 10.5 mg/dL 11/01/2024 7:58 AM EST [facility] BUN/Creatinine Ratio 9(L) 10.0 - 25.0 Ratio 11/01/2024 7:58 AM EST [facility] Blood (Plasma/Serum) 11/01/2024 6:20 AM EST 11/01/2024 6:57 AM EST Jonna Donis PA-C [place] [address], [place] [address] * CC CORONARY ANGIO W/LV (10/31/2024 6:34 PM EST) Anatomical Region Laterality Modality Radiographic Keily ging Narrative 10/31/2024 6:57 PM EST Table formatting from the original result was not included. Images from the original result were not included. [facility] Heart & Vascular [place] [facility] - Cardiac Catheterization Laboratory PATIENT DEMOGRAPHIC INFORMATION Name: Jorge Baum Edgarozziekirk : 1945 79 y.o. Sex: male Gender: male Procedure Date: 10/31/2024 PROCEDURE DETAILS Fitter Welder: Calixto Ureña MD Fellow: None Machining Engineer(s): none Indications for Procedure: ACS, drop in EF Referring Physician: Jorge Mcfarland Referring Sales Enablement Manager: PCP: Diaz Akers MD Procedure(s): Procedures: ??* [...] medical Struve coronary artery disease status post [place] in February 2024, heart failure with reduced [...] this patient that I request from a [facility] PA/RADIO TIME SALESPERSON/fellow/staff member. Calixto Ureña MD [facility] Heart & Vascular [place] 10/31/2024 ??6:57 PM Coronary Findings Diagnostic Dominance: [...] failure Calixto Ureña MD CV CARDIAC CATH ORDE CAITLYN * Heparin Assay (Anti Xa) (10/31/2024 3:28 [...] MD LAB BLOOD ORDERABLES Performing Organization Address [facility] [place] [address], [place] [address] * (ABNORMAL) High Sensitivity Troponin T (10/31/2024 [...] MD LAB BLOOD ORDERABLES Performing Organization Address [facility] [place] [address], [place] [address] * TSH, HIGHLY SENSITIVE (10/31/2024 7:16 AM EST) TSH, Highly Sensitive 2.06 0.27 - 4.20 mIU/L 10/31/2024 9:15 AM EST [facility] Plasma/Serum 10/31/2024 7:16 AM EST 10/31/2024 7:47 AM EST Madhav Ryan MD LAB BLOOD ORDERABLES Performing Organization Address [facility] Center/[facility] [place] [address], [place] [address] * (ABNORMAL) proBNP, N-terminal (10/29/2024 7:20 AM EST) Only the most recent of2 resultswithin the time period is included. proBNP, N-terminal 47,866(H) <450 pg/mL 10/29/2024 12:12 PM EST [facility] Plasma specimen / Unknown 10/29/2024 7:20 AM EST 10/29/2024 8:04 AM EST Madhav Ryan MD [place] [address], [place] [address] * ECG 12 lead (STAT) (10/27/2024 7:41 AM EST) Only the most recent of6 resultswithin the time period is included. Ventricular rate 60 BPM EKG [facility] Atrial rate [address] [facility] P-R interval 150 ms EKG [facility] QRS duration 84 ms EKG [facility] Q-T interval 488 ms EKG [facility] QTC calculation (Bazett) 488 ms EKG [facility] P axis 45 degrees EKG [facility] R axis 13 degrees EKG [facility] T axis 199 degrees EKG [facility] 10/27/2024 7:41 AM EST Narrative EKG [...] Ashish, Tanya (35) on 10/27/2024 6:03:18 PM Madhav Ryan [...] LAB BLOOD ORDERAB LES Performing Organization Address [facility] [place] [address], [place] [address] * (ABNORMAL) B-Hydroxybutyrate (10/24/2024 7:11 AM EST) [...] MD LAB BLOOD ORDERABLES Performing Organization Address [facility] [place] [address], [place] [address] * (ABNORMAL) PTH, Intact (10/23/2024 10:31 AM EST) PTH, Intact 579(H) 15 - 65 pg/mL 10/23/2024 12:23 PM EST [facility] Blood (Plasma/Serum) 10/23/2024 10:31 AM EST 10/23/2024 11:36 AM EST Jorge Mcfarland MD LAB BLOOD ORDERAB LES Performing Organization Address City/[facility] [place] [address], [place] [address] * (ABNORMAL) Calcium, Ionized (10/23/2024 10:31 AM EST) Calcium, Ionized 0.88(L) 1.17 - 1.33 mmol/L 10/23/2024 12:16 PM [facility] Blood Blood specimen / Unknown 10/23/2024 10:31 AM EST 10/23/2024 11:36 AM EST Jorge Mcfarland MD LAB BLOOD ORDERAB LES [facility] [address] [place] [address], [address] [address] * (ABNORMAL) Calcium, Total (10/23/2024 10:31 AM EST) Calcium 7.4(L) 8.7 - 10.5 mg/dL 10/23/2024 12:13 PM [facility] Blood (Plasma/Serum) 10/23/2024 10:31 AM EST 10/23/2024 11:36 AM EST Jorge Mcfarland MD LAB BLOOD ORDERAB LES Performing Organization Address City/[facility]/ZIP Co de Phone Number [facility] [address] [place] [address], [facility] [address] [place] [address] * Albumin (10/23/2024 10:31 AM EST) Albumin 3.5 3.4 - 4.8 g/dL 10/23/2024 12:13 PM [facility] Blood (Plasma/Serum) 10/23/2024 10:31 AM EST 10/23/2024 11:36 AM EST Jorge Mcfarland MD LAB BLOOD ORDERAB LES [facility] [address] [place] [address], [address] [address] * (ABNORMAL) LIPID PANEL (10/23/2024 6:05 AM EST) Cholesterol, Total 110 <200 mg/dL 2024 8:30 AM [facility] Triglycerides 141 <150 mg/dL 10/23/2024 8:30 AM [facility] Cholesterol, HDL 30(L) >39 mg/dL 10/23/19 8:30 AM [facility] Estimated LDL 52 <130 mg/dL 10/23/2024 8:30 AM [facility] Comment: NCEP Guidelines: ?< 100 mg/dL ??Optimal 100 - 129 mg/dL ??Near Optimal/Above Optimal 130 - 159 mg/dL ??Borderline High 160 - 189 mg/dL ??High ??>/= 190 mg/dL ??Very High Cholesterol/HDL Ratio 3.7 0.0 - 5.0 Ratio 10/23/2024 8:30 AM [facility] Comment: Relative Risk ? Ratio - Male ? Ratio - Female ?0.5 ?3.4 ?3.3 ?1.0 ?5.0 ?4.4 ?2.0 ?9.6 ?7.1 ?3.0 ? 23.4 ? 11.0 Plasma/Serum 10/23/2024 6:05 AM EST 10/23/2024 7:46 AM EST Adilia Woo MD LAB BLOOD ORDERABLES Performing Organization Address [facility]/State/[place] [address], [place] [address] * (ABNORMAL) Blood Gas, Venous (10/20/2024 10:39 AM EST) Only the most recent of7 resultswithin the time period is included. Venous Blood PH 7.29(L) 7.33 - 7.43 10/20/2024 10:54 AM EST [facility] Venous pCO2 39 35 - 50 mmHG 10/20/2024 10:54 AM [facility] Venous pO2 49 0 - 60 mmHG 10/20/2024 10:54 AM [facility] Venous Total CO2 20(L) 23 - 29 mmol/L 10/20/2024 10:54 AM [facility] Respiratory Info NASAL 4 L/MIN 10/20/2024 10:39 AM EST Base Deficiency 7.2 mmol/L 10:54 AM [facility] Comment:Reference Range: Neg ative 2 to Positive 3 Blood Blood specimen / Unknown 10/20/2024 10:39 AM EST 10/20/2024 10:47 AM EST Kristopher Hickey MD LAB BLOOD ORDERAB LES Performing Organization Address City/[facility]/[place] [address], [place] [address] * Lactic Acid, Plasma (STAT) (10/20/2024 10:00 AM EST) Only the most recent of2 resultswithin the time period is included. Lactic Acid 0.8 0.5 - 1.9 mmol/L 10/20/2024 10:37 AM [facility] Blood Plasma specimen / Unknown 10/20/2024 10:00 AM EST 10/20/2024 10:07 AM EST Kristopher Hickey MD LAB BLOOD ORDERAB LES Performing Organization Address City/[facility]/[place] [address], [place] [address] * (ABNORMAL) Complete Blood Count, with Differential (10/19/2024 11:59 PM EST) Only the most recent of2 resultswithin the time period is included. White Blood Cell Count 11.5(H) 4.0 - 11.0 Thou/uL 10/20/2024 12:32 [facility] Platelet Count 271 150 - 450 Thou/uL 10/20/2024 12:32 [facility] Hemoglobin 8.9(L) 13.0 - 17.7 g/dL 10/20/2024 12:32 AM [facility] Hematocrit 28.6(L) 39.0 - 54.0 % 10/20/2024 12:32 [facility] Red Blood Cell Count 2.93(L) 4.50 - 6.20 Mil/uL 10/20/2024 12:32 [facility] MCV 98 80 - 100 fL 10/20/2024 12:32 AM [facility] MCH 30.4 27.0 - 31.0 pg 10/20/2024 12:32 AM [facility] MCHC 31.1 30.0 - 36.0 g/dL 10/20/2024 12:32 AM [facility] RDW 16.5(H) 11.5 - 14.5 % 10/20/2024 12:32 [facility] MPV 11.3 7.5 - 12.5 fL 10/20/2024 12:32 AM [facility] Neutrophils Auto 80.7 % 10/20/19 25 12:32 AM [facility] Immature Granulocytes 0.6 % 10/20/2024 12:32 AM [facility] Lymphocytes Auto 11.6 % 10/20/19 25 12:32 AM [facility] Monocytes Auto 6.7 % 10/20/2024 12:32 [facility] Eosinophils Auto 0.2 % 10/20/19 25 12:32 [facility] Basophils Auto 0.2 % 10/20/2024 12:32 [facility] Abs Neutrophils Auto 9.25(H) 2.00 - 7.50 Thou/uL 10/20/2024 12:32 [facility] Abs Immature Granulocytes 0.07 0.00 - 0.10 Thou/uL 10/20/2024 12:32 AM [facility] Abs Lymphocytes Auto 1.33(L) 1.50 - 4.50 Thou/uL 10/20/2024 12:32 AM [facility] Abs Monocytes Auto 0.77 0.20 - 1.50 Thou/uL 10/20/2024 12:32 AM [facility] Abs Eosinophils Auto 0.02 0.00 - 0.70 Thou/uL 10/20/2024 12:32 AM [facility] Abs Basophils Auto 0.02 0.00 - 0.20 Thou/uL 10/20/2024 12:32 AM [facility] Blood Blood specimen / Unknown 10/19/2024 11:59 PM EST 10/20/2024 12:25 AM EST Fuad Winter MD [place] [address], [place] [address] * (ABNORMAL) Hemoglobin and Hematocrit (10/19/2024 2:25 PM EST) Hematocrit 32.3(L) 39.0 - 54.0 % 10/19/2024 3:39 PM [facility] Hemoglobin 9.9(L) 13.0 - 17.7 g/dL 10/19/2024 3:39 PM [facility] Blood Blood specimen / Unknown 10/19/2024 2:25 PM EST 10/19/2024 3:31 PM EST Kristopher Hickey MD [place] [address], [place] [address] * (ABNORMAL) Hemoglobin A1C with Estimated Average Glucose (10/19/2024 1:20 AM EST) Hemoglobin A1C 8.7(H) <5.7 % 10/19/2024 12:02 PM [facility] Comment: A1c% ? Interpretation 5.7 - 6.0 ?Increase risk of diabetes 6.1 - 6.4 ?Higher risk of diabetes > or = 6.5 ?? Consistent with diabetes Diabetes Care, 33(Supp 1):S1-S61, 2010 Estimated Average Glucose 203 mg/dL 10/19/2024 12:02 PM EST [facility] Blood specimen / Unknown 10/19/2024 1:20 AM EST 10/19/2024 2:17 AM EST Pushpa Gallegos MD LAB BLOOD ORDERABLES [address] [address], [address] [address] * US Guided Bedside Thoracentesis-Bilateral (10/18/2024 6:10 [...] Sample left with bedside RN. ACCESS: 6 [place] Nzji-K-Tqsfbvto closed needle/catheter system ?? REQUESTING PRACTITIONER: Cheryl [...] adjacent organs or vascular structures. A 6 [place] Naka-R-Rjpolyiw closed needle/catheter system was utilized for access. [...] adjacent organs or vascular structures. A 6 [place] Oiiz-Y-Mhlkmzxe closed needle/catheter system was utilized for access. 550 mL of clear devorah fluid was aspirated before drainage ceased. The catheter was removed and a sterile dressing applied. The patient tolerated the procedure well without evidence of complications. ?? Pushpa Gallegos MD [facility] US ORDERABLES * Body Fluid Culture (aerobic, anaerobic [...] 10/18/2024 7:53 PM EST Fuad Winter MD LAB AMB MICRO ORDERABLES [facility] [address] [place] [address], [address] [address] * Mycobacteria Culture (includes acid fast smear) (10/18/2024 5:55 PM EST) Acid Fast Smear No acid fast bacilli seen 10/19/2024 12:03 PM EST [facility] Culture No acid fast bacilli isolated. 11/30/2024 3:29 PM EST [facility] 10/18/2024 5:55 PM EST 10/18/2024 7:55 PM EST Fuad Winter MD LAB AMB MICRO ORDERABLES Performing Organization Address City/[facility]/ZIP Co de Phone Number [facility] [address] [place] [address], * Fungal Culture, Other Than Blood (10/18/2024 5:55 PM EST) Culture No fungus isolated 11/02/2024 8:34 AM [facility] 10/18/2024 5:55 PM EST 10/18/2024 7:54 PM EST Fuad Winter MD LAB AMB MICRO ORDERABLES Performing Organization Address City/[facility]/ZIP Co de Phone Number [facility] [address] [place] [address], * Cell Count, Reflex Differential, Body Fluid (10/18/2024 5:50 PM EST) Only the most recent of2 resultswithin the time period is included. Appearance, Body Fluid Cloudy 10/18/2024 8:25 PM EST [facility] Color Williams 10/18/2024 8:25 PM [facility] Nucleated Cells, Fluid 435 /CUMM 10/18/2024 8:24 PM [facility] RBC, Fluid 11,000 /CUMM 10/18/2024 8:24 PM [facility] Neutrophil, Body Fluid 3 % 10/18/2024 8:25 PM [facility] Lymphoctye, Body Fluid 27 % 10/18/2024 8:25 PM [facility] Monocyte, Body Fluid 21 % 10/18/2024 8:25 PM [facility] Histiocyte, Body Fluid 46 % 10/18/2024 8:25 PM [facility] Mesothelial, Body Fluid 3 % 10/18/2024 8:25 PM [facility] Smear Comment, Body Fluid The reference interval and other method performance specifications are unavailable for this body fluid. Comparison of the result with concentration in the blood, serum, or plasma is recommended 10/18/2024 8:25 PM [facility] 10/18/2024 5:50 PM EST 10/18/2024 6:49 PM EST Fuad Winter MD BODY FLUIDS A ND STOOLS ORDERABLES Performing Organization Address [facility] [place] [address], [place] [address] * Protein, Body Fluid (10/18/2024 5:50 PM EST) Only the most recent of2 resultswithin the time period is included. Source RIGHT PLEURAL EFFUSION 10/18/2024 6:49 PM [facility] Protein, Body Fluid 2.2 g/dL 10/18/2024 7:15 PM [facility] Comment:The reference interv al(s) and other method performance specifications are unavailable for this body fluid. Comparison of this result with the concentration in the blood, serum, or plasma is recommended. 10/18/2024 5:50 PM EST 10/18/2024 6:49 PM EST Fuad Winter MD LAB AMB FLUID /STOOL ORDERABLES Performing Organization Address [facility] [place] [address], [place] [address] * Glucose, Body Fluid (10/18/2024 5:50 PM [...] 10/18/2024 6:49 PM EST Fuad Winter MD LAB AMB FLUID /STOOL ORDERABLES Performing Organization Address [facility] [place] [address], [place] [address] * PH, BODY FLUID (10/18/2024 5:50 PM EST) Only the most recent of2 resultswithin the time period is included. Source RIGHT PLEURAL EFFUSION 10/18/2024 6:49 PM EST [facility] pH, Body Fluid 7.34 10/18/2024 7:14 PM [facility] 10/18/2024 5:50 PM EST 10/18/2024 6:49 PM EST Fuad Winter MD LAB AMB FLUID /STOOL ORDERABLES Performing Organization Address [facility] [place] [address], [place] [address] * LDH - Pleural Fluid (10/18/2024 5:39 [...] 10/18/2024 6:57 PM EST Pushpa Gallegos MD LAB AMB FLUID/STOOL ORDERABLES [address] [address], [facility] [address] [place] [address] * ECHOCARDIOGRAM COMPREHENSIVE WITH CONTRAST (10/18/2024 12:14 [...] system. ?Dr. Pushpa Gallegos was notified by [employer] text at 12:36 PM. Technical Details Definity [...] LAB BLOOD ORD ERABLES Performing Organization Address [facility] [place] [address], [place] [address] * (ABNORMAL) Protime-INR (10/18/2024 5:16 AM EST) [...] LAB BLOOD ORD ERABLES Performing Organization Address City/[facility]/[place] [address], [place] [address] * (ABNORMAL) Osmolality (10/18/2024 5:16 AM EST) Osmolality, Serum/Plasma 359(H) 285 - 295 mOsm/Kg 10/18/2024 6:43 AM EST [facility] Blood (Plasma/Serum) 10/18/2024 5:16 AM EST 10/18/2024 5:42 AM EST Fuad Winter MD LAB BLOOD ORD ERABLES [address] [address], [address] [address] from Last 3 Months Advance Directives * Full Code (Latest Code Status on File) Date Activated Date Inactivated Comments 10/18/2024 7:04 AM Care Teams Route Sales Delivery Driver Relationship Specialty Start Date End Date Diaz Akers MD PCP - General Internal Medicine 10/20/24
--- OUTSIDE RECORDS SUMMARY | 2024-12-06 15:54 | XMS_ITS | Encounter Summary ---
Author Organization [facility] Address [address] [place] [address] Phone Care Team Providers Care Biomedical Equipment Technician Name Role Phone Unavailable Primary Care Provider Unavailabl e Encounter Details Date Type Department Care Team (Late st Contact Info) Description 08/16/2023 Office Communication [facility] [address] [facility] [address] [place] [address] Kang Britt MD [phone] [facility] [address] [place] [address] Social History Tobacco Use Types [...]
--- OUTSIDE RECORDS SUMMARY | 2024-12-06 15:54 | XMS_ITS | Clinical Summary ---
Author Organization [facility] Address [address] [facility] [address] [place] [address] Phone Care Team Providers Care Land Resource Specialist Name Role Phone Unavailable Primary Care Provider [...] renal failure,Chronic kidney disease stage 4 (HCC) 79690 Units IJ Every 21 days 07/09/2021 Active epoetin kelley (EPOGEN,PROCRIT) injection 20,000 UnitsIndications:Anemia due to Renal Failure 11555 Units IV Every 14 days 08/16/2022 Active epoetin kelley (EPOGEN,PROCRIT) injection 10,000 UnitsIndications:Anemia due to Renal Failure 25597 Units IV Every 14 days 08/30/2022 Active epoetin kelley (EPOGEN,PROCRIT) injection 10,000 UnitsIndications:Anemia due to Renal Failure 90161 Units IV Every 14 days 09/27/2022 Active Epoetin Kelley-epbx solution 30,000 UnitsIndications:Anemia in chronic kidney disease,Chronic kidney disease stage 4 (HCC) 68054 Units IJ Once 12/13/2022 Ac tive Epoetin Kelley-epbx solution 20,000 UnitsIndications:Anemia in chronic kidney disease,Chronic kidney disease stage 4 (HCC) 42036 Units IJ Once 12/27/2022 Ac tive Active [...] * Hemoglobin A1c (11/13/2018 8:00 AM EST) [facility] Hemoglobin A1C 7.4 % [facility] Comment: [...] average glucose, using the formula of the H5G-Akovtoi Average Glucose study (ADAG), Diabetes Care, Vol.31,#8, May. 2007 11/13/2018 8:00 AM EST us Kev Esteves MD LAB BLOOD ORDERABLES Final Result [place] from Last 3 Months or Most Recently Relevant to Health Maintenance [place] [address] [place] [address]
--- OUTSIDE RECORDS SUMMARY | 2024-12-06 16:41 | XMS_ITS | Encounter Summary ---
Author Organization [facility] Address [address] [place] [address] Care Team Providers Care [employer] Supervisor Name Role Phone Diaz Akers MD Primary Care Provider Soledad vailable Encounter Details Date Type Department Care Team (Late st Contact Info) Description 10/19/2024 Scanned Document CARDIOLOGY IP [address] [place] [phone] Sejal Blair [address] [address] Social History Tobacco Use Types Packs/Day Years Used Date Smoking Tobacco: Never Assessed [facility] Utilities Answer Date Recorded In the past 12 months has [employer] electric, gas, oil, or water company threatened [...] any time in the past 12 [address] [place] [place], were you homeless or living in a [...] documented as of this encounter Care Teams [employer] Supervisor Relationship Specialty Start Date End Date Diaz Akers MD PCP - General Internal Medicine 10/20/24 documented as of this encounter
--- OUTSIDE RECORDS SUMMARY | 2024-12-06 16:41 | XMS_ITS | Clinical Summary ---
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 Name Role Phone Diaz Akers MD Primary [...] EST - 10/31/2024 6:26 PM EST Surgery [facility] Heart & Vascular [place] at [facility] - Cardiac Catheterization Laboratory [address] [place] [address] Calixto Ureña MD CORONARY ANGIO W/LV 10/19/2024 Scanned Document CARDIOLOGY IP [address] [place] [id number] Sejal Blair 10/18/2024 5:10 AM EST - 11/01/2024 4:42 PM EST Hospital Encounter [facility] 10 [address] [place] [address] WinterFuad MD Perkins, Michael E, MD [...] Tobacco: Never Tobacco Cessation:Counseling Given: Not Answered [facility] Utilities Answer Date Recorded In the past 12 months has [employer], gas, oil, or water [employer] threatened to shut off services in your [...] any time in the past 12 m [facility], were you homeless or living [...] of109 resultswithin the time period is included. [facility] POC Glucose 189(H) 65 - 99 mg/dL 11/01/2024 12:05 PM EST Blood specimen / Unknown 11/01/2024 12:04 PM EST 11/01/2024 12:05 PM EST Fuad Winter MD POINT OF CARE TEST ORDERABLES HOSPITAL LAB See Below * (ABNORMAL) COMPLETE BLOOD COUNT, WITHOUT DIFFERENTIAL (11/01/2024 6:20 AM EST) Only the most recent of13 resultswithin the time period is included. [facility] White Blood Cell Count 9.1 4.0 - 11.0 Thou/uL 11/01/2024 7:10 AM EST [facility] Platelet Count 261 150 - 450 Thou/uL 11/01/2024 7:10 AM EST [facility] Hemoglobin 9.2(L) 13.0 - 17.7 g/dL 11/01/2024 7:10 AM [facility] Hematocrit 29.7(L) 39.0 - 54.0 % 11/01/2024 7:10 AM [facility] Red Blood Cell Count 3.00(L) 4.50 - 6.20 Mil/uL 11/01/2024 7:10 AM [facility] MCV 99 80 - 100 fL 11/01/2024 7:10 AM [facility] MCH 30.7 27.0 - 31.0 pg 11/01/2024 7:10 AM [facility] MCHC 31.0 30.0 - 36.0 g/dL 11/01/2024 7:10 AM [facility] RDW 16.2(H) 11.5 - 14.5 % 11/01/2024 7:10 AM [facility] MPV 11.4 7.5 - 12.5 fL 11/01/2024 7:10 AM [facility] Blood Blood specimen / Unknown 11/01/2024 6:20 AM EST 11/01/2024 6:57 AM EST [employer] PA-C LAB BLOOD ORDERABL ES Performing Organization Address City/[facility] [place] [address], [place] [address] * (ABNORMAL) Phosphorus (Early AM) (11/01/2024 6:20 AM EST) Only the most recent of15 resultswithin the time period is included. Phosphorus 4.7(H) 2.7 - 4.5 mg/dL 11/01/2024 7:58 AM [facility] Blood (Plasma/Serum) 11/01/2024 6:20 AM EST 11/01/2024 6:57 AM EST [employer]onna [employer] PA-C LAB BLOOD ORDERABL ES Performing Organization Address City/[facility]/[place]IP [place] [address], [place] [address] * MAGNESIUM (11/01/2024 6:20 AM EST) Only the most recent of17 resultswithin the time period is included. Magnesium 1.6 1.6 - 2.7 mg/dL 11/01/2024 7:58 AM [facility] Blood (Plasma/Serum) 11/01/2024 6:20 AM EST 11/01/2024 6:57 AM EST Jonna Donis PA-C LAB BLOOD ORDERABL ES [facility] [address] [place] [address], [facility] [address] [place] [address] * (ABNORMAL) BASIC METABOLIC PANEL (11/01/2024 6:20 AM EST) Only the most recent of29 resultswithin the time period is included. Glucose 92 65 - 99 mg/dL 11/01/2024 7:58 AM [facility] Comment:Fasting: <100 mg/dL, Non-Fasting: <200 mg/dL (ADA 2005) Blood Urea Nitrogen (BUN) 41(H) 8 - 21 mg/dL 11/01/2024 7:58 AM [facility] Creatinine 4.5(H) 0.5 - 1.3 mg/dL 11/01/2024 7:58 AM [facility] eGFR 13(L) >59 11/01/2024 7:58 AM [facility] Comment:CKD-EPI (2020) in mL /min/1.73 sq meters. Sodium 140 136 - 145 mmol/L 11/01/2024 7:58 AM [facility] Potassium 4.8 3.4 - 5.3 mmol/L 11/01/2024 7:58 AM [facility] Chloride 104 98 - 107 mmol/L 11/01/2024 7:58 AM [facility] CO2 22 22 - 33 mmol/L 11/01/2024 7:58 AM [facility] Anion Gap 14 7 - 17 11/01/2024 7:58 AM [facility] Calcium 9.3 8.7 - 10.5 mg/dL 11/01/2024 7:58 AM EST [facility] BUN/Creatinine Ratio 9(L) 10.0 - 25.0 Ratio 11/01/2024 7:58 AM EST [facility] Blood (Plasma/Serum) 11/01/2024 6:20 AM EST 11/01/2024 6:57 AM EST Jonna Donis PA-C [place] [address], [place] [address] * CC CORONARY ANGIO W/LV (10/31/2024 6:34 PM EST) Anatomical Region Laterality Modality Radiographic Keily ging Narrative 10/31/2024 6:57 PM EST Table formatting from the original result was not included. Images from the original result were not included. [facility] Heart & Vascular [place] at [facility] - Cardiac Catheterization Laboratory PATIENT DEMOGRAPHIC INFORMATION Name: Jorge Baum Edgarozziekirk : 1945 79 y.o. 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 Calixto Ureña MD [facility] [place] 10/31/2024 ??6:57 PM Coronary Findings Diagnostic Dominance: [...] Xa 0.36 IU/mL 10/31/2024 4:07 PM EST [facility] Comment: (NOTE) Heparin Thromboembolic/Standard/Full Dose Protocol: [...] BLOOD ORDERABLES Performing Organization Address [facility] [place] [address], [place] [address] * (ABNORMAL) High Sensitivity Troponin T (10/31/2024 7:16 AM EST) Only the most recent of12 resultswithin the time period is included. High Sensitivity Troponin T 396(HH) <23 ng/L 10/31/2024 9:15 AM EST [facility] Delta (Change) NO PREVIOUS RESULT <3 10/31/2024 9:15 AM EST [facility] Plasma/Serum 10/31/2024 7:16 AM EST 10/31/2024 7:47 AM EST Madhav Ryan MD LAB BLOOD ORDERABLES Performing Organization Address [facility] [place] [address], [place] [address] * TSH, HIGHLY SENSITIVE (10/31/2024 7:16 AM EST) TSH, Highly Sensitive 2.06 0.27 - 4.20 mIU/L 10/31/2024 9:15 AM EST [facility] Plasma/Serum 10/31/2024 7:16 AM EST 10/31/2024 7:47 AM EST Madhav Ryan MD LAB BLOOD ORDERABLES Performing Organization Address [facility] [place] [address], [place] [address] * (ABNORMAL) proBNP, N-terminal (10/29/2024 7:20 AM EST) Only the most recent of2 resultswithin the time period is included. proBNP, N-terminal 47,866(H) <450 pg/mL 10/29/2024 12:12 PM EST [facility] Plasma specimen / Unknown 10/29/2024 7:20 AM EST 10/29/2024 8:04 AM EST Madhav Ryan MD [place] [address], [place] [address] * ECG 12 lead (STAT) (10/27/2024 7:41 AM EST) Only the most recent of6 resultswithin the time period is included. Ventricular rate 60 BPM EKG [facility] Atrial rate 60 BPM EKG [facility] P-R interval 150 ms EKG [facility] QRS duration 84 ms EKG [facility] Q-T interval 488 ms EKG [facility] QTC calculation (Bazett) 488 ms EKG [facility] P axis 45 degrees EKG [facility] R axis 13 degrees EKG [facility] T axis 199 degrees EKG [facility] 10/27/2024 7:41 AM EST Narrative EKG [facility] - 10/27/2024 6:03 PM EST Normal [...] PM Madhav Ryan MD ECG ORDERABLES EKG [facility] * XR Chest 1 view-Portable (STAT) [...] - 204 U/L 10/25/2024 10:25 AM EST [facility] Plasma/Serum 10/25/2024 8:27 AM EST 10/25/2024 9:16 AM EST Jorge Mcfarland MD LAB BLOOD ORDERAB LES Performing Organization Address [facility] [place] [address], [place] [address] * (ABNORMAL) B-Hydroxybutyrate (10/24/2024 7:11 AM EST) Only the most recent of4 resultswithin the time period is included. B-Hydroxybutyrate 2.36(H) <0.28 mmol/L 10/24/2024 10:30 AM EST [facility] Comment: In the presence of uncontrolled [...] MD LAB BLOOD ORDERABLES Performing Organization Address [facility] [place] [address], [place] [address] * (ABNORMAL) PTH, Intact (10/23/2024 10:31 AM EST) PTH, Intact 579(H) 15 - 65 pg/mL 10/23/2024 12:23 PM EST [facility] Blood (Plasma/Serum) 10/23/2024 10:31 AM EST 10/23/2024 11:36 AM EST Jorge Mcfarland MD LAB BLOOD ORDERAB LES Performing Organization Address City/[facility] [place] [address], [place] [address] * (ABNORMAL) Calcium, Ionized (10/23/2024 10:31 AM EST) Calcium, Ionized 0.88(L) 1.17 - 1.33 mmol/L 10/23/2024 12:16 PM [facility] Blood Blood specimen / Unknown 10/23/2024 10:31 AM EST 10/23/2024 11:36 AM EST Jorge Mcfarland MD LAB BLOOD ORDERAB LES [facility] [address] [place] [address], [address] [address] * (ABNORMAL) Calcium, Total (10/23/2024 10:31 AM EST) Calcium 7.4(L) 8.7 - 10.5 mg/dL 10/23/2024 12:13 PM [facility] Blood (Plasma/Serum) 10/23/2024 10:31 AM EST 10/23/2024 11:36 AM EST Jorge Mcfarland MD LAB BLOOD ORDERAB LES Performing Organization Address City/[facility]/ZIP Co de Phone Number [facility] [address] [place] [address], [facility] [address] [place] [address] * Albumin (10/23/2024 10:31 AM EST) Albumin 3.5 3.4 - 4.8 g/dL 10/23/2024 12:13 PM [facility] Blood (Plasma/Serum) 10/23/2024 10:31 AM EST 10/23/2024 11:36 AM EST Jorge Mcfarland MD LAB BLOOD ORDERAB LES [facility] [address] [place] [address], [address] [address] * (ABNORMAL) LIPID PANEL (10/23/2024 6:05 AM EST) Cholesterol, Total 110 <200 mg/dL 2024 8:30 AM [facility] Triglycerides 141 <150 mg/dL 10/23/2024 8:30 AM [facility] Cholesterol, HDL 30(L) >39 mg/dL 10/23/19 8:30 AM [facility] Estimated LDL 52 <130 mg/dL 10/23/2024 8:30 AM [facility] Comment: NCEP Guidelines: ?< 100 mg/dL ??Optimal 100 - 129 mg/dL ??Near Optimal/Above Optimal 130 - 159 mg/dL ??Borderline High 160 - 189 mg/dL ??High ??>/= 190 mg/dL ??Very High Cholesterol/HDL Ratio 3.7 0.0 - 5.0 Ratio 10/23/2024 8:30 AM [facility] Comment: Relative Risk ? Ratio - Male ? Ratio - Female ?0.5 ?3.4 ?3.3 ?1.0 ?5.0 ?4.4 ?2.0 ?9.6 ?7.1 ?3.0 ? 23.4 ? 11.0 Plasma/Serum 10/23/2024 6:05 AM EST 10/23/2024 7:46 AM EST Adilia Woo MD LAB BLOOD ORDERABLES Performing Organization Address [facility]/State/ZIP [place] [address], [place] [address] * (ABNORMAL) Blood Gas, Venous (10/20/2024 10:39 AM EST) Only the most recent of7 resultswithin the time period is included. Venous Blood PH 7.29(L) 7.33 - 7.43 10/20/2024 10:54 AM EST [facility] Venous pCO2 39 35 - 50 mmHG 10/20/2024 10:54 AM [facility] Venous pO2 49 0 - 60 mmHG 10/20/2024 10:54 AM [facility] Venous Total CO2 20(L) 23 - 29 mmol/L 10/20/2024 10:54 AM [facility] Respiratory Info NASAL 4 L/MIN 10/20/2024 10:39 AM EST Base Deficiency 7.2 mmol/L 10:54 AM [facility] Comment:Reference Range: Neg ative 2 to Positive 3 Blood Blood specimen / Unknown 10/20/2024 10:39 AM EST 10/20/2024 10:47 AM EST Kristopher Hickey MD LAB BLOOD ORDERAB LES Performing Organization Address City/[facility]/[place] [address], [place] [address] * Lactic Acid, Plasma (STAT) (10/20/2024 10:00 AM EST) Only the most recent of2 resultswithin the time period is included. Lactic Acid 0.8 0.5 - 1.9 mmol/L 10/20/2024 10:37 AM [facility] Blood Plasma specimen / Unknown 10/20/2024 10:00 AM EST 10/20/2024 10:07 AM EST Kristopher Hickey MD LAB BLOOD ORDERAB LES Performing Organization Address City/[facility]/[place] [address], [place] [address] * (ABNORMAL) Complete Blood Count, with Differential (10/19/2024 11:59 PM EST) Only the most recent of2 resultswithin the time period is included. White Blood Cell Count 11.5(H) 4.0 - 11.0 Thou/uL 10/20/2024 12:32 [facility] Platelet Count 271 150 - 450 Thou/uL 10/20/2024 12:32 [facility] Hemoglobin 8.9(L) 13.0 - 17.7 g/dL 10/20/2024 12:32 AM [facility] Hematocrit 28.6(L) 39.0 - 54.0 % 10/20/2024 12:32 [facility] Red Blood Cell Count 2.93(L) 4.50 - 6.20 Mil/uL 10/20/2024 12:32 [facility] MCV 98 80 - 100 fL 10/20/2024 12:32 AM [facility] MCH 30.4 27.0 - 31.0 pg 10/20/2024 12:32 AM [facility] MCHC 31.1 30.0 - 36.0 g/dL 10/20/2024 12:32 AM [facility] RDW 16.5(H) 11.5 - 14.5 % 10/20/2024 12:32 [facility] MPV 11.3 7.5 - 12.5 fL 10/20/2024 12:32 AM [facility] Neutrophils Auto 80.7 % 10/20/19 25 12:32 AM [facility] Immature Granulocytes 0.6 % 10/20/2024 12:32 AM [facility] Lymphocytes Auto 11.6 % 10/20/19 25 12:32 AM [facility] Monocytes Auto 6.7 % 10/20/2024 12:32 [facility] Eosinophils Auto 0.2 % 10/20/19 25 12:32 [facility] Basophils Auto 0.2 % 10/20/2024 12:32 [facility] Abs Neutrophils Auto 9.25(H) 2.00 - 7.50 Thou/uL 10/20/2024 12:32 [facility] Abs Immature Granulocytes 0.07 0.00 - 0.10 Thou/uL 10/20/2024 12:32 AM [facility] Abs Lymphocytes Auto 1.33(L) 1.50 - 4.50 Thou/uL 10/20/2024 12:32 AM [facility] Abs Monocytes Auto 0.77 0.20 - 1.50 Thou/uL 10/20/2024 12:32 AM [facility] Abs Eosinophils Auto 0.02 0.00 - 0.70 Thou/uL 10/20/2024 12:32 AM [facility] Abs Basophils Auto 0.02 0.00 - 0.20 Thou/uL 10/20/2024 12:32 AM [facility] Blood Blood specimen / Unknown 10/19/2024 11:59 PM EST 10/20/2024 12:25 AM EST Fuad Winter MD LAB [place] [address], [place] [address] * (ABNORMAL) Hemoglobin and Hematocrit (10/19/2024 2:25 PM EST) Hematocrit 32.3(L) 39.0 - 54.0 % 10/19/2024 3:39 PM [facility] Hemoglobin 9.9(L) 13.0 - 17.7 g/dL 10/19/2024 3:39 PM [facility] Blood Blood specimen / Unknown 10/19/2024 2:25 PM EST 10/19/2024 3:31 PM EST Kristopher Hickey MD LAB [place] [address], [place] [address] * (ABNORMAL) Hemoglobin A1C with Estimated Average Glucose (10/19/2024 1:20 AM EST) Hemoglobin A1C 8.7(H) <5.7 % 10/19/2024 12:02 PM [facility] Comment: A1c% ? Interpretation 5.7 - 6.0 ?Increase risk of diabetes 6.1 - 6.4 ?Higher risk of diabetes > or = 6.5 ?? Consistent with diabetes Diabetes Care, 33(Supp 1):S1-S61, 2010 Estimated Average Glucose 203 mg/dL 10/19/2024 12:02 PM EST [facility] Blood specimen / Unknown 10/19/2024 1:20 AM EST 10/19/2024 2:17 AM EST Pushpa Gallegos MD LAB BLOOD ORDERABLES [address] [address], [address] [address] * US Guided Bedside Thoracentesis-Bilateral (10/18/2024 6:10 [...] Sample left with bedside RN. ACCESS: 6 [place] Yefn-F-Fbdmvmyw closed needle/catheter system ?? REQUESTING PRACTITIONER: Cheryl Blue MD CLINICIAN(S): CHELLY aGitan CONSENT: Informed consent was obtained from the [...] record. A timeout procedure was performed. HISTORY: Joreg Wilder is a 79 y.o. old male [...] adjacent organs or vascular structures. A 6 [place] Bcdw-Z-Jmkiafun closed needle/catheter system was utilized for access. [...] adjacent organs or vascular structures. A 6 [place] Oldu-M-Iukbztdh closed needle/catheter system was utilized for access. 550 mL of clear devorah fluid was aspirated before drainage ceased. The catheter was removed and a sterile dressing applied. The patient tolerated the procedure well without evidence of complications. ?? Pushpa Gallegos MD [facility] [place] ORDERABLES * Body Fluid Culture (aerobic, anaerobic and Gram stain) (10/18/2024 5:55 PM EST) Only the most recent of2 resultswithin the time period is included. Gram stain suggestive of Few neutrophils Mononuclear cells No organisms seen 10/18/2024 9:52 PM EST [facility] Culture No aerobes and anaerobes isolated after 7 days 10/25/2024 3:19 PM EST [facility] 10/18/2024 5:55 PM EST 10/18/2024 7:53 PM EST Fuad Winter MD LAB AMB MICRO ORDERABLES [facility] [address] [place] [address], [address] [address] * Mycobacteria Culture (includes acid fast smear) (10/18/2024 5:55 PM EST) Acid Fast Smear No acid fast bacilli seen 10/19/2024 12:03 PM EST [facility] Culture No acid fast bacilli isolated. 11/30/2024 3:29 PM EST [facility] 10/18/2024 5:55 PM EST 10/18/2024 7:55 PM EST Fuad Winter MD LAB AMB MICRO ORDERABLES Performing Organization Address City/[facility]/ZIP Co de Phone Number [facility] [address] [place] [address], * Fungal Culture, Other Than Blood (10/18/2024 5:55 PM EST) Culture No fungus isolated 11/02/2024 8:34 AM [facility] 10/18/2024 5:55 PM EST 10/18/2024 7:54 PM EST Fuad Winter MD LAB AMB MICRO ORDERABLES Performing Organization Address City/[facility]/ZIP Co de Phone Number [facility] [address] [place] [address], * Cell Count, Reflex Differential, Body Fluid (10/18/2024 5:50 PM EST) Only the most recent of2 resultswithin the time period is included. Appearance, Body Fluid Cloudy 10/18/2024 8:25 PM EST [facility] Color Cass 10/18/2024 8:25 PM [facility] Nucleated Cells, Fluid 435 /CUMM 10/18/2024 8:24 PM [facility] RBC, Fluid 11,000 /CUMM 10/18/2024 8:24 PM [facility] Neutrophil, Body Fluid 3 % 10/18/2024 8:25 PM [facility] Lymphoctye, Body Fluid 27 % 10/18/2024 8:25 PM [facility] Monocyte, Body Fluid 21 % 10/18/2024 8:25 PM [facility] Histiocyte, Body Fluid 46 % 10/18/2024 8:25 PM [facility] Mesothelial, Body Fluid 3 % 10/18/2024 8:25 PM [facility] Smear Comment, Body Fluid The reference interval and other method performance specifications are unavailable for this body fluid. Comparison of the result with concentration in the blood, serum, or plasma is recommended 10/18/2024 8:25 PM [facility] 10/18/2024 5:50 PM EST 10/18/2024 6:49 PM EST Fuad Winter MD BODY FLUIDS A ND STOOLS ORDERABLES Performing Organization Address [facility] [place] [address], [place] [address] * Protein, Body Fluid (10/18/2024 5:50 PM EST) Only the most recent of2 resultswithin the time period is included. Source RIGHT PLEURAL EFFUSION 10/18/2024 6:49 PM [facility] Protein, Body Fluid 2.2 g/dL 10/18/2024 7:15 PM [facility] Comment:The reference interv al(s) and other method performance specifications are unavailable for this body fluid. Comparison of this result with the concentration in the blood, serum, or plasma is recommended. 10/18/2024 5:50 PM EST 10/18/2024 6:49 PM EST Fuad Winter MD LAB AMB FLUID /STOOL ORDERABLES Performing Organization Address [facility] [place] [address], [place] [address] * Glucose, Body Fluid (10/18/2024 5:50 PM EST) Only the most recent of2 resultswithin the time period is included. Source RIGHT PLEURAL EFFUSION 10/18/2024 6:49 PM EST [facility] Glucose, Body Fluid 151 mg/dL 10/18/2024 7:15 PM EST [facility] Comment:The reference interv al(s) and other method performance specifications are unavailable for this body fluid. Comparison of this result with the concentration in the blood, serum, or plasma is recommended. 10/18/2024 5:50 PM EST 10/18/2024 6:49 PM EST Fuad Winter MD LAB AMB FLUID /STOOL ORDERABLES Performing Organization Address [facility] [place] [address], [place] [address] * PH, BODY FLUID (10/18/2024 5:50 PM EST) Only the most recent of2 resultswithin the time period is included. Source RIGHT PLEURAL EFFUSION 10/18/2024 6:49 PM EST [facility] pH, Body Fluid 7.34 10/18/2024 7:14 PM [facility] 10/18/2024 5:50 PM EST 10/18/2024 6:49 PM EST Fuad Winter MD LAB AMB FLUID /STOOL ORDERABLES Performing Organization Address [facility] [place] [address], [place] [address] * LDH - Pleural Fluid (10/18/2024 5:39 PM EST) Source PLEURAL 10/18/2024 5:40 PM EST Lactate Dehydrogenase, Body Fluid 143 U/L 10/18/2024 7:27 PM EST [facility] Comment:The reference interv al(s) and other method performance specifications are unavailable for this body fluid. Comparison of this result with the concentration in the blood, serum, or plasma is recommended. Body Fluid Specimen from pleura obtained by thoracentesis / Unknown 10/18/2024 5:39 PM EST 10/18/2024 6:57 PM EST Pushpa Gallegos MD LAB AMB FLUID/STOOL ORDERABLES [address] [address], [facility] [address] [place] [address] * ECHOCARDIOGRAM COMPREHENSIVE WITH CONTRAST (10/18/2024 12:14 [...] system. ?Dr. Pushpa Gallegos was notified by [place] text at 12:36 PM. Technical Details Definity [...] - 36 seconds 10/18/2024 5:58 AM EST [facility] Blood Plasma specimen / Unknown 10/18/2024 5:16 AM EST 10/18/2024 5:42 AM EST Fuad Winter MD LAB BLOOD ORD ERABLES Performing Organization Address [facility] [place] [place] [address], [place] [address] * (ABNORMAL) Protime-INR (10/18/2024 5:16 AM EST) Anticoagulant IV HEPARIN, UNFRACTIONATED 10/18/2024 5:18 AM EST Prothrombin Time (PT) 13.9(H) 10.0 - 13.5 seconds 10/18/2024 5:58 AM EST [facility] INR 1.2 10/18/2024 5:58 AM EST [facility] Comment:INR Therapeutic Rang es: Standard dose anticoagulant 2.0 to 3.0, High dose anticoagulant 2.5-3.5. Blood Plasma specimen / Unknown 10/18/2024 5:16 AM EST 10/18/2024 5:42 AM EST Fuad Winter MD LAB BLOOD ORD ERABLES Performing Organization Address City/[facility]/ZIP [place] [address], [place] [address] * (ABNORMAL) Osmolality (10/18/2024 5:16 AM EST) Osmolality, Serum/Plasma 359(H) 285 - 295 mOsm/Kg 10/18/2024 6:43 AM EST [facility] Blood (Plasma/Serum) 10/18/2024 5:16 AM EST 10/18/2024 5:42 AM EST Fuad Winter MD LAB BLOOD ORD ERABLES [address] [address], [address] [address] from Last 3 Months Advance Directives * Full Code (Latest Code Status on File) Date Activated Date Inactivated Comments 10/18/2024 7:04 AM Care Teams Sheet Metal Contractor Relationship Specialty Start Date End Date Diaz Akers MD PCP - General Internal Medicine 10/20/24
--- OUTSIDE RECORDS SUMMARY | 2024-12-06 16:42 | XMS_ITS | Encounter Summary ---
Author Organization [facility] Address [address] [place] [address] Phone Care Team Providers Care Corporate Quality Manager Name Role Phone Unavailable Primary Care Provider Unavailabl e Encounter Details Date Type Department Care Team (Late st Contact Info) Description 08/16/2023 Office Communication [facility] [address] [facility] [address] [place] [address] Kang Britt MD [address] [facility] [address] [place] [address] Social History Tobacco Use Types [...]
--- OUTSIDE RECORDS SUMMARY | 2024-12-06 16:42 | XMS_ITS | Clinical Summary ---
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 Role Phone Unavailable Primary Care Provider [...] renal failure,Chronic kidney disease stage 4 (HCC) 33022 Units IJ Every 21 days 07/09/2021 Active epoetin kelley (EPOGEN,PROCRIT) injection 20,000 UnitsIndications:Anemia due to Renal Failure 42166 Units IV Every 14 days 08/16/2022 Active epoetin kelley (EPOGEN,PROCRIT) injection 10,000 UnitsIndications:Anemia due to Renal Failure 28845 Units IV Every 14 days 08/30/2022 Active epoetin kelley (EPOGEN,PROCRIT) injection 10,000 UnitsIndications:Anemia due to Renal Failure 01834 Units IV Every 14 days 09/27/2022 Active Epoetin Kelley-epbx solution 30,000 UnitsIndications:Anemia in chronic kidney disease,Chronic kidney disease stage 4 (HCC) 85268 Units IJ Once 12/13/2022 Ac tive Epoetin Kelley-epbx solution 20,000 UnitsIndications:Anemia in chronic kidney disease,Chronic kidney disease stage 4 (HCC) 94671 Units IJ Once 12/27/2022 Ac tive Active [...] * Hemoglobin A1c (11/13/2018 8:00 AM EST) [facility] Hemoglobin A1C 7.4 % COLBY Comment: [...] average glucose, using the formula of the L5H-Aaimrpp Average Glucose study (ADAG), Diabetes Care, Vol.31,#8, May. 2007 11/13/2018 8:00 AM EST us Kev Esteves MD LAB BLOOD ORDERABLES Final Result [place] from Last 3 Months or Most Recently Relevant to Health Maintenance [place] [address] [place] [address]
== END 2024-12-06 13:51 | disposition home or self-care (01) ==
PROVIDERS: PCP Internal Medicine; Visit Provider Internal Medicine Hypertension Specialist
DX: N18.5 Chronic kidney disease, stage 5 (principal); D63.1 Anemia in chronic kidney disease; I12.0 Hypertensive chronic kidney disease with stage 5 chronic kidney disease or end stage renal disease; E87.20 Acidosis, unspecified; E11.8 Type 2 diabetes mellitus with unspecified complications; E87.5 Hyperkalemia; E21.3 Hyperparathyroidism, unspecified
CPT/HCPCS: 99214

== ENCOUNTER 2024-12-07 12:46 | Outpatient (REF) | payer OTHER, SELFPAY ==
[2024-12-07 13:13] LABS: Hematocrit 33.3 % (42.0-52.0); Hemoglobin 10.3 g/dl (14.0-18.0); Mean Corpuscular HGB Conc 30.9 g/dl (31.0-36.0); Mean Corpuscular Hemoglobin 30.6 pg (27.0-33.0); Mean Corpuscular Volume 98.8 fL (80.0-98.0); Mean Platelet Volume 10.5 fL (9.4-12.4); Platelet Count 233 X10*3/uL (160-400); Red Blood Count 3.37 X10*6/uL (4.60-5.80); Red Cell Distribution Width 14.7 % (11.0-16.0); White Blood Count 5.9 X10*3/uL (4.8-10.8)
[2024-12-07 13:47] LABS: Alanine Aminotransferase 15 U/L (0-40); Albumin Level 4.4 g/dL (3.5-5.0); Alkaline Phosphatase 62 U/L (39-117); Anion Gap 14 (12-20); Aspartate Amino Transferase 19 U/L (5-37); Bilirubin Total 0.4 mg/dL (0.0-1.0); Blood Urea Nitrogen 78 mg/dL (9-16); Calcium 11.3 mg/dL (8.4-10.2); Carbon Dioxide 19 mmol/L (22-29); Chloride 113 mmol/L (96-108); Estimated Glomerular Filt Rate 11; Glucose Random 155 mg/dL (60-115); Parathyroid Hormone Intact 24.2 pg/mL (8.7-77.1); Phosphorus 4.4 mg/dL (2.7-4.5); Potassium 5.2 mmol/L (3.3-5.1); Sodium 141 mmol/L (135-145); Total Protein 7.9 g/dL (6.5-8.0)
--- OUTSIDE RECORDS SUMMARY | 2024-12-07 14:50 | XMS_ITS | Clinical Summary ---
Author Organization [facility] Address [address] [facility] [address] [place] [address] Phone Care Team Providers Care Coke Crusher Operator Name Role Phone Unavailable Primary Care Provider [...] renal failure,Chronic kidney disease stage 4 (HCC) 02184 Units IJ Every 21 days 07/09/2021 Active epoetin kelley (EPOGEN,PROCRIT) injection 20,000 UnitsIndications:Anemia due to Renal Failure 06877 Units IV Every 14 days 08/16/2022 Active epoetin kelley (EPOGEN,PROCRIT) injection 10,000 UnitsIndications:Anemia due to Renal Failure 55282 Units IV Every 14 days 08/30/2022 Active epoetin kelley (EPOGEN,PROCRIT) injection 10,000 UnitsIndications:Anemia due to Renal Failure 89723 Units IV Every 14 days 09/27/2022 Active Epoetin Kelley-epbx solution 30,000 UnitsIndications:Anemia in chronic kidney disease,Chronic kidney disease stage 4 (HCC) 03655 Units IJ Once 12/13/2022 Ac tive Epoetin Kelley-epbx solution 20,000 UnitsIndications:Anemia in chronic kidney disease,Chronic kidney disease stage 4 (HCC) 98125 Units IJ Once 12/27/2022 Ac tive Active [...] * Hemoglobin A1c (11/13/2018 8:00 AM EST) [facility] Hemoglobin A1C 7.4 % COLBY Comment: New [...] average glucose, using the formula of the C8Z-Vrwtrcd Average Glucose study (ADAG), Diabetes Care, Vol.31,#8, May. 2007 11/13/2018 8:00 AM EST us Kev Esteves MD LAB BLOOD ORDERABLES Final Result [place] from Last 3 Months or Most Recently Relevant to Health Maintenance Insurance [place] [address] [place] [address]
--- OUTSIDE RECORDS SUMMARY | 2024-12-07 14:50 | XMS_ITS | Encounter Summary ---
Author Organization [facility] Address [address] [place] [address] Phone Care Team Providers Care Ice Grinder Name Role Phone Unavailable Primary Care Provider Unavailabl e Encounter Details Date Type Department Care Team (Late st Contact Info) Description 08/16/2023 Office Communication [facility] [address] [facility] [address] [place] [address] Kang Britt MD [address] [facility] [address] [place] [address] Social History Tobacco Use Types [...]
--- OUTSIDE RECORDS SUMMARY | 2024-12-07 14:50 | XMS_ITS | Encounter Summary ---
Author Organization [facility] Address [address] [place] [address] Care Team Providers Care Student Activities Director Name Role Phone Diaz Akers MD Primary Care Provider Soledad vailable Encounter Details Date Type Department Care Team (Late st Contact Info) Description 10/19/2024 Scanned Document CARDIOLOGY [address] [place] [id number] Sejal Blair [address] [address] Social History Tobacco Use Types Packs/Day Years Used Date Smoking Tobacco: Never Assessed [facility] Utilities Answer Date Recorded In the past 12 months has [employer] electric, gas, oil, or water company threatened [...] any time in the past 12 m [facility], were you homeless or living in a intermediate (including now)? No 10/20/2024 Sex and Gender [...] documented as of this encounter Care Teams Student Activities Director Relationship Specialty Start Date End Date Diaz Akers MD PCP - General Internal Medicine 10/20/24 documented as of this encounter
--- OUTSIDE RECORDS SUMMARY | 2024-12-07 14:50 | XMS_ITS | Clinical Summary ---
Author Organization [facility] Address [address] [place] [address] Care Team Providers Care Marble Finisher Name Role Phone Diaz Akers MD Primary [...] EST - 10/31/2024 6:26 PM EST Surgery [facility] [place] [facility] - Cardiac Catheterization Laboratory [address] [facility] [place] [address] Calixto Ureña MD CORONARY ANGIO W/LV 10/19/2024 Scanned Document CARDIOLOGY IP [address] [facility] [place] [id number] Sejal Blair 10/18/2024 5:10 AM EST - 11/01/2024 4:42 PM EST Hospital Encounter [facility] 10 [address] [facility] [place] [address] WinterFuad MD Perkins, Michael E, MD [...] Tobacco: Never Tobacco Cessation:Counseling Given: Not Answered [facility] Utilities Answer Date Recorded In the past 12 months has [employer], gas, oil, or water Shots threatened to shut off services in your [...] any time in the past 12 m [facility], were you homeless or living in [...] of109 resultswithin the time period is included. [facility] POC Glucose 189(H) 65 - 99 mg/dL 11/01/2024 12:05 PM EST Blood specimen / Unknown 11/01/2024 12:04 PM EST 11/01/2024 12:05 PM EST Fuad Winter MD POINT OF CARE TEST ORDERABLES HOSPITAL LAB See Below * (ABNORMAL) COMPLETE BLOOD COUNT, WITHOUT DIFFERENTIAL (11/01/2024 6:20 AM EST) Only the most recent of13 resultswithin the time period is included. [facility] White Blood Cell Count 9.1 4.0 - 11.0 Thou/uL 11/01/2024 7:10 AM EST [facility] Platelet Count 261 150 - 450 Thou/uL 11/01/2024 7:10 AM EST [facility] Hemoglobin 9.2(L) 13.0 - 17.7 g/dL [...] EST 11/01/2024 6:57 AM EST Jonna L [employer] PA-C LAB BLOOD ORDERABL ES Performing Organization Address City/[facility] [place] [address], [place] [address] * (ABNORMAL) Phosphorus (Early AM) (11/01/2024 6:20 AM EST) Only the most recent of15 resultswithin the time period is included. Phosphorus 4.7(H) 2.7 - 4.5 mg/dL 11/01/2024 7:58 AM [facility] Blood (Plasma/Serum) 11/01/2024 6:20 AM EST 11/01/2024 6:57 AM EST Jonna [employer] PA-C LAB BLOOD ORDERABL ES Performing Organization Address City/[facility]/[place] [address], [place] [address] * MAGNESIUM (11/01/2024 6:20 AM EST) Only the most recent of17 resultswithin the time period is included. Magnesium 1.6 1.6 - 2.7 mg/dL 11/01/2024 7:58 AM [facility] Blood (Plasma/Serum) 11/01/2024 6:20 AM EST 11/01/2024 6:57 AM EST Jonna Donis PA-C LAB BLOOD ORDERABL ES [facility] [address] [place] [address], [facility] [address] [place] [address] * (ABNORMAL) BASIC METABOLIC PANEL (11/01/2024 6:20 [...] 22 - 33 mmol/L 11/01/2024 7:58 AM [facility] Anion Gap 14 7 - 17 11/01/2024 7:58 AM [facility] Calcium 9.3 8.7 - 10.5 mg/dL 11/01/2024 7:58 AM EST [facility] BUN/Creatinine Ratio 9(L) 10.0 - 25.0 Ratio 11/01/2024 7:58 AM EST [facility] Blood (Plasma/Serum) 11/01/2024 6:20 AM EST 11/01/2024 6:57 AM EST Jonna Donis PA-C [place] [address], [place] [address] * CC CORONARY ANGIO W/LV (10/31/2024 6:34 PM EST) Anatomical Region Laterality Modality Radiographic Keily ging Narrative 10/31/2024 6:57 PM EST Table formatting from the original result was not included. Images from the original result were not included. [facility] [place] [facility] - Cardiac Catheterization Laboratory PATIENT DEMOGRAPHIC INFORMATION Name: Jorge Baum Edgarozziekirk : 1945 79 y.o. 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 Calixto Ureña MD [facility] [place] 10/31/2024 ??6:57 PM Coronary Findings Diagnostic Dominance: [...] MD LAB BLOOD ORDERABLES Performing Organization Address [facility] [place] [address], [place] [address] * (ABNORMAL) High Sensitivity Troponin T (10/31/2024 [...] MD LAB BLOOD ORDERABLES Performing Organization Address [facility] [place] [address], [place] [address] * TSH, HIGHLY SENSITIVE (10/31/2024 7:16 AM EST) TSH, Highly Sensitive 2.06 0.27 - 4.20 mIU/L 10/31/2024 9:15 AM EST [facility] Plasma/Serum 10/31/2024 7:16 AM EST 10/31/2024 7:47 AM EST Madhav Ryan MD LAB BLOOD ORDERABLES Performing Organization Address [facility] [place] [address], [place] [address] * (ABNORMAL) proBNP, N-terminal (10/29/2024 7:20 AM EST) Only the most recent of2 resultswithin the time period is included. proBNP, N-terminal 47,866(H) <450 pg/mL 10/29/2024 12:12 PM EST [facility] Plasma specimen / Unknown 10/29/2024 7:20 AM EST 10/29/2024 8:04 AM EST Madhav Ryan MD [place] [address], [place] [address] * ECG 12 lead (STAT) (10/27/2024 7:41 AM EST) Only the most recent of6 resultswithin the time period is included. Ventricular rate 60 BPM EKG [facility] Atrial rate 60 BPM EKG [facility] P-R interval 150 ms EKG [facility] QRS duration 84 ms EKG [facility] Q-T interval 488 ms EKG [facility] QTC calculation (Bazett) 488 ms EKG [facility] P axis 45 degrees EKG [facility] R axis 13 degrees EKG [facility] T axis 199 degrees EKG [facility] 10/27/2024 7:41 AM EST Narrative EKG [facility] [...] - 204 U/L 10/25/2024 10:25 AM EST [facility] Plasma/Serum 10/25/2024 8:27 AM EST 10/25/2024 9:16 AM EST Jorge Mcfarland MD LAB BLOOD ORDERAB LES Performing Organization Address [facility] [place] [address], [place] [address] * (ABNORMAL) B-Hydroxybutyrate (10/24/2024 7:11 AM EST) Only the most recent of4 resultswithin the time period is included. B-Hydroxybutyrate 2.36(H) <0.28 mmol/L 10/24/2024 10:30 AM EST [facility] Comment: In the presence of uncontrolled [...] MD LAB BLOOD ORDERABLES Performing Organization Address [facility] [place] [address], [place] [address] * (ABNORMAL) PTH, Intact (10/23/2024 10:31 AM EST) PTH, Intact 579(H) 15 - 65 pg/mL 10/23/2024 12:23 PM EST [facility] Blood (Plasma/Serum) 10/23/2024 10:31 AM EST 10/23/2024 11:36 AM EST Jorge Mcfarland MD LAB BLOOD ORDERAB LES Performing Organization Address City/[facility] [place] [address], [place] [address] * (ABNORMAL) Calcium, Ionized (10/23/2024 10:31 AM EST) Calcium, Ionized 0.88(L) 1.17 - 1.33 mmol/L 10/23/2024 12:16 PM [facility] Blood Blood specimen / Unknown 10/23/2024 10:31 AM EST 10/23/2024 11:36 AM EST Jorge Mcfarland MD LAB BLOOD ORDERAB LES [facility] [address] [place] [address], [address] [address] * (ABNORMAL) Calcium, Total (10/23/2024 10:31 AM EST) Calcium 7.4(L) 8.7 - 10.5 mg/dL 10/23/2024 12:13 PM [facility] Blood (Plasma/Serum) 10/23/2024 10:31 AM EST 10/23/2024 11:36 AM EST Jorge Mcfarland MD LAB BLOOD ORDERAB LES Performing Organization Address City/[facility]/ZIP Co de Phone Number [facility] [address] [place] [address], [facility] [address] [place] [address] * Albumin (10/23/2024 10:31 AM EST) Albumin 3.5 3.4 - 4.8 g/dL 10/23/2024 12:13 PM [facility] Blood (Plasma/Serum) 10/23/2024 10:31 AM EST 10/23/2024 11:36 AM EST Jorge Mcfarland MD LAB BLOOD ORDERAB LES [facility] [address] [place] [address], [address] [address] * (ABNORMAL) LIPID PANEL (10/23/2024 6:05 AM [...] MD LAB BLOOD ORDERABLES Performing Organization Address [facility]/State/[place] [address], [place] [address] * (ABNORMAL) Blood Gas, Venous (10/20/2024 10:39 [...] LAB BLOOD ORDERAB LES Performing Organization Address City/[facility]/[place] [address], [place] [address] * Lactic Acid, Plasma (STAT) (10/20/2024 10:00 AM EST) Only the most recent of2 resultswithin the time period is included. Lactic Acid 0.8 0.5 - 1.9 mmol/L 10/20/2024 10:37 AM [facility] Blood Plasma specimen / Unknown 10/20/2024 10:00 AM EST 10/20/2024 10:07 AM EST Kristopher Hickey MD LAB BLOOD ORDERAB LES Performing Organization Address City/[facility]/[place] [address], [place] [address] * (ABNORMAL) Complete Blood Count, with Differential (10/19/2024 11:59 PM EST) Only the most recent of2 resultswithin the time period is included. White Blood Cell Count 11.5(H) 4.0 - 11.0 Thou/uL 10/20/2024 12:32 [facility] Platelet Count 271 150 - 450 Thou/uL 10/20/2024 12:32 [facility] Hemoglobin 8.9(L) 13.0 - 17.7 g/dL 10/20/2024 12:32 AM [facility] Hematocrit 28.6(L) 39.0 - 54.0 % 10/20/2024 12:32 [facility] Red Blood Cell Count 2.93(L) 4.50 - 6.20 Mil/uL 10/20/2024 12:32 [facility] MCV 98 80 - 100 fL 10/20/2024 12:32 AM [facility] MCH 30.4 27.0 - 31.0 pg 10/20/2024 12:32 AM [facility] MCHC 31.1 30.0 - 36.0 g/dL 10/20/2024 12:32 AM [facility] RDW 16.5(H) 11.5 - 14.5 % 10/20/2024 12:32 [facility] MPV 11.3 7.5 - 12.5 fL 10/20/2024 12:32 AM [facility] Neutrophils Auto 80.7 % 10/20/19 25 12:32 AM [facility] Immature Granulocytes 0.6 % 10/20/2024 12:32 AM [facility] Lymphocytes Auto 11.6 % 10/20/19 25 12:32 AM [facility] Monocytes Auto 6.7 % 10/20/2024 12:32 [facility] Eosinophils Auto 0.2 % 10/20/19 25 12:32 [facility] Basophils Auto 0.2 % 10/20/2024 12:32 [facility] Abs Neutrophils Auto 9.25(H) 2.00 - 7.50 Thou/uL 10/20/2024 12:32 [facility] Abs Immature Granulocytes 0.07 0.00 - 0.10 [...] Fuad Winter MD [place] [address], [place] [address] * (ABNORMAL) Hemoglobin and Hematocrit (10/19/2024 2:25 PM EST) Hematocrit 32.3(L) 39.0 - 54.0 % 10/19/2024 3:39 PM [facility] Hemoglobin 9.9(L) 13.0 - 17.7 g/dL 10/19/2024 3:39 PM [facility] Blood Blood specimen / Unknown 10/19/2024 2:25 PM EST 10/19/2024 3:31 PM EST Kristopher Hickey MD [place] [address], [place] [address] * (ABNORMAL) Hemoglobin A1C with Estimated Average Glucose (10/19/2024 1:20 AM EST) Hemoglobin A1C 8.7(H) <5.7 % 10/19/2024 12:02 PM [facility] Comment: A1c% ? Interpretation 5.7 - 6.0 ?Increase risk of diabetes 6.1 - 6.4 ?Higher risk of diabetes > or = 6.5 ?? Consistent with diabetes Diabetes Care, 33(Supp 1):S1-S61, 2010 Estimated Average Glucose 203 mg/dL 10/19/2024 12:02 PM EST [facility] Blood specimen / Unknown 10/19/2024 1:20 AM EST 10/19/2024 2:17 AM EST Pushpa Gallegos MD LAB BLOOD ORDERABLES [address] [address], [address] [address] * US Guided Bedside Thoracentesis-Bilateral (10/18/2024 6:10 [...] Sample left with bedside RN. ACCESS: 6 Spanish Pzld-B-Svtkyhib closed needle/catheter system ?? REQUESTING PRACTITIONER: Cheryl [...] adjacent organs or vascular structures. A 6 Spanish Sofr-X-Qbmcwihg closed needle/catheter system was utilized for access. [...] adjacent organs or vascular structures. A 6 Spanish Dwpt-Q-Ludtcpbt closed needle/catheter system was utilized for access. 550 mL of clear devorah fluid was aspirated before drainage ceased. The catheter was removed and a sterile dressing applied. The patient tolerated the procedure well without evidence of complications. ?? Pushpa Gallegos MD [facility] [place] ORDERABLES * Body Fluid Culture (aerobic, anaerobic and Gram stain) (10/18/2024 5:55 PM EST) Only the most recent of2 resultswithin the time period is included. Gram stain suggestive of Few neutrophils Mononuclear cells No organisms seen 10/18/2024 9:52 PM EST [facility] Culture No aerobes and anaerobes isolated after 7 days 10/25/2024 3:19 PM EST [facility] 10/18/2024 5:55 PM EST 10/18/2024 7:53 PM EST Fuad Winter MD LAB AMB MICRO ORDERABLES [facility] [address] [place] [address], [address] [address] * Mycobacteria Culture (includes acid fast smear) (10/18/2024 5:55 PM EST) Acid Fast Smear No acid fast bacilli seen 10/19/2024 12:03 PM EST [facility] Culture No acid fast bacilli isolated. 11/30/2024 3:29 PM EST [facility] 10/18/2024 5:55 PM EST 10/18/2024 7:55 PM EST Fuad Winter MD LAB AMB MICRO ORDERABLES Performing Organization Address City/[facility]/ZIP Co de Phone Number [facility] [address] [place] [address], * Fungal Culture, Other Than Blood (10/18/2024 5:55 PM EST) Culture No fungus isolated 11/02/2024 8:34 AM [facility] 10/18/2024 5:55 PM EST 10/18/2024 7:54 PM EST Fuad Winter MD LAB AMB MICRO ORDERABLES Performing Organization Address City/[facility]/ZIP Co de Phone Number [facility] [address] [place] [address], * Cell Count, Reflex Differential, Body Fluid (10/18/2024 5:50 PM EST) Only the most recent of2 resultswithin the time period is included. Appearance, Body Fluid Cloudy 10/18/2024 8:25 PM EST [facility] Color [place] 10/18/2024 8:25 PM [facility] Nucleated Cells, [...] or plasma is recommended 10/18/2024 8:25 PM [facility] 10/18/2024 5:50 PM EST 10/18/2024 6:49 PM EST Fuad Winter MD BODY FLUIDS A ND STOOLS ORDERABLES Performing Organization Address [facility] [place] [address], [place] [address] * Protein, Body Fluid (10/18/2024 5:50 PM EST) Only the most recent of2 resultswithin the time period is included. Source RIGHT PLEURAL EFFUSION 10/18/2024 6:49 PM [facility] Protein, Body Fluid 2.2 g/dL 10/18/2024 7:15 PM [facility] Comment:The reference interv al(s) and other method performance specifications are unavailable for this body fluid. Comparison of this result with the concentration in the blood, serum, or plasma is recommended. 10/18/2024 5:50 PM EST 10/18/2024 6:49 PM EST Fuad Winter MD LAB AMB FLUID /STOOL ORDERABLES Performing Organization Address [facility] [place] [address], [place] [address] * Glucose, Body Fluid (10/18/2024 5:50 PM [...] AMB FLUID /STOOL ORDERABLES Performing Organization Address [facility] [place] [address], [place] [address] * PH, BODY FLUID (10/18/2024 5:50 PM EST) Only the most recent of2 resultswithin the time period is included. Source RIGHT PLEURAL EFFUSION 10/18/2024 6:49 PM EST [facility] pH, Body Fluid 7.34 10/18/2024 7:14 PM [facility] 10/18/2024 5:50 PM EST 10/18/2024 6:49 PM EST Fuad Winter MD LAB AMB FLUID /STOOL ORDERABLES Performing Organization Address [facility] [place] [address], [place] [address] * LDH - Pleural Fluid (10/18/2024 5:39 [...] Pushpa Gallegos MD LAB AMB FLUID/STOOL ORDERABLES [address] [address], [facility] [address] [place] [address] * ECHOCARDIOGRAM COMPREHENSIVE WITH CONTRAST (10/18/2024 12:14 [...] system. ?Dr. Pushpa Gallegos was notified by [place] text at 12:36 PM. Technical Details Definity [...] LAB BLOOD ORD ERABLES Performing Organization Address [facility] [place] [address], [place] [address] * (ABNORMAL) Protime-INR (10/18/2024 5:16 AM EST) [...] LAB BLOOD ORD ERABLES Performing Organization Address City/[facility]/[place] [address], [place] [address] * (ABNORMAL) Osmolality (10/18/2024 5:16 AM EST) Osmolality, Serum/Plasma 359(H) 285 - 295 mOsm/Kg 10/18/2024 6:43 AM EST [facility] Blood (Plasma/Serum) 10/18/2024 5:16 AM EST 10/18/2024 5:42 AM EST Fuad Winter MD LAB BLOOD ORD ERABLES [address] [address], [address] [address] from Last 3 Months Advance Directives * Full Code (Latest Code Status on File) Date Activated Date Inactivated Comments 10/18/2024 7:04 AM Care Teams Marble Finisher Relationship Specialty Start Date End Date Diaz Akers MD PCP - General Internal Medicine 10/20/24
== END 2024-12-07 12:47 | disposition home or self-care (01) ==
LOC: HO.10HDL 12:46
PROVIDERS: Visit Provider Internal Medicine Hypertension Specialist
DX: I25.5 Ischemic cardiomyopathy (principal); I50.42 Chronic combined systolic (congestive) and diastolic (congestive) heart failure; E21.3 Hyperparathyroidism, unspecified; E11.22 Type 2 diabetes mellitus with diabetic chronic kidney disease; N18.5 Chronic kidney disease, stage 5; D63.1 Anemia in chronic kidney disease; E11.8 Type 2 diabetes mellitus with unspecified complications; C61 Malignant neoplasm of prostate; E87.5 Hyperkalemia; Z79.4 Long term (current) use of insulin; Z79.899 Other long term (current) drug therapy
CPT/HCPCS: 36415; 80053; 83970; 84100; 85027; 96127

== ENCOUNTER 2024-12-07 12:55 | Outpatient (AMB) | payer OTHER, SELFPAY ==
[2024-12-07 12:57] VITALS: BP 122/64; PULSE 72; O2SAT 98; BMI 22.3
--- NOTE | 2024-12-07 12:57 | A.OFFPC_ITS ---
Vital Signs 12/07/24 12:57 Height 5 ft 7 in Weight 142 lb 2 oz BMI 22.3 BP 122/64 Blood Pressure Location Lt brachial Position Sitting Pulse 72 Pulse Source Pulse Oximeter Pulse Oximetry (%) 98 Oxygen Delivery Method Room Air Intake Visit Reasons: 1mth f/u Tourist Guide Required: No Accompanied by: Self / Same As Patient Allergies No Known Allergies [No Known Allergies*] Allergy (Verified 12/07/24 13:57) Medication List - Last Reconciled 12/07/24 by Zaida Adler PA-C aspirin 81 mg PO DAILY atorvastatin 80 mg PO DAILY blood sugar diagnostic (BioVig[employer] SystemsStyle Test strips) As directed twice a day blood-glucose meter As directed calcitriol 0.5 mcg PO DAILY calcium carbonate 500 mg PO DAILY flash glucose scanning reader (BioVigilant SystemsStyle Wale 2 Huntley) As directed flash glucose sensor (FreeStyle Wale 2 Sensor kit) As directed hydralazine 25 mg PO 3XD 90 days hydroxyzine HCl 25 mg PO Q8H insulin glargine (Lantus Solostar U-100 Insulin) 8 units (0.08 mL) subcut QPM 90 days insulin lispro (Humalog KwikPen (U-100) Insulin) 4 units subcut TID isosorbide dinitrate 10 mg PO 3XD 90 days lancets As directed levothyroxine (Synthroid) 25 mcg PO DAILY linagliptin (Tradjenta) 5 mg PO DAILY metoprolol succinate ER 75 mg PO DAILY pen needle, diabetic As directed 1x daily terazosin 5 mg PO BEDTIME 90 days trazodone 50 mg PO BEDTIME Tobacco use date assessed: 12/07/24 Fall risk assessment: No Falls in past year Last assessed Fall Risk: 12/07/24 Dental Screening Dental Screen Date: 12/07/24 Did you have a dental visit in the last 12 months?: No Did you have a dental problem in the last 6 months where you did not have access to dental care?: No Was dental information given to patient?: No PFSH Medical History Heart attack Atherosclerotic cardiovascular disease CKD (chronic kidney disease) stage 5, GFR less than 15 ml/min Other and unspecified hyperlipidemia Essential hypertension Edema of both feet Prostate cancer Gout Hyperlipidemia Diabetes Surgical History History of hernia surgery Family History Mother No problems noted. Father No problems noted. Social History Housing: House Alcohol intake: never Patient Tobacco Use Status: Never used Tobacco e-Cigarette/Vaping Use: Never Used Second Hand Smoke Exposure: No service: No Current occupational status: retired Current occupation: rt handed Cognitive needs: No Hearing needs: No Vision needs: Yes (Glasses) Questionnaire PHQ-9 Over the last 2 weeks, how often have you been bothered by any of the following problems? 1. Little interest or pleasure in doing things: not at all 2. Feeling down, depressed, or hopeless: not at all 3. Trouble falling or staying asleep, or sleeping too much: not at all 4. Feeling tired or having little energy: not at all 5. Poor appetite or overeating: not at all 6. Feeling bad about yourself - or that you are a failure or have let yourself or your family down: not at all 7. Trouble concentrating on things, such as reading the newspaper or watching television: not at all 8. Moving or speaking so slowly that other people could have noticed. Or the opposite - being so fidgety or restless that you have been moving around a lot more than usual: not at all 9. Thoughts that you would be better off or of hurting yourself in some way: not at all Total score: 0 Depression Screening Interpretation: Negative Depression Screening Done: Yes 11036 - PHQ-9 Billing: Yes Source: Developed by Drs. Jorge Correa, Dominique Johnson, Andre Torres and colleagues, with an educational john from [employer]. Thrive Questionnaire Date Thrive assessed: 12/07/24 I am a: Patient What is your living situation today?: I have a steady place to live Within the past 12 months, did the food you bought not last and you didn't have the money to get more?: Never true Within the past 12 months, did you worry whether your food would run out before you got money to buy more?: Never true Do you have trouble paying for medicines?: No Do you have trouble getting transportation to medical appointments?: No Do you have trouble paying your heating and electricity bill?: No Do you have trouble taking care of your child, family member or friend?: No Do you have trouble with day-to-day activities such as bathing, preparing meals, shopping, managing finances, etc.?: No Are you currently unemployed and looking for a job?: No Are you interested in more education?: No Please select the resources that you would like help with: None Currently or been in a relationship where the following occur: No concerns reported THRIVE Score: 0 AUDIT C Alcohol Use Questionnaire (AUDIT-C) 1. How often do you have a drink containing alcohol?: Never 3. How often do you have six or more drinks on one occasion?: Never Total Score: 0 Score Reviewed/Action Taken: Yes ALISA-7 AMB Questionnaire ALISA-7 Date ALISA - 7 assessed: 12/07/24 Feeling nervous, anxious, or on edge: 0 = Not at all Not being able to stop or control worryin = Not at all Worrying too much about different things: 0 = Not at all Trouble relaxin = Not at all Being so restless that it is hard to sit still: 0 = Not at all Becoming easily annoyed or irritable: 0 = Not at all Feeling afraid as if something awful might happen: 0 = Not at all Total ALISA-7 score (0-4 normal; 5-9 mild; 10-14 moderate; 15-21 severe): 0 Source: Developed by Drs. Jorge Correa, Dominique Johnson, Andre Torres and colleagues, with an educational john from [employer]. ALISA-7 Assessment Billing ALISA-7 Assessment Tool: ALISA-7 Assessment 18854 Physical exam (Primary Care) Vital Signs: Last Vital Signs Pulse 72 12/07/24 12:57 BP 122/64 12/07/24 12:57 Pulse Ox 98 12/07/24 12:57 Oxygen Delivery Method Room Air 12/07/24 12:57 Care Plan Goal for BP management: <130/80 at Goal BMI result Body Mass Index 22.3 Tobacco/Smoking Status: Tobacco use Status Tobacco use date assessed 12/07/24 12/07/24 13:04 Patient Tobacco Use Status Never used Tobacco 12/07/24 13:04 e-Cigarette/Vaping Use Never Used 12/07/24 13:04 normal bmi PHQ-9: PHQ-9 Score PHQ-9: Total score 0 12/07/24 13:04 Depression Screening Interpretation: Negative Thrive Assessment: Date of Thrive Assessment Date Thrive assessed 12/07/24 12/07/24 13:04 Currently or been in a relationship where the following occur: No concerns reported Coding Level of Care Code Est Pt Level 4 (83733) Complex EM visit Add On G2211 Diagnoses Ischemic cardiomyopathy I25.5 Chronic combined systolic and diastolic CHF (congestive heart failure) I50.42 Hyperparathyroidism E21.3 CKD (chronic kidney disease) stage 5, GFR less than 15 ml/min N18.5 Type 2 diabetes mellitus with unspecified complications E11.8 Prostate cancer C61 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 Chang and has follow-up. They are discussing possibly placement of ICD after a repeat echocardiogram. Prior echocardiogram revealed an EF of 20-25%. Patient to continue hydralazine 25 mg 3 times a day, Iodosorb 10 mg 3 times a day, metoprolol extended release 75 mg daily. Condition is chronic and stable continue to monitor. (2) Chronic combined systolic and diastolic CHF (congestive heart failure): Code(s): I50.42 - Chronic combined systolic (congestive) and diastolic (congestive) heart failure Category: Medical Plan: Patient being followed by Dr. Chang. Has follow-up appointment on 01/14/2025. Condition is chronic and stable will continue to monitor. (3) Hyperparathyroidism: Code(s): E21.3 - Hyperparathyroidism, unspecified Category: Medical Plan: Patient with a history of hyperparathyroidism. Had labs obtained today and PTH level is now 24.2 and normal at this time. Condition is chronic and stable continue to monitor. (4) CKD (chronic kidney disease) stage 5, GFR less than 15 ml/min: Code(s): N18.5 - Chronic kidney disease, stage 5 Category: Medical Plan: Patient is being followed by Dr. Barros. BUN and creatinine at 78/4.99 today. Has follow-up on 12/27/2024. Currently receiving Retacrit subcutaneous injections. Currently not on dialysis at this time. Condition is chronic and stable continue to monitor. (5) Type 2 diabetes mellitus with unspecified complications: Code(s): E11.8 - Type 2 diabetes mellitus with unspecified complications Category: Medical Plan: A1c level goal less than 7.0. Today it is 5.8. At goal. Will continue current regimen that patient is currently on which includes Lantus insulin 8 units at bedtime, lispro 4 units 3 times a day. Condition is chronic and stable continue to monitor. (6) Prostate cancer: Comment: Long-term GnRH therapy Code(s): C61 - Malignant neoplasm of prostate Category: Medical Plan: Condition is chronic and stable continue to monitor. (7) Anemia due to chronic kidney disease: Code(s): N18.9 - Chronic kidney disease, unspecified; D63.1 - Anemia in chronic kidney disease Category: Medical Qualifiers: Chronic kidney disease stage: stage 5, not on chronic dialysis Qualified Code(s): N18.5 - Chronic kidney disease, stage 5; D63.1 - Anemia in chronic kidney disease Plan: Patient is being followed by Dr. Barros. Has follow-up on 12/27/2024. Currently receiving Retacrit subcutaneous injections. Currently not on dialysis at this time. Condition is chronic and stable continue to monitor. (8) Hyperkalemia: Code(s): E87.5 - Hyperkalemia Category: Medical Plan: Patient is being followed by Dr. Barros. Has follow-up on 12/27/2024. Currently receiving Retacrit subcutaneous injections. Currently not on dialysis at this time. Currently receiving Kayexalate orally daily. Repeat potassium today was 5.2. Condition is chronic and stable continue to monitor. Plan Plan The treatment plan included close monitoring of chronic kidney disease and potential planning for dialysis as required, with scheduled assessments for kidney function being followed by Dr. Barros from Nephrology. The heart failure condition may necessitate the placement of an ICD after reviewing future echocardiogram results being followed by Cardiology. Adjustments in medications for electrolyte balance and antihypertensive effects will continue, maintaining a low-salt and potassium diet. The diabetic control is targeted to maintain A1c levels under management with dietary advice. For the insomnia reported, a trial prescription of trazodone has been provided. Confirmed follow-ups with cardiology and nephrology will facilitate ongoing management and necessary adaptations in therapy as informed by upcoming evaluations. For the intermittent itchiness to the patient's body will prescribe Atarax 50 mg p.r.n. as needed. Medications: New trazodone 50 mg PO BEDTIME 90 tabs 1RF hydroxyzine HCl 25 mg PO Q8H 90 tabs 1RF Changed From hydralazine 25 mg PO 3XD 90 tabs 0RF To hydralazine 25 mg PO 3XD 90 days 270 tabs 1RF From isosorbide dinitrate 10 mg PO 3XD 90 tabs 0RF To isosorbide dinitrate 10 mg PO 3XD 90 days 270 tabs 1RF Patient Instructions: Patient Instructions - Continue with a low-sodium and low-potassium diet. - Monitor blood glucose levels multiple times a day at home. - Take all prescribed medications as directed and report any side effects. - Follow up with nephrology on December 27 and cardiology appointments as scheduled. - Get blood work done for follow-up lab work as needed. - Adhere to trazodone for insomnia as prescribed. - Atarax as needed for itching - Call the office for any significant changes in health status or concerns. - Attend all scheduled appointments for continuous assessment and management. Scribe Plan - Not visible on output: History of Present Illness The patient is an 79-year-old male presenting with a need for follow-up after a complex 14-day hospital course due to chronic kidney disease, heart failure, diabetes, and complications arising from COVID-19 pneumonia. He has chronic kidney disease stage 5 and has been managing related anemia with ongoing treatment with Retrocrit. A substantial decline in heart function has been confirmed by an echocardiogram, with specific recommendations for monitoring and potential ICD placement based on persistent ejection fraction status. Diabetes management involves careful monitoring with an aim to improve A1c levels, and the patient's hypertension and hyperkalemia are being managed through medication adjustments and dietary measures. The patient reports ongoing insomnia and concern regarding the impact of multiple medications on his sleep patterns. Social History - Lives with his son. - Past loss of influencing current social circumstances. - Engages in daily walking when the weather permits but limited by weather conditions. - Maintains dietary restrictions relevant to diabetes and kidney disease. Review of Systems - Cardiovascular: Reports no chest pain but monitoring by cardiology is ongoing. - Respiratory: Previous pneumonia and COVID-19; currently no shortness of breath. - Gastrointestinal: Reports normal bowel movements without blood. - Genitourinary: No changes in urination patterns. - Neurological: Reports itching reduced recently. - Musculoskeletal: Increasing strength post-hospitalization. - General: Reports insomnia, nocturnal waking, and occasional itching. Physical Exam Appearance: Alert. Oriented X3. No acute distress. Head: Normal external exam. Normocephalic. Atraumatic. Eyes: Pupils are equal, round, and reactive to light. Extraocular movements intact. Conjunctiva and sclera normal. Eyelids normal. Ears: External auditory canal normal. Tympanic membranes normal. Throat: Pharynx normal. Uvula midline. Moist mucous membranes. Neck: Normal inspection. Neck supple. Full range of motion. No adenopathy. Thyroid Normal. No meningeal signs. No neck mass noted. Cardiovascular: Normal heart rate and rhythm. Heart sound normal. No murmurs noted. Pulses normal throughout. Echocardiogram showed LVEF of 20 to 25% with wall motion abnormality. Respiratory: No respiratory distress. Painless inspiration. Breath sounds normal. No wheezes/rales/rhonchi noted. Chest nontender. No accessory muscle usage noted or decreased air movement noted. Abdomen: Soft and nontender. Bowel sounds normal in all 4 quadrants. No distention noted. No organomegaly noted. No visible injury noted. Back: No costovertebral angle tenderness. Full range of motion noted. Skin: Skin warm and dry. Normal skin color. Normal skin turgor. No rashes/lesions/lacerations noted. Itching reported, medication prescribed. Extremities: No lower extremity edema. Extremities exhibit normal range of motion. Extremities nontender. Neuro: Oriented X 3. No motor deficit. No sensory deficit. Reflexes normal. Results - Labs: Recent A1c at 5.8%, indicating current control of diabetes. - Echocardiogram: LVEF 20 to 25% with wall motion abnormality evident. - Kidney function and potassium levels to be reassessed in future blood work. Patient was informed and verbally consented to the use of an ambient scribe for clinic note documentation during this visit. Discussion Notes I discussed the complexity of the patient's current health status with multiple ongoing conditions. I explained the importance of continuous monitoring of kidney function, with dialysis being a potential future need should stability not be maintained. I addressed the potential ICD placement following cardiology evaluation based on heart failure status and reassured the patient regarding the straightforward nature of such procedures, including monitoring benefits and risk of invasive infection. For diabetes management, I reinforced the need for strict dietary adherence and the reasons behind current medication restrictions. Insomnia concerns were discussed and trazodone provided as a trial to assess effectiveness. The patient was informed of the importance of accurate monitoring of blood glucose levels at home, maintaining diet changes, and upcoming appointments to review the progress of their conditions.
== END 2024-12-07 13:53 | disposition home or self-care (01) ==
PROVIDERS: PCP Internal Medicine; Visit Provider Physician Assistant Medical
DX: I50.42 Chronic combined systolic (congestive) and diastolic (congestive) heart failure (principal); E21.3 Hyperparathyroidism, unspecified; N18.5 Chronic kidney disease, stage 5; E11.8 Type 2 diabetes mellitus with unspecified complications; C61 Malignant neoplasm of prostate; I25.5 Ischemic cardiomyopathy; D63.1 Anemia in chronic kidney disease; E87.5 Hyperkalemia

== ENCOUNTER 2024-12-20 18:29 | Emergency (ER) | payer OTHER, SELFPAY ==
--- NOTE | ~2024-12-20 | XR_ITS ---
CLINICAL HISTORY: cough 1 view chest x-ray Comparison: CR - XR CHEST 1V - 10/18/24 02:33 EST Findings: Borderline cardiomegaly. Tiny bilateral pleural effusions. Diffuse interstitial and mild alveolar pulmonary edema. No consolidation. No pneumothorax. IMPRESSION: 1. Borderline cardiomegaly with moderate CHF findings. This document has been electronically signed by: Madhav Slater MD on 12/20/2024 19:51:00
--- NOTE | 2024-12-20 18:33 | ECG_ITS ---
Test Reason : CHEST PAIN Blood Pressure : */* mmHG Vent. Rate : 77 BPM Atrial Rate : 77 BPM P-R Int : 138 ms QRS Dur : 98 ms QT Int : 374 ms P-R-T Axes : 16 56 81 degrees QTcB Int : 423 ms Sinus rhythm with Premature supraventricular complexes Cannot rule out Anterior infarct (cited on or before 21-Feb-2024) Abnormal ECG When compared with ECG of 18-Oct-2024 02:13, Premature supraventricular complexes are now Present ST elevation now present in Anterior leads ST no longer depressed in Lateral leads T wave inversion more evident in Anterior leads T wave inversion no longer evident in Lateral leads QT has shortened Referred By: Ольга Worthington Electronically Signed By: KELI BAIRD
--- NOTE | 2024-12-20 18:37 | ED.SOB ---
HPI - SOB/Dyspnea General Chief Complaint: Dyspnea Stated Complaint: SOB Time Seen by Provider: 12/20/24 19:02 Source: patient and family ( Son) Mode of arrival: ambulatory Limitations: no limitations History of Present Illness ED Provider: DR. Feliciano HPI Narrative: 79-year-old male was brought in by his son for evaluation of few days of generalized weakness, and exertion shortness of breath, patient otherwise declined fever, chills, coughing, CP. patient was seen at [facility] on 10/18 then was transferred to [facility] for non STEMI and CHF,he was admitted to [facility] for NSTEMI/diabetic ketoacidosis/COVID and was transferred to [facility]. He was appropriately treated for acute medical issues. Because of NSTEMI, he underwent further workup. Diagnostic catheterization was performed and that showed moderate LAD disease and severe stenosis of nondominant right right coronary artery. Recommended medical management. Echocardiogram had shown LV dysfunction. today's EKG is concern of ST elevation with Q-waves, initially STEMI protocol was activated patient was given a aspirin, atorvastatin, Brilinta and was started on heparin. case was discussed with Dr. Verdugo intervention utility systems repairer operator at [facility] who thinks the ST-elevation with a Q-wave is probably secondary to chronic left ventricular dysfunction. [facility] Related Data Home Medications ?Medication ?Instructions ?Recorded ?Confirmed blood-glucose meter #1 ea 11/17/20 12/07/24 aspirin 81 mg tablet,delayed 81 mg PO DAILY 03/15/24 12/07/24 release calcium carbonate 500 mg PO DAILY 11/08/24 12/07/24 insulin lispro 100 unit/mL 4 unit subcut TID 11/08/24 12/07/24 subcutaneous pen (Humalog KwikPen (U-100) Insulin) Previous Rx's ?Medication ?Instructions ?Recorded atorvastatin 80 mg tablet 80 mg PO DAILY #90 tabs 06/28/24 pen needle, diabetic 29 gauge x #100 ea 08/05/24 1/2 terazosin 5 mg capsule 5 mg PO BEDTIME 90 days #90 caps 09/18/24 insulin glargine 100 unit/mL (3 8 unit (0.08 mL) subcut QPM 90 11/08/24 mL) subcutaneous pen (Lantus days #7.2 mL Solostar U-100 Insulin) blood sugar diagnostic (FreeStyle #100 ea 11/15/24 Test strips) flash glucose scanning reader #1 ea 11/15/24 (FreeStyle Wale 2 [place]) flash glucose sensor (FreeStyle #1 ea 11/15/24 Wale 2 Sensor kit) levothyroxine 25 mcg tablet 25 mcg PO DAILY #90 tabs 11/19/24 (Synthroid) lancets 28 gauge #100 ea 11/26/24 calcitriol 0.5 mcg capsule 0.5 mcg PO DAILY #90 caps 11/27/24 linagliptin 5 mg tablet (Tradjenta) 5 mg PO DAILY #90 tabs 11/27/24 hydralazine 25 mg tablet 25 mg PO 3XD 90 days #270 tabs 12/07/24 hydroxyzine HCl 25 mg tablet 25 mg PO Q8H #90 tabs 12/07/24 isosorbide dinitrate 10 mg tablet 10 mg PO 3XD 90 days #270 tabs 12/07/24 trazodone 50 mg tablet 50 mg PO BEDTIME #90 tabs 12/07/24 metoprolol succinate 25 mg 75 mg (3 x 25 mg) PO DAILY 90 days 12/17/24 tablet,extended release 24 hr #270 tabs Allergies Allergy/AdvReac Type Severity Reaction Status Date / Time No Known Allergies Allergy Verified 12/20/24 18:43 [No Known Allergies*] Review of Systems Review of Systems: All other systems are reviewed and are negative Constitutional: Reports as per HPI and Reports no additional constitutional complaints Eyes: Reports as per HPI and Reports no additional eye complaints Reports system reviewed and no additional complaints, except as documented Cardiovascular: Reports as per HPI and Reports no additional cardiovascular complaints Respiratory: Reports as per HPI and Reports no additional respiratory complaints Gastrointestinal: Reports as per HPI and Reports no additional gastrointestinal complaints Genitourinary: Reports no additional female genitourinary complaints Musculoskeletal: Reports no additional musculoskeletal complaints Skin/Breast: Reports system reviewed and no additional complaints, except as docu Psychiatric: Reports no additional psychiatric complaints Endocrine: Reports no additional endocrine complaints Hematologic/Lymphatic: Reports no additional hematologic/lymphatic complaints Allergic/Immunologic: Reports no additional allergic/immunologic complaints Reports system reviewed and no additional complaints, except as documented and Reports Abnormal speech present PMFSH Past Medical History Medical History Heart attack Atherosclerotic cardiovascular disease CKD (chronic kidney disease) stage 5, GFR less than 15 ml/min Other and unspecified hyperlipidemia Essential hypertension Edema of both feet Prostate cancer Gout Hyperlipidemia Diabetes Surgical History History of hernia surgery Family History Family History Mother No problems noted. Father No problems noted. Social History Social History Housing: House Alcohol intake: former Patient Tobacco Use Status: Never used Tobacco Smoked in Last 30 Days: No e-Cigarette/Vaping Use: Never Used Second Hand Smoke Exposure: No Use of substances other than those prescribed or required for medical reasons: No Advance Directives: No Advance Directives Information Provided: Yes Do you have a plan to hurt others: No Plan service: No Current occupational status: retired Current occupation: rt handed Cognitive needs: No Hearing needs: No Vision needs: Yes (Glasses) Physical Exam Vital Signs: Vital Signs: Last Vital Signs Temp 98.3 F 12/20/24 21:05 Pulse 80 12/20/24 21:05 Resp 28 H 12/20/24 21:05 BP 155/76 H 12/20/24 21:05 Pulse Ox 99 12/20/24 21:05 O2 Del Method Nasal Cannula 12/20/24 21:05 O2 Flow Rate 2 12/20/24 21:05 BMI result Body Mass Index 22.7 Vital signs have been reviewed and appear to be correct. Blood pressure elevated. Heart rate normal. Respiratory rate normal. Temperature normal. Oxygen saturation normal. Appearance: Alert. Oriented X3. No acute distress. Head: Normal external exam. Normocephalic. Atraumatic. No Oneill signs noted. No raccoon eyes noted Eyes: PERRLA. EOMI. Conjunctiva and sclera normal. Eyelids normal. ENT: TM's Normal. Pharynx normal. Uvula midline. Moist mucous membranes. No trismus noted. No drooling noted. No muffled voice noted. Neck: Normal inspection. Neck supple. FROM. No adenopathy. Thyroid Normal. No meningeal signs. No neck mass noted. CVS: Normal heart rate and rhythm. Heart sound normal. No murmurs noted. Pulses normal throughout. Respiratory: No respiratory distress. Painless inspiration. Breath sounds normal. No wheezes/rales/rhonchi noted. Chest nontender. No accessory muscle usage noted or decreased air movement noted. Abdomen: Soft and nontender. Bowel sounds normal in all 4 quadrants. No distention noted. No organomegaly noted. No visible injury noted. Back: No CVA tenderness. Full range of motion noted. Skin: Skin warm and dry. Normal skin color. Normal skin turgor. No rashes/lesions/lacerations noted. Extremities: No lower extremity edema. Extremities exhibit normal range of motion. Extremities nontender. Neuro: Oriented X 3. Cranial nerve exam: II-XII are grossly intact No motor deficit. No sensory deficit. Reflexes normal. Course Course Course Narrative: This is an RME: Additional HPI, ROS, PE not included below will be deferred to primary provider. RME assessment and note performed by: Ольга Worthington PA-C This is a 79-year-old male, with a history of pulmonary edema, CKD stage 5, ischemic cardiomyopathy, diabetes, who presents emergency department for evaluation of headache, shortness for breath. Patient with bibasilar crackles noted, patient tachypneic in triage, speaking in full sentences. Family reporting that patient has had missed management of medications. Patient recently had a transfer to [facility] in October due to DKA, NSTEMI, CHF. Plan: Labs, EKG, chest x-ray, viral swabs, further ER evaluation needed. Reevaluation(s) Reevaluation #1: discussed the case and EKG findings with Dr. Verdugo who recommended to treat the patient for non STEMI, declined transferring the patient for further evaluation will discuss with Dr. Chang. ALISA. Heparin was held for elevated PTT. Time: 19:32 Reevaluation #2: the case was discussed with Dr. Chang who recommended to transfer the patient either to [facility] or [facility]. Patient will be transferred to [facility] accepted by Dr. Rodgers. Time: 21:23 Medications Administered Generic Name Dose Route Start Last Admin Trade Name Freq PRN Reason Stop Dose Admin Heparin Sodium/Sodium Chloride 25,000 unit in 250 mls @ 0 mls/hr 12/20/24 19:45 12/20/24 20:06 Heparin Sodium,Porcine/1/2ns IVCONT 0 units/kg/hr .Q0M CHERYL 0 mls/hr Titration Protocol Per Protocol Discontinued Medications Generic Name Dose Route Start Last Admin Trade Name Misha PRN Reason Stop Dose Admin Aspirin 81 mg 12/20/24 19:16 12/20/24 19:31 Aspirin Enteric Coated 81 Mg Tablet.Dr TAVERAS 12/20/24 19:17 81 mg ONCE ONE Administration Atorvastatin Calcium 80 mg 12/20/24 19:16 12/20/24 19:31 Atorvastatin Calcium 80 Mg Tablet PO 12/20/24 19:17 80 mg ONCE ONE Administration Heparin Sodium (Porcine) 4,000 unit 12/20/24 19:16 12/20/24 19:32 Heparin Sodium,Porcine 5,000 Unit/Ml Vial IVPUSH 12/20/24 19:17 4,000 unit ONCE ONE Administration Ticagrelor 180 mg 12/20/24 19:16 12/20/24 19:31 Ticagrelor 90 Mg Tablet PO 12/20/24 19:17 180 mg ONCE ONE Administration Medical Decision Making Differential Diagnosis Differential Diagnoses: The differential diagnosis associated with the presentation includes ( ACS, CHF, pneumonia, pneumothorax, pleural effusion, electrolyte derangement, severe anemia, renal failure.) Admission/Observation Consideration of admission/observation: Escalation of care including admission/observation considered Consult Healthcare Provider Management of the patient was discussed with: Facilities Maintenance Manager ( Dr. Chang. cardiology on-call, Dr. Verdugo intervention utility systems repairer operator at [facility], Dr. Rodgers accepting physician at [facility].) Lab Data MDM Lab Attestation statement: I reviewed the patient's lab results. 12/20/24 19:38 12/20/24 19:10 Labs: Lab Results 12/20/24 12/20/24 12/20/24 Range/Units 18:41 19:10 19:17 WBC 9.7 (4.8-10.8) X10*3/uL RBC 3.25 L (4.60-5.80) X10*6/uL Hgb 9.9 L (14.0-18.0) g/dl Hct 30.1 L (42.0-52.0) % MCV 92.6 (80.0-98.0) fL MCH 30.5 (27.0-33.0) pg MCHC 32.9 (31.0-36.0) g/dl RDW 14.9 (11.0-16.0) % Plt Count 214 (160-400) X10*3/uL MPV 11.5 (9.4-12.4) fL Immature Gran % (Auto) 0.3 (0.0-0.4) % Neut % (Auto) 79.5 H (45-73) % Lymph % (Auto) 8.3 L (20-40) % [place] % (Auto) 9.3 (2-11) % Eos % (Auto) 2.0 (0-4) % Baso % (Auto) 0.6 (0-2) % Lymph # (Auto) 0.8 L (1.2-4.9) X10*3/uL [place] # (Auto) 0.9 (0.1-1.2) X10*3/uL Eos # (Auto) 0.2 (0.0-0.4) X10*3/uL Baso # (Auto) 0.1 (0.0-0.2) X10*3/uL Abs Immat Gran (auto) 0.03 (0.00-0.03) X10*3/uL Absolute Neuts (auto) 7.7 (2.0-8.3) x10*3/uL Absolute Nucleated RBC 0.000 (0.0-0.012) X10*3/uL Nucleated RBC % (auto) 0.0 (0.0-0.2) /100WBC PT (10.9-12.4) SEC INR (0.9-1.1) aPTT Heparin Protocol (53-77.9) SEC VBG pH 7.34 (7.32-7.43) VBG pCO2 26 mmHg VBG pO2 41 mmHg VBG HCO3 14 L (22-26) mmol/L VBG O2 Saturation 70.0 % VBG Base Excess -10.0 mmol/L Sodium 140 (135-145) mmol/L Potassium 5.1 (3.3-5.1) mmol/L Chloride 115 H (96-108) mmol/L Carbon Dioxide 13 L (22-29) mmol/L Anion Gap 17 (12-20) BUN 91 H (9-16) mg/dL Creatinine 5.72 H* (0.5-1.4) mg/dL Estim Creat Clear Calc 9.5 Estimated GFR 10 POC Glucose 190 H (60-115) mg/dL Random Glucose 195 H (60-115) mg/dL Calcium 10.6 H D (8.4-10.2) mg/dL Magnesium 2.0 (1.6-2.6) mg/dL Total Bilirubin 0.6 (0.0-1.0) mg/dL Direct Bilirubin 0.2 (0.0-0.5) mg/dL AST 66 H (5-37) U/L ALT 25 (0-40) U/L Alkaline Phosphatase 57 (39-117) U/L Troponin I High Sens 78761.2 H* D (<3.5-35.0) ng/L B-Natriuretic Peptide 4958 H (<100) pg/mL Total Protein 7.4 (6.5-8.0) g/dL Albumin 3.9 (3.5-5.0) g/dL Beta-Hydroxybutyrate 0.34 H (0.02-0.27) mmol/L Influenza Type A (PCR) NEGATIVE (Negative) Influenza Type B (PCR) NEGATIVE (Negative) RSV RNA Qual (PCR) NEGATIVE (Negative) SARS-CoV-2 RNA (RT-PCR) NEGATIVE (Negative) 12/20/24 Range/Units 19:38 WBC 9.3 (4.8-10.8) X10*3/uL RBC 3.24 L (4.60-5.80) X10*6/uL Hgb 9.9 L (14.0-18.0) g/dl Hct 30.1 L (42.0-52.0) % MCV 92.9 (80.0-98.0) fL MCH 30.6 (27.0-33.0) pg MCHC 32.9 (31.0-36.0) g/dl RDW 14.9 (11.0-16.0) % Plt Count 207 (160-400) X10*3/uL MPV 11.4 (9.4-12.4) fL Immature Gran % (Auto) (0.0-0.4) % Neut % (Auto) (45-73) % Lymph % (Auto) (20-40) % [place] % (Auto) (2-11) % Eos % (Auto) (0-4) % Baso % (Auto) (0-2) % Lymph # (Auto) (1.2-4.9) X10*3/uL [place] # (Auto) (0.1-1.2) X10*3/uL Eos # (Auto) (0.0-0.4) X10*3/uL Baso # (Auto) (0.0-0.2) X10*3/uL Abs Immat Gran (auto) (0.00-0.03) X10*3/uL Absolute Neuts (auto) (2.0-8.3) x10*3/uL Absolute Nucleated RBC 0.000 (0.0-0.012) X10*3/uL Nucleated RBC % (auto) 0.0 (0.0-0.2) /100WBC PT 12.5 H (10.9-12.4) SEC INR 1.1 (0.9-1.1) aPTT Heparin Protocol 147.4 H* D (53-77.9) SEC VBG pH (7.32-7.43) VBG pCO2 mmHg VBG pO2 mmHg VBG HCO3 (22-26) mmol/L VBG O2 Saturation % VBG Base Excess mmol/L Sodium (135-145) mmol/L Potassium (3.3-5.1) mmol/L Chloride (96-108) mmol/L Carbon Dioxide (22-29) mmol/L Anion Gap (12-20) BUN (9-16) mg/dL Creatinine (0.5-1.4) mg/dL Estim Creat Clear Calc Estimated GFR POC Glucose (60-115) mg/dL Random Glucose (60-115) mg/dL Calcium (8.4-10.2) mg/dL Magnesium (1.6-2.6) mg/dL Total Bilirubin (0.0-1.0) mg/dL Direct Bilirubin (0.0-0.5) mg/dL AST (5-37) U/L ALT (0-40) U/L Alkaline Phosphatase (39-117) U/L Troponin I High Sens (<3.5-35.0) ng/L B-Natriuretic Peptide (<100) pg/mL Total Protein (6.5-8.0) g/dL Albumin (3.5-5.0) g/dL Beta-Hydroxybutyrate (0.02-0.27) mmol/L Influenza Type A (PCR) (Negative) Influenza Type B (PCR) (Negative) RSV RNA Qual (PCR) (Negative) SARS-CoV-2 RNA (RT-PCR) (Negative) Independent Interpretation I performed an independent interpretation of an: EKG and Plain X-Ray ( Chest: Borderline cardiomegaly with moderate CHF.) Radiology Impression Discussion of test interpretation with radiology: I have reviewed the radiologist's reading. Critical Care Time Critical Care Time Critical Care Time: Yes Total Critical Care Time: 60 Attestation: The patient was critically ill with a high probability of imminent or life-threatening deterioration. I spent greater than 30 minutes of discontinuous time evaluating the patient, delivering critical care at the bedside, discussing evaluating data with consultants. Critical care time does not include time spent performing separately billable procedures or teaching. Time spent performing critical care was 60 minutes. Discharge Plan Discharge Clinical Impression: Non-ST elevated myocardial infarction (non-STEMI) Patient Disposition: [facility] Transfer Details: To [facility] Prescriptions: No Action (DME) pen needle, diabetic 29 gauge x 1/2 needle See Rx Instructions subcut DAILY Qty: 100 1RF Rx Instructions: As directed 1x daily terazosin 5 mg capsule 5 mg PO BEDTIME 90 Days Qty: 90 1RF (DME) FreeStyle Test Strip See Rx Instructions .ROUTE .MEDSUPPLY Qty: 100 1RF Rx Instructions: As directed twice a day (DME) FreeStyle Wale 2 Sensor Kit See Rx Instructions .Route Qty: 1 0RF Rx Instructions: As directed (DME) FreeStyle Wale 2 [place] Misc See Rx Instructions .Route Qty: 1 0RF Rx Instructions: As directed levothyroxine [Synthroid] 25 mcg tablet 25 mcg PO DAILY Qty: 90 0RF (DME) lancets 28 gauge misc See Rx Instructions topical BID Qty: 100 5RF Rx Instructions: As directed Tradjenta 5 mg tablet 5 mg PO DAILY Qty: 90 1RF calcitriol 0.5 mcg capsule 0.5 mcg PO DAILY Qty: 90 1RF metoprolol succinate 25 mg tablet extended release 24 hr 75 mg PO DAILY 90 Days Qty: 270 1RF (DME) blood-glucose meter Kit See Rx Instructions .ROUTE BID Qty: 1 Rx Instructions: As directed atorvastatin 80 mg tablet 80 mg PO DAILY Qty: 90 3RF epoetin kelley 10,000 unit/mL solution 20,000 unit subcut ONCE Qty: 2 0RF insulin lispro [Humalog KwikPen Insulin] 100 unit/mL insulin pen 4 unit subcut TID insulin glargine [Lantus Solostar U-100 Insulin] 100 unit/mL (3 mL) insulin pen 8 unit subcut QPM 90 Days Qty: 7.2 3RF calcium carbonate 500 mg calcium (1,250 mg) tablet 500 mg PO DAILY trazodone 50 mg tablet 50 mg PO BEDTIME Qty: 90 1RF hydralazine 25 mg tablet 25 mg PO 3XD 90 Days Qty: 270 1RF isosorbide dinitrate 10 mg tablet 10 mg PO 3XD 90 Days Qty: 270 1RF hydroxyzine HCl 25 mg tablet 25 mg PO Q8H Qty: 90 1RF aspirin 81 mg tablet,delayed release (DR/EC) 81 mg PO DAILY Print Language: Yoruba
[2024-12-20 18:41] VITALS: BP 113/71; PULSE 85; RESP 16; TEMP 36.8; O2SAT 92; BMI 34.1
[2024-12-20 18:46] LABS: Glucose, Whole Blood 190 mg/dL (60-115)
[2024-12-20 19:15] LABS: MANUAL DIFF FLAG NO
[2024-12-20 19:17] LABS: Basophils Absolute Auto 0.1 X10*3/uL (0.0-0.2); Basophils Percent Auto 0.6 % (0-2); Eosinophils Absolute Auto 0.2 X10*3/uL (0.0-0.4); Hematocrit 30.1 % (42.0-52.0); Hemoglobin 9.9 g/dl (14.0-18.0); Imm Gran Abs Auto 0.03 X10*3/uL (0.00-0.03); Imm Gran Pct Auto 0.3 % (0.0-0.4); Lymphocytes Absolute Auto 0.8 X10*3/uL (1.2-4.9); Lymphocytes Percent Auto 8.3 % (20-40); Mean Corpuscular HGB Conc 32.9 g/dl (31.0-36.0); Mean Corpuscular Hemoglobin 30.5 pg (27.0-33.0); Mean Corpuscular Volume 92.6 fL (80.0-98.0); Mean Platelet Volume 11.5 fL (9.4-12.4); Monocytes Absolute Auto 0.9 X10*3/uL (0.1-1.2); Monocytes Percent Auto 9.3 % (2-11); Neutrophils Absolute Auto 7.7 x10*3/uL (2.0-8.3); Neutrophils Percent Auto 79.5 % (45-73); Platelet Count 214 X10*3/uL (160-400); Red Blood Count 3.25 X10*6/uL (4.60-5.80); Red Cell Distribution Width 14.9 % (11.0-16.0); White Blood Count 9.7 X10*3/uL (4.8-10.8)
[2024-12-20 19:20] VITALS: BP 144/67; PULSE 75; RESP 15; TEMP 36.8; O2SAT 93
[2024-12-20 19:20] LABS: Venous Blood Gas Refer to POC result
[2024-12-20 19:21] LABS: VBG HCO3 14 mmol/L (22-26); VBG pCO2 26 mmHg; VBG pH 7.34 (7.32-7.43); VBG pO2 41 mmHg
[2024-12-20 19:26] VITALS: BMI 22.7
[2024-12-20] MEDS: Aspirin Enteric Coated 81 MG TABLET.DR PO (19:31)
[2024-12-20] MEDS: Ticagrelor 90 MG TABLET 180 MG PO (19:31)
[2024-12-20] MEDS: Atorvastatin Calcium 80 MG TABLET PO (19:31)
[2024-12-20] MEDS: Heparin Sodium,Porcine 5,000 UNIT/ML VIAL 4000 UNIT IVPUSH (19:32)
[2024-12-20 19:34] LABS: Beta-Hydroxybutyrate 0.34 mmol/L (0.02-0.27)
[2024-12-20 19:42] LABS: Hematocrit 30.1 % (42.0-52.0); Hemoglobin 9.9 g/dl (14.0-18.0); Mean Corpuscular HGB Conc 32.9 g/dl (31.0-36.0); Mean Corpuscular Hemoglobin 30.6 pg (27.0-33.0); Mean Corpuscular Volume 92.9 fL (80.0-98.0); Mean Platelet Volume 11.4 fL (9.4-12.4); Platelet Count 207 X10*3/uL (160-400); Red Blood Count 3.24 X10*6/uL (4.60-5.80); Red Cell Distribution Width 14.9 % (11.0-16.0); White Blood Count 9.3 X10*3/uL (4.8-10.8)
[2024-12-20 19:44] LABS: Alanine Aminotransferase 25 U/L (0-40); Albumin Level 3.9 g/dL (3.5-5.0); Alkaline Phosphatase 57 U/L (39-117); Anion Gap 17 (12-20); Aspartate Amino Transferase 66 U/L (5-37); Bilirubin Direct 0.2 mg/dL (0.0-0.5); Bilirubin Total 0.6 mg/dL (0.0-1.0); Blood Urea Nitrogen 91 mg/dL (9-16); Calcium 10.6 mg/dL (8.4-10.2); Carbon Dioxide 13 mmol/L (22-29); Chloride 115 mmol/L (96-108); Creatinine Clr Calc Pharmacy 9.5; Estimated Glomerular Filt Rate 10; Glucose Random 195 mg/dL (60-115); Potassium 5.1 mmol/L (3.3-5.1); Sodium 140 mmol/L (135-145); Total Protein 7.4 g/dL (6.5-8.0)
[2024-12-20] MEDS: Heparin Sodium,Porcine/1/2NS 25,000 UNIT/250 ML IV.SOLN 7.9 UNIT IVCONT (19:44)
[2024-12-20 19:49] LABS: INTERNATIONAL NORM RATIO 1.1 (0.9-1.1); Prothrombin Time 12.5 SEC (10.9-12.4)
[2024-12-20 20:02] LABS: B Type Natriuretic Peptide 4958 pg/mL (<100)
[2024-12-20 20:03] LABS: PTT Heparin Drip 147.4 SEC (53-77.9)
[2024-12-20 20:11] LABS: Influenza A PCR NEGATIVE (Negative); Influenza B PCR NEGATIVE (Negative); Resp Syncy Virus RNA Qual PCR NEGATIVE (Negative); SARS COV2 PCR INHOUSE NEGATIVE (Negative)
[2024-12-20 21:05] VITALS: BP 155/76; PULSE 80; RESP 28; TEMP 36.8; O2SAT 99
[2024-12-20 21:46] LABS: PTT Heparin Drip 49.4 SEC (53-77.9)
[2024-12-20] MEDS: Heparin Sodium,Porcine 5,000 UNIT/ML VIAL 2600 UNIT IVPUSH (22:10)
[2024-12-20 22:34] VITALS: BP 144/78; PULSE 82; RESP 30; TEMP 36.8; O2SAT 97
== END 2024-12-20 22:36 | disposition short-term general hospital (02) ==
PROVIDERS: Physician Assistant Medical; Emergency Provider Emergency Medicine; PCP Internal Medicine
DX: I21.4 Non-ST elevation (NSTEMI) myocardial infarction (principal); R06.02 Shortness of breath; R53.1 Weakness; R07.89 Other chest pain; Z03.818 Encounter for observation for suspected exposure to other biological agents ruled out; Z79.899 Other long term (current) drug therapy
CPT/HCPCS: 0241U; 36415; 71045; 80048; 80076; 82010; 82803; 82947; 83735; 83880; 84484; 85025; 85027; 85610; 85730; 93005; 96365; 96375; 99285; J1644

== ENCOUNTER → 2024-12-20 18:33 | Outpatient (BNV) | payer OTHER, SELFPAY | PROVIDERS: Emergency Provider Emergency Medicine; PCP Internal Medicine; Visit Provider Internal Medicine | DX: I49.1 Atrial premature depolarization (principal); I21.29 ST elevation (STEMI) myocardial infarction involving other sites | CPT/HCPCS: 93010 ==

== ENCOUNTER → 2024-12-20 18:44 | Outpatient (BNV) | payer OTHER, SELFPAY | PROVIDERS: Emergency Provider Emergency Medicine; PCP Internal Medicine; Visit Provider Radiology Diagnostic Radiology | DX: R05.9 Cough, unspecified (principal) | CPT/HCPCS: 71045 ==